=== PATIENT | female | born 1950 | race African-American/Black ===

== ENCOUNTER 2023-03-24 12:39 | Emergency (ER) | payer OTHER ==
--- OUTSIDE RECORDS SUMMARY | 2023-03-24 12:55 | XMS REPORT | Continuity of Care Document ---
:1950 Author Organization [facility] t Address [address] [place] [address] Care Team Providers Name Role Phone Asked, No Pcp Primary Care Physician Unavailable Ángel Campoverde Attending Clinician Unavailable Erasmo Fay Attending Clinician Unavailable RANDALL Attending Clinician Unavailable Fransico Attending Clinician Unavailable Peng Dumont PA-C Attending Clinician [phone] PENG DUMONT Attending Clinician Unavailable Sara Almendarez Attending Clinician Unavailable Elisabet Waldron Attending Clinician Unavailable Dheeraj Loco Attending Clinician Unavailable [email or web address] Attending Clinician Unavailable Daniel Díaz Attending Clinician Unavailable Parish Rudolph Attending Clinician Unavailable Jameel Viera Attending Clinician Unavailable Britney Winchester Attending Clinician Unavailable Erasmo Fay Admitting Clinician Unavailable RANDALL Admitting Clinician Unavailable Fransico Admitting Clinician Unavailable [email or web address] Admitting Clinician Unavailable Parish Rudolph Admitting Clinician Unavailable Britney W[place]ster Admitting Clinician Unavailable Payers Payer Name Policy Type Policy Number Effective Date Expiration Date S josé [facility] [id number] (MEDICARE REPLACEMENT/ADVANTAGE - PPO) [facility] [id number] [facility] (MEDICARE REPLACEMENT/ADVANTAGE - HMO) Problems Condition Condition Condition Status Onset Resolution Last Treating Co mments Source Name Details Category Date Date Treatment Clinician Date No known No known Disease Metho di active active st problems problems Hospit [facility] Allergies, Adverse Reactions, Alerts Allergy Allergy Status Severity Reaction(s) Onset Inactive Treating Comm ents Source Name Type Date Date Clinician lisinopr DA Active [place] RASH-RAISED 2022-05 [facility] [place] 00:00: [facility] 00 are [place] codeine DA Active MO RASH-HIVES 2022-05 [facility] 1-06 [place] 00:00: [facility] 00 are [place] lisinopr DA Active SV ANGIOEDEMA 2021-05 [facility] 0-23 [place] 00:00: [facility] [address] codeine DA Active U DROWSINESS/v 2021-05 [facility] [place] 0[place] [facility] [address] lisinopr DA Active SV ANGIOEDEMA 2021-0 [facility] 4-10 [place] 00:00: [facility] 00 are [place] codeine DA Active U DROWSINESS/v 2021-0 [facility] [place] 4-10 [place] [facility] 00 [place] lisinopr DA Active U 2020-0 [facility] 6[facility]01 [place] 00:00: [facility] 00 are [place] codeine DA Active U 2020-0 [facility] 6-01 [place] 00:00: [facility] 00 are [place] lisinopr DA Active U UNKNOWN 2020-0 [facility] 6-01 [place] 00:00: [facility] 00 are [place] codeine DA Active U UNKNOWN 2020- [facility] 6-01 [place] 00:00: [facility] 00 are [place] lisinopr DA Active MO 2020-0 [facility] 4-12 [place] 00:[facility] 00 are [place] codeine DA Active MO 2020-0 [facility] 4-12 [place] 00:[facility]: [facility] 00 are [place] lisinopr DA Active MO RASH-RAISED 2020-0 [facility] 4-12 [place] 00:[facility]: [facility] [address] codeine DA Active MO RASH-HIVES 2020-0 [facility] 4-12 [place] 00:00: [facility] [address] lisinopr DA Active MO 2018- [facility] il -14 [place] 00:00: [facility] 00 are [place] codeine DA Active MO 2018- [facility] -14 [place] 00:00: [facility] 00 [place] lisinopr DA Active MO RASH-RAISED 2018- [facility] il -14 [place] 00:00: [facility] 00 are [place] codeine DA Active MO RASH-HIVES 2018- [facility] -14 [place] 00:00: [facility] 00 are [place] Codeine Propensi Active Anaphylaxis 2017-0 Me thodi ty to 8-25 [facility] adverse 00:00: Hospita reaction 00 l s to drug Lisinopr Propensi Active Anaphylaxis 2017-0 M ethodi il ty to 8-25 st adverse 00:00: Hospita reaction 00 l s to drug NO KNOWN Allergy Active [facility] Social History Social Habit Start Date Stop Date Quantity Comments Source Gender identity [facility] Sexual [facility] Alcohol intake 2023-03-02 2023-03-02 Ex-drinker [facility] es 00:00:00 00:00:00 (finding) [facility] History of Social 2023-03-02 2023-03-02 [facility] function 00:00:00 00:00:00 [facility] Tobacco use and 2017-12-24 2017-12-24 Smokeless [facility] exposure 00:00:00 00:00:00 tobacco non-user [facility] Sex Assigned At [birth year] [facility] 00:00:00 00:00:00 [facility] Smoking Status Start Date Stop Date Source Never smoked tobacco [facility] Medications Ordered Filled Start Stop Current Ordering Indication Dosage Frequency Signature Comments Components Source Medication Medication Date Date Medication? Clinician (SIG) Name Name isosorbide 2022-05 Yes 10mg QD [facility] (10 [facility] (ISMO,MONOK 00:00: mg total) M edical ET) 10 MG 00 by mouth Center tablet daily. isosorbide 2022-05 Yes 10mg QD Take [facility] mononitrate 0-28 tablet (10 [facility] (ISMO,MONOK 00:00: mg total) M edical ET) 10 MG 00 by mouth Center tablet daily. Lantus 2022-[address] [facility] [facility] Solostar 0-24 [facility] U-100 00:00: usly. Medical Insulin 100 00 Center unit/mL (3 mL) In Admog 2022-[address] [facility] [facility] SoloStar 0-24 subcutaneo L[facility] U-100 00:00: usly. Medical Insulin 100 00 Center unit/mL In Lantus 2022-[address] [facility] Solostar 0-24 subcutaneo Lukes U-100 00:00: usly. Medical Insulin 100 00 Center unit/mL (3 mL) In Admog 2022-[address] [facility] SoloStar 0-24 subcutaneo Lukes U-100 00:00: usly. Medical Insulin 100 00 Center unit/mL In escitalopra 2022-05 Yes 10mg QD Take [address] m oxalate 0-23 tablet (10 [facility] (LEXAPRO) 00:00: mg total) Med ical 10 MG 00 by mouth Center tablet daily. escitalopra 2022-05 Yes 10mg QD Take [address] m oxalate 0-23 tablet (10 [facility] (LEXAPRO) 00:00: mg total) Med ical 10 MG 00 by mouth Center tablet daily. metoprolol 2022-05 Yes 25mg QD Take 1 [facility] succinate 0-22 tablet (25 [facility] (TOPROL-XL) 00:00: mg total) M edical 25 MG 24 hr 00 by mouth Cent er tablet daily. metoprolol 2022-05 Yes 25mg QD Take 1 [facility] succinate 0-22 tablet (25 [facility] (TOPROL-XL) 00:00: mg total) M edical 25 MG 24 hr 00 by mouth Cent er tablet daily. clopidogreL 2022-05 Yes 75mg QD Take [address] (PLAVIX) 75 0-11 tablet (75 [facility] mg tablet 00:00: mg total) Med ical 00 by mouth Center daily. clopidogreL 2022-05 Yes 75mg QD Take [address] (PLAVIX) 75 0-11 tablet (75 [facility] mg tablet 00:00: mg total) Med ical 00 by mouth Center daily. ezetimibe 2022-05 Yes 10mg QD Take [address] (ZETIA) 10 0-06 tablet (10 [facility] mg tablet 00:00: mg total) Med ical 00 by mouth Center daily. ezetimibe 2022-05 Yes 10mg QD Take [address] (ZETIA) 10 0-06 tablet (10 [facility] mg tablet 00:00: mg total) Med ical 00 by mouth Center daily. No known 2018-0 No No known Metho di medications 12-[address] 01:11: s [facility] l No known 2018-0 No No known Metho di medications 12-[address] 01:11: [facility] l No known 2018-0 No No known Metho di medications 12-[address] 01:11: s [facility] l No known 2018-0 No No known Metho di medications 12-[address] 01:11: s [facility] l No known 2018-0 No No known Metho di medications 12-[address] 01:11: s [facility] l No known 2018-0 No No known Metho di medications 12-[address] 01:11: s [facility] l No known 2018-0 No No known Metho di medications 12-[address] 01:11: s [facility] l No known 2018-0 No No known Metho di medications 12-[address] 01:11: s [facility] l No known 2018-0 No No known Metho di medications 12-[address] 01:11: s [facility] l No known 2018-0 No No known Metho di medications 12-[address] 01:11: s [facility] l No known 2018-0 No No known Metho di medications 12-[address] 01:11: s [facility] l No known No Methodi medications [facility]osp[facility] l Vital Signs Vital Name Observation Time Observation Value Comments Source HEIGHT 2023-03-02 15:25:00 165.1 cm WEIGHT 2023-03-02 15:25:00 54.432 kg HEIGHT 2023-03-02 15:25:00 165.1 cm WEIGHT 2023-03-02 15:25:00 54.432 kg Systolic blood 2023-03-02 15:25:00 130 mm[Hg] [facility] Diastolic blood 2023-03-02 15:25:00 70 mm[Hg] [facility] Heart rate 2023-03-02 15:25:00 70 /min [facility] Body temperature 2023-03-02 15:25:00 36.06 Dilia [facility] Body height 2023-03-02 15:25:00 165.1 cm [facility] Body weight 2023-03-02 15:25:00 54.432 kg [facility] BMI 2023-03-02 15:25:00 19.97 kg/m2 [facility] Procedures Procedure Date / Time Performed Performing Clinician [facility] loraine [id number] 2023-03-10 00:00:00 DESNE [facility] [id number] 2023-03-10 00:00:00 DESNE [facility] [id number] 2023-03-10 00:00:00 DESNE [facility] [id number] 2023-03-10 00:00:00 DESNE [facility] [id number] 2023-03-10 00:00:00 DESNE [facility] [id number] 2023-03-10 00:00:00 DESNE [facility] [id number] 2023-03-08 00:00:00 DESNE [facility] [id number] 2023-03-08 00:00:00 DESNE [facility] [id number] 2023-03-08 00:00:00 DESNE [facility] [id number] 2023-03-08 00:00:00 DESNE [facility] [id number] 2023-03-08 00:00:00 DESNE [facility] [id number] 2023-03-08 00:00:00 DESNE [facility] [id number] 2023-03-08 00:00:00 DESNE [facility] XR FOOT 3 VIEWS LEFT 2023-03-02 17:42:00 Peng Dumont C HI [facility] [id number] 2022-03-12 00:00:00 RZAMI [facility] [id number] 2022-03-11 00:00:00 RZAMI [facility] [id number] 2022-01-31 00:00:00 RZAMI [facility] [id number] 2022-01-29 00:00:00 RZAMI [facility] [id number] 2022-01-29 00:00:00 RZAMI [facility] [id number] 2021-11-29 00:00:00 RUSFR [facility] [id number] 2021-04-07 00:00:00 RZAMI [facility] [id number] 2021-04-07 00:00:00 RZAMI [facility] [id number] 2020-09-30 00:00:00 ALAFA [facility] [id number] 2020-09-30 [id number] 2020-09-30 00:00:00 [facility] Plan of Care Planned Activity Planned Date Details Comments Source Future Scheduled 2024-03-[address] [facility] 00:[facility]00 [facility] Screening (12+) [code = Tobacco Cessation Counseling and Screening (12+)] Future Scheduled 2024-03-[address] [facility] 00:00:00 [facility] Cent[facility] r Screening (12+) [code = Tobacco Cessation Counseling and Screening (12+)] Future Scheduled 2023-03-[address] [facility] 00:00:00 measurement (procedure) [facility] [code = [id number]] Future Scheduled 2023-03-[address] [facility] 00:00:00 measurement (procedure) [facility] [code = [id number]] Future Scheduled 2022-12-30 Influenza Vaccine (#1[facility] [code = Influenza Medical Ce nter Vaccine (#1)] Future Scheduled 2022-12-30 Medicare IPPE (WELCOME [facility] 00:00:00 TO MEDICARE) [code = Medical Center Medicare IPPE (WELCOME TO MEDICARE)] Future Scheduled 2022-12-30 Influenza Vaccine (#1[facility] 00:00:00 [code = Influenza Medical Ce nter Vaccine (#1)] Future Scheduled 2022-12-30 Medicare IPPE (WELCOME [facility] 00:00:00 TO MEDICARE) [code = Medical Center Medicare IPPE (WELCOME TO MEDICARE)] Future Scheduled 2022-12-30 Influenza Vaccine (#1[facility] 00:00:00 [code = Influenza Medical Ce nter Vaccine (#1)] Future Scheduled 2022-12-30 Medicare IPPE (WELCOME [facility] 00:00:00 TO MEDICARE) [code = Medical Center Medicare IPPE (WELCOME TO MEDICARE)] Future Scheduled 2022-12-30 Influenza Vaccine (#1[facility] 00:00:00 [code = Influenza Medical Ce nter Vaccine (#1)] Future Scheduled 2022-12-30 Medicare IPPE (WELCOME [facility] 00:00:00 TO MEDICARE) [code = Medical Center Medicare IPPE (WELCOME TO MEDICARE)] Future Scheduled 2022-05-[address] [facility] 00:00:00 (12+) [code = Medical Center DEPRESSION SCREENING (12+)] Future Scheduled 2022-05-01 FALLS RISK SCREENING [facility] 00:00:00 [code = FALLS RISK Medical C enter SCREENING] Future Scheduled 2022-05-[address] [facility] 00:00:00 (12+) [code = Medical Center DEPRESSION SCREENING (12+)] Future Scheduled 2022-05-01 FALLS RISK SCREENING [facility] 00:00:00 [code = FALLS RISK Medical C enter SCREENING] Future Scheduled 2022-05-[address] [facility] 00:00:00 (12+) [code = Medical Center DEPRESSION SCREENING (12+)] Future Scheduled 2022-05-01 FALLS RISK SCREENING [facility] 00:00:00 [code = FALLS RISK Medical C enter SCREENING] Future Scheduled 2022-05-[address] [facility] 00:00:00 (12+) [code = Medical Center DEPRESSION SCREENING (12+)] Future Scheduled 2022-05-01 FALLS RISK SCREENING [facility] 00:00:00 [code = FALLS RISK Medical C enter SCREENING] Future Scheduled 2017 PNEUMOCOCCAL 65+ YRS ([address] [facility] 00:00:00 - PCV) [code = Medical Cente r PNEUMOCOCCAL 65+ YRS (1 - PCV)] Future Scheduled 2017 PNEUMOCOCCAL 65+ YRS ([address] [facility] 00:00:00 - PCV) [code = Medical Cente r PNEUMOCOCCAL 65+ YRS (1 - PCV)] Future Scheduled 2002 SHINGLES VACCINES ([address] [facility] 00:00[facility]00 [facility] Future Scheduled 2002 SHINGLES VACCINES ([address] [facility] 00:00:00 2) [code = SHINGLES [facility] VACCINES (1 of 2)] Future Scheduled 2002 SHINGLES VACCINES ([address] [facility] 00:00:00 2) [code = SHINGLES [facility] VACCINES (1 of 2)] Future Scheduled 2002 SHINGLES VACCINES ([address] [facility] 00:00:00 2) [code = SHINGLES [facility] VACCINES (1 of 2)] Future Scheduled 1971 DTAP/TDAP/TD [facility]ACCINES [facility] 00:00:00 (1 - Tdap) [code = Medical C enter DTAP/TDAP/TD VACCINES (1 - Tdap)] Future Scheduled 1971 DTAP/TDAP/TD VACCINES [facility] 00:00:00 (1 - Tdap) [code = Medical C enter DTAP/TDAP/TD VACCINES (1 - Tdap)] Future Scheduled 1971 DTAP/TDAP/TD VACCINES [facility] 00:00:00 (1 - Tdap) [code = Medical C enter DTAP/TDAP/TD VACCINES (1 - Tdap)] Future Scheduled 1971 DTAP/TDAP/TD VACCINES [facility] 00:00:00 (1 - Tdap) [code = Medical C enter DTAP/TDAP/TD VACCINES (1 - Tdap)] Future Scheduled 1970 HEPATITIS C [facility]CRE[facility]ING [facility]:00:00 [code = HEPATITIS C Medical Center SCREENING] Future Scheduled 1970 HEPATITIS C [facility] 00:00:00 [code = HEPATITIS C Medical Center SCREENING] Future Scheduled 1970 HEPATITIS C [facility] 00:00:00 [code = HEPATITIS C Medical Center SCREENING] Future Scheduled 1970 HEPATITIS C [facility] 00:00:00 [code = HEPATITIS C Medical Center SCREENING] Future Scheduled [address] [facility] 00:00:00 Counseling and Medical Cente r Screening (12+) [code = Tobacco Cessation Counseling and Screening (12+)] Future Scheduled [address] [facility] 00:00:00 Counseling and Medical Cente r Screening (12+) [code = Tobacco Cessation Counseling and Screening (12+)] Future Scheduled 1962 DIABETIC EYE EXAM [code [facility] 00:00:00 = DIABETIC EYE EXAM] Medical Center Future Scheduled [address] [facility] 00:[facility]:00 examination Medical Center (regime/therapy) [code = 917416275] Future Scheduled 1962 Urine screening for [facility] 00:00:00 protein (procedure) Medical Center [code = 995953735] Future Scheduled 1962 DIABETIC EYE EXAM [code [facility] 00:00:00 = DIABETIC EYE EXAM] Medical Center Future Scheduled [address] [facility] 00:00:00 examination Medical Center (regime/therapy) [code = 513108725] Future Scheduled 1962 Urine screening for [facility] 00:00:00 protein (procedure) Medical Center [code = 837405938] Future Scheduled 1958 PNEUMOCOCCAL 65+ YRS ([address] [facility] 00:00:00 - PCV) [code = Medical Cente r PNEUMOCOCCAL 65+ YRS (1 - PCV)] Future Scheduled 1958 PNEUMOCOCCAL 65+ YRS ([address] [facility] 00:00:00 - PCV) [code = Medical Cente r PNEUMOCOCCAL 65+ YRS (1 - PCV)] Future Scheduled 1952 COVID-19 VACCINE (#1) [facility] 00:[facility]:00 [code = COVID-[address] VACCINE (#1)] Future Scheduled 1950 COVID-19 VACCINE (#1) [facility] 00:00:00 [code = COVID-[address] VACCINE (#1)] Future Scheduled 1950 COVID-19 VACCINE (#1) [facility] 00:00:00 [code = COVID-[address] VACCINE (#1)] Future Scheduled 1950 COVID-19 VACCINE (#1[facility] 00:00:00 [code = COVID-[address] VACCINE (#1)] Future Scheduled 1952 Screening for malignant [facility] 00:00:00 neoplasm of breast Medical C enter (procedure) [code = 520378676] Future Scheduled 1952 CT Colonography (combo) [facility] 00:00:00 [code = CT Colonography [facility] (combo)] Future Scheduled 1952 Screening for malignant [facility] 00:00:00 neoplasm of breast Medical C enter (procedure) [code = 873473877] Future Scheduled 1952 CT Colonography (combo) [facility] 00:00:00 [code = CT Colonography [facility] (combo)] Future Scheduled 1952 Screening for malignant [facility] 00:00:00 neoplasm of colon Medical Ce nter (procedure) [code = 462658365] Future Scheduled 1952 Screening for malignant [facility] 00:00:00 neoplasm of colon Medical Ce nter (procedure) [code = 986531173] Future Scheduled 1952 DXA SCAN [code = DXA [facility] 00:00:00 SCAN] [facility] Future Scheduled 1952 Screening for malignant [facility] 00:00:00 neoplasm of colon Medical Ce nter (procedure) [code = 947920652] Future Scheduled 1952 Screening for malignant [facility] 00:00:00 neoplasm of colon Medical Ce nter (procedure) [code = 959214221] Future Scheduled 1950 Sigmoidoscopy [code = [facility]] [facility] Future Scheduled 1952 Screening for malignant [facility] 00:00:00 neoplasm of colon Medical Ce nter (procedure) [code = 234360842] Future Scheduled 1952 Screening for malignant [facility] 00:00:00 neoplasm of colon Medical Ce nter (procedure) [code = 313989568] Future Scheduled 1952 DXA SCAN [code = DXA [facility] 00:00:00 SCAN] [facility] Future Scheduled 1952 Screening for malignant [facility] 00:00:00 neoplasm of breast Medical C enter (procedure) [code = 804802996] Future Scheduled 1952 CT Colonography (combo) [facility] 00:00:00 [code = CT Colonography [facility] (combo)] Future Scheduled 1952 Screening for malignant [facility] 00:00:00 neoplasm of colon Medical Ce nter (procedure) [code = 542270211] Future Scheduled 1952 Screening for malignant [facility] 00:00:00 neoplasm of colon Medical Ce nter (procedure) [code = 274531907] Future Scheduled 1952 DXA SCAN [code = DXA [facility] 00:00:00 SCAN] [facility] Future Scheduled 1952 Screening for malignant [facility] 00:00:00 neoplasm of colon Medical Ce nter (procedure) [code = 854706043] Future Scheduled 1952 Screening for malignant [facility] 00:00:00 neoplasm of colon Medical Ce nter (procedure) [code = 156833783] Future Scheduled 1952 Sigmoidoscopy [code = [facility] S[facility]oscopy] [facility] Future Scheduled 1952 Screening for malignant [facility] 00:00:00 neoplasm of colon Medical Ce nter (procedure) [code = 348635315] Future Scheduled 1952 Screening for malignant [facility] 00:00:00 neoplasm of colon Medical Ce nter (procedure) [code = 332776193] Future Scheduled 1952 Sigmoidoscopy [code = [facility] 00:[facility] Sigmoidoscopy] Medical Cente r Future Scheduled 1952 Screening for malignant [facility] 00:00:00 neoplasm of breast Medical C enter (procedure) [code = 883739360] Future Scheduled 1952 CT Colonography (combo) [facility] 00:00:00 [code = CT Colonography [facility] (combo)] Future Scheduled 1952 Screening for malignant [facility] 00:00:00 neoplasm of colon Medical Ce nter (procedure) [code = 576425151] Future Scheduled 1952 Screening for malignant [facility] 00:00:00 neoplasm of colon Medical Ce nter (procedure) [code = 484590844] Future Scheduled 1952 DXA SCAN [code = DXA [facility] 00:00:00 SCAN] [facility] Future Scheduled 1952 Screening for malignant [facility] 00:00:00 neoplasm of colon Medical Ce nter (procedure) [code = 700251254] Future Scheduled 1952 Screening for malignant [facility] 00:00:00 neoplasm of colon Medical Ce nter (procedure) [code = 875874426] Future Scheduled 1952 Sigmoidoscopy [code = [facility] 00:[facility] Sigmoidoscopy] Medical Cente r Encounters Start End Encounter Admission Attending Care Care Encounter Source Date/Time Date/Time Type Type Clinicians Facility Department ID 2023-03-01 Inpatient Ángel Garcia [facility] INF [id number] [facility] 11:00:00 57 [facility] 2020-08-10 Inpatient [facility] [id number] [facility] 12:44:02 21 [facility] 2019-07-18 Inpatient [facility] JIMENEZ [id number] [facility] 20:50:00 92 [facility] 2023-03-062023-03-11 Inpatient EM Rjocelynnsnicki, BOB TELE [id number] [facility] 21:30:00 10:49:00 Erasmo 24 [facility] are [facility] 2023-03-09 2023-03-09 Outpatient DEBROECK_J_ VFP VFP [id number] [facility] 00:00:00 00:00:00 DANIELA [id number] Family Practic e 2023-03-08 2023-03-08 Outpatient AO_Mills_Br AOSM AOSM [id number] [place] 00:00:00 00:00:00 Ryan [id number] [facility] 2023-03-08 2023-03-08 Outpatient AO_Mills_Br AOSM AOSM [id number] [place] 00:00:00 00:00:00 Ryan [id number] [facility] 2023-03-02 2023-03-02 [id number] [facility] 15:30:00 16:22:[address] [facility] 2023-03-02 2023-03-02 Office [facility] [id number] 15:30:00 16:22:[address] [facility] 2023-03-01 2023-03-01 [facility] [id number] 00:[facility]:00 00:00:00 [facility] 2023-02-28 2023-02-28 Outpatient Ángel Garcia BOB INF [id number] [facility] 09:54:00 00:00:00 22 [facility] 2023-02-10 2023-02-10 Emergency EM Erickson, BOB GAONA [id number] [facility] 20:11:00 23:04:00 Sara 96 [facility] 2022-09-01 2022-09-01 Emergency EM Emetarom, BOB GAONA [id number] [facility] 17:43:00 22:18:00 Elisabet 92 [facility] are [facility] 2022-08-01 2022-08-04 Inpatient EM Rzasnicki, BOB GANNON [id number] [facility] 11:08:00 17:08:00 Erasmo Mock [facility] 2022-07-04 2022-07-04 Emergency EM Dheeraj Loco BOB GAONA [id number] [facility] 02:41:00 08:51:00 43 [facility] 2022-07-03 2022-07-03 Emergency EM Dheeraj Loco BOB GAONA [id number] [facility] 06:37:00 15:29:00 42 [facility] are [facility] 2022-06-09 2022-06-09 Emergency EM Dheeraj Loco BOB GAONA [id number] [facility] 21:37:00 22:55:00 07 [facility] 2022-06-07 2022-06-07 Outpatient [id number] DISP [id number] [id number] Dispatc 00:00:00 00:00:00 [id number] [facility] 2022-05-19 2022-05-21 Inpatient EM Rzasnicki, BOB TELE [id number] [facility] 04:32:00 17:10:00 Erasmo Medrano [facility] 2022-04-18 2022-04-18 Outpatient EricksonPORFIRIONW REF [id number] [facility] 14:46:00 14:46:00 Sara 93 [facility] are [facility] 2022-04-18 2022-04-18 Emergency EM EricksonBOB [id number] [facility] 02:15:00 07:42:00 Sara 64 [facility] 2022-04-08 2022-04-08 Outpatient DEBROECK_J VFP VFP [id number] [facility] 00:00:00 00:00:00 [id number] [facility] 2022-03-18 2022-03-18 Outpatient DEBROECK_J VFP VFP [id number] [facility] 00:00:00 00:00:00 [id number] Family Practic e 2022-03-11 2022-03-14 Inpatient EM Rzasnicki, HCANC TELE [id number] [facility] 13:29:00 14:43:00 Erasmo 52 [facility] 2022-02-20 2022-02-22 Inpatient EM Rzasnicki, HCANC TELE [id number] [facility] 14:30:00 19:11:00 Erasmo 56 [facility] 2022-01-29 2022-02-08 Inpatient EM Rzasnicki, HCANC TELE [id number] [facility] 17:09:00 19:56:00 Erasmo 32 [facility] are [facility] 2022-01-30 2022-01-30 Outpatient Rzasnicki, HCANW REF [id number] [facility] 16:53:00 16:53:00 Erasmo 60 [facility] are [facility] 2021-11-29 2021-11-30 Inpatient EM Rzasnicki, HCANC MAS [id number] [facility] 01:31:00 11:09:00 Erasmo 06 [facility] 2021-11-29 2021-11-30 Inpatient EM Rzasnicki, HCANC MAS [id number] [facility] 01:31:00 11:09:00 Erasmo [id number] [facility] 2021-11-28 2021-11-28 Outpatient Díaz, Daniel HCANW REF [id number] [facility] 16:55:00 16:55:00 31 [facility] are [facility] 2021-11-28 2021-11-28 Emergency EM Díaz, Daniel HCANC [facility] [id number] [facility] 11:40:00 11:40:00 [id number] [facility] 2021-11-06 2021-11-09 Inpatient EM Rzasnicki, HCANC TELE [id number] [facility] 10:39:00 15:43:00 Erasmo 46 [facility] 2021-11-06 2021-11-09 Inpatient EM Rzasnicki, HCANC TELE [id number] [facility] 10:39:00 15:43:00 Erasmo [id number] [facility] 2021-10-01 2021-10-03 Inpatient EM Rzasnicki, [facility] TELE [id number] [facility] 22:02:00 16:45:00 Erasmo 95 [facility] 2021-10-01 2021-10-03 Inpatient EM Rzasnicki, [facility] TELE [id number] [facility] 22:02:00 16:45:00 Erasmo [id number] [facility] 2021-08-07 2021-08-09 Inpatient EM Ronni, Parish [facility] TELE [id number] [facility] 20:33:00 16:30:00 24 [facility] 2021-04-06 2021-04-09 Inpatient EM Rzasnicki, [facility] TELE [id number] [facility] 15:03:00 14:08:00 Erasmo 96 [facility] 2020-12-22 2020-12-22 Emergency EM Aylin, [facility] JIMENEZ [id number] [facility] 11:18:00 15:26:00 Jameel 91 [facility] 2020-09-29 2020-10-02 Inpatient EM Ranulfo, [facility] TELE [id number] [facility] 01:16:00 16:52:00 Rati 78 [facility] Results Test Description Test Time Test Comments Results Result Comments Source COMPREHENSIVE METABOLIC PANEL 2023-03-11 10:17:00 Test Item Value Reference Range Interpretation Comme nts SODIUM (test code = NA) 133 mmol/L 135-145 L POTASSIUM (test code = K) 3.8 mmol/L 3.5-5.1 N CHLORIDE (test code = CL) 101 mmol/L 98-107 N CARBON DIOXIDE (test code = 28 mmol/L 21-32 N CO2) ANION GAP (test code = GAP) 7.8 2.0-16.0 N GLUCOSE (test code = GLU) 164 mg/dL 65-99 H BLOOD UREA NITROGEN (test 19 mg/dL 4-23 N code = BUN) GLOMERULAR FILTRATION RATE 54 ml/min >60 L T he Glomerular Filtration Rate is a (test code = GFR) calculated parameterbased on serum Creatinine, pat ient age and sex. GFR valuesless than 60 mL/min/1.73 square meters a re indicative ofChronic Kidne y Disease. Values less than 15 mL /min/1.73square meters indicate Kidney failure. The calculation for GFR is based on the CKD-EPI (202) calculation. This formulais race indifferent and is the recommended formula for GFRby the National [facility] for Adults.The GFR will not calculate if the sex is u nknown or if thepatient's ag e is <18 years. CREATININE (test code = 1.1 mg/dL 0.6-1.5 N CREAT) BUN/CREATININE RATIO (test 17.3 12.0-20.0 N code = BUN/CREA) TOTAL PROTEIN (test code = 7.9 g/dL 6.4-8.2 N PROT) ALBUMIN (test code = ALB) 2.3 g/dL 3.4-5.0 L CALCIUM (test code = CA) 8.6 mg/dL 8.5-10.1 N BILIRUBIN TOTAL (test code 0.4 mg/dL 0.2-1.2 N U se of this assay is not = BILT) recommended for patients undergoingtreat ment with Eltrombopag due to the potential for falselyelev ated results. SGOT/AST (test code = AST) 14 U/L 15-37 L SGPT/ALT (test code = ALT) 15 U/L 6-50 N ALKALINE PHOSPHATASE (test 89 U/L 45-117 N code = ALKP) VANCOMYCIN [id number] 10:17:00 Test Item Value Reference Range Interpretation Comments VANCOMYCIN TROUGH (test code = 19.4 ug/mL 10.0-20.0 N VANCT) [id number] 09:56:00 Test Item Value Reference Range Interpretation Comments GLUBED (test 158 mg/dL 70-105 H Intravenous adm inistration code = GLUBED) of N-acetylcy steine which resultsin blood concentrations >5 mg/dL will cause overestim ationof blood glucose results . Do not use during intraven ousinfusion of N'acetylcyst eine. CBC W/AUTO [id number] 09:18:00 Test Item Value Reference Range Interpretation Comments WHITE BLOOD CELL (test code = 7.2 10 3/uL 4.5-11.0 N WBC) RED BLOOD CELL (test code = 3.34 10 6/uL 3.50-5.50 L RBC) HEMOGLOBIN (test code = HGB) 10.1 g/dL 12.0-16.0 L HEMATOCRIT (test code = HCT) 30.0 % 37.0-55.0 L MEAN CELL VOLUME (test code = 90 fL 81-102 N MCV) MEAN CELL HGB (test code = 30.2 pg 26.0-34.0 N MCH) MEAN CELL HGB CONCENTRATION 33.7 g/dL 31.0-37.0 N (test code = MCHC) RED CELL DISTRIBUTION WIDTH 14.1 % 11.6-14.4 N (test code = RDW) PLATELET COUNT (test code = 257 10 3/uL 150-400 N PLT) MEAN PLATELET VOLUME (test 11.0 fL 9.0-12.6 N code = MPV) NEUTROPHIL % (test code = NT%) 69.0 % 33.0-76.0 N IMMATURE GRANULOCYTE % (test 0.4 % 0.0-1.0 N code = IG%) LYMPHOCYTE % (test code = LY%) 15.0 % 14.0-56.4 N MONOCYTE % (test code = MO%) 10.5 % 0.0-12.9 N EOSINOPHIL % (test code = EO%) 4.4 % 0.0-7.0 N BASOPHIL % (test code = BA%) 0.7 % 0-2.0 N NUCLEATED RBC % (test code = 0.0 % 0-0.2 N NRBC%) NEUTROPHIL # (test code = NT#) 4.97 10 3/uL 1.5-7.0 N IMMATURE GRANULOCYTE # (test 0.030 x10 3/uL 0.000-0.100 N code = IG#) LYMPHOCYTE # (test code = LY#) 1.08 10 3/uL 1.50-4.00 L MONOCYTE # (test code = MO#) 0.76 10 3/uL 0.20-0.80 N EOSINOPHIL # (test code = EO#) 0.32 10 3/uL 0.0-0.5 N BASOPHIL # (test code = BA#) 0.05 10 3/uL 0.0-0.1 N NUCLEATED RBC # (test code = 0.000 10 3/uL 0.000-0.012 N NRBC#) [id number] 08:06:00 Test Item Value Reference Range Interpretation Comments GLUBED (test 168 mg/dL 70-105 H Intravenous adm inistration code = GLUBED) of N-acetylcy steine which resultsin blood concentrations >5 mg/dL will cause overestim ationof blood glucose results . Do not use during intraven ousinfusion of N'acetylcyst eine. BASIC METABOLIC [id number] 07:20:00 Test Item Value Reference Range Interpretation Comments SODIUM (test code = 133 mmol/L 135-145 L NA) POTASSIUM (test code 3.8 mmol/L 3.5-5.1 N = K) CHLORIDE (test code 101 mmol/L 98-107 N = CL) CARBON DIOXIDE (test 28 mmol/L 21-32 N code = CO2) ANION GAP (test code 7.8 2.0-16.0 N = GAP) GLUCOSE (test code = 175 mg/dL 65-99 H GLU) BLOOD UREA NITROGEN 19 mg/dL 4-23 N (test code = BUN) GLOMERULAR 49 ml/min >60 L The Glomerular FILTRATION RATE Filtration R ate is a (test code = GFR) calculated parameterbased on serum Creatinine, pat ient age and sex. GFR va luesless than 60 mL/min/ 1.73 square meters a re indicative ofCh ronic Kidney Disease. Values less than 15 mL/min/1.73squa re meters indicate Kidney failure. The calculation for GFR is based on the CK D-EPI (2020) calculat ion. This formulais race indifferent and is the recommended for samantha for GFRby the Nat n[facility] on for Adults.The GFR will not calculate if th e sex is unknown or if thepatient's ag e is <18 years. CREATININE (test 1.2 mg/dL 0.6-1.5 N code = CREAT) BUN/CREATININE RATIO 15.8 12.0-20.0 N (test code = BUN/CREA) CALCIUM (test code = 8.8 mg/dL 8.5-10.1 N CA) [id number] 21:04:00 Test Item Value Reference Range Interpretation Comments GLUBED (test 146 mg/dL 70-105 H Intravenous adm inistration code = GLUBED) of N-acetylcy steine which resultsin blood concentrations >5 mg/dL will cause overestim ationof blood glucose results . Do not use during intraven ousinfusion of N'acetylcyst eine. [id number] 12:53:00 Test Item Value Reference Range Interpretation Comments GLUBED (test 147 mg/dL 70-105 H Intravenous adm inistration code = GLUBED) of N-acetylcy steine which resultsin blood concentrations >5 mg/dL will cause overestim ationof blood glucose results . Do not use during intraven ousinfusion of N'acetylcyst eine. [id number] 12:34:00 Test Item Value Reference Range Interpretation Comments GLUBED (test 53 mg/dL 70-105 L Intravenous adm inistration of code = GLUBED) N-acetylcyste ine which resultsin blood concentrations >5 mg/dL will cause overestim ationof blood glucose results . Do not use during intraven ousinfusion of N'acetylcystein e. [id number] 11:16:00 Test Item Value Reference Range Interpretation Comments GLUBED (test 62 mg/dL 70-105 L Intravenous adm inistration of code = GLUBED) N-acetylcyste ine which resultsin blood concentrations >5 mg/dL will cause overestim ationof blood glucose results . Do not use during intraven ousinfusion of N'acetylcystein e. [id number] 07:54:00 Test Item Value Reference Range Interpretation Comments GLUBED (test 151 mg/dL 70-105 H Intravenous adm inistration code = GLUBED) of N-acetylcy steine which resultsin blood concentrations >5 mg/dL will cause overestim ationof blood glucose results . Do not use during intraven ousinfusion of N'acetylcyst eine. BASIC METABOLIC [id number] 06:21:00 Test Item Value Reference Range Interpretation Comments SODIUM (test code = 131 mmol/L 135-145 L NA) POTASSIUM (test code 3.8 mmol/L 3.5-5.1 N = K) CHLORIDE (test code 99 mmol/L 98-107 N = CL) CARBON DIOXIDE (test 26 mmol/L 21-32 N code = CO2) ANION GAP (test code 9.8 2.0-16.0 N = GAP) GLUCOSE (test code = 267 mg/dL 65-99 H GLU) BLOOD UREA NITROGEN 22 mg/dL 4-23 N (test code = BUN) GLOMERULAR 44 ml/min >60 L The Glomerular FILTRATION RATE Filtration R ate is a (test code = GFR) calculated parameterbased on serum Creatinine, pat ient age and sex. GFR va luesless than 60 mL/min/ 1.73 square meters a re indicative ofCh ronic Kidney Disease. Values less than 15 mL/min/1.73squa re meters indicate Kidney failure. The calculation for GFR is based on the CK D-EPI (2020) calculat ion. This formulais race indifferent and is the recommended for samantha for GFRby the Nat[facility] n[facility]ati on for Adults.The GFR will not calculate if th e sex is unknown or if thepatient's ag e is <18 years. CREATININE (test 1.3 mg/dL 0.6-1.5 N code = CREAT) BUN/CREATININE RATIO 16.9 12.0-20.0 N (test code = BUN/CREA) CALCIUM (test code = 8.6 mg/dL 8.5-10.1 N CA) [id number] 06:21:00 Test Item Value Reference Range Interpretation Comments VANCOMYCIN (test code = VANCO) 8.7 ug/mL 5.0-40.0 N [id number] 05:32:00 Test Item Value Reference Range Interpretation Comments GLUBED (test 221 mg/dL 70-105 H Intravenous adm inistration code = GLUBED) of N-acetylcy steine which resultsin blood concentrations >5 mg/dL will cause overestim ationof blood glucose results . Do not use during intraven ousinfusion of N'acetylcyst eine. [id number] 00:22:00 Test Item Value Reference Range Interpretation Comments GLUBED (test 436 mg/dL 70-105 HH CRITICAL RESULT - TESTING code = GLUBED) PERFORMED BY PRIMARY CAREGIVERIntrav enous administration of N-acetylcystein e which resultsin blood concentrations >5 mg/dL will cause overestim ationof blood glucose results . Do not use during intraven ousinfusion of N'acetylcystein e. [id number] 23:55:00 Test Item Value Reference Range Interpretation Comments GLUBED (test 469 mg/dL 70-105 HH CRITICAL RESULT - TESTING code = GLUBED) PERFORMED BY PRIMARY CAREGIVERIntrav enous administration of N-acetylcystein e which resultsin blood concentrations >5 mg/dL will cause overestim ationof blood glucose results . Do not use during intraven ousinfusion of N'acetylcystein e. [id number] 19:50:00 Test Item Value Reference Range Interpretation Comments GLUBED (test 287 mg/dL 70-105 H Intravenous adm inistration code = GLUBED) of N-acetylcy steine which resultsin blood concentrations >5 mg/dL will cause overestim ationof blood glucose results . Do not use during intraven ousinfusion of N'acetylcyst eine. [id number] 16:21:00 Test Item Value Reference Range Interpretation Comments GLUBED (test 321 mg/dL 70-105 H Intravenous adm inistration code = GLUBED) of N-acetylcy steine which resultsin blood concentrations >5 mg/dL will cause overestim ationof blood glucose results . Do not use during intraven ousinfusion of N'acetylcyst eine. VANCOMYCIN [id number] 16:13:00 Test Item Value Reference Range Interpretation Comments VANCOMYCIN TROUGH (test code = 14.8 ug/mL 10.0-20.0 N VANCT) [id number] 12:06:00 Test Item Value Reference Range Interpretation Comments GLUBED (test 217 mg/dL 70-105 H Intravenous adm inistration code = GLUBED) of N-acetylcy steine which resultsin blood concentrations >5 mg/dL will cause overestim ationof blood glucose results . Do not use during intraven ousinfusion of N'acetylcyst eine. [id number] 10:11:00 Test Item Value Reference Range Interpretation Comments GLUBED (test 106 mg/dL 70-105 H Intravenous adm inistration code = GLUBED) of N-acetylcy steine which resultsin blood concentrations >5 mg/dL will cause overestim ationof blood glucose results . Do not use during intraven ousinfusion of N'acetylcyst eine. [id number] 07:45:00 Test Item Value Reference Range Interpretation Comments GLUBED (test 116 mg/dL 70-105 H Intravenous adm inistration code = GLUBED) of N-acetylcy steine which resultsin blood concentrations >5 mg/dL will cause overestim ationof blood glucose results . Do not use during intraven ousinfusion of N'acetylcyst eine. COMPREHENSIVE METABOLIC [id number] 07:29:00 Test Item Value Reference Range Interpretation Comments SODIUM (test code 134 mmol/L 135-145 L = NA) POTASSIUM (test 3.8 mmol/L 3.5-5.1 N code = K) CHLORIDE (test 102 mmol/L 98-107 N code = CL) CARBON DIOXIDE 26 mmol/L 21-32 N (test code = CO2) ANION GAP (test 9.8 2.0-16.0 N code = GAP) GLUCOSE (test 137 mg/dL 65-99 H code = GLU) BLOOD UREA 15 mg/dL 4-23 N NITROGEN (test code = BUN) GLOMERULAR >=60 max >60 The Glomerular FILTRATION RATE estimate Filtration R ate is a (test code = GFR) ml/min calculated parameterbased on serum Creatinine, pat ient age and sex. GFR va luesless than 60 mL/min/ 1.73 square meters a re indicative ofCh ronic Kidney Disease. Values less than 15 mL/min/1.73squa re meters indicate Kidney failure. The calculation forGFR is based on the CKD-EPI (2020) calculat ion. This formulais race indifferent and is the recommended for samantha for GFRby the [facility] on for Adults.The GFR will not calculate if th e sex is unknown or if thepatient's ag e is <18 years. CREATININE (test 1.0 mg/dL 0.6-1.5 N code = CREAT) BUN/CREATININE 15.0 12.0-20.0 N RATIO (test code = BUN/CREA) TOTAL PROTEIN 7.7 g/dL 6.4-8.2 N (test code = PROT) ALBUMIN (test 2.4 g/dL 3.4-5.0 L code = ALB) CALCIUM (test 8.5 mg/dL 8.5-10.1 N code = CA) BILIRUBIN TOTAL 0.9 mg/dL 0.2-1.2 N Use of this assay is not (test code = recommended for patients BILT) undergoingtreat ment with Eltrombopag due to the potential for falselyelevated results. SGOT/AST (test 23 U/L 15-37 N code = AST) SGPT/ALT (test 15 U/L 6-50 N code = ALT) ALKALINE 88 U/L 45-117 N PHOSPHATASE (test code = ALKP) CBC W/AUTO [id number] 07:11:00 Test Item Value Reference Range Interpretation Comments WHITE BLOOD CELL (test code = 8.0 10 3/uL 4.5-11.0 N WBC) RED BLOOD CELL (test code = 3.40 10 6/uL 3.50-5.50 L RBC) HEMOGLOBIN (test code = HGB) 10.2 g/dL 12.0-16.0 L HEMATOCRIT (test code = HCT) 30.7 % 37.0-55.0 L MEAN CELL VOLUME (test code = 90 fL 81-102 N MCV) MEAN CELL HGB (test code = 30.0 pg 26.0-34.0 N MCH) MEAN CELL HGB CONCENTRATION 33.2 g/dL 31.0-37.0 N (test code = MCHC) RED CELL DISTRIBUTION WIDTH 14.3 % 11.6-14.4 N (test code = RDW) PLATELET COUNT (test code = 260 10 3/uL 150-400 N PLT) MEAN PLATELET VOLUME (test 10.6 fL 9.0-12.6 N code = MPV) NEUTROPHIL % (test code = NT%) 72.7 % 33.0-76.0 N IMMATURE GRANULOCYTE % (test 0.5 % 0.0-1.0 N code = IG%) LYMPHOCYTE % (test code = LY%) 14.6 % 14.0-56.4 N MONOCYTE % (test code = MO%) 9.9 % 0.0-12.9 N EOSINOPHIL % (test code = EO%) 1.8 % 0.0-7.0 N BASOPHIL % (test code = BA%) 0.5 % 0-2.0 N NUCLEATED RBC % (test code = 0.0 % 0-0.2 N NRBC%) NEUTROPHIL # (test code = NT#) 5.80 10 3/uL 1.5-7.0 N IMMATURE GRANULOCYTE # (test 0.040 x10 3/uL 0.000-0.100 N code = IG#) LYMPHOCYTE # (test code = LY#) 1.16 10 3/uL 1.50-4.00 L MONOCYTE # (test code = MO#) 0.79 10 3/uL 0.20-0.80 N EOSINOPHIL # (test code = EO#) 0.14 10 3/uL 0.0-0.5 N BASOPHIL # (test code = BA#) 0.04 10 3/uL 0.0-0.1 N NUCLEATED RBC # (test code = 0.000 10 3/uL 0.000-0.012 N NRBC#) [id number] 21:35:00 Test Item Value Reference Range Interpretation Comments GLUBED (test 139 mg/dL 70-105 H Intravenous adm inistration code = GLUBED) of N-acetylcy steine which resultsin blood concentrations >5 mg/dL will cause overestim ationof blood glucose results . Do not use during intraven ousinfusion of N'acetylcyst eine. [id number] 21:02:00 Test Item Value Reference Range Interpretation Comments GLUBED (test 58 mg/dL 70-105 L Intravenous adm inistration of code = GLUBED) N-acetylcyste ine which resultsin blood concentrations >5 mg/dL will cause overestim ationof blood glucose results . Do not use during intraven ousinfusion of N'acetylcystein e. [id number] 16:59:00 Test Item Value Reference Range Interpretation Comments GLUBED (test 120 mg/dL 70-105 H Intravenous adm inistration code = GLUBED) of N-acetylcy steine which resultsin blood concentrations >5 mg/dL will cause overestim ationof blood glucose results . Do not use during intraven ousinfusion of N'acetylcyst eine. [id number] 15:48:00 Test Item Value Reference Range Interpretation Comments GLUBED (test 50 mg/dL 70-105 L CRITICAL RESULT - TESTING code = GLUBED) PERFORMED BY PRIMARY CAREGIVERIntrav enous administration of N-acetylcystein e which resultsin blood concentrations >5 mg/dL will cause overestim ationof blood glucose results . Do not use during intraven ousinfusion of N'acetylcystein e. [id number] 12:14:00 Test Item Value Reference Range Interpretation Comments GLUBED (test 82 mg/dL 70-105 N Intravenous adm inistration of code = GLUBED) N-acetylcyste ine which resultsin blood concentrations >5 mg/dL will cause overestim ationof blood glucose results . Do not use during intraven ousinfusion of N'acetylcystein e. [id number] 07:48:00 Test Item Value Reference Range Interpretation Comments GLUBED (test 159 mg/dL 70-105 H Intravenous adm inistration code = GLUBED) of N-acetylcy steine which resultsin blood concentrations >5 mg/dL will cause overestim ationof blood glucose results . Do not use during intraven ousinfusion of N'acetylcyst eine. COMPREHENSIVE METABOLIC [id number] 07:11:00 Test Item Value Reference Range Interpretation Comments SODIUM (test code 136 mmol/L 135-145 N = NA) POTASSIUM (test 4.0 mmol/L 3.5-5.1 N code = K) CHLORIDE (test 101 mmol/L 98-107 N code = CL) CARBON DIOXIDE 29 mmol/L 21-32 N (test code = CO2) ANION GAP (test 10.0 2.0-16.0 N code = GAP) GLUCOSE (test code 176 mg/dL 65-99 H = GLU) BLOOD UREA 19 mg/dL 4-23 N NITROGEN (test code = BUN) GLOMERULAR 54 ml/min >60 L The Glomerular Filtration FILTRATION RATE Rate is a ca lculated (test code = GFR) parameterb ased on serum Creatinine, pat ient age and sex. GFR va luesless than 60 mL/min/ 1.73 square meters a re indicative ofCh ronic Kidney Disease. Values less than 15 mL/min/1.73squa re meters indicate Kidney failure. The calculation forGFR is based on the CK D-EPI (2020) calculat ion. This formulais race indifferent and is the recommended for samantha for GFRby the [facility] for Adults.The GFR will not ca lculate if the sex is unkn own or if thepatient's ag e is <18 years. CREATININE (test 1.1 mg/dL 0.6-1.5 N code = CREAT) BUN/CREATININE 17.3 12.0-20.0 N RATIO (test code = BUN/CREA) TOTAL PROTEIN 7.8 g/dL 6.4-8.2 N (test code = PROT) ALBUMIN (test code 2.4 g/dL 3.4-5.0 L = ALB) CALCIUM (test code 8.7 mg/dL 8.5-10.1 N = CA) BILIRUBIN TOTAL 0.2 mg/dL 0.2-1.2 N Use of this assay is not (test code = BILT) recommend ed for patients undergoingtreat ment with Eltrombopag due to the potential for falselyelevated results. SGOT/AST (test 15 U/L 15-37 N code = AST) SGPT/ALT (test 15 U/L 6-50 N code = ALT) ALKALINE 93 U/L 45-117 N PHOSPHATASE (test code = ALKP) CBC W/AUTO [id number] 06:46:00 Test Item Value Reference Range Interpretation Comments WHITE BLOOD CELL (test code = 6.1 10 3/uL 4.5-11.0 N WBC) RED BLOOD CELL (test code = 3.43 10 6/uL 3.50-5.50 L RBC) HEMOGLOBIN (test code = HGB) 10.3 g/dL 12.0-16.0 L HEMATOCRIT (test code = HCT) 30.8 % 37.0-55.0 L MEAN CELL VOLUME (test code = 90 fL 81-102 N MCV) MEAN CELL HGB (test code = 30.0 pg 26.0-34.0 N MCH) MEAN CELL HGB CONCENTRATION 33.4 g/dL 31.0-37.0 N (test code = MCHC) RED CELL DISTRIBUTION WIDTH 14.1 % 11.6-14.4 N (test code = RDW) PLATELET COUNT (test code = 264 10 3/uL 150-400 N PLT) MEAN PLATELET VOLUME (test 10.2 fL 9.0-12.6 N code = MPV) NEUTROPHIL % (test code = NT%) 60.7 % 33.0-76.0 N IMMATURE GRANULOCYTE % (test 0.5 % 0.0-1.0 N code = IG%) LYMPHOCYTE % (test code = LY%) 24.0 % 14.0-56.4 N MONOCYTE % (test code = MO%) 11.7 % 0.0-12.9 N EOSINOPHIL % (test code = EO%) 2.6 % 0.0-7.0 N BASOPHIL % (test code = BA%) 0.5 % 0-2.0 N NUCLEATED RBC % (test code = 0.0 % 0-0.2 N NRBC%) NEUTROPHIL # (test code = NT#) 3.72 10 3/uL 1.5-7.0 N IMMATURE GRANULOCYTE # (test 0.030 x10 3/uL 0.000-0.100 N code = IG#) LYMPHOCYTE # (test code = LY#) 1.47 10 3/uL 1.50-4.00 L MONOCYTE # (test code = MO#) 0.72 10 3/uL 0.20-0.80 N EOSINOPHIL # (test code = EO#) 0.16 10 3/uL 0.0-0.5 N BASOPHIL # (test code = BA#) 0.03 10 3/uL 0.0-0.1 N NUCLEATED RBC # (test code = 0.000 10 3/uL 0.000-0.012 N NRBC#) [id number] 04:28:00 Test Item Value Reference Range Interpretation Comments GLUBED (test 187 mg/dL 70-105 H Intravenous adm inistration code = GLUBED) of N-acetylcy steine which resultsin blood concentrations >5 mg/dL will cause overestim ationof blood glucose results . Do not use during intraven ousinfusion of N'acetylcyst eine. [id number] 00:23:00 Test Item Value Reference Range Interpretation Comments GLUBED (test 82 mg/dL 70-105 N Intravenous adm inistration of code = GLUBED) N-acetylcyste ine which resultsin blood concentrations >5 mg/dL will cause overestim ationof blood glucose results . Do not use during intraven ousinfusion of N'acetylcystein e. [id number] 21:31:00 Test Item Value Reference Range Interpretation Comments GLUBED (test 87 mg/dL 70-105 N Intravenous adm inistration of code = GLUBED) N-acetylcyste ine which resultsin blood concentrations >5 mg/dL will cause overestim ationof blood glucose results . Do not use during intraven ousinfusion of N'acetylcystein e. [id number] 17:33:00 Test Item Value Reference Range Interpretation Comments GLUBED (test 106 mg/dL 70-105 H Intravenous adm inistration code = GLUBED) of N-acetylcy steine which resultsin blood concentrations >5 mg/dL will cause overestim ationof blood glucose results . Do not use during intraven ousinfusion of N'acetylcyst eine. [id number] 12:09:00 Test Item Value Reference Range Interpretation Comments GLUBED (test 254 mg/dL 70-105 H Intravenous adm inistration code = GLUBED) of N-acetylcy steine which resultsin blood concentrations >5 mg/dL will cause overestim ationof blood glucose results . Do not use during intraven ousinfusion of N'acetylcyst eine. - DUP LE ART UNI [id number] 06:12:00 [facility]PRESS[facility]: DANIELE HINKLE : 1950 Sex: FPatient Name: DANIELE HINKLE Unit No: [id number] EXAMS: CPT CODE: [id number] [place] [id number] EXAM: - [facility] LOCATION: [facility] HISTORY: 72 years-year old Female with PAD W DM FOOT WOUND TECHNIQUE: Grayscale B-mode, color-flow, and spectral Doppler analysis of the left lower extremity arterial vasculature was performed. COMPARISON: 08/16/18 FINDINGS: Left lower extremity artery velocities (cm/s): Common femoral: 79 Deep femoral: 57 biphasic Proximal SFA: 106 Mid SFA: 83 monophasic Distal SFA: 58 monophasic Popliteal: 64 monophasic Posterior tibial: 31 monophasic Peroneal: 36 monophasic Anterior tibial: 58 monophasic Dorsalis pedis:20 monophasic IMPRESSION: 1. Moderate peripheral vascular disease with calcified plaque throughout the left leg. at 0612 Reported and signed by: Erasmo Shepard MD CC: Self Referred; Garry GRIGSBY Technologist: Gia Fernandes Probe: Trscr Dt/Tm: 03/07/2023 (611) by:[email or web address] Electronic Signature Date/Time: 03/07/2023 (611)Orig Print D/T: S: 03/07/2023 (614) Name: DANIELE HINKLE [facility] [place] Phys: [place] [address] : 1950 Age:72 Sex: [place] [address] Loc: NC.5203 1 Exam Date: 03/06/2023 Status: ADM INPH: FAX: PAGE 1 Signed Report LIPID PROFILE (CORONARY RISK)2023-03-06 22:48:00 Test Item Value Reference Range Interpretation Comments TRIGLYCERIDES (test 82 mg/dL 0-149 N code = TRIG) CHOLESTEROL (test code 170 mg/dL 0-200 N = CHOL) CHOLESTEROL/HDL RATIO 3 1-6 N (test code = CHOLHDL) HDL CHOLESTEROL (test 63 mg/dL 40-60 H Accord ing to the code = HDL) [facility] (NIH) an d theNational Cholesterol Edu cation Program (NCEP), an HDLcholesterol >or= 60mg/dL counts as a "negative" risk factor;its pres ence removes one ris k factor from the total count. LIPOPROTEIN LDL (test 94 mg/dL 0-100 N code = LDLC) [id number] 22:22:00 Test Item Value Reference Range Interpretation Comments GLUBED (test 209 mg/dL 70-105 H Intravenous adm inistration code = GLUBED) of N-acetylcy steine which resultsin blood concentrations >5 mg/dL will cause overestim ationof blood glucose results . Do not use during intraven ousinfusion of N'acetylcyst eine. LACTIC [id number] 20:21:00 Test Item Value Reference Range Interpretation Comments LACTIC ACID (test code = LACT) 1.6 mmol/L 0.4-2.0 N COMPREHENSIVE METABOLIC [id number] 20:21:00 Test Item Value Reference Range Interpretation Comments SODIUM (test code 129 mmol/L 135-145 L = NA) POTASSIUM (test 4.0 mmol/L 3.5-5.1 N code = K) CHLORIDE (test 96 mmol/L 98-107 L code = CL) CARBON DIOXIDE 31 mmol/L 21-32 N (test code = CO2) ANION GAP (test 6.0 2.0-16.0 N code = GAP) GLUCOSE (test code 303 mg/dL 65-99 H = GLU) BLOOD UREA 24 mg/dL 4-23 H NITROGEN (test code = BUN) GLOMERULAR 44 ml/min >60 L The Glomerular Filtration FILTRATION RATE Rate is a ca lculated (test code = GFR) parameterb ased on serum Creatinine, pat ient age and sex. GFR va luesless than 60 mL/min/ 1.73 square meters a re indicative ofCh ronic Kidney Disease. Values less than 15 mL/min/1.73squa re meters indicate Kidney failure. The calculation forGFR is based on the CK D-EPI (2020) calculat ion. This formulais race indifferent and is the recommended for samantha for GFRby the [facility] for Adults.The GFR will not ca lculate if the sex is unkn own or if thepatient's ag e is <18 years. CREATININE (test 1.3 mg/dL 0.6-1.5 N code = CREAT) BUN/CREATININE 18.5 12.0-20.0 N RATIO (test code = BUN/CREA) TOTAL PROTEIN 8.4 g/dL 6.4-8.2 H (test code = PROT) ALBUMIN (test code 2.7 g/dL 3.4-5.0 L = ALB) CALCIUM (test code 8.7 mg/dL 8.5-10.1 N = CA) BILIRUBIN TOTAL 0.2 mg/dL 0.2-1.2 N Use of this assay is not (test code = BILT) recommend ed for patients undergoingtreat ment with Eltrombopag due to the potential for falselyelevated results. SGOT/AST (test 15 U/L 15-37 N code = AST) SGPT/ALT (test 19 U/L 6-50 N code = ALT) ALKALINE 120 U/L 45-117 H PHOSPHATASE (test code = ALKP) TROP-I HIGH [id number] 20:21:00 Test Item Value Reference Range Interpretation Comments TROP-I HIGH SENSITIVITY 8 pg/mL 0-53 N CAUT ION: Units of the (test code = TROPIHS) curren t test methodology (pg /mL) differ from the prior test methodolog y (ng/mL) by a fa ctor of 1000. POSITIV E TROPONIN HS IS IDENTIFIED T HE FOLLOWING MALE > OR = 78 ng/mL FEMALE > OR = 53 ng/mL AL L CRITICAL TROPI HS HAVE BEEN IDENTIFIED MALE OR F EMALE > OR = 120 ng/mL CBC W/AUTO [id number] 19:57:00 Test Item Value Reference Range Interpretation Comments WHITE BLOOD CELL (test code = 7.8 10 3/uL 4.5-11.0 N WBC) RED BLOOD CELL (test code = 3.43 10 6/uL 3.50-5.50 L RBC) HEMOGLOBIN (test code = HGB) 10.4 g/dL 12.0-16.0 L HEMATOCRIT (test code = HCT) 31.2 % 37.0-55.0 L MEAN CELL VOLUME (test code = 91 fL 81-102 N MCV) MEAN CELL HGB (test code = 30.3 pg 26.0-34.0 N MCH) MEAN CELL HGB CONCENTRATION 33.3 g/dL 31.0-37.0 N (test code = MCHC) RED CELL DISTRIBUTION WIDTH 13.9 % 11.6-14.4 N (test code = RDW) PLATELET COUNT (test code = 276 10 3/uL 150-400 N PLT) MEAN PLATELET VOLUME (test 10.2 fL 9.0-12.6 N code = MPV) NEUTROPHIL % (test code = NT%) 67.9 % 33.0-76.0 N IMMATURE GRANULOCYTE % (test 1.0 % 0.0-1.0 N code = IG%) LYMPHOCYTE % (test code = LY%) 17.3 % 14.0-56.4 N MONOCYTE % (test code = MO%) 11.3 % 0.0-12.9 N EOSINOPHIL % (test code = EO%) 1.9 % 0.0-7.0 N BASOPHIL % (test code = BA%) 0.6 % 0-2.0 N NUCLEATED RBC % (test code = 0.0 % 0-0.2 N NRBC%) NEUTROPHIL # (test code = NT#) 5.29 10 3/uL 1.5-7.0 N IMMATURE GRANULOCYTE # (test 0.080 x10 3/uL 0.000-0.100 N code = IG#) LYMPHOCYTE # (test code = LY#) 1.35 10 3/uL 1.50-4.00 L MONOCYTE # (test code = MO#) 0.88 10 3/uL 0.20-0.80 H EOSINOPHIL # (test code = EO#) 0.15 10 3/uL 0.0-0.5 N BASOPHIL # (test code = BA#) 0.05 10 3/uL 0.0-0.1 N NUCLEATED RBC # (test code = 0.000 10 3/uL 0.000-0.012 N NRBC#) - XR FOOT 3 + V [id number] 20:46:00 [facility] DAN[facility]LE [facility]INK[facility] : 1950 Sex: FPatient Name: DANIELE HINKLE Unit No: [id number] EXAMS: CPT CODE: [id number] XR FOOT 3 + [place] [address] EXAM: Left foot 3 views AP, lateral and oblique. LOCATION: H 12 HISTORY: L toe fracture FINDINGS: There is a slightly displaced fracture involving the base of the 1st distal phalanx. No other fracture or dislocation is seen. The remaining bony cortices are intact. The joint spaces well-preserv ed. IMPRESSION: Acute traumatic fracture 1st distal phalanx. at 2046 Reported and signed by: Shankar Germain MD CC: Sara Almendarez MD Technologist: Sun Johnson Fluoro Time: DAP (Gy m2): Air Kerma (mGy): Trscr Dt/Tm: 02/10/2023 (2045) by:Jo Electronic Signature Date/Time: 02/10/2023 (2045)Orig Print D/T: S: 02/10/2023 (2048) Name: DANIELE HINKLE [facility] [place] Phys: [id number] -[place] [address] : 1950 Age: 72 Sex: [place] [address] Loc: [place].ERS Exam Date: 02/10/2023 Status: REG ER PH: FAX: PAGE 1 Signed ReportGLUBED 2022-09-01 19:09:00 Test Item Value Reference Range Interpretation Comments GLUBED (test 236 mg/dL 70-105 H Intravenous adm inistration code = GLUBED) of N-acetylcy steine which resultsin blood concentrations >5 mg/dL will cause overestim ationof blood glucose results . Do not use during intraven ousinfusion of N'acetylcyst eine. BASIC METABOLIC [id number] 19:04:00 Test Item Value Reference Range Interpretation Comments SODIUM (test code = 132 mmol/L 135-145 L NA) POTASSIUM (test code 3.4 mmol/L 3.5-5.1 L = K) CHLORIDE (test code 103 mmol/L 98-107 N = CL) CARBON DIOXIDE (test 24 mmol/L 21-32 N code = CO2) ANION GAP (test code 8.4 2.0-16.0 N = GAP) GLUCOSE (test code = 334 mg/dL 65-99 H GLU) BLOOD UREA NITROGEN 23 mg/dL 4-23 N (test code = BUN) GLOMERULAR 49 ml/min >60 L The Glomerular FILTRATION RATE Filtration R ate is a (test code = GFR) calculated parameterbased on serum Creatinine, pat ient age and sex. GFR va luesless than 60 mL/min/ 1.73 square meters a re indicative ofCh ronic Kidney Disease. Values less than 15 mL/min/1.73squa re meters indicate Kidney failure. The calculation for GFR is based on the CK D-EPI (2020) calculat ion. This formulais race indifferent and is the recommended for samantha for GFRby the [facility] on for Adults.The GFR will not calculate if th e sex is unknown or if thepatient's ag e is <18 years. CREATININE (test 1.2 mg/dL 0.6-1.5 N code = CREAT) BUN/CREATININE RATIO 19.2 12.0-20.0 N (test code = BUN/CREA) CALCIUM (test code = 9.0 mg/dL 8.5-10.1 N CA) TROP-I HIGH [id number] 19:04:00 Test Item Value Reference Range Interpretation Comments TROP-I HIGH SENSITIVITY 12 pg/mL 0-53 N CAUT ION: Units of the (test code = TROPIHS) curren t test methodology (pg /mL) differ from the prior test methodolog y (ng/mL) by a fa ctor of 1000. CBC W/AUTO [id number] 18:32:00 Test Item Value Reference Range Interpretation Comments WHITE BLOOD CELL (test code = 7.0 10 3/uL 4.5-11.0 N WBC) RED BLOOD CELL (test code = 3.46 10 6/uL 3.50-5.50 L RBC) HEMOGLOBIN (test code = HGB) 10.2 g/dL 12.0-16.0 L HEMATOCRIT (test code = HCT) 31.8 % 37.0-55.0 L MEAN CELL VOLUME (test code = 92 fL 81-102 N MCV) MEAN CELL HGB (test code = 29.5 pg 26.0-34.0 N MCH) MEAN CELL HGB CONCENTRATION 32.1 g/dL 31.0-37.0 N (test code = MCHC) RED CELL DISTRIBUTION WIDTH 14.0 % 11.6-14.4 N (test code = RDW) PLATELET COUNT (test code = 231 10 3/uL 150-400 N PLT) MEAN PLATELET VOLUME (test 10.6 fL 9.0-12.6 N code = MPV) NEUTROPHIL % (test code = NT%) 74.5 % 33.0-76.0 N IMMATURE GRANULOCYTE % (test 0.4 % 0.0-1.0 N code = IG%) LYMPHOCYTE % (test code = LY%) 14.8 % 14.0-56.4 N MONOCYTE % (test code = MO%) 8.7 % 0.0-12.9 N EOSINOPHIL % (test code = EO%) 1.0 % 0.0-7.0 N BASOPHIL % (test code = BA%) 0.6 % 0-2.0 N NUCLEATED RBC % (test code = 0.0 % 0-0.2 N NRBC%) NEUTROPHIL # (test code = NT#) 5.23 10 3/uL 1.5-7.0 N IMMATURE GRANULOCYTE # (test 0.030 x10 3/uL 0.000-0.100 N code = IG#) LYMPHOCYTE # (test code = LY#) 1.04 10 3/uL 1.50-4.00 L MONOCYTE # (test code = MO#) 0.61 10 3/uL 0.20-0.80 N EOSINOPHIL # (test code = EO#) 0.07 10 3/uL 0.0-0.5 N BASOPHIL # (test code = BA#) 0.04 10 3/uL 0.0-0.1 N NUCLEATED RBC # (test code = 0.000 10 3/uL 0.000-0.012 N NRBC#) [id number] 11:41:00 Test Item Value Reference Range Interpretation Comments GLUBED (test 406 mg/dL 70-105 HH CRITICAL RESULT - TESTING code = GLUBED) PERFORMED BY PRIMARY CAREGIVERIntrav enous administration of N-acetylcystein e which resultsin blood concentrations >5 mg/dL will cause overestim ationof blood glucose results . Do not use during intraven ousinfusion of N'acetylcystein e. [id number] 07:38:00 Test Item Value Reference Range Interpretation Comments GLUBED (test 337 mg/dL 70-105 H Intravenous adm inistration code = GLUBED) of N-acetylcy steine which resultsin blood concentrations >5 mg/dL will cause overestim ationof blood glucose results . Do not use during intraven ousinfusion of N'acetylcyst eine. [id number] 20:51:00 Test Item Value Reference Range Interpretation Comments GLUBED (test 360 mg/dL 70-105 H Intravenous adm inistration code = GLUBED) of N-acetylcy steine which resultsin blood concentrations >5 mg/dL will cause overestim ationof blood glucose results . Do not use during intraven ousinfusion of N'acetylcyst eine. [id number] 17:29:00 Test Item Value Reference Range Interpretation Comments GLUBED (test 459 mg/dL 70-105 HH CRITICAL RESULT - TESTING code = GLUBED) PERFORMED BY PRIMARY CAREGIVERIntrav enous administration of N-acetylcystein e which resultsin blood concentrations >5 mg/dL will cause overestim ationof blood glucose results . Do not use during intraven ousinfusion of N'acetylcystein e. [id number] 10:58:00 Test Item Value Reference Range Interpretation Comments GLUBED (test 427 mg/dL 70-105 CRITICAL RESULT - TESTING code = GLUBED) PERFORMED BY PRIMARY CAREGIVERIntrav enous administration of N-acetylcystein e which resultsin blood concentrations >5 mg/dL will cause overestim ationof blood glucose results . Do not use during intraven ousinfusion of N'acetylcystein e. [id number] 08:19:00 Test Item Value Reference Range Interpretation Comments GLUBED (test 261 mg/dL 70-105 H Intravenous adm inistration code = GLUBED) of N-acetylcy steine which resultsin blood concentrations >5 mg/dL will cause overestim ationof blood glucose results . Do not use during intraven ousinfusion of N'acetylcyst eine. [id number] 19:23:00 Test Item Value Reference Range Interpretation Comments GLUBED (test 234 mg/dL 70-105 H Intravenous adm inistration code = GLUBED) of N-acetylcy steine which resultsin blood concentrations >5 mg/dL will cause overestim ationof blood glucose results . Do not use during intraven ousinfusion of N'acetylcyst eine. [id number] 14:51:00 Test Item Value Reference Range Interpretation Comments GLUBED (test 351 mg/dL 70-105 H Intravenous adm inistration code = GLUBED) of N-acetylcy steine which resultsin blood concentrations >5 mg/dL will cause overestim ationof blood glucose results . Do not use during intraven ousinfusion of N'acetylcyst eine. [id number] 10:59:00 Test Item Value Reference Range Interpretation Comments GLUBED (test 364 mg/dL 70-105 H Intravenous adm inistration code = GLUBED) of N-acetylcy steine which resultsin blood concentrations >5 mg/dL will cause overestim ationof blood glucose results . Do not use during intraven ousinfusion of N'acetylcyst eine. [id number] 09:09:00 Test Item Value Reference Range Interpretation Comments GLUBED (test 158 mg/dL 70-105 H Intravenous adm inistration code = GLUBED) of N-acetylcy steine which resultsin blood concentrations >5 mg/dL will cause overestim ationof blood glucose results . Do not use during intraven ousinfusion of N'acetylcyst eine. BASIC METABOLIC [id number] 06:43:00 Test Item Value Reference Range Interpretation Comments SODIUM (test code 137 mmol/L 135-145 N = NA) POTASSIUM (test 3.8 mmol/L 3.5-5.1 N code = K) CHLORIDE (test 103 mmol/L 98-107 N code = CL) CARBON DIOXIDE 28 mmol/L 21-32 N (test code = CO2) ANION GAP (test 9.8 2.0-16.0 code = GAP) GLUCOSE (test code 146 mg/dL 65-99 H = GLU) BLOOD UREA 33 mg/dL 4-23 H NITROGEN (test code = BUN) GLOMERULAR >=60 max >60 The Glomerular FILTRATION RATE estimate ml/min Filtratio n Rate is a (test code = GFR) calculated parameterbased on serum Creatinin e, patient age and sex. GFR valuesless than 60 mL/min/1.73 square meters are libra cative ofChronic Kidne y Disease. Values less than 15 mL/min/1.73squa re meters indicate Kidney failure. The calculation for GFR is based on the CK D-EPI (2020) calculat ion. This formulais race indifferent and is the recommended formula for GFR by the National Kidney Foundation for Adults.The GFR will not calculate i f the sex is unknown or if thepatient's ag e is <18 years. CREATININE (test 0.9 mg/dL 0.6-1.5 N code = CREAT) BUN/CREATININE 36.7 12.0-20.0 H RATIO (test code = BUN/CREA) CALCIUM (test code 8.9 mg/dL 8.5-10.1 N = CA) CBC W/AUTO [id number] 06:13:00 Test Item Value Reference Range Interpretation Comments WHITE BLOOD CELL (test code = 4.0 10 3/uL 4.5-11.0 L WBC) RED BLOOD CELL (test code = 3.08 10 6/uL 3.50-5.50 L RBC) HEMOGLOBIN (test code = HGB) 9.1 g/dL 12.0-16.0 L HEMATOCRIT (test code = HCT) 28.3 % 37.0-55.0 L MEAN CELL VOLUME (test code = 92 fL 81-102 N MCV) MEAN CELL HGB (test code = 29.5 pg 26.0-34.0 N MCH) MEAN CELL HGB CONCENTRATION 32.2 g/dL 31.0-37.0 N (test code = MCHC) RED CELL DISTRIBUTION WIDTH 13.6 % 11.6-14.4 N (test code = RDW) PLATELET COUNT (test code = 247 10 3/uL 150-400 N PLT) MEAN PLATELET VOLUME (test 11.2 fL 9.0-12.6 N code = MPV) NEUTROPHIL % (test code = NT%) 46.0 % 33.0-76.0 N IMMATURE GRANULOCYTE % (test 0.5 % 0.0-1.0 N code = IG%) LYMPHOCYTE % (test code = LY%) 36.4 % 14.0-56.4 N MONOCYTE % (test code = MO%) 11.4 % 0.0-12.9 N EOSINOPHIL % (test code = EO%) 4.5 % 0.0-7.0 N BASOPHIL % (test code = BA%) 1.2 % 0-2.0 N NUCLEATED RBC % (test code = 0.0 % 0-0.2 N NRBC%) NEUTROPHIL # (test code = NT#) 1.86 10 3/uL 1.5-7.0 N IMMATURE GRANULOCYTE # (test 0.020 x10 3/uL 0.000-0.100 N code = IG#) LYMPHOCYTE # (test code = LY#) 1.47 10 3/uL 1.50-4.00 L MONOCYTE # (test code = MO#) 0.46 10 3/uL 0.20-0.80 N EOSINOPHIL # (test code = EO#) 0.18 10 3/uL 0.0-0.5 N BASOPHIL # (test code = BA#) 0.05 10 3/uL 0.0-0.1 N NUCLEATED RBC # (test code = 0.000 10 3/uL 0.000-0.012 N NRBC#) [id number] 19:40:00 Test Item Value Reference Range Interpretation Comments GLUBED (test 157 mg/dL 70-105 H Intravenous adm inistration code = GLUBED) of N-acetylcy steine which resultsin blood concentrations >5 mg/dL will cause overestim ationof blood glucose results . Do not use during intraven ousinfusion of N'acetylcyst eine. [id number] 16:10:00 Test Item Value Reference Range Interpretation Comments GLUBED (test 216 mg/dL 70-105 H Intravenous adm inistration code = GLUBED) of N-acetylcy steine which resultsin blood concentrations >5 mg/dL will cause overestim ationof blood glucose results . Do not use during intraven ousinfusion of N'acetylcyst eine. HGBA1C - GLYCOSYLATED [id number] 15:23:00 Test Item Value Reference Range Interpretation Comments GLYCOSYLATED 11.8 % 4.5-5.9 H The [place] [employer] HEMOGLOBIN (HA1C) Associatio n recommends a (test code = GLYHGB) therape uticrange of <7.0% Hemoglobin A1c for patients with diabetesmellitu s (Type 2 diabetes). [id number] 13:41:00 Test Item Value Reference Range Interpretation Comments GLUBED (test 348 mg/dL 70-105 H Intravenous adm inistration code = GLUBED) of N-acetylcy steine which resultsin blood concentrations >5 mg/dL will cause overestim ationof blood glucose results . Do not use during intraven ousinfusion of N'acetylcyst eine. [id number] 13:35:00 Test Item Value Reference Range Interpretation Comments GLUBED (test 440 mg/dL 70-105 HH CRITICAL RESULT - TESTING code = GLUBED) PERFORMED BY PRIMARY CAREGIVERIntrav enous administration of N-acetylcystein e which resultsin blood concentrations >5 mg/dL will cause overestim ationof blood glucose results . Do not use during intraven ousinfusion of N'acetylcystein e. - CT HEAD/BRAIN W/O [id number] 11:56:00 [facility] LIZZIE [facility]INKLE : 1950 Sex: FPatient Name: LIZZIE HINKLE Unit No: [id number] EXAMS: CPT CODE: [id number] CT HEAD/BRAIN W/O CONT 20572 CLINICAL INFORMATION: Altered mental status.. Dictation Location: A 1 COMPARISON: 03/11/2022 CT head reported no acute finding. Technique: CT was done in the usual fashion. Sagittal and coronal reconstructions. Examination was performed according to the departmental dose optimization program which includes automated exposure control, adjustment of the mA and/or kVp according to patient size and/or use of interactive reconstruction technique. DLP 1235 mGy-cm. FINDINGS: No focal scalp swelling. Cranium and skull base appear intact. Middle ear cavities, mastoids, and included paranasal sinuses appear clear. The brain shows mild atrophy and deep white matter microvascular changes. Physiologic basal ganglia calcifications. Calcifications in the carotid and vertebral arteries. Once again identified are ocular changes similar to prior. IMPRESSION: 1. Senescent changes in the brain. 2. No acute finding or intracranial mass. 3. Chronic ocular findings unchanged from prior study. at 1156 Reported and signed by: Daniel Guevara, [facility]: Jameel Viera MD Technologist: Maryana Hale CTDI: 51.54 DLP: 1234.8 Trscr Dt/Tm: 08/01/2022 (1156) by:Margie Electronic Signature Date/Time: 08/01/2022 (0415)Orig Print D/T: S: 08/01/2022 (7388) Name: LIZZIE HINKLE [facility] Phys: [place] [address] [address]: 1950 Age: 72 Sex: [place] [address] Loc: [place].ERMED Exam Date: 08/01/2022 Status: ADM IN PH: FAX: PAGE 1 Signed ReportBASIC METABOLIC [id number] 11:47:00 Test Item Value Reference Range Interpretation Comments SODIUM (test code = 128 mmol/L 135-145 L NA) POTASSIUM (test code 4.6 mmol/L 3.5-5.1 N = K) CHLORIDE (test code 97 mmol/L 98-107 L = CL) CARBON DIOXIDE (test 28 mmol/L 21-32 N code = CO2) ANION GAP (test code 7.6 2.0-16.0 N = GAP) GLUCOSE (test code = 560 mg/dL 65-99 HH Critica l Value reported GLU) toFirst Name:EILEEN MARI Last Name:ESTELA Grey RN RESULTS READ BA CK AND VERIFIEDby [id number], on 08/01/22, @ 114 6. BLOOD UREA NITROGEN 43 mg/dL 4-23 H (test code = BUN) GLOMERULAR 34 ml/min >60 L The Glomerular FILTRATION RATE Filtration R ate is a (test code = GFR) calculated parameterbased on serum Creatinine, pat ient age and sex. GFR va luesless than 60 mL/min/ 1.73 square meters a re indicative ofCh ronic Kidney Disease. Values less than 15 mL/min/1.73squa re meters indicate Kidney failure. The calculation for GFR is based on the CK D-EPI (2020) calculat ion. This formulais race indifferent and is the recommended for samantha for GFRby the [facility] Kidney Found[facility] on for Adults.The GFR will not calculate if th e sex is unknown or if thepatient's ag e is <18 years. CREATININE (test 1.6 mg/dL 0.6-1.5 H code = CREAT) BUN/CREATININE RATIO 26.9 12.0-20.0 H (test code = BUN/CREA) CALCIUM (test code = 9.7 mg/dL 8.5-10.1 N CA) LIVER FUNCTION [id number] 11:47:00 Test Item Value Reference Range Interpretation Comments TOTAL PROTEIN 8.8 g/dL 6.4-8.2 H (test code = PROT) ALBUMIN (test code 3.5 g/dL 3.4-5.0 N = ALB) GLOBULIN (test 5.3 g/dL 2.3-3.5 H code = GLOB) BILIRUBIN TOTAL 0.4 mg/dL 0.2-1.2 N Use of this assay is not (test code = BILT) recommend ed for patients undergoingtreat ment with Eltrombopag due to the potential for falselyelevated results. BILIRUBIN DIRECT 0.1 mg/dL 0.0-0.3 N (test code = BILD) BILIRUBIN INDIRECT 0.3 mg/dL 0.0-0.8 N (test code = BILIND) SGOT/AST (test 14 U/L 15-37 L code = AST) SGPT/ALT (test 15 U/L 6-50 N code = ALT) ALKALINE 164 U/L 45-117 H PHOSPHATASE (test code = ALKP) TROP-I HIGH [id number] 11:47:00 Test Item Value Reference Range Interpretation Comments TROP-I HIGH SENSITIVITY 11 pg/mL 0-53 N CAUT ION: Units of the (test code = TROPIHS) curren t test methodology (pg /mL) differ from the prior test methodolog y (ng/mL) by a fa ctor of 1000. LIPID PROFILE (CORONARY RISK)2022-08-01 11:41:00 Test Item Value Reference Range Interpretation Comments TRIGLYCERIDES (test 187 mg/dL 0-149 H Accordin g to the National code = TRIG) Institutes of H ealth ([facility]) and theNational Cholesterol Edu cation Program (NCEP), serumtriglyceri de levels between 150-199 mg/dL are consideredBorde rline High. CHOLESTEROL (test 305 mg/dL 0-200 H code = CHOL) CHOLESTEROL/HDL 5 1-6 N RATIO (test code = CHOLHDL) HDL CHOLESTEROL 63 mg/dL 40-60 H According to the National (test code = HDL) Institutes of Health (NIH) and theNational Cholesterol Edu cation Program (NCEP), an HDLcholesterol >or= 60mg/dL counts as a "negative" risk factor;its presence remove s one risk factor from the total count. LIPOPROTEIN LDL 201 mg/dL 0-100 H (test code = LDLC) - XR CHEST 1 [id number] 11:28:00 HILL [facility] 1950 Sex: FPatient Name: LIZZIE HINKLE Unit No: [id number] EXAMS: CPT CODE: [id number] XR CHEST 1 V 61181 CHEST 1 VIEW: INDICATION: AMS/Neuro Deficit COMPARISON: Comparison is made with prior study 05/19/2022 Location: W1 A single portable AP view of the chest demonstrates a normal cardiomediastinal silhouette. The lung morocho are clear. No apparent pleural effusion nor pneumothorax. The visualized bony structures are unremarkable. IMPRESSION: 1. No acute cardiopulmonary findings seen. at 1128 Reported and signed by: Donald Jean-Baptiste M.D. CC: Jameel Viera MD Technologist: Rosa Maria Song Fluoro Time: DAP (Gy m2): Air Kerma (mGy): Trscr Dt/Tm: 08/01/2022 (1128) by:[email or web address] Electronic Signature Date/Time: 08/01/2022 (1128)Orig Print D/T: S: 08/01/2022 (1131) Name: LIZZIE HINKLE [facility] Phys: [place] [address] : 1950 Age: 72 Sex: [place] [address] Loc: [place].MILTONED Exam Date: 08/01/2022 Status: ADM IN PH: FAX: PAGE 1 Signed ReportCBC W/AUTO [id number] 11:20:00 Test Item Value Reference Range Interpretation Comments WHITE BLOOD CELL (test code = 5.1 10 3/uL 4.5-11.0 N WBC) RED BLOOD CELL (test code = 3.62 10 6/uL 3.50-5.50 N RBC) HEMOGLOBIN (test code = HGB) 10.7 g/dL 12.0-16.0 L HEMATOCRIT (test code = HCT) 33.6 % 37.0-55.0 L MEAN CELL VOLUME (test code = 93 fL 81-102 N MCV) MEAN CELL HGB (test code = 29.6 pg 26.0-34.0 N MCH) MEAN CELL HGB CONCENTRATION 31.8 g/dL 31.0-37.0 N (test code = MCHC) RED CELL DISTRIBUTION WIDTH 13.3 % 11.6-14.4 N (test code = RDW) PLATELET COUNT (test code = 308 10 3/uL 150-400 N PLT) MEAN PLATELET VOLUME (test 11.2 fL 9.0-12.6 N code = MPV) NEUTROPHIL % (test code = NT%) 61.2 % 33.0-76.0 N IMMATURE GRANULOCYTE % (test 0.6 % 0.0-1.0 N code = IG%) LYMPHOCYTE % (test code = LY%) 26.5 % 14.0-56.4 N MONOCYTE % (test code = MO%) 8.5 % 0.0-12.9 N EOSINOPHIL % (test code = EO%) 2.4 % 0.0-7.0 N BASOPHIL % (test code = BA%) 0.8 % 0-2.0 N NUCLEATED RBC % (test code = 0.0 % 0-0.2 N NRBC%) NEUTROPHIL # (test code = NT#) 3.09 10 3/uL 1.5-7.0 N IMMATURE GRANULOCYTE # (test 0.030 x10 3/uL 0.000-0.100 N code = IG#) LYMPHOCYTE # (test code = LY#) 1.34 10 3/uL 1.50-4.00 L MONOCYTE # (test code = MO#) 0.43 10 3/uL 0.20-0.80 N EOSINOPHIL # (test code = EO#) 0.12 10 3/uL 0.0-0.5 N BASOPHIL # (test code = BA#) 0.04 10 3/uL 0.0-0.1 N NUCLEATED RBC # (test code = 0.000 10 3/uL 0.000-0.012 N NRBC#) [id number] 11:02:00 Test Item Value Reference Range Interpretation Comments GLUBED (test 481 mg/dL 70-105 HH CRITICAL RESULT - TESTING code = GLUBED) PERFORMED BY PRIMARY CAREGIVERIntrav enous administration of N-acetylcystein e which resultsin blood concentrations >5 mg/dL will cause overestim ationof blood glucose results . Do not use during intraven ousinfusion of N'acetylcystein e. [id number] 08:36:00 Test Item Value Reference Range Interpretation Comments GLUBED (test 211 mg/dL 70-105 H Intravenous adm inistration code = GLUBED) of N-acetylcy steine which resultsin blood concentrations >5 mg/dL will cause overestim ationof blood glucose results . Do not use during intraven ousinfusion of N'acetylcyst eine. UA RFLX MICR CULT IF [id number] 05:26:00 Test Item Value Reference Range Interpretation Comments UA COLOR (test code = COLU) YELLOW YELLOW UA APPEARANCE (test code = Slightly-Cloudy CLEAR APPU) UA GLUCOSE DIPSTICK (test 3+ NEGATIVE A code = DGLUU) UA BILIRUBIN DIPSTICK (test NEGATIVE NEGATIVE code = BILU) UA KETONE DIPSTICK (test code NEGATIVE NEGATIVE = KETU) UA SPECIFIC GRAVITY (test 1.022 1.005-1.025 N code = SGU) UA BLOOD DIPSTICK (test code 2+ NEGATIVE A = EVELIN) UA PH DIPSTICK (test code = 5.0 5.0-8.0 KALEY) UA PROTEIN DIPSTICK (test NEGATIVE NEGATIVE code = PROU) UA UROBILINOGEN DIPSTICK NEGATIVE EU/dL 0.1-0.2 (test code = URO) UA NITRITE DIPSTICK (test NEGATIVE NEGATIVE code = EDMUND) UA LEUKOCYTE ESTERASE NEGATIVE NEGATIVE DIPSTICK (test code = LEUU) UA MICROSCOPIC NEEDED? (test YES NO A code = UAMICRO) UA WBC (test code = WBCU) 3-5 /hpf 0-3 A UA RBC (test code = RBCU) 3-5 /hpf 0-3 A UA BACTERIA (test code = RARE /HPF NEGATIVE BACU) UA SQUAMOUS CELLS (test code RARE /HPF FEW = SQU) UA MUCUS (test code = MUCU) OCCASIONAL /lpf Indication for culture: RiskForSepsis-no oth srcSpecimen Description: CLEAN [id number] 05:06:00 Test Item Value Reference Range Interpretation Comments GLUBED (test 449 mg/dL 70-105 HH CRITICAL RESULT - TESTING code = GLUBED) PERFORMED BY PRIMARY CAREGIVERIntrav enous administration of N-acetylcystein e which resultsin blood concentrations >5 mg/dL will cause overestim ationof blood glucose results . Do not use during intraven ousinfusion of N'acetylcystein e. BASIC METABOLIC [id number] 04:49:00 Test Item Value Reference Range Interpretation Comments SODIUM (test code = 132 mmol/L 135-145 L NA) POTASSIUM (test code 3.8 mmol/L 3.5-5.1 N = K) CHLORIDE (test code 101 mmol/L 98-107 N = CL) CARBON DIOXIDE (test 26 mmol/L 21-32 N code = CO2) ANION GAP (test code 8.8 2.0-16.0 N = GAP) GLUCOSE (test code = 608 mg/dL 65-99 HH Critica l Value reported GLU) toFirst Name:[facility] Last Name:DANI KUMAR READ BACK AND VERIFIEDby [id number], on 07/04/22, @ 044 9. BLOOD UREA NITROGEN 36 mg/dL 4-23 H (test code = BUN) GLOMERULAR 44 ml/min >60 L The Glomerular FILTRATION RATE Filtration R ate is a (test code = GFR) calculated parameterbased on serum Creatinine, pat ient age and sex. GFR va luesless than 60 mL/min/ 1.73 square meters a re indicative ofCh ronic Kidney Disease. Values less than 15 mL/min/1.73squa re meters indicate Kidney failure. The calculation for GFR is based on the CK D-EPI (2020) calculat ion. This formulais race indifferent and is the recommended for samantha for GFRby the [facility] on for Adults.The GFR will not calculate if th e sex is unknown or if thepatient's ag e is <18 years. CREATININE (test 1.3 mg/dL 0.6-1.5 N code = CREAT) BUN/CREATININE RATIO 27.7 12.0-20.0 H (test code = BUN/CREA) CALCIUM (test code = 8.8 mg/dL 8.5-10.1 N CA) LIVER FUNCTION [id number] 04:49:00 Test Item Value Reference Range Interpretation Comments TOTAL PROTEIN 8.1 g/dL 6.4-8.2 N (test code = PROT) ALBUMIN (test code 3.1 g/dL 3.4-5.0 L = ALB) GLOBULIN (test 5.0 g/dL 2.3-3.5 H code = GLOB) BILIRUBIN TOTAL 0.4 mg/dL 0.2-1.2 N Use of this assay is not (test code = BILT) recommend ed for patients undergoingtreat ment with Eltrombopag due to the potential for falselyelevated results. BILIRUBIN DIRECT 0.1 mg/dL 0.0-0.3 N (test code = BILD) BILIRUBIN INDIRECT 0.3 mg/dL 0.0-0.8 N (test code = BILIND) SGOT/AST (test 15 U/L 15-37 N code = AST) SGPT/ALT (test 16 U/L 6-50 N code = ALT) ALKALINE 114 U/L 45-117 N PHOSPHATASE (test code = ALKP) TROP-I HIGH [id number] 04:49:00 Test Item Value Reference Range Interpretation Comments TROP-I HIGH SENSITIVITY 13 pg/mL 0-53 N CAUT ION: Units of the (test code = TROPIHS) curren t test methodology (pg /mL) differ from the prior test methodolog y (ng/mL) by a fa ctor of 1000. CBC W/O [id number] 03:35:00 Test Item Value Reference Range Interpretation Comments WHITE BLOOD CELL (test code = 6.2 10 3/uL 4.5-11.0 N WBC) RED BLOOD CELL (test code = RBC) 3.28 10 6/uL 3.50-5.50 L HEMOGLOBIN (test code = HGB) 10.0 g/dL 12.0-16.0 L HEMATOCRIT (test code = HCT) 30.3 % 37.0-55.0 L MEAN CELL VOLUME (test code = 92 fL 81-102 N MCV) MEAN CELL HGB (test code = MCH) 30.5 pg 26.0-34.0 N MEAN CELL HGB CONCENTRATION 33.0 g/dL 31.0-37.0 N (test code = MCHC) RED CELL DISTRIBUTION WIDTH 14.6 % 11.6-14.4 H (test code = RDW) PLATELET COUNT (test code = PLT) 295 10 3/uL 150-400 N [id number] 03:22:00 Test Item Value Reference Range Interpretation Comments GLUBED (test 498 mg/dL 70-105 HH CRITICAL RESULT - TESTING code = GLUBED) PERFORMED BY PRIMARY CAREGIVERIntrav enous administration of N-acetylcystein e which resultsin blood concentrations >5 mg/dL will cause overestim ationof blood glucose results . Do not use during intraven ousinfusion of N'acetylcystein e. [id number] 10:44:00 Test Item Value Reference Range Interpretation Comments GLUBED (test 384 mg/dL 70-105 H Intravenous adm inistration code = GLUBED) of N-acetylcy steine which resultsin blood concentrations >5 mg/dL will cause overestim ationof blood glucose results . Do not use during intraven ousinfusion of N'acetylcyst eine. BASIC METABOLIC [id number] 09:37:00 Test Item Value Reference Range Interpretation Comments SODIUM (test code = 128 mmol/L 135-145 L NA) POTASSIUM (test code 3.8 mmol/L 3.5-5.1 N = K) CHLORIDE (test code 93 mmol/L 98-107 L = CL) CARBON DIOXIDE (test 28 mmol/L 21-32 N code = CO2) ANION GAP (test code 10.8 2.0-16.0 N = GAP) GLUCOSE (test code = 572 mg/dL 65-99 HH Critica l Value reported GLU) toFirst Name:MARLA CALDERON Last Name:ALYCIA BAY READ BACK AND VERIFIEDby [id number], on 07/03/22, @ 093 5. BLOOD UREA NITROGEN 39 mg/dL 4-23 H (test code = BUN) GLOMERULAR 40 ml/min >60 L The Glomerular FILTRATION RATE Filtration R ate is a (test code = GFR) calculated parameterbased on serum Creatinine, pat ient age and sex. GFR va luesless than 60 mL/min/ 1.73 square meters a re indicative ofCh ronic Kidney Disease. Values less than 15 mL/min/1.73squa re meters indicate Kidney failure. The calculation for GFR is based on the CK D-EPI (2020) calculat ion. This formulais race indifferent and is the recommended for samantha for GFRby the [facility] on for Adults.The GFR will not calculate if th e sex is unknown or if thepatient's ag e is <18 years. CREATININE (test 1.4 mg/dL 0.6-1.5 N code = CREAT) BUN/CREATININE RATIO 27.9 12.0-20.0 H (test code = BUN/CREA) CALCIUM (test code = 9.5 mg/dL 8.5-10.1 N CA) ACETONE [id number] 09:37:00 Test Item Value Reference Range Interpretation Comments ACETONE BLOOD (test code = ACETB) NEGATIVE - XR KNEE 3 V [id number] 08:26:00 [facility] : 1950 Sex: FPatient Name: LIZZIE HINKLE Unit No: [id number] EXAMS: CPT CODE: [id number] XR KNEE 3 V LT [address] Location code: H5 Left knee 3 views: Indication: pain after hitting bed Comparison: none. Findings: No evidence of fracture, subluxation, or dislocation. Joint space is preserved. Articular surfaces are smooth. No evidence of joint effusion. Infrapatellar soft tissues appear thickened and swollen, consistent with trauma. Vascular calcification. Impression: 1. Bone is intact. Thickened infrapatellar soft tissues secondary to trauma. at 0826 Reported and signed by: Jordi Soria MD CC: Self Referred; Dheeraj Loco MD Technologist: Maninder Roque; Bal Moura; Dallas Chaudhari Time: DAP (Gy m2): Air Kerma (mGy): Trscr Dt/Tm: 07/03/2022 (825) by:Saul Electronic Signature Date/Time: 07/03/2022 (825)Orig Print D/T: S: 07/03/2022 (829) Name: CATRACHITALIZZIE [facility] [place] Phys: Dheeraj Carmichael MD[address] : 1950 Age: 72 Sex: [place] [address] Loc: [place].ERS Exam Date: 07/03/2022 Status: REG ER PH: FAX: PAGE 1 Signed ReportCBC W/AUTO [id number] 07:50:00 Test Item Value Reference Range Interpretation Comments WHITE BLOOD CELL (test code = 5.9 10 3/uL 4.5-11.0 N WBC) RED BLOOD CELL (test code = 3.38 10 6/uL 3.50-5.50 L RBC) HEMOGLOBIN (test code = HGB) 9.9 g/dL 12.0-16.0 L HEMATOCRIT (test code = HCT) 30.4 % 37.0-55.0 L MEAN CELL VOLUME (test code = 90 fL 81-102 N MCV) MEAN CELL HGB (test code = 29.3 pg 26.0-34.0 N MCH) MEAN CELL HGB CONCENTRATION 32.6 g/dL 31.0-37.0 N (test code = MCHC) RED CELL DISTRIBUTION WIDTH 14.1 % 11.6-14.4 N (test code = RDW) PLATELET COUNT (test code = 332 10 3/uL 150-400 N PLT) MEAN PLATELET VOLUME (test 10.7 fL 9.0-12.6 N code = MPV) NEUTROPHIL % (test code = NT%) 69.7 % 33.0-76.0 N IMMATURE GRANULOCYTE % (test 0.7 % 0.0-1.0 N code = IG%) LYMPHOCYTE % (test code = LY%) 16.5 % 14.0-56.4 N MONOCYTE % (test code = MO%) 9.2 % 0.0-12.9 N EOSINOPHIL % (test code = EO%) 3.1 % 0.0-7.0 N BASOPHIL % (test code = BA%) 0.8 % 0-2.0 N NUCLEATED RBC % (test code = 0.0 % 0-0.2 N NRBC%) NEUTROPHIL # (test code = NT#) 4.11 10 3/uL 1.5-7.0 N IMMATURE GRANULOCYTE # (test 0.040 x10 3/uL 0.000-0.100 N code = IG#) LYMPHOCYTE # (test code = LY#) 0.97 10 3/uL 1.50-4.00 L MONOCYTE # (test code = MO#) 0.54 10 3/uL 0.20-0.80 N EOSINOPHIL # (test code = EO#) 0.18 10 3/uL 0.0-0.5 N BASOPHIL # (test code = BA#) 0.05 10 3/uL 0.0-0.1 N NUCLEATED RBC # (test code = 0.000 10 3/uL 0.000-0.012 N NRBC#) [id number] 07:24:00 Test Item Value Reference Range Interpretation Comments GLUBED (test 499 mg/dL 70-105 HH CRITICAL RESULT - TESTING code = GLUBED) PERFORMED BY PRIMARY CAREGIVERIntrav enous administration of N-acetylcystein e which resultsin blood concentrations >5 mg/dL will cause overestim ationof blood glucose results . Do not use during intraven ousinfusion of N'acetylcystein e. [id number] 11:13:00 Test Item Value Reference Range Interpretation Comments GLUBED (test 185 mg/dL 70-105 H Intravenous adm inistration code = GLUBED) of N-acetylcy steine which resultsin blood concentrations >5 mg/dL will cause overestim ationof blood glucose results . Do not use during intraven ousinfusion of N'acetylcyst eine. [id number] 07:30:00 Test Item Value Reference Range Interpretation Comments GLUBED (test 182 mg/dL 70-105 H Intravenous adm inistration code = GLUBED) of N-acetylcy steine which resultsin blood concentrations >5 mg/dL will cause overestim ationof blood glucose results . Do not use during intraven ousinfusion of N'acetylcyst eine. [id number] 07:02:00 Test Item Value Reference Range Interpretation Comments FERRITIN (test code = JOSE) 40 ng/mL 8-388 N BASIC METABOLIC [id number] 06:58:00 Test Item Value Reference Range Interpretation Comments SODIUM (test code = 136 mmol/L 135-145 N NA) POTASSIUM (test code 3.8 mmol/L 3.5-5.1 N = K) CHLORIDE (test code 107 mmol/L 98-107 N = CL) CARBON DIOXIDE (test 25 mmol/L 21-32 N code = CO2) ANION GAP (test code 7.8 2.0-16.0 N = GAP) GLUCOSE (test code = 216 mg/dL 65-99 H GLU) BLOOD UREA NITROGEN 16 mg/dL 4-23 N (test code = BUN) GLOMERULAR 54 ml/min >60 L The Glomerular FILTRATION RATE Filtration R ate is a (test code = GFR) calculated parameterbased on serum Creatinine, pat ient age and sex. GFR va luesless than 60 mL/min/ 1.73 square meters a re indicative ofCh ronic Kidney Disease. Values less than 15 mL/min/1.73squa re meters indicate Kidney failure. The calculation for GFR is based on the CK D-EPI (2020) calculat ion. This formulais race indifferent and is the recommended for samantha for GFRby the [facility] n[facility]ney [facility] on for Adults.The GFR will not calculate if th e sex is unknown or if thepatient's ag e is <18 years. CREATININE (test 1.1 mg/dL 0.6-1.5 N code = CREAT) BUN/CREATININE RATIO 14.5 12.0-20.0 N (test code = BUN/CREA) CALCIUM (test code = 8.5 mg/dL 8.5-10.1 N CA) [id number] 06:58:00 Test Item Value Reference Range Interpretation Comments PHOSPHOROUS (test code = PHOS) 3.0 mg/dL 2.5-4.9 N FE W/TOTAL IRON BINDING [id number] 06:57:00 Test Item Value Reference Range Interpretation Comments IRON (test code = IRON) 45 ug/dL 50-175 L TOTAL IRON BINDING CAPACITY (test 197 ug/dL 260-445 L code = TIBC) IRON SATURATION (test code = FESAT) 23 % 11-46 N CBC W/AUTO [id number] 06:31:00 Test Item Value Reference Range Interpretation Comments WHITE BLOOD CELL (test code = 4.4 10 3/uL 4.5-11.0 L WBC) RED BLOOD CELL (test code = 3.08 10 6/uL 3.50-5.50 L RBC) HEMOGLOBIN (test code = HGB) 8.9 g/dL 12.0-16.0 L HEMATOCRIT (test code = HCT) 27.4 % 37.0-55.0 L MEAN CELL VOLUME (test code = 89 fL 81-102 N MCV) MEAN CELL HGB (test code = 28.9 pg 26.0-34.0 N MCH) MEAN CELL HGB CONCENTRATION 32.5 g/dL 31.0-37.0 N (test code = MCHC) RED CELL DISTRIBUTION WIDTH 13.1 % 11.6-14.4 N (test code = RDW) PLATELET COUNT (test code = 212 10 3/uL 150-400 N PLT) MEAN PLATELET VOLUME (test 10.8 fL 9.0-12.6 N code = MPV) NEUTROPHIL % (test code = NT%) 53.5 % 33.0-76.0 N IMMATURE GRANULOCYTE % (test 1.4 % 0.0-1.0 H code = IG%) LYMPHOCYTE % (test code = LY%) 35.6 % 14.0-56.4 N MONOCYTE % (test code = MO%) 7.7 % 0.0-12.9 N EOSINOPHIL % (test code = EO%) 1.1 % 0.0-7.0 N BASOPHIL % (test code = BA%) 0.7 % 0-2.0 N NUCLEATED RBC % (test code = 0.0 % 0-0.2 N NRBC%) NEUTROPHIL # (test code = NT#) 2.38 10 3/uL 1.5-7.0 N IMMATURE GRANULOCYTE # (test 0.060 x10 3/uL 0.000-0.100 N code = IG#) LYMPHOCYTE # (test code = LY#) 1.58 10 3/uL 1.50-4.00 N MONOCYTE # (test code = MO#) 0.34 10 3/uL 0.20-0.80 N EOSINOPHIL # (test code = EO#) 0.05 10 3/uL 0.0-0.5 N BASOPHIL # (test code = BA#) 0.03 10 3/uL 0.0-0.1 N NUCLEATED RBC # (test code = 0.000 10 3/uL 0.000-0.012 N NRBC#) [id number] 05:10:00 Test Item Value Reference Range Interpretation Comments PHOSPHOROUS (test code = PHOS) 3.1 mg/dL 2.5-4.9 N [id number] 01:34:00 Test Item Value Reference Range Interpretation Comments PHOSPHOROUS (test code = PHOS) 2.9 mg/dL 2.5-4.9 N [id number] 19:30:00 Test Item Value Reference Range Interpretation Comments GLUBED (test 94 mg/dL 70-105 N Intravenous adm inistration of code = GLUBED) N-acetylcyste ine which resultsin blood concentrations >5 mg/dL will cause overestim ationof blood glucose results . Do not use during intraven ousinfusion of N'acetylcystein e. CBC W/AUTO [id number] 18:50:00 Test Item Value Reference Range Interpretation Comments WHITE BLOOD CELL (test code = 5.2 10 3/uL 4.5-11.0 N WBC) RED BLOOD CELL (test code = 2.90 10 6/uL 3.50-5.50 L RBC) HEMOGLOBIN (test code = HGB) 8.8 g/dL 12.0-16.0 L HEMATOCRIT (test code = HCT) 25.7 % 37.0-55.0 L MEAN CELL VOLUME (test code = 89 fL 81-102 N MCV) MEAN CELL HGB (test code = 30.3 pg 26.0-34.0 N MCH) MEAN CELL HGB CONCENTRATION 34.2 g/dL 31.0-37.0 N (test code = MCHC) RED CELL DISTRIBUTION WIDTH 13.1 % 11.6-14.4 N (test code = RDW) PLATELET COUNT (test code = 159 10 3/uL 150-400 N PLT) MEAN PLATELET VOLUME (test 11.4 fL 9.0-12.6 N code = MPV) NEUTROPHIL % (test code = NT%) 56.7 % 33.0-76.0 N IMMATURE GRANULOCYTE % (test 1.0 % 0.0-1.0 N code = IG%) LYMPHOCYTE % (test code = LY%) 33.8 % 14.0-56.4 N MONOCYTE % (test code = MO%) 7.1 % 0.0-12.9 N EOSINOPHIL % (test code = EO%) 1.0 % 0.0-7.0 N BASOPHIL % (test code = BA%) 0.4 % 0-2.0 N NUCLEATED RBC % (test code = 0.0 % 0-0.2 N NRBC%) NEUTROPHIL # (test code = NT#) 2.98 10 3/uL 1.5-7.0 N IMMATURE GRANULOCYTE # (test 0.050 x10 3/uL 0.000-0.100 N code = IG#) LYMPHOCYTE # (test code = LY#) 1.77 10 3/uL 1.50-4.00 N MONOCYTE # (test code = MO#) 0.37 10 3/uL 0.20-0.80 N EOSINOPHIL # (test code = EO#) 0.05 10 3/uL 0.0-0.5 N BASOPHIL # (test code = BA#) 0.02 10 3/uL 0.0-0.1 N NUCLEATED RBC # (test code = 0.000 10 3/uL 0.000-0.012 N NRBC#) [id number] 16:29:00 Test Item Value Reference Range Interpretation Comments GLUBED (test 148 mg/dL 70-105 H Intravenous adm inistration code = GLUBED) of N-acetylcy steine which resultsin blood concentrations >5 mg/dL will cause overestim ationof blood glucose results . Do not use during intraven ousinfusion of N'acetylcyst eine. - CT ABD PELVIS W/O [id number] 14:56:00 [facility] : 1950 Sex: FPatient Name: LIZZIE HINKLE Unit No: [id number] EXAMS: CPT CODE: [id number] CT ABD PELVIS W/O CONT 14021 EXAM: CT ABDOMEN AND PELVIS WITHOUT CONTRAST INDICATION: blood in stool LOCATION: A1 COMPARISON: CT abdomen pelvis dated 04/18/2022 TECHNIQUE: CT of the abdomen and pelvis was performed without intravenous contrast. All CT scans are performed using radiation dose reduction technique. Technical factors are evaluated and adjusted to insure appropriate moderation of exposure. Automated dose management technology is applied to adjust the radiation dose to minimize exposure while achieving a diagnostic quality image. FINDINGS: Statements: Lack of intravenous contrast compromises evaluationof abdominopelvic organs and vasculature. Thoracic: Included images of the lower chest demonstrate no abnormalities. Hepatobiliary: No focal liver lesion is identified. No intrahepatic or extrahepatic biliary dilatation is seen. Gallbladder: The gallbladder is normal. Pancreas: Unremarkable. Spleen: Un remarkable. Adrenals: Unremarkable. Kidneys: There is no evidence of renal calculus. There is no evidence of hydronephrosis of either kidney. Bladder/Reproductive system: Evaluation of the bladder is limited, but no obvious bladder abnormality is present. Uterus is not clearly seen, possibly surgically absent. Gastrointestinal: No bowel obstruction or perienteric inflammation. The appendix is normal.There is large stool burden throughout the colon, particularly at the rectum. Vascular: Atherosclerotic calcifications are seen within the aorta and branch vessels. Lymphatics: No enlarged lymph nodes by CT size criteria. Bones/Soft Tissues: No acute osseous findings. No ventral hernias. Peritoneum/Other: No extraluminal air. No extraluminal fluid. Name: LIZZIE HINKLE [facility] [place] Phys: - Ranulfo, DO [facility] : 1950 Age: 72 Sex: [place] [address] Loc: NC.5104 1 Exam Date: 05/20/2022 Status: ADM IN PH: FAX: PAGE 1 Signed Report(CONTINUED) Patient Name: LIZZIE HINKLE Unit No: [id number] EXAMS: CPT CODE: [id number] CT ABDPELVIS W/O CONT 69798 (Continued) IMPRESSION: Large stool burden particularly at the rectum, otherwise unremarkable CT abdomen pelvis. Electronically Signed by Gila Valiente M.D. on 05/02 at 1456 Reported and signed by: Gila Valiente M.D. CC: Self Referred; Erasmo Fay MD; Britney Winchester DO Technologist: Eric Irizarry CTDI: 8.24 DLP: 403.4 Trscr Dt/Tm: 05/20/2022 (1456) by:[email or web address] Electronic Signature Date/Time: 05/20/2022 (1456)Orig Print D/T: S: 05/20/2022 (1459) [facility]: [place] [address] [facility] : 1950 Age: 72 Sex: [place] [address] Loc: NC.5104 1 ExamDate: 05/20/2022 Status: ADM IN PH: FAX: PAGE 2 Signed [id number] 12:07:00 Test Item Value Reference Range Interpretation Comments GLUBED (test 164 mg/dL 70-105 H Intravenous adm inistration code = GLUBED) of N-acetylcy steine which resultsin blood concentrations >5 mg/dL will cause overestim ationof blood glucose results . Do not use during intraven ousinfusion of N'acetylcyst eide. [id number] 08:12:00 Test Item Value Reference Range Interpretation Comments GLUBED (test 68 mg/dL 70-105 L Intravenous adm inistration of code = GLUBED) N-acetylcyste ine which resultsin blood concentrations >5 mg/dL will cause overestim ationof blood glucose results . Do not use during intraven ousinfusion of N'acetylcystein e. [id number] 07:25:00 Test Item Value Reference Range Interpretation Comments PHOSPHOROUS (test code = PHOS) 2.4 mg/dL 2.5-4.9 L CBC W/AUTO [id number] 06:57:00 Test Item Value Reference Range Interpretation Comments WHITE BLOOD CELL (test code = 6.8 10 3/uL 4.5-11.0 N WBC) RED BLOOD CELL (test code = 3.28 10 6/uL 3.50-5.50 L RBC) HEMOGLOBIN (test code = HGB) 9.8 g/dL 12.0-16.0 L HEMATOCRIT (test code = HCT) 29.3 % 37.0-55.0 L MEAN CELL VOLUME (test code = 89 fL 81-102 N MCV) MEAN CELL HGB (test code = 29.9 pg 26.0-34.0 N MCH) MEAN CELL HGB CONCENTRATION 33.4 g/dL 31.0-37.0 N (test code = MCHC) RED CELL DISTRIBUTION WIDTH 12.9 % 11.6-14.4 N (test code = RDW) PLATELET COUNT (test code = 235 10 3/uL 150-400 N PLT) MEAN PLATELET VOLUME (test 11.2 fL 9.0-12.6 N code = MPV) NEUTROPHIL % (test code = NT%) 60.0 % 33.0-76.0 N IMMATURE GRANULOCYTE % (test 1.6 % 0.0-1.0 H code = IG%) LYMPHOCYTE % (test code = LY%) 29.4 % 14.0-56.4 N MONOCYTE % (test code = MO%) 7.6 % 0.0-12.9 N EOSINOPHIL % (test code = EO%) 1.0 % 0.0-7.0 N BASOPHIL % (test code = BA%) 0.4 % 0-2.0 N NUCLEATED RBC % (test code = 0.0 % 0-0.2 N NRBC%) NEUTROPHIL # (test code = NT#) 4.08 10 3/uL 1.5-7.0 N IMMATURE GRANULOCYTE # (test 0.110 x10 3/uL 0.000-0.100 H code = IG#) LYMPHOCYTE # (test code = LY#) 2.00 10 3/uL 1.50-4.00 N MONOCYTE # (test code = MO#) 0.52 10 3/uL 0.20-0.80 N EOSINOPHIL # (test code = EO#) 0.07 10 3/uL 0.0-0.5 N BASOPHIL # (test code = BA#) 0.03 10 3/uL 0.0-0.1 N NUCLEATED RBC # (test code = 0.000 10 3/uL 0.000-0.012 N NRBC#) HGB [id number] 20:20:00 Test Item Value Reference Range Interpretation Comments HEMOGLOBIN (test code = HGB) 10.5 g/dL 12.0-16.0 L HEMATOCRIT (test code = HCT) 31.9 % 37.0-55.0 L [id number] 19:44:00 Test Item Value Reference Range Interpretation Comments GLUBED (test 146 mg/dL 70-105 H Intravenous adm inistration code = GLUBED) of N-acetylcy steine which resultsin blood concentrations >5 mg/dL will cause overestim ationof blood glucose results . Do not use during intraven ousinfusion of N'acetylcyst eine. [id number] 18:18:00 Test Item Value Reference Range Interpretation Comments PHOSPHOROUS (test code = PHOS) 3.2 mg/dL 2.5-4.9 N [id number] 18:11:00 Test Item Value Reference Range Interpretation Comments GLUBED (test 85 mg/dL 70-105 N Intravenous adm inistration of code = GLUBED) N-acetylcyste ine which resultsin blood concentrations >5 mg/dL will cause overestim ationof blood glucose results . Do not use during intraven ousinfusion of N'acetylcystein e. CBC W/AUTO [id number] 17:32:00 Test Item Value Reference Range Interpretation Comments WHITE BLOOD CELL (test code = 9.0 10 3/uL 4.5-11.0 N WBC) RED BLOOD CELL (test code = 3.60 10 6/uL 3.50-5.50 N RBC) HEMOGLOBIN (test code = HGB) 10.7 g/dL 12.0-16.0 L HEMATOCRIT (test code = HCT) 32.5 % 37.0-55.0 L MEAN CELL VOLUME (test code = 90 fL 81-102 MCV) MEAN CELL HGB (test code = 29.7 pg 26.0-34.0 N MCH) MEAN CELL HGB CONCENTRATION 32.9 g/dL 31.0-37.0 N (test code = MCHC) RED CELL DISTRIBUTION WIDTH 13.1 % 11.6-14.4 N (test code = RDW) PLATELET COUNT (test code = 227 10 3/uL 150-400 N PLT) MEAN PLATELET VOLUME (test 11.3 fL 9.0-12.6 N code = MPV) NEUTROPHIL % (test code = NT%) 63.2 % 33.0-76.0 N IMMATURE GRANULOCYTE % (test 2.0 % 0.0-1.0 H code = IG%) LYMPHOCYTE % (test code = LY%) 26.4 % 14.0-56.4 N MONOCYTE % (test code = MO%) 7.5 % 0.0-12.9 N EOSINOPHIL % (test code = EO%) 0.3 % 0.0-7.0 N BASOPHIL % (test code = BA%) 0.6 % 0-2.0 N NUCLEATED RBC % (test code = 0.0 % 0-0.2 N NRBC%) NEUTROPHIL # (test code = NT#) 5.71 10 3/uL 1.5-7.0 N IMMATURE GRANULOCYTE # (test 0.180 x10 3/uL 0.000-0.100 H code = IG#) LYMPHOCYTE # (test code = LY#) 2.39 10 3/uL 1.50-4.00 N MONOCYTE # (test code = MO#) 0.68 10 3/uL 0.20-0.80 N EOSINOPHIL # (test code = EO#) 0.03 10 3/uL 0.0-0.5 N BASOPHIL # (test code = BA#) 0.05 10 3/uL 0.0-0.1 N NUCLEATED RBC # (test code = 0.000 10 3/uL 0.000-0.012 N NRBC#) - XR CHEST 1 [id number] 13:26:00 [facility] 1950 Sex: FPatient Name: LIZZIE HINKLE Unit No: [id number] EXAMS: CPT CODE: [id number] XR CHEST 1 V [id number] Location: A 1 EXAM: - XR CHEST 1 V DATE: 05/19/2022 5:00 PM HISTORY: Abnormal xr COMPARISON: Chestx-ray 05/19/2022 FINDINGS: No airspace consolidation or pleural effusions. No pneumothorax. Prominence of the interstitial markings in both upper lung zones. The cardiovascular silhouette is within normal limits. No bony lesions. IMPRESSION: Nonspecific prominence of the interstitial markings in both upper lung zones, potentially scarring. at 1326 Reported and signed by: Karla Lopez CC: Self Referred; Erasmo Fay MD; Britney Chanel Technologist: Annette Barbour Fluoro Time: DAP (Gy m2): Air Kerma (mGy): Trscr Dt/Tm: 05/19/2022(1326) by:Tushar Electronic Signature Date/Time: 05/19/2022 (1326)Orig Print D/T: S: 05/19/2022 (4809) Name: LIZZIE HINKLE [facility] Phys: Britney Gruber [place] [address] [facility] : 1950 Age: 72 Sex: [place] [id number] Loc: [email or web address] Exam Date: 05/19/2022 Status: ADM IN PH: FAX: PAGE 1 Signed ReportLACTIC [id number] 13:07:00 Test Item Value Reference Range Interpretation Comments LACTIC ACID (test code = LACT) 1.4 mmol/L 0.4-2.0 N [id number] 13:07:00 Test Item Value Reference Range Interpretation Comments PHOSPHOROUS (test code = PHOS) 3.3 mg/dL 2.5-4.9 N BASIC METABOLIC [id number] 12:48:00 Test Item Value Reference Range Interpretation Comments SODIUM (test code = 138 mmol/L 135-145 N NA) POTASSIUM (test code 4.0 mmol/L 3.5-5.1 N = K) CHLORIDE (test code 110 mmol/L 98-107 H = CL) CARBON DIOXIDE (test 20 mmol/L 21-32 L code = CO2) ANION GAP (test code 12.0 2.0-16.0 = GAP) GLUCOSE (test code = 217 mg/dL 65-99 H GLU) BLOOD UREA NITROGEN 21 mg/dL 4-23 N (test code = BUN) GLOMERULAR 49 ml/min >60 L The Glomerular FILTRATION RATE Filtration R ate is a (test code = GFR) calculated parameterbased on serum Creatinine, pat ient age and sex. GFR va luesless than 60 mL/min/ 1.73 square meters a re indicative ofCh ronic Kidney Disease. Values less than 15 mL/min/1.73squa re meters indicate Kidney failure. The calculation for GFR is based on the CK D-EPI (2020) calculat ion. This formulais race indifferent and is the recommended for samantha for GFRby the Natio nal Kidney Foundati on for Adults.The GFR will not calculate if th e sex is unknown or if thepatient's ag e is <18 years. CREATININE (test 1.2 mg/dL 0.6-1.5 N code = CREAT) BUN/CREATININE RATIO 17.5 12.0-20.0 N (test code = BUN/CREA) CALCIUM (test code = 8.3 mg/dL 8.5-10.1 L CA) [id number] 12:03:00 Test Item Value Reference Range Interpretation Comments GLUBED (test 210 mg/dL 70-105 H Intravenous adm inistration code = GLUBED) of N-acetylcy steine which resultsin blood concentrations >5 mg/dL will cause overestim ationof blood glucose results . Do not use during intraven ousinfusion of N'acetylcyst eine. [id number] 10:37:00 Test Item Value Reference Range Interpretation Comments GLUBED (test 248 mg/dL 70-105 H Intravenous adm inistration code = GLUBED) of N-acetylcy steine which resultsin blood concentrations >5 mg/dL will cause overestim ationof blood glucose results . Do not use during intraven ousinfusion of N'acetylcyst eine. [id number] 09:03:00 Test Item Value Reference Range Interpretation Comments GLUBED (test 294 mg/dL 70-105 H Intravenous adm inistration code = GLUBED) of N-acetylcy steine which resultsin blood concentrations >5 mg/dL will cause overestim ationof blood glucose results . Do not use during intraven ousinfusion of N'acetylcyst eine. LIPID PROFILE (CORONARY RISK)2022-05-19 08:12:00 Test Item Value Reference Range Interpretation Comments TRIGLYCERIDES (test 178 mg/dL 0-149 H Accordin g to the National code = TRIG) Institutes of [facility] ([facility]) and theNational Cholesterol Edu cation Program (NCEP), serumtriglyceri de levels between 150-199 mg/dL are consideredBorde rline High. CHOLESTEROL (test 287 mg/dL 0-200 H code = CHOL) CHOLESTEROL/HDL 5 1-6 N RATIO (test code = CHOLHDL) HDL CHOLESTEROL 55 mg/dL 40-60 N (test code = HDL) LIPOPROTEIN LDL 206 mg/dL 0-100 H (test code = LDLC) [id number] 08:11:00 Test Item Value Reference Range Interpretation Comments PHOSPHOROUS (test code = PHOS) 4.5 mg/dL 2.5-4.9 N OK TO RECEIVED BY DELORES MILLER [id number] 08:11:00 Test Item Value Reference Range Interpretation Comments LACTIC ACID (test code = LACT) 2.0 mmol/L 0.4-2.0 N [id number] 07:54:00 Test Item Value Reference Range Interpretation Comments GLUBED (test 372 mg/dL 70-105 H Intravenous adm inistration code = GLUBED) of N-acetylcy steine which resultsin blood concentrations >5 mg/dL will cause overestim ationof blood glucose results . Do not use during intraven ousinfusion of N'acetylcyst eine. HGBA1C - GLYCOSYLATED [id number] 07:42:00 Test Item Value Reference Range Interpretation Comments GLYCOSYLATED 12.9 % 4.5-5.9 H The [place] [employer] HEMOGLOBIN (HA1C) Associatio n recommends a (test code = GLYHGB) therape uticrange of <7.0% Hemoglobin A1c for patients with diabetesmellitu s (Type 2 diabetes). [id number] 07:31:00 Test Item Value Reference Range Interpretation Comments CALCIUM (test code = CA) 9.3 mg/dL 8.5-10.1 N [id number] 07:31:00 Test Item Value Reference Range Interpretation Comments PHOSPHOROUS (test code = PHOS) 5.1 mg/dL 2.5-4.9 H CREATINE KINASE (CK)2022-05-19 07:31:00 Test Item Value Reference Range Interpretation Comments CREATINE KINASE (CK) (test code = CK) 88 U/L 26-308 N [id number] 07:31:00 Test Item Value Reference Range Interpretation Comments AMYLASE (test code = MINOO) 26 U/L 25-115 N OSMOLALITY [id number] 07:31:00 Test Item Value Reference Range Interpretation Comments OSMOLALITY SERUM (test code = 336 mOsm/kg 278-305 H OSMO) ACETONE [id number] 07:31:00 Test Item Value Reference Range Interpretation Comments ACETONE QUAL (test code = ACETNQL) SMALL NEGATIVE A COVID 19 INHOUSE [id number] 07:01:00 Test Item Value Reference Range Interpretation Comments COVID 19 INHOUSE NEGATIVE Negative Negative re sults do not AG (test code = preclude 201 9-nCoV infection [id number]) andshould not b e used as the sole basis for treatment or otherpatient ma nagement decisions. Nega tive results must becombined with clinical observ ations, patient history , andepidemiologi abhinav information. [id number] 06:18:00 Test Item Value Reference Range Interpretation Comments GLUBED (test 528 mg/dL 70-105 HH CRITICAL RESULT - TESTING code = GLUBED) PERFORMED BY PRIMARY CAREGIVERIntrav enous administration of N-acetylcystein e which resultsin blood concentrations >5 mg/dL will cause overestim ationof blood glucose results . Do not use during intraven ousinfusion of N'acetylcystein e. PROTHROMBIN [id number] 06:08:00 Test Item Value Reference Range Interpretation Comments PROTHROMBIN TIME 10.3 SECONDS 9.4-12.5 N PATIENT (test code = PTP) INTERNATIONAL 0.9 RATIO 0.8-1.1 N THE INR IS USE FUL ONLY NORMAL RATIO (test FOR MONIT ORING code = INR) ANTICOAGULANT THERAPY.IT MAY BE UNRELIABLE IN T HE INITIAL PHASE O F ANTICOAGULATION AND IN UNSTABLE PATIEN TS. 2.0-3.0 is the recommended INR for the following:Preve ntion of venous thrombol ism in high-risk patients;treatm ent of venous thrombos is and pulmonary embol ism aftera course o f heparin; preven tion of systemic emboli sm in avariety of con dition, including atria l fibrillation andprosthetic t issue heart valves.2. 5-3.5 is the recommended INR for the following:Prost hetic mechanical hear t values and/or recurren t systemicemboliz ation. THROMBOPLASTIN TIME [id number] 06:08:00 Test Item Value Reference Range Interpretation Comments THROMBOPLASTIN TIME PARTIAL 26.7 SECONDS 25.1-36.5 N (test code = PTT) ISTAT BLOOD GAS [id number] 05:40:00 Test Item Value Reference Range Interpretation Comments IONIZED CALCIUM 1.15 mmol/L 1.12-1.32 N (test code = CAIABG) VENOUS BLOOD GAS 7.15 pH 7.32-7.42 LL CRITICAL RE SULT - PH (test code = TESTING PERF ORMED BY PHV) PRIMARY CAREGIV ER VENOUS BLOOD GAS 29 mmHg 41-51 L PCO2 (test code = PCO2V) VENOUS BLOOD GAS 54 mmHg 25-40 H PO2 (test code = PO2V) VBG HCO3 (test 10 mmol/L 24-25 L code = HCO3V) VBG BASE EXCESS -19 mmol/L -5-5 L (test code = GLENN) VENOUS BLOOD GAS 78 % 70-75 H O2 SAT (test code = O2SATV) TOTAL CO2 CONTENT 11.0 mmol/L 22-30 LL (test code = TCO2) HEMOGLOBIN POC 12.6 g/dL 11.6-15.6 N (test code = HBP) HEMATOCRIT POC 37.0 % 33-45 N (test code = HCTP) SODIUM POC (test 132 mmol/L 134-147 L code = NAP) POTASSIUM POC 5.1 mmol/L 3.4-5.0 H (test code = KP) GLUCOSE POC (test > 625 mg/dL 70-110 HH CRITICAL R ESULT - code = GLUP) TESTING PERFORM ED BY PRIMARY CAREGIVERCRITIC AL RESULT - TESTING PERFO RMED BY PRIMARY CAREGIV ER [id number] 05:22:00 Test Item Value Reference Range Interpretation Comments GLUBED (test 571 mg/dL 70-105 HH CRITICAL RESULT - TESTING code = GLUBED) PERFORMED BY PRIMARY CAREGIVERIntrav enous administration of N-acetylcystein e which resultsin blood concentrations >5 mg/dL will cause overestim ationof blood glucose results . Do not use during intraven ousinfusion of N'acetylcystein e. BASIC METABOLIC [id number] 04:19:00 Test Item Value Reference Range Interpretation Comments SODIUM (test code = 133 mmol/L 135-145 L NA) POTASSIUM (test code 4.4 mmol/L 3.5-5.1 N = K) CHLORIDE (test code 100 mmol/L 98-107 N = CL) CARBON DIOXIDE (test 12 mmol/L 21-32 L code = CO2) ANION GAP (test code 25.4 2.0-16.0 H = GAP) GLUCOSE (test code = 666 mg/dL 65-99 HH Critica l Value reported GLU) toFirst Name:JERMAIN MATA Last Name:CAMILLA RNRESULTS READ BACK AND VERIFIEDby [id number], on 05/19/22, @ 0984. BLOOD UREA NITROGEN 24 mg/dL 4-23 H (test code = BUN) GLOMERULAR 44 ml/min >60 L The Glomerular FILTRATION RATE Filtration R ate is a (test code = GFR) calculated parameterbased on serum Creatinine, pat ient age and sex. GFR va luesless than 60 mL/min/ 1.73 square meters a re indicative ofCh ronic Kidney Disease. Values less than 15 mL/min/1.73squa re meters indicate Kidney failure. The calculation for GFR is based on the CK D-EPI (2020) calculat ion. This formulais race indifferent and is the recommended for samantha for GFRby the Natio nal Kidney Foundati on for Adults.The GFR will not calculate if th e sex is unknown or if thepatient's ag e is <18 years. CREATININE (test 1.3 mg/dL 0.6-1.5 N code = CREAT) BUN/CREATININE RATIO 18.5 12.0-20.0 N (test code = BUN/CREA) CALCIUM (test code = 8.4 mg/dL 8.5-10.1 L CA) TROP-I HIGH [id number] 04:19:00 Test Item Value Reference Range Interpretation Comments TROP-I HIGH SENSITIVITY 37 pg/mL 0-53 N CAUT ION: Units of the (test code = TROPIHS) curren t test methodology (pg /mL) differ from the prior test methodolog y (ng/mL) by a fa ctor of 1000. - XR CHEST 1 [id number] 04:17:00 [facility] : 1950 Sex: FPatient Name: LIZZIE HINKLE Unit No: [id number] EXAMS: CPT CODE: [id number] XR CHEST 1 V [id number] - XR CHEST 1 V, 05/19/2022 3:04 AM Reason For Examination: cough Comparison: March 11, 2022 Location:P14 Findings LUNGS: Increased interstitial markings may reflect pneumonitis Question underlyingemphysema. PLEURA: No pleural effusions CARDIOMEDIASTINAL SILHOUETTE Unremarkable IMPRESSION: Question underlying emphysema. Increased interstitial opacities are seen within the bilateral lung apices and right lateral lung zone possibly reflecting infection, recommend follow-up in one month at 0417 Reported and signed by: Lexie Ruiz MD CC: Self Referred; Mateo Hernadez MD; Julio César Perez MD Technologist: Paul Shaw; Ry Graham Fluoro Time: DAP (Gy m2): Air Kerma (mGy): Trscr Dt/Tm: 05/19/2022 (0417) by:[email or web address] Electronic Signature Date/Time: 05/19/2022 (041)Orig Print D/T: S: 05/19/2022 (0420) Name: Parag HINKLEAleksandar CORTEZ [facility] [place] Phys: PATMateo Moore MD R[address] : 1950 Age: 72 Sex: [place] [id number] Loc: [place].ERS Exam Date: 05/19/2022 Status: REG ER PH: FAX: PAGE 1 Signed ReportLIVER FUNCTION [id number] 04:12:00 Test Item Value Reference Range Interpretation Comments TOTAL PROTEIN 7.2 g/dL 6.4-8.2 N (test code = PROT) ALBUMIN (test code 3.2 g/dL 3.4-5.0 L = ALB) GLOBULIN (test 4.0 g/dL 2.3-3.5 H code = GLOB) BILIRUBIN TOTAL 0.7 mg/dL 0.2-1.2 N Use of this assay is not (test code = BILT) recommend ed for patients undergoingtreat ment with Eltrombopag due to the potential for falselyelevated results. BILIRUBIN DIRECT 0.3 mg/dL 0.0-0.3 N (test code = BILD) BILIRUBIN INDIRECT 0.4 mg/dL 0.0-0.8 N (test code = BILIND) SGOT/AST (test 12 U/L 15-37 L code = AST) SGPT/ALT (test 12 U/L 6-50 N code = ALT) ALKALINE 81 U/L 45-117 N PHOSPHATASE (test code = ALKP) [id number] 04:12:00 Test Item Value Reference Range Interpretation Comments LIPASE (test code = LIP) 127 U/L 73-393 N [id number] 04:12:00 Test Item Value Reference Range Interpretation Comments MAGNESIUM (test code = MAG) 1.8 mg/dL 1.8-2.4 N ACETONE [id number] 04:12:00 Test Item Value Reference Range Interpretation Comments ACETONE QUAL (test code = ACETNQL) SMALL NEGATIVE A ISTAT BLOOD GAS [id number] 04:09:00 Test Item Value Reference Range Interpretation Comments IONIZED CALCIUM 1.19 mmol/L 1.12-1.32 N (test code = CAIABG) VENOUS BLOOD GAS 7.21 pH 7.32-7.42 L PH (test code = PHV) VENOUS BLOOD GAS 37 mmHg 41-51 L PCO2 (test code = PCO2V) VENOUS BLOOD GAS 53 mmHg 25-40 H PO2 (test code = PO2V) VBG HCO3 (test 15 mmol/L 24-25 L code = HCO3V) VBG BASE EXCESS -13 mmol/L -5-5 L (test code = GLENN) VENOUS BLOOD GAS 80 % 70-75 H O2 SAT (test code = O2SATV) TOTAL CO2 CONTENT 16.0 mmol/L 22-30 LL (test code = TCO2) HEMOGLOBIN POC 11.9 g/dL 11.6-15.6 N (test code = HBP) HEMATOCRIT POC 35.0 % 33-45 N (test code = HCTP) SODIUM POC (test 132 mmol/L 134-147 L code = NAP) POTASSIUM POC 5.0 mmol/L 3.4-5.0 N (test code = KP) GLUCOSE POC (test > 625 mg/dL 70-110 HH CRITICAL R ESULT - code = GLUP) TESTING PERFORM ED BY PRIMARY CAREGIVERCRITIC AL RESULT - TESTING PERFO RMED BY PRIMARY CAREGIV ER CBC W/AUTO [id number] 03:57:00 Test Item Value Reference Range Interpretation Comments WHITE BLOOD CELL (test code = 6.6 10 3/uL 4.5-11.0 N WBC) RED BLOOD CELL (test code = 3.79 10 6/uL 3.50-5.50 N RBC) HEMOGLOBIN (test code = HGB) 11.1 g/dL 12.0-16.0 L HEMATOCRIT (test code = HCT) 35.1 % 37.0-55.0 L MEAN CELL VOLUME (test code = 93 fL 81-102 N MCV) MEAN CELL HGB (test code = 29.3 pg 26.0-34.0 N MCH) MEAN CELL HGB CONCENTRATION 31.6 g/dL 31.0-37.0 N (test code = MCHC) RED CELL DISTRIBUTION WIDTH 13.0 % 11.6-14.4 N (test code = RDW) PLATELET COUNT (test code = 244 10 3/uL 150-400 N PLT) MEAN PLATELET VOLUME (test 11.3 fL 9.0-12.6 N code = MPV) NEUTROPHIL % (test code = NT%) 66.0 % 33.0-76.0 N IMMATURE GRANULOCYTE % (test 1.4 % 0.0-1.0 H code = IG%) LYMPHOCYTE % (test code = LY%) 25.3 % 14.0-56.4 N MONOCYTE % (test code = MO%) 6.2 % 0.0-12.9 N EOSINOPHIL % (test code = EO%) 0.3 % 0.0-7.0 N BASOPHIL % (test code = BA%) 0.8 % 0-2.0 N NUCLEATED RBC % (test code = 0.0 % 0-0.2 N NRBC%) NEUTROPHIL # (test code = NT#) 4.34 10 3/uL 1.5-7.0 N IMMATURE GRANULOCYTE # (test 0.090 x10 3/uL 0.000-0.100 N code = IG#) LYMPHOCYTE # (test code = LY#) 1.66 10 3/uL 1.50-4.00 N MONOCYTE # (test code = MO#) 0.41 10 3/uL 0.20-0.80 N EOSINOPHIL # (test code = EO#) 0.02 10 3/uL 0.0-0.5 N BASOPHIL # (test code = BA#) 0.05 10 3/uL 0.0-0.1 N NUCLEATED RBC # (test code = 0.000 10 3/uL 0.000-0.012 N NRBC#) [id number] 03:49:00 Test Item Value Reference Range Interpretation Comments GLUBED (test 590 mg/dL 70-105 HH CRITICAL RESULT - TESTING code = GLUBED) PERFORMED BY PRIMARY CAREGIVERIntrav enous administration of N-acetylcystein e which resultsin blood concentrations >5 mg/dL will cause overestim ationof blood glucose results . Do not use during intraven ousinfusion of N'acetylcystein e. UA RFLX MICR CULT IF [id number] 07:27:00 Test Item Value Reference Range Interpretation Comments UA COLOR (test code = COLU) YELLOW YELLOW UA APPEARANCE (test code = CLOUDY CLEAR A APPU) UA GLUCOSE DIPSTICK (test 3+ NEGATIVE A code = DGLUU) UA BILIRUBIN DIPSTICK (test NEGATIVE NEGATIVE code = BILU) UA KETONE DIPSTICK (test code NEGATIVE NEGATIVE = KETU) UA SPECIFIC GRAVITY (test 1.039 1.005-1.025 H code = SGU) UA BLOOD DIPSTICK (test code 1+ NEGATIVE A = EVELIN) UA PH DIPSTICK (test code = 5.0 5.0-8.0 KALEY) UA PROTEIN DIPSTICK (test 1+ NEGATIVE A code = PROU) UA UROBILINOGEN DIPSTICK NEGATIVE EU/dL 0.1-0.2 (test code = URO) UA NITRITE DIPSTICK (test NEGATIVE NEGATIVE code = EDMUND) UA LEUKOCYTE ESTERASE 1+ NEGATIVE A DIPSTICK (test code = LEUU) UA MICROSCOPIC NEEDED? (test YES NO A code = UAMICRO) UA WBC (test code = WBCU) 51-100 /hpf 0-3 A UA RBC (test code = RBCU) 6-10 /hpf 0-3 A UA BACTERIA (test code = RARE /HPF NEGATIVE BACU) UA SQUAMOUS CELLS (test code Many /HPF FEW = SQU) UA HYALINE CAST (test code = 6-10 /lpf NONE SEEN HYALU) UA MUCUS (test code = MUCU) OCCASIONAL /lpf Indication for culture: Suprapubic PainSpecimen Description: CLEAN CATCHBASIC METABOLIC [id number] 03:45:00 Test Item Value Reference Range Interpretation Comments SODIUM (test code = 135 mmol/L 135-145 N NA) POTASSIUM (test code 4.1 mmol/L 3.5-5.1 N = K) CHLORIDE (test code 101 mmol/L 98-107 N = CL) CARBON DIOXIDE (test 26 mmol/L 21-32 N code = CO2) ANION GAP (test code 12.1 2.0-16.0 N = GAP) GLUCOSE (test code = 289 mg/dL 65-99 H GLU) BLOOD UREA NITROGEN 26 mg/dL 4-23 H (test code = BUN) GLOMERULAR 37 ml/min >60 L The Glomerular FILTRATION RATE Filtration R ate is a (test code = GFR) calculated parameterbased on serum Creatinine, pat ient age and sex. GFR va luesless than 60 mL/min/ 1.73 square meters a re indicative ofCh ronic Kidney Disease. Values less than 15 mL/min/1.73squa re meters indicate Kidney failure. The calculation for GFR is based on the CK D-EPI (2020) calculat ion. This formulais race indifferent and is the recommended for samantha for GFRby the Nat nal Kidney Foundati on for Adults.The GFR will not calculate if th e sex is unknown or if thepatient's ag e is <18 years. CREATININE (test 1.5 mg/dL 0.6-1.5 N code = CREAT) BUN/CREATININE RATIO 17.3 12.0-20.0 N (test code = BUN/CREA) CALCIUM (test code = 9.0 mg/dL 8.5-10.1 N CA) LIVER FUNCTION [id number] 03:45:00 Test Item Value Reference Range Interpretation Comments TOTAL PROTEIN 8.4 g/dL 6.4-8.2 H (test code = PROT) ALBUMIN (test code 3.3 g/dL 3.4-5.0 L = ALB) GLOBULIN (test 5.1 g/dL 2.3-3.5 H code = GLOB) BILIRUBIN TOTAL 0.3 mg/dL 0.2-1.2 N Use of this assay is not (test code = BILT) recommend ed for patients undergoingtreat ment with Eltrombopag due to the potential for falselyelevated results. BILIRUBIN DIRECT 0.1 mg/dL 0.0-0.3 N (test code = BILD) BILIRUBIN INDIRECT 0.2 mg/dL 0.0-0.8 N (test code = BILIND) SGOT/AST (test 17 U/L 15-37 N code = AST) SGPT/ALT (test 19 U/L 6-50 N code = ALT) ALKALINE 87 U/L 45-117 N PHOSPHATASE (test code = ALKP) [id number] 03:45:00 Test Item Value Reference Range Interpretation Comments LIPASE (test code = LIP) 230 U/L 73-393 N TROP-I HIGH [id number] 03:45:00 Test Item Value Reference Range Interpretation Comments TROP-I HIGH SENSITIVITY 11 pg/mL 0-53 N CAUT ION: Units of the (test code = TROPIHS) curren t test methodology (pg /mL) differ from the prior test methodolog y (ng/mL) by a fa ctor of 1000. - CT ABD PELVIS [id number] 03:40:00 [facility]: LIZZIE HINKLE : 1950 Sex: FPatient Name: LIZZIE HINKLE Unit No: [id number] EXAMS: CPT CODE: [id number] CT ABD PELVIS W/CONT [id number] EXAM: - CT ABD PELVIS W/CONT LOCATION: H61 CLINICAL HISTORY/INDICATION: diffuse abd pain,constipation x 2 weeks COMPARISON: CT February 20, 2022. TECHNIQUE: Axial CT images of the abdomen and pelvis were obtained from the diaphragm to the lesser trochanter with IV contrast administration. Coronal and sagittal reformations were reconstructed from the axial data set. Postcontrast images were acquired in the portal venous phase This examination was performed according to our departmental dose optimization program, which includes automated exposure control, adjustment of the mA and/or kV according to patient size, and/or use of iterative reconstruction technique. FINDINGS: STATEMENT: Unless otherwise specified, incidental findings do not require dedicated imaging follow-up. LOWER THORAX:Unremarkable. LIVER: Unremarkable. GALLBLADDER/BILIARY SYSTEM: Normal CT appearance of the gallbladde r. No common duct dilatation. PANCREAS: Unremarkable. SPLEEN: No splenomegaly or focal lesions. ADRENALS: No adrenal nodules. KIDNEYS/URETERS: No hydronephrosis, stones, or solid mass lesions. VESSELS:No AAA. Patent portal vein. There is moderate atherosclerotic calcification within the abdominal aorta and its major branches. LYMPH NODES: No lymphadenopathy. PERITONEUM / RETROPERITONEUM: No free air or fluid. GI TRACT: Small bowel and colon are not dilated. No bowel wall thickening. Stomach is unremarkable. There is moderate to large volume stool in the colon and rectum. There is no evidence of colonic obstruction. The appendix is normal. GENITOURINARY ORGANS: Hysterectomy. Name: LIZZIE HINKLE MA ANA [facility] Phys: [id number] [place] [id number] : 1950 Age: 71 Sex: [place] [id number] Loc: [facility] Exam Date: 04/18/2022 Status: REG ER PH: FAX: PAGE 1 Signed Report (CONTINUED) Patient Name: LIZZIE HINKLE Unit No: [id number] EXAMS: CPT CODE: [id number] CT ABD PELVIS W/CONT 55901 (Continued) PELVIC FREE FLUID/FLUID COLLECTION: None. URINARY BLADDER: Unremarkable. EXTERNAL SOFT TISSUE: No abnormalities. BONES: Regional osseous structures are intact. IMPRESSION: 1. No acute findings demonstrated in the abdomen and pelvis. 2. Moderate to large volume stool in the colon and rectum. No evidence of colonic obstruction. at 0340 Reported and signed by: Jennifer Ramirez MD CC: Sara Almendarez MD Technologist: Brad Funez CTDI: DLP: 240.3 Trscr Dt/Tm: 04/18/2022 (0340) by:[email or web address] Electronic Signature Date/Time: 04/18/2022 (0340)Orig Print D/T: S: 04/18/2022 (0343) [facility] [place] [address] : 1950 Age: 71 Sex: [place] [address] Loc: [place] Exam Date: 04/18/2022 Status: REG ER PH: FAX: PAGE 2 Signed ReportCBC W/AUTO [id number] 03:19:00 Test Item Value Reference Range Interpretation Comments WHITE BLOOD CELL (test code = 4.6 10 3/uL 4.5-11.0 N WBC) RED BLOOD CELL (test code = 3.71 10 6/uL 3.50-5.50 N RBC) HEMOGLOBIN (test code = HGB) 11.1 g/dL 12.0-16.0 L HEMATOCRIT (test code = HCT) 33.8 % 37.0-55.0 L MEAN CELL VOLUME (test code = 91 fL 81-102 N MCV) MEAN CELL HGB (test code = 29.9 pg 26.0-34.0 N MCH) MEAN CELL HGB CONCENTRATION 32.8 g/dL 31.0-37.0 N (test code = MCHC) RED CELL DISTRIBUTION WIDTH 13.4 % 11.6-14.4 N (test code = RDW) PLATELET COUNT (test code = 270 10 3/uL 150-400 N PLT) MEAN PLATELET VOLUME (test 10.8 fL 9.0-12.6 N code = MPV) NEUTROPHIL % (test code = NT%) 49.3 % 33.0-76.0 N IMMATURE GRANULOCYTE % (test 0.4 % 0.0-1.0 N code = IG%) LYMPHOCYTE % (test code = LY%) 38.2 % 14.0-56.4 N MONOCYTE % (test code = MO%) 9.9 % 0.0-12.9 N EOSINOPHIL % (test code = EO%) 1.5 % 0.0-7.0 N BASOPHIL % (test code = BA%) 0.7 % 0-2.0 N NUCLEATED RBC % (test code = 0.0 % 0-0.2 N NRBC%) NEUTROPHIL # (test code = NT#) 2.24 10 3/uL 1.5-7.0 N IMMATURE GRANULOCYTE # (test 0.020 x10 3/uL 0.000-0.100 N code = IG#) LYMPHOCYTE # (test code = LY#) 1.74 10 3/uL 1.50-4.00 N MONOCYTE # (test code = MO#) 0.45 10 3/uL 0.20-0.80 N EOSINOPHIL # (test code = EO#) 0.07 10 3/uL 0.0-0.5 N BASOPHIL # (test code = BA#) 0.03 10 3/uL 0.0-0.1 N NUCLEATED RBC # (test code = 0.000 10 3/uL 0.000-0.012 N NRBC#) COMPREHENSIVE METABOLIC [id number] 13:11:00 Test Item Value Reference Range Interpretation Comments SODIUM (test code 126 mmol/L 135-145 L = NA) POTASSIUM (test 5.6 mmol/L 3.5-5.1 H HEMOLYZED-MO DERATE code = K) CHLORIDE (test 94 mmol/L 98-107 L code = CL) CARBON DIOXIDE 18 mmol/L 21-32 L (test code = CO2) ANION GAP (test 19.6 2.0-16.0 H code = GAP) GLUCOSE (test code 479 mg/dL 65-99 HH Critical Value reported = GLU) toFirst Name:SA SOLIS Last Name:MDRES ULTS READ BACK AND VERIFI EDby NCLAB.VINNY, on , @ 1102. BLOOD UREA 26 mg/dL 4-23 H NITROGEN (test code = BUN) GLOMERULAR 41 ml/min >60 L The Glomerular Filtration FILTRATION RATE Rate is a ca lculated (test code = GFR) parameterb ased on serum Creatinine, pat ient age and sex. GFR va luesless than 60 mL/min/ 1.73 square meters a re indicative ofCh ronic Kidney Disease. Values less than 15 mL/min/1.73squa re meters indicate Kidney failure. The calculation forGFR is based on the CK D-EPI (2020) calculat ion. This formulais race indifferent and is the recommended for samantha for GFRby the [facility] for Adults.The GFR will not ca lculate if the sex is unkn own or if thepatient's ag e is <18 years. CREATININE (test 1.4 mg/dL 0.6-1.5 N code = CREAT) BUN/CREATININE 18.6 12.0-20.0 N RATIO (test code = BUN/CREA) TOTAL PROTEIN 7.8 g/dL 6.4-8.2 N (test code = PROT) ALBUMIN (test code 2.9 g/dL 3.4-5.0 L = ALB) CALCIUM (test code 8.7 mg/dL 8.5-10.1 N = CA) BILIRUBIN TOTAL 0.7 mg/dL 0.2-1.2 N Use of this assay is not (test code = BILT) recommend ed for patients undergoingtreat ment with Eltrombopag due to the potential for falselyelevated results. SGOT/AST (test 39 U/L 15-37 H code = AST) SGPT/ALT (test 19 U/L 6-50 N code = ALT) ALKALINE 90 U/L 45-117 N PHOSPHATASE (test code = ALKP) [id number] 13:11:00 Test Item Value Reference Range Interpretation Comments LIPASE (test code = LIP) 171 U/L 73-393 N TROP-I HIGH [id number] 13:11:00 Test Item Value Reference Range Interpretation Comments TROP-I HIGH 696 pg/mL 0-53 HH Critical Value SENSITIVITY (test code repor sarah beth toFirst = TROPIHS) Name:ARLET Lambert ast Name:MDRESULTS READ BACK AND NIELS Curran NCLAB.VINNY, on , @ 7765.CAUTION: Units of the current test methodology (pg /mL) differ from the prior test methodolog y (ng/mL) by a fa ctor of 1000. ACETONE [id number] 13:11:00 Test Item Value Reference Range Interpretation Comments ACETONE QUAL (test code = ACETNQL) MODERATE NEGATIVE A BETA [id number] 13:11:00 Test Item Value Reference Range Interpretation Comments BETA HYDROBUTYRATE (test 45 mg/dL See_Comment A Ref erence Range:All code = BETHYD) Ages (fasting ): 0.2 - 2.8Performed At : [facility] [place] [id number] Barnett MD Ph:[phone] [Automated mess age] The system [email or web address] generated this result transmitted ref erence range: (). The reference range was not used to int erpret this result as normal/abnormal . [id number] 11:59:00 Test Item Value Reference Range Interpretation Comments GLUBED (test 232 mg/dL 70-105 H Intravenous adm inistration code = GLUBED) of N-acetylcy steine which resultsin blood concentrations >5 mg/dL will cause overestim ationof blood glucose results . Do not use during intraven ousinfusion of N'acetylcyst eine. THROMBOPLASTIN TIME [id number] 09:36:00 Test Item Value Reference Range Interpretation Comments THROMBOPLASTIN TIME PARTIAL 48.0 SECONDS 25.1-36.5 H (test code = PTT) [id number] 05:16:00 Test Item Value Reference Range Interpretation Comments GLUBED (test 229 mg/dL 70-105 H Intravenous adm inistration code = GLUBED) of N-acetylcy steine which resultsin blood concentrations >5 mg/dL will cause overestim ationof blood glucose results . Do not use during intraven ousinfusion of N'acetylcyst eine. THROMBOPLASTIN TIME [id number] 04:00:00 Test Item Value Reference Range Interpretation Comments THROMBOPLASTIN TIME PARTIAL 52.5 SECONDS 25.1-36.5 H (test code = PTT) CBC W/AUTO [id number] 03:44:00 Test Item Value Reference Range Interpretation Comments WHITE BLOOD CELL (test code = 3.0 10 3/uL 4.5-11.0 L WBC) RED BLOOD CELL (test code = 2.78 10 6/uL 3.50-5.50 L RBC) HEMOGLOBIN (test code = HGB) 8.4 g/dL 12.0-16.0 L HEMATOCRIT (test code = HCT) 25.4 % 37.0-55.0 L MEAN CELL VOLUME (test code = 91 fL 81-102 N MCV) MEAN CELL HGB (test code = 30.2 pg 26.0-34.0 N MCH) MEAN CELL HGB CONCENTRATION 33.1 g/dL 31.0-37.0 N (test code = MCHC) RED CELL DISTRIBUTION WIDTH 15.0 % 11.6-14.4 H (test code = RDW) PLATELET COUNT (test code = 226 10 3/uL 150-400 N PLT) MEAN PLATELET VOLUME (test 10.8 fL 9.0-12.6 N code = MPV) NEUTROPHIL % (test code = NT%) 38.6 % 33.0-76.0 N IMMATURE GRANULOCYTE % (test 0.3 % 0.0-1.0 N code = IG%) LYMPHOCYTE % (test code = LY%) 45.3 % 14.0-56.4 N MONOCYTE % (test code = MO%) 12.8 % 0.0-12.9 N EOSINOPHIL % (test code = EO%) 2.3 % 0.0-7.0 N BASOPHIL % (test code = BA%) 0.7 % 0-2.0 N NUCLEATED RBC % (test code = 0.0 % 0-0.2 N NRBC%) NEUTROPHIL # (test code = NT#) 1.15 10 3/uL 1.5-7.0 L IMMATURE GRANULOCYTE # (test 0.010 x10 3/uL 0.000-0.100 N code = IG#) LYMPHOCYTE # (test code = LY#) 1.35 10 3/uL 1.50-4.00 L MONOCYTE # (test code = MO#) 0.38 10 3/uL 0.20-0.80 N EOSINOPHIL # (test code = EO#) 0.07 10 3/uL 0.0-0.5 N BASOPHIL # (test code = BA#) 0.02 10 3/uL 0.0-0.1 N NUCLEATED RBC # (test code = 0.000 10 3/uL 0.000-0.012 N NRBC#) BASIC METABOLIC [id number] 03:39:00 Test Item Value Reference Range Interpretation Comments SODIUM (test code = 135 mmol/L 135-145 N NA) POTASSIUM (test code 4.0 mmol/L 3.5-5.1 N = K) CHLORIDE (test code 103 mmol/L 98-107 N = CL) CARBON DIOXIDE (test 27 mmol/L 21-32 N code = CO2) ANION GAP (test code 9.0 2.0-16.0 N = GAP) GLUCOSE (test code = 195 mg/dL 65-99 H GLU) BLOOD UREA NITROGEN 12 mg/dL 4-23 N (test code = BUN) GLOMERULAR 49 ml/min >60 L The Glomerular FILTRATION RATE Filtration R ate is a (test code = GFR) calculated parameterbased on serum Creatinine, pat ient age and sex. GFR va luesless than 60 mL/min/ 1.73 square meters a re indicative ofCh ronic Kidney Disease. Values less than 15 mL/min/1.73squa re meters indicate Kidney failure. The calculation for GFR is based on the CK D-EPI (2020) calculat ion. This formulais race indifferent and is the recommended for samantha for GFRby the [facility] for Adults.The GFR will not calculate if th e sex is unknown or if thepatient's ag e is <18 years. CREATININE (test 1.2 mg/dL 0.6-1.5 N code = CREAT) BUN/CREATININE RATIO 10.0 12.0-20.0 L (test code = BUN/CREA) CALCIUM (test code = 8.5 mg/dL 8.5-10.1 N CA) [id number] 03:39:00 Test Item Value Reference Range Interpretation Comments MAGNESIUM (test code = MAG) 1.7 mg/dL 1.8-2.4 L THROMBOPLASTIN TIME [id number] 21:36:00 Test Item Value Reference Range Interpretation Comments THROMBOPLASTIN TIME PARTIAL 52.3 SECONDS 25.1-36.5 H (test code = PTT) [id number] 19:24:00 Test Item Value Reference Range Interpretation Comments GLUBED (test 161 mg/dL 70-105 H Intravenous adm inistration code = GLUBED) of N-acetylcy steine which resultsin blood concentrations >5 mg/dL will cause overestim ationof blood glucose results . Do not use during intraven ousinfusion of N'acetylcyst eine. [id number] 17:49:00 Test Item Value Reference Range Interpretation Comments GLUBED (test 146 mg/dL 70-105 H Intravenous adm inistration code = GLUBED) of N-acetylcy steine which resultsin blood concentrations >5 mg/dL will cause overestim ationof blood glucose results . Do not use during intraven ousinfusion of N'acetylcyst eine. [id number] 16:28:00 Test Item Value Reference Range Interpretation Comments GLUBED (test 54 mg/dL 70-105 L Intravenous adm inistration of code = GLUBED) N-acetylcyste ine which resultsin blood concentrations >5 mg/dL will cause overestim ationof blood glucose results . Do not use during intraven ousinfusion of N'acetylcystein e. THROMBOPLASTIN TIME [id number] 15:39:00 Test Item Value Reference Range Interpretation Comments THROMBOPLASTIN TIME PARTIAL 50.9 SECONDS 25.1-36.5 H (test code = PTT) [id number] 11:37:00 Test Item Value Reference Range Interpretation Comments GLUBED (test 202 mg/dL 70-105 H Intravenous adm inistration code = GLUBED) of N-acetylcy steine which resultsin blood concentrations >5 mg/dL will cause overestim ationof blood glucose results . Do not use during intraven ousinfusion of N'acetylcyst eine. THROMBOPLASTIN TIME [id number] 09:17:00 Test Item Value Reference Range Interpretation Comments THROMBOPLASTIN TIME 72.4 SECONDS 25.1-36.5 HH Critical Value PARTIAL (test code = reporte d toFirst PTT) Name:LATANYA Last Name:LEANDRA RNRESULTS READ BACK AND VERIFIEDby NCLABSHARI, on 03/13/22, @ 091 7. Spec Comments: PATIENT ON HEPARIN [id number] 08:46:00 Test Item Value Reference Range Interpretation Comments GLUBED (test 106 mg/dL 70-105 H Intravenous adm inistration code = GLUBED) of N-acetylcy steine which resultsin blood concentrations >5 mg/dL will cause overestim ationof blood glucose results . Do not use during intraven ousinfusion of N'acetylcyst eine. [id number] 07:09:00 Test Item Value Reference Range Interpretation Comments GLUBED (test 43 mg/dL 70-105 LL CRITICAL RESULT - TESTING code = GLUBED) PERFORMED BY PRIMARY CAREGIVERIntrav enous administration of N-acetylcystein e which resultsin blood concentrations >5 mg/dL will cause overestim ationof blood glucose results . Do not use during intraven ousinfusion of N'acetylcystein e. BASIC METABOLIC [id number] 06:55:00 Test Item Value Reference Range Interpretation Comments SODIUM (test code = 137 mmol/L 135-145 N NA) POTASSIUM (test code 3.7 mmol/L 3.5-5.1 N = K) CHLORIDE (test code 105 mmol/L 98-107 N = CL) CARBON DIOXIDE (test 28 mmol/L 21-32 N code = CO2) ANION GAP (test code 7.7 2.0-16.0 N = GAP) GLUCOSE (test code = 52 mg/dL 65-99 L GLU) BLOOD UREA NITROGEN 13 mg/dL 4-23 N (test code = BUN) GLOMERULAR 54 ml/min >60 L The Glomerular FILTRATION RATE Filtration R ate is a (test code = GFR) calculated parameterbased on serum Creatinine, pat ient age and sex. GFR va luesless than 60 mL/min/ 1.73 square meters a re indicative ofCh ronic Kidney Disease. Values less than 15 mL/min/1.73squa re meters indicate Kidney failure. The calculation for GFR is based on the CK D-EPI (2020) calculat ion. This formulais race indifferent and is the recommended for samantha for GFRby the [facility] on for Adults.The GFR will not calculate if th e sex is unknown or if thepatient's ag e is <18 years. CREATININE (test 1.1 mg/dL 0.6-1.5 N code = CREAT) BUN/CREATININE RATIO 11.8 12.0-20.0 L (test code = BUN/CREA) CALCIUM (test code = 8.2 mg/dL 8.5-10.1 L CA) [id number] 06:55:00 Test Item Value Reference Range Interpretation Comments MAGNESIUM (test code = MAG) 1.7 mg/dL 1.8-2.4 L CBC W/AUTO [id number] 06:39:00 Test Item Value Reference Range Interpretation Comments WHITE BLOOD CELL (test code = 3.8 10 3/uL 4.5-11.0 L WBC) RED BLOOD CELL (test code = 3.05 10 6/uL 3.50-5.50 L RBC) HEMOGLOBIN (test code = HGB) 8.9 g/dL 12.0-16.0 L HEMATOCRIT (test code = HCT) 27.7 % 37.0-55.0 L MEAN CELL VOLUME (test code = 91 fL 81-102 N MCV) MEAN CELL HGB (test code = 29.2 pg 26.0-34.0 N MCH) MEAN CELL HGB CONCENTRATION 32.1 g/dL 31.0-37.0 N (test code = MCHC) RED CELL DISTRIBUTION WIDTH 15.2 % 11.6-14.4 H (test code = RDW) PLATELET COUNT (test code = 228 10 3/uL 150-400 N PLT) MEAN PLATELET VOLUME (test 10.5 fL 9.0-12.6 N code = MPV) NEUTROPHIL % (test code = NT%) 44.4 % 33.0-76.0 N IMMATURE GRANULOCYTE % (test 0.3 % 0.0-1.0 N code = IG%) LYMPHOCYTE % (test code = LY%) 39.9 % 14.0-56.4 N MONOCYTE % (test code = MO%) 12.2 % 0.0-12.9 N EOSINOPHIL % (test code = EO%) 2.4 % 0.0-7.0 N BASOPHIL % (test code = BA%) 0.8 % 0-2.0 N NUCLEATED RBC % (test code = 0.0 % 0-0.2 N NRBC%) NEUTROPHIL # (test code = NT#) 1.67 10 3/uL 1.5-7.0 N IMMATURE GRANULOCYTE # (test 0.010 x10 3/uL 0.000-0.100 N code = IG#) LYMPHOCYTE # (test code = LY#) 1.50 10 3/uL 1.50-4.00 N MONOCYTE # (test code = MO#) 0.46 10 3/uL 0.20-0.80 N EOSINOPHIL # (test code = EO#) 0.09 10 3/uL 0.0-0.5 N BASOPHIL # (test code = BA#) 0.03 10 3/uL 0.0-0.1 N NUCLEATED RBC # (test code = 0.000 10 3/uL 0.000-0.012 N NRBC#) THROMBOPLASTIN TIME [id number] 22:11:00 Test Item Value Reference Range Interpretation Comments THROMBOPLASTIN TIME PARTIAL 62.2 SECONDS 25.1-36.5 H (test code = PTT) [id number] 20:38:00 Test Item Value Reference Range Interpretation Comments GLUBED (test 152 mg/dL 70-105 H Intravenous adm inistration code = GLUBED) of N-acetylcy steine which resultsin blood concentrations >5 mg/dL will cause overestim ationof blood glucose results . Do not use during intraven ousinfusion of N'acetylcyst eine. [id number] 18:19:00 Test Item Value Reference Range Interpretation Comments GLUBED (test 162 mg/dL 70-105 H Intravenous adm inistration code = GLUBED) of N-acetylcy steine which resultsin blood concentrations >5 mg/dL will cause overestim ationof blood glucose results . Do not use during intraven ousinfusion of N'acetylcyst eine. [id number] 17:14:00 Test Item Value Reference Range Interpretation Comments GLUBED (test 57 mg/dL 70-105 L Intravenous adm inistration of code = GLUBED) N-acetylcyste ine which resultsin blood concentrations >5 mg/dL will cause overestim ationof blood glucose results . Do not use during intraven ousinfusion of N'acetylcystein e. THROMBOPLASTIN TIME [id number] 15:56:00 Test Item Value Reference Range Interpretation Comments THROMBOPLASTIN TIME PARTIAL 63.4 SECONDS 25.1-36.5 H (test code = PTT) [id number] 13:23:00 Test Item Value Reference Range Interpretation Comments GLUBED (test 261 mg/dL 70-105 H Intravenous adm inistration code = GLUBED) of N-acetylcy steine which resultsin blood concentrations >5 mg/dL will cause overestim ationof blood glucose results . Do not use during intraven ousinfusion of N'acetylcyst eine. [id number] 13:13:00 Test Item Value Reference Range Interpretation Comments GLUBED (test 64 mg/dL 70-105 L Intravenous adm inistration of code = GLUBED) N-acetylcyste ine which resultsin blood concentrations >5 mg/dL will cause overestim ationof blood glucose results . Do not use during intraven ousinfusion of N'acetylcystein e. THROMBOPLASTIN TIME [id number] 08:06:00 Test Item Value Reference Range Interpretation Comments THROMBOPLASTIN TIME 100.8 SECONDS 25.1-36.5 HH Critica l Value PARTIAL (test code = reporte d toFirst PTT) Name:NAOMI morales Name:JULIANNE RNDOROTHEAULTS READ BACK AND VERIFIEDby NCLAB.NW, on 03/12/22, @ 080 6. [id number] 07:28:00 Test Item Value Reference Range Interpretation Comments GLUBED (test 110 mg/dL 70-105 H Intravenous adm inistration code = GLUBED) of N-acetylcy steine which resultsin blood concentrations >5 mg/dL will cause overestim ationof blood glucose results . Do not use during intraven ousinfusion of N'acetylcyst eine. BASIC METABOLIC [id number] 04:35:00 Test Item Value Reference Range Interpretation Comments SODIUM (test code 138 mmol/L 135-145 N = NA) POTASSIUM (test 3.7 mmol/L 3.5-5.1 N code = K) CHLORIDE (test 107 mmol/L 98-107 N code = CL) CARBON DIOXIDE 28 mmol/L 21-32 N (test code = CO2) ANION GAP (test 6.7 2.0-16.0 code = GAP) GLUCOSE (test code 148 mg/dL 65-99 H = GLU) BLOOD UREA 17 mg/dL 4-23 N NITROGEN (test code = BUN) GLOMERULAR >=60 max >60 The Glomerular FILTRATION RATE estimate ml/min Filtratio n Rate is a (test code = GFR) calculated parameterbased on serum Creatinin e, patient age and sex. GFR valuesless than 60 mL/min/1.73 square meters are libra cative ofChronic Kidne y Disease. Values less than 15 mL/min/1.73squa re meters indicate Kidney failure. The calculation for GFR is based on the CK D-EPI (2020) calculat ion. This formulais race indifferent and is the recommended formula for GFR by the National Kidney Foundation for Adults.The GFR will not calculate i f the sex is unknown or if thepatient's ag e is <18 years. CREATININE (test 1.0 mg/dL 0.6-1.5 N code = CREAT) BUN/CREATININE 17.0 12.0-20.0 N RATIO (test code = BUN/CREA) CALCIUM (test code 8.2 mg/dL 8.5-10.1 L = CA) [id number] 04:35:00 Test Item Value Reference Range Interpretation Comments PHOSPHOROUS (test code = PHOS) 3.1 mg/dL 2.5-4.9 N [id number] 04:35:00 Test Item Value Reference Range Interpretation Comments MAGNESIUM (test code = MAG) 2.3 mg/dL 1.8-2.4 N CBC W/AUTO [id number] 04:17:00 Test Item Value Reference Range Interpretation Comments WHITE BLOOD CELL (test code = 5.0 10 3/uL 4.5-11.0 N WBC) RED BLOOD CELL (test code = 2.66 10 6/uL 3.50-5.50 L RBC) HEMOGLOBIN (test code = HGB) 8.0 g/dL 12.0-16.0 L HEMATOCRIT (test code = HCT) 24.1 % 37.0-55.0 L MEAN CELL VOLUME (test code = 91 fL 81-102 N MCV) MEAN CELL HGB (test code = 30.1 pg 26.0-34.0 N MCH) MEAN CELL HGB CONCENTRATION 33.2 g/dL 31.0-37.0 N (test code = MCHC) RED CELL DISTRIBUTION WIDTH 14.5 % 11.6-14.4 H (test code = RDW) PLATELET COUNT (test code = 233 10 3/uL 150-400 N PLT) MEAN PLATELET VOLUME (test 10.7 fL 9.0-12.6 N code = MPV) NEUTROPHIL % (test code = NT%) 56.1 % 33.0-76.0 N IMMATURE GRANULOCYTE % (test 0.4 % 0.0-1.0 N code = IG%) LYMPHOCYTE % (test code = LY%) 31.1 % 14.0-56.4 N MONOCYTE % (test code = MO%) 10.4 % 0.0-12.9 N EOSINOPHIL % (test code = EO%) 1.2 % 0.0-7.0 N BASOPHIL % (test code = BA%) 0.8 % 0-2.0 N NUCLEATED RBC % (test code = 0.0 % 0-0.2 N NRBC%) NEUTROPHIL # (test code = NT#) 2.80 10 3/uL 1.5-7.0 N IMMATURE GRANULOCYTE # (test 0.020 x10 3/uL 0.000-0.100 N code = IG#) LYMPHOCYTE # (test code = LY#) 1.55 10 3/uL 1.50-4.00 N MONOCYTE # (test code = MO#) 0.52 10 3/uL 0.20-0.80 N EOSINOPHIL # (test code = EO#) 0.06 10 3/uL 0.0-0.5 N BASOPHIL # (test code = BA#) 0.04 10 3/uL 0.0-0.1 N NUCLEATED RBC # (test code = 0.000 10 3/uL 0.000-0.012 N NRBC#) [id number] 00:35:00 Test Item Value Reference Range Interpretation Comments POTASSIUM (test code = K) 3.9 mmol/L 3.5-5.1 N [id number] 00:35:00 Test Item Value Reference Range Interpretation Comments MAGNESIUM (test code = MAG) 1.7 mg/dL 1.8-2.4 L THROMBOPLASTIN TIME [id number] 00:35:00 Test Item Value Reference Range Interpretation Comments THROMBOPLASTIN TIME PARTIAL 30.3 SECONDS 25.1-36.5 N (test code = PTT) Spec Comments: HE[place] [id number] 23:51:00 Test Item Value Reference Range Interpretation Comments GLUBED (test 119 mg/dL 70-105 H Intravenous adm inistration code = GLUBED) of N-acetylcy steine which resultsin blood concentrations >5 mg/dL will cause overestim ationof blood glucose results . Do not use during intraven ousinfusion of N'acetylcyst eine. [id number] 22:59:00 Test Item Value Reference Range Interpretation Comments GLUBED (test 114 mg/dL 70-105 H Intravenous adm inistration code = GLUBED) of N-acetylcy steine which resultsin blood concentrations >5 mg/dL will cause overestim ationof blood glucose results . Do not use during intraven ousinfusion of N'acetylcyst eine. BASIC METABOLIC [id number] 22:49:00 Test Item Value Reference Range Interpretation Comments SODIUM (test code 138 mmol/L 135-145 N = NA) POTASSIUM (test 3.7 mmol/L 3.5-5.1 N code = K) CHLORIDE (test 105 mmol/L 98-107 N code = CL) CARBON DIOXIDE 26 mmol/L 21-32 N (test code = CO2) ANION GAP (test 10.7 2.0-16.0 N code = GAP) GLUCOSE (test code 34 mg/dL 65-99 LL Critical Value = GLU) reported toFirs t Name:DONYA Lambert ast Name:LORENZO JUSTICE READ BACK AND VERIFIEDby [id number] [id number], on 03/11/22, @ 0339. BLOOD UREA 20 mg/dL 4-23 N NITROGEN (test code = BUN) GLOMERULAR >=60 max >60 The Glomerular FILTRATION RATE estimate ml/min Filtratio n Rate is a (test code = GFR) calculated parameterbased on serum Creatinin e, patient age and sex. GFR valuesless than 60 mL/min/1.73 square meters are libra cative ofChronic Kidne y Disease. Values less than 15 mL/min/1.73squa re meters indicate Kidney failure. The calculation for GFR is based on the CK D-EPI (2020) calculat ion. This formulais race indifferent and is the recommended formula for GFR by the [employer] for Adults.The GFR will not calculate i f the sex is unknown or if thepatient's ag e is <18 years. CREATININE (test 1.0 mg/dL 0.6-1.5 N code = CREAT) BUN/CREATININE 20.0 12.0-20.0 N RATIO (test code = BUN/CREA) CALCIUM (test code 8.7 mg/dL 8.5-10.1 N = CA) [id number] 22:49:00 Test Item Value Reference Range Interpretation Comments PHOSPHOROUS (test code = PHOS) 3.2 mg/dL 2.5-4.9 N [id number] 22:49:00 Test Item Value Reference Range Interpretation Comments MAGNESIUM (test code = MAG) 1.6 mg/dL 1.8-2.4 L TROP-I HIGH [id number] 22:49:00 Test Item Value Reference Range Interpretation Comments TROP-I HIGH 1915 pg/mL 0-53 HH Critical Value SENSITIVITY (test code repor sarah beth toFirst = TROPIHS) Name:DONYA Lambert ast Name:DECLAN KUMAR READ BACK AND VERIFIEDby [id number] [id number], on 03/11/22, @ 8953.CAUTION: U nits of the current test methodology (pg /mL) differ from the prior test methodolog y (ng/mL) by a fa ctor of 1000. CBC W/AUTO [id number] 22:23:00 Test Item Value Reference Range Interpretation Comments WHITE BLOOD CELL (test code = 7.1 10 3/uL 4.5-11.0 N WBC) RED BLOOD CELL (test code = 2.85 10 6/uL 3.50-5.50 L RBC) HEMOGLOBIN (test code = HGB) 8.7 g/dL 12.0-16.0 L HEMATOCRIT (test code = HCT) 26.0 % 37.0-55.0 L MEAN CELL VOLUME (test code = 91 fL 81-102 N MCV) MEAN CELL HGB (test code = 30.5 pg 26.0-34.0 N MCH) MEAN CELL HGB CONCENTRATION 33.5 g/dL 31.0-37.0 N (test code = MCHC) RED CELL DISTRIBUTION WIDTH 14.9 % 11.6-14.4 H (test code = RDW) PLATELET COUNT (test code = 269 10 3/uL 150-400 N PLT) MEAN PLATELET VOLUME (test 10.9 fL 9.0-12.6 N code = MPV) NEUTROPHIL % (test code = NT%) 43.3 % 33.0-76.0 N IMMATURE GRANULOCYTE % (test 0.4 % 0.0-1.0 N code = IG%) LYMPHOCYTE % (test code = LY%) 42.2 % 14.0-56.4 N MONOCYTE % (test code = MO%) 11.8 % 0.0-12.9 N EOSINOPHIL % (test code = EO%) 1.6 % 0.0-7.0 N BASOPHIL % (test code = BA%) 0.7 % 0-2.0 N NUCLEATED RBC % (test code = 0.0 % 0-0.2 N NRBC%) NEUTROPHIL # (test code = NT#) 3.07 10 3/uL 1.5-7.0 N IMMATURE GRANULOCYTE # (test 0.030 x10 3/uL 0.000-0.100 N code = IG#) LYMPHOCYTE # (test code = LY#) 2.99 10 3/uL 1.50-4.00 N MONOCYTE # (test code = MO#) 0.84 10 3/uL 0.20-0.80 H EOSINOPHIL # (test code = EO#) 0.11 10 3/uL 0.0-0.5 N BASOPHIL # (test code = BA#) 0.05 10 3/uL 0.0-0.1 N NUCLEATED RBC # (test code = 0.000 10 3/uL 0.000-0.012 N NRBC#) ARTERIAL BLOOD [id number] 21:48:00 Test Item Value Reference Range Interpretation Comments ARTERIAL BLOOD GAS PH (test code 7.414 7.35-7.45 N = PHA) ARTERIAL BLOOD GAS PCO2 (test 39.2 mmHg 35.0-45.0 N code = PCO2A) ARTERIAL BLOOD GAS PO2 (test 76.2 mmHg 80.0-100.0 L code = PO2A) BICARBONATE TOTAL HCO3 (test 24.5 mmol/L 22.0-26.0 N code = HCO3) BASE EXCESS (test code = ROSEANNE) 0.0 mmol/L 0.0-2.0 N ABG O2 SATURATION (test code = 95.2 % 94.0-98.0 N SATA) ABG TYPE (test code = TYPEA) Arterial ARTERIAL FIO2 (test code = 21.0 % FIO2A) ABG VENT MODE (test code = Room Air MODEA) ABG SITE (test code = SITEA) Right Radial ALLENS TEST (test code = ALLENS) Yes TOTAL HGB (test code = THB) 9.5 g/dL 12.0-16.0 L TCO2 ARTERIAL (test code = 25.7 mL/dL 15-23 H TCO2A) PaO2/[id number] 21:48:00 Test Item Value Reference Range Interpretation Comments PaO2/FiO2 (test code = [id number]) 362.80 >200 ELECTROLYTES [id number] 21:03:00 Test Item Value Reference Range Interpretation Comments SODIUM (test code = NA) 135 mmol/L 135-145 N POTASSIUM (test code = K) 3.2 mmol/L 3.5-5.1 L CHLORIDE (test code = CL) 105 mmol/L 98-107 N CARBON DIOXIDE (test code = CO2) 23 mmol/L 21-32 N ANION GAP (test code = GAP) 10.2 2.0-16.0 N Comments to Phleb: FOR POTASSIUM, MAGNESIUM AND [id number] 20:56:00 Test Item Value Reference Range Interpretation Comments GLUBED (test 63 mg/dL 70-105 L Intravenous adm inistration of code = GLUBED) N-acetylcyste ine which resultsin blood concentrations >5 mg/dL will cause overestim ationof blood glucose results . Do not use during intraven ousinfusion of N'acetylcystein e. [id number] 20:12:00 Test Item Value Reference Range Interpretation Comments GLUBED (test 112 mg/dL 70-105 H Intravenous adm inistration code = GLUBED) of N-acetylcy steine which resultsin blood concentrations >5 mg/dL will cause overestim ationof blood glucose results . Do not use during intraven ousinfusion of N'acetylcyst eine. TROP-I HIGH [id number] 19:17:00 Test Item Value Reference Range Interpretation Comments TROP-I HIGH 2447 pg/mL 0-53 HH Critical Value SENSITIVITY (test code repor sarah beth toFirst = TROPIHS) Name:TOMAS Lan Name:DEYA DUMONT READ BACK AND VERIFIEDby [id number], on 03/11/22, @ 1918.CAUTION: U nits of the current test methodology (pg /mL) differ from the prior test methodolog y (ng/mL) by a fa ctor of 1000. PROTHROMBIN [id number] 19:15:00 Test Item Value Reference Range Interpretation Comments PROTHROMBIN TIME 10.7 SECONDS 9.4-12.5 N PATIENT (test code = PTP) INTERNATIONAL 1.0 RATIO 0.8-1.1 N THE INR IS USE FUL ONLY NORMAL RATIO (test FOR MONIT ORING code = INR) ANTICOAGULANT THERAPY.IT MAY BE UNRELIABLE IN T HE INITIAL PHASE O F ANTICOAGULATION AND IN UNSTABLE PATIEN TS. 2.0-3.0 is the recommended INR for the following:Preve ntion of venous thrombol ism in high-risk patients;treatm ent of venous thrombos is and pulmonary embol ism aftera course o f heparin; preven tion of systemic emboli sm in avariety of con dition, including atria l fibrillation andprosthetic t issue heart valves.2. 5-3.5 is the recommended INR for the following:Prost hetic mechanical hear t values and/or recurren t systemicemboliz ation. LACTIC [id number] 19:08:00 Test Item Value Reference Range Interpretation Comments LACTIC ACID (test code = LACT) 1.0 mmol/L 0.4-2.0 N THROMBOPLASTIN TIME [id number] 19:08:00 Test Item Value Reference Range Interpretation Comments THROMBOPLASTIN TIME PARTIAL 28.5 SECONDS 25.1-36.5 N (test code = PTT) HGBA1C - GLYCOSYLATED [id number] 19:08:00 Test Item Value Reference Range Interpretation Comments GLYCOSYLATED 11.0 % 4.5-5.9 H The [place] D iabetes HEMOGLOBIN (HA1C) Associatio n recommends a (test code = GLYHGB) therape uticrange of <7.0% Hemoglobin A1c for patients with diabetesmellitu s (Type 2 diabetes). BASIC METABOLIC [id number] 19:02:00 Test Item Value Reference Range Interpretation Comments SODIUM (test code = 132 mmol/L 135-145 L NA) POTASSIUM (test code 3.3 mmol/L 3.5-5.1 L = K) CHLORIDE (test code 101 mmol/L 98-107 N = CL) CARBON DIOXIDE (test 24 mmol/L 21-32 N code = CO2) ANION GAP (test code 10.3 2.0-16.0 = GAP) GLUCOSE (test code = 233 mg/dL 65-99 H GLU) BLOOD UREA NITROGEN 22 mg/dL 4-23 N (test code = BUN) GLOMERULAR 54 ml/min >60 L The Glomerular FILTRATION RATE Filtration R ate is a (test code = GFR) calculated parameterbased on serum Creatinine, pat ient age and sex. GFR va luesless than 60 mL/min/ 1.73 square meters a re indicative ofCh ronic Kidney Disease. Values less than 15 mL/min/1.73squa re meters indicate Kidney failure. The calculation for GFR is based on the CK D-EPI (2020) calculat ion. This formulais race indifferent and is the recommended for samantha for GFRby the Natio nal Kidney Foundati on for Adults.The GFR will not calculate if th e sex is unknown or if thepatient's ag e is <18 years. CREATININE (test 1.1 mg/dL 0.6-1.5 N code = CREAT) BUN/CREATININE RATIO 20.0 12.0-20.0 N (test code = BUN/CREA) CALCIUM (test code = 8.0 mg/dL 8.5-10.1 L CA) [id number] 19:02:00 Test Item Value Reference Range Interpretation Comments PHOSPHOROUS (test code = PHOS) 2.9 mg/dL 2.5-4.9 N [id number] 19:02:00 Test Item Value Reference Range Interpretation Comments MAGNESIUM (test code = MAG) 1.5 mg/dL 1.8-2.4 L [id number] 18:28:00 Test Item Value Reference Range Interpretation Comments GLUBED (test 234 mg/dL 70-105 H Intravenous adm inistration code = GLUBED) of N-acetylcy steine which resultsin blood concentrations >5 mg/dL will cause overestim ationof blood glucose results . Do not use during intraven ousinfusion of N'acetylcyst eine. [id number] 17:44:00 Test Item Value Reference Range Interpretation Comments GLUBED (test 262 mg/dL 70-105 H Intravenous adm inistration code = GLUBED) of N-acetylcy steine which resultsin blood concentrations >5 mg/dL will cause overestim ationof blood glucose results . Do not use during intraven ousinfusion of N'acetylcyst eine. [id number] 16:34:00 Test Item Value Reference Range Interpretation Comments GLUBED (test 334 mg/dL 70-105 H Intravenous adm inistration code = GLUBED) of N-acetylcy steine which resultsin blood concentrations >5 mg/dL will cause overestim ationof blood glucose results . Do not use during intraven ousinfusion of N'acetylcyst eine. [id number] 14:58:00 Test Item Value Reference Range Interpretation Comments GLUBED (test 404 mg/dL 70-105 HH CRITICAL RESULT - TESTING code = GLUBED) PERFORMED BY PRIMARY CAREGIVERIntrav enous administration of N-acetylcystein e which resultsin blood concentrations >5 mg/dL will cause overestim ationof blood glucose results . Do not use during intraven ousinfusion of N'acetylcystein e. BASIC METABOLIC [id number] 14:10:00 Test Item Value Reference Range Interpretation Comments SODIUM (test code = 125 mmol/L 135-145 L NA) POTASSIUM (test code 5.3 mmol/L 3.5-5.1 H = K) CHLORIDE (test code 93 mmol/L 98-107 L = CL) CARBON DIOXIDE (test 15 mmol/L 21-32 L code = CO2) ANION GAP (test code 22.3 2.0-16.0 H = GAP) GLUCOSE (test code = 477 mg/dL 65-99 HH Critica l Value reported GLU) toFirst Name:AM REYMUNDO Last Name:ALYCE DUMONT READ BACK AND VERIFI EDby [id number], on , @ 1404. BLOOD UREA NITROGEN 23 mg/dL 4-23 N (test code = BUN) GLOMERULAR 45 ml/min >60 L The Glomerular FILTRATION RATE Filtration R ate is a (test code = GFR) calculated parameterbased on serum Creatinine, pat ient age and sex. GFR va luesless than 60 mL/min/ 1.73 square meters a re indicative ofCh ronic Kidney Disease. Values less than 15 mL/min/1.73squa re meters indicate Kidney failure. The calculation for GFR is based on the CK D-EPI (2020) calculat ion. This formulais race indifferent and is the recommended for samantha for GFRby the Natio nal Kidney Foundati on for Adults.The GFR will not calculate if th e sex is unknown or if thepatient's ag e is <18 years. CREATININE (test 1.3 mg/dL 0.6-1.5 N code = CREAT) BUN/CREATININE RATIO 17.7 12.0-20.0 N (test code = BUN/CREA) CALCIUM (test code = 8.2 mg/dL 8.5-10.1 L CA) LIPID PROFILE (CORONARY RISK)[id number] 14:10:00 Test Item Value Reference Range Interpretation Comments TRIGLYCERIDES (test 174 mg/dL 0-149 H Accordin g to the National code = TRIG) Institutes of H ealth ([facility]) and theNational Cholesterol Edu cation Program (NCEP), serumtriglyceri de levels between 150-199 mg/dL are consideredBorde rline High. CHOLESTEROL (test 292 mg/dL 0-200 H code = CHOL) CHOLESTEROL/HDL 5 1-6 N RATIO (test code = CHOLHDL) HDL CHOLESTEROL 64 mg/dL 40-60 H According to the National (test code = HDL) Institutes of Health (NIH) and theNational Cholesterol Edu cation Program (NCEP), an HDLcholesterol >or= 60mg/dL counts as a "negative" risk factor;its presence remove s one risk factor from the total count. LIPOPROTEIN LDL 182 mg/dL 0-100 H (test code = LDLC) [id number] 14:10:00 Test Item Value Reference Range Interpretation Comments MAGNESIUM (test code = MAG) 1.7 mg/dL 1.8-2.4 L TROP-I HIGH [id number] 14:10:00 Test Item Value Reference Range Interpretation Comments TROP-I HIGH 1804 pg/mL 0-53 HH Critical Value SENSITIVITY (test code repor sarah beth toFirst = TROPIHS) Name:LOULOU Last Name:ALYCE EDWARDSS READ BACK AND VERIFIEDby [id number], on 03/11/22, @ 1404.CAUTION: U nits of the current test methodology (pg /mL) differ from the prior test methodolog y (ng/mL) by a fa ctor of 1000. [id number] 13:02:00 Test Item Value Reference Range Interpretation Comments GLUBED (test 449 mg/dL 70-105 HH CRITICAL RESULT - TESTING code = GLUBED) PERFORMED BY PRIMARY CAREGIVERIntrav enous administration of N-acetylcystein e which resultsin blood concentrations >5 mg/dL will cause overestim ationof blood glucose results . Do not use during intraven ousinfusion of N'acetylcystein e. COVID 19 INHOUSE [id number] 11:51:00 Test Item Value Reference Range Interpretation Comments COVID 19 INHOUSE NEGATIVE Negative Negative re sults do not AG (test code = preclude 201 9-nCoV infection [id number]) andshould not b e used as the sole basis for treatment or otherpatient ma nagement decisions. Nega tive results must becombined with clinical observ ations, patient history , andepidemiologi abhinav information. - CT HEAD/BRAIN W/O [id number] 11:29:00 [facility] : 1950 Sex: FPatient Name: LIZZIE HINKLE Unit No: [id number] EXAMS: CPT CODE: [id number] CT HEAD/BRAIN W/O CONT [id number] Location: A 1 EXAM: CT HEAD WITHOUT CONTRAST DATE:03/11/2022 9:42 AM HISTORY: ALTERED MENTAL STATUS, HIGH BLOOD SUGAR TECHNIQUE: Axial CT images from the skull base to the vertex without intravenous contrast. Coronal and sagittal reformatted images were created from the data set. One or more of the following dose reduction techniques were used: Automated exposure control, adjustment of the mA and/or kV according to patient size, and/or iterative reconstruction. COMPARISON: None FINDINGS: No acute parenchymal abnormality. Volume loss. No acute hemorrhage, hydrocephalus or midline shift.No bony lesions. Paranasal sinuses are clear. Left intraocular silicone oil. Right phthisis bulbi. Calcification of the carotid siphons. IMPRESSION: No acute intracranial abnormality at 1129 Reported and signed by: Karla Lopez CC: Aj Alonso DO Technologist: Anastasia Zuniga CTDI: 51.54 DLP: 1230.2 Trscr Dt/Tm: 03/11/2022 (1129) by:Tushar Electronic Signature Date/Time: 03/11/2022 (112)Orig Print D/T: S: 03/11/2022 (1132) Name: LIZZIE HINKLE [facility] [place] Phys: [place] [address] : 1950 Age: 71 [place]: [place] [id number] Loc: [place].ERS Exam Date: 03/11/2022 Status: REG ER PH: FAX: PAGE 1 Signed ReportUA RFLX MICR CULT IF [id number] 11:12:00 Test Item Value Reference Range Interpretation Comments UA COLOR (test code = COLU) STRAW YELLOW UA APPEARANCE (test code = CLEAR CLEAR APPU) UA GLUCOSE DIPSTICK (test code 3+ NEGATIVE A = DGLUU) UA BILIRUBIN DIPSTICK (test NEGATIVE NEGATIVE code = BILU) UA KETONE DIPSTICK (test code 2+ NEGATIVE A = KETU) UA SPECIFIC GRAVITY (test code 1.020 1.005-1.025 N = SGU) UA BLOOD DIPSTICK (test code = 1+ NEGATIVE A EVELIN) UA PH DIPSTICK (test code = 5.0 5.0-8.0 KALEY) UA PROTEIN DIPSTICK (test code NEGATIVE NEGATIVE = PROU) UA UROBILINOGEN DIPSTICK (test NEGATIVE EU/dL 0.1-0.2 code = URO) UA NITRITE DIPSTICK (test code NEGATIVE NEGATIVE = EDMUND) UA LEUKOCYTE ESTERASE DIPSTICK NEGATIVE NEGATIVE (test code = LEUU) UA MICROSCOPIC NEEDED? (test YES NO A code = UAMICRO) UA WBC (test code = WBCU) 0-2 /hpf 0-3 UA RBC (test code = RBCU) 0-2 /hpf 0-3 UA BACTERIA (test code = BACU) NONE SEEN /HPF NEGATIVE UA SQUAMOUS CELLS (test code = RARE /HPF FEW SQU) Indication for culture: RiskForSepsis-no oth srcSpecimen Description: CLEAN CATCHB-TYPE NATRIURETIC [id number] 11:02:00 Test Item Value Reference Range Interpretation Comments B-TYPE NATRIURETIC PEPTIDE (test 348 pg/mL 0-100 H code = BNP) - XR CHEST 1 [id number] 10:40:00 [facility] : 1950 Sex: FPatient Name: LIZZIE HINKLE Unit No: [id number] EXAMS: CPT CODE: [id number] XR CHEST 1 V [id number] Location: A 1 EXAM: - XR CHEST 1 V DATE: 03/11/2022 9:42 AM HISTORY: ALTERED MENTAL STATUS, HIGH BLOOD SUGAR COMPARISON: Chest x-ray 02/20/2022 FINDINGS: No airspace consolidation or pleural effusions. No pneumothorax. Calcified granulomas in the left lung apex. The cardiovascular silhouette is wi thin normal limits. IMPRESSION: No acute cardiopulmonary abnormality. at 1040 Reported and signed by: Karla Lopez CC: Aj Alonso DO Technologist: Felix Chaudhari Time: DAP (Gy m2): Air Kerma (mGy): Trscr Dt/Tm: 03/11/2022 (1040) by:rosana CHO Electronic Signature Date/Time: 03/11/2022 (1040)Orig Print D/T: S: 03/11/2022 (1043) Name: LIZZIE HINKLE [facility] Phys: [place] [address] : 1950 Age: 71 Sex: [place] [id number] Loc: [place].ERS Exam Date: 03/11/2022 Status: REG ER PH: FAX: PAGE 1 Signed ReportCBC W/AUTO [id number] 10:30:00 Test Item Value Reference Range Interpretation Comments WHITE BLOOD CELL (test code = 5.4 10 3/uL 4.5-11.0 N WBC) RED BLOOD CELL (test code = 3.11 10 6/uL 3.50-5.50 L RBC) HEMOGLOBIN (test code = HGB) 9.5 g/dL 12.0-16.0 L HEMATOCRIT (test code = HCT) 28.9 % 37.0-55.0 L MEAN CELL VOLUME (test code = 93 fL 81-102 N MCV) MEAN CELL HGB (test code = 30.5 pg 26.0-34.0 N MCH) MEAN CELL HGB CONCENTRATION 32.9 g/dL 31.0-37.0 N (test code = MCHC) RED CELL DISTRIBUTION WIDTH 14.5 % 11.6-14.4 H (test code = RDW) PLATELET COUNT (test code = 251 10 3/uL 150-400 N PLT) MEAN PLATELET VOLUME (test 10.7 fL 9.0-12.6 N code = MPV) NEUTROPHIL % (test code = NT%) 72.6 % 33.0-76.0 N IMMATURE GRANULOCYTE % (test 0.6 % 0.0-1.0 N code = IG%) LYMPHOCYTE % (test code = LY%) 17.6 % 14.0-56.4 N MONOCYTE % (test code = MO%) 8.4 % 0.0-12.9 N EOSINOPHIL % (test code = EO%) 0.2 % 0.0-7.0 N BASOPHIL % (test code = BA%) 0.6 % 0-2.0 N NUCLEATED RBC % (test code = 0.0 % 0-0.2 N NRBC%) NEUTROPHIL # (test code = NT#) 3.89 10 3/uL 1.5-7.0 N IMMATURE GRANULOCYTE # (test 0.030 x10 3/uL 0.000-0.100 N code = IG#) LYMPHOCYTE # (test code = LY#) 0.94 10 3/uL 1.50-4.00 L MONOCYTE # (test code = MO#) 0.45 10 3/uL 0.20-0.80 N EOSINOPHIL # (test code = EO#) 0.01 10 3/uL 0.0-0.5 N BASOPHIL # (test code = BA#) 0.03 10 3/uL 0.0-0.1 N NUCLEATED RBC # (test code = 0.000 10 3/uL 0.000-0.012 N NRBC#) [id number] 09:53:00 Test Item Value Reference Range Interpretation Comments GLUBED (test 448 mg/dL 70-105 CRITICAL RESULT - TESTING code = GLUBED) PERFORMED BY PRIMARY CAREGIVERIntrav enous administration of N-acetylcystein e which resultsin blood concentrations >5 mg/dL will cause overestim ationof blood glucose results . Do not use during intraven ousinfusion of N'acetylcystein e. [id number] 18:01:00 Test Item Value Reference Range Interpretation Comments GLUBED (test 474 mg/dL 70-105 CRITICAL RESULT - TESTING code = GLUBED) PERFORMED BY PRIMARY CAREGIVERIntrav enous administration of N-acetylcystein e which resultsin blood concentrations >5 mg/dL will cause overestim ationof blood glucose results . Do not use during intraven ousinfusion of N'acetylcystein e. BASIC METABOLIC [id number] 12:32:00 Test Item Value Reference Range Interpretation Comments SODIUM (test code = 132 mmol/L 135-145 L NA) POTASSIUM (test code 4.0 mmol/L 3.5-5.1 N = K) CHLORIDE (test code = 99 mmol/L 98-107 N CL) CARBON DIOXIDE (test 25 mmol/L 21-32 N code = CO2) ANION GAP (test code 12.0 2.0-16.0 N = GAP) GLUCOSE (test code = 382 mg/dL 65-99 H GLU) BLOOD UREA NITROGEN 15 mg/dL 4-23 N (test code = BUN) GLOMERULAR FILTRATION 57 ml/min >60 L The es timated RATE (test code = glomerular filtration GFR) rate is compute d usingpatient ra ce, age (>18), sex, and serum creatinine. If anyof the needed data elements are mi ssing the Laboratory cannot compute an raysa mation of the glomerul ar filtration rate . CREATININE (test code 1.2 mg/dL 0.6-1.5 N = CREAT) BUN/CREATININE RATIO 12.5 12.0-20.0 N (test code = BUN/CREA) CALCIUM (test code = 8.3 mg/dL 8.5-10.1 L CA) FE W/TOTAL IRON BINDING [id number] 12:32:00 Test Item Value Reference Range Interpretation Comments IRON (test code = IRON) 66 ug/dL 50-175 N TOTAL IRON BINDING CAPACITY (test 214 ug/dL 260-445 L code = TIBC) IRON SATURATION (test code = FESAT) 31 % 11-46 N [id number] 12:22:00 Test Item Value Reference Range Interpretation Comments GLUBED (test 298 mg/dL 70-105 H Intravenous adm inistration code = GLUBED) of N-acetylcy steine which resultsin blood concentrations >5 mg/dL will cause overestim ationof blood glucose results . Do not use during intraven ousinfusion of N'acetylcyst eine. CBC W/AUTO [id number] 12:01:00 Test Item Value Reference Range Interpretation Comments WHITE BLOOD CELL (test code = 4.3 10 3/uL 4.5-11.0 L WBC) RED BLOOD CELL (test code = 2.89 10 6/uL 3.50-5.50 L RBC) HEMOGLOBIN (test code = HGB) 8.4 g/dL 12.0-16.0 L HEMATOCRIT (test code = HCT) 26.4 % 37.0-55.0 L MEAN CELL VOLUME (test code = 91 fL 81-102 N MCV) MEAN CELL HGB (test code = 29.1 pg 26.0-34.0 N MCH) MEAN CELL HGB CONCENTRATION 31.8 g/dL 31.0-37.0 N (test code = MCHC) RED CELL DISTRIBUTION WIDTH 13.6 % 11.6-14.4 N (test code = RDW) PLATELET COUNT (test code = 368 10 3/uL 150-400 N PLT) MEAN PLATELET VOLUME (test 10.7 fL 9.0-12.6 N code = MPV) NEUTROPHIL % (test code = NT%) 62.5 % 33.0-76.0 N IMMATURE GRANULOCYTE % (test 1.6 % 0.0-1.0 H code = IG%) LYMPHOCYTE % (test code = LY%) 24.5 % 14.0-56.4 N MONOCYTE % (test code = MO%) 7.9 % 0.0-12.9 N EOSINOPHIL % (test code = EO%) 2.6 % 0.0-7.0 N BASOPHIL % (test code = BA%) 0.9 % 0-2.0 N NUCLEATED RBC % (test code = 0.0 % 0-0.2 N NRBC%) NEUTROPHIL # (test code = NT#) 2.68 10 3/uL 1.5-7.0 N IMMATURE GRANULOCYTE # (test 0.070 x10 3/uL 0.000-0.100 N code = IG#) LYMPHOCYTE # (test code = LY#) 1.05 10 3/uL 1.50-4.00 L MONOCYTE # (test code = MO#) 0.34 10 3/uL 0.20-0.80 N EOSINOPHIL # (test code = EO#) 0.11 10 3/uL 0.0-0.5 N BASOPHIL # (test code = BA#) 0.04 10 3/uL 0.0-0.1 N NUCLEATED RBC # (test code = 0.000 10 3/uL 0.000-0.012 N NRBC#) [id number] 08:49:00 Test Item Value Reference Range Interpretation Comments GLUBED (test 404 mg/dL 70-105 HH CRITICAL RESULT - TESTING code = GLUBED) PERFORMED BY PRIMARY CAREGIVERIntrav enous administration of N-acetylcystein e which resultsin blood concentrations >5 mg/dL will cause overestim ationof blood glucose results . Do not use during intraven ousinfusion of N'acetylcystein e. [id number] 21:01:00 Test Item Value Reference Range Interpretation Comments GLUBED (test 161 mg/dL 70-105 H Intravenous adm inistration code = GLUBED) of N-acetylcy steine which resultsin blood concentrations >5 mg/dL will cause overestim ationof blood glucose results . Do not use during intraven ousinfusion of N'acetylcyst eine. [id number] 16:22:00 Test Item Value Reference Range Interpretation Comments GLUBED (test 273 mg/dL 70-105 H Intravenous adm inistration code = GLUBED) of N-acetylcy steine which resultsin blood concentrations >5 mg/dL will cause overestim ationof blood glucose results . Do not use during intraven ousinfusion of N'acetylcyst eine. [id number] 11:52:00 Test Item Value Reference Range Interpretation Comments GLUBED (test 116 mg/dL 70-105 H Intravenous adm inistration code = GLUBED) of N-acetylcy steine which resultsin blood concentrations >5 mg/dL will cause overestim ationof blood glucose results . Do not use during intraven ousinfusion of N'acetylcyst eine. BASIC METABOLIC [id number] 08:35:00 Test Item Value Reference Range Interpretation Comments SODIUM (test code 140 mmol/L 135-145 N = NA) POTASSIUM (test 3.3 mmol/L 3.5-5.1 L code = K) CHLORIDE (test 107 mmol/L 98-107 N code = CL) CARBON DIOXIDE 27 mmol/L 21-32 N (test code = CO2) ANION GAP (test 9.3 2.0-16.0 N code = GAP) GLUCOSE (test code 61 mg/dL 65-99 L = GLU) BLOOD UREA 10 mg/dL 4-23 N NITROGEN (test code = BUN) GLOMERULAR >=60 max >60 The estimated FILTRATION RATE estimate ml/min glomerula r (test code = GFR) filtration rate is computed usingpatient ra ce, age (>18), sex, and serum creatinin e. If anyof the neede d data elements a re missing the Laboratory olivier ot compute an estimation of t he glomerular filtration rate . CREATININE (test 0.9 mg/dL 0.6-1.5 N code = CREAT) BUN/CREATININE 11.1 12.0-20.0 L RATIO (test code = BUN/CREA) CALCIUM (test code 8.4 mg/dL 8.5-10.1 L = CA) [id number] 08:18:00 Test Item Value Reference Range Interpretation Comments GLUBED (test 57 mg/dL 70-105 L Intravenous adm inistration of code = GLUBED) N-acetylcyste ine which resultsin blood concentrations >5 mg/dL will cause overestim ationof blood glucose results . Do not use during intraven ousinfusion of N'acetylcystein e. CBC W/AUTO [id number] 08:09:00 Test Item Value Reference Range Interpretation Comments WHITE BLOOD CELL (test code = 4.5 10 3/uL 4.5-11.0 N WBC) RED BLOOD CELL (test code = 2.82 10 6/uL 3.50-5.50 L RBC) HEMOGLOBIN (test code = HGB) 8.3 g/dL 12.0-16.0 L HEMATOCRIT (test code = HCT) 25.6 % 37.0-55.0 L MEAN CELL VOLUME (test code = 91 fL 81-102 N MCV) MEAN CELL HGB (test code = 29.4 pg 26.0-34.0 N MCH) MEAN CELL HGB CONCENTRATION 32.4 g/dL 31.0-37.0 N (test code = MCHC) RED CELL DISTRIBUTION WIDTH 13.7 % 11.6-14.4 N (test code = RDW) PLATELET COUNT (test code = 339 10 3/uL 150-400 N PLT) MEAN PLATELET VOLUME (test 10.2 fL 9.0-12.6 N code = MPV) NEUTROPHIL % (test code = NT%) 42.5 % 33.0-76.0 N IMMATURE GRANULOCYTE % (test 1.8 % 0.0-1.0 H code = IG%) LYMPHOCYTE % (test code = LY%) 38.0 % 14.0-56.4 N MONOCYTE % (test code = MO%) 13.0 % 0.0-12.9 H EOSINOPHIL % (test code = EO%) 3.6 % 0.0-7.0 N BASOPHIL % (test code = BA%) 1.1 % 0-2.0 N NUCLEATED RBC % (test code = 0.0 % 0-0.2 N NRBC%) NEUTROPHIL # (test code = NT#) 1.90 10 3/uL 1.5-7.0 N IMMATURE GRANULOCYTE # (test 0.080 x10 3/uL 0.000-0.100 N code = IG#) LYMPHOCYTE # (test code = LY#) 1.70 10 3/uL 1.50-4.00 N MONOCYTE # (test code = MO#) 0.58 10 3/uL 0.20-0.80 N EOSINOPHIL # (test code = EO#) 0.16 10 3/uL 0.0-0.5 N BASOPHIL # (test code = BA#) 0.05 10 3/uL 0.0-0.1 N NUCLEATED RBC # (test code = 0.000 10 3/uL 0.000-0.012 N NRBC#) [id number] 21:16:00 Test Item Value Reference Range Interpretation Comments GLUBED (test 193 mg/dL 70-105 H Intravenous adm inistration code = GLUBED) of N-acetylcy steine which resultsin blood concentrations >5 mg/dL will cause overestim ationof blood glucose results . Do not use during intraven ousinfusion of N'acetylcyst eine. COVID 19 INHOUSE [id number] 16:03:00 Test Item Value Reference Range Interpretation Comments COVID 19 INHOUSE NEGATIVE Negative Negative re sults do not AG (test code = preclude 201 9-nCoV infection [id number]) andshould not b e used as the sole basis for treatment or otherpatient ma nagement decisions. Nega tive results must becombined with clinical observ ations, patient history , andepidemiologi abhinav information. LIPID PROFILE (CORONARY RISK)2022-02-20 15:26:00 Test Item Value Reference Range Interpretation Comments TRIGLYCERIDES (test 155 mg/dL 0-149 H Accordi ng to the National code = TRIG) Institutes of ealth ([facility]) and theNational Cholesterol Edu cation Program (NCEP), serumtriglyceri de levels between 150-199 mg/dL are consideredBorde rline High. CHOLESTEROL (test 243 mg/dL 0-200 H code = CHOL) CHOLESTEROL/HDL 4 1-6 N RATIO (test code = CHOLHDL) HDL CHOLESTEROL 58 mg/dL 40-60 N (test code = HDL) LIPOPROTEIN LDL 146 mg/dL 0-100 H (test code = LDLC) - CT ABD PELVIS [id number] 13:59:00 [facility] : 1950 Sex: FPatient Name: LIZZIE HINKLE Unit No: [id number] EXAMS: CPT CODE: [id number] CT ABD PELVIS W/CONT 19851 CT ABDOMEN AND PELVIS ( with intravenous contrast ) Location Code: B2 CLINICAL INDICATIONS: Lower abdominal pain. TECHNIQUE: Volumetric acquisition of abdomen from the level of the domes of the diaphragm through the symphysis pubis using 5 mm collimation after the administration of intravenous and oral contrast. Axial and coronal images were interpreted. Unless otherwise specified, incidental findings do not require dedicated imaging follow-up. Dose lowering technique with automatic exposure control utilized. COMPARISON: None. FINDINGS: Visualized lung bases demonstrate no consolidationsor effusions. Liver demonstrates moderate decreased attenuation. The gallbladder has a mildly thickened wall. Spleen, pancreas, adrenals and both kidneys are unremarkable. There is no evidence of intrahepatic biliary duct dilatation. Punctate bilateral renal calculi, without hydronephrosis seen. 9 mmright lower pole renal cyst for which no follow-up needed. Mild distal esophageal and gastric wall thickening. Visualized loops of small bowel are thickened. Normal appendix. Moderate transmural thickening of the colon noted diffusely. Aorta tapers normally without aneurysmal dilatation. Aortoiliac atherosclerosis. CT Pelvis: The urinary bladder has a minimally thickened wall. Surgically absent uterus. Visualized osseous structures demonstrate mild arthritic change IMPRESSION: 1. Transmural thickening of the colon suspicious for colitis. 2. Distal esophageal and gastric wall thickening should be correlated for esophagitis and gastritis. 3. Hepatic steatosis [facility] [id number] - Daniel Díaz [place] [address] : 1950 Age: 71 Sex: F [id number] Loc: [facility] Exam Date: 02/20/2022 Status: REG ER PH: FAX: PAGE 1 Signed Report (CONTINUED) Patient Name: LIZZIE HINKLE Unit No: [id number] EXAMS: CPT CODE: [id number] CT ABD PELVIS W/CONT 07285 (Continued) at 1359 Reported and signed by: Som Villegas MD CC: Daniel Díaz MD Technologist: Anastasia Zuniga CTDI: 2.69 DLP: 132.25 Trscr Dt/Tm: 02/20/2022 (6489) by:[email or web address] Electronic Signature Date/Time: 02/20/2022 (1359)Orig Print D/T: S: 02/20/2022 (9708) Name: LIZZIE HINKLE [facility] [place] Phys: [place] [address] : 1950 Age: 71 [place]: [place] [id number] Loc: [place].ERS Exam Date: 02/20/2022 Status: REG ER PH: FAX: PAGE 2 Signed ReportLACTIC [id number] 13:20:00 Test Item Value Reference Range Interpretation Comments LACTIC ACID (test code = LACT) 1.9 mmol/L 0.4-2.0 N BASIC METABOLIC [id number] 12:12:00 Test Item Value Reference Range Interpretation Comments SODIUM (test code = 135 mmol/L 135-145 N NA) POTASSIUM (test code 3.6 mmol/L 3.5-5.1 N = K) CHLORIDE (test code = 103 mmol/L 98-107 N CL) CARBON DIOXIDE (test 25 mmol/L 21-32 N code = CO2) ANION GAP (test code 10.6 2.0-16.0 N = GAP) GLUCOSE (test code = 206 mg/dL 65-99 H GLU) BLOOD UREA NITROGEN 12 mg/dL 4-23 N (test code = BUN) GLOMERULAR FILTRATION 52 ml/min >60 L The es timated RATE (test code = glomerular filtration GFR) rate is compute d usingpatient ra ce, age (>18), sex, and serum creatinine. If anyof the needed data elements are mi ssing the Laboratory cannot compute an raysa mation of the glomerul ar filtration rate . CREATININE (test code 1.3 mg/dL 0.6-1.5 N = CREAT) BUN/CREATININE RATIO 9.2 12.0-20.0 L (test code = BUN/CREA) CALCIUM (test code = 8.6 mg/dL 8.5-10.1 N CA) LIVER FUNCTION [id number] 12:12:00 Test Item Value Reference Range Interpretation Comments TOTAL PROTEIN 7.7 g/dL 6.4-8.2 N (test code = PROT) ALBUMIN (test code 2.6 g/dL 3.4-5.0 L = ALB) GLOBULIN (test 5.1 g/dL 2.3-3.5 H code = GLOB) BILIRUBIN TOTAL 0.3 mg/dL 0.2-1.2 N Use of this assay is not (test code = BILT) recommend ed for patients undergoingtreat ment with Eltrombopag due to the potential for falselyelevated results. BILIRUBIN DIRECT < 0.1 mg/dL 0.0-0.3 N (test code = BILD) BILIRUBIN INDIRECT 0.2 mg/dL 0.0-0.8 N (test code = BILIND) SGOT/AST (test 21 U/L 15-37 N code = AST) SGPT/ALT (test 18 U/L 6-50 N code = ALT) ALKALINE 98 U/L 45-117 N PHOSPHATASE (test code = ALKP) [id number] 12:12:00 Test Item Value Reference Range Interpretation Comments LIPASE (test code = LIP) 296 U/L 73-393 N TROP-I HIGH [id number] 12:12:00 Test Item Value Reference Range Interpretation Comments TROP-I HIGH SENSITIVITY 13 pg/mL 0-53 N CAUT ION: Units of the (test code = TROPIHS) curren t test methodology (pg /mL) differ from the prior test methodolog y (ng/mL) by a fa ctor of 1000. CBC W/AUTO [id number] 11:56:00 Test Item Value Reference Range Interpretation Comments WHITE BLOOD CELL (test code = 5.1 10 3/uL 4.5-11.0 N WBC) RED BLOOD CELL (test code = 3.09 10 6/uL 3.50-5.50 L RBC) HEMOGLOBIN (test code = HGB) 9.2 g/dL 12.0-16.0 L HEMATOCRIT (test code = HCT) 28.4 % 37.0-55.0 L MEAN CELL VOLUME (test code = 92 fL 81-102 N MCV) MEAN CELL HGB (test code = 29.8 pg 26.0-34.0 N MCH) MEAN CELL HGB CONCENTRATION 32.4 g/dL 31.0-37.0 N (test code = MCHC) RED CELL DISTRIBUTION WIDTH 13.8 % 11.6-14.4 N (test code = RDW) PLATELET COUNT (test code = 376 10 3/uL 150-400 N PLT) MEAN PLATELET VOLUME (test 10.2 fL 9.0-12.6 N code = MPV) NEUTROPHIL % (test code = NT%) 53.2 % 33.0-76.0 N IMMATURE GRANULOCYTE % (test 2.2 % 0.0-1.0 H code = IG%) LYMPHOCYTE % (test code = LY%) 29.7 % 14.0-56.4 N MONOCYTE % (test code = MO%) 11.5 % 0.0-12.9 N EOSINOPHIL % (test code = EO%) 2.2 % 0.0-7.0 N BASOPHIL % (test code = BA%) 1.2 % 0-2.0 N NUCLEATED RBC % (test code = 0.0 % 0-0.2 N NRBC%) NEUTROPHIL # (test code = NT#) 2.69 10 3/uL 1.5-7.0 N IMMATURE GRANULOCYTE # (test 0.110 x10 3/uL 0.000-0.100 H code = IG#) LYMPHOCYTE # (test code = LY#) 1.50 10 3/uL 1.50-4.00 N MONOCYTE # (test code = MO#) 0.58 10 3/uL 0.20-0.80 N EOSINOPHIL # (test code = EO#) 0.11 10 3/uL 0.0-0.5 N BASOPHIL # (test code = BA#) 0.06 10 3/uL 0.0-0.1 N NUCLEATED RBC # (test code = 0.000 10 3/uL 0.000-0.012 N NRBC#) - [facility] 1 [id number] 11:35:00 [facility] HINKLE LIZZIEFRANCES CORTEZ : 1950 Sex: FPatient Name: LIZZIE HINKLE Unit No: [id number] EXAMS: CPT CODE: [id number] XR CHEST 1 V 85661 HISTORY: Chest pain Location code: B2 FINDINGS: Frontal view of the chest demonstrates normal cardiomediastinal silhouette. The trachea is midline. The lungs are clear. There is no effusion or pneumothorax. The bones are intact. IMPRESSION: No acute pulmonary process. at 1135 Reported and signed by: Som Villegas MD CC: Daniel Daíz MD Technologist: Ly Hinton; Bal Morua; [place] Chaudhari Time: DAP (Gy m2): Air Kerma (mGy): Trscr Dt/Tm: 02/20/2022 (1135) by:[email or web address] Electronic Signature Date/Time: 02/20/2022 (113)Orig Print D/T:S: 02/20/2022 (1138) Name: LIZZIE HINKLE [facility] [place] Phys: [id number] - Daniel Díaz [place] [address] : 1950 Age: 71 [place]: [place] [id number] Loc: [place].ERS Exam Date: 02/20/2022 Status: REG ER PH: FAX: PAGE 1 Signed [id number] 19:23:00 Test Item Value Reference Range Interpretation Comments GLUBED (test 95 mg/dL 70-105 N Intravenous adm inistration of code = GLUBED) N-acetylcyste ine which resultsin blood concentrations >5 mg/dL will cause overestim ationof blood glucose results . Do not use during intraven ousinfusion of N'acetylcystein e. [id number] 16:53:00 Test Item Value Reference Range Interpretation Comments GLUBED (test 111 mg/dL 70-105 H Intravenous adm inistration code = GLUBED) of N-acetylcy steine which resultsin blood concentrations >5 mg/dL will cause overestim ationof blood glucose results . Do not use during intraven ousinfusion of N'acetylcyst eine. [id number] 11:51:00 Test Item Value Reference Range Interpretation Comments GLUBED (test 149 mg/dL 70-105 H Intravenous adm inistration code = GLUBED) of N-acetylcy steine which resultsin blood concentrations >5 mg/dL will cause overestim ationof blood glucose results . Do not use during intraven ousinfusion of N'acetylcyst eine. COMPREHENSIVE METABOLIC [id number] 11:24:00 Test Item Value Reference Range Interpretation Comments SODIUM (test code 131 mmol/L 135-145 L = NA) POTASSIUM (test 3.9 mmol/L 3.5-5.1 N code = K) CHLORIDE (test 97 mmol/L 98-107 L code = CL) CARBON DIOXIDE 32 mmol/L 21-32 N (test code = CO2) ANION GAP (test 5.9 2.0-16.0 N code = GAP) GLUCOSE (test code 251 mg/dL 65-99 H = GLU) BLOOD UREA 18 mg/dL 4-23 N NITROGEN (test code = BUN) GLOMERULAR 52 ml/min >60 L The estimated g lomerular FILTRATION RATE filtration r ate is (test code = GFR) computed u singpatient race, age (>18) , sex, and serum creatinin e. If anyof the neede d data elements are mi ssing the Laboratory olivier ot compute an estimation o f the glomerular filt ration rate. CREATININE (test 1.3 mg/dL 0.6-1.5 N code = CREAT) BUN/CREATININE 13.8 12.0-20.0 N RATIO (test code = BUN/CREA) TOTAL PROTEIN 8.0 g/dL 6.4-8.2 N (test code = PROT) ALBUMIN (test code 2.5 g/dL 3.4-5.0 L = ALB) CALCIUM (test code 8.9 mg/dL 8.5-10.1 N = CA) BILIRUBIN TOTAL 0.3 mg/dL 0.2-1.2 N Use of this assay is not (test code = BILT) recommend ed for patients undergoingtreat ment with Eltrombopag due to the potential for falselyelevated results. SGOT/AST (test 59 U/L 15-37 H code = AST) SGPT/ALT (test 44 U/L 6-50 N code = ALT) ALKALINE 129 U/L 45-117 H PHOSPHATASE (test code = ALKP) CBC W/AUTO [id number] 10:15:00 Test Item Value Reference Range Interpretation Comments WHITE BLOOD CELL (test code = 6.4 10 3/uL 4.5-11.0 N WBC) RED BLOOD CELL (test code = 3.19 10 6/uL 3.50-5.50 L RBC) HEMOGLOBIN (test code = HGB) 9.4 g/dL 12.0-16.0 L HEMATOCRIT (test code = HCT) 29.5 % 37.0-55.0 L MEAN CELL VOLUME (test code = 93 fL 81-102 N MCV) MEAN CELL HGB (test code = 29.5 pg 26.0-34.0 N MCH) MEAN CELL HGB CONCENTRATION 31.9 g/dL 31.0-37.0 N (test code = MCHC) RED CELL DISTRIBUTION WIDTH 13.0 % 11.6-14.4 N (test code = RDW) PLATELET COUNT (test code = 410 10 3/uL 150-400 H PLT) MEAN PLATELET VOLUME (test 9.8 fL 9.0-12.6 N code = MPV) NEUTROPHIL % (test code = NT%) 66.7 % 33.0-76.0 N IMMATURE GRANULOCYTE % (test 0.9 % 0.0-1.0 N code = IG%) LYMPHOCYTE % (test code = LY%) 20.7 % 14.0-56.4 N MONOCYTE % (test code = MO%) 9.1 % 0.0-12.9 N EOSINOPHIL % (test code = EO%) 2.0 % 0.0-7.0 N BASOPHIL % (test code = BA%) 0.6 % 0-2.0 N NUCLEATED RBC % (test code = 0.0 % 0-0.2 N NRBC%) NEUTROPHIL # (test code = NT#) 4.25 10 3/uL 1.5-7.0 N IMMATURE GRANULOCYTE # (test 0.060 x10 3/uL 0.000-0.100 N code = IG#) LYMPHOCYTE # (test code = LY#) 1.32 10 3/uL 1.50-4.00 L MONOCYTE # (test code = MO#) 0.58 10 3/uL 0.20-0.80 N EOSINOPHIL # (test code = EO#) 0.13 10 3/uL 0.0-0.5 N BASOPHIL # (test code = BA#) 0.04 10 3/uL 0.0-0.1 N NUCLEATED RBC # (test code = 0.000 10 3/uL 0.000-0.012 N NRBC#) [id number] 07:54:00 Test Item Value Reference Range Interpretation Comments GLUBED (test 297 mg/dL 70-105 H Intravenous adm inistration code = GLUBED) of N-acetylcy steine which resultsin blood concentrations >5 mg/dL will cause overestim ationof blood glucose results . Do not use during intraven ousinfusion of N'acetylcyst eine. [id number] 20:02:00 Test Item Value Reference Range Interpretation Comments GLUBED (test 114 mg/dL 70-105 H Intravenous adm inistration code = GLUBED) of N-acetylcy steine which resultsin blood concentrations >5 mg/dL will cause overestim ationof blood glucose results . Do not use during intraven ousinfusion of N'acetylcyst eine. [id number] 16:24:00 Test Item Value Reference Range Interpretation Comments GLUBED (test 245 mg/dL 70-105 H Intravenous adm inistration code = GLUBED) of N-acetylcy steine which resultsin blood concentrations >5 mg/dL will cause overestim ationof blood glucose results . Do not use during intraven ousinfusion of N'acetylcyst eine. [id number] 11:22:00 Test Item Value Reference Range Interpretation Comments GLUBED (test 228 mg/dL 70-105 H Intravenous adm inistration code = GLUBED) of N-acetylcy steine which resultsin blood concentrations >5 mg/dL will cause overestim ationof blood glucose results . Do not use during intraven ousinfusion of N'acetylcyst eine. [id number] 07:42:00 Test Item Value Reference Range Interpretation Comments GLUBED (test 141 mg/dL 70-105 H Intravenous adm inistration code = GLUBED) of N-acetylcy steine which resultsin blood concentrations >5 mg/dL will cause overestim ationof blood glucose results . Do not use during intraven ousinfusion of N'acetylcyst eine. BASIC METABOLIC [id number] 05:57:00 Test Item Value Reference Range Interpretation Comments SODIUM (test code 133 mmol/L 135-145 L = NA) POTASSIUM (test 4.2 mmol/L 3.5-5.1 N code = K) CHLORIDE (test 100 mmol/L 98-107 N code = CL) CARBON DIOXIDE 31 mmol/L 21-32 N (test code = CO2) ANION GAP (test 6.2 2.0-16.0 code = GAP) GLUCOSE (test code 67 mg/dL 65-99 N = GLU) BLOOD UREA 15 mg/dL 4-23 N NITROGEN (test code = BUN) GLOMERULAR >=60 max >60 The estimated FILTRATION RATE estimate ml/min glomerula r (test code = GFR) filtration rate is computed usingpatient ra ce, age (>18), sex, and serum creatinin e. If anyof the neede d data elements a re missing the Laboratory olivier ot compute an estimation of t he glomerular filtration rate . CREATININE (test 1.1 mg/dL 0.6-1.5 N code = CREAT) BUN/CREATININE 13.6 12.0-20.0 N RATIO (test code = BUN/CREA) CALCIUM (test code 8.6 mg/dL 8.5-10.1 N = CA) CBC W/AUTO [id number] 05:31:00 Test Item Value Reference Range Interpretation Comments WHITE BLOOD CELL (test code = 5.0 10 3/uL 4.5-11.0 N WBC) RED BLOOD CELL (test code = 2.92 10 6/uL 3.50-5.50 L RBC) HEMOGLOBIN (test code = HGB) 8.6 g/dL 12.0-16.0 L HEMATOCRIT (test code = HCT) 27.0 % 37.0-55.0 L MEAN CELL VOLUME (test code = 93 fL 81-102 N MCV) MEAN CELL HGB (test code = 29.5 pg 26.0-34.0 N MCH) MEAN CELL HGB CONCENTRATION 31.9 g/dL 31.0-37.0 N (test code = MCHC) RED CELL DISTRIBUTION WIDTH 13.2 % 11.6-14.4 N (test code = RDW) PLATELET COUNT (test code = 325 10 3/uL 150-400 N PLT) MEAN PLATELET VOLUME (test 9.8 fL 9.0-12.6 N code = MPV) NEUTROPHIL % (test code = NT%) 48.8 % 33.0-76.0 N IMMATURE GRANULOCYTE % (test 1.8 % 0.0-1.0 H code = IG%) LYMPHOCYTE % (test code = LY%) 28.0 % 14.0-56.4 N MONOCYTE % (test code = MO%) 17.6 % 0.0-12.9 H EOSINOPHIL % (test code = EO%) 3.0 % 0.0-7.0 N BASOPHIL % (test code = BA%) 0.8 % 0-2.0 N NUCLEATED RBC % (test code = 0.0 % 0-0.2 N NRBC%) NEUTROPHIL # (test code = NT#) 2.44 10 3/uL 1.5-7.0 N IMMATURE GRANULOCYTE # (test 0.090 x10 3/uL 0.000-0.100 N code = IG#) LYMPHOCYTE # (test code = LY#) 1.40 10 3/uL 1.50-4.00 L MONOCYTE # (test code = MO#) 0.88 10 3/uL 0.20-0.80 H EOSINOPHIL # (test code = EO#) 0.15 10 3/uL 0.0-0.5 N BASOPHIL # (test code = BA#) 0.04 10 3/uL 0.0-0.1 N NUCLEATED RBC # (test code = 0.000 10 3/uL 0.000-0.012 N NRBC#) [id number] 19:40:00 Test Item Value Reference Range Interpretation Comments GLUBED (test 99 mg/dL 70-105 N Intravenous adm inistration of code = GLUBED) N-acetylcyste ine which resultsin blood concentrations >5 mg/dL will cause overestim ationof blood glucose results . Do not use during intraven ousinfusion of N'acetylcystein e. [id number] 16:18:00 Test Item Value Reference Range Interpretation Comments GLUBED (test 294 mg/dL 70-105 H Intravenous adm inistration code = GLUBED) of N-acetylcy steine which resultsin blood concentrations >5 mg/dL will cause overestim ationof blood glucose results . Do not use during intraven ousinfusion of N'acetylcyst eine. [id number] 11:35:00 Test Item Value Reference Range Interpretation Comments GLUBED (test 84 mg/dL 70-105 N Intravenous adm inistration of code = GLUBED) N-acetylcyste ine which resultsin blood concentrations >5 mg/dL will cause overestim ationof blood glucose results . Do not use during intraven ousinfusion of N'acetylcystein e. COMPREHENSIVE METABOLIC [id number] 10:40:00 Test Item Value Reference Range Interpretation Comments SODIUM (test code 136 mmol/L 135-145 N = NA) POTASSIUM (test 3.7 mmol/L 3.5-5.1 N code = K) CHLORIDE (test 102 mmol/L 98-107 N code = CL) CARBON DIOXIDE 28 mmol/L 21-32 N (test code = CO2) ANION GAP (test 9.7 2.0-16.0 code = GAP) GLUCOSE (test 84 mg/dL 65-99 N code = GLU) BLOOD UREA 13 mg/dL 4-23 N NITROGEN (test code = BUN) GLOMERULAR >=60 max >60 The estimated g lomerular FILTRATION RATE estimate filtration r ate is (test code = GFR) ml/min computed u singpatient race, age (>18) , sex, and serum creat inine. If anyof the neede d data elements are mi ssing the Laboratory olivier ot compute an raysa mation of the glomerular filtration rate . CREATININE (test 1.1 mg/dL 0.6-1.5 N code = CREAT) BUN/CREATININE 11.8 12.0-20.0 L RATIO (test code = BUN/CREA) TOTAL PROTEIN 6.9 g/dL 6.4-8.2 N (test code = PROT) ALBUMIN (test 2.2 g/dL 3.4-5.0 L code = ALB) CALCIUM (test 8.7 mg/dL 8.5-10.1 N code = CA) BILIRUBIN TOTAL 0.3 mg/dL 0.2-1.2 N Use of this assay is not (test code = recommended for patients BILT) undergoingtreat ment with Eltrombopag due to the potential for falselyelevated results. SGOT/AST (test 43 U/L 15-37 H code = AST) SGPT/ALT (test 35 U/L 6-50 N code = ALT) ALKALINE 120 U/L 45-117 H PHOSPHATASE (test code = ALKP) RENAL FUNCTION [id number] 10:40:00 Test Item Value Reference Range Interpretation Comments CORRECTED CALCIUM (test code = 10.1 g/dL 8.1-10.2 N CACORR) PHOSPHOROUS (test code = PHOS) 3.3 mg/dL 2.5-4.9 N CALCIUM-PHOSPHORUS PRODUCT (test 28.71 0-55 N code = CAPHOS) CBC W/AUTO [id number] 10:20:00 Test Item Value Reference Range Interpretation Comments WHITE BLOOD CELL (test code = 4.9 10 3/uL 4.5-11.0 N WBC) RED BLOOD CELL (test code = 3.06 10 6/uL 3.50-5.50 L RBC) HEMOGLOBIN (test code = HGB) 8.9 g/dL 12.0-16.0 L HEMATOCRIT (test code = HCT) 27.9 % 37.0-55.0 L MEAN CELL VOLUME (test code = 91 fL 81-102 N MCV) MEAN CELL HGB (test code = 29.1 pg 26.0-34.0 N MCH) MEAN CELL HGB CONCENTRATION 31.9 g/dL 31.0-37.0 N (test code = MCHC) RED CELL DISTRIBUTION WIDTH 13.0 % 11.6-14.4 N (test code = RDW) PLATELET COUNT (test code = 308 10 3/uL 150-400 N PLT) MEAN PLATELET VOLUME (test 9.8 fL 9.0-12.6 N code = MPV) NEUTROPHIL % (test code = NT%) 48.7 % 33.0-76.0 N IMMATURE GRANULOCYTE % (test 1.8 % 0.0-1.0 H code = IG%) LYMPHOCYTE % (test code = LY%) 26.9 % 14.0-56.4 N MONOCYTE % (test code = MO%) 19.1 % 0.0-12.9 H EOSINOPHIL % (test code = EO%) 2.9 % 0.0-7.0 N BASOPHIL % (test code = BA%) 0.6 % 0-2.0 N NUCLEATED RBC % (test code = 0.0 % 0-0.2 N NRBC%) NEUTROPHIL # (test code = NT#) 2.37 10 3/uL 1.5-7.0 N IMMATURE GRANULOCYTE # (test 0.090 x10 3/uL 0.000-0.100 N code = IG#) LYMPHOCYTE # (test code = LY#) 1.31 10 3/uL 1.50-4.00 L MONOCYTE # (test code = MO#) 0.93 10 3/uL 0.20-0.80 H EOSINOPHIL # (test code = EO#) 0.14 10 3/uL 0.0-0.5 N BASOPHIL # (test code = BA#) 0.03 10 3/uL 0.0-0.1 N NUCLEATED RBC # (test code = 0.000 10 3/uL 0.000-0.012 N NRBC#) [id number] 07:28:00 Test Item Value Reference Range Interpretation Comments GLUBED (test 77 mg/dL 70-105 N Intravenous adm inistration of code = GLUBED) N-acetylcyste ine which resultsin blood concentrations >5 mg/dL will cause overestim ationof blood glucose results . Do not use during intraven ousinfusion of N'acetylcystein e. [id number] 20:35:00 Test Item Value Reference Range Interpretation Comments GLUBED (test 230 mg/dL 70-105 H Intravenous adm inistration code = GLUBED) of N-acetylcy steine which resultsin blood concentrations >5 mg/dL will cause overestim ationof blood glucose results . Do not use during intraven ousinfusion of N'acetylcyst eine. [id number] 16:35:00 Test Item Value Reference Range Interpretation Comments GLUBED (test 123 mg/dL 70-105 H Intravenous adm inistration code = GLUBED) of N-acetylcy steine which resultsin blood concentrations >5 mg/dL will cause overestim ationof blood glucose results . Do not use during intraven ousinfusion of N'acetylcyst eine. [id number] 16:01:00 Test Item Value Reference Range Interpretation Comments GLUBED (test 31 mg/dL 70-105 LL CRITICAL RESULT - TESTING code = GLUBED) PERFORMED BY PRIMARY CAREGIVERIntrav enous administration of N-acetylcystein e which resultsin blood concentrations >5 mg/dL will cause overestim ationof blood glucose results . Do not use during intraven ousinfusion of N'acetylcystein e. COMPREHENSIVE METABOLIC [id number] 13:55:00 Test Item Value Reference Range Interpretation Comments SODIUM (test code 135 mmol/L 135-145 N = NA) POTASSIUM (test 3.8 mmol/L 3.5-5.1 N code = K) CHLORIDE (test 100 mmol/L 98-107 N code = CL) CARBON DIOXIDE 32 mmol/L 21-32 N (test code = CO2) ANION GAP (test 6.8 2.0-16.0 N code = GAP) GLUCOSE (test 143 mg/dL 65-99 H code = GLU) BLOOD UREA 12 mg/dL 4-23 N NITROGEN (test code = BUN) GLOMERULAR >=60 max >60 The estimated g lomerular FILTRATION RATE estimate filtration r ate is (test code = GFR) ml/min computed u singpatient race, age (>18) , sex, and serum creat inine. If anyof the neede d data elements are mi ssing the Laboratory olivier ot compute an raysa mation of the glomerular filtration rate . CREATININE (test 1.1 mg/dL 0.6-1.5 N code = CREAT) BUN/CREATININE 10.9 12.0-20.0 L RATIO (test code = BUN/CREA) TOTAL PROTEIN 7.0 g/dL 6.4-8.2 N (test code = PROT) ALBUMIN (test 2.3 g/dL 3.4-5.0 L code = ALB) CALCIUM (test 8.7 mg/dL 8.5-10.1 N code = CA) BILIRUBIN TOTAL 0.2 mg/dL 0.2-1.2 N Use of this assay is not (test code = recommended for patients BILT) undergoingtreat ment with Eltrombopag due to the potential for falselyelevated results. SGOT/AST (test 61 U/L 15-37 H code = AST) SGPT/ALT (test 42 U/L 6-50 N code = ALT) ALKALINE 155 U/L 45-117 H PHOSPHATASE (test code = ALKP) CBC W/AUTO [id number] 13:36:00 Test Item Value Reference Range Interpretation Comments WHITE BLOOD CELL (test code = 5.4 10 3/uL 4.5-11.0 N WBC) RED BLOOD CELL (test code = 3.33 10 6/uL 3.50-5.50 L RBC) HEMOGLOBIN (test code = HGB) 9.7 g/dL 12.0-16.0 L HEMATOCRIT (test code = HCT) 30.7 % 37.0-55.0 L MEAN CELL VOLUME (test code = 92 fL 81-102 N MCV) MEAN CELL HGB (test code = 29.1 pg 26.0-34.0 N MCH) MEAN CELL HGB CONCENTRATION 31.6 g/dL 31.0-37.0 N (test code = MCHC) RED CELL DISTRIBUTION WIDTH 13.2 % 11.6-14.4 N (test code = RDW) PLATELET COUNT (test code = 252 10 3/uL 150-400 N PLT) MEAN PLATELET VOLUME (test 10.2 fL 9.0-12.6 N code = MPV) NEUTROPHIL % (test code = NT%) 56.0 % 33.0-76.0 N IMMATURE GRANULOCYTE % (test 1.3 % 0.0-1.0 H code = IG%) LYMPHOCYTE % (test code = LY%) 23.6 % 14.0-56.4 N MONOCYTE % (test code = MO%) 17.4 % 0.0-12.9 H EOSINOPHIL % (test code = EO%) 1.5 % 0.0-7.0 N BASOPHIL % (test code = BA%) 0.2 % 0-2.0 N NUCLEATED RBC % (test code = 0.0 % 0-0.2 N NRBC%) NEUTROPHIL # (test code = NT#) 3.00 10 3/uL 1.5-7.0 N IMMATURE GRANULOCYTE # (test 0.070 x10 3/uL 0.000-0.100 N code = IG#) LYMPHOCYTE # (test code = LY#) 1.26 10 3/uL 1.50-4.00 L MONOCYTE # (test code = MO#) 0.93 10 3/uL 0.20-0.80 H EOSINOPHIL # (test code = EO#) 0.08 10 3/uL 0.0-0.5 N BASOPHIL # (test code = BA#) 0.01 10 3/uL 0.0-0.1 N NUCLEATED RBC # (test code = 0.000 10 3/uL 0.000-0.012 N NRBC#) [id number] 07:56:00 Test Item Value Reference Range Interpretation Comments GLUBED (test 226 mg/dL 70-105 H Intravenous adm inistration code = GLUBED) of N-acetylcy steine which resultsin blood concentrations >5 mg/dL will cause overestim ationof blood glucose results . Do not use during intraven ousinfusion of N'acetylcyst eine. [id number] 06:02:00 Test Item Value Reference Range Interpretation Comments GLUBED (test 87 mg/dL 70-105 N Intravenous adm inistration of code = GLUBED) N-acetylcyste ine which resultsin blood concentrations >5 mg/dL will cause overestim ationof blood glucose results . Do not use during intraven ousinfusion of N'acetylcystein e. [id number] 05:30:00 Test Item Value Reference Range Interpretation Comments GLUBED (test 30 mg/dL 70-105 LL CRITICAL RESULT - TESTING code = GLUBED) PERFORMED BY PRIMARY CAREGIVERIntrav enous administration of N-acetylcystein e which resultsin blood concentrations >5 mg/dL will cause overestim ationof blood glucose results . Do not use during intraven ousinfusion of N'acetylcystein e. [id number] 20:57:00 Test Item Value Reference Range Interpretation Comments GLUBED (test 122 mg/dL 70-105 H Intravenous adm inistration code = GLUBED) of N-acetylcy steine which resultsin blood concentrations >5 mg/dL will cause overestim ationof blood glucose results . Do not use during intraven ousinfusion of N'acetylcyst eine. [id number] 16:59:00 Test Item Value Reference Range Interpretation Comments GLUBED (test 80 mg/dL 70-105 N Intravenous adm inistration of code = GLUBED) N-acetylcyste ine which resultsin blood concentrations >5 mg/dL will cause overestim ationof blood glucose results . Do not use during intraven ousinfusion of N'acetylcystein e. [id number] 11:51:00 Test Item Value Reference Range Interpretation Comments GLUBED (test 225 mg/dL 70-105 H Intravenous adm inistration code = GLUBED) of N-acetylcy steine which resultsin blood concentrations >5 mg/dL will cause overestim ationof blood glucose results . Do not use during intraven ousinfusion of N'acetylcyst eine. [id number] 08:50:00 Test Item Value Reference Range Interpretation Comments GLUBED (test 54 mg/dL 70-105 L Intravenous adm inistration of code = GLUBED) N-acetylcyste ine which resultsin blood concentrations >5 mg/dL will cause overestim ationof blood glucose results . Do not use during intraven ousinfusion of N'acetylcystein e. [id number] 21:03:00 Test Item Value Reference Range Interpretation Comments GLUBED (test 142 mg/dL 70-105 H Intravenous adm inistration code = GLUBED) of N-acetylcy steine which resultsin blood concentrations >5 mg/dL will cause overestim ationof blood glucose results . Do not use during intraven ousinfusion of N'acetylcyst eine. [id number] 16:13:00 Test Item Value Reference Range Interpretation Comments GLUBED (test 77 mg/dL 70-105 N Intravenous adm inistration of code = GLUBED) N-acetylcyste ine which resultsin blood concentrations >5 mg/dL will cause overestim ationof blood glucose results . Do not use during intraven ousinfusion of N'acetylcystein e. [id number] 11:35:00 Test Item Value Reference Range Interpretation Comments GLUBED (test 197 mg/dL 70-105 H Intravenous adm inistration code = GLUBED) of N-acetylcy steine which resultsin blood concentrations >5 mg/dL will cause overestim ationof blood glucose results . Do not use during intraven ousinfusion of N'acetylcyst eine. [id number] 07:22:00 Test Item Value Reference Range Interpretation Comments GLUBED (test 202 mg/dL 70-105 H Intravenous adm inistration code = GLUBED) of N-acetylcy steine which resultsin blood concentrations >5 mg/dL will cause overestim ationof blood glucose results . Do not use during intraven ousinfusion of N'acetylcyst eine. BASIC METABOLIC [id number] 07:15:00 Test Item Value Reference Range Interpretation Comments SODIUM (test code 136 mmol/L 135-145 N = NA) POTASSIUM (test 3.7 mmol/L 3.5-5.1 N code = K) CHLORIDE (test 101 mmol/L 98-107 N code = CL) CARBON DIOXIDE 30 mmol/L 21-32 N (test code = CO2) ANION GAP (test 8.7 2.0-16.0 N code = GAP) GLUCOSE (test code 211 mg/dL 65-99 H = GLU) BLOOD UREA 13 mg/dL 4-23 N NITROGEN (test code = BUN) GLOMERULAR >=60 max >60 The estimated FILTRATION RATE estimate ml/min glomerula r (test code = GFR) filtration rate is computed usingpatient ra ce, age (>18), sex, and serum creatinin e. If anyof the neede d data elements a re missing the Laboratory olivier ot compute an estimation of t he glomerular filtration rate . CREATININE (test 1.1 mg/dL 0.6-1.5 N code = CREAT) BUN/CREATININE 11.8 12.0-20.0 L RATIO (test code = BUN/CREA) CALCIUM (test code 8.6 mg/dL 8.5-10.1 N = CA) LIVER FUNCTION [id number] 07:15:00 Test Item Value Reference Range Interpretation Comments TOTAL PROTEIN 6.5 g/dL 6.4-8.2 N (test code = PROT) ALBUMIN (test code 2.2 g/dL 3.4-5.0 L = ALB) GLOBULIN (test 4.3 g/dL 2.3-3.5 H code = GLOB) BILIRUBIN TOTAL 0.4 mg/dL 0.2-1.2 N Use of this assay is not (test code = BILT) recommend ed for patients undergoingtreat ment with Eltrombopag due to the potential for falselyelevated results. BILIRUBIN DIRECT 0.1 mg/dL 0.0-0.3 N (test code = BILD) BILIRUBIN INDIRECT 0.3 mg/dL 0.0-0.8 N (test code = BILIND) SGOT/AST (test 61 U/L 15-37 H code = AST) SGPT/ALT (test 40 U/L 6-50 N code = ALT) ALKALINE 202 U/L 45-117 H PHOSPHATASE (test code = ALKP) [id number] 07:15:00 Test Item Value Reference Range Interpretation Comments MAGNESIUM (test code = MAG) 1.9 mg/dL 1.8-2.4 N CBC W/AUTO [id number] 06:39:00 Test Item Value Reference Range Interpretation Comments WHITE BLOOD CELL (test code = 5.8 10 3/uL 4.5-11.0 N WBC) RED BLOOD CELL (test code = 3.18 10 6/uL 3.50-5.50 L RBC) HEMOGLOBIN (test code = HGB) 9.4 g/dL 12.0-16.0 L HEMATOCRIT (test code = HCT) 29.1 % 37.0-55.0 L MEAN CELL VOLUME (test code = 92 fL 81-102 N MCV) MEAN CELL HGB (test code = 29.6 pg 26.0-34.0 N MCH) MEAN CELL HGB CONCENTRATION 32.3 g/dL 31.0-37.0 N (test code = MCHC) RED CELL DISTRIBUTION WIDTH 13.4 % 11.6-14.4 N (test code = RDW) PLATELET COUNT (test code = 189 10 3/uL 150-400 N PLT) MEAN PLATELET VOLUME (test 10.8 fL 9.0-12.6 N code = MPV) NEUTROPHIL % (test code = NT%) 68.6 % 33.0-76.0 N IMMATURE GRANULOCYTE % (test 0.5 % 0.0-1.0 N code = IG%) LYMPHOCYTE % (test code = LY%) 18.2 % 14.0-56.4 N MONOCYTE % (test code = MO%) 10.0 % 0.0-12.9 N EOSINOPHIL % (test code = EO%) 2.2 % 0.0-7.0 N BASOPHIL % (test code = BA%) 0.5 % 0-2.0 N NUCLEATED RBC % (test code = 0.0 % 0-0.2 N NRBC%) NEUTROPHIL # (test code = NT#) 3.98 10 3/uL 1.5-7.0 N IMMATURE GRANULOCYTE # (test 0.030 x10 3/uL 0.000-0.100 N code = IG#) LYMPHOCYTE # (test code = LY#) 1.06 10 3/uL 1.50-4.00 L MONOCYTE # (test code = MO#) 0.58 10 3/uL 0.20-0.80 N EOSINOPHIL # (test code = EO#) 0.13 10 3/uL 0.0-0.5 N BASOPHIL # (test code = BA#) 0.03 10 3/uL 0.0-0.1 N NUCLEATED RBC # (test code = 0.000 10 3/uL 0.000-0.012 N NRBC#) [id number] 21:03:00 Test Item Value Reference Range Interpretation Comments GLUBED (test 190 mg/dL 70-105 H Intravenous adm inistration code = GLUBED) of N-acetylcy steine which resultsin blood concentrations >5 mg/dL will cause overestim ationof blood glucose results . Do not use during intraven ousinfusion of N'acetylcyst eine. BASIC METABOLIC [id number] 19:58:00 Test Item Value Reference Range Interpretation Comments SODIUM (test code = 134 mmol/L 135-145 L NA) POTASSIUM (test code 3.5 mmol/L 3.5-5.1 N = K) CHLORIDE (test code = 102 mmol/L 98-107 N CL) CARBON DIOXIDE (test 27 mmol/L 21-32 N code = CO2) ANION GAP (test code 8.5 2.0-16.0 N = GAP) GLUCOSE (test code = 249 mg/dL 65-99 H GLU) BLOOD UREA NITROGEN 14 mg/dL 4-23 N (test code = BUN) GLOMERULAR FILTRATION 48 ml/min >60 L The es timated RATE (test code = glomerular filtration GFR) rate is compute d usingpatient ra ce, age (>18), sex, and serum creatinine. If anyof the needed data elements are mi ssing the Laboratory cannot compute an raysa mation of the glomerul ar filtration rate . CREATININE (test code 1.4 mg/dL 0.6-1.5 N = CREAT) BUN/CREATININE RATIO 10.0 12.0-20.0 L (test code = BUN/CREA) CALCIUM (test code = 8.4 mg/dL 8.5-10.1 L CA) [id number] 19:58:00 Test Item Value Reference Range Interpretation Comments PHOSPHOROUS (test code = PHOS) 2.1 mg/dL 2.5-4.9 L [id number] 15:51:00 Test Item Value Reference Range Interpretation Comments GLUBED (test 367 mg/dL 70-105 H Intravenous adm inistration code = GLUBED) of N-acetylcy steine which resultsin blood concentrations >5 mg/dL will cause overestim ationof blood glucose results . Do not use during intraven ousinfusion of N'acetylcyst eine. [id number] 08:02:00 Test Item Value Reference Range Interpretation Comments GLUBED (test 132 mg/dL 70-105 H Intravenous adm inistration code = GLUBED) of N-acetylcy steine which resultsin blood concentrations >5 mg/dL will cause overestim ationof blood glucose results . Do not use during intraven ousinfusion of N'acetylcyst eine. [id number] 04:53:00 Test Item Value Reference Range Interpretation Comments GLUBED (test 257 mg/dL 70-105 H Intravenous adm inistration code = GLUBED) of N-acetylcy steine which resultsin blood concentrations >5 mg/dL will cause overestim ationof blood glucose results . Do not use during intraven ousinfusion of N'acetylcyst eine. BASIC METABOLIC [id number] 03:25:00 Test Item Value Reference Range Interpretation Comments SODIUM (test code = 140 mmol/L 135-145 N NA) POTASSIUM (test code 3.3 mmol/L 3.5-5.1 L = K) CHLORIDE (test code = 107 mmol/L 98-107 N CL) CARBON DIOXIDE (test 27 mmol/L 21-32 N code = CO2) ANION GAP (test code 9.3 2.0-16.0 N = GAP) GLUCOSE (test code = 198 mg/dL 65-99 H GLU) BLOOD UREA NITROGEN 13 mg/dL 4-23 N (test code = BUN) GLOMERULAR FILTRATION 57 ml/min >60 L The es timated RATE (test code = glomerular filtration GFR) rate is compute d usingpatient ra ce, age (>18), sex, and serum creatinine. If anyof the needed data elements are mi ssing the Laboratory cannot compute an raysa mation of the glomerul ar filtration rate . CREATININE (test code 1.2 mg/dL 0.6-1.5 N = CREAT) BUN/CREATININE RATIO 10.8 12.0-20.0 L (test code = BUN/CREA) CALCIUM (test code = 8.2 mg/dL 8.5-10.1 L CA) [id number] 03:25:00 Test Item Value Reference Range Interpretation Comments PHOSPHOROUS (test code = PHOS) 2.0 mg/dL 2.5-4.9 L CBC W/AUTO [id number] 03:19:00 Test Item Value Reference Range Interpretation Comments WHITE BLOOD CELL (test code = 9.3 10 3/uL 4.5-11.0 N WBC) RED BLOOD CELL (test code = 3.03 10 6/uL 3.50-5.50 L RBC) HEMOGLOBIN (test code = HGB) 9.0 g/dL 12.0-16.0 L HEMATOCRIT (test code = HCT) 28.0 % 37.0-55.0 L MEAN CELL VOLUME (test code = 92 fL 81-102 N MCV) MEAN CELL HGB (test code = 29.7 pg 26.0-34.0 N MCH) MEAN CELL HGB CONCENTRATION 32.1 g/dL 31.0-37.0 N (test code = MCHC) RED CELL DISTRIBUTION WIDTH 13.7 % 11.6-14.4 N (test code = RDW) PLATELET COUNT (test code = 154 10 3/uL 150-400 N PLT) MEAN PLATELET VOLUME (test 11.0 fL 9.0-12.6 N code = MPV) NEUTROPHIL % (test code = NT%) 84.0 % 33.0-76.0 H IMMATURE GRANULOCYTE % (test 0.4 % 0.0-1.0 N code = IG%) LYMPHOCYTE % (test code = LY%) 9.9 % 14.0-56.4 L MONOCYTE % (test code = MO%) 5.2 % 0.0-12.9 N EOSINOPHIL % (test code = EO%) 0.2 % 0.0-7.0 N BASOPHIL % (test code = BA%) 0.3 % 0-2.0 N NUCLEATED RBC % (test code = 0.0 % 0-0.2 N NRBC%) NEUTROPHIL # (test code = NT#) 7.76 10 3/uL 1.5-7.0 H IMMATURE GRANULOCYTE # (test 0.040 x10 3/uL 0.000-0.100 N code = IG#) LYMPHOCYTE # (test code = LY#) 0.92 10 3/uL 1.50-4.00 L MONOCYTE # (test code = MO#) 0.48 10 3/uL 0.20-0.80 N EOSINOPHIL # (test code = EO#) 0.02 10 3/uL 0.0-0.5 N BASOPHIL # (test code = BA#) 0.03 10 3/uL 0.0-0.1 N NUCLEATED RBC # (test code = 0.000 10 3/uL 0.000-0.012 N NRBC#) DIFFERENTIAL [id number] 03:19:00 Test Item Value Reference Range Interpretation Comments RBC MORPHOLOGY REQUIRED NORMAL (test code = RBCM) PLATELET ESTIMATE (test code ADEQUATE ADEQUATE = PLTEST) PLATELET MORPHOLOGY (test NORMAL PLT MORPH NORMAL code = PLTMORPH) ANISOCYTOSIS (test code = 1+ NONE SEEN A ANISO) [id number] 00:24:00 Test Item Value Reference Range Interpretation Comments GLUBED (test 113 mg/dL 70-105 H Intravenous adm inistration code = GLUBED) of N-acetylcy steine which resultsin blood concentrations >5 mg/dL will cause overestim ationof blood glucose results . Do not use during intraven ousinfusion of N'acetylcyst eine. [id number] 20:07:00 Test Item Value Reference Range Interpretation Comments GLUBED (test 124 mg/dL 70-105 H Intravenous adm inistration code = GLUBED) of N-acetylcy steine which resultsin blood concentrations >5 mg/dL will cause overestim ationof blood glucose results . Do not use during intraven ousinfusion of N'acetylcyst eine. [id number] 16:39:00 Test Item Value Reference Range Interpretation Comments GLUBED (test 206 mg/dL 70-105 H Intravenous adm inistration code = GLUBED) of N-acetylcy steine which resultsin blood concentrations >5 mg/dL will cause overestim ationof blood glucose results . Do not use during intraven ousinfusion of N'acetylcyst eine. [id number] 12:09:00 Test Item Value Reference Range Interpretation Comments GLUBED (test 323 mg/dL 70-105 H Intravenous adm inistration code = GLUBED) of N-acetylcy steine which resultsin blood concentrations >5 mg/dL will cause overestim ationof blood glucose results . Do not use during intraven ousinfusion of N'acetylcyst eine. - XR CHEST 1 [id number] 08:04:00 [facility] CYPRESSName: DANIELE HINKLE : 1950 Sex: FPatient Name: DANIELE HINKLE Unit No: [id number] EXAMS: CPT CODE: [id number] XR CHEST 1 V 68094 CHEST, SINGLE VIEW LOCATION: A1 HISTORY: Intubated patient. A single view of the chest at 4:56 AM was compared to a prior exam from January 31, 2022. FINDINGS: The lungs are clear and heart size remains within normal limits. Lines and tubes are unchanged. No new findings are seen. IMPRESSION: No change from the prior exam. at 0804 Reported and signed by: Darius Mitchell Jr, MD CC: Self Referred; Erasmo Fay MD; [place] Technologist: Ry Montelongo Fluoro Time: DAP (Gy m2): Air Kerma (mGy): Trscr Dt/Tm: 02/01/2022 (803) by:Miracle Electronic Signature Date/Time: 02/01/2022 (803)Orig Print D/T: S: 02/01/2022 (806) Name: DANIELE HINKLE [facility] Phys: MENDOZA.Skip- [place] [address] : 1950 Age: 71 Sex: [place] [id number] Loc: NC.IC09 A Exam Date: 02/01/2022 Status: ADM IN PH: FAX: PAGE 1 Signed ReportGLUBED 2022-02-01 07:51:00 Test Item Value Reference Range Interpretation Comments GLUBED (test 288 mg/dL 70-105 H Intravenous adm inistration code = GLUBED) of N-acetylcy steine which resultsin blood concentrations >5 mg/dL will cause overestim ationof blood glucose results . Do not use during intraven ousinfusion of N'acetylcyst eine. ARTERIAL BLOOD [id number] 04:49:00 Test Item Value Reference Range Interpretation Comments ARTERIAL BLOOD GAS PH (test code 7.435 7.35-7.45 N = PHA) ARTERIAL BLOOD GAS PCO2 (test 32.0 mmHg 35.0-45.0 L code = PCO2A) ARTERIAL BLOOD GAS PO2 (test code 124.7 mmHg 80.0-100.0 H = PO2A) BICARBONATE TOTAL HCO3 (test code 21.0 mmol/L 22.0-26.0 L = HCO3) BASE EXCESS (test code = ROSEANNE) -2.5 mmol/L 0.0-2.0 L ABG O2 SATURATION (test code = 98.8 % 94.0-98.0 H SATA) ABG TYPE (test code = TYPEA) Arterial ARTERIAL FIO2 (test code = FIO2A) 30.0 % ABG VENT MODE (test code = MODEA) PRVC ABG VENT RESP RATE (test code = 14 /MIN RRA) ABG TIDAL VOLUME (test code = 350 cc TIDAL VOLUME) ABG PEEP (test code = PEEP) 5.0 cmH2O ABG SITE (test code = SITEA) Left Radial ALLENS TEST (test code = ALLENS) Yes TOTAL HGB (test code = THB) 11.4 g/dL 12.0-16.0 L TCO2 ARTERIAL (test code = TCO2A) 22.0 mL/dL 15-23 N [id number] 04:49:00 Test Item Value Reference Range Interpretation Comments PaO2/FiO2 (test code = BLS2EPO5) 415.60 >200 [id number] 04:45:00 Test Item Value Reference Range Interpretation Comments GLUBED (test 449 mg/dL 70-105 HH CRITICAL RESULT - TESTING code = GLUBED) PERFORMED BY PRIMARY CAREGIVERIntrav enous administration of N-acetylcystein e which resultsin blood concentrations >5 mg/dL will cause overestim ationof blood glucose results . Do not use during intraven ousinfusion of N'acetylcystein e. [id number] 04:39:00 Test Item Value Reference Range Interpretation Comments GLUBED (test 454 mg/dL 70-105 CRITICAL RESULT - TESTING code = GLUBED) PERFORMED BY PRIMARY CAREGIVERIntrav enous administration of N-acetylcystein e which resultsin blood concentrations >5 mg/dL will cause overestim ationof blood glucose results . Do not use during intraven ousinfusion of N'acetylcystein e. CBC W/AUTO [id number] 03:53:00 Test Item Value Reference Range Interpretation Comments WHITE BLOOD CELL (test code = 13.2 10 3/uL 4.5-11.0 H WBC) RED BLOOD CELL (test code = 3.25 10 6/uL 3.50-5.50 L RBC) HEMOGLOBIN (test code = HGB) 9.7 g/dL 12.0-16.0 L HEMATOCRIT (test code = HCT) 29.2 % 37.0-55.0 L MEAN CELL VOLUME (test code = 90 fL 81-102 MCV) MEAN CELL HGB (test code = 29.8 pg 26.0-34.0 N MCH) MEAN CELL HGB CONCENTRATION 33.2 g/dL 31.0-37.0 N (test code = MCHC) RED CELL DISTRIBUTION WIDTH 13.6 % 11.6-14.4 N (test code = RDW) PLATELET COUNT (test code = 166 10 3/uL 150-400 N PLT) MEAN PLATELET VOLUME (test 11.5 fL 9.0-12.6 N code = MPV) NEUTROPHIL % (test code = NT%) 86.0 % 33.0-76.0 H IMMATURE GRANULOCYTE % (test 1.5 % 0.0-1.0 H code = IG%) LYMPHOCYTE % (test code = LY%) 5.9 % 14.0-56.4 L MONOCYTE % (test code = MO%) 5.5 % 0.0-12.9 N EOSINOPHIL % (test code = EO%) 0.8 % 0.0-7.0 N BASOPHIL % (test code = BA%) 0.3 % 0-2.0 N NUCLEATED RBC % (test code = 0.0 % 0-0.2 N NRBC%) NEUTROPHIL # (test code = NT#) 11.35 10 3/uL 1.5-7.0 H IMMATURE GRANULOCYTE # (test 0.200 x10 3/uL 0.000-0.100 H code = IG#) LYMPHOCYTE # (test code = LY#) 0.78 10 3/uL 1.50-4.00 L MONOCYTE # (test code = MO#) 0.73 10 3/uL 0.20-0.80 N EOSINOPHIL # (test code = EO#) 0.10 10 3/uL 0.0-0.5 N BASOPHIL # (test code = BA#) 0.04 10 3/uL 0.0-0.1 N NUCLEATED RBC # (test code = 0.000 10 3/uL 0.000-0.012 N NRBC#) DIFFERENTIAL [id number] 03:53:00 Test Item Value Reference Range Interpretation Comments RBC MORPHOLOGY REQUIRED NORMAL (test code = RBCM) PLATELET ESTIMATE (test code ADEQUATE ADEQUATE = PLTEST) PLATELET MORPHOLOGY (test NORMAL PLT MORPH NORMAL code = PLTMORPH) COMPREHENSIVE METABOLIC [id number] 03:07:00 Test Item Value Reference Range Interpretation Comments SODIUM (test code 139 mmol/L 135-145 N = NA) POTASSIUM (test 3.6 mmol/L 3.5-5.1 N code = K) CHLORIDE (test 106 mmol/L 98-107 N code = CL) CARBON DIOXIDE 27 mmol/L 21-32 N (test code = CO2) ANION GAP (test 9.6 2.0-16.0 N code = GAP) GLUCOSE (test code 313 mg/dL 65-99 H = GLU) BLOOD UREA 17 mg/dL 4-23 N NITROGEN (test code = BUN) GLOMERULAR 52 ml/min >60 L The estimated g lomerular FILTRATION RATE filtration r ate is (test code = GFR) computed u singpatient race, age (>18) , sex, and serum creatinin e. If anyof the neede d data elements are mi ssing the Laboratory olivier ot compute an estimation o f the glomerular filt ration rate. CREATININE (test 1.3 mg/dL 0.6-1.5 N code = CREAT) BUN/CREATININE 13.1 12.0-20.0 N RATIO (test code = BUN/CREA) TOTAL PROTEIN 6.5 g/dL 6.4-8.2 N (test code = PROT) ALBUMIN (test code 2.3 g/dL 3.4-5.0 L = ALB) CALCIUM (test code 8.0 mg/dL 8.5-10.1 L = CA) BILIRUBIN TOTAL 1.0 mg/dL 0.2-1.2 N Use of this assay is not (test code = BILT) recommend ed for patients undergoingtreat ment with Eltrombopag due to the potential for falselyelevated results. SGOT/AST (test 174 U/L 15-37 H code = AST) SGPT/ALT (test 53 U/L 6-50 H code = ALT) ALKALINE 275 U/L 45-117 H PHOSPHATASE (test code = ALKP) [id number] 20:25:00 Test Item Value Reference Range Interpretation Comments GLUBED (test 159 mg/dL 70-105 H Intravenous adm inistration code = GLUBED) of N-acetylcy steine which resultsin blood concentrations >5 mg/dL will cause overestim ationof blood glucose results . Do not use during intraven ousinfusion of N'acetylcyst eine. [id number] 19:33:00 Test Item Value Reference Range Interpretation Comments GLUBED (test 43 mg/dL 70-105 LL CRITICAL RESULT - TESTING code = GLUBED) PERFORMED BY PRIMARY CAREGIVERIntrav enous administration of N-acetylcystein e which resultsin blood concentrations >5 mg/dL will cause overestim ationof blood glucose results . Do not use during intraven ousinfusion of N'acetylcystein e. [id number] 16:29:00 Test Item Value Reference Range Interpretation Comments GLUBED (test 125 mg/dL 70-105 H Intravenous adm inistration code = GLUBED) of N-acetylcy steine which resultsin blood concentrations >5 mg/dL will cause overestim ationof blood glucose results . Do not use during intraven ousinfusion of N'acetylcyst eine. [id number] 16:07:00 Test Item Value Reference Range Interpretation Comments GLUBED (test 38 mg/dL 70-105 LL CRITICAL RESULT - TESTING code = GLUBED) PERFORMED BY PRIMARY CAREGIVERIntrav enous administration of N-acetylcystein e which resultsin blood concentrations >5 mg/dL will cause overestim ationof blood glucose results . Do not use during intraven ousinfusion of N'acetylcystein e. BASIC METABOLIC [id number] 11:44:00 Test Item Value Reference Range Interpretation Comments SODIUM (test code = 143 mmol/L 135-145 N NA) POTASSIUM (test code 3.9 mmol/L 3.5-5.1 N = K) CHLORIDE (test code = 109 mmol/L 98-107 H CL) CARBON DIOXIDE (test 29 mmol/L 21-32 N code = CO2) ANION GAP (test code 8.9 2.0-16.0 N = GAP) GLUCOSE (test code = 71 mg/dL 65-99 N GLU) BLOOD UREA NITROGEN 17 mg/dL 4-23 N (test code = BUN) GLOMERULAR FILTRATION 41 ml/min >60 L The es timated RATE (test code = glomerular filtration GFR) rate is compute d usingpatient ra ce, age (>18), sex, and serum creatinine. If anyof the needed data elements are mi ssing the Laboratory cannot compute an raysa mation of the glomerul ar filtration rate . CREATININE (test code 1.6 mg/dL 0.6-1.5 H = CREAT) BUN/CREATININE RATIO 10.6 12.0-20.0 L (test code = BUN/CREA) CALCIUM (test code = 8.5 mg/dL 8.5-10.1 N CA) [id number] 11:44:00 Test Item Value Reference Range Interpretation Comments PHOSPHOROUS (test code = PHOS) 2.9 mg/dL 2.5-4.9 N [id number] 11:44:00 Test Item Value Reference Range Interpretation Comments MAGNESIUM (test code = MAG) 2.0 mg/dL 1.8-2.4 N [id number] 11:37:00 Test Item Value Reference Range Interpretation Comments GLUBED (test 156 mg/dL 70-105 H Intravenous adm inistration code = GLUBED) of N-acetylcy steine which resultsin blood concentrations >5 mg/dL will cause overestim ationof blood glucose results . Do not use during intraven ousinfusion of N'acetylcyst eine. [id number] 10:57:00 Test Item Value Reference Range Interpretation Comments GLUBED (test 65 mg/dL 70-105 L Intravenous adm inistration of code = GLUBED) N-acetylcyste ine which resultsin blood concentrations >5 mg/dL will cause overestim ationof blood glucose results . Do not use during intraven ousinfusion of N'acetylcystein e. - XR CHEST 1 [id number] 07:58:00 [facility] : 1950 Sex: FPatient Name: DANIELE HINKLE Unit No: [id number] EXAMS: CPT CODE: [id number] XR CHEST 1 [id number] EXAM: XR Chest 1 View INDICATION: Intubated LOCATION: A1 COMPARISON: Chest radiograph dated 01/29/2022 TECHNIQUE: Frontal view of the chest was obtained. FINDINGS: Endotracheal tube has been advanced with its tip now 2.0 cm from the bryon. Esophagogastric tube is in unchanged position. Interstitial opacities are unchanged from prior. There is no pleural effusion or pneumothorax. The cardiomediastinal silhouette is unchanged. No acute osseous abnormality is identified. IMPRESSION: Advancement of endotracheal tube with tip now 2.0 cm from the bryon. Otherwise unchanged radiograph. at 0758 Reported and signed by: Gila Valiente M.D. CC: Self Referred; Erasmo Fay MD; [place] Technologist:Maninder Roque; Papa Johnson Fluoro Time: DAP (Gy m2): Air Kerma (mGy): Trscr Dt/Tm: 01/31/2022 (0758) by:[email or web address] Electronic Signature Date/Time: 01/31/2022 (075)Orig Print D/T: S: 01/31/2022 (08) Name: DANIELE HINKLE [facility] Phys: [place] [address] : 1950 Age: 71 Sex: [place] [id number] Loc: NC.IC09 A Exam Date: 01/31/2022 Status: ADM IN PH: FAX: PAGE 1 Signed [id number] 07:36:00 Test Item Value Reference Range Interpretation Comments GLUBED (test 168 mg/dL 70-105 H Intravenous adm inistration code = GLUBED) of N-acetylcy steine which resultsin blood concentrations >5 mg/dL will cause overestim ationof blood glucose results . Do not use during intraven ousinfusion of N'acetylcyst eine. CBC W/AUTO [id number] 05:40:00 Test Item Value Reference Range Interpretation Comments WHITE BLOOD CELL (test code = 12.6 10 3/uL 4.5-11.0 H WBC) RED BLOOD CELL (test code = 3.47 10 6/uL 3.50-5.50 L RBC) HEMOGLOBIN (test code = HGB) 10.3 g/dL 12.0-16.0 L HEMATOCRIT (test code = HCT) 30.1 % 37.0-55.0 L MEAN CELL VOLUME (test code = 87 fL 81-102 N MCV) MEAN CELL HGB (test code = 29.7 pg 26.0-34.0 N MCH) MEAN CELL HGB CONCENTRATION 34.2 g/dL 31.0-37.0 N (test code = MCHC) RED CELL DISTRIBUTION WIDTH 13.2 % 11.6-14.4 N (test code = RDW) PLATELET COUNT (test code = 205 10 3/uL 150-400 N PLT) MEAN PLATELET VOLUME (test 10.5 fL 9.0-12.6 N code = MPV) NEUTROPHIL % (test code = NT%) 85.1 % 33.0-76.0 H IMMATURE GRANULOCYTE % (test 0.6 % 0.0-1.0 N code = IG%) LYMPHOCYTE % (test code = LY%) 5.8 % 14.0-56.4 L MONOCYTE % (test code = MO%) 8.1 % 0.0-12.9 N EOSINOPHIL % (test code = EO%) 0.0 % 0.0-7.0 N BASOPHIL % (test code = BA%) 0.4 % 0-2.0 N NUCLEATED RBC % (test code = 0.0 % 0-0.2 N NRBC%) NEUTROPHIL # (test code = NT#) 10.75 10 3/uL 1.5-7.0 H IMMATURE GRANULOCYTE # (test 0.080 x10 3/uL 0.000-0.100 N code = IG#) LYMPHOCYTE # (test code = LY#) 0.73 10 3/uL 1.50-4.00 L MONOCYTE # (test code = MO#) 1.03 10 3/uL 0.20-0.80 H EOSINOPHIL # (test code = EO#) 0.00 10 3/uL 0.0-0.5 N BASOPHIL # (test code = BA#) 0.05 10 3/uL 0.0-0.1 N NUCLEATED RBC # (test code = 0.000 10 3/uL 0.000-0.012 N NRBC#) DIFFERENTIAL [id number] 05:40:00 Test Item Value Reference Range Interpretation Comments RBC MORPHOLOGY REQUIRED NORMAL (test code = RBCM) PLATELET ESTIMATE (test code ADEQUATE ADEQUATE = PLTEST) PLATELET MORPHOLOGY (test NORMAL PLT MORPH NORMAL code = PLTMORPH) COMPREHENSIVE METABOLIC [id number] 05:35:00 Test Item Value Reference Range Interpretation Comments SODIUM (test code 144 mmol/L 135-145 N = NA) POTASSIUM (test 3.3 mmol/L 3.5-5.1 L code = K) CHLORIDE (test 111 mmol/L 98-107 H code = CL) CARBON DIOXIDE 26 mmol/L 21-32 N (test code = CO2) ANION GAP (test 10.3 2.0-16.0 N code = GAP) GLUCOSE (test code 143 mg/dL 65-99 H = GLU) BLOOD UREA 19 mg/dL 4-23 N NITROGEN (test code = BUN) GLOMERULAR 48 ml/min >60 L The estimated g lomerular FILTRATION RATE filtration r ate is (test code = GFR) computed u singpatient race, age (>18) , sex, and serum creatinin e. If anyof the neede d data elements are mi ssing the Laboratory olivier ot compute an estimation o f the glomerular filt ration rate. CREATININE (test 1.4 mg/dL 0.6-1.5 N code = CREAT) BUN/CREATININE 13.6 12.0-20.0 N RATIO (test code = BUN/CREA) TOTAL PROTEIN 6.9 g/dL 6.4-8.2 N (test code = PROT) ALBUMIN (test code 2.5 g/dL 3.4-5.0 L = ALB) CALCIUM (test code 8.1 mg/dL 8.5-10.1 L = CA) BILIRUBIN TOTAL 0.5 mg/dL 0.2-1.2 N Use of this assay is not (test code = BILT) recommend ed for patients undergoingtreat ment with Eltrombopag due to the potential for falselyelevated results. SGOT/AST (test 170 U/L 15-37 H code = AST) SGPT/ALT (test 42 U/L 6-50 code = ALT) ALKALINE 186 U/L 45-117 H PHOSPHATASE (test code = ALKP) [id number] 05:35:00 Test Item Value Reference Range Interpretation Comments PHOSPHOROUS (test code = PHOS) 3.4 mg/dL 2.5-4.9 N [id number] 05:35:00 Test Item Value Reference Range Interpretation Comments MAGNESIUM (test code = MAG) 2.0 mg/dL 1.8-2.4 N [id number] 05:35:00 Test Item Value Reference Range Interpretation Comments VANCOMYCIN (test code = VANCO) 12.8 ug/mL 5.0-40.0 N ARTERIAL BLOOD [id number] 04:22:00 Test Item Value Reference Range Interpretation Comments ARTERIAL BLOOD GAS PH (test code 7.506 7.35-7.45 H = PHA) ARTERIAL BLOOD GAS PCO2 (test 34.1 mmHg 35.0-45.0 L code = PCO2A) ARTERIAL BLOOD GAS PO2 (test code 174.3 mmHg 80.0-100.0 H = PO2A) BICARBONATE TOTAL HCO3 (test code 26.4 mmol/L 22.0-26.0 H = HCO3) BASE EXCESS (test code = ROSEANNE) 3.5 mmol/L 0.0-2.0 H ABG O2 SATURATION (test code = 98.9 % 94.0-98.0 H SATA) ABG TYPE (test code = TYPEA) Arterial ARTERIAL FIO2 (test code = FIO2A) 40.0 % ABG VENT MODE (test code = MODEA) PRVC ABG VENT RESP RATE (test code = 20 /MIN RRA) ABG TIDAL VOLUME (test code = 380 cc TIDAL VOLUME) ABG PEEP (test code = PEEP) 5.0 cmH2O ABG SITE (test code = SITEA) A-Line ALLENS TEST (test code = ALLENS) Yes TOTAL HGB (test code = THB) 11.5 g/dL 12.0-16.0 L TCO2 ARTERIAL (test code = TCO2A) 27.4 mL/dL 15-23 H PaO2/[id number] 04:22:00 Test Item Value Reference Range Interpretation Comments PaO2/FiO2 (test code = [id number]) 435.70 >200 LACTIC [id number] 23:41:00 Test Item Value Reference Range Interpretation Comments LACTIC ACID (test 2.4 mmol/L 0.4-2.0 H Elevated L actate code = LACT) reported to the following Caregiver:Full Name/Title: JONO SRIVASTAVA RNby NCLAB.[id number], on 1 , @ 1726 [id number] 22:16:00 Test Item Value Reference Range Interpretation Comments GLUBED (test 101 mg/dL 70-105 N Intravenous adm inistration code = GLUBED) of N-acetylcy steine which resultsin blood concentrations >5 mg/dL will cause overestim ationof blood glucose results . Do not use during intraven ousinfusion of N'acetylcyst eine. [id number] 21:09:00 Test Item Value Reference Range Interpretation Comments GLUBED (test 67 mg/dL 70-105 L Intravenous adm inistration of code = GLUBED) N-acetylcyste ine which resultsin blood concentrations >5 mg/dL will cause overestim ationof blood glucose results . Do not use during intraven ousinfusion of N'acetylcystein e. [id number] 18:11:00 Test Item Value Reference Range Interpretation Comments GLUBED (test 83 mg/dL 70-105 N Intravenous adm inistration of code = GLUBED) N-acetylcyste ine which resultsin blood concentrations >5 mg/dL will cause overestim ationof blood glucose results . Do not use during intraven ousinfusion of N'acetylcystein e. BASIC METABOLIC [id number] 16:43:00 Test Item Value Reference Range Interpretation Comments SODIUM (test code = 143 mmol/L 135-145 N NA) POTASSIUM (test code 4.5 mmol/L 3.5-5.1 N = K) CHLORIDE (test code = 109 mmol/L 98-107 H CL) CARBON DIOXIDE (test 27 mmol/L 21-32 N code = CO2) ANION GAP (test code 11.5 2.0-16.0 N = GAP) GLUCOSE (test code = 142 mg/dL 65-99 H GLU) BLOOD UREA NITROGEN 25 mg/dL 4-23 H (test code = BUN) GLOMERULAR FILTRATION 38 ml/min >60 L The es timated RATE (test code = glomerular filtration GFR) rate is compute d usingpatient ra ce, age (>18), sex, and serum creatinine. If anyof the needed data elements are mi ssing the Laboratory cannot compute an raysa mation of the glomerul ar filtration rate . CREATININE (test code 1.7 mg/dL 0.6-1.5 H = CREAT) BUN/CREATININE RATIO 14.7 12.0-20.0 N (test code = BUN/CREA) CALCIUM (test code = 8.2 mg/dL 8.5-10.1 L CA) [id number] 16:43:00 Test Item Value Reference Range Interpretation Comments PHOSPHOROUS (test code = PHOS) 3.8 mg/dL 2.5-4.9 N [id number] 16:43:00 Test Item Value Reference Range Interpretation Comments MAGNESIUM (test code = MAG) 2.1 mg/dL 1.8-2.4 N [id number] 16:24:00 Test Item Value Reference Range Interpretation Comments GLUBED (test 118 mg/dL 70-105 H Intravenous adm inistration code = GLUBED) of N-acetylcy steine which resultsin blood concentrations >5 mg/dL will cause overestim ationof blood glucose results . Do not use during intraven ousinfusion of N'acetylcyst eine. [id number] 15:13:00 Test Item Value Reference Range Interpretation Comments GLUBED (test 53 mg/dL 70-105 L Intravenous adm inistration of code = GLUBED) N-acetylcyste ine which resultsin blood concentrations >5 mg/dL will cause overestim ationof blood glucose results . Do not use during intraven ousinfusion of N'acetylcystein e. [id number] 13:59:00 Test Item Value Reference Range Interpretation Comments GLUBED (test 103 mg/dL 70-105 N Intravenous adm inistration code = GLUBED) of N-acetylcy steine which resultsin blood concentrations >5 mg/dL will cause overestim ationof blood glucose results . Do not use during intraven ousinfusion of N'acetylcyst eine. [id number] 13:01:00 Test Item Value Reference Range Interpretation Comments GLUBED (test 107 mg/dL 70-105 H Intravenous adm inistration code = GLUBED) of N-acetylcy steine which resultsin blood concentrations >5 mg/dL will cause overestim ationof blood glucose results . Do not use during intraven ousinfusion of N'acetylcyst eine. [id number] 12:13:00 Test Item Value Reference Range Interpretation Comments GLUBED (test 135 mg/dL 70-105 H Intravenous adm inistration code = GLUBED) of N-acetylcy steine which resultsin blood concentrations >5 mg/dL will cause overestim ationof blood glucose results . Do not use during intraven ousinfusion of N'acetylcyst eine. [id number] 11:19:00 Test Item Value Reference Range Interpretation Comments GLUBED (test 160 mg/dL 70-105 H Intravenous adm inistration code = GLUBED) of N-acetylcy steine which resultsin blood concentrations >5 mg/dL will cause overestim ationof blood glucose results . Do not use during intraven ousinfusion of N'acetylcyst eine. UA RFLX MICR CULT IF [id number] 11:18:00 Test Item Value Reference Range Interpretation Comments UA COLOR (test code = YELLOW YELLOW COLU) UA APPEARANCE (test code CLOUDY CLEAR A = APPU) UA GLUCOSE DIPSTICK (test 1+ NEGATIVE A code = DGLUU) UA BILIRUBIN DIPSTICK 1+ NEGATIVE A (test code = BILU) UA KETONE DIPSTICK (test 2+ NEGATIVE A code = KETU) UA SPECIFIC GRAVITY (test 1.025 1.005-1.025 N code = SGU) UA BLOOD DIPSTICK (test 3+ NEGATIVE A code = EVELIN) UA PH DIPSTICK (test code 6.0 5.0-8.0 = KALEY) UA PROTEIN DIPSTICK (test 1+ NEGATIVE A code = PROU) UA UROBILINOGEN DIPSTICK 0.2 EU/dL 0.1-0.2 (test code = URO) UA NITRITE DIPSTICK (test NEGATIVE NEGATIVE code = EDMUND) UA LEUKOCYTE ESTERASE 2+ NEGATIVE A DIPSTICK (test code = LEUU) UA MICROSCOPIC NEEDED? YES NO A (test code = UAMICRO) UA WBC (test code = WBCU) TOO NUMEROUS TO CNT 0-3 A /hpf UA RBC (test code = RBCU) TOO NUMEROUS TO CNT 0-3 A /hpf UA BACTERIA (test code = FEW /HPF NEGATIVE BACU) UA SQUAMOUS CELLS (test None seen /HPF FEW code = SQU) UA HYALINE CAST (test 0-1 /lpf NONE SEEN code = HYALU) Indication for culture: RiskForSepsis-no oth srcSpecimen Description: CATHETERIZED (STRAIGHT)[id number] 10:18:00 Test Item Value Reference Range Interpretation Comments GLUBED (test 186 mg/dL 70-105 H Intravenous adm inistration code = GLUBED) of N-acetylcy steine which resultsin blood concentrations >5 mg/dL will cause overestim ationof blood glucose results . Do not use during intraven ousinfusion of N'acetylcyst eine. [id number] 09:11:00 Test Item Value Reference Range Interpretation Comments GLUBED (test 209 mg/dL 70-105 H Intravenous adm inistration code = GLUBED) of N-acetylcy steine which resultsin blood concentrations >5 mg/dL will cause overestim ationof blood glucose results . Do not use during intraven ousinfusion of N'acetylcyst eine. BASIC METABOLIC [id number] 08:56:00 Test Item Value Reference Range Interpretation Comments SODIUM (test code = 144 mmol/L 135-145 N NA) POTASSIUM (test code 3.6 mmol/L 3.5-5.1 N = K) CHLORIDE (test code = 110 mmol/L 98-107 H CL) CARBON DIOXIDE (test 24 mmol/L 21-32 N code = CO2) ANION GAP (test code 13.6 2.0-16.0 N = GAP) GLUCOSE (test code = 220 mg/dL 65-99 H GLU) BLOOD UREA NITROGEN 28 mg/dL 4-23 H (test code = BUN) GLOMERULAR FILTRATION 32 ml/min >60 L The es timated RATE (test code = glomerular filtration GFR) rate is compute d usingpatient ra ce, age (>18), sex, and serum creatinine. If anyof the needed data elements are mi ssing the Laboratory cannot compute an raysa mation of the glomerul ar filtration rate . CREATININE (test code 2.0 mg/dL 0.6-1.5 H = CREAT) BUN/CREATININE RATIO 14.0 12.0-20.0 N (test code = BUN/CREA) CALCIUM (test code = 8.1 mg/dL 8.5-10.1 L CA) [id number] 08:56:00 Test Item Value Reference Range Interpretation Comments PHOSPHOROUS (test code = PHOS) 1.0 mg/dL 2.5-4.9 L [id number] 08:56:00 Test Item Value Reference Range Interpretation Comments MAGNESIUM (test code = MAG) 1.6 mg/dL 1.8-2.4 L [id number] 07:47:00 Test Item Value Reference Range Interpretation Comments GLUBED (test 258 mg/dL 70-105 H Intravenous adm inistration code = GLUBED) of N-acetylcy steine which resultsin blood concentrations >5 mg/dL will cause overestim ationof blood glucose results . Do not use during intraven ousinfusion of N'acetylcyst eine. [id number] 06:45:00 Test Item Value Reference Range Interpretation Comments POTASSIUM (test code = K) 3.6 mmol/L 3.5-5.1 N Spec Comments: While on insulin dripComments to Phleb: Increase to Q 1hour if less than [id number] 06:06:00 Test Item Value Reference Range Interpretation Comments GLUBED (test 313 mg/dL 70-105 H Intravenous adm inistration code = GLUBED) of N-acetylcy steine which resultsin blood concentrations >5 mg/dL will cause overestim ationof blood glucose results . Do not use during intraven ousinfusion of N'acetylcyst eine. [id number] 06:00:00 Test Item Value Reference Range Interpretation Comments GLUBED (test 326 mg/dL 70-105 H Intravenous adm inistration code = GLUBED) of N-acetylcy steine which resultsin blood concentrations >5 mg/dL will cause overestim ationof blood glucose results . Do not use during intraven ousinfusion of N'acetylcyst eine. COMPREHENSIVE METABOLIC [id number] 05:17:00 Test Item Value Reference Range Interpretation Comments SODIUM (test code 143 mmol/L 135-145 N = NA) POTASSIUM (test 3.6 mmol/L 3.5-5.1 N code = K) CHLORIDE (test 108 mmol/L 98-107 H code = CL) CARBON DIOXIDE 21 mmol/L 21-32 N (test code = CO2) ANION GAP (test 17.6 2.0-16.0 H code = GAP) GLUCOSE (test code 412 mg/dL 65-99 HH Critical Value reported = GLU) toFirst Name:ME DOLAN Last Name:MARTIN RADER READ BACK AND VERIFI EDby [id number], on 1 , @ 0510. BLOOD UREA 32 mg/dL 4-23 H NITROGEN (test code = BUN) GLOMERULAR 30 ml/min >60 L The estimated g lomerular FILTRATION RATE filtration r ate is (test code = GFR) computed u singpatient race, age (>18) , sex, and serum creatinin e. If anyof the neede d data elements are mi ssing the Laboratory olivier ot compute an estimation o f the glomerular filt ration rate. CREATININE (test 2.1 mg/dL 0.6-1.5 H code = CREAT) BUN/CREATININE 15.2 12.0-20.0 N RATIO (test code = BUN/CREA) TOTAL PROTEIN 6.0 g/dL 6.4-8.2 L (test code = PROT) ALBUMIN (test code 2.6 g/dL 3.4-5.0 L = ALB) CALCIUM (test code 8.1 mg/dL 8.5-10.1 L = CA) BILIRUBIN TOTAL 0.4 mg/dL 0.2-1.2 N Use of this assay is not (test code = BILT) recommend ed for patients undergoingtreat ment with Eltrombopag due to the potential for falselyelevated results. SGOT/AST (test 111 U/L 15-37 H U/L code = AST) SGPT/ALT (test 26 U/L 6-50 N code = ALT) ALKALINE 96 U/L 45-117 N PHOSPHATASE (test code = ALKP) Spec Comments: While on insulin dripComments to Phleb: Increase to Q 1hour if less than [id number] 05:17:00 Test Item Value Reference Range Interpretation Comments PHOSPHOROUS (test code = PHOS) 1.3 mg/dL 2.5-4.9 L Spec Comments: While on insulin dripComments to Phleb: Increase to Q 1hour if less than [id number] 05:17:00 Test Item Value Reference Range Interpretation Comments MAGNESIUM (test code = MAG) 1.8 mg/dL 1.8-2.4 N Spec Comments: While on insulin dripComments to Phleb: Increase to Q 1hour if less than 3.3LACTIC [id number] 05:10:00 Test Item Value Reference Range Interpretation Comments LACTIC ACID (test 3.5 mmol/L 0.4-2.0 H Elevated L actate code = LACT) reported to the following Caregiver:Full Name/Title: GABRIEL Valente [id number], on 01/30/22, @ 051 0 OSMOLALITY [id number] 04:54:00 Test Item Value Reference Range Interpretation Comments OSMOLALITY SERUM (test code = 344 mOsm/kg 278-305 H OSMO) [id number] 04:51:00 Test Item Value Reference Range Interpretation Comments GLUBED (test 375 mg/dL 70-105 H Intravenous adm inistration code = GLUBED) of N-acetylcy steine which resultsin blood concentrations >5 mg/dL will cause overestim ationof blood glucose results . Do not use during intraven ousinfusion of N'acetylcyst eine. CBC W/AUTO [id number] 04:37:00 Test Item Value Reference Range Interpretation Comments WHITE BLOOD CELL (test code = 12.8 10 3/uL 4.5-11.0 H WBC) RED BLOOD CELL (test code = 2.92 10 6/uL 3.50-5.50 L RBC) HEMOGLOBIN (test code = HGB) 8.7 g/dL 12.0-16.0 L HEMATOCRIT (test code = HCT) 26.1 % 37.0-55.0 L MEAN CELL VOLUME (test code = 89 fL 81-102 MCV) MEAN CELL HGB (test code = 29.8 pg 26.0-34.0 N MCH) MEAN CELL HGB CONCENTRATION 33.3 g/dL 31.0-37.0 N (test code = MCHC) RED CELL DISTRIBUTION WIDTH 13.3 % 11.6-14.4 N (test code = RDW) PLATELET COUNT (test code = 237 10 3/uL 150-400 N PLT) MEAN PLATELET VOLUME (test 10.6 fL 9.0-12.6 N code = MPV) NEUTROPHIL % (test code = NT%) 75.0 % 33.0-76.0 N IMMATURE GRANULOCYTE % (test 4.6 % 0.0-1.0 H code = IG%) LYMPHOCYTE % (test code = LY%) 8.2 % 14.0-56.4 L MONOCYTE % (test code = MO%) 11.7 % 0.0-12.9 N EOSINOPHIL % (test code = EO%) 0.0 % 0.0-7.0 N BASOPHIL % (test code = BA%) 0.5 % 0-2.0 N NUCLEATED RBC % (test code = 0.0 % 0-0.2 N NRBC%) NEUTROPHIL # (test code = NT#) 9.61 10 3/uL 1.5-7.0 H IMMATURE GRANULOCYTE # (test 0.590 x10 3/uL 0.000-0.100 H code = IG#) LYMPHOCYTE # (test code = LY#) 1.05 10 3/uL 1.50-4.00 L MONOCYTE # (test code = MO#) 1.50 10 3/uL 0.20-0.80 H EOSINOPHIL # (test code = EO#) 0.00 10 3/uL 0.0-0.5 N BASOPHIL # (test code = BA#) 0.06 10 3/uL 0.0-0.1 N NUCLEATED RBC # (test code = 0.000 10 3/uL 0.000-0.012 N NRBC#) [id number] 03:57:00 Test Item Value Reference Range Interpretation Comments GLUBED (test 412 mg/dL 70-105 HH CRITICAL RESULT - TESTING code = GLUBED) PERFORMED BY PRIMARY CAREGIVERIntrav enous administration of N-acetylcystein e which resultsin blood concentrations >5 mg/dL will cause overestim ationof blood glucose results . Do not use during intraven ousinfusion of N'acetylcystein e. BASIC METABOLIC [id number] 03:20:00 Test Item Value Reference Range Interpretation Comments SODIUM (test code = 143 mmol/L 135-145 N NA) POTASSIUM (test code 3.6 mmol/L 3.5-5.1 N = K) CHLORIDE (test code = 107 mmol/L 98-107 N CL) CARBON DIOXIDE (test 19 mmol/L 21-32 L code = CO2) ANION GAP (test code 20.6 2.0-16.0 H = GAP) GLUCOSE (test code = 529 mg/dL 65-99 HH Critica l Value GLU) reported toFirs t Name:YI Petra ast Name:RESULTS RE AD BACK AND VERIFIEDby [id number], on 01/30/22, @ 031 9. BLOOD UREA NITROGEN 35 mg/dL 4-23 H (test code = BUN) GLOMERULAR FILTRATION 29 ml/min >60 L The es timated RATE (test code = glomerular filtration GFR) rate is compute d usingpatient ra ce, age (>18), sex, and serum creatinine. If anyof the needed data elements are mi ssing the Laboratory cannot compute an rayas mation of the glomerul ar filtration rate . CREATININE (test code 2.2 mg/dL 0.6-1.5 H = CREAT) BUN/CREATININE RATIO 15.9 12.0-20.0 N (test code = BUN/CREA) CALCIUM (test code = 8.2 mg/dL 8.5-10.1 L CA) ARTERIAL BLOOD [id number] 03:18:00 Test Item Value Reference Range Interpretation Comments ARTERIAL BLOOD GAS PH (test code 7.512 7.35-7.45 H = PHA) ARTERIAL BLOOD GAS PCO2 (test 25.7 mmHg 35.0-45.0 L code = PCO2A) ARTERIAL BLOOD GAS PO2 (test 216.6 mmHg 80.0-100.0 H code = PO2A) BICARBONATE TOTAL HCO3 (test 20.1 mmol/L 22.0-26.0 L code = HCO3) BASE EXCESS (test code = ROSEANNE) -1.9 mmol/L 0.0-2.0 L ABG O2 SATURATION (test code = 99.1 % 94.0-98.0 H SATA) ABG TYPE (test code = TYPEA) Arterial ARTERIAL FIO2 (test code = 40.0 % FIO2A) ABG VENT MODE (test code = Ventilator MODEA) ABG VENT RESP RATE (test code = 25 /MIN RRA) ABG TIDAL VOLUME (test code = 380 cc TIDAL VOLUME) ABG PEEP (test code = PEEP) 5.0 cmH2O ABG SITE (test code = SITEA) Right Radial ALLENS TEST (test code = ALLENS) Yes TOTAL HGB (test code = THB) 9.9 g/dL 12.0-16.0 L TCO2 ARTERIAL (test code = 20.9 mL/dL 15-23 N TCO2A) PaO2/[id number] 03:18:00 Test Item Value Reference Range Interpretation Comments PaO2/FiO2 (test code = [id number]) 541.50 >200 [id number] 02:56:00 Test Item Value Reference Range Interpretation Comments GLUBED (test 463 mg/dL 70-105 HH CRITICAL RESULT - TESTING code = GLUBED) PERFORMED BY PRIMARY CAREGIVERIntrav enous administration of N-acetylcystein e which resultsin blood concentrations >5 mg/dL will cause overestim ationof blood glucose results . Do not use during intraven ousinfusion of N'acetylcystein e. BASIC METABOLIC [id number] 02:31:00 Test Item Value Reference Range Interpretation Comments SODIUM (test code = 142 mmol/L 135-145 N NA) POTASSIUM (test code 3.5 mmol/L 3.5-5.1 N = K) CHLORIDE (test code = 106 mmol/L 98-107 N CL) CARBON DIOXIDE (test 17 mmol/L 21-32 L code = CO2) ANION GAP (test code 22.5 2.0-16.0 H = GAP) GLUCOSE (test code = 634 mg/dL 65-99 HH Critica l Value GLU) reported toFirs t Name:SHAWNEE Last Name:RESULTS RE AD BACK AND VERIFIEDby [id number], on 01/30/22, @ 023 0. BLOOD UREA NITROGEN 36 mg/dL 4-23 H (test code = BUN) GLOMERULAR FILTRATION 29 ml/min >60 L The es timated RATE (test code = glomerular filtration GFR) rate is compute d usingpatient ra ce, age (>18), sex, and serum creatinine. If anyof the needed data elements are mi ssing the Laboratory cannot compute an raysa mation of the glomerul ar filtration rate . CREATININE (test code 2.2 mg/dL 0.6-1.5 H = CREAT) BUN/CREATININE RATIO 16.4 12.0-20.0 N (test code = BUN/CREA) CALCIUM (test code = 8.5 mg/dL 8.5-10.1 N CA) Spec Comments: While on insulin dripComments to Phleb: Increase to Q 1hour if less than [id number] 02:31:00 Test Item Value Reference Range Interpretation Comments PHOSPHOROUS (test code = PHOS) 1.6 mg/dL 2.5-4.9 L Spec Comments: While on insulin dripComments to Phleb: Increase to Q 1hour if less than [id number] 02:31:00 Test Item Value Reference Range Interpretation Comments MAGNESIUM (test code = MAG) 2.0 mg/dL 1.8-2.4 N Spec Comments: While on insulin dripComments to Phleb: Increase to Q 1hour if less than [id number] 02:10:00 Test Item Value Reference Range Interpretation Comments GLUBED (test 493 mg/dL 70-105 HH CRITICAL RESULT - TESTING code = GLUBED) PERFORMED BY PRIMARY CAREGIVERIntrav enous administration of N-acetylcystein e which resultsin blood concentrations >5 mg/dL will cause overestim ationof blood glucose results . Do not use during intraven ousinfusion of N'acetylcystein e. [id number] 01:14:00 Test Item Value Reference Range Interpretation Comments GLUBED (test 572 mg/dL 70-105 HH CRITICAL RESULT - TESTING code = GLUBED) PERFORMED BY PRIMARY CAREGIVERIntrav enous administration of N-acetylcystein e which resultsin blood concentrations >5 mg/dL will cause overestim ationof blood glucose results . Do not use during intraven ousinfusion of N'acetylcystein e. - XR CHEST 1 [id number] 00:40:00 [facility] D[facility] : 1950 Sex: FPatient Name: DANIELE HINKLE Unit No: [id number] EXAMS: CPT CODE: [id number] XR CHEST 1 V [id number] LOCATION: 3 EXAM: - XR CHEST 1 V HISTORY: ETT placement TECHNIQUE: Frontal view of the chest.COMPARISON: Chest radiograph 01/29/2022 at 1827 hours FINDINGS: The endotracheal tube tip is 7 cm above the bryon. Nasogastric tube tip is excluded from view but below the left hemidiaphragm. The lungs are adequately inflated and clear. No evidence of pneumothorax or pleural effusion. Normal heart size. Mediastinal contours are within normal limits. IMPRESSION: Endotracheal tube tip is approximately 7 cm above the bryon relatively high in, but adequately positioned. No focal pulmonary findings. at 0040 Reported and signed by: Janie Duron MD CC: Self Referred; Erasmo Fay MD; Can Vinson Technologist: Maninder Roque; Papa Johnson Fluoro Time: DAP (Gy m2): Air Kerma (mGy): Trscr Dt/Tm: 01/30/2022 (39) by:[email or web address] Electronic Signature Date/Time: 01/30/2022 (39)Orig Print D/T: S: 01/30/2022 (42) [facility] [place] [place] [address] : 1950 Age: 71 Sex: [place] [address] Loc: NC.IC09 A Exam Date: 01/29/2022 Status: ADM IN PH: FAX: PAGE 1 Signed Report [id number] 00:30:00 Test Item Value Reference Range Interpretation Comments POTASSIUM (test code = K) 3.6 mmol/L 3.5-5.1 N Spec Comments: While on insulin dripComments to Phleb: Increase to Q 1hour if less than [id number] 00:02:00 Test Item Value Reference Range Interpretation Comments GLUBED (test > 600 mg/dL 70-105 HH CRITICAL RESULT - TESTING code = GLUBED) PERFORMED BY PRIMARY CAREGIVERIntrav enous administration of N-acetylcystein e which resultsin blood concentrations >5 mg/dL will cause overestim ationof blood glucose results . Do not use during intraven ousinfusion of N'acetylcyst eine. BASIC METABOLIC [id number] 23:50:00 Test Item Value Reference Range Interpretation Comments SODIUM (test code = 140 mmol/L 135-145 N NA) POTASSIUM (test code 3.9 mmol/L 3.5-5.1 N = K) CHLORIDE (test code = 103 mmol/L 98-107 N CL) CARBON DIOXIDE (test 13 mmol/L 21-32 L code = CO2) ANION GAP (test code 27.9 2.0-16.0 H = GAP) GLUCOSE (test code = 816 mg/dL 65-99 HH Critica l Value GLU) reported Luisirs andrew Name:YI Lambert ast Name:AVERY BENSONPRASANTH READ BACK AND VERIFIEDby [id number], on 01/29/22, @ 2350. BLOOD UREA NITROGEN 40 mg/dL 4-23 H (test code = BUN) GLOMERULAR FILTRATION 27 ml/min >60 L The es timated RATE (test code = glomerular filtration GFR) rate is compute d usingpatient ra ce, age (>18), sex, and serum creatinine. If anyof the needed data elements are mi ssing the Laboratory cannot compute an raysa mation of the glomerul ar filtration rate . CREATININE (test code 2.3 mg/dL 0.6-1.5 H = CREAT) BUN/CREATININE RATIO 17.4 12.0-20.0 N (test code = BUN/CREA) CALCIUM (test code = 8.5 mg/dL 8.5-10.1 N CA) LACTIC [id number] 23:49:00 Test Item Value Reference Range Interpretation Comments LACTIC ACID (test 5.4 mmol/L 0.4-2.0 H Elevated L actate code = LACT) reported to the following Caregiver:Full Name/Title: CAROL POLANCO by [id number], on , @ 6440 OSMOLALITY [id number] 23:35:00 Test Item Value Reference Range Interpretation Comments OSMOLALITY SERUM (test code = 385 mOsm/kg 278-305 H OSMO) [id number] 23:13:00 Test Item Value Reference Range Interpretation Comments GLUBED (test > 600 mg/dL 70-105 HH CRITICAL RESULT - TESTING code = GLUBED) PERFORMED BY PRIMARY CAREGIVERIntrav enous administration of N-acetylcystein e which resultsin blood concentrations >5 mg/dL will cause overestim ationof blood glucose results . Do not use during intraven ousinfusion of N'acetylcyst eine. BASIC METABOLIC [id number] 22:55:00 Test Item Value Reference Range Interpretation Comments SODIUM (test code = 139 mmol/L 135-145 N NA) POTASSIUM (test code 4.0 mmol/L 3.5-5.1 N = K) CHLORIDE (test code = 101 mmol/L 98-107 N CL) CARBON DIOXIDE (test 11 mmol/L 21-32 L code = CO2) ANION GAP (test code 31.0 2.0-16.0 H = GAP) GLUCOSE (test code = 839 mg/dL 65-99 HH Critica l Value GLU) reported toFirs t Name:YI Lambert ast Name:RESULTS RE AD BACK AND VERIFIEDby [id number], on 01/29/22, @ 225 4. BLOOD UREA NITROGEN 40 mg/dL 4-23 H (test code = BUN) GLOMERULAR FILTRATION 27 ml/min >60 L The es timated RATE (test code = glomerular filtration GFR) rate is compute d usingpatient ra ce, age (>18), sex, and serum creatinine. If anyof the needed data elements are mi ssing the Laboratory cannot compute an raysa mation of the glomerul ar filtration rate . CREATININE (test code 2.3 mg/dL 0.6-1.5 H = CREAT) BUN/CREATININE RATIO 17.4 12.0-20.0 N (test code = BUN/CREA) CALCIUM (test code = 8.6 mg/dL 8.5-10.1 N CA) Spec Comments: While on insulin dripComments to Phleb: Increase to Q 1hour if less than [id number] 22:55:00 Test Item Value Reference Range Interpretation Comments PHOSPHOROUS (test code = PHOS) 5.7 mg/dL 2.5-4.9 H Spec Comments: While on insulin dripComments to Phleb: Increase to Q 1hour if less than [id number] 22:55:00 Test Item Value Reference Range Interpretation Comments MAGNESIUM (test code = MAG) 2.2 mg/dL 1.8-2.4 N Spec Comments: While on insulin dripComments to Phleb: Increase to Q 1hour if less than 3.3BASIC METABOLIC [id number] 22:20:00 Test Item Value Reference Range Interpretation Comments SODIUM (test code = 139 mmol/L 135-145 N NA) POTASSIUM (test code 4.2 mmol/L 3.5-5.1 N = K) CHLORIDE (test code = 102 mmol/L 98-107 N CL) CARBON DIOXIDE (test 8 mmol/L 21-32 L code = CO2) ANION GAP (test code 33.2 2.0-16.0 H = GAP) GLUCOSE (test code = 924 mg/dL 65-99 HH Critica l Value GLU) reported toFirs t Name:YI Lambert ast Name:[id number] ULTS READ BACK AND VERIFIEDby [id number], on 01/29/22, @ 2220. BLOOD UREA NITROGEN 39 mg/dL 4-23 H (test code = BUN) GLOMERULAR FILTRATION 25 ml/min >60 L The es timated RATE (test code = glomerular filtration GFR) rate is compute d usingpatient ra ce, age (>18), sex, and serum creatinine. If anyof the needed data elements are mi ssing the Laboratory cannot compute an raysa mation of the glomerul ar filtration rate . CREATININE (test code 2.5 mg/dL 0.6-1.5 H = CREAT) BUN/CREATININE RATIO 15.6 12.0-20.0 N (test code = BUN/CREA) CALCIUM (test code = 8.7 mg/dL 8.5-10.1 N CA) [id number] 22:20:00 Test Item Value Reference Range Interpretation Comments PHOSPHOROUS (test code = PHOS) 7.1 mg/dL 2.5-4.9 H [id number] 22:04:00 Test Item Value Reference Range Interpretation Comments GLUBED (test > 600 mg/dL 70-105 HH CRITICAL RESULT - TESTING code = GLUBED) PERFORMED BY PRIMARY CAREGIVERIntrav enous administration of N-acetylcystein e which resultsin blood concentrations >5 mg/dL will cause overestim ationof blood glucose results . Do not use during intraven ousinfusion of N'acetylcyst eine. [id number] 21:14:00 Test Item Value Reference Range Interpretation Comments PHOSPHOROUS (test code = PHOS) 7.0 mg/dL 2.5-4.9 H CREATINE KINASE (CK)2022-01-29 21:14:00 Test Item Value Reference Range Interpretation Comments CREATINE KINASE (CK) (test code = CK) 87 U/L 26-308 N OSMOLALITY [id number] 21:14:00 Test Item Value Reference Range Interpretation Comments OSMOLALITY SERUM (test code = 376 mOsm/kg 278-305 H OSMO) HGBA1C - GLYCOSYLATED [id number] 20:58:00 Test Item Value Reference Range Interpretation Comments GLYCOSYLATED > 14.0 % 4.5-5.9 H The [place] [employer] HEMOGLOBIN (HA1C) Associatio n recommends a (test code = GLYHGB) therape uticrange of <7.0% Hemoglobi n A1c for patients with diabetesmellitu s (Type 2 diabetes). [id number] 20:54:00 Test Item Value Reference Range Interpretation Comments GLUBED (test > 600 mg/dL 70-105 HH CRITICAL RESULT - TESTING code = GLUBED) PERFORMED BY PRIMARY CAREGIVERIntrav enous administration of N-acetylcystein e which resultsin blood concentrations >5 mg/dL will cause overestim ationof blood glucose results . Do not use during intraven ousinfusion of N'acetylcyst eine. PROTHROMBIN [id number] 19:45:00 Test Item Value Reference Range Interpretation Comments PROTHROMBIN TIME 30.5 SECONDS 9.4-12.5 H PATIENT (test code = PTP) INTERNATIONAL 2.7 RATIO 0.8-1.1 H THE INR IS USE FUL ONLY NORMAL RATIO (test FOR MONIT ORING code = INR) ANTICOAGULANT THERAPY.IT MAY BE UNRELIABLE IN T HE INITIAL PHASE O F ANTICOAGULATION AND IN UNSTABLE PATIEN TS. 2.0-3.0 is the recommended INR for the following:Preve ntion of venous thrombol ism in high-risk patients;treatm ent of venous thrombos is and pulmonary embol ism aftera course o f heparin; preven tion of systemic emboli sm in avariety of con dition, including atria l fibrillation andprosthetic t issue heart valves.2. 5-3.5 is the recommended INR for the following:Prost hetic mechanical hear t values and/or recurren t systemicemboliz ation. THROMBOPLASTIN TIME [id number] 19:45:00 Test Item Value Reference Range Interpretation Comments THROMBOPLASTIN TIME PARTIAL 30.2 SECONDS 25.1-36.5 N (test code = PTT) ARTERIAL BLOOD [id number] 19:35:00 Test Item Value Reference Range Interpretation Comments ARTERIAL BLOOD GAS PH 6.857 7.35-7.45 LL CRITIC AL RESULT - (test code = PHA) TESTING PE RFORMED BY PRIMARY CAREGIVER ARTERIAL BLOOD GAS 27.0 mmHg 35.0-45.0 L PCO2 (test code = PCO2A) ARTERIAL BLOOD GAS PO2 345.9 mmHg 80.0-100.0 H (test code = PO2A) BICARBONATE TOTAL HCO3 4.7 mmol/L 22.0-26.0 L (test code = HCO3) BASE EXCESS (test code -27.8 mmol/L 0.0-2.0 L = ROSEANNE) ABG O2 SATURATION 99.7 % 94.0-98.0 H (test code = SATA) ABG TYPE (test code = Arterial Notif ied: LOULOU by TYPEA) FALLON on at 19:34:27 ARTERIAL FIO2 (test 50.0 % code = FIO2A) ABG VENT MODE (test PRVC code = MODEA) ABG VENT RESP RATE 25 /MIN (test code = RRA) ABG TIDAL VOLUME (test 380 cc code = TIDAL VOLUME) ABG PEEP (test code = 5.0 cmH2O PEEP) ABG SITE (test code = Right Radial SITEA) ALLENS TEST (test code Yes = ALLENS) TOTAL HGB (test code = 10.9 g/dL 12.0-16.0 L THB) TCO2 ARTERIAL (test 5.5 mL/dL 15-23 L code = TCO2A) CRITICAL VALUE (test N/A Notifi ed: LOULOU by code = CVCBG) FALLON on 01/29 at 19:34:27 PaO2/[id number] 19:35:00 Test Item Value Reference Range Interpretation Comments PaO2/FiO2 (test code = SUL5LGQ3) 691.80 >200 - CT ABD PELVIS W/O [id number] 19:10:00 [facility] : 1950 Sex: FPatient Name: DANIELE HINKLE Unit No: [id number] EXAMS: CPT CODE: [id number] CT ABD PELVIS W/O CONT 13820 LOCATION: H43 EXAM: - CT ABD PELVIS W/O CONT HISTORY: sepsis, lactic acidosis TECHNIQUE: Axial imaging of the abdomen and pelvis from the lung base to the pubic symphysis without administration of intravenous contrast. Sagittal and coronal reconstructions. One or more of the following do se reduction techniques were used: Automated exposure control, adjustment of mA and/or kV according to patient size, or iterative reconstruction. COMPARISON: None. FINDINGS: Lung base:The visualized lung base is clear. The heart size is normal. No pericardial or pleural effusion is present. Assessmentof abdominal viscera limited in the absence of intravenous contrast. Liver/spleen: Unremarkable. Biliary system: The gallbladder is not well visualized and may be contracted or surgically absent. No biliary duct dilatation. Pancreas: Unremarkable. Adrenal glands: Normal. Kidneys: No radiopaque calculi, hydronephrosis, or perinephric fluid. Vascular: Moderate atherosclerosis normal caliber abdominal aorta. Lymph nodes: No abdominal lymphadenopathy. Pelvic structures: The urinary bladder is decompressed by Mckee catheter. No pelvic lymphadenopathy or free fluid. The uterus and adnexa are normal for age. Gastrointestinal tract: Nasogastric tube is present with tip in the gastric fundus. Moderate formed fecal matter is present in the colon. There is fecalization of normal caliber small bowel loops, compatible with constipation. No overt bowel wall thickening, bowel dilatation, or perienteric edema change. Normal caliber appendix is identified. No focal fluid collections, ascites or evidence of pneumoperitoneum. Bones and soft tissues: The osseous structures are intact. Name: ADNIELE HINKLE [facility] Phys: [place] [address] : 1950 Age: 71 [place]: [place] [id number] Loc: TN.IC09 A Exam Date: 01/29/2022 Status: ADM IN PH: FAX: PAGE 1 Signed Report (CONTINUED) Patient Name: DANIELE HINKLE Unit No: [id number] EXAMS: CPT CODE: [id number] CT ABD PELVIS W/O CONT 13323 (Continued) IMPRESSION: No evidence of acute intra-abdominal pathology. Nasogastric tube tip is adequately positioned. Radiographic findings consistent with constipation. at 1910 Reported and signed by: Janie Duron MD CC: Self Referred; Lilli Terrell MD; Erasmo Fay MD Technologist: Brad Funez CTDI: DLP: 486.6 Trscr Dt/Tm: 01/29/2022 (1909) by:[email or web address] Electronic Signature Date/Time: 01/29/2022 (1909)Orig Print D/T: S: 01/30/2022 (2126) Name: DANIELE HINKLE [facility] Phys: [place] [address] : 1950 Age: 71 Sex: [place] [address] Loc: NC.IC09 A Exam Date: 01/29/2022 Status: ADM IN PH: FAX: PAGE 2 Signed Report- XR CHEST 1 [id number] 18:53:00 [facility] 1950 Sex: FPatient Name: DANIELE HINKLE Unit No: [id number] EXAMS: CPT CODE: [id number] XR CHEST 1 V 90961 LOCATION: H43 EXAM: - XR CHEST 1 V HISTORY: POST INTUBATION TECHNIQUE: Frontal view of the chest. COMPARISON: Chest radiograph 01/29/2022 FINDINGS: Endotracheal tube tip is 8 cm above the bryon. Nasogastric tube tip overlies the gastric fundus. External pacing device has been placed. The lungs are adequately inflated and clear. No evidence of pneumothorax or pleural effusion. Normal heart size.Mediastinal contours are within normal limits. Osseous structures are intact. IMPRESSION: An endotracheal tube is in place, tip is 8 cm above the bryon. Consider advancing 2 to 3 cm for optimal placement. Nasogastric tube is adequately positioned. No focal pulmonary findings. Electronically Signedby Janie Duron MD on 01/29/2022 at 1853 Reported and signed by: Janie Duron MD CC: Self Referred; Elisabet Waldron MD; Erasmo Fay MD Technologist: Maninder Roque; Dallas Ramirez Fluoro Time: DAP (Gy m2): Air Kerma (mGy): Trscr Dt/Tm: 01/29/2022 (1852) by:[email or web address] Electronic Signature Date/Time: 01/29/2022 (1852)Orig Print D/T: S: 01/29/2022 (1855) Name: DANIELE HINKLE [facility] [place] Phys: Elisabet Márquez [address] : 1950 Age: 71 Sex: [place] [id number] Loc: NC.ERICU Exam Date: 01/29/2022 Status: ADM IN PH: FAX: PAGE 1 Signed ReportLIPID PROFILE (CORONARY RISK)2022-01-29 18:30:00 Test Item Value Reference Range Interpretation Comments TRIGLYCERIDES (test 166 mg/dL 0-149 H Accordin g to the National code = TRIG) Institutes of [facility] ([facility]) and theNational Cholesterol Edu cation Program (NCEP), serumtriglyceri de levels between 150-199 mg/dL are consideredBorde rline High. CHOLESTEROL (test 345 mg/dL 0-200 H code = CHOL) CHOLESTEROL/HDL 5 1-6 N RATIO (test code = CHOLHDL) HDL CHOLESTEROL 76 mg/dL 40-60 H According to the National (test code = HDL) Institutes of Health ([facility]) and theNational Cholesterol Edu cation Program (NCEP), an HDLcholesterol >or= 60mg/dL counts as a "negative" risk factor;its presence remove s one risk factor from the total count. LIPOPROTEIN LDL 224 mg/dL 0-100 H (test code = LDLC) [id number] 18:30:00 Test Item Value Reference Range Interpretation Comments LIPASE (test code = LIP) 143 U/L 73-393 N LACTIC [id number] 17:51:00 Test Item Value Reference Range Interpretation Comments LACTIC ACID (test 7.6 mmol/L 0.4-2.0 H Elevated L actate code = LACT) reported to the following Caregiver:Full Name/Title: BIENVENIDO PEREZ/RNabbey AMEZQUITA, on 01/29/22, @ 175 0 ISTAT BLOOD GAS [id number] 17:50:00 Test Item Value Reference Range Interpretation Comments IONIZED CALCIUM 1.21 mmol/L 1.12-1.32 N (test code = CAIABG) VENOUS BLOOD GAS 6.96 pH 7.32-7.42 LL CRITICAL RE SULT - PH (test code = TESTING PERF ORMED BY PHV) PRIMARY CAREGIV ER VENOUS BLOOD GAS 27 mmHg 41-51 L PCO2 (test code = PCO2V) VENOUS BLOOD GAS 70 mmHg 25-40 H PO2 (test code = PO2V) VBG HCO3 (test 6 mmol/L 24-25 L code = HCO3V) VBG BASE EXCESS -26 mmol/L -5-5 L (test code = GLENN) VENOUS BLOOD GAS 81 % 70-75 H O2 SAT (test code = O2SATV) TOTAL CO2 CONTENT 7.0 mmol/L 22-30 LL (test code = TCO2) HEMOGLOBIN POC 11.9 g/dL 12-17 L (test code = HBP) HEMATOCRIT POC 35.0 % 38-51 L (test code = HCTP) SODIUM POC (test 134 mmol/L 138-146 L code = NAP) POTASSIUM POC 5.0 mmol/L 3.5-4.9 H (test code = KP) GLUCOSE POC (test > 625 mg/dL 70-105 HH CRITICAL R ESULT - code = GLUP) TESTING PERFORM ED BY PRIMARY CAREGIVERCRITIC AL RESULT - TESTING PERFO RMED BY PRIMARY CAREGIV ER - CT HEAD/BRAIN W/O [id number] 17:23:00 [facility] : 1950 Sex: FPatient Name: DANIELE HINKLE Unit No: [id number] EXAMS: CPT CODE: [id number] CT HEAD/BRAINW/O CONT 23392 LOCATION: H43 EXAM: CT HEAD WO CONTRAST HISTORY: Altered mental status. TECHNIQUE: Axial imaging the brain from skull base to the vertex without the administration of intravenous contrast. Sagittal and Coronal reconstructions. One or more of the following dose reduction techniques were u sed: Automated exposure control, adjustment of mA and/or kV according to patient size, or iterative reconstruction. COMPARISON: CT brain without contrast 04/03/2019 FINDINGS: There is no evidence of an acute intracranial hemorrhage or extra-axial collection. There is no confluent low density to indicate acute territorial infarct. Mild periventricular and deep white matter low density is present, nonspecific but most commonly attributed to chronic microvascular ischemic change in a patient of this age. The ventricles are midline in position and normal in size. The basilar cisterns are patent and symmetric. The density of the major dural sinuses is within normal limits. Atherosclerosis involves the bilateral carotid arterial vasculature. Stable appearance of the orbits. The right globe is atrophic and calcified. High density material is present in the left globe. The calvarium is intact. Paranasalsinuses are clear. IMPRESSION: No evidence of acute intracranial pathology. Mild chronic microvascular ischemic changes. at 1723 Reported andsigned by: Janie Duron MD CC: Self Referred; Elisabet Waldron MD Technologist: Anastasia Franco CTDI: 46.15 DLP: 1012.25Trscr Dt/Tm: 01/29/2022 (1723) by:[email or web address] Electronic Signature Date/Time: 01/29/2022 (1723)Orig Print D/T: S: 01/29/2022 (1726) Name: DANIELE HINKLE [facility] Phys: CLARICE - Elisabet Waldron [address] : 1950 Age: 71 Sex: [place] [id number] Loc: TN.ERS Exam Date: 01/29/2022 Status: REG ER PH: FAX: PAGE 1 Signed ReportCOVID 19 INHOUSE [id number] 17:12:00 Test Item Value Reference Range Interpretation Comments COVID 19 INHOUSE NEGATIVE Negative Negative re sults do not AG (test code = preclude 201 9-nCoV infection [id number]) andshould not b e used as the sole basis for treatment or otherpatient ma nagement decisions. Nega tive results must becombined with clinical observ ations, patient history , andepidemiologi abhinav information. LACTIC [id number] 17:11:00 Test Item Value Reference Range Interpretation Comments LACTIC ACID (test 5.0 mmol/L 0.4-2.0 H Elevated Lactate code = LACT) reported to the following Caregiver:Full Name/Title:JOSE ORANTES/RN by [place] HIMA.VINNY, on 01/29/22, @ 1707 - XR CHEST 1 [id number] 16:46:00 [facility] : 1950 Sex: FPatient Name: DANIELE HINKLE Unit No: [id number] EXAMS: CPT CODE: [id number] XR CHEST 1 V 31226 H 20 TIME OF STUDY: 01/29/2022 3:25 PM REASON FOR EXAM: AMS/Neuro Deficit COMPARISON: November 28, 2021 FINDINGS: AP view of the chest was obtained. Lungs: Normal lung volume. No mass, or consolidation. Normal pulmonary vascularity. Pleura: No pleural effusion or pneumothorax. Heart and Mediastinum: Normal cardiomediastinal silhouette and great vessels. Bones: Normal regional skeletal structures. IMPRESSION: 1. No acute cardiopulmonary process. at 1646 Reported and signed by: Hector Roach MD CC: Self Referred; Elisabet Waldron MD Technologist: Maninder Chaudhari Time: DAP (Gy m2): Air Kerma (mGy): Trscr Dt/Tm: 01/29/2022 (1645) by:[email or web address] Electronic Signature Date/Time: 01/29/2022 (1645)Orig Print D/T: S: 01/29/2022 (1648) [facility]: Elisabet Márquez [address] : 1950 Age: 71 Sex: [place] [address] Loc: NC.ERS Exam Date: 01/29/2022 Status: REG ER PH: FAX: PAGE 1 Signed ReportBASIC METABOLIC [id number] 16:43:00 Test Item Value Reference Range Interpretation Comments SODIUM (test code = 128 mmol/L 135-145 L NA) POTASSIUM (test code 5.1 mmol/L 3.5-5.1 N = K) CHLORIDE (test code = 91 mmol/L 98-107 L CL) CARBON DIOXIDE (test 9 mmol/L 21-32 L code = CO2) ANION GAP (test code 33.1 2.0-16.0 H = GAP) GLUCOSE (test code = 976 mg/dL 65-99 HH Critic al Value GLU) reported toFirs t Name:MISAEL Martell andrew Name:BRI Tuttle READ BACK AND NIELS Curran NCLABJET, on , @ 5536. BLOOD UREA NITROGEN 41 mg/dL 4-23 H (test code = BUN) GLOMERULAR FILTRATION 26 ml/min >60 L The es timated RATE (test code = glomerular filtration GFR) rate is compute d usingpatient ra ce, age (>18), sex, and serum creatinine. If anyof the needed data elements are mi ssing the Laboratory cannot compute an raysa mation of the glomerul ar filtration rate . CREATININE (test code 2.4 mg/dL 0.6-1.5 H = CREAT) BUN/CREATININE RATIO 17.1 12.0-20.0 N (test code = BUN/CREA) CALCIUM (test code = 10.3 mg/dL 8.5-10.1 H CA) LIVER FUNCTION [id number] 16:43:00 Test Item Value Reference Range Interpretation Comments TOTAL PROTEIN 9.2 g/dL 6.4-8.2 H (test code = PROT) ALBUMIN (test code 3.9 g/dL 3.4-5.0 N = ALB) GLOBULIN (test 5.3 g/dL 2.3-3.5 H code = GLOB) BILIRUBIN TOTAL 0.6 mg/dL 0.2-1.2 N Use of this assay is not (test code = BILT) recommend ed for patients undergoingtreat ment with Eltrombopag due to the potential for falselyelevated results. BILIRUBIN DIRECT 0.2 mg/dL 0.0-0.3 N (test code = BILD) BILIRUBIN INDIRECT 0.4 mg/dL 0.0-0.8 N (test code = BILIND) SGOT/AST (test 26 U/L 15-37 N code = AST) SGPT/ALT (test 25 U/L 6-50 N code = ALT) ALKALINE 163 U/L 45-117 H PHOSPHATASE (test code = ALKP) [id number] 16:43:00 Test Item Value Reference Range Interpretation Comments MAGNESIUM (test code = MAG) 2.3 mg/dL 1.8-2.4 N TROP-I HIGH [id number] 16:43:00 Test Item Value Reference Range Interpretation Comments TROP-I HIGH SENSITIVITY 21 pg/mL 0-53 N CAUT ION: Units of the (test code = TROPIHS) curren t test methodology (pg /mL) differ from the prior test methodolog y (ng/mL) by a fa ctor of 1000. [id number] 16:43:00 Test Item Value Reference Range Interpretation Comments ALCOHOL (test code = ALC) < 3 mg/dL 0-3 N ACETONE [id number] 16:43:00 Test Item Value Reference Range Interpretation Comments ACETONE QUAL (test code = ACETNQL) MODERATE NEGATIVE A CBC W/AUTO [id number] 16:18:00 Test Item Value Reference Range Interpretation Comments WHITE BLOOD CELL (test code = 9.1 10 3/uL 4.5-11.0 N WBC) RED BLOOD CELL (test code = 4.23 10 6/uL 3.50-5.50 N RBC) HEMOGLOBIN (test code = HGB) 12.6 g/dL 12.0-16.0 N HEMATOCRIT (test code = HCT) 44.3 % 37.0-55.0 N MEAN CELL VOLUME (test code = 105 fL 81-102 H MCV) MEAN CELL HGB (test code = 29.8 pg 26.0-34.0 N MCH) MEAN CELL HGB CONCENTRATION 28.4 g/dL 31.0-37.0 L (test code = MCHC) RED CELL DISTRIBUTION WIDTH 14.0 % 11.6-14.4 N (test code = RDW) PLATELET COUNT (test code = 308 10 3/uL 150-400 N PLT) MEAN PLATELET VOLUME (test 10.9 fL 9.0-12.6 N code = MPV) NEUTROPHIL % (test code = NT%) 83.1 % 33.0-76.0 H IMMATURE GRANULOCYTE % (test 3.6 % 0.0-1.0 H code = IG%) LYMPHOCYTE % (test code = LY%) 8.7 % 14.0-56.4 L MONOCYTE % (test code = MO%) 3.4 % 0.0-12.9 N EOSINOPHIL % (test code = EO%) 0.1 % 0.0-7.0 N BASOPHIL % (test code = BA%) 1.1 % 0-2.0 N NUCLEATED RBC % (test code = 0.0 % 0-0.2 N NRBC%) NEUTROPHIL # (test code = NT#) 7.53 10 3/uL 1.5-7.0 H IMMATURE GRANULOCYTE # (test 0.330 x10 3/uL 0.000-0.100 H code = IG#) LYMPHOCYTE # (test code = LY#) 0.79 10 3/uL 1.50-4.00 L MONOCYTE # (test code = MO#) 0.31 10 3/uL 0.20-0.80 N EOSINOPHIL # (test code = EO#) 0.01 10 3/uL 0.0-0.5 N BASOPHIL # (test code = BA#) 0.10 10 3/uL 0.0-0.1 N NUCLEATED RBC # (test code = 0.000 10 3/uL 0.000-0.012 N NRBC#) [id number] 15:42:00 Test Item Value Reference Range Interpretation Comments GLUBED (test > 600 mg/dL 70-105 HH CRITICAL RESULT - TESTING code = GLUBED) PERFORMED BY PRIMARY CAREGIVERIntrav enous administration of N-acetylcystein e which resultsin blood concentrations >5 mg/dL will cause overestim ationof blood glucose results . Do not use during intraven ousinfusion of N'acetylcyst eine. [id number] 15:27:00 Test Item Value Reference Range Interpretation Comments GLUBED (test > 600 mg/dL 70-105 HH CRITICAL RESULT - TESTING code = GLUBED) PERFORMED BY PRIMARY CAREGIVERIntrav enous administration of N-acetylcystein e which resultsin blood concentrations >5 mg/dL will cause overestim ationof blood glucose results . Do not use during intraven ousinfusion of N'acetylcyst eine. [id number] 08:34:00 Test Item Value Reference Range Interpretation Comments GLUBED (test 148 mg/dL 70-105 H Intravenous adm inistration code = GLUBED) of N-acetylcy steine which resultsin blood concentrations >5 mg/dL will cause overestim ationof blood glucose results . Do not use during intraven ousinfusion of N'acetylcyst eine. [id number] 21:34:00 Test Item Value Reference Range Interpretation Comments GLUBED (test 96 mg/dL 70-105 N Intravenous adm inistration of code = GLUBED) N-acetylcyste ine which resultsin blood concentrations >5 mg/dL will cause overestim ationof blood glucose results . Do not use during intraven ousinfusion of N'acetylcystein e. [id number] 16:10:00 Test Item Value Reference Range Interpretation Comments GLUBED (test 377 mg/dL 70-105 H Intravenous adm inistration code = GLUBED) of N-acetylcy steine which resultsin blood concentrations >5 mg/dL will cause overestim ationof blood glucose results . Do not use during intraven ousinfusion of N'acetylcyst eine. [id number] 11:18:00 Test Item Value Reference Range Interpretation Comments GLUBED (test 162 mg/dL 70-105 H Intravenous adm inistration code = GLUBED) of N-acetylcy steine which resultsin blood concentrations >5 mg/dL will cause overestim ationof blood glucose results . Do not use during intraven ousinfusion of N'acetylcyst eine. [id number] 08:35:00 Test Item Value Reference Range Interpretation Comments GLUBED (test 36 mg/dL 70-105 LL CRITICAL RESULT - TESTING code = GLUBED) PERFORMED BY PRIMARY CAREGIVERIntrav enous administration of N-acetylcystein e which resultsin blood concentrations >5 mg/dL will cause overestim ationof blood glucose results . Do not use during intraven ousinfusion of N'acetylcystein e. [id number] 05:26:00 Test Item Value Reference Range Interpretation Comments GLUBED (test 70 mg/dL 70-105 N Intravenous adm inistration of code = GLUBED) N-acetylcyste ine which resultsin blood concentrations >5 mg/dL will cause overestim ationof blood glucose results . Do not use during intraven ousinfusion of N'acetylcystein e. LIPID PROFILE (CORONARY RISK)2021-11-29 02:35:00 Test Item Value Reference Range Interpretation Comments TRIGLYCERIDES (test 269 mg/dL 0-149 H code = TRIG) CHOLESTEROL (test code 303 mg/dL 0-200 H = CHOL) CHOLESTEROL/HDL RATIO 5 1-6 N (test code = CHOLHDL) HDL CHOLESTEROL (test 67 mg/dL 40-60 H Accord ing to the code = HDL) [facility] ([facility]) an d theNational Cholesterol Edu cation Program (NCEP), an HDLcholesterol >or= 60mg/dL counts as a "negative" risk factor;its pres ence removes one ris k factor from the total count. LIPOPROTEIN LDL (test 178 mg/dL 0-100 H code = LDLC) [id number] 21:39:00 Test Item Value Reference Range Interpretation Comments GLUBED (test 299 mg/dL 70-105 H Intravenous adm inistration code = GLUBED) of N-acetylcy steine which resultsin blood concentrations >5 mg/dL will cause overestim ationof blood glucose results . Do not use during intraven ousinfusion of N'acetylcyst eine. HGBA1C - GLYCOSYLATED [id number] 19:50:00 Test Item Value Reference Range Interpretation Comments GLYCOSYLATED > 14.0 % 4.5-5.9 H The [place] [employer] HEMOGLOBIN (HA1C) Associatio n recommends a (test code = GLYHGB) therape uticrange of <7.0% Hemoglobi n A1c for patients with diabetesmellitu s (Type 2 diabetes). COVID 19 INHOUSE [id number] 18:12:00 Test Item Value Reference Range Interpretation Comments COVID 19 INHOUSE NEGATIVE Negative Negative re sults do not AG (test code = preclude 201 9-nCoV infection [id number]) andshould not b e used as the sole basis for treatment or otherpatient ma nagement decisions. Nega tive results must becombined with clinical observ ations, patient history , andepidemiologi abhinav information. [id number] 17:37:00 Test Item Value Reference Range Interpretation Comments GLUBED (test 280 mg/dL 70-105 H Intravenous adm inistration code = GLUBED) of N-acetylcy steine which resultsin blood concentrations >5 mg/dL will cause overestim ationof blood glucose results . Do not use during intraven ousinfusion of N'acetylcyst eine. UA RFLX MICR CULT IF [id number] 15:38:00 Test Item Value Reference Range Interpretation Comments UA COLOR (test code = COLU) STRAW YELLOW UA APPEARANCE (test code = Slightly-Cloudy CLEAR APPU) UA GLUCOSE DIPSTICK (test 3+ NEGATIVE A code = DGLUU) UA BILIRUBIN DIPSTICK (test NEGATIVE NEGATIVE code = BILU) UA KETONE DIPSTICK (test code 1+ NEGATIVE A = KETU) UA SPECIFIC GRAVITY (test 1.025 1.005-1.025 N code = SGU) UA BLOOD DIPSTICK (test code TRACE NEGATIVE A = EVELIN) UA PH DIPSTICK (test code = 5.0 5.0-8.0 KALEY) UA PROTEIN DIPSTICK (test NEGATIVE NEGATIVE code = PROU) UA UROBILINOGEN DIPSTICK NEGATIVE EU/dL 0.1-0.2 (test code = URO) UA NITRITE DIPSTICK (test NEGATIVE NEGATIVE code = EDMUND) UA LEUKOCYTE ESTERASE 3+ NEGATIVE A DIPSTICK (test code = LEUU) UA MICROSCOPIC NEEDED? (test YES NO A code = UAMICRO) UA WBC (test code = WBCU) 51-100 /hpf 0-3 A UA RBC (test code = RBCU) 3-5 /hpf 0-3 A UA BACTERIA (test code = RARE /HPF NEGATIVE BACU) UA SQUAMOUS CELLS (test code Few /HPF FEW = SQU) UA MUCUS (test code = MUCU) OCCASIONAL /lpf Indication for culture: RiskForSepsis-no oth srcSpecimen Description: CLEAN [id number] 14:54:00 Test Item Value Reference Range Interpretation Comments GLUBED (test 380 mg/dL 70-105 H Intravenous adm inistration code = GLUBED) of N-acetylcy steine which resultsin blood concentrations >5 mg/dL will cause overestim ationof blood glucose results . Do not use during intraven ousinfusion of N'acetylcyst eine. BASIC METABOLIC [id number] 14:21:00 Test Item Value Reference Range Interpretation Comments SODIUM (test code = 132 mmol/L 135-145 L NA) POTASSIUM (test code 5.2 mmol/L 3.5-5.1 H = K) CHLORIDE (test code = 100 mmol/L 98-107 N CL) CARBON DIOXIDE (test 20 mmol/L 21-32 L code = CO2) ANION GAP (test code 17.2 2.0-16.0 H = GAP) GLUCOSE (test code = 671 mg/dL 65-99 HH Critica l Value GLU) reported toFirs t Name:SARAI Last Name:MAGGIE Tuttle READ BACK AND VERIFI EDby NCLAB.J, on , @ 1324. BLOOD UREA NITROGEN 27 mg/dL 4-23 H (test code = BUN) GLOMERULAR FILTRATION 36 ml/min >60 L The es timated RATE (test code = glomerular filtration GFR) rate is compute d usingpatient ra ce, age (>18), sex, and serum creatinine. If anyof the needed data elements are mi ssing the Laboratory cannot compute an raysa mation of the glomerul ar filtration rate . CREATININE (test code 1.8 mg/dL 0.6-1.5 H = CREAT) BUN/CREATININE RATIO 15.0 12.0-20.0 N (test code = BUN/CREA) CALCIUM (test code = 8.9 mg/dL 8.5-10.1 N CA) LIVER FUNCTION [id number] 14:21:00 Test Item Value Reference Range Interpretation Comments TOTAL PROTEIN 7.8 g/dL 6.4-8.2 N (test code = PROT) ALBUMIN (test code 3.4 g/dL 3.4-5.0 N = ALB) GLOBULIN (test 4.4 g/dL 2.3-3.5 H code = GLOB) BILIRUBIN TOTAL 0.5 mg/dL 0.2-1.2 N Use of this assay is not (test code = BILT) recommend ed for patients undergoingtreat ment with Eltrombopag due to the potential for falselyelevated results. BILIRUBIN DIRECT < 0.1 mg/dL 0.0-0.3 N (test code = BILD) BILIRUBIN INDIRECT 0.4 mg/dL 0.0-0.8 N (test code = BILIND) SGOT/AST (test 35 U/L 15-37 N code = AST) SGPT/ALT (test 34 U/L 6-50 N code = ALT) ALKALINE 109 U/L 45-117 N PHOSPHATASE (test code = ALKP) [id number] 14:21:00 Test Item Value Reference Range Interpretation Comments MAGNESIUM (test code = MAG) 2.1 mg/dL 1.8-2.4 N TROP-I HIGH [id number] 14:21:00 Test Item Value Reference Range Interpretation Comments TROP-I HIGH SENSITIVITY 44 pg/mL 0-53 N CAUT ION: Units of the (test code = TROPIHS) curren t test methodology (pg /mL) differ from the prior test methodolog y (ng/mL) by a fa ctor of 1000. ACETONE [id number] 14:21:00 Test Item Value Reference Range Interpretation Comments ACETONE QUAL (test code = ACETNQL) SMALL NEGATIVE A [id number] 14:01:00 Test Item Value Reference Range Interpretation Comments GLUBED (test 480 mg/dL 70-105 HH CRITICAL RESULT - TESTING code = GLUBED) PERFORMED BY PRIMARY CAREGIVERIntrav enous administration of N-acetylcystein e which resultsin blood concentrations >5 mg/dL will cause overestim ationof blood glucose results . Do not use during intraven ousinfusion of N'acetylcystein e. LACTIC [id number] 13:21:00 Test Item Value Reference Range Interpretation Comments LACTIC ACID (test code = LACT) 1.0 mmol/L 0.4-2.0 N B-TYPE NATRIURETIC [id number] 13:21:00 Test Item Value Reference Range Interpretation Comments B-TYPE NATRIURETIC PEPTIDE (test 197 pg/mL 0-100 H code = BNP) ISTAT BLOOD GAS [id number] 12:33:00 Test Item Value Reference Range Interpretation Comments IONIZED CALCIUM 1.12 mmol/L 1.12-1.32 N (test code = CAIABG) VENOUS BLOOD GAS 7.34 pH 7.32-7.42 N PH (test code = PHV) VENOUS BLOOD GAS 42 mmHg 41-51 N PCO2 (test code = PCO2V) VENOUS BLOOD GAS 64 mmHg 25-40 H PO2 (test code = PO2V) VBG HCO3 (test 22 mmol/L 24-25 L code = HCO3V) VBG BASE EXCESS -3 mmol/L -5-5 N (test code = GLENN) VENOUS BLOOD GAS 91 % 70-75 H O2 SAT (test code = O2SATV) TOTAL CO2 CONTENT 24.0 mmol/L 22-30 N (test code = TCO2) HEMOGLOBIN POC 11.2 g/dL 12-17 L (test code = HBP) HEMATOCRIT POC 33.0 % 38-51 L (test code = HCTP) SODIUM POC (test 134 mmol/L 138-146 L code = NAP) POTASSIUM POC 4.8 mmol/L 3.5-4.9 N (test code = KP) GLUCOSE POC (test > 625 mg/dL 70-105 HH CRITICAL R ESULT - code = GLUP) TESTING PERFORM ED BY PRIMARY CAREGIVERCRITIC AL RESULT - TESTING PERFO RMED BY PRIMARY CAREGIV ER CBC W/AUTO [id number] 12:28:00 Test Item Value Reference Range Interpretation Comments WHITE BLOOD CELL (test code = 3.3 10 3/uL 4.5-11.0 L WBC) RED BLOOD CELL (test code = 3.45 10 6/uL 3.50-5.50 L RBC) HEMOGLOBIN (test code = HGB) 10.7 g/dL 12.0-16.0 L HEMATOCRIT (test code = HCT) 31.6 % 37.0-55.0 L MEAN CELL VOLUME (test code = 92 fL 81-102 N MCV) MEAN CELL HGB (test code = 31.0 pg 26.0-34.0 N MCH) MEAN CELL HGB CONCENTRATION 33.9 g/dL 31.0-37.0 N (test code = MCHC) RED CELL DISTRIBUTION WIDTH 13.7 % 11.6-14.4 N (test code = RDW) PLATELET COUNT (test code = 235 10 3/uL 150-400 N PLT) MEAN PLATELET VOLUME (test 11.6 fL 9.0-12.6 N code = MPV) NEUTROPHIL % (test code = NT%) 53.1 % 33.0-76.0 N IMMATURE GRANULOCYTE % (test 0.3 % 0.0-1.0 N code = IG%) LYMPHOCYTE % (test code = LY%) 33.1 % 14.0-56.4 N MONOCYTE % (test code = MO%) 10.8 % 0.0-12.9 N EOSINOPHIL % (test code = EO%) 1.8 % 0.0-7.0 N BASOPHIL % (test code = BA%) 0.9 % 0-2.0 N NUCLEATED RBC % (test code = 0.0 % 0-0.2 N NRBC%) NEUTROPHIL # (test code = NT#) 1.76 10 3/uL 1.5-7.0 N IMMATURE GRANULOCYTE # (test 0.010 x10 3/uL 0.000-0.100 N code = IG#) LYMPHOCYTE # (test code = LY#) 1.10 10 3/uL 1.50-4.00 L MONOCYTE # (test code = MO#) 0.36 10 3/uL 0.20-0.80 N EOSINOPHIL # (test code = EO#) 0.06 10 3/uL 0.0-0.5 N BASOPHIL # (test code = BA#) 0.03 10 3/uL 0.0-0.1 N NUCLEATED RBC # (test code = 0.000 10 3/uL 0.000-0.012 N NRBC#) - XR CHEST 1 [id number] 12:06:00 [facility] CYPRESSName: DANIELE HINKLE : 1950 Sex: FPatient Name: DANIELE HINKLE Unit No: [id number] EXAMS: CPT CODE: [id number] XR CHEST 1 V 05371 HISTORY: Cough Location code: B2 FINDINGS: Frontal view of the chest demonstrates normal cardiomediastinal silhouette. The trachea is midline. The lungs are clear. There is no effusion or pneumothorax. The bones are intact. IMPRESSION: No acute pulmonary process. at 1206 Reported and signed by: Som Villegas MD CC: Daniel Díaz MD Technologist: Bal Chaudhari Time: DAP (Gy m2): Air Kerma (mGy): Trscr Dt/Tm: 11/28/2021(1206) by:[email or web address] Electronic Signature Date/Time: 11/28/2021 (1206)Orig Print D/T: S: 11/28/2021 (1210) Name: DANIELE HINKLE [facility] Phys: [id number] - Daniel Díaz [place] [address] : 1950 Age: 71 Sex: [place] [id number] Loc: NC.ERS Exam Date: 11/28/2021 Status: PRE ER PH: FAX: PAGE 1 Signed [id number] 11:54:00 Test Item Value Reference Range Interpretation Comments GLUBED (test 531 mg/dL 70-105 HH CRITICAL RESULT - TESTING code = GLUBED) PERFORMED BY PRIMARY CAREGIVERIntrav enous administration of N-acetylcystein e which resultsin blood concentrations >5 mg/dL will cause overestim ationof blood glucose results . Do not use during intraven ousinfusion of N'acetylcystein e. [id number] 11:18:00 Test Item Value Reference Range Interpretation Comments GLUBED (test 345 mg/dL 70-105 H Intravenous adm inistration code = GLUBED) of N-acetylcy steine which resultsin blood concentrations >5 mg/dL will cause overestim ationof blood glucose results . Do not use during intraven ousinfusion of N'acetylcyst eine. BASIC METABOLIC [id number] 07:07:00 Test Item Value Reference Range Interpretation Comments SODIUM (test code 136 mmol/L 135-145 N = NA) POTASSIUM (test 3.9 mmol/L 3.5-5.1 N code = K) CHLORIDE (test 102 mmol/L 98-107 N code = CL) CARBON DIOXIDE 27 mmol/L 21-32 N (test code = CO2) ANION GAP (test 10.9 2.0-16.0 code = GAP) GLUCOSE (test code 177 mg/dL 65-99 H = GLU) BLOOD UREA 19 mg/dL 4-23 N NITROGEN (test code = BUN) GLOMERULAR >=60 max >60 The estimated FILTRATION RATE estimate ml/min glomerula r (test code = GFR) filtration rate is computed usingpatient ra ce, age (>18), sex, and serum creatinin e. If anyof the neede d data elements a re missing the Laboratory olivier ot compute an estimation of t he glomerular filtration rate . CREATININE (test 1.1 mg/dL 0.6-1.5 N code = CREAT) BUN/CREATININE 17.3 12.0-20.0 N RATIO (test code = BUN/CREA) CALCIUM (test code 8.3 mg/dL 8.5-10.1 L = CA) [id number] 07:07:00 Test Item Value Reference Range Interpretation Comments PHOSPHOROUS (test code = PHOS) 3.4 mg/dL 2.5-4.9 N [id number] 07:07:00 Test Item Value Reference Range Interpretation Comments MAGNESIUM (test code = MAG) 1.7 mg/dL 1.8-2.4 L CBC W/AUTO [id number] 06:42:00 Test Item Value Reference Range Interpretation Comments WHITE BLOOD CELL (test code = 3.3 10 3/uL 4.5-11.0 L WBC) RED BLOOD CELL (test code = 3.02 10 6/uL 3.50-5.50 L RBC) HEMOGLOBIN (test code = HGB) 9.2 g/dL 12.0-16.0 L HEMATOCRIT (test code = HCT) 27.1 % 37.0-55.0 L MEAN CELL VOLUME (test code = 90 fL 81-102 N MCV) MEAN CELL HGB (test code = 30.5 pg 26.0-34.0 N MCH) MEAN CELL HGB CONCENTRATION 33.9 g/dL 31.0-37.0 N (test code = MCHC) RED CELL DISTRIBUTION WIDTH 13.5 % 11.6-14.4 N (test code = RDW) PLATELET COUNT (test code = 172 10 3/uL 150-400 N PLT) MEAN PLATELET VOLUME (test 11.1 fL 9.0-12.6 N code = MPV) NEUTROPHIL % (test code = NT%) 48.7 % 33.0-76.0 N IMMATURE GRANULOCYTE % (test 0.6 % 0.0-1.0 N code = IG%) LYMPHOCYTE % (test code = LY%) 31.9 % 14.0-56.4 N MONOCYTE % (test code = MO%) 17.3 % 0.0-12.9 H EOSINOPHIL % (test code = EO%) 0.9 % 0.0-7.0 N BASOPHIL % (test code = BA%) 0.6 % 0-2.0 N NUCLEATED RBC % (test code = 0.0 % 0-0.2 N NRBC%) NEUTROPHIL # (test code = NT#) 1.60 10 3/uL 1.5-7.0 N IMMATURE GRANULOCYTE # (test 0.020 x10 3/uL 0.000-0.100 N code = IG#) LYMPHOCYTE # (test code = LY#) 1.05 10 3/uL 1.50-4.00 L MONOCYTE # (test code = MO#) 0.57 10 3/uL 0.20-0.80 N EOSINOPHIL # (test code = EO#) 0.03 10 3/uL 0.0-0.5 N BASOPHIL # (test code = BA#) 0.02 10 3/uL 0.0-0.1 N NUCLEATED RBC # (test code = 0.000 10 3/uL 0.000-0.012 N NRBC#) [id number] 04:43:00 Test Item Value Reference Range Interpretation Comments GLUBED (test 168 mg/dL 70-105 H Intravenous adm inistration code = GLUBED) of N-acetylcy steine which resultsin blood concentrations >5 mg/dL will cause overestim ationof blood glucose results . Do not use during intraven ousinfusion of N'acetylcyst eine. [id number] 21:24:00 Test Item Value Reference Range Interpretation Comments GLUBED (test 253 mg/dL 70-105 H Intravenous adm inistration code = GLUBED) of N-acetylcy steine which resultsin blood concentrations >5 mg/dL will cause overestim ationof blood glucose results . Do not use during intraven ousinfusion of N'acetylcyst eine. [id number] 15:45:00 Test Item Value Reference Range Interpretation Comments GLUBED (test 162 mg/dL 70-105 H Intravenous adm inistration code = GLUBED) of N-acetylcy steine which resultsin blood concentrations >5 mg/dL will cause overestim ationof blood glucose results . Do not use during intraven ousinfusion of N'acetylcyst eine. [id number] 11:06:00 Test Item Value Reference Range Interpretation Comments GLUBED (test 196 mg/dL 70-105 H Intravenous adm inistration code = GLUBED) of N-acetylcy steine which resultsin blood concentrations >5 mg/dL will cause overestim ationof blood glucose results . Do not use during intraven ousinfusion of N'acetylcyst eine. [id number] 09:31:00 Test Item Value Reference Range Interpretation Comments MAGNESIUM (test code = MAG) 1.8 mg/dL 1.8-2.4 N CBC W/AUTO [id number] 07:14:00 Test Item Value Reference Range Interpretation Comments WHITE BLOOD CELL (test code = 5.2 10 3/uL 4.5-11.0 N WBC) RED BLOOD CELL (test code = 3.05 10 6/uL 3.50-5.50 L RBC) HEMOGLOBIN (test code = HGB) 9.4 g/dL 12.0-16.0 L HEMATOCRIT (test code = HCT) 27.1 % 37.0-55.0 L MEAN CELL VOLUME (test code = 89 fL 81-102 N MCV) MEAN CELL HGB (test code = 30.8 pg 26.0-34.0 N MCH) MEAN CELL HGB CONCENTRATION 34.7 g/dL 31.0-37.0 N (test code = MCHC) RED CELL DISTRIBUTION WIDTH 13.9 % 11.6-14.4 N (test code = RDW) PLATELET COUNT (test code = 191 10 3/uL 150-400 N PLT) MEAN PLATELET VOLUME (test 11.1 fL 9.0-12.6 N code = MPV) NEUTROPHIL % (test code = NT%) 64.1 % 33.0-76.0 N IMMATURE GRANULOCYTE % (test 0.4 % 0.0-1.0 N code = IG%) LYMPHOCYTE % (test code = LY%) 21.1 % 14.0-56.4 N MONOCYTE % (test code = MO%) 12.6 % 0.0-12.9 N EOSINOPHIL % (test code = EO%) 1.2 % 0.0-7.0 N BASOPHIL % (test code = BA%) 0.6 % 0-2.0 N NUCLEATED RBC % (test code = 0.0 % 0-0.2 N NRBC%) NEUTROPHIL # (test code = NT#) 3.32 10 3/uL 1.5-7.0 N IMMATURE GRANULOCYTE # (test 0.020 x10 3/uL 0.000-0.100 N code = IG#) LYMPHOCYTE # (test code = LY#) 1.09 10 3/uL 1.50-4.00 L MONOCYTE # (test code = MO#) 0.65 10 3/uL 0.20-0.80 N EOSINOPHIL # (test code = EO#) 0.06 10 3/uL 0.0-0.5 N BASOPHIL # (test code = BA#) 0.03 10 3/uL 0.0-0.1 N NUCLEATED RBC # (test code = 0.000 10 3/uL 0.000-0.012 N NRBC#) BASIC METABOLIC [id number] 07:11:00 Test Item Value Reference Range Interpretation Comments SODIUM (test code = 137 mmol/L 135-145 N NA) POTASSIUM (test code 3.4 mmol/L 3.5-5.1 L = K) CHLORIDE (test code = 107 mmol/L 98-107 N CL) CARBON DIOXIDE (test 25 mmol/L 21-32 N code = CO2) ANION GAP (test code 8.4 2.0-16.0 N = GAP) GLUCOSE (test code = 96 mg/dL 65-99 N GLU) BLOOD UREA NITROGEN 19 mg/dL 4-23 N (test code = BUN) GLOMERULAR FILTRATION 57 ml/min >60 L The es timated RATE (test code = glomerular filtration GFR) rate is compute d usingpatient ra ce, age (>18), sex, and serum creatinine. If anyof the needed data elements are mi ssing the Laboratory cannot compute an raysa mation of the glomerul ar filtration rate . CREATININE (test code 1.2 mg/dL 0.6-1.5 N = CREAT) BUN/CREATININE RATIO 15.8 12.0-20.0 N (test code = BUN/CREA) CALCIUM (test code = 7.8 mg/dL 8.5-10.1 L CA) LIPID PROFILE (CORONARY RISK)[id number] 07:11:00 Test Item Value Reference Range Interpretation Comments TRIGLYCERIDES (test 143 mg/dL 0-149 N code = TRIG) CHOLESTEROL (test code 179 mg/dL 0-200 N = CHOL) CHOLESTEROL/HDL RATIO 3 1-6 N (test code = CHOLHDL) HDL CHOLESTEROL (test 63 mg/dL 40-60 H Accord ing to the code = HDL) [facility] ([facility]) an d theNational Cholesterol Edu cation Program (NCEP), an HDLcholesterol >or= 60mg/dL counts as a "negative" risk factor;its pres ence removes one ris k factor from the total count. LIPOPROTEIN LDL (test 96 mg/dL 0-100 N code = LDLC) [id number] 07:11:00 Test Item Value Reference Range Interpretation Comments PHOSPHOROUS (test code = PHOS) 2.2 mg/dL 2.5-4.9 L THROMBOPLASTIN TIME [id number] 06:59:00 Test Item Value Reference Range Interpretation Comments THROMBOPLASTIN TIME PARTIAL 65.5 SECONDS 25.1-36.5 H (test code = PTT) BASIC METABOLIC [id number] 23:08:00 Test Item Value Reference Range Interpretation Comments SODIUM (test code = 137 mmol/L 135-145 N NA) POTASSIUM (test code 4.1 mmol/L 3.5-5.1 N = K) CHLORIDE (test code = 108 mmol/L 98-107 H CL) CARBON DIOXIDE (test 22 mmol/L 21-32 N code = CO2) ANION GAP (test code 11.1 2.0-16.0 N = GAP) GLUCOSE (test code = 156 mg/dL 65-99 H GLU) BLOOD UREA NITROGEN 22 mg/dL 4-23 N (test code = BUN) GLOMERULAR FILTRATION 48 ml/min >60 L The es timated RATE (test code = glomerular filtration GFR) rate is compute d usingpatient ra ce, age (>18), sex, and serum creatinine. If anyof the needed data elements are mi ssing the Laboratory cannot compute an raysa mation of the glomerul ar filtration rate . CREATININE (test code 1.4 mg/dL 0.6-1.5 N = CREAT) BUN/CREATININE RATIO 15.7 12.0-20.0 N (test code = BUN/CREA) CALCIUM (test code = 7.9 mg/dL 8.5-10.1 L CA) Spec Comments: While on insulin dripComments to Phleb: Increase to Q 1hour if less than [id number] 23:08:00 Test Item Value Reference Range Interpretation Comments PHOSPHOROUS (test code = PHOS) 1.8 mg/dL 2.5-4.9 L Spec Comments: While on insulin dripComments to Phleb: Increase to Q 1hour if less than [id number] 21:04:00 Test Item Value Reference Range Interpretation Comments GLUBED (test 166 mg/dL 70-105 H Intravenous adm inistration code = GLUBED) of N-acetylcy steine which resultsin blood concentrations >5 mg/dL will cause overestim ationof blood glucose results . Do not use during intraven ousinfusion of N'acetylcyst eide. HGBA1C - GLYCOSYLATED [id number] 19:08:00 Test Item Value Reference Range Interpretation Comments GLYCOSYLATED > 15.5 % 4.8-5.6 H The [place] [employer] HEMOGLOBIN (HA1C) Associatio n recommends a (test code = GLYHGB) therape uticrange of <7.0% Hemoglobi n A1c for patients with diabetesmellitu s (Type 2 diabetes). Pred iabetes: 5.7 - 6.4 Diabe susan: >6.4 Glycemic contro l for adults with tati betes: <7.0Performed A t: HD [facility] [address] [id number] deisi Lambert MD Ph:[phone] THROMBOPLASTIN TIME [id number] 18:35:00 Test Item Value Reference Range Interpretation Comments THROMBOPLASTIN TIME PARTIAL 66.2 SECONDS 25.1-36.5 H (test code = PTT) [id number] 16:48:00 Test Item Value Reference Range Interpretation Comments GLUBED (test 248 mg/dL 70-105 H Intravenous adm inistration code = GLUBED) of N-acetylcy steine which resultsin blood concentrations >5 mg/dL will cause overestim ationof blood glucose results . Do not use during intraven ousinfusion of N'acetylcyst eine. THROMBOPLASTIN TIME [id number] 12:58:00 Test Item Value Reference Range Interpretation Comments THROMBOPLASTIN TIME PARTIAL 67.7 SECONDS 25.1-36.5 H (test code = PTT) [id number] 11:30:00 Test Item Value Reference Range Interpretation Comments GLUBED (test 216 mg/dL 70-105 H Intravenous adm inistration code = GLUBED) of N-acetylcy steine which resultsin blood concentrations >5 mg/dL will cause overestim ationof blood glucose results . Do not use during intraven ousinfusion of N'acetylcyst eine. [id number] 08:05:00 Test Item Value Reference Range Interpretation Comments GLUBED (test 171 mg/dL 70-105 H Intravenous adm inistration code = GLUBED) of N-acetylcy steine which resultsin blood concentrations >5 mg/dL will cause overestim ationof blood glucose results . Do not use during intraven ousinfusion of N'acetylcyst eine. [id number] 07:49:00 Test Item Value Reference Range Interpretation Comments GLUBED (test 25 mg/dL 70-105 LL CRITICAL RESULT - TESTING code = GLUBED) PERFORMED BY PRIMARY CAREGIVERIntrav enous administration of N-acetylcystein e which resultsin blood concentrations >5 mg/dL will cause overestim ationof blood glucose results . Do not use during intraven ousinfusion of N'acetylcystein e. [id number] 07:32:00 Test Item Value Reference Range Interpretation Comments GLUBED (test 27 mg/dL 70-105 LL CRITICAL RESULT - TESTING code = GLUBED) PERFORMED BY PRIMARY CAREGIVERIntrav enous administration of N-acetylcystein e which resultsin blood concentrations >5 mg/dL will cause overestim ationof blood glucose results . Do not use during intraven ousinfusion of N'acetylcystein e. PROTHROMBIN [id number] 05:21:00 Test Item Value Reference Range Interpretation Comments PROTHROMBIN TIME 9.8 SECONDS 9.4-12.5 N PATIENT (test code = PTP) INTERNATIONAL 0.9 RATIO 0.8-1.1 N THE INR IS USE FUL ONLY NORMAL RATIO (test FOR MONIT ORING code = INR) ANTICOAGULANT T HERAPY.IT MAY BE UNRELIAB LE IN THE INITIAL PHASE O F ANTICOAGULATION AND IN UNSTABLE PATIEN TS. 2.0-3.0 is the recommended INR for the following:Preve ntion of venous thrombol ism in high-risk patients;treatm ent of venous thrombos is and pulmonary embol ism aftera course o f heparin; preven tion of systemic emboli sm in avariety of con dition, including atria l fibrillation andprosthetic t issue heart valves.2. 5-3.5 is the recommended INR for the following:P rosthetic mechanical hear t values and/or recurren t systemicemboliz ation. THROMBOPLASTIN TIME [id number] 05:21:00 Test Item Value Reference Range Interpretation Comments THROMBOPLASTIN TIME PARTIAL 25.3 SECONDS 25.1-36.5 N (test code = PTT) BASIC METABOLIC [id number] 04:36:00 Test Item Value Reference Range Interpretation Comments SODIUM (test code = 143 mmol/L 135-145 N NA) POTASSIUM (test code 3.8 mmol/L 3.5-5.1 N = K) CHLORIDE (test code = 112 mmol/L 98-107 H CL) CARBON DIOXIDE (test 25 mmol/L 21-32 N code = CO2) ANION GAP (test code 9.8 2.0-16.0 N = GAP) GLUCOSE (test code = 86 mg/dL 65-99 N GLU) BLOOD UREA NITROGEN 29 mg/dL 4-23 H (test code = BUN) GLOMERULAR FILTRATION 48 ml/min >60 L The es timated RATE (test code = glomerular filtration GFR) rate is compute d usingpatient ra ce, age (>18), sex, and serum creatinine. If anyof the needed data elements are mi ssing the Laboratory cannot compute an raysa mation of the glomerul ar filtration rate . CREATININE (test code 1.4 mg/dL 0.6-1.5 N = CREAT) BUN/CREATININE RATIO 20.7 12.0-20.0 H (test code = BUN/CREA) CALCIUM (test code = 7.7 mg/dL 8.5-10.1 L CA) [id number] 04:36:00 Test Item Value Reference Range Interpretation Comments PHOSPHOROUS (test code = PHOS) 2.2 mg/dL 2.5-4.9 L TROP-I HIGH [id number] 04:36:00 Test Item Value Reference Range Interpretation Comments TROP-I HIGH 4198 pg/mL 0-53 HH Critical Value SENSITIVITY (test code repor sarah beth toFirst = TROPIHS) Name:ISABELLA wilson Name:MARIANO JUSTICE READ BACK AND VERIFIEDby [facility] [id number], on 11/07/21, @ 1443.CAUTION: U nits of the current test methodology (pg /mL) differ from the prior test methodolog y (ng/mL) by a fa ctor of 1000. CBC W/AUTO [id number] 04:23:00 Test Item Value Reference Range Interpretation Comments WHITE BLOOD CELL (test code = 7.6 10 3/uL 4.5-11.0 N WBC) RED BLOOD CELL (test code = 3.30 10 6/uL 3.50-5.50 L RBC) HEMOGLOBIN (test code = HGB) 10.2 g/dL 12.0-16.0 L HEMATOCRIT (test code = HCT) 29.7 % 37.0-55.0 L MEAN CELL VOLUME (test code = 90 fL 81-102 MCV) MEAN CELL HGB (test code = 30.9 pg 26.0-34.0 N MCH) MEAN CELL HGB CONCENTRATION 34.3 g/dL 31.0-37.0 N (test code = MCHC) RED CELL DISTRIBUTION WIDTH 13.3 % 11.6-14.4 N (test code = RDW) PLATELET COUNT (test code = 237 10 3/uL 150-400 N PLT) MEAN PLATELET VOLUME (test 10.8 fL 9.0-12.6 N code = MPV) NEUTROPHIL % (test code = NT%) 70.0 % 33.0-76.0 N IMMATURE GRANULOCYTE % (test 1.2 % 0.0-1.0 H code = IG%) LYMPHOCYTE % (test code = LY%) 15.9 % 14.0-56.4 N MONOCYTE % (test code = MO%) 11.8 % 0.0-12.9 N EOSINOPHIL % (test code = EO%) 0.7 % 0.0-7.0 N BASOPHIL % (test code = BA%) 0.4 % 0-2.0 N NUCLEATED RBC % (test code = 0.0 % 0-0.2 N NRBC%) NEUTROPHIL # (test code = NT#) 5.35 10 3/uL 1.5-7.0 N IMMATURE GRANULOCYTE # (test 0.090 x10 3/uL 0.000-0.100 N code = IG#) LYMPHOCYTE # (test code = LY#) 1.21 10 3/uL 1.50-4.00 L MONOCYTE # (test code = MO#) 0.90 10 3/uL 0.20-0.80 H EOSINOPHIL # (test code = EO#) 0.05 10 3/uL 0.0-0.5 N BASOPHIL # (test code = BA#) 0.03 10 3/uL 0.0-0.1 N NUCLEATED RBC # (test code = 0.000 10 3/uL 0.000-0.012 N NRBC#) [id number] 03:38:00 Test Item Value Reference Range Interpretation Comments GLUBED (test 95 mg/dL 70-105 N Intravenous adm inistration of code = GLUBED) N-acetylcyste ine which resultsin blood concentrations >5 mg/dL will cause overestim ationof blood glucose results . Do not use during intraven ousinfusion of N'acetylcystein e. [id number] 02:06:00 Test Item Value Reference Range Interpretation Comments GLUBED (test 140 mg/dL 70-105 H Intravenous adm inistration code = GLUBED) of N-acetylcy steine which resultsin blood concentrations >5 mg/dL will cause overestim ationof blood glucose results . Do not use during intraven ousinfusion of N'acetylcyst eine. [id number] 01:27:00 Test Item Value Reference Range Interpretation Comments GLUBED (test 154 mg/dL 70-105 H Intravenous adm inistration code = GLUBED) of N-acetylcy steine which resultsin blood concentrations >5 mg/dL will cause overestim ationof blood glucose results . Do not use during intraven ousinfusion of N'acetylcyst eine. [id number] 00:40:00 Test Item Value Reference Range Interpretation Comments GLUBED (test 69 mg/dL 70-105 L Intravenous adm inistration of code = GLUBED) N-acetylcyste ine which resultsin blood concentrations >5 mg/dL will cause overestim ationof blood glucose results . Do not use during intraven ousinfusion of N'acetylcystein e. [id number] 23:29:00 Test Item Value Reference Range Interpretation Comments GLUBED (test 109 mg/dL 70-105 H Intravenous adm inistration code = GLUBED) of N-acetylcy steine which resultsin blood concentrations >5 mg/dL will cause overestim ationof blood glucose results . Do not use during intraven ousinfusion of N'acetylcyst eine. [id number] 22:40:00 Test Item Value Reference Range Interpretation Comments GLUBED (test 132 mg/dL 70-105 H Intravenous adm inistration code = GLUBED) of N-acetylcy steine which resultsin blood concentrations >5 mg/dL will cause overestim ationof blood glucose results . Do not use during intraven ousinfusion of N'acetylcyst eine. BASIC METABOLIC [id number] 22:08:00 Test Item Value Reference Range Interpretation Comments SODIUM (test code = 142 mmol/L 135-145 N NA) POTASSIUM (test code 4.3 mmol/L 3.5-5.1 N = K) CHLORIDE (test code = 111 mmol/L 98-107 H CL) CARBON DIOXIDE (test 25 mmol/L 21-32 N code = CO2) ANION GAP (test code 10.3 2.0-16.0 = GAP) GLUCOSE (test code = 131 mg/dL 65-99 H GLU) BLOOD UREA NITROGEN 32 mg/dL 4-23 H (test code = BUN) GLOMERULAR FILTRATION 38 ml/min >60 L The es timated RATE (test code = glomerular filtration GFR) rate is compute d usingpatient ra ce, age (>18), sex, and serum creatinine. If anyof the needed data elements are mi ssing the Laboratory cannot compute an raysa mation of the glomerul ar filtration rate . CREATININE (test code 1.7 mg/dL 0.6-1.5 H = CREAT) BUN/CREATININE RATIO 18.8 12.0-20.0 N (test code = BUN/CREA) CALCIUM (test code = 7.7 mg/dL 8.5-10.1 L CA) Spec Comments: While on insulin dripComments to Phleb: Increase to Q 1hour if less than [id number] 22:08:00 Test Item Value Reference Range Interpretation Comments PHOSPHOROUS (test code = PHOS) 2.3 mg/dL 2.5-4.9 L Spec Comments: While on insulin dripComments to Phleb: Increase to Q 1hour if less than [id number] 22:08:00 Test Item Value Reference Range Interpretation Comments MAGNESIUM (test code = MAG) 1.8 mg/dL 1.8-2.4 N Spec Comments: While on insulin dripComments to Phleb: Increase to Q 1hour if less than 3.3TROP-I HIGH [id number] 22:08:00 Test Item Value Reference Range Interpretation Comments TROP-I HIGH 4881 pg/mL 0-53 HH Critical Value SENSITIVITY (test code repor sarah beth toFirst = TROPIHS) Name:ISABELLA wilson Name:MARIANO JUSTICE READ BACK AND VERIFIEDby 2IDP [id number], on 11/06/21, @ 8028.CAUTION: U nits of the current test methodology (pg /mL) differ from the prior test methodolog y (ng/mL) by a fa ctor of 1000. Spec Comments: While on insulin dripComments to Phleb: Increase to Q 1hour if less than [id number] 21:24:00 Test Item Value Reference Range Interpretation Comments GLUBED (test 137 mg/dL 70-105 H Intravenous adm inistration code = GLUBED) of N-acetylcy steine which resultsin blood concentrations >5 mg/dL will cause overestim ationof blood glucose results . Do not use during intraven ousinfusion of N'acetylcyst eine. [id number] 20:12:00 Test Item Value Reference Range Interpretation Comments GLUBED (test 152 mg/dL 70-105 H Intravenous adm inistration code = GLUBED) of N-acetylcy steine which resultsin blood concentrations >5 mg/dL will cause overestim ationof blood glucose results . Do not use during intraven ousinfusion of N'acetylcyst eine. [id number] 19:35:00 Test Item Value Reference Range Interpretation Comments GLUBED (test 204 mg/dL 70-105 H Intravenous adm inistration code = GLUBED) of N-acetylcy steine which resultsin blood concentrations >5 mg/dL will cause overestim ationof blood glucose results . Do not use during intraven ousinfusion of N'acetylcyst eine. [id number] 18:40:00 Test Item Value Reference Range Interpretation Comments GLUBED (test 218 mg/dL 70-105 H Intravenous adm inistration code = GLUBED) of N-acetylcy steine which resultsin blood concentrations >5 mg/dL will cause overestim ationof blood glucose results . Do not use during intraven ousinfusion of N'acetylcyst eine. TROP-I HIGH [id number] 18:02:00 Test Item Value Reference Range Interpretation Comments TROP-I HIGH 3743 pg/mL 0-53 HH Critical Value SENSITIVITY (test code repor sarah beth toFirst = TROPIHS) Name: JAY Last Name: CAN JEFFREY READ BACK AND VERIFIEDby NCLAB.CL, on 11/06/21, @ 6092.CAUTION: U nits of the current test methodology (pg /mL) differ from the prior test methodolog y (ng/mL) by a fa ctor of 1000. BASIC METABOLIC [id number] 18:00:00 Test Item Value Reference Range Interpretation Comments SODIUM (test code = 142 mmol/L 135-145 N NA) POTASSIUM (test code 4.3 mmol/L 3.5-5.1 N = K) CHLORIDE (test code = 108 mmol/L 98-107 H CL) CARBON DIOXIDE (test 20 mmol/L 21-32 L code = CO2) ANION GAP (test code 18.3 2.0-16.0 H = GAP) GLUCOSE (test code = 293 mg/dL 65-99 H GLU) BLOOD UREA NITROGEN 36 mg/dL 4-23 H (test code = BUN) GLOMERULAR FILTRATION 38 ml/min >60 L The es timated RATE (test code = glomerular filtration GFR) rate is compute d usingpatient ra ce, age (>18), sex, and serum creatinine. If anyof the needed data elements are mi ssing the Laboratory cannot compute an raysa mation of the glomerul ar filtration rate . CREATININE (test code 1.7 mg/dL 0.6-1.5 H = CREAT) BUN/CREATININE RATIO 21.2 12.0-20.0 H (test code = BUN/CREA) CALCIUM (test code = 7.8 mg/dL 8.5-10.1 L CA) Spec Comments: While on insulin dripComments to Phleb: Increase to Q 1hour if less than [id number] 18:00:00 Test Item Value Reference Range Interpretation Comments PHOSPHOROUS (test code = PHOS) 3.7 mg/dL 2.5-4.9 N Spec Comments: While on insulin dripComments to Phleb: Increase to Q 1hour if less than 3.3COVID 19 INHOUSE [id number] 17:48:00 Test Item Value Reference Range Interpretation Comments COVID 19 INHOUSE NEGATIVE Negative Negative re sults do not AG (test code = preclude 201 9-nCoV infection [id number]) andshould not b e used as the sole basis for treatment or otherpatient ma nagement decisions. Nega tive results must becombined with clinical observ ations, patient history , andepidemiologi abhinav information. VITAMIN [id number] 16:55:00 Test Item Value Reference Range Interpretation Comments VITAMIN B12 (test code = VITB12) 3945 pg/mL 254-1320 H T3 [id number] 16:55:00 Test Item Value Reference Range Interpretation Comments T3 UPTAKE (test code = T3UP) 35.0 % 31.0-39.0 N T4 (THYROXINE)2021-11-06 16:55:00 Test Item Value Reference Range Interpretation Comments T4 (THYROXINE) (test code = T4) 4.6 ug/dL 4.7-11.4 L THYROID STIMULATING [id number] 16:55:00 Test Item Value Reference Range Interpretation Comments THYROID STIMULATING HORMONE (test 0.72 mIU/mL 0.36-3.74 N code = TSH) [id number] 16:36:00 Test Item Value Reference Range Interpretation Comments GLUBED (test 352 mg/dL 70-105 H Intravenous adm inistration code = GLUBED) of N-acetylcy steine which resultsin blood concentrations >5 mg/dL will cause overestim ationof blood glucose results . Do not use during intraven ousinfusion of N'acetylcyst eine. VENOUS BLOOD [id number] 16:28:00 Test Item Value Reference Range Interpretation Comments VENOUS BLOOD GAS PH 7.19 pH 7.32-7.42 L (test code = PHV) VENOUS BLOOD GAS 37 mmHg 41-51 L PCO2 (test code = PCO2V) VENOUS BLOOD GAS PO2 45 mmHg 25-40 H (test code = PO2V) VBG HCO3 (test code 14 mmol/L 24-25 L = HCO3V) VBG BASE EXCESS -14 mmol/L -5-5 L (test code = GLENN) VENOUS BLOOD GAS Venous Notified: MELISA TYPE (test code = SALLY by BARBARA SHARMA) NEAL on 2021 VENOUS BLOOD GAS 28.0 0.0-1000.0 N FIO2 (test code = FIO2V) VBG VENT MODE (test NC code = MODEV) VENOUS BLOOD GAS A-Line SITE (test code = SITEV) VITAMIN D [id number] 15:51:00 Test Item Value Reference Range Interpretation Comments VITAMIN D 25-HYDROXY 18 ng/mL 30-100 L Level n g/mLDeficient (test code = VITD25) <20Insu fficient 20-29Optimal le vels 30-100 [id number] 15:36:00 Test Item Value Reference Range Interpretation Comments GLUBED (test 374 mg/dL 70-105 H Intravenous adm inistration code = GLUBED) of N-acetylcy steine which resultsin blood concentrations >5 mg/dL will cause overestim ationof blood glucose results . Do not use during intraven ousinfusion of N'acetylcyst eine. BASIC METABOLIC [id number] 15:27:00 Test Item Value Reference Range Interpretation Comments SODIUM (test code = 135 mmol/L 135-145 N NA) POTASSIUM (test code 4.3 mmol/L 3.5-5.1 N = K) CHLORIDE (test code = 103 mmol/L 98-107 N CL) CARBON DIOXIDE (test 15 mmol/L 21-32 L code = CO2) ANION GAP (test code 21.3 2.0-16.0 H = GAP) GLUCOSE (test code = 418 mg/dL 65-99 HH Critica l Value GLU) reported toFirs t Name: JAY Song kulwinder: REYES JEFFREY LTS READ BACK AND VERIFIEDby NCLA B.CL, on 11/06/21, @ 8274. BLOOD UREA NITROGEN 40 mg/dL 4-23 H (test code = BUN) GLOMERULAR FILTRATION 34 ml/min >60 L The es timated RATE (test code = glomerular filtration GFR) rate is compute d usingpatient ra ce, age (>18), sex, and serum creatinine. If anyof the needed data elements are mi ssing the Laboratory cannot compute an raysa mation of the glomerul ar filtration rate . CREATININE (test code 1.9 mg/dL 0.6-1.5 H = CREAT) BUN/CREATININE RATIO 21.1 12.0-20.0 H (test code = BUN/CREA) CALCIUM (test code = 7.7 mg/dL 8.5-10.1 L CA) Spec Comments: While on insulin dripComments to Phleb: Increase to Q 1hour if less than [id number] 15:27:00 Test Item Value Reference Range Interpretation Comments PHOSPHOROUS (test code = PHOS) 5.1 mg/dL 2.5-4.9 H Spec Comments: While on insulin dripComments to Phleb: Increase to Q 1hour if less than 3.3LACTIC [id number] 15:20:00 Test Item Value Reference Range Interpretation Comments LACTIC ACID (test code = LACT) 1.8 mmol/L 0.4-2.0 N [id number] 14:29:00 Test Item Value Reference Range Interpretation Comments GLUBED (test 425 mg/dL 70-105 HH CRITICAL RESULT - TESTING code = GLUBED) PERFORMED BY PRIMARY CAREGIVERIntrav enous administration of N-acetylcystein e which resultsin blood concentrations >5 mg/dL will cause overestim ationof blood glucose results . Do not use during intraven ousinfusion of N'acetylcystein e. URINALYSIS [id number] 14:00:00 Test Item Value Reference Range Interpretation Comments UA COLOR (test code = COLU) STRAW YELLOW UA APPEARANCE (test code = CLEAR CLEAR APPU) UA GLUCOSE DIPSTICK (test 3+ NEGATIVE A code = DGLUU) UA BILIRUBIN DIPSTICK (test NEGATIVE NEGATIVE code = BILU) UA KETONE DIPSTICK (test code 2+ NEGATIVE A = KETU) UA SPECIFIC GRAVITY (test 1.017 1.005-1.025 N code = SGU) UA BLOOD DIPSTICK (test code 1+ NEGATIVE A = EVELIN) UA PH DIPSTICK (test code = 5.0 5.0-8.0 KALEY) UA PROTEIN DIPSTICK (test NEGATIVE NEGATIVE code = PROU) UA UROBILINOGEN DIPSTICK NEGATIVE EU/dL 0.1-0.2 (test code = URO) UA NITRITE DIPSTICK (test NEGATIVE NEGATIVE code = EDMUND) UA LEUKOCYTE ESTERASE TRACE NEGATIVE A DIPSTICK (test code = LEUU) UA MICROSCOPIC NEEDED? (test YES NO A code = UAMICRO) UA WBC (test code = WBCU) 51-100 /hpf 0-3 A UA RBC (test code = RBCU) 0-2 /hpf 0-3 UA BACTERIA (test code = NONE SEEN /HPF NEGATIVE BACU) UA SQUAMOUS CELLS (test code RARE /HPF FEW = SQU) UA MUCUS (test code = MUCU) OCCASIONAL /lpf [id number] 12:44:00 Test Item Value Reference Range Interpretation Comments GLUBED (test 483 mg/dL 70-105 HH CRITICAL RESULT - TESTING code = GLUBED) PERFORMED BY PRIMARY CAREGIVERIntrav enous administration of N-acetylcystein e which resultsin blood concentrations >5 mg/dL will cause overestim ationof blood glucose results . Do not use during intraven ousinfusion of N'acetylcystein e. [id number] 12:30:00 Test Item Value Reference Range Interpretation Comments PHOSPHOROUS (test code = PHOS) 7.0 mg/dL 2.5-4.9 H CREATINE KINASE (CK)2021-11-06 12:30:00 Test Item Value Reference Range Interpretation Comments CREATINE KINASE (CK) (test code = CK) 108 U/L 26-308 N [id number] 12:30:00 Test Item Value Reference Range Interpretation Comments AMYLASE (test code = MINOO) 42 U/L 25-115 N OSMOLALITY [id number] 12:30:00 Test Item Value Reference Range Interpretation Comments OSMOLALITY SERUM (test code = 339 mOsm/kg 278-305 H OSMO) - XR CHEST 1 [id number] 11:43:00 [facility]PRESS[facility]: D[facility] : 1950 Sex: FPatient Name: DANIELE HINKLE Unit No: [id number] EXAMS: CPT CODE: [id number] XR CHEST 1 V 01959 Chest one view AP 11/06/2021 11:43 AM CLINICAL HISTORY: Diabetic ketoacidosis COMPARISON: 05/03/2021 LOCATION: W1 FINDINGS: The lungs are clear. Cardiomediastinal contours are within normal limits. The central pulmonary vasculature is not engorged. IMPRESSION: Unremarkable frontal chest radiograph. at 1143 Reported and signed by: Dixon Romero CC: DOES_NOT KNOW; Erasmo Fay MD; Jameel Viera MD Technologist: Stephanie Doll; Dallas Chaudhari Time: DAP (Gy m2): Air Kerma (mGy): Trscr Dt/Tm: 11/06/2021 (1143) by:[email or web address] Electronic Signature Date/Time: 11/06/2021 (1143)Orig Print D/T: S: 11/06/2021 (1147) Name: DANIELE HINKLE [facility] [place]: [place] [address] : 1950 Age:71 Sex: [place] [id number] Loc: NC.IC16 A Exam Date: 11/06/2021 Status: ADM INPH: FAX: PAGE 1 Signed ReportBASIC METABOLIC [id number] 11:38:00 Test Item Value Reference Range Interpretation Comments SODIUM (test code = 127 mmol/L 135-145 L NA) POTASSIUM (test code 5.1 mmol/L 3.5-5.1 N = K) CHLORIDE (test code = 93 mmol/L 98-107 L CL) CARBON DIOXIDE (test 9 mmol/L 21-32 L code = CO2) ANION GAP (test code 30.1 2.0-16.0 H = GAP) GLUCOSE (test code = 680 mg/dL 65-99 HH Critica l Value GLU) reported toFirs t Name: MELISA Gerardo e: LYLA ZAVALA RESULTS READ BACK AND VERIFIEDby NCLA B.CL, on 11/06/21, @ 1128. BLOOD UREA NITROGEN 45 mg/dL 4-23 H (test code = BUN) GLOMERULAR FILTRATION 29 ml/min >60 L The es timated RATE (test code = glomerular filtration GFR) rate is compute d usingpatient ra ce, age (>18), sex, and serum creatinine. If anyof the needed data elements are mi ssing the Laboratory cannot compute an raysa mation of the glomerul ar filtration rate . CREATININE (test code 2.2 mg/dL 0.6-1.5 H = CREAT) BUN/CREATININE RATIO 20.5 12.0-20.0 H (test code = BUN/CREA) CALCIUM (test code = 8.8 mg/dL 8.5-10.1 N CA) LIVER FUNCTION [id number] 11:38:00 Test Item Value Reference Range Interpretation Comments TOTAL PROTEIN 7.3 g/dL 6.4-8.2 N (test code = PROT) ALBUMIN (test code 3.3 g/dL 3.4-5.0 L = ALB) GLOBULIN (test 4.0 g/dL 2.3-3.5 H code = GLOB) BILIRUBIN TOTAL 0.5 mg/dL 0.2-1.2 N Use of this assay is not (test code = BILT) recommend ed for patients undergoingtreat ment with Eltrombopag due to the potential for falselyelevated results. BILIRUBIN DIRECT 0.2 mg/dL 0.0-0.3 N (test code = BILD) BILIRUBIN INDIRECT 0.3 mg/dL 0.0-0.8 N (test code = BILIND) SGOT/AST (test 25 U/L 15-37 N code = AST) SGPT/ALT (test 25 U/L 6-50 N code = ALT) ALKALINE 91 U/L 45-117 N PHOSPHATASE (test code = ALKP) TROP-I HIGH [id number] 11:38:00 Test Item Value Reference Range Interpretation Comments TROP-I HIGH 289 pg/mL 0-53 HH Critical Value SENSITIVITY (test code repor sarah beth Coppola Name: = TROPIHS) MELISA Greardo e: LYLA ZAVALA RESULTS READ BACK AND VERIFIEDby CARRI FARRELL, on 11/06/21, @ 1426.CAUTION: U nits of the current susan t methodology (pg /mL) differ from the prior test methodolog y (ng/mL) by a fa ctor of 1000. ACETONE [id number] 11:38:00 Test Item Value Reference Range Interpretation Comments ACETONE QUAL (test code = ACETNQL) LARGE NEGATIVE A PROTHROMBIN [id number] 11:07:00 Test Item Value Reference Range Interpretation Comments PROTHROMBIN TIME 9.9 SECONDS 9.4-12.5 N PATIENT (test code = PTP) INTERNATIONAL 0.9 RATIO 0.8-1.1 N THE INR IS USE FUL ONLY NORMAL RATIO (test FOR MONIT ORING code = INR) ANTICOAGULANT T HERAPY.IT MAY BE UNRELIAB LE IN THE INITIAL PHASE O F ANTICOAGULATION AND IN UNSTABLE PATIEN TS. 2.0-3.0 is the recommended INR for the following:Preve ntion of venous thrombol ism in high-risk patients;treatm ent of venous thrombos is and pulmonary embol ism aftera course o f heparin; preven tion of systemic emboli sm in avariety of con dition, including atria l fibrillation andprosthetic t issue heart valves.2. 5-3.5 is the recommended INR for the following:P rosthetic mechanical hear t values and/or recurren t systemicemboliz ation. THROMBOPLASTIN TIME [id number] 11:07:00 Test Item Value Reference Range Interpretation Comments THROMBOPLASTIN TIME PARTIAL 30.2 SECONDS 25.1-36.5 N (test code = PTT) [id number] 11:05:00 Test Item Value Reference Range Interpretation Comments GLUBED (test 593 mg/dL 70-105 HH CRITICAL RESULT - TESTING code = GLUBED) PERFORMED BY PRIMARY CAREGIVERIntrav enous administration of N-acetylcystein e which resultsin blood concentrations >5 mg/dL will cause overestim ationof blood glucose results . Do not use during intraven ousinfusion of N'acetylcystein e. CBC W/O [id number] 10:33:00 Test Item Value Reference Range Interpretation Comments WHITE BLOOD CELL (test code = 10.3 10 3/uL 4.5-11.0 N WBC) RED BLOOD CELL (test code = RBC) 3.60 10 6/uL 3.50-5.50 N HEMOGLOBIN (test code = HGB) 11.3 g/dL 12.0-16.0 L HEMATOCRIT (test code = HCT) 34.2 % 37.0-55.0 L MEAN CELL VOLUME (test code = 95 fL 81-102 N MCV) MEAN CELL HGB (test code = MCH) 31.4 pg 26.0-34.0 N MEAN CELL HGB CONCENTRATION 33.0 g/dL 31.0-37.0 N (test code = MCHC) RED CELL DISTRIBUTION WIDTH 13.2 % 11.6-14.4 N (test code = RDW) PLATELET COUNT (test code = PLT) 248 10 3/uL 150-400 N ISTAT BLOOD GAS [id number] 10:24:00 Test Item Value Reference Range Interpretation Comments IONIZED CALCIUM 1.13 mmol/L 1.12-1.32 N (test code = CAIABG) VENOUS BLOOD GAS 7.12 pH 7.32-7.42 LL CRITICAL RE SULT - PH (test code = TESTING PERF ORMED BY PHV) PRIMARY CAREGIV ER VENOUS BLOOD GAS 28 mmHg 41-51 L PCO2 (test code = PCO2V) VENOUS BLOOD GAS 57 mmHg 25-40 H PO2 (test code = PO2V) VBG HCO3 (test 9 mmol/L 24-25 L code = HCO3V) VBG BASE EXCESS -20 mmol/L -5-5 L (test code = GLENN) VENOUS BLOOD GAS 79 % 70-75 H O2 SAT (test code = O2SATV) TOTAL CO2 CONTENT 10.0 mmol/L 22-30 LL (test code = TCO2) HEMOGLOBIN POC 12.2 g/dL 12-17 N (test code = HBP) HEMATOCRIT POC 36.0 % 38-51 L (test code = HCTP) SODIUM POC (test 128 mmol/L 138-146 L code = NAP) POTASSIUM POC 5.3 mmol/L 3.5-4.9 H (test code = KP) GLUCOSE POC (test > 625 mg/dL 70-105 HH CRITICAL R ESULT - code = GLUP) TESTING PERFORM ED BY PRIMARY CAREGIVERCRITIC AL RESULT - TESTING PERFO RMED BY PRIMARY CAREGIV ER [id number] 10:17:00 Test Item Value Reference Range Interpretation Comments GLUBED (test > 600 mg/dL 70-105 HH CRITICAL RESULT - TESTING code = GLUBED) PERFORMED BY PRIMARY CAREGIVERIntrav enous administration of N-acetylcystein e which resultsin blood concentrations >5 mg/dL will cause overestim ationof blood glucose results . Do not use during intraven ousinfusion of N'acetylcyst eine. [id number] 11:48:00 Test Item Value Reference Range Interpretation Comments GLUBED (test 294 mg/dL 70-105 H Intravenous adm inistration code = GLUBED) of N-acetylcy steine which resultsin blood concentrations >5 mg/dL will cause overestim ationof blood glucose results . Do not use during intraven ousinfusion of N'acetylcyst eine. [id number] 07:58:00 Test Item Value Reference Range Interpretation Comments GLUBED (test 231 mg/dL 70-105 H Intravenous adm inistration code = GLUBED) of N-acetylcy steine which resultsin blood concentrations >5 mg/dL will cause overestim ationof blood glucose results . Do not use during intraven ousinfusion of N'acetylcyst eine. BASIC METABOLIC [id number] 03:27:00 Test Item Value Reference Range Interpretation Comments SODIUM (test code = 137 mmol/L 135-145 N NA) POTASSIUM (test code 4.4 mmol/L 3.5-5.1 N = K) CHLORIDE (test code = 104 mmol/L 98-107 N CL) CARBON DIOXIDE (test 26 mmol/L 21-32 N code = CO2) ANION GAP (test code 11.4 2.0-16.0 N = GAP) GLUCOSE (test code = 195 mg/dL 65-99 H GLU) BLOOD UREA NITROGEN 24 mg/dL 4-23 H (test code = BUN) GLOMERULAR FILTRATION 48 ml/min >60 L The es timated RATE (test code = glomerular filtration GFR) rate is compute d usingpatient ra ce, age (>18), sex, and serum creatinine. If anyof the needed data elements are mi ssing the Laboratory cannot compute an raysa mation of the glomerul ar filtration rate . CREATININE (test code 1.4 mg/dL 0.6-1.5 N = CREAT) BUN/CREATININE RATIO 17.1 12.0-20.0 N (test code = BUN/CREA) CALCIUM (test code = 7.9 mg/dL 8.5-10.1 L CA) Spec Comments: While on insulin dripComments to Phleb: Increase to Q 1hour if less than [id number] 03:27:00 Test Item Value Reference Range Interpretation Comments PHOSPHOROUS (test code = PHOS) 2.8 mg/dL 2.5-4.9 N Spec Comments: While on insulin dripComments to Phleb: Increase to Q 1hour if less than 3.3BASIC METABOLIC [id number] 23:19:00 Test Item Value Reference Range Interpretation Comments SODIUM (test code = 137 mmol/L 135-145 N NA) POTASSIUM (test code 4.4 mmol/L 3.5-5.1 N = K) CHLORIDE (test code = 104 mmol/L 98-107 N CL) CARBON DIOXIDE (test 24 mmol/L 21-32 N code = CO2) ANION GAP (test code 13.4 2.0-16.0 N = GAP) GLUCOSE (test code = 183 mg/dL 65-99 H GLU) BLOOD UREA NITROGEN 23 mg/dL 4-23 N (test code = BUN) GLOMERULAR FILTRATION 48 ml/min >60 L The es timated RATE (test code = glomerular filtration GFR) rate is compute d usingpatient ra ce, age (>18), sex, and serum creatinine. If anyof the needed data elements are mi ssing the Laboratory cannot compute an raysa mation of the glomerul ar filtration rate . CREATININE (test code 1.4 mg/dL 0.6-1.5 N = CREAT) BUN/CREATININE RATIO 16.4 12.0-20.0 N (test code = BUN/CREA) CALCIUM (test code = 8.0 mg/dL 8.5-10.1 L CA) Spec Comments: While on insulin dripComments to Phleb: Increase to Q 1hour if less than [id number] 23:19:00 Test Item Value Reference Range Interpretation Comments PHOSPHOROUS (test code = PHOS) 2.7 mg/dL 2.5-4.9 N Spec Comments: While on insulin dripComments to Phleb: Increase to Q 1hour if less than [id number] 19:55:00 Test Item Value Reference Range Interpretation Comments GLUBED (test 213 mg/dL 70-105 H Intravenous adm inistration code = GLUBED) of N-acetylcy steine which resultsin blood concentrations >5 mg/dL will cause overestim ationof blood glucose results . Do not use during intraven ousinfusion of N'acetylcyst eine. LACTIC [id number] 17:57:00 Test Item Value Reference Range Interpretation Comments LACTIC ACID (test code = LACT) 1.2 mmol/L 0.4-2.0 N BASIC METABOLIC [id number] 17:56:00 Test Item Value Reference Range Interpretation Comments SODIUM (test code = 136 mmol/L 135-145 N NA) POTASSIUM (test code 4.2 mmol/L 3.5-5.1 N = K) CHLORIDE (test code = 102 mmol/L 98-107 N CL) CARBON DIOXIDE (test 26 mmol/L 21-32 N code = CO2) ANION GAP (test code 12.2 2.0-16.0 N = GAP) GLUCOSE (test code = 128 mg/dL 65-99 H GLU) BLOOD UREA NITROGEN 20 mg/dL 4-23 N (test code = BUN) GLOMERULAR FILTRATION 52 ml/min >60 L The es timated RATE (test code = glomerular filtration GFR) rate is compute d usingpatient ra ce, age (>18), sex, and serum creatinine. If anyof the needed data elements are mi ssing the Laboratory cannot compute an raysa mation of the glomerul ar filtration rate . CREATININE (test code 1.3 mg/dL 0.6-1.5 N = CREAT) BUN/CREATININE RATIO 15.4 12.0-20.0 N (test code = BUN/CREA) CALCIUM (test code = 8.5 mg/dL 8.5-10.1 N CA) Spec Comments: While on insulin dripComments to Phleb: Increase to Q 1hour if less than 3.3DUPLICATEORDER,TEST DONE, REFER SAMPLE [id number] 17:56:00 Test Item Value Reference Range Interpretation Comments PHOSPHOROUS (test code = PHOS) 2.6 mg/dL 2.5-4.9 N Spec Comments: While on insulin dripComments to Phleb: Increase to Q 1hour if less than 3.3DUPLICATEORDER,TEST DONE, REFER SAMPLE [id number] 17:54:00 Test Item Value Reference Range Interpretation Comments POTASSIUM (test code = K) 4.2 mmol/L 3.5-5.1 N Spec Comments: While on insulin dripComments to Phleb: Increase to Q 1hour if less than [id number] 17:20:00 Test Item Value Reference Range Interpretation Comments GLUBED (test 129 mg/dL 70-105 H Intravenous adm inistration code = GLUBED) of N-acetylcy steine which resultsin blood concentrations >5 mg/dL will cause overestim ationof blood glucose results . Do not use during intraven ousinfusion of N'acetylcyst eine. BASIC METABOLIC [id number] 15:17:00 Test Item Value Reference Range Interpretation Comments SODIUM (test code = 136 mmol/L 135-145 N NA) POTASSIUM (test code 4.8 mmol/L 3.5-5.1 N = K) CHLORIDE (test code = 104 mmol/L 98-107 N CL) CARBON DIOXIDE (test 26 mmol/L 21-32 N code = CO2) ANION GAP (test code 10.8 2.0-16.0 N = GAP) GLUCOSE (test code = 121 mg/dL 65-99 H GLU) BLOOD UREA NITROGEN 22 mg/dL 4-23 N (test code = BUN) GLOMERULAR FILTRATION 52 ml/min >60 L The es timated RATE (test code = glomerular filtration GFR) rate is compute d usingpatient ra ce, age (>18), sex, and serum creatinine. If anyof the needed data elements are mi ssing the Laboratory cannot compute an raysa mation of the glomerul ar filtration rate . CREATININE (test code 1.3 mg/dL 0.6-1.5 N = CREAT) BUN/CREATININE RATIO 16.9 12.0-20.0 N (test code = BUN/CREA) CALCIUM (test code = 7.9 mg/dL 8.5-10.1 L CA) [id number] 15:17:00 Test Item Value Reference Range Interpretation Comments PHOSPHOROUS (test code = PHOS) 2.5 mg/dL 2.5-4.9 N [id number] 15:17:00 Test Item Value Reference Range Interpretation Comments MAGNESIUM (test code = MAG) 1.9 mg/dL 1.8-2.4 N [id number] 11:16:00 Test Item Value Reference Range Interpretation Comments GLUBED (test 114 mg/dL 70-105 H Intravenous adm inistration code = GLUBED) of N-acetylcy steine which resultsin blood concentrations >5 mg/dL will cause overestim ationof blood glucose results . Do not use during intraven ousinfusion of N'acetylcyst eine. [id number] 09:05:00 Test Item Value Reference Range Interpretation Comments GLUBED (test 190 mg/dL 70-105 H Intravenous adm inistration code = GLUBED) of N-acetylcy steine which resultsin blood concentrations >5 mg/dL will cause overestim ationof blood glucose results . Do not use during intraven ousinfusion of N'acetylcyst eine. BASIC METABOLIC [id number] 08:42:00 Test Item Value Reference Range Interpretation Comments SODIUM (test code = 138 mmol/L 135-145 N NA) POTASSIUM (test code 4.0 mmol/L 3.5-5.1 N = K) CHLORIDE (test code = 105 mmol/L 98-107 N CL) CARBON DIOXIDE (test 24 mmol/L 21-32 N code = CO2) ANION GAP (test code 13.0 2.0-16.0 = GAP) GLUCOSE (test code = 232 mg/dL 65-99 H GLU) BLOOD UREA NITROGEN 26 mg/dL 4-23 H (test code = BUN) GLOMERULAR FILTRATION 44 ml/min >60 L The es timated RATE (test code = glomerular filtration GFR) rate is compute d usingpatient ra ce, age (>18), sex, and serum creatinine. If anyof the needed data elements are mi ssing the Laboratory cannot compute an raysa mation of the glomerul ar filtration rate . CREATININE (test code 1.5 mg/dL 0.6-1.5 N = CREAT) BUN/CREATININE RATIO 17.3 12.0-20.0 N (test code = BUN/CREA) CALCIUM (test code = 8.1 mg/dL 8.5-10.1 L CA) [id number] 08:42:00 Test Item Value Reference Range Interpretation Comments PHOSPHOROUS (test code = PHOS) 2.5 mg/dL 2.5-4.9 N [id number] 08:42:00 Test Item Value Reference Range Interpretation Comments MAGNESIUM (test code = MAG) 1.7 mg/dL 1.8-2.4 L [id number] 08:08:00 Test Item Value Reference Range Interpretation Comments GLUBED (test 227 mg/dL 70-105 H Intravenous adm inistration code = GLUBED) of N-acetylcy steine which resultsin blood concentrations >5 mg/dL will cause overestim ationof blood glucose results . Do not use during intraven ousinfusion of N'acetylcyst eine. [id number] 07:19:00 Test Item Value Reference Range Interpretation Comments GLUBED (test 226 mg/dL 70-105 H Intravenous adm inistration code = GLUBED) of N-acetylcy steine which resultsin blood concentrations >5 mg/dL will cause overestim ationof blood glucose results . Do not use during intraven ousinfusion of N'acetylcyst eine. [id number] 06:14:00 Test Item Value Reference Range Interpretation Comments GLUBED (test 188 mg/dL 70-105 H Intravenous adm inistration code = GLUBED) of N-acetylcy steine which resultsin blood concentrations >5 mg/dL will cause overestim ationof blood glucose results . Do not use during intraven ousinfusion of N'acetylcyst eine. [id number] 06:10:00 Test Item Value Reference Range Interpretation Comments GLUBED (test 257 mg/dL 70-105 H Intravenous adm inistration code = GLUBED) of N-acetylcy steine which resultsin blood concentrations >5 mg/dL will cause overestim ationof blood glucose results . Do not use during intraven ousinfusion of N'acetylcyst eine. LACTIC [id number] 05:25:00 Test Item Value Reference Range Interpretation Comments LACTIC ACID (test 2.2 mmol/L 0.4-2.0 H Elevated L actate code = LACT) reported to the following Caregiver:Full Name/Title: MALENA ZACARIAS FARAZ,RNby NCLAB.SS1, on 0 10/02/21, @ 0543 BASIC METABOLIC [id number] 04:55:00 Test Item Value Reference Range Interpretation Comments SODIUM (test code = 138 mmol/L 135-145 N NA) POTASSIUM (test code 3.8 mmol/L 3.5-5.1 N = K) CHLORIDE (test code = 104 mmol/L 98-107 N CL) CARBON DIOXIDE (test 18 mmol/L 21-32 L code = CO2) ANION GAP (test code 19.8 2.0-16.0 H = GAP) GLUCOSE (test code = 309 mg/dL 65-99 H GLU) BLOOD UREA NITROGEN 29 mg/dL 4-23 H (test code = BUN) GLOMERULAR FILTRATION 41 ml/min >60 L The es timated RATE (test code = glomerular filtration GFR) rate is compute d usingpatient ra ce, age (>18), sex, and serum creatinine. If anyof the needed data elements are mi ssing the Laboratory cannot compute an raysa mation of the glomerul ar filtration rate . CREATININE (test code 1.6 mg/dL 0.6-1.5 H = CREAT) BUN/CREATININE RATIO 18.1 12.0-20.0 N (test code = BUN/CREA) CALCIUM (test code = 8.0 mg/dL 8.5-10.1 L CA) Spec Comments: While on insulin dripComments to Phleb: Increase to Q 1hour if less than [id number] 04:55:00 Test Item Value Reference Range Interpretation Comments PHOSPHOROUS (test code = PHOS) 4.1 mg/dL 2.5-4.9 N Spec Comments: While on insulin dripComments to Phleb: Increase to Q 1hour if less than 3.3VENOUS BLOOD [id number] 04:50:00 Test Item Value Reference Range Interpretation Comments VENOUS BLOOD GAS PH 7.25 pH 7.32-7.42 L (test code = PHV) VENOUS BLOOD GAS PCO2 40 mmHg 41-51 L (test code = PCO2V) VENOUS BLOOD GAS PO2 36 mmHg 25-40 N (test code = PO2V) VBG HCO3 (test code = 17 mmol/L 24-25 L HCO3V) VBG BASE EXCESS (test -10 mmol/L -5-5 L code = GLENN) VENOUS BLOOD GAS O2 70 % 70-75 N SAT (test code = O2SATV) VENOUS BLOOD GAS TYPE Venous Notif ied: ROLAND by (test code = TYPEV) EC on 21/10/03 at 04:50:28 VENOUS BLOOD GAS FIO2 21.0 0.0-1000.0 N (test code = FIO2V) VBG VENT MODE (test Room Air code = MODEV) [id number] 04:00:00 Test Item Value Reference Range Interpretation Comments GLUBED (test 286 mg/dL 70-105 H Intravenous adm inistration code = GLUBED) of N-acetylcy steine which resultsin blood concentrations >5 mg/dL will cause overestim ationof blood glucose results . Do not use during intraven ousinfusion of N'acetylcyst eine. [id number] 03:05:00 Test Item Value Reference Range Interpretation Comments GLUBED (test 323 mg/dL 70-105 H Intravenous adm inistration code = GLUBED) of N-acetylcy steine which resultsin blood concentrations >5 mg/dL will cause overestim ationof blood glucose results . Do not use during intraven ousinfusion of N'acetylcyst eine. UA RFLX MICR CULT IF [id number] 02:14:00 Test Item Value Reference Range Interpretation Comments UA COLOR (test code = COLU) YELLOW YELLOW UA APPEARANCE (test code = CLEAR CLEAR APPU) UA GLUCOSE DIPSTICK (test code 3+ NEGATIVE A = DGLUU) UA BILIRUBIN DIPSTICK (test NEGATIVE NEGATIVE code = BILU) UA KETONE DIPSTICK (test code 2+ NEGATIVE A = KETU) UA SPECIFIC GRAVITY (test code 1.016 1.005-1.025 N = SGU) UA BLOOD DIPSTICK (test code = 1+ NEGATIVE A EVELIN) UA PH DIPSTICK (test code = 5.0 5.0-8.0 KALEY) UA PROTEIN DIPSTICK (test code NEGATIVE NEGATIVE = PROU) UA UROBILINOGEN DIPSTICK (test NEGATIVE EU/dL 0.1-0.2 code = URO) UA NITRITE DIPSTICK (test code NEGATIVE NEGATIVE = EDMUND) UA LEUKOCYTE ESTERASE DIPSTICK NEGATIVE NEGATIVE (test code = LEUU) UA MICROSCOPIC NEEDED? (test YES NO A code = UAMICRO) UA WBC (test code = WBCU) 0-2 /hpf 0-3 UA RBC (test code = RBCU) 0-2 /hpf 0-3 UA BACTERIA (test code = BACU) NONE SEEN /HPF NEGATIVE UA SQUAMOUS CELLS (test code = None seen /HPF FEW SQU) Indication for culture: Suprapubic PainSpecimen Description: CLEAN CATCHGLUBED 2021-10-02 02:08:00 Test Item Value Reference Range Interpretation Comments GLUBED (test 351 mg/dL 70-105 H Intravenous adm inistration code = GLUBED) of N-acetylcy steine which resultsin blood concentrations >5 mg/dL will cause overestim ationof blood glucose results . Do not use during intraven ousinfusion of N'acetylcyst eine. [id number] 00:58:00 Test Item Value Reference Range Interpretation Comments GLUBED (test 438 mg/dL 70-105 HH CRITICAL RESULT - TESTING code = GLUBED) PERFORMED BY PRIMARY CAREGIVERIntrav enous administration of N-acetylcystein e which resultsin blood concentrations >5 mg/dL will cause overestim ationof blood glucose results . Do not use during intraven ousinfusion of N'acetylcystein e. B-TYPE NATRIURETIC [id number] 00:26:00 Test Item Value Reference Range Interpretation Comments B-TYPE NATRIURETIC PEPTIDE (test 68 pg/mL 0-100 N code = BNP) [id number] 00:16:00 Test Item Value Reference Range Interpretation Comments GLUBED (test 459 mg/dL 70-105 HH CRITICAL RESULT - TESTING code = GLUBED) PERFORMED BY PRIMARY CAREGIVERIntrav enous administration of N-acetylcystein e which resultsin blood concentrations >5 mg/dL will cause overestim ationof blood glucose results . Do not use during intraven ousinfusion of N'acetylcystein e. [id number] 00:08:00 Test Item Value Reference Range Interpretation Comments GLUBED (test 271 mg/dL 70-105 H Intravenous adm inistration code = GLUBED) of N-acetylcy steine which resultsin blood concentrations >5 mg/dL will cause overestim ationof blood glucose results . Do not use during intraven ousinfusion of N'acetylcyst eine. VENOUS BLOOD [id number] 23:43:00 Test Item Value Reference Range Interpretation Comments VENOUS BLOOD GAS PH 7.02 pH 7.32-7.42 CRITICAL RESULT - (test code = PHV) TESTING PE RFORMED BY PRIMARY CAREGIV ER VENOUS BLOOD GAS 41 mmHg 41-51 N PCO2 (test code = PCO2V) VENOUS BLOOD GAS PO2 44 mmHg 25-40 H (test code = PO2V) VBG HCO3 (test code 10 mmol/L 24-25 L = HCO3V) VBG BASE EXCESS -20 mmol/L -5-5 L (test code = GLENN) VENOUS BLOOD GAS O2 67 % 70-75 L SAT (test code = O2SATV) VENOUS BLOOD GAS Venous Notified: ROLAND by TYPE (test code = EC on 2021 at TYPEV) 23:42:31 VENOUS BLOOD GAS 21.0 0.0-1000.0 N FIO2 (test code = FIO2V) VBG VENT MODE (test Room Air code = MODEV) BASIC METABOLIC [id number] 23:36:00 Test Item Value Reference Range Interpretation Comments SODIUM (test code = 133 mmol/L 135-145 L NA) POTASSIUM (test code 4.3 mmol/L 3.5-5.1 N = K) CHLORIDE (test code = 97 mmol/L 98-107 L CL) CARBON DIOXIDE (test 13 mmol/L 21-32 L code = CO2) ANION GAP (test code 27.3 2.0-16.0 H = GAP) GLUCOSE (test code = 525 mg/dL 65-99 HH Critica l Value GLU) reported toFirs t Name:SHAWNEE AVILEZ Last Name:BENJAMIN JUSTICE READ BACK AND VERIFIEDby CARRI AMEZQUITA, on 10/01/21, @ 5765. BLOOD UREA NITROGEN 33 mg/dL 4-23 H (test code = BUN) GLOMERULAR FILTRATION 38 ml/min >60 L The es timated RATE (test code = glomerular filtration GFR) rate is compute d usingpatient ra ce, age (>18), sex, and serum creatinine. If anyof the needed data elements are mi ssing the Laboratory cannot compute an raysa mation of the glomerul ar filtration rate . CREATININE (test code 1.7 mg/dL 0.6-1.5 H = CREAT) BUN/CREATININE RATIO 19.4 12.0-20.0 N (test code = BUN/CREA) CALCIUM (test code = 8.9 mg/dL 8.5-10.1 N CA) [id number] 23:36:00 Test Item Value Reference Range Interpretation Comments PHOSPHOROUS (test code = PHOS) 5.6 mg/dL 2.5-4.9 H CREATINE KINASE (CK)2021-10-01 23:36:00 Test Item Value Reference Range Interpretation Comments CREATINE KINASE (CK) (test code = CK) 235 U/L 26-308 N [id number] 23:36:00 Test Item Value Reference Range Interpretation Comments AMYLASE (test code = MINOO) 54 U/L 25-115 N OSMOLALITY [id number] 23:36:00 Test Item Value Reference Range Interpretation Comments OSMOLALITY SERUM (test code = 326 mOsm/kg 278-305 H OSMO) ACETONE [id number] 23:36:00 Test Item Value Reference Range Interpretation Comments ACETONE QUAL (test code = ACETNQL) MODERATE NEGATIVE A HGBA1C - GLYCOSYLATED [id number] 23:36:00 Test Item Value Reference Range Interpretation Comments GLYCOSYLATED > 14.0 % 4.5-5.9 H The [place] [employer] HEMOGLOBIN (HA1C) Associatio n recommends a (test code = GLYHGB) therape uticrange of <7.0% Hemoglobi n A1c for patients with diabetesmellitu s (Type 2 diabetes). LACTIC [id number] 23:34:00 Test Item Value Reference Range Interpretation Comments LACTIC ACID (test 3.5 mmol/L 0.4-2.0 H Elevated L actate code = LACT) reported to the following Caregiver:Full Name/Title: MALENA AVILEZ\\[facility] on 10/01/21, @ 5842 PROTHROMBIN [id number] 23:28:00 Test Item Value Reference Range Interpretation Comments PROTHROMBIN TIME 10.6 SECONDS 9.4-12.5 N PATIENT (test code = PTP) INTERNATIONAL 1.0 RATIO 0.8-1.1 N THE INR IS USE FUL ONLY NORMAL RATIO (test FOR MONIT ORING code = INR) ANTICOAGULANT THERAPY.IT MAY BE UNRELIABLE IN T HE INITIAL PHASE O F ANTICOAGULATION AND IN UNSTABLE PATIEN TS. 2.0-3.0 is the recommended INR for the following:Preve ntion of venous thrombol ism in high-risk patients;treatm ent of venous thrombos is and pulmonary embol ism aftera course o f heparin; preven tion of systemic emboli sm in avariety of con dition, including atria l fibrillation andprosthetic t issue heart valves.2. 5-3.5 is the recommended INR for the following:Prost hetic mechanical hear t values and/or recurren t systemicemboliz ation. THROMBOPLASTIN TIME [id number] 23:28:00 Test Item Value Reference Range Interpretation Comments THROMBOPLASTIN TIME PARTIAL 31.3 SECONDS 25.1-36.5 N (test code = PTT) CBC W/AUTO [id number] 23:24:00 Test Item Value Reference Range Interpretation Comments WHITE BLOOD CELL (test code = 7.7 10 3/uL 4.5-11.0 N WBC) RED BLOOD CELL (test code = 3.63 10 6/uL 3.50-5.50 N RBC) HEMOGLOBIN (test code = HGB) 11.1 g/dL 12.0-16.0 L HEMATOCRIT (test code = HCT) 34.7 % 37.0-55.0 L MEAN CELL VOLUME (test code = 96 fL 81-102 N MCV) MEAN CELL HGB (test code = 30.6 pg 26.0-34.0 N MCH) MEAN CELL HGB CONCENTRATION 32.0 g/dL 31.0-37.0 N (test code = MCHC) RED CELL DISTRIBUTION WIDTH 12.7 % 11.6-14.4 N (test code = RDW) PLATELET COUNT (test code = 193 10 3/uL 150-400 N PLT) MEAN PLATELET VOLUME (test 11.5 fL 9.0-12.6 N code = MPV) NEUTROPHIL % (test code = NT%) 84.9 % 33.0-76.0 H IMMATURE GRANULOCYTE % (test 1.2 % 0.0-1.0 H code = IG%) LYMPHOCYTE % (test code = LY%) 9.9 % 14.0-56.4 L MONOCYTE % (test code = MO%) 3.4 % 0.0-12.9 N EOSINOPHIL % (test code = EO%) 0.1 % 0.0-7.0 N BASOPHIL % (test code = BA%) 0.5 % 0-2.0 N NUCLEATED RBC % (test code = 0.0 % 0-0.2 N NRBC%) NEUTROPHIL # (test code = NT#) 6.50 10 3/uL 1.5-7.0 N IMMATURE GRANULOCYTE # (test 0.090 x10 3/uL 0.000-0.100 N code = IG#) LYMPHOCYTE # (test code = LY#) 0.76 10 3/uL 1.50-4.00 L MONOCYTE # (test code = MO#) 0.26 10 3/uL 0.20-0.80 N EOSINOPHIL # (test code = EO#) 0.01 10 3/uL 0.0-0.5 N BASOPHIL # (test code = BA#) 0.04 10 3/uL 0.0-0.1 N NUCLEATED RBC # (test code = 0.000 10 3/uL 0.000-0.012 N NRBC#) LACTIC [id number] 21:47:00 Test Item Value Reference Range Interpretation Comments LACTIC ACID (test 2.3 mmol/L 0.4-2.0 H Elevated L actate code = LACT) reported to the following Caregiver:Full Name/Title: KRYSTIAN MATSON\\Brandie NCLAB. VINNY, on 10/01/21, @ 214 7 BASIC METABOLIC [id number] 21:47:00 Test Item Value Reference Range Interpretation Comments SODIUM (test code = 129 mmol/L 135-145 L NA) POTASSIUM (test code 5.5 mmol/L 3.5-5.1 H HEMOLYZ ED-MODERATE = K) CHLORIDE (test code = 96 mmol/L 98-107 L CL) CARBON DIOXIDE (test 13 mmol/L 21-32 L code = CO2) ANION GAP (test code 25.5 2.0-16.0 H = GAP) GLUCOSE (test code = 510 mg/dL 65-99 HH Critica l Value GLU) reported toFirs t Name:RAJNI MATSON Last Name:RNRESULTS READ BACK AND VERIFI Bina ORTIZAB.VINNY, on , @ 2147. BLOOD UREA NITROGEN 31 mg/dL 4-23 H (test code = BUN) GLOMERULAR FILTRATION 36 ml/min >60 L The es timated RATE (test code = glomerular filtration GFR) rate is compute d usingpatient ra ce, age (>18), sex, and serum creatinine. If anyof the needed data elements are mi ssing the Laboratory cannot compute an raysa mation of the glomerul ar filtration rate . CREATININE (test code 1.8 mg/dL 0.6-1.5 H = CREAT) BUN/CREATININE RATIO 17.2 12.0-20.0 N (test code = BUN/CREA) CALCIUM (test code = 9.1 mg/dL 8.5-10.1 N CA) LIVER FUNCTION [id number] 21:47:00 Test Item Value Reference Range Interpretation Comments TOTAL PROTEIN 8.1 g/dL 6.4-8.2 N (test code = PROT) ALBUMIN (test code 4.2 g/dL 3.4-5.0 N = ALB) GLOBULIN (test 3.9 g/dL 2.3-3.5 H code = GLOB) BILIRUBIN TOTAL 1.1 mg/dL 0.2-1.2 N Use of this assay is not (test code = BILT) recommend ed for patients undergoingtreat ment with Eltrombopag due to the potential for falselyelevated results. BILIRUBIN DIRECT 0.2 mg/dL 0.0-0.3 N (test code = BILD) BILIRUBIN INDIRECT 0.9 mg/dL 0.0-0.8 H (test code = BILIND) SGOT/AST (test 51 U/L 15-37 H code = AST) SGPT/ALT (test 29 U/L 6-50 N code = ALT) ALKALINE 83 U/L 45-117 N PHOSPHATASE (test code = ALKP) [id number] 21:47:00 Test Item Value Reference Range Interpretation Comments LIPASE (test code = LIP) 86 U/L 73-393 N [id number] 21:47:00 Test Item Value Reference Range Interpretation Comments MAGNESIUM (test code = MAG) 1.9 mg/dL 1.8-2.4 N TROP-I HIGH [id number] 21:47:00 Test Item Value Reference Range Interpretation Comments TROP-I HIGH SENSITIVITY 7 pg/mL 0-53 N CAUT ION: Units of the (test code = TROPIHS) curren t test methodology (pg /mL) differ from the prior test methodolog y (ng/mL) by a fa ctor of 1000. COVID 19 INHOUSE [id number] 21:44:00 Test Item Value Reference Range Interpretation Comments COVID 19 INHOUSE NEGATIVE Negative Negative re sults do not AG (test code = preclude 201 9-nCoV infection [id number]) andshould not b e used as the sole basis for treatment or otherpatient ma nagement decisions. Nega tive results must becombined with clinical observ ations, patient history , andepidemiologi abhinav information. - XR CHEST 1 [id number] 21:17:00 [facility]: D[facility]LE [facility]INK[facility] : 1950 Sex: FPatient Name: DANIELE HINKLE Unit No: [id number] EXAMS: CPT CODE: [id number] XR CHEST 1 V 61474 C3 TIME OF STUDY: 10/01/2021 7:46 PM REASON FOR EXAM: Chest Pain COMPARISON: April 06, 2021 FINDINGS: AP view of the chest was obtained. Lungs: Normal lung volume. No mass, or consolidation. Normalpulmonary vascularity. Pleura: No pleural effusion or pneumothorax. Heart and Mediastinum: Normal ca rdiomediastinal silhouette and great vessels. Bones: Normal regional skeletal structures. IMPRESSION: 1. No acute cardiopulmonary process. at 7 Reported and signed by: Hector Roach MD CC: GENERIC FOR [facility] EDDOC; Jameel Viera MD Technologist: Papa Chaudhari Time: DAP (Gy m2): Air Kerma (mGy): Trscr Dt/Tm: 10/01/2021 (2116) by:[email or web address] Electronic Signature Date/Time: 10/01/2021 (2116)Orig Print D/T: S: 10/01/2021 (2119) Name: DANIELE HINKLE [facility] [place] Phys: [place] [address] : 1950 Age: 71 Sex: [place] [id number] Loc: NC.ERS Exam Date: 10/01/2021 Status: REG ER PH: FAX: PAGE 1 Signed [id number] 21:07:00 Test Item Value Reference Range Interpretation Comments GLUBED (test 502 mg/dL 70-105 HH CRITICAL RESULT - TESTING code = GLUBED) PERFORMED BY PRIMARY CAREGIVERIntrav enous administration of N-acetylcystein e which resultsin blood concentrations >5 mg/dL will cause overestim ationof blood glucose results . Do not use during intraven ousinfusion of N'acetylcystein e. CBC W/AUTO [id number] 21:06:00 Test Item Value Reference Range Interpretation Comments WHITE BLOOD CELL (test code = 5.2 10 3/uL 4.5-11.0 N WBC) RED BLOOD CELL (test code = 3.38 10 6/uL 3.50-5.50 L RBC) HEMOGLOBIN (test code = HGB) 10.3 g/dL 12.0-16.0 L HEMATOCRIT (test code = HCT) 31.9 % 37.0-55.0 L MEAN CELL VOLUME (test code = 94 fL 81-102 N MCV) MEAN CELL HGB (test code = 30.5 pg 26.0-34.0 N MCH) MEAN CELL HGB CONCENTRATION 32.3 g/dL 31.0-37.0 N (test code = MCHC) RED CELL DISTRIBUTION WIDTH 12.8 % 11.6-14.4 N (test code = RDW) PLATELET COUNT (test code = 180 10 3/uL 150-400 N PLT) MEAN PLATELET VOLUME (test 12.0 fL 9.0-12.6 N code = MPV) NEUTROPHIL % (test code = NT%) 69.6 % 33.0-76.0 N IMMATURE GRANULOCYTE % (test 1.0 % 0.0-1.0 N code = IG%) LYMPHOCYTE % (test code = LY%) 21.2 % 14.0-56.4 N MONOCYTE % (test code = MO%) 6.6 % 0.0-12.9 N EOSINOPHIL % (test code = EO%) 0.6 % 0.0-7.0 N BASOPHIL % (test code = BA%) 1.0 % 0-2.0 N NUCLEATED RBC % (test code = 0.0 % 0-0.2 N NRBC%) NEUTROPHIL # (test code = NT#) 3.59 10 3/uL 1.5-7.0 N IMMATURE GRANULOCYTE # (test 0.050 x10 3/uL 0.000-0.100 N code = IG#) LYMPHOCYTE # (test code = LY#) 1.09 10 3/uL 1.50-4.00 L MONOCYTE # (test code = MO#) 0.34 10 3/uL 0.20-0.80 N EOSINOPHIL # (test code = EO#) 0.03 10 3/uL 0.0-0.5 N BASOPHIL # (test code = BA#) 0.05 10 3/uL 0.0-0.1 N NUCLEATED RBC # (test code = 0.000 10 3/uL 0.000-0.012 N NRBC#) [id number] 15:16:00 Test Item Value Reference Range Interpretation Comments GLUBED (test 192 mg/dL 70-105 H Intravenous adm inistration code = GLUBED) of N-acetylcy steine which resultsin blood concentrations >5 mg/dL will cause overestim ationof blood glucose results . Do not use during intraven ousinfusion of N'acetylcyst eine. [id number] 11:16:00 Test Item Value Reference Range Interpretation Comments GLUBED (test 168 mg/dL 70-105 H Intravenous adm inistration code = GLUBED) of N-acetylcy steine which resultsin blood concentrations >5 mg/dL will cause overestim ationof blood glucose results . Do not use during intraven ousinfusion of N'acetylcyst eine. [id number] 07:52:00 Test Item Value Reference Range Interpretation Comments GLUBED (test 89 mg/dL 70-105 N Intravenous adm inistration of code = GLUBED) N-acetylcyste ine which resultsin blood concentrations >5 mg/dL will cause overestim ationof blood glucose results . Do not use during intraven ousinfusion of N'acetylcystein e. BASIC METABOLIC [id number] 05:36:00 Test Item Value Reference Range Interpretation Comments SODIUM (test code 136 mmol/L 135-145 N = NA) POTASSIUM (test 3.7 mmol/L 3.5-5.1 N code = K) CHLORIDE (test 105 mmol/L 98-107 N code = CL) CARBON DIOXIDE 24 mmol/L 21-32 N (test code = CO2) ANION GAP (test 10.7 2.0-16.0 N code = GAP) GLUCOSE (test code 135 mg/dL 65-99 H = GLU) BLOOD UREA 18 mg/dL 4-23 N NITROGEN (test code = BUN) GLOMERULAR >=60 max >60 The estimated FILTRATION RATE estimate ml/min glomerula r (test code = GFR) filtration rate is computed usingpatient ra ce, age (>18), sex, and serum creatinin e. If anyof the neede d data elements a re missing the Laboratory olivier ot compute an estimation of t he glomerular filtration rate . CREATININE (test 0.9 mg/dL 0.6-1.5 N code = CREAT) BUN/CREATININE 20.0 12.0-20.0 N RATIO (test code = BUN/CREA) CALCIUM (test code 8.3 mg/dL 8.5-10.1 L = CA) [id number] 05:36:00 Test Item Value Reference Range Interpretation Comments PHOSPHOROUS (test code = PHOS) 2.5 mg/dL 2.5-4.9 N [id number] 05:36:00 Test Item Value Reference Range Interpretation Comments MAGNESIUM (test code = MAG) 1.8 mg/dL 1.8-2.4 N CBC W/AUTO [id number] 05:34:00 Test Item Value Reference Range Interpretation Comments WHITE BLOOD CELL (test code = 3.1 10 3/uL 4.5-11.0 L WBC) RED BLOOD CELL (test code = 3.14 10 6/uL 3.50-5.50 L RBC) HEMOGLOBIN (test code = HGB) 9.6 g/dL 12.0-16.0 L HEMATOCRIT (test code = HCT) 27.9 % 37.0-55.0 L MEAN CELL VOLUME (test code = 89 fL 81-102 N MCV) MEAN CELL HGB (test code = 30.6 pg 26.0-34.0 N MCH) MEAN CELL HGB CONCENTRATION 34.4 g/dL 31.0-37.0 N (test code = MCHC) RED CELL DISTRIBUTION WIDTH 13.7 % 11.6-14.4 N (test code = RDW) PLATELET COUNT (test code = 184 10 3/uL 150-400 N PLT) MEAN PLATELET VOLUME (test 11.3 fL 9.0-12.6 N code = MPV) NEUTROPHIL % (test code = NT%) 50.0 % 33.0-76.0 N IMMATURE GRANULOCYTE % (test 0.3 % 0.0-1.0 N code = IG%) LYMPHOCYTE % (test code = LY%) 36.0 % 14.0-56.4 N MONOCYTE % (test code = MO%) 10.2 % 0.0-12.9 N EOSINOPHIL % (test code = EO%) 2.9 % 0.0-7.0 N BASOPHIL % (test code = BA%) 0.6 % 0-2.0 N NUCLEATED RBC % (test code = 0.0 % 0-0.2 N NRBC%) NEUTROPHIL # (test code = NT#) 1.57 10 3/uL 1.5-7.0 N IMMATURE GRANULOCYTE # (test 0.010 x10 3/uL 0.000-0.100 N code = IG#) LYMPHOCYTE # (test code = LY#) 1.13 10 3/uL 1.50-4.00 L MONOCYTE # (test code = MO#) 0.32 10 3/uL 0.20-0.80 N EOSINOPHIL # (test code = EO#) 0.09 10 3/uL 0.0-0.5 N BASOPHIL # (test code = BA#) 0.02 10 3/uL 0.0-0.1 N NUCLEATED RBC # (test code = 0.000 10 3/uL 0.000-0.012 N NRBC#) THROMBOPLASTIN TIME [id number] 05:28:00 Test Item Value Reference Range Interpretation Comments THROMBOPLASTIN TIME PARTIAL 21.3 SECONDS 25.1-36.5 L (test code = PTT) BASIC METABOLIC [id number] 23:02:00 Test Item Value Reference Range Interpretation Comments SODIUM (test code 134 mmol/L 135-145 L = NA) POTASSIUM (test 3.9 mmol/L 3.5-5.1 N code = K) CHLORIDE (test 104 mmol/L 98-107 N code = CL) CARBON DIOXIDE 24 mmol/L 21-32 N (test code = CO2) ANION GAP (test 9.9 2.0-16.0 N code = GAP) GLUCOSE (test code 211 mg/dL 65-99 H = GLU) BLOOD UREA 20 mg/dL 4-23 N NITROGEN (test code = BUN) GLOMERULAR >=60 max >60 The estimated FILTRATION RATE estimate ml/min glomerula r (test code = GFR) filtration rate is computed usingpatient ra ce, age (>18), sex, and serum creatinin e. If anyof the neede d data elements a re missing the Laboratory olivier ot compute an estimation of t he glomerular filtration rate . CREATININE (test 1.0 mg/dL 0.6-1.5 N code = CREAT) BUN/CREATININE 20.0 12.0-20.0 N RATIO (test code = BUN/CREA) CALCIUM (test code 8.4 mg/dL 8.5-10.1 L = CA) Spec Comments: While on insulin dripComments to Phleb: Increase to Q 1hour if less than [id number] 23:02:00 Test Item Value Reference Range Interpretation Comments PHOSPHOROUS (test code = PHOS) 2.5 mg/dL 2.5-4.9 N Spec Comments: While on insulin dripComments to Phleb: Increase to Q 1hour if less than 3.3THROMBOPLASTIN TIME [id number] 22:39:00 Test Item Value Reference Range Interpretation Comments THROMBOPLASTIN TIME PARTIAL 36.9 SECONDS 25.1-36.5 H (test code = PTT) [id number] 20:27:00 Test Item Value Reference Range Interpretation Comments GLUBED (test 209 mg/dL 70-105 H Intravenous adm inistration code = GLUBED) of N-acetylcy steine which resultsin blood concentrations >5 mg/dL will cause overestim ationof blood glucose results . Do not use during intraven ousinfusion of N'acetylcyst eine. [id number] 20:03:00 Test Item Value Reference Range Interpretation Comments POTASSIUM (test code = K) 3.9 mmol/L 3.5-5.1 N Spec Comments: While on insulin dripComments to Phleb: Increase to Q 1hour if less than [id number] 19:34:00 Test Item Value Reference Range Interpretation Comments GLUBED (test 206 mg/dL 70-105 H Intravenous adm inistration code = GLUBED) of N-acetylcy steine which resultsin blood concentrations >5 mg/dL will cause overestim ationof blood glucose results . Do not use during intraven ousinfusion of N'acetylcyst eine. [id number] 15:52:00 Test Item Value Reference Range Interpretation Comments GLUBED (test 279 mg/dL 70-105 H Intravenous adm inistration code = GLUBED) of N-acetylcy steine which resultsin blood concentrations >5 mg/dL will cause overestim ationof blood glucose results . Do not use during intraven ousinfusion of N'acetylcyst eine. BASIC METABOLIC [id number] 15:50:00 Test Item Value Reference Range Interpretation Comments SODIUM (test code = 134 mmol/L 135-145 L NA) POTASSIUM (test code 4.1 mmol/L 3.5-5.1 N = K) CHLORIDE (test code = 102 mmol/L 98-107 N CL) CARBON DIOXIDE (test 27 mmol/L 21-32 N code = CO2) ANION GAP (test code 9.1 2.0-16.0 N = GAP) GLUCOSE (test code = 289 mg/dL 65-99 H GLU) BLOOD UREA NITROGEN 23 mg/dL 4-23 N (test code = BUN) GLOMERULAR FILTRATION 57 ml/min >60 L The es timated RATE (test code = glomerular filtration GFR) rate is compute d usingpatient ra ce, age (>18), sex, and serum creatinine. If anyof the needed data elements are mi ssing the Laboratory cannot compute an raysa mation of the glomerul ar filtration rate . CREATININE (test code 1.2 mg/dL 0.6-1.5 N = CREAT) BUN/CREATININE RATIO 19.2 12.0-20.0 N (test code = BUN/CREA) CALCIUM (test code = 8.4 mg/dL 8.5-10.1 L CA) [id number] 15:50:00 Test Item Value Reference Range Interpretation Comments PHOSPHOROUS (test code = PHOS) 2.7 mg/dL 2.5-4.9 N TROP-I HIGH [id number] 15:50:00 Test Item Value Reference Range Interpretation Comments TROP-I HIGH 4905 pg/mL 0-53 HH Critical Value SENSITIVITY (test code repor sarah beth toFirst = TROPIHS) Name:AUGIE morales Name:NAI LTS READ BACK AND VERIFIEDby CARRI AMEZQUITA, on 08/08/21, @ 0996.CAUTION: U nits of the current test methodology (pg /mL) differ from the prior test methodolog y (ng/mL) by a fa ctor of 1000. THROMBOPLASTIN TIME [id number] 15:07:00 Test Item Value Reference Range Interpretation Comments THROMBOPLASTIN TIME PARTIAL 49.9 SECONDS 25.1-36.5 H (test code = PTT) TROP-I HIGH [id number] 14:17:00 Test Item Value Reference Range Interpretation Comments TROP-I HIGH 6983 pg/mL 0-53 HH Critical Value SENSITIVITY (test code repor sarah beth Coppola = TROPIHS) Name:ALEX Lan Name:BARONBRIE EDWARDSS READ BACK AND VERIFIEDby CARRI BRO, on 08/08/21, @ 8753.CAUTION: U nits of the current test methodology (pg /mL) differ from the prior test methodolog y (ng/mL) by a fa ctor of 1000. [id number] 13:53:00 Test Item Value Reference Range Interpretation Comments GLUBED (test 258 mg/dL 70-105 H Intravenous adm inistration code = GLUBED) of N-acetylcy steine which resultsin blood concentrations >5 mg/dL will cause overestim ationof blood glucose results . Do not use during intraven ousinfusion of N'acetylcyst eine. BASIC METABOLIC [id number] 13:23:00 Test Item Value Reference Range Interpretation Comments SODIUM (test code = 135 mmol/L 135-145 N NA) POTASSIUM (test code 4.1 mmol/L 3.5-5.1 N = K) CHLORIDE (test code = 104 mmol/L 98-107 N CL) CARBON DIOXIDE (test 25 mmol/L 21-32 N code = CO2) ANION GAP (test code 10.1 2.0-16.0 N = GAP) GLUCOSE (test code = 110 mg/dL 65-99 H GLU) BLOOD UREA NITROGEN 24 mg/dL 4-23 H (test code = BUN) GLOMERULAR FILTRATION 57 ml/min >60 L The es timated RATE (test code = glomerular filtration GFR) rate is compute d usingpatient ra ce, age (>18), sex, and serum creatinine. If anyof the needed data elements are mi ssing the Laboratory cannot compute an raysa mation of the glomerul ar filtration rate . CREATININE (test code 1.2 mg/dL 0.6-1.5 N = CREAT) BUN/CREATININE RATIO 20.0 12.0-20.0 N (test code = BUN/CREA) CALCIUM (test code = 9.2 mg/dL 8.5-10.1 N CA) Spec Comments: While on insulin dripComments to Phleb: Increase to Q 1hour if less than [id number] 13:23:00 Test Item Value Reference Range Interpretation Comments PHOSPHOROUS (test code = PHOS) 2.8 mg/dL 2.5-4.9 N Spec Comments: While on insulin dripComments to Phleb: Increase to Q 1hour if less than 3.3LACTIC [id number] 12:43:00 Test Item Value Reference Range Interpretation Comments LACTIC ACID (test code = LACT) 0.6 mmol/L 0.4-2.0 N [id number] 11:12:00 Test Item Value Reference Range Interpretation Comments GLUBED (test 80 mg/dL 70-105 N Intravenous adm inistration of code = GLUBED) N-acetylcyste ine which resultsin blood concentrations >5 mg/dL will cause overestim ationof blood glucose results . Do not use during intraven ousinfusion of N'acetylcystein e. B-TYPE NATRIURETIC [id number] 07:57:00 Test Item Value Reference Range Interpretation Comments B-TYPE NATRIURETIC PEPTIDE (test 159 pg/mL 0-100 H code = BNP) Spec Comments: lab add [id number] 07:42:00 Test Item Value Reference Range Interpretation Comments GLUBED (test 138 mg/dL 70-105 H Intravenous adm inistration code = GLUBED) of N-acetylcy steine which resultsin blood concentrations >5 mg/dL will cause overestim ationof blood glucose results . Do not use during intraven ousinfusion of N'acetylcyst eine. THROMBOPLASTIN TIME [id number] 07:01:00 Test Item Value Reference Range Interpretation Comments THROMBOPLASTIN TIME PARTIAL 26.4 SECONDS 25.1-36.5 N (test code = PTT) TROP-I HIGH [id number] 06:03:00 Test Item Value Reference Range Interpretation Comments TROP-I HIGH 7687 pg/mL 0-53 HH Critical Value SENSITIVITY (test code repor sarah beth toFirst = TROPIHS) Name: Last Name:TAMIA Tuttle READ BACK AND NIELS Curran [id number], on 08/08/21, @ 0603.CAUTION: U nits of the current test methodology (pg /mL) differ from the prior test methodolog y (ng/mL) by a fa ctor of 1000. [id number] 05:52:00 Test Item Value Reference Range Interpretation Comments POTASSIUM (test code = K) 3.7 mmol/L 3.5-5.1 N Spec Comments: While on insulin dripComments to Phleb: Increase to Q 1hour if less than [id number] 05:02:00 Test Item Value Reference Range Interpretation Comments GLUBED (test 113 mg/dL 70-105 H Intravenous adm inistration code = GLUBED) of N-acetylcy steine which resultsin blood concentrations >5 mg/dL will cause overestim ationof blood glucose results . Do not use during intraven ousinfusion of N'acetylcyst eine. [id number] 04:57:00 Test Item Value Reference Range Interpretation Comments GLUBED (test 192 mg/dL 70-105 H Intravenous adm inistration code = GLUBED) of N-acetylcy steine which resultsin blood concentrations >5 mg/dL will cause overestim ationof blood glucose results . Do not use during intraven ousinfusion of N'acetylcyst eine. BASIC METABOLIC [id number] 03:19:00 Test Item Value Reference Range Interpretation Comments SODIUM (test code = 136 mmol/L 135-145 N NA) POTASSIUM (test code 3.6 mmol/L 3.5-5.1 N = K) CHLORIDE (test code = 103 mmol/L 98-107 N CL) CARBON DIOXIDE (test 25 mmol/L 21-32 N code = CO2) ANION GAP (test code 11.6 2.0-16.0 N = GAP) GLUCOSE (test code = 213 mg/dL 65-99 H GLU) BLOOD UREA NITROGEN 24 mg/dL 4-23 H (test code = BUN) GLOMERULAR FILTRATION 52 ml/min >60 L The es timated RATE (test code = glomerular filtration GFR) rate is compute d usingpatient ra ce, age (>18), sex, and serum creatinine. If anyof the needed data elements are mi ssing the Laboratory cannot compute an raysa mation of the glomerul ar filtration rate . CREATININE (test code 1.3 mg/dL 0.6-1.5 N = CREAT) BUN/CREATININE RATIO 18.5 12.0-20.0 N (test code = BUN/CREA) CALCIUM (test code = 9.0 mg/dL 8.5-10.1 N CA) Spec Comments: While on insulin dripComments to Phleb: Increase to Q 1hour if less than 3.3LIPID PROFILE (CORONARY RISK)2021-08-08 03:19:00 Test Item Value Reference Range Interpretation Comments TRIGLYCERIDES (test 172 mg/dL 0-149 H Accordin g to the National code = TRIG) Institutes of [facility] ([facility]) and theNational Cholesterol Edu cation Program (NCEP), serumtriglyceri de levels between 150-199 mg/dL are consideredBorde rline High. CHOLESTEROL (test 324 mg/dL 0-200 H code = CHOL) CHOLESTEROL/HDL 4 1-6 N RATIO (test code = CHOLHDL) HDL CHOLESTEROL 76 mg/dL 40-60 H According to the National (test code = HDL) Institutes of Health ([facility]) and theNational Cholesterol Edu cation Program (NCEP), an HDLcholesterol >or= 60mg/dL counts as a "negative" risk factor;its presence remove s one risk factor from the total count. LIPOPROTEIN LDL 198 mg/dL 0-100 H (test code = LDLC) Spec Comments: While on insulin dripComments to Phleb: Increase to Q 1hour if less than [id number] 03:19:00 Test Item Value Reference Range Interpretation Comments PHOSPHOROUS (test code = PHOS) 2.9 mg/dL 2.5-4.9 N Spec Comments: While on insulin dripComments to Phleb: Increase to Q 1hour if less than [id number] 03:19:00 Test Item Value Reference Range Interpretation Comments MAGNESIUM (test code = MAG) 2.0 mg/dL 1.8-2.4 N Spec Comments: While on insulin dripComments to Phleb: Increase to Q 1hour if less than 3.3OSMOLALITY [id number] 03:19:00 Test Item Value Reference Range Interpretation Comments OSMOLALITY SERUM (test code = 307 mOsm/kg 278-305 H OSMO) Spec Comments: While on insulin dripComments to Phleb: Increase to Q 1hour if less than 3.3ACETONE [id number] 03:19:00 Test Item Value Reference Range Interpretation Comments ACETONE BLOOD (test code = ACETB) NEGATIVE NEGATIVE Spec Comments: While on insulin dripComments to Phleb: Increase to Q 1hour if less than 3.3CBC W/AUTO [id number] 02:56:00 Test Item Value Reference Range Interpretation Comments WHITE BLOOD CELL (test code = 6.5 10 3/uL 4.5-11.0 N WBC) RED BLOOD CELL (test code = 3.60 10 6/uL 3.50-5.50 N RBC) HEMOGLOBIN (test code = HGB) 11.0 g/dL 12.0-16.0 L HEMATOCRIT (test code = HCT) 32.1 % 37.0-55.0 L MEAN CELL VOLUME (test code = 89 fL 81-102 N MCV) MEAN CELL HGB (test code = 30.6 pg 26.0-34.0 N MCH) MEAN CELL HGB CONCENTRATION 34.3 g/dL 31.0-37.0 N (test code = MCHC) RED CELL DISTRIBUTION WIDTH 13.2 % 11.6-14.4 N (test code = RDW) PLATELET COUNT (test code = 260 10 3/uL 150-400 N PLT) MEAN PLATELET VOLUME (test 11.2 fL 9.0-12.6 N code = MPV) NEUTROPHIL % (test code = NT%) 59.2 % 33.0-76.0 N IMMATURE GRANULOCYTE % (test 0.5 % 0.0-1.0 N code = IG%) LYMPHOCYTE % (test code = LY%) 29.9 % 14.0-56.4 N MONOCYTE % (test code = MO%) 8.4 % 0.0-12.9 N EOSINOPHIL % (test code = EO%) 1.4 % 0.0-7.0 N BASOPHIL % (test code = BA%) 0.6 % 0-2.0 N NUCLEATED RBC % (test code = 0.0 % 0-0.2 N NRBC%) NEUTROPHIL # (test code = NT#) 3.87 10 3/uL 1.5-7.0 N IMMATURE GRANULOCYTE # (test 0.030 x10 3/uL 0.000-0.100 N code = IG#) LYMPHOCYTE # (test code = LY#) 1.95 10 3/uL 1.50-4.00 N MONOCYTE # (test code = MO#) 0.55 10 3/uL 0.20-0.80 N EOSINOPHIL # (test code = EO#) 0.09 10 3/uL 0.0-0.5 N BASOPHIL # (test code = BA#) 0.04 10 3/uL 0.0-0.1 N NUCLEATED RBC # (test code = 0.000 10 3/uL 0.000-0.012 N NRBC#) [id number] 01:24:00 Test Item Value Reference Range Interpretation Comments GLUBED (test 242 mg/dL 70-105 H Intravenous adm inistration code = GLUBED) of N-acetylcy steine which resultsin blood concentrations >5 mg/dL will cause overestim ationof blood glucose results . Do not use during intraven ousinfusion of N'acetylcyst eine. BASIC METABOLIC [id number] 01:09:00 Test Item Value Reference Range Interpretation Comments SODIUM (test code = 135 mmol/L 135-145 N NA) POTASSIUM (test code 4.0 mmol/L 3.5-5.1 N = K) CHLORIDE (test code = 101 mmol/L 98-107 N CL) CARBON DIOXIDE (test 27 mmol/L 21-32 N code = CO2) ANION GAP (test code 11.0 2.0-16.0 = GAP) GLUCOSE (test code = 294 mg/dL 65-99 H GLU) BLOOD UREA NITROGEN 26 mg/dL 4-23 H (test code = BUN) GLOMERULAR FILTRATION 41 ml/min >60 L The es timated RATE (test code = glomerular filtration GFR) rate is compute d usingpatient ra ce, age (>18), sex, and serum creatinine. If anyof the needed data elements are mi ssing the Laboratory cannot compute an raysa mation of the glomerul ar filtration rate . CREATININE (test code 1.6 mg/dL 0.6-1.5 H = CREAT) BUN/CREATININE RATIO 16.3 12.0-20.0 N (test code = BUN/CREA) CALCIUM (test code = 9.1 mg/dL 8.5-10.1 N CA) Spec Comments: While on insulin dripComments to Phleb: Increase to Q 1hour if less than [id number] 01:09:00 Test Item Value Reference Range Interpretation Comments PHOSPHOROUS (test code = PHOS) 3.4 mg/dL 2.5-4.9 N Spec Comments: While on insulin dripComments to Phleb: Increase to Q 1hour if less than [id number] 00:54:00 Test Item Value Reference Range Interpretation Comments PHOSPHOROUS (test code = PHOS) 4.7 mg/dL 2.5-4.9 N CREATINE KINASE (CK)2021-08-08 00:54:00 Test Item Value Reference Range Interpretation Comments CREATINE KINASE (CK) (test code = CK) 197 U/L 26-308 N [id number] 00:54:00 Test Item Value Reference Range Interpretation Comments AMYLASE (test code = MINOO) 39 U/L 25-115 N OSMOLALITY [id number] 00:54:00 Test Item Value Reference Range Interpretation Comments OSMOLALITY SERUM (test code = 319 mOsm/kg 278-305 H OSMO) [id number] 00:18:00 Test Item Value Reference Range Interpretation Comments GLUBED (test 288 mg/dL 70-105 H Intravenous adm inistration code = GLUBED) of N-acetylcy steine which resultsin blood concentrations >5 mg/dL will cause overestim ationof blood glucose results . Do not use during intraven ousinfusion of N'acetylcyst eine. [id number] 23:39:00 Test Item Value Reference Range Interpretation Comments GLUBED (test 298 mg/dL 70-105 H Intravenous adm inistration code = GLUBED) of N-acetylcy steine which resultsin blood concentrations >5 mg/dL will cause overestim ationof blood glucose results . Do not use during intraven ousinfusion of N'acetylcyst eine. HGBA1C - GLYCOSYLATED [id number] 23:03:00 Test Item Value Reference Range Interpretation Comments GLYCOSYLATED > 14.0 % 4.5-5.9 H [facility] [place] HEMOGLOBIN (HA1C) Associatio n recommends a (test code = GLYHGB) therape uticrange of <7.0% Hemoglobi n A1c for patients with diabetesmellitu s (Type 2 diabetes). [id number] 23:02:00 Test Item Value Reference Range Interpretation Comments GLUBED (test 327 mg/dL 70-105 H Intravenous adm inistration code = GLUBED) of N-acetylcy steine which resultsin blood concentrations >5 mg/dL will cause overestim ationof blood glucose results . Do not use during intraven ousinfusion of N'acetylcyst eine. [id number] 22:34:00 Test Item Value Reference Range Interpretation Comments GLUBED (test 360 mg/dL 70-105 H Intravenous adm inistration code = GLUBED) of N-acetylcy steine which resultsin blood concentrations >5 mg/dL will cause overestim ationof blood glucose results . Do not use during intraven ousinfusion of N'acetylcyst eine. [id number] 22:20:00 Test Item Value Reference Range Interpretation Comments GLUBED (test 392 mg/dL 70-105 H Intravenous adm inistration code = GLUBED) of N-acetylcy steine which resultsin blood concentrations >5 mg/dL will cause overestim ationof blood glucose results . Do not use during intraven ousinfusion of N'acetylcyst eine. OSMOLALITY [id number] 22:20:00 Test Item Value Reference Range Interpretation Comments OSMOLALITY SERUM (test code = 322 mOsm/kg 278-305 H OSMO) ARTERIAL BLOOD [id number] 21:39:00 Test Item Value Reference Range Interpretation Comments ARTERIAL BLOOD GAS PH (test code 7.292 7.35-7.45 L = PHA) ARTERIAL BLOOD GAS PCO2 (test 38.7 mmHg 35.0-45.0 N code = PCO2A) ARTERIAL BLOOD GAS PO2 (test code 95.4 mmHg 80.0-100.0 N = PO2A) BICARBONATE TOTAL HCO3 (test code 18.3 mmol/L 22.0-26.0 L = HCO3) BASE EXCESS (test code = ROSEANNE) -7.7 mmol/L 0.0-2.0 L ABG O2 SATURATION (test code = 97.2 % 94.0-98.0 N SATA) ABG TYPE (test code = TYPEA) Arterial ARTERIAL FIO2 (test code = FIO2A) 21.0 % ABG VENT MODE (test code = MODEA) Room Air ALLENS TEST (test code = ALLENS) Yes TOTAL HGB (test code = THB) 11.2 g/dL 12.0-16.0 L TCO2 ARTERIAL (test code = TCO2A) 19.5 mL/dL 15-23 N PaO2/[id number] 21:39:00 Test Item Value Reference Range Interpretation Comments PaO2/FiO2 (test code = [id number]) 454.20 >200 PROTHROMBIN [id number] 21:12:00 Test Item Value Reference Range Interpretation Comments PROTHROMBIN TIME 10.0 SECONDS 9.4-12.5 N PATIENT (test code = PTP) INTERNATIONAL 0.9 RATIO 0.8-1.1 N THE INR IS USE FUL ONLY NORMAL RATIO (test FOR MONIT ORING code = INR) ANTICOAGULANT THERAPY.IT MAY BE UNRELIABLE IN T HE INITIAL PHASE O F ANTICOAGULATION AND IN UNSTABLE PATIEN TS. 2.0-3.0 is the recommended INR for the following:Preve ntion of venous thrombol ism in high-risk patients;treatm ent of venous thrombos is and pulmonary embol ism aftera course o f heparin; preven tion of systemic emboli sm in avariety of con dition, including atria l fibrillation andprosthetic t issue heart valves.2. 5-3.5 is the recommended INR for the following:Prost hetic mechanical hear t values and/or recurren t systemicemboliz ation. THROMBOPLASTIN TIME [id number] 21:12:00 Test Item Value Reference Range Interpretation Comments THROMBOPLASTIN TIME PARTIAL 34.0 SECONDS 25.1-36.5 N (test code = PTT) COVID 19 INHOUSE [id number] 20:40:00 Test Item Value Reference Range Interpretation Comments COVID 19 INHOUSE NEGATIVE Negative Negative re sults do not AG (test code = preclude 201 9-nCoV infection [id number]) andshould not b e used as the sole basis for treatment or otherpatient ma nagement decisions. Nega tive results must becombined with clinical observ ations, patient history , andepidemiologi abhinav information. UA RFLX MICR CULT IF [id number] 20:31:00 Test Item Value Reference Range Interpretation Comments UA COLOR (test code = COLU) STRAW YELLOW UA APPEARANCE (test code = CLEAR CLEAR APPU) UA GLUCOSE DIPSTICK (test 3+ NEGATIVE A code = DGLUU) UA BILIRUBIN DIPSTICK (test NEGATIVE NEGATIVE code = BILU) UA KETONE DIPSTICK (test code 2+ NEGATIVE A = KETU) UA SPECIFIC GRAVITY (test 1.022 1.005-1.025 N code = SGU) UA BLOOD DIPSTICK (test code NEGATIVE NEGATIVE = EVELIN) UA PH DIPSTICK (test code = 5.0 5.0-8.0 KALEY) UA PROTEIN DIPSTICK (test NEGATIVE NEGATIVE code = PROU) UA UROBILINOGEN DIPSTICK NEGATIVE EU/dL 0.1-0.2 (test code = URO) UA NITRITE DIPSTICK (test NEGATIVE NEGATIVE code = EDMUND) UA LEUKOCYTE ESTERASE NEGATIVE NEGATIVE DIPSTICK (test code = LEUU) UA MICROSCOPIC NEEDED? (test NO NO code = UAMICRO) UA WBC (test code = WBCU) NONE SEEN /hpf 0-3 UA RBC (test code = RBCU) 0-2 /hpf 0-3 UA BACTERIA (test code = NONE SEEN /HPF NEGATIVE BACU) UA SQUAMOUS CELLS (test code RARE /HPF FEW = SQU) UA MUCUS (test code = MUCU) OCCASIONAL /lpf Indication for culture: RiskForSepsis-no oth srcSpecimen Description: CLEAN CATCHBASIC METABOLIC [id number] 19:56:00 Test Item Value Reference Range Interpretation Comments SODIUM (test code = 129 mmol/L 135-145 L NA) POTASSIUM (test code 4.8 mmol/L 3.5-5.1 = K) CHLORIDE (test code = 93 mmol/L 98-107 L CL) CARBON DIOXIDE (test 19 mmol/L 21-32 L code = CO2) ANION GAP (test code 21.8 2.0-16.0 H = GAP) GLUCOSE (test code = 617 mg/dL 65-99 HH Critica l Value GLU) reported toFirs t Name:NICK Last Name:BARI ARITA RES ULPRASANTH READ BACK AND VERIFIEDby CARRI SANDHU, on 08/07/21, @ 1953. BLOOD UREA NITROGEN 27 mg/dL 4-23 H (test code = BUN) GLOMERULAR FILTRATION 44 ml/min >60 L The es timated RATE (test code = glomerular filtration GFR) rate is compute d usingpatient ra ce, age (>18), sex, and serum creatinine. If anyof the needed data elements are mi ssing the Laboratory cannot compute an raysa mation of the glomerul ar filtration rate . CREATININE (test code 1.5 mg/dL 0.6-1.5 N = CREAT) BUN/CREATININE RATIO 18.0 12.0-20.0 N (test code = BUN/CREA) CALCIUM (test code = 9.8 mg/dL 8.5-10.1 N CA) LIVER FUNCTION [id number] 19:56:00 Test Item Value Reference Range Interpretation Comments TOTAL PROTEIN 8.1 g/dL 6.4-8.2 N (test code = PROT) ALBUMIN (test code 4.0 g/dL 3.4-5.0 N = ALB) GLOBULIN (test 4.1 g/dL 2.3-3.5 H code = GLOB) BILIRUBIN TOTAL 0.6 mg/dL 0.2-1.2 N Use of this assay is not (test code = BILT) recommend ed for patients undergoingtreat ment with Eltrombopag due to the potential for falselyelevated results. BILIRUBIN DIRECT 0.2 mg/dL 0.0-0.3 N (test code = BILD) BILIRUBIN INDIRECT 0.4 mg/dL 0.0-0.8 N (test code = BILIND) SGOT/AST (test 29 U/L 15-37 N code = AST) SGPT/ALT (test 25 U/L 6-50 N code = ALT) ALKALINE 114 U/L 45-117 N PHOSPHATASE (test code = ALKP) TROP-I HIGH [id number] 19:56:00 Test Item Value Reference Range Interpretation Comments TROP-I HIGH 2095 pg/mL 0-53 HH Critical Value SENSITIVITY (test code repor sarah beth toFirst = TROPIHS) Name:NICK Last Name:BARI ARITA RES ULTS READ BACK AND VERIFIEDby CARRI SANDHU, on 08/07/21, @ 1953.CAUTION: U nits of the current test methodology (pg /mL) differ from the prior test methodolog y (ng/mL) by a fa ctor of 1000. ACETONE [id number] 19:56:00 Test Item Value Reference Range Interpretation Comments ACETONE QUAL (test code = ACETNQL) LARGE NEGATIVE A [id number] 19:35:00 Test Item Value Reference Range Interpretation Comments GLUBED (test 551 mg/dL 70-105 HH CRITICAL RESULT - TESTING code = GLUBED) PERFORMED BY PRIMARY CAREGIVERIntrav enous administration of N-acetylcystein e which resultsin blood concentrations >5 mg/dL will cause overestim ationof blood glucose results . Do not use during intraven ousinfusion of N'acetylcystein e. CBC W/O [id number] 19:33:00 Test Item Value Reference Range Interpretation Comments WHITE BLOOD CELL (test code = 5.6 10 3/uL 4.5-11.0 N WBC) RED BLOOD CELL (test code = RBC) 3.98 10 6/uL 3.50-5.50 N HEMOGLOBIN (test code = HGB) 12.3 g/dL 12.0-16.0 N HEMATOCRIT (test code = HCT) 36.2 % 37.0-55.0 L MEAN CELL VOLUME (test code = 91 fL 81-102 N MCV) MEAN CELL HGB (test code = MCH) 30.9 pg 26.0-34.0 N MEAN CELL HGB CONCENTRATION 34.0 g/dL 31.0-37.0 N (test code = MCHC) RED CELL DISTRIBUTION WIDTH 13.2 % 11.6-14.4 N (test code = RDW) PLATELET COUNT (test code = PLT) 262 10 3/uL 150-400 N [id number] 11:39:00 Test Item Value Reference Range Interpretation Comments GLUBED (test 324 mg/dL 65-99 H Intravenous adm inistration code = GLUBED) of N-acetylcy steine which resultsin blood concentrations >5 mg/dL will cause overestim ationof blood glucose results . Do not use during intraven ousinfusion of N'acetylcyst eine. [id number] 09:12:00 Test Item Value Reference Range Interpretation Comments GLUBED (test 62 mg/dL 65-99 L Intravenous adm inistration of code = GLUBED) N-acetylcyste ine which resultsin blood concentrations >5 mg/dL will cause overestim ationof blood glucose results . Do not use during intraven ousinfusion of N'acetylcystein e. [id number] 08:36:00 Test Item Value Reference Range Interpretation Comments GLUBED (test 36 mg/dL 65-99 LL CRITICAL RESULT - TESTING code = GLUBED) PERFORMED BY PRIMARY CAREGIVERIntrav enous administration of N-acetylcystein e which resultsin blood concentrations >5 mg/dL will cause overestim ationof blood glucose results . Do not use during intraven ousinfusion of N'acetylcystein e. [id number] 07:58:00 Test Item Value Reference Range Interpretation Comments PHOSPHOROUS (test code = PHOS) 3.3 mg/dL 2.5-4.9 N BASIC METABOLIC [id number] 06:21:00 Test Item Value Reference Range Interpretation Comments SODIUM (test code 140 mmol/L 135-145 N = NA) POTASSIUM (test 3.3 mmol/L 3.5-5.1 L code = K) CHLORIDE (test 105 mmol/L 98-107 N code = CL) CARBON DIOXIDE 27 mmol/L 21-32 N (test code = CO2) ANION GAP (test 11.3 2.0-16.0 N code = GAP) GLUCOSE (test code 68 mg/dL 65-99 N = GLU) BLOOD UREA 22 mg/dL 4-23 N NITROGEN (test code = BUN) GLOMERULAR >=60 max >60 The estimated FILTRATION RATE estimate ml/min glomerula r (test code = GFR) filtration rate is computed usingpatient ra ce, age (>18), sex, and serum creatinin e. If anyof the neede d data elements a re missing the Laboratory olivier ot compute an estimation of t he glomerular filtration rate . CREATININE (test 0.9 mg/dL 0.6-1.5 N code = CREAT) BUN/CREATININE 24.4 12.0-20.0 H RATIO (test code = BUN/CREA) CALCIUM (test code 8.0 mg/dL 8.5-10.1 L = CA) [id number] 06:21:00 Test Item Value Reference Range Interpretation Comments MAGNESIUM (test code = MAG) 1.8 mg/dL 1.8-2.4 N TROP-I HIGH [id number] 06:21:00 Test Item Value Reference Range Interpretation Comments TROP-I HIGH 3936 pg/mL 0-53 HH Critical Value SENSITIVITY (test code repor sarah beth toFirst = TROPIHS) Name:kassie morales Name:mumtaz RESULTS READ BA CK AND VERIFIEDby [id number], on 04/09/21, @ 4525.CAUTION: U nits of the current test methodology (pg /mL) differ from th e prior test methodology (ng /mL) by a factor of 1000. CBC W/AUTO [id number] 06:05:00 Test Item Value Reference Range Interpretation Comments WHITE BLOOD CELL (test code = 3.2 10 3/uL 4.5-11.0 L WBC) RED BLOOD CELL (test code = 3.20 10 6/uL 3.50-5.50 L RBC) HEMOGLOBIN (test code = HGB) 9.2 g/dL 12.0-16.0 L HEMATOCRIT (test code = HCT) 27.6 % 37.0-55.0 L MEAN CELL VOLUME (test code = 86 fL 81-102 N MCV) MEAN CELL HGB (test code = 28.8 pg 26.0-34.0 N MCH) MEAN CELL HGB CONCENTRATION 33.3 g/dL 31.0-37.0 N (test code = MCHC) RED CELL DISTRIBUTION WIDTH 15.2 % 11.6-14.4 H (test code = RDW) PLATELET COUNT (test code = 165 10 3/uL 150-400 N PLT) MEAN PLATELET VOLUME (test 10.8 fL 9.0-12.6 N code = MPV) NEUTROPHIL % (test code = NT%) 39.3 % 33.0-76.0 N IMMATURE GRANULOCYTE % (test 0.3 % 0.0-1.0 N code = IG%) LYMPHOCYTE % (test code = LY%) 44.1 % 14.0-56.4 N MONOCYTE % (test code = MO%) 13.8 % 0.0-12.9 H EOSINOPHIL % (test code = EO%) 1.9 % 0.0-7.0 N BASOPHIL % (test code = BA%) 0.6 % 0-2.0 N NUCLEATED RBC % (test code = 0.0 % 0-0.2 N NRBC%) NEUTROPHIL # (test code = NT#) 1.26 10 3/uL 1.5-7.0 L IMMATURE GRANULOCYTE # (test 0.010 x10 3/uL 0.000-0.100 N code = IG#) LYMPHOCYTE # (test code = LY#) 1.41 10 3/uL 1.50-4.00 L MONOCYTE # (test code = MO#) 0.44 10 3/uL 0.20-0.80 N EOSINOPHIL # (test code = EO#) 0.06 10 3/uL 0.0-0.5 N BASOPHIL # (test code = BA#) 0.02 10 3/uL 0.0-0.1 N TROP-I HIGH [id number] 21:55:00 Test Item Value Reference Range Interpretation Comments TROP-I HIGH 3841 pg/mL 0-53 HH Critical Value SENSITIVITY (test code repor sarah beth Coppola = TROPIHS) Name:Kassie morales Name:mumtaz arita RESULTS READ BA CK AND VERIFIEDby 2FUG [id number], on 04/08/21, @ 0376.CAUTION: U nits of the current test methodology (pg /mL) differ from the prior test methodolog y (ng/mL) by a fa ctor of 1000. [id number] 21:18:00 Test Item Value Reference Range Interpretation Comments GLUBED (test 158 mg/dL 65-99 H Intravenous adm inistration code = GLUBED) of N-acetylcy steine which resultsin blood concentrations >5 mg/dL will cause overestim ationof blood glucose results . Do not use during intraven ousinfusion of N'acetylcyst eine. TROP-I HIGH [id number] 17:00:00 Test Item Value Reference Range Interpretation Comments TROP-I HIGH 4987 pg/mL 0-53 HH Critical Value SENSITIVITY (test code repor sarah beth Coppola = TROPIHS) Name:BOB Mc Name:KRISTIN RADER READ BACK AND VERIFIEDby CARRI AMEZQUITA, on 04/08/21, @ 1700.CAUTION: U nits of the current test methodology (pg /mL) differ from the prior test methodolog y (ng/mL) by a fa ctor of 1000. OSMOLALITY [id number] 15:45:00 Test Item Value Reference Range Interpretation Comments OSMOLALITY SERUM (test code = 322 mOsm/kg 278-305 H OSMO) Spec Comments: While on insulin dripComments to Phleb: Increase to Q 1hour if less than [id number] 15:29:00 Test Item Value Reference Range Interpretation Comments GLUBED (test 115 mg/dL 65-99 H Intravenous adm inistration code = GLUBED) of N-acetylcy steine which resultsin blood concentrations >5 mg/dL will cause overestim ationof blood glucose results . Do not use during intraven ousinfusion of N'acetylcyst eine. - US RETRO [id number] 15:18:00 [facility] : 1950 Sex: FPatient Name: DANIELE HINKLE Unit No: [id number] EXAMS: CPT CODE: [id number] US RETRO LTD [id number] EXAM: - US RETRO LTD LOCATION: 5 HISTORY: Abnormal renal function TECHNIQUE: Grayscale B-modeand color Doppler sonographic images of the kidneys were performed. Dedicated grayscale B-mode and color Doppler pelvic imaging of the urinary bladder was also performed. COMPARISON: None available FINDINGS: The right kidney measures 9.5 x 3.5 x 5.0 cm. Normal echogenicity and contour. No hydronephrosis or perinephric fluid collections. The left kidney measures 9.8 x 5.5 x 4.5 cm. Normal echogenicity and contour. No hydronephrosis or perinephric fluid collections. The urinary bladder volume is 154mL. No intraluminal echogenic debris or space-occupying mass noted. IMPRESSION: Unremarkable sonographic appearance of the kidneys bilaterally without hydronephrosis. at 1518 Reported and signed by: Hero Palmer MD CC: Self Referred; Kevin Mueller MD; Erasmo Fay MD Technologist: Sowmya Manning Probe: Trsgildardo Dt/Tm: 04/08/2021 (1518) by:[email or web address] Electronic Signature Date/Time: 04/08/2021 (1517)Orig Print D/T: S: 04/08/2021 (152) [facility] [id number] - [place] [address] : 1950 Age: 70 Sex: [place] [id number] Loc: NC.3101 1 Exam Date: 04/08/2021 Status: ADM IN PH: FAX: PAGE 1 Signed ReportGLUBED 2021-04-08 12:17:00 Test Item Value Reference Range Interpretation Comments GLUBED (test 196 mg/dL 65-99 H Intravenous adm inistration code = GLUBED) of N-acetylcy steine which resultsin blood concentrations >5 mg/dL will cause overestim ationof blood glucose results . Do not use during intraven ousinfusion of N'acetylcyst eine. BASIC METABOLIC [id number] 10:55:00 Test Item Value Reference Range Interpretation Comments SODIUM (test code = 138 mmol/L 135-145 N NA) POTASSIUM (test code 4.1 mmol/L 3.5-5.1 N = K) CHLORIDE (test code = 105 mmol/L 98-107 N CL) CARBON DIOXIDE (test 26 mmol/L 21-32 N code = CO2) ANION GAP (test code 11.1 2.0-16.0 N = GAP) GLUCOSE (test code = 90 mg/dL 65-99 N GLU) BLOOD UREA NITROGEN 21 mg/dL 4-23 N (test code = BUN) GLOMERULAR FILTRATION 58 ml/min >60 L The es timated RATE (test code = glomerular filtration GFR) rate is compute d usingpatient ra ce, age (>18), sex, and serum creatinine. If anyof the needed data elements are mi ssing the Laboratory cannot compute an raysa mation of the glomerul ar filtration rate . CREATININE (test code 1.2 mg/dL 0.6-1.5 N = CREAT) BUN/CREATININE RATIO 17.5 12.0-20.0 N (test code = BUN/CREA) CALCIUM (test code = 8.4 mg/dL 8.5-10.1 L CA) Spec Comments: While on insulin dripComments to Phleb: Increase to Q 1hour if less than [id number] 10:55:00 Test Item Value Reference Range Interpretation Comments PHOSPHOROUS (test code = PHOS) 2.9 mg/dL 2.5-4.9 N Spec Comments: While on insulin dripComments to Phleb: Increase to Q 1hour if less than [id number] 10:55:00 Test Item Value Reference Range Interpretation Comments MAGNESIUM (test code = MAG) 1.9 mg/dL 1.8-2.4 N Spec Comments: While on insulin dripComments to Phleb: Increase to Q 1hour if less than 3.3T3 (TOTAL)2021-04-08 10:55:00 Test Item Value Reference Range Interpretation Comments T3 (TOTAL) (test code = T3T) 0.75 ng/mL 0.6-1.81 N Spec Comments: While on insulin dripComments to Phleb: Increase to Q 1hour if less than 3.3VITAMIN D [id number] 10:55:00 Test Item Value Reference Range Interpretation Comments VITAMIN D 25-HYDROXY 29 ng/mL 30-100 L Level n g/mLDeficient (test code = VITD25) <20Insu fficient 20-29Optimal le vels 30-100 Spec Comments: While on insulin dripComments to Phleb: Increase to Q 1hour if less than 3.3CBC W/AUTO [id number] 09:57:00 Test Item Value Reference Range Interpretation Comments WHITE BLOOD CELL (test code = 6.5 10 3/uL 4.5-11.0 N WBC) RED BLOOD CELL (test code = 3.69 10 6/uL 3.50-5.50 N RBC) HEMOGLOBIN (test code = HGB) 10.7 g/dL 12.0-16.0 L HEMATOCRIT (test code = HCT) 32.0 % 37.0-55.0 L MEAN CELL VOLUME (test code = 87 fL 81-102 N MCV) MEAN CELL HGB (test code = 29.0 pg 26.0-34.0 N MCH) MEAN CELL HGB CONCENTRATION 33.4 g/dL 31.0-37.0 N (test code = MCHC) RED CELL DISTRIBUTION WIDTH 15.5 % 11.6-14.4 H (test code = RDW) PLATELET COUNT (test code = 215 10 3/uL 150-400 N PLT) MEAN PLATELET VOLUME (test 11.1 fL 9.0-12.6 N code = MPV) NEUTROPHIL % (test code = NT%) 61.5 % 33.0-76.0 N IMMATURE GRANULOCYTE % (test 0.5 % 0.0-1.0 N code = IG%) LYMPHOCYTE % (test code = LY%) 28.4 % 14.0-56.4 N MONOCYTE % (test code = MO%) 7.6 % 0.0-12.9 N EOSINOPHIL % (test code = EO%) 1.4 % 0.0-7.0 N BASOPHIL % (test code = BA%) 0.6 % 0-2.0 N NUCLEATED RBC % (test code = 0.0 % 0-0.2 N NRBC%) NEUTROPHIL # (test code = NT#) 3.98 10 3/uL 1.5-7.0 N IMMATURE GRANULOCYTE # (test 0.030 x10 3/uL 0.000-0.100 N code = IG#) LYMPHOCYTE # (test code = LY#) 1.84 10 3/uL 1.50-4.00 N MONOCYTE # (test code = MO#) 0.49 10 3/uL 0.20-0.80 N EOSINOPHIL # (test code = EO#) 0.09 10 3/uL 0.0-0.5 N BASOPHIL # (test code = BA#) 0.04 10 3/uL 0.0-0.1 N [id number] 09:47:00 Test Item Value Reference Range Interpretation Comments GLUBED (test 162 mg/dL 65-99 H Intravenous adm inistration code = GLUBED) of N-acetylcy steine which resultsin blood concentrations >5 mg/dL will cause overestim ationof blood glucose results . Do not use during intraven ousinfusion of N'acetylcyst eine. [id number] 02:11:00 Test Item Value Reference Range Interpretation Comments POTASSIUM (test code = K) 3.6 mmol/L 3.5-5.1 N Spec Comments: While on insulin dripComments to Phleb: Increase to Q 1hour if less than 3.3TROP-I HIGH [id number] 01:47:00 Test Item Value Reference Range Interpretation Comments TROP-I HIGH 8569 pg/mL 0-53 HH Critical Value SENSITIVITY (test code repor sarah beth Ramírezt = TROPIHS) Name:KASSIE morales Name:DANIEL MULLIGAN READ BACK AND VERIFIEDby [id number], on 04/08/21, @ 3371.CAUTION: U nits of the current test methodology (pg /mL) differ from the prior test methodolog y (ng/mL) by a fa ctor of 1000. [id number] 20:34:00 Test Item Value Reference Range Interpretation Comments GLUBED (test 225 mg/dL 65-99 H Intravenous adm inistration code = GLUBED) of N-acetylcy steine which resultsin blood concentrations >5 mg/dL will cause overestim ationof blood glucose results . Do not use during intraven ousinfusion of N'acetylcyst eine. VITAMIN [id number] 17:00:00 Test Item Value Reference Range Interpretation Comments VITAMIN B12 (test code = VITB12) 1997 pg/mL 254-1320 H T3 [id number] 17:00:00 Test Item Value Reference Range Interpretation Comments T3 UPTAKE (test code = T3UP) 38.0 % 31.0-39.0 N T4 (THYROXINE)2021-04-07 17:00:00 Test Item Value Reference Range Interpretation Comments T4 (THYROXINE) (test code = T4) 6.3 ug/dL 4.7-11.4 N THYROID STIMULATING [id number] 17:00:00 Test Item Value Reference Range Interpretation Comments THYROID STIMULATING HORMONE (test 0.83 mIU/mL 0.36-3.74 N code = TSH) [id number] 16:50:00 Test Item Value Reference Range Interpretation Comments GLUBED (test 327 mg/dL 65-99 H Intravenous adm inistration code = GLUBED) of N-acetylcy steine which resultsin blood concentrations >5 mg/dL will cause overestim ationof blood glucose results . Do not use during intraven ousinfusion of N'acetylcyst eine. [id number] 11:47:00 Test Item Value Reference Range Interpretation Comments GLUBED (test 238 mg/dL 65-99 H Intravenous adm inistration code = GLUBED) of N-acetylcy steine which resultsin blood concentrations >5 mg/dL will cause overestim ationof blood glucose results . Do not use during intraven ousinfusion of N'acetylcyst eine. [id number] 11:26:00 Test Item Value Reference Range Interpretation Comments GLUBED (test 143 mg/dL 65-99 H Intravenous adm inistration code = GLUBED) of N-acetylcy steine which resultsin blood concentrations >5 mg/dL will cause overestim ationof blood glucose results . Do not use during intraven ousinfusion of N'acetylcyst eine. [id number] 09:56:00 Test Item Value Reference Range Interpretation Comments GLUBED (test 143 mg/dL 65-99 H Intravenous adm inistration code = GLUBED) of N-acetylcy steine which resultsin blood concentrations >5 mg/dL will cause overestim ationof blood glucose results . Do not use during intraven ousinfusion of N'acetylcyst eine. [id number] 08:32:00 Test Item Value Reference Range Interpretation Comments GLUBED (test 135 mg/dL 65-99 H Intravenous adm inistration code = GLUBED) of N-acetylcy steine which resultsin blood concentrations >5 mg/dL will cause overestim ationof blood glucose results . Do not use during intraven ousinfusion of N'acetylcyst eine. [id number] 05:58:00 Test Item Value Reference Range Interpretation Comments GLUBED (test 158 mg/dL 65-99 H Intravenous adm inistration code = GLUBED) of N-acetylcy steine which resultsin blood concentrations >5 mg/dL will cause overestim ationof blood glucose results . Do not use during intraven ousinfusion of N'acetylcyst eine. [id number] 05:55:00 Test Item Value Reference Range Interpretation Comments GLUBED (test 209 mg/dL 65-99 H Intravenous adm inistration code = GLUBED) of N-acetylcy steine which resultsin blood concentrations >5 mg/dL will cause overestim ationof blood glucose results . Do not use during intraven ousinfusion of N'acetylcyst eine. BASIC METABOLIC [id number] 04:41:00 Test Item Value Reference Range Interpretation Comments SODIUM (test code = 142 mmol/L 135-145 N NA) POTASSIUM (test code 3.5 mmol/L 3.5-5.1 = K) CHLORIDE (test code = 110 mmol/L 98-107 H CL) CARBON DIOXIDE (test 21 mmol/L 21-32 N code = CO2) ANION GAP (test code 14.5 2.0-16.0 N = GAP) GLUCOSE (test code = 302 mg/dL 65-99 H GLU) BLOOD UREA NITROGEN 37 mg/dL 4-23 H (test code = BUN) GLOMERULAR FILTRATION 41 ml/min >60 L The es timated RATE (test code = glomerular filtration GFR) rate is compute d usingpatient ra ce, age (>18), sex, and serum creatinine. If anyof the needed data elements are mi ssing the Laboratory cannot compute an raysa mation of the glomerul ar filtration rate . CREATININE (test code 1.6 mg/dL 0.6-1.5 H = CREAT) BUN/CREATININE RATIO 23.1 12.0-20.0 H (test code = BUN/CREA) CALCIUM (test code = 8.2 mg/dL 8.5-10.1 L CA) Spec Comments: While on insulin dripComments to Phleb: Increase to Q 1hour if less than [id number] 04:41:00 Test Item Value Reference Range Interpretation Comments PHOSPHOROUS (test code = PHOS) 3.1 mg/dL 2.5-4.9 N Spec Comments: While on insulin dripComments to Phleb: Increase to Q 1hour if less than [id number] 04:41:00 Test Item Value Reference Range Interpretation Comments MAGNESIUM (test code = MAG) 1.8 mg/dL 1.8-2.4 N Spec Comments: While on insulin dripComments to Phleb: Increase to Q 1hour if less than 3.3VENOUS BLOOD [id number] 04:31:00 Test Item Value Reference Range Interpretation Comments VENOUS BLOOD GAS PH 7.32 pH 7.32-7.42 N (test code = PHV) VENOUS BLOOD GAS PCO2 40 mmHg 41-51 L (test code = PCO2V) VENOUS BLOOD GAS PO2 31 mmHg 25-40 N (test code = PO2V) VBG HCO3 (test code = 20 mmol/L 24-25 L HCO3V) VBG BASE EXCESS (test -6 mmol/L -5-5 L code = GLENN) VENOUS BLOOD GAS O2 61 % 70-75 L SAT (test code = O2SATV) VENOUS BLOOD GAS TYPE Venous Notif ied: NAHOMI (test code = TYPEV) COMISKEY by MICHAEL COSTELLO on 05/12/07 a VENOUS BLOOD GAS FIO2 21.0 0.0-1000.0 N (test code = FIO2V) VBG VENT MODE (test NC code = MODEV) VENOUS BLOOD [id number] 04:30:00 Test Item Value Reference Range Interpretation Comments VENOUS BLOOD GAS PH 7.23 pH 7.32-7.42 L (test code = PHV) VENOUS BLOOD GAS PCO2 31 mmHg 41-51 L (test code = PCO2V) VENOUS BLOOD GAS PO2 47 mmHg 25-40 H (test code = PO2V) VBG HCO3 (test code = 12 mmol/L 24-25 L HCO3V) VBG BASE EXCESS (test -14 mmol/L -5-5 L code = GLENN) VENOUS BLOOD GAS O2 79 % 70-75 H SAT (test code = O2SATV) VENOUS BLOOD GAS TYPE Venous Notif ied: NAHOMI (test code = TYPEV) COMISKEY by MICHAEL COSTELLO on 05/12/07 a VENOUS BLOOD GAS FIO2 32.0 0.0-1000.0 N (test code = FIO2V) VENOUS BLOOD GAS 3.00 L/min L/MIN (test code = L/MV) VBG VENT MODE (test NC code = MODEV) CBC W/AUTO [id number] 04:23:00 Test Item Value Reference Range Interpretation Comments WHITE BLOOD CELL (test code = 14.2 10 3/uL 4.5-11.0 H WBC) RED BLOOD CELL (test code = 3.19 10 6/uL 3.50-5.50 L RBC) HEMOGLOBIN (test code = HGB) 9.4 g/dL 12.0-16.0 L HEMATOCRIT (test code = HCT) 27.8 % 37.0-55.0 L MEAN CELL VOLUME (test code = 87 fL 81-102 N MCV) MEAN CELL HGB (test code = 29.5 pg 26.0-34.0 N MCH) MEAN CELL HGB CONCENTRATION 33.8 g/dL 31.0-37.0 N (test code = MCHC) RED CELL DISTRIBUTION WIDTH 14.8 % 11.6-14.4 H (test code = RDW) PLATELET COUNT (test code = 214 10 3/uL 150-400 N PLT) MEAN PLATELET VOLUME (test 11.0 fL 9.0-12.6 N code = MPV) NEUTROPHIL % (test code = NT%) 79.2 % 33.0-76.0 H IMMATURE GRANULOCYTE % (test 1.2 % 0.0-1.0 H code = IG%) LYMPHOCYTE % (test code = LY%) 11.4 % 14.0-56.4 L MONOCYTE % (test code = MO%) 7.7 % 0.0-12.9 N EOSINOPHIL % (test code = EO%) 0.1 % 0.0-7.0 N BASOPHIL % (test code = BA%) 0.4 % 0-2.0 N NUCLEATED RBC % (test code = 0.0 % 0-0.2 N NRBC%) NEUTROPHIL # (test code = NT#) 11.29 10 3/uL 1.5-7.0 H IMMATURE GRANULOCYTE # (test 0.170 x10 3/uL 0.000-0.100 H code = IG#) LYMPHOCYTE # (test code = LY#) 1.62 10 3/uL 1.50-4.00 N MONOCYTE # (test code = MO#) 1.10 10 3/uL 0.20-0.80 H EOSINOPHIL # (test code = EO#) 0.01 10 3/uL 0.0-0.5 N BASOPHIL # (test code = BA#) 0.05 10 3/uL 0.0-0.1 N [id number] 03:49:00 Test Item Value Reference Range Interpretation Comments GLUBED (test 271 mg/dL 65-99 H Intravenous adm inistration code = GLUBED) of N-acetylcy steine which resultsin blood concentrations >5 mg/dL will cause overestim ationof blood glucose results . Do not use during intraven ousinfusion of N'acetylcyst eine. [id number] 01:59:00 Test Item Value Reference Range Interpretation Comments GLUBED (test 338 mg/dL 65-99 H Intravenous adm inistration code = GLUBED) of N-acetylcy steine which resultsin blood concentrations >5 mg/dL will cause overestim ationof blood glucose results . Do not use during intraven ousinfusion of N'acetylcyst eine. [id number] 00:59:00 Test Item Value Reference Range Interpretation Comments GLUBED (test 368 mg/dL 65-99 H Intravenous adm inistration code = GLUBED) of N-acetylcy steine which resultsin blood concentrations >5 mg/dL will cause overestim ationof blood glucose results . Do not use during intraven ousinfusion of N'acetylcyst eine. BASIC METABOLIC [id number] 00:38:00 Test Item Value Reference Range Interpretation Comments SODIUM (test code = 141 mmol/L 135-145 N NA) POTASSIUM (test code 4.9 mmol/L 3.5-5.1 N SLIGHTL Y HEMOLYZED = K) CHLORIDE (test code = 110 mmol/L 98-107 H CL) CARBON DIOXIDE (test 18 mmol/L 21-32 L code = CO2) ANION GAP (test code 17.9 2.0-16.0 H = GAP) GLUCOSE (test code = 381 mg/dL 65-99 H GLU) BLOOD UREA NITROGEN 38 mg/dL 4-23 H (test code = BUN) GLOMERULAR FILTRATION 44 ml/min >60 L The es timated RATE (test code = glomerular filtration GFR) rate is compute d usingpatient ra ce, age (>18), sex, and serum creatinine. If anyof the needed data elements are mi ssing the Laboratory cannot compute an raysa mation of the glomerul ar filtration rate . CREATININE (test code 1.5 mg/dL 0.6-1.5 N = CREAT) BUN/CREATININE RATIO 25.3 12.0-20.0 H (test code = BUN/CREA) CALCIUM (test code = 8.1 mg/dL 8.5-10.1 L CA) [id number] 00:38:00 Test Item Value Reference Range Interpretation Comments PHOSPHOROUS (test code = PHOS) 4.0 mg/dL 2.5-4.9 N [id number] 00:38:00 Test Item Value Reference Range Interpretation Comments AMYLASE (test code = MINOO) 36 U/L 25-115 N [id number] 00:38:00 Test Item Value Reference Range Interpretation Comments MAGNESIUM (test code = MAG) 1.7 mg/dL 1.8-2.4 L OSMOLALITY [id number] 00:38:00 Test Item Value Reference Range Interpretation Comments OSMOLALITY SERUM (test code = OSMO) mOsm/kg 278-305 ACETONE [id number] 00:38:00 Test Item Value Reference Range Interpretation Comments ACETONE QUAL (test code = ACETNQL) SMALL NEGATIVE A UA RFLX MICR CULT IF [id number] 00:37:00 Test Item Value Reference Range Interpretation Comments UA COLOR (test code = COLU) LOULOU YELLOW A UA APPEARANCE (test code = CLOUDY CLEAR A APPU) UA GLUCOSE DIPSTICK (test code 3+ NEGATIVE A = DGLUU) UA BILIRUBIN DIPSTICK (test NEGATIVE NEGATIVE code = BILU) UA KETONE DIPSTICK (test code = 1+ NEGATIVE A KETU) UA SPECIFIC GRAVITY (test code 1.018 1.005-1.025 N = SGU) UA BLOOD DIPSTICK (test code = 1+ NEGATIVE A EVELIN) UA PH DIPSTICK (test code = 7.0 5.0-8.0 KALEY) UA PROTEIN DIPSTICK (test code 1+ NEGATIVE A = PROU) UA UROBILINOGEN DIPSTICK (test 2.0 EU/dL 0.1-0.2 A code = URO) UA NITRITE DIPSTICK (test code NEGATIVE NEGATIVE = EDMUND) UA LEUKOCYTE ESTERASE DIPSTICK 1+ NEGATIVE A (test code = LEUU) UA MICROSCOPIC NEEDED? (test YES NO A code = UAMICRO) UA WBC (test code = WBCU) 31-50 /hpf 0-3 A UA RBC (test code = RBCU) 21-30 /hpf 0-3 A UA BACTERIA (test code = BACU) MODERATE /HPF NEGATIVE UA SQUAMOUS CELLS (test code = Moderate /HPF FEW SQU) UA MUCUS (test code = MUCU) MODERATE /lpf Indication for culture: Dysuria/FrequencySpecimen Description: CLEAN CATCHGLUBED 2021-04-06 23:43:00 Test Item Value Reference Range Interpretation Comments GLUBED (test 388 mg/dL 65-99 H Intravenous adm inistration code = GLUBED) of N-acetylcy steine which resultsin blood concentrations >5 mg/dL will cause overestim ationof blood glucose results . Do not use during intraven ousinfusion of N'acetylcyst eine. CBC W/AUTO [id number] 22:46:00 Test Item Value Reference Range Interpretation Comments WHITE BLOOD CELL (test code = 14.5 10 3/uL 4.5-11.0 H WBC) RED BLOOD CELL (test code = 3.33 10 6/uL 3.50-5.50 L RBC) HEMOGLOBIN (test code = HGB) 9.8 g/dL 12.0-16.0 L HEMATOCRIT (test code = HCT) 29.6 % 37.0-55.0 L MEAN CELL VOLUME (test code = 89 fL 81-102 N MCV) MEAN CELL HGB (test code = 29.4 pg 26.0-34.0 N MCH) MEAN CELL HGB CONCENTRATION 33.1 g/dL 31.0-37.0 N (test code = MCHC) RED CELL DISTRIBUTION WIDTH 15.5 % 11.6-14.4 H (test code = RDW) PLATELET COUNT (test code = 177 10 3/uL 150-400 N PLT) MEAN PLATELET VOLUME (test 11.9 fL 9.0-12.6 N code = MPV) NEUTROPHIL % (test code = NT%) 76.4 % 33.0-76.0 H IMMATURE GRANULOCYTE % (test 1.8 % 0.0-1.0 H code = IG%) LYMPHOCYTE % (test code = LY%) 13.0 % 14.0-56.4 L MONOCYTE % (test code = MO%) 8.4 % 0.0-12.9 N EOSINOPHIL % (test code = EO%) 0.1 % 0.0-7.0 N BASOPHIL % (test code = BA%) 0.3 % 0-2.0 N NUCLEATED RBC % (test code = 0.0 % 0-0.2 N NRBC%) NEUTROPHIL # (test code = NT#) 11.08 10 3/uL 1.5-7.0 H IMMATURE GRANULOCYTE # (test 0.260 x10 3/uL 0.000-0.100 H code = IG#) LYMPHOCYTE # (test code = LY#) 1.88 10 3/uL 1.50-4.00 N MONOCYTE # (test code = MO#) 1.21 10 3/uL 0.20-0.80 H EOSINOPHIL # (test code = EO#) 0.01 10 3/uL 0.0-0.5 N BASOPHIL # (test code = BA#) 0.04 10 3/uL 0.0-0.1 N [id number] 22:41:00 Test Item Value Reference Range Interpretation Comments GLUBED (test 346 mg/dL 65-99 H Intravenous adm inistration code = GLUBED) of N-acetylcy steine which resultsin blood concentrations >5 mg/dL will cause overestim ationof blood glucose results . Do not use during intraven ousinfusion of N'acetylcyst eine. HGBA1C - GLYCOSYLATED [id number] 22:20:00 Test Item Value Reference Range Interpretation Comments GLYCOSYLATED 13.7 4.5-5.9 H The [place] [employer] HEMOGLOBIN (HA1C) Associatio n recommends a (test code = GLYHGB) therape uticrange of <7.0% Hemoglobin A1c for patients with diabetesmellitu s (Type 2 diabetes). LACTIC [id number] 22:09:00 Test Item Value Reference Range Interpretation Comments LACTIC ACID (test code = LACT) 1.2 mmol/L 0.4-2.0 N [id number] 19:50:00 Test Item Value Reference Range Interpretation Comments GLUBED (test 432 mg/dL 65-99 CRITICAL RESULT - TESTING code = GLUBED) PERFORMED BY PRIMARY CAREGIVERIntrav enous administration of N-acetylcystein e which resultsin blood concentrations >5 mg/dL will cause overestim ationof blood glucose results . Do not use during intraven ousinfusion of N'acetylcystein e. [id number] 18:31:00 Test Item Value Reference Range Interpretation Comments GLUBED (test 440 mg/dL 65-99 CRITICAL RESULT - TESTING code = GLUBED) PERFORMED BY PRIMARY CAREGIVERIntrav enous administration of N-acetylcystein e which resultsin blood concentrations >5 mg/dL will cause overestim ationof blood glucose results . Do not use during intraven ousinfusion of N'acetylcystein e. LACTIC [id number] 18:17:00 Test Item Value Reference Range Interpretation Comments LACTIC ACID (test 3.1 mmol/L 0.4-2.0 H Elevated L actate code = LACT) reported to the following Caregiver:Full Name/Title: SHANTELL SANTACRUZ/RNby NCL AB.VINNY, on 04/06/21, @ 1811 LIPID PROFILE (CORONARY RISK)2021-04-06 17:14:00 Test Item Value Reference Range Interpretation Comments TRIGLYCERIDES (test 124 mg/dL 0-149 N code = TRIG) CHOLESTEROL (test code 273 mg/dL 0-200 H = CHOL) CHOLESTEROL/HDL RATIO 3 1-6 N (test code = CHOLHDL) HDL CHOLESTEROL (test 88 mg/dL 40-60 H Accord ing to the code = HDL) [facility] ([facility]) an d theNational Cholesterol Edu cation Program (NCEP), an HDLcholesterol >or= 60mg/dL counts as a "negative" risk factor;its pres ence removes one ris k factor from the total count. LIPOPROTEIN LDL (test 141 mg/dL 0-100 H code = LDLC) [id number] 17:14:00 Test Item Value Reference Range Interpretation Comments AMYLASE (test code = MINOO) 46 U/L 25-115 N [id number] 17:14:00 Test Item Value Reference Range Interpretation Comments LIPASE (test code = LIP) 84 U/L 73-393 N LACTIC [id number] 16:35:00 Test Item Value Reference Range Interpretation Comments LACTIC ACID (test 3.8 mmol/L 0.4-2.0 H Elevated L actate code = LACT) reported to the following Caregiver:Full Name/Title: SHANTELL SANTACRUZ\\RN by [place] IHMA.VINNY, on 04/06/21, @ 9385 CREATINE KINASE (CK)2021-04-06 16:35:00 Test Item Value Reference Range Interpretation Comments CREATINE KINASE (CK) (test code = CK) 311 U/L 26-308 H [id number] 16:35:00 Test Item Value Reference Range Interpretation Comments CKMB (test code = CKMBT) 6.9 ng/mL 0.5-3.6 H TROP-I HIGH [id number] 16:35:00 Test Item Value Reference Range Interpretation Comments TROP-I HIGH 563 pg/mL 0-53 HH Critical Value SENSITIVITY (test code repor sarah beth toFirst = TROPIHS) Name:COLEMAN CA Last Name:RNRESULTS READ BACK AND VERIFI EDby NCLAB., on , @ 5414.CAUTION: Units of the current test methodology (pg /mL) differ from the prior test methodolog y (ng/mL) by a fa ctor of 1000. COVID 19 INHOUSE [id number] 16:23:00 Test Item Value Reference Range Interpretation Comments COVID 19 INHOUSE NEGATIVE Negative Negative re sults do not AG (test code = preclude 201 9-nCoV infection [id number]) andshould not b e used as the sole basis for treatment or otherpatient ma nagement decisions. Nega tive results must becombined with clinical observ ations, patient history , andepidemiologi abhinav information. OSMOLALITY [id number] 16:02:00 Test Item Value Reference Range Interpretation Comments OSMOLALITY SERUM (test code = 342 mOsm/kg 278-305 H OSMO) [id number] 15:53:00 Test Item Value Reference Range Interpretation Comments GLUBED (test 564 mg/dL 65-99 HH CRITICAL RESULT - TESTING code = GLUBED) PERFORMED BY PRIMARY CAREGIVERIntrav enous administration of N-acetylcystein e which resultsin blood concentrations >5 mg/dL will cause overestim ationof blood glucose results . Do not use during intraven ousinfusion of N'acetylcystein e. B-TYPE NATRIURETIC [id number] 13:53:00 Test Item Value Reference Range Interpretation Comments B-TYPE NATRIURETIC PEPTIDE (test 337 pg/mL 0-100 H code = BNP) BASIC METABOLIC [id number] 13:47:00 Test Item Value Reference Range Interpretation Comments SODIUM (test code = 133 mmol/L 135-145 L NA) POTASSIUM (test code 4.6 mmol/L 3.5-5.1 N = K) CHLORIDE (test code = 97 mmol/L 98-107 L CL) CARBON DIOXIDE (test 12 mmol/L 21-32 L code = CO2) ANION GAP (test code 28.6 2.0-16.0 H = GAP) GLUCOSE (test code = 647 mg/dL 65-99 HH Critica l Value GLU) reported toFirs t Name:DARRIAN Lambert ast Name:ZO ULPRASANTH READ BACK AND VERIFIEDby 2HXU 7144, on 04/06/21, @ 1345. BLOOD UREA NITROGEN 40 mg/dL 4-23 H (test code = BUN) GLOMERULAR FILTRATION 36 ml/min >60 L The es timated RATE (test code = glomerular filtration GFR) rate is compute d usingpatient ra ce, age (>18), sex, and serum creatinine. If anyof the needed data elements are mi ssing the Laboratory cannot compute an raysa mation of the glomerul ar filtration rate . CREATININE (test code 1.8 mg/dL 0.6-1.5 H = CREAT) BUN/CREATININE RATIO 22.2 12.0-20.0 H (test code = BUN/CREA) CALCIUM (test code = 9.0 mg/dL 8.5-10.1 N CA) LIVER FUNCTION [id number] 13:47:00 Test Item Value Reference Range Interpretation Comments TOTAL PROTEIN 7.8 g/dL 6.4-8.2 N (test code = PROT) ALBUMIN (test code 3.7 g/dL 3.4-5.0 N = ALB) GLOBULIN (test 4.1 g/dL 2.3-3.5 H code = GLOB) BILIRUBIN TOTAL 0.5 mg/dL 0.2-1.2 N Use of this assay is not (test code = BILT) recommend ed for patients undergoingtreat ment with Eltrombopag due to the potential for falselyelevated results. BILIRUBIN DIRECT 0.2 mg/dL 0.0-0.3 N (test code = BILD) BILIRUBIN INDIRECT 0.3 mg/dL 0.0-0.8 N (test code = BILIND) SGOT/AST (test 31 U/L 15-37 N code = AST) SGPT/ALT (test 33 U/L 6-50 N code = ALT) ALKALINE 112 U/L 45-117 N PHOSPHATASE (test code = ALKP) TROP-I HIGH [id number] 13:47:00 Test Item Value Reference Range Interpretation Comments TROP-I HIGH 133 pg/mL 0-53 HH Critical Value SENSITIVITY (test code repor sarah beth toFirst = TROPIHS) Name:DARRIAN Lambert ast Name:ZO JUSTICE READ BACK AND VERIFIEDby 2HXU 7144, on 04/06/21, @ 1345.CAUTION: U nits of the current susan t methodology (pg /mL) differ from the prior test methodolog y (ng/mL) by a fa ctor of 1000. CBC W/AUTO [id number] 13:05:00 Test Item Value Reference Range Interpretation Comments WHITE BLOOD CELL (test code = 10.9 10 3/uL 4.5-11.0 N WBC) RED BLOOD CELL (test code = 3.89 10 6/uL 3.50-5.50 N RBC) HEMOGLOBIN (test code = HGB) 11.5 g/dL 12.0-16.0 L HEMATOCRIT (test code = HCT) 35.0 % 37.0-55.0 L MEAN CELL VOLUME (test code = 90 fL 81-102 N MCV) MEAN CELL HGB (test code = 29.6 pg 26.0-34.0 N MCH) MEAN CELL HGB CONCENTRATION 32.9 g/dL 31.0-37.0 N (test code = MCHC) RED CELL DISTRIBUTION WIDTH 14.8 % 11.6-14.4 H (test code = RDW) PLATELET COUNT (test code = 235 10 3/uL 150-400 N PLT) MEAN PLATELET VOLUME (test 11.5 fL 9.0-12.6 N code = MPV) NEUTROPHIL % (test code = NT%) 82.6 % 33.0-76.0 H IMMATURE GRANULOCYTE % (test 1.4 % 0.0-1.0 H code = IG%) LYMPHOCYTE % (test code = LY%) 10.2 % 14.0-56.4 L MONOCYTE % (test code = MO%) 5.3 % 0.0-12.9 N EOSINOPHIL % (test code = EO%) 0.0 % 0.0-7.0 N BASOPHIL % (test code = BA%) 0.5 % 0-2.0 N NUCLEATED RBC % (test code = 0.0 % 0-0.2 N NRBC%) NEUTROPHIL # (test code = NT#) 9.01 10 3/uL 1.5-7.0 H IMMATURE GRANULOCYTE # (test 0.150 x10 3/uL 0.000-0.100 H code = IG#) LYMPHOCYTE # (test code = LY#) 1.11 10 3/uL 1.50-4.00 L MONOCYTE # (test code = MO#) 0.58 10 3/uL 0.20-0.80 N EOSINOPHIL # (test code = EO#) 0.00 10 3/uL 0.0-0.5 N BASOPHIL # (test code = BA#) 0.05 10 3/uL 0.0-0.1 N - XR CHEST 1 [id number] 12:58:00 [facility] : 1950 Sex: FPatient Name: DANIELE HINKLE Unit No: [id number] EXAMS: CPT CODE: [id number] XR CHEST 1 V 31956 CLINICAL HISTORY: CODE SEPSIS. LOCATION: A1 FINDINGS: Comparison is made with a previous study dated August 10, 2020. A portable AP view of the chest is dated 04/06/2021 at 1234 hours. The cardiomediastinal silhouette is within normal limits. There is mild diffuse interstitial prominence within the lungs. Small calcified granulomas are noted within the left upper lobe. No pleural effusions. No acute skeletal or soft tissue abnormalities. IMPRESSION: 1. There is mild diffuse interstitial prominence. This could be related to edema or infection. Please correlate clinically. at 1258 Reported and signed by: Randal Irizarry MD CC: Gray Marvin MD Technologist: Justino Chaudhari Time: DAP (Gy m2): Air Kerma (mGy): Trscr Dt/Tm: 04/06/2021(1258) by:[email or web address] Electronic Signature Date/Time: 04/06/2021 (5427)Orig Print D/T: S: 04/06/2021 (4871) Name: DANIELE HINKLE [facility] Phys: [place] [address] : 1950 Age: 70 Sex: [place] [address] [id number] Loc: [place].ERS Exam Date: 04/06/2021 Status: REG ER PH: FAX: PAGE 1 Signed ReportGLUBED 2021-04-06 12:44:00 Test Item Value Reference Range Interpretation Comments GLUBED (test > 600 mg/dL 65-99 CRITICAL RESULT - TESTING code = GLUBED) PERFORMED BY PRIMARY CAREGIVERIntrav enous administration of N-acetylcystein e which resultsin blood concentrations >5 mg/dL will cause overestim ationof blood glucose results . Do not use during intraven ousinfusion of N'acetylcyst eine. - XR WRIST 3 + V [id number] 15:05:00 [facility] : 1950 Sex: FPatient Name: LIZZIE HINKLE Unit No: [id number] EXAMS: CPT CODE: [id number] XR WRIST 3 + [place] [address] C3 TIME OF STUDY: 12/22/2020 1:47 PM REASON FOR EXAM: POST REDUCTION COMPARISON: December 22, 2020 FINDINGS: 3 views of the left wrist demonstrate interval reduction of left distal radial and ulnar fractures with the superimposed splint. The soft tissues and osseous structures are suboptimally evaluated secondary to superimposed splint. IMPRESSION: 1. Interval splint placement for the left distal radius and ulna fracture. at 1505 Reported and signed by: Hector Roach MD CC: Self Referred; Jameel Viera MD Technologist: Frances Chung Fluoro Time: DAP (Gy m2): Air Kerma (mGy): Trscr Dt/Tm: 12/22/2020 (1505) by:[email or web address] Electronic Signature Date/Time: 12/22/2020 (1505)Orig Print D/T: S: 12/22/2020 (4299) [facility]: [place] [address] : 1950 Age: 70 Sex: [place] [id number] Loc: [place].[facility] Exam Date: 12/22/2020 Status: REG ER PH: FAX: PAGE 1 Signed Report- XR FOREARM 2 VIEWS [id number] 13:01:00 [facility] : 1950 Sex: FPatient Name: LIZZIE HINKLE Unit No: [id number] EXAMS: CPT CODE: [id number] XR [place] [address] [place] [address] LEFT FOREARM, 2 VIEWS DICTATION LOCATION A1 HISTORY: Deformity after trauma. 2 views of the left forearm were obtained at 12:23 PM. No prior exams are available for comparison. FINDINGS: There is a transverse fractures of the distal metaphysis of the radius as well as the ulna styloid. There is mild dorsal angulation of the radius fracture and mild displacement of the ulna styloid. Soft tissue swelling is present about the wrist. The remainder of the radius and ulna are unremarkable. TheNo other acute findings are seen. IMPRESSION: Distal radius and ulnar fractures as described. at 1301 Reported and signed by: Darius Mitchell Jr, MD CC: Self Referred; Jameel Viera MD Technologist: Felix Chaudhari Time: DAP (Gy m2): Air Kerma (mGy): Trscr Dt/Tm: 12/22/2020 (1301) by:Miracle Electronic Signature Date/Time:12/22/2020 (1301)Orig Print D/T: S: 12/22/2020 (1304) Name: LIZZIE HINKLE [facility] Phys: [place] [address] : 1950 Age: 70 Sex: [place] [address] No: [id number] Loc: [place].ERS Exam Date: 12/22/2020 Status: REG ER PH: FAX: PAGE 1 Signed Report- XR ELBOW 2 VIEWS LT 2020-12-22 13:00:00 [facility] : 1950 Sex: FPatient Name: LIZZIE HINKLE Unit No: [id number] EXAMS: CPT CODE: [id number] XR [place] [address] [place] [address] LEFT ELBOW, 3 VIEWS DICTATION LOCATION A1 HISTORY: Wrist deformity after trauma. IMPRESSION: 3 views of the left elbow at 12:23 PM show no acute bone, joint or soft tissue abnormality. at 1300 Reported and signed by: Fr leydi Mitchell Jr, MD CC: Self Referred; Jameel Viera MD Technologist: Felix Chaudhari Time: DAP(Gy m2): Air Kerma (mGy): Trscr Dt/Tm: 12/22/2020 (1300) by:Miracle Electronic Signature Date/Time: 12/22/2020 (1300)Orig Print D/T: S: 12/22/2020 (1303) Name: LIZZIE HINKLE [facility] Phys: [place] [address] : 1950 Age: 70 Sex: [place] [address] No: [id number] Loc: [place].ERS Exam Date: 12/22/2020 Status: REG ER PH: FAX: PAGE 1 Signed Report- XR WRIST 3 + V [id number] 12:59:00 [facility]ZZ[facility] : 1950 Sex: FPatient Name: LIZZIE HINKLE Unit No: [id number] EXAMS: CPT CODE: [id number] XR WRIST 3 + [place] [address] LEFT WRIST, 3 VIEWS DICTATION LOCATION A1 HISTORY: Deformity after trauma. 3 views of the left wrist were obtained at 12:23 PM. No prior exams are available for comparison. FINDINGS: There is a transverse fractures of the distal metaphysis of the radius as well as the ulna styloid. There is mild dorsal angulation of the radius fracture and mild displacement of the ulna styloid. Soft tissue swelling is present about the wrist. No other acute findings are seen. IMPRESSION: Distal radius and ulnar fractures as described. [id number] Reported and signed by: Darius Mitchell Jr, MD CC: Self Referred; Jameel Viera MD Technologist: Felix Chaudhari Time: DAP (Gy m2): Air Kerma (mGy): Trscr Dt/Tm: 12/22/2020 (6621) by:Miracle Electronic Signature Date/Time: 12/22/2020 (5216)Orig Print D/T: S: 12/22/2020 (6985) Name: HINKLELIZZIEFRANCES CORTEZ [facility] [place] Phys: [place] [address] : 1950 Age: 70 Sex: [place] [address] Loc: [email or web address] Exam Date: 12/22/2020 Status:REG ER PH: FAX: PAGE 1 Signed ReportGLUBED 2020-10-02 12:02:00 Test Item Value Reference Range Interpretation Comments GLUBED (test 283 mg/dL 65-99 H Intravenous adm inistration code = GLUBED) of N-acetylcy steine which resultsin blood concentrations >5 mg/dL will cause overestim ationof blood glucose results . Do not use during intraven ousinfusion of N'acetylcyst eine. CBC W/AUTO [id number] 07:05:00 Test Item Value Reference Range Interpretation Comments WHITE BLOOD CELL (test code = 3.7 10 3/uL 4.5-11.0 L WBC) RED BLOOD CELL (test code = 3.60 10 6/uL 3.50-5.50 N RBC) HEMOGLOBIN (test code = HGB) 10.4 g/dL 12.0-16.0 L HEMATOCRIT (test code = HCT) 32.8 % 37.0-55.0 L MEAN CELL VOLUME (test code = 91 fL 81-102 N MCV) MEAN CELL HGB (test code = 28.9 pg 26.0-34.0 N MCH) MEAN CELL HGB CONCENTRATION 31.7 g/dL 31.0-37.0 N (test code = MCHC) RED CELL DISTRIBUTION WIDTH 13.5 % 11.6-14.4 N (test code = RDW) PLATELET COUNT (test code = 154 10 3/uL 150-400 N PLT) MEAN PLATELET VOLUME (test 10.8 fL 9.0-12.6 N code = MPV) NEUTROPHIL % (test code = NT%) 37.1 % 33.0-76.0 N IMMATURE GRANULOCYTE % (test 0.3 % 0.0-1.0 N code = IG%) LYMPHOCYTE % (test code = LY%) 46.2 % 14.0-56.4 N MONOCYTE % (test code = MO%) 11.2 % 0.0-12.9 N EOSINOPHIL % (test code = EO%) 4.1 % 0.0-7.0 N BASOPHIL % (test code = BA%) 1.1 % 0-2.0 N NUCLEATED RBC % (test code = 0.0 % 0-0.2 N NRBC%) NEUTROPHIL # (test code = NT#) 1.36 10 3/uL 1.5-7.0 L IMMATURE GRANULOCYTE # (test 0.010 x10 3/uL 0.000-0.100 N code = IG#) LYMPHOCYTE # (test code = LY#) 1.69 10 3/uL 1.50-4.00 N MONOCYTE # (test code = MO#) 0.41 10 3/uL 0.20-0.80 N EOSINOPHIL # (test code = EO#) 0.15 10 3/uL 0.0-0.5 N BASOPHIL # (test code = BA#) 0.04 10 3/uL 0.0-0.1 N BASIC METABOLIC [id number] 06:58:00 Test Item Value Reference Range Interpretation Comments SODIUM (test code 141 mmol/L 135-145 N = NA) POTASSIUM (test 3.8 mmol/L 3.5-5.1 N code = K) CHLORIDE (test 108 mmol/L 98-107 H code = CL) CARBON DIOXIDE 29 mmol/L 21-32 N (test code = CO2) ANION GAP (test 7.8 2.0-16.0 N code = GAP) GLUCOSE (test code 120 mg/dL 65-99 H = GLU) BLOOD UREA 13 mg/dL 4-23 N NITROGEN (test code = BUN) GLOMERULAR >=60 max >60 The estimated FILTRATION RATE estimate ml/min glomerula r (test code = GFR) filtration rate is computed usingpatient ra ce, age (>18), sex, and serum creatinin e. If anyof the neede d data elements a re missing the Laboratory olivier ot compute an estimation of t he glomerular filtration rate . CREATININE (test 1.0 mg/dL 0.6-1.5 N code = CREAT) BUN/CREATININE 13.0 12.0-20.0 N RATIO (test code = BUN/CREA) CALCIUM (test code 8.1 mg/dL 8.5-10.1 L = CA) [id number] 06:58:00 Test Item Value Reference Range Interpretation Comments PHOSPHOROUS (test code = PHOS) 3.3 mg/dL 2.5-4.9 N [id number] 06:58:00 Test Item Value Reference Range Interpretation Comments MAGNESIUM (test code = MAG) 2.0 mg/dL 1.8-2.4 N [id number] 05:48:00 Test Item Value Reference Range Interpretation Comments GLUBED (test 134 mg/dL 65-99 H Intravenous adm inistration code = GLUBED) of N-acetylcy steine which resultsin blood concentrations >5 mg/dL will cause overestim ationof blood glucose results . Do not use during intraven ousinfusion of N'acetylcyst eine. [id number] 01:17:00 Test Item Value Reference Range Interpretation Comments POTASSIUM (test code = K) 3.8 mmol/L 3.5-5.1 N Spec Comments: While on insulin dripComments to Phleb: Increase to Q 1hour if less than [id number] 20:27:00 Test Item Value Reference Range Interpretation Comments GLUBED (test 143 mg/dL 65-99 H Intravenous adm inistration code = GLUBED) of N-acetylcy steine which resultsin blood concentrations >5 mg/dL will cause overestim ationof blood glucose results . Do not use during intraven ousinfusion of N'acetylcyst eine. BASIC METABOLIC [id number] 18:29:00 Test Item Value Reference Range Interpretation Comments SODIUM (test code 140 mmol/L 135-145 N = NA) POTASSIUM (test 3.7 mmol/L 3.5-5.1 N code = K) CHLORIDE (test 109 mmol/L 98-107 H code = CL) CARBON DIOXIDE 28 mmol/L 21-32 N (test code = CO2) ANION GAP (test 6.7 2.0-16.0 N code = GAP) GLUCOSE (test code 93 mg/dL 65-99 N = GLU) BLOOD UREA 14 mg/dL 4-23 N NITROGEN (test code = BUN) GLOMERULAR >=60 max >60 The estimated FILTRATION RATE estimate ml/min glomerula r (test code = GFR) filtration rate is computed usingpatient ra ce, age (>18), sex, and serum creatinin e. If anyof the neede d data elements a re missing the Laboratory olivier ot compute an estimation of t he glomerular filtration rate . CREATININE (test 1.0 mg/dL 0.6-1.5 N code = CREAT) BUN/CREATININE 14.0 12.0-20.0 N RATIO (test code = BUN/CREA) CALCIUM (test code 7.2 mg/dL 8.5-10.1 L = CA) [id number] 18:29:00 Test Item Value Reference Range Interpretation Comments PHOSPHOROUS (test code = PHOS) 2.7 mg/dL 2.5-4.9 N [id number] 18:29:00 Test Item Value Reference Range Interpretation Comments MAGNESIUM (test code = MAG) 1.8 mg/dL 1.8-2.4 N [id number] 17:49:00 Test Item Value Reference Range Interpretation Comments GLUBED (test 94 mg/dL 65-99 N Intravenous adm inistration of code = GLUBED) N-acetylcyste ine which resultsin blood concentrations >5 mg/dL will cause overestim ationof blood glucose results . Do not use during intraven ousinfusion of N'acetylcystein e. - DUP LE ART [id number] 14:46:00 [facility] LIZZIE HINKLE : 1950 Sex: FPatient Name: LIZZIE HINKLE Unit No: [id number] EXAMS: CPT CODE: [id number] [facility] [address] Exam: Lower extremity arterial Doppler ultrasound, bilateral Location: A1 HISTORY: Peripheral artery disease, , COMPARISON: None available TECHNIQUE: Static, grayscale, color Doppler and spectralimages of the bilateral lower extremities were obtained. FINDINGS: No significant stenosis or plaque is identified on bates scale imaging. Peak systolic velocities in cm/s and waveforms are as follows:Right: Common femoral: 85 , Triphasic Superficial femoral: 65-83, triphasic changing to monophasic Deep femoral: 69, triphasic Popliteal: 75, Monophasic Posterior tibial: 77, Monophasic Anterior tibial: 25, Monophasic Peroneal: 85, Monophasic Dorsalis pedis: 18, Monophasic Ankle brachial index: 1.1 Left: Common femoral: 86 , Triphasic Superficial femoral: 81-1 30, Triphasic Deep femoral: 71, triphasic Popliteal: 77, Triphasic Posterior tibial: 68, Monophasic Anterior tibial: 36, Monophasic Peroneal: 52, Monophasic Dorsalis pedis: 29, Monophasic Ankle brachial index: 1.0 IMPRESSION: 1.Change from tr iphasic to monophasic waveforms in the right femoral artery and at the left lower leg below the popliteal artery suggesting stenosis. 2. Ankle brachial indices are still within normal limits. at 1446 Reported and signed by: Juan Jose Jacinto MD Name: LIZZIE HINKLE [facility] Phys: [place] [address] :1950 Age: 70 [place]: [place] [id number] Loc: NC.5104 1 Exam Date: 10/01/2020 Status: ADM IN PH: FAX: PAGE 1 Signed Report (CONTINUED) Patient Name: LIZZIE HINKLE Unit No:[id number] EXAMS: CPT CODE: [id number] DUP LE ART DELMY [address] <Continued> CC: Self Referred; Kenneth Gonzalez MD; Britney Winchester DO Technologist: Sailaja Emery Probe: Trscr Dt/Tm: 10/01/2020(1446) by:[email or web address] Electronic Signature Date/Time: 10/01/2020 (1446)Orig Print D/T: S: 10/01/2020 (4418) Name: LIZZIE HINKLE [facility] [place] Phys: Kenneth Fel[place] [id number] : 1950 Age: 70 Sex: [place] [id number] Loc: NC.5104 1 Exam Date: 10/01/2020 Status: ADM IN PH: FAX: PAGE 2 Signed [id number] 11:50:00 Test Item Value Reference Range Interpretation Comments GLUBED (test 127 mg/dL 65-99 H Intravenous adm inistration code = GLUBED) of N-acetylcy steine which resultsin blood concentrations >5 mg/dL will cause overestim ationof blood glucose results . Do not use during intraven ousinfusion of N'acetylcyst eine. BASIC METABOLIC [id number] 08:05:00 Test Item Value Reference Range Interpretation Comments SODIUM (test code 139 mmol/L 135-145 N = NA) POTASSIUM (test 3.5 mmol/L 3.5-5.1 N code = K) CHLORIDE (test 109 mmol/L 98-107 H code = CL) CARBON DIOXIDE 25 mmol/L 21-32 N (test code = CO2) ANION GAP (test 8.5 2.0-16.0 N code = GAP) GLUCOSE (test code 115 mg/dL 65-99 H = GLU) BLOOD UREA 13 mg/dL 4-23 N NITROGEN (test code = BUN) GLOMERULAR >=60 max >60 The estimated FILTRATION RATE estimate ml/min glomerula r (test code = GFR) filtration rate is computed usingpatient ra ce, age (>18), sex, and serum creatinin e. If anyof the neede d data elements a re missing the Laboratory olivier ot compute an estimation of t he glomerular filtration rate . CREATININE (test 0.9 mg/dL 0.6-1.5 N code = CREAT) BUN/CREATININE 14.4 12.0-20.0 N RATIO (test code = BUN/CREA) CALCIUM (test code 8.4 mg/dL 8.5-10.1 L = CA) [id number] 08:05:00 Test Item Value Reference Range Interpretation Comments PHOSPHOROUS (test code = PHOS) 2.8 mg/dL 2.5-4.9 N [id number] 08:05:00 Test Item Value Reference Range Interpretation Comments MAGNESIUM (test code = MAG) 2.0 mg/dL 1.8-2.4 N [id number] 06:00:00 Test Item Value Reference Range Interpretation Comments GLUBED (test 130 mg/dL 65-99 H Intravenous adm inistration code = GLUBED) of N-acetylcy steine which resultsin blood concentrations >5 mg/dL will cause overestim ationof blood glucose results . Do not use during intraven ousinfusion of N'acetylcyst eine. [id number] 04:22:00 Test Item Value Reference Range Interpretation Comments GLUBED (test 184 mg/dL 65-99 H Intravenous adm inistration code = GLUBED) of N-acetylcy steine which resultsin blood concentrations >5 mg/dL will cause overestim ationof blood glucose results . Do not use during intraven ousinfusion of N'acetylcyst eine. [id number] 04:00:00 Test Item Value Reference Range Interpretation Comments GLUBED (test 31 mg/dL 65-99 LL CRITICAL RESULT - TESTING code = GLUBED) PERFORMED BY PRIMARY CAREGIVERIntrav enous administration of N-acetylcystein e which resultsin blood concentrations >5 mg/dL will cause overestim ationof blood glucose results . Do not use during intraven ousinfusion of N'acetylcystein e. [id number] 04:00:00 Test Item Value Reference Range Interpretation Comments GLUBED (test 27 mg/dL 65-99 LL CRITICAL RESULT - TESTING code = GLUBED) PERFORMED BY PRIMARY CAREGIVERIntrav enous administration of N-acetylcystein e which resultsin blood concentrations >5 mg/dL will cause overestim ationof blood glucose results . Do not use during intraven ousinfusion of N'acetylcystein e. BASIC METABOLIC [id number] 03:53:00 Test Item Value Reference Range Interpretation Comments SODIUM (test code 142 mmol/L 135-145 N = NA) POTASSIUM (test 3.3 mmol/L 3.5-5.1 L code = K) CHLORIDE (test 110 mmol/L 98-107 H code = CL) CARBON DIOXIDE 28 mmol/L 21-32 N (test code = CO2) ANION GAP (test 7.3 2.0-16.0 code = GAP) GLUCOSE (test code 36 mg/dL 65-99 LL Critical Value = GLU) reported toFirs t Name:GUILLERMINA morales Name:KWESI DUMONT READ BACK AND VERIFIEDby 2CCO [id number], on 10/01/20, @ 2017. BLOOD UREA 16 mg/dL 4-23 N NITROGEN (test code = BUN) GLOMERULAR >=60 max >60 The estimated FILTRATION RATE estimate ml/min glomerula r (test code = GFR) filtration rate is computed usingpatient ra ce, age (>18), sex, and serum creatinin e. If anyof the neede d data elements a re missing the Laboratory olivier ot compute an estimation of t he glomerular filtration rate . CREATININE (test 0.9 mg/dL 0.6-1.5 N code = CREAT) BUN/CREATININE 17.8 12.0-20.0 N RATIO (test code = BUN/CREA) CALCIUM (test code 7.6 mg/dL 8.5-10.1 L = CA) Spec Comments: While on insulin dripComments to Phleb: Increase to Q 1hour if less than [id number] 03:53:00 Test Item Value Reference Range Interpretation Comments PHOSPHOROUS (test code = PHOS) 3.4 mg/dL 2.5-4.9 N Spec Comments: While on insulin dripComments to Phleb: Increase to Q 1hour if less than [id number] 03:53:00 Test Item Value Reference Range Interpretation Comments MAGNESIUM (test code = MAG) 1.9 mg/dL 1.8-2.4 N Spec Comments: While on insulin dripComments to Phleb: Increase to Q 1hour if less than 3.3CBC W/AUTO [id number] 03:40:00 Test Item Value Reference Range Interpretation Comments WHITE BLOOD CELL (test code = 5.1 10 3/uL 4.5-11.0 N WBC) RED BLOOD CELL (test code = 3.22 10 6/uL 3.50-5.50 L RBC) HEMOGLOBIN (test code = HGB) 9.5 g/dL 12.0-16.0 L HEMATOCRIT (test code = HCT) 28.8 % 37.0-55.0 L MEAN CELL VOLUME (test code = 89 fL 81-102 N MCV) MEAN CELL HGB (test code = 29.5 pg 26.0-34.0 N MCH) MEAN CELL HGB CONCENTRATION 33.0 g/dL 31.0-37.0 N (test code = MCHC) RED CELL DISTRIBUTION WIDTH 13.8 % 11.6-14.4 N (test code = RDW) PLATELET COUNT (test code = 169 10 3/uL 150-400 N PLT) MEAN PLATELET VOLUME (test 11.7 fL 9.0-12.6 N code = MPV) NEUTROPHIL % (test code = NT%) 61.6 % 33.0-76.0 N IMMATURE GRANULOCYTE % (test 0.4 % 0.0-1.0 N code = IG%) LYMPHOCYTE % (test code = LY%) 25.9 % 14.0-56.4 N MONOCYTE % (test code = MO%) 10.3 % 0.0-12.9 N EOSINOPHIL % (test code = EO%) 1.4 % 0.0-7.0 N BASOPHIL % (test code = BA%) 0.4 % 0-2.0 N NUCLEATED RBC % (test code = 0.0 % 0-0.2 N NRBC%) NEUTROPHIL # (test code = NT#) 3.16 10 3/uL 1.5-7.0 N IMMATURE GRANULOCYTE # (test 0.020 x10 3/uL 0.000-0.100 N code = IG#) LYMPHOCYTE # (test code = LY#) 1.33 10 3/uL 1.50-4.00 L MONOCYTE # (test code = MO#) 0.53 10 3/uL 0.20-0.80 N EOSINOPHIL # (test code = EO#) 0.07 10 3/uL 0.0-0.5 N BASOPHIL # (test code = BA#) 0.02 10 3/uL 0.0-0.1 N THROMBOPLASTIN TIME [id number] 22:03:00 Test Item Value Reference Range Interpretation Comments THROMBOPLASTIN TIME PARTIAL 23.1 SECONDS 25.1-36.5 L (test code = PTT) BASIC METABOLIC [id number] 21:42:00 Test Item Value Reference Range Interpretation Comments SODIUM (test code 141 mmol/L 135-145 N = NA) POTASSIUM (test 3.3 mmol/L 3.5-5.1 L code = K) CHLORIDE (test 108 mmol/L 98-107 H code = CL) CARBON DIOXIDE 25 mmol/L 21-32 N (test code = CO2) ANION GAP (test 11.3 2.0-16.0 code = GAP) GLUCOSE (test code 171 mg/dL 65-99 H = GLU) BLOOD UREA 20 mg/dL 4-23 N NITROGEN (test code = BUN) GLOMERULAR >=60 max >60 The estimated FILTRATION RATE estimate ml/min glomerula r (test code = GFR) filtration rate is computed usingpatient ra ce, age (>18), sex, and serum creatinin e. If anyof the neede d data elements a re missing the Laboratory olivier ot compute an estimation of t he glomerular filtration rate . CREATININE (test 1.1 mg/dL 0.6-1.5 N code = CREAT) BUN/CREATININE 18.2 12.0-20.0 N RATIO (test code = BUN/CREA) CALCIUM (test code 6.9 mg/dL 8.5-10.1 LL Critical Value = CA) reported toFirs t Name:ISIDRO Last Name:CA RNRESULTS READ BACK AND VERIFIEDby NCLAB.[facility], on 09/30/20, @ 214 2. Spec Comments: While on insulin dripComments to Phleb: Increase to Q 1hour if less than [id number] 21:42:00 Test Item Value Reference Range Interpretation Comments PHOSPHOROUS (test code = PHOS) 4.0 mg/dL 2.5-4.9 N Spec Comments: While on insulin dripComments to Phleb: Increase to Q 1hour if less than [id number] 21:42:00 Test Item Value Reference Range Interpretation Comments MAGNESIUM (test code = MAG) 1.6 mg/dL 1.8-2.4 L Spec Comments: While on insulin dripComments to Phleb: Increase to Q 1hour if less than 3.3CBC W/AUTO [id number] 21:25:00 Test Item Value Reference Range Interpretation Comments WHITE BLOOD CELL (test code = 5.7 10 3/uL 4.5-11.0 N WBC) RED BLOOD CELL (test code = 3.09 10 6/uL 3.50-5.50 L RBC) HEMOGLOBIN (test code = HGB) 9.2 g/dL 12.0-16.0 L HEMATOCRIT (test code = HCT) 27.7 % 37.0-55.0 L MEAN CELL VOLUME (test code = 90 fL 81-102 N MCV) MEAN CELL HGB (test code = 29.8 pg 26.0-34.0 N MCH) MEAN CELL HGB CONCENTRATION 33.2 g/dL 31.0-37.0 N (test code = MCHC) RED CELL DISTRIBUTION WIDTH 13.9 % 11.6-14.4 N (test code = RDW) PLATELET COUNT (test code = 163 10 3/uL 150-400 N PLT) MEAN PLATELET VOLUME (test 10.8 fL 9.0-12.6 N code = MPV) NEUTROPHIL % (test code = NT%) 66.7 % 33.0-76.0 N IMMATURE GRANULOCYTE % (test 0.4 % 0.0-1.0 N code = IG%) LYMPHOCYTE % (test code = LY%) 22.2 % 14.0-56.4 N MONOCYTE % (test code = MO%) 9.3 % 0.0-12.9 N EOSINOPHIL % (test code = EO%) 0.9 % 0.0-7.0 N BASOPHIL % (test code = BA%) 0.5 % 0-2.0 N NUCLEATED RBC % (test code = 0.0 % 0-0.2 N NRBC%) NEUTROPHIL # (test code = NT#) 3.79 10 3/uL 1.5-7.0 N IMMATURE GRANULOCYTE # (test 0.020 x10 3/uL 0.000-0.100 N code = IG#) LYMPHOCYTE # (test code = LY#) 1.26 10 3/uL 1.50-4.00 L MONOCYTE # (test code = MO#) 0.53 10 3/uL 0.20-0.80 N EOSINOPHIL # (test code = EO#) 0.05 10 3/uL 0.0-0.5 N BASOPHIL # (test code = BA#) 0.03 10 3/uL 0.0-0.1 N [id number] 21:06:00 Test Item Value Reference Range Interpretation Comments GLUBED (test 163 mg/dL 65-99 H Intravenous adm inistration code = GLUBED) of N-acetylcy steine which resultsin blood concentrations >5 mg/dL will cause overestim ationof blood glucose results . Do not use during intraven ousinfusion of N'acetylcyst eine. [id number] 20:38:00 Test Item Value Reference Range Interpretation Comments GLUBED (test 37 mg/dL 65-99 LL CRITICAL RESULT - TESTING code = GLUBED) PERFORMED BY PRIMARY CAREGIVERIntrav enous administration of N-acetylcystein e which resultsin blood concentrations >5 mg/dL will cause overestim ationof blood glucose results . Do not use during intraven ousinfusion of N'acetylcystein e. [id number] 16:59:00 Test Item Value Reference Range Interpretation Comments GLUBED (test 75 mg/dL 65-99 N Intravenous adm inistration of code = GLUBED) N-acetylcyste ine which resultsin blood concentrations >5 mg/dL will cause overestim ationof blood glucose results . Do not use during intraven ousinfusion of N'acetylcystein e. - DUP EXTRACRANIAL [id number] 13:36:00 [facility] LIZZIE [facility]INK[facility] : 1950 Sex: FPatient Name: LIZZIE HINKLE Unit No: [id number] EXAMS: CPT CODE: [id number] DUP EXTRACRANIAL DELMY [address]7521 BILATERAL CAROTID ARTERY ULTRASOUND DICTATION LOCATION: A1 History: Carotid disease. Technique: Transcutaneous sonography of bilateral carotid systems was performed with bates scale, spectral, color-flow and Doppler analysis. No prior exams are available for comparison. Findings: Calcified at herosclerotic plaque is present on both sides. On the right, there is 36% focal narrowing of the distal common carotid artery and 26% narrowing of the carotid bulb. On the left, 26% narrowing is seen in the distal common carotid artery and 70% narrowing is noted in the bulb. No other significant atherosclerosis or vascular narrowing is present in either carotid system or either vertebral artery. Bothvertebral arteries have normal antegrade blood flow. ICA flow velocity: Right 113 cm/sec, Left 70 cm/sec. CCA flow velocity: Right 77 cm/sec, Left 98 cm/sec ICA/CCA Ratio: Right 1.5, Left 0.7 These findings indicate no hemodynamically significant abnormality on either side. IMPRESSION: 1. Mild calcified atherosclerotic plaque in both common carotid arteries and carotid bulbs causing less than 50% narrowing on each side. 2. No evidence of hemodynamically significant stenosis on either side. at 1336 Reported and signed by: Darius Mitchell Jr, MD CC: Self Referred; Kenneth Gonzalez MD; Britney Winchester DO Technologist: Sowmya Manning Probe: Trscr Dt/Tm: 09/30/2020 (1336) by:Miracle Electronic Signature Date/Time: 09/30/2020 (1336)Orig Print D/T: S: 09/30/2020 (2078) [facility] [place] [address] : 1950 Age: 70 Sex: [place] [id number] Loc: NC.IC02 A Exam Date: 09/30/2020 Status: ADM IN PH: FAX: PAGE 1 Signed [id number] 12:46:00 Test Item Value Reference Range Interpretation Comments GLUBED (test 124 mg/dL 65-99 H Intravenous adm inistration code = GLUBED) of N-acetylcy steine which resultsin blood concentrations >5 mg/dL will cause overestim ationof blood glucose results . Do not use during intraven ousinfusion of N'acetylcyst eine. [id number] 12:00:00 Test Item Value Reference Range Interpretation Comments GLUBED (test 29 mg/dL 65-99 LL CRITICAL RESULT - TESTING code = GLUBED) PERFORMED BY PRIMARY CAREGIVERIntrav enous administration of N-acetylcystein e which resultsin blood concentrations >5 mg/dL will cause overestim ationof blood glucose results . Do not use during intraven ousinfusion of N'acetylcystein e. THROMBOPLASTIN TIME [id number] 10:58:00 Test Item Value Reference Range Interpretation Comments THROMBOPLASTIN TIME PARTIAL 45.4 SECONDS 25.1-36.5 H (test code = PTT) COAGULATION TIME [id number] 10:54:00 Test Item Value Reference Range Interpretation Comments COAGULATION TIME ACTIVATED (test code = 109 74-137 N ACT) BASIC METABOLIC [id number] 09:34:00 Test Item Value Reference Range Interpretation Comments SODIUM (test code = 142 mmol/L 135-145 N NA) POTASSIUM (test code 3.8 mmol/L 3.5-5.1 N = K) CHLORIDE (test code = 110 mmol/L 98-107 H CL) CARBON DIOXIDE (test 31 mmol/L 21-32 N code = CO2) ANION GAP (test code 4.8 2.0-16.0 = GAP) GLUCOSE (test code = 67 mg/dL 65-99 N GLU) BLOOD UREA NITROGEN 35 mg/dL 4-23 H (test code = BUN) GLOMERULAR FILTRATION 44 ml/min >60 L The es timated RATE (test code = glomerular filtration GFR) rate is compute d usingpatient ra ce, age (>18), sex, and serum creatinine. If anyof the needed data elements are mi ssing the Laboratory cannot compute an raysa mation of the glomerul ar filtration rate . CREATININE (test code 1.5 mg/dL 0.6-1.5 N = CREAT) BUN/CREATININE RATIO 23.3 12.0-20.0 H (test code = BUN/CREA) CALCIUM (test code = 8.3 mg/dL 8.5-10.1 L CA) Spec Comments: While on insulin dripComments to Phleb: Increase to Q 1hour if less than [id number] 09:34:00 Test Item Value Reference Range Interpretation Comments PHOSPHOROUS (test code = PHOS) 2.1 mg/dL 2.5-4.9 L Spec Comments: While on insulin dripComments to Phleb: Increase to Q 1hour if less than [id number] 09:34:00 Test Item Value Reference Range Interpretation Comments MAGNESIUM (test code = MAG) 2.2 mg/dL 1.8-2.4 N Spec Comments: While on insulin dripComments to Phleb: Increase to Q 1hour if less than 3.3- XR CHEST 1 [id number] 08:51:00 [facility] LIZZIE [facility] : 1950 Sex: FPatient Name: LIZZIE HINKLE Unit No: [id number] EXAMS: CPT CODE: [id number] XR CHEST 1 V 41440 CHEST, SINGLE VIEW DICTATION LOCATION A1 HISTORY: Shortness of breath. A single view of the chestwas obtained at 8:22 AM. No prior exams are available for comparison. FINDINGS: Mild emphysema is present. The lungs are clear of acute infiltrate or mass. The heart and pulmonary vasculature are within normal limits. No pleural effusion is present. No free air is identified under the diaphragm. No acute skeletal abnormality is seen. IMPRESSION: Mild emphysema. No acute thoracic abnormality. at 0851 Reported and signed by: Darius Mitchell Jr, MD CC: Self Referred; Darrius Bauman MD; Britney Winchester DO Technologist: Frances Chung Fluoro Time: DAP (Gy m2): Air Kerma (mGy): Trscr Dt/Tm: 09/30/2020 (0851) by:Miracle Electronic Signature Date/Time: 09/30/2020 (08)Orig Print D/T: S: 09/30/2020 (0854) Name: HINKLELIZZIE [facility] [place] Phys: [place] [address] : 1950 Age: 70 Sex: [place] [address] Loc: NC.IC02 A Exam Date: 09/30/2020 Status: ADM IN PH: FAX: PAGE 1 Signed [id number] 07:12:00 Test Item Value Reference Range Interpretation Comments GLUBED (test 99 mg/dL 65-99 N Intravenous adm inistration of code = GLUBED) N-acetylcyste ine which resultsin blood concentrations >5 mg/dL will cause overestim ationof blood glucose results . Do not use during intraven ousinfusion of N'acetylcystein e. THROMBOPLASTIN TIME [id number] 06:39:00 Test Item Value Reference Range Interpretation Comments THROMBOPLASTIN TIME 74.8 SECONDS 25.1-36.5 HH Critical Value PARTIAL (test code = reporte d toFirst PTT) Name:BRENNON Last Name:TAB PEDERSEN Parag READ BACK AND VERIFIEDby [id number], on 09/30/20, @ 063 9. BASIC METABOLIC [id number] 05:51:00 Test Item Value Reference Range Interpretation Comments SODIUM (test code = 140 mmol/L 135-145 N NA) POTASSIUM (test code 3.7 mmol/L 3.5-5.1 N = K) CHLORIDE (test code = 108 mmol/L 98-107 H CL) CARBON DIOXIDE (test 29 mmol/L 21-32 N code = CO2) ANION GAP (test code 6.7 2.0-16.0 N = GAP) GLUCOSE (test code = 174 mg/dL 65-99 H GLU) BLOOD UREA NITROGEN 40 mg/dL 4-23 H (test code = BUN) GLOMERULAR FILTRATION 36 ml/min >60 L The es timated RATE (test code = glomerular filtration GFR) rate is compute d usingpatient ra ce, age (>18), sex, and serum creatinine. If anyof the needed data elements are mi ssing the Laboratory cannot compute an raysa mation of the glomerul ar filtration rate . CREATININE (test code 1.8 mg/dL 0.6-1.5 H = CREAT) BUN/CREATININE RATIO 22.2 12.0-20.0 H (test code = BUN/CREA) CALCIUM (test code = 7.9 mg/dL 8.5-10.1 L CA) Spec Comments: While on insulin dripComments to Phleb: Increase to Q 1hour if less than [id number] 05:51:00 Test Item Value Reference Range Interpretation Comments PHOSPHOROUS (test code = PHOS) 2.0 mg/dL 2.5-4.9 L Spec Comments: While on insulin dripComments to Phleb: Increase to Q 1hour if less than [id number] 05:51:00 Test Item Value Reference Range Interpretation Comments MAGNESIUM (test code = MAG) 2.1 mg/dL 1.8-2.4 N Spec Comments: While on insulin dripComments to Phleb: Increase to Q 1hour if less than [id number] 05:51:00 Test Item Value Reference Range Interpretation Comments TROPONIN-I (test 5.89 ng/mL 0.00-0.07 Critical Va lue reported code = TROPI) toFirst Name:Jennifer NAVARRO RN RESULTS READ CHAPARRITA GIRARD AND VERIFIEDby CARRI WOODARD, on 09/30/20, @ 055 1. Spec Comments: While on insulin dripComments to Phleb: Increase to Q 1hour if less than 3.3CBC W/AUTO [id number] 05:28:00 Test Item Value Reference Range Interpretation Comments WHITE BLOOD CELL (test code = 9.0 10 3/uL 4.5-11.0 N WBC) RED BLOOD CELL (test code = 3.10 10 6/uL 3.50-5.50 L RBC) HEMOGLOBIN (test code = HGB) 9.1 g/dL 12.0-16.0 L HEMATOCRIT (test code = HCT) 27.4 % 37.0-55.0 L MEAN CELL VOLUME (test code = 88 fL 81-102 MCV) MEAN CELL HGB (test code = 29.4 pg 26.0-34.0 N MCH) MEAN CELL HGB CONCENTRATION 33.2 g/dL 31.0-37.0 N (test code = MCHC) RED CELL DISTRIBUTION WIDTH 13.4 % 11.6-14.4 N (test code = RDW) PLATELET COUNT (test code = 173 10 3/uL 150-400 N PLT) MEAN PLATELET VOLUME (test 11.4 fL 9.0-12.6 N code = MPV) NEUTROPHIL % (test code = NT%) 75.0 % 33.0-76.0 N IMMATURE GRANULOCYTE % (test 0.6 % 0.0-1.0 N code = IG%) LYMPHOCYTE % (test code = LY%) 13.3 % 14.0-56.4 L MONOCYTE % (test code = MO%) 10.4 % 0.0-12.9 N EOSINOPHIL % (test code = EO%) 0.4 % 0.0-7.0 N BASOPHIL % (test code = BA%) 0.3 % 0-2.0 N NUCLEATED RBC % (test code = 0.0 % 0-0.2 N NRBC%) NEUTROPHIL # (test code = NT#) 6.75 10 3/uL 1.5-7.0 N IMMATURE GRANULOCYTE # (test 0.050 x10 3/uL 0.000-0.100 N code = IG#) LYMPHOCYTE # (test code = LY#) 1.20 10 3/uL 1.50-4.00 L MONOCYTE # (test code = MO#) 0.94 10 3/uL 0.20-0.80 H EOSINOPHIL # (test code = EO#) 0.04 10 3/uL 0.0-0.5 N BASOPHIL # (test code = BA#) 0.03 10 3/uL 0.0-0.1 N [id number] 02:59:00 Test Item Value Reference Range Interpretation Comments GLUBED (test 224 mg/dL 65-99 H Intravenous adm inistration code = GLUBED) of N-acetylcy steine which resultsin blood concentrations >5 mg/dL will cause overestim ationof blood glucose results . Do not use during intraven ousinfusion of N'acetylcyst eine. BASIC METABOLIC [id number] 02:28:00 Test Item Value Reference Range Interpretation Comments SODIUM (test code = 142 mmol/L 135-145 N NA) POTASSIUM (test code 3.8 mmol/L 3.5-5.1 N = K) CHLORIDE (test code = 110 mmol/L 98-107 H CL) CARBON DIOXIDE (test 29 mmol/L 21-32 N code = CO2) ANION GAP (test code 6.8 2.0-16.0 N = GAP) GLUCOSE (test code = 58 mg/dL 65-99 L GLU) BLOOD UREA NITROGEN 42 mg/dL 4-23 H (test code = BUN) GLOMERULAR FILTRATION 39 ml/min >60 L The es timated RATE (test code = glomerular filtration GFR) rate is compute d usingpatient ra ce, age (>18), sex, and serum creatinine. If anyof the needed data elements are mi ssing the Laboratory cannot compute an raysa mation of the glomerul ar filtration rate . CREATININE (test code 1.7 mg/dL 0.6-1.5 H = CREAT) BUN/CREATININE RATIO 24.7 12.0-20.0 H (test code = BUN/CREA) CALCIUM (test code = 8.2 mg/dL 8.5-10.1 L CA) Spec Comments: While on insulin dripComments to Phleb: Increase to Q 1hour if less than [id number] 02:28:00 Test Item Value Reference Range Interpretation Comments PHOSPHOROUS (test code = PHOS) 2.1 mg/dL 2.5-4.9 L Spec Comments: While on insulin dripComments to Phleb: Increase to Q 1hour if less than [id number] 02:28:00 Test Item Value Reference Range Interpretation Comments MAGNESIUM (test code = MAG) 2.2 mg/dL 1.8-2.4 N Spec Comments: While on insulin dripComments to Phleb: Increase to Q 1hour if less than [id number] - GLYCOSYLATED [id number] 02:07:00 Test Item Value Reference Range Interpretation Comments GLYCOSYLATED 15.5 % 4.8-5.6 H The [place] HEMOGLOBIN (HA1C) Associatio n recommends a (test code = GLYHGB) therape uticrange of <7.0% Hemoglobin A1c for patients with diabetesmellitu s (Type 2 diabetes). Pre diabetes: 5.7 - 6.4 Diabe susan: >6.4 Glycemic contro l for adults with tati betes: <7.0Performed A t: HD [facility] [address] [id number] Donta Lambert MD Ph:[phone] RESULT VERY HIGH TO BE SENT OUT - NEEDS TO BE RECOLECTEDBASI METABOLIC PANEL 2020-09-29 22:36:00 Test Item Value Reference Range Interpretation Comments SODIUM (test code = 140 mmol/L 135-145 N NA) POTASSIUM (test code 4.1 mmol/L 3.5-5.1 N = K) CHLORIDE (test code = 109 mmol/L 98-107 H CL) CARBON DIOXIDE (test 29 mmol/L 21-32 N code = CO2) ANION GAP (test code 6.1 2.0-16.0 N = GAP) GLUCOSE (test code = 124 mg/dL 65-99 H GLU) BLOOD UREA NITROGEN 44 mg/dL 4-23 H (test code = BUN) GLOMERULAR FILTRATION 36 ml/min >60 L The es timated RATE (test code = glomerular filtration GFR) rate is compute d usingpatient ra ce, age (>18), sex, and serum creatinine. If anyof the needed data elements are mi ssing the Laboratory cannot compute an raysa mation of the glomerul ar filtration rate . CREATININE (test code 1.8 mg/dL 0.6-1.5 H = CREAT) BUN/CREATININE RATIO 24.4 12.0-20.0 H (test code = BUN/CREA) CALCIUM (test code = 8.2 mg/dL 8.5-10.1 L CA) Spec Comments: While on insulin dripComments to Phleb: Increase to Q 1hour if less than [id number] 22:36:00 Test Item Value Reference Range Interpretation Comments PHOSPHOROUS (test code = PHOS) 2.2 mg/dL 2.5-4.9 L Spec Comments: While on insulin dripComments to Phleb: Increase to Q 1hour if less than [id number] 22:36:00 Test Item Value Reference Range Interpretation Comments MAGNESIUM (test code = MAG) 2.2 mg/dL 1.8-2.4 N Spec Comments: While on insulin dripComments to Phleb: Increase to Q 1hour if less than 3.3THROMBOPLASTIN TIME [id number] 22:32:00 Test Item Value Reference Range Interpretation Comments THROMBOPLASTIN TIME 93.1 SECONDS 25.1-36.5 HH Critical Value PARTIAL (test code = reporte d toFirst PTT) Name:LUZ MARINA morales Name:Melissa DAVIS READ BACK AND VERIFIEDby NCLAB.RS, on 09/29/20, @ 223 2. [id number] 21:33:00 Test Item Value Reference Range Interpretation Comments GLUBED (test 139 mg/dL 65-99 H Intravenous adm inistration code = GLUBED) of N-acetylcy steine which resultsin blood concentrations >5 mg/dL will cause overestim ationof blood glucose results . Do not use during intraven ousinfusion of N'acetylcyst eine. [id number] 20:14:00 Test Item Value Reference Range Interpretation Comments GLUBED (test 157 mg/dL 65-99 H Intravenous adm inistration code = GLUBED) of N-acetylcy steine which resultsin blood concentrations >5 mg/dL will cause overestim ationof blood glucose results . Do not use during intraven ousinfusion of N'acetylcyst eine. [id number] 19:42:00 Test Item Value Reference Range Interpretation Comments POTASSIUM (test code = K) 4.2 mmol/L 3.5-5.1 N Spec Comments: While on insulin dripComments to Phleb: Increase to Q 1hour if less than [id number] 19:21:00 Test Item Value Reference Range Interpretation Comments GLUBED (test 149 mg/dL 65-99 H Intravenous adm inistration code = GLUBED) of N-acetylcy steine which resultsin blood concentrations >5 mg/dL will cause overestim ationof blood glucose results . Do not use during intraven ousinfusion of N'acetylcyst eine. [id number] 18:41:00 Test Item Value Reference Range Interpretation Comments GLUBED (test 190 mg/dL 65-99 H Intravenous adm inistration code = GLUBED) of N-acetylcy steine which resultsin blood concentrations >5 mg/dL will cause overestim ationof blood glucose results . Do not use during intraven ousinfusion of N'acetylcyst eine. BASIC METABOLIC [id number] 17:47:00 Test Item Value Reference Range Interpretation Comments SODIUM (test code = 139 mmol/L 135-145 N NA) POTASSIUM (test code 4.2 mmol/L 3.5-5.1 N = K) CHLORIDE (test code = 108 mmol/L 98-107 H CL) CARBON DIOXIDE (test 28 mmol/L 21-32 N code = CO2) ANION GAP (test code 7.2 2.0-16.0 N = GAP) GLUCOSE (test code = 172 mg/dL 65-99 H GLU) BLOOD UREA NITROGEN 48 mg/dL 4-23 H (test code = BUN) GLOMERULAR FILTRATION 32 ml/min >60 L The es timated RATE (test code = glomerular filtration GFR) rate is compute d usingpatient ra ce, age (>18), sex, and serum creatinine. If anyof the needed data elements are mi ssing the Laboratory cannot compute an raysa mation of the glomerul ar filtration rate . CREATININE (test code 2.0 mg/dL 0.6-1.5 H = CREAT) BUN/CREATININE RATIO 24.0 12.0-20.0 H (test code = BUN/CREA) CALCIUM (test code = 8.0 mg/dL 8.5-10.1 L CA) Spec Comments: While on insulin dripComments to Phleb: Increase to Q 1hour if less than [id number] 17:47:00 Test Item Value Reference Range Interpretation Comments PHOSPHOROUS (test code = PHOS) 2.8 mg/dL 2.5-4.9 N Spec Comments: While on insulin dripComments to Phleb: Increase to Q 1hour if less than [id number] 17:47:00 Test Item Value Reference Range Interpretation Comments MAGNESIUM (test code = MAG) 2.1 mg/dL 1.8-2.4 N Spec Comments: While on insulin dripComments to Phleb: Increase to Q 1hour if less than [id number] 17:06:00 Test Item Value Reference Range Interpretation Comments GLUBED (test 170 mg/dL 65-99 H Intravenous adm inistration code = GLUBED) of N-acetylcy steine which resultsin blood concentrations >5 mg/dL will cause overestim ationof blood glucose results . Do not use during intraven ousinfusion of N'acetylcyst eine. THROMBOPLASTIN TIME [id number] 16:35:00 Test Item Value Reference Range Interpretation Comments THROMBOPLASTIN TIME PARTIAL 59.3 SECONDS 25.1-36.5 H (test code = PTT) [id number] 16:17:00 Test Item Value Reference Range Interpretation Comments TROPONIN-I (test 9.64 ng/mL 0.00-0.07 HH Critical Va lue reported code = TROPI) toFirst Name:Jennifer ALAN Last Name:NOEL ARITA RESULTS READ BACK AND V ERIFIEDby NCLAB.JQ, on , @ 3484. BASIC METABOLIC [id number] 16:09:00 Test Item Value Reference Range Interpretation Comments SODIUM (test code = 143 mmol/L 135-145 N NA) POTASSIUM (test code 3.9 mmol/L 3.5-5.1 N = K) CHLORIDE (test code = 111 mmol/L 98-107 H CL) CARBON DIOXIDE (test 27 mmol/L 21-32 N code = CO2) ANION GAP (test code 8.9 2.0-16.0 = GAP) GLUCOSE (test code = 74 mg/dL 65-99 GLU) BLOOD UREA NITROGEN 48 mg/dL 4-23 H (test code = BUN) GLOMERULAR FILTRATION 32 ml/min >60 L The es timated RATE (test code = glomerular filtration GFR) rate is compute d usingpatient ra ce, age (>18), sex, and serum creatinine. If anyof the needed data elements are mi ssing the Laboratory cannot compute an raysa mation of the glomerul ar filtration rate . CREATININE (test code 2.0 mg/dL 0.6-1.5 H = CREAT) BUN/CREATININE RATIO 24.0 12.0-20.0 H (test code = BUN/CREA) CALCIUM (test code = 8.1 mg/dL 8.5-10.1 L CA) Spec Comments: While on insulin dripComments to Phleb: Increase to Q 1hour if less than [id number] 16:09:00 Test Item Value Reference Range Interpretation Comments PHOSPHOROUS (test code = PHOS) 2.2 mg/dL 2.5-4.9 L Spec Comments: While on insulin dripComments to Phleb: Increase to Q 1hour if less than [id number] 16:09:00 Test Item Value Reference Range Interpretation Comments MAGNESIUM (test code = MAG) 2.2 mg/dL 1.8-2.4 N Spec Comments: While on insulin dripComments to Phleb: Increase to Q 1hour if less than [id number] 16:08:00 Test Item Value Reference Range Interpretation Comments GLUBED (test 103 mg/dL 65-99 H Intravenous adm inistration code = GLUBED) of N-acetylcy steine which resultsin blood concentrations >5 mg/dL will cause overestim ationof blood glucose results . Do not use during intraven ousinfusion of N'acetylcyst eine. LACTIC [id number] 16:01:00 Test Item Value Reference Range Interpretation Comments LACTIC ACID (test code = LACT) 2.0 mmol/L 0.4-2.0 N [id number] 15:32:00 Test Item Value Reference Range Interpretation Comments GLUBED (test 78 mg/dL 65-99 N Intravenous adm inistration of code = GLUBED) N-acetylcyste ine which resultsin blood concentrations >5 mg/dL will cause overestim ationof blood glucose results . Do not use during intraven ousinfusion of N'acetylcystein e. [id number] 14:53:00 Test Item Value Reference Range Interpretation Comments GLUBED (test 83 mg/dL 65-99 N Intravenous adm inistration of code = GLUBED) N-acetylcyste ine which resultsin blood concentrations >5 mg/dL will cause overestim ationof blood glucose results . Do not use during intraven ousinfusion of N'acetylcystein e. [id number] 13:57:00 Test Item Value Reference Range Interpretation Comments GLUBED (test 115 mg/dL 65-99 H Intravenous adm inistration code = GLUBED) of N-acetylcy steine which resultsin blood concentrations >5 mg/dL will cause overestim ationof blood glucose results . Do not use during intraven ousinfusion of N'acetylcyst eine. UR PROTEIN [id number] 13:15:00 Test Item Value Reference Range Interpretation Comments UR PROTEIN RANDOM 65 mg/dL NO REFEREN CE RANGE (test code = PROTU) ESTABLIS HED FOR RANDOM URINE PROTEIN UR CREATININE [id number] 13:15:00 Test Item Value Reference Range Interpretation Comments UR CREATININE RANDOM 70 mg/dL 20-370 N NO REFE RENCE RANGE (test code = CREATU) AVAILAB LE FOR RANDOM CREATININE UA RFLX MICR CULT IF [id number] 12:56:00 Test Item Value Reference Range Interpretation Comments UA COLOR (test code = COLU) YELLOW YELLOW UA APPEARANCE (test code = Slightly-Cloudy CLEAR APPU) UA GLUCOSE DIPSTICK (test 3+ NEGATIVE A code = DGLUU) UA BILIRUBIN DIPSTICK (test NEGATIVE NEGATIVE code = BILU) UA KETONE DIPSTICK (test code 1+ NEGATIVE A = KETU) UA SPECIFIC GRAVITY (test 1.017 1.005-1.025 N code = SGU) UA BLOOD DIPSTICK (test code 2+ NEGATIVE A = EVELIN) UA PH DIPSTICK (test code = 5.0 5.0-8.0 KALEY) UA PROTEIN DIPSTICK (test 1+ NEGATIVE A code = PROU) UA UROBILINOGEN DIPSTICK NEGATIVE EU/dL 0.1-0.2 (test code = URO) UA NITRITE DIPSTICK (test NEGATIVE NEGATIVE code = EDMUND) UA LEUKOCYTE ESTERASE TRACE NEGATIVE A DIPSTICK (test code = LEUU) UA MICROSCOPIC NEEDED? (test YES NO A code = UAMICRO) UA WBC (test code = WBCU) 31-50 /hpf 0-3 A UA RBC (test code = RBCU) 0-2 /hpf 0-3 UA BACTERIA (test code = RARE /HPF NEGATIVE BACU) UA SQUAMOUS CELLS (test code RARE /HPF FEW = SQU) UA HYALINE CAST (test code = 2-5 /lpf NONE SEEN HYALU) UA MUCUS (test code = MUCU) OCCASIONAL /lpf Indication for culture: RiskForSepsis-no oth srcSpecimen Description: Clean [id number] 12:24:00 Test Item Value Reference Range Interpretation Comments GLUBED (test 150 mg/dL 65-99 H Intravenous adm inistration code = GLUBED) of N-acetylcy steine which resultsin blood concentrations >5 mg/dL will cause overestim ationof blood glucose results . Do not use during intraven ousinfusion of N'acetylcyst eine. BASIC METABOLIC [id number] 11:41:00 Test Item Value Reference Range Interpretation Comments SODIUM (test code = 139 mmol/L 135-145 N NA) POTASSIUM (test code 3.9 mmol/L 3.5-5.1 N = K) CHLORIDE (test code = 105 mmol/L 98-107 N CL) CARBON DIOXIDE (test 21 mmol/L 21-32 N code = CO2) ANION GAP (test code 16.9 2.0-16.0 H = GAP) GLUCOSE (test code = 319 mg/dL 65-99 H GLU) BLOOD UREA NITROGEN 56 mg/dL 4-23 H (test code = BUN) GLOMERULAR FILTRATION 26 ml/min >60 L The es timated RATE (test code = glomerular filtration GFR) rate is compute d usingpatient ra ce, age (>18), sex, and serum creatinine. If anyof the needed data elements are mi ssing the Laboratory cannot compute an raysa mation of the glomerul ar filtration rate . CREATININE (test code 2.4 mg/dL 0.6-1.5 H = CREAT) BUN/CREATININE RATIO 23.3 12.0-20.0 H (test code = BUN/CREA) CALCIUM (test code = 8.2 mg/dL 8.5-10.1 L CA) Spec Comments: While on insulin dripComments to Phleb: Increase to Q 1hour if less than 3.3LIPID PROFILE (CORONARY RISK)2020-09-29 11:41:00 Test Item Value Reference Range Interpretation Comments TRIGLYCERIDES (test 209 mg/dL 0-149 H code = TRIG) CHOLESTEROL (test code 296 mg/dL 0-200 H = CHOL) CHOLESTEROL/HDL RATIO 5 1-6 N (test code = CHOLHDL) HDL CHOLESTEROL (test 64 mg/dL 40-60 H Accord ing to the code = HDL) [facility] ([facility]) an d theNational Cholesterol Edu cation Program (NCEP), an HDLcholesterol >or= 60mg/dL counts as a "negative" risk factor;its pres ence removes one ris k factor from the total count. LIPOPROTEIN LDL (test 170 mg/dL 0-100 H code = LDLC) Spec Comments: While on insulin dripComments to Phleb: Increase to Q 1hour if less than [id number] 11:41:00 Test Item Value Reference Range Interpretation Comments PHOSPHOROUS (test code = PHOS) 3.1 mg/dL 2.5-4.9 N Spec Comments: While on insulin dripComments to Phleb: Increase to Q 1hour if less than [id number] 11:41:00 Test Item Value Reference Range Interpretation Comments AMYLASE (test code = MINOO) 51 U/L 25-115 N Spec Comments: While on insulin dripComments to Phleb: Increase to Q 1hour if less than [id number] 11:41:00 Test Item Value Reference Range Interpretation Comments LIPASE (test code = LIP) 211 U/L 73-393 N Spec Comments: While on insulin dripComments to Phleb: Increase to Q 1hour if less than [id number] 11:41:00 Test Item Value Reference Range Interpretation Comments MAGNESIUM (test code = MAG) 2.3 mg/dL 1.8-2.4 N Spec Comments: While on insulin dripComments to Phleb: Increase to Q 1hour if less than 3.3T3 [id number] 11:41:00 Test Item Value Reference Range Interpretation Comments T3 UPTAKE (test code = T3UP) 37.0 % 31.0-39.0 N Spec Comments: While on insulin dripComments to Phleb: Increase to Q 1hour if less than 3.3T4 (THYROXINE)2020-09-29 11:41:00 Test Item Value Reference Range Interpretation Comments T4 (THYROXINE) (test code = T4) 5.7 ug/dL 4.7-11.4 N Spec Comments: While on insulin dripComments to Phleb: Increase to Q 1hour if less than 3.3THYROID STIMULATING [id number] 11:41:00 Test Item Value Reference Range Interpretation Comments THYROID STIMULATING HORMONE (test 0.41 mIU/mL 0.36-3.74 N code = TSH) Spec Comments: While on insulin dripComments to Phleb: Increase to Q 1hour if less than [id number] 11:41:00 Test Item Value Reference Range Interpretation Comments TROPONIN-I (test 6.07 ng/mL 0.00-0.07 HH Critical Va lue reported code = TROPI) toFirst Name:Jennifer PEREZ Last Name:ZAIN PHU READ BACK AND Mat Fajardo [id number], on , @ 1138. Spec Comments: While on insulin dripComments to Phleb: Increase to Q 1hour if less than 3.3LACTIC [id number] 11:38:00 Test Item Value Reference Range Interpretation Comments LACTIC ACID (test 2.1 mmol/L 0.4-2.0 H Elevated L actate code = LACT) reported to the following Caregiver:Full Name/Title: ALEXA VASQUEZ ELIGIOabbey [id number], on 09/29/20, @ 113 8 [id number] 11:36:00 Test Item Value Reference Range Interpretation Comments GLUBED (test 196 mg/dL 65-99 H Intravenous adm inistration code = GLUBED) of N-acetylcy steine which resultsin blood concentrations >5 mg/dL will cause overestim ationof blood glucose results . Do not use during intraven ousinfusion of N'acetylcyst eine. - RETRO [id number] 10:31:00 [facility] CYPRESSName: LIZZIE HINKLE : 1950 Sex: FPatient Name: LIZZIE HINKLE Unit No: [id number] EXAMS: CPT CODE: [id number] [facility] [id number] EXAM: Ultrasound renal LOCATION: A1 HISTORY: Acute kidney injury TECHNIQUE: Grayscale B-mode and color Doppler sonographic images of the kidneys were performed. Dedicated grayscale B-mode and color Doppler pelvic imaging of the urinary bladder was also performed. COMPARISON: None available FINDINGS: The right kidney measures 10.1 x 3.1 x 5.9 cm. No hydronephrosis. Simple cyst is identified at the inferior pole the right kidney measuring 0.7 x 0.6 x 0.8 cm The left kidney measures 10.0 x 3.8 x 5.0 cm. No hydronephrosis. No focal lesions. The urinary bladder volume is 445 mL. No focal wall thickening is seen. IMPRESSION: 1. Small right simple cyst. No hydronephrosis is seen. 2. Distended urinarybladder. Recommend correlation for clinical symptoms of urinary retention. at 1031 Reported and signed by: Gila Valiente M.D. CC: Self Referred; Chad Paulson MD; Britney Winchester DO Technologist: [employer] Probe: Trscr Dt/Tm: 09/29/2020 (1031) by:[email or web address] Electronic Signature Date/Time: 09/29/2020 (1031)OrigPrint D/T: S: 09/29/2020 (1034) Name: LIZZIE HINKLE [facility] [place] Phys: [place] [address] : 1950 Age: 70 Sex: [place] [id number] Loc: NC.IC02 A Exam Date: 09/29/2020 Status: ADM IN PH: FAX: PAGE 1 Signed [id number] 10:26:00 Test Item Value Reference Range Interpretation Comments GLUBED (test 237 mg/dL 65-99 H Intravenous adm inistration code = GLUBED) of N-acetylcy steine which resultsin blood concentrations >5 mg/dL will cause overestim ationof blood glucose results . Do not use during intraven ousinfusion of N'acetylcyst eine. PROTHROMBIN [id number] 10:20:00 Test Item Value Reference Range Interpretation Comments PROTHROMBIN TIME 9.5 SECONDS 9.4-12.5 N PATIENT (test code = PTP) INTERNATIONAL 0.8 RATIO 0.8-1.1 N THE INR IS USE FUL ONLY NORMAL RATIO (test FOR MONIT ORING code = INR) ANTICOAGULANT T HERAPY.IT MAY BE UNRELIAB LE IN THE INITIAL PHASE O F ANTICOAGULATION AND IN UNSTABLE PATIEN TS. 2.0-3.0 is the recommended INR for the following:Preve ntion of venous thrombol ism in high-risk patients;treatm ent of venous thrombos is and pulmonary embol ism aftera course o f heparin; preven tion of systemic emboli sm in avariety of con dition, including atria l fibrillation andprosthetic t issue heart valves.2. 5-3.5 is the recommended INR for the following:P rosthetic mechanical hear t values and/or recurren t systemicemboliz ation. THROMBOPLASTIN TIME [id number] 10:20:00 Test Item Value Reference Range Interpretation Comments THROMBOPLASTIN TIME PARTIAL 26.1 SECONDS 25.1-36.5 N (test code = PTT) [id number] 09:03:00 Test Item Value Reference Range Interpretation Comments GLUBED (test 311 mg/dL 65-99 H Intravenous adm inistration code = GLUBED) of N-acetylcy steine which resultsin blood concentrations >5 mg/dL will cause overestim ationof blood glucose results . Do not use during intraven ousinfusion of N'acetylcyst eine. [id number] 08:06:00 Test Item Value Reference Range Interpretation Comments GLUBED (test 376 mg/dL 65-99 H Intravenous adm inistration code = GLUBED) of N-acetylcy steine which resultsin blood concentrations >5 mg/dL will cause overestim ationof blood glucose results . Do not use during intraven ousinfusion of N'acetylcyst eine. [id number] 06:17:00 Test Item Value Reference Range Interpretation Comments GLUBED (test 484 mg/dL 65-99 HH CRITICAL RESULT - TESTING code = GLUBED) PERFORMED BY PRIMARY CAREGIVERIntrav enous administration of N-acetylcystein e which resultsin blood concentrations >5 mg/dL will cause overestim ationof blood glucose results . Do not use during intraven ousinfusion of N'acetylcystein e. [id number] 05:16:00 Test Item Value Reference Range Interpretation Comments GLUBED (test 538 mg/dL 65-99 HH CRITICAL RESULT - TESTING code = GLUBED) PERFORMED BY PRIMARY CAREGIVERIntrav enous administration of N-acetylcystein e which resultsin blood concentrations >5 mg/dL will cause overestim ationof blood glucose results . Do not use during intraven ousinfusion of N'acetylcystein e. [id number] 05:13:00 Test Item Value Reference Range Interpretation Comments GLUBED (test > 600 mg/dL 65-99 HH CRITICAL RESULT - TESTING code = GLUBED) PERFORMED BY PRIMARY CAREGIVERIntrav enous administration of N-acetylcystein e which resultsin blood concentrations >5 mg/dL will cause overestim ationof blood glucose results . Do not use during intraven ousinfusion of N'acetylcyst eine. BASIC METABOLIC [id number] 05:11:00 Test Item Value Reference Range Interpretation Comments SODIUM (test code = 132 mmol/L 135-145 L NA) POTASSIUM (test code 4.6 mmol/L 3.5-5.1 N = K) CHLORIDE (test code = 96 mmol/L 98-107 L CL) CARBON DIOXIDE (test 11 mmol/L 21-32 L code = CO2) ANION GAP (test code 29.6 2.0-16.0 H = GAP) GLUCOSE (test code = 648 mg/dL 65-99 HH Critica l Value GLU) reported toFirs t Name:ISIDRO DUMONT READ BACK AND VERIFIEDby CARRI WOODARD, on 09/29/20, @ 1858. BLOOD UREA NITROGEN 58 mg/dL 4-23 H (test code = BUN) GLOMERULAR FILTRATION 23 ml/min >60 L The es timated RATE (test code = glomerular filtration GFR) rate is compute d usingpatient ra ce, age (>18), sex, and serum creatinine. If anyof the needed data elements are mi ssing the Laboratory cannot compute an raysa mation of the glomerul ar filtration rate . CREATININE (test code 2.7 mg/dL 0.6-1.5 H = CREAT) BUN/CREATININE RATIO 21.5 12.0-20.0 H (test code = BUN/CREA) CALCIUM (test code = 9.1 mg/dL 8.5-10.1 N CA) [id number] 05:11:00 Test Item Value Reference Range Interpretation Comments PHOSPHOROUS (test code = PHOS) 8.3 mg/dL 2.5-4.9 H CREATINE KINASE (CK)2020-09-29 05:11:00 Test Item Value Reference Range Interpretation Comments CREATINE KINASE (CK) (test code = CK) 189 U/L 26-308 N [id number] 05:11:00 Test Item Value Reference Range Interpretation Comments AMYLASE (test code = MINOO) 48 U/L 25-115 N [id number] 05:11:00 Test Item Value Reference Range Interpretation Comments MAGNESIUM (test code = MAG) 2.6 mg/dL 1.8-2.4 H OSMOLALITY [id number] 05:11:00 Test Item Value Reference Range Interpretation Comments OSMOLALITY SERUM (test code = OSMO) mOsm/kg 278-305 [id number] 05:11:00 Test Item Value Reference Range Interpretation Comments TROPONIN-I (test 0.91 ng/mL 0.00-0.07 HH Critical Va lue reported code = TROPI) toFirst Name:Louann HART RNRESULTS READ BACK AND VERIFIEDby CARRI WOODARD, on 09/29/20, @ 051 1. ACETONE [id number] 05:11:00 Test Item Value Reference Range Interpretation Comments ACETONE QUAL (test code = ACETNQL) LARGE NEGATIVE A BASIC METABOLIC [id number] 05:11:00 Test Item Value Reference Range Interpretation Comments SODIUM (test code = 132 mmol/L 135-145 L NA) POTASSIUM (test code 4.6 mmol/L 3.5-5.1 N = K) CHLORIDE (test code = 96 mmol/L 98-107 L CL) CARBON DIOXIDE (test 11 mmol/L 21-32 L code = CO2) ANION GAP (test code 29.6 2.0-16.0 H = GAP) GLUCOSE (test code = 648 mg/dL 65-99 HH Critica l Value GLU) reported toFirs t Name:ISIDRO BENJAMINU LTS READ BACK AND VERIFIEDby CARRI WOODARD, on 09/29/20, @ 0510. BLOOD UREA NITROGEN 58 mg/dL 4-23 H (test code = BUN) GLOMERULAR FILTRATION 23 ml/min >60 L The es timated RATE (test code = glomerular filtration GFR) rate is compute d usingpatient ra ce, age (>18), sex, and serum creatinine. If anyof the needed data elements are mi ssing the Laboratory cannot compute an raysa mation of the glomerul ar filtration rate . CREATININE (test code 2.7 mg/dL 0.6-1.5 H = CREAT) BUN/CREATININE RATIO 21.5 12.0-20.0 H (test code = BUN/CREA) CALCIUM (test code = 9.1 mg/dL 8.5-10.1 N CA) [id number] 05:11:00 Test Item Value Reference Range Interpretation Comments PHOSPHOROUS (test code = PHOS) 8.3 mg/dL 2.5-4.9 H CREATINE KINASE (CK)2020-09-29 05:11:00 Test Item Value Reference Range Interpretation Comments CREATINE KINASE (CK) (test code = CK) 189 U/L 26-308 N [id number] 05:11:00 Test Item Value Reference Range Interpretation Comments AMYLASE (test code = MINOO) 48 U/L 25-115 N [id number] 05:11:00 Test Item Value Reference Range Interpretation Comments MAGNESIUM (test code = MAG) 2.6 mg/dL 1.8-2.4 H OSMOLALITY [id number] 05:11:00 Test Item Value Reference Range Interpretation Comments OSMOLALITY SERUM (test code = 351 mOsm/kg 278-305 H OSMO) [id number] 05:11:00 Test Item Value Reference Range Interpretation Comments TROPONIN-I (test 0.91 ng/mL 0.00-0.07 HH Critical Va lue reported code = TROPI) toFirst Name:Louann HART RNRESULTS READ BACK AND VERIFIEDby CARRI WOODARD, on 09/29/20, @ 051 1. ACETONE [id number] 05:11:00 Test Item Value Reference Range Interpretation Comments ACETONE QUAL (test code = ACETNQL) LARGE NEGATIVE A PROTHROMBIN [id number] 04:54:00 Test Item Value Reference Range Interpretation Comments PROTHROMBIN TIME 9.5 SECONDS 9.4-12.5 N PATIENT (test code = PTP) INTERNATIONAL 0.8 RATIO 0.8-1.1 N THE INR IS USE FUL ONLY NORMAL RATIO (test FOR MONIT ORING code = INR) ANTICOAGULANT T HERAPY.IT MAY BE UNRELIAB LE IN THE INITIAL PHASE O F ANTICOAGULATION AND IN UNSTABLE PATIEN TS. 2.0-3.0 is the recommended INR for the following:Preve ntion of venous thrombol ism in high-risk patients;treatm ent of venous thrombos is and pulmonary embol ism aftera course o f heparin; preven tion of systemic emboli sm in avariety of con dition, including atria l fibrillation andprosthetic t issue heart valves.2. 5-3.5 is the recommended INR for the following:P rosthetic mechanical hear t values and/or recurren t systemicemboliz ation. THROMBOPLASTIN TIME [id number] 04:54:00 Test Item Value Reference Range Interpretation Comments THROMBOPLASTIN TIME PARTIAL 31.2 SECONDS 25.1-36.5 N (test code = PTT) BASIC METABOLIC [id number] 04:52:00 Test Item Value Reference Range Interpretation Comments SODIUM (test code = NA) mmol/L 135-145 POTASSIUM (test code = K) mmol/L 3.5-5.1 CHLORIDE (test code = CL) mmol/L 98-107 CARBON DIOXIDE (test code = CO2) mmol/L 21-32 ANION GAP (test code = GAP) 2.0-16.0 GLUCOSE (test code = GLU) mg/dL 65-99 BLOOD UREA NITROGEN (test code = BUN) mg/dL 4-23 GLOMERULAR FILTRATION RATE (test code ml/min >60 = GFR) CREATININE (test code = CREAT) mg/dL 0.6-1.5 BUN/CREATININE RATIO (test code = 12.0-20.0 BUN/CREA) CALCIUM (test code = CA) mg/dL 8.5-10.1 [id number] 04:52:00 Test Item Value Reference Range Interpretation Comments PHOSPHOROUS (test code = PHOS) mg/dL 2.5-4.9 CREATINE KINASE (CK)2020-09-29 04:52:00 Test Item Value Reference Range Interpretation Comments CREATINE KINASE (CK) (test code = CK) U/L 26-308 [id number] 04:52:00 Test Item Value Reference Range Interpretation Comments AMYLASE (test code = MINOO) U/L 25-115 [id number] 04:52:00 Test Item Value Reference Range Interpretation Comments MAGNESIUM (test code = MAG) mg/dL 1.8-2.4 OSMOLALITY [id number] 04:52:00 Test Item Value Reference Range Interpretation Comments OSMOLALITY SERUM (test code = OSMO) mOsm/kg 278-305 [id number] 04:52:00 Test Item Value Reference Range Interpretation Comments TROPONIN-I (test code = TROPI) ng/mL 0.00-0.07 ACETONE [id number] 04:52:00 Test Item Value Reference Range Interpretation Comments ACETONE QUAL (test code = ACETNQL) LARGE NEGATIVE A CBC W/AUTO [id number] 04:44:00 Test Item Value Reference Range Interpretation Comments WHITE BLOOD CELL (test code = 14.1 10 3/uL 4.5-11.0 H WBC) RED BLOOD CELL (test code = 3.79 10 6/uL 3.50-5.50 N RBC) HEMOGLOBIN (test code = HGB) 11.1 g/dL 12.0-16.0 L HEMATOCRIT (test code = HCT) 36.1 % 37.0-55.0 L MEAN CELL VOLUME (test code = 95 fL 81-102 N MCV) MEAN CELL HGB (test code = 29.3 pg 26.0-34.0 N MCH) MEAN CELL HGB CONCENTRATION 30.7 g/dL 31.0-37.0 L (test code = MCHC) RED CELL DISTRIBUTION WIDTH 13.0 % 11.6-14.4 N (test code = RDW) PLATELET COUNT (test code = 252 10 3/uL 150-400 N PLT) MEAN PLATELET VOLUME (test 11.8 fL 9.0-12.6 N code = MPV) NEUTROPHIL % (test code = NT%) 81.5 % 33.0-76.0 H IMMATURE GRANULOCYTE % (test 1.6 % 0.0-1.0 H code = IG%) LYMPHOCYTE % (test code = LY%) 10.5 % 14.0-56.4 L MONOCYTE % (test code = MO%) 6.0 % 0.0-12.9 N EOSINOPHIL % (test code = EO%) 0.0 % 0.0-7.0 N BASOPHIL % (test code = BA%) 0.4 % 0-2.0 N NUCLEATED RBC % (test code = 0.0 % 0-0.2 N NRBC%) NEUTROPHIL # (test code = NT#) 11.52 10 3/uL 1.5-7.0 H IMMATURE GRANULOCYTE # (test 0.230 x10 3/uL 0.000-0.100 H code = IG#) LYMPHOCYTE # (test code = LY#) 1.49 10 3/uL 1.50-4.00 L MONOCYTE # (test code = MO#) 0.85 10 3/uL 0.20-0.80 H EOSINOPHIL # (test code = EO#) 0.00 10 3/uL 0.0-0.5 N BASOPHIL # (test code = BA#) 0.05 10 3/uL 0.0-0.1 N [id number] 01:59:00 Test Item Value Reference Range Interpretation Comments GLUBED (test > 600 mg/dL 65-99 CRITICAL RESULT - TESTING code = GLUBED) PERFORMED BY PRIMARY CAREGIVERIntrav enous administration of N-acetylcystein e which resultsin blood concentrations >5 mg/dL will cause overestim ationof blood glucose results . Do not use during intraven ousinfusion of N'acetylcyst eine. COVID 19 INHOUSE [id number] 01:58:00 Test Item Value Reference Range Interpretation Comments COVID 19 INHOUSE NEGATIVE Negative Negative re sults do not AG (test code = preclude 201 9-nCoV infection [id number]) andshould not b e used as the sole basis for treatment or otherpatient ma nagement decisions. Nega tive results must becombined with clinical observ ations, patient history , andepidemiologi abhinav information. BASIC METABOLIC [id number] 23:46:00 Test Item Value Reference Range Interpretation Comments SODIUM (test code = 130 mmol/L 135-145 L NA) POTASSIUM (test code 5.4 mmol/L 3.5-5.1 H = K) CHLORIDE (test code = 94 mmol/L 98-107 L CL) CARBON DIOXIDE (test 12 mmol/L 21-32 L code = CO2) ANION GAP (test code 29.4 2.0-16.0 H = GAP) GLUCOSE (test code = 639 mg/dL 65-99 HH Critica l Value GLU) reported toFirs t Name:RAJNI Last Name:GABRIELA READ BACK AND NIELS Curran NCLAB.MJ, on 09/28/20, @ 234 0. BLOOD UREA NITROGEN 55 mg/dL 4-23 H (test code = BUN) GLOMERULAR FILTRATION 26 ml/min >60 L The es timated RATE (test code = glomerular filtration GFR) rate is compute d usingpatient ra ce, age (>18), sex, and serum creatinine. If anyof the needed data elements are mi ssing the Laboratory cannot compute an raysa mation of the glomerul ar filtration rate . CREATININE (test code 2.4 mg/dL 0.6-1.5 H = CREAT) BUN/CREATININE RATIO 22.9 12.0-20.0 H (test code = BUN/CREA) CALCIUM (test code = 8.6 mg/dL 8.5-10.1 N CA) LIVER FUNCTION [id number] 23:46:00 Test Item Value Reference Range Interpretation Comments TOTAL PROTEIN 8.0 g/dL 6.4-8.2 N (test code = PROT) ALBUMIN (test code 3.8 g/dL 3.4-5.0 N = ALB) GLOBULIN (test 4.2 g/dL 2.3-3.5 H code = GLOB) BILIRUBIN TOTAL 0.5 mg/dL 0.2-1.2 N Use of this assay is not (test code = BILT) recommend ed for patients undergoingtreat ment with Eltrombopag due to the potential for falselyelevated results. BILIRUBIN DIRECT 0.1 mg/dL 0.0-0.3 N (test code = BILD) BILIRUBIN INDIRECT 0.4 mg/dL 0.0-0.8 N (test code = BILIND) SGOT/AST (test 28 U/L 15-37 N code = AST) SGPT/ALT (test 29 U/L 6-50 N code = ALT) ALKALINE 124 U/L 45-117 H PHOSPHATASE (test code = ALKP) [id number] 23:46:00 Test Item Value Reference Range Interpretation Comments MAGNESIUM (test code = MAG) 2.4 mg/dL 1.8-2.4 N [id number] 23:46:00 Test Item Value Reference Range Interpretation Comments TROPONIN-I (test 0.09 ng/mL 0.00-0.07 HH Critical Va lue reported code = TROPI) toFirst Name:Larry LARSON Last Name:KRISTOFERVITALY READ BACK AND D[employer]IFI EDby NCLAB.[facility], on 0 09/28/20, @ 2340. ACETONE [id number] 23:46:00 Test Item Value Reference Range Interpretation Comments ACETONE QUAL (test code = ACETNQL) LARGE NEGATIVE A BASIC METABOLIC [id number] 23:40:00 Test Item Value Reference Range Interpretation Comments SODIUM (test code = 130 mmol/L 135-145 L NA) POTASSIUM (test code 5.4 mmol/L 3.5-5.1 H = K) CHLORIDE (test code = 94 mmol/L 98-107 L CL) CARBON DIOXIDE (test 12 mmol/L 21-32 L code = CO2) ANION GAP (test code 29.4 2.0-16.0 H = GAP) GLUCOSE (test code = 639 mg/dL 65-99 HH Critica l Value GLU) reported toFirs t Name:RAJNI Last Name:KRISTOFERVITALY READ BACK AND build[employer]by NCLAB.[facility], on 09/28/20, @ 234 0. BLOOD UREA NITROGEN 55 mg/dL 4-23 H (test code = BUN) GLOMERULAR FILTRATION 26 ml/min >60 L The es timated RATE (test code = glomerular filtration GFR) rate is compute d usingpatient ra ce, age (>18), sex, and serum creatinine. If anyof the needed data elements are mi ssing the Laboratory cannot compute an raysa mation of the glomerul ar filtration rate . CREATININE (test code 2.4 mg/dL 0.6-1.5 H = CREAT) BUN/CREATININE RATIO 22.9 12.0-20.0 H (test code = BUN/CREA) CALCIUM (test code = 8.6 mg/dL 8.5-10.1 N CA) LIVER FUNCTION [id number] 23:40:00 Test Item Value Reference Range Interpretation Comments TOTAL PROTEIN 8.0 g/dL 6.4-8.2 N (test code = PROT) ALBUMIN (test code 3.8 g/dL 3.4-5.0 N = ALB) GLOBULIN (test 4.2 g/dL 2.3-3.5 H code = GLOB) BILIRUBIN TOTAL 0.5 mg/dL 0.2-1.2 N Use of this assay is not (test code = BILT) recommend ed for patients undergoingtreat ment with Eltrombopag due to the potential for falselyelevated results. BILIRUBIN DIRECT 0.1 mg/dL 0.0-0.3 N (test code = BILD) BILIRUBIN INDIRECT 0.4 mg/dL 0.0-0.8 N (test code = BILIND) SGOT/AST (test 28 U/L 15-37 N code = AST) SGPT/ALT (test 29 U/L 6-50 N code = ALT) ALKALINE 124 U/L 45-117 H PHOSPHATASE (test code = ALKP) [id number] 23:40:00 Test Item Value Reference Range Interpretation Comments MAGNESIUM (test code = MAG) 2.4 mg/dL 1.8-2.4 N [id number] 23:40:00 Test Item Value Reference Range Interpretation Comments TROPONIN-I (test 0.09 ng/mL 0.00-0.07 HH Critical Va lue reported code = TROPI) Luisirst Name:Larry LARSON Last Name:GABRIELA READ BACK AND NIELS Curran NCLAB.[facility], on 0 09/28/20, @ 4260. ACETONE [id number] 23:40:00 Test Item Value Reference Range Interpretation Comments ACETONE QUAL (test code = ACETNQL) NEGATIVE CBC W/O [id number] 23:22:00 Test Item Value Reference Range Interpretation Comments WHITE BLOOD CELL (test code = 11.2 10 3/uL 4.5-11.0 H WBC) RED BLOOD CELL (test code = RBC) 3.83 10 6/uL 3.50-5.50 N HEMOGLOBIN (test code = HGB) 11.3 g/dL 12.0-16.0 L HEMATOCRIT (test code = HCT) 36.3 % 37.0-55.0 L MEAN CELL VOLUME (test code = 95 fL 81-102 N MCV) MEAN CELL HGB (test code = MCH) 29.5 pg 26.0-34.0 N MEAN CELL HGB CONCENTRATION 31.1 g/dL 31.0-37.0 N (test code = MCHC) RED CELL DISTRIBUTION WIDTH 13.1 % 11.6-14.4 N (test code = RDW) PLATELET COUNT (test code = PLT) 239 10 3/uL 150-400 N [id number] 12:13:00 Test Item Value Reference Range Interpretation Comments GLUBED (test 233 mg/dL 65-99 H Intravenous adm inistration code = GLUBED) of N-acetylcy steine which resultsin blood concentrations >5 mg/dL will cause overestim ationof blood glucose results . Do not use during intraven ousinfusion of N'acetylcyst eine. BASIC METABOLIC [id number] 07:58:00 Test Item Value Reference Range Interpretation Comments SODIUM (test code = 136 mmol/L 135-145 N NA) POTASSIUM (test code 4.2 mmol/L 3.5-5.1 N = K) CHLORIDE (test code = 103 mmol/L 98-107 N CL) CARBON DIOXIDE (test 27 mmol/L 21-32 N code = CO2) ANION GAP (test code 10.2 2.0-16.0 N = GAP) GLUCOSE (test code = 179 mg/dL 65-99 H GLU) BLOOD UREA NITROGEN 27 mg/dL 4-23 H (test code = BUN) GLOMERULAR FILTRATION 52 ml/min >60 L The es timated RATE (test code = glomerular filtration GFR) rate is compute d usingpatient ra ce, age (>18), sex, and serum creatinine. If anyof the needed data elements are mi ssing the Laboratory cannot compute an raysa mation of the glomerul ar filtration rate . CREATININE (test code 1.3 mg/dL 0.6-1.5 N = CREAT) BUN/CREATININE RATIO 20.8 12.0-20.0 H (test code = BUN/CREA) CALCIUM (test code = 8.7 mg/dL 8.5-10.1 N CA) CBC W/AUTO [id number] 07:36:00 Test Item Value Reference Range Interpretation Comments WHITE BLOOD CELL (test code = 3.2 10 3/uL 4.5-11.0 L WBC) RED BLOOD CELL (test code = 3.86 10 6/uL 3.50-5.50 N RBC) HEMOGLOBIN (test code = HGB) 11.1 g/dL 12.0-16.0 L HEMATOCRIT (test code = HCT) 34.1 % 37.0-55.0 L MEAN CELL VOLUME (test code = 88 fL 81-102 N MCV) MEAN CELL HGB (test code = 28.8 pg 26.0-34.0 N MCH) MEAN CELL HGB CONCENTRATION 32.6 g/dL 31.0-37.0 N (test code = MCHC) RED CELL DISTRIBUTION WIDTH 12.8 % 11.6-14.4 N (test code = RDW) PLATELET COUNT (test code = 228 10 3/uL 150-400 N PLT) MEAN PLATELET VOLUME (test 11.2 fL 9.0-12.6 N code = MPV) NEUTROPHIL % (test code = NT%) 50.5 % 33.0-76.0 N IMMATURE GRANULOCYTE % (test 0.3 % 0.0-1.0 N code = IG%) LYMPHOCYTE % (test code = LY%) 34.8 % 14.0-56.4 N MONOCYTE % (test code = MO%) 9.1 % 0.0-12.9 N EOSINOPHIL % (test code = EO%) 4.4 % 0.0-7.0 N BASOPHIL % (test code = BA%) 0.9 % 0-2.0 N NUCLEATED RBC % (test code = 0.0 % 0-0.2 N NRBC%) NEUTROPHIL # (test code = NT#) 1.61 10 3/uL 1.5-7.0 N IMMATURE GRANULOCYTE # (test 0.010 x10 3/uL 0.000-0.100 N code = IG#) LYMPHOCYTE # (test code = LY#) 1.11 10 3/uL 1.50-4.00 L MONOCYTE # (test code = MO#) 0.29 10 3/uL 0.20-0.80 N EOSINOPHIL # (test code = EO#) 0.14 10 3/uL 0.0-0.5 N BASOPHIL # (test code = BA#) 0.03 10 3/uL 0.0-0.1 N [id number] 05:54:00 Test Item Value Reference Range Interpretation Comments GLUBED (test 214 mg/dL 65-99 H Intravenous adm inistration code = GLUBED) of N-acetylcy steine which resultsin blood concentrations >5 mg/dL will cause overestim ationof blood glucose results . Do not use during intraven ousinfusion of N'acetylcyst eine. [id number] 20:36:00 Test Item Value Reference Range Interpretation Comments GLUBED (test 116 mg/dL 65-99 H Intravenous adm inistration code = GLUBED) of N-acetylcy steine which resultsin blood concentrations >5 mg/dL will cause overestim ationof blood glucose results . Do not use during intraven ousinfusion of N'acetylcyst eine. [id number] 17:19:00 Test Item Value Reference Range Interpretation Comments GLUBED (test 350 mg/dL 65-99 H Intravenous adm inistration code = GLUBED) of N-acetylcy steine which resultsin blood concentrations >5 mg/dL will cause overestim ationof blood glucose results . Do not use during intraven ousinfusion of N'acetylcyst eine. [id number] 10:25:00 Test Item Value Reference Range Interpretation Comments GLUBED (test 301 mg/dL 65-99 H Intravenous adm inistration code = GLUBED) of N-acetylcy steine which resultsin blood concentrations >5 mg/dL will cause overestim ationof blood glucose results . Do not use during intraven ousinfusion of N'acetylcyst eine. [id number] 06:35:00 Test Item Value Reference Range Interpretation Comments GLUBED (test 229 mg/dL 65-99 H Intravenous adm inistration code = GLUBED) of N-acetylcy steine which resultsin blood concentrations >5 mg/dL will cause overestim ationof blood glucose results . Do not use during intraven ousinfusion of N'acetylcyst eine. [id number] 06:29:00 Test Item Value Reference Range Interpretation Comments TROPONIN-I (test code = TROPI) < 0.02 ng/mL 0.00-0.07 N [id number] 01:56:00 Test Item Value Reference Range Interpretation Comments TROPONIN-I (test code = TROPI) < 0.02 ng/mL 0.00-0.07 N [id number] 20:40:00 Test Item Value Reference Range Interpretation Comments GLUBED (test 165 mg/dL 65-99 H Intravenous adm inistration code = GLUBED) of N-acetylcy steine which resultsin blood concentrations >5 mg/dL will cause overestim ationof blood glucose results . Do not use during intraven ousinfusion of N'acetylcyst eine. [id number] 20:23:00 Test Item Value Reference Range Interpretation Comments TROPONIN-I (test code = TROPI) < 0.02 ng/mL 0.00-0.07 N [id number] 19:44:00 Test Item Value Reference Range Interpretation Comments CORTISOL (test code = CORTR) 11.8 ug/dL 3.0-25.0 N THYROID STIMULATING [id number] 19:24:00 Test Item Value Reference Range Interpretation Comments THYROID STIMULATING HORMONE (test 1.91 mIU/mL 0.36-3.74 N code = TSH) HGBA1C - GLYCOSYLATED [id number] 19:22:00 Test Item Value Reference Range Interpretation Comments GLYCOSYLATED 13.5 4.5-5.9 H The [place] [employer] HEMOGLOBIN (HA1C) Associatio n recommends a (test code = GLYHGB) therape uticrange of <7.0% Hemoglobin A1c for patients with diabetesmellitu s (Type 2 diabetes). T4 (THYROXINE)2020-08-10 19:14:00 Test Item Value Reference Range Interpretation Comments T4 (THYROXINE) (test code = T4) 7.9 ug/dL 4.7-11.4 N [id number] 18:17:00 Test Item Value Reference Range Interpretation Comments GLUBED (test 70 mg/dL 65-99 N Intravenous adm inistration of code = GLUBED) N-acetylcyste ine which resultsin blood concentrations >5 mg/dL will cause overestim ationof blood glucose results . Do not use during intraven ousinfusion of N'acetylcystein e. [id number] 17:33:00 Test Item Value Reference Range Interpretation Comments GLUBED (test 48 mg/dL 65-99 LL CRITICAL RESULT - TESTING code = GLUBED) PERFORMED BY PRIMARY CAREGIVERIntrav enous administration of N-acetylcystein e which resultsin blood concentrations >5 mg/dL will cause overestim ationof blood glucose results . Do not use during intraven ousinfusion of N'acetylcystein e. LIPID PROFILE (CORONARY RISK)2020-08-10 15:09:00 Test Item Value Reference Range Interpretation Comments TRIGLYCERIDES (test 81 mg/dL 0-149 N code = TRIG) CHOLESTEROL (test code 209 mg/dL 0-200 H = CHOL) CHOLESTEROL/HDL RATIO 3 1-6 N (test code = CHOLHDL) HDL CHOLESTEROL (test 80 mg/dL 40-60 H Accord ing to the code = HDL) [facility] ([facility]) an d theNational Cholesterol Edu cation Program (NCEP), an HDLcholesterol >or= 60mg/dL counts as a "negative" risk factor;its pres ence removes one ris k factor from the total count. LIPOPROTEIN LDL (test 120 mg/dL 0-100 H code = LDLC) [id number] 15:09:00 Test Item Value Reference Range Interpretation Comments MAGNESIUM (test code = MAG) 1.9 mg/dL 1.8-2.4 N COVID 19 Asymptomatic IH [id number] 14:46:00 Test Item Value Reference Range Interpretation Comments COVID 19 Negative Negative Negative result s do not Asymptomatic IH AG preclude 2019-nCoV (test code = infection andsh ould not COVNONPUIAG) be used as the sole basis for treatment o r otherpatient ma nagement decisions. Nega tive results must be combined with clinical observations, p atient history, andepidemiologi abhinav information. BASIC METABOLIC [id number] 13:01:00 Test Item Value Reference Range Interpretation Comments SODIUM (test code 138 mmol/L 135-145 N = NA) POTASSIUM (test 3.5 mmol/L 3.5-5.1 N code = K) CHLORIDE (test 106 mmol/L 98-107 N code = CL) CARBON DIOXIDE 28 mmol/L 21-32 N (test code = CO2) ANION GAP (test 7.5 2.0-16.0 N code = GAP) GLUCOSE (test code 131 mg/dL 65-99 H = GLU) BLOOD UREA 23 mg/dL 4-23 N NITROGEN (test code = BUN) GLOMERULAR >=60 max >60 The estimated FILTRATION RATE estimate ml/min glomerula r (test code = GFR) filtration rate is computed usingpatient ra ce, age (>18), sex, and serum creatinin e. If anyof the neede d data elements a re missing the Laboratory olivier ot compute an estimation of t he glomerular filtration rate . CREATININE (test 1.1 mg/dL 0.6-1.5 N code = CREAT) BUN/CREATININE 20.9 12.0-20.0 H RATIO (test code = BUN/CREA) CALCIUM (test code 8.6 mg/dL 8.5-10.1 N = CA) [id number] 13:01:00 Test Item Value Reference Range Interpretation Comments TROPONIN-I (test code = TROPI) < 0.02 ng/mL 0.00-0.07 N - XR CHEST 1 [id number] 12:43:00 [facility] CYPRESSName: DANIELE HINKLE : 1950 Sex: FPatient Name: DANIELE HINKLE Unit No: [id number] EXAMS: CPT CODE: [id number] XR CHEST 1 V 23651 Single View Chest. Location: Clinical Indication: 70-year-old with chest pain Comparison: April 02, 2019 Findings: An AP view of the chest was obtained heart size is normal. The lungs are grossly clear. There is a small calcified granuloma of the left upper lobe. No acute osseous abnormality. Impression: No acute pulmonary infiltrate. at 1243 Reported and signed by: Mark Vazquez MD CC: Holden Quesada MD Technologist: Scott Chaudhari Time: DAP (Gy m2): Air Kerma (mGy): Trscr Dt/Tm: 08/10/2020 (1243) by:[email or web address] Electronic Signature Date/Time: 08/10/2020 (1243)Orig Print D/T: S: 08/10/2020 (1246) Name: DANIELE HINKLE [facility] [place] Phys: [place] [address] : 1950 Age: 70 Sex: [place] [id number] Loc: [place].ERS Exam Date: 08/10/2020 Status: REG ER PH: FAX: PAGE 1 Signed ReportCBC W/AUTO [id number] 12:42:00 Test Item Value Reference Range Interpretation Comments WHITE BLOOD CELL (test code = 3.5 10 3/uL 4.5-11.0 L WBC) RED BLOOD CELL (test code = 3.31 10 6/uL 3.50-5.50 L RBC) HEMOGLOBIN (test code = HGB) 9.8 g/dL 12.0-16.0 L HEMATOCRIT (test code = HCT) 29.7 % 37.0-55.0 L MEAN CELL VOLUME (test code = 90 fL 81-102 N MCV) MEAN CELL HGB (test code = 29.6 pg 26.0-34.0 N MCH) MEAN CELL HGB CONCENTRATION 33.0 g/dL 31.0-37.0 N (test code = MCHC) RED CELL DISTRIBUTION WIDTH 12.9 % 11.6-14.4 N (test code = RDW) PLATELET COUNT (test code = 203 10 3/uL 150-400 N PLT) MEAN PLATELET VOLUME (test 11.2 fL 9.0-12.6 N code = MPV) NEUTROPHIL % (test code = NT%) 42.7 % 33.0-76.0 N IMMATURE GRANULOCYTE % (test 0.3 % 0.0-1.0 N code = IG%) LYMPHOCYTE % (test code = LY%) 38.2 % 14.0-56.4 N MONOCYTE % (test code = MO%) 12.4 % 0.0-12.9 N EOSINOPHIL % (test code = EO%) 5.5 % 0.0-7.0 N BASOPHIL % (test code = BA%) 0.9 % 0-2.0 N NUCLEATED RBC % (test code = 0.0 % 0-0.2 N NRBC%) NEUTROPHIL # (test code = NT#) 1.49 10 3/uL 1.5-7.0 L IMMATURE GRANULOCYTE # (test 0.010 x10 3/uL 0.000-0.100 N code = IG#) LYMPHOCYTE # (test code = LY#) 1.33 10 3/uL 1.50-4.00 L MONOCYTE # (test code = MO#) 0.43 10 3/uL 0.20-0.80 N EOSINOPHIL # (test code = EO#) 0.19 10 3/uL 0.0-0.5 N BASOPHIL # (test code = BA#) 0.03 10 3/uL 0.0-0.1 N [id number] 01:41:00 Test Item Value Reference Range Interpretation Comments GLUBED (test code = GLUBED) 176 mg/dL 65-99 H [id number] 00:48:00 Test Item Value Reference Range Interpretation Comments GLUBED (test code = GLUBED) 109 mg/dL 65-99 H [id number] 23:33:00 Test Item Value Reference Range Interpretation Comments GLUBED (test code = GLUBED) 133 mg/dL 65-99 H [id number] 23:02:00 Test Item Value Reference Range Interpretation Comments GLUBED (test code = GLUBED) 150 mg/dL 65-99 H [id number] 22:24:00 Test Item Value Reference Range Interpretation Comments GLUBED (test code = GLUBED) 237 mg/dL 65-99 H COMPREHENSIVE METABOLIC [id number] 22:07:00 Test Item Value Reference Range Interpretation Comments SODIUM (test code 137 mmol/L 135-145 N = NA) POTASSIUM (test 3.5 mmol/L 3.5-5.1 N code = K) CHLORIDE (test 106 mmol/L 98-107 N code = CL) CARBON DIOXIDE 23 mmol/L 21-32 N (test code = CO2) ANION GAP (test 11.5 2.0-16.0 N code = GAP) GLUCOSE (test code 304 mg/dL 65-99 H = GLU) BLOOD UREA 28 mg/dL 4-23 H NITROGEN (test code = BUN) GLOMERULAR 41 ml/min >60 L The estimated g lomerular FILTRATION RATE filtration r ate is (test code = GFR) computed u singpatient race, age (>18) , sex, and serum creatinin e. If anyof the neede d data elements are mi ssing the Laboratory olivier ot compute an estimation o f the glomerular filt ration rate. CREATININE (test 1.6 mg/dL 0.6-1.5 H code = CREAT) BUN/CREATININE 17.5 12.0-20.0 N RATIO (test code = BUN/CREA) TOTAL PROTEIN 7.9 g/dL 6.4-8.2 N (test code = PROT) ALBUMIN (test code 3.7 g/dL 3.4-5.0 N = ALB) CALCIUM (test code 8.9 mg/dL 8.5-10.1 N = CA) BILIRUBIN TOTAL 0.3 mg/dL 0.2-1.2 N Use of this assay is not (test code = BILT) recommend ed for patients undergoingtreat ment with Eltrombopag due to the potential for falselyelevated results. SGOT/AST (test 24 U/L 15-37 N code = AST) SGPT/ALT (test 25 U/L 6-50 N code = ALT) ALKALINE 118 U/L 45-117 H PHOSPHATASE (test code = ALKP) CBC W/AUTO [id number] 22:02:00 Test Item Value Reference Range Interpretation Comments WHITE BLOOD CELL (test code = 4.2 10 3/uL 4.5-11.0 L WBC) RED BLOOD CELL (test code = 3.71 10 6/uL 3.50-5.50 N RBC) HEMOGLOBIN (test code = HGB) 11.1 g/dL 12.0-16.0 L HEMATOCRIT (test code = HCT) 31.8 % 37.0-55.0 L MEAN CELL VOLUME (test code = 86 fL 81-102 N MCV) MEAN CELL HGB (test code = 29.9 pg 26.0-34.0 N MCH) MEAN CELL HGB CONCENTRATION 34.9 % 31.0-37.0 N (test code = MCHC) RED CELL DISTRIBUTION WIDTH 12.5 % 11.5-14.5 N (test code = RDW) PLATELET COUNT (test code = 197 10 3/uL 150-400 N PLT) MEAN PLATELET VOLUME (test 10.6 fl 9.0-12.6 N code = MPV) NEUTROPHIL % (test code = NT%) 54.7 % 33.0-76.0 N IMMATURE GRANULOCYTE % (test 0.5 % 0.0-1.0 N code = IG%) LYMPHOCYTE % (test code = LY%) 30.2 % 14.0-56.4 N MONOCYTE % (test code = MO%) 7.1 % 0.0-12.9 N EOSINOPHIL % (test code = EO%) 6.8 % 0.0-7.0 N BASOPHIL % (test code = BA%) 0.7 % 0-2.0 N NUCLEATED RBC % (test code = 0.0 % 0-0.2 N NRBC%) NEUTROPHIL # (test code = NT#) 2.32 10 3/uL 1.5-7.0 N IMMATURE GRANULOCYTE # (test 0.020 x10 3/uL 0.000-0.100 N code = IG#) LYMPHOCYTE # (test code = LY#) 1.28 10 3/uL 1.50-4.00 L MONOCYTE # (test code = MO#) 0.30 10 3/uL 0.20-0.80 N EOSINOPHIL # (test code = EO#) 0.29 10 3/uL 0.0-0.5 N BASOPHIL # (test code = BA#) 0.03 10 3/uL 0.0-0.1 N [id number] 21:43:00 Test Item Value Reference Range Interpretation Comments GLUBED (test code = GLUBED) 309 mg/dL 65-99 H BASIC METABOLIC [id number] 11:31:00 Test Item Value Reference Range Interpretation Comments SODIUM (test code = 139 mmol/L 135-145 N NA) POTASSIUM (test code 4.1 mmol/L 3.5-5.1 N = K) CHLORIDE (test code = 109 mmol/L 98-107 H CL) CARBON DIOXIDE (test 23 mmol/L 21-32 N code = CO2) ANION GAP (test code 11.1 2.0-16.0 = GAP) GLUCOSE (test code = 243 mg/dL 65-99 H GLU) BLOOD UREA NITROGEN 15 mg/dL 4-23 N (test code = BUN) GLOMERULAR FILTRATION 48 ml/min 60-115 L The es timated RATE (test code = glomerular filtration GFR) rate is compute d usingpatient ra ce, age (>18), sex, and serum creatinine. If anyof the needed data elements are mi ssing the Laboratory cannot compute an raysa mation of the glomerul ar filtration rate . CREATININE (test code 1.4 mg/dL 0.6-1.5 N = CREAT) BUN/CREATININE RATIO 10.7 12.0-20.0 L (test code = BUN/CREA) CALCIUM (test code = 8.2 mg/dL 8.5-10.1 L CA) Spec Comments: While on insulin dripComments to Phleb: Increase to Q 1hour if less than [id number] 11:31:00 Test Item Value Reference Range Interpretation Comments PHOSPHOROUS (test code = PHOS) 3.0 mg/dL 2.5-4.9 N Spec Comments: While on insulin dripComments to Phleb: Increase to Q 1hour if less than [id number] 11:31:00 Test Item Value Reference Range Interpretation Comments MAGNESIUM (test code = MAG) 1.7 mg/dL 1.8-2.4 L Spec Comments: While on insulin dripComments to Phleb: Increase to Q 1hour if less than [id number] 11:30:00 Test Item Value Reference Range Interpretation Comments GLUBED (test code = GLUBED) 250 mg/dL 65-99 H [id number] 06:56:00 Test Item Value Reference Range Interpretation Comments GLUBED (test code = GLUBED) 134 mg/dL 65-99 H COMPREHENSIVE METABOLIC [id number] 06:33:00 Test Item Value Reference Range Interpretation Comments SODIUM (test code = 139 mmol/L 135-145 N NA) POTASSIUM (test code 3.7 mmol/L 3.5-5.1 N = K) CHLORIDE (test code = 109 mmol/L 98-107 H CL) CARBON DIOXIDE (test 24 mmol/L 21-32 N code = CO2) GLUCOSE (test code = 142 mg/dL 65-99 H GLU) BLOOD UREA NITROGEN 18 mg/dL 4-23 N (test code = BUN) GLOMERULAR FILTRATION 48 ml/min 60-115 L The es timated RATE (test code = glomerular filtration GFR) rate is compute d usingpatient ra ce, age (>18), sex, and serum creatinine. If anyof the needed data elements are mi ssing the Laboratory cannot compute an raysa mation of the glomerul ar filtration rate . CREATININE (test code 1.4 mg/dL 0.6-1.5 N = CREAT) BUN/CREATININE RATIO 12.9 12.0-20.0 N (test code = BUN/CREA) TOTAL PROTEIN (test 5.8 g/dL 6.4-8.2 L code = PROT) ALBUMIN (test code = 2.7 g/dL 3.4-5.0 L ALB) CALCIUM (test code = 8.1 mg/dL 8.5-10.1 L CA) BILIRUBIN TOTAL (test 0.3 mg/dL 0.2-1.2 N code = BILT) SGOT/AST (test code = 40 U/L 15-37 H AST) SGPT/ALT (test code = 22 U/L 6-50 N ALT) ALKALINE PHOSPHATASE 70 U/L 45-117 N (test code = ALKP) Spec Comments: While on insulin dripComments to Phleb: Increase to Q 1hour if less than [id number] 06:33:00 Test Item Value Reference Range Interpretation Comments PHOSPHOROUS (test code = PHOS) 3.1 mg/dL 2.5-4.9 N Spec Comments: While on insulin dripComments to Phleb: Increase to Q 1hour if less than [id number] 06:33:00 Test Item Value Reference Range Interpretation Comments MAGNESIUM (test code = MAG) 1.7 mg/dL 1.8-2.4 L Spec Comments: While on insulin dripComments to Phleb: Increase to Q 1hour if less than 3.3BASIC METABOLIC [id number] 02:16:00 Test Item Value Reference Range Interpretation Comments SODIUM (test code = 141 mmol/L 135-145 N NA) POTASSIUM (test code 3.9 mmol/L 3.5-5.1 N = K) CHLORIDE (test code = 111 mmol/L 98-107 H CL) CARBON DIOXIDE (test 25 mmol/L 21-32 N code = CO2) ANION GAP (test code 8.9 2.0-16.0 = GAP) GLUCOSE (test code = 78 mg/dL 65-99 N GLU) BLOOD UREA NITROGEN 18 mg/dL 4-23 N (test code = BUN) GLOMERULAR FILTRATION 45 ml/min 60-115 L The es timated RATE (test code = glomerular filtration GFR) rate is compute d usingpatient ra ce, age (>18), sex, and serum creatinine. If anyof the needed data elements are mi ssing the Laboratory cannot compute an raysa mation of the glomerul ar filtration rate . CREATININE (test code 1.5 mg/dL 0.6-1.5 N = CREAT) BUN/CREATININE RATIO 12.0 12.0-20.0 N (test code = BUN/CREA) CALCIUM (test code = 8.3 mg/dL 8.5-10.1 L CA) Spec Comments: While on insulin dripComments to Phleb: Increase to Q 1hour if less than [id number] 02:16:00 Test Item Value Reference Range Interpretation Comments PHOSPHOROUS (test code = PHOS) 3.0 mg/dL 2.5-4.9 N Spec Comments: While on insulin dripComments to Phleb: Increase to Q 1hour if less than [id number] 02:16:00 Test Item Value Reference Range Interpretation Comments MAGNESIUM (test code = MAG) 1.6 mg/dL 1.8-2.4 L Spec Comments: While on insulin dripComments to Phleb: Increase to Q 1hour if less than 3.3CBC W/AUTO [id number] 02:13:00 Test Item Value Reference Range Interpretation Comments WHITE BLOOD CELL (test code = 3.9 10 3/uL 4.5-11.0 L WBC) RED BLOOD CELL (test code = 3.36 10 6/uL 3.50-5.50 L RBC) HEMOGLOBIN (test code = HGB) 9.6 g/dL 12.0-16.0 L HEMATOCRIT (test code = HCT) 28.9 % 37.0-55.0 L MEAN CELL VOLUME (test code = 86 fL 81-102 N MCV) MEAN CELL HGB (test code = 28.6 pg 26.0-34.0 N MCH) MEAN CELL HGB CONCENTRATION 33.2 % 31.0-37.0 N (test code = MCHC) RED CELL DISTRIBUTION WIDTH 14.0 % 11.5-14.5 N (test code = RDW) RED CELL DISTRIBUTION WIDTH SD 43.4 fL 36.4-46.3 N (test code = RDW-SD) PLATELET COUNT (test code = 182 10 3/uL 150-400 N PLT) MEAN PLATELET VOLUME (test 11.5 fl 9.0-12.6 N code = MPV) NEUTROPHIL % (test code = NT%) 43.4 % 33.0-76.0 N IMMATURE GRANULOCYTE % (test 0.3 % 0.0-1.0 N code = IG%) LYMPHOCYTE % (test code = LY%) 40.7 % 14.0-56.4 N MONOCYTE % (test code = MO%) 11.2 % 0.0-12.9 N EOSINOPHIL % (test code = EO%) 3.6 % 0.0-7.0 N BASOPHIL % (test code = BA%) 0.8 % 0-2.0 N NUCLEATED RBC % (test code = 0.0 % 0-0.2 N NRBC%) NEUTROPHIL # (test code = NT#) 1.71 10 3/uL 1.5-7.0 N IMMATURE GRANULOCYTE # (test 0.010 x10 3/uL 0.000-0.100 N code = IG#) LYMPHOCYTE # (test code = LY#) 1.60 10 3/uL 1.50-4.00 N MONOCYTE # (test code = MO#) 0.44 10 3/uL 0.20-0.80 N EOSINOPHIL # (test code = EO#) 0.14 10 3/uL 0.0-0.5 N BASOPHIL # (test code = BA#) 0.03 10 3/uL 0.0-0.1 N [id number] 20:35:00 Test Item Value Reference Range Interpretation Comments GLUBED (test code = GLUBED) 188 mg/dL 65-99 H [id number] 16:19:00 Test Item Value Reference Range Interpretation Comments GLUBED (test code = GLUBED) 230 mg/dL 65-99 H BASIC METABOLIC [id number] 12:54:00 Test Item Value Reference Range Interpretation Comments SODIUM (test code = 140 mmol/L 135-145 N NA) POTASSIUM (test code 4.2 mmol/L 3.5-5.1 N = K) CHLORIDE (test code = 109 mmol/L 98-107 H CL) CARBON DIOXIDE (test 25 mmol/L 21-32 N code = CO2) ANION GAP (test code 10.2 2.0-16.0 = GAP) GLUCOSE (test code = 153 mg/dL 65-99 H GLU) BLOOD UREA NITROGEN 26 mg/dL 4-23 H (test code = BUN) GLOMERULAR FILTRATION 45 ml/min 60-115 L The es timated RATE (test code = glomerular filtration GFR) rate is compute d usingpatient ra ce, age (>18), sex, and serum creatinine. If anyof the needed data elements are mi ssing the Laboratory cannot compute an raysa mation of the glomerul ar filtration rate . CREATININE (test code 1.5 mg/dL 0.6-1.5 N = CREAT) BUN/CREATININE RATIO 17.3 12.0-20.0 N (test code = BUN/CREA) CALCIUM (test code = 8.7 mg/dL 8.5-10.1 N CA) Spec Comments: While on insulin dripComments to Phleb: Increase to Q 1hour if less than [id number] 12:54:00 Test Item Value Reference Range Interpretation Comments PHOSPHOROUS (test code = PHOS) 2.9 mg/dL 2.5-4.9 N Spec Comments: While on insulin dripComments to Phleb: Increase to Q 1hour if less than [id number] 12:54:00 Test Item Value Reference Range Interpretation Comments MAGNESIUM (test code = MAG) 2.2 mg/dL 1.8-2.4 N Spec Comments: While on insulin dripComments to Phleb: Increase to Q 1hour if less than [id number] 12:10:00 Test Item Value Reference Range Interpretation Comments GLUBED (test code = GLUBED) 153 mg/dL 65-99 H [id number] 07:17:00 Test Item Value Reference Range Interpretation Comments GLUBED (test code = GLUBED) 117 mg/dL 65-99 H BASIC METABOLIC [id number] 06:42:00 Test Item Value Reference Range Interpretation Comments SODIUM (test code = 141 mmol/L 135-145 N NA) POTASSIUM (test code 3.7 mmol/L 3.5-5.1 N = K) CHLORIDE (test code = 112 mmol/L 98-107 H CL) CARBON DIOXIDE (test 24 mmol/L 21-32 N code = CO2) ANION GAP (test code 8.7 2.0-16.0 = GAP) GLUCOSE (test code = 147 mg/dL 65-99 H GLU) BLOOD UREA NITROGEN 29 mg/dL 4-23 H (test code = BUN) GLOMERULAR FILTRATION 42 ml/min 60-115 L The es timated RATE (test code = glomerular filtration GFR) rate is compute d usingpatient ra ce, age (>18), sex, and serum creatinine. If anyof the needed data elements are mi ssing the Laboratory cannot compute an raysa mation of the glomerul ar filtration rate . CREATININE (test code 1.6 mg/dL 0.6-1.5 H = CREAT) BUN/CREATININE RATIO 18.1 12.0-20.0 N (test code = BUN/CREA) CALCIUM (test code = 8.5 mg/dL 8.5-10.1 N CA) Spec Comments: While on insulin dripComments to Phleb: Increase to Q 1hour if less than [id number] 06:42:00 Test Item Value Reference Range Interpretation Comments PHOSPHOROUS (test code = PHOS) 2.0 mg/dL 2.5-4.9 L Spec Comments: While on insulin dripComments to Phleb: Increase to Q 1hour if less than [id number] 06:42:00 Test Item Value Reference Range Interpretation Comments MAGNESIUM (test code = MAG) 2.7 mg/dL 1.8-2.4 H Spec Comments: While on insulin dripComments to Phleb: Increase to Q 1hour if less than 3.3CBC W/AUTO [id number] 06:23:00 Test Item Value Reference Range Interpretation Comments WHITE BLOOD CELL (test code = 7.8 10 3/uL 4.5-11.0 N WBC) RED BLOOD CELL (test code = 3.33 10 6/uL 3.50-5.50 L RBC) HEMOGLOBIN (test code = HGB) 9.5 g/dL 12.0-16.0 L HEMATOCRIT (test code = HCT) 28.8 % 37.0-55.0 L MEAN CELL VOLUME (test code = 87 fL 81-102 N MCV) MEAN CELL HGB (test code = 28.5 pg 26.0-34.0 N MCH) MEAN CELL HGB CONCENTRATION 33.0 % 31.0-37.0 N (test code = MCHC) RED CELL DISTRIBUTION WIDTH 13.7 % 11.5-14.5 N (test code = RDW) RED CELL DISTRIBUTION WIDTH SD 42.6 fL 36.4-46.3 N (test code = RDW-SD) PLATELET COUNT (test code = 196 10 3/uL 150-400 N PLT) MEAN PLATELET VOLUME (test 11.1 fl 9.0-12.6 N code = MPV) NEUTROPHIL % (test code = NT%) 70.1 % 33.0-76.0 N IMMATURE GRANULOCYTE % (test 0.5 % 0.0-1.0 N code = IG%) LYMPHOCYTE % (test code = LY%) 16.9 % 14.0-56.4 N MONOCYTE % (test code = MO%) 11.7 % 0.0-12.9 N EOSINOPHIL % (test code = EO%) 0.5 % 0.0-7.0 N BASOPHIL % (test code = BA%) 0.3 % 0-2.0 N NUCLEATED RBC % (test code = 0.0 % 0-0.2 N NRBC%) NEUTROPHIL # (test code = NT#) 5.47 10 3/uL 1.5-7.0 N IMMATURE GRANULOCYTE # (test 0.040 x10 3/uL 0.000-0.100 N code = IG#) LYMPHOCYTE # (test code = LY#) 1.32 10 3/uL 1.50-4.00 L MONOCYTE # (test code = MO#) 0.91 10 3/uL 0.20-0.80 H EOSINOPHIL # (test code = EO#) 0.04 10 3/uL 0.0-0.5 N BASOPHIL # (test code = BA#) 0.02 10 3/uL 0.0-0.1 N [id number] 06:10:00 Test Item Value Reference Range Interpretation Comments GLUBED (test code = GLUBED) 156 mg/dL 65-99 H [id number] 05:22:00 Test Item Value Reference Range Interpretation Comments GLUBED (test code = GLUBED) 170 mg/dL 65-99 H [id number] 04:01:00 Test Item Value Reference Range Interpretation Comments GLUBED (test code = GLUBED) 206 mg/dL 65-99 H [id number] 03:13:00 Test Item Value Reference Range Interpretation Comments GLUBED (test code = GLUBED) 195 mg/dL 65-99 H [id number] 02:05:00 Test Item Value Reference Range Interpretation Comments GLUBED (test code = GLUBED) 244 mg/dL 65-99 H [id number] 00:45:00 Test Item Value Reference Range Interpretation Comments GLUBED (test code = GLUBED) 237 mg/dL 65-99 H BASIC METABOLIC [id number] 00:41:00 Test Item Value Reference Range Interpretation Comments SODIUM (test code = 141 mmol/L 135-145 N NA) POTASSIUM (test code 3.9 mmol/L 3.5-5.1 N = K) CHLORIDE (test code = 113 mmol/L 98-107 H CL) CARBON DIOXIDE (test 20 mmol/L 21-32 L code = CO2) ANION GAP (test code 11.9 2.0-16.0 = GAP) GLUCOSE (test code = 233 mg/dL 65-99 H GLU) BLOOD UREA NITROGEN 31 mg/dL 4-23 H (test code = BUN) GLOMERULAR FILTRATION 42 ml/min 60-115 L The es timated RATE (test code = glomerular filtration GFR) rate is compute d usingpatient ra ce, age (>18), sex, and serum creatinine. If anyof the needed data elements are mi ssing the Laboratory cannot compute an raysa mation of the glomerul ar filtration rate . CREATININE (test code 1.6 mg/dL 0.6-1.5 H = CREAT) BUN/CREATININE RATIO 19.4 12.0-20.0 N (test code = BUN/CREA) CALCIUM (test code = 8.4 mg/dL 8.5-10.1 L CA) Spec Comments: While on insulin dripComments to Phleb: Increase to Q 1hour if less than [id number] 00:41:00 Test Item Value Reference Range Interpretation Comments PHOSPHOROUS (test code = PHOS) 2.4 mg/dL 2.5-4.9 L Spec Comments: While on insulin dripComments to Phleb: Increase to Q 1hour if less than [id number] 00:41:00 Test Item Value Reference Range Interpretation Comments MAGNESIUM (test code = MAG) 1.7 mg/dL 1.8-2.4 L Spec Comments: While on insulin dripComments to Phleb: Increase to Q 1hour if less than [id number] 00:03:00 Test Item Value Reference Range Interpretation Comments GLUBED (test code = GLUBED) 258 mg/dL 65-99 H [id number] 22:37:00 Test Item Value Reference Range Interpretation Comments GLUBED (test code = GLUBED) 231 mg/dL 65-99 H [id number] 21:38:00 Test Item Value Reference Range Interpretation Comments GLUBED (test code = GLUBED) 207 mg/dL 65-99 H BASIC METABOLIC [id number] 21:37:00 Test Item Value Reference Range Interpretation Comments SODIUM (test code = 142 mmol/L 135-145 N NA) POTASSIUM (test code 4.4 mmol/L 3.5-5.1 N = K) CHLORIDE (test code = 113 mmol/L 98-107 H CL) CARBON DIOXIDE (test 16 mmol/L 21-32 L code = CO2) ANION GAP (test code 17.4 2.0-16.0 H = GAP) GLUCOSE (test code = 203 mg/dL 65-99 H GLU) BLOOD UREA NITROGEN 34 mg/dL 4-23 H (test code = BUN) GLOMERULAR FILTRATION 39 ml/min 60-115 L The es timated RATE (test code = glomerular filtration GFR) rate is compute d usingpatient ra ce, age (>18), sex, and serum creatinine. If anyof the needed data elements are mi ssing the Laboratory cannot compute an raysa mation of the glomerul ar filtration rate . CREATININE (test code 1.7 mg/dL 0.6-1.5 H = CREAT) BUN/CREATININE RATIO 20.0 12.0-20.0 N (test code = BUN/CREA) CALCIUM (test code = 8.9 mg/dL 8.5-10.1 N CA) Spec Comments: While on insulin dripComments to Phleb: Increase to Q 1hour if less than [id number] 21:37:00 Test Item Value Reference Range Interpretation Comments PHOSPHOROUS (test code = PHOS) 3.2 mg/dL 2.5-4.9 N Spec Comments: While on insulin dripComments to Phleb: Increase to Q 1hour if less than [id number] 21:37:00 Test Item Value Reference Range Interpretation Comments MAGNESIUM (test code = MAG) 1.8 mg/dL 1.8-2.4 N Spec Comments: While on insulin dripComments to Phleb: Increase to Q 1hour if less than [id number] 20:50:00 Test Item Value Reference Range Interpretation Comments GLUBED (test code = GLUBED) 189 mg/dL 65-99 H [id number] 20:36:00 Test Item Value Reference Range Interpretation Comments POTASSIUM (test code = K) 4.4 mmol/L 3.5-5.1 N Spec Comments: While on insulin dripComments to Phleb: Increase to Q 1hour if less than [id number] 19:39:00 Test Item Value Reference Range Interpretation Comments GLUBED (test code = GLUBED) 207 mg/dL 65-99 H [id number] 18:24:00 Test Item Value Reference Range Interpretation Comments GLUBED (test code = GLUBED) 246 mg/dL 65-99 H [id number] 17:49:00 Test Item Value Reference Range Interpretation Comments GLUBED (test code = GLUBED) 255 mg/dL 65-99 H [id number] 16:34:00 Test Item Value Reference Range Interpretation Comments GLUBED (test code = GLUBED) 337 mg/dL 65-99 H LACTIC [id number] 15:33:00 Test Item Value Reference Range Interpretation Comments LACTIC ACID (test code = LACT) 1.6 mmol/L 0.4-2.0 N [id number] 15:27:00 Test Item Value Reference Range Interpretation Comments GLUBED (test code = GLUBED) 371 mg/dL 65-99 H [id number] 15:25:00 Test Item Value Reference Range Interpretation Comments AMYLASE (test code = MINOO) 36 U/L 25-115 N [id number] 15:25:00 Test Item Value Reference Range Interpretation Comments LIPASE (test code = LIP) 64 U/L 73-393 L CBC W/AUTO [id number] 15:12:00 Test Item Value Reference Range Interpretation Comments WHITE BLOOD CELL (test code = 7.5 10 3/uL 4.5-11.0 N WBC) RED BLOOD CELL (test code = 3.73 10 6/uL 3.50-5.50 N RBC) HEMOGLOBIN (test code = HGB) 10.7 g/dL 12.0-16.0 L HEMATOCRIT (test code = HCT) 32.9 % 37.0-55.0 L MEAN CELL VOLUME (test code = 88 fL 81-102 N MCV) MEAN CELL HGB (test code = 28.7 pg 26.0-34.0 N MCH) MEAN CELL HGB CONCENTRATION 32.5 % 31.0-37.0 N (test code = MCHC) RED CELL DISTRIBUTION WIDTH 13.6 % 11.5-14.5 N (test code = RDW) RED CELL DISTRIBUTION WIDTH SD 44.0 fL 36.4-46.3 N (test code = RDW-SD) PLATELET COUNT (test code = 213 10 3/uL 150-400 N PLT) MEAN PLATELET VOLUME (test 11.7 fl 9.0-12.6 N code = MPV) NEUTROPHIL % (test code = NT%) 86.6 % 33.0-76.0 H IMMATURE GRANULOCYTE % (test 0.8 % 0.0-1.0 N code = IG%) LYMPHOCYTE % (test code = LY%) 8.3 % 14.0-56.4 L MONOCYTE % (test code = MO%) 3.9 % 0.0-12.9 N EOSINOPHIL % (test code = EO%) 0.1 % 0.0-7.0 N BASOPHIL % (test code = BA%) 0.3 % 0-2.0 N NUCLEATED RBC % (test code = 0.0 % 0-0.2 N NRBC%) NEUTROPHIL # (test code = NT#) 6.48 10 3/uL 1.5-7.0 N IMMATURE GRANULOCYTE # (test 0.060 x10 3/uL 0.000-0.100 N code = IG#) LYMPHOCYTE # (test code = LY#) 0.62 10 3/uL 1.50-4.00 L MONOCYTE # (test code = MO#) 0.29 10 3/uL 0.20-0.80 N EOSINOPHIL # (test code = EO#) 0.01 10 3/uL 0.0-0.5 N BASOPHIL # (test code = BA#) 0.02 10 3/uL 0.0-0.1 N [id number] 14:08:00 Test Item Value Reference Range Interpretation Comments GLUBED (test code = 411 mg/dL 65-99 HH CRITICAL RESULT - GLUBED) TESTING PERFORM ED BY PRIMARY CAREGIV ER PROTHROMBIN [id number] 13:45:00 Test Item Value Reference Range Interpretation Comments PROTHROMBIN TIME 10.9 SECONDS 9.4-12.5 N PATIENT (test code = PTP) INTERNATIONAL 0.9 RATIO 0.8-1.1 N THE INR IS USE FUL ONLY NORMAL RATIO (test FOR MONIT ORING code = INR) ANTICOAGULANT THERAPY.IT MAY BE UNRELIABLE IN T HE INITIAL PHASE O F ANTICOAGULATION AND IN UNSTABLE PATIEN TS. 2.0-3.0 is the recommended INR for the following:Preve ntion of venous thrombol ism in high-risk patients;treatm ent of venous thrombos is and pulmonary embol ism aftera course o f heparin; preven tion of systemic emboli sm in avariety of con dition, including atria l fibrillation andprosthetic t issue heart valves.2. 5-3.5 is the recommended INR for the following:Prost hetic mechanical hear t values and/or recurren t systemicemboliz ation. THROMBOPLASTIN TIME [id number] 13:45:00 Test Item Value Reference Range Interpretation Comments THROMBOPLASTIN TIME PARTIAL 30.8 SECONDS 25.1-36.5 N (test code = PTT) [id number] 13:41:00 Test Item Value Reference Range Interpretation Comments GLUBED (test code = 449 mg/dL 65-99 HH CRITICAL RESULT - GLUBED) TESTING PERFORM ED BY PRIMARY CAREGIV ER URINALYSIS [id number] 13:33:00 Test Item Value Reference Range Interpretation Comments UA COLOR (test code = COLU) YELLOW YELLOW UA APPEARANCE (test code = CLEAR CLEAR APPU) UA GLUCOSE DIPSTICK (test 3+ NEGATIVE A code = DGLUU) UA BILIRUBIN DIPSTICK (test NEGATIVE NEGATIVE code = BILU) UA KETONE DIPSTICK (test code 2+ NEGATIVE A = KETU) UA SPECIFIC GRAVITY (test 1.017 1.005-1.025 N code = SGU) UA BLOOD DIPSTICK (test code NEGATIVE NEGATIVE = EVELIN) UA PH DIPSTICK (test code = 5 5.0-8.0 KALEY) UA PROTEIN DIPSTICK (test NEGATIVE NEGATIVE code = PROU) UA UROBILINOGEN DIPSTICK Negative EU/dL 0.1-0.2 (test code = URO) UA NITRITE DIPSTICK (test NEGATIVE NEGATIVE code = EDMUND) UA LEUKOCYTE ESTERASE NEGATIVE NEGATIVE DIPSTICK (test code = LEUU) UA WBC (test code = WBCU) 0-2 /hpf 0-3 UA RBC (test code = RBCU) 0-2 /hpf 0-3 UA EPITHELIAL CELLS (test RARE /lpf code = EPIU) UA BACTERIA (test code = NONE SEEN /HPF NEGATIVE BACU) UA HYALINE CAST (test code = 0-1 /lpf NONE SEEN HYALU) UA MUCUS (test code = MUCU) OCCASIONAL /lpf HGBA1C - GLYCOSYLATED [id number] 13:30:00 Test Item Value Reference Range Interpretation Comments GLYCOSYLATED 13.3 4.5-5.9 H The [place] HEMOGLOBIN (HA1C) Associatio n recommends a (test code = GLYHGB) therape uticrange of <7.0% Hemoglobin A1c for patients with diabetesmellitu s (Type 2 diabetes). COMPREHENSIVE METABOLIC [id number] 12:47:00 Test Item Value Reference Range Interpretation Comments SODIUM (test code = 137 mmol/L 135-145 N NA) POTASSIUM (test code 4.8 mmol/L 3.5-5.1 N = K) CHLORIDE (test code = 102 mmol/L 98-107 N CL) CARBON DIOXIDE (test 15 mmol/L 21-32 L code = CO2) GLUCOSE (test code = 496 mg/dL 65-99 HH Critic al Value GLU) reported toFirs t Name:JORGE L morales Name:BENJA Tuttle READ BACK AND VERIFIEDby CARRI REINOSO, on 04/05/19, @ 2110. BLOOD UREA NITROGEN 35 mg/dL 4-23 H (test code = BUN) GLOMERULAR FILTRATION 36 ml/min 60-115 L The es timated RATE (test code = glomerular filtration GFR) rate is compute d usingpatient ra ce, age (>18), sex, and serum creatinine. If anyof the needed data elements are mi ssing the Laboratory cannot compute an raysa mation of the glomerul ar filtration rate . CREATININE (test code 1.8 mg/dL 0.6-1.5 H = CREAT) BUN/CREATININE RATIO 19.4 12.0-20.0 N (test code = BUN/CREA) TOTAL PROTEIN (test 7.9 g/dL 6.4-8.2 N code = PROT) ALBUMIN (test code = 4.0 g/dL 3.4-5.0 N ALB) CALCIUM (test code = 9.4 mg/dL 8.5-10.1 N CA) BILIRUBIN TOTAL (test 0.6 mg/dL 0.2-1.2 N code = BILT) SGOT/AST (test code = 20 U/L 15-37 N AST) SGPT/ALT (test code = 24 U/L 6-50 N ALT) ALKALINE PHOSPHATASE 103 U/L 45-117 N (test code = ALKP) [id number] 12:47:00 Test Item Value Reference Range Interpretation Comments LIPASE (test code = LIP) 86 U/L 73-393 N CARDIAC ENZYMES [id number] 12:47:00 Test Item Value Reference Range Interpretation Comments CREATINE KINASE (CK) (test code = 155 U/L 26-308 N CK) TROPONIN-I (test code = TROPI) 0.05 ng/mL 0.00-0.07 N ACETONE [id number] 12:47:00 Test Item Value Reference Range Interpretation Comments ACETONE QUAL (test code = ACETNQL) SMALL NEGATIVE A LACTIC ACID [id number] 12:36:00 Test Item Value Reference Range Interpretation Comments LACTIC ACID POC (test code = 1.99 mmol/L 0.36-1.70 H LACTP) CBC W/AUTO [id number] 12:35:00 Test Item Value Reference Range Interpretation Comments WHITE BLOOD CELL (test code = 6.3 10 3/uL 4.5-11.0 WBC) RED BLOOD CELL (test code = 3.87 10 6/uL 3.50-5.50 N RBC) HEMOGLOBIN (test code = HGB) 11.2 g/dL 12.0-16.0 L HEMATOCRIT (test code = HCT) 33.9 % 37.0-55.0 L MEAN CELL VOLUME (test code = 88 fL 81-102 MCV) MEAN CELL HGB (test code = 28.9 pg 26.0-34.0 N MCH) MEAN CELL HGB CONCENTRATION 33.0 % 31.0-37.0 N (test code = MCHC) RED CELL DISTRIBUTION WIDTH 13.4 % 11.5-14.5 N (test code = RDW) RED CELL DISTRIBUTION WIDTH SD 43.0 fL 36.4-46.3 N (test code = RDW-SD) PLATELET COUNT (test code = 205 10 3/uL 150-400 N PLT) MEAN PLATELET VOLUME (test 12.1 fl 9.0-12.6 N code = MPV) NEUTROPHIL % (test code = NT%) 85.1 % 33.0-76.0 H IMMATURE GRANULOCYTE % (test 0.6 % 0.0-1.0 N code = IG%) LYMPHOCYTE % (test code = LY%) 10.6 % 14.0-56.4 L MONOCYTE % (test code = MO%) 3.0 % 0.0-12.9 N EOSINOPHIL % (test code = EO%) 0.2 % 0.0-7.0 N BASOPHIL % (test code = BA%) 0.5 % 0-2.0 N NUCLEATED RBC % (test code = 0.0 % 0-0.2 N NRBC%) NEUTROPHIL # (test code = NT#) 5.32 10 3/uL 1.5-7.0 N IMMATURE GRANULOCYTE # (test 0.040 x10 3/uL 0.000-0.100 N code = IG#) LYMPHOCYTE # (test code = LY#) 0.66 10 3/uL 1.50-4.00 L MONOCYTE # (test code = MO#) 0.19 10 3/uL 0.20-0.80 L EOSINOPHIL # (test code = EO#) 0.01 10 3/uL 0.0-0.5 N BASOPHIL # (test code = BA#) 0.03 10 3/uL 0.0-0.1 N COMPREHENSIVE METABOLIC [id number] 12:31:00 Test Item Value Reference Range Interpretation Comments SODIUM (test code = NA) mmol/L 135-145 POTASSIUM (test code = K) mmol/L 3.5-5.1 CHLORIDE (test code = CL) mmol/L 98-107 CARBON DIOXIDE (test code = CO2) mmol/L 21-32 GLUCOSE (test code = GLU) mg/dL 65-99 BLOOD UREA NITROGEN (test code = BUN) mg/dL 4-23 GLOMERULAR FILTRATION RATE (test code ml/min 60-115 = GFR) CREATININE (test code = CREAT) mg/dL 0.6-1.5 BUN/CREATININE RATIO (test code = 12.0-20.0 BUN/CREA) TOTAL PROTEIN (test code = PROT) g/dL 6.4-8.2 ALBUMIN (test code = ALB) g/dL 3.4-5.0 CALCIUM (test code = CA) mg/dL 8.5-10.1 BILIRUBIN TOTAL (test code = BILT) mg/dL 0.2-1.2 SGOT/AST (test code = AST) U/L 15-37 SGPT/ALT (test code = ALT) U/L 6-50 ALKALINE PHOSPHATASE (test code = U/L 45-117 ALKP) [id number] 12:31:00 Test Item Value Reference Range Interpretation Comments LIPASE (test code = LIP) U/L 73-393 CARDIAC ENZYMES [id number] 12:31:00 Test Item Value Reference Range Interpretation Comments CREATINE KINASE (CK) (test code = CK) U/L 26-308 TROPONIN-I (test code = TROPI) ng/mL 0.00-0.07 ACETONE [id number] 12:31:00 Test Item Value Reference Range Interpretation Comments ACETONE QUAL (test code = ACETNQL) SMALL NEGATIVE A VENOUS BLOOD [id number] 11:47:00 Test Item Value Reference Range Interpretation Comments VENOUS BLOOD GAS PH 7.16 pH 7.32-7.42 LL Critical Value reported (test code = PHV) toFirst Na me:JORGE L Last Name:VIMAL Avelar,RNRESU LTS READ BACK A ND VERIFIEDby [facility].ALLAN[facility], on 04/05/19, @ 1140. VENOUS BLOOD GAS 31 mmHg 41-51 L PCO2 (test code = PCO2V) VENOUS BLOOD GAS PO2 42 mmHg 25-40 H (test code = PO2V) VBG HCO3 (test code 11 mmol/L 24-25 L = HCO3V) VBG BASE EXCESS -16 mmol/L -5-5 L (test code = GLENN) VENOUS BLOOD GAS O2 79 % 70-75 H SAT (test code = O2SATV) IS ABG TO BE DRAWN ON ROOM AIR? yIS THE PATIENT ON OXYGEN? [id number] 10:55:00 Test Item Value Reference Range Interpretation Comments GLUBED (test code = 477 mg/dL 65-99 HH CRITICAL RESULT - GLUBED) TESTING PERFORM ED BY PRIMARY CAREGIV ER [id number] 04:05:00 Test Item Value Reference Range Interpretation Comments GLUBED (test code = GLUBED) 188 mg/dL 65-99 H B-TYPE NATRIURETIC [id number] 02:52:00 Test Item Value Reference Range Interpretation Comments B-TYPE NATRIURETIC PEPTIDE (test 66 pg/mL 0-100 N code = BNP) - CT HEAD/BRAIN W/O [id number] 02:18:00Patient Name: DANIELE HINKLE Unit No: [id number] EXAMS: CPT CODE: [id number] CT HEAD/BRAIN W/O CONT 44500 EXAM: - CT HEAD/BRAIN W/O CONT Location code:C3 HISTORY: 68 years -old Female with REEVES, NUMBNESS TECHNIQUE: Axial CT images from the skull base to the vertex without intravenous contrast. Coronal and sagittal reformatted images were created from the data set. One or more of the following dosereduction techniques were used: Automated exposure control, adjustment of the mA and/or kV according to patient size, and/or utilization of iterative reconstruction technique. COMPARISON: 03/14/2019 FINDINGS: Intracranial: No abnormal brain parenchymal density. No evidence of acute infarction, intracranial hemorrhage, mass or mass effect, or abnormal extra-axial fluid collection. The ventricular system and sulci are age appropriate. There is mild diminished attenuation involving the periventricularand subcortical white matter compatible with mild microvascular chronic ischemic changes. The density in the larger dural sinuses is grossly normal. Bones: There is no evidence of acute displaced calvarial fracture. Sinuses: Mild ethmoid mucosal thickening is present.The mastoid air cells are clear. Orbits/Soft Tissues: High-density material surrounding the left globe. The right globe is calcified and atrophic. The appearance is similar to prior study. The visualized soft tissues are unremarkable. IMPRESSION: 1. Stable CT brain. No intracranial hemorrhage or other acute intracranial abnormality. at 0218 Reported and signed by: Mark Menendez MD Name: DANIELE HINKLE [facility] [place] Phys: [place] [address] [address] [facility] : 1950 Age: 68 Sex: [place] [phone] Loc: [place].ERS Exam Date: 04/03/2019 Status: REG ER PH: FAX: PAGE 1 Signed Report (CONTINUED) Patient Name: DANIELE HINKLE Unit No: [id number] EXAMS: CPT CODE: [id number] CT HEAD/BRAIN W/O CONT 56981 (Continued) CC: Self Referred; Solomon Hammond MD Technologist: Brad Funez CTDI: 51.58 DLP: 830.4 Trscr Dt/Tm: 04/03/2019 (217) by:[email or web address] Electronic Signature Date/Time: 04/03/2019 (217)Orig Print D/T: S: 04/03/2019 (022) Name: DANIELE HINKLE [facility] [place] Phys: [place] [address] [facility] : 1950ge: 68 Sex: [place] [phone] Loc: [place].ERS Exam Date: 04/03/2019 Status: REGER PH: FAX: PAGE 2 Signed ReportURINALYSIS [id number] 02:00:00 Test Item Value Reference Range Interpretation Comments UA COLOR (test code = COLU) Straw YELLOW UA APPEARANCE (test code = CLEAR CLEAR APPU) UA GLUCOSE DIPSTICK (test 3+ NEGATIVE A code = DGLUU) UA BILIRUBIN DIPSTICK (test NEGATIVE NEGATIVE code = BILU) UA KETONE DIPSTICK (test code NEGATIVE NEGATIVE = KETU) UA SPECIFIC GRAVITY (test 1.018 1.005-1.025 N code = SGU) UA BLOOD DIPSTICK (test code 1+ NEGATIVE A = EVELIN) UA PH DIPSTICK (test code = 7 5.0-8.0 KALEY) UA PROTEIN DIPSTICK (test NEGATIVE NEGATIVE code = PROU) UA UROBILINOGEN DIPSTICK Negative EU/dL 0.1-0.2 (test code = URO) UA NITRITE DIPSTICK (test NEGATIVE NEGATIVE code = EDMUND) UA LEUKOCYTE ESTERASE TRACE NEGATIVE A DIPSTICK (test code = LEUU) UA WBC (test code = WBCU) 3-5 /hpf 0-3 A UA RBC (test code = RBCU) 0-2 /hpf 0-3 UA EPITHELIAL CELLS (test FEW /lpf code = EPIU) UA BACTERIA (test code = NONE SEEN /HPF NEGATIVE BACU) UA MUCUS (test code = MUCU) OCCASIONAL /lpf BASIC METABOLIC [id number] 01:22:00 Test Item Value Reference Range Interpretation Comments SODIUM (test code = 135 mmol/L 135-145 N NA) POTASSIUM (test code 4.1 mmol/L 3.5-5.1 N = K) CHLORIDE (test code = 103 mmol/L 98-107 N CL) CARBON DIOXIDE (test 26 mmol/L 21-32 N code = CO2) ANION GAP (test code 10.1 2.0-16.0 N = GAP) GLUCOSE (test code = 459 mg/dL 65-99 HH Critic al Value GLU) reported toFbryce t Name:NEAL morales Name:ANNY CASTORENA ESULTS READ BACK AND VERIFIEDby CARRI DUGAN, on 04/03/19, @ 0100. BLOOD UREA NITROGEN 25 mg/dL 4-23 H (test code = BUN) GLOMERULAR FILTRATION 53 ml/min 60-115 L The es timated RATE (test code = glomerular filtration GFR) rate is compute d usingpatient ra ce, age (>18), sex, and serum creatinine. If anyof the needed data elements are mi ssing the Laboratory cannot compute an raysa mation of the glomerul ar filtration rate . CREATININE (test code 1.3 mg/dL 0.6-1.5 N = CREAT) BUN/CREATININE RATIO 19.2 12.0-20.0 N (test code = BUN/CREA) CALCIUM (test code = 8.4 mg/dL 8.5-10.1 L CA) [id number] 01:22:00 Test Item Value Reference Range Interpretation Comments TROPONIN-I (test code = TROPI) < 0.02 ng/mL 0.00-0.07 N ACETONE [id number] 01:22:00 Test Item Value Reference Range Interpretation Comments ACETONE QUAL (test code = ACETNQL) NEGATIVE NEGATIVE BASIC METABOLIC [id number] 01:01:00 Test Item Value Reference Range Interpretation Comments SODIUM (test code = 135 mmol/L 135-145 N NA) POTASSIUM (test code 4.1 mmol/L 3.5-5.1 N = K) CHLORIDE (test code = 103 mmol/L 98-107 N CL) CARBON DIOXIDE (test 26 mmol/L 21-32 N code = CO2) ANION GAP (test code 10.1 2.0-16.0 N = GAP) GLUCOSE (test code = 459 mg/dL 65-99 HH Critic al Value GLU) reported Darrell morales Name:NEAL morales Name:ANNY CASTORENA ESULTS READ BACK AND VERIFIEDby CARRI DUGAN, on 04/03/19, @ 0100. BLOOD UREA NITROGEN 25 mg/dL 4-23 H (test code = BUN) GLOMERULAR FILTRATION 53 ml/min 60-115 L The es timated RATE (test code = glomerular filtration GFR) rate is compute d usingpatient ra ce, age (>18), sex, and serum creatinine. If anyof the needed data elements are mi ssing the Laboratory cannot compute an raysa mation of the glomerul ar filtration rate . CREATININE (test code 1.3 mg/dL 0.6-1.5 N = CREAT) BUN/CREATININE RATIO 19.2 12.0-20.0 N (test code = BUN/CREA) CALCIUM (test code = 8.4 mg/dL 8.5-10.1 L CA) [id number] 01:01:00 Test Item Value Reference Range Interpretation Comments TROPONIN-I (test code = TROPI) < 0.02 ng/mL 0.00-0.07 N ACETONE [id number] 01:01:00 Test Item Value Reference Range Interpretation Comments ACETONE QUAL (test code = ACETNQL) NEGATIVE CBC W/AUTO [id number] 00:54:00 Test Item Value Reference Range Interpretation Comments WHITE BLOOD CELL (test code = 2.6 10 3/uL 4.5-11.0 L WBC) RED BLOOD CELL (test code = 3.96 10 6/uL 3.50-5.50 N RBC) HEMOGLOBIN (test code = HGB) 11.4 g/dL 12.0-16.0 L HEMATOCRIT (test code = HCT) 33.4 % 37.0-55.0 L MEAN CELL VOLUME (test code = 84 fL 81-102 N MCV) MEAN CELL HGB (test code = 28.8 pg 26.0-34.0 N MCH) MEAN CELL HGB CONCENTRATION 34.1 % 31.0-37.0 N (test code = MCHC) RED CELL DISTRIBUTION WIDTH 13.2 % 11.5-14.5 N (test code = RDW) RED CELL DISTRIBUTION WIDTH SD 40.8 fL 36.4-46.3 N (test code = RDW-SD) PLATELET COUNT (test code = 193 10 3/uL 150-400 N PLT) MEAN PLATELET VOLUME (test 11.5 fl 9.0-12.6 N code = MPV) NEUTROPHIL % (test code = NT%) 48.8 % 33.0-76.0 N IMMATURE GRANULOCYTE % (test 0.4 % 0.0-1.0 N code = IG%) LYMPHOCYTE % (test code = LY%) 32.0 % 14.0-56.4 N MONOCYTE % (test code = MO%) 11.3 % 0.0-12.9 N EOSINOPHIL % (test code = EO%) 6.3 % 0.0-7.0 N BASOPHIL % (test code = BA%) 1.2 % 0-2.0 N NUCLEATED RBC % (test code = 0.0 % 0-0.2 N NRBC%) NEUTROPHIL # (test code = NT#) 1.25 10 3/uL 1.5-7.0 L IMMATURE GRANULOCYTE # (test 0.010 x10 3/uL 0.000-0.100 N code = IG#) LYMPHOCYTE # (test code = LY#) 0.82 10 3/uL 1.50-4.00 L MONOCYTE # (test code = MO#) 0.29 10 3/uL 0.20-0.80 N EOSINOPHIL # (test code = EO#) 0.16 10 3/uL 0.0-0.5 N BASOPHIL # (test code = BA#) 0.03 10 3/uL 0.0-0.1 N - XR CHEST 1 [id number] 23:56:00Patient Name: DANIELE HINKLE Unit No: [id number] EXAMS: CPT CODE: [id number] XR CHEST 1 V 41860 Location of dictation: B2 Portable chest one view. HISTORY: Chest Pain COMMENT: Compared to 019. Heart and mediastinum are normal and stable. No new consolidation, pneumothorax or effusion is seen. Visualized soft tissues and skeletal structures are unremarkable. There has been no significantchanges. IMPRESSION: No active disease in the chest. Electronically Signed by Christal Brooks MD on 06/2018 at 0733 Reported and signed by: Christal Brooks MD CC: Solomon Hammond MD Technologist: Diana Romero; Daron Garnica [facility] Time: DAP (Gy m2): Air Kerma (mGy): Trscr Dt/Tm: 04/02/2019 (9987) by:DaveLOURDES COUNSELING CENTER Electronic Signature Date/Time: 04/02/2019 (2378)Orig Print D/T: S: 04/02/2019 (9884) [facility] [place] [place] [address] : 1950 Age: 68 Sex: [place] [phone] Loc: [place].ERS Exam Date: 04/02/2019 Status: REG ER PH: FAX: PAGE 1 Signed Report [id number] 16:05:00 Test Item Value Reference Range Interpretation Comments GLUBED (test code = GLUBED) 276 mg/dL 65-99 H HGBA1C - GLYCOSYLATED [id number] 13:48:00 Test Item Value Reference Range Interpretation Comments GLYCOSYLATED 12.3 4.5-5.9 H The [place] [employer] HEMOGLOBIN (HA1C) Associatio n recommends a (test code = GLYHGB) therape uticrange of <7.0% Hemoglobin A1c for patients with diabetesmellitu s (Type 2 diabetes). [id number] 11:55:00 Test Item Value Reference Range Interpretation Comments GLUBED (test code = GLUBED) 114 mg/dL 65-99 H [id number] 07:37:00 Test Item Value Reference Range Interpretation Comments MAGNESIUM (test code = MAG) 1.5 mg/dL 1.8-2.4 L [id number] 06:35:00 Test Item Value Reference Range Interpretation Comments GLUBED (test code = GLUBED) 152 mg/dL 65-99 H BASIC METABOLIC [id number] 05:34:00 Test Item Value Reference Range Interpretation Comments SODIUM (test code = 139 mmol/L 135-145 N NA) POTASSIUM (test code 3.7 mmol/L 3.5-5.1 N = K) CHLORIDE (test code = 106 mmol/L 98-107 N CL) CARBON DIOXIDE (test 28 mmol/L 21-32 N code = CO2) ANION GAP (test code 8.7 2.0-16.0 = GAP) GLUCOSE (test code = 214 mg/dL 65-99 H GLU) BLOOD UREA NITROGEN 24 mg/dL 4-23 H (test code = BUN) GLOMERULAR FILTRATION 53 ml/min 60-115 L The es timated RATE (test code = glomerular filtration GFR) rate is compute d usingpatient ra ce, age (>18), sex, and serum creatinine. If anyof the needed data elements are mi ssing the Laboratory cannot compute an raysa mation of the glomerul ar filtration rate . CREATININE (test code 1.3 mg/dL 0.6-1.5 N = CREAT) BUN/CREATININE RATIO 18.5 12.0-20.0 N (test code = BUN/CREA) CALCIUM (test code = 8.7 mg/dL 8.5-10.1 N CA) [id number] 05:34:00 Test Item Value Reference Range Interpretation Comments TROPONIN-I (test code = TROPI) < 0.02 ng/mL 0.00-0.07 N CBC W/AUTO [id number] 05:30:00 Test Item Value Reference Range Interpretation Comments WHITE BLOOD CELL (test code = 3.3 10 3/uL 4.5-11.0 L WBC) RED BLOOD CELL (test code = 3.84 10 6/uL 3.50-5.50 N RBC) HEMOGLOBIN (test code = HGB) 10.9 g/dL 12.0-16.0 L HEMATOCRIT (test code = HCT) 32.4 % 37.0-55.0 L MEAN CELL VOLUME (test code = 84 fL 81-102 N MCV) MEAN CELL HGB (test code = 28.4 pg 26.0-34.0 N MCH) MEAN CELL HGB CONCENTRATION 33.6 % 31.0-37.0 N (test code = MCHC) RED CELL DISTRIBUTION WIDTH 13.1 % 11.5-14.5 N (test code = RDW) PLATELET COUNT (test code = 179 10 3/uL 150-400 N PLT) MEAN PLATELET VOLUME (test 11.5 fl 9.0-12.6 N code = MPV) NEUTROPHIL % (test code = NT%) 39.7 % 33.0-76.0 N IMMATURE GRANULOCYTE % (test 0.3 % 0.0-1.0 N code = IG%) LYMPHOCYTE % (test code = LY%) 40.3 % 14.0-56.4 N MONOCYTE % (test code = MO%) 11.2 % 0.0-12.9 N EOSINOPHIL % (test code = EO%) 7.3 % 0.0-7.0 H BASOPHIL % (test code = BA%) 1.2 % 0-2.0 N NEUTROPHIL # (test code = NT#) 1.31 10 3/uL 1.5-7.0 L IMMATURE GRANULOCYTE # (test 0.010 x10 3/uL 0.000-0.100 N code = IG#) LYMPHOCYTE # (test code = LY#) 1.33 10 3/uL 1.50-4.00 L MONOCYTE # (test code = MO#) 0.37 10 3/uL 0.20-0.80 N EOSINOPHIL # (test code = EO#) 0.24 10 3/uL 0.0-0.5 N BASOPHIL # (test code = BA#) 0.04 10 3/uL 0.0-0.1 N [id number] 01:25:00 Test Item Value Reference Range Interpretation Comments TROPONIN-I (test code = TROPI) < 0.02 ng/mL 0.00-0.07 N [id number] 22:14:00 Test Item Value Reference Range Interpretation Comments GLUBED (test code = GLUBED) 299 mg/dL 65-99 H [id number] 20:45:00 Test Item Value Reference Range Interpretation Comments GLUBED (test code = GLUBED) 202 mg/dL 65-99 H LIPID PROFILE (CORONARY RISK)2019-03-14 18:54:00 Test Item Value Reference Range Interpretation Comments TRIGLYCERIDES (test 89 mg/dL 0-149 N code = TRIG) CHOLESTEROL (test code 186 mg/dL 0-200 N = CHOL) CHOLESTEROL/HDL RATIO 3 1-6 N (test code = CHOLHDL) HDL CHOLESTEROL (test 67 mg/dL 40-60 H Accord ing to the code = HDL) [facility] ([facility]) an d theNational Cholesterol Edu cation Program (NCEP), an HDLcholesterol >or= 60mg/dL counts as a "negative" risk factor;its pres ence removes one ris k factor from the total count. LIPOPROTEIN LDL (test 99 mg/dL 0-100 N code = LDLC) NOT DRAWN IN ER AND ROLLED TO [id number] 18:54:00 Test Item Value Reference Range Interpretation Comments MAGNESIUM (test code = MAG) 1.6 mg/dL 1.8-2.4 L NOT DRAWN IN ER AND ROLLED TO [id number] 18:54:00 Test Item Value Reference Range Interpretation Comments TROPONIN-I (test code = TROPI) < 0.02 ng/mL 0.00-0.07 N NOT DRAWN IN ER AND ROLLED TO [id number] 17:32:00 Test Item Value Reference Range Interpretation Comments GLUBED (test code = GLUBED) 189 mg/dL 65-99 H - CT HEAD/BRAIN W/O [id number] 15:29:00Patient Name: DANIELE HINKLE Unit No: [id number] EXAMS: CPT CODE: [id number] CT HEAD/BRAIN W/OCONT 55106 EXAM: CT Head without contrast Location: A1 HISTORY: Generalized weakness COMPARISON: None available. TECHNIQUE: Multiple transaxial images of the brain were obtained without intravenous contrast using 5mm slices. One or more of the following dose reduction techniques were used: Automated exposure control, adjustment of the mA and/or kV according to patient size, and/or utilization of iterative reconstruction technique. DLP: 830 mGy-cm. FINDINGS: There is no acute intracranial hemorrhage. There is no mass, mass effect, midline shift or extra- axial fluid collection. Brain parenchymal volume and ventricular caliber are within normal limits. Bates-white differentiation is maintained. There is no evidence for acute major vessel infarct. Silicone oil is identified within the left globe. 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 Intraoral contents are otherwise within normal limits. There is mucosal thickening of bilateral maxillary sinuses and ethmoid air cells. Remaining paranasal sinuses are clear. Mastoid air cells are clear. Bones of the calvaria and skull base are intact. IMPRESSION: 1. No acute intracranial abnormality. No acute hemorrhage, mass lesion or infarct. 2. Right-sided phthisis bulbi. 3. Inflammatory disease of bilateral maxillary sinuses and ethmoid air cells. at 1524 Reported and signed by: Juan Jose Jacinto MD me: [facility] Natalia Desouza [address] : 1950 Age: 68 Sex: [place] [phone] Loc: [place] Exam Date: 03/14/2019 Status: REG ER PH: FAX: PAGE 1 Signed Report (CONTINUED) Patient Name: DANIELE HINKLE Unit No: [id number] EXAMS: CPT CODE: [id number] CT HEAD/BRAIN W/O CONT 66760 (Continued) CC: Natalia Cary MD Technologist: Maryana Hale CTDI: 49.6 DLP: 830.4 Trscr Dt/Tm: 03/14/2019 (1529) by:[email or web address] Electronic Signature Date/Time: 03/14/2019 (1529)Orig Print D/T: S: 03/14/2019 (3682) Name: LILIANAElena HALLDANIELE Morales [facility] [place] Phys: Natalia Desouza [address] : 1950 Age: 68 Sex: [place] [phone] Loc: [place].ERS Exam Date: 03/14/2019 Status: REG ER PH: FAX: PAGE 2 Signed ReportURINALYSIS [id number] 14:20:00 Test Item Value Reference Range Interpretation Comments UA COLOR (test code = COLU) Straw YELLOW UA APPEARANCE (test code = CLEAR CLEAR APPU) UA GLUCOSE DIPSTICK (test 3+ NEGATIVE A code = DGLUU) UA BILIRUBIN DIPSTICK (test NEGATIVE NEGATIVE code = BILU) UA KETONE DIPSTICK (test code NEGATIVE NEGATIVE = KETU) UA SPECIFIC GRAVITY (test 1.017 1.005-1.025 N code = SGU) UA BLOOD DIPSTICK (test code NEGATIVE NEGATIVE = EVELIN) UA PH DIPSTICK (test code = 6 5.0-8.0 KALEY) UA PROTEIN DIPSTICK (test NEGATIVE NEGATIVE code = PROU) UA UROBILINOGEN DIPSTICK Negative EU/dL 0.1-0.2 (test code = URO) UA NITRITE DIPSTICK (test NEGATIVE NEGATIVE code = EDMUND) UA LEUKOCYTE ESTERASE TRACE NEGATIVE A DIPSTICK (test code = LEUU) UA WBC (test code = WBCU) 3-5 /hpf 0-3 A UA RBC (test code = RBCU) 0-2 /hpf 0-3 UA EPITHELIAL CELLS (test RARE /lpf code = EPIU) UA BACTERIA (test code = RARE /HPF NEGATIVE BACU) UA MUCUS (test code = MUCU) OCCASIONAL /lpf BASIC METABOLIC [id number] 14:12:00 Test Item Value Reference Range Interpretation Comments SODIUM (test code = 133 mmol/L 135-145 L NA) POTASSIUM (test code 4.1 mmol/L 3.5-5.1 N = K) CHLORIDE (test code = 98 mmol/L 98-107 N CL) CARBON DIOXIDE (test 27 mmol/L 21-32 N code = CO2) ANION GAP (test code 12.1 2.0-16.0 N = GAP) GLUCOSE (test code = 415 mg/dL 65-99 HH Critica l Value GLU) reported toFirs t Name:JOSE Last Name:DEVANG JUSTICE READ BACK AND VERIFIEDby NCLA BDuncanCF, on 03/14/19, @ 2364. BLOOD UREA NITROGEN 37 mg/dL 4-23 H (test code = BUN) GLOMERULAR FILTRATION 39 ml/min 60-115 L The es timated RATE (test code = glomerular filtration GFR) rate is compute d usingpatient ra ce, age (>18), sex, and serum creatinine. If anyof the needed data elements are mi ssing the Laboratory cannot compute an raysa mation of the glomerul ar filtration rate . CREATININE (test code 1.7 mg/dL 0.6-1.5 H = CREAT) BUN/CREATININE RATIO 21.8 12.0-20.0 H (test code = BUN/CREA) CALCIUM (test code = 9.2 mg/dL 8.5-10.1 N CA) LIVER FUNCTION [id number] 14:12:00 Test Item Value Reference Range Interpretation Comments TOTAL PROTEIN (test code = PROT) 8.6 g/dL 6.4-8.2 H ALBUMIN (test code = ALB) 4.2 g/dL 3.4-5.0 N GLOBULIN (test code = GLOB) 4.4 g/dL 2.3-3.5 H BILIRUBIN TOTAL (test code = BILT) 0.7 mg/dL 0.2-1.2 N BILIRUBIN DIRECT (test code = BILD) 0.2 mg/dL 0.0-0.3 N BILIRUBIN INDIRECT (test code = 0.5 mg/dL 0.0-0.8 N BILIND) SGOT/AST (test code = AST) 21 U/L 15-37 N SGPT/ALT (test code = ALT) 31 U/L 6-50 N ALKALINE PHOSPHATASE (test code = 140 U/L 45-117 H ALKP) [id number] 14:12:00 Test Item Value Reference Range Interpretation Comments LIPASE (test code = LIP) 216 U/L 73-393 N OSMOLALITY [id number] 14:12:00 Test Item Value Reference Range Interpretation Comments OSMOLALITY SERUM (test code = 313 mOsm/kg 278-305 H OSMO) THYROID STIMULATING [id number] 14:12:00 Test Item Value Reference Range Interpretation Comments THYROID STIMULATING HORMONE (test 2.11 mIU/mL 0.36-3.74 N code = TSH) [id number] 14:12:00 Test Item Value Reference Range Interpretation Comments TROPONIN-I (test code = TROPI) < 0.02 ng/mL 0.00-0.07 N ACETONE [id number] 14:12:00 Test Item Value Reference Range Interpretation Comments ACETONE QUAL (test code = ACETNQL) NEGATIVE NEGATIVE B-TYPE NATRIURETIC [id number] 14:08:00 Test Item Value Reference Range Interpretation Comments B-TYPE NATRIURETIC PEPTIDE (test 43 pg/mL 0-100 N code = BNP) BASIC METABOLIC [id number] 13:38:00 Test Item Value Reference Range Interpretation Comments SODIUM (test code = 133 mmol/L 135-145 L NA) POTASSIUM (test code 4.1 mmol/L 3.5-5.1 N = K) CHLORIDE (test code = 98 mmol/L 98-107 N CL) CARBON DIOXIDE (test 27 mmol/L 21-32 N code = CO2) ANION GAP (test code 12.1 2.0-16.0 N = GAP) GLUCOSE (test code = 415 mg/dL 65-99 HH Critica l Value GLU) reported toFirs t Name:JOSE Last Name:DEVANG JUSTICE READ BACK AND VERIFIEDby NCLA B.CF, on 03/14/19, @ 1338. BLOOD UREA NITROGEN 37 mg/dL 4-23 H (test code = BUN) GLOMERULAR FILTRATION 39 ml/min 60-115 L The es timated RATE (test code = glomerular filtration GFR) rate is compute d usingpatient ra ce, age (>18), sex, and serum creatinine. If anyof the needed data elements are mi ssing the Laboratory cannot compute an raysa mation of the glomerul ar filtration rate . CREATININE (test code 1.7 mg/dL 0.6-1.5 H = CREAT) BUN/CREATININE RATIO 21.8 12.0-20.0 H (test code = BUN/CREA) CALCIUM (test code = 9.2 mg/dL 8.5-10.1 N CA) LIVER FUNCTION [id number] 13:38:00 Test Item Value Reference Range Interpretation Comments TOTAL PROTEIN (test code = PROT) 8.6 g/dL 6.4-8.2 H ALBUMIN (test code = ALB) 4.2 g/dL 3.4-5.0 N GLOBULIN (test code = GLOB) 4.4 g/dL 2.3-3.5 H BILIRUBIN TOTAL (test code = BILT) 0.7 mg/dL 0.2-1.2 N BILIRUBIN DIRECT (test code = BILD) 0.2 mg/dL 0.0-0.3 N BILIRUBIN INDIRECT (test code = 0.5 mg/dL 0.0-0.8 N BILIND) SGOT/AST (test code = AST) 21 U/L 15-37 N SGPT/ALT (test code = ALT) 31 U/L 6-50 N ALKALINE PHOSPHATASE (test code = 140 U/L 45-117 H ALKP) [id number] 13:38:00 Test Item Value Reference Range Interpretation Comments LIPASE (test code = LIP) 216 U/L 73-393 N OSMOLALITY [id number] 13:38:00 Test Item Value Reference Range Interpretation Comments OSMOLALITY SERUM (test code = OSMO) mOsm/kg 278-305 THYROID STIMULATING [id number] 13:38:00 Test Item Value Reference Range Interpretation Comments THYROID STIMULATING HORMONE (test 2.11 mIU/mL 0.36-3.74 N code = TSH) [id number] 13:38:00 Test Item Value Reference Range Interpretation Comments TROPONIN-I (test code = TROPI) < 0.02 ng/mL 0.00-0.07 N ACETONE [id number] 13:38:00 Test Item Value Reference Range Interpretation Comments ACETONE QUAL (test code = ACETNQL) NEGATIVE NEGATIVE BASIC METABOLIC [id number] 13:23:00 Test Item Value Reference Range Interpretation Comments SODIUM (test code = NA) mmol/L 135-145 POTASSIUM (test code = K) mmol/L 3.5-5.1 CHLORIDE (test code = CL) mmol/L 98-107 CARBON DIOXIDE (test code = CO2) mmol/L 21-32 ANION GAP (test code = GAP) 2.0-16.0 GLUCOSE (test code = GLU) mg/dL 65-99 BLOOD UREA NITROGEN (test code = BUN) mg/dL 4-23 GLOMERULAR FILTRATION RATE (test code ml/min 60-115 = GFR) CREATININE (test code = CREAT) mg/dL 0.6-1.5 BUN/CREATININE RATIO (test code = 12.0-20.0 BUN/CREA) CALCIUM (test code = CA) mg/dL 8.5-10.1 LIVER FUNCTION [id number] 13:23:00 Test Item Value Reference Range Interpretation Comments TOTAL PROTEIN (test code = PROT) g/dL 6.4-8.2 ALBUMIN (test code = ALB) g/dL 3.4-5.0 GLOBULIN (test code = GLOB) g/dL 2.3-3.5 BILIRUBIN TOTAL (test code = BILT) mg/dL 0.2-1.2 BILIRUBIN DIRECT (test code = BILD) mg/dL 0.0-0.3 BILIRUBIN INDIRECT (test code = mg/dL 0.0-0.8 BILIND) SGOT/AST (test code = AST) U/L 15-37 SGPT/ALT (test code = ALT) U/L 6-50 ALKALINE PHOSPHATASE (test code = U/L 45-117 ALKP) [id number] 13:23:00 Test Item Value Reference Range Interpretation Comments LIPASE (test code = LIP) U/L 73-393 OSMOLALITY [id number] 13:23:00 Test Item Value Reference Range Interpretation Comments OSMOLALITY SERUM (test code = OSMO) mOsm/kg 278-305 THYROID STIMULATING [id number] 13:23:00 Test Item Value Reference Range Interpretation Comments THYROID STIMULATING HORMONE (test mIU/mL 0.36-3.74 code = TSH) [id number] 13:23:00 Test Item Value Reference Range Interpretation Comments TROPONIN-I (test code = TROPI) ng/mL 0.00-0.07 ACETONE [id number] 13:23:00 Test Item Value Reference Range Interpretation Comments ACETONE QUAL (test code = ACETNQL) NEGATIVE NEGATIVE - XR CHEST 1 [id number] 13:20:00Patient Name: DANIELE HINKLE Unit No: [id number] EXAMS: CPT CODE: [id number] XR CHEST 1 V [id number] Dictation location B2 Portable chest one view. HISTORY:Weakness COMMENT: No comparison. The lungs are clear and normally expanded. The heart and pulmonary vasculature is normal. Visualized soft tissues and skeletal structures are unremarkable. IMPRESSION: No active disease in the chest. at 1320 Reported and signed by: Christal Brooks MD CC: Natalia Cary MD Technologist: Josie Chaudhari Time: DAP (Gy m2): Air Kerma (mGy): TrscrDt/Tm: 03/14/2019 (1320) by:[facility] Electronic Signature Date/Time: 03/14/2019 (1320)Orig Print D/T: S: 03/14/2019 (1324) Name: HINKLEGALENJAKOB CORTEZ [facility] [place] Phys: Natalia Desouza [address] : 1950 Age: 68 Sex: [place] [address] Loc: [facility] Exam Date: 03/14/2019 Status: REG ER PH: FAX: PAGE 1 Signed ReportCBC W/AUTO [id number] 13:13:00 Test Item Value Reference Range Interpretation Comments WHITE BLOOD CELL (test code = 3.3 10 3/uL 4.5-11.0 L WBC) RED BLOOD CELL (test code = 4.17 10 6/uL 3.50-5.50 N RBC) HEMOGLOBIN (test code = HGB) 11.7 g/dL 12.0-16.0 L HEMATOCRIT (test code = HCT) 35.2 % 37.0-55.0 L MEAN CELL VOLUME (test code = 84 fL 81-102 N MCV) MEAN CELL HGB (test code = 28.1 pg 26.0-34.0 N MCH) MEAN CELL HGB CONCENTRATION 33.2 % 31.0-37.0 N (test code = MCHC) RED CELL DISTRIBUTION WIDTH 13.2 % 11.5-14.5 N (test code = RDW) PLATELET COUNT (test code = 186 10 3/uL 150-400 N PLT) MEAN PLATELET VOLUME (test 10.8 fl 9.0-12.6 N code = MPV) NEUTROPHIL % (test code = NT%) 57.5 % 33.0-76.0 N IMMATURE GRANULOCYTE % (test 0.6 % 0.0-1.0 N code = IG%) LYMPHOCYTE % (test code = LY%) 25.5 % 14.0-56.4 N MONOCYTE % (test code = MO%) 9.4 % 0.0-12.9 N EOSINOPHIL % (test code = EO%) 5.8 % 0.0-7.0 N BASOPHIL % (test code = BA%) 1.2 % 0-2.0 N NEUTROPHIL # (test code = NT#) 1.90 10 3/uL 1.5-7.0 N IMMATURE GRANULOCYTE # (test 0.020 x10 3/uL 0.000-0.100 N code = IG#) LYMPHOCYTE # (test code = LY#) 0.84 10 3/uL 1.50-4.00 L MONOCYTE # (test code = MO#) 0.31 10 3/uL 0.20-0.80 N EOSINOPHIL # (test code = EO#) 0.19 10 3/uL 0.0-0.5 N BASOPHIL # (test code = BA#) 0.04 10 3/uL 0.0-0.1 N COMPREHENSIVE METABOLIC [id number] 17:26:00 Test Item Value Reference Range Interpretation Comments SODIUM (test code = 137 mmol/L 135-145 N NA) POTASSIUM (test code 4.7 mmol/L 3.5-5.1 N = K) CHLORIDE (test code = 101 mmol/L 98-107 N CL) CARBON DIOXIDE (test 29 mmol/L 21-32 N code = CO2) GLUCOSE (test code = 320 mg/dL 65-99 H GLU) BLOOD UREA NITROGEN 22 mg/dL 4-23 N (test code = BUN) GLOMERULAR FILTRATION 48 ml/min 60-115 L The es timated RATE (test code = glomerular filtration GFR) rate is compute d usingpatient ra ce, age (>18), sex, and serum creatinine. If anyof the needed data elements are mi ssing the Laboratory cannot compute an raysa mation of the glomerul ar filtration rate . CREATININE (test code 1.4 mg/dL 0.6-1.5 N = CREAT) BUN/CREATININE RATIO 15.7 12.0-20.0 N (test code = BUN/CREA) TOTAL PROTEIN (test 8.4 g/dL 6.4-8.2 H code = PROT) ALBUMIN (test code = 4.3 g/dL 3.4-5.0 N ALB) CALCIUM (test code = 9.5 mg/dL 8.5-10.1 N CA) BILIRUBIN TOTAL (test 0.4 mg/dL 0.2-1.2 N code = BILT) SGOT/AST (test code = 24 U/L 15-37 N AST) SGPT/ALT (test code = 29 U/L 6-50 N ALT) ALKALINE PHOSPHATASE 158 U/L 45-117 H (test code = ALKP) LIPID PROFILE (CORONARY RISK)2019-03-07 17:26:00 Test Item Value Reference Range Interpretation Comments TRIGLYCERIDES (test 86 mg/dL 0-149 N code = TRIG) CHOLESTEROL (test code 221 mg/dL 0-200 H = CHOL) CHOLESTEROL/HDL RATIO 3 1-6 N (test code = CHOLHDL) HDL CHOLESTEROL (test 76 mg/dL 40-60 H Accord ing to the code = HDL) [facility] ([facility]) an d theNational Cholesterol Edu cation Program (NCEP), an HDLcholesterol >or= 60mg/dL counts as a "negative" risk factor;its pres ence removes one ris k factor from the total count. LIPOPROTEIN LDL (test 114 mg/dL 0-100 H code = LDLC) [id number] 17:26:00 Test Item Value Reference Range Interpretation Comments MAGNESIUM (test code = MAG) 1.8 mg/dL 1.8-2.4 N THYROID STIMULATING [id number] 17:26:00 Test Item Value Reference Range Interpretation Comments THYROID STIMULATING HORMONE (test 1.87 mIU/mL 0.36-3.74 N code = TSH) CBC W/O [id number] 17:02:00 Test Item Value Reference Range Interpretation Comments WHITE BLOOD CELL (test code = 3.6 10 3/uL 4.5-11.0 L WBC) RED BLOOD CELL (test code = RBC) 4.22 10 6/uL 3.50-5.50 N HEMOGLOBIN (test code = HGB) 11.9 g/dL 12.0-16.0 L HEMATOCRIT (test code = HCT) 36.5 % 37.0-55.0 L MEAN CELL VOLUME (test code = 87 fL 81-102 N MCV) MEAN CELL HGB (test code = MCH) 28.2 pg 26.0-34.0 N MEAN CELL HGB CONCENTRATION 32.6 % 31.0-37.0 N (test code = MCHC) RED CELL DISTRIBUTION WIDTH 13.7 % 11.5-14.5 N (test code = RDW) PLATELET COUNT (test code = PLT) 210 10 3/uL 150-400 N Notes Date/Time Note Provider Source 2023-03-23 [id number] [facility] 07:38:00 [facility] [place] [address] [facility] [address] PATIENT NAME: DANIELE HINKLE ADMIT D ATE: 03/06/23ACCOUNT NO: [id number] ROOM NO: NC.320 6 AGE: 72 REPORT TYPE: 360 - QUERY RESPONSE DOCUMENT SEX: F ADMITTING PHYSICIAN:Erasmo Fay MD ATTENDING PHYSICIAN:Erasmo Fay MD Provider Query QUERY TEXT: Clarification Diagnostic Test 360MD Query relate d questions should be directed to: [phone] Please esperanza fy the condition or diagnosis for the clinical / diagno stic findings noted within the clinical indicators. ( ie; hyponatremia, electrolyte disorder, or other mor e appropriate diagnosis) The patient's Clinical In dicators include:11-6 LAB SODIUM 129, 11-9 SODIUM 134, 11 -10 SODIUM 131, 11-11 SODIUM 133. 11-6 MAR SODIUM CHLORIDE 250 ML IV Options provided:-- Respond - Create new note no w-- Dismiss - Not applicable / Not valid-- Dismiss - Clinica lly unable to determine / Unknown-- Assign to another provi abraham QUERY RESPONSE: hyponatremia Query created by: Sony Anguiano on 03/23/2023 7:26 AM at 0738 PATIENT NAME: KHADIJAH HINKLE noteNC.[id number] for patient [id number]:39:13 2023-03-21 [id number] PORF[facility] peterson [facility] 06:21:[address] [address] PATIENT NAME: DANIELE HINKLE ADMIT D ATE: 03/06/23ACCOUNT NO: [id number] ROOM NO: TN.320 6 AGE: 72 REPORT TYPE: 360 - QUERY RESPONSE DOCUMENT SEX: F ADMITTING PHYSICIAN:Erasmo Fay MD ATTENDING PHYSICIAN:Erasmo Fay MD Provider Query QUERY TEXT: Stage CKD 360MD Query related questions should b e directed to: [facility] Coding Query Helpline [phone] Based on your clinical judgment, can you further specify the stage of the chronic kidney disease located in [CKD, H TN, HLD, -PT: IP Initial Assessment 03/10/2023 (1) Pertin ent lab findings are as follows:[GLOMERULAR FILTRATION R ATE (ml/min) 49L - LAB Stages of Kidney Damage accor ding to the National Kidney Foundation are defined as follow s:-- Stage 1 Kidney damage with normal kidney function (GFR > 90)-- Stage 2 Kidney damage with mildly decreased kidn ey function (GFR 60-89)-- Stage 3a Kidney damage with mildly to moderately decreased kidney function (GFR 45-59) -- Stage 3b Kidney damage with moderately to severely decrea sed kidney function (GFR 30-44)-- Stage 4 Kidney damage wit h severely decreased kidney function (GFR 15-29)-- Stage 5 Kidney failure (GFR <15 or on dialysis)-- End Stage Salvador al Disease (GFR <15 or on dialysis or transplant) The patie nt's Clinical Indicators include:Type 1 diabetes yuliet itus with diabetic chronic kidney disease -Family Med. His tory and Physical 03/07/2023 (1) ,Vascular Surg. Progress Note 03/11/2023reatinine (0.6 - 1.5 mg/dL) 1.3 - ED PHYSICIAN RECORD 03/06/2023 (2)GLOMERULAR FILTRATION RATE (ml/min) 49L - LABDM, PAD, angioplasty 03/08/23, CKD, HTN, HLD, -PT: IP Initial Assessment 03/10/2023 (1)Options prov ided:-- Stage 1-- Stage 2-- Stage 3a-- Stage 3b-- Stage 3-- Stage 4-- Stage 5-- End Stage-- Other - I will add my own diagnosis-- Dismiss - Not applicable / Not valid -- Dismiss - Clinically unable to determine / Unknown-- Ass ign to another provider QUERY RESPONSE: The patient has stage 3b chronic kidney disease. Query created by: Bentley Lozano on 03/13/2023 11:13 PM at 0621 PATIENT NAME: DANIELE HINKLE inical noteNC.[id number] for patient [id number]:21:46 2023-03-21 [id number] [facility] 06:21:00 [place] [address] PATIENT NAME: DANIELE HINKLE ADMIT D ATE: 03/06/23ACCOUNT NO: [id number] ROOM NO: [place] [address] AGE: 72 REPORT TYPE: 360 - QUERY RESPONSE DOCUMENT SEX: F ADMITTING PHYSICIAN:Erasmo Fay MD ATTENDING PHYSICIAN:Erasmo Fay MD Provider Query QUERY TEXT: Condition General 360MD Query related questions should be directed to: [facility] Coding Query Helpline [Based on the below mentioned clinical indicator s kindly clarify the condition being treated and evaluate d (Cellulitis of left toe due to diabetes mellitus , Cellulitis of left toe not due to diabetes melli tus, unspecified or other more appropriate diagnosis) ? The patient's Clinical Indicators include:D A CAUSE AND RELATIONSHIP QUERY : Type 1 diabetes mellitus wi th diabetic chronic kidney disease -Vascular Surg. 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 History and Physical 03/07/2023 (1),Family Medicine Progress Note 03/10/2023 (2) Options provided:-- Respond - Cre ate new note now-- Dismiss - Not applicable / Not valid- - Dismiss - Clinically unable to determine / Unknown-- Assig n to another provider QUERY RESPONSE: cellulitis of t oe due to dm Query created by: Bentley Lozano on 03/13/2023 11:19 PM at 0621 PATIENT NAME: DANIELE HINKLE noteNC.[id number] Available for patient [id number]:21:4 6 2023-03-21 [id number] [facility] 06:21:[address] [address] PATIENT NAME: DANIELE HINKLE ADMIT D ATE: 03/06/23ACCOUNT NO: [id number] ROOM NO: NC.32 06 AGE: 72 REPORT TYPE: 360 - QUERY RESPONSE DOCUMENT SEX: F ADMITTING PHYSICIAN:Erasmo Fay MD ATTENDING PHYSICIAN:Erasmo Fay MD Provider Query QUERY TEXT: Condition General 360MD Query related questions should be directed to: [facility] Coding Query Helpline [phone] Based on your medical judgement and clinical ind icators listed below kindly specify Acute blood loss,ane harmeet,Chronic anemia,Unspecified or Other more appropriate tati gnosis)? The patient's Clinical Indicators include:HEMATO CRIT (%) 30.0LHEMOGLOBIN (g/dL) 10.1L - LABRED BLOOD CELL (10 6/uL) 3.34L - LABFERROUS SULFATE 325 MG - MAR Options provided:-- Respond - Create new note now-- Dismiss - Not ap plicable / Not valid-- Dismiss - Clinically unable to deter mine / Unknown-- Assign to another provider QUERY RESPO NSE: chronic Query created by: Bentley Lozano on 2022 11:26 PM Electronically Signed by Britney Winchester DO o n 03/21/23 at 0621 PATIENT NAME: DANIELE HINKLE ACCMODESTA NT #: [id number] noteNC.[id number] Available for patient [id number]:21:4 6 2023-03-11 [id number]:00 [facility] 09:45:00 [facility] ([facility])Med Order Sheet REPORT #: [id number] REPORT STATUS: Signed DATE: 03/11/23 TIME: 0945 PATIENT : DANIELE HINKLE UNIT #: [id number] #: [id number] ROOM #: NC.3206 BED: 1 : 3 AGE: 72 SEX: F ATTEND: Erasmo Fay MD ADM DT: AUTHOR: Britney Winchester DO ATTENTION EDITS and/or ADDENDA must be made i n Patient Keeper for this note. Edits and ammendments created in [facility] are not visible in Patient Keeper or the legal medical record ([facility]). Discharge Medication Reconciliatio n DISCHARGE MEDICATION LISTAcetaminophen Tab (Tylenol Tab) D ose: 500 MG PO Q6H PRN pain - FOR PAINADMELOG SOLOSTAR Dose: SUBQAspirin Chewable Tab (Aspirin Chewable Tab) Dose: 81 MG PO BEDTIMEClopidogrel Tab (Plavix Tab) Dose: 75 MG PO DAILYEzetimibe Tab (Zetia Tab) Dose: 10 MG PO DA ILYFerrous Sulfate Tab (Feosol Tab) Dose: 325 MG PO BIDInsu janki (Glargine) Inj (Lantus Inj) Dose: 30 UNITS SUBQ Z02SMAozvrwh Lispro InJ (HumaLOG Inj) Dose: 0 UN ITS SUBQ AC HSIsosorbide Dinitrate Tab (Isordil Tab) Dose: 5 MG PO BID 9A 5P - Hold if SBP<110Lexapro tab (escitalopram oxalate) Dose: 10 MG PO DAILYMetoprolol Tartrate Tab (Lop ressor Tab) Dose: 12.5 MG PO Q12HR - Hold if SBP<110, HR<60M ultivitamin Tab (Theragran Tab) Dose: 1 TAB PO DAILYSenokot tab (sennosides) Dose: 8.6 MG PO BIDVitamin D3 Tab (Cholecalciferol Tab) Dose: 8000 UNIT PO QPMNew: Cefdinir Cap (Omnicef Cap) Dose: 300 MG PO Q12H, Disp: 14 capsule, Refills: 0 STOPPED HOME MEDICATIONSDc'd: Metopro lol Succinate XL Tab (Toprol XL Tab) 25 MG PO DAILY STOPPED HOSPITAL MEDICATIONS Dc'd: Dextrose Chewable Tab (Glucose Chewable Tab) 16GM PO ASDIR PRNhypoglycemia prot ocolDc'd: Glucagon Inj (Glucagon Inj) 1MG IV ASDIR PRNhypoglycemiaDc'd: Ondansetron Inj (Zofran Inj ) 4MG IV Q4H PRN nausea andvomitingDc'd: Vancomycin Inj ( Vancomycin Inj) 500MG IV Q12Hin Sodium Chloride0.9% (NS) 10 0ML (Total 100 ML)Dc'd: Vancomycin Rx To Dose (Vancomycin R x To Dose) 1EACH IVASDIR :45 Electronically Sig rudi by Britney Winchester DO on 03/11/23 at 0945ATTENTION EDITS and/or ADDENDA must be ma de in Patient Keeper for this note. Edits and ammen dments created in [facility] are not visible in Patien t Keeper or the legal medical record ([facility]). RPT #: [id number] OF REPORT CLClinical [id number]:45:[id number] Available for patient [id number]:46:1 1 2023-03-11 [id number]:49:00 [facility] D[facility] 08:49:00 [facility] ([facility])Vascular Surg. Progress Note REPOR T #: [id number] REPORT STATUS: Signed DATE: 03/11/23 T EDUARDO: 0849 PATIENT: DANIELE HINKLE UNIT #: [id number] ROOM #: NC.3206 BED: 1 : 3 AGE: 72 SEX: F ATTEND: Erasmo Fay MD ADM DT: AUTHOR: Jose Daniel Wall DO ATTENTION EDITS and/or ADDENDA must be made i n Patient Keeper for this note. Edits and ammendments c reated in [facility] are not visible in Patient Keeper or the legal medical record ([facility]). -- ASSESSMENT AND PLAN -- PROBLEMS : 1: Displaced fracture of distal phalanx of left gre at toe, initial encounterfor closed fractureA/P: ortho c onsulted Recommend outpt eval. No significant cellulitis is appreciated. d/w Dr. Chairez. 2: Type 1 diabetes alex litus with diabetic chronic kidney diseaseA/P: Tight glycem ic control discussedBlood sugar is still elevated. d/w fami ly at length 3: Peripheral arterial diseaseA/P: Arteri al duplex reviewed.s/p LLE angiogram, TP trunk, peroneal, PT atherectomy, angioplasty 03/08/2023s/p LLE angiog anthony, SFA/.popliteal ahterectomy DCB 03/10/2023 Excell ent outcome with good flow to the foot. Optimized from vascu lar standpoint. ok for dc from my standpoint. f/u in office. -- SUBJECTIVE -- CHIEF COMPLAINT:denies HPI:no acut e events, plan dc today, foot feeling better -REVIEW OF SY STEMS- COMMENT: 12 pt ROS conducted, pertinent positive s as noted above -- OBJECTIVE -- -EXAM- GENERAL: Well deve loped, well nourished, in no apparent distress, thin frail f emale. appears older than stated ageHEAD: Normocephalic , atraumatic.EYES: r eye with chronic changes, landin nken; L eye with chronic changesNECK: No masses, no thyromeg kimberly, no abnormal cervical nodes, trachea midline.CHEST: Grossly normal appearance.LUNGS: Clear bilaterally with normal respiratory effort.HEART: Regular rate and rhyth m, normal S1, S2, no murmurs, no rubs, no gallops, no clic ks.ABDOMEN: Soft, non-tender, no organomegaly, no masses noted.MUSCULOSKELETAL: L foot with scabbed wound to dorsum of foot approx 3.5 x 1 cm. dark, necrotic change s over 2nd and 3rd toe.EXTREMITIES: No clubbing, no cyanosi s, no edema.NEUROLOGICAL: No focal deficits, cranial n erves II-XII grossly intact, normal sensation, normal reflexes, normal coordination, normal muscle strength, nor mal tone.PULSES: L PT pulse faintly palpable.PSYCHIA TRIC: Alert and oriented to time, person, place. Normal mood and affect, intact judgment and insight. -- DATA -- LABS GLU BED (03/11/23 09:56)GLUBED 158 H VANCO TR (03/11 09:36)VANCOMYCIN TROUGH 19.4 COMPREHENSIVE METAB OLIC PANEL (03/11/23 09:36)SODIUM 133L LPOTASSIUM 3.8CHLOR LAN 101CARBON DIOXIDE 28ANION GAP 7.8GLUCOSE 164H HB LOOD UREA NITROGEN 19GLOMERULAR FILTRATION RATE 54 LCREATI NINE 1.1BUN/CREATININE RATIO 17.3TOTAL PROTEIN 7.9ALB UMIN 2.3 LCALCIUM 8.6BILIRUBIN TOTAL 0.4SGOT/AST 14 LSGP T/ALT 15 ALKALINE PHOSPHATASE 89 Signed in PatientKeeper by Jose Daniel Wall DO on 03/12/23 at 08:50 Electronically Si gned by Jose Daniel Wall DO on 03/12/23 at 0850ATTENTION EDITS and/or ADDENDA must be ma de in Patient Keeper for this note. Edits and ammen dments created in [facility] are not visible in Patien t Keeper or the legal medical record (HPF). RPT #: [id number] OF REPORT PRProgress [id number]:49:[id number] Available for patient [id number]:51:3 0 2023-03-10 [id number] [place] [place] [facility] 18:57:00 [facility] ([facility])Vascular Surg. Progress Note REPOR T #: [id number] REPORT STATUS: Signed DATE: 03/10/23 T EDUARDO: [id number] PATIENT: DANIELE HINKLE UNIT #: [id number] ROOM #: [facility]3206 BED: 1 : 3 AGE: 72 SEX: F ATTEND: Erasmo Fay MD ADM DT: AUTHOR: Jose Daniel Wall DO ATTENTION EDITS and/or ADDENDA must be made i n Patient Keeper for this note. Edits and ammendments c reated in [facility] are not visible in Patient Keeper or the legal medical record ([facility]). -- ASSESSMENT AND PLAN -- PROBLEMS : 1: Displaced fracture of distal phalanx of left gre at toe, initial encounterfor closed fractureA/P: ortho c onsulted Recommend outpt eval.No significant cellulitis i s appreciated. d/w Dr. Chairez. 2: Type 1 diabetes alex litus with diabetic chronic kidney diseaseA/P: Tight glycem ic control discussedBlood sugar is still elevated. d/w fami ly at length 3: Peripheral arterial diseaseA/P: Arteri al duplex reviewed.s/p LLE angiogram, TP trunk, peroneal, PT atherectomy, angioplasty 03/08/2023s/p LLE angiog anthony, SFA/.popliteal ahterectomy DCB 03/10/2023 Excell ent outcome with good flow to the foot. Optimized from vascu lar standpoint. -- SUBJECTIVE -- CHIEF COMPLAINT:den ies HPI:no acute events, angiogram today -REVIEW OF SYSTEMS - COMMENT: 12 pt ROS conducted, pertinent positives as not ed above -- OBJECTIVE -- VITALS (03/09 18:57 - 03/10 18:57): Temperature C: 36.8 (36.8 - 37.7)Temperature source: OralPul se Rate 74 (69 - 85)Respiratory rate: 15 (14 - 18)Blood pre ssure: 182/111 (119/67 - 186/111) I/Os (03/09 07:00 - 05/10 07:00):Net 200Intake 200 -EXAM- GENERAL: Well de veloped, well nourished, in no apparent distress, thin fr ail female. appears older than stated ageHEAD: Normocephalic , atraumatic.EYES: r eye with chronic changes, sun regan; L eye with chronic changesNECK: No masses, no thyromeg kimberly, no abnormal cervical nodes, trachea midline.CHEST: Grossly normal appearance.LUNGS: Clear bilaterally with normal respiratory effort.HEART: Regular rate and rhyth m, normal S1, S2, no murmurs, no rubs, no gallops, no clic ks.ABDOMEN: Soft, non-tender, no organomegaly, no masses noted.MUSCULOSKELETAL: L foot with scabbed wound to dorsum of foot approx 3.5 x 1 cm. dark, necrotic rowland es over 2nd and 3rd toe.EXTREMITIES: No clubbing, no cyanosi s, no edema.NEUROLOGICAL: No focal deficits, cranial n erves II-XII grossly intact, normal sensation, normal reflexes, normal coordination, normal muscle strength, nor mal tone.PULSES: L PT pulse faintly palpable.PSYCHIA TRIC: Alert and oriented to time, person, place. Normal mood and affect, intact judgment and insight. -- DATA -- MEDICATIONS MULTIVITAMIN WITH FOLIC ACID 1 TAB PO DAILYDEXTR OSE 16 GM PO ASDIR (PRN)VANCOMYCIN HCL with/in SODIUM CHLO RIDE 100 mL BAG 500 MG IV [id number] 10 MG PO DAILYGLUCAG ON 1 MG IV ASDIR (PRN)INSULIN LISPRO UNITS SUBQ AC HSINSULI N GLARGINE 30 UNITS SUBQ [id number] 20 MG PO DAILYMETO PROLOL TARTRATE 12.5 MG PO [id number] HCL/PF 4 MG IV Q4H PRNPIPERAC/TAZOBACTAM with/in SODIUM CHLORIDE 10 0 mL BAG 3.375 GM IV [id number] 1 TAB PO BID PRNACETA MINOPHEN 500 MG PO Q6H PRNISOSORBIDE DINITRATE 5 MG PO BI D 9A 5PFERROUS SULFATE 325 MG PO BIDASPIRIN 81 MG PO BEDTIMEVANCOMYCIN PHARMACY TO DOSE 1 EACH IV ASDIRclopidogreL 75 MG PO DAILY LABS GLU BED ( 12:52)GLUBED 147 H GLU BED (03/10/23 12:20)GLUBE D 53 L GLU BED (03/10/23 11:15)GLUBED 62 L GLU BED ( 3 07:54)GLUBED 151 H GLU BED (03/10/23 05:32)GLUBE D 221 H BASIC METABOLIC PANEL (03/10/23 05:09)SODIUM 13 1L LPOTASSIUM 3.8CHLORIDE 99CARBON DIOXIDE 26ANION GAP 9.8GLUCOSE 267D H D HBLOOD UREA NITROGEN 22GLOME RULAR FILTRATION RATE 44 LCREATININE 1.3BUN/CREATININE RATIO 16.9CALCIUM 8.6 VANCOMYCIN (03/10/23 05:09)VANCO MYCIN 8.7 GLU BED (03/09/23 23:56)GLUBED 436 *H GLU BED (05/09/22 23:54)GLUBED 469 *H GLU BED (03/09/23 19:49)GLUB ED 287 H Signed in PatientKeeper by Jose Daniel Wall DO on 05/10/22 at 18:59 at 1859ATTENTION EDITS and/or ADDENDA must be ma de in Patient Keeper for this note. Edits and ammen dments created in [facility] are not visible in Patien t Keeper or the legal medical record (HPF). [facility] #: [id number] OF REPORT PRProgress [id number]:[id number] Available for patient [id number]:00:1 0 2023-03-10 [id number]:33:00 [facility] 18:33:00 [place] [facility])Family Medicine Progress Note REPO RT #: [id number] REPORT STATUS: Signed DATE: 03/10/23 T EDUARDO: 1833 PATIENT: DANIELE HINKLE UNIT #: [id number] ROOM #: NC.3206 BED: 1 : 3 AGE: 72 SEX: F ATTEND: Erasmo Fay MD ADM DT: AUTHOR: Britney Winchester DO ATTENTION EDITS and/or ADDENDA must be made i n Patient Keeper for this note. Edits and ammendments c reated in [facility] are not visible in Patient Keeper or the legal medical record (HPF). -- ASSESSMENT AND PLAN -- PROBLEMS : 1: Displaced fracture of distal phalanx of left gre at toe, initial encounterfor closed fractureA/P: admit t o med/surgortho consulted - appreciate recs - plan for no surgical intervention at thistimeout pt f/u 2: C ellulitis of left toeA/P: does not appear to have cellulit iswound care orderedcont vanc and zosyn - likely d/c at discharge with plan for continued wound careconsult wound care physician 3: Type 1 diabetes mellitus with diabe tic polyneuropathyA/P: cont home medssliding scale 4 : Type 1 diabetes mellitus with diabetic chronic kidney d isease 5: CAD (coronary artery disease)A/P: cont home meds 6: Peripheral arterial diseaseA/P: consult dr. boone is/p angioplasty of LLE - angiogram shows good flow t o footcont home meds consider home with HH if cleared by co nsultants tomorrow -- SUBJECTIVE -- PATIENT NARRATIVE:feel ing well. struggling with sugars d/t npo status and poor i ntake yesterday.feels leg is doing better -REVIEW OF S YSTEMS- GENERAL: Negative for fever, malaise, fatigue.EY ES: Legally blind. Negative for blurry vision. No diplopia.EARS/NOSE/THROAT: Negative for sore thr oat. No otalgia. No rhinorrhea.RESPIRATORY: Negative for dyspnea or wheeze. No cough.CARDIOVASCULAR: Negative for ch est pain or palpitations. No extremity swelling.GASTROINTES TINAL: Negative for abdominal pain or nausea. No emesis . No diarrhea.GENITOURINARY: Negative for dysuria, fr equency, or urgency. No gross hematuria.MUSCULOSKELETAL: L foot woundSKIN: L foot woundNEUROLOGICAL: Negative fo r headache. No vertigo. Denies paresthesias.PSYCHIATRIC: Ne gative for specific complaints.ENDOCRINE: Negative for cold intolerance, heat intolerance, polyphagia, polyd ipsia, polyuria, weight change, fatigue. -- OBJECTIVE - - VITALS (03/10 08:15 - 03/11 08:15):Temperature C: 36.9 (36.4 - 37.4)Pulse Rate 73 (69 - 93)Respiratory rate: 14 (14 - 15)Blood pressure: 132/72 (125/72 - 188/111) -EX AM- GENERAL: Well developed, well nourished, in no a pparent distress, thin frail female. appears older than stated ageHEAD: Normocephalic, atraumatic.EYES: r eye w ith chronic changes, sunken; L eye with chronic changesNECK: No masses, no thyromegaly, no abnormal cervical nodes, tra courtney midline.CHEST: Grossly normal appearance.LUNGS: Clear bilaterally with normal respiratory effort.HEART : Regular rate and rhythm, normal S1, S2, no murmurs, no r ubs, no gallops, no clicks.ABDOMEN: Soft, non-tender, no organomegaly, no masses noted.MUSCULOSKELETAL: L foot with scabbed wound to dorsum of foot approx 3.5 x 1 c m. dark, necrotic changes over 2nd and 3rd toe. TTP over toes. Foot warm with improved pulses.EXTREMITIES: No clubbi ng, no cyanosis, no edema.NEUROLOGICAL: No focal defici ts, cranial nerves II-XII grossly intact, normal sensation, normal reflexes, normal coordination, normal muscle st rength, normal tone.PULSES: Pulses normal in all extremities.PSYCHIATRIC: Alert and oriented to t eduardo, person, place. Normal mood and affect, intact j udgment and insight. -- DATA -- MEDICATIONS MULTIVITAMIN WIT H FOLIC ACID 1 TAB PO DAILYDEXTROSE 16 GM PO ASDIR (PRN) VANCOMYCIN HCL with/in SODIUM CHLORIDE 100 mL BAG 500 MG IV [id number] 10 MG PO DAILY GLUCAGON 1 MG IV DIR (PRN)INSULIN LISPRO UNITS SUBQ AC HSINSULIN GLAR GINE 30 UNITS SUBQ [id number] 20 MG PO DAILYMETOPRO LOL TARTRATE 12.5 MG PO [id number] HCL/PF 4 MG IV Q4H PRNPIPERAC/TAZOBACTAM with/in SODIUM CHLORIDE 10 0 mL BAG 3.375 GM IV [id number] 1 TAB PO BID PRNACETA MINOPHEN 500 MG PO Q6H PRNISOSORBIDE DINITRATE 5 MG PO BI D 9A 5PFERROUS SULFATE 325 MG PO BIDASPIRIN 81 MG PO BEDTIMEVANCOMYCIN PHARMACY TO DOSE 1 EACH IV ASDIRclopidogreL 75 MG PO DAILY LABS GLU BED ( 08:04)GLUBED 168 H BASIC METABOLIC PANEL (11/11/ 23 06:37)SODIUM 133L LPOTASSIUM 3.8CHLORIDE 101CARB ON DIOXIDE 28ANION GAP 7.8GLUCOSE 175H HBLOOD UREA NITROGE N 19GLOMERULAR FILTRATION RATE 49 LCREATININE 1.2BUN/CREATININE RATIO 15.8CALCIUM 8.8 GLU BED (03/10/23 21:04)GLUBED 146 H GLU BED (03/10/23 12:52)GLUBE D 147 H GLU BED (03/10/23 12:20)GLUBED 53 L GLU BED ( 11:15)GLUBED 62 L Signed in PatientKeeper by BRITNEY SOLIS DO on 03/11/23 at 08:17 Electronically Sign ed by Britney Winchester DO on 03/11/23 at 0817ATTENTION EDITS and/or ADDENDA must be ma de in Patient Keeper for this note. Edits and ammen dments created in [employer] are not visible in Patien t Keeper or the legal medical record (HPF). [facility] #: [id number] OF REPORT PRProgress [id number]:33:[id number] Available for patient [id number]:17:5 8 2023-03-10 [id number] [facility] 17:34:[address] [address] PATIENT NAME: DANIELE HINKLE ADMIT D ATE: 03/06/23ACCOUNT NO: [id number] ROOM NO: TN.320 6 AGE: 72 REPORT TYPE: OPERA TIVE REPORT SEX: F ADMITTING PHYSICIAN:Erasmo Fay ATTENDING PHYSICIAN:Erasmo Fay MD OPERATION DATE: 03/10/2023 PREOPERATIVE DIAGNOSIS: Critical limb ischemia, left lower extremity withulceration. POSTOPERATIVE DIAGNOSI S: Critical limb ischemia, left lower extremity withulcerati on. PROCEDURE PERFORMED:1. Ultrasound-guided cannula tion of the right common femoral artery.2. Left lower extrem ity angiogram.3. Right lower extremity angiogram.4. Catheter placement, left popliteal artery.5. Intravascula r ultrasound of left popliteal artery, superficial femoralartery.6. Laser atherectomy of left super ficial femoral artery and popliteal arteryusing a 2.0 l aser followed by 5 x 300 mm drug-coated balloon angio plasty.7. Moderate sedation, total time 30 minutes. SURGEO N: Jose Daniel Wall DO. ANTI TANK MISSILEMAN: Edil Hernadez, PGY2, surgic al resident. HEPARIN: 3000 units of intravenous hep mellisa. PROTAMINE: None. ANESTHESIA: Moderate sedation a nd local anesthetic. Please note, I personallysupervised nurse in administration of moderate sedation, 1 mg of Carol sed and 50mcg of fentanyl was administered. INDICATIONS FOR PROCEDURE: The patient is a pleasant female with significantperipheral vascular disease. Risks, b enefits were discussed. She wishes for usto proceed with angiogram and intervention. FINDINGS: The patient had danielle re multifocal stenosis measuring up to 80% in thesu perficial femoral artery as well as the popliteal artery. We performed laseratherectomy with angioplasty. The re appears to be revascularized tibioperonealtrunk and prev iously reconstructed posterior tibial artery is widely patent.The patient had a left posterior tibial pulse on venkatesh e completion. PROCEDURE IN DETAIL: The patient was brought to the laborer brush clearing and laid in PATIENT NAME: DANNY HINKLE supine position. The regulo ins were prepped and draped in standard surgicalfashion. A timeout was performed. The ultrasound was used to gain a ccess inthe right common femoral artery in a retrograde fash ion using microneedle.Image was stored. Vessel was patent. Micro needle was used. Microwire wasadvanced. Micropun cture sheath was placed. A 6-[place] sheath was placed. Advantage guidewire was advanced. RBI catheter was used to cross the aorticbifurcation. Catheter was placed in the le ft groin. We performed a left lowerextremity angiogram, wh ich was necessary to determine the patency of ourpreviou s revascularization. The superficial femoral and p opliteal artery werepatent, but there was diffuse stenosi s, which was quite significant, it wasdifficult to ascert ain on angiogram alone the morphology of plaque as well asdegree of stenosis and the size of the vessel. A crosso carol sheath was placed.I then performed intravascular ultras ound of the left superficial femoral arteryand the popliteal artery. There was 80-90% stenosis which was multifocal.T here was severe soft plaque. I then placed a 0.014 wire i nto the posteriortibial artery. The intravascular ultras ound demonstrated a 5 mm vessel withdiffuse stenosis, we were intraluminal along its course. This was the case insuperficial femoral artery. The popliteal chace ry intravascular ultrasounddemonstrated a 5 mm vess el as well as up to 80% stenosis. There was softplaque. The IVUS was necessary as angiogram demonstrated necessary findingsalone. Individual ultrasound was done of each vessel, distinct from standard pullback. Based o n this, we brought a 2.0 laser to the field and performed l aser atherectomy. A 5 x 300 mm drug- coated balloon w as then used to perform balloon angioplasty. It was main tained for 5 minutes. There was significant improvement in flow. We then performed right lower extremity angiogram, which demonstrated a patent right common femoral arter y, superficial femoral, and profunda femoral artery . Popliteal artery was patent. There was diffuse tibial dise ase though there was diffuse popliteal artery and superfici al femoral artery disease as well. The primary outflow was via the posterior tibial artery. Peroneal artery was pat ent. Anterior tibial artery had occlusion. Mynx closu re device was used to close the groin cannulation site and this was successful. The patient tolerated the procedure well and was taken to recovery in stable condition. I was present and scrubbed for duration of the procedure. Spon ge and needle counts were correct. Dictated By: Jose Daniel Wall DO Date Dictated: 03/10/2023 17:34:01Date Transcrib ed: 03/10/2023 20:48:23NRD/SANDavid #: [id number] t ID: [id number] and Edited by Jose Daniel Wall DO On 03/12/23 8:54:59 AM at 0856 PATIENT NAME: KHADIJAH HINKLE [id number]:48:[id number] ailable for patient [id number]:58:30 2023-03-10 [id number]:15:00 [facility]15[facility]00 [facility]-VancomycinREPORT#:[id number] REPORT STA TUS: SignedREPORT INITIALIZATION DATE:03/10/23 TIME: 1015 PATIENT: DANIELE HINKLE UNIT #: [id number] [facility]: 1DOB: [birth year] AG E: 72 SEX: F ATTEND: Erasmo Fay [facility] AUTHOR: Darryl Dickens [facility] SERVICE DT/TIME: 03/10/23 1015* ALL edits or amendments must be made on the electron ic/computer document * Vancomycin Vancomycin Medication Ther apyCurrent therapy:ZOSYN, IV VANCOMYCINTreatment plan: cont current regimen/doseRegimen:03/10/2023 @0509 RANDOM VANC LEVEL = 8.7 ; 03/09/2023 PREVIOUS 1800 VANC DOSE MISSEDC ONTINUED WITH VANC 500 MG Q 12 HRS ([id number]) Follow up: Lab:03/11/2023 @1000 NEXT VANC LEVEL SCHEDULED Electronically Signed by Darryl Dickens [facility] on at 1019 [facility] #:[id number] OF REPORTPRProgres s [id number]:15:[id number] ilable for patient [id number]:19:39 2023-03-09 [id number]:23:00 [facility] 21:23:00 [facility]Vascular Surg. Progress Note REPOR T #: [id number] REPORT STATUS: Signed DATE: 03/09/23 T EDUARDO: 2123 PATIENT: DANIELE HINKLE UNIT #: [id number] ROOM #: TN.3206 BED: 1 : 3 AGE: 72 SEX: F ATTEND: Erasmo Fay MD ADM DT: AUTHOR: Jose Daniel Wall DO ATTENTION EDITS and/or ADDENDA must be made i n Patient Keeper for this note. Edits and ammendments c reated in [facility] are not visible in Patient Keeper or the legal medical record (HPF). -- ASSESSMENT AND PLAN -- PROBLEMS : 1: Displaced fracture of distal phalanx of left gre at toe, initial encounterfor closed fractureA/P: ortho c onsulted Recommend outpt eval. 2: Type 1 diabetes mellitu s with diabetic chronic kidney diseaseA/P: Tight glycem ic control discussed 3: Peripheral arterial diseaseA/P: Art erial duplex reviewed.s/p LLE angiogram, TP trunk, per martel, PT atherectomy, angioplasty 03/08/2023 Plan angiogra m tmrw -- SUBJECTIVE -- CHIEF COMPLAINT:denies HPI:no acut e events -REVIEW OF SYSTEMS- COMMENT: 12 pt ROS conducted , pertinent positives as noted above -- OBJECTIVE -- VITALS (03/08 21:23 - 03/09 21:23):Temperature C: 37.7 (36.5 - 37.8)Temperature source: OralPulse Rate 79 (75 - 93)Respiratory rate: 18 (16 - 20)Blood pressure: 119/67 (119/66 - 148/82) -EXAM- GENERAL: Well developed , well nourished, in no apparent distress, thin frail f emale. appears older than stated ageHEAD: Normocephalic , atraumatic.EYES: r eye with chronic changes, sun regan; L eye with chronic changesNECK: No masses, no thyromeg kimberly, no abnormal cervical nodes, trachea midline.CHEST: Grossly normal appearance.LUNGS: Clear bilaterally with normal respiratory effort.HEART: Regular rate and rhyth m, normal S1, S2, no murmurs, no rubs, no gallops, no clicks.ABDOMEN: Soft, non-tender, no organomegal y, no masses noted.MUSCULOSKELETAL: L foot with scabbe d wound to dorsum of foot approx 3.5 x 1 cm. dark, necrotic changes over 2nd and 3rd toe.EXTREMITIES: No clubbing, n o cyanosis, no edema.NEUROLOGICAL: No focal deficits, crania l nerves II-XII grossly intact, normal sensation, normal reflexes, normal coordination, normal muscle strength, nor mal tone.PULSES: L PT pulse faintly palpablte.PSYCHI ATRIC: Alert and oriented to time, person, place. Shannan l mood and affect, intact judgment and insight. -- DATA -- MEDICATIONS MULTIVITAMIN WITH FOLIC ACID 1 TAB PO DAILYINSUL IN LISPRO UNITS SUBQ AC HSINSULIN GLARGINE 30 UNITS SUBQ [id number] 16 GM PO ASDIR (PRN)VANCOMYCIN HCL with/in SODIUM CHLORIDE 100 mL BAG 500 MG IV Q12HR@0600,1800CITALOPRAM 20 MG PO DAILYMETOPROL OL TARTRATE 12.5 MG PO [id number] HCL/PF 4 MG IV Q4H PRNPIPERAC/TAZOBACTAM with/in SODIUM CHLORIDE 10 0 mL BAG 3.375 GM IV Q3PZNHAVTPBPED 1 TAB PO BID PRNACETA MINOPHEN 500 MG PO Q6H PRNISOSORBIDE DINITRATE 5 MG PO BI D 9A 5PFERROUS SULFATE 325 MG PO BIDASPIRIN 81 MG PO BEDTIMEVANCOMYCIN PHARMACY TO DOSE 1 EACH IV ASD IREZETIMIBE 10 MG PO DAILYclopidogreL 75 MG PO DAILYGLUCAGON 1 MG IV ASDIR (PRN) LABS GLU BED (03/09/23 19:49)GLUBED 287 H GLU BED (03/09/23 16:19)GLUBED 321 H VANCO TR (03/09 14:39)VANCOMYCIN TROUGH 14.8 GLU BED (03/09/23 1 2:05)GLUBED 217 H GLU BED (03/09/23 10:10)GLUBED 106 H GLU B ED (03/09/23 07:44)GLUBED 116 H CBC W/AUTO DIFF (1 05/09/22 06:46)WHITE BLOOD CELL 8.0RED BLOOD CELL 3.40 LH EMOGLOBIN 10.2L LHEMATOCRIT 30.7L LMEAN CELL VOLUME 90MEAN CELL HGB 30.0MEAN CELL HGB CONCENTRATION 33.2RED CELL DIS TRIBUTION WIDTH 14.3PLATELET COUNT 260MEAN PLATELET VOLUME 10.6NEUTROPHIL % 72.7IMMATURE GRANULOCYTE % 0.5L YMPHOCYTE % 14.6MONOCYTE % 9.9EOSINOPHIL % 1.8BASOPHIL % 0.5 NUCLEATED RBC % 0.0NEUTROPHIL # 5.80IMMATURE GRANULOCYTE # 0.040LYMPHOCYTE # 1.16 LMONOCYTE # 0.79EOSINOPH IL # 0.14BASOPHIL # 0.04NUCLEATED RBC # 0.000 COMPREH ENSIVE METABOLIC PANEL (03/09/23 06:46)SODIUM 134L LPOT ASSIUM 3.8CHLORIDE 102CARBON DIOXIDE 26ANION GAP 9.8GLU COSE 137H HBLOOD UREA NITROGEN 15GLOMERULAR FILTRATION RA TE >=60 max estimateCREATININE 1.0BUN/CREATININE RATIO 15.0T OTAL PROTEIN 7.7ALBUMIN 2.4 LCALCIUM 8.5BILIRUBIN TO TERRA 0.9SGOT/AST 23SGPT/ALT 15ALKALINE PHOSPHATASE 88 GLU BED (03/08/23 21:34)GLUBED 139 H Signed in PatientKe eper by Jose Daniel Wall DO on 03/09/23 at 21:29 Electronic ally Signed by Jose Daniel Wall DO on 03/09/23 at 2129ATTENTION EDITS and/or ADDENDA must be ma de in Patient Keeper for this note. Edits and ammen dments created in [employer] are not visible in Patien t Keeper or the legal medical record (HPF). RPT #: [id number] OF REPORT PRProgress [id number]:23:[id number] Available for patient [id number]:30:0 0 2023-03-09 [id number]:38:00 [facility] 19:38:00 [place] ([facility])Family Medicine Progress Note REPO RT #: [id number] REPORT STATUS: Signed DATE: 03/09/23 T EDUARDO: 1938 PATIENT: DANIELE HINKLE UNIT #: [id number] ROOM #: NC.3206 BED: 1 : 3 AGE: 72 SEX: F ATTEND: Erasmo Fay MD ADM DT: AUTHOR: Britney Winchester DO ATTENTION EDITS and/or ADDENDA must be made i n Patient Keeper for this note. Edits and ammendments created in [employer] are not visible in Patient Keeper or the legal medical record (HPF). -- ASSESSMENT AND PLAN -- PROBLEMS : 1: Displaced fracture of distal phalanx of left gre at toe, initial encounterfor closed fractureA/P: admit t o med/surgortho consulted - appreciate recs - plan for no surgical intervention at thistimeout pt f/u 2: C ellulitis of left toeA/P: wound care orderedcont vanc and zosynconsult wound care physician 3: Type 1 diab etes mellitus with diabetic polyneuropathyA/P: cont h ome medssliding scale 4: Type 1 diabetes mellitus wi th diabetic chronic kidney disease 5: CAD (coronary artery d isease)A/P: cont home meds 6: Peripheral arterial diseaseA/P : consult dr. vickers/p angioplasty of LLE - plan for angio gram tomorrowcont home meds consider home with HH if cleared by consultants in 1-2d and continuing toimprove -- SUBJECTIVE -- PATIENT NARRATIVE:reports doing well after pr ocedure yest. had some low sugars but eating wellnow. no susan some pain in foot -REVIEW OF SYSTEMS- GENERAL: Negati ve for fever, malaise, fatigue.EYES: Legally blind. Neg ative for blurry vision. No diplopia.EARS/NOSE/THROAT: Neg ative for sore throat. No otalgia. No rhinorrhea.RESPIRATO RY: Negative for dyspnea or wheeze. No cough.CARDIOV ASCULAR: Negative for chest pain or palpitations. No extr emity swelling.GASTROINTESTINAL: Negative for abdomina l pain or nausea. No emesis. No diarrhea.GENITOURINARY: Ne gative for dysuria, frequency, or urgency. No gross hematuria.MUSCULOSKELETAL: L foot woundSKIN: L f oot woundNEUROLOGICAL: Negative for headache. No carol tigo. Denies paresthesias.PSYCHIATRIC: Negative for sp ecific complaints.ENDOCRINE: Negative for cold intoler ance, heat intolerance, polyphagia, polydipsia, polyuria, w eight change, fatigue. -- OBJECTIVE -- VITALS (03/09 0 6:03 - 03/10 06:03):Temperature C: 37.0 (36.9 - 37.8)Te mperature source: OralPulse Rate 74 (74 - 85)Respiratory r ate: 18 (16 - 18)Blood pressure: 146/77 (119/66 - 148/77) -E XAM- GENERAL: Well developed, well nourished, in no apparent distress, thin frail female. appears older than stated ageHEAD: Normocephalic, atraumatic.EYES: r eye w ith chronic changes, sunken; L eye with chronic changesNECK: No masses, no thyromegaly, no abnormal cervical nodes, trac hea midline.CHEST: Grossly normal appearance.LUNGS: Clear bilaterally with normal respiratory effort.HEART : Regular rate and rhythm, normal S1, S2, no murmurs, no r ubs, no gallops, no clicks.ABDOMEN: Soft, non-tender, no organomegaly, no masses noted.MUSCULOSKELETAL: L foot with scabbed wound to dorsum of foot approx 3.5 x 1 c m. dark, necrotic changes over 2nd and 3rd toe. TTP over toes. Foot warm with improved pulses.EXTREMITIES: No clubbi ng, no cyanosis, no edema.NEUROLOGICAL: No focal defici ts, cranial nerves II-XII grossly intact, normal sensation, normal reflexes, normal coordination, normal muscle str ength, normal tone.PULSES: Pulses normal in all extremities.PSYCHIATRIC: Alert and oriented to t eduardo, person, place. Normal mood and affect, intact ju dgment and insight. -- DATA -- MEDICATIONS MULTIVITAMIN WIT H FOLIC ACID 1 TAB PO DAILYINSULIN LISPRO UNITS SUBQ AC HSINSULIN GLARGINE 30 UNITS SUBQ Q12HR DEXTROSE 16 GM PO A SDIR (PRN)VANCOMYCIN HCL with/in SODIUM CHLORIDE 100 mL BAG 500 MG IV Q12HR@0600,1800CITALOPRAM 20 MG PO DAILYME TOPROLOL TARTRATE 12.5 MG PO [id number] HCL/PF 4 MG IV Q4H PRNPIPERAC/TAZOBACTAM with/in SODIUM CHLORIDE 10 0 mL BAG 3.375 GM IV [id number] 1 TAB PO BID PRNACETA MINOPHEN 500 MG PO Q6H PRNISOSORBIDE DINITRATE 5 MG PO BI D 9A 5PFERROUS SULFATE 325 MG PO BIDASPIRIN 81 MG PO BEDTIMEVANCOMYCIN PHARMACY TO DOSE 1 EACH IV ASD IREZETIMIBE 10 MG PO DAILYclopidogreL 75 MG PO DAILYGLUCAGON 1 MG IV ASDIR (PRN) LABS GLU BED (03/10/23 05:32)GLUBED 221 H GLU BED (03/09/23 23:56)GLUBED 436 *H GLU BED (03/09 23:54)GLUBED 469 *H GLU BED (03/09/23 19:49)GLUB ED 287 H GLU BED (03/09/23 16:19)GLUBED 321 H VANCO TR (1 05/09/22 14:39)VANCOMYCIN TROUGH 14.8 GLU BED (03/09/23 1 2:05)GLUBED 217 H GLU BED (03/09/23 10:10)GLUBED 106 H GLU B ED (03/09/23 07:44)GLUBED 116 H CBC W/AUTO DIFF ( 06:46)WHITE BLOOD CELL 8.0RED BLOOD CELL 3.40 L HEMOGLOBIN 10.2L LHEMATOCRIT 30.7L LMEAN CELL VOLUME 90MEAN CELL HGB 30.0MEAN CELL HGB CONCENTRATION 33.2RED CELL DIS TRIBUTION WIDTH 14.3PLATELET COUNT 260MEAN PLATELET VOLUME 10.6NEUTROPHIL % 72.7IMMATURE GRANULOCYTE % 0.5L YMPHOCYTE % 14.6MONOCYTE % 9.9 EOSINOPHIL % 1.8BASOPHIL % 0 .5NUCLEATED RBC % 0.0NEUTROPHIL # 5.80IMMATURE GRANULOCYTE # 0.040LYMPHOCYTE # 1.16 LMONOCYTE # 0.79EOSINOPHI L # 0.14BASOPHIL # 0.04NUCLEATED RBC # 0.000 COMPRE HENSIVE METABOLIC PANEL (03/09/23 06:46)SODIUM 134L LPOT ASSIUM 3.8CHLORIDE 102CARBON DIOXIDE 26ANION GAP 9.8GLU COSE 137H HBLOOD UREA NITROGEN 15GLOMERULAR FILTRATION RAT E >=60 max estimateCREATININE 1.0BUN/CREATININE RATIO 15.0T OTAL PROTEIN 7.7ALBUMIN 2.4 LCALCIUM 8.5BILIRUBIN TOT AL 0.9SGOT/AST 23SGPT/ALT 15ALKALINE PHOSPHATASE 8 8 Signed in PatientKeeper by BRITNEY WINCHESTER DO on 03/10/23 at 06:05 at 0605ATTENTION EDITS and/or ADDENDA must be ma de in Patient Keeper for this note. Edits and ammen dments created in Uniplaces are not visible in Patien t Keeper or the legal medical record (HPF). [facility] #: [id number] OF REPORT PRProgress [id number]:38:[id number] Available for patient [id number]:06:2 7 2023-03-09 [id number]:55:00 [facility] 17:55:00 [facility] ([facility])Pharmacy Prog.Note-VancomycinREPORT#:[id number] REPORT STA TUS: SignedREPORT INITIALIZATION DATE:03/09/23 TIME: 2085 PATIENT: DANIELE HINKLE UNIT #: [id number] [address]DOB: [birth year] AG E: 72 SEX: F ATTEND: Erasmo Fay [facility] AUTHOR: Herman Guillory [facility]PT SERVICE DT/TIME: 03/09/23 17 55* ALL edits or amendments must be made on the electron ic/computer document * Vancomycin Vancomycin Medication Ther apyGoal: trough 10-15 mcg/mLIndication for treatment:SSTI X 7 DAYSCurrent therapy:ZOSYN, IV VANCOMYCINDay of t herapy:DAY # 2Actual weight (kg):54.545 VS and I/O:Vital Si gns Date Temp Pulse Resp B/P B/P Mean Pulse Ox FiO2 03/08 -03/09 36.5-37.8 75-93 16-20 122-163/66-93 0.0-115.5 94 -98 Labs:Laboratory Tests: 03/09 143 Toxicology Van comycin Trough (10.0 - 20.0 ug/mL) 14.8 Laboratory Test : 03/06 0617 0646 Chemistry BUN (4 - 2 3 mg/dL) 24 H 19 15 Creatinine (0.6 - 1.5 mg/dL) 1.3 1.1 1.0 Hematology WBC (4.5 - 11.0 10 3/uL) 7.8 6.1 8.0 Microbiolo gy:03/07 0514 NASAL: MRSA Screen - COMP03/06 1945 BLOOD: Blood Culture - RES03/06 1945 BLOOD: Blood Culture - R ES03/06 1940 BLOOD: Blood Culture - RES03/06 1940 BLOOD: Blood Culture - RES Treatment plan: consult, cont curr ent regimen/doseRegimen:CONTINUE CURRENT REGIMEN OF VANCOMYCIN 500 MG IV Q12H @ 6422-3956.Follow up: Lab:OBTAIN VANC TROUGH ON 03/11/23 @ 0500. at 1758 RPT #:[id number] OF REPORTPRProgress [id number]:55:[id number] ilable for patient [id number]:58:23 2023-03-08 [id number]:00:00 [facility] 21:[facility]:00 [facility] ([facility])Vascular Surg. Progress Note REPOR T #: [id number] REPORT STATUS: Signed DATE: 03/08/23 T EDUARDO: 2100 PATIENT: DANIELE HINKLE UNIT #: [id number] ROOM #: NC.3206 BED: 1 : AGE: 72 SEX: F ATTEND: Erasmo Fay MD ADM DT: AUTHOR: Jose Daniel Wall DO ATTENTION EDITS and/or ADDENDA must be made i n Patient Keeper for this note. Edits and ammendments c reated in Uniplaces are not visible in Patient Keeper or the legal medical record (HPF). -- ASSESSMENT AND PLAN -- PROBLEMS : 1: Displaced fracture of distal phalanx of left gre at toe, initial encounterfor closed fractureA/P: ortho c onsulted Recommend outpt eval. d/w Dr. Chairez. 2: Type 1 tati betes mellitus with diabetic chronic kidney diseaseA/P : Tight glycemic control discussed d/w family at length 3: Peripheral arterial diseaseA/P: Arterial duplex reviewed.s/p LLE angiogram, TP trunk, peroneal, PT atherectomy, angioplasty 03/08/2023 Plan staged a ngiogram Monday. -- SUBJECTIVE -- CHIEF COMPLAINT:denies HPI:angiogram today -REVIEW OF SYSTEMS- COMMENT: 12 pt ROS conducted, pertinent positives as noted above -- OBJECTIVE -- VITALS (03/08 21:30 - 03/09 21:30):Temperatur e C: 37.7 (36.5 - 37.8)Temperature source: Oral Pulse Rate 79 (75 - 93)Respiratory rate: 18 (16 - 20)Blood pressure: 119/67 (119/66 - 148/82) -EXAM- GENERAL: Well developed , well nourished, in no apparent distress, thin frail female. appears older than stated ageHEAD: Normocephalic , atraumatic.EYES: r eye with chronic changes, sun regan; L eye with chronic changesNECK: No masses, no thyromeg kimberly, no abnormal cervical nodes, trachea midline.CHEST: Grossly normal appearance.LUNGS: Clear bilaterally with normal respiratory effort.HEART: Regular rate and rhyth m, normal S1, S2, no murmurs, no rubs, no gallops, no clic ks.ABDOMEN: Soft, non-tender, no organomegaly, no masses noted.MUSCULOSKELETAL: L foot with scabbed wound to dorsum of foot approx 3.5 x 1 cm. dark, necrotic change s over 2nd and 3rd toe.EXTREMITIES: No clubbing, no cyanosi s, no edema.NEUROLOGICAL: No focal deficits, cranial n erves II-XII grossly intact, normal sensation, normal reflexes, normal coordination, normal muscle strength, nor mal tone.PULSES: L PT pulse faintly palpable.PSYCHIA TRIC: Alert and oriented to time, person, place. Normal mood and affect, intact judgment and insight. -- DATA -- MEDICATIONS MULTIVITAMIN WITH FOLIC ACID 1 TAB PO DAILYINSUL IN LISPRO UNITS SUBQ AC HSINSULIN GLARGINE 30 UNITS SUBQ [id number] 16 GM PO ASDIR (PRN)VANCOMYCIN HCL with/in SODIUM CHLORIDE 100 mL BAG 500 MG IV Q12HR@0600,1800CITALOPRAM 20 MG PO DAILYMETOPROL OL TARTRATE 12.5 MG PO [id number] HCL/PF 4 MG IV Q4H PRNPIPERAC/TAZOBACTAM with/in SODIUM CHLORIDE 10 0 mL BAG 3.375 GM IV [id number] 1 TAB PO BID PRNACETA MINOPHEN 500 MG PO Q6H PRNISOSORBIDE DINITRATE 5 MG PO BI D 9A 5PFERROUS SULFATE 325 MG PO BIDASPIRIN 81 MG PO BEDTIMEVANCOMYCIN PHARMACY TO DOSE 1 EACH IV ASD IREZETIMIBE 10 MG PO DAILYclopidogreL 75 MG PO DAILYGLUCAGON 1 MG IV ASDIR (PRN) LABS GLU BED (03/09/23 19:49)GLUBED 287 H GLU BED (03/09/23 16:19)GLUBED 321 H VANCO TR (03/09 14:39)VANCOMYCIN TROUGH 14.8 GLU BED (03/09/23 1 2:05)GLUBED 217 H GLU BED (03/09/23 10:10)GLUBED 106 H GLU BED (03/09/23 07:44)GLUBED 116 H CBC W/AUTO DIFF ( 06:46)WHITE BLOOD CELL 8.0RED BLOOD CELL 3.40 LH EMOGLOBIN 10.2L LHEMATOCRIT 30.7L LMEAN CELL VOLUME 90MEAN CELL HGB 30.0MEAN CELL HGB CONCENTRATION 33.2RED CELL DIS TRIBUTION WIDTH 14.3PLATELET COUNT 260MEAN PLATELET VOLUME 10.6NEUTROPHIL % 72.7IMMATURE GRANULOCYTE % 0.5L YMPHOCYTE % 14.6MONOCYTE % 9.9EOSINOPHIL % 1.8BASOPHIL % 0.5 NUCLEATED RBC % 0.0NEUTROPHIL # 5.80IMMATURE GRANULOCYTE # 0.040LYMPHOCYTE # 1.16 LMONOCYTE # 0.79EOSINOPHI L # 0.14BASOPHIL # 0.04NUCLEATED RBC # 0.000 COMPRE HENSIVE METABOLIC PANEL (03/09/23 06:46)SODIUM 134L LPOT ASSIUM 3.8CHLORIDE 102CARBON DIOXIDE 26ANION GAP 9.8GL UCOSE 137H HBLOOD UREA NITROGEN 15GLOMERULAR FILTRATION RAT E >=60 max estimateCREATININE 1.0BUN/CREATININE RATIO 15.0T OTAL PROTEIN 7.7ALBUMIN 2.4 LCALCIUM 8.5BILIRUBIN TOT AL 0.9SGOT/AST 23SGPT/ALT 15ALKALINE PHOSPHATASE 88 GLU BED (03/08/23 21:34)GLUBED 139 H Signed in PatientKe eper by Jose Daniel Wall DO on 03/09/23 at 21:34 Electronic ally Signed by Jose Daniel Wall DO on 03/09/23 at 2134ATTENTION EDITS and/or ADDENDA must be ma de in Patient Keeper for this note. Edits and ammen dments created in Un[employer] are not visible in Patien t Keeper or the legal medical record (HPF). RPT #: [id number] OF REPORT PRProgress [id number]:00:[id number] Available for patient [id number]:35:0 1 2023-03-08 [id number]:35:00 [facility] 19:35:00 [place] ([facility])Family Medicine Progress Note REPO RT #: [id number] REPORT STATUS: Signed DATE: 03/08/23 T EDUARDO: 1935 PATIENT: DANIELE HINKLE UNIT #: [id number] ROOM #: NC.3206 BED: 1 : AGE: 72 SEX: F ATTEND: Erasmo Fay MD ADM DT: AUTHOR: Britney Winchester DO ATTENTION EDITS and/or ADDENDA must be made i n Patient Keeper for this note. Edits and ammendments c reated in Unipl[employer] are not visible in Patient Keeper or the legal medical record (HPF). -- ASSESSMENT AND PLAN -- PROBLEMS : 1: Displaced fracture of distal phalanx of left gre at toe, initial encounterfor closed fractureA/P: admit t o med/surgortho consulted - appreciate recs - plan for no surgical intervention at thistime 2: Cellulitis of left toeA/P: wound care orderedcont jennifer and bob moeller wound care physician 3: Type 1 diabetes mellitus with diabetic polyneuropathyA/P: cont home medssliding scale 4 : Type 1 diabetes mellitus with diabetic chronic kidney d isease 5: CAD (coronary artery disease)A/P: cont home meds 6: Peripheral arterial diseaseA/P: consult dr. paolo Joseph for cath today with angiogram - f/u resultscont home meds -- SUBJECTIVE -- PATIENT NARRATIVE:feeling ok, note s some pain in foot. reports nervous for cath. family at bed side -REVIEW OF SYSTEMS- GENERAL: Negative for fever , malaise, fatigue.EYES: Legally blind. Negative for blurry vision. No diplopia.EARS/NOSE/THROAT: Negative for sore thr oat. No otalgia. No rhinorrhea.RESPIRATORY: Negative for dyspnea or wheeze. No cough.CARDIOVASCULAR: Negative for ch est pain or palpitations. No extremity swelling. GASTROINTES TINAL: Negative for abdominal pain or nausea. No emesis . No diarrhea.GENITOURINARY: Negative for dysuria, fr equency, or urgency. No gross hematuria.MUSCULOSKELETAL: L f oot woundSKIN: L foot woundNEUROLOGICAL: Negative fo r headache. No vertigo. Denies paresthesias.PSYCHIATRIC: Neg ative for specific complaints.ENDOCRINE: Negative for cold intolerance, heat intolerance, polyphagia, polyd ipsia, polyuria, weight change, fatigue. -- OBJECTIVE - - VITALS (03/08 06:03 - 03/09 06:03):Temperature C: 36.8 (36.5 - 37.6)Temperature source: OralPulse Rate 77 (71 - 93)Respiratory rate: 20 (15 - 20)Blood pressure: 138/82 (113/66 - 163/93) I/Os (03/07 07:00 - 03/08 07:0 0):Net 200Intake 200 -EXAM- GENERAL: Well developed, we ll nourished, in no apparent distress, thin frail f emale. appears older than stated ageHEAD: Normocephalic , atraumatic.EYES: r eye with chronic changes, sun regan; L eye with chronic changesNECK: No masses, no thyrome ciara, no abnormal cervical nodes, trachea midline.CHEST: Grossly normal appearance.LUNGS: Clear bilaterally with normal respiratory effort.HEART: Regular rate and rhyth m, normal S1, S2, no murmurs, no rubs, no gallops, no clic ks.ABDOMEN: Soft, non-tender, no organomegaly, no masses noted.MUSCULOSKELETAL: L foot with scabbed wound to dorsum of foot approx 3.5 x 1 cm. dark, necrotic change s over 2nd and 3rd toe. TTP over toes. Foot warm with dimin ished pulses.EXTREMITIES: No clubbing, no cyanosis, no edema.NEUROLOGICAL: No focal deficits, cranial n erves II-XII grossly intact, normal sensation, normal reflexes, normal coordination, normal muscle strength, nor mal tone.PULSES: Pulses normal in all extremities.PS YCHIATRIC: Alert and oriented to time, person, place. Shannan l mood and affect, intact judgment and insight. -- DATA -- MEDICATIONS MULTIVITAMIN WITH FOLIC ACID 1 TAB PO DAILYINSUL IN LISPRO UNITS SUBQ AC HSINSULIN GLARGINE 30 UNITS SUBQ [id number] 16 GM PO ASDIR (PRN) VANCOMYCIN HC L with/in SODIUM CHLORIDE 100 mL BAG 500 MG IV Q12HR@0600,1800CITALOPRAM 20 MG PO DAILYMETOPROL OL TARTRATE 12.5 MG PO [id number]/TAZOBACTAM with/in SODIU M CHLORIDE 100 mL BAG 3.375 GM IV [id number] 1 TAB PO B ID PRNACETAMINOPHEN 500 MG PO Q6H PRNISOSORBIDE DIN ITRATE 5 MG PO BID 9A 5PFERROUS SULFATE 325 MG PO BIDASPIRIN 81 MG PO BEDTIMEVANCOMYCIN PHARMACY TO DOSE 1 EACH IV ASD IREZETIMIBE 10 MG PO DAILYclopidogreL 75 MG PO DAILYGLUCAGON 1 MG IV ASDIR (PRN) LABS GLU BED (03/08/23 21:34)GLUBED 139 H GLU BED (03/08/23 21:01)GLUBED 58 L GLU BED ( 3 16:58)GLUBED 120 H GLU BED (03/08/23 15:47)GLUBE D 50 L GLU BED (03/08/23 12:13)GLUBED 82 GLU BED (03/08/23 07:47)GLUBED 159 H CBC W/AUTO DIFF (03/08/23 06: 17)WHITE BLOOD CELL 6.1RED BLOOD CELL 3.43 LHEMOGLOBIN 10 .3L LHEMATOCRIT 30.8L LMEAN CELL VOLUME 90MEAN CELL HGB 30.0MEAN CELL HGB CONCENTRATION 33.4RED CELL DIS TRIBUTION WIDTH 14.1PLATELET COUNT 264MEAN PLATELET VOLUME 10.2NEUTROPHIL % 60.7IMMATURE GRANULOCYTE % 0.5 LYMPHOCYTE % 24.0MONOCYTE % 11.7EOSINOPHIL % 2.6BASOPHIL % 0.5NUCLEATED RBC % 0.0NEUTROPHIL # 3.72IMMATURE GRANULOCYTE # 0.030LYMPHOCYTE # 1.47 LMONOCYTE # 0.72EOSINOP HIL # 0.16BASOPHIL # 0.03NUCLEATED RBC # 0.000 COMPREH ENSIVE METABOLIC PANEL (03/08/23 06:17)SODIUM 136POTASS IUM 4.0CHLORIDE 101CARBON DIOXIDE 29ANION GAP 10.0GL UCOSE 176H HBLOOD UREA NITROGEN 19GLOMERULAR FILTRATION RAT E 54 LCREATININE 1.1BUN/CREATININE RATIO 17.3TOTAL IA OTEIN 7.8ALBUMIN 2.4 LCALCIUM 8.7BILIRUBIN TOTAL 0.2SG OT/AST 15SGPT/ALT 15ALKALINE PHOSPHATASE 93 Signed in PatientKeeper by BRITNEY WINCHESTER DO on 03/09/23 at 06:05 at 0605ATTENTION EDITS and/or ADDENDA must be ma de in Patient Keeper for this note. Edits and ammen dments created in [facility] are not visible in Patien t Keeper or the legal medical record (HPF). RPT #: [id number] OF REPORT PRProgress [id number]:35:[id number] Available for patient [id number]:06:0 7 2023-03-08 [id number]:[id number] [facility] 19:29:00 [place] [id number] PATIENT NAME: DANIELE HINKLE ADMIT D ATE: 03/06/23ACCOUNT NO: [id number] ROOM NO: TN.32 AGE: 72 REPORT TYPE: OPERA TIVE REPORT SEX: F ADMITTING PHYSICIAN:Erasmo Fay ATTENDING PHYSICIAN:Erasmo Fay MD OPERATION DATE: 03/08/2023 PREOPERATIVE DIAGNOSIS: Critical limb ischemia, left lower extremity. POSTOPERATIVE DIAGNOSIS: Critical bhardwaj b ischemia, left lower extremity. PROCEDURE PERFORMED:1. Ultrasound-guided cannulation, right common femo ral artery.2. Aortogram with pelvic angiogram.3. Lef t lower extremity angiogram.4. Third order catheter plac ement, left peroneal artery.5. Laser atherectomy of left tib ioperoneal trunk and posterior tibial arteryusing 0.9 laser followed by 2.5 mm balloon angioplasty of the posterior t ibialartery and a 3.5 mm balloon angioplasty of the tibioper martel trunk.6. Balloon angioplasty of the left peronea l artery using a 2.5 mm balloon.7. Intravascular ultrasou nd of left tibioperoneal trunk, peroneal artery,posterior t ibial artery.8. Sedation, total time 30 minutes. SURGE ON: Jose Daniel Wall DO. ANTI TANK MISSILEMAN: None. ESTIMATED BLOOD LOSS : 10 mL. HEPARIN: 3000 units of intravenous heparin. PROT AMINE: None. ANESTHESIA: Moderate sedation and local an esthetic. Please note, I personallysupervised nurse in adm inistration of moderate sedation, 1 mg of Versed and 50mcg o f fentanyl was administered. INDICATIONS FOR PROCEDURE: The patient is a pleasant female with critical limbischemia wit h ulceration of the left foot. Risks, benefits wer e discussed. Shewishes for us to proceed with tatum ogram and intervention. FINDINGS: The patient had occluded tibioperoneal trunk. There was diffusesuperficia l femoral artery and popliteal artery disease. I recanaliz ed theoccluded tibioperoneal trunk and performed a laser atherectomy with angioplasty. We performed angio plasty of the tibioperoneal artery, posterior tibial arter y and peroneal artery. The patient has runoff via the posterior tibial artery PATIENT NAME: DANIELE HINKLE and uponcompletion there was also reconstitution of the anterior tibial artery. Th iswas at the level of the ankle. DESCRIPTION OF PROCEDURE : The patient was brought to the laborer brush clearing and laid ins upine position. The groins were prepped and draped in standard surgicalfashion. A timeout was performed. Ultras ound guidance was used to gain accessinto the right c ommon femoral artery in retrograde fashion using microneedle.Image was stored. Vessel was patent. Microwire was advanced. Micropuncturesheath was placed. 6- [place] sheath was placed. Advantage guidewire wasadvan ed. RBI catheter was advanced. Aortogram with pelvic ang iogram wasobtained. Superior mesenteric artery was wide ly patent. The renal arterieswere patent. The aortoiliac se gment had diffuse calcific disease, but it waspatent. The common and external iliac arteries were also patent. Leather Toggler al iliac arteries were patent. Catheter was then directed from the right to the left common femoral artery. Left lo wer extremity angiogram demonstrated diffuse superfi cial femoral artery disease. Common femoral artery wa s patent as was the profunda femoral artery. The popliteal a rtery also had diffuse disease. The catheter was then direc sarah beth to the distal popliteal artery. Angiogram was obtained. There was occlusion of the anterior tibial artery, which w as long segment. It was opened proximally, but also appe ared atretic proximally. The tibioperoneal trunk was occluded. There was reconstitution via collaterals of the posterior tibial artery as well as the peroneal artery. I then placed a crossover sheath. An 0.014 wire was then used to gain access through the occlusion. The wire was advan sosa into the posterior tibial artery. Catheter was advanc ed through the posterior tibial artery and further angiogra m demonstrated predominanty posterior tibial arter y flow to the foot. I then performed intravascular ultraso und. This was necessary to determine sizing of the vessel as well as morphology of plaque and exact location of wire. This was performed as the angiogram did not adequately de monstrate these findings. We performed IVUS distinct from standard pullback and in each individual vessel was perfo rmed. Intravascular ultrasound of the peroneal artery demonstrated a 2 to 2.5 mm vessel. There was an ostial occlusion, which was 100%. The tibioperoneal courtney nk had a mid segment stenosis measuring 70% and there was 100% occlusion of the tibioperoneal trunk as was the posterior tibial artery at the very proximal aspect. The tibioperoneal trunk was occluded. There was a so ft plaque. It measured 3.5 mm. I then brought a 0.9 laser t o the field and performed laser atherectomy of the tibiopero selina trunk as well as the peroneal artery. We used 2.5 mm b alloon to perform balloon angioplasty of the peroneal chace ry and it was maintained for 5 minutes. A 3.5 mm balloon w as used to perform balloon angioplasty of the tibioperoneal trunk. I then performed 2.5 mm balloon angioplasty of the peroneal artery. There was significant improvement in karla w thereafter. A Mynx closure device was used to cl ose the groin cannulation site and this was successful. The patient tolerated the procedure well and was taken to re covery in stable condition. I was present and scrubbed for duration of the procedure. Sponge and needle counts were correct. Dictated By: Jose Daniel Wall DO Date Dictated: 11/2022 19:29:08Date Transcribed: 03/08/2023 23:11:47NRD /SANCeeb #: [id number] PATIENT NAME: DANIELE HINKLE ACC OUNT #: [id number] Receipt ID: [id number] Edited by Jose Daniel Wall DO On 03/12/23 9:06:53 AM Electron ically Signed by Jose Daniel Wall DO on 03/12/23 at 0907 PATIENT NAME: DANIELE HINKLE [id number]:11:00TN.[id number] ailable for patient [id number]:10:30 2023-03-07 [id number]:00:00 [facility] 21:00:00 [place] ([facility])Vascular Surg. Consultation REPORT #: [id number] REPORT STATUS: Signed DATE: 03/07/23 T EDUARDO: 2100 PATIENT: DANIELE HINKLE UNIT #: [id number] ROOM #: NC.3206 BED: 1 : 3 AGE: 72 SEX: F ATTEND: Erasmo Fay MD ADM DT: AUTHOR: Jose Daniel Wall DO ATTENTION EDITS and/or ADDENDA must be made i n Patient Keeper for this note. Edits and ammendments c reated in [employer] are not visible in Patient Keeper or the legal medical record (HPF). -- ASSESSMENT AND PLAN -- PROBLEMS : 1: Displaced fracture of distal phalanx of left gre at toe, initial encounterfor closed fractureA/P: ortho c onsulted Recommend outpt eval. 2: Type 1 diabetes mellitu s with diabetic chronic kidney diseaseA/P: Tight glycem ic control discussed 3: Peripheral arterial diseaseA/P: Art erial duplex reviewed.Plan LE angiogram tmrw. -- HISTO RY -- CONSULT REQUESTED BY:Erasmo Fay MD JACQUE SON FOR CONSULT:PAD CHIEF COMPLAINT:PAD HPI:72 yo BF wit h hx of poorly controlled DMI presented from facility wi th poorlyhealing L foot wound. Reports stubbing toe s on L foot about 2 weeks ago withscrape along top of foot w hich has not been healing. Pt reports continued pain,impa ired mobility with transfers. Normally uses a wheelch air to move about.Family is at bedside. PAST MEDICAL HISTORY :DM type 1, HTN, CAD, myocardial infarction , neuropathy, retinopathy,hyperlipidemia PAST SURGICAL HISTORY:hysterectomy, retinal surgery bilaterall y FAMILY HISTORY:no vte -SOCIAL HISTORY- -TOBACCO USE- DETAILS/COMMENTS:denies -- ALLERGIES/HOME MEDS - - ALLERGIES:codeine (Intermediate - Allergy)lisino pril (Intermediate - Allergy) HOME MEDICATIONS:Acetam inophen Tab (Tylenol Tab) 500 MG PO P6SIztgelc Chewable Tab (Aspirin Chewable Tab) 81 MG PO BEDTIMEClopidogrel Tab (P lavix Tab) 75 MG PO DAILYEzetimibe Tab (Zetia Tab) 10 MG PO DAILYFerrous Sulfate Tab (Feosol Tab) 325 MG PO BIDInsulin (Glargine) Inj (Lantus Inj) 30 UNITS SUBQ Q12HRI sosorbide Dinitrate Tab (Isordil Tab) 5 MG PO BID 9A 5PLex apro tab (escitalopram oxalate) 10 MG PO DAILYMed Rec Ord er DefMetoprolol Succinate XL Tab (Toprol XL Tab) 2 5 MG PO DAILYMetoprolol Tartrate Tab (Lopressor Tab) 12. 5 MG PO [id number] Tab (Theragran Tab) 1 TAB PO D AILYSenokot tab (sennosides) 8.6 MG PO BID -- SUBJECTIVE -- -REVIEW OF SYSTEMS- COMMENT: 12 pt ROS conducted, pertinent positives as noted above -- OBJECTIVE -- VITALS (03/08 21: 17 - 03/09 21:17):Temperature C: 37.7 (36.5 - 37.8)Temperat ure source: OralPulse Rate 79 (75 - 93)Respiratory rate: 18 (16 - 20)Blood pressure: 119/67 (119/66 - 150/89) -EXA M- GENERAL: Well developed, well nourished, in no apparent distress, thin frail female. appears older than stated age HEAD: Normocephalic, atraumatic.EYES: r eye with geochemist neeta changes, sunken; L eye with chronic changesNECK: No masses, no thyromegaly, no abnormal cervical nodes, trac hea midline.CHEST: Grossly normal appearance.LUNGS: Clear bilaterally with normal respiratory effort. HEAR T: Regular rate and rhythm, normal S1, S2, no murmurs, no r ubs, no gallops, no clicks.ABDOMEN: Soft, non-tender, no organomegaly, no masses noted.MUSCULOSKELETAL: L foot with scabbed wound to dorsum of foot approx 3.5 x 1 c m. dark, necrotic changes over 2nd and 3rd toe.EXTREMITIE S: No clubbing, no cyanosis, no edema.NEUROLOGICAL: No focal deficits, cranial nerves II-XII grossly intact, normal sensation, normal reflexes, normal coordination, normal muscle strength, normal tone.PULSES: Unable to p alpate pedal pulses.PSYCHIATRIC: Alert and oriented to time, person, place. Normal mood and affect, intact ju dgment and insight. -- DATA -- MEDICATIONS MULTIVITAMIN WIT H FOLIC ACID 1 TAB PO DAILYINSULIN LISPRO UNITS SUBQ AC HSINSULIN GLARGINE 30 UNITS SUBQ [id number] 16 GM PO DIR (PRN)VANCOMYCIN HCL with/in SODIUM CHLORIDE 100 mL BAG 500 MG IV Q12HR@0600,1800CITALOPRAM 20 MG PO DAILYME TOPROLOL TARTRATE 12.5 MG PO [id number] HCL/PF 4 MG IV Q4H PRNPIPERAC/TAZOBACTAM with/in SODIUM CHLORIDE 10 0 mL BAG 3.375 GM IV [id number] 1 TAB PO BID PRNACETA MINOPHEN 500 MG PO Q6H PRNISOSORBIDE DINITRATE 5 MG PO BI D 9A 5PFERROUS SULFATE 325 MG PO BIDASPIRIN 81 MG PO BEDTIMEVANCOMYCIN PHARMACY TO DOSE 1 EACH IV ASD IREZETIMIBE 10 MG PO DAILYclopidogreL 75 MG PO DAILYGLUCAGON 1 MG IV ASDIR (PRN) LABS GLU BED (03/09/23 19:49)GLUBED 287 H GLU BED (03/09/23 16:19)GLUBED 321 H VANCO TR (03/09 14:39)VANCOMYCIN TROUGH 14.8 GLU BED (03/09/23 1 2:05)GLUBED 217 H GLU BED (03/09/23 10:10)GLUBED 106 H GLU B ED (03/09/23 07:44)GLUBED 116 H CBC W/AUTO DIFF ( 06:46)WHITE BLOOD CELL 8.0RED BLOOD CELL 3.40 L HEMOGLOBIN 10.2L LHEMATOCRIT 30.7L LMEAN CELL VOLUME 90MEAN CELL HGB 30.0MEAN CELL HGB CONCENTRATION 33.2RED CELL DIS TRIBUTION WIDTH 14.3PLATELET COUNT 260MEAN PLATELET VOLUM E 10.6NEUTROPHIL % 72.7IMMATURE GRANULOCYTE % 0.5L YMPHOCYTE % 14.6MONOCYTE % 9.9EOSINOPHIL % 1.8BASOPHIL % 0. 5NUCLEATED RBC % 0.0NEUTROPHIL # 5.80IMMATURE GRANULOCYTE # 0.040LYMPHOCYTE # 1.16 LMONOCYTE # 0.79EOSINOPHI L # 0.14BASOPHIL # 0.04NUCLEATED RBC # 0.000 COMPREH ENSIVE METABOLIC PANEL (03/09/23 06:46)SODIUM 134L LPOT ASSIUM 3.8CHLORIDE 102CARBON DIOXIDE 26ANION GAP 9.8GLU COSE 137H HBLOOD UREA NITROGEN 15GLOMERULAR FILTRATION RAT E >=60 max estimateCREATININE 1.0BUN/CREATININE RATIO 15.0T OTAL PROTEIN 7.7ALBUMIN 2.4 LCALCIUM 8.5BILIRUBIN TOT AL 0.9SGOT/AST 23SGPT/ALT 15ALKALINE PHOSPHATASE 8 8 GLU BED (03/08/23 21:34)GLUBED 139 H Signed in PatientKe eper by Jose Daniel Wall DO on 03/09/23 at 21:23 Electronic ally Signed by Jose Daniel Wall DO on 03/09/23 at 2123ATTENTION EDITS and/or ADDENDA must be ma de in Patient Keeper for this note. Edits and ammen dments created in [employer] are not visible in Patien t Keeper or the legal medical record (HPF). [facility] #: [id number] OF [id number]:00:00TN.PK- [id number] for patient [id number]:24:10 2023-03-07 [id number]:32:00 [facility] 12:32:00 [facility])Family Med. History PhysicalREPORT #: [id number] REPORT STATUS: Signed DATE: 03/07/23 T EDUARDO: 1232 PATIENT: DANIELE HINKLE UNIT #: [id number] ROOM #: NC.3206 BED: 1 : 3 AGE: 72 SEX: F ATTEND: Erasmo Fay MD ADM DT: AUTHOR: Britney Winchester DO ATTENTION EDITS and/or ADDENDA must be made i n Patient Keeper for this note. Edits and ammendments c reated in [employer] are not visible in Patient Keeper or the legal medical record (HPF). -- HISTORY -- ADMISSION DATE:03-06 PRIMARY CARE PROVIDER:Erasmo Fay MD IEF COMPLAINT:L foot wound HPI:72 yo BF with hx of p oorly controlled DMI presented from facility with poor lyhealing L foot wound. Reports stubbing toes on L foot abou t 2 weeks ago withscrape along top of foot which has not b een healing adequately. Pt reportscontinued pain, impaired m obility with transfers. Normally uses a wheelchair tomov e about. Denies any foul smelling discharge, fever/chills , excessivebleeding or cold feet. PAST MEDICAL HIS TORY:DM type 1, HTN, CAD, myocardial infarction , neurop athy, retinopathy,hyperlipidemia PAST SURGICAL HISTORY : hysterectomy, retinal surgery bilaterally -- ALL ERGIES/HOME MEDS -- ALLERGIES:codeine (Intermediate - Allergy)lisinopril (Intermediate - Allergy) HOME MEDICATIONS:Acetaminophen Tab (Tylenol Tab) 500 MG PO C8TRiopcfk Chewable Tab (Aspirin Chewable Tab) 8 1 MG PO BEDTIMEClopidogrel Tab (Plavix Tab) 75 MG PO TATIANA LYEzetimibe Tab (Zetia Tab) 10 MG PO DAILYFerrous Sulfate Ta b (Feosol Tab) 325 MG PO BIDInsulin (Glargine) Inj (Lantus Inj) 30 UNITS SUBQ I16XSBycwozytre Dinitrate Tab (Isordi l Tab) 5 MG PO BID 9A 5PLexapro tab (escitalopram oxalate) 1 0 MG PO DAILYMed Rec Order Def Metoprolol Succinate XL T ab (Toprol XL Tab) 25 MG PO DAILYMetoprolol Tartrate Tab (L opressor Tab) 12.5 MG PO [id number] Tab (Theragran Tab) 1 TAB PO DAILYSenokot tab (sennosides) 8.6 MG PO BID - - SUBJECTIVE -- -REVIEW OF SYSTEMS- GENERAL: Negat mirtha for fever, malaise, fatigue.EYES: Legally blind. Neg ative for blurry vision. No diplopia.EARS/NOSE/THROAT: Neg ative for sore throat. No otalgia. No rhinorrhea.RESPIRATO RY: Negative for dyspnea or wheeze. No cough.CARDIOV ASCULAR: Negative for chest pain or palpitations. No extr emity swelling.GASTROINTESTINAL: Negative for abdomina l pain or nausea. No emesis. No diarrhea.GENITOURINARY: Ne gative for dysuria, frequency, or urgency. No gross hematuria.MUSCULOSKELETAL: L foot woundSKIN: L f oot woundNEUROLOGICAL: Negative for headache. No carol tigo. Denies paresthesias.PSYCHIATRIC: Negative for sp ecific complaints.ENDOCRINE: Negative for cold intolera nce, heat intolerance, polyphagia, polydipsia, polyuria, w eight change, fatigue. -- OBJECTIVE -- VITALS (03/07 0 5:50 - 03/08 05:50):Temperature C: 36.4 (36.4 - 37.8)Te mperature source: OralPulse Rate 73 (69 - 81)Respiratory r ate: 16 (16 - 18)Blood pressure: 134/84 (101/56 - 134/84) -E XAM- GENERAL: Well developed, well nourished, in no a pparent distress, thin frail female. appears older than stated ageHEAD: Normocephalic, atraumatic.EYES: PERRL, EOM intact, conjunctiva and sclera clear, without nystagmus, lids normal.NECK: No masses, no thyromegaly, no abnor mal cervical nodes, trachea midline.CHEST: Grossly normal appearance.LUNGS: Clear bilaterally with normal respiratory effort.HEART: Regular rate and rhythm, normal S1 , S2, no murmurs, no rubs, no gallops, no clicks.ABDOMEN: Soft, non-tender, no organomegaly, no masses noted.MUSCULOSKELETAL: L foot with scabbed wound to dorsum of foot approx 3.5 x 1 cm. dark, necrotic change s over 2nd and 3rd toe. TTP over toes. Foot warm with dimin ished pulses.EXTREMITIES: No clubbing, no cyanosis, no edema.NEUROLOGICAL: No focal deficits, cranial n erves II-XII grossly intact, normal sensation, normal reflexes, normal coordination, normal muscle strength, nor mal tone. PULSES: Pulses normal in all extremities.PSYCHIA TRIC: Alert and oriented to time, person, place. Normal mood and affect, intact judgment and insight. -- DATA -- LABS GLU BED (03/08/23 04:27)GLUBED 187 H GLU BED ( 00:22)GLUBED 82 GLU BED (03/07/23 21:30)GLUBED 87 GLU BED (03/07/23 17:32)GLUBED 106 H GLU BED (03/07/23 1 2:08)GLUBED 254 H -- ASSESSMENT AND PLAN -- PROBLEMS: 1: Dis placed fracture of distal phalanx of left great toe, in itial encounterfor closed fractureA/P: admit to med/landin rgortho consulted - appreciate recs - plan for no surgic al intervention at thistime 2: Cellulitis of left t oeA/P: wound care orderedcont vanc and zosynconsult wou nd care physician 3: Type 1 diabetes mellitus with diabe tic polyneuropathyA/P: cont home medssliding scale 4 : Type 1 diabetes mellitus with diabetic chronic kidney d isease 5: CAD (coronary artery disease)A/P: cont home meds 6: Peripheral arterial diseaseA/P: consult dr. paolo huynh need further eval of vesselscont home meds Signed in PatientKeeper by BRITNEY WINCHESTER DO on 03/08/23 at 05:59 at 0559ATTENTION EDITS and/or ADDENDA must be ma de in Patient Keeper for this note. Edits and ammen dments created in [facility] are not visible in Patien t Keeper or the legal medical record (HPF). [facility] #: [id number] OF REPORT HPHistory and physical [id number]:32:00NC.[id number] lable for patient [id number] 5:59:45 2023-03-07 [id number]:09:00 [facility] 11:09:00 [place] ([facility])Orthopedic Consultation REPORT #: [id number] REPORT STATUS: Signed DATE: 03/07/23 TIME: 1109 PATIENT: DANIELE HINKLE UNIT #: [id number] # : [id number] ROOM #: NC.5203 BED: 1 : 3 AGE: 72 SEX: F ATTEND: Erasmo Fay MD ADM DT: AUTHOR: Tarun Higgins ATTENTION EDITS and/or ADDENDA must be made i n Patient Keeper for this note. Edits and ammendments c reated in [employer] are not visible in Patient Keeper or the legal medical record (HPF). -- CO-SIGNATURE -- COMMENTS:review ed case with KNIF[facility]AN. agree w nonop mgmt from ortho standpoin t at this timeeschars to be eval'd by wound care; tee rodriguez their assistance in managingrec vascular consult given PVD noted on XR and US Signed in PatientKeeper by MEREDITH CHAIREZ MD on 03/07/23 at 14:41 -- ASSESSMENT AND PLAN -- PROB LEMS: 1: Displaced fracture of distal phalanx of left gre at toe, initial encounterfor closed fractureA/P: no acut e intervention per orthorec post-op shoe 21/11ok to d/c and f/up op with Dr. Chairez in 2 wks, please call [facility] appointment. thank you. 2: Cellulitis of left toeA/P: no acute intervention per orthorec local wound care and f/up op with Dr. Chairez in 2 wks -- HISTORY -- HPI:72 y/o F w/ PMH of legally blind, HTN, type II DM, diab etic peripheralneuropathy and PAD without prior vascu lar procedures admitted for further evalof L foot wo und onset 2-3 wks ago after she stubbed her L foot sustain ing alaceration over the dorsum of her L foot. Patie nt uses a wheelchair formobility. [facility]. Denies any fever, chills, sweats, chestpain or shortnes s of breath. L foot x-rays shows hallux distal phalan xfracture, orthopedics consulted for further eval. -- SUBJE CTIVE -- -REVIEW OF SYSTEMS- GENERAL: Negative for fever, malaise, fatigue.EYES: Legally blind. Negative for blurry vision. No diplopia.EARS/NOSE/THROAT: Negative for sore thr oat. No otalgia. No rhinorrhea.RESPIRATORY: Negative for dyspnea or wheeze. No cough.CARDIOVASCULAR: Negative for ch est pain or palpitations. No extremity swelling.GASTROINTEST INAL: Negative for abdominal pain or nausea. No emesis . No diarrhea.GENITOURINARY: Negative for dysuria, fr equency, or urgency. No gross hematuria.MUSCULOSKELETAL: L f oot woundSKIN: L foot woundNEUROLOGICAL: Negative f or headache. No vertigo. Denies paresthesias.PSYCHI ATRIC: Negative for specific complaints.ENDOCRINE: Nega tive for cold intolerance, heat intolerance, polyphagia, polydipsia, polyuria, weight change, fatigue. -- OBJECTIVE - - -EXAM- GENERAL: Well developed, well nourished, in no a pparent distress.HEAD: Normocephalic, atraumatic.EYES: P ERRL, EOM intact, conjunctiva and sclera clear, without ny stagmus, lids normal.NECK: No masses, no thyromegaly, no abnormal cervical nodes, trachea midline.CHEST: Grossly n ormal appearance.LUNGS: normal respiratory effortHEART : RRRABDOMEN: Soft, non-tender, no organomegaly, n o masses noted.MUSCULOSKELETAL: L FOOT: no erythema, swel ling or rash noted. PVD, scabbed laceration over dorsum foot. duskiness over dorsum of 3rd and 4th toes. ttp o carol hallux. distal pulses diminished. dusky nails.EXTREMITIE S: No clubbing, no cyanosis, no edema.NEUROLOGICAL: No focal deficits, cranial nerves II-XII grossly intact, normal sensation, normal reflexes, normal coordination, normal muscle strength, normal tone.PULSES: Pulses norm al in all extremities.PSYCHIATRIC: Alert and oriented to t eduardo, person, place. Normal mood and affect, intact j udgment and insight. Signed in PatientKeeper by Alonso Higgins on 03/07/23 at 11:18 Cosigned by ALEXANDRA CHAIREZ MD on 03/07/23 at 14:41 at 1441 at 1441ATTENTION EDITS and/or ADDENDA must be ma de in Patient Keeper for this note. Edits and ammen dments created in [facility] are not visible in Patien t Keeper or the legal medical record (HPF). RPT #: [id number] OF [id number]:09:00TN.PK- [id number] for patient [id number]:42:22 2023-03-07 [id number]:58:00 [facility] 07:58:00 [place] ([facility])Med Order Sheet REPORT #: [id number] REPORT STATUS: Signed DATE: 03/07/23 TIME: 0758 PATIENT : DANIELE HINKLE UNIT #: [id number] # : [id number] ROOM #: NC.5203 BED: 1 : AGE: 72 SEX: F ATTEND: Erasmo Fay MD ADM DT: AUTHOR: Erasmo Fay MD ATTENTION EDITS and/or ADDENDA must be made i n Patient Keeper for this note. Edits and ammendments c reated in [facility] are not visible in Patient Keeper o r the legal medical record (HPF). Admission Medication Reconciliatio n -- CONTINUED / CHANGED HOME MEDICATIONS -- Home: Ac etaminophen Tab (Tylenol Tab) 500 MG PO Q6H PRN pain (FOR PA IN)Hosp: Acetaminophen Tab (Tylenol Tab) 500 MG PO Q6H IA N pain - FOR PAIN Home: ADMELOG SOLOSTARHosp: Insulin Lis pro InJ (HumaLOG Inj) UNITS SUBQ AC HS - LOW DOSE SLI DING SCALE AC HSORAL NUTRITION LOW DOSE S/SORAL NUTRITIO N LOW DOSE S/S Home: Aspirin Chewable Tab (Aspirin Chewable Tab) 81 MG PO BEDTIMEHosp: Aspirin Chewable Tab (Aspirin Ch ewable Tab) 81 MG PO BEDTIME Home: Clopidogrel Tab (Plavix T ab) 75 MG PO DAILYHosp: Clopidogrel Tab (Plavix Tab) 75 MG PO DAILY Home: Ezetimibe Tab (Zetia Tab) 10 MG PO DAILYHo sp: Ezetimibe Tab (Zetia Tab) 10 MG PO DAILY Home: F errous Sulfate Tab (Feosol Tab) 325 MG PO BIDHosp: Ferr ous Sulfate Tab (Feosol Tab) 325 MG PO BID Home: Insulin (Gl argine) Inj (Lantus Inj) 30 UNITS SUBQ [id number]: Insulin (G largine) Inj (Lantus Inj) 30 UNITS SUBQ Q12HR Home: Isoso rbide Dinitrate Tab (Isordil Tab) 5 MG PO BID 9A 5P (H old ifSBP<110)Hosp: Isosorbide Dinitrate Tab (Isordi l Tab) 5 MG PO BID 9A 5P - Hold if SBP<110 Home: Lexapro tab (escitalopram oxalate) 10 MG PO DAILYHosp: Escit alopram Tab (NF) (Lexapro Tab (NF)) 10 MG PO DAILY Home: Met oprolol Tartrate Tab (Lopressor Tab) 12.5 MG PO Q12HR (H old ifSBP<110, HR<60)Hosp: Metoprolol Tartrate Tab ( Lopressor Tab) 12.5 MG PO Q12HR - Hold if SBP<110, HR<60 H ome: Multivitamin Tab (Theragran Tab) 1 TAB PO DAILYH osp: Multivitamin Tab (Theragran Tab) 1 TAB PO DAILY Home: Senokot tab (sennosides) 8.6 MG PO BIDHosp: Seno nick tab (sennosides) 8.6 MG PO BID PRN constipation (use 1st) -- STOPPED HOME MEDICATIONS -- Home: Metoprolol Suc cinate XL Tab (Toprol XL Tab) 25 MG PO DAILY Electronicall y Signed in PatientKeeper by Erasmo Fay on 03/077:58 at 0758ATTENTION EDITS and/or ADDENDA must be ma de in Patient Keeper for this note. Edits and ammen dments created in [facility] are not visible in Patien t Keeper or the legal medical record (HPF). [facility] #: [id number] OF REPORT CLClinical [id number]:58:[id number] Available for patient [id number]:58:2 6 2023-03-06 [id number]:22:00 [facility] 21[facility]22:00 [facility] REPORTREPORT#:[id number] REPORT STATUS: SignedDAT E:03/06/23 TIME: 2121 PATIENT: DANIELE HINKLE UNIT #: [id number]#: [id number] ROOM: BED:AGE: 72 SEX: F PCP PHYS: Erasmo Fay MDSERVICE DT: 10/21 AUTHOR: Jameel Viera MD * ALL edits or amendme nts must be made on the electronic/computer document * HPI-E xtremity Prob Lower Free Text HPI NotesFree Text HPI Nlmuw82-noqq-wlr female with hypertension, diabe susan, PAD without prior vascular procedures [facility] department with worsening redness and pain to he r left foot. Has had nonhealing ulcer ongoing reportedl y for 6 months. Patient denies any acute change but nurs ing home referred to the emergency department presumably due to worsening appearance of the foot. HPI limited by patient mental status Patient reports no additional medi abhinav, surgical, family, or social history relevant to the chief complaint other than as described above or in [facility] HPI. ROS includes areas listed below and is negative exce pt as stated in the HPI: - CONSTITUTIONAL: fever or ch ills. - HEENT: changes in vision or hearing. - RESPIRATO RY: SOB or cough. - CV: CP. - GI: abdominal pain, nausea, v omiting or diarrhea. - : dysuria. - SKIN: Denies rash. - NEUROLOGICAL: numbness tingling or weakness. - P SYCHIATRIC: hallucinations or suicidal thoughts. GeneralInit ia Gre Date/Time 03/06/231937 PresentationChief Compla int Foot problem L Past Medical History - AdultStated Com plaint LEFT FOOT WOUNDAllergiesCoded Allergies:codeine (Inte rmediate, RASH-HIVES 08/10/20)lisinopril (Intermediate, RA SH-RAISED 08/10/20) Home MedicationsActive ScriptsCephalex in (Keflex) 500 MG PO Q8HR 7 Days #21 CAPS Prov: 02/10/23Oxy butynin (Ditropan) 5 MG PO TID Oxybutynin (Ditropan) 5 M G PO TID #90 TAB Ref 2 Prov: 11/30/21Donepezil (Aricept) 5 MG PO BEDTIME Donepezil (Aricept) 5 MG PO BEDTIME #30 TAB Prov: 02/08/22Fluconazole (Diflucan) 100 MG PO DAILY F luconazole (Diflucan) 100 MG PO DAILY #5 TAB Prov: 02/08/22 Reported MedicationsMetoprolol Succ Xl (Toprol Xl) 25 MG PO DAILY Aspirin 81 MG PO BEDTIME Clopidogrel Bisulfate ( Plavix) 75 MG PO DAILY Metoprolol Tartrate (Lopressor) 12.5 MG PO Q12HR Ezetimibe (Zetia) 10 MG PO DAILY Isosorbid e Dinitrate (Isordil) 5 MG PO BID 9A 5P Midodrine (Proamatin e) 5 MG PO TID PRN sbp<100 Cholecalciferol (Vitamin D3) (Vi tamin D3) 8,000 UNIT PO QPM Donepezil (Aricept) 5 MG PO BE DTIME Insulin Lispro (Humalog) 0 UNITS SUBQ AC HS Rano lazine Er (Ranexa) 1,000 MG PO Q12HR Aspirin Ec 81 MG PO D AILY Insulin Lispro (Humalog) 0 UNITS SUBQ AC HS Insu janki Glargine (Lantus) 18 UNITS SUBQ QAM Past Medical History:Reports: Coronary artery disease, Diabet es mellitus, Hypertension. Additional Medical Histo ryDiabetes DKA OR Neuropathy Visual ImpairmentAdditional Landin rgical HistoryNoneAdditional Family HistoryNoncontribut oryAlcohol Use Alcohol use (former)Drug Use Denies recreati onal drugsSmoking status for patients 13 years old or older: Unknown,if ever smoked Physical Exam Vital Signs Vital SignsFirst Documented: Result Date Time Pulse Ox 100 03/06 1920 B/P 146/76 03/06 1920 B/P Mean 99 03/06 192 0 Temp 36.8 03/06 1920 Pulse 78 03/06 1920 Resp 20 110 1919 Last Documented: Result Date Time Pulse Ox 100 03/06 1920 B/P 146/76 03/06 1920 B/P Mean 99 03/06 1920 Temp 3 6.8 03/06 1920 Pulse 78 03/06 1920 Resp 20 03/06 1920 PHYS ICAL EXAM: - GENERAL: Alert, conversant. No acute distress. 1+ DP pulse on the left with mild erythema and warmth surrounding what appeared to be gangrenous second thirdand f ourth phalanges, no purulence in the area - HENT: Mois t mucous membranes. - LUNGS: Nonlabored breathing. No acc essory muscle use. - CARDIOVASCULAR: Regular rate and r hythm. Warm, well-perfused. - ABDOMEN: Soft, non-tender and non-distended. - NEUROLOGIC: Moving extremities spontaneously. - PSYCHIATRIC: Cooperative. Appro priate mood and affect. Review of Vital Signs Reviewed Inter pretation Diagnostics Lab Results InterpretationResultsLab oratory Tests 03/06/231939:[Embedded Image Not Available]Laboratory Tests: 03/06 19 40 Chemistry Sodium (135 - 145 mmol/L) 129 L Potass ium (3.5 - 5.1 mmol/L) 4.0 Chloride (98 - 107 mmol/L) 96 L Carbon Dioxide (21 - 32 mmol/L) 31 Anion Gap (2.0 - 16. 0) 6.0 BUN (4 - 23 mg/dL) 24 H Creatinine (0.6 - 1.5 mg/dL) 1.3 Glomerular Filtr Rate (>60 ml/min) 44 L BUN/Crea tinine Ratio (12.0 - 20.0) 18.5 Glucose (65 - 99 mg/dL) 303 H Lactic Acid (0.4 - 2.0 mmol/L) 1.6 Calcium (8.5 - 10.1 mg/dL) 8.7 Total Bilirubin (0.2 - 1.2 mg/dL) 0.2 AST (15 - 37 U/L) 15 ALT (6 - 50 U/L) 19 Total Alk Phospha tase (45 - 117 U/L) 120 H Troponin I High Sens (0 - 53 pg/m L) 8 Total Protein (6.4 - 8.2 g/dL) 8.4 H Albumin (3.4 - 5. 0 g/dL) 2.7 L Hematology WBC (4.5 - 11.0 10 3/uL) 7.8 RBC ( 3.50 - 5.50 10 6/uL) 3.43 L Hgb (12.0 - 16.0 g/dL) 10.4 L Hc t (37.0 - 55.0 %) 31.2 L MCV (81 - 102 fL) 91 MCH (26.0 - 34.0 pg) 30.3 MCHC (31.0 - 37.0 g/dL) 33.3 RDW (11.6 - 1 4.4 %) 13.9 Plt Count (150 - 400 10 3/uL) 276 MPV (9.0 - 12. 6 fL) 10.2 Neut % (Auto) (33.0 - 76.0 %) 67.9 Lymph % (Auto ) (14.0 - 56.4 %) 17.3 Lanier % (Auto) (0.0 - 12.9 %) 11.3 E os % (Auto) (0.0 - 7.0 %) 1.9 Baso % (Auto) (0 - 2.0 %) 0.6 Neut # (Auto) (1.5 - 7.0 10 3/uL) 5.29 Lymph # (Auto) ( 1.50 - 4.00 10 3/uL) 1.35 L Lanier # (Auto) (0.20 - 0.80 10 3/ uL) 0.88 H Eos # (Auto) (0.0 - 0.5 10 3/uL) 0.15 Baso # (Au to) (0.0 - 0.1 10 3/uL) 0.05 Abs Immat Gran (auto) (0.000 - 0.100 x10 3/uL) 0.080 Immature Gran % (0.0 - 1.0 %) 1.0 Nu cleated RBC % (0 - 0.2 %) 0.0 Nucleated RBCs # (0.000 - 0.01 2 10 3/uL) 0.000 Microbiology: Date/Time Procedure - Status Source Growth 03/06 1945 Blood Culture - RECD BLOOD 1944 Blood Culture - RECD BLOOD 03/06 1940 Blood Cult ure - RECD BLOOD 03/06 1940 Blood Culture - RECD BLOOD Re-E valuation MDM Free Text MDM NotesFree Text MDM Jerjs7-yae r-old female with nonhealing ulcer and mild local woun d infection in background of poorly vascularized foot and li julieta progression to gangrene. We will start antibioti cs and consult vascular surgery and podiatry, admit med icinebed The medical decision making includes independent review of any ordered imaging and EKGs and are in agreemen t with radiology interpretation unless documented other recinos. Individual labs and/or microbiologic data along with urine studies ordered and resulted at time of dictatio n have been interpreted by me and do notappear to contribute to an emergency diagnosis unless as mentioned above. O utside records including the most recent discharge summ amador, if available, have been reviewed. Consultants lee ann magdaleno hospitalists involved in the case as ordered/doc umented in the EMR agree with ED plan unless as documented above. ED CourseMedication(s) OrderedMedication(s) Ordered:Anti-Infective Agents Sig/Chris Start mary jo e Last Medication Dose Route Stop Time Status Admin Van comycin HCl 1,000 MG X1ED@03/06 AC Sodium Chloride 250 ML IV 03/07 130 Piperacillin Sod/ 3.375 GM X1ED STA 1 05/06 1952 DC 03/06 Tazobactam Sod IV 03/06 Sodi um Chloride 100 ML Vancomycin HCl 1,090.9 MG X1ED STA 03/06 1953 CAN Sodium Chloride 250 ML IV 03/06 1954 Patient Dis charge Departure Vital Signs/ConditionVital SignsFirst Documented: Result Date Time Pulse Ox 100 03/06 1920 B/P 14 6/76 03/06 1920 B/P Mean 99 03/06 1920 Temp 36.8 03/06 1920 Pulse 78 03/06 1920 Resp 20 03/06 1920 Last Documented: Result Date Time Pulse Ox 100 03/06 1920 B/P 146/76 03/06 19 20 B/P Mean 99 03/06 192 Temp 36.8 03/06 1920 Pulse 78 11/0 1919 Resp 20 03/06 1920 All vital signs available at the time of this entry have been reviewed. Clinical Impressi onClinical ImpressionPrimary Impression: Diabetic foot infe ction Disposition DecisionHospitalize Hosp Physician Erasmo Pickard ame, MD Hosp Physician Hospitalis t Request Time 2128 Request Date 03/06/23 )( Accepts Hospi talization Yes )( Accepted Time 2128 )( Accepted Date 03/06 Call Information will see patient Electronically Sign ed by Jameel Viera MD on 03/06/23 at 2130RPT #:[id number] OF REPORTEDEmergency department [id number]:22:00NC.[id number] vailable for patient [id number]:30:1 2 2023-02-10 [id number]:27:00 [facility] 20:27:00 [facility] ([facility])EMERGENCY PROVIDER REPORTREPORT#:[id number] REPORT STATUS: SignedDAT E:02/10/23 TIME: 2026 PATIENT: DANIELE HINKLE UNIT #: [id number]#: [id number] ROOM: BED:AGE: 72 SEX: F PCP PHYS: Erasmo Fay DT: 01/29 07/21 AUTHOR: Sara Almendarez MD * ALL edits or amend ments must be made on the electronic/computer document * HP I-Foot Prob/Inj Free Text HPI NotesFree Text HPI Notes7 2-year-old female with history of type 1 diabetes, blindnes s, hyperlipidemia, hypertension presents as transfe r from [facility] and rehab for evaluation of left foot injury. Patient is unclear why she was sent here. Her states they called him today and told hi m that the patient injured her foot but unclear how. Batool morales does not recall any injury or fall. She did states she fe lt like an itch on her foot had been scratching it recently . An x-ray from the facility from this afternoon shows an a cute great toe distal phalangeal base fracture. Patient den ies pain or fever. She has small superficial abrasion over d orsal aspect of foot and is unclear how long its beent here or how sustained, possibly from her scratching with not able long nails. GeneralInitial Greet Date/Time 02/10/23 2 013 PresentationChief Complaint Foot pain L, Toe tonia n LHx Obtained From Patient, Spouse, EMS, senior living Onset Occurred UnknownProgression since Onset Constant Caused by No trauma by historyLocation: Left Foot Dorsal surfaceQuality Aching Review of Systems ROS Stat ementsAll systems rev neg except as marked. Focused Review of SystemsMusculoskeletalReports: Extremity pain. S kinReports: Abrasion. Past Medical History - AdultStated Com plaint LEFT GREAT TOE FX, SENT FOR EVALAllergiesCoded Allerg ies:codeine (Intermediate, RASH-HIVES 08/10/20)lisinopril (Intermediate, RASH-RAISED 08/10/20) Home Medica tionsActive ScriptsOxybutynin (Ditropan) 5 MG PO TID Oxybuty cherri (Ditropan) 5 MG PO TID #90 TAB Ref 2 Prov: 11/30/21Donepezil (Aricept) 5 MG PO BEDTIME Done pezil (Aricept) 5 MG PO BEDTIME #30 TAB Prov: 02/08/22 Fluconazole (Diflucan) 100 MG PO DAILY Fluconazole (Diflucan ) 100 MG PO DAILY #5 TAB Prov: 02/08/22 Reported Medication sMetoprolol Succ Xl (Toprol Xl) 25 MG PO DAILY Aspirin 81 MG PO BEDTIME Clopidogrel Bisulfate (Plavix) 75 MG PO DAILY Me toprolol Tartrate (Lopressor) 12.5 MG PO Q12HR Ezetimibe (Zetia) 10 MG PO DAILY Isosorbide Dinitrate (Isordil) 5 MG PO BID 9A 5P Midodrine (Proamatine) 5 MG PO TID PRN sbp<10 0 Cholecalciferol (Vitamin D3) (Vitamin D3) 8,000 UNIT PO QPM Donepezil (Aricept) 5 MG PO BEDTIME Insulin Lisp ro (Humalog) 0 UNITS SUBQ AC HS Ranolazine Er (Lisbeth xa) 1,000 MG PO Q12HR Aspirin Ec 81 MG PO DAILY Insulin Li spro (Humalog) 0 UNITS SUBQ AC HS Insulin Glargine (L antus) 18 UNITS SUBQ QAM Past Medical History:Reports: Cor onary artery disease, Diabetes mellitus, Hypertension. Additional Medical HistoryDiabetes DKA OR Neuropathy Visual ImpairmentAdditional Surgical HistoryNoneAdditio nal Family HistoryNoncontributoryAlcohol Use Alcohol use (f ormer)Drug Use Denies recreational drugs Physical Exam Jen l SignsVital SignsFirst Documented: Result Date Ti me Pulse Ox 100 02/11 2012 B/P 118/79 02/11 2012 B/P Mean 92 02/11 2012 O2 Delivery Room air 02/11 2012 Temp 37.2 02/11 2012 Pulse 92 02/11 2012 Resp 16 02/11 2012 Last Documented : Result Date Time Pulse Ox 95 02/10 2030 B/P 125/76 01/29 B/P Mean 96 02/10 2030 Pulse 87 02/10 2030 O2 Deliv taras Room air 02/11 2012 Temp 37.2 02/11 2012 Resp 16 01/29 Review of Vital Signs Reviewed Focused PEGeneral /Const General/Const Awake, Alert, No acute distressMS Ankle/Foot Text/Dict NoteSuperficial abrasions over dors al left foot as well as distal third and fourth toe. The re is mild faint erythema and warmth. No noted swelling, ec chymosis, deformity to great toe.Skin Color/Condition Eryt daniel localized. Neurologic Neurologic Oriented X3, Sp eech NL Interpretation Diagnostics Lab Results InterpretationConsiderations Independ review imagingResultsRecent Impressions:RADIOLOGY - XR FOOT 3 + V LT 02/11 2016 Report Impression - Status: SIG RUDI Entered: 02/10/20232048 IMPRESSION:Acute trauma tic fracture 1st distal phalanx.Impression By: Carlos .DANIS - Shankar Germain MD Point of Care TestingPulse Oximetry Pulse Ox % 100 On: Room air Interpretation Inte rpreted by me, Pulse oximetry normal Time 2014 Re-Evaluatio n MDM Free Text MDM NotesFree Text MDM NotesX-ray with nond isplaced distal phalanx fracture of the left great toe. P atient does have some mild abrasions to the dorsal foot slig ht erythema perhaps some mild cellulitis. She is orthopedic follow-up next week for the toe fracture that was already diagnosed at the nursing facility. Will start Keflex for m ild cellulitis and discussed outpatient follow-up wi th return precautions given ED CourseMedication(s) OrderedMedication(s) Ordered:Anti-Infective Agen ts Sig/Chris Start time Last Medication Dose Route Stop Time Status Admin Cephalexin 500 MG X1ED STA 02/10 2102 DC 02/10 PO 02/10 Patient Discharge Departure Jen l Signs/ConditionVital SignsFirst Documented: Res ult Date Time Pulse Ox 100 02/11 2012 B/P 118/79 02/10 B/P Mean 92 02/11 2012 O2 Delivery Room air 02/11 2012 T emp 37.2 02/11 2012 Pulse 92 02/11 2012 Resp 16 02/10 20 12 Last Documented: Result Date Time Pulse Ox 95 02/10 2 030 B/P 125/76 02/10 2030 B/P Mean 96 02/10 2030 Pulse 8 7 02/10 2030 O2 Delivery Room air 02/11 2012 Temp 37.2 1 2011 Resp 16 02/11 2012 All vital signs available at the time of this entry have been reviewed. Condition Stable Clinical ImpressionClinical ImpressionPrimary Impression: Fracture of distal phalanx of left great toeSecondary Imp ressions: Cellulitis of left foot Disposition DecisionDisc harge )( Discharged to Home Yes )( Time 2111 )( Date 01/29 07/21 Discharge/Care PlanCounseled Regarding Diagnosis , Imaging studies, Prescriptions, Need for follow-up, When to return to ED(Auto) PrescriptionsCurrent Visit ScriptsCe phalexin (Keflex) 500 MG PO Q8HR 7 Days #21 CAPS Patient Instructions ED Cellulitis, ED Fracture, Toe, ClosedAdditional InstructionsFollow-up with orth opedics as scheduled next weekComplete antibiotics for susp ected mild cellulitisrETurn to ER for new or worsening symp toms at 1937RPT #:[id number] OF REPORTEDEmergenc y department [id number]:27:00NC.[id number] vailable for patient [id number]:37:5 6 2022-09-01 [id number]:26:00 [facility] 20:26:00 [facility] ([facility])EMERGENCY PROVIDER REPORTREPORT#:[id number] REPORT STATUS: SignedDAT E:09/01/22 TIME: 2025 PATIENT: LIZZIE HINKLE UNIT #: [id number]#: [id number] ROOM: BED:AGE: 72 SEX: F PCP PHYS: Erasmo Fay DT: 08/21 AUTHOR: Elisabet Waldron MD * ALL edits or am endments must be made on the electronic/computer document * HPI-General Illness Free Text HPI NotesFree Text HPI Wtikl41-akqj-yrk female with a past medical hist ory of dementia and diabetes who presents from nursing facility status post hypoglycemia. Report obtained from E MS states that patient blood sugar was elevated in the 200 s, facility gave her insulin. He noted the patient was subse quently slightly more altered than normal so they called EMS. On EMS arrival, blood sugar was 36, to give her D50 with improvement in patient mental status. At the mary jo e of arrival to the emergency room, patient blood sug ar was in the 220s and patient was at her baseline. She reeves s no other complaints at this time. GeneralInitial Greet Da te/Time 09/01/221742 PresentationChief Complaint Hypogl ycemia, Altered mental status Review of Systems ROS Stat ementsAll systems rev neg except as marked. Past Medical H istory - AdultStated Complaint LOW Bs 36 2 DOSES GLUCAGON AND R80NllndaxgkWwzhk Allergies:lisinopril (Severe, ANGIOEDEMA 02/20/22)codeine (DROWSINESS/very sleepy 2) Home MedicationsReported MedicationsAspirin 81 MG PO DAILY Clopidogrel Bisulfate (Plavix) 75 MG PO DAILY Me toprolol Succ Xl (Toprol Xl) 25 MG PO DAILY Ezetimibe (Ze tia) 10 MG PO DAILY Isosorbide Mononitrate (Monoket) 10 MG PO DAILY Cyanocobalamin (Vitamin B-12) 1,000 MCG PO DAILY [Dextrose 50% Syringe] 50 ML IV ASDIR PRN hypoglycemia pro tocol Folic Acid 3 MG PO DAILY Glucagon 1 MG IM ASDIR PRN hy poglycemia protocol Insulin Glargine (Lantus) 24 UNITS SUBQ QAM@0800 Insulin Lispro (Humalog) Pyridoxine (Vitamin B-6 ) 50 MG PO DAILY Additional Medical HistoryInsulin-dependen t diabetes mellitus CAD hypertension Hyperlipidemia Visual impairment Diabetic retinopathyAdditional Surgical HistoryN oneAlcohol Use Denies EtOH useDrug Use Denies recreational drugsSmoking status for patients 13 years old or older: Never SmokerAdditional Social HistoryLives with spouse Physical Exam Vital SignsVital SignsFirst Docume nted: Result Date Time Pulse Ox 100 09/01 1742 B/P 166 /92 09/01 1743 B/P Mean 116 09/01 174 O2 Delivery Room ai r 09/01 1742 Temp 36.6 09/01 174 Pulse 84 09/01 174 R elisha 15 09/01 1742 Last Documented: Result Date Time Pul se Ox 100 09/01 174 B/P 166/92 09/01 174 B/P Mean 116 0 09/01 1742 O2 Delivery Room air 09/01 1742 Temp 36.6 09/01 1742 Pulse 84 09/01 174 Resp 15 09/01 1742 Review of Vital Signs Reviewed, Vital signs normal Free Text PE NotesF ree Text PE NotesConstitutional: Comfortable, no acute distr essHead: Normocephalic, atraumaticEyes: PERRLA, EOMI, no dischargeENT: Moist mucous membranesRespiratory: Clear to auscultation bilaterally, no wheezing rhonchi or ralesCardiac: Regular rate and rhythm, no murmur sGI: Abdomen soft, nontender, nondistendedGU: Deferre dSkin: No erythema, no rashMSK: No tenderness to palpation Neuro: ANO x4, no motor or sensory deficits, 2Psych: No ashu tation Interpretation Diagnostics Lab Results InterpretationConsiderations Reviewed prior recordsResultsLaboratory Tests 09/01/22 180:[Em bedded Image Not Available]Laboratory Tests: 09/01 4 1802 190 Chemistry Sodium (135 - 145 mmol/L) 132 L Potass ium (3.5 - 5.1 mmol/L) 3.4 L Chloride (98 - 107 mmol/L) 103 Carbon Dioxide (21 - 32 mmol/L) 24 Anion Gap (2.0 - 16. 0) 8.4 BUN (4 - 23 mg/dL) 23 Creatinine (0.6 - 1.5 mg/dL) 1.2 Glomerular Filtr Rate (>60 ml/min) 49 L BUN/Crea tinine Ratio (12.0 - 20.0) 19.2 Glucose (65 - 99 mg/dL ) 334 H POC Glucose (70 - 105 mg/dL) 236 H Calcium (8.5 - 10 .1 mg/dL) 9.0 Troponin I High Sens (0 - 53 pg/mL) 12 Daniel tology WBC (4.5 - 11.0 10 3/uL) 7.0 RBC (3.50 - 5.50 10 6/u L) 3.46 L Hgb (12.0 - 16.0 g/dL) 10.2 L Hct (37.0 - 55.0 % ) 31.8 L MCV (81 - 102 fL) 92 MCH (26.0 - 34.0 pg) 29.5 MCHC (31.0 - 37.0 g/dL) 32.1 RDW (11.6 - 14.4 %) 14.0 Plt C ount (150 - 400 10 3/uL) 231 MPV (9.0 - 12.6 fL) 10.6 Neut % (Auto) (33.0 - 76.0 %) 74.5 Lymph % (Auto) (14.0 - 56. 4 %) 14.8 Lanier % (Auto) (0.0 - 12.9 %) 8.7 Eos % (Auto) (0 .0 - 7.0 %) 1.0 Baso % (Auto) (0 - 2.0 %) 0.6 Neut # (Auto) (1.5 - 7.0 10 3/uL) 5.23 Lymph # (Auto) (1.50 - 4.00 10 3/u L) 1.04 L Lanier # (Auto) (0.20 - 0.80 10 3/uL) 0.61 Eos # ( Auto) (0.0 - 0.5 10 3/uL) 0.07 Baso # (Auto) (0.0 - 0.1 10 3/uL) 0.04 Abs Immat Gran (auto) (0.000 - 0.100 x10 3/uL) 0 .030 Immature Gran % (0.0 - 1.0 %) 0.4 Nucleated RBC % (0 - 0.2 %) 0.0 Nucleated RBCs # (0.000 - 0.012 10 3/uL) 0.000 Lab StatementLaboratory studies reviewed and conside red in the medical decision-making. Point of Care TestingBl ood Glucose Field fingerstick blood sugar value: Low Re-Eval uation MDM Free Text MDM NotesAdditional Wrwh43-iotn-hfh fe male with a past medical history of dementia, diabetes, pres entingwith transient altered mental status presenting with hypoglycemia. Differentials considered include i ntracranial bleed although less likely as patient's symptoms started after she received insulin. Suspicion low for in fection such as pneumonia or UTI as patient has had no f ever and her ultimate disturbance was sudden and now reso lved. Differential diagnoses include includeelectrolyt e abnormality including hypoglycemia which appeare d to be the case as patient's blood sugar was found to be 36 by EMS and resolving with D50. Patienthas no complaint at t his time. Recheck of patient's labs including CBC, CMP cady ws no leukocytosis, hemoglobin is 10, electrolytes cady w sodium of 132 and potassium of 3.4. Blood glucose of 225. Patient was monitored on continuous telemetry monitoring wit hout any abnormalities. Given return to baseline and reas suring work-up, will discharge patient home back to [facility]. Independant interpretation of studies were performed by me including imaging, EKG and their findings. An external chart review was completed consistin g of prior discharges, clinic notes etc. Other diagnostic t esting and social determinants of health that affect the pa lauren's care were also part of the patient's care plan. Decision regarding hospitalization was discussed along wi th the risks, benefits, and alternative options. Patien t Discharge Departure Vital Signs/ConditionVital SignsFirst Documented: Result Date Time Pulse Ox 100 05/04 1743 B/P 166 /92 05/04 1743 B/P Mean 116 05/04 1743 O2 Delivery Room a ir 05/ 1743 Temp 36.6 05/04 1743 Pulse 84 05/04 1743 R elisha 15 05/ 1743 Last Documented: Result Date Time Pul se Ox 100 05/04 1743 B/P 166/92 05/04 1743 B/P Mean 116 05 /04 1743 O2 Delivery Room air 05/04 1743 Temp 36.6 05/04 174 3 Pulse 84 05/04 1743 Resp 15 05/04 1743 All vital signs av ailable at the time of this entry have been reviewed. Condi tion Improved Clinical ImpressionClinical ImpressionP rimary Impression: HypoglycemiaSecondary Impressions: A ltered mental status Disposition DecisionDischarge )( D ischarged to Home Yes )( Time 2032 )( Date 09/01/22 Discha rge/Care PlanPatient Instructions ED HYPOGLYCEMIA Insulin Rxn at 2229RPT #:[id number] OF REPORTEDEmerg ency department [id number]:26:[id number] vailable for patient [id number]:30:0 9 2022-09-01 [id number]:05:[id number] [facility] Claudio peterson [facility] 18:05:00 [place] [address] PATIENT NAME: LIZZIE HINKLE ADMIT DA TE: 09/01/22ACCOUNT NO: [id number] ROOM NO: MEDIC AL RECORD NO: [id number] AGE: 72 REPORT TYPE: eELECTROCARD IOGRAM SEX: F ADMITTING PHYSICIAN: ATTENDING PHYSICIAN: Order:[id number] Reason : Test Date/Time Stamp:MonSep 01 2022 18:05:34Blood Pressure : / mmH GVent. Rate : 079 BPM Atrial Rate : 079 BPM P-R Int : 094 ms QRS Dur : 088 ms QT Int : 418 ms P-R-T Axes : 069 054 081 degrees QTc Int : 480 ms Sinus rhythmShort IA interval Confi rmed by MD Celestino, [facility] ([id number]) on 09/02/2022 5:36:20 PM Referred By: Self Referred Confirmed by:Jason Tirado MD Electronically Signed by Jason Tirado MD on 0 09/02/22 at [address] [place] [address] PATIENT NAME: GALEN HINKLE .[id number] 56AVAvailab le for patient [id number]:3 6:42 2022-08-12 [id number] [facility] Claudio peterson HCANC 12:02:00 [place] [address] [facility] [address] [place] [address] PATIENT NAME: LIZZIE HINKLE ADMIT DA TE: 08/01/22ACCOUNT NO: [id number] ROOM NO: NC.230 3 AGE: 72 REPORT TYPE: 360 - QUERY RESPONSE DOCUMENT SEX: F ADMITTING PHYSICIAN:Erasmo Fay MD ATTENDING PHYSICIAN:Erasmo Fay MD Provider Query QUERY TEXT: Condition General 360MD Query related questions should be directed to: [facility] Coding Query Helpline [Based on your medical judgement and the clinica l indicators provided please clarify the significa nce of Low Sodium levels -Hyponatremia-Low Sodium levels ar e insignificant-Any other specified diagnosis-Clin ically unable to determine.] The patient's Clinical Ind icators include:LAB RESULTSSODIUM (mmol/L) 128LSODIUM (m mol/L) 137 MAR REPORTNS 1,000 mL Options provided:-- Respon d - Create new note now-- Dismiss - Not applicable / Not va lid-- Dismiss - Clinically unable to determine / Unkno wn-- Assign to another provider QUERY RESPONSE: hyponatremia Query created by: Jenny Cadet on 08/09/2022 3:09 A M QUERY TEXT: Condition Nutritional Status 360MD Query r elated questions should be directed to: [facility] Codin g Query Helpline Based on your clinical j udgment, can you provide the known or suspected condition (s) that represent(s) the clinical indicators listed belo w? The patient's Clinical Indicators include:Nutrition problem 1: DECREASED CARBOHYDRATE NEEDSNutrition etiology 1 : I7HNCpnrqupkd signs and symptoms 1: NEED FOR CHO RESTRICTED DIET. Nutrition Assessment 08/03 Vitals:Nutritio n height ft: 5Nutrition height in: 5Nutrition weight k.813Nutrition BMI calculated: 16.8BMI evaluati on: Underweight Labs:Total Protein (6.4 - 8.2 g/dL) 8.8 HAlbumin (3.4 - 5.0 g/dL) 3.5 Nutrition goal 2: Increase calorie intakeIncrease protein intakeNutrition prescription: CONTINUE ADA DIET, 3-4 CHO PER CHRISTIAN L. GLUCERNA TID. EATING WELL. Nutrition Assessment 08/03Opti ons provided:-- Mild protein-calorie/protein-energy malnutrition, Please specify supporting clinical documentation for severity (e.g. BMI, serum albu min, total lymphocyte count, CD4+, etc.) as well as support ing conditions such as disorders that affect GI func tion, wasting disorders, or metabolic conditions.-- Mo derate protein, Please specify supporting clinical docu mentation for severity (e.g. BMI, serum albumin, total lym phocyte count, CD4+, etc.) as well as supporting conditi ons such as disorders that affect GI function, wasting disor ders, or metabolic conditions.-- Severe, Please specify s upporting clinical documentation for severity (e.g. BMI, s collin albumin, total lymphocyte count, CD4+, etc.) as well as supporting conditions such as disorders that aff ect GI function, wasting disorders, or metabolic condit ions.-- Unspecified-- Marasmus-- Failure to thrive-- Russel ght Loss-- Underweight-- Other - I will add my own diagnosi s-- Dismiss - Not applicable / Not valid-- Dismiss - Clinica lly unable to determine / Unknown-- Assign to another provi abraham QUERY RESPONSE: The patient has mild protein-calorie/protein-energy malnutrition. BMI 16.8 Query created by: Jenny Cadet on 08/09/2022 3:13 A M QUERY TEXT: Clarification Conflicting Diagnosis Proced ure 360MD Query related questions should be directed to: Andrew skinner [facility] Coding Query Helpline Based on yo moise clinical judgement, please clarify the following conflict ing documentation: Type 1 diabetes mellitus with ket oacidosis without coma (H and P p. 4 08/01/22, FM PNs 08/02/22 -08/04/22, and DS p. 1) and Severe hyperglycemia without DK A (DS p. 1) [Type 1 diabetes mellitus with ketoacidosis with out coma (H and P p. 4 08/01/22, FM PNs 08/02/22-08/04/22, and DS p. 1)Severe hyperglycemia without DKA (DS p. 1)Treated with basal bolus insulin (DS p. 1)Based on conflicting documentat ion provided, please clarify if patient had Ketoacid osis (e.g. Type 1 diabetes mellitus with ketoacidosis witho ut coma, Severe hyperglycemia without DKA, Unable to dete rmine, or Other more appropriate diagnosis.)] The patient' s Clinical Indicators include:Type 1 diabetes mellitus with ketoacidosis without coma (H and P p. 4 08/01/22, FM PNs 08/02/22-08/04/22, and DS p. 1)Severe hyperglycemia without DKA (DS p. 1)Treated with basal bolus insulin (DS p. 1) Options provided:-- Respond - Create new note now-- Dism iss - Not applicable / Not valid-- Dismiss - Clinically un able to determine / Unknown-- Assign to another provider QUERY RESPONSE: severe hyperglycemia without DKA Query created by: Cyndy Vergara on 08/11/2022 5:16 AM Placido ldebetter Signed by Erasmo Fay MD on 08/12/22 at 1202 PATIENT NAME: LIZZIE HINKLE [id number] Available for patient [id number]:02:3 6 2022-08-04 [id number]:20:00 [facility] 11:20:00 [place] ([facility])Endocrinology Progress Note REPORT #: [id number] REPORT STATUS: Signed DATE: 08/04/22 T EDUARDO: 1120 PATIENT: LIZZIE HINKLE UNIT #: [id number] CCOUNT #: [id number] ROOM #: NC.2303 BED: 1 : 3 AGE: 72 SEX: F ATTEND: Erasmo Fay MD ADM DT: AUTHOR: Nini Doan MD ATTENTION EDITS and/or ADDENDA must be made i n Patient Keeper for this note. Edits and ammendments c reated in [employer] are not visible in Patient Keeper or the legal medical record (HPF). -- ASSESSMENT AND PLAN -- PROBLEMS : 1: Type 1 diabetes mellitus with hyperglycemiaA/P: UNCONTR OLLED (SRBG2C=06.8%,HYPERGLYCEMIA) TYPE I DM OVERALL IMPROVEDGLYCEMIC CONTROL (HTV=504 HS CZBXOEE=879 ). OBSERVE ON REVISED,INCREASED SQBASAL/BOLUS INSULIN. MUST HAVE A BEDTIME SNACK. SUSPECT EATING MUCH BETTER INHOSP ITAL TO ACCOUNT FOR HYPERGLYCEMIA. -- SUBJECTIVE -- FABIENNE F COMPLAINT:HYPERGLYCEMIA HPI: EVENTS NOTED: LUIS ATING DIET. ATE BEDTIME SNACK. HAVINGSUPPLEMENTS. -REVIEW OF SYSTEMS- GENERAL: Negative for feverRESPIRATORY: Negative for dyspneaCARDIOVASCULAR: Negative for palpitations.GASTROINTESTINAL: Negative for abdo gabby pain or nausea. No emesis. No diarrhea.ENDOCRINE: Neg ative for polydipsia, polyuria -- OBJECTIVE -- VITALS ( 11:20 - 08/04 11:20):Temperature C: 36.8 (36.6 - 36.9)Te mperature source: OralPulse Rate 84 (82 - 89)Respiratory r ate: 19 (17 - 19)BP: 138/87 (120/75 - 158/99) I/Os (08/03 0 7:00 - 08/04 07:00):Net 80Intake 480Output 400 -EXAM- G ENERAL: Well developed, well nourished, in no apparent d istress, THIN HEAD: Normocephalic, atraumatic.EYES: LEGAL LY BLINDNECK: trachea midline.CHEST: Grossly normal appearance.LUNGS: NORMAL CHEST WALL MOVEMENTHEAR T: NO TACHYCARDIAABDOMEN: NON-DISTENDEDNEUROLOGICAL: N ORMAL SPEECHPSYCHIATRIC: Alert and oriented to time, p erson, place. -- DATA -- MEDICATIONS PYRIDOXINE HCL 50 MG PO DAILYINSULIN GLARGINE 24 UNITS SUBQ QAM@0800ASPI RIN 81 MG PO DAILYGLUCAGON 1 MG IM ASDIR (PRN)EZETIMIBE 10 MG PO DAILYINSULIN LISPRO UNITS SUBQ AC HSCYANOCOBALAM IN 1000 MCG PO DAILYMETOPROLOL SUCCINATE 25 MG PO DAILYclopi dogreL 75 MG PO DAILYFOLIC ACID 3 MG PO DAILYISOSORBIDE MO NONITRATE 10 MG PO DAILYDEXTROSE 50%-WATER 50 ML IV ASDIR (PRN) LABS GLU BED (08/04/22 07:36)GLUBED 337 H GLU BED ( 20:49)GLUBED 360 H GLU BED (08/03/22 17:27)GLUBE D 459 *H -- ATTESTATION -- TIME SPENT ON PATIENT CARE: - Direct 30 minutes CARE ACTIVITIES / CARE COORDINATION: - I have reviewed the history and repeated the ingram elemen ts - I have seen and examined this patient - I have reviewed the progress in the clinical course since the lastex amination - I have discussed the patient's condition with ot her members of the care team ADDITIONAL DETAIL:I HAVE SPENT >30 MINUTES IN THE EVALUATION AND TREATMENT OF THIS PATIENT. Signed in PatientKeeper by Nini Doan MD on 10/21 at 11:22 at 1122ATTENTION EDITS and/or ADDENDA must be ma de in Patient Keeper for this note. Edits and amme ndments created in [facility] are not visible in Patien t Keeper or the legal medical record (HPF). [facility] #: [id number] OF REPORT PRProgress [id number]:20:[id number] Available for patient [id number]:23:1 1 2022-08-04 [id number]:31:00 [facility] 10:31:00 [facility] ([facility] Med. Discharge Summary REPO RT #: [id number] REPORT STATUS: Signed DATE: 08/04/22 TIME: 1031 PATIENT: LIZZIE HINKLE UNIT #: [id number] CCOUNT #: [id number] ROOM #: [facility]2303 BED: 1 : 3 AGE: 72 SEX: F ATTEND: Erasmo Fay MD ADM DT: AUTHOR: Erasmo Fay MD ATTENTION EDITS and/or ADDENDA must be made i n Patient Keeper for this note. Edits and ammendments c reated in [facility] are not visible in Patient Keeper or the legal medical record (HPF). -- PROBLEMS/PROCEDURES -- ADMISSIO N DATE:08/01/22 ADMITTING DIAGNOSES: - CAD (schmid ry artery disease) - Dementia - Hypertension - Peripheral arterial disease - Type 1 diabetes mellitus with hypergly cemia - Type 1 diabetes mellitus with ketoacidosis witho ut coma - Visual impairment DISCHARGE DATE:08/04/22 DISCHA RGE DIAGNOSES: - CAD (coronary artery disease) - Dem entia - Hypertension - Peripheral arterial disease - Typ e 1 diabetes mellitus with hyperglycemia - Type 1 di abetes mellitus with ketoacidosis without coma - Visual impairment -- HOSPITAL COURSE -- HOSPITAL COURSE:Patient wi th a hx of dementia and poorly controlled DM has become increasinglydifficult to care for at home. SHe w as brought to the the ED and found to havesevere hyperglyce harmeet without DKA. Endocrine was consulted and she was treated with basal bolus insulin , case management was consulted an d arrangements weremade to transfer her to SNF wit h ultimate plan of moving her to memory care. -- DISCHARGE MEDICATIONS -- ALLERGIES:codeine (Unknown - Allergy)lisinopr il (Severe - Allergy) DISCHARGE MEDICATIONS:Please refer to Discharge Medication list for a complete list of discharge medicationsAspirin Chewable Tab (Aspirin Chewabl e Tab) 81 MG PO DAILYClopidogrel Tab (Plavix Tab) 75 MG P O DAILYCyanocobalamin Tab (Vitamin B-12 Tab) 1000 MCG PO DAILYDextrose 50% Syringe 50 ML IV ASDIR PRN hyp oglycemia protocol (Dextrose 50% Syringe (D50W Syringe))Ez etimibe Tab (Zetia Tab) 10 MG PO DAILYFolic Acid Tab (Folvit e Tab) 3 MG PO DAILYGlucagon Inj (Glucagon Inj) 1 MG IM ASDI R PRN hypoglycemia protocol Insulin (Glargine) Inj (La ntus Inj) 24 UNITS SUBQ QAM@0800Insulin Lispro InJ (HumaLO G Inj) SUBQ AC HS (UNITS)isosorbide mononitrate tablet 10 MG PO DAILYMetoprolol Succinate XL Tab (Toprol XL Tab) 25 MG PO DAILYpyridoxine (vitamin B6) tablet 50 MG PO TATIANA LY -- DISCHARGE INSTRUCTIONS -- PK DISCHARGE ORDERS:DC Order - No eCQM 2019. Details: Details:Order number: [id number]: PKDC - PK Discharge OrdersOrd er status: Transmitted Details:Discharge Parameters: SNF be d readyDischarge order with parameter: YesDischarg e to: Senior Living FacilityDiet: DiabeticActivity: As ToleratedPCP follow up timeframe: In 3-4 weeksAd ditional Discharge Routines: PCP Follow-Up Ordered by: Erasmo Fay MD Aug 04, 2022 10:24amEntere d by: Erasmo Fay MD Service date: Aug 04, 2022 10:23am Discharge Dany w/Instruction:PKD - PK Discharg e Orders In 3-4 weeks; Yes;PCP Follow-Up ADDTIONAL DISCHARGE INSTRUCTIONS:Emergency Instructions: The patient was instructed to present to the [facility] part[facility] or call 911 should their symptoms return or worsen. ; -- OBJECTIVE -- VITALS (08/03 10:31 - 08/04 10:31): Temperature C: 36.8 (36.6 - 36.9)Temperature source: OralPul se Rate 84 (82 - 89)Respiratory rate: 19 (17 - 19)BP: 138/8 7 (120/75 - 158/99) I/Os (08/03 07:00 - 08/04 07:00):Net 80I ntake 480Output 400 -- DATA -- LABS GLU BED (08/04/22 07:36)GLUBED 337 H GLU BED (08/03/22 20:49)GLUBE D 360 H GLU BED (08/03/22 17:27)GLUBED 459 *H GLU BED (08/03 10:54)GLUBED 427 *H Signed in PatientKeeper by Erasmo Gonzalez MD on 08/08/22 at 10:57 at 1057ATTENTION EDITS and/or ADDENDA must be ma de in Patient Keeper for this note. Edits and amme ndments created in [facility] are not visible in [facility] t [facility] or the legal medical record (HPF). [facility] #: [id number] OF REPORT DSDischarge [id number]:31:[id number] e for patient [id number]:58 :30 2022-08-04 [id number]:23:00 [facility] 10:23:00 [place] ([facility])Med Order Sheet REPORT #: [id number] REPORT STATUS: Signed DATE: 08/04/22 TIME: 1023 PATIENT : LIZZIE HINKLE UNIT #: [id number] #: [id number] ROOM #: [place] [address] BED: 1 : 3 AGE: 72 SEX: F ATTEND: Erasmo Fay MD ADM DT: AUTHOR: Erasmo Fay MD ATTENTION EDITS and/or ADDENDA must be made i n Patient Keeper for this note. Edits and ammendments c reated in [facility] are not visible in Patient Keeper or the legal medical record (HPF). Discharge Medication Reconciliatio n DISCHARGE MEDICATION LISTAspirin Chewable Tab (Aspirin Ashley wable Tab) Dose: 81 MG PO DAILYClopidogrel Tab (Plavix Tab) Dose: 75 MG PO DAILYCyanocobalamin Tab (Vitamin B-12 Tab) Dose: 1000MCG PO DAILYNew: Dextrose 50% Syringe (D50W Syringe) Dose: 50ML IV ASDIR PRN hypoglycemia protocolEze timibe Tab (Zetia Tab) Dose: 10 MG PO DAILYFolic Acid Tab ( Folvite Tab) Dose: 3MG PO DAILYGlucagon Inj (Glucagon In j) Dose: 1MG IM ASDIR PRN hypoglycemia protocolInsulin (G largine) Inj (Lantus Inj) Dose: 24UNITS SUBQ QAM@0800Insu janki Lispro InJ (HumaLOG Inj) Dose: UNITS SUBQ AC HSisosorbi de mononitrate tablet Dose: 10 MG PO DAILYMetoprolo l Succinate XL Tab (Toprol XL Tab) Dose: 25 MG PO DAILYpyrid oxine (vitamin B6) tablet Dose: 50MG PO DAILY STOPPED HOME MEDICATIONSDc'd: Folbee 2.5 mg-25 mg-1 mg tablet (folic acid-vit B6-vit B12) 1 TAB PODAILYElectronically Signed in PatientKeeper by Erasmo Fay on 10:23 at 1023ATTENTION EDITS and/or ADDENDA must be ma de in Patient Keeper for this note. Edits and ammen dments created in [facility] are not visible in Patien t Keeper or the legal medical record (HPF). [facility] #: [id number] OF REPORT CLClinical [id number]:23:[id number] Available for patient [id number]:24:0 5 2022-08-04 [id number]:21:00 [facility] 10:21:00 [place] ([facility])Family Medicine Progress Note REPO RT #: [id number] REPORT STATUS: Signed DATE: 08/04/22 T EDUARDO: 1021 PATIENT: LIZZIE HINKLE UNIT #: [id number] CCOUNT #: [id number] ROOM #: [facility] BED: 1 : 3 AGE: 72 SEX: F ATTEND: Erasmo Fay MD ADM DT: 0 08/01/22 AUTHOR: Erasmo Fay MD ATTENTION EDITS and/or ADDENDA must be made i n Patient Keeper for this note. Edits and ammendments c reated in [facility] are not visible in Patient Keeper or the legal medical record (HPF). -- ASSESSMENT AND PLAN -- PROBLEMS : 1: Type 1 diabetes mellitus with ketoacidosis without coma A/P: insulin sliding scale,consult endocrinelikely du e to missing insulin dosesimproved but still hypergly cemic stable for DC when SNF arranged 2: Hypertension 3: CAD (coronary artery disease) 4: Visual impairment 5 : Peripheral arterial disease 6: DementiaA/P: case man consultmemory care placementSNF short term -- LANDIN BJECTIVE -- HPI:feeling OK, want s to go home , no new issue s, awaiting placement at SNF , -REVIEW OF SYSTEMS- GENERAL: Negative for fever, chills, unexplained weight loss, and fatigueRESPIRATORY: Negative for shortness of br eath, cough, chest congestion, wheezing, hemoptysis, and pleuritic painCARDIOVASCULAR: Negative for chest pain, palpitations, dyspnea on exertion, orthopnea, ed venancio and dizzinessGASTROINTESTINAL: Negative for abdomina l pain, vomiting, diarrhea, constipation, and anorexiaGENITOURINARY: Negative for dysuria, mulugeta quency, or urgency. No gross hematuria. -- OBJECTIVE -- CHRISTIANO ARBOLEDA (08/03 10:21 - 08/04 10:21):Temperature C: 36.8 (36.6 - 36.9)Temperature source: OralPulse Rate 84 (82 - 89)Respiratory rate: 19 (17 - 19)BP: 138/87 (120 /75 - 158/99) I/Os (08/03 07:00 - 08/04 07:00):Net 80I ntake 480Output 400 -EXAM- GENERAL: Well developed, we ll nourished, in no apparent distress.NECK: No mass es, no thyromegaly, no abnormal cervical nodes, trachea midline.LUNGS: Respirations unlabored, clear to auscultation bilaterally, no wheezing, no ronchi , no ralesHEART: Regular rate and rhythm, normal S1, S2, no murmurs, no rubs, no gallops, no clicks.ABDOMEN : + BS soft, flat, nontender, the liver and spleen are not palpable, no palpable masses,EXTREMITIES: No clu bbing, cyanosis or edemaSKIN: No pallor, no jaundice, n o rash, normal turgorLYMPH NODES: None palpable cervical , axillary, supraclavicular or inguinal locationsPSYCHIATRIC : Mood euthymic. Affect congruent, normal speech. -- DA TA -- MEDICATIONS PYRIDOXINE HCL 50 MG PO DAILYINSULIN GLARGINE 24 UNITS SUBQ QAM@0800ASPIRIN 81 MG PO DAILYGLUC AGON 1 MG IM ASDIR (PRN)EZETIMIBE 10 MG PO DAILYINSULIN LI SPRO UNITS SUBQ AC HSCYANOCOBALAMIN 1000 MCG PO DAILYMETOPR OLOL SUCCINATE 25 MG PO DAILYclopidogreL 75 MG PO TATIANA LYFOLIC ACID 3 MG PO DAILYISOSORBIDE MONONITRATE 10 MG P O DAILYDEXTROSE 50%-WATER 50 ML IV ASDIR (PRN) LAB S GLU BED (08/04/22 07:36)GLUBED 337 H GLU BED (08/03/22 2 0:49)GLUBED 360 H GLU BED (08/03/22 17:27)GLUBED 459 *H GLU BED (08/03/22 10:54)GLUBED 427 *H Signed in PatientK [facility] by Erasmo Fay MD on 08/04/22 at 10:22 Joselyn ctronically Signed by Erasmo Fay MD on 08/04/22 at 1022ATTENTION EDITS and/or ADDENDA must be ma de in Patient Keeper for this note. Edits and ammen dments created in [facility] are not visible in Patien t Keeper or the legal medical record (HPF). RPT #: [id number] OF REPORT PRProgress [id number]:21:[id number] Available for patient [id number]:22:4 5 2022-08-03 [id number]:27:00 [facility] 13:27:00 [place] ([facility])Family Medicine Progress Note REPO RT #: [id number] REPORT STATUS: Signed DATE: 08/03/22 T EDUARDO: 1327 PATIENT: LIZZIE HINKLE UNIT #: [id number] CCOUNT #: [id number] ROOM #: [place].2303 BED: 1 : AGE: 72 SEX: F ATTEND: Erasmo Fay MD ADM DT: AUTHOR: Erasmo Fay MD ATTENTION EDITS and/or ADDENDA must be made i n Patient Keeper for this note. Edits and ammendments c reated in [facility] are not visible in Patient Keeper o r the legal medical record (HPF). -- ASSESSMENT AND PLAN -- PROBLEMS : 1: Type 1 diabetes mellitus with ketoacidosis without coma A/P: insulin sliding scale,consult endocrinelikely du e to missing insulin dosesimproved 2: Hypertension 3: CAD (coronary artery disease) 4: Visual impairment 5 : Peripheral arterial disease 6: DementiaA/P: case man consultmemory care placementSNF short term -- LANDIN BJECTIVE -- HPI:feeling better, daughter at [facility], wants to go home, -REVIEW OF SYSTEMS- GENERAL: Negative for fever, chills, unexplained weight loss, and fatigueRESPIRATORY: Negative for shortness of breath, cough, chest congestion , wheezing, hemoptysis, and pleuritic painCARDIOVASCULAR: Ne gative for chest pain, palpitations, dyspnea on exertion, o rthopnea, edema and dizzinessGASTROINTESTINAL: Negative fo r abdominal pain, vomiting, diarrhea, constipation, and anorexiaGENITOURINARY: Negative for dysuria, mulugeta quency, or urgency. No gross hematuria. -- OBJECTIVE -- VIT ALS (08/02 13:27 - 08/03 13:27):Temperature C: 36.9 (36.6 - 37.3)Temperature source: OralPulse Rate 85 (78 - 88)Respiratory rate: 18 (16 - 18)BP: 153/91 (92/ 44 - 153/91) I/Os (08/02 07:00 - 08/03 07:00):Net 960 Intake 960 -EXAM- GENERAL: Well developed, well nourished, in no apparent distress.NECK: No masses, no thyromegal y, no abnormal cervical nodes, trachea midline.LUNGS: Respirations unlabored, clear to auscultation bi laterally, no wheezing, no ronchi, no ralesHEART: Regular r ate and rhythm, normal S1, S2, no murmurs, no rubs, no gallops, no clicks.ABDOMEN: + BS soft, flat, nontender, the liver and spleen are not palpable, no palpable masses,EXTR EMITIES: No clubbing, cyanosis or edemaSKIN: No pallor, no j aundice, no rash, normal turgorLYMPH NODES: None palpable ce rvical, axillary, supraclavicular or inguinal locationsP SYCHIATRIC: Mood euthymic. Affect congruent, normal speech. -- DATA -- MEDICATIONS PYRIDOXINE HCL 50 MG PO DAILYASPIRIN 81 MG PO DAILYGLUCAGON 1 MG IM ASDIR (PRN)EZETIMIBE 10 MG PO DAILYINSULIN LISPRO UNITS SUBQ AC HSCYANOCOBALAM IN 1000 MCG PO DAILYINSULIN GLARGINE 20 UNITS SUBQ QAM@0800M ETOPROLOL SUCCINATE 25 MG PO DAILYclopidogreL 75 MG PO TATIANA LYFOLIC ACID 3 MG PO DAILYISOSORBIDE MONONITRATE 10 MG P O DAILYDEXTROSE 50%-WATER 50 ML IV ASDIR (PRN) LAB S GLU BED (08/03/22 10:54)GLUBED 427 *H GLU BED (08/03/22 08:18)GLUBED 261 H GLU BED (08/02/22 19:21)GLUB ED 234 H GLU BED (08/02/22 14:32)GLUBED 351 H Signed in PatientKeeper by Erasmo Fay MD on 09/20 at 13:28 at 1328ATTENTION EDITS and/or ADDENDA must be ma rox in Patient Keeper for this note. Edits and ammen dments created in [facility] are not visible in Patien t Keeper or the legal medical record ([facility]). RPT #: [id number] OF REPORT PRProgress [id number]:27:[id number] Available for patient [id number]:29:0 8 2022-08-03 [id number]:47:00 [facility] 10:47:00 [place] ([facility])Endocrinology Progress Note REPORT #: [id number] REPORT STATUS: Signed DATE: 08/03/22 T EDUARDO: 1047 PATIENT: LIZZIE HINKLE UNIT #: [id number] CCOUNT #: [id number] ROOM #: [place].2303 BED: 1 : 3 AGE: 72 SEX: F ATTEND: Erasmo Fay MD ADM DT: AUTHOR: Nini Doan MD ATTENTION EDITS and/or ADDENDA must be made i n Patient Keeper for this note. Edits and ammendments c reated in [facility] are not visible in Patient Keeper o r the legal medical record ([facility]). -- ASSESSMENT AND PLAN -- PROBLEMS : 1: Type 1 diabetes mellitus with hyperglycemiaA/P: UNCONTR OLLED (SBHR7S=25.8%,HYPERGLYCEMIA) TYPE I DM OVERALL IMPROVINGGLYCEMIC CONTROL (VTV=237 HS GLUCOSE=23 4). OBSERVE ON REVISED,INCREASED SQBASAL/BOLUS INSULIN. MUST HAVE A BEDTIME SNACK. -- SUBJECTIVE -- CHIEF COMPLAINT:HYPERGLYCEMIA HPI: EVENTS NOTED: LUIS ATING DIET. ATE BEDTIME SNACK. -REVIEW OF SYSTEMS- GENERAL: Negative for feverRESPIRATORY: Negative for dyspneaCARDIO VASCULAR: Negative for palpitations.GASTROINTESTINAL: Nega tive for abdominal pain or nausea. No emesis. No diarrhea .ENDOCRINE: Negative for polydipsia, polyuria -- OBJECTIVE - - VITALS (08/02 10:47 - 08/03 10:47):Temperature C: 36.6 (36.6 - 37.3)Temperature source: OralPulse Rate 81 (75 - 88)Respiratory rate: 17 (16 - 18)BP: 121/83 (92/ 44 - 124/83) I/Os (08/02 07:00 - 08/03 07:00):Net 960 Intake 960 -EXAM- GENERAL: Well developed, well nourished, in no apparent distress, THINHEAD: Normocephalic, atraumatic.EYES: LEGALLY BLINDNECK: trachea midl ine. CHEST: Grossly normal appearance.LUNGS: NORMAL CHEST WA LL MOVEMENTHEART: NO TACHYCARDIAABDOMEN: NON-DISTENDEDNEUROLOGICAL: NORMAL SPEECHPSYCHIAT ALPESH: Alert and oriented to time, person, place. -- DATA -- MEDICATIONS PYRIDOXINE HCL 50 MG PO DAILYASPIRIN 81 MG PO DA ILYGLUCAGON 1 MG IM ASDIR (PRN)EZETIMIBE 10 MG PO DAILYINSUL IN LISPRO UNITS SUBQ AC HSCYANOCOBALAMIN 1000 MCG PO DAILY INSULIN GLARGINE 20 UNITS SUBQ QAM@0800METOPROLOL SUCCIN ATE 25 MG PO DAILYclopidogreL 75 MG PO DAILYFOLIC ACID 3 M G PO DAILYISOSORBIDE MONONITRATE 10 MG PO DAILYDEXTRO SE 50%-WATER 50 ML IV ASDIR (PRN) LABS GLU BED (09/20 08:18)GLUBED 261 H GLU BED (08/02/22 19:21)GLUBE D 234 H GLU BED (08/02/22 14:32)GLUBED 351 H GLU BED ( 10:55)GLUBED 364 H -- ATTESTATION -- TIME SPENT ON PATIENT CARE: - Direct 30 minutes CARE ACTIVITIES / CARE COORDINATION: - I have reviewed the history and repeated the ingram elements - I have seen and examined this patient - I have reviewed the progress in the clinical cou rse since the lastexamination - I have discussed the blayne faria's condition with other members of the care team AD DITIONAL DETAIL:I HAVE SPENT >30 MINUTES IN THE EVALUATIO N AND TREATMENT OF THIS PATIENT. Signed in PatientKeep er by Nini Doan MD on 08/03/22 at 10:50 at 1050ATTENTION EDITS and/or ADDENDA must be ma de in Patient Keeper for this note. Edits and ammen dments created in [facility] are not visible in Patien t Keeper or the legal medical record (HPF). [facility] #: [id number] OF REPORT PRProgress [id number]:47:[id number] Available for patient [id number]:50:5 8 2022-08-02 [id number]:00:00 [facility] 13:00:00 [place] ([facility])Family Medicine Progress Note REPO RT #: [id number] REPORT STATUS: Signed DATE: 08/02/22 T EDUARDO: 1300 PATIENT: LIZZIE HINKLE UNIT #: [id number] CCOUNT #: [id number] ROOM #: [place] [address] BED: 1 : 3 AGE: 72 SEX: F ATTEND: Erasmo Fay MD ADM DT: AUTHOR: Erasmo Fay MD ATTENTION EDITS and/or ADDENDA must be made i n Patient Keeper for this note. Edits and ammendments c reated in [facility] are not visible in Patient Keeper or the legal medical record (HPF). -- ASSESSMENT AND PLAN -- PROBLEMS : 1: Type 1 diabetes mellitus with ketoacidosis without coma A/P: insulin sliding scale,consult endocrinelikely du e to missing insulin dosesimproved 2: Hypertension 3: CAD (coronary artery disease) 4: Visual impairment 5 : Peripheral arterial disease 6: DementiaA/P: case man consultmemory care placementSNF short term -- LANDIN BJECTIVE -- HPI:feeling better, no new complaintes,, oliver morales bedside -REVIEW OF SYSTEMS- GENERAL: Negative fo r fever, chills, unexplained weight loss, and fatigueRESP IRATORY: Negative for shortness of breath, cough, chest c ongestion, wheezing, hemoptysis, and pleuritic painCARDIOVA SCULAR: Negative for chest pain, palpitations, dyspnea o n exertion, orthopnea, edema and dizzinessGASTROINTESTINAL: Negative for abdominal pain, vomiting, diarrhea, constipa tion, and anorexiaGENITOURINARY: Negative for dysuria, mulugeta quency, or urgency. No gross hematuria. -- OBJECTIVE -- VIT ALS (08/01 22:25 - 08/02 22:25):Temperature C: 37.3 (36.5 - 37.3)Temperature source: OralPulse Rate 80 (73 - 88)Respiratory rate: 18 (16 - 18)BP: 111/71 (92/ 44 - 163/101) -EXAM- GENERAL: Well developed, well no urished, in no apparent distress.NECK: No masses, no thyrome ciara, no abnormal cervical nodes, trachea midline.LUNGS: Respirations unlabored, clear to auscultation bi laterally, no wheezing, no ronchi, no ralesHEART: Regular r ate and rhythm, normal S1, S2, no murmurs, no rubs, no g allops, no clicks.ABDOMEN: + BS soft, flat, nontender, the liver and spleen are not palpable, no palpable masses,EXTR EMITIES: No clubbing, cyanosis or edemaSKIN: No pallor, no j aundice, no rash, normal turgorLYMPH NODES: None palpable ce rvical, axillary, supraclavicular or inguinal locationsP SYCHIATRIC: Mood euthymic. Affect congruent, normal speech. -- DATA -- MEDICATIONS METOPROLOL SUCCINATE 25 MG PO DAILYP YRIDOXINE HCL 50 MG PO DAILYclopidogreL 75 MG PO DAILYFOLI C ACID 3 MG PO DAILYISOSORBIDE MONONITRATE 10 MG PO DAILYASP IRIN 81 MG PO DAILYGLUCAGON 1 MG IM ASDIR (PRN)EZETIMIBE 10 MG PO DAILYCYANOCOBALAMIN 1000 MCG PO DAILYDEXTROSE 50 %-WATER 50 ML IV ASDIR (PRN)INSULIN LISPRO UNITS SUBQ AC HS INSULIN GLARGINE 20 UNITS SUBQ QAM@0800 LABS GLU BED ( 19:21)GLUBED 234 H GLU BED (08/02/22 14:32)GLUBE D 351 H GLU BED (08/02/22 10:55)GLUBED 364 H GLU BED ( 09:08)GLUBED 158 H BASIC METABOLIC PANEL ( 05:24) SODIUM 137POTASSIUM 3.8CHLORIDE 103CARBON DIOXID E 28ANION GAP 9.8 DGLUCOSE 146H HBLOOD UREA NITROGEN 33H HGLOMERULAR FILTRATION RATE >=60 max estimateCREATININE 0.9BUN/CREATININE RATIO 36.7 HCALCIUM 8.9 CBC W/ AUTO DIFF (08/02/22 05:24)WHITE BLOOD CELL 4.0L LRED BLOOD CELL 3.08 LHEMOGLOBIN 9.1L LHEMATOCRIT 28.3L LMEAN CELL VO LUME 92MEAN CELL HGB 29.5MEAN CELL HGB CONCENTRATION 32.2RED CELL DISTRIBUTION WIDTH 13.6PLATELET COUNT 247MEAN PL ATELET VOLUME 11.2NEUTROPHIL % 46.0IMMATURE GRANULOCYT E % 0.5LYMPHOCYTE % 36.4MONOCYTE % 11.4EOSINOPHIL % 4.5BASOPHIL % 1.2NUCLEATED RBC % 0.0NEUTROPHIL # 1.86IMMATUR E GRANULOCYTE # 0.020LYMPHOCYTE # 1.47 LMONOCYTE # 0.46EOSINOPHIL # 0.18BASOPHIL # 0.05NUCLEATED RB C # 0.000 Signed in PatientKeeper by Erasmo Fay MD on 08/02/22 at 22:26 at 2226ATTENTION EDITS and/or ADDENDA must be ma de in Patient Keeper for this note. Edits and ammen dments created in [employer] are not visible in Patien t Keeper or the legal medical record (HPF). RPT #: [id number] OF REPORT PRProgress [id number]:00:[id number] Available for patient [id number]:27:1 9 2022-08-02 [id number]:24:00 [facility] 10:24:00 [facility] ([facility])Endocrinology Progress Note REPORT #: [id number] REPORT STATUS: Signed DATE: 08/02/22 T EDUARDO: 1024 PATIENT: LIZZIE HINKLE UNIT #: [id number] CCOUNT #: [id number] ROOM #: [place].2303 BED: 1 : 3 AGE: 72 SEX: F ATTEND: Erasmo Fay MD ADM DT: AUTHOR: Nini Doan MD ATTENTION EDITS and/or ADDENDA must be made i n Patient Keeper for this note. Edits and ammendments c re[facility] in [facility] are not visible in Patient Keeper or the legal medical record (HPF). -- ASSESSMENT AND PLAN -- PROBLEMS : 1: Type 1 diabetes mellitus with hyperglycemiaA/P: UNCONTR OLLED (WLZP2D=54.8%,HYPERGLYCEMIA) TYPE I DM IMPROVED GLYCEMICCONTROL (LIG=278 HS RMMQVFF=318). OBSERV E ON SQ BASAL/BOLUS INSULIN. MUST HAVEA BEDTIME SNACK. - - SUBJECTIVE -- CHIEF COMPLAINT:HYPERGLYCEMIA HPI: EVENTS NOTED: TOLERATING DIET. -REVIEW OF SYSTEMS- GENE RAL: Negative for feverRESPIRATORY: Negative for dyspneaCARDIOVASCULAR: Negative for palpitations.GASTROINTESTINAL: Negative for abdo gabby pain or nausea. No emesis. No diarrhea.ENDOCRINE: Neg ative for polyphagia, polydipsia, polyuria -- OBJECTIVE -- VITALS (08/01 10:24 - 08/02 10:24):Temperature F: 97.9T emperature C: 36.5 (36.5 - 37.0)Temperature source: OralPul se Rate 73 (73 - 99)Respiratory rate: 17 (16 - 20)BP: 163/1 01 (128/77 - 166/101) -EXAM- GENERAL: Well developed, well nourished, in no apparent distress, THINHEAD: Normocephalic , atraumatic.EYES: LEGALLY BLINDNECK: trachea midl ine.CHEST: Grossly normal appearance.LUNGS: NORMAL CHEST WA LL MOVEMENTHEART: NO TACHYCARDIA ABDOMEN: NON-DISTENDEDNEUROLOGICAL: NORMAL SPEECHPSYCHIAT ALPESH: Alert and oriented to time, person, place. -- DATA -- MEDICATIONS PYRIDOXINE HCL 50 MG PO DAILYASPIRIN 81 MG PO DA ILYGLUCAGON 1 MG IM ASDIR (PRN)EZETIMIBE 10 MG PO DAILYCYANO COBALAMIN 1000 MCG PO DAILYINSULIN GLARGINE 20 UNITS SUBQ QAM@0800METOPROLOL SUCCINATE 25 MG PO DAILYclopi dogreL 75 MG PO DAILYFOLIC ACID 3 MG PO DAILYISOSORBIDE MO NONITRATE 10 MG PO DAILYDEXTROSE 50%-WATER 50 ML IV ASDIR (PRN)INSULIN LISPRO UNITS SUBQ AC HS LABS GLU BE D (08/02/22 09:08)GLUBED 158 H BASIC METABOLIC PANEL ( 05:24)SODIUM 137POTASSIUM 3.8CHLORIDE 103CARBON DIOXIDE 28ANION GAP 9.8 DGLUCOSE 146H HBLOOD UREA NITRO GEN 33H HGLOMERULAR FILTRATION RATE >=60 max estimateCRE ATININE 0.9BUN/CREATININE RATIO 36.7 HCALCIUM 8.9 CBC W /AUTO DIFF (08/02/22 05:24)WHITE BLOOD CELL 4.0L LRED BLOOD CELL 3.08 LHEMOGLOBIN 9.1L LHEMATOCRIT 28.3L LMEAN CELL V OLUME 92MEAN CELL HGB 29.5MEAN CELL HGB CONCENTRATION 32.2RED CELL DISTRIBUTION WIDTH 13.6PLATELET COUNT 247ME AN PLATELET VOLUME 11.2NEUTROPHIL % 46.0IMMATURE GRANULOCYTE % 0.5LYMPHOCYTE % 36.4MONOCYTE % 11.4EOSINOPHIL % 4.5BASOPHIL % 1.2NUCLEATED RBC % 0.0NEUTROPHIL # 1.86IMMATURE GRANULOCYTE # 0.020LYMPHOCYTE # 1.4 7 L MONOCYTE # 0.46EOSINOPHIL # 0.18BASOPHIL # 0.05 NUCLEATED RBC # 0.000 GLU BED (08/01/22 19:38)GLUBED 157 H GLU BED (08/01/22 16:10)GLUBED 216 H GLU BED (08/01/22 1 3:40)GLUBED 348 H GLU BED (08/01/22 12:50)GLUBED 440 *H BASI C METABOLIC PANEL (08/01/22 11:05)SODIUM 128L LPOTASSIUM 4.6 CHLORIDE 97L LCARBON DIOXIDE 28ANION GAP 7.6GLUCOSE 560* H *HBLOOD UREA NITROGEN 43H HGLOMERULAR FILTRATION RATE 34 LCREATININE 1.6H HBUN/CREATININE RATIO 26.9 HCAL CIUM 9.7 LIVER FUNCTION PANEL (08/01/22 11:05)TOTAL PROTE IN 8.8 HALBUMIN 3.5GLOBULIN 5.3 HBILIRUBIN TOTAL 0.4BI LIRUBIN DIRECT 0.1BILIRUBIN INDIRECT 0.3SGOT/AST 14 LSGP T/ALT 15ALKALINE PHOSPHATASE 164 H CBC W/AUTO DIFF ( 11:05)WHITE BLOOD CELL 5.1RED BLOOD CELL 3.62HEM OGLOBIN 10.7L LHEMATOCRIT 33.6L LMEAN CELL VOLUME 93MEA N CELL HGB 29.6MEAN CELL HGB CONCENTRATION 31.8RED CELL DIS TRIBUTION WIDTH 13.3PLATELET COUNT 308MEAN PLATELET VOLUME 11.2NEUTROPHIL % 61.2IMMATURE GRANULOCYTE % 0.6L YMPHOCYTE % 26.5MONOCYTE % 8.5EOSINOPHIL % 2.4BASOPHIL % 0. 8NUCLEATED RBC % 0.0NEUTROPHIL # 3.09 IMMATURE GRANULOCYTE # 0.030LYMPHOCYTE # 1.34 LMONOCYTE # 0.43EOSINOPHI L # 0.12BASOPHIL # 0.04NUCLEATED RBC # 0.000 HGBA1C - GLYCOSYLATED HGB (08/01/22 11:05)GLYCOSYLATED HE MOGLOBIN (HA1C) 11.8 H TROP-I HIGH SEN (08/01/22 11:05)TR OP-I HIGH SENSITIVITY 11 LIPID PROFILE (CORONARY RISK) ( 11:05)TRIGLYCERIDES 187 HCHOLESTEROL 305 HCHOLES TEROL/HDL RATIO 5HDL CHOLESTEROL 63 HLIPOPROTEIN LDL 201 H GLU BED (08/01/22 11:01)GLUBED 481 *H -- ATTESTATION -- TIME SPENT ON PATIENT CARE: - Direct 30 minutes CARE ACTIVI TIES / CARE COORDINATION: - I have reviewed the history and repeated the ingram elements - I have seen and examined this patient - I have reviewed the progress in the clinical cou rse since the lastexamination - I have discussed the blayne faria's condition with other members of the care team AD DITIONAL DETAIL:I HAVE SPENT >30 MINUTES IN THE EVALUA TION AND TREATMENT OF THIS PATIENT. Signed in [facility] er by Nini Doan MD on 08/02/22 at 10:26 at 1026ATTENTION EDITS and/or ADDENDA must be ma de in Patient Keeper for this note. Edits and ammen dments created in [facility] are not visible in [facility] t Keeper or the legal medical record (HPF). [facility] #: [id number] OF REPORT PRProgress [id number] Available for patient [id number] 3 2022-08-01 [id number] [facility] 17:37:00 [place] [facility]Med Order Sheet REPORT #: [id number] REPORT STATUS: Signed DATE: 08/01/22 TIME: 173 PATIENT : LIZZIE HINKLE UNIT #: [id number] # : [id number] ROOM #: [place] [address] BED: 1 : 3 AGE: 72 SEX: F ATTEND: Erasmo Fay MD ADM DT: AUTHOR: Erasmo Fay MD ATTENTION EDITS and/or ADDENDA must be made i n Patient Keeper for this note. Edits and ammendments c reated in [facility] are not visible in Patient Keeper or the legal medical record (HPF). Admission Medication Reconciliatio n -- CONTINUED / CHANGED HOME MEDICATIONS -- Home: As pirin Chewable Tab (Aspirin Chewable Tab) 81 MG PO [place] LYHosp: Aspirin Chewable Tab (Aspirin Chewable Tab) 81 M G PO DAILY Home: Clopidogrel Tab (Plavix Tab) 75 MG PO [place] YHosp: Clopidogrel Tab (Plavix Tab) 75 MG PO DAILY Home : Ezetimibe Tab (Zetia Tab) 10 MG PO DAILYHosp: Ezetimibe Ta b (Zetia Tab) 10 MG PO DAILY Home: Folbee 2.5 mg-25 mg-1 mg tablet (folic acid-vit B6-vit B12) 1 TAB PODAILYHosp: F olbee 2.5 mg-25 mg-1 mg tablet (folic acid-vit B6-vit B12) 1 TAB PODAILY Home: Insulin (Glargine) Inj (Lantus Inj ) 18 UNITS SUBQ QAMHosp: Existing: Insulin (Glargine) Inj ( Lantus Inj) 12UNITS SUBQ ONCE@1445Hosp: Existing: Insulin (G largine) Inj (Lantus Inj) 20UNITS SUBQ QAM@0800 Home: Ins ulin Lispro InJ (HumaLOG Inj) 0 UNITS SUBQ AC HSHosp: Existi ng: Insulin Lispro InJ (HumaLOG Inj) UNITS SUBQ AC HS Home: isosorbide mononitrate tablet 10 MG PO DAILYHosp: Isosorbid e Mononitrate Tab (Ismo Tab) 10 MG PO DAILY Home: Metoprolol Succinate XL Tab (Toprol XL Tab) 25 MG PO DAILYH osp: Metoprolol Succinate XL Tab (Toprol XL Tab) 25 M G PO DAILY :36ATTENTI ON EDITS and/or ADDENDA m ust be made in Patient Keeper for this note. Edits and am mendments created in [facility] are not visible in Patien t Keeper or the legal medical record (HPF). [facility] #: [id number] OF REPORT CLClinical [id number]:[id number] Available for patient [id number]:37:1 5 2022-08-01 [id number]:32:00 [facility] DICSUKHJINDER [facility] 14:32:00 [facility])Endocrinology Consultation REPORT #: [id number] REPORT STATUS: Signed DATE: 08/01/22 T EDUARDO: 1432 PATIENT: LIZZIE HINKLE UNIT #: [id number] CCOUNT #: [id number] ROOM #: [facility]2303 BED: 1 : 3 AGE: 72 SEX: F ATTEND: Erasmo Fay MD ADM DT: AUTHOR: Nini Doan MD ATTENTION EDITS and/or ADDENDA must be made i n Patient Keeper for this note. Edits and ammendments c reated in [facility] are not visible in Patient Keeper or the legal medical record (HPF). -- ASSESSMENT AND PLAN -- PROBLEMS : 1: Type 1 diabetes mellitus with hyperglycemiaA/P: UNCONTR OLLED (BRFU8D=81.8%,HYPERGLYCEMIA) TYPE I DM. OBSERVE ON SQBASAL/BOLUS INSULIN. BEDTIME SNACK. THANK YOU. WILL FOLLOW WITH YOU. -- HISTORY -- CONSULT REQUESTED BY:ERASMO FAY REASON FOR CONSULT:HYPERGLY CEMIA CHIEF COMPLAINT:HYPERGLYCEMIA HPI:PATIENT ADMITTED WIT H HYPERGLYCEMIA. SHE SAYS SHE HAD A GLUCERNA FOR B REAKFASTBUT DID NOT TAKE ANY INSULIN. PAST MEDICAL HISTORY:D M, HTN, CAD, diabetic retinopathy,, blind in R eye, diab etic nephropathy,hyperlipidemia, CKD hospitalized for DKA in mar 2019 PAST SURGICAL HISTORY:multiple retinal surg eries, hysterectomy -SOCIAL HISTORY- -TOBACCO USE- DETAILS/COMMENTS:former -VAPING/INHALED SOLVENTS - DETAILS/COMMENTS:none -ALCOHOL USE- DETAILS/COMM ENTS:none -DRUG USE- DETAILS/COMMENTS:none MARITAL STATUS: -- ALLERGIES/HOME MEDS -- ALLERGIES:codeine (Unknow n - Allergy)lisinopril (Severe - Allergy) HOME MEDICATIONS:Aspirin Chewable Tab (Aspirin Chewab le Tab) 81 MG PO DAILYClopidogrel Tab (Plavix Tab) 75 MG PO DAILYEzetimibe Tab (Zetia Tab) 10 MG PO DAILYFol bee 2.5 mg-25 mg-1 mg tablet (folic acid-vit B6-vit B12) 1 TAB PO DAILYInsulin (Glargine) Inj (Lantus Inj) 18 UNIT S SUBQ QAMInsulin Lispro InJ (HumaLOG Inj) 0 UNITS SUBQ AC HSisosorbide mononitrate tablet 10 MG PO DAILYMe toprolol Succinate XL Tab (Toprol XL Tab) 25 MG PO DAILY -- SUBJECTIVE -- -REVIEW OF SYSTEMS- GENERAL: Negat mirtha for feverRESPIRATORY: Negative for dyspneaCARDIOVASC ULAR: Negative for palpitations.GASTROINTESTINAL: Nega tive for abdominal pain or nausea. No emesis. No diarrhea .ENDOCRINE: Negative for polyphagia, polydipsia, polyuria -- OBJECTIVE -- VITALS (07/31 14:32 - 08/01 14:32):Temperatur e F: 97.9Temperature source: OralPulse Rate 87 (87 - 99)Respiratory rate: 19 (16 - 19)BP: 130/86 (130 /83 - 166/92) -EXAM- GENERAL: Well developed, well nou rished, in no apparent distress, THINHEAD: Normocephalic, atraumatic.EYES: LEGALLY BLINDNECK: trachea midl ine.CHEST: Grossly normal appearance.LUNGS: NORMAL CHEST WA LL MOVEMENTHEART: NO TACHYCARDIAABDOMEN: NON-DISTENDEDNEUROLOGICAL: NORMAL SPEECH PSYCHIA TRIC: Alert and oriented to time, person, place. -- DATA -- MEDICATIONS INSULIN LISPRO UNITS= SUBQ AC HSINSULIN GLARGINE 12 UNITS SUBQ ONCEGLUCAGON 1 MG IM ASDIR (PRN)DEXTROSE 50 %-WATER 50 ML IV ASDIR (PRN)INSULIN GLARGINE 20 UNITS SUBQ QAM LABS GLU BED (08/01/22 13:40)GLUBED 348 H GLU BED ( 12:50)GLUBED 440 *H CBC W/AUTO DIFF (08/01/22 11 :05)WHITE BLOOD CELL 5.1RED BLOOD CELL 3.62HEMOGLOBIN 10.7 L LHEMATOCRIT 33.6L LMEAN CELL VOLUME 93MEAN CELL HGB 29.6MEAN CELL HGB CONCENTRATION 31.8RED CELL DIS TRIBUTION WIDTH 13.3PLATELET COUNT 308MEAN PLATELET VOLUME 11.2NEUTROPHIL % 61.2IMMATURE GRANULOCYTE % 0.6L YMPHOCYTE % 26.5MONOCYTE % 8.5EOSINOPHIL % 2.4BASOPHIL % 0. 8NUCLEATED RBC % 0.0NEUTROPHIL # 3.09IMMATURE GRANULOCYTE # 0.030LYMPHOCYTE # 1.34 LMONOCYTE # 0.43EOSINOPHI L # 0.12BASOPHIL # 0.04NUCLEATED RBC # 0.000 BASIC M ETABOLIC PANEL (08/01/22 11:05)SODIUM 128L LPOTASSIUM 4. 6CHLORIDE 97L LCARBON DIOXIDE 28ANION GAP 7.6GLUCOSE 560*H *HBLOOD UREA NITROGEN 43H HGLOMERULAR FILTRATION RATE 34 LCREATININE 1.6H HBUN/CREATININE RATIO 26.9 HCAL CIUM 9.7 TROP-I HIGH SEN (08/01/22 11:05) TROP-I HIGH SEN SITIVITY 11 LIVER FUNCTION PANEL (08/01/22 11:05)TOTAL PROTE IN 8.8 HALBUMIN 3.5GLOBULIN 5.3 HBILIRUBIN TOTAL 0.4BIL IRUBIN DIRECT 0.1BILIRUBIN INDIRECT 0.3SGOT/AST 14 LSGP T/ALT 15ALKALINE PHOSPHATASE 164 H LIPID PROFILE (KATINA NARY RISK) (08/01/22 11:05)TRIGLYCERIDES 187 HCHOLESTEROL 3 05 HCHOLESTEROL/HDL RATIO 5HDL CHOLESTEROL 63 HLIPO PROTEIN LDL 201 H GLU BED (08/01/22 11:01)GLUBED 481 *H -- A TTESTATION -- TIME SPENT ON PATIENT CARE: - Direct 45 minut es CARE ACTIVITIES / CARE COORDINATION: - I have reviewe d the history and repeated the ingram elements - I have s een and examined this patient - I have discussed the pat ient's condition with other members of the care team AD DITIONAL DETAIL:I HAVE SPENT >45 MINUTES IN THE EVALUATIO N AND TREATMENT OF THIS PATIENT. Signed in PatientKeep er by Nini Doan MD on 08/01/22 at 17:42 at 1742ATTENTION EDITS and/or ADDENDA must be ma de in Patient Keeper for this note. Edits and ammen dments created in [facility] are not visible in Patien t Keeper or the legal medical record (HPF). RPT #: [id number] OF [id number]:32:[id number] for patient [id number]:43:05 2022-08-01 [id number]:30:00 [facility] D[facility] 13:30:00 [facility] ([facility])Family Med. History PhysicalREPORT #: [id number] REPORT STATUS: Signed DATE: 04/03/23 T EDUARDO: 4861 PATIENT: LIZZIE HINKLE UNIT #: [id number] CCOUNT #: [id number] ROOM #: [place] [address] BED: 1 : 3 AGE: 72 SEX: F ATTEND: Erasmo Fay MD ADM DT: AUTHOR: Erasmo Fay MD ATTENTION EDITS and/or ADDENDA must be made i n Patient Keeper for this note. Edits and ammendments c reated in [facility] are not visible in Patient Keeper or the legal medical record (HPF). -- HISTORY -- ADMISSION DATE:08-01 PRIMARY CARE PROVIDER:Erasmo Fay MD IEF COMPLAINT:weak HPI:hx of DM and dementia, sandra su having increasing difficulty caring for her,SHe has bec ome increasingly difficult, refusing meds,last coule days increased weakness, glucose elevated today PAST MEDICAL HISTORY:DM, HTN, CAD, diabetic retinopathy,, bli nd in R eye, diabetic nephropathy,hyperlipidemia, CKD ho spitalized for DKA in mar 2019 PAST SURGICAL HISTORY:multip le retinal surgeries, hysterectomy -SOCIAL HISTORY- -TOBACC O USE- DETAILS/COMMENTS:former -VAPING/INHALED SOLVENTS - DETAILS/COMMENTS:none -ALCOHOL USE- DETAILS/COMM ENTS:none -DRUG USE- DETAILS/COMMENTS:none MARITAL STATUS: -- ALLERGIES/HOME MEDS -- ALLERGIES:codeine (Unknow n - Allergy)lisinopril (Severe - Allergy) HOME MEDICATIONS:Aspirin Chewable Tab (Aspirin Chewab le Tab) 81 MG PO DAILYClopidogrel Tab (Plavix Tab) 75 MG PO DAILYEzetimibe Tab (Zetia Tab) 10 MG PO DAILYFol bee 2.5 mg-25 mg-1 mg tablet (folic acid-vit B6-vit B12) 1 TAB PO DAILYInsulin (Glargine) Inj (Lantus Inj) 18 UNIT S SUBQ QAMInsulin Lispro InJ (HumaLOG Inj) 0 UNITS SUBQ AC HSisosorbide mononitrate tablet 10 MG PO DAILYMe toprolol Succinate XL Tab (Toprol XL Tab) 25 MG PO DAILY -- SUBJECTIVE -- -REVIEW OF SYSTEMS- GENERAL: Negat mirtha for fever, chills,EYES: Negative for blurry vision. No diplopia.EARS/NOSE/THROAT: Negative for sore thr oat. No otalgia. No rhinorrhea.RESPIRATORY: Negative for shortness of breath, cough, chest congestion, wheezing, he moptysis, and pleuritic painCARDIOVASCULAR: Negative for c hest pain, palpitations, dyspnea on exertion, orthopnea, ed venancio and dizzinessGASTROINTESTINAL: Negative for abdomina l pain, nausea, vomiting, diarrhea, constipation, and anorexiaGENITOURINARY: Negative for dysuria, mulugeta quency, or urgency. No gross hematuria.MUSCULOSKELETAL: Neg ative for Back pain, joint pains and myalgiasSKIN: Negativ e for rashes. No pruritus.NEUROLOGICAL: Negative for h eadache, numbness, tingling, and weaknessPSYCHIATRIC: Den ies depression, anxiety, and suicidal thoughts -- OB JECTIVE -- VITALS (08/01 22:19 - 08/02 22:19):Temperature C : 37.3 (36.5 - 37.3)Temperature source: OralPulse Rate 80 (73 - 88)Respiratory rate: 18 (16 - 18)BP: 111/71 (92 /44 - 163/101) -EXAM- GENERAL: Well developed, well no urished, in no apparent distress.HEAD: Normocephalic, atraum atic.NOSE: No deformity, no discharge, no inflammation, no lesions.MOUTH: oropharynx moist and pink. no ton sillar hypertrophy, no exudate, no mucosal lesionsNECK: No masses, no thyromegaly, no abnormal cervical nodes, trac hea midline.CHEST: Grossly normal appearance.LUNGS: Respirations unlabored, clear to auscultation bi laterally, no wheezing, no ronchi, no ralesHEART: Regular r ate and rhythm, normal S1, S2, no murmurs, no rubs, no g allops, no clicks.ABDOMEN: + BS soft, flat, nontender, the liver and spleen are not palpable, no palpable masses, no herniasMUSCULOSKELETAL: No obvious deformitiesEX TREMITIES: No clubbing, cyanosis or edemaNEUROLOGICAL: Aler t and oriented to person, place, and time. PERRL, EOMI , no facial asymmetry, tongue and uvula are midline, normal speech. Moves all extremities symmetrically, normal tone , sensation intact all extremitiesPULSES: Normal carotid pul ses without bruits. Normal pulses bilaterally at radial, chris salis pedis and posterior tibial locations.SKIN: No pallor, no jaundice, no rash, normal turgorLYMPH NODES: Non e palpable cervical, axillary, supraclavicular or inguinal locationsPSYCHIATRIC: Mood euthymic. Affect jonathan ruent, Normal eye contact, normal speech. thought proc ess and thought content intact. -- DATA -- LABS TROP-I H IGH SEN (08/01/22 11:05)TROP-I HIGH SENSITIVITY 11 BASIC METABOLIC PANEL (08/01/22 11:05)SODIUM 128L LPOTASSIUM 4. 6CHLORIDE 97L LCARBON DIOXIDE 28ANION GAP 7.6GLUCOSE 560*H *HBLOOD UREA NITROGEN 43H HGLOMERULAR FILTRATION RATE 34 LCREATININE 1.6H HBUN/CREATININE RATIO 26.9 HCAL CIUM 9.7 HGBA1C - GLYCOSYLATED HGB (08/01/22 11:05)GLYCOS YLATED HEMOGLOBIN (HA1C) 11.8 H CBC W/AUTO DIFF ( 11:05)WHITE BLOOD CELL 5.1RED BLOOD CELL 3.62HEM OGLOBIN 10.7L LHEMATOCRIT 33.6L LMEAN CELL VOLUME 93MEAN CELL HGB 29.6MEAN CELL HGB CONCENTRATION 31.8RED CELL DIS TRIBUTION WIDTH 13.3PLATELET COUNT 308MEAN PLATELET VOLUME 11.2NEUTROPHIL % 61.2 IMMATURE GRANULOCYTE % 0.6 LYMPHOCYTE % 26.5MONOCYTE % 8.5EOSINOPHIL % 2.4BASOPHIL % 0.8NUCLEATED RBC % 0.0NEUTROPHIL # 3.09IMMATURE GRANULOCYTE # 0.030LYMPHOCYTE # 1.34 LMONOCYTE # 0.43EOSINOP HIL # 0.12BASOPHIL # 0.04NUCLEATED RBC # 0.000 GLU BED (08/01/22 11:01)GLUBED 481 *H LIVER FUNCTION PANEL ( 11:05)TOTAL PROTEIN 8.8 HALBUMIN 3.5GLOBULIN 5.3 HBILIRUBIN TOTAL 0.4BILIRUBIN DIRECT 0.1BILIRUBIN INDIRECT 0.3SGOT/AST 14 LSGPT/ALT 15ALKALINE PHOSPHATASE 164 H LIPID PROFILE (CORONARY RISK) (08/01/22 11:05)TRIGLYCERIDES 18 7 HCHOLESTEROL 305 HCHOLESTEROL/HDL RATIO 5HDL CHO LESTEROL 63 HLIPOPROTEIN LDL 201 H -- ASSESSMENT AND PLAN -- PROBLEMS: 1: Type 1 diabetes mellitus with [facility] comaA/P: insulin sliding scale, consult endocrin [facility] due to missing insulin doses 2: Hypertension 3: CAD (coronary artery disease) 4: Visual impairment 5: Peripher al arterial disease 6: DementiaA/P: case man consultmemory c are placement Signed in PatientKeeper by Erasmo Fay MD on 08/02/22 at 22:25 at 2225ATTENTION EDITS and/or ADDENDA must be ma de in Patient Keeper for this note. Edits and ammen dments created in [facility] are not visible in Patien t Keeper or the legal medical record (HPF). RPT #: [id number] OF REPORT HPHistory and physical [id number]:30:[id number] lable for patient [id number] 2:25:49 2022-08-01 [id number] [facility] Claudio peterson HCANC 11:07:00 [place] [address] PATIENT NAME: LIZZIE HINKLE ADMIT DA TE: 08/01/22ACCOUNT NO: [id number] ROOM NO: NC.230 3 AGE: 72 REPORT TYPE: eELECTROCARDIOGRAM SEX: F ADMITTING PHYSICIAN:Fadumo Fay MD ATTENDING PHYSICIAN:Erasmo spann MD Order:[id number] Reason : Test Date/Time Stamp:MonAug 01 2022 11:07:46Blood Pressure : / mmH GVent. Rate : 091 BPM Atrial Rate : 091 BPM P-R Int : 100 ms QRS Dur : 074 ms QT Int : 349 ms P-R-T Axes : 075 046 045 degrees QTc Int : 430 ms Sinus rhythmShort IA interval Confi rmed by MD Rosemary, Priyanka ([id number]) on 2022 2:50:25 PM Referred By: Self Referred Confirmed by:Fransisca Riley, Electronically Keila d by Miguel Riley MD on 08/03/22 at 14 [address] [place] [id number] PATIENT NAME: LIZZIE HINKLE .[id number] le for patient [id number]:5 0:57 2022-08-01 [id number]:06:00 [facility] 11:06:00 [facility] ([facility])EMERGENCY PROVIDER REPORTREPORT#:[id number] REPORT STATUS: SignedDAT E:08/01/22 TIME: 1106 PATIENT: LIZZIE HINKLE UNIT #: [id number]#: [id number] ROOM: [address] D: 1AGE: 72 SEX: F PCP PHYS: Erasmo Fay D AUTHOR: Jameel Viera MD * ALL edits or amendme nts must be made on the electronic/computer document * HPI-G eneral Illness Free Text HPI NotesFree Text HPI Notes72 -year-old female past medical history of dementia, diabete s, presents accompanied by daughter due to generalized funct ional decline over the last couple of weeks. Patient h as stopped eating or caring for herself. This is in the manjinder kground of several months of worsening dementia. No acute a cceleration of her symptoms, has not been complaining of uri nary symptoms abdominal pain nausea vomiting cough sh ortness of breath fevers or displaying any outward evidence of illness other than listed as above. Patient noncontribut ory towardsHPI. GeneralInitial Greet Date/Time 08/01 1054 PresentationChief Complaint Altered mental statu s Review of Systems ROS StatementsUnable to Obtain ROS Demen tia Past Medical History - AdultStated Complaint SENT BY ,NOT EATING,WEAKNESSAllergiesCoded Allergies:lisinopr il (Severe, ANGIOEDEMA 02/20/22)codeine (DROWSINESS/very sle epy 02/20/22) Home MedicationsDiscontinued Scriptspo lyethylene glycoL 3350 (Miralax) 17 GM PO ASDIR polyethylen e glycoL 3350 (Miralax) 17 GM PO ASDIR #30 PACKET Prov: 1 06/19/21 DC: 08/01/22 1335 Patient stopped takingCefdinir (Om nicef) 300 MG PO Q12H 7 Days #14 CAPS Prov: 04/18/22 DC: 1335 Therapy completedInsulin Glargine (Lantus Solost ar) 18 UNITS SUBQ QAM Insulin Glargine (Lantus Solostar ) 18 UNITS SUBQ QAM #5 SYR Ref 2 Prov: 03/14/22 DC: 3 1335 Duplicate therapyHydrocortisone (Anusol-Hc) 1 LANDIN PP RECTAL BID Hydrocortisone (Anusol-Hc) 1 SUPP RECTAL BID #1 SUPPOSITORY, RECTAL BOX Prov: 05/21/22 DC: 08/01 1335 Changed since prior admitpolyethylene glycoL 335 0 (Miralax) 1 PKT PO BID PRN Constipation (Use 1st) polyethy gloria glycoL 3350 (Miralax) 1 PKT PO BID PRN Constipation (Us e 1st) #1 PACK Prov: 05/21/22 DC: 08/01/22 1335 Patient s topped taking Reported MedicationsEzetimibe (Zetia) 10 MG PO DAILY Insulin Glargine (Lantus) 18 UNITS SUBQ QAM Aspi rin 81 MG PO DAILY Clopidogrel Bisulfate (Plavix) 75 MG PO DAILY Cyanocobalamin/Fa/Pyridoxine (Folbee) 1 TAB PO D AILY Insulin Lispro (Humalog) 0 UNITS SUBQ AC HS Meto prolol Succ Xl (Toprol Xl) 25 MG PO DAILY Isosorbide Mononit rate (Monoket) 10 MG PO DAILY Discontinued Reported MedicationsRanolazine Er (Ranexa) 1,000 MG PO BI D Isosorbide Mononitrate Sr (Imdur) 30 MG PO DAILY [DME - INSULIN PEN NE] 1 EACH MISC ASDIR [DME - GLUCOSE STRIPS] 1 EACH MISC QID [DME - GLUCOSE LANCET] 1 EACH MISC QID Dicyclomine (Bentyl) 10 MG PO TID PRN ABDOMINAL CRAMPS/PAIN Metronidazole (Flagyl) 500 MG PO Q8HR Insulin Li spro (Humalog) Famotidine (Pepcid) 20 MG PO Q12HR Ins ulin Glargine (Lantus) 18 UNITS SUBQ QAM Unobtainable due to: DementiaAdditional Medical HistoryInsulin-depend ent diabetes mellitus CAD hypertension Hyperlipidemi a Visual impairment Diabetic retinopathyAdditional Surgic al HistoryNoneAlcohol Use Denies EtOH useDrug Use D enies recreational drugsAdditional Social HistoryLives with spouse Physical Exam Vital SignsVital SignsFirst Documented: Result Date Time O2 Delivery Room melissa 08/01 1046 Temp 36.6 08/01 1046 Resp 19 08/01 1046 Pu lse Ox 97 / 1056 B/P 166/92 / 1056 B/P Mean 122 / 1056 Pulse 99 / 1056 Last Documented: Result Date Time Pulse Ox 97 04/ 1056 B/P 166/92 / 1056 B/P Mean 122 04/ 1056 Pulse 99 / 1056 O2 Delivery Room air 1046 Temp 36.6 08/01 1046 Resp 19 08/01 1046 Review o f Vital Signs Reviewed Free Text PE NotesFree Text PE No tesPHYSICAL EXAM: - GENERAL: Alert, conversant. Not cooperat mirtha with interview questions and states she does not want to be here and that nothing is wrong with her - HENT: Moist mucous membranes. - LUNGS: Nonlabored breathing. No acc essory muscle use. - CARDIOVASCULAR: Regular rate and r hythm. Warm, well-perfused. - ABDOMEN: Soft, non-tender and non-distended. - NEUROLOGIC: Moving extremities spontaneously. - PSYCHIATRIC: Cooperative. Appro priate mood and affect. Interpretation Diagnostics Lab Resul ts InterpretationResultsLaboratory Tests 08/01/22 1105:[Embedded Image Not Available]Laboratory Te sts: 08/01 08/01 08/01 08/01 1101 1105 1105 1105Chemistry Sodium (135 - 145 mmol/L) 128 L Potassium (3.5 - 5.1 mmol/L) 4.6 Chloride (98 - 107 mmol/L) 97 L Carbon Dioxide ( 21 - 32 mmol/L) 28 Anion Gap (2.0 - 16.0) 7.6 BUN (4 - 23 mg/dL) 43 H Creatinine (0.6 - 1.5 mg/dL) 1.6 H Glomerul ar Filtr Rate (>60 ml/min) 34 L BUN/Creatinine Ratio (12. 0 - 20.0) 26.9 H Glucose (65 - 99 mg/dL) 560 *H POC Glucos e (70 - 105 mg/dL) 481 *H Hemoglobin A1c (4.5 - 5.9 %) 11.8 H Calcium (8.5 - 10.1 mg/dL) 9.7 Total Bilirubin (0.2 - 1. 2 mg/dL) 0.4 Direct Bilirubin (0.0 - 0.3 mg/dL) 0.1 Indir ect Bilirubin (0.0 - 0.8 mg/dL) 0.3 AST (15 - 37 U/L ) 14 L ALT (6 - 50 U/L) 15 Total Alk Phosphatase (45 - 117 U/L) 164 H Troponin I High Sens (0 - 53 pg/mL) 11 Total Pro tein (6.4 - 8.2 g/dL) 8.8 H Albumin (3.4 - 5.0 g/dL) 3.5 Tanya bulin (2.3 - 3.5 g/dL) 5.3 H Triglycerides (0 - 149 mg/dL) 187 H Cholesterol (0 - 200 mg/dL) 305 H LDL Cholestero l Measurd (0 - 100 mg/dL) 201 H HDL Cholesterol (40 - 60 m g/dL) 63 H Cholesterol/HDL Ratio (1 - 6) 5Hematology WBC (4 .5 - 11.0 10 3/uL) 5.1 RBC (3.50 - 5.50 10 6/uL) 3.62 Hgb (12.0 - 16.0 g/dL) 10.7 L Hct (37.0 - 55.0 %) 33.6 L MCV (81 - 102 fL) 93 MCH (26.0 - 34.0 pg) 29.6 MCHC (31.0 - 37 .0 g/dL) 31.8 RDW (11.6 - 14.4 %) 13.3 Plt Count (150 - 4 00 10 3/uL) 308 MPV (9.0 - 12.6 fL) 11.2 Neut % (Auto) (33.0 - 76.0 %) 61.2 Lymph % (Auto) (14.0 - 56.4 %) 26.5 Lanier % (Auto) (0.0 - 12.9 %) 8.5 Eos % (Auto) (0.0 - 7.0 %) 2.4 Bas o % (Auto) (0 - 2.0 %) 0.8 Neut # (Auto) (1.5 - 7.0 10 3/uL ) 3.09 Lymph # (Auto) (1.50 - 4.00 10 3/uL) 1.34 L Lanier # (Auto) (0.20 - 0.80 10 3/uL) 0.43 Eos # (Auto) (0.0 - 0 .5 10 3/uL) 0.12 Baso # (Auto) (0.0 - 0.1 10 3/uL) 0.04 Abs Immat Gran (auto) (0.000 - 0.100 0.030x10 3/uL) Immature Gr an % (0.0 - 1.0 %) 0.6 Nucleated RBC % (0 - 0.2 %) 0.0 Nucl eated RBCs # (0.000 - 0.012 10 3/uL) 0.000 Recent Impressions:RADIOLOGY - XR CHEST 1 V 08/01 1101* Report Impression - Status: SIGNED Entered: 08/01/2022 113 IMPRESSION:1. No acute cardiopulmonary findings seen.Impression By: [email or web address] - Donald Jean-Baptiste M.D. Re-Evaluation MDM Free Text MDM NotesFree Text M DM [id number] female with progressive functio nal decline in setting of advancing dementia, no evidence of delirium, no evidence of reversible causes on ED evaluatio n, she has moderate hyperglycemia but no other evidence of toxic/metabolic encephalopathy, structural lesio ns on CT or infectious etiology. Willadmit to coordinate SNF placement as family states they are no longer able to care for at home The medical decision making includes indepe ndent review of any ordered imaging and EKGs and are i n agreement with radiology interpretation unless documented otherwise. Individual labs and/or microbiologic data along with urine studies ordered and resulted at time of dictatio n have been interpreted by me and do notappear to contribute to an emergency diagnosis unless as mentioned above. O [facility]side records including the most recent discharge summ amador, if available, have been reviewed. Consultants inclu rasta hospitalists involved in the case as ordered/doc umented in the EMR agree with ED plan unless as documented above. Patient Discharge Departure Vital Signs/Conditio nVital SignsFirst Documented: Result Date Time O2 Deliv taras Room air 08/01 1046 Temp 36.6 / 1046 Resp 19 04/0 3 1046 Pulse Ox 97 / 1056 B/P 166/92 04/ 1056 B/ P Mean 122 / 1056 Pulse 99 1056 Last Documented: Result Date Time Pulse Ox 97 08/01 1056 B/P 166/92 04/0 3 1056 B/P Mean 122 08/01 1056 Pulse 99 08/01 1056 O2 Deliv taras Room air 08/01 1046 Temp 36.6 08/01 1046 Resp 19 1046 All vital signs available at the time of this entry have been reviewed. Clinical ImpressionClinical Impression Primary Impression: Declining functional status Disposit ion DecisionAdmit Admit Physician Name DerrickparagucheelenaAdis MD Admit Physician Primary Care Physician Request T eduardo 110 Request Date 08/01/22 )( Admission Accepts Yes ) ( Accepted Time 1107 )( Accepted Date 08/01/22 Call Informa [place]ion [place] at 0646RPT #:[id number] OF REPORTEDEmernorthwest medical center department [id number]:06:[id number] vailable for patient [id number]:47:0 3 2022-07-04 [id number] [facility] 03:14:[address] [address] PATIENT NAME: LIZZIE HINKLE ADMIT DA TE: 07/04/22ACCOUNT NO: [id number] ROOM NO: [facility] RECORD NO: [id number] AGE: 72 REPORT TYPE: Nik DIOGRAM SEX: F ADMITTING PHYSICIAN: ATTENDING PHYSICIAN: Order:[id number] Reason : Test Date/Time Stamp:MonJul 04 2022 03:14:41Blood Pressure : / mmH GVent. Rate : 092 BPM Atrial Rate : 092 BPM P-R Int : 110 ms QRS Dur : 076 ms QT Int : 380 ms P-R-T Axes : 067 016 048 degrees QTc Int : 471 ms Normal sinus rhythmwith short PRAbn ormal R-wave progression, early transitionLVH with sec ondary repolarization abnormality Confirmed by MD Kasie, Bal ([id number]) on 07/06/2022 7:50:44 AM Referred By: Self Referred Confirmed by:Bal Ferro MD Electronically Sign ed by Bal Ferro MD on 07/06/22 at 0750 [facility] [address] [facility] [address] PATIENT NAME: LIZZIE HINKLE .[id number] 64AVAvailab le for patient [id number]:5 1:02 2022-07-04 [id number]:56:00 [facility] 02:56:00 [facility] ([facility]EMERGENCY PROVIDER REPORTREPORT#:[id number] REPORT STATUS: SignedDAT E:07/04/22 TIME: 255 PATIENT: LIZZIE HINKLE UNIT #: [id number]#: [id number] ROOM: BED:AGE: 72 SEX: F PCP PHYS: Erasmo Fay MDSERVICE DT: 10/21 AUTHOR: Sara Almendarez MD * ALL edits or amend ments must be made on the electronic/computer document * Sara Almendarez 07/04/22 0256:HPI-General Illne ss Free Text HPI NotesFree Text HPI NotesPatient with angel luis farley medical history of hypertension, diabetes, CKD, CAD pres ented to ER by ambulance for evaluation of hyperglycemia. Angel Luis aguilar was just seen in the ED approximately 24 hours ago f or a minor knee injury and found to be hyperglycemic which improved at time of discharge. Per EMS the patient's daharpere r who is her nursing service administrator was away from the house hannah su did not administer her evening insulin. Patient has karina ntia and apparently got into a verbal argument with her h usband. EMS was called and her glucose was noted to be h igh. She denies any complaints but was transported for fu rther evaluation. She missed her evening insulin dose but is unsure what type or amount was due tonight. [facility] Greet Date/Time 07/04/22 0250 PresentationChief Complaint __ (hyperglycemia)Hx Obtained From Patient, MACIEJ ndependent Hx Due to DementiaSudden in Onset? NoOnset Occur red YesterdaySymptom Duration Since onsetProgression since Onset UnchangedContext of Onset medication non-complianceAssociated Other Pt denies other s ymptoms Review of Systems ROS StatementsAll systems rev neg except as marked. Past Medical History - AdultStated Co mplaint HIGH BSAllergiesCoded Allergies:lisinopril (Danielle re, ANGIOEDEMA 02/20/22)codeine (DROWSINESS/very sle epy 02/20/22) Home MedicationsActive Scriptspolyethy gloria glycoL 3350 (Miralax) 17 GM PO ASDIR polyethylene glyco L 3350 (Miralax) 17 GM PO ASDIR #30 PACKET Prov: Cefdinir (Omnicef) 300 MG PO Q12H 7 Days #14 CAPS Prov: 04/18/22Insulin Glargine (Lantus Solostar) 18 UN ITS SUBQ QAM Insulin Glargine (Lantus Solostar) 18 UNITS SUBQ QAM #5 SYR Ref 2 Prov: 03/14/22Hydrocortisone (Anusol- Hc) 1 SUPP RECTAL BID Hydrocortisone (Anusol-Hc) 1 SUPP REC TERRA BID #1 SUPPOSITORY, RECTAL BOX Prov: 05/21/22polyethyle ne glycoL 3350 (Miralax) 1 PKT PO BID PRN Constipation (Us e 1st) polyethylene glycoL 3350 (Miralax) 1 PKT PO BID PRN Constipation (Use 1st) #1 PACK Prov: 05/21/22 Re ported MedicationsMetoprolol Succ Xl (Toprol Xl) 25 MG PO DAILY Ezetimibe (Zetia) 10 MG PO DAILY Ranolazine Er ( Ranexa) 1,000 MG PO BID Isosorbide Mononitrate Sr (Imdur ) 30 MG PO DAILY [DME - INSULIN PEN NE] 1 EACH MISC ASDIR [ DME - GLUCOSE STRIPS] 1 EACH MISC QID [DME - GLUCOSE L ANCET] 1 EACH MISC QID Dicyclomine (Bentyl) 10 MG PO TID PRN ABDOMINAL CRAMPS/PAIN Metronidazole (Flagyl) 500 MG PO Q8HR Insulin Glargine (Lantus) 18 UNITS SUBQ QAM Aspi rin 81 MG PO DAILY Clopidogrel Bisulfate (Plavix) 75 MG PO DAILY Cyanocobalamin/Fa/Pyridoxine (Folbee) 1 TAB PO D AILY Insulin Lispro (Humalog) Famotidine (Pepcid) 20 MG PO Q12HR Insulin Glargine (Lantus) 18 UNITS SUBQ QAM Insu janki Lispro (Humalog) 0 UNITS SUBQ AC HS Additional Medical HistoryInsulin-dependent diabetes mellitus CAD h ypertension Hyperlipidemia Visual impairment Diabetic retinopathyAdditional Surgical HistoryNoneAlcoho l Use Denies EtOH useDrug Use Denies recreational drug sAdditional Social HistoryLives with spouse Physical Exam Vi terra SignsReview of Vital Signs Reviewed Free Text PE NotesFree Text PE NotesGENERAL APPEARANCE: Alert, generall y well-appearing, no acute distress. HEENT: Normoc ephalic, atraumatic. Moist mucous membranes. EOMI, clear conjunctiva, oropharynx clear. NECK: Supple with out lymphadenopathy. No stiffness or restricted ROM. Trachea midline. HEART: Normal rate and regular rhythm, normal S1/S1, no murmur. LUNGS: CTAB, moving air well. No crackles or wheezes are heard. ABDOMEN: Soft, nontender, nondistended. Normal bowel sounds. No masses. BA CK: No CVA tenderness, no obvious deformity. No signs of tr auma. EXTREMITIES: No swelling, deformity. Normal ROM, no focal tenderness. NEUROLOGICAL: Grossly non-focal. Connor rt and oriented, moving all [address] oop. SKIN: Warm and dry without any rash. No pallor or cyan osis PSYCH: Normal mood and affect. Normal judgement. Interp retation Diagnostics Lab Results Interpretation Lab StatementLaboratory studies reviewed and conside red in the medical decision-making. Point of Care TestingPu lse Oximetry Pulse Ox % 100 On: Room air Interpretat ion Interpreted by me, Pulse oximetry normal Time 10 07 ECG #1 InterpretationDate 07/04/22Time 0314Interpreted by and reviewed by me, Independently interpretedNL ECG Interpretation No acute ischemic changes, No MAYO OR, Normal ST waves, Normal T waves, Normal axisRate 92ECG Q-T-ST - OR LVHRhythm Atrial fibrillation Re-Evaluation MDM Free Text MDM NotesFree Text MDM [id number] female w ith dementia presenting via EMS for evaluation of as ymptomatic hypoglycemia in the context of missing her eveni ng dose of insulin. Patient is alert and oriented, calm, de nies any complaints. CBC, CMP, urinalysis ordered, review ed, interpreted. CBC noted for stable mild anemia. C MP noted with significant hyperglycemia but not consisten t with DKA.BUN slightly elevated. Patient received IV f luids, insulin dosage with improvement in her hyperglyc emia. She has no complaints and vitals are stable. Stable for discharge at this time with close follow-up Kayla ent Discharge Departure Vital Signs/ConditionConditi on Stable Clinical ImpressionClinical ImpressionPrimary Im pression: Acute hyperglycemiaTime of Impression 0513 Disch arge/Care PlanCounseled Regarding Diagnosis, Lab results, Need for follow-up, When to return to EDPatient Instructi ons ED Diabetes with High Blood SugarAdditional InstructionsContinue home medications as prescri bed, follow-up with primary care physician regarding uncontrolled glucose levels. Return to ER for ne w or worsening symptoms Dheeraj Loco 07/04/22 0838:Physic al Exam Vital SignsVital SignsFirst Documented: Result Date Time Pulse Ox 100 07/04 0241 B/P 153/81 / 0241 B/ P Mean 105 / 0241 O2 Delivery Room air / 0241 Temp 36.7 03/ 0241 Pulse 87 03/06 0241 Resp 16 03/ 0241 Las t Documented: Result Date Time Pulse Ox 100 / 1018 B/P 164/96 / 1018 B/P Mean 118 /06 1018 O2 Del christina Room air / 1018 Pulse 82 03/06 1018 Resp 12 03/0 6 1018 Temp 36.7 07/04 0241 Interpretation Diagnostics Lab R esults InterpretationResultsLaboratory Tests 07/04/22 0320:[Embedded Image Not Available]Laboratory Te sts: 07/04 07/04 07/04 07/04 0320 0321 0419 0505Chemistry Sodium (135 - 145 mmol/L) 132 L Potassium (3.5 - 5.1 mmol/L) 3.8 Chloride (98 - 107 mmol/L) 101 Carbon Dioxide (2 1 - 32 mmol/L) 26 Anion Gap (2.0 - 16.0) 8.8 BUN (4 - 2 3 mg/dL) 36 H Creatinine (0.6 - 1.5 mg/dL) 1.3 Glomerular Fi ltr Rate (>60 ml/min) 44 L BUN/Creatinine Ratio (12.0 - 20.0) 27.7 H Glucose (65 - 99 mg/dL) 608 *H POC Glucos e (70 - 105 mg/dL) 498 *H 449 *H Calcium (8.5 - 10.1 mg/dL) 8.8 Total Bilirubin (0.2 - 1.2 mg/dL) 0.4 Direct Bilirubin (0.0 - 0.3 mg/dL) 0.1 Indirect Bilirubin (0.0 - 0.8 mg/dL) 0.3 AST (15 - 37 U/L) 15 ALT (6 - 50 U/L) 16 Total Alk Phosp hatase (45 - 117 U/L) 114 Troponin I High Sens (0 - 53 pg/m L) 13 Total Protein (6.4 - 8.2 g/dL) 8.1 Albumin (3.4 - 5.0 g/dL) 3.1 L Globulin (2.3 - 3.5 g/dL) 5.0 HHematology WBC (4 .5 - 11.0 10 3/uL) 6.2 RBC (3.50 - 5.50 10 6/uL) 3.28 L Hg b (12.0 - 16.0 g/dL) 10.0 L Hct (37.0 - 55.0 %) 30.3 L MCV (81 - 102 fL) 92 MCH (26.0 - 34.0 pg) 30.5 MCHC (31.0 - 3 7.0 g/dL) 33.0 RDW (11.6 - 14.4 %) 14.6 H Plt Count (150 - 400 10 3/uL) 295Urines Urine Color (YELLOW) YELLOW Uri ne Appearance (CLEAR) Slightly-Cloudy Urine pH (5.0 - 8.0) 5.0 Ur Specific [place] (1.005 - 1.025) 1.022 Urine Protein (NEGATIVE) NEGATIVE Urine Glucose (UA) (NEGATIVE ) 3+ H Urine Ketones (NEGATIVE) NEGATIVE Urine Blood (N EGATIVE) 2+ H Urine Nitrite (NEGATIVE) NEGATIVE Urine Biliru bin (NEGATIVE) NEGATIVE Urine Urobilinogen (0.1 - 0. 2 EU/dL) NEGATIVE Ur Leukocyte Esterase (NEGATIVE) NEGATI VE Urine RBC (0 - 3 /hpf) 3-5 H Urine WBC (0 - 3 /hpf) 3- 5 H Ur Squamous Epith Cells (FEW /HPF) RARE Urine Bacte yamile (NEGATIVE /HPF) RARE Urine Mucus (/lpf) OCCASION AL 07/04 0835 Chemistry POC Glucose (70 - 105 mg/dL) 211 H Re-Evaluation MDM Re-Evaluation/Progress #1Text/ Dict [id number]: Patient signed out to me from Dr. Akhtar os, dispo pending BGL improvementn to < 400. 0838: BGL imp roved 211Time of Re-Eval 0838Re-Eval Status Improved E D CourseMedication(s) OrderedMedication(s) Ordered :Central Nervous System Agents Sig/Chris Start time Last Me dication Dose Route Stop Time Status Admin Morphine Sulfa te 2 MG X1ED STA 07/04 0607 CAN IV 07/04 0608 Electrolyt ic, Caloric, And Pablo Sig/Chris Start time Last Medicat ion Dose Route Stop Time Status Admin Sodium Chloride 1,0 00 ML X1ED STA 07/04 0510 DC 03/06 IV 03/ 0609 0520 Sodi um Chloride 1,000 ML X1ED STA 07/04 0255 DC 03/06 IV 03/06 0 354 0300 Hormones And Synthetic Substit Sig/Chris Start mary jo e Last Medication Dose Route Stop Time Status Admin Ins ulin Human Regular 5 UNIT X1ED STA 07/04 0510 DC /06 IV 0 06 0511 0520 Insulin Human Regular 10 UNIT X1ED STA 03/0 6 0405 DC 03 SUBQ 03/ 0406 0414 Patient Discharge De parture Vital Signs/ConditionVital SignsFirst Documented : Result Date Time Pulse Ox 100 / 0241 B/P 153/81 03/ 06 0241 B/P Mean 105 03/06 0241 O2 Delivery Room air 03/06 0 241 Temp 36.7 03/06 0241 Pulse 87 03/06 0241 Resp 16 03/0 6 0241 Last Documented: Result Date Time Pulse Ox 100 03/ 1018 B/P 164/96 03/ 1018 B/P Mean 118 /06 1018 O2 De livery Room air 07/04 1018 Pulse 82 03/06 1018 Resp 12 03/0 6 1018 Temp 36.7 07/04 0241 All vital signs available at the time of this entry have been reviewed. Disposition DecisionDischarge )( Discharged to Home Yes )( T eduardo 0838 )( Date 07/04/22 Discharge/Care Plan Discharge Note I have spoken with the patient and/or caregivers. I hav e explained the patient'scondition, diagnoses and treatment plan based on the information available to meat this time. I have answered the patient's and/or caregiver's questi ons and addressed any concerns. The patient and/or careg kiana have as good an understanding of the patient's diagno sis, condition and treatment plan as can beexpected a t this point. The vital signs have been stable. The pat ient's condition is stable and appropriate for discharg e from the emergency department. The patient will pursue fu rther outpatient evaluation with the primary care phys ician or other designated or consulting physician as outl ined in the discharge instructions. The patient and/or careg kiana are agreeable to this planof care and follow-up inst ructions have been explained in detail. The patient and/o r caregivers have received these instructions in w ritten format and have expressed an understanding of e discharge instructions. The patient and/or caregivers are aware that any significant change in condition or worsening of symptoms should prompt an immediate return to hospital for special surgery or the closest emergency department or a call to 911. at 1742 at 2102RPT #:[id number] OF REPORTEDEmergency department [id number]:56:00NC.[id number] vailable for patient [id number]:43:0 7 2022-07-03 [id number]:00 [facility] 06:56:00 [facility] ([facility])EMERGENCY PROVIDER REPORTREPORT#:[id number] REPORT STATUS: SignedDAT E:07/03/22 TIME: 0656 PATIENT: LIZZIE HINKLE UNIT #: [id number]#: [id number] ROOM: BED:AGE: 72 SEX: F PCP PHYS: Erasmo Fay DT: 09/20 AUTHOR: Dheeraj Loco MD * ALL edits or amendments mu st be made on the electronic/computer document * HPI-Knee P paco/Inj Free Text HPI NotesFree Text HPI NotesPatient wi th past medical history of hypertension, diabetes, CKD, CAD presented to ER by ambulance due to left knee pa in after she hit her knee on the bed this morning. Otherw ise, patient denies any fall or head injury, chest pa in, neck pain, shortness of breath, nausea, vomiting, abd ominal pain, other extremity pain. Patient received fen tanyl by EMS. GeneralInitial Greet Date/Time 07/03/22 064 2 PresentationChief Complaint Knee pain LHx Obtain ed From Patient, Family, EMS Review of Systems ROS State mentsAll systems rev neg except as marked. Past Medical H istory - AdultStated Complaint LEFT LEG PAIN, HYPERGLYCEMIAAllergiesCoded Allergies:lisinopril (Severe, ANGIOEDEMA 02/20/22)codeine (DROWSINESS/very sle epy 02/20/22) Home MedicationsActive Scriptspolyethy gloria glycoL 3350 (Miralax) 17 GM PO ASDIR polyethylene glyco L 3350 (Miralax) 17 GM PO ASDIR #30 PACKET Prov: Cefdinir (Omnicef) 300 MG PO Q12H 7 Days #14 CAPS Prov: 04/18/22Insulin Glargine (Lantus Solostar) 18 UN ITS SUBQ QAM Insulin Glargine (Lantus Solostar) 18 UNITS SUBQ QAM #5 SYR Ref 2 Prov: 03/14/22Hydrocortisone (Anusol- Hc) 1 SUPP RECTAL BID Hydrocortisone (Anusol-Hc) 1 SUPP REC TERRA BID #1 SUPPOSITORY, RECTAL BOX Prov: 05/21/22polyethyle ne glycoL 3350 (Miralax) 1 PKT PO BID PRN Constipation (Us e 1st) polyethylene glycoL 3350 (Miralax) 1 PKT PO BID PRN Constipation (Use 1st) #1 PACK Prov: 05/21/22 Re ported MedicationsMetoprolol Succ Xl (Toprol Xl) 25 MG PO DAILY Ezetimibe (Zetia) 10 MG PO DAILY Ranolazine Er ( Ranexa) 1,000 MG PO BID Isosorbide Mononitrate Sr (Imdur ) 30 MG PO DAILY [DME - INSULIN PEN NE] 1 EACH MISC ASDIR [ DME - GLUCOSE STRIPS] 1 EACH MISC QID [DME - GLUCOSE L ANCET] 1 EACH MISC QID Dicyclomine (Bentyl) 10 MG PO TID PRN ABDOMINAL CRAMPS/PAIN Metronidazole (Flagyl) 500 MG PO Q8HR Insulin Glargine (Lantus) 18 UNITS SUBQ QAM Aspi rin 81 MG PO DAILY Clopidogrel Bisulfate (Plavix) 75 MG PO DAILY Cyanocobalamin/Fa/Pyridoxine (Folbee) 1 TAB PO D AILY Insulin Lispro (Humalog) Famotidine (Pepcid) 20 MG PO Q12HR Insulin Glargine (Lantus) 18 UNITS SUBQ QAM Insu janki Lispro (Humalog) 0 UNITS SUBQ AC HS Additional Medical HistoryInsulin-dependent diabetes mellitus CAD h ypertension Hyperlipidemia Visual impairment Diabetic retinopathyAdditional Surgical HistoryNoneAlcoho l Use Denies EtOH useDrug Use Denies recreational drug sAdditional Social HistoryLives with spouse Physical Exam Vi terra SignsVital SignsFirst Documented: Result Date Ti me Pulse Ox 99 03/05 0642 B/P 135/70 03/ 0642 B/P Mean 91 03/05 0642 O2 Delivery Room air 03/ 0642 Temp 98.0 03/05 0642 Pulse 90 03/05 0642 Resp 18 03/05 0642 Last Documented : Result Date Time Pulse Ox 96 03/05 1030 B/P 132/81 03/ 05 1030 B/P Mean 102 03/05 1030 Pulse 81 03/05 1030 Resp 22 03/05 1030 O2 Delivery Room air 03/05 0642 Temp 98.0 03/05 0642 Review of Vital Signs Reviewed Free Text PE NotesFree T ext PE NotesGen: awake, alert, oriented, well appearing , not in acute distressEyes: PERRL, conjunctiva normal, EOMIHead/Neck: atraumatic, normocephalic, no C-s pine tendernessENT: Airway patent, mucous membranes m oist, uvula midline, normal oropharynxCardio: normal rate, r hythm, S1/S2. No murmurs/gallops/rubsPulm: breath sound s symmetric bilat, no crackles/wheezingGI: Soft, non-tender, non-distended, no peritoneal signsBack: No midli ne tendernessMSK Upper extrm: inspection nl, no swe lling, no deformity. Radial pulses symmetric.MSK Lower ext rm: inspection nl, no swelling/edema, no deformity. DP/PT pulses symmetric. left Knee pain elicited with k nee flexion. Pelvis stable.Skin: warm, dry, no cyano sis, no diaphoresisNeuro: A O x 3, moves all extremities Psych: normal mood, affect, thought content Interpretat ion Diagnostics Lab Results InterpretationResultsLab oratory Tests 07/03/22 0723:[Embedded Image Not Available]Laboratory Tests: 07/03 07/03 07/03 07 22 0723 1043 Chemistry Sodium (135 - 145 mmol/L) 128 L P otassium (3.5 - 5.1 mmol/L) 3.8 Chloride (98 - 107 mmol/L ) 93 L Carbon Dioxide (21 - 32 mmol/L) 28 Anion Gap (2. 0 - 16.0) 10.8 BUN (4 - 23 mg/dL) 39 H Creatinine (0.6 - 1.5 mg/dL) 1.4 Glomerular Filtr Rate (>60 ml/min) 40 L BUN/ Creatinine Ratio (12.0 - 20.0) 27.9 H Glucose (65 - 99 mg/ dL) 572 *H POC Glucose (70 - 105 mg/dL) 499 *H 384 H Calciu m (8.5 - 10.1 mg/dL) 9.5 Hematology WBC (4.5 - 11.0 10 3 /uL) 5.9 RBC (3.50 - 5.50 10 6/uL) 3.38 L Hgb (12.0 - 16. 0 g/dL) 9.9 L Hct (37.0 - 55.0 %) 30.4 L MCV (81 - 102 fL) 9 0 MCH (26.0 - 34.0 pg) 29.3 MCHC (31.0 - 37.0 g/dL) 32.6 RDW (11.6 - 14.4 %) 14.1 Plt Count (150 - 400 10 3/uL) 332 M PV (9.0 - 12.6 fL) 10.7 Neut % (Auto) (33.0 - 76.0 %) 69.7 Lymph % (Auto) (14.0 - 56.4 %) 16.5 Lanier % (Auto) (0.0 - 12.9 %) 9.2 Eos % (Auto) (0.0 - 7.0 %) 3.1 Baso % (Auto ) (0 - 2.0 %) 0.8 Neut # (Auto) (1.5 - 7.0 10 3/uL) 4.11 Ly mph # (Auto) (1.50 - 4.00 10 3/uL) 0.97 L [place]ier # (Aut o) (0.20 - 0.80 10 3/uL) 0.54 Eos # (Auto) (0.0 - 0.5 10 3/ uL) 0.18 Baso # (Auto) (0.0 - 0.1 10 3/uL) 0.05 Abs Fatemeh t Gran (auto) (0.000 - 0.100 x10 3/uL) 0.040 Immature G ran % (0.0 - 1.0 %) 0.7 Nucleated RBC % (0 - 0.2 %) 0.0 Nu cleated RBCs # (0.000 - 0.012 10 3/uL) 0.000 Recent Impressions:RADIOLOGY - XR KNEE 3 V LT 07/03 065 0 Report Impression - Status: SIGNED Entered: 07/03/2022 0830 Impression: 1. Bone is intact. Thickened infrapa tellar soft tissues secondary totrauma. Impression By: Carlos SAHU - Jordi Soria MD Lab Imaging StatementLabora tory radiographic studies reviewed and considered in the medical decision-making. Point of Care TestingPulse Oxim etry Pulse Ox % 98 On: Room air Interpretation Interpreted by ks Time 0658 Re-Evaluation MDM Free Text MDM NotesFree T ext MDM NotesPatient evaluated for left knee pain acutel y after hitting the bed this morning. Patient is alert o riented, not in acute distress, vital signs stable. Her p hysical exam is notable for above findings; otherwise, unremarkable. My differential diagnosis after in itial evaluation includes left knee contusion versus l eft knee fracture. Mechanism and exam is less consistent with meniscus injury, ligament injury, knee dislocati on.To further evaluate this differential, I will order labs, [id number] glucose,left knee x-rayThe ED jose tment/plan of care will include IV fluid, 7 units subcutane ous insulin. Final Impression and Plan:My interpreta tion of the test results are left knee x-ray shows no acute fracture or dislocation. Infra patellar soft tissue thickeni ng, suggestive of contusion. Labs shows hyperglycemi a but otherwise no electrolyte abnormalities,corrected sodium normal, no leukocytosis or renal dysfunction. An emia noted.These results were reviewed with the patie nt and family. The most likely diagnosis is left knee c ontusion, hyperglycemia. Ruled out DKA.The disposition shravan n of care will include discharge with OTC analgesia for th e contusion and follow-up with PCP for repeat evaluation of hyperglycemia.I discussed the plan for follow-up as well as the criteria to return to the ED. Re-Evaluation/ProgressRe-Evaluation/Progress Sesar t/Dict NoteBlood sugar improved after IV fluids and sub cutaneous insulin Time of Re-Eval 1111 Re-Eval Status Impr erika Compartment SyndromeThere are no signs or sympto ms of compartment syndrome in the injured extremity at the time of this examination. Any pain the patient has is in proportion to the injury, the peripheral circula tion is intact, capillary refill is not delayed, and the re is no numbness, tingling or paresthesia. ED CourseMedi cation(s) OrderedMedication(s) Ordered:Central Nervous Sys tem Agents Sig/Chris Start time Last Medication Dose Route St op Time Status Admin Ketorolac 15 MG X1ED STA 07/03 1045 DC 07/03 Tromethamine IV 07/03 1046 0945 Ketorolac 30 MG X1ED STA 07/03 0908 CAN Tromethamine IM 07/03 0909 Electr olytic, Caloric, And Pablo Sig/Chris Start time Last Medicat ion Dose Route Stop Time Status Admin Sodium Chloride 1,0 00 ML X1ED STA 07/03 0933 DC 07/03 IV 07/03 0934 0940 Hormo polo And Synthetic Substit Sig/Chris Start time Last Medic ation Dose Route Stop Time Status Admin Insulin Human Regul ar 7 UNIT X1ED STA 07/03 0933 DC 07/03 SUBQ 07/03 0934 094 0 Patient Discharge Departure Vital Signs/ConditionVital S ignsFirst Documented: Result Date Time Pulse Ox 99 07/03 0642 B/P 135/70 07/03 0642 B/P Mean 91 07/03 0642 O2 Deli very Room air 07/03 641 Temp 98.0 07/03 0642 Pulse 90 0642 Resp 18 07/03 0542 Last Documented: Result Date Time Pulse Ox 96 07/03 1030 B/P 132/81 / 1030 B/P Mean 102 07/03 1030 Pulse 81 07/03 1030 Resp 22 07/03 1030 O2 D elivery Room air 07/03 641 Temp 98.0 07/03 0542 All vi terra signs available at the time of this entry have been re viewed. Condition Stable, Improved Clinical ImpressionCl inical ImpressionPrimary Impression: Left knee painSeco ndary Impressions: Anemia, Hyperglycemia Disposition DecisionDischarge )( Discharged to Home Yes )( T eduardo 1113 )( Date 07/03/22 Discharge/Care PlanCounseled Maria G magdaleno Diagnosis, Lab results, Imaging studies, Need fo r follow-up,When to return to EDPatient Instructio ns ED Anemia No Type Adult, ED Diabetes with High Bloo d Sugar,ED Soft Tissue ContusionAdditional InstructionsPlea se follow-up with your primary care doctor for repe at evaluation of your high blood sugar in the next few days. You may take ahcq-pii-ifneqma pain medication landin ch as ibuprofen every 6 hours or Tylenol every 6 hours as needed for your knee pain. Please return to the ER if y ou are experiencing worsening symptoms or any further concern.Departure FormsNORTH [place] PCP LISTWOR K/SCHOOL EXCUSE VARIABLE Discharge NoteI have spoken with the patient and/or caregivers. I have explained the patient'scondition, diagnoses and treatment plan based on the information available to meat this time. I h ave answered the patient's and/or caregiver's questi ons and addressed any concerns. The patient and/or careg kiana have as good an understanding of the patient's diagno sis, condition and treatment plan as can beexpected a t this point. The vital signs have been stable. The pat alix's condition is stable and appropriate for discharg e from the emergency department. The patient will pursue fu rther outpatient evaluation with the primary care phys ician or other designated or consulting physician as outl ined in the discharge instructions. The patient and/or careg kiana are agreeable to this planof care and follow-up inst ructions have been explained in detail. The patient and/o r caregivers have received these instructions in w ritten format and have expressed an understanding of th e discharge instructions. The patient and/or caregivers are aware that any significant change in condition or worsening of symptoms should prompt an immediate return to hospital for special surgery or the closest emergency department or a call to 911. at 1437RPT #:[id number] OF REPORTEDEmergency depart [facility] [id number]:56:[id number] vailable for patient [id number]:38:1 2 2022-06-23 [id number] [facility] 13:05:00 [place] ([facility]. Discharge Summary REPO RT #: [id number] REPORT STATUS: Signed DATE: 06/23/22 T EDUARDO: 1305 PATIENT: LIZZIE HINKLE UNIT #: [id number] ROOM #: NC.5104 BED: 1 : 3 AGE: 72 SEX: F ATTEND: Erasmo Fay MD ADM DT: AUTHOR: Erasmo Fay MD ATTENTION EDITS and/or ADDENDA must be made i n Patient Keeper for this note. Edits and ammendments created in [employer] are not visible in Patient Keeper or the legal medical record (HPF). -- PROBLEMS/PROCEDURES -- ADMISSIO N DATE:05/19/22 ADMITTING DIAGNOSES: - Blood in st ool - CAD (coronary artery disease) - Hypertension - Perip heral arterial disease - Type 1 diabetes mellitus with ketoacidosis without coma - Visual impairment FRIDA PALMERCHRISTIANO DATE:05/21/22 DISCHARGE DIAGNOSES: - Blood in st ool - CAD (coronary artery disease) - Hypertension - Perip heral arterial disease - Type 1 diabetes mellitus with ketoacidosis without coma - Visual impairment -- HOSPITAL COURSE -- HOSPITAL COURSE: 72yo with hx of uncon trolled DM presented to ED with lethargy, confusion andelev ated sugars. Was found to be in DKA and admitted for further treatment.This morning, she states she is feelin g better with sugars approaching morenormal ranges and an ion gap closing. Noted nausea with abd pain in the lastd ays but denies any fever/chills. Nursing noted bleeding, maroon/dark red incolor when cleaning patient up from rectal region with possible note ofhemorrhoidshe was treated with DKA protocol and impoved. She had o ccult blood in thestool GI consulted CT scan revealed large stool burden , bleedingthought to be due to hemorroids , bowel regimen started, will needcolonoscopy as an outp atient -- DISCHARGE MEDICATIONS -- ALLERGIES: codeine (Unk nown - Allergy)lisinopril (Severe - Allergy) DISCHARGE MEDICATIONS:Please refer to Discharge Medication list for a complete list of dischargemedicationsAnusol-HC r ectal suppository (hydrocortisone acetate) 1SUPP RECTA L BID, Disp:1 x 12 suppository, rectal box, Refills: 0A spirin Chewable Tab (Aspirin Chewable Tab) 81 MG PO TATIANA LYCefdinir Cap (Omnicef Cap) 300 MG PO Q12H X 7 days, Disp: 14 CAPSULES,Refills: 0Clopidogrel Tab (Plavix Tab) 75 MG PO DAILYDicyclomine Cap (Bentyl Cap) 10 MG PO TID P RN abdominal cramps/pain DME - GLUCOSE LANCET 1 EAC H MISC QID (Glucose Lancets of Choice DME - GLUCOSE LANCETS )DME - GLUCOSE STRIPS 1 EACH MISC QID (Glucose Strips o f Choice)DME - INSULIN PEN NE 1 EACH MISC ASDIR (I nsulin Pen [place] of choice. DME - INSULIN PEN NEEDLES)Tanya timibe Tab (Zetia Tab) 10 MG PO DAILYFamotidine Tab (Pepcid Tab) 20 MG PO L66HEOokamc 2.5 mg-25 mg-1 mg tablet (folic a malinda-vit B6-vit B12) 1 TAB PO DAILYInsulin (Glargine) Inj (Lantus Inj) 18 UNITS SUBQ QAMInsulin (Glargine) Inj (La ntus Inj) 18 UNITS SUBQ QAMInsulin Lispro InJ (HumaLOG Inj ) 0 UNITS SUBQ AC HSInsulin Lispro InJ (HumaLOG Inj) SUBQ AC HS (UNITSUNITS)Isosorbide Mononitrate ER Tab (Imdur Tab) 30 MG PO DAILYLantus Solostar 100 unit/mL (3 mL) subcu taneous insulin pen (insulin glargine)18 UNITS SUBQ QAM (Inject 18 units every morning.), Disp: 5 MILLILITERS,Refil ls: 2Metoprolol Succinate XL Tab (Toprol XL Tab) 25 MG PO DAILYmetroNIDAZOLE Tab (Flagyl Tab) 500 MG PO F7QLVkicwpfindgj Glycol Powder (Miralax Powder) 17 GM PO ASDIR (Take as per labelinstructions.), Disp: 30 PACKET, Refills: 0Polyethylene Glycol Powder (Miralax Po wder) 1PKT PO BID PRN constipation (use1st), Disp: 1 x 10 p acket, Refills: 0Ranexa tablet,extended release (ranola zine) 1000 MG PO BID -- DISCHARGE INSTRUCTIONS -- PK DISCHA RGE ORDERS:DC Order - No eCQM 2019.2 Details: Detail s:Order number: [id number]: PKDC - PK Discharge O rdersOrder status: Transmitted Details:Discharge order: Yes Discharge to: Home/Self CareDiet: Resume Home Diet/FeedsAc tivity: Resume Normal ActivityPCP: ALEXUS:Jens Fay MDPCP follow up timeframe: In 1-2 weeks Additional Dis charge Routines: PCP Follow-Up Ordered by: Fadumo Fay MD May 21, 2022 2:20pmEntered by: Erasmo Fay MD Service date: May 21, 2022 2:19pm Discharge w/Instructions:[facility] - PK Discharge Orders ERASMO COOK MD;In 1-2 weeks; ALEXUS:Jens Fay MD; PCP Follow-Up ADDTIONAL DISCHARGE INSTRUCTIONS:E mergency Instructions: The patient [facility] or call 911 should t heir symptoms return or worsen.; Signed in PatientKee per by Erasmo Fay MD on 06/23/22 at 13:07 Joselyn ctronically Signed by Erasmo Fay MD on 06/23/22 at 1307ATTENTION EDITS and/or ADDENDA must be ma de in Patient Keeper for this note. Edits and ammen dments created in [facility] are not visible in Patie nt Keeper or the legal medical record ([facility]). [facility] #: [id number] OF REPORT DSDischarge [id number]:05:[id number] 1AVAvailamelodie e for patient [id number]:08 :23 2022-06-09 [id number]:29:00 [facility] 22:29:00 [facility] ([facility])EMERGENCY PROVIDER REPORTREPORT#:[id number] REPORT STATUS: SignedDAT E:06/09/22 TIME: 2228 PATIENT: LIZZIE HINKLE UNIT #: [id number]#: [id number] ROOM: BED:AGE: 72 SEX: F PCP PHYS: Erasmo Fay MDSERVICE DT: 01/21 AUTHOR: Dheeraj Loco MD * ALL edits or amendments mu st be made on the electronic/computer document * HPI-Genera l Illness Free Text HPI NotesFree Text HPI NotesPatient Wi th history of hemorrhoids, diabetes brought in by EMS from home with no specific complaints. Patient report her husba nd called 911 because she was not having bowel movement, b ut she says she had a bowel movement today. Patientdenies an y complaints and would like to go home. Denies any chest pain, shortness of breath, nausea, vomiting, abd ominal pain, lightheadedness. GeneralInitial Greet Date /Time 06/09/220 PresentationChief Complaint rectal painHx Obtained From Patient, Family Review of Systems ROS StatementsAll systems rev neg except as marked. Past Medical History - AdultStated Complaint RECTAL P AIN SINCE 05/19AllergiesCoded Allergies:lisinopril (Severe, ANGIOEDEMA 02/20/22)codeine (DROWSINESS/very sleepy 2) Home MedicationsActive Scriptspolyethylene glycoL 335 0 (Miralax) 17 GM PO ASDIR polyethylene glycoL 3350 (Miralax ) 17 GM PO ASDIR #30 PACKET Prov: 04/18/22Cefdinir (Omnicef ) 300 MG PO Q12H 7 Days #14 CAPS Prov: 04/18/22Insulin Glarg ine (Lantus Solostar) 18 UNITS SUBQ QAM Insulin Glargine (La ntus Solostar) 18 UNITS SUBQ QAM #5 SYR Ref 2 Prov: 03/14/22Hydrocortisone (Anusol-Hc) 1 SUPP RECTAL BID Hydrocortisone (Anusol-Hc) 1 SUPP RECTAL BID #1 SUPPOSITORY, RECTAL BOX Prov: 05/21/22polyethyle ne glycoL 3350 (Miralax) 1 PKT PO BID PRN Constipation (Us e ) polyethylene glycoL 3350 (Miralax) 1 PKT PO BID PRN Constipation (Use 1st) #1 PACK Prov: 05/21/22 Re ported MedicationsMetoprolol Succ Xl (Toprol Xl) 25 MG PO DAILY Ezetimibe (Zetia) 10 MG PO DAILY Ranolazine Er ( Ranexa) 1,000 MG PO BID Isosorbide Mononitrate Sr (Imdur ) 30 MG PO DAILY [DME - INSULIN PEN NE] 1 EACH MISC ASDIR [ DME - GLUCOSE STRIPS] 1 EACH MISC QID [DME - GLUCOSE L ANCET] 1 EACH MISC QID Dicyclomine (Bentyl) 10 MG PO TID PRN ABDOMINAL CRAMPS/PAIN Metronidazole (Flagyl) 500 MG PO Q8HR Insulin Glargine (Lantus) 18 UNITS SUBQ QAM Aspi rin 81 MG PO DAILY Clopidogrel Bisulfate (Plavix) 75 MG PO DAILY Cyanocobalamin/Fa/Pyridoxine (Folbee) 1 TAB PO D AILY Insulin Lispro (Humalog) Famotidine (Pepcid) 20 MG PO Q12HR Insulin Glargine (Lantus) 18 UNITS SUBQ QAM Insu janki Lispro (Humalog) 0 UNITS SUBQ AC HS Additional Medical HistoryInsulin-dependent diabetes mellitus CAD h ypertension Hyperlipidemia Visual impairment Diabetic retinopathyAdditional Surgical HistoryNoneAlcoho l Use Denies EtOH useDrug Use Denies recreational drug sAdditional Social HistoryLives with spouse Physical Exam Vi terra SignsVital SignsFirst Documented: Result Date T eduardo Pulse Ox 95 06/09 2136 B/P 135/76 06/09 2136 B/P Mean 95 06/09 2136 O2 Delivery Room air 06/09 2136 Temp 98.5 0 06/09 2136 Pulse 86 06/09 2136 Resp 16 06/09 2136 Last Doc umented: Result Date Time Pulse Ox 99 06/09 2250 B/P 163 /93 06/09 2250 B/P Mean 116 06/09 2250 O2 Delivery Room ai r 06/09 2250 Temp 98.4 02/09 2251 Pulse 68 06/09 2250 Re sp 15 06/09 2250 Review of Vital Signs Reviewed Free Text PE NotesFree Text PE NotesGen: awake, alert, oriented, well a ppearing, not in acute distressEyes: PERRL, conjunctiva no rmal, EOMIHead/Neck: atraumatic, normocephalicENT: Air way patent, mucous membranes moist, uvula midline, normal oropharynxCardio: normal rate, rhythm, S1/S2. No murmurs/gallops/rubsPulm: breath sounds symmetri c bilat, no crackles/wheezingGI: Soft, non-tender, non-diste nded, no peritoneal signsMSK Upper extrm: inspection nl, no swelling, no deformity. Radial pulses symmetricM SK Lower extrm: inspection nl, no swelling/edema, no defo rmitySkin: warm, dry, no cyanosis, no diaphoresis,Neuro: A O x 3, moves all extremitiesPsych: normal mood, affect, thought content Interpretation Diagnostics Lab Results InterpretationConsiderations Reviewed prior rosana rds (prior admission records) Point of Care TestingPulse Ox imetry Pulse Ox % 99 On: Room air Interpretation Interp reted by me Time 2250 Re-Evaluation MDM Free Text MDM NotesF ree Text MDM NotesPatient has no specific complaints brou ght into ER by EMS because her called 911 stating sh e has not gone to have bowel movement. However, patient reeves d bowel movement today. She has history of constipation. Patient is alert oriented, not in acute distress, vital sig ns stable. Her physical exam is notable for above findings; otherwise, unremarkable. Abdomen is soft and nontender.My d ifferential diagnosis after initial evaluation includes anem ia, constipation, hemorrhoids. Low suspicion for SBO , fecal impaction.No specific work-up or treatment neede d at this time Final Impression and Plan: The disposition plan of care will include discharge with supportive care and follow-up with PCP for repeat evaluation. I disc ussed the plan for follow-up as well as the criteria to re turn to the ED. Patient Discharge Departure Vital Signs/Cond itionVital SignsFirst Documented: Result Date Time Pulse Ox 95 06/09 2136 B/P 135/76 06/09 2136 B/P Mean 95 06/09 7 O2 Delivery Room air 06/09 2136 Temp 98.5 06/09 21 37 Pulse 86 06/09 2136 Resp 16 06/09 2136 Last Documented: Result Date Time Pulse Ox 99 06/09 2250 B/P 163/93 06/09 1 B/P Mean 116 06/09 2250 O2 Delivery Room air 06/09 2250 Temp 98.4 06/09 2250 Pulse 68 06/09 2250 Resp 15 06/09 22 51 All vital signs available at the time of this entry have been reviewed. Condition Stable Clinical ImpressionCl inical ImpressionPrimary Impression: Wellness examinati on Disposition DecisionDischarge )( Discharged to H ome Yes )( Time 2232 )( Date 06/09/22 Discharge/Care PlanCo unseled Regarding Diagnosis, Need for follow-up, When to return to EDPatient Instructions ED Constipation (Adult)Ad ditional InstructionsPlease follow-up with your primary c are doctor in the next 2 days for repeat evaluation. Please return to the ER if you are experiencing any worsening sym ptoms or any further concern. Discharge NoteI have spoken with the patient and/or caregivers. I have explained the patient'scondition, diagnoses and treatment plan based on the information available to meat this time. I h ave answered the patient's and/or caregiver's questi ons and addressed any concerns. The patient and/or careg kiana have as good an understanding of the patient's diagno sis, condition and treatment plan as can beexpected a t this point. The vital signs have been stable. The pat ient's condition is stable and appropriate for discharg e from the emergency department. The patient will pursue fu rther outpatient evaluation with the primary care phys melva or other designated or consulting physician as outl ined in the discharge instructions. The patient and/or careg kiana are agreeable to this planof care and follow-up inst ructions have been explained in detail. The patient and/o r caregivers have received these instructions in w ritten format and have expressed an understanding of th e discharge instructions. The patient and/or caregivers are aware that any significant change in condition or worsening of symptoms should prompt an immediate return to hospital for special surgery or the closest emergency department or a call to 911. at 0818RPT #:[id number] OF REPORTEDEmergency depart ment [id number]:29:[id number] jeane for patient [id number]:27:3 7 2022-05-21 [id number]:14:00 [facility] 15:14:00 [place] [facility])Gastroenterology Prog. Note REPORT #: [id number] REPORT STATUS: Signed DATE: 05/21/22 T EDUARDO: 1514 PATIENT: LIZZIE HINKLE UNIT #: [id number] CCOUNT #: [id number] ROOM #: NC.5104 BED: 1 : 3 AGE: 72 SEX: F ATTEND: Erasmo Fay MD ADM DT: AUTHOR: Xuan Banuelos APRN ATTENTION EDITS and/or ADDENDA must be made i n Patient Keeper for this note. Edits and ammendments c reated in [facility] are not visible in Patient Keeper or the legal medical record (HPF). -- CO-SIGNATURE -- COMMENTS:The ca se was discussed on rounds with Xuan Banuelos NP. I rev iewed the ROS, PEand medications. I repeated pertinent por tions of the examination and reviewedthe relevant imaging and laboratory data. I agree with the findings, asse ssmentand plan as documented. Signed in PatientKeeper by PEGGY MOYA MD on 06/24/22 at 08:34 -- ASSESSMEN T AND PLAN -- PROBLEMS: 1: Rectal bleedingA/P: Likely 2/2 hemorrhoidsCT abd/pel w/ lg stool burden. +ve FO BTBowel regimen, Anucort HC w/lidocaineMonitor bowel hab its 2: AnemiaA/P: of chronic diseaseTrend H/H and trans fuse PRN, hgb stable 3: T1DM (type 1 diabetes mellitus)A/P : Carb controlPer primary -- SUBJECTIVE -- PATIENT NARR ATIVE:BM yesterday. none today. c/o rectal pain and decli polo suppositories -REVIEW OF SYSTEMS- GENERAL: Negat mirtha for fever, chills, unexplained weight loss, and fati gueEYES: BlindRESPIRATORY: Negative for shortness of rojas ath, cough, chest congestion, wheezing, hemoptysis, and pleu ritic painCARDIOVASCULAR: Negative for chest pain, pal pitations, dyspnea on exertion, orthopnea, edema and dizzinessGASTROINTESTINAL: -ve for abdominal tonia n, nausea, no vomiting, diarrhea, reports constipation and rectal painGENITOURINARY: Negative for dysuria, frequen cy, or urgency. No gross hematuria.NEUROLOGICAL: Negati ve for headache. No vertigo. Denies paresthesias.PSYCHI ATRIC: Negative for specific complaints. -- OBJECTIVE - - VITALS (05/20 15:14 - 05/21 15:14):Temperature C: 36.7 (36.4 - 36.8)Temperature source: OralPulse Rate 99 (79 - 99)Respiratory rate: 20 (17 - 20)BP: 121/69 (118 /68 - 142/80) I/Os (05/20 07:00 - 05/21 07:00):Net 250 Intake 250 -EXAM- GENERAL: Well developed, well nourished, in no apparent distress.NECK: No masses, no thyromegal y, no abnormal cervical nodes, trachea midline.LUNGS: Respirations unlabored, clear to auscultation bi laterally, no wheezing, no ronchi, no ralesHEART: Regular r ate and rhythm, normal S1, S2, no murmurs, no rubs, no gallops, no clicks.ABDOMEN: + BS soft, flat, nontender, the liver and spleen are not palpable, no palpable masses,EXTR EMITIES: No clubbing, cyanosis or edemaSKIN: No pallor, no j aundice, no rash, normal turgorLYMPH NODES: None palpable ce rvical, axillary, supraclavicular or inguinal locationsP SYCHIATRIC: Mood euthymic. Affect congruent, normal speech. -- DATA -- MEDICATIONS PANTOPRAZOLE with/in SODIUM CHLORIDE 0.9% 40 MG IV [id number] 5%-0.45% SALINE 1000 ML IV ASDI RPOTASSIUM BICARBONATE/CIT AC 20 MEQ PO ASDIRONDANSETRON HC L/PF 4 MG IV Q4H PRNINSULIN REGULAR, HUMAN with/in SODIUM CHLORIDE 100 mL BAG 100 UNIT IV ASDIRPOTASSIUM CHLORIDE 2 0 MEQ IV ASDIRINSULIN LISPRO 0 UNITS SUBQ AC HSSODIUM CHL ORIDE 0.9% 1000 ML IV ASDIRGLUCAGON 1 MG IM ASDIRDEXTROSE 5 0%-WATER 50 ML IV ASDIRMUPIROCIN 1 APPLIC NASAL BIDIPRATROPIUM/ALBUTEROL SULFATE 3 ML NEB RTQ6H PRNENOXAPARIN SODIUM 40 MG SUBQ [id number] GLAR GINE 18 UNITS SUBQ QAMpolyethylene glycoL 3350 1 PKT PO BIDHYDROCORTISONE ACETATE 1 SUPP RECTAL BIDhydrA LAZINE HCL 10 MG IV Q6H PRN SODIUM CHLORIDE 0.45% 1000 ML I V ASDIRACETAMINOPHEN 650 MG PO Q6H PRNLIDOCAINE HC L 2% 1 APPLIC TOPICAL BID LABS GLU BED (05/21/22 11:12) GLUBED 185 H GLU BED (05/21/22 07:28)GLUBED 182 H BASIC MET ABOLIC PANEL (05/21/22 06:00)SODIUM 136POTASSIUM 3.8CHL ORIDE 107CARBON DIOXIDE 25ANION GAP 7.8GLUCOSE 216H HB LOOD UREA NITROGEN 16GLOMERULAR FILTRATION RATE 54 LCREATI NINE 1.1BUN/CREATININE RATIO 14.5CALCIUM 8.5 FE W/TOT AL IRON BINDING CAP (05/21/22 06:00)IRON 45 LTOTAL IRON BINDING CAPACITY 197 ERIN SATURATION 23 CBC W/AUTO DIFF (05/21/22 06:00)WHITE BLOOD CELL 4.4L LRED BLOOD CELL 3.08 LHEMOGLOBIN 8.9L LHEMATOCRIT 27.4L LMEAN CELL V OLUME 89MEAN CELL HGB 28.9MEAN CELL HGB CONCENTRATION 32.5RED CELL DISTRIBUTION WIDTH 13.1PLATELET COUNT 212ME AN PLATELET VOLUME 10.8NEUTROPHIL % 53.5IMMATURE GRANULOCYTE % 1.4 HLYMPHOCYTE % 35.6MONOCYTE % 7.7EOSINOPHIL % 1. 1BASOPHIL % 0.7NUCLEATED RBC % 0.0NEUTROPHIL # 2.38IMMATURE GRANULOCYTE # 0.060LYMPHOCYTE # 1.58MONOCYTE # 0.34EOSINOPHI L # 0.05BASOPHIL # 0.03NUCLEATED RBC # 0.000 PHOS (0 05/21/22 06:00)PHOSPHOROUS 3.0 FERRITIN (05/21/22 06:00) FERRITIN 40 PHOS (05/21/22 04:00)PHOSPHOROUS 3.1 PHOS (05/21 00:37)PHOSPHOROUS 2.9 GLU BED (05/20/22 19:29)GL UBED 94 CBC W/AUTO DIFF (05/20/22 18:12)WHITE BLOOD CELL 5.2 RED BLOOD CELL 2.90 LHEMOGLOBIN 8.8L LHEMATOCRIT 25.7L LM KAMI CELL VOLUME 89MEAN CELL HGB 30.3MEAN CELL HGB CONCENT RATION 34.2RED CELL DISTRIBUTION WIDTH 13.1PLATELET COU NT 159MEAN PLATELET VOLUME 11.4NEUTROPHIL % 56.7IMMATURE GR ANULOCYTE % 1.0LYMPHOCYTE % 33.8MONOCYTE % 7.1EOSINOPHIL % 1.0BASOPHIL % 0.4NUCLEATED RBC % 0.0NEUTROPHIL # 2.98IMMATUR E GRANULOCYTE # 0.050LYMPHOCYTE # 1.77MONOCYTE # 0.37EOSINOPHIL # 0.05BASOPHIL # 0.02NUCLEATED RB C # 0.000 GLU BED (05/20/22 16:28)GLUBED 148 H Signed in PatientKeeper by Xuan Banuelos APRN on 3 at 16:01 Cosigned by PEGGY PEREZ MD on 06/24/22 at 08:34 at 0834 at 0834ATTENTION EDITS and/or ADDENDA must be ma de in Patient Keeper for this note. Edits and ammen dments created in [facility] are not visible in Patien t Keeper or the legal medical record (HPF). RPT #: [id number] OF REPORT PRProgress [id number]:14:[id number] Available for patient [id number]:35:3 8 2022-05-21 [id number]:20:00 [facility] 14:20:00 [place] [facility])Med Order Sheet REPORT #: [id number] REPORT STATUS: Signed DATE: 05/21/22 TIME: 1420 PATIENT : LIZZIE HINKLE UNIT #: [id number] #: [id number] ROOM #: NC.5104 BED: 1 : 3 AGE: 72 SEX: F ATTEND: Erasmo Fay MD ADM DT: AUTHOR: Erasmo Fay MD ATTENTION EDITS and/or ADDENDA must be made i n Patient Keeper for this note. Edits and ammendments c reated in [facility] are not visible in Patient Keeper or the legal medical record (HPF). Discharge Medication Reconciliatio n DISCHARGE MEDICATION LISTAnusol-HC rectal suppository (hyd rocortisone acetate) Dose: 1SUPP RECTAL BID, Disp: 1 x 12 landin ppository, rectal box, Refills: 0Insulin (Glargine) Inj (La ntus Inj) Dose: 18UNITS SUBQ QAMInsulin Lispro InJ (HumaLO G Inj) Dose: 0 UNITS SUBQ AC HSPolyethylene Glycol Powd er (Miralax Powder) Dose: 1PKT PO BID PRN constipation (use 1st), Disp: 1 x 10 packet,Refills: 0 STOPPED HOSPITAL MEDICA TIONSDc'd: 1/2NS (1/2NS) 1000ML 200 MLS/HR IV ASDIRDc'd: Ac etaminophen Tab(Tylenol Tab) 650MG PO Q6H PRN pain score 1-3 or temp>38.5cDc'd:Albuterol/Ipratrop Neb Soln (Duon eb Neb Soln) 3ML NEB RTQ6H PRNwheezing/shortness of rojas athDc'd: D5W-1/2NS (D5W-1/2NS) 1000ML 150 MLS/HR IVASDIRD c'd: Dextrose 50% Syringe (D50W Syringe) 50ML IV ASDI RDc'd: Yljmcrzfub44kw/0.4mL Inj (Lovenox 40mg/0.4mL Inj ) 40MG SUBQ Q24HDc'd: Glucagon Inj(Glucagon Inj) 1MG IM ASDI RDc'd: hydrALAZINE Inj (Apresoline Inj) 10MG IV Q6HPRN sbp greater than 170Dc'd: Insulin Regular Inj (HumuLIN R Inj ) 100UNITTITRATE IV ASDIRin Sodium Chloride 0.9% ( NS) 99MLDc'd: Lidocaine Jelly 2% 30mL (Xylocaine Jel ly 2% 30mL) 1 APPLIC TOPICALBIDDc'd: Mupirocin Ointment 2% ( Bactroban Ointment 2%) 1APPLIC NASAL BID X 10dosesDc'd: On dansetron Inj (Zofran Inj) 4MG IV Q4H PRN nausea andvomiti ngDc'd: Pantoprazole Inj (Protonix Inj) 40MG IV R30IQul Sodium Chloride0.9% (Nacl 0.9%) 10MLDc'd: Potassium Chl oride 20mEq IVPB (KCL 20mEq IVPB) 20MEQ 100 MLS/HR IVASDIRDc 'd: Potassium Effervescent Tab (Effer-K Tab Efferves cent) 20MEQ POASDIRDc'd: Sodium Chloride 0.9% (NS) 1000ML 20 0 MLS/HR IV ASDIRElectronicallySigned in PatientKeeper by Fadumo Fay on 05/21/22 14:19 Electronically Keila d by Erasmo Fay MD on 05/21/22 at 1420ATTENTION EDITS and/or ADDENDA must be ma de in Patient Keeper for this note. Edits and ammen dments created in [facility] are not visible in Patien t Keeper or the legal medical record (HPF). [facility] #: [id number] OF REPORT CLClinical [id number]:20:[id number] Available for patient [id number]:20:2 9 2022-05-21 [id number]:52:00 [facility] Camilla [facility] 13:52:00 [place] ([facility])Family Medicine Progress Note REPO RT #: [id number] REPORT STATUS: Signed DATE: 05/21/22 T EDUARDO: 1352 PATIENT: LIZZIE HINKLE UNIT #: [id number] CCOUNT #: [id number] ROOM #: [facility]5104 BED: 1 : 3 AGE: 72 SEX: F ATTEND: Erasmo Fay MD ADM DT: AUTHOR: Erasmo Fay MD ATTENTION EDITS and/or ADDENDA must be made i n Patient Keeper for this note. Edits and ammendments c reated in [facility] are not visible in Patient Keeper or the legal medical record (HPF). -- ASSESSMENT AND PLAN -- PROBLEMS : 1: Type 1 diabetes mellitus with ketoacidosis without coma A/P: admit to ICU - now on floorcont DKA protocolcrit care and endo followingtransition to basal/bolus insulin as ab le - tolerated welltolerating dietencourage no missed meds/reg sugar checks at home anion gap closed, toleratin g food and insulin DC home 2: Blood in stoolA/P: consult GI as FOB positivemonitor h/hf/u imaging - ct with large s tool burden at rectum - hemorrhoids, soft on examstart bowel regimen and f/u as outptlikely needs outpt cscope 3: Hyp ertension 4: CAD (coronary artery disease) 5: Visual impai rment 6: Peripheral arterial disease -- SUBJECTIVE -- HPI :no acute events no visible bleeding, no BM this morning, feeling OK; has a little nauseadiscussed with endocrine -REV IEW OF SYSTEMS- GENERAL: Negative for fever, chills, un explained weight loss, and fatigueRESPIRATORY: Negative fo r shortness of breath, cough, chest congestion, wheezing, he moptysis, and pleuritic painCARDIOVASCULAR: Negative for c hest pain, palpitations, dyspnea on exertion, orthopnea, ed venancio and dizzinessGASTROINTESTINAL: Negative for abdomina l pain, vomiting, diarrhea, constipation, and anorexiaGENITOURINARY: Negative for dysuria, mulugeta quency, or urgency. No gross hematuria. -- OBJECTIVE -- TALS (05/20 13:52 - 05/21 13:52):Temperature C: 36.7 (36.4 - 36.8)Temperature source: OralPulse Rate 99 (79 - 99)Respiratory rate: 20 (17 - 20)BP: 121/69 (11 8/68 - 142/80) I/Os (05/20 07:00 - 05/21 07:00):Net 250 Intake 250 -EXAM- GENERAL: Well developed, well nourished, in no apparent distress.NECK: No masses, no thyromegal y, no abnormal cervical nodes, trachea midline.LUNGS: Respirations unlabored, clear to auscultation bi laterally, no wheezing, no ronchi, no ralesHEART: Regular r ate and rhythm, normal S1, S2, no murmurs, no rubs, no g allops, no clicks.ABDOMEN: + BS soft, flat, nontender, the liver and spleen are not palpable, no palpable masses,EXTR EMITIES: No clubbing, cyanosis or edemaSKIN: No pallor, no j aundice, no rash, normal turgorLYMPH NODES: None palpable ce rvical, axillary, supraclavicular or inguinal locationsP SYCHIATRIC: Mood euthymic. Affect congruent, normal speech. -- DATA -- MEDICATIONS PANTOPRAZOLE with/in SODIUM CHLORIDE 0.9% 40 MG IV [id number] 5%-0.45% SALINE 1000 ML IV ASDI RPOTASSIUM BICARBONATE/CIT AC 20 MEQ PO ASDIRONDANSETRON HC L/PF 4 MG IV Q4H PRNINSULIN REGULAR, HUMAN with/in SODIUM CHLORIDE 100 mL BAG 100 UNIT IV ASDIRPOTASSIUM CHLORIDE 2 0 MEQ IV ASDIRINSULIN LISPRO 0 UNITS SUBQ AC HSSODIUM CHL ORIDE 0.9% 1000 ML IV ASDIRGLUCAGON 1 MG IM ASDIRDEXTROSE 5 0%-WATER 50 ML IV ASDIRMUPIROCIN 1 APPLIC NASAL BIDIPRATROPIUM/ALBUTEROL SULFATE 3 ML NEB RTQ6H PRNENOXAPARIN SODIUM 40 MG SUBQ [id number] GLAR GINE 18 UNITS SUBQ QAM polyethylene glycoL 3350 1 PKT PO BIDHYDROCORTISONE ACETATE 1 SUPP RECTAL BIDhydrA LAZINE HCL 10 MG IV Q6H PRNSODIUM CHLORIDE 0.45% 1000 ML IV ASDIRACETAMINOPHEN 650 MG PO Q6H PRNLIDOCAINE HC L 2% 1 APPLIC TOPICAL BID LABS GLU BED (05/21/22 11:12) GLUBED 185 H GLU BED (05/21/22 07:28)GLUBED 182 H BASIC ME TABOLIC PANEL (05/21/22 06:00)SODIUM 136POTASSIUM 3.8CHL ORIDE 107CARBON DIOXIDE 25ANION GAP 7.8GLUCOSE 216H H BLOOD UREA NITROGEN 16GLOMERULAR FILTRATION RATE 54 LCREATI NINE 1.1BUN/CREATININE RATIO 14.5CALCIUM 8.5 FE W/TOT AL IRON BINDING CAP (05/21/22 06:00)IRON 45 LTOTAL IRON BINDING CAPACITY 197 ERIN SATURATION 23 CBC W/AUTO DIF F (05/21/22 06:00)WHITE BLOOD CELL 4.4L LRED BLOOD CELL 3.08 LHEMOGLOBIN 8.9L LHEMATOCRIT 27.4L LMEAN CELL VO LUME 89MEAN CELL HGB 28.9MEAN CELL HGB CONCENTRATION 32.5RED CELL DISTRIBUTION WIDTH 13.1PLATELET COUNT 212MEAN PL ATELET VOLUME 10.8NEUTROPHIL % 53.5IMMATURE GRANULOCYT E % 1.4 HLYMPHOCYTE % 35.6MONOCYTE % 7.7EOSINOPHIL % 1.1 BASOPHIL % 0.7NUCLEATED RBC % 0.0NEUTROPHIL # 2.38IMMATURE GRANULOCYTE # 0.060LYMPHOCYTE # 1.58MONOCYTE # 0.34EOSINOPH IL # 0.05BASOPHIL # 0.03NUCLEATED RBC # 0.000 PHOS (0 05/21/22 06:00) PHOSPHOROUS 3.0 FERRITIN (05/21/22 06:00) FERRITIN 40 PHOS (05/21/22 04:00)PHOSPHOROUS 3.1 PHOS (05/21 00:37)PHOSPHOROUS 2.9 GLU BED (05/20/22 19:29)GL UBED 94 CBC W/AUTO DIFF (05/20/22 18:12)WHITE BLOOD CELL 5.2RED BLOOD CELL 2.90 LHEMOGLOBIN 8.8L LHEMATOCRIT 25. 7L LMEAN CELL VOLUME 89MEAN CELL HGB 30.3MEAN CELL HGB CO NCENTRATION 34.2RED CELL DISTRIBUTION WIDTH 13.1PLATELET COU NT 159MEAN PLATELET VOLUME 11.4NEUTROPHIL % 56.7IMMATURE G RANULOCYTE % 1.0LYMPHOCYTE % 33.8MONOCYTE % 7.1EOSINOPHIL % 1.0BASOPHIL % 0.4NUCLEATED RBC % 0.0NEUTROPHIL # 2.98IMMATURE GRANULOCYTE # 0.050LYMPHOCYTE # 1.7 7MONOCYTE # 0.37EOSINOPHIL # 0.05BASOPHIL # 0.02NUCLEATED R BC # 0.000 GLU BED (05/20/22 16:28)GLUBED 148 H Signed in PatientKeeper by Erasmo Fay MD on 05/02 05/23 at 14:16 at 1416ATTENTION EDITS and/or ADDENDA must be ma de in Patient Keeper for this note. Edits and ammen dments created in [facility] are not visible in Patien t Keeper or the legal medical record ([facility]). RPT #: [id number] OF REPORT PRProgress [id number] Available for patient [id number]:17:1 9 2022-05-21 [id number]:41:00 [facility] 13:[facility])Endocrinology Progress Note REPORT #: [id number] REPORT STATUS: Signed DATE: 05/21/22 T EDUARDO: 1341 PATIENT: LIZZIE HINKLE UNIT #: [id number] CCOUNT #: [id number] ROOM #: NC.5104 BED: 1 : 3 AGE: 72 SEX: F ATTEND: Erasmo Fay MD ADM DT: AUTHOR: Nini Doan MD ATTENTION EDITS and/or ADDENDA must be made i n Patient Keeper for this note. Edits and ammendments c reated in [facility] are not visible in Patient Keeper or the legal medical record ([facility]). -- ASSESSMENT AND PLAN -- PROBLEMS : 1: Type 1 diabetes mellitus with ketoacidosis without coma A/P: UNCONTROLLED (QCQH4J=28.9%,HYPERGLYCEMIA) TYPE I DM IN DKA. DKA RESOLVED:QJV=061 HS GLUCOSE=94 AG=7.8. OBSER VE ON PRESENT SQ BASAL/BOLUS INSULIN. MUSTHAVE A BEDTI ME SNACK. -- SUBJECTIVE -- CHIEF COMPLAINT:HYPERGLYCEMIA, DKA HPI: EVENTS NOTED. OUT OF ICU. EATING WELL. ATE BEDTI MESNACK. -REVIEW OF SYSTEMS- GENERAL: Negative for feverRESPIRATORY: Negative for dyspneaCARDIOVASC ULAR: Negative for palpitations.GASTROINTESTINAL: No diarrhea.ENDOCRINE: Negative for polyphagia, peter ydipsia, polyuria -- OBJECTIVE -- VITALS (05/20 13:41 - 0 05/21 13:41):Temperature C: 36.7 (36.4 - 36.8)Temperat ure source: OralPulse Rate 99 (79 - 99)Respiratory rate: 20 (17 - 20)BP: 121/69 (118/68 - 142/80) I/Os (05/20 07:0 0 - 05/21 07:00):Net 250Intake 250 -EXAM- GENERAL: Well de veloped, well nourished, in no apparent distress, THINHEA D: Normocephalic, atraumatic.EYES: LEGALLY BLINDNEC K: trachea midline. CHEST: Grossly normal appearance.LUNGS: NORMAL CHEST WALL MOVEMENTHEART: NO TACHYCARDIAABDOMEN: NON-DISTENDEDNEUROLOGICAL: NORMAL SPEECHPSYCHIAT ALPESH: Alert and oriented to time, person, place. -- DATA -- MEDICATIONS PANTOPRAZOLE with/in SODIUM CHLORIDE 0.9% 40 MG IV [id number] 5%-0.45% SALINE 1000 ML IV ASDIRPO TASSIUM BICARBONATE/CIT AC 20 MEQ PO ASDIRONDANSETRON HC L/PF 4 MG IV Q4H PRNINSULIN REGULAR, HUMAN with/in SODIUM CHLORIDE 100 mL BAG 100 UNIT IV ASDIRPOTASSIUM CHLORIDE 2 0 MEQ IV ASDIRINSULIN LISPRO 0 UNITS SUBQ AC HSSODIUM CHL ORIDE 0.9% 1000 ML IV ASDIRGLUCAGON 1 MG IM ASDIRDEXTROSE 5 0%-WATER 50 ML IV ASDIRMUPIROCIN 1 APPLIC NASAL BIDIPRATROPIUM/ALBUTEROL SULFATE 3 ML NEB RTQ6H PRNENOXAPARIN SODIUM 40 MG SUBQ [id number] GLAR GINE 18 UNITS SUBQ QAMpolyethylene glycoL 3350 1 PKT PO BIDHYDROCORTISONE ACETATE 1 SUPP RECTAL BIDhydrA LAZINE HCL 10 MG IV Q6H PRNSODIUM CHLORIDE 0.45% 1000 ML IV ASDIRACETAMINOPHEN 650 MG PO Q6H PRNLIDOCAINE HC L 2% 1 APPLIC TOPICAL BID LABS GLU BED (05/21/22 11:12) GLUBED 185 H GLU BED (05/21/22 07:28)GLUBED 182 H BASIC MET ABOLIC PANEL (05/21/22 06:00)SODIUM 136POTASSIUM 3.8CHL ORIDE 107CARBON DIOXIDE 25ANION GAP 7.8GLUCOSE 216H H BLOOD UREA NITROGEN 16GLOMERULAR FILTRATION RATE 54 LCREATI NINE 1.1BUN/CREATININE RATIO 14.5CALCIUM 8.5 FE W/TO TERRA IRON BINDING CAP (05/21/22 06:00)IRON 45 LTOTAL IRON BINDING CAPACITY 197 ERIN SATURATION 23 CBC W/AUTO DIFF (05/21/22 06:00)WHITE BLOOD CELL 4.4L L RED BLOOD CELL 3.0 8 LHEMOGLOBIN 8.9L LHEMATOCRIT 27.4L LMEAN CELL VO LUME 89MEAN CELL HGB 28.9MEAN CELL HGB CONCENTRATION 32.5RED CELL DISTRIBUTION WIDTH 13.1PLATELET COUNT 212MEAN PL ATELET VOLUME 10.8NEUTROPHIL % 53.5IMMATURE GRANULOCYT E % 1.4 HLYMPHOCYTE % 35.6MONOCYTE % 7.7EOSINOPHIL % 1.1 BASOPHIL % 0.7NUCLEATED RBC % 0.0NEUTROPHIL # 2.38IMMATURE GRANULOCYTE # 0.060LYMPHOCYTE # 1.58MONOCYTE # 0.34EOSINOPHI L # 0.05BASOPHIL # 0.03NUCLEATED RBC # 0.000 PHOS (0 05/21/22 06:00)PHOSPHOROUS 3.0 FERRITIN (05/21/22 06:00)F ERRITIN 40 PHOS (05/21/22 04:00)PHOSPHOROUS 3.1 PHOS (05/21 00:37)PHOSPHOROUS 2.9 GLU BED (05/20/22 19:29)GL UBED 94 CBC W/AUTO DIFF (05/20/22 18:12)WHITE BLOOD CELL 5.2 RED BLOOD CELL 2.90 LHEMOGLOBIN 8.8L LHEMATOCRIT 25.7L LME AN CELL VOLUME 89MEAN CELL HGB 30.3MEAN CELL HGB CONCENT RATION 34.2RED CELL DISTRIBUTION WIDTH 13.1PLATELET COU NT 159MEAN PLATELET VOLUME 11.4NEUTROPHIL % 56.7IMMATURE G RANULOCYTE % 1.0LYMPHOCYTE % 33.8MONOCYTE % 7.1EOSINOPHIL % 1.0BASOPHIL % 0.4NUCLEATED RBC % 0.0NEUTROPHIL # 2.98IMMATURE GRANULOCYTE # 0.050LYMPHOCYTE # 1.7 7 MONOCYTE # 0.37EOSINOPHIL # 0.05BASOPHIL # 0.02NUCLEATED RBC # 0.000 GLU BED (05/20/22 16:28)GLUBED 148 H -- AT TESTATION -- TIME SPENT ON PATIENT CARE: - Direct 30 minut es CARE ACTIVITIES / CARE COORDINATION: - I have reviewe d the history and repeated the ingram elements - I have s een and examined this patient - I have reviewed the prog ress in the clinical course since the lastexamination - I reeves ve discussed the patient's condition with other mem bers of the care team ADDITIONAL DETAIL:I HAVE SPENT 30 DELIA SUSAN IN THE EVALUATION AND TREATMENT OF THIS PATIENT. Signed in PatientKeeper by Nini Doan MD on at 13:43 at 1343ATTENTION EDITS and/or ADDENDA must be ma de in Patient Keeper for this note. Edits and ammen dments created in [facility] are not visible in Patien t Keeper or the legal medical record ([facility]). RPT #: [id number] OF REPORT PRProgress [id number]:41:[id number] Available for patient [id number]:44:3 7 2022-05-20 [id number]:34:00 [facility] 23:34:00 [place] ([facility])Family Medicine Progress Note REPO RT #: [id number] REPORT STATUS: Signed DATE: 05/20/22 T EDUARDO: 2334 PATIENT: LIZZIE HINKLE UNIT #: [id number] CCOUNT #: [id number] ROOM #: NC.5104 BED: 1 : 3 AGE: 72 SEX: F ATTEND: Erasmo Fay MD ADM DT: AUTHOR: Britney Winchester DO ATTENTION EDITS and/or ADDENDA must be made i n Patient Keeper for this note. Edits and ammendments c reated in [facility] are not visible in Patient Keeper or the legal medical record ([facility]). -- ASSESSMENT AND PLAN -- PROBLEMS : 1: Type 1 diabetes mellitus with ketoacidosis without coma A/P: admit to ICU - now on floorcont DKA protocolcrit care and endo followingtransition to basal/bolus insulin as ab le - tolerated welltolerating dietencourage no missed meds/reg sugar checks at home anion gap closed, toleratin g food and insulin 2: Blood in stoolA/P: consult GI as FOB positivemonitor h/hf/u imaging - ct with large s tool burden at rectum - hemorrhoids, soft on examstart bowel regimen and f/u as outptlikely needs outpt cscope plan o n d/c tomorrow if h/h stable 3: Hypertension 4: CAD (c oronary artery disease) 5: Visual impairment 6: Peripher al arterial disease -- SUBJECTIVE -- PATIENT NARRATIVE:feeli ng better, eating well. sugars improved. passed a lot of da rk red clotslast night, daughter states difficulty with getting pt to doctor. pt reportssome mild abd pain -REVIEW OF SYSTEMS- GENERAL: Negative for fever, chills, unexplained weight loss, and fatigueRESPIRATORY: Negative for short ness of breath, cough, chest congestion, wheezing, hemop tysis, and pleuritic painCARDIOVASCULAR: Negative for chest pain, palpitations, dyspnea on exertion, orthopnea, ed venancio and dizzinessGASTROINTESTINAL: Pos for abdominal tonia n, nausea, no vomiting, diarrhea, constipation, and anorexiaGENITOURINARY: Negative for dysuria, mulugeta quency, or urgency. No gross hematuria. -- OBJECTIVE -- VIT ALS (05/20 07:25 - 05/21 07:25):Temperature C: 36.7 (36.4 - 36.7)Temperature source: OralPulse Rate 79 (79 - 96)Respiratory rate: 17 (17 - 20)BP: 127/75 (118 /68 - 142/84) I/Os (05/20 07:00 - 05/21 07:00):Net 250 Intake 250 -EXAM- GENERAL: Well developed, well nourished, in no apparent distress.EYES: chronic changes to R ey e, EOM intact.NECK: No masses, no thyromegaly, no abnor mal cervical nodes, trachea midline.LUNGS: Respirati ons unlabored, clear to auscultation bilaterally, no wheezing, no ronchi, no ralesHEART: Regular rate and rhyth m, normal S1, S2, no murmurs, no rubs, no gallops, no clic ks.ABDOMEN: + BS soft, flat, nontender, the liver and spleen are not palpable, no palpable masses, no herniasEXTREMIT IES: No clubbing, cyanosis or edemaRECTAL: soft, hemorrh oids present with red/mucousy stool presentSKIN: No p allor, no jaundice, no rash, normal turgorLYMPH NODES: Non e palpable cervical, axillary, supraclavicular or inguinal locationsPSYCHIATRIC: Mood euthymic. Affect jonathan ruent, normal speech. -- DATA -- MEDICATIONS PANTOPRAZO LE with/in SODIUM CHLORIDE 0.9% 40 MG IV [id number] 5%-0 .45% SALINE 1000 ML IV ASDIRPOTASSIUM BICARBONATE/CIT AC 20 MEQ PO ASDIRONDANSETRON HCL/PF 4 MG IV Q4H PRNINSULIN R EGULAR, HUMAN with/in SODIUM CHLORIDE 100 mL BAG 100 UNI T IV ASDIRPOTASSIUM CHLORIDE 20 MEQ IV ASDIRINSULIN L ISPRO 0 UNITS SUBQ AC HSSODIUM CHLORIDE 0.9% 1000 ML IV ASDIRGLUCAGON 1 MG IM ASDIRDEXTROSE 50%-WATER 50 ML IV ASDIRMUPIROCIN 1 APPLIC NASAL BIDIPRATROPIUM/ALB UTEROL SULFATE 3 ML NEB RTQ6H PRNENOXAPARIN SODIUM 40 M G SUBQ Q24H polyethylene glycoL 3350 1 PKT PO BIDHYDROCORTIS ONE ACETATE 1 SUPP RECTAL BIDhydrALAZINE HCL 10 MG IV Q6H IA NSODIUM CHLORIDE 0.45% 1000 ML IV ASDIRINSULIN GLARGINE 18 UNITS SUBQ QAMACETAMINOPHEN 650 MG PO Q6H PRN LABS BAS IC METABOLIC PANEL (05/21/22 06:00)SODIUM 136POTASS IUM 3.8CHLORIDE 107CARBON DIOXIDE 25ANION GAP 7.8GLU COSE 216H HBLOOD UREA NITROGEN 16GLOMERULAR FILTRATION RAT E 54 LCREATININE 1.1BUN/CREATININE RATIO 14.5CALCIUM 8.5 FE W/TOTAL IRON BINDING CAP (05/21/22 06:00)IRON 45 LTOTAL IRON BINDING CAPACITY 197 ERIN SATURATION 23 CB C W/AUTO DIFF (05/21/22 06:00)WHITE BLOOD CELL 4.4L LRED BLOOD CELL 3.08 LHEMOGLOBIN 8.9L LHEMATOCRIT 27.4L LMEAN CE LL VOLUME 89MEAN CELL HGB 28.9MEAN CELL HGB CONCENTRATION 32.5RED CELL DISTRIBUTION WIDTH 13.1PLATELET COUNT 212ME AN PLATELET VOLUME 10.8NEUTROPHIL % 53.5IMMATURE GRANULOCYTE % 1.4 HLYMPHOCYTE % 35.6MONOCYTE % 7.7EOSINOPHIL % 1.1 BASOPHIL % 0.7NUCLEATED RBC % 0.0NEUTROPHIL # 2.38IMMATURE GRANULOCYTE # 0.060LYMPHOCYTE # 1.58MONOCYTE # 0.34EOSINOPHI L # 0.05BASOPHIL # 0.03NUCLEATED RBC # 0.000 PHOS ( 05/21/22 06:00)PHOSPHOROUS 3.0 FERRITIN (05/21/22 06:00)F ERRITIN 40 PHOS (05/21/22 04:00) PHOSPHOROUS 3.1 PHOS (05/02 05/23 00:37)PHOSPHOROUS 2.9 GLU BED (05/20/22 19:29)GL UBED 94 CBC W/AUTO DIFF (05/20/22 18:12)WHITE BLOOD CELL 5. 2RED BLOOD CELL 2.90 LHEMOGLOBIN 8.8L LHEMATOCRIT 25.7L LME AN CELL VOLUME 89MEAN CELL HGB 30.3MEAN CELL HGB CONCENT RATION 34.2RED CELL DISTRIBUTION WIDTH 13.1PLATELET COU NT 159MEAN PLATELET VOLUME 11.4NEUTROPHIL % 56.7IMMATURE GR ANULOCYTE % 1.0LYMPHOCYTE % 33.8MONOCYTE % 7.1EOSINOPHIL % 1 .0BASOPHIL % 0.4NUCLEATED RBC % 0.0NEUTROPHIL # 2.98IMMATUR E GRANULOCYTE # 0.050LYMPHOCYTE # 1.77MONOCYTE # 0.37EOSINOPHIL # 0.05BASOPHIL # 0.02NUCLEATED R BC # 0.000 GLU BED (05/20/22 16:28)GLUBED 148 H GLU BED ( 12:06)GLUBED 164 H GLU BED (05/20/22 08:11)GLUBE D 68 L Signed in PatientKeeper by BRITNEY WINCHESTER DO on 05/21/22 at 07:29 at 0729ATTENTION EDITS and/or ADDENDA must be ma de in Patient Keeper for this note. Edits and ammen dments created in [facility] are not visible in Patie nt Keeper or the legal medical record ([facility]). RPT #: [id number] OF REPORT PRProgress [id number]:[id number] Available for patient [id number]:30:1 8 2022-05-20 [id number]:05:00 [facility] 15:05:00 [facility] ([facility])Pulmonology Progress Note REPORT # : [id number] REPORT STATUS: Signed DATE: 05/20/22 TIME: 1505 PATIENT: LIZZIE HINKLE UNIT #: [id number] # : [id number] ROOM #: NC.5104 BED: 1 : 3 AGE: 72 SEX: F ATTEND: Erasmo Fay MD ADM DT: AUTHOR: Landry Marques MD ATTENTION EDITS and/or ADDENDA must be made i n Patient Keeper for this note. Edits and ammendments created in [facility] are not visible in Patient Keeper or the legal medical record ([facility]). -- ASSESSMENT AND PLAN -- GENERAL ASSESSMENT: [facility] BztptowczlCBWPhlhivusewzxK6UFkmfcjma PADChronic CADCKD stage IIIb 2/2 diabetic nephropathyelectrolyte abnormalitydiabetic retinopathyhypovolemia 2/2 dehydrationCOPD Plan: Pulm-Monitor pulse oximetr yGoal SPO2 greater than 90%, on room aircxr showed emphysem a, mild interstitial prominenceLung windows of CT abdome n clearCOVID negativeduoneb prn Follow H HReplate lytes as neededOn Lantus/SSI, Endocrine following DVT ppx : SCDs, lovenox Discussed all the above with Jaylon boland Pulmonary interventions, please call with questi ons Subjective: Noted e vents, on RAResting comfortablyNo new complaintsNoted low BS this am HPI:Lizzie Hinkle is a 72-year-old female with a past medical history of type 1diabetes, CKD, hyperten jamila, hyperlipidemia coronary artery disease, peripher alartery disease who is presenting to the emergency depar tment due tohyperglycemia. Patient had a fingerstick blood glucose of 587 at home andhusband called EMS. Patient was r ecently hospitalized here in March 2022 forDKA as wel l. Patient states that she takes 30 units of long-acting an d 20 unitsat mealtime but no recent changes to her re gimen. Patient states that herhusband gives her insulin however he gets busy with house chores and is unableto get it. He also has several other medical problems takes himself andoccasionally forgets to give her insulin. Sarai thomson states that for the last 3days she has not been getting her insulin injections. Patient has a daughterwho tr ies to help her symptoms but she is also busy and cannot com elbert longertime. In ER labs are significant for hyper glycemia, acidosis with VBG showing 7.15,and anion gap of 21. Patient was started on insulin drip DKA protocol. Past m edical history: CAD PAD CKD diabetic retinopathy diabet ic nephropathyPSurgHx: retinal surgeries, hysterect omyFamHx: HTNSocHx: former smoker. no alcohol or drugs Rev iew of systems: 14 point review system negative unless listed above Physical ExamGeneral: NAD, awake and alert . Chronically ill appearingEyes: Anicteric sclerae . bilateral blindnessMouth: dry mucous membranesNeck: Supple .CV: RRR. Normal S1 and S2.Pulm: Good effort, no wheezing or Rales appreciated.Abdomen: Soft, nontender.BS+Extremit ies: No lower extremity edema.Skin: Warm, dry.Neuro: Camilla ke and alert, no focal neurological deficitPsych: shannan l mood -- OBJECTIVE -- VITALS (05/19 15:05 - 05/20 15:05): Temperature C: 36.5 (36.5 - 36.7)Temperature source: OralPul se Rate 95 (82 - 95)Respiratory rate: 20 (17 - 20)BP: 122/8 4 (103/62 - 142/84) -- DATA -- MEDICATIONS PANTOPRAZOLE with /in SODIUM CHLORIDE 0.9% 40 MG IV [id number] 5%-0.45% SA LINE 1000 ML IV ASDIRPOTASSIUM BICARBONATE/CIT AC 20 MEQ P O ASDIRONDANSETRON HCL/PF 4 MG IV Q4H PRN INSULIN REGULAR, HUMAN with/in SODIUM CHLORIDE 100 mL BAG 100 UNI T IV ASDIRPOTASSIUM CHLORIDE 20 MEQ IV ASDIRINSULIN L ISPRO 0 UNITS SUBQ AC HSSODIUM CHLORIDE 0.9% 1000 ML IV ASDIRGLUCAGON 1 MG IM ASDIRDEXTROSE 50%-WATER 50 ML IV ASDIRMUPIROCIN 1 APPLIC NASAL BIDIPRATROPIUM/ALB UTEROL SULFATE 3 ML NEB RTQ6H PRNENOXAPARIN SODIUM 40 M G SUBQ [id number] ACETATE 1 SUPP RECTAL BIDhydr ALAZINE HCL 10 MG IV Q6H PRNSODIUM CHLORIDE 0.45% 1000 ML IV ASDIRINSULIN GLARGINE 18 UNITS SUBQ QAMACETAMINO PHEN 650 MG PO Q6H PRN LABS GLU BED (05/20/22 12:06)GLUBED 1 64 H GLU BED (05/20/22 08:11)GLUBED 68 L CBC W/AUTO DIFF (05/20/22 05:19)WHITE BLOOD CELL 6.8RED BLOOD CELL 3.28 LH EMOGLOBIN 9.8L LHEMATOCRIT 29.3L LMEAN CELL VOLUME 89MEAN CELL HGB 29.9MEAN CELL HGB CONCENTRATION 33.4RED CELL DIS TRIBUTION WIDTH 12.9PLATELET COUNT 235MEAN PLATELET VOLUME 11.2NEUTROPHIL % 60.0IMMATURE GRANULOCYTE % 1.6 HLYMPHOCYTE % 29.4MONOCYTE % 7.6EOSINOPHIL % 1.0 BASOPHIL % 0.4NUCLEATED RBC % 0.0NEUTROPHIL # 4.08IMMATURE GRANULOCYTE # 0.110 HLYMPHOCYTE # 2.00MONOCYTE # 0.52EOSINOP HIL # 0.07BASOPHIL # 0.03NUCLEATED RBC # 0.000 PHOS (0 05/20/22 05:19)PHOSPHOROUS 2.4 L GLU BED (05/19/22 19:43) GLUBED 146 H HGB amp; HCT (05/19/22 19:32)HEMOGLOBIN 10.5 L HEMATOCRIT 31.9 L GLU BED (05/19/22 18:10) GLUBED 85 PHOS ( 05/19/22 16:45)PHOSPHOROUS 3.2 CBC W/AUTO DIFF (05/19/22 16:45)WHITE BLOOD CELL 9.0RED BLOOD CELL 3.60HEMOGLOBIN 10.7 L LHEMATOCRIT 32.5L LMEAN CELL VOLUME 90 DMEAN CE LL HGB 29.7MEAN CELL HGB CONCENTRATION 32.9RED CELL DIS TRIBUTION WIDTH 13.1PLATELET COUNT 227MEAN PLATELET VOLUME 11.3NEUTROPHIL % 63.2IMMATURE GRANULOCYTE % 2.0 HLYMPHOCYTE % 26.4MONOCYTE % 7.5EOSINOPHIL % 0.3BASOPHIL % 0.6NUCLEATED RBC % 0.0NEUTROPHIL # 5.71IMMATURE GRANULOCYTE # 0.180 HLYMPHOCYTE # 2.39MONOCYTE # 0.68EOSINOP HIL # 0.03BASOPHIL # 0.05NUCLEATED RBC # 0.000 Signed in PatientKeeper by Landry Marques MD on 05/20/22 at 15:09 at 1509ATTENTION EDITS and/or ADDENDA must be ma de in Patient Keeper for this note. Edits and ammen dments created in [facility] are not visible in Patien t Keeper or the legal medical record ([facility]). RPT #: [id number] OF REPORT PRProgress [id number]:05:[id number] Available for patient [id number]:13:3 6 2022-05-20 [id number]:01:00 [facility] 15:01:00 [facility] ([facility])Gastroenterology Consult REPORT # : [id number] REPORT STATUS: Signed DATE: 05/20/22 TIME: 1501 PATIENT: LIZZIE HINKLE UNIT #: [id number] #: [id number] ROOM #: TN.5104 BED: 1 : 3 AGE: 72 SEX: F ATTEND: Erasmo Fay MD ADM DT: AUTHOR: Darlene Hansen NP ATTENTION EDITS and/or ADDENDA must be made i n Patient Keeper for this note. Edits and ammendments c reated in [facility] are not visible in Patient Keeper or the legal medical record ([facility]). -- CO-SIGNATURE -- COMMENTS:The ca se was discussed on rounds with Darlene Hansen NP. I reviewed the HPI,FH, SH, ROS, PE and medications. I repea sarah beth pertinent portions of theexamination and reviewe d the relevant imaging and laboratory data. I agree wi ththe findings, assessment and plan as documented. Sig rudi in PatientKeeper by PEGGY PEREZ MD on 06/02 07/21 at 10:52 -- ASSESSMENT AND PLAN -- PROBLEMS: 1: Rec terra bleedingA/P: Likely 2/2 hemorrhoidsCT abd/pel w/ lg stool burden. +ve FOBTBowel regimen, start Anucort HCM onitor bowel habits 2: AnemiaA/P: Trend H/H and transfu se PRNFollow iron panel 3: T1DM (type 1 diabetes me llitus)A/P: Carb controlPer primary ADDITIONAL COMMENTS:Than k you for this consultation. Will continue to follow. -- H ISTORY -- CONSULT REQUESTED BY:Britney Winchester DO DATE/MARY JO Choudhary AT BEDSIDE:2022-05-20 15:01 REASON FOR CONSULT:GI b erma CHIEF COMPLAINT: ams, hyperglycemia HPI:72yo with h/o uncontrolled DM presented with lethargy, confusi on and elevatedsugars. Was found to be in DKA and admit sarah beth for further treatment. Nursingnoted bleeding, maroon /dark red in color when cleaning patient up from rectalreg ion with possible note of hemorrhoid. GI consulted for fu rther evaluationand managment. Reports having rectal p ain due to constipation. Having bowelmovements. Last colono scopy 3 months ago, per pt report. Denies nausea,vomitin g, and abdominal pain. PAST MEDICAL HISTORY:DM, HTN, CA D, diabetic retinopathy,, blind in R eye, diabetic nephropathy,hyperlipidemia, CKD hospitalized for DKA mult times PAST SURGICAL HISTORY:multiple retinal jimenez geries, hysterectomy -- ALLERGIES/HOME MEDS -- ALLERGIES :codeine (Unknown - Allergy)lisinopril (Severe - Allergy) HOME MEDICATIONS:Aspirin Chewable Tab (Aspirin Chewab le Tab) 81 MG PO DAILYClopidogrel Tab (Plavix Tab) 75 MG PO DAILYDicyclomine Cap (Bentyl Cap) 10 MG PO TIDEz etimibe Tab (Zetia Tab) 10 MG PO DAILYFamotidine Tab (Pepcid Tab) 20 MG PO [id number] 2.5 mg-25 mg-1 mg tablet (folic a malinda-vit B6-vit B12) 1 TAB PO DAILYInsulin (Glargine) Inj (Lantus Inj) 18 UNITS SUBQ QAMInsulin Lispro InJ (HumaLO G Inj) SUBQ AC HSIsosorbide Mononitrate ER Tab (Imdur Tab) 3 0 MG PO DAILYLantus Solostar 100 unit/mL (3 mL) subcutan eous insulin pen (insulin glargine)18 UNITS SUBQ QAMM ed Rec Order Def 1 EACH MISC ASDIRMed Rec Order Def 1 E [facility] QIDMed Rec Order Def 1 EACH [facility] QIDMetoprolol S uccinate XL Tab (Toprol XL Tab) 25 MG PO DAILYmetroNIDAZOLE Tab (Flagyl Tab) 500 MG PO [id number] tablet,extended releas e (ranolazine) 1000 MG PO BID -- SUBJECTIVE -- -RE VIEW OF SYSTEMS- GENERAL: Negative for fever, chills, un explained weight loss, and fatigueEYES: BlindRESPIRATORY: Negative for shortness of breath, cough, chest congestion , wheezing, hemoptysis, and pleuritic painCARDIOVASCULAR: Ne gative for chest pain, palpitations, dyspnea on exertion, o rthopnea, edema and dizzinessGASTROINTESTINAL: Pos for abd ominal pain, nausea, no vomiting, diarrhea, constipatio n, and anorexiaGENITOURINARY: Negative for dysuria, mulugeta quency, or urgency. No gross hematuria.NEUROLOGICAL: Negat mirtha for headache. No vertigo. Denies paresthesias. PSYCH IATRIC: Negative for specific complaints. -- OBJECTIVE - - VITALS (05/19 11:00 - 05/20 11:00):Temperature C: 36.6 (36.5 - 36.7)Temperature source: OralPulse Rate 85 (82 - 90)Respiratory rate: 20 (17 - 20)BP: 142/84 (103 /62 - 142/84) -EXAM- GENERAL: Well developed, well nou rished, in no apparent distress.HEAD: Normocephalic, atraum atic.EYES: chronic changes to R eye, EOM intact.NECK: Suppl e, trachea midline.CHEST: Grossly normal appearance.LUNGS: Respirations unlabored, clear to auscultation bi laterally, no wheezingHEART: Regular rate and rhythm, shannan l S1, S9IPPAUMT: + BS soft, flat, nontender, the liver and spleen are not palpable, no palpable masses, no herniasEXTREMITIES: No clubbing, cyanosis or edemaNEUROLOGICAL: No focal deficitsSKIN: No pal johann, no jaundice, no rash, normal turgorPSYCHIATRIC: Moo d euthymic. Affect congruent, normal speech. -- DATA -- MEDI CATIONS DEXTROSE 5%-0.45% SALINE 1000 ML IV ASDIRPOTASSI UM BICARBONATE/CIT AC 20 MEQ PO ASDIRONDANSETRON HC L/PF 4 MG IV Q4H PRNINSULIN REGULAR, HUMAN with/in SODIUM CHLORIDE 100 mL BAG 100 UNIT IV ASDIRPOTASSIUM CHLORIDE 2 0 MEQ IV ASDIRINSULIN LISPRO 0 UNITS SUBQ AC HSSODIUM CHL ORIDE 0.9% 1000 ML IV ASDIRGLUCAGON 1 MG IM ASDIRDEXTROSE 5 0%-WATER 50 ML IV ASDIRMUPIROCIN 1 APPLIC NASAL BIDIPRATROPIUM/ALBUTEROL SULFATE 3 ML NEB RTQ6H PRNENOXAPARIN SODIUM 40 MG SUBQ [id number] HCL 10 MG IV Q6H PRNSODIUM CHLORIDE 0.45% 1000 ML IV ASDIR INSULIN GLARGINE 18 UNITS SUBQ QAMACETAMINOPHEN 650 MG P O Q6H PRN LABS GLU BED (05/20/22 08:11)GLUBED 68 L CBC W/A UTO DIFF (05/20/22 05:19)WHITE BLOOD CELL 6.8RED BLOOD CE LL 3.28 LHEMOGLOBIN 9.8L L HEMATOCRIT 29.3L LMEAN CELL V OLUME 89MEAN CELL HGB 29.9MEAN CELL HGB CONCENTRATION 33.4RED CELL DISTRIBUTION WIDTH 12.9PLATELET COUNT 235ME AN PLATELET VOLUME 11.2NEUTROPHIL % 60.0IMMATURE GRANULOCYTE % 1.6 HLYMPHOCYTE % 29.4MONOCYTE % 7.6EOSINOPHIL % 1.0 BASOPHIL % 0.4NUCLEATED RBC % 0.0NEUTROPHIL # 4.08IMMATURE GRANULOCYTE # 0.110 HLYMPHOCYTE # 2.00MONOCYTE # 0.52EOSINOP HIL # 0.07BASOPHIL # 0.03NUCLEATED RBC # 0.000 PHOS (0 05/20/22 05:19)PHOSPHOROUS 2.4 L GLU BED (05/19/22 19:43) GLUBED 146 H HGB amp; HCT (05/19/22 19:32)HEMOGLOBIN 10.5 L HEMATOCRIT 31.9 L GLU BED (05/19/22 18:10)GLUBED 85 PHOS (0 05/19/22 16:45)PHOSPHOROUS 3.2 CBC W/AUTO DIFF (05/19/22 16:45)WHITE BLOOD CELL 9.0RED BLOOD CELL 3.60HEMOGLOBIN 10.7 L LHEMATOCRIT 32.5L LMEAN CELL VOLUME 90 DMEAN DILIA L HGB 29.7MEAN CELL HGB CONCENTRATION 32.9RED CELL DIS TRIBUTION WIDTH 13.1PLATELET COUNT 227MEAN PLATELET VOLUM E 11.3NEUTROPHIL % 63.2IMMATURE GRANULOCYTE % 2.0 HLYMPHOCYTE % 26.4MONOCYTE % 7.5EOSINOPHIL % 0.3BASOPHIL % 0 .6NUCLEATED RBC % 0.0NEUTROPHIL # 5.71IMMATURE GRANULOCYTE # 0.180 HLYMPHOCYTE # 2.39MONOCYTE # 0.68 EOSINOPHIL # 0.03BASOPHIL # 0.05NUCLEATED RBC # 0.000 BASIC M ETABOLIC PANEL (05/19/22 12:15)SODIUM 138POTASSIUM 4.0CHL ORIDE 110H HCARBON DIOXIDE 20L LANION GAP 12.0 DGLUCOSE 21 7H HBLOOD UREA NITROGEN 21GLOMERULAR FILTRATION RATE 49 LC REATININE 1.2BUN/CREATININE RATIO 17.5CALCIUM 8.3 L LACTIC ACID (05/19/22 12:15)LACTIC ACID 1.4 PHOS (05/19/22 12:15)PHOSPHOROUS 3.3 GLU BED (05/19/22 12:02)GL UBED [address] ABD amp;PELVIS W/O CONT ( 3 14:17)IMPRESSION: Large stool burden particularl y at the rectum, otherwise unremarkableCT abdomen pelvis. Signed in PatientKeeper by Darlene Hansen NP on 05/21 at 05:34 Cosigned by PEGGY PEREZ MD on at 10:52 at 1052 at 1052ATTENTION EDITS and/or ADDENDA must be ma de in Patient Keeper for this note. Edits and ammen dments created in [facility] are not visible in Patien t Keeper or the legal medical record ([facility]). RPT #: [id number] OF [id number]:01:[id number].PK- [id number] for patient [id number]:52:39 2022-05-20 [id number]:43:00 [facility] 13:43:00 [facility] ([facility])Endocrinology Progress Note REPORT #: [id number] REPORT STATUS: Signed DATE: 05/20/22 T EDUARDO: 1343 PATIENT: LIZZIE HINKLE UNIT #: [id number] CCOUNT #: [id number] ROOM #: NC.5104 BED: 1 : 3 AGE: 72 SEX: F ATTEND: Erasmo Fay MD ADM DT: AUTHOR: Nini Doan MD ATTENTION EDITS and/or ADDENDA must be made i n Patient Keeper for this note. Edits and ammendments c reated in [facility] are not visible in Patient Keeper or the legal medical record ([facility]). -- ASSESSMENT AND PLAN -- PROBLEMS : 1: Type 1 diabetes mellitus with ketoacidosis without coma A/P: UNCONTROLLED (MNJQ9T=03.9%,HYPERGLYCEMIA) TYPE I DM IN DKA. DKA RESOLVED:FBS=68 HS GKWUYIT=698. OBSERVE ON REVISED,DECREASED SQ BASAL/BOLUS INSULIN.MUST REEVES VE A BEDTIME SNACK. -- SUBJECTIVE -- CHIEF COMPLAINT:HYPERGLYCEMIA, DKA HPI: EVENTS NOTED. OUT OF ICU. EATING WELL. DID NOT HAVEBEDTIME SNACK ORDERE D. -REVIEW OF SYSTEMS- GENERAL: Negative for feverRESPIRATO RY: Negative for dyspneaCARDIOVASCULAR: Negative for palpitations.GASTROINTESTINAL: No diarrhea.ENDOC RINE: Negative for polyphagia, polydipsia, polyuria -- OBJECTIVE -- VITALS (05/19 13:43 - 05/20 13:43):Temperatur e C: 36.5 (36.5 - 36.7)Temperature source: OralPulse Rate 95 (82 - 95)Respiratory rate: 20 (17 - 20)BP: 122/84 (103 /62 - 142/84) -EXAM- GENERAL: Well developed, well nou rished, in no apparent distress, THINHEAD: Normocephalic, atraumatic.EYES: LEGALLY BLINDNECK: trachea midl ine.CHEST: Grossly normal appearance.LUNGS: NORMAL CHEST WA LL MOVEMENTHEART: TACHYCARDIAABDOMEN: NON-DISTENDED NEUROLOGICAL: NORMAL SPEECHPSYCHIATRIC: Alert an d oriented to time, person, place. -- DATA -- MEDICATIONS P ANTOPRAZOLE with/in SODIUM CHLORIDE 0.9% 40 MG IV [id number] OSE 5%-0.45% SALINE 1000 ML IV ASDIRPOTASSIUM BICARB ANGELA/CIT AC 20 MEQ PO ASDIRONDANSETRON HCL/PF 4 MG IV Q4H PRNINSULIN REGULAR, HUMAN with/in SODIUM CHLORIDE 100 mL BA G 100 UNIT IV ASDIRPOTASSIUM CHLORIDE 20 MEQ IV ASDIRINSULI N LISPRO 0 UNITS SUBQ AC HSSODIUM CHLORIDE 0.9% 1000 ML IV ASDIRGLUCAGON 1 MG IM ASDIRDEXTROSE 50%-WATER 50 ML IV ASDIRMUPIROCIN 1 APPLIC NASAL BIDIPRATROPIUM/ALB UTEROL SULFATE 3 ML NEB RTQ6H PRNENOXAPARIN SODIUM 40 M G SUBQ [id number] HCL 10 MG IV Q6H PRNSODIUM CHLOR LAN 0.45% 1000 ML IV ASDIRINSULIN GLARGINE 18 UNITS SUBQ QAMACETAMINOPHEN 650 MG PO Q6H PRN LABS GLU BED (05/20/22 12:06)GLUBED 164 H GLU BED (05/20/22 08:11)GLUBE D 68 L CBC W/AUTO DIFF (05/20/22 05:19)WHITE BLOOD CELL 6.8 RED BLOOD CELL 3.28 LHEMOGLOBIN 9.8L LHEMATOCRIT 29.3L LM KAMI CELL VOLUME 89MEAN CELL HGB 29.9MEAN CELL HGB CONCENT RATION 33.4RED CELL DISTRIBUTION WIDTH 12.9PLATELET COU NT 235MEAN PLATELET VOLUME 11.2NEUTROPHIL % 60.0IMMATURE GR ANULOCYTE % 1.6 HLYMPHOCYTE % 29.4MONOCYTE % 7.6EOSINOPHIL % 1.0BASOPHIL % 0.4NUCLEATED RBC % 0.0NEUTROPHIL # 4.08IMMATURE GRANULOCYTE # 0.110 HLYMPHOCYTE # 2 .00MONOCYTE # 0.52EOSINOPHIL # 0.07BASOPHIL # 0.03NUCLEATED RBC # 0.000 PHOS (05/20/22 05:19) PHOSPHOROUS 2.4 L GL U BED (05/19/22 19:43)GLUBED 146 H HGB amp; HCT (05/19 19:32)HEMOGLOBIN 10.5 LHEMATOCRIT 31.9 L GLU BE D (05/19/22 18:10)GLUBED 85 PHOS (05/19/22 16:45)PHOSPHOROUS 3.2 CBC W/AUTO DIFF (05/19/22 16:45)WHITE BLOOD CELL 9.0 RED BLOOD CELL 3.60HEMOGLOBIN 10.7L LHEMATOCRIT 32.5L LMEA N CELL VOLUME 90 DMEAN CELL HGB 29.7MEAN CELL HGB FRANCK NTRATION 32.9RED CELL DISTRIBUTION WIDTH 13.1PLATELET COU NT 227MEAN PLATELET VOLUME 11.3NEUTROPHIL % 63.2IMMATURE GR ANULOCYTE % 2.0 HLYMPHOCYTE % 26.4MONOCYTE % 7.5EOSINOPHIL % 0.3BASOPHIL % 0.6NUCLEATED RBC % 0.0NEUTROPHIL # 5.71IMMATURE GRANULOCYTE # 0.180 HLYMPHOCYTE # 2 .39MONOCYTE # 0.68EOSINOPHIL # 0.03BASOPHIL # 0.05NUCLEATED RBC # 0.000 -- ATTESTATION -- TIME SPENT ON PATIENT CARE: - Direct 30 minutes CARE ACTIVITIES / CARE COORDINATION: - I have reviewed the history and repeated the ingram elemen ts - I have seen and examined this patient - I have reviewed the progress in the clinical course since the lastex amination - I have discussed the patient's condition with ot her members of the care team ADDITIONAL DETAIL:I HAVE SPENT 30 MINUTES IN THE EVALUATION AND TREATMENT OF THIS PATIENT. Signed in PatientKeeper by Nini Doan MD on at 13:47 at 1347ATTENTION EDITS and/or ADDENDA must be ma de in Patient Keeper for this note. Edits and ammen dments created in [facility] are not visible in Patien t Keeper or the legal medical record (HPF). [facility] #: [id number] OF REPORT PRProgress [id number]:43:[id number] Available for patient [id number]:47:5 7 2022-05-19 [id number]:29:00 [facility] 22:29:00 [place] ([facility])Family Med. History PhysicalREPORT #: [id number] REPORT STATUS: Signed DATE: 05/19/22 T EDUARDO: 2229 PATIENT: LIZZIE HINKLE UNIT #: [id number] CCOUNT #: [id number] ROOM #: NC.5104 BED: 1 : 3 AGE: 72 SEX: F ATTEND: Erasmo Fay MD ADM DT: AUTHOR: Britney Winchester DO ATTENTION EDITS and/or ADDENDA must be made i n Patient Keeper for this note. Edits and ammendments c reated in [facility] are not visible in Patient Keeper o r the legal medical record (HPF). -- HISTORY -- ADMISSION DATE:05-19 PRIMARY CARE PROVIDER:Erasmo Fay MD IEF COMPLAINT:ams, hyperglycemia HPI:72yo with hx of uncontrolled DM presented to ED with lethargy, c onfusion andelevated sugars. Was found to be in DKA and a dmitted for further treatment.This morning, she states she i s feeling better with sugars approaching morenormal ranges and anion gap closing. Noted nausea with abd pain in the l ast but denies any fever/chills. Nursing noted bleeding, maroon/dark red incolor when cleaning patient up from rectal region with possible note ofhemorrhoid. D aughter and pt voice no recent URI symptoms, urinary tractsy mptoms. Pt states she has been taking all meds as directed. PAST MEDICAL HISTORY: DM, HTN, CAD, diabetic retinopa thy,, blind in R eye, diabetic nephropathy,hyperlipidemia, C KD hospitalized for DKA mult times PAST SURGICAL HI STORY: multiple retinal surgeries, hysterectomy -- [place]AN[place] RGIES/HOME MEDS -- ALLERGIES:codeine (Unknown - Allergy)lis inopril (Severe - Allergy) HOME MEDICATIONS:Aspirin Chew able Tab (Aspirin Chewable Tab) 81 MG PO DAILYClopidogrel Tab (Plavix Tab) 75 MG PO DAILYDicyclomine Cap (Bent yl Cap) 10 MG PO TIDEzetimibe Tab (Zetia Tab) 10 MG PO WILMAN YFamotidine Tab (Pepcid Tab) 20 MG PO [id number] 2.5 mg-25 mg-1 mg tablet (folic acid-vit B6-vit B12) 1 TAB PO WILMAN Y Insulin (Glargine) Inj (Lantus Inj) 18 UNITS SUBQ QAMIns ulin Lispro InJ (HumaLOG Inj) SUBQ AC HSIsosorbide Mononitra te ER Tab (Imdur Tab) 30 MG PO DAILYLantus Solostar 100 un it/mL (3 mL) subcutaneous insulin pen (insulin glargine)1 8 UNITS SUBQ QAMMed Rec Order Def 1 EACH [facility] ASDIRMed R ec Order Def [facility] Def [facility]ACH [facility] QIDMetoprolol Succinate XL Tab (Toprol XL Tab) 2 5 MG PO DAILYmetroNIDAZOLE Tab (Flagyl Tab) 500 MG PO Q8 HRRanexa tablet,extended release (ranolazine) 1000 MG PO BID -- SUBJECTIVE -- -REVIEW OF SYSTEMS- GENERAL: Negat mirtha for fever, chills, unexplained weight loss, and fatigueRESPIRATORY: Negative for shortness of br eath, cough, chest congestion, wheezing, hemoptysis, a nd pleuritic painCARDIOVASCULAR: Negative for chest pain, palpitations, dyspnea on exertion, orthopnea, ed venancio and dizzinessGASTROINTESTINAL: Pos for abdominal tonia n, nausea, no vomiting, diarrhea, constipation, and anorexiaGENITOURINARY: Negative for dysuria, mulugeta quency, or urgency. No gross hematuria. -- OBJECTIVE -- VIT ALS (05/19 06:05 - 05/20 06:05):Temperature C: 36.6 (36.5 - 36.7)Temperature source: OralPulse Rate 82 (82 - 90)Respiratory rate: 17BP: 118/62 (103/62 - 127/ 77) -EXAM- GENERAL: Well developed, well nourished, in no a pparent distress.EYES: chronic changes to R eye, EOM int act.NECK: No masses, no thyromegaly, no abnormal cervical nodes, trachea midline.LUNGS: Respirations unlabored, c lear to auscultation bilaterally, no wheezing, no ronchi , no ralesHEART: Regular rate and rhythm, normal S1, S2, no murmurs, no rubs, no gallops, no clicks.ABDOMEN: + BS soft, flat, nontender, the liver and spleen are not pa lpable, no palpable masses, no herniasEXTREMITIES: No clubb ing, cyanosis or edemaSKIN: No pallor, no jaundice, n o rash, normal turgorLYMPH NODES: None palpable cervical , axillary, supraclavicular or inguinal locationsPSYCHIATRIC : Mood euthymic. Affect congruent, normal speech. -- DA TA -- LABS GLU BED (05/19/22 19:43)GLUBED 146 H HGB amp; H CT (05/19/22 19:32)HEMOGLOBIN 10.5 LHEMATOCRIT 31.9 L GLU BED (05/19/22 18:10)GLUBED 85 PHOS (05/19/22 16:45)P HOSPHOROUS 3.2 CBC W/AUTO DIFF (05/19/22 16:45)WHITE BLOOD CELL 9.0RED BLOOD CELL 3.60HEMOGLOBIN 10.7L LHEMATOCRIT 32. 5L LMEAN CELL VOLUME 90 DMEAN CELL HGB 29.7MEAN CELL HGB CONCENTRATION 32.9RED CELL DISTRIBUTION WIDTH 13 .1PLATELET COUNT 227MEAN PLATELET VOLUME 11.3NEUTROPHIL % 63.2IMMATURE GRANULOCYTE % 2.0 HLYMPHOCYTE % 26. 4MONOCYTE % 7.5EOSINOPHIL % 0.3BASOPHIL % 0.6NUCLEATED RBC % 0.0NEUTROPHIL # 5.71IMMATURE GRANULOCYTE # 0.180 HLYMPHOCYTE # 2.39MONOCYTE # 0.68EOSINOPHIL # 0. 03BASOPHIL # 0.05NUCLEATED RBC # 0.000 [address] METABOLIC PANE L (05/19/22 12:15)SODIUM 138POTASSIUM 4.0CHLORIDE 110H HCAR BON DIOXIDE 20L LANION GAP 12.0 DGLUCOSE 217H HBLOOD UREA N ITROGEN 21GLOMERULAR FILTRATION RATE 49 LCREATININE 1.2BUN/CREATININE RATIO 17.5CALCIUM 8.3 L LACTIC ACID (05/19/22 12:15)LACTIC ACID 1.4 PHOS (05/19/22 12:15)PHOSPHOROUS 3.3 GLU BED (05/19/22 12:02)GL UBED 210 H GLU BED (05/19/22 10:36)GLUBED 248 H GLU BED ( 09:03)GLUBED 294 H GLU BED (05/19/22 07:49)GLUBE D 372 H LACTIC ACID (05/19/22 07:12)LACTIC ACID 2.0 PHOS (05/19/22 07:12)PHOSPHOROUS 4.5 COVID 19 INH AG (05/19/22 06:28)COVID 19 INHOUSE AG NEGATIVE GLU BED (05/19/22 06:17)G LUBED 528 *H -- ASSESSMENT AND PLAN -- PROBLEMS: 1: Type 1 diabetes mellitus with ketoacidosis without comaA/P: admi t to ICUcont DKA protocolcrit care and endo following transition to basal/bolus insulin as ablestart diet as able encourage no missed meds/reg sugar checks at home 2: Blood in stoolA/P: consult GI in AM as FOB positivemonito r h/hf/u imaging 3: Hypertension 4: CAD (coronary artery disease) 5: Visual impairment 6: Peripheral arterial disease Signed in PatientKeeper by BRITNEY WINCHESTER DO on 05/20/22 at 06:12 Electronically Signed by Britney Winchester DO on 0 05/20/22 at 0612ATTENTION EDITS and/or ADDENDA must be ma de in Patient Keeper for this note. Edits and ammen dments created in [employer] are not visible in Patien t Keeper or the legal medical record ([facility]). [facility] #: [id number] OF REPORT HPHistory and physical [id number]:29:[id number] lable for patient [id number] 6:13:32 2022-05-19 [id number]:53:00 [facility] 12:53:00 [facility])Endocrinology Consultation REPORT #: [id number] REPORT STATUS: Signed DATE: 05/19/22 T EDUARDO: 1253 PATIENT: LIZZIE HINKLE UNIT #: [id number] CCOUNT #: [id number] ROOM #: NC.ERICUBED: 2 : 3 AGE: 72 SEX: F ATTEND: Erasmo Fay MD ADM DT: AUTHOR: Nini Doan MD ATTENTION EDITS and/or ADDENDA must be made i n Patient Keeper for this note. Edits and ammendments c reated in [facility] are not visible in Patient Keeper or the legal medical record ([facility]). -- ASSESSMENT AND PLAN -- PROBLEMS : 1: Type 1 diabetes mellitus with ketoacidosis without coma A/P: UNCONTROLLED (OAYE1O=37.9%,HYPERGLYCEMIA) TYPE I DM IN DKA. OBSERVE ON [place]UD[place], INSULIN DRIP PROTOCOL (PRESEN TLY AT 3.4 UNITS/HR). WHEN ANION GAP CLOSESTHEN TRANSITION TO SQ BASAL/BOLUS INSULIN. DISCUSSED WITH ADMITTING Lorne SINGH. WILL FOLLOW WITH YOU. -- HISTORY -- CO NSULT REQUESTED BY:ERASMO FAY REASON FOR CONSUL T:DKA CHIEF COMPLAINT:HYPERGLYCEMIA HPI:PATIENT ADMITTED TO ICU IN DKA. ICU DKA, INSULIN DRIP PROTOCOL INITIATED. -- ALL ERGIES/HOME MEDS -- ALLERGIES:codeine (Unknown - Allergy)lis inopril (Severe - Allergy) HOME MEDICATIONS:Aspirin Chew able Tab (Aspirin Chewable Tab) 81 MG PO DAILYClopidogrel Tab (Plavix Tab) 75 MG PO DAILYDicyclomine Cap (Bent yl Cap) 10 MG PO TIDEzetimibe Tab (Zetia Tab) 10 MG PO WILMAN YFamotidine Tab (Pepcid Tab) 20 MG PO Q11BUNihzxi 2.5 mg-25 mg-1 mg tablet (folic acid-vit B6-vit B12) 1 TAB PO WILMAN YInsulin (Glargine) Inj (Lantus Inj) 18 UNITS SUBQ QAMIns ulin Lispro InJ (HumaLOG Inj) SUBQ AC HSIsosorbide Mononitra te ER Tab (Imdur Tab) 30 MG PO DAILYLantus Solostar 100 un it/mL (3 mL) subcutaneous insulin pen (insulin glargine)1 8 UNITS SUBQ QAMMed Rec Order Def 1 EACH [facility] ASDIR Med Rec Order Def 1 EACH [facility] QIDMed Rec Order Def 1 EACH [facility] QIDMetoprolol Succinate XL Tab (Toprol XL Tab) 2 5 MG PO DAILYmetroNIDAZOLE Tab (Flagyl Tab) 500 MG PO Q8 HRRanexa tablet,extended release (ranolazine) 1000 MG PO BID -- SUBJECTIVE -- -REVIEW OF SYSTEMS- GENERAL: Negat mirtha for feverRESPIRATORY: Negative for dyspneaCARDIOVASC ULAR: Negative for palpitations.GASTROINTESTINAL: No diarrhea.ENDOCRINE: Negative for polyphagia, peter ydipsia, polyuria -- OBJECTIVE -- VITALS (05/18 12:54 - 0 05/19 12:54):Temperature F: 98.0Temperature source: Or alPulse Rate 109 (109 - 117)Respiratory rate: 18BP: 119/ 58 (119/58 - 140/72)Blood pressure source: Non-invasive mon itor -EXAM- GENERAL: Well developed, well nourished, in no a pparent distress, THINHEAD: Normocephalic, atraumatic.EY ES: LEGALLY BLINDNECK: trachea midline.CHEST: Grossly normal appearance.LUNGS: NORMAL CHEST WALL MOVEMENTHEAR T: TACHYCARDIAABDOMEN: NON-DISTENDEDNEUROLOGICAL: N ORMAL SPEECHPSYCHIATRIC: Alert and oriented to time, p erson, place. -- DATA -- MEDICATIONS DEXTROSE 5%-0.45% SALINE 1000 ML IV ASDIRPOTASSIUM BICARBONATE/CIT AC 20 MEQ P O ASDIRONDANSETRON HCL/PF 4 MG IV Q4H PRNSODIUM CH LORIDE 0.9% 1000 ML IV ASDIRMUPIROCIN 1 APPLIC NASAL BIDIPRATROPIUM/ALBUTEROL SULFATE 3 ML NEB RTQ6H PRNENOXAPARIN SODIUM 40 MG SUBQ U32AqzyrIWOVKPQ HCL 10 MG IV Q6H PRNSODIUM CHLORIDE 0.45% 1000 ML IV ASDIRACETAMINOPHEN 650 MG PO Q6H PRNGLUCAGON 1 M G IM ASDIR (PRN)INSULIN REGULAR, HUMAN with/in SODIUM CHLOR LNA 100 mL BAG 100 UNIT IV ASDIRPOTASSIUM CHLORIDE 20 MEQ I V ASDIRDEXTROSE 50%-WATER 50 ML IV ASDIR LABS BASI C METABOLIC PANEL (05/19/22 12:15)SODIUM 138POTASSIUM 4.0CHL ORIDE 110H HCARBON DIOXIDE 20L LANION GAP 12.0 DGLUCOSE 217 H HBLOOD UREA NITROGEN 21GLOMERULAR FILTRATION RATE 49 LC REATININE 1.2BUN/CREATININE RATIO 17.5CALCIUM 8.3 L GLU BE D (05/19/22 12:02)GLUBED 210 H GLU BED (05/19/22 10:36)GLUBE D 248 H GLU BED (05/19/22 09:03)GLUBED 294 H GLU BED ( 07:49)GLUBED 372 H LACTIC ACID (05/19/22 07:12)L ACTIC ACID 2.0 PHOS (05/19/22 07:12)PHOSPHOROUS 4.5 COVID 1 9 INH AG (05/19/22 06:28)COVID 19 INHOUSE AG NEGATIVE GLU BED (05/19/22 06:17)GLUBED 528 *H ISTAT BLOOD GAS VE NOUS (05/19/22 05:38)IONIZED CALCIUM 1.15VENOUS BLOOD GAS PH 7.15 *LVENOUS BLOOD GAS PCO2 29 LVENOUS BLOOD GA S PO2 54 HVBG HCO3 10 LVBG BASE EXCESS -19 LVENOUS BLOOD GAS O2 SAT 78 HTOTAL CO2 CONTENT 11.0 *LHEMOGLOBIN POC 12.6 HEMATOCRIT POC 37.0SODIUM POC 132 LPOTASSIUM POC 5.1 HGLUC OSE POC > 625 *H PROTHROMBIN TIME (05/19/22 05:27)PROTHROM BIN TIME PATIENT 10.3INTERNATIONAL NORMAL RATIO 0.9 ACETN QL (05/19/22 05:27)ACETONE QUAL SMALL H OSMO (05/19 05:27)OSMOLALITY SERUM 336 H PTT (05/19/22 05:27)THROMBOPLASTIN TIME PARTIAL 26.7 MINOO (05/01 01/21 05:27)AMYLASE 26 LIPID PROFILE (CORONARY RISK) ( 05/19/22 05:27)TRIGLYCERIDES 178 HCHOLESTEROL 287 HCHOLES TEROL/HDL RATIO 5HDL CHOLESTEROL 55LIPOPROTEIN LDL 206 H C K (05/19/22 05:27)CREATINE KINASE (CK) 88 PHOS (05/19/22 05:27)PHOSPHOROUS 5.1 H CA (05/19/22 05:27)CALCI UM 9.3 GLU BED (05/19/22 05:21)GLUBED 571 *H GLU BED (05/19 03:48)GLUBED 590 *H ISTAT BLOOD GAS VENOUS ( 03:15)IONIZED CALCIUM 1.19VENOUS BLOOD GAS PH 7. 21 LVENOUS BLOOD GAS PCO2 37 LVENOUS BLOOD GAS PO2 53 HVBG HCO3 15 LVBG BASE EXCESS -13 LVENOUS BLOOD GAS O2 SAT 80 HTOTAL CO2 CONTENT 16.0 *LHEMOGLOBIN POC 11.9HEMATOCRIT POC 35.0SODIUM POC 132 LPOTASSIUM POC 5.0GLUCOSE POC > 625 *H M AG (05/19/22 03:01)MAGNESIUM 1.8 LIVER FUNCTION CAMACHO EL (05/19/22 03:01)TOTAL PROTEIN 7.2ALBUMIN 3.2 LGL OBULIN 4.0 HBILIRUBIN TOTAL 0.7BILIRUBIN DIRECT 0.3BILIRUB IN INDIRECT 0.4SGOT/AST 12 LSGPT/ALT 12ALKALINE PHOSPHATASE 81 ACETNQL (05/19/22 03:01)ACETONE QUAL SMALL H LIP (05/19 03:01)LIPASE 127 TROP-I HIGH SEN (05/19/22 03:01 )TROP-I HIGH SENSITIVITY 37 BASIC METABOLIC PANEL (05/19 03:01)SODIUM 133L LPOTASSIUM 4.4CHLORIDE 100CAR BON DIOXIDE 12L LANION GAP 25.4 HGLUCOSE 666*H *HBLOOD UREA NITROGEN 24H HGLOMERULAR FILTRATION RATE 44 LCREATININE 1.3BUN/CREATININE RATIO 18.5CALCIUM 8.4 L CBC W/ AUTO DIFF (05/19/22 03:01)WHITE BLOOD CELL 6.6RED BLOOD CE LL 3.79HEMOGLOBIN 11.1L LHEMATOCRIT 35.1L LMEAN DILIA L VOLUME 93MEAN CELL HGB 29.3MEAN CELL HGB CONCENTRATION 31.6RED CELL DISTRIBUTION WIDTH 13.0PLATELET COUNT 244ME AN PLATELET VOLUME 11.3NEUTROPHIL % 66.0IMMATURE GRANULOCYTE % 1.4 HLYMPHOCYTE % 25.3MONOCYTE % 6.2EOSINOPHIL % 0.3 BASOPHIL % 0.8NUCLEATED RBC % 0.0NEUTROPHIL # 4.34IMMATURE GRANULOCYTE # 0.090LYMPHOCYTE # 1.66MONOCYTE # 0.41EOSINOPHI L # 0.02BASOPHIL # 0.05NUCLEATED RBC # 0.000 HGBA1C - GLYCOSYLATED HGB (05/19/22 03:01)GLYCOSYLATED HE MOGLOBIN (HA1C) 12.9 H -- ATTESTATION -- TIME SPENT ON PA TIENT CARE: - Direct 45 minutes - > 50% of time spent on Counseling/Care Coordination CARE ACTIVITIES / C ARE COORDINATION: - I have reviewed the history and repeated the ingram elements - I have seen and examined this patient - I have discussed the patient's condition with ot her members of the care team ADDITIONAL DETAIL:I HAVE SPENT >45 MINUTES IN THE EVALUATION AND TREATMENT OF THIS PATIENT. Signed in PatientKeeper by Nini Doan MD on at 12:58 at 1258ATTENTION EDITS and/or ADDENDA must be ma de in Patient Keeper for this note. Edits and ammen dments created in [employer] are not visible in Patie nt Keeper or the legal medical record (HPF). [facility] #: [id number] OF [id number]:53:[id number].PK- [id number] for patient [id number]:59:52 2022-05-19 [id number] [facility] 03:14:[address] [address] PATIENT NAME: LIZZIE HINKLE ADMIT DA TE: 05/19/22ACCOUNT NO: [id number] ROOM NO: NC.MAMADOU CU AGE: 72 REPORT TYPE: eELECTROCARDIOGRAM SEX: F ADMITTING PHYSICIAN:Fadumo Fay MD ATTENDING PHYSICIAN:Erasmo spann MD Order:[id number] Reason : Test Date/Time Stamp:MonMay 19 2022 03:14:08Blood Pressure : / mmH GVent. Rate : 119 BPM Atrial Rate : 119 BPM P-R Int : 111 ms QRS Dur : 087 ms QT Int : 324 ms P-R-T Axes : 062 063 060 degrees QTc Int : [address] depress ion, anterolateral leads Confirmed by GENET KEENAN MD ([id number]) on 05/19/2022 12:51:16 PM Referred By: Self Refer red Confirmed by:LISY KEENAN MD Electronically Sign ed by Lisy Keenan MD on 05/19/22 at [address] [address] PATIENT NAME: LIZZIE HINKLE .[id number] le for patient [id number] 1:50 2022-05-19 [id number]:04:00 [facility] 03:04:00 [facility]EMERGENCY PROVIDER REPORTREPORT#:[id number] REPORT STATUS: SignedDAT E:05/19/22 TIME: 0304 PATIENT: LIZZIE HINKLE UNIT #: [id number]#: [id number] ROOM: [address] D: 1AGE: 72 SEX: F PCP PHYS: Erasmo Fay MDSERVMAXIMINO D AUTHOR: Mateo Hernadez MD R3 * ALL edits or amen dments must be made on the electronic/computer document * Angel Luis telMateo 05/19/22 0304:HPI-General Illness Free Text HP I NotesFree Text HPI NotesPatient is a 72-year-old female wi th past medical history of CAD, type 1 diabetes, periphe ral vascular disease, hypertension, hyperlipidemia, visual impairment secondary to diabetic retinopathy pre sented to the ER with complaint of home fingerstick blood glucose of 587. Patient denies nausea, vomiting, diarrhea, increased urinary frequency, chest pain, shortness of robert th, headache, dizziness, fever, chills. Per EMS repo rt patient's gives her insulin and monitors fingerstick glucose at home. Patient's c alled EMS when went to fingerstick blood glucose was 587. During encounter patient denies any ongoing active comp laints. GeneralInitial Greet Date/Time 05/19/22251 PresentationChief Complaint HIGH BLOOD GLUCOSEHx Obtained From Patient, EMSSudden in Onset? YesOnset Occur red Today Review of Systems ROS StatementsAll systems rev neg except as marked. Review of SystemsConstitutionalDenies : Chills, Fatigue, Fever, Lethargy, Malaise, Recent wt los s, Weakness - generalized. EyesReports: Visual loss bilat. RespiratoryDenies: Cough, non-productive, Dyspne a on exertion, Hemoptysis, Shortness of breath, Wheez ing. CardiovascularDenies: Chest pain, Edema, Orthopn ea, Palpitations, Syncope. GIDenies: Abdominal pain, Constipation, Diarrhea, Dysphagia, Nausea, Vomit ing. FemaleDenies: Dysuria, Flank pain, Urinary urgen cy. MusculoskeletalDenies: Back pain. EndocrineRepor ts: Polyuria. Denies: Cold intolerance, Heat intoler ance, Polydipsia, Polyphagia. NeurologicDenies: Abnorm al movement, Bladder dysfunction, Bowel dysfunction , Change LOC, Confusion, Dizziness, Focal weakness, Gener alized weakness, Headache, Lightheaded. PsychiatricDeni es: Agitation, Anxiety. Past Medical History - Adult Stated Complaint HIGH BSAllergiesCoded Allergies:lisino pril (Severe, ANGIOEDEMA 02/20/22)codeine (DROWSINESS /very sleepy 02/20/22) Additional Medical HistoryInsulin-dependent diabetes mellitusCAD hypertensionHyperlipidemiaVisual impairmentDiabe tic retinopathy Additional Surgical HistoryNoneAlcoh ol Use Denies EtOH useDrug Use Denies recreational drug sSmoking status for patients 13 years old or older: Never SmokerAdditional Social HistoryLives with spouse Physical Exam Vital SignsVital SignsFirst Documented: Res ult Date Time Pulse Ox 98 05/19 254 B/P 140/72 05/19 02 55 B/P Mean 94 05/19 254 O2 Delivery Room air 05/19 254 Te mp 36.7 05/19 254 Pulse 112 05/19 254 Resp 05/19 02 55 Last Documented: Result Date Time Pulse Ox 100 05/19 429 B/P 127/68 05/19 429 B/P Mean 90 05/19 429 Pulse 1 09 05/19 429 O2 Delivery Room air 05/19 254 Temp 36.7 0 05/19 254 Resp 05/19 Review of Vital Signs Reviewe d Physical ExamGeneral/Const General/Const Awake, Alert, No acute distress Appearance/Presentation Frail. Eyes Eye s AtraumaticMS Neck Neck Atraumatic, SuppleResp/Ch est Respiratory/Chest Breath sounds = bilatCardiovas cular Cardiovascular Heart sounds NL, TAHCYCARDICAbdom en/GI Abdomen/GI Soft, Non-tenderMS Back Back Inspecti on NLMS Lower Extrem Lower Ext/Pelvis/MS Atraumatic, No swelling, Non-tenderSkin Skin Dry, IntactNeurologic Neurol ogic Oriented X3, Speech NLPsychiatric Psychiatric Mo od NL Interpretation Diagnostics Lab Results InterpretationResultsLaboratory Tests 05/19/22 0301:[Embedded Image Not Available] 05/19/22 030 1:[Embedded Image Not Available]Laboratory Tests: 05/19 05/01 9 05/19 030 0301 0301 Chemistry Sodium (135 - 145 mmol /L) 133 L Potassium (3.5 - 5.1 mmol/L) 4.4 Chloride (98 - 107 mmol/L) 100 Carbon Dioxide (21 - 32 mmol/L) 12 L Anion Gap (2.0 - 16.0) 25.4 H BUN (4 - 23 mg/dL) 24 H Creatinine (0.6 - 1.5 mg/dL) 1.3 Glomerular Filtr Rate (>60 ml/min) 44 L BUN/Creatinine Ratio (12.0 - 20.0) 18.5 Glucose (65 - 99 mg/dL) 666 *H Hemoglobin A1c (4.5 - 5.9 %) 12.9 H Calcium (8.5 - 10.1 mg/dL) 8.4 L Magnesium (1.8 - 2.4 mg /dL) 1.8 Total Bilirubin (0.2 - 1.2 mg/dL) 0.7 Direct Delmy irubin (0.0 - 0.3 mg/dL) 0.3 Indirect Bilirubin (0.0 - 0.8 m g/dL) 0.4 AST (15 - 37 U/L) 12 L ALT (6 - 50 U/L) 12 Tota l Alk Phosphatase (45 - 117 U/L) 81 Troponin I High Se ns (0 - 53 pg/mL) 37 Total Protein (6.4 - 8.2 g/dL) 7.2 Alb umin (3.4 - 5.0 g/dL) 3.2 L Globulin (2.3 - 3.5 g/dL) 4.0 H Lipase (73 - 393 U/L) 127 Hematology WBC (4.5 - 11.0 10 3/ uL) 6.6 RBC (3.50 - 5.50 10 6/uL) 3.79 Hgb (12.0 - 16.0 g/dL ) 11.1 L Hct (37.0 - 55.0 %) 35.1 L MCV (81 - 102 fL) 93 MCH (26.0 - 34.0 pg) 29.3 MCHC (31.0 - 37.0 g/dL) 31.6 RDW ( 11.6 - 14.4 %) 13.0 Plt Count (150 - 400 10 3/uL) 244 MPV (9 .0 - 12.6 fL) 11.3 Neut % (Auto) (33.0 - 76.0 %) 66.0 Lym ph % (Auto) (14.0 - 56.4 %) 25.3 Lanier % (Auto) (0.0 - 12.9 % ) 6.2 Eos % (Auto) (0.0 - 7.0 %) 0.3 Baso % (Auto) (0 - 2. 0 %) 0.8 Neut # (Auto) (1.5 - 7.0 10 3/uL) 4.34 Lymph # ( Auto) (1.50 - 4.00 10 3/uL) 1.66 Lanier # (Auto) (0.20 - 0.80 10 3/uL) 0.41 Eos # (Auto) (0.0 - 0.5 10 3/uL) 0.02 Baso # (Auto) (0.0 - 0.1 10 3/uL) 0.05 Abs Immat Gran (auto) ( 0.000 - 0.100 x10 3/uL) 0.090 Immature Gran % (0.0 - 1.0 %) 1.4 H Nucleated RBC % (0 - 0.2 %) 0.0 Nucleated RBCs # (0.000 - 0.012 10 3/uL) 0.000 Toxicology Acetone, Qual (N EGATIVE) SMALL H 05/19 05/19 0315 0348 Blood Gas Total C O2 (22 - 30 mmol/L) 16.0 *L VBG pH (7.32 - 7.42 pH) 7.21 L V BG pCO2 (41 - 51 mmHg) 37 L VBG pO2 (25 - 40 mmHg) 53 H VBG HCO3 (24 - 25 mmol/L) 15 L VBG O2 Sat (Calc) (70 - 75 %) 80 H VBG Base Excess (-5 - 5 mmol/L) -13 L Ionized Calcium (1. 12 - 1.32 mmol/L) 1.19 Chemistry POC Sodium (134 - 147 mmo l/L) 132 L POC Potassium (3.4 - 5.0 mmol/L) 5.0 POC Glucose (70 - 110 mg/dL) > 625 *H 590 *H Hematology POC Hgb (1 1.6 - 15.6 g/dL) 11.9 POC Hct (33 - 45 %) 35.0 Recent Impressions:RADIOLOGY - XR CHEST 1 V 05/19 0345* Report Impression - Status: SIGNED Entered: 05/19/2022 0420 IMPRESSION:Question underlying emphysema. Increa sed interstitial opacities areseen within the bilate ral lung apices and right lateral lung zonepossibly refle cting infection, recommend follow-up in one month Impr ession By: [email or web address] - Lexie Ruiz MD Lab Imaging StatementLaboratory radiographic studies reviewe d and considered in the medical decision-making. Re-Ev aluation MDM Free Text MDM NotesFree Text MDM NotesPatien andrew is a 72-year-old female with past medical history of type I diabetes mellitus presented to the ER with compl aint of home fingerstick blood glucose over 500. ED work -up significant for sugar more than 625, anion gap o f 25.4, ketones in urine, pH 7.21, bicarb 15 consistent with DKA. Will admit to ICU and start DKA protocol. 05:23- Critical care consult placed and informed Admitting physi janet informed agrees with ER course, evaluation, and admission Re-Evaluation/Progress #1Time of Re-Eval 0405Re- Eval Status ImprovedEval Following Treatment Condition uncha ngedPain Re-Evaluation Denies painPlan Post Re-Eval Plan admit Tissue Perfusion ReassessmentPatient tissue perf usion reassessment completed. Patient Discharge Depart ure Vital Signs/ConditionVital SignsFirst Documented: Res ult Date Time Pulse Ox 98 05/19 0255 B/P 140/72 05/19 025 5 B/P Mean 94 05/19 0255 O2 Delivery Room air 05/19 025 T emp 36.7 05/19 025 Pulse 112 05/19 0255 Resp 18 05/19 0 255 Last Documented: Result Date Time Pulse Ox 100 05/19 0430 B/P 127/68 05/19 0430 B/P Mean 90 05/19 0430 Pulse 109 05/19 0430 O2 Delivery Room air 05/19 254 Temp 36.7 05/19 0255 Resp 18 05/19 0255 All vital signs available at the time of this entry have been reviewed. Condition Stable Clinical ImpressionClinical ImpressionPrimary Impression: DKA, type 1Time of Impression 0429 Disposition DecisionAdm it Admit Physician Name Erasmo Fay MD Admit [facility] Hospitalist Request Time 0429 Request Date 05/19 )( Admission Accepts Yes )( Accepted Time 0430 )( A ccepted Date 05/19/22 Call Information will see patient, agrees with eval, agrees with plan Julio César Perez 0336:Past Medical History - AdultHome Medication sActive Scriptspolyethylene glycoL 3350 (Miralax) 17 GM PO ASDIR polyethylene glycoL 3350 (Miralax) 17 GM PO ASDI R #30 PACKET Prov: 04/18/22Cefdinir (Omnicef) 300 MG P O Q12H 7 Days #14 CAPS Prov: 04/18/22Insulin Glargine (La ntus Solostar) 18 UNITS SUBQ QAM Insulin Glargine (La ntus Solostar) 18 UNITS SUBQ QAM #5 SYR Ref 2 Prov: 1 05/14/21 Reported MedicationsMetoprolol Succ Xl (Toprol X l) 25 MG PO DAILY Ezetimibe (Zetia) 10 MG PO DAILY Ranolazin e Er (Ranexa) 1,000 MG PO BID Isosorbide Mononitrate Sr (Imdur) 30 MG PO DAILY [DME - INSULIN PEN NE] 1 EACH MIS C ASDIR [DME - GLUCOSE STRIPS] 1 EACH MISC QID [DME - GL UCOSE LANCET] 1 EACH MISC QID Dicyclomine (Bentyl) 10 MG PO TID PRN ABDOMINAL CRAMPS/PAIN Metronidazole (Flagyl) 500 MG PO Q8HR Insulin Glargine (Lantus) 18 UNITS SUBQ QAM Aspirin 81 MG PO DAILY Clopidogrel Bisulfate (Plavix) 75 MG PO DAILY Cyanocobalamin/Fa/Pyridoxine (Folbee) 1 TAB PO D AILY Insulin Lispro (Humalog) Famotidine (Pepcid) 20 MG PO Q12HR Insulin Glargine (Lantus) 18 UNITS SUBQ QAM Insu janki Lispro (Humalog) 0 UNITS SUBQ AC HS Interpretation Diag nostics ECG #1 InterpretationText/Dict Phir521 Sinus Tachcar tati, Narrow QRS, QT less than 500, No TWIs present, No ST el evations or depressions Impression: Normal EKG other than ra teDate 05/19/22Time 0314 Re-Evaluation MDM ED CourseMed ication(s) OrderedMedication(s) Ordered:Electrolytic, Calor ic, And Pablo Sig/Chris Start time Last Medication Dose Route S top Time Status Admin Sodium Chloride 1,000 ML X1ED STA 0 05/19 0301 DC 05/19 IV 05/19 [address] salcedo Sig/Chris Start time Last Medication Dose Route Stop Time Status Admin Docusate Sodium 100 MG X1ED STA 05/19 0320 DC PO 05/19 0321 Hormones And Synthetic Substit Sig/S ch Start time Last Medication Dose Route Stop Time Status Admin Insulin Human Regular 10 UNIT X1ED STA 05/19 042 6 DC IV 05/19 0427 Skin And Mucous Membrane Agent Sig/Sc h Start time Last Medication Dose Route Stop Time Status Admin Mupirocin 1 APPLIC BID 05/19 0900 AC NASAL 05/23 2101 Patient Discharge Departure Discharge/Care Plan( Auto) PrescriptionsCurrent Visit ScriptsHydrocortisone (Anusol-Hc) 1 SUPP RECTAL BID Hydrocortisone (An usol-Hc) 1 SUPP RECTAL BID #1 SUPPOSITORY, RECTAL BOX polye thylene glycoL 3350 (Miralax) 1 PKT PO BID PRN Constipat ion (Use 1st) polyethylene glycoL 3350 (Miralax) 1 PKT PO BID PRN Constipation (Use 1st) #1 PACK Supervising Physi janet Note Resident Saw PtThis patient was seen by a reside nt. I have personally seen the patient, performed the criti abhinav or ingram portions of the service, and participated in the management of the patient. I have reviewed and agree with t good resident's note, and I have reviewed all labs, E CGs, and imaging studies or reports. I agree withthis dorothea ident's findings, exam and plan. at 0527Electroni khloe Signed by Julio César Perez MD on 05/31/22 at 0237RP T #:[id number] OF REPORTEDEmergency depart ment [id number]:04:[id number] [facility] [id number]:27:3 3 2022-05-04 [id number]:07:00 [facility] 12:07:00 [place] [facility]. Discharge Summary REPO RT #: [id number] REPORT STATUS: Signed DATE: 05/04/22 T EDUARDO: 1207 PATIENT: LIZZIE HINKLE UNIT #: [id number] CCOUNT #: [id number] ROOM #: NC.2201 BED: 1 : AGE: 71 SEX: F ATTEND: Erasmo Fay MD ADM DT: AUTHOR: Erasmo Fay MD ATTENTION EDITS and/or ADDENDA must be made i n Patient Keeper for this note. Edits and ammendments c reated in Uniplaces are not visible in Patient Keeper or the legal medical record (HPF). -- PROBLEMS/PROCEDURES -- ADMISSIO N DATE:03/11/22 ADMITTING DIAGNOSES: - Atheroscler otic peripheral vascular disease of extremity - CAD ( coronary artery disease) - Diabetic retinopathy - DKA (di abetic ketoacidoses) - Elevated troponin - Hyperkalemia - Hyperlipidemia - Hypertension - Hyponatremia - Noncompliance - NSTEMI (non-ST elevated myocardi al infarction) - Peripheral arterial disease - Stat in intolerance - Type 1 diabetes mellitus with keto acidosis without coma - Type 1 diabetes mellitus with ket oacidosis, uncontrolled - Visual impairment DISCHARGE DATE: 03/14/22 DISCHARGE DIAGNOSES: - Atherosclerotic periphera l vascular disease of extremity - CAD (coronary artery dise ase) - Diabetic retinopathy - DKA (diabetic ketoacidose s) - Elevated troponin - Hyperkalemia - Hyperlipidemi a - Hypertension - Hyponatremia - Noncompliance - NS RITA (non-ST elevated myocardial infarction) - Periph eral arterial disease - Statin intolerance - Type 1 d iabetes mellitus with ketoacidosis without coma - Type 1 diabetes mellitus with ketoacidosis, uncontrolled - Visua l impairment -- HOSPITAL COURSE -- HOSPITAL COURSE : Patient with hx DM with DKA developed chest pain this mo rning she also feltvery weak, she presented to the ER and was found to have DKA, also elevatted troponin, shehas kno wn severe CAD ,ECHO showed preserved EF. Endocrine was con sulted and insulin administerred.Acidosis was reversed. Car diology consulted OR treated with IV heparin.possible in terventions were discussed including PCI and CABG, but givee n highrisk of complications, medical management was decided upon. She was DCd home -- DISCHARGE MEDICATIONS -- ALLERGI ES:codeine (Unknown - Allergy)lisinopril (Severe - Allergy) DISCHARGE MEDICATIONS:Please refer to Discharge Medication list for a complete list of dischargemedicationsAspirin Ashley wable Tab (Aspirin Chewable Tab) 81 MG PO DAILYClopidogrel Tab (Plavix Tab) 75 MG PO DAILYDicyclomine Cap (Bent yl Cap) 10 MG PO TID PRN abdominal cramps/pain DME - GLUCOS E LANCET 1 EACH MISC QID (Glucose Lancets of Choice DME - G LUCOSE LANCETS)DME - GLUCOSE STRIPS 1 EACH MISC QID (Gl ucose Strips of Choice)DME - INSULIN PEN NE 1 EACH OR SC ASDIR (Insulin Pen [place] of choice. DME - INSULIN PE N NEEDLES)Ezetimibe Tab (Zetia Tab) 10 MG PO DAILY Famotidine Tab (Pepcid Tab) 20 MG PO [id number] 2.5 mg-25 mg-1 mg tablet (folic acid-vit B6-vit B12) 1 TAB PO WILMAN YInsulin (Glargine) Inj (Lantus Inj) 18 UNITS SUBQ QAMIns ulin Lispro InJ (HumaLOG Inj) SUBQ AC HS (UNITSUNITS)Isosorb lan Mononitrate ER Tab (Imdur Tab) 30 MG PO DAILYLan tus Solostar 100 unit/mL (3 mL) subcutaneous insulin pen (insulin glargine)18 UNITS SUBQ QAM (Inject 18 u nits every morning.), Disp: 5 x 3 mL syringe,Refills: 2Meto prolol Succinate XL Tab (Toprol XL Tab) 25 MG PO DAILYmetroNIDAZOLE Tab (Flagyl Tab) 500 MG PO Q8 HRRanexa tablet,extended release (ranolazine) 1000 MG PO BID -- DISCHARGE INSTRUCTIONS -- ADDTIONAL DISCHARGE INSTRUCTIONS:Emergency Instructions: The patient was [facility] or call 911 should their symptoms return or worsen. ; Signed in PatientKeeper by Erasmo Fay MD on 08/21 at 12:09 at 1209ATTENTION EDITS and/or ADDENDA must be ma de in Patient Keeper for this note. Edits and ammen dments created in Uniplaces are not visible in Patien t Keeper or the legal medical record ([facility]). RPT #: [id number] OF REPORT DSDischarge [id number]:07:[id number] e for patient [id number]:10 :30 2022-04-18 [id number]:22:00 [facility] 03:22:00 [facility] ([facility])EMERGENCY PROVIDER REPORTREPORT#:[id number] REPORT STATUS: SignedDAT E:04/18/22 TIME: 0322 PATIENT: LIZZIE HINKLE UNIT #: [id number]#: [id number] ROOM: BED:AGE: 71 SEX: F PCP PHYS: Erasmo Fay MDSERVICE DT: 03/31 01/20 AUTHOR: Sara Almendarez MD * ALL edits or amend ments must be made on the electronic/computer document * HP I-Abd Pain F 40 and Over GeneralInitial Greet Date/Time 0220 PresentationChief Complaint Abdominal painHx Obt ained From Patient, Spouse, EMSSudden in Onset? NoOnset Occ urred One week agoSymptom Duration Since onsetProgression since Onset Intermittent, Waxes and wanesCaused by No trauma by historyLocation DiffuseQuality CrampingRadiation No: Does not radiate. Migration/Movement NoneSeverity: On set MildSeverity: Current ModerateAssociated withRep orts: Constipation, Urinary frequency. Denies: Diarrhe a, Dysuria, Nausea. Associated Other Pt denies other symptomsExacerbated by NothingRelieved by Nasrin isaac Free Text HPI NotesFree Text HPI [id number] old F with DM, blindness presents for evaluation of diffuse abd cramping. Pt reports 1-2 weeks constipation, has not passed a bowl mo vement in at least a week. No n/v. C/o rectal pain. Has no t tried any laxatives. No fever. No prior abd surgeries. Tonia n is cramping, moderate, non-radiating. She also repo rts urinary frequency without dysuria or flank pain Risk-Abd Pain F 40 and Over)( Abdominal Aortic Aneurysm No risk fac tors Review of Systems ROS StatementsAll systems rev neg exc ept as marked. Focused Review of SystemsGIReports: Abdo gabby pain, Constipation. Denies: Diarrhea. FemaleReports : Urinary frequency. Denies: Dysuria, Flank pain. Past Med ical History - AdultStated Complaint CONSTIPATIONAlle rgiesCoded Allergies:lisinopril (Severe, ANGIOEDEMA 2)codeine (DROWSINESS/very sleepy 02/20/22) Home Medicatio nsActive ScriptsInsulin Glargine (Lantus Solostar) 18 UNI TS SUBQ QAM Insulin Glargine (Lantus Solostar) 18 UNITS SUBQ QAM #5 SYR Ref 2 Prov: 03/14/22 Reported MedicationsMetopro lol Succ Xl (Toprol Xl) 25 MG PO DAILY Ezetimibe (Zetia) 10 MG PO DAILY Ranolazine Er (Ranexa) 1,000 MG PO BID Isosorbid e Mononitrate Sr (Imdur) 30 MG PO DAILY [DME - INS ULIN PEN NE] 1 EACH MISC ASDIR [DME - GLUCOSE STRIPS] 1 E ACH MISC QID [DME - GLUCOSE LANCET] 1 EACH MISC QID Dicyc lomine (Bentyl) 10 MG PO TID PRN ABDOMINAL CRAMPS/PAIN Metronidazole (Flagyl) 500 MG PO Q8HR Aspirin 8 1 MG PO DAILY Clopidogrel Bisulfate (Plavix) 75 MG PO DA JEROME Cyanocobalamin/Fa/Pyridoxine (Folbee) 1 TAB PO D AILY Insulin Lispro (Humalog) Famotidine (Pepcid) 20 MG PO Q12HR Insulin Glargine (Lantus) 18 UNITS SUBQ QAM Damian tional Medical HistoryHistory of diabetes on insulinAdd itional Surgical HistoryNonePt reports no Fam Hx pert to chief complaint.Smoking status for patients 13 years o ld or older: Unknown,if ever smokedAdditional Social H istoryLives with spouse Physical Exam Vital SignsVital Signs First Documented: Result Date Time Pulse Ox 100 04/18 226 B/P 143/87 04/18 226 B/P Mean 105 04/18 226 O2 [place] Room air 04/18 226 Temp 36.7 04/18 226 Pulse 89 225 Resp 20 04/18 226 Last Documented: Result Date Time Pulse Ox 100 04/18 0730 B/P 131/77 04/18 0730 B/P Mean 98 04/18 07 Pulse 77 04/18 07 O2 Delivery Room air 225 Temp 36.7 04/18 226 Resp 20 04/18 226 Review o f Vital Signs Reviewed Focused PEGeneral/Const Genera l/Const Awake, Alert, No acute distressMS Head Head Atra umatic, NormocephalicEyes Eyes Atraumatic, PERRL, EOMIEars/Nose/Throat Ears/Nose/Throat Atraumatic , Airway patent, Mucous membranes moistResp/Chest Respiratory/Chest Atraumatic, Breath sounds NL, No respiratory distressCardiovascular Cardiovasc ular Heart rate NL, Regular rhythm, Heart sounds NLAbdomen/ GI Abdomen/GI Soft, Non-tender, No guarding, No patito oundMS Back Back Atraumatic, Inspection NL, Non-tenderSki n Skin Atraumatic, Color NL, No rashNeurologic Neurolog ic Oriented X3, Speech NL, No motor deficits Interpretation Diagnostics Lab Results InterpretationResultsLaboratory Test s 04/18/22299:[Embedded Image Not Available]Laboratory Te sts: 04/18 042 Chemistry Sodium (135 - 145 mmol /L) 135 Potassium (3.5 - 5.1 mmol/L) 4.1 Chloride (98 - 107 mmol/L) 101 Carbon Dioxide (21 - 32 mmol/L) 26 Anion Gap (2.0 - 16.0) 12.1 BUN (4 - 23 mg/dL) 26 H Creatinine (0 .6 - 1.5 mg/dL) 1.5 Glomerular Filtr Rate (>60 ml/min) 37 L BUN/Creatinine Ratio (12.0 - 20.0) 17.3 Glucose (65 - 99 mg/dL) 289 H Calcium (8.5 - 10.1 mg/dL) 9.0 Tot al Bilirubin (0.2 - 1.2 mg/dL) 0.3 Direct Bilirubin (0.0 - 0.3 mg/dL) 0.1 Indirect Bilirubin (0.0 - 0.8 mg/dL) 0.2 AST (15 - 37 U/L) 17 ALT (6 - 50 U/L) 19 Total Alk P hosphatase (45 - 117 U/L) 87 Troponin I High Sens (0 - 53 p g/mL) 11 Total Protein (6.4 - 8.2 g/dL) 8.4 H Albumin (3. 4 - 5.0 g/dL) 3.3 L Globulin (2.3 - 3.5 g/dL) 5.1 H Lipa se (73 - 393 U/L) 230 Hematology WBC (4.5 - 11.0 10 3/uL) 4.6 RBC (3.50 - 5.50 10 6/uL) 3.71 Hgb (12.0 - 16.0 g/dL ) 11.1 L Hct (37.0 - 55.0 %) 33.8 L MCV (81 - 102 fL) 91 MCH (26.0 - 34.0 pg) 29.9 MCHC (31.0 - 37.0 g/dL) 32.8 RDW ( 11.6 - 14.4 %) 13.4 Plt Count (150 - 400 10 3/uL) 270 MPV ( 9.0 - 12.6 fL) 10.8 Neut % (Auto) (33.0 - 76.0 %) 49.3 Lym ph % (Auto) (14.0 - 56.4 %) 38.2 Lanier % (Auto) (0.0 - 12.9 % ) 9.9 Eos % (Auto) (0.0 - 7.0 %) 1.5 Baso % (Auto) (0 - 2.0 %) 0.7 Neut # (Auto) (1.5 - 7.0 10 3/uL) 2.24 Lymph # ( Auto) (1.50 - 4.00 10 3/uL) 1.74 Lanier # (Auto) (0.20 - 0.80 10 3/uL) 0.45 Eos # (Auto) (0.0 - 0.5 10 3/uL) 0.07 Baso # (Auto) (0.0 - 0.1 10 3/uL) 0.03 Abs Immat Gran (auto) ( 0.000 - 0.100 x10 3/uL) 0.020 Immature Gran % (0.0 - 1.0 %) 0.4 Nucleated RBC % (0 - 0.2 %) 0.0 Nucleated RBCs # (0.000 - 0.012 10 3/uL) 0.000 Urines Urine Color (YELLOW) YELLOW Urine Appearance (CLEAR) CLOUDY H Urine pH (5.0 - 8.0) 5.0 Ur Specific [place] (1.005 - 1.025) 1.039 H Urin e Protein (NEGATIVE) 1+ H Urine Glucose (UA) (NEGATIVE) 3 + H Urine Ketones (NEGATIVE) NEGATIVE Urine Blood (NEGATIV E) 1+ H Urine Nitrite (NEGATIVE) NEGATIVE Urine Bilirubi n (NEGATIVE) NEGATIVE Urine Urobilinogen (0.1 - 0 .2 EU/dL) NEGATIVE Ur Leukocyte Esterase (NEGATIVE) 1+ H U rine RBC (0 - 3 /hpf) 6-10 H Urine WBC (0 - 3 /hpf) 51-100 H Ur Squamous Epith Cells (FEW /HPF) Many Urine Bacte yamile (NEGATIVE /HPF) RARE Hyaline Casts (NONE SEEN / lpf) 6-10 Urine Mucus (/lpf) OCCASIONAL Microbiology: Landen e/Time Procedure - Status Source Growth 04/18 7757 Urin e Culture - RES URINE ENTEROCOCCUS SPECIES Recent Impression s:CAT SCAN - CT ABD PELVIS W/CONT 04/18 0330 Report Impr ession - Status: SIGNED Entered: 04/18/2022 0343 IMPRESSI ON: 1. No acute findings demonstrated in the abdomen and p shyam. 2. Moderate to large volume stool in the colon and rectum. Noevidence of colonic obstruction. Impression By : [email or web address] - Jennifer Ramirez MD Lab Imaging StatementLaboratory radiographic studies review ed and considered in the medical decision-making. ECG # 1 InterpretationInterpreted by and reviewed by Tootie Lambert ECG Interpretation Normal rate, Normal sinus rhythm, No acute ischemic changes, No STEMIRate 82 Re-Evaluation MDM Free Text MDM NotesFree Text MDM [id number] old F with generalized abd cramping and constipation. CT re veals large amount of stool in colon, no impaction or SBO. A bd is soft and non-tender. Labs wnl. UA +. Will cover with abx. Discussed recommended laxtives, pt will try enem a at home. Return precautions given. )( Re-Evaluation/Progr ess #1)( Re-Eval Status Improved ED CourseMedication(s) OrderedMedication(s) Ordered:Gastrointestinal ugs Sig/Chris Start time Last Medication Dose Route Stop Time Status Admin Polyethylene Glycol 1 PKT ONCE ONE 04/18 0 400 DC 04/18 PO 04/18 0401 0406 Sodium Biphosphate/ 133 ML X1ED STA 04/18 0348 CAN Sodium Phosphate RECTAL 04/18 0349 Docusate Sodium 100 MG X1ED STA 04/18 0347 DC 1 06/19 PO 04/18 0348 0406 Patient Discharge Departure Jen l Signs/ConditionVital SignsFirst Documented: Res ult Date Time Pulse Ox 100 04/18 0226 B/P 143/87 04/18 B/P Mean 105 04/18 0226 O2 Delivery Room air 04/18 226 T emp 36.7 04/18 226 Pulse 89 04/18 022 Resp 20 04/18 02 26 Last Documented: Result Date Time Pulse Ox 100 04/18 0730 B/P 131/77 04/18 0730 B/P Mean 98 04/18 0730 Pulse 7 7 04/18 0730 O2 Delivery Room air 04/18 226 Temp 36.7 04/18 022 Resp 20 04/18 022 All vital signs available at the time of this entry have been reviewed. Condition Stable Clinical ImpressionClinical ImpressionPrimary Impression: ConstipationSecondary Impressions: Acute urinary tract infectionTime of Impression 07 Disposition DecisionDischarge )( Discharged to Home Yes )( T eduardo 7695 )( Date 04/18/22 Discharge/Care PlanCounseled Maria G magdaleno Diagnosis, Lab results, Imaging studies, Prescri ptions, Needfor follow-up(Auto) PrescriptionsCurrent Vis it Scriptspolyethylene glycoL 3350 (Miralax) 17 GM PO ASDIR polyethylene glycoL 3350 (Miralax) 17 GM PO ASDI R #30 PACKET Take as per label instructions. Cefdinir (Omnicef) 300 MG PO Q12H 7 Days #14 CAPS Patient Instruct ions ED Constipation (Adult), Urinary Tract Infections i n WomenAdditional InstructionsMiraLAX once daily a nd Colace twice daily as needed until having regular soft bowel movements. Use a fleets enema as needed for ongo ing constipation. Follow-up closely with primary car e doctor and return to ER for new or worsening symptomsReferralsProvider Referral: Andrey Grady MD Address: [address] [facility], [address] [place] [address] Joselyn ctronically Signed by Sara Almendarez MD on 04/19/22 at 102 6RPT #:[id number] OF REPORTEDEmergency depart ment [id number]:22:[id number] vailable for patient [id number]:27:1 7 2022-03-30 [id number]:57:00 [facility] 13:57:00 [place] ([facility] Med. Discharge Summary REPO RT #: [id number] REPORT STATUS: Signed DATE: 03/30/22 T EDUARDO: 1357 PATIENT: DANIELE HINKLE UNIT #: [id number] ROOM #: NC.2103 BED: 1 : 3 AGE: 71 SEX: F ATTEND: Erasmo Fay MD ADM DT: AUTHOR: Britney Winchester DO ATTENTION EDITS and/or ADDENDA must be made i n Patient Keeper for this note. Edits and ammendments c reated in Uniplaces are not visible in Patient Keeper or the legal medical record (HPF). -- PROBLEMS/PROCEDURES -- ADMISSIO N DATE:01/29/22 ADMITTING DIAGNOSES: - Acute metab olic encephalopathy - CAD (coronary artery disease) - Chronic kidney disease, stage 3a - Cognitive impairment - Constipation - Diabetic visual loss: better eye: profound vision impairment; lesser eye:near-total vision impairment, with macular edema, with retinopathy, associated with type 1 diabetes mellitus - Elevated liver function test s - Hypertension - Hypokalemia - Mixed hyperlipidemi a - Overactive bladder - Peripheral arterial disease - Rectal pain - Respiratory failure with hypoxia - Type 1 diabetes mellitus with diabetic chronic kidney disease - Type 1 diabetes mellitus with diabetic polyneuropathy - Type 1 diabetes mellitus with ketoacidosis without coma - Type 1 diabetes mellitus with ketoacidosis, uncontrolle d - UTI (urinary tract infection) DISCHARGE DATE: 2 DISCHARGE DIAGNOSES: - Acute metabolic encephalopathy - CA D (coronary artery disease) - Chronic kidney disease, stage 3a - Cognitive impairment - Constipation - Diabetic v isual loss: better eye: profound vision impairment; lesser eye:near-total vision impairment, with macular e zaki, with retinopathy, associatedwith type 1 diabetes yuliet itus - Elevated liver function tests - Hypertension - H ypokalemia - Mixed hyperlipidemia - Overactive bladder - Pe ripheral arterial disease - Rectal pain - Respiratory noelle lure with hypoxia - Type 1 diabetes mellitus with diabetic chronic kidney disease - Type 1 diabetes mellitus with d iabetic polyneuropathy - Type 1 diabetes mellitus with k etoacidosis without coma - Type 1 diabetes mellitus with ket oacidosis, uncontrolled - UTI (urinary tract infection) -- HOSPITAL COURSE -- HOSPITAL COURSE: patient with hx of DM , and poor complaince due to various social issues,blindnes s, and some cognitive decline, presents again with high gluc osereadings in DKA. She requiried intubation on presentation . Pt was admitted toICU and monitored closely by critical care and endo teams. She was able to beextubated on 02/02 . Her anion gap was closed with insulin drip and pt had slow but steady improvement of her symptoms. Her urine culture s howed yeast and pthad diflucan added on to her empiric abx. Pt continued to improve and wasdischarged to SNF on 02/08 -- DISCHARGE MEDICATIONS -- ALLERGIES:codeine (Inte rmediate - Allergy)lisinopril (Intermediate - Allergy) -- D ISCHARGE INSTRUCTIONS -- ADDTIONAL DISCHARGE INSTRUCTIONS :Emergency Instructions: The patient [facility] or call 911 should t heir symptoms return or worsen.; Signed in PatientKee per by BRITNEY WINCHESTER DO on 03/30/22 at 13:57 Electron ically Signed by Britney Winchester DO on 03/30/22 at 1357ATTENTION EDITS and/or ADDENDA must be ma de in Patient Keeper for this note. Edits and ammen dments created in [employer] are not visible in Patien t Keeper or the legal medical record (HPF). [facility] #: [id number] OF REPORT DSDischarge [id number]:57:[id number] 3AVAvagood e for patient [id number]:02 :43 2022-03-14 [id number]:25:00 [facility] 12:25:00 [place] [facility]Med Order Sheet REPORT #: [id number] REPORT STATUS: Signed DATE: 03/14/22 TIME: 1225 PATIENT : LIZZIE HINKLE UNIT #: [id number] #: [id number] ROOM #: NC.2201 BED: 1 : 3 AGE: 71 SEX: F ATTEND: Erasmo Fay MD ADM DT: 1 05/11/21 AUTHOR: Erasmo Fay MD ATTENTION EDITS and/or ADDENDA must be made i n Patient Keeper for this note. Edits and ammendments c reated in [facility] are not visible in Patient Keeper or the legal medical record (HPF). Discharge Medication Reconciliatio n DISCHARGE MEDICATION LISTAspirin Chewable Tab (Aspirin Ashley wable Tab) Dose: 81 MG PO DAILYClopidogrel Tab (Plavix Tab) Dose: 75 MG PO DAILYDicyclomine Cap (Bentyl Cap) Dose: 10 MG PO TID PRN abdominal cramps/painDME - GLUCOSE LANCETS D ose: 1 EACH MISC QID - Glucose Lancets of ChoiceDME - GLUCOS E STRIPS Dose: 1 EACH MISC QID - Glucose Strips of Choice DME - INSULIN PEN NEEDLES Dose: 1 EACH MISC ASDIR - In sulin Pen [place] of choice.Ezetimibe Tab (Zetia Tab) Dose : 10 MG PO DAILYFamotidine Tab (Pepcid Tab) Dose: 20 MG PO G24DAOpviuo 2.5 mg-25 mg-1 mg tablet (folic acid-vit B6-vit B12) Dose: 1 TAB PO DAILYInsulin (Glargine) Inj (Lantus Inj ) Dose: 18 UNITS SUBQ QAMInsulin Lispro InJ (HumaLOG Inj) D ose: UNITS SUBQ AC HS - UNITSIsosorbide Mononitrate ER Tab (Imdur Tab) Dose: 30 MG PO DAILYLantus Solostar 100 unit/mL (3 mL) subcutaneous insulin pen (insulin glargine) Dose : 18 UNITS SUBQ QAM, Disp: 5 x 3 mL syringe, Refills: 2 - I nject 18 units every morning.Metoprolol Succinate XL Tab (Toprol XL Tab) Dose: 25 MG PO DAILYmetroNIDAZOLE Tab (Flag yl Tab) Dose: 500 MG PO B4HYVtfuru tablet,extended relea se (ranolazine) Dose: 1000 MG PO BID STOPPED HOSPIT AL MEDICATIONSDc'd: 1/2NS (1/2NS) 1000ML 200 MLS/HR IV ASDIRDc'd: D5W-1/2NS (D5W-1/2NS)1000ML 150 MLS/H R IV ASDIRDc'd: Dextrose Chewable Tab (Glucose Chewab le Tab)16GM PO ASDIR PRN hypoglycemia protocolDc'd: Folic Ac id Tab (Folvite Tab)3MG PO DAILYDc'd: Pyridoxine Tab (V itamin B-6 Tab) 50MG PO DAILYDc'd:Cyanocobalamin Tab (Vitam in B-12 Tab) 1000MCG PO DAILYDc'd: Glucagon Inj(Glucagon Inj) 1MG IV ASDIRDc'd: Magnesium Sulfate 1Gm IVPB (Magnes ium Zijhiub4Cs IVPB) 1GM 100 MLS/HR IV ASDIR PRN mg level 1.8-2Dc'd: Magnesium Bebtpjx9Lu IVPB (Magnesium Sulfate 1Gm IVPB) 1GM 25 MLS/HR IV Q1H X 4 doses PRN magleve l less than 1.5Dc'd: Magnesium Sulfate 1Gm IVPB (Magnesium S ulfate 1GmIVPB) 1GM 50 MLS/HR IV Q1H X 2 doses PRN mag level 1.5-1.7Dc'd: MupirocinOintment 2% (Bactroban Oin tment 2%) 1APPLIC NASAL BID X 10 dosesDc'd:Potassium Chlor lan 20mEq IVPB (KCL 20mEq IVPB) 20MEQ 100 MLS/HR IV ASDIRDc'd:Potassium Effervescent Tab (Effer-K Ta b Effervescent) 20MEQ PO ASDIRDc'd: SodBiphos/Pota s Phos Packet (Neutra-Phos Packet) 1PKT PO ASDIR PRN phosphorussliding scaleDc'd: Sodium Chloride 0.9 % (NS) 1000ML 200 MLS/HR IV ASDIRDc'd:Sodium Chloride 0 .9% (NS) 1000ML KVO IV Dc'd: Sodium Phosphate Inj (Sodium Phosphate Inj) 15MM IV ASDIR PRN phosphorus sliding scalei n Sodium Chloride0.9% (NS) 250MLDc'd: Sodium Phosphate In j (Sodium Phosphate Inj) 20MM IV ASDIR PRNphosphorus slidi ng scalein Sodium Chloride 0.9% (NS) 250MLDc'd: Sodium Phos phate Inj (Sodium Phosphate Inj) 30MM IV ASDIR PRNphosphor us sliding scalein Sodium Chloride 0.9% (NS) 500MLElectroni khloe Signed in PatientKeeper by ERASMO CRAIN I on 03/14/2212:25 at 1225ATTENTION EDITS and/or ADDENDA must be ma de in Patient Keeper for this note. Edits and ammen dments created in [facility] are not visible in Patien t Keeper or the legal medical record (HPF). RPT #: [id number] OF REPORT CLClinical [id number]:25:[id number] Available for patient [id number]:26:1 3 2022-03-14 [id number]:00:00 [facility] DICSUKHJINDER HCANC 09:00:00 [facility] ([facility])Cardiology Progress Notes REPORT # : [id number] REPORT STATUS: Signed DATE: 03/14/22 TIME: 09 PATIENT: LIZZIE HINKLE UNIT #: [id number] #: [id number] ROOM #: NC.2201 BED: 1 : 3 AGE: 71 SEX: F ATTEND: Erasmo Fay MD ADM DT: AUTHOR: Andreina Oliva MD ATTENTION EDITS and/or ADDENDA must be made i n Patient Keeper for this note. Edits and ammendments c reated in [employer] are not visible in Patient Keeper or the legal medical record (HPF). -- ASSESSMENT AND PLAN -- PROBLEMS : 1: NSTEMI (non-ST elevated myocardial infarction)A/P: - EC G - SR, rate 97- Tn peaked at 2447 03/11/22 then trendin g down- she has uncontrolled DM thus can be asymptomatic for that reason- TTE 08/20 - EF 55-60%, G1DD, m MR, mM AV scl, no PC eff- TTE 03/11/22 - EF 60-65%- driven by seconda ry phenomenon (DKA/ADOLFO); denies any CP or SOB- c/w ASA 81 mg QD, plavix 75 mg QD, toprol 25 mg QD, imdur 30, ranexa 1000 BID- d/c heparin gtt 03/14/22- not on statin due to severe myalgias, on zetia- Given her NSTEMI, I discusse d the options of CABG vs. PCI vs. medical therapywith the patient. I explained to her that she is high ris k for procedure andsurgery related complications given her inconsistent medication intake anduncontrolled D M. I advised her that risks of CABG can include a serioussternotomy wound infection and poor wound healing in the setting of DM. She isalso not an ideal dyan date for PCI given she cannot reliably take dualantiplate let therapy and has uncontrolled DM which would put her at h igh riskfor in-stent restenosis/thrombosis which would be fa terra. Given that she isasymptomatic, stable, would treat wit h medical therapy for NSTEMI with DAPT,therapeutic AC- hx of noncompliance with medications 2: CAD (coronary artery disease)A/P: - LHC 10/19: RCA mid 100% with lt-to -rt collater ,CX mid 60-70%, MOM prox8-0%, LAD prox and mid two consecutive 60-70% stenoses with near-significan tFFR of 0.81, D2 ostial 70% then prox 80% sten, edp 3 -- > eval for 4v acb tolad, d2, mom, and distal RCA --> Dr Christopher diaz need for ACB yet he wishes towait and do it on O P basis once a1c is lower and once compliance is documen sarah beth- DKA/NSTEMI adm 04/20 + 08/20 + 03/22; family opte d for medical management- admitted for DKA 03/22- asp, plavix, lipitor, toprol, imdur, ranexa- TTE 08/20 - EF 55 -60%, G1DD, m MR, mM AV scl, no PC eff- TTE 03/11/22 - EF 60 -65% 3: DKA (diabetic ketoacidoses)A/P: - A1C >14.0% 08/20; A 1C 11.0% 03/22- strict glycemic control- mxm per endo/pernell tyra- compliance encouraged - transferred out of ICU 4 : acute renal failureA/P: ac d/t dehydration/DKAmonitor BMPavoid nephrotoxinsbaseline Cr 0.9 --> 1.4 03/11/22 --> 1.2 03/14improving 5: PADA/P: -80% sten ostial rt SF A on lted groin angio with lhc 10/19-laus 10/19: Change from triphasic to monophasic waveforms in the right femoralarte ry and at the left lower leg below the popliteal artery landin ggesting stenosis.-rec RO and poss well logging captain mud analysis in the future once compliance confirmed and improvement yiI9B-lrs, plav, kali r BS ctrl-avoid low BP 6: Statin intoleranceA/P: - se maya myalgias on lipitor- on zetia 7: NoncomplianceA/ P: - encouraged compliance with meds -- SUBJECTIVE -- PATIENT NARRATIVE:No acute events. -- OBJECTIVE -- VITAL S (03/13 09:00 - 03/14 09:00):Temperature C: 36.8 (36.7 - 37.1)Temperature source: OralPulse Rate 90 (86 - 92)Respiratory rate: 16 (14 - 20)BP: 160/79 (126 /67 - 160/83) -EXAM- OTHER: General: Well developed, well nourished, in no apparent distress. Head: Norm ocephalic, atraumatic. Eyes: PERRL, EOM intact, conjuncti va and sclera clear Chest: Grossly normal appearance . Lungs: Clear bilaterally with normal respiratory effort . Heart: Regular rate and rhythm, normal S1, S2, no murmu rs, no rubs, no gallops Abdomen: Soft, non-tender, n o organomegaly, no masses noted Extremities: No clubbing, no cyanosis, no edema. Neurological: No focal deficits, normal muscle strength, normal tone. Pulses: P ulses normal in all extremities. Skin: Intact witho ut significant lesions, or rashes -- DATA -- MEDIC ATIONS MAGNESIUM 1 GM IV Q1H (PRN)CYANOCOBALAMIN 1000 M CG PO DAILYMAGNESIUM 1 GM IV Q1H (PRN)SODIUM PHOSPHATE with/in SODIUM CHLORIDE 0.9% 15 MM IV ASDIR (PRN)RANOLAZ INE 1000 MG PO [id number] 75 MG PO DAILYFAMOTIDINE 20 MG PO DAILY@2100SODIUM PHOSPHATE with/in SODIUM CHLORI DE 0.9% 30 MM IV ASDIR (PRN)PYRIDOXINE HCL 50 MG PO DAILYPO TASSIUM CHLORIDE 20 MEQ IV ASDIRDICYCLOMINE HCL 10 MG PO TID PRNISOSORBIDE MONONITRATE 30 MG PO DAILY ASPIRIN 81 MG PO DAILYMETOPROLOL SUCCINATE 25 MG PO DAILYGLUCAGON 1 MG IV ASDIRDEXTROSE 16 GM PO ASDIR (PRN)SODIUM CHLORID E 0.9% 1000 ML IV .[id number] 1 APPLIC NASAL BIDHEPARIN SODIUM,PORCINE 4500 UNIT IV ASDIR (PRN)HEPARIN SODIUM,PORCINE 2000 UNIT IV ASDIR (PRN)SODIUM PH OSPHATE with/in SODIUM CHLORIDE 0.9% 20 MM IV ASDIR (PRN )EZETIMIBE 10 MG PO DAILYINSULIN LISPRO 0 UNITS SUBQ AC HSM AGNESIUM 1 GM IV ASDIR (PRN)SOD BIPHOS/POT PHOSPHATE 1 PKT PO ASDIR (PRN)FOLIC ACID 3 MG PO DAILYHEPARIN SODIUM,PORC INE/D5W 81256 UNIT IV TITRATESODIUM CHLORIDE 0.45% 1000 ML IV ASDIRINSULIN GLARGINE 18 UNITS SUBQ QAMSODIUM CH LORIDE 0.9% 1000 ML IV ASDIRDEXTROSE 5%-0.45% SALINE 1000 ML IV ASDIRPOTASSIUM BICARBONATE/CIT AC 20 MEQ PO ASDI R LABS GLU BED (03/14/22 05:15)GLUBED 229 H PTT (03/14/22 02:36)THROMBOPLASTIN TIME PARTIAL 52.5 H CBC W/A UTO DIFF (03/14/22 02:36)WHITE BLOOD CELL 3.0L LRED BLOOD CELL 2.78 LHEMOGLOBIN 8.4L LHEMATOCRIT 25.4L LMEAN CELL VO LUME 91MEAN CELL HGB 30.2MEAN CELL HGB CONCENTRATION 33.1RED CELL DISTRIBUTION WIDTH 15.0 HPLATELET COUNT 226MEAN PLATELET VOLUME 10.8NEUTROPHIL % 38.6IMMATURE GRANULOCYTE % 0.3LYMPHOCYTE % 45.3MONOCYTE % 12.8EOSINOPHIL % 2.3BASOPHIL % 0.7NUCLEATED RBC % 0.0NEUTROPHIL # 1.15 LIMMAT URE GRANULOCYTE # 0.010LYMPHOCYTE # 1.35 LMONOCYTE # 0.38EOSINOPHIL # 0.07BASOPHIL # 0.02NUCLEATED RB C # 0.000 MAG (03/14/22 02:36)MAGNESIUM 1.7 L BASIC METABO LIC PANEL (03/14/22 02:36)SODIUM 135 POTASSIUM 4.0CHLORIDE 103CARBON DIOXIDE 27ANION GAP 9.0GLUCOSE 195D H D HBLOOD U JACQUE NITROGEN 12GLOMERULAR FILTRATION RATE 49 LCREATI NINE 1.2BUN/CREATININE RATIO 10.0 LCALCIUM 8.5 PTT (1 05/13/21 21:10)THROMBOPLASTIN TIME PARTIAL 52.3 H GLU BED (03/13/22 19:19)GLUBED 161 H GLU BED (03/13/22 17:49)GLUB ED 146 H GLU BED (03/13/22 16:25)GLUBED 54 L PTT ( 2 15:12)THROMBOPLASTIN TIME PARTIAL 50.9 H GLU BED (03/13/22 11:37)GLUBED 202 H Signed in PatientKeeper by Andreina Grier MD on 03/14/22 at 09:44 at 0944ATTENTION EDITS and/or ADDENDA must be ma de in Patient Keeper for this note. Edits and ammen dments created in [facility] are not visible in Patien t Keeper or the legal medical record (HPF). [facility] #: [id number] OF REPORT PRProgress [id number]:00:[id number] Available for patient [id number]:44:4 2 2022-03-14 [id number]:16:00 [facility] 08:16:00 [facility] ([facility])Endocrinology Progress Note REPORT #: [id number] REPORT STATUS: Signed DATE: 03/14/22 T EDUARDO: 0816 PATIENT: LIZZIE HINKLE UNIT #: [id number] CCOUNT #: [id number] ROOM #: NC.2201 BED: 1 : 3 AGE: 71 SEX: F ATTEND: Erasmo Fay MD ADM DT: AUTHOR: Nini Doan MD ATTENTION EDITS and/or ADDENDA must be made i n Patient Keeper for this note. Edits and ammendments c reated in [facility] are not visible in Patient Keeper or the legal medical record (HPF). -- ASSESSMENT AND PLAN -- PROBLEMS : 1: Type 1 diabetes mellitus with ketoacidosis without coma A/P: UNCONTROLLED (EUGA7A=17.0%,HYPERGLYCEMIA) TYPE I DM IN DKA. DKA RESOLVED:EKM=175 HS SVIXMQK=115 AG=9.0). OBS ERVE ON PRESENT SQ BASAL/BOLUS INSULIN. MUSTHAVE A BEDTI ME SNACK. -- SUBJECTIVE -- CHIEF COMPLAINT:HYPERGLYCEMIA H PI: EVENTS NOTED: OUT OF ICU. TOLERATING DIET. HAD BEDTIMES NACK. GOING HOME TODAY. -REVIEW OF SYSTEMS- GENERAL: Negativ e for feverRESPIRATORY: Negative for dyspneaCARDIOVASC ULAR: Negative for palpitations.GASTROINTESTINAL: Nega tive for abdominal pain or nauseaENDOCRINE: Negative for polyphagia, polydipsia, polyuria -- OBJECTIVE -- VITALS ( 08:16 - 03/14 08:16):Temperature C: 36.8 (36.7 - 37.1)Te mperature source: OralPulse Rate 90 (86 - 92)Respiratory r ate: 16 (14 - 20)BP: 160/79 (126/67 - 160/83) -EXAM- GENERAL : Well developed, well nourished, in no apparent distre ss, THINHEAD: Normocephalic, atraumatic.EYES: LEGALL Y BLINDNECK: trachea midline.CHEST: Grossly shannan l appearance.LUNGS: NORMAL CHEST WALL MOVEMENTHEAR T: NO TACHYCARDIAABDOMEN: NON-DISTENDED NEUROLOGICAL: NORMAL SPEECHPSYCHIATRIC: Alert and oriented to time, p erson, place. -- DATA -- MEDICATIONS MAGNESIUM 1 GM IV Q1H (PRN)CYANOCOBALAMIN 1000 MCG PO DAILYMAGNESIUM 1 GM IV Q1H (PRN)DEXTROSE 50%-WATER 50 ML IV ASDIRSODIUM JUMANA SPHATE with/in SODIUM CHLORIDE 0.9% 15 MM IV ASDIR (PRN )RANOLAZINE 1000 MG PO [id number] 75 MG PO DAILYFAMOTI DINE 20 MG PO DAILY@2100SODIUM PHOSPHATE with/in SODIUM CHL ORIDE 0.9% 30 MM IV ASDIR (PRN)PYRIDOXINE HCL 50 MG PO WILMAN YPOTASSIUM CHLORIDE 20 MEQ IV ASDIRDICYCLOMINE HCL 10 MG PO TID PRNISOSORBIDE MONONITRATE 30 MG PO DAILYASPIRIN 81 MG PO DAILYMETOPROLOL SUCCINATE 25 MG PO DAILYGLUCAGON 1 MG IV ASDIRSODIUM CHLORIDE 0.9% 1000 ML IV .D91TFPQEPA KENNY 1 APPLIC NASAL BIDHEPARIN SODIUM,PORCINE 4500 UNIT IV ASDIR (PRN)HEPARIN SODIUM,PORCINE 2000 UNIT IV ASDIR ( PRN)SODIUM PHOSPHATE with/in SODIUM CHLORIDE 0.9% 20 MM IV ASDIR (PRN)EZETIMIBE 10 MG PO DAILYINSULIN LISPRO 0 UN ITS SUBQ AC HSMAGNESIUM 1 GM IV ASDIR (PRN)SOD BIPHOS/POT PH OSPHATE 1 PKT PO ASDIR (PRN)FOLIC ACID 3 MG PO DAILYHEPARI N SODIUM,PORCINE/D5W 88700 UNIT IV TITRATESODIUM C HLORIDE 0.45% 1000 ML IV ASDIRINSULIN GLARGINE 18 UNITS SUBQ QAMSODIUM CHLORIDE 0.9% 1000 ML IV ASDIRDEXTROSE 5%-0.45% SALINE 1000 ML IV ASDIRPOTASSIUM BICARBONATE/CIT AC 20 MEQ PO ASDIR LABS GLU BED (03/14/22 05:15)GLUBED 229 H PTT (03/14/22 02:36)THROMBOPLASTIN TIME PARTIAL 52.5 H CBC W/AUTO DIFF (03/14/22 02:36)WHITE BLOOD CELL 3.0 L LRED BLOOD CELL 2.78 LHEMOGLOBIN 8.4L LHEMATOCRIT 25. 4L LMEAN CELL VOLUME 91MEAN CELL HGB 30.2MEAN CELL HGB CO NCENTRATION 33.1RED CELL DISTRIBUTION WIDTH 15.0 HPLATELET C OUNT 226MEAN PLATELET VOLUME 10.8NEUTROPHIL % 38.6 IM MATURE GRANULOCYTE % 0.3LYMPHOCYTE % 45.3MONOCYTE % 12. 8EOSINOPHIL % 2.3BASOPHIL % 0.7NUCLEATED RBC % 0.0NEUTROPHIL # 1.15 LIMMATURE GRANULOCYTE # 0.010LYMPHOCYTE # 1.35 LMONOCYTE # 0.38EOSINOPHIL # 0.07BASOPHIL # 0.02NUCLEATED RB C # 0.000 MAG (03/14/22 02:36)MAGNESIUM 1.7 L BASIC METAB OLIC PANEL (03/14/22 02:36)SODIUM 135POTASSIUM 4.0CHLORIDE 103CARBON DIOXIDE 27ANION GAP 9.0GLUCOSE 195D H D HBLOOD U JACQUE NITROGEN 12GLOMERULAR FILTRATION RATE 49 LCREATI NINE 1.2BUN/CREATININE RATIO 10.0 LCALCIUM 8.5 PTT ( 03/13/22 21:10)THROMBOPLASTIN TIME PARTIAL 52.3 H GLU BED (03/13/22 19:19)GLUBED 161 H GLU BED (03/13/22 17:49)GLUBE D 146 H GLU BED (03/13/22 16:25)GLUBED 54 L PTT (03/13/22 15:12)THROMBOPLASTIN TIME PARTIAL 50.9 H GLU BED (03/13/22 11:37)GLUBED 202 H GLU BED (03/13/22 08:45)GLUB ED 106 H -- ATTESTATION -- TIME SPENT ON PATIENT CARE: - Dir ect 30 minutes CARE ACTIVITIES / CARE COORDINATION: - I have reviewed the history and repeated the ingram elemen ts - I have seen and examined this patient - I have reviewed the progress in the clinical course since the last e xamination - I have discussed the patient's condition with other members of the care team ADDITIONAL DETAIL:I HAV E SPENT 30 MINUTES IN THE EVALUATION AND TREATMENT OF THIS PATIENT. Signed in PatientKeeper by Nini Doan MD on 03/14/22 at 08:18 at 0818ATTENTION EDITS and/or ADDENDA must be ma de in Patient Keeper for this note. Edits and ammen dments created in [facility] are not visible in Patien t Keeper or the legal medical record (HPF). [facility] #: [id number] OF REPORT PRProgress [id number] Available for patient [id number]:19:5 6 2022-03-14 [id number]:45:00 [facility] 07:45:00 [place] ([facility])Family Medicine Progress Note REPO RT #: [id number] REPORT STATUS: Signed DATE: 03/14/22 T EDUARDO: 0745 PATIENT: LIZZIE HINKLE UNIT #: [id number] CCOUNT #: [id number] ROOM #: [place] [address] BED: 1 : AGE: 71 SEX: F ATTEND: Erasmo Fay MD ADM DT: AUTHOR: Erasmo Fay MD ATTENTION EDITS and/or ADDENDA must be made i n Patient Keeper for this note. Edits and ammendments c reated in [facility] are not visible in Patient Keeper or the legal medical record (HPF). -- ASSESSMENT AND PLAN -- PROBLEMS : 1: Type 1 diabetes mellitus with ketoacidosis, uncontrolledA/P:endocrine consultedacidosis reso lvedwill need refill insulin on discharge DC home today i f OK with consultants 2: CAD (coronary artery disease)A/P: with chest pain and elevated troponin, heparin , cardiology consulted, ECHOheparin through this evening, medical therap y, high risk for revaasc 3: Hypertension 4: Hyperlipidem ia 5: Visual impairment 6: Diabetic retinopathy 7: Per ipheral arterial disease 8: HyponatremiaA/P: likely pseudohyponatremia 9: HyperkalemiaA/P: monitor 1 0: Elevated troponinA/P: cardiology consulted, -- SUBJECTIVE -- HPI:feelign better want to go home, no chest tonia n no SOB , no abd opain no other sx -REVIEW OF SYSTEMS- GEN ERAL: Negative for fever, chills, unexplained weight l oss, and fatigueRESPIRATORY: Negative for shortness of br eath, cough, chest congestion, wheezing, hemoptysis, a nd pleuritic painCARDIOVASCULAR: Negative for chest pain, palpitations, dyspnea on exertion, orthopnea, ed venancio and dizzinessGASTROINTESTINAL: Negative for abdomina l pain, nausea, vomiting, diarrhea, constipation, and anorexiaGENITOURINARY: Negative for dysuria, mulugeta quency, or urgency. No gross hematuria. -- OBJECTIVE -- VIT ALS (03/13 09:47 - 03/14 09:47):Temperature C: 36.8 (36.7 - 37.1)Temperature source: OralPulse Rate 90 (86 - 92)Respiratory rate: 16 (14 - 20)BP: 160/79 (126 /67 - 160/83) -EXAM- GENERAL: Well developed, well nou rished, in no apparent distress.NECK: No masses, no thyrome ciara, no abnormal cervical nodes, trachea midline.LUNGS: Respirations unlabored, clear to auscultation bi laterally, no wheezing, no ronchi, no ralesHEART: Regular r ate and rhythm, normal S1, S2, no murmurs, no rubs, no g allops, no clicks.ABDOMEN: + BS soft, flat, nontender, the liver and spleen are not palpable, no palpable masses, no herniasEXTREMITIES: No clubbing, cyanosis or toni maSKIN: No pallor, no jaundice, no rash, normal turgorLYMPH NODES: None palpable cervical, axillary, supraclavicula r or inguinal locationsPSYCHIATRIC: Mood euthymic. Af fect congruent, normal speech. -- DATA -- MEDICATIONS MAGNESIUM 1 GM IV Q1H (PRN)CYANOCOBALAMIN 1000 MCG PO WILMAN YMAGNESIUM 1 GM IV Q1H (PRN)SODIUM PHOSPHATE with/in SODIUM CHLORIDE 0.9% 15 MM IV ASDIR (PRN)RANOLAZINE 1000 MG PO [id number] 75 MG PO DAILYFAMOTIDINE 20 MG PO DAILY@2100SODIUM PHOSPHATE with/in SODIUM CHLORI DE 0.9% 30 MM IV ASDIR (PRN)PYRIDOXINE HCL 50 MG PO DAILYPO TASSIUM CHLORIDE 20 MEQ IV ASDIRDICYCLOMINE HCL 10 MG PO TID PRNISOSORBIDE MONONITRATE 30 MG PO DAILYASPIRIN 81 MG PO DAILY METOPROLOL SUCCINATE 25 MG PO DAILYGLUCAGO N 1 MG IV ASDIRDEXTROSE 16 GM PO ASDIR (PRN)SODIUM CHLORID E 0.9% 1000 ML IV .[id number] 1 APPLIC NASAL BIDSODIUM PH OSPHATE with/in SODIUM CHLORIDE 0.9% 20 MM IV ASDIR (PRN )EZETIMIBE 10 MG PO DAILYINSULIN LISPRO 0 UNITS SUBQ AC HSM AGNESIUM 1 GM IV ASDIR (PRN)SOD BIPHOS/POT PHOSPHATE 1 PKT PO ASDIR (PRN)FOLIC ACID 3 MG PO DAILYSODIUM CHLORIDE 0.4 5% 1000 ML IV ASDIRINSULIN GLARGINE 18 UNITS SUBQ QAMSODIUM CHLORIDE 0.9% 1000 ML IV ASDIRDEXTROSE 5%-0.45% SALINE 10 00 ML IV ASDIRPOTASSIUM BICARBONATE/CIT AC 20 MEQ PO ASDI R LABS PTT (03/14/22 09:10)THROMBOPLASTIN TIME PARTIAL 48.0 H GLU BED (03/14/22 05:15)GLUBED 229 H PTT (03/14/22 02:36)THROMBOPLASTIN TIME PARTIAL 52.5 H CBC W/A UTO DIFF (03/14/22 02:36)WHITE BLOOD CELL 3.0L LRED BLOOD CELL 2.78 LHEMOGLOBIN 8.4L LHEMATOCRIT 25.4L LMEAN CELL VO LUME 91MEAN CELL HGB 30.2MEAN CELL HGB CONCENTRATION 33.1RED CELL DISTRIBUTION WIDTH 15.0 HPLATELET COUNT 226MEAN PLATELET VOLUME 10.8NEUTROPHIL % 38.6IMMATURE GRANULOCYTE % 0.3LYMPHOCYTE % 45.3MONOCYTE % 12.8EOSINOPHIL % 2.3BASOPHIL % 0.7NUCLEATED RBC % 0.0NEUTROPHIL # 1.15 LIMMAT URE GRANULOCYTE # 0.010LYMPHOCYTE # 1.35 LMONOCYTE # 0.38EOSINOPHIL # 0.07BASOPHIL # 0.02NUCLEATED RB C # 0.000 MAG (03/14/22 02:36)MAGNESIUM 1.7 L BASIC METABO LIC PANEL (03/14/22 02:36)SODIUM 135POTASSIUM 4.0 CHLORIDE 103CARBON DIOXIDE 27ANION GAP 9.0GLUCOSE 195D H D HBLOOD UREA NITROGEN 12GLOMERULAR FILTRATION RATE 49 LCREATI NINE 1.2BUN/CREATININE RATIO 10.0 LCALCIUM 8.5 PTT ( 03/13/22 21:10)THROMBOPLASTIN TIME PARTIAL 52.3 H GLU BED (03/13/22 19:19)GLUBED 161 H GLU BED (03/13/22 17:49)GLUBE D 146 H GLU BED (03/13/22 16:25)GLUBED 54 L PTT ( 2 15:12)THROMBOPLASTIN TIME PARTIAL 50.9 H GLU BED (03/13/22 11:37)GLUBED 202 H Signed in PatientKeeper by ERASMO COBOS MD on 03/14/22 at 09:56 at 0956ATTENTION EDITS and/or ADDENDA must be ma de in Patient Keeper for this note. Edits and ammen dments created in [facility] are not visible in Patien t Keeper or the legal medical record (HPF). [facility] #: [id number] OF REPORT PRProgress [id number] Available for patient [id number] 3 2022-03-13 [id number] [facility] 14:29:00 [place] [facility]Family Medicine Progress Note REPO RT #: [id number] REPORT STATUS: Signed DATE: 03/13/22 T EDUARDO: [id number] PATIENT: LIZZIE HINKLE UNIT #: [id number] CCOUNT #: [id number] ROOM #: [place] [address] BED: 1 : 3 AGE: 71 SEX: F ATTEND: Erasmo Fay MD ADM DT: AUTHOR: Erasmo Fay MD ATTENTION EDITS and/or ADDENDA must be made i n Patient Keeper for this note. Edits and ammendments c reated in [employer] are not visible in Patient Keeper or the legal medical record (HPF). -- ASSESSMENT AND PLAN -- PROBLEMS : 1: Type 1 diabetes mellitus with ketoacidosis, uncontrolledA/P:endocrine consultedacidosis reso lved 2: CAD (coronary artery disease)A/P: with chest pain an d elevated troponin, heparin , cardiology consulted, ECHOhe yecenia through this evening, medical therapy, high risk for revaasc 3: Hypertension 4: Hyperlipidemia 5: Vis ual impairment 6: Diabetic retinopathy 7: Peripheral arterial disease 8: HyponatremiaA/P: likely pseudohyponat remia 9: HyperkalemiaA/P: monitor 10: Elevated troponinA/ P: cardiology consulted, -- SUBJECTIVE -- HPI:feeli ng better, calm relaxed, resting easily arousable no chest pain -REVIEW OF SYSTEMS- GENERAL: Negative for fever, chills, unexplained weight loss, and fatigueRESPIRATORY : Negative for shortness of breath, cough, chest congestion , wheezing, hemoptysis, and pleuritic painCARDIOVASCULAR: Ne gative for chest pain, palpitations, dyspnea on exertion, o rthopnea, edema and dizzinessGASTROINTESTINAL: Negative fo r abdominal pain, nausea, vomiting, diarrhea, constipation, and anorexiaGENITOURINARY: Negative for dysuria, mulugeta quency, or urgency. No gross hematuria. -- OBJECTIVE -- VIT ALS (03/12 14:30 - 03/13 14:30):Temperature C: 36.8 (36.3 - 36.8)Temperature source: OralPulse Rate 87 (77 - 90)Respiratory rate: 18 (15 - 19)BP: 129/73 (101 /62 - 151/82) I/Os (03/12 07:00 - 03/13 07:00):Net -8 .80Intake 141.20Output 150 -EXAM- GENERAL: Well developed, well nourished, in no apparent distress.NECK: No mas ses, no thyromegaly, no abnormal cervical nodes, trachea midline.LUNGS: Respirations unlabored, clear to auscultation bilaterally, no wheezing, no ronchi , no ralesHEART: Regular rate and rhythm, normal S1, S2, no murmurs, no rubs, no gallops, no clicks.ABDOMEN: + BS soft, flat, nontender, the liver and spleen are not pa lpable, no palpable masses, no herniasEXTREMITIES: No clubb ing, cyanosis or edemaSKIN: No pallor, no jaundice, n o rash, normal turgorLYMPH NODES: None palpable cervical , axillary, supraclavicular or inguinal locationsPSYCHIATRIC : Mood euthymic. Affect congruent, normal speech. -- D CARRIE -- MEDICATIONS MAGNESIUM 1 GM IV Q1H (PRN)CYANOCOBA BRICE 1000 MCG PO DAILYMAGNESIUM 1 GM IV Q1H (PRN)DEXTROSE 50%-WATER 50 ML IV ASDIRSODIUM PHOSPHATE with/in SODIUM CH LORIDE 0.9% 15 MM IV ASDIR (PRN)RANOLAZINE 1000 MG PO Q12HRc lopidogreL 75 MG PO DAILYFAMOTIDINE 20 MG PO DAILY@2100SODI UM PHOSPHATE with/in SODIUM CHLORIDE 0.9% 30 MM IV ASDIR (PRN)PYRIDOXINE HCL 50 MG PO DAILY POTASSIUM CHL ORIDE 20 MEQ IV ASDIRDICYCLOMINE HCL 10 MG PO TID PRNISOS ORBIDE MONONITRATE 30 MG PO DAILYASPIRIN 81 MG PO DAILY METOPROLOL SUCCINATE 25 MG PO DAILYGLUCAGON 1 MG IV ASDIRSO DIUM CHLORIDE 0.9% 1000 ML IV .[id number] 1 APPLIC NASAL BIDHEPARIN SODIUM,PORCINE 4500 UNIT IV ASDIR (IA N)INSULIN LISPRO 0 UNITS SUBQ AC HSHEPARIN SODIUM,PORCINE 2000 UNIT IV ASDIR (PRN)SODIUM PHOSPHATE with/in SODIUM CH LORIDE 0.9% 20 MM IV ASDIR (PRN)EZETIMIBE 10 MG PO DAILYMAGN ESIUM 1 GM IV ASDIR (PRN)SOD BIPHOS/POT PHOSPHATE 1 PKT PO ASDIR (PRN)FOLIC ACID 3 MG PO DAILYHEPARIN SODIUM,PORC INE/D5W 86593 UNIT IV TITRATESODIUM CHLORIDE 0.45% 1000 ML IV ASDIRINSULIN GLARGINE 18 UNITS SUBQ QAMSODIUM CH LORIDE 0.9% 1000 ML IV ASDIRDEXTROSE 5%-0.45% SALINE 1000 ML IV ASDIRPOTASSIUM BICARBONATE/CIT AC 20 MEQ PO ASDI R LABS GLU BED (03/13/22 11:37)GLUBED 202 H GLU BED ( 08:45)GLUBED 106 H GLU BED (03/13/22 07:07)GLUBE D 43 *L BASIC METABOLIC PANEL (03/13/22 06:07)SODIUM 137 POTASSIUM 3.7CHLORIDE 105CARBON DIOXIDE 28ANION GAP 7.7GLU COSE 52L LBLOOD UREA NITROGEN 13GLOMERULAR FILTRATION RAT E 54 LCREATININE 1.1BUN/CREATININE RATIO 11.8 LCALCIU M 8.2 L MAG (03/13/22 06:07)MAGNESIUM 1.7 L PTT (03/13/22 06:07)THROMBOPLASTIN TIME PARTIAL 72.4 *H CBC W/ AUTO DIFF (03/13/22 06:07)WHITE BLOOD CELL 3.8L LRED BLOOD CELL 3.05 LHEMOGLOBIN 8.9L LHEMATOCRIT 27.7L LMEAN CELL VO LUME 91MEAN CELL HGB 29.2 MEAN CELL HGB CONCENTRATION 32.1RED CELL DISTRIBUTION WIDTH 15.2 HPLATELET COUNT 228 MEAN PLATELET VOLUME 10.5NEUTROPHIL % 44.4IMMATURE GR ANULOCYTE % 0.3LYMPHOCYTE % 39.9MONOCYTE % 12.2EOSINOPHIL % 2.4BASOPHIL % 0.8NUCLEATED RBC % 0.0NEUTROPHIL # 1.67IMMATU RE GRANULOCYTE # 0.010LYMPHOCYTE # 1.50MONOCYTE # 0.46EOSINOPHIL # 0.09BASOPHIL # 0.03NUCLEATED RB C # 0.000 PTT (03/12/22 21:41)THROMBOPLASTIN TIME PARTIAL 62.2 H GLU BED (03/12/22 20:35)GLUBED 152 H GLU BED (03/12 18:18)GLUBED 162 H GLU BED (03/12/22 17:14)GLUBE D 57 L PTT (03/12/22 15:25)THROMBOPLASTIN TIME PARTIAL 63.4 H Signed in PatientKeeper by ERASMO FAY MD on 05/13/21 at 14:32 at 1432ATTENTION EDITS and/or ADDENDA must be ma de in Patient Keeper for this note. Edits and ammen dments created in [facility] are not visible in Patien t Keeper or the legal medical record (HPF). RPT #: [id number] OF REPORT PRProgress [id number] Available for patient [id number]:0 9 2022-03-13 [id number]:31:00 [facility] 11:31:00 [facility]Endocrinology Progress Note REPORT #: [id number] REPORT STATUS: Signed DATE: 03/13/22 T EDUARDO: 1131 PATIENT: LIZZIE HINKLE UNIT #: [id number] CCOUNT #: [id number] ROOM #: [place].2201 BED: 1 : 3 AGE: 71 SEX: F ATTEND: Erasmo Fay MD ADM DT: AUTHOR: Nini Doan MD ATTENTION EDITS and/or ADDENDA must be made i n Patient Keeper for this note. Edits and ammendments c reated in [facility] are not visible in Patient Keeper or the legal medical record (HPF). -- ASSESSMENT AND PLAN -- PROBLEMS : 1: Type 1 diabetes mellitus with ketoacidosis without coma A/P: UNCONTROLLED (NVXA1P=76.0%,HYPERGLYCEMIA) TYPE I DM IN DKA. DKA RESOLVED:OHE=5212,43,52 HS JRNDLNB=414 AG=7. 7). OBSERVE ON REVISED/DECREASED SQBASAL/BOLUS INSULIN. MUST HAVE A BEDTIME SNACK. -- SUBJECTIVE -- CHIEF COMPLAINT:HYPERGLYCEMIA HPI: EVENTS NOTED: OUT O F ICU. TOLERATING DIET. DOES NOT REMEMBERIF SHE HAD A B EDTIME SNACK. AM HYPOGLYCEMIA NOTED. -REVIEW OF SYSTEMS - GENERAL: Negative for feverRESPIRATORY: Negative for dyspneaCARDIOVASCULAR: Negative for palpitations.GASTROINTESTINAL: Negative for abdo gabby pain or nauseaENDOCRINE: Negative for polyphagia, peter ydipsia, polyuria -- OBJECTIVE -- VITALS (03/12 11:31 - 05/13 11:31):Temperature C: 36.8 (36.3 - 36.8)Temperat ure source: OralPulse Rate 87 (73 - 90)Respiratory rate: 18 (15 - 19)BP: 129/73 (95/61 - 151/82) I/Os (03/12 07:00 - 03/13 07:00):Net -8.80Intake 141.20Output 150 -EXAM- G ENERAL: Well developed, well nourished, in no apparent d istress, THINHEAD: Normocephalic, atraumatic.EYES: LEGALL Y BLIND NECK: trachea midline.CHEST: Grossly normal appearance.LUNGS: NORMAL CHEST WALL MOVEMENTHEAR T: NO TACHYCARDIAABDOMEN: NON-DISTENDEDNEUROLOGICAL: N ORMAL SPEECHPSYCHIATRIC: Alert and oriented to time, p erson, place. -- DATA -- MEDICATIONS INSULIN REGULAR, H UMAN with/in SODIUM CHLORIDE 100 mL BAG 100 UNIT IV ASDIRMAGNESIUM 1 GM IV Q1H (PRN)CYANOCOBALAMIN 1 000 MCG PO DAILYMAGNESIUM 1 GM IV Q1H (PRN)DEXTROSE 50%-PABLO ER 50 ML IV ASDIRSODIUM PHOSPHATE with/in SODIUM CHLORIDE 0. 9% 15 MM IV ASDIR (PRN)RANOLAZINE 1000 MG PO [id number] L 75 MG PO DAILYFAMOTIDINE 20 MG PO DAILY@2100SODIUM PHOSPH ATE with/in SODIUM CHLORIDE 0.9% 30 MM IV ASDIR (PRN)PYRIDOX INE HCL 50 MG PO DAILYPOTASSIUM CHLORIDE 20 MEQ IV ASDIRDIC YCLOMINE HCL 10 MG PO TID PRNISOSORBIDE MONONITRATE 30 MG PO DAILYASPIRIN 81 MG PO DAILYMETOPROLOL SUCCINATE 25 MG PO DAILYGLUCAGON 1 MG IV ASDIRSODIUM CHLORIDE 0.9% 1000 ML IV .[id number] 1 APPLIC NASAL BIDHEPARIN SODIUM, PORCINE 4500 UNIT IV ASDIR (PRN)INSULIN LISPRO 0 UNITS S UBQ AC HSHEPARIN SODIUM,PORCINE 2000 UNIT IV ASDIR (PRN )SODIUM PHOSPHATE with/in SODIUM CHLORIDE 0.9% 20 MM IV ASDIR (PRN)EZETIMIBE 10 MG PO DAILYMAGNESIUM 1 GM IV A SDIR (PRN)SOD BIPHOS/POT PHOSPHATE 1 PKT PO ASDIR (IA N)FOLIC ACID 3 MG PO DAILYHEPARIN SODIUM,PORCINE/D5W 250 00 UNIT IV TITRATESODIUM CHLORIDE 0.45% 1000 ML IV ASDIRINS ULIN GLARGINE 18 UNITS SUBQ QAMSODIUM CHLORIDE 0.9% 1 000 ML IV ASDIRDEXTROSE 5%-0.45% SALINE 1000 ML IV ASDIRPO TASSIUM BICARBONATE/CIT AC 20 MEQ PO ASDIR LABS GLU BED (03/13/22 08:45)GLUBED 106 H GLU BED (03/13/22 07:07)GLUBE D 43 *L BASIC METABOLIC PANEL (03/13/22 06:07)SODIUM 137 POTASSIUM 3.7CHLORIDE 105CARBON DIOXIDE 28ANION GAP 7.7 G LUCOSE 52L LBLOOD UREA NITROGEN 13GLOMERULAR FILTRATION RAT E 54 LCREATININE 1.1BUN/CREATININE RATIO 11.8 LCALCIU M 8.2 L MAG (03/13/22 06:07)MAGNESIUM 1.7 L PTT (03/13/22 06:07)THROMBOPLASTIN TIME PARTIAL 72.4 *H CBC W/ AUTO DIFF (03/13/22 06:07)WHITE BLOOD CELL 3.8L LRED BLOOD CELL 3.05 LHEMOGLOBIN 8.9L LHEMATOCRIT 27.7L LMEAN CELL VO LUME 91MEAN CELL HGB 29.2MEAN CELL HGB CONCENTRATION 32.1RED CELL DISTRIBUTION WIDTH 15.2 HPLATELET COUNT 228 MEAN PLATELET VOLUME 10.5NEUTROPHIL % 44.4IMMATURE GR ANULOCYTE % 0.3LYMPHOCYTE % 39.9MONOCYTE % 12.2EOSINOPHIL % 2.4BASOPHIL % 0.8NUCLEATED RBC % 0.0NEUTROPHIL # 1.67IMMATU RE GRANULOCYTE # 0.010LYMPHOCYTE # 1.50MONOCYTE # 0.46EOSINOPHIL # 0.09BASOPHIL # 0.03NUCLEATED R BC # 0.000 PTT (03/12/22 21:41)THROMBOPLASTIN TIME PARTIAL 62.2 H GLU BED (03/12/22 20:35)GLUBED 152 H GLU BED (03/12 18:18)GLUBED 162 H GLU BED (03/12/22 17:14)GLUBE D 57 L PTT (03/12/22 15:25)THROMBOPLASTIN TIME PARTIAL 63.4 H GLU BED (03/12/22 13:23)GLUBED 261 H GLU BED (03/12/22 1 3:12)GLUBED 64 L -- ATTESTATION -- TIME SPENT ON PATIENT CAR E: - Direct 30 minutes CARE ACTIVITIES / CARE COORDINATION: - I have reviewed the history and repeated the ingram elemen ts - I have seen and examined this patient - I have reviewed the progress in the clinical course since the lastex amination - I have discussed the patient's condition with ot her members of the care team ADDITIONAL DETAIL:I HAVE SPENT 30 MINUTES IN THE EVALUATION AND TREATMENT OF THIS PATIENT. Signed in PatientKeeper by Nini Doan MD on at 11:34 at 1134ATTENTION EDITS and/or ADDENDA must be ma de in Patient Keeper for this note. Edits and ammen dments created in [facility] are not visible in Patien t Keeper or the legal medical record (HPF). [facility] #: [id number] OF REPORT PRProgress [id number] Available for patient [id number]:0 0 2022-03-13 [id number]:00 [facility] 11:05:00 [facility]Pulmonology Progress Note REPORT # : [id number] REPORT STATUS: Signed DATE: 03/13/22 TIME: 1105 PATIENT: LIZZIE HINKLE UNIT #: [id number] #: [id number] ROOM #: [place].2201 BED: 1 : 3 AGE: 71 SEX: F ATTEND: Erasmo Fay MD ADM DT: AUTHOR: Roland Reinoso APRN ATTENTION EDITS and/or ADDENDA must be made i n Patient Keeper for this note. Edits and ammendments c reated in [facility] are not visible in Patient Keeper or the legal medical record (HPF). -- CO-SIGNATURE -- COMMENTS: I saw and evaluated on the patient with the nurse practiti susan. I personallyreviewed the HPI, PH, FH, SH, ROS and medications. I repeated pertinentportions of the examination and reviewed the relevant imaging an d laboratorydata. Signed in PatientKeeper by DHEERAJ NEGRON MD on 03/29/22 at 23:54 -- ASSESSMENT AND PLAN - - GENERAL ASSESSMENT:[facility] Care Note ASSESSMENTDKAAnion ga p metabolic acidosis AG 21HyperkalemiaNSTEMIHTNHLDmultivesse l CAD PLAN Neuro- neuro checks per unit protocol- fall prec autions Pulm- Chest x-ray showed no acute pulmonary proc ess- keep SpO2 > 92% CV- known CAD, but pt opted for medic al mgmt a year ago- monitor on telemetry -NSTEMI, continue heparin- isosorbide,- DAPT (ASA/Plavix)- Echo reviewed, E F 60-65%- cards following Renal- Monitor kidney function/U OP- monitor/correct lytes-Hyperkalemia likely second amador to insulin deficiency. Continue to monitor whileon insulin drip- Avoid nephrotoxins GI- no acute GI issues- bowel regimen Heme- Monitor H/H, PLT- Transfuse to dean p Hgb > 7 Endo- UA w/ , +ketones;- no longer in DKA, trans tion to subq insulin-endocrine following- diabetic educa tion ID- normal WBC, afebrile- no indication for ABX- mon itor WBC/fever curve ICU checklistLines: PIVDVT/GI pp x: heparin, SCDs / no indication for GI ppxCode status: full Dispo: ICU SubjectiveOvernight events notedTolerating RAInsulin gtt stopped yesterday and transferred out of ICUNo complaintsPulm will fol low peripherally please call for assistance/concerns . HPI:Lizzie Hinkle is a 71 y/o legally blind fema le with history as listed below.Patient stated she start ed to have chest pain and lethargy [facility]. Of note she states that she has been out of her insulin for thelast 2 days. In the ER patient was noted to b e in DKA. She was also noted tohave elevated troponin whic h is known to be chronic. Cardiology was consultedand she w as started on insulin drip and transferred to ICU for marialuisa nued caremanagement. Review of systems: negative exce pt for stated Medical Hx: DMT1, HTN, HLD, CKD, multives ricco CAD, PAD, legally blindSurgical Hx:Social Hx:Family H x: Physical ExamGeneral: NAD, awake and alertEyes: Anicteric sclerae.Mouth: MMMNeck: Supple.CV: RRR. peripher al pulses difficult to appreciatePulm: bilateral chest ris e. unlabored respirations, room airAbdomen: Soft, nondistended. nontenderExtremities: No lower ext remity edema.Skin: Warm, dry. Cap refill < 3 secsNeuro: Awake, alert, no FNDsPsych: normal mood -- OBJECTIVE -- VITALS (03/12 12:22 - 03/13 12:22):Temperature C: 36.8 (36.3 - 36.8)Temperature source: OralPulse Rate 87 (73 - 90)Respiratory rate: 18 (15 - 19)BP: 129/73 (95/ 61 - 151/82) I/Os (03/12 07:00 - 03/13 07:00):Net -8. 80Intake 141.20Output 150 -- DATA -- MEDICATIONS MAGNESI UM 1 GM IV Q1H (PRN)CYANOCOBALAMIN 1000 MCG PO DAILYMAGNESI UM 1 GM IV Q1H (PRN)DEXTROSE 50%-WATER 50 ML IV ASDIRSODIUM PHOSPHATE with/in SODIUM CHLORIDE 0.9% 15 MM IV ASDIR (PRN )RANOLAZINE 1000 MG PO [id number] 75 MG PO DAILYFAMOTI DINE 20 MG PO DAILY@2100SODIUM PHOSPHATE with/in SODIUM CHL ORIDE 0.9% 30 MM IV ASDIR (PRN)PYRIDOXINE HCL 50 MG PO WILMAN YPOTASSIUM CHLORIDE 20 MEQ IV ASDIRDICYCLOMINE HCL 10 MG PO TID PRNISOSORBIDE MONONITRATE 30 MG PO DAILYASPIRIN 81 MG PO DAILYMETOPROLOL SUCCINATE 25 MG PO DAILYGLUCAGON 1 MG IV ASDIRSODIUM CHLORIDE 0.9% 1000 ML IV .[id number] KENNY 1 APPLIC NASAL BIDHEPARIN SODIUM,PORCINE 4500 UNIT IV ASDIR (PRN)INSULIN LISPRO 0 UNITS SUBQ AC HSHEPARIN SODIUM,PORCINE 2000 UNIT IV ASDIR (PRN)SODIUM PH OSPHATE with/in SODIUM CHLORIDE 0.9% 20 MM IV ASDIR (PRN ) EZETIMIBE 10 MG PO DAILYMAGNESIUM 1 GM IV ASDIR (PRN)SOD B IPHOS/POT PHOSPHATE 1 PKT PO ASDIR (PRN)FOLIC ACID 3 MG PO DAILYHEPARIN SODIUM,PORCINE/D5W 51066 UNIT IV TI TRATESODIUM CHLORIDE 0.45% 1000 ML IV ASDIRINSULIN GLARGINE 18 UNITS SUBQ QAMSODIUM CHLORIDE 0.9% 1000 ML IV ASDIRDEX TROSE 5%-0.45% SALINE 1000 ML IV ASDIRPOTASSIUM BICARB ANGELA/CIT AC 20 MEQ PO ASDIR LABS GLU BED (03/13/22 11:37) GLUBED 202 H GLU BED (03/13/22 08:45)GLUBED 106 H GLU BED ( 03/13/22 07:07)GLUBED 43 *L BASIC METABOLIC PANEL ( 06:07)SODIUM 137POTASSIUM 3.7CHLORIDE 105CARBON DIOXIDE 28ANION GAP 7.7GLUCOSE 52L LBLOOD UREA NITROGEN 13GLOMERULAR FILTRATION RATE 54 LCREATININE 1.1BUN/CREATININE RATIO 11.8 LCALCIUM 8.2 L MAG (03/13/22 06:07)MAGNESIUM 1.7 L PTT (03/13/22 06:07)THROMB OPLASTIN TIME PARTIAL 72.4 *H CBC W/AUTO DIFF (03/13/22 0 6:07)WHITE BLOOD CELL 3.8L LRED BLOOD CELL 3.05 LHEMOGLOBIN 8.9L LHEMATOCRIT 27.7L LMEAN CELL VOLUME 91MEAN CELL HGB 29.2MEAN CELL HGB CONCENTRATION 32.1RED CELL DIS TRIBUTION WIDTH 15.2 HPLATELET COUNT 228MEAN PLATELET VOLU ME 10.5NEUTROPHIL % 44.4IMMATURE GRANULOCYTE % 0.3L YMPHOCYTE % 39.9MONOCYTE % 12.2EOSINOPHIL % 2.4BASOPHIL % 0 .8NUCLEATED RBC % 0.0NEUTROPHIL # 1.67 IMMATURE GRANULOCYTE # 0.010LYMPHOCYTE # 1.50MONOCYTE # 0.46EOSINOPHIL # 0.09BASOPHIL # 0.03NUCLEATED RBC # 0.000 PTT ( 21:41)THROMBOPLASTIN TIME PARTIAL 62.2 H GLU BED (03/12/22 20:35)GLUBED 152 H GLU BED (03/12/22 18:18)GLUB ED 162 H GLU BED (03/12/22 17:14)GLUBED 57 L PTT ( 15:25)THROMBOPLASTIN TIME PARTIAL 63.4 H GLU BED (03/12/22 13:23)GLUBED 261 H GLU BED (03/12/22 13:12)GLUBE D 64 L Signed in PatientKeeper by Roland Reinoso APRN on 03/13/22 at 12:25 Cosigned by DHEERAJ SANDERS MD on 03/02 01/20 at 23:54 at 2354 at 2354ATTENTION EDITS and/or ADDENDA must be ma de in Patient Keeper for this note. Edits and ammen dments created in [facility] are not visible in Patien t Keeper or the legal medical record (HPF). RPT #: [id number] OF REPORT PRProgress [id number] Available for patient [id number]:3 2 2022-03-13 [id number]:05:00 [facility] 09:05:00 [facility]Cardiology Progress Notes REPORT # : [id number] REPORT STATUS: Signed DATE: 03/13/22 TIME: 904 PATIENT: LIZZIE HINKLE UNIT #: [id number] #: [id number] ROOM #: NC.2201 BED: 1 : 3 AGE: 71 SEX: F ATTEND: Erasmo Fay MD ADM DT: AUTHOR: Bal Ferro MD ATTENTION EDITS and/or ADDENDA must be made i n Patient Keeper for this note. Edits and ammendments c reated in [facility] are not visible in Patient Keeper or the legal medical record (HPF). -- ASSESSMENT AND PLAN -- PROBLEMS : 1: NSTEMI (non-ST elevated myocardial infarction)A/P: - EC G - SR, rate 97- Tn 696 --> 1804- she has uncontrolle d DM thus can be asymptomatic for that reason- rec empiric treatment for NSTEMI with heparin gtt for 48 hours until 224:00 pm- TTE 08/20 - EF 55-60%, G1DD, m MR, mM AV scl, no PC eff- driven by secondary phenomenon (DKA/ADOLFO); denies any CP or SOB- c/w ASA 81 mg QD, plavix 75 mg QD, toprol 2 5 mg QD, imdur 30, ranexa 1000 BID- not on statin due to severe myalgias, on zetia- Given her NSTEMI, I discusse d the options of CABG vs. PCI vs. medical therapywith the patient. I explained to her that she is high ris k for procedure andsurgery related complications given her inconsistent medication intake anduncontrolled D M. I advised her that risks of CABG can include a serioussternotomy wound infection and poor wound healing in the setting of DM. She isalso not an ideal dyan date for PCI given she cannot reliably take dualantiplate let therapy and has uncontrolled DM which would put her at h igh riskfor in-stent restenosis/thrombosis which would be fa terra. Given that she isasymptomatic, stable, would treat wit h medical therapy for NSTEMI with DAPT,therapeutic AC- hx of noncompliance with medications 2: CAD (coronary artery disease)A/P: - [facility] 10/19: RCA mid 100% with lt-to -rt collater ,CX mid 60-70%, MOM prox8-0%, LAD prox and mid two consecutive 60-70% stenoses with near-significan tFFR of 0.81, D2 ostial 70% then prox 80% sten, edp 3 -- > eval for 4v acb tolad, d2, mom, and distal RCA --> Dr Christopher diaz need for ACB yet he wishes towait and do it on O P basis once a1c is lower and once compliance is documen sarah beth- DKA/NSTEMI adm 04/20 + 08/20 + 03/22; family opte d for medical management- admitted for DKA 03/22- asp, plavix, lipitor, toprol, imdur, ranexa 3: DKA (diabetic ketoacidoses)A/P: - mxm per endo/primary 4: acut e renal failureA/P: ac d/t dehydration/DKAmonitor BMPavo id nephrotoxins baseline Cr 0.9 --> 1.4 03/11/22 5: PADA/P: -80% sten ostial rt SFA on lted groin angio with [facility] 10/19-laus 10/19: Change from triphasic to monopha sic waveforms in the right femoralartery and at the left lower leg below the popliteal artery suggesting stenos is.-rec RO and poss well logging captain mud analysis in the future once compliance confi rmed and improvement frH9N-tcb, plav, better BS ctrl-avoi d low BP 6: Statin intoleranceA/P: - severe myalgias on lipi tor- on zetia 7: NoncomplianceA/P: - encouraged complian ce with meds -- SUBJECTIVE -- PATIENT NARRATIVE:No event s overnight. -REVIEW OF SYSTEMS- GENERAL: Negative for fever, chills, unexplained weight loss,EARS/NOSE/THROAT : Negative for sore throat. No otalgia. No rhinorrhea.RESPI RATORY: Negative for cough, chest congestion, wheezing,CARDIOVASCULAR: Negative for, palpitati ons, n, orthopnea, edema and dizzinessGASTROINTESTINAL: Negative for abdominal pain, nausea, vomiting, diarrhea,GENITOURINARY: Negative for dysuria, fr equency, or urgency. No gross hematuria.SKIN: Negative for rashes. No pruritus.NEUROLOGICAL: Negative for headache, nu mbness, tingling, and weakness -- OBJECTIVE -- VITALS (05/12 09:05 - 03/13 09:05):Temperature C: 36.6 (36.3 - 36.6) Temperature source: OralPulse Rate 82 (73 - 90)Respiratory r ate: 18 (15 - 19)BP: 151/82 (95/61 - 151/82) I/Os (03/12 07: 00 - 03/13 07:00):Net -8.80Intake 141.20Output 150 -EXAM- G ENERAL: Well developed, well nourished, in no apparent distress.NECK: No masses, no thyromegaly, no abn ormal cervical nodes, trachea midline.LUNGS: Respirati ons unlabored, clear to auscultation bilaterally, n o wheezing, no ronchi, no ralesHEART: Regular rate and rhyth m, normal S1, S2, no murmurs, no rubs, no gallops, no clic ks.ABDOMEN: + BS SOft non tender no HSM no massEXTREMITIES: No clubbing, cyanosis or edemaNEUROLOGICAL: Alert a nd oriented to person, place, no facial asymmetry, normal sp eech. Moves all extremities symmetrically, normal tone,PULSE S: Normal carotid pulses without bruits. Normal pulses delmy aterally at radial, dorsalis pedis and posterior tibial loca tions.SKIN: No pallor, no jaundice, no rash, normal turgorLY MPH NODES: None palpable cervical, axillary, supraclavicula r or inguinal locationsPSYCHIATRIC: Mood euthymic. Af fect congruent, Normal eye contact, normal speech. th ought process and thought content intact. -- DATA -- M EDICATIONS INSULIN REGULAR, HUMAN with/in SODIUM CHLORIDE 1 00 mL BAG 100 UNIT IV ASDIRMAGNESIUM 1 GM IV Q1H (PRN)CYAN OCOBALAMIN 1000 MCG PO DAILYMAGNESIUM 1 GM IV Q1H (PRN)DEXT KIM 50%-WATER 50 ML IV ASDIRSODIUM PHOSPHATE with/in SODIUM CHLORIDE 0.9% 15 MM IV ASDIR (PRN)RANOLAZINE 100 0 MG PO [id number] GLARGINE 20 UNITS SUBQ QAMclopidogr eL 75 MG PO DAILYFAMOTIDINE 20 MG PO DAILY@2100SODIUM PHOSPH ATE with/in SODIUM CHLORIDE 0.9% 30 MM IV ASDIR (PRN)PYRIDOX INE HCL 50 MG PO DAILYPOTASSIUM CHLORIDE 20 MEQ IV ASDIRDIC YCLOMINE HCL 10 MG PO TID PRNISOSORBIDE MONONITRATE 30 MG PO DAILYASPIRIN 81 MG PO DAILYMETOPROLOL SUCCINATE 25 MG PO DAILYGLUCAGON 1 MG IV ASDIRSODIUM CHLORIDE 0.9% 1000 ML IV .[id number] 1 APPLIC NASAL BIDHEPARIN SODIUM, PORCINE 4500 UNIT IV ASDIR (PRN)INSULIN LISPRO 0 UNITS S UBQ AC HSHEPARIN SODIUM,PORCINE 2000 UNIT IV ASDIR (PRN )SODIUM PHOSPHATE with/in SODIUM CHLORIDE 0.9% 20 MM IV ASDIR (PRN)EZETIMIBE 10 MG PO DAILYMAGNESIUM 1 GM IV A SDIR (PRN)SOD BIPHOS/POT PHOSPHATE 1 PKT PO ASDIR (IA N)FOLIC ACID 3 MG PO DAILYHEPARIN SODIUM,PORCINE/D5W 250 00 UNIT IV TITRATESODIUM CHLORIDE 0.45% 1000 ML IV ASDIRSOD IUM CHLORIDE 0.9% 1000 ML IV ASDIRDEXTROSE 5%-0.45% SALINE 1000 ML IV ASDIRPOTASSIUM BICARBONATE/CIT AC 20 MEQ P O ASDIR LABS GLU BED (03/13/22 08:45)GLUBED 106 H GLU BE D (03/13/22 07:07)GLUBED 43 *L BASIC METABOLIC PANEL ( 06:07)SODIUM 137POTASSIUM 3.7CHLORIDE 105CARBON DIOXIDE 28ANION GAP 7.7GLUCOSE 52L LBLOOD UREA NITROGEN 13GLOMERULAR FILTRATION RATE 54 LCREATININE 1.1BUN/CREATININE RATIO 11.8 LCALCIUM 8.2 L MAG (03/13/22 06:07)MAGNESIUM 1.7 L CBC W/AUTO DIFF (03/13/22 06:07)WHITE BLOOD CELL 3.8L LRED BLOOD CELL 3.05 LHEMOGLOBIN 8.9L LHEMATOCRIT 27.7L LMEAN CELL VOLUME 91MEAN CELL HGB 29.2MEAN CELL HGB CONCENTRATION 32.1RED CELL DIS TRIBUTION WIDTH 15.2 HPLATELET COUNT 228MEAN PLATELET VOLU ME 10.5NEUTROPHIL % 44.4IMMATURE GRANULOCYTE % 0.3 LYMPHOCYTE % 39.9MONOCYTE % 12.2EOSINOPHIL % 2.4BASOPHIL % 0.8NUCLEATED RBC % 0.0NEUTROPHIL # 1.67IMMATURE GRANULOCYTE # 0.010LYMPHOCYTE # 1.50MONOCYTE # 0.46EOSINOPHIL # 0.09BASOPHIL # 0.03NUCLEATED RB C # 0.000 PTT (03/12/22 21:41)THROMBOPLASTIN TIME PARTIAL 62.2 H GLU BED (03/12/22 20:35)GLUBED 152 H GLU BED ( 18:18)GLUBED 162 H GLU BED (03/12/22 17:14)GLUB ED 57 L PTT (03/12/22 15:25)THROMBOPLASTIN TIME PARTIAL 63.4 H GLU BED (03/12/22 13:23)GLUBED 261 H GLU BED (03/12/22 13:12)GLUBED 64 L Signed in PatientKeeper by Bal Ortega MD on 03/13/22 at 09:09 at 0909ATTENTION EDITS and/or ADDENDA must be ma de in Patient Keeper for this note. Edits and ammen dments created in [facility] are not visible in Patien t Keeper or the legal medical record (HPF). RPT #: [id number] OF REPORT PRProgress [id number] Available for patient [id number] 5 2022-03-12 [id number]:00:00 [facility] 16:[facility]00 [facility] Progress Note REPO RT #: [id number] REPORT STATUS: Signed DATE: 03/12/22 T EDUARDO: 1600 PATIENT: LIZZIE HINKLE UNIT #: [id number] CCOUNT #: [id number] ROOM #: NC.2201 BED: 1 : 3 AGE: 71 SEX: F ATTEND: Erasmo Fay MD ADM DT: AUTHOR: Eramso Fay MD ATTENTION EDITS and/or ADDENDA must be made i n Patient Keeper for this note. Edits and ammendments c reated in [facility] are not visible in Patient Keeper or the legal medical record (HPF). -- ASSESSMENT AND PLAN -- PROBLEMS : 1: Type 1 diabetes mellitus with ketoacidosis, uncontrolledA/P:endocrine consulted acidosis res olved 2: CAD (coronary artery disease)A/P: with chest tonia n and elevated troponin, heparin , cardiology consulte d, ECHOheparin through tomorrow 3: Hypertension 4: Hyperlipidemia 5: Visual impairment 6: Diabetic retinopathy 7: Peripheral arterial disease 8: HyponatremiaA/ P: likely pseudohyponatremia 9: HyperkalemiaA/P: monitor 1 0: Elevated troponinA/P: cardiology consulted, -- SUBJECTIVE -- HPI:was quite agitated and aggressive earlier,given hald ol, sleeping now, hsband at bedside, she occasionall y exhibuts similar behavior at home, also sometimes refsesm eds, has some paranoia, also occasionally voices wishes t hat she could be with god -REVIEW OF SYSTEMS- GENERAL: evelia kenney to obtain -- OBJECTIVE -- VITALS (03/12 14:26 - 14:26):Temperature C: 36.8 (36.3 - 36.8)Temperat ure source: OralPulse Rate 87 (77 - 90)Respiratory rate: 18 (15 - 19)BP: 129/73 (101/62 - 151/82) I/Os (03/12 07:0 0 - 03/13 07:00):Net -8.80Intake 141.20Output 150 -EXAM- G ENERAL: sleeping comfortablyLUNGS: cta no dstressHEART: RRR, no murmurABDOMEN: Soft non tenderEXTREMITIES: no ed venancio -- DATA -- MEDICATIONS MAGNESIUM 1 GM IV Q1H (PRN)CYANOC OBALAMIN 1000 MCG PO DAILYMAGNESIUM 1 GM IV Q1H (PRN)DEXT KIM 50%-WATER 50 ML IV ASDIRSODIUM PHOSPHATE with/in SODIUM CHLORIDE 0.9% 15 MM IV ASDIR (PRN)RANOLAZINE 100 0 MG PO [id number] 75 MG PO DAILYFAMOTIDINE 20 MG PO DAILY@2100SODIUM PHOSPHATE with/in SODIUM CHLORI DE 0.9% 30 MM IV ASDIR (PRN)PYRIDOXINE HCL 50 MG PO DAILYPO TASSIUM CHLORIDE 20 MEQ IV ASDIRDICYCLOMINE HCL 10 MG PO TID PRNISOSORBIDE MONONITRATE 30 MG PO DAILYASPIRIN 81 MG PO DAILYMETOPROLOL SUCCINATE 25 MG PO DAILYGLUCAGON 1 MG IV ASDIRSODIUM CHLORIDE 0.9% 1000 ML IV .[id number] KENNY 1 APPLIC NASAL BIDHEPARIN SODIUM,PORCINE 4500 UNIT IV ASDIR (PRN)INSULIN LISPRO 0 UNITS SUBQ AC HSHEPARIN SODIUM,PORCINE 2000 UNIT IV ASDIR (PRN)SODIUM PH OSPHATE with/in SODIUM CHLORIDE 0.9% 20 MM IV ASDIR (PRN )EZETIMIBE 10 MG PO DAILYMAGNESIUM 1 GM IV ASDIR (PRN)SOD B IPHOS/POT PHOSPHATE 1 PKT PO ASDIR (PRN)FOLIC ACID 3 MG PO DAILY HEPARIN SODIUM,PORCINE/D5W 61438 UNIT IV TITRATE SODIUM CHLORIDE 0.45% 1000 ML IV ASDIRINSULIN GLARGINE 18 UNITS SUBQ QAMSODIUM CHLORIDE 0.9% 1000 ML IV ASDIRDEX TROSE 5%-0.45% SALINE 1000 ML IV ASDIRPOTASSIUM BICARB ANGELA/CIT AC 20 MEQ PO ASDIR LABS GLU BED (03/13/22 11:37) GLUBED 202 H GLU BED (03/13/22 08:45)GLUBED 106 H GLU BED ( 03/13/22 07:07)GLUBED 43 *L BASIC METABOLIC PANEL ( 06:07)SODIUM 137POTASSIUM 3.7CHLORIDE 105CARBON DIOXIDE 28ANION GAP 7.7GLUCOSE 52L LBLOOD UREA NITROGEN 13GLOMERULAR FILTRATION RATE 54 LCREATININE 1.1BUN/CREATININE RATIO 11.8 LCALCIUM 8.2 L MAG (03/13/22 06:07)MAGNESIUM 1.7 L PTT (03/13/22 06:07)THROM BOPLASTIN TIME PARTIAL 72.4 *H CBC W/AUTO DIFF (03/13/22 0 6:07)WHITE BLOOD CELL 3.8L LRED BLOOD CELL 3.05 LHEMOGLOBIN 8.9L LHEMATOCRIT 27.7L LMEAN CELL VOLUME 91MEAN CELL HGB 29.2MEAN CELL HGB CONCENTRATION 32.1RED CELL DIS TRIBUTION WIDTH 15.2 HPLATELET COUNT 228MEAN PLATELET VOLU ME 10.5NEUTROPHIL % 44.4IMMATURE GRANULOCYTE % 0.3L YMPHOCYTE % 39.9MONOCYTE % 12.2EOSINOPHIL % 2.4BASOPHIL % 0. 8NUCLEATED RBC % 0.0NEUTROPHIL # 1.67IMMATURE GRANULOCYTE # 0.010LYMPHOCYTE # 1.50MONOCYTE # 0.46EOSINOPHIL # 0.09 BASOPHIL # 0.03NUCLEATED RBC # 0.000 PTT ( 21:41)THROMBOPLASTIN TIME PARTIAL 62.2 H GLU BED (03/12/22 20:35)GLUBED 152 H GLU BED (03/12/22 18:18)GLUBE D 162 H GLU BED (03/12/22 17:14)GLUBED 57 L PTT (03/12/22 15:25)THROMBOPLASTIN TIME PARTIAL 63.4 H Signed in PatientKeeper by ERASMO FAY MD on 03/01 07/20 at 14:29 at 1429ATTENTION EDITS and/or ADDENDA must be ma de in Patient Keeper for this note. Edits and ammen dments created in [facility] are not visible in Patien t Keeper or the legal medical record (HPF). RPT #: [id number] OF REPORT PRProgress [id number] Available for patient [id number]:3 9 2022-03-12 [id number]:00:00 [facility] 10:00:00 [facility])Endocrinology Progress Note REPORT #: [id number] REPORT STATUS: Signed DATE: 03/12/22 T EDUARDO: 1000 PATIENT: LIZZIE HINKLE UNIT #: [id number] CCOUNT #: [id number] ROOM #: [place].[facility] BED: A : 3 AGE: 71 SEX: F ATTEND: Erasmo Fay MD ADM DT: AUTHOR: Nini oDan MD ATTENTION EDITS and/or ADDENDA must be made i n Patient Keeper for this note. Edits and ammendments c reated in [facility] are not visible in Patient Keeper or the legal medical record (HPF). -- ASSESSMENT AND PLAN -- PROBLEMS : 1: Type 1 diabetes mellitus with ketoacidosis without coma A/P: UNCONTROLLED (DXTK4F=70.0%,HYPERGLYCEMIA) TYPE I DM IN DKA. DKA RESOLVED:VWG=491 AG=6.7. OBSERVE ON SQ BASAL /BOLUS INSULIN. DISCUSSED WITH ICU NURSE. -- SUBJECTIVE -- CHIEF COMPLAINT:HYPERGLYCEMIA HPI: EVENTS NOTED: IN IC U. OFF INSULIN DRIP. DENIES NAUSEA,VOMITING OR ABDOMINA L PAIN. WANTS TO EAT. -REVIEW OF SYSTEMS- GENERAL: Negat mirtha for feverRESPIRATORY: Negative for dyspneaCARDIOVASC ULAR: Negative for palpitations.GASTROINTESTINAL: Nega tive for abdominal pain or nauseaENDOCRINE: Negative for polyphagia, polydipsia, polyuria -- OBJECTIVE -- VITALS ( 10:00 - 03/12 10:00):Temperature F: 98.5 (97.0 - 98.9)Te mperature source: Oral I/Os (03/11 07:00 - 03/12 07:00):Ne t -350Output 350 -EXAM- GENERAL: Well developed, w ell nourished, in no apparent distress, THINHEAD: Normocephalic, atraumatic.EYES: LEGALLY BLINDNEC K: trachea midline.CHEST: Grossly normal appearance.LUNGS: NORMAL CHEST WALL MOVEMENTHEART: NO TACHYCARDIAABDOMEN: NON-DISTENDED NEUROLOGICAL: NORMAL SPEECHPSYCHIA TRIC: Alert and oriented to time, person, place. -- DATA -- MEDICATIONS MAGNESIUM 1 GM IV Q1H (PRN)MAGNESIUM 1 GM IV Q1H (PRN)SODIUM PHOSPHATE with/in SODIUM CHLORIDE 0. 9% 15 MM IV ASDIR (PRN)RANOLAZINE 1000 MG PO [id number] L 75 MG PO DAILYSODIUM CHLORIDE 0.9% 1000 ML IV [id number] LISPRO 0 UNITS SUBQ AC HSFAMOTIDINE 20 MG PO DAILY@2100DI CYCLOMINE HCL 10 MG PO TID PRNISOSORBIDE MONONITRATE 30 MG PO DAILYASPIRIN 81 MG PO DAILYMETOPROLOL SUCCINATE 25 MG PO DAILYSODIUM CHLORIDE 0.9% 1000 ML IV .[id number] SE 5%-NS 1000 ML IV [id number] SODIUM,PORCINE 4500 UNIT IV ASDIR (PRN)HEPARIN SODIUM,PORCINE 2000 UNIT IV ASDIR (PRN)MAGNESIUM 1 GM IV ASDIR (PRN)SOD BIPHOS/POT PHOSPHATE 1 PKT PO ASDIR (PRN)FOLIC ACID 3 MG PO DAILYHEPA RIN SODIUM,PORCINE/D5W 75342 UNIT IV TITRATEINSULIN REGULAR, HUMAN with/in SODIUM CHLORIDE 100 mL BAG 100 UNI T IV ASDIRCYANOCOBALAMIN 1000 MCG PO DAILYDEXTROSE 50 %-WATER 50 ML IV ASDIRINSULIN GLARGINE 20 UNITS SUBQ QAMSOD IUM PHOSPHATE with/in SODIUM CHLORIDE 0.9% 30 MM IV ASDIR (PRN)PYRIDOXINE HCL 50 MG PO DAILYPOTASSIUM CHLO RIDE 20 MEQ IV ASDIRGLUCAGON 1 MG IV ASDIRMUPIROCIN 1 APPLIC NASAL BIDSODIUM PHOSPHATE with/in SODIUM CHLORIDE 0.9% 20 MM IV ASDIR (PRN)EZETIMIBE 10 MG PO DAILYSODIUM CHLORI DE 0.45% 1000 ML IV ASDIRSODIUM CHLORIDE 0.9% 1000 ML IV ASDIRDEXTROSE 5%-0.45% SALINE 1000 ML IV ASDIRPO TASSIUM BICARBONATE/CIT AC 20 MEQ PO ASDIR LABS GLU BED (03/12/22 07:27)GLUBED 110 H PTT (03/12/22 06:00)THROMBOPL ASTIN TIME PARTIAL 100.8 D*H CBC W/AUTO DIFF (03/12/22 03:0 0)WHITE BLOOD CELL 5.0RED BLOOD CELL 2.66 LHEMOGLOBIN 8. 0L LHEMATOCRIT 24.1L LMEAN CELL VOLUME 91MEAN CELL HGB 30.1MEAN CELL HGB CONCENTRATION 33.2RED CELL DIS TRIBUTION WIDTH 14.5 H PLATELET COUNT 233MEAN PLATELET VOL UME 10.7NEUTROPHIL % 56.1IMMATURE GRANULOCYTE % 0.4L YMPHOCYTE % 31.1MONOCYTE % 10.4EOSINOPHIL % 1.2BASOPHIL % 0 .8NUCLEATED RBC % 0.0NEUTROPHIL # 2.80IMMATURE GRANULOCYTE # 0.020LYMPHOCYTE # 1.55MONOCYTE # 0.52EOSINOPHIL # 0.06BASOPHIL # 0.04NUCLEATED RBC # 0.000 MAG ( 03:00)MAGNESIUM 2.3 BASIC METABOLIC PANEL (03/12 03:00)SODIUM 138POTASSIUM 3.7CHLORIDE 107CARBON DIOXIDE 28ANION GAP 6.7 DGLUCOSE 148D H D HBLOOD UREA N ITROGEN 17GLOMERULAR FILTRATION RATE >=60 max estimateCR EATININE 1.0BUN/CREATININE RATIO 17.0CALCIUM 8.2 L PHOS (03/12/22 03:00)PHOSPHOROUS 3.1 K (03/12/22 00:00)POTASSIU M 3.9 PTT (03/12/22 00:00)THROMBOPLASTIN TIME PARTIAL 30.3 MAG (03/12/22 00:00)MAGNESIUM 1.7 L GLU BED ( 2 23:51)GLUBED 119 H GLU BED (03/11/22 22:58)GLUBE D 114 H TROP-I HIGH SEN (03/11/22 22:00)TROP-I HIGH SENS ITIVITY 1915 *H PHOS (03/11/22 22:00)PHOSPHOROUS 3.2 CBC W/AUTO DIFF (03/11/22 22:00)WHITE BLOOD CELL 7.1RED BLO OD CELL 2.85 L HEMOGLOBIN 8.7L LHEMATOCRIT 26.0L LMEAN C ELL VOLUME 91MEAN CELL HGB 30.5MEAN CELL HGB CONCENTRATION 33.5RED CELL DISTRIBUTION WIDTH 14.9 HPLATELET COUNT 269 MEAN PLATELET VOLUME 10.9NEUTROPHIL % 43.3IMMATURE GR ANULOCYTE % 0.4LYMPHOCYTE % 42.2MONOCYTE % 11.8EOSINOPHIL % 1.6BASOPHIL % 0.7NUCLEATED RBC % 0.0NEUTROPHIL # 3.07IMMATURE GRANULOCYTE # 0.030LYMPHOCYTE # 2.9 9MONOCYTE # 0.84 HEOSINOPHIL # 0.11BASOPHIL # 0.05NUCLEATED RBC # 0.000 BASIC METABOLIC PANEL (03/11/22 22:00)SODI UM 138POTASSIUM 3.7CHLORIDE 105CARBON DIOXIDE 26ANI ON GAP 10.7GLUCOSE 34D*L D*LBLOOD UREA NITROGEN 20GLOME RULAR FILTRATION RATE >=60 max estimateCREATININE 1.0BUN/CREATININE RATIO 20.0CALCIUM 8.7 MAG (03/22 22:00)MAGNESIUM 1.6 L ARTERIAL BLOOD GAS ( 21:44)ARTERIAL BLOOD GAS PH 7.414ARTERIAL BLOOD GAS PCO2 39.2ARTERIAL BLOOD GAS PO2 76.2 LBICARBONATE TOT AL HCO3 24.5BASE EXCESS 0.0ABG O2 SATURATION 95.2ABG TYP E ArterialARTERIAL FIO2 21.0PaO2/FiO2 362.80ABG VE NT MODE Room AirABG SITE Right RadialALLENS TEST YesTOT AL HGB 9.5 LTCO2 ARTERIAL 25.7 H GLU BED (03/11/22 20:55)GL UBED 63 L ELECTROLYTES PROFILE (03/11/22 20:30)SODIUM 135 POTASSIUM 3.2 LCHLORIDE 105CARBON DIOXIDE 23ANION GAP 10.2 GLU BED (03/11/22 20:11)GLUBED 112 H GLU BED (03/11/22 18:27)GLUBED 234 H LACTIC ACID (03/11/22 18:20)L ACTIC ACID 1.0 TROP-I HIGH SEN (03/11/22 18:00)TROP-I HIGH SENSITIVITY 2447 *H PROTHROMBIN TIME (03/11/22 18:00)PROTHRO MBIN TIME PATIENT 10.7INTERNATIONAL NORMAL RATIO 1.0 PHOS (03/11/22 18:00)PHOSPHOROUS 2.9 BASIC METABOLIC PANEL (03/22 18:00)SODIUM 132L LPOTASSIUM 3.3D L D LCHLORIDE 101CARBON DIOXIDE 24ANION GAP 10.3 DGLUCOSE 233H HBLOOD U JACQUE NITROGEN 22GLOMERULAR FILTRATION RATE 54 LCREATI NINE 1.1BUN/CREATININE RATIO 20.0CALCIUM 8.0 L MAG ( 03/11/22 18:00)MAGNESIUM 1.5 L PTT (03/11/22 18:00)THROMB OPLASTIN TIME PARTIAL 28.5 HGBA1C - GLYCOSYLATED HGB (03/22 18:00)GLYCOSYLATED HEMOGLOBIN (HA1C) 11.0 H GLU BED (03/11/22 17:44)GLUBED 262 H GLU BED (03/11/22 1 6:34)GLUBED 334 H GLU BED (03/11/22 14:57)GLUBED 404 *H GLU BED (03/11/22 13:01)GLUBED 449 *H MAG (03/11/22 12:5 9)MAGNESIUM 1.7 L TROP-I HIGH SEN (03/11/22 12:59)TROP-I HIG H SENSITIVITY 1804 *H LIPID PROFILE (CORONARY RISK ) (03/11/22 12:59)TRIGLYCERIDES 174 HCHOLESTEROL 292 HCHOLES TEROL/HDL RATIO 5HDL CHOLESTEROL 64 HLIPOPROTEIN LDL 182 H BASIC METABOLIC PANEL (03/11/22 12:59)SODIUM 125L LPOT ASSIUM 5.3H HCHLORIDE 93L LCARBON DIOXIDE 15L LANION GAP 22 .3 HGLUCOSE 477*H *HBLOOD UREA NITROGEN 23GLOMERULAR FILTRAT ION RATE 45 LCREATININE 1.3BUN/CREATININE RATIO 17.7CALCI UM 8.2 L UA RFLX MICR amp;CULT IF INDICATED (03/11/22 10:45) UA COLOR STRAWUA APPEARANCE CLEARUA GLUCOSE DIPSTICK 3+ H UA BILIRUBIN DIPSTICK NEGATIVEUA KETONE DIPSTICK 2+ NATHALIE SPECIFIC GRAVITY 1.020UA BLOOD DIPSTICK 1+ NATHALIE P H DIPSTICK 5.0UA PROTEIN DIPSTICK NEGATIVEUA UROBILINOGEN D IPSTICK NEGATIVEUA NITRITE DIPSTICK NEGATIVEUA LEUKOCYTE ESTERASE DIPSTICK NEGATIVEUA MICROSCOPIC NEEDED? YES NATHALIE WBC 0-2UA RBC 0-2UA BACTERIA NONE SEENUA SQUAMOUS CELLS R ARE COVID 19 INH AG (03/11/22 10:23)COVID 19 INHOUSE AG NE GATIVE BNP (03/11/22 10:19)B-TYPE NATRIURETIC PEPTIDE 348 H CBC W/AUTO DIFF (03/11/22 10:19)WHITE BLOOD CELL 5.4RED BL OOD CELL 3.11 LHEMOGLOBIN 9.5L LHEMATOCRIT 28.9L LMEAN CE LL VOLUME 93MEAN CELL HGB 30.5MEAN CELL HGB CONCENTRATION 32.9RED CELL DISTRIBUTION WIDTH 14.5 HPLATELET COUNT 251 MEAN PLATELET VOLUME 10.7 NEUTROPHIL % 72.6IMMATURE G RANULOCYTE % 0.6LYMPHOCYTE % 17.6MONOCYTE % 8.4EOSINOPHIL % 0.2BASOPHIL % 0.6NUCLEATED RBC % 0.0NEUTROPHIL # 3.89IMMATURE GRANULOCYTE # 0.030LYMPHOCYTE # 0.9 4 LMONOCYTE # 0.45EOSINOPHIL # 0.01BASOPHIL # 0.03NUCLEATED RBC # 0.000 -- ATTESTATION -- TIME SPENT ON PATIENT CA RE: - Direct 35 minutes - > 50% of time spent on Couns eling/Care Coordination CARE ACTIVITIES / CARE COORDINATION : - I have reviewed the history and repeated the ingram elemen ts - I have seen and examined this patient - I have reviewed the progress in the clinical course since the lastex amination - I have discussed the patient's condition with ot her members of the care team ADDITIONAL DETAIL:I HAVE SPENT >35 MINUTES IN THE EVALUATION AND TREATMENT OF THIS PATIENT. Signed in PatientKeeper by Nini Doan MD on 04/21 at 10:03 at 1003ATTENTION EDITS and/or ADDENDA must be ma de in Patient Keeper for this note. Edits and ammen dments created in [employer] are not visible in Patien t Keeper or the legal medical record (HPF). RPT #: [id number] OF REPORT PRProgress [id number] Available for patient [id number]:04:0 8 2022-03-12 [id number]:00 [facility] 08:28:00 [place] [facility]Cardiology Progress Notes REPORT # : [id number] REPORT STATUS: Signed DATE: 03/12/22 TIME: 827 PATIENT: LIZZIE HINKLE UNIT #: [id number] #: [id number] ROOM #: NC.IC07 BED: A : 3 AGE: 71 SEX: F ATTEND: Erasmo Fay MD ADM DT: AUTHOR: Bal Ferro MD ATTENTION EDITS and/or ADDENDA must be made i n Patient Keeper for this note. Edits and ammendments c reated in [employer] are not visible in Patient Keeper or the legal medical record (HPF). -- ASSESSMENT AND PLAN -- PROBLEMS : 1: NSTEMI (non-ST elevated myocardial infarction)A/P: - EC G - SR, rate 97- Tn 696 --> 1804- she has uncontrolled D M thus can be asymptomatic for that reason- rec empiric jose alejandro atment for NSTEMI with heparin gtt for 48 hours until 03/13 /224:00 pm- TTE 08/20 - EF 55-60%, G1DD, m MR, mM AV scl, no PC eff- driven by secondary phenomenon (DKA/ADOLFO); denies any CP or SOB- c/w ASA 81 mg QD, plavix 75 mg QD, toprol 2 5 mg QD, imdur 30, ranexa 1000 BID- not on statin due to severe myalgias, on zetia- Given her NSTEMI, I discusse d the options of CABG vs. PCI vs. medical therapywith the patient. I explained to her that she is high ris k for procedure andsurgery related complications given her inconsistent medication intake anduncontrolled D M. I advised her that risks of CABG can include a serioussternotomy wound infection and poor wound healing in the setting of DM. She isalso not an ideal dyan date for PCI given she cannot reliably take dualantiplate let therapy and has uncontrolled DM which would put her at h igh riskfor in-stent restenosis/thrombosis which would be fa terra. Given that she isasymptomatic, stable, would treat wit h medical therapy for NSTEMI with DAPT,therapeutic AC- hx of noncompliance with medications Check echo - pend ing 2: CAD (coronary artery disease)A/P: - [facility] 10/19: RCA mi d 100% with lt-to-rt collater ,CX mid 60-70%, MOM prox8-0%, LAD prox and mid two consecutive 60-70% stenoses with near-significantFFR of 0.81, D2 ostial 70% then prox 80% sten, edp 3 --> eval for 4v acb tolad, d2, mom, and distal RCA --> Dr Mueller need for ACB yet he wishe s towait and do it on OP basis once a1c is lower and once compliance is documented- DKA/NSTEMI adm 04/20 + 08/20 + ; family opted for medical management- admitted for DKA 1 05/22- asp, plavix, lipitor, toprol, imdur, ranexa- TTE 08/20 - EF 55-60%, G1DD, m MR, mM AV scl, no PC eff- rechec k echo to r/o acute change given recurrent NSTEMI 3: DKA ( diabetic ketoacidoses)A/P: - mxm per endo/primary 4: acut e renal failureA/P: ac d/t dehydration/DKAmonitor BMPavo id nephrotoxinsbaseline Cr 0.9 --> 1.4 03/11/22 5: PADA/P: -80% sten ostial rt SFA on lted groin angio with [facility] 10/19-laus 10/19: Change from triphasic to monopha sic waveforms in the right femoralartery and at the left lower leg below the popliteal artery suggesting stenos is.-rec RO and poss well logging captain mud analysis in the future once compliance confi rmed and improvement [id number], plav, better BS ctrl-avoi d low BP 6: Statin intoleranceA/P: - severe myalgias on lipi tor- on zetia 7: NoncomplianceA/P: - encouraged complian ce with meds -- SUBJECTIVE -- PATIENT NARRATIVE:No event s overnight. -REVIEW OF SYSTEMS- GENERAL: Negative for fever, chills, unexplained weight loss,EARS/NOSE/THROA T: Negative for sore throat. No otalgia. No rhinorrhea.RESPI RATORY: Negative for cough, chest congestion, wheezing,CARDIOVASCULAR: Negative for, palpitati ons, n, orthopnea, edema and dizzinessGASTROINTESTINAL: Negative for abdominal pain, nausea, vomiting, diarrhea,GENITOURINARY: Negative for dysuria, fr equency, or urgency. No gross hematuria.SKIN: Negative for r ashes. No pruritus.NEUROLOGICAL: Negative for headache, nu mbness, tingling, and weakness -- OBJECTIVE -- VITALS (05/11 08:28 - 03/12 08:28):Temperature F: 98.5 (97.0 - 98.9) Temperature source: Oral I/Os (03/11 07:00 - 03/12 07:00):Ne t -350Output 350 -EXAM- GENERAL: Well developed, well nourished, in no apparent distress.NECK: No mass es, no thyromegaly, no abnormal cervical nodes, trachea midline.LUNGS: Respirations unlabored, clear to auscultation bilaterally, no wheezing, no ronchi , no ralesHEART: Regular rate and rhythm, normal S1, S2, no murmurs, no rubs, no gallops, no clicks.ABDOMEN: + BS SOft non tender no HSM no massEXTREMITIES: No clubbin g, cyanosis or edemaNEUROLOGICAL: Alert and oriented to pers on, place, no facial asymmetry, normal speech. Moves all ex tremities symmetrically, normal tone,PULSES: Normal caroti d pulses without bruits. Normal pulses bilaterally at rad ial, dorsalis pedis and posterior tibial locations.SK IN: No pallor, no jaundice, no rash, normal turgorLYMPH NODES: None palpable cervical, axillary, supraclavicula r or inguinal locationsPSYCHIATRIC: Mood euthymic. Af fect congruent, Normal eye contact, normal speech. th ought process and thought content intact. -- DATA -- M EDICATIONS MAGNESIUM 1 GM IV Q1H (PRN)MAGNESIUM 1 GM IV Q1H (PRN)SODIUM PHOSPHATE with/in SODIUM CHLORIDE 0. 9% 15 MM IV ASDIR (PRN)(DC'd) PK CONTINUE FROM HOME 1 TAB PO DAILYRANOLAZINE 1000 MG PO [id number] 75 M G PO DAILYSODIUM CHLORIDE 0.9% 1000 ML IV [id number] LISPRO 0 UNITS SUBQ AC HSFAMOTIDINE 20 MG PO DAILY@2100DI CYCLOMINE HCL 10 MG PO TID PRNISOSORBIDE MONONITRATE 30 MG PO DAILYASPIRIN 81 MG PO DAILYMETOPROLOL SUCCINATE 25 MG PO DAILYSODIUM CHLORIDE 0.9% 1000 ML IV .[id number] SE 5%-NS 1000 ML IV [id number] SODIUM,PORCINE 4500 UNIT IV ASDIR (PRN)HEPARIN SODIUM,PORCINE 2000 UNIT IV ASDIR (PRN)MAGNESIUM 1 GM IV ASDIR (PRN)SOD BIPHOS/POT PHOSPHATE 1 PKT PO ASDIR (PRN)FOLIC ACID 3 MG PO DAILYHEPA RIN SODIUM,PORCINE/D5W 98937 UNIT IV TITRATEINSULIN REGULAR, HUMAN with/in SODIUM CHLORIDE 100 mL BAG 100 UNI T IV ASDIRCYANOCOBALAMIN 1000 MCG PO DAILYDEXTROSE 50 %-WATER 50 ML IV ASDIRINSULIN GLARGINE 20 UNITS SUBQ QAMSOD IUM PHOSPHATE with/in SODIUM CHLORIDE 0.9% 30 MM IV ASDIR (PRN)PYRIDOXINE HCL 50 MG PO DAILYPOTASSIUM CHLO RIDE 20 MEQ IV ASDIRGLUCAGON 1 MG IV ASDIRMUPIROCIN 1 APPLIC NASAL BIDSODIUM PHOSPHATE with/in SODIUM CHLORIDE 0.9% 20 MM IV ASDIR (PRN)EZETIMIBE 10 MG PO DAILYSODIUM CHLORI DE 0.45% 1000 ML IV ASDIRSODIUM CHLORIDE 0.9% 1000 ML IV ASDIRDEXTROSE 5%-0.45% SALINE 1000 ML IV ASDIRPO TASSIUM BICARBONATE/CIT AC 20 MEQ PO ASDIR LABS GLU BED (03/12/22 07:27)GLUBED 110 H PTT (03/12/22 06:00)THROMBOP LASTIN TIME PARTIAL 100.8 D*H CBC W/AUTO DIFF (03/12/22 03:0 0)WHITE BLOOD CELL 5.0RED BLOOD CELL 2.66 LHEMOGLOBIN 8 .0L LHEMATOCRIT 24.1L LMEAN CELL VOLUME 91MEAN CELL HGB 30.1MEAN CELL HGB CONCENTRATION 33.2RED CELL DIS TRIBUTION WIDTH 14.5 HPLATELET COUNT 233MEAN PLATELET VOL UME 10.7NEUTROPHIL % 56.1IMMATURE GRANULOCYTE % 0.4L YMPHOCYTE % 31.1MONOCYTE % 10.4EOSINOPHIL % 1.2BASOPHIL % 0 .8NUCLEATED RBC % 0.0NEUTROPHIL # 2.80IMMATURE GRANULOCYTE # 0.020LYMPHOCYTE # 1.55MONOCYTE # 0.52EOSINOPHIL # 0.06BASOPHIL # 0.04NUCLEATED RBC # 0.000 MAG ( 03:00)MAGNESIUM 2.3 BASIC METABOLIC PANEL (03/12 03:00)SODIUM 138POTASSIUM 3.7CHLORIDE 107CARBON DIOXIDE 28ANION GAP 6.7 DGLUCOSE 148D H D HBLOOD UREA NI TROGEN 17GLOMERULAR FILTRATION RATE >=60 max estimateCR EATININE 1.0BUN/CREATININE RATIO 17.0CALCIUM 8.2 L PHOS ( 03/12/22 03:00)PHOSPHOROUS 3.1 K (03/12/22 00:00)POTASSIU M 3.9 PTT (03/12/22 00:00)THROMBOPLASTIN TIME PARTIAL 30.3 MAG (03/12/22 00:00)MAGNESIUM 1.7 L GLU BED ( 2 23:51)GLUBED 119 H GLU BED (03/11/22 22:58)GLUBE D 114 H TROP-I HIGH SEN (03/11/22 22:00)TROP-I HIGH SENS ITIVITY 1915 *H PHOS (03/11/22 22:00)PHOSPHOROUS 3.2 CBC W/AUTO DIFF (03/11/22 22:00)WHITE BLOOD CELL 7.1RED BLO OD CELL 2.85 LHEMOGLOBIN 8.7L LHEMATOCRIT 26.0L LMEAN CE LL VOLUME 91MEAN CELL HGB 30.5MEAN CELL HGB CONCENTRATION 33.5RED CELL DISTRIBUTION WIDTH 14.9 HPLATELET COUNT 269 MEAN PLATELET VOLUME 10.9NEUTROPHIL % 43.3IMMATURE GR ANULOCYTE % 0.4LYMPHOCYTE % 42.2MONOCYTE % 11.8EOSINOPHIL % 1.6BASOPHIL % 0.7NUCLEATED RBC % 0.0NEUTROPHIL # 3.07IMMATUR E GRANULOCYTE # 0.030LYMPHOCYTE # 2.99MONOCYTE # 0 .84 HEOSINOPHIL # 0.11BASOPHIL # 0.05NUCLEATED RBC # 0.000 BASIC METABOLIC PANEL (03/11/22 22:00)SODIUM 138 POTASSIUM 3.7CHLORIDE 105CARBON DIOXIDE 26ANION GAP 10.7GL UCOSE 34D*L D*LBLOOD UREA NITROGEN 20GLOMERULAR FILTRATION R ATE >=60 max estimateCREATININE 1.0BUN/CREATININE RATIO 2 0.0CALCIUM 8.7 MAG (03/11/22 22:00)MAGNESIUM 1.6 L ARTERIAL BLOOD GAS (03/11/22 21:44)ARTERIAL BLOOD GAS PH 7.414ARTER IAL BLOOD GAS PCO2 39.2ARTERIAL BLOOD GAS PO2 76.2 LBICARB ANGELA TOTAL HCO3 24.5 BASE EXCESS 0.0ABG O2 SATURATION 95.2A BG TYPE ArterialARTERIAL FIO2 21.0PaO2/FiO2 362.80ABG VE NT MODE Room AirABG SITE Right RadialALLENS TEST YesTOTA L HGB 9.5 LTCO2 ARTERIAL 25.7 H GLU BED (03/11/22 20:55)GL UBED 63 L ELECTROLYTES PROFILE (03/11/22 20:30)SODIUM 135P OTASSIUM 3.2 LCHLORIDE 105CARBON DIOXIDE 23ANION GAP 10. 2 GLU BED (03/11/22 20:11)GLUBED 112 H GLU BED (03/11/22 1 8:27)GLUBED 234 H LACTIC ACID (03/11/22 18:20)LACTIC ACID 1. 0 TROP-I HIGH SEN (03/11/22 18:00)TROP-I HIGH SENSITIVITY 2447 *H PROTHROMBIN TIME (03/11/22 18:00)PROTHROMBIN MARY JO E PATIENT 10.7INTERNATIONAL NORMAL RATIO 1.0 PHOS ( 2 18:00)PHOSPHOROUS 2.9 BASIC METABOLIC PANEL (03/22 18:00)SODIUM 132L LPOTASSIUM 3.3D L D LCHLORIDE 101CARBON DIOXIDE 24ANION GAP 10.3 DGLUCOSE 233H HBLOOD UR EA NITROGEN 22GLOMERULAR FILTRATION RATE 54 LCREATININE 1.1BUN/CREATININE RATIO 20.0CALCIUM 8.0 L MAG (1 05/11/21 18:00)MAGNESIUM 1.5 L PTT (03/11/22 18:00)THROMB OPLASTIN TIME PARTIAL 28.5 HGBA1C - GLYCOSYLATED HGB (03/22 18:00) GLYCOSYLATED HEMOGLOBIN (HA1C) 11.0 H GLU BED (03/11/22 17:44)GLUBED 262 H GLU BED (03/11/22 1 6:34)GLUBED 334 H GLU BED (03/11/22 14:57)GLUBED 404 *H GLU BED (03/11/22 13:01)GLUBED 449 *H MAG (03/11/22 12:5 9)MAGNESIUM 1.7 L TROP-I HIGH SEN (03/11/22 12:59)TROP-I HIG H SENSITIVITY 1804 *H LIPID PROFILE (CORONARY RISK ) (03/11/22 12:59)TRIGLYCERIDES 174 HCHOLESTEROL 292 HCHOLE STEROL/HDL RATIO 5HDL CHOLESTEROL 64 HLIPOPROTEIN LDL 182 H BASIC METABOLIC PANEL (03/11/22 12:59)SODIUM 125L LPO TASSIUM 5.3H HCHLORIDE 93L LCARBON DIOXIDE 15L LANION GA P 22.3 HGLUCOSE 477*H *HBLOOD UREA NITROGEN 23GLOMERUL AR FILTRATION RATE 45 LCREATININE 1.3BUN/CREATININE RATIO 17.7CALCIUM 8.2 L UA RFLX MICR amp;CULT IF INDIC ATED (03/11/22 10:45)UA COLOR STRAWUA APPEARANCE LALA ROQUE GLUCOSE DIPSTICK 3+ NATHALEI BILIRUBIN DIPSTICK NEGATIVEUA KE TONE DIPSTICK 2+ NATHALIE SPECIFIC GRAVITY 1.020UA BLOOD D IPSTICK 1+ NATHALIE PH DIPSTICK 5.0UA PROTEIN DIPSTICK NEGATIVEU A UROBILINOGEN DIPSTICK NEGATIVEUA NITRITE DIPSTIC K NEGATIVEUA LEUKOCYTE ESTERASE DIPSTICK NEGATIVEU A MICROSCOPIC NEEDED? YES NATHALIE WBC 0-2UA RBC 0-2UA BACTERIA NONE SEENUA SQUAMOUS CELLS RARE COVID 19 INH AG (03/11/22 10:23) COVID 19 INHOUSE AG NEGATIVE BNP ( 2 10:19)B-TYPE NATRIURETIC PEPTIDE 348 H CBC W/AUT O DIFF (03/11/22 10:19)WHITE BLOOD CELL 5.4RED BLOOD CE LL 3.11 LHEMOGLOBIN 9.5L LHEMATOCRIT 28.9L LMEAN CELL V OLUME 93MEAN CELL HGB 30.5MEAN CELL HGB CONCENTRATION 32.9RED CELL DISTRIBUTION WIDTH 14.5 HPLATELET COUNT 251 MEAN PLATELET VOLUME 10.7NEUTROPHIL % 72.6IMMATURE GR ANULOCYTE % 0.6LYMPHOCYTE % 17.6MONOCYTE % 8.4EOSINOPHIL % 0 .2BASOPHIL % 0.6NUCLEATED RBC % 0.0NEUTROPHIL # 3.89IMMATUR E GRANULOCYTE # 0.030LYMPHOCYTE # 0.94 LMONOCYTE # 0.45EOSINOPHIL # 0.01BASOPHIL # 0.03NUCLEATED RB C # 0.000 GLU BED (03/11/22 09:52)GLUBED 448 *H Signed in PatientKeeper by Bal Ferro MD on 03/12/22 a t 08:29 Electronically Signed by Bal Ferro MD on at 0829ATTENTION EDITS and/or ADDENDA must be ma de in Patient Keeper for this note. Edits and ammen dments created in Uniplaces are not visible in Patien t Keeper or the legal medical record (HPF). RPT #: [id number] OF REPORT PRProgress [id number] Available for patient [id number] 7 2022-03-12 [id number] [facility] 07:19:00 [facility] ([facility])Intensive Care Progress Note REPOR T #: [id number] REPORT STATUS: Signed DATE: 03/12/22 T EDUARDO: 0719 PATIENT: LIZZIE HINKLE UNIT #: [id number] CCOUNT #: [id number] ROOM #: [facility]2201 BED: 1 : 3 AGE: 71 SEX: F ATTEND: Erasmo Fay MD ADM DT: AUTHOR: Dheeraj Sanders MD ATTENTION EDITS and/or ADDENDA must be made i n Patient Keeper for this note. Edits and ammendments c reated in Uniplaces are not visible in Patient Keeper or the legal medical record (HPF). -- ASSESSMENT AND PLAN -- GENERAL ASSESSMENT:[facility] Care Note ASSESSMENTDKAAnion ga p metabolic acidosis AG 21HyperkalemiaNSTEMIHTNHLDmultivesse l CAD PLAN Neuro- neuro checks per unit protocol- fall prec autions Pulm- Chest x-ray showed no acute pulmonary proc ess- keep SpO2 > 92% CV- known CAD, but pt opted for medic al mgmt a year ago- monitor on telemetry-NSTEMI, continue heparin- isosorbide,- DAPT (ASA/Plavix)- Echo pending- ca rds following Renal- Monitor kidney function/UOP- monitor/correct lytes-Hyperkalemia likely second amador to insulin deficiency. Continue to monitor whileon insulin drip - Avoid nephrotoxins GI- no acute GI issues - bowel regimen Heme- Monitor H/H, PLT- Transfuse to dean p Hgb > 7 Endo- UA w/ , +ketones;- no longer in DKA, trans tion to subq insulin-endocrine following- diabetic educa tion ID- normal WBC, afebrile- no indication for ABX- mon itor WBC/fever curve ICU checklistLines: PIVDVT/GI pp x: heparin, SCDs / no indication for GI ppxCode status: full Dispo: ICU Subjectivewean off insulin drip this Analisa room airno chest pain HPI:Lizzie Hinkle is a 71 y/o legally blind female with history as list ed below.Patient stated she started to have chest p ain and lethargy so presented to theemergency room. Of n ote she states that she has been out of her insulin for thelast 2 days. In the ER patient was noted to be in DKA. She was also noted tohave elevated troponin which is kno wn to be chronic. Cardiology was consultedand she was sta rted on insulin drip and transferred to ICU for continue d caremanagement. Review of systems: negative exce pt for stated Medical Hx: DMT1, HTN, HLD, CKD, multives ricco CAD, PAD, legally blindSurgical Hx:Social Hx:Family H x: Physical ExamGeneral: NAD, awake and alertEyes: Anicteric sclerae.Mouth: MMMNeck: Supple.CV: RRR. peripher al pulses difficult to appreciate Pulm: bilateral chest ri se. unlabored respirations, room airAbdomen: Soft, nondistended. nontenderExtremities: No lower ext remity edema.Skin: Warm, dry. Cap refill < 3 secsNeuro: Awake, alert, no FNDsPsych: normal mood -- OBJECTIVE -- VITALS (03/11 07:19 - 03/12 07:19):Temperature F: 98.2 (97.0 - 98.9)Temperature source: Axillary I/Os (03/11 07 :00 - 03/12 07:00):Net -350Output 350 -- DATA -- MEDICATIONS MAGNESIUM 1 GM IV Q1H (PRN)MAGNESIUM 1 GM IV Q1H (PRN)SODI UM PHOSPHATE with/in SODIUM CHLORIDE 0.9% 15 MM IV ASDIR (PRN)(DC'd) PK CONTINUE FROM HOME 1 TAB PO DAILY RANOLAZINE 1000 MG PO [id number] 75 MG PO DAILYSODIUM CHLORIDE 0.9% 1000 ML IV [id number] LISPRO 0 UNITS SUBQ AC HSFAMOTIDINE 20 MG PO DAILY@2100DICYCLOMINE HCL 10 MG PO TID PRNISOSORBIDE MONONITRATE 30 MG PO DAILYASPI RIN 81 MG PO DAILYMETOPROLOL SUCCINATE 25 MG PO DAILYSODIU M CHLORIDE 0.9% 1000 ML IV .[id number] 5%-NS 1000 ML IV X 1EDHEPARIN SODIUM,PORCINE 4500 UNIT IV ASDIR (PRN)HEPARIN SODIUM,PORCINE 2000 UNIT IV ASDIR (PRN)MAGNESIUM 1 GM IV ASDIR (PRN)SOD BIPHOS/POT PHOSPHATE 1 PKT PO ASD IR (PRN)FOLIC ACID 3 MG PO DAILYHEPARIN SODIUM,PORC INE/D5W 89820 UNIT IV TITRATEINSULIN REGULAR, HUMAN with /in SODIUM CHLORIDE 100 mL BAG 100 UNIT IV ASDIRCYANOCOBALA MIN 1000 MCG PO DAILYDEXTROSE 50%-WATER 50 ML IV ASDIRINS ULIN GLARGINE 20 UNITS SUBQ QAMSODIUM PHOSPHATE with/ in SODIUM CHLORIDE 0.9% 30 MM IV ASDIR (PRN)PYRIDOXINE HCL 50 MG PO DAILYPOTASSIUM CHLORIDE 20 MEQ IV ASDIRGLUCAGON 1 MG IV ASDIRMUPIROCIN 1 APPLIC NASAL BIDSODIUM PHOSPHAT E with/in SODIUM CHLORIDE 0.9% 20 MM IV ASDIR (PRN)EZETIMI BE 10 MG PO DAILYSODIUM CHLORIDE 0.45% 1000 ML IV ASDIRSODIU M CHLORIDE 0.9% 1000 ML IV ASDIRDEXTROSE 5%-0.45% SALINE 10 00 ML IV ASDIRPOTASSIUM BICARBONATE/CIT AC 20 MEQ PO ASDI R LABS CBC W/AUTO DIFF (03/12/22 03:00)WHITE BLOOD CELL 5.0 RED BLOOD CELL 2.66 LHEMOGLOBIN 8.0L LHEMATOCRIT 24.1L LME AN CELL VOLUME 91MEAN CELL HGB 30.1MEAN CELL HGB CONCEN TRATION 33.2RED CELL DISTRIBUTION WIDTH 14.5 HPLATELET C OUNT 233MEAN PLATELET VOLUME 10.7NEUTROPHIL % 56.1IMM ATURE GRANULOCYTE % 0.4LYMPHOCYTE % 31.1MONOCYTE % 10. 4EOSINOPHIL % 1.2BASOPHIL % 0.8NUCLEATED RBC % 0.0NEUTROPHI L # 2.80IMMATURE GRANULOCYTE # 0.020LYMPHOCYTE # 1.5 5MONOCYTE # 0.52EOSINOPHIL # 0.06BASOPHIL # 0.04NUCLEATED RB C # 0.000 MAG (03/12/22 03:00)MAGNESIUM 2.3 BASIC METABOLI C PANEL (03/12/22 03:00)SODIUM 138POTASSIUM 3.7CHLORIDE 107CARBON DIOXIDE 28ANION GAP 6.7 DGLUCOSE 148D H D HBLOO D UREA NITROGEN 17GLOMERULAR FILTRATION RATE >=60 max estimateCREATININE 1.0BUN/CREATININE RATIO 17.0C ALCIUM 8.2 L PHOS (03/12/22 03:00)PHOSPHOROUS 3.1 K ( 00:00)POTASSIUM 3.9 PTT (03/12/22 00:00)THROMBOP LASTIN TIME PARTIAL 30.3 MAG (03/12/22 00:00)MAGNESIUM 1.7 L GLU BED (03/11/22 23:51)GLUBED 119 H GLU BED (03/11/22 2 2:58)GLUBED 114 H TROP-I HIGH SEN (03/11/22 22:00)TROP-I HIG H SENSITIVITY 1915 *H PHOS (03/11/22 22:00)PHOSPHO JODIE 3.2 CBC W/AUTO DIFF (03/11/22 22:00)WHITE BLOOD CELL 7.1RED BLOOD CELL 2.85 LHEMOGLOBIN 8.7L LHEMATOCRIT 26 .0L LMEAN CELL VOLUME 91MEAN CELL HGB 30.5MEAN CELL HGB CO NCENTRATION 33.5RED CELL DISTRIBUTION WIDTH 14.9 HPLATELET C OUNT 269MEAN PLATELET VOLUME 10.9NEUTROPHIL % 43.3IMM ATURE GRANULOCYTE % 0.4LYMPHOCYTE % 42.2MONOCYTE % 11.8EOSINOPHIL % 1.6BASOPHIL % 0.7NUCLEATED RBC % 0.0NEUTROPHIL # 3.07IMMATURE GRANULOCYTE # 0.030 LYMPHOCYTE # 2.99MONOCYTE # 0.84 HEOSINOPHIL # 0.11BASOPHIL # 0.05NUCLEATED RBC # 0.000 BASIC METABOLIC PANEL (03/11/22 22:00)SODIUM 138POTASSIUM 3.7CHLORIDE 105CARBON DIOXIDE 26ANION GAP 10.7GLUCOSE 34D*L D*LBLOOD UREA NITR OGEN 20GLOMERULAR FILTRATION RATE >=60 max estimateCR EATININE 1.0BUN/CREATININE RATIO 20.0CALCIUM 8.7 MAG (03/22 22:00)MAGNESIUM 1.6 L ARTERIAL BLOOD GAS ( 21:44)ARTERIAL BLOOD GAS PH 7.414ARTERIAL BLOOD GAS PCO2 39.2ARTERIAL BLOOD GAS PO2 76.2 LBICARBONATE TOT AL HCO3 24.5BASE EXCESS 0.0ABG O2 SATURATION 95.2ABG TYP E ArterialARTERIAL FIO2 21.0PaO2/FiO2 362.80ABG VE NT MODE Room AirABG SITE Right Radial ALLENS TEST YesTO TERRA HGB 9.5 LTCO2 ARTERIAL 25.7 H GLU BED (03/11/22 20:55)GL UBED 63 L ELECTROLYTES PROFILE (03/11/22 20:30)SODIUM 135 POTASSIUM 3.2 LCHLORIDE 105CARBON DIOXIDE 23ANION GAP 10.2 GLU BED (03/11/22 20:11)GLUBED 112 H GLU BED (03/11/22 1 8:27)GLUBED 234 H LACTIC ACID (03/11/22 18:20)LACTIC ACID 1. 0 TROP-I HIGH SEN (03/11/22 18:00)TROP-I HIGH SENSITIVITY 2447 *H PROTHROMBIN TIME (03/11/22 18:00)PROTHROMBIN MARY JO E PATIENT 10.7INTERNATIONAL NORMAL RATIO 1.0 PHOS ( 2 18:00)PHOSPHOROUS 2.9 BASIC METABOLIC PANEL (03/22 18:00)SODIUM 132L LPOTASSIUM 3.3D L D LCHLORIDE 101CARBON DIOXIDE 24ANION GAP 10.3 DGLUCOSE 233H HBLOOD UR EA NITROGEN 22GLOMERULAR FILTRATION RATE 54 LCREATININE 1.1BUN/CREATININE RATIO 20.0CALCIUM 8.0 L MAG ( 03/11/22 18:00)MAGNESIUM 1.5 L PTT (03/11/22 18:00)THROMB OPLASTIN TIME PARTIAL 28.5 HGBA1C - GLYCOSYLATED HGB (03/22 18:00)GLYCOSYLATED HEMOGLOBIN (HA1C) 11.0 H GLU BED (03/11/22 17:44)GLUBED 262 H GLU BED (03/11/22 1 6:34)GLUBED 334 H GLU BED (03/11/22 14:57)GLUBED 404 *H GLU BED (03/11/22 13:01)GLUBED 449 *H MAG (03/11/22 12:5 9)MAGNESIUM 1.7 L TROP-I HIGH SEN (03/11/22 12:59)TROP-I HIG H SENSITIVITY 1804 *H LIPID PROFILE (CORONARY RISK ) (03/11/22 12:59)TRIGLYCERIDES 174 HCHOLESTEROL 292 HCHOLES TEROL/HDL RATIO 5HDL CHOLESTEROL 64 HLIPOPROTEIN LDL 182 H BASIC METABOLIC PANEL (03/11/22 12:59)SODIUM 125L LPOT ASSIUM 5.3H HCHLORIDE 93L LCARBON DIOXIDE 15L LANION GAP 22 .3 HGLUCOSE 477*H *HBLOOD UREA NITROGEN 23GLOMERULAR FILTRAT ION RATE 45 LCREATININE 1.3BUN/CREATININE RATIO 17.7CALCI UM 8.2 L UA RFLX MICR amp;CULT IF INDICATED (03/11/22 10:45) UA COLOR STRAWUA APPEARANCE CLEARUA GLUCOSE DIPSTICK 3+ H UA BILIRUBIN DIPSTICK NEGATIVEUA KETONE DIPSTICK 2+ NATHALIE SPECIFIC GRAVITY 1.020UA BLOOD DIPSTICK 1+ NATHALIE P H DIPSTICK 5.0UA PROTEIN DIPSTICK NEGATIVEUA UROBILINOGEN D IPSTICK NEGATIVEUA NITRITE DIPSTICK NEGATIVEUA LEUKOCYTE ESTERASE DIPSTICK NEGATIVEUA MICROSCOPIC NEEDED? YES NATHALIE WBC 0-2UA RBC 0-2UA BACTERIA NONE SEENUA SQUAMOUS CELLS R ARE COVID 19 INH AG (03/11/22 10:23)COVID 19 INHOUSE AG NE GATIVE BNP (03/11/22 10:19)B-TYPE NATRIURETIC PEPTIDE 348 H CBC W/AUTO DIFF (03/11/22 10:19)WHITE BLOOD CELL 5.4 RED B LOOD CELL 3.11 LHEMOGLOBIN 9.5L LHEMATOCRIT 28.9L LMEAN CE LL VOLUME 93MEAN CELL HGB 30.5MEAN CELL HGB CONCENTRATION 32.9RED CELL DISTRIBUTION WIDTH 14.5 HPLATELET COUNT 251 MEAN PLATELET VOLUME 10.7NEUTROPHIL % 72.6IMMATURE GR ANULOCYTE % 0.6LYMPHOCYTE % 17.6MONOCYTE % 8.4EOSINOPHIL % 0 .2BASOPHIL % 0.6NUCLEATED RBC % 0.0NEUTROPHIL # 3.89IMMATUR E GRANULOCYTE # 0.030LYMPHOCYTE # 0.94 LMONOCYTE # 0.45EOSINOPHIL # 0.01BASOPHIL # 0.03NUCLEATED R BC # 0.000 GLU BED (03/11/22 09:52)GLUBED 448 *H Signed in PatientKeeper by Dheeraj Sanders MD on 03/12/22 at 22:56 at 2256ATTENTION EDITS and/or ADDENDA must be ma de in Patient Keeper for this note. Edits and ammen dments created in Unipl[employer] are not visible in Patien t Keeper or the legal medical record (HPF). RPT #: [id number] OF REPORT PRProgress [id number] Available for patient [id number] 2 2022-03-11 [id number] [facility] 20:07:00 [facility] ([facility])Intensive Care Consultation REPORT #: [id number] REPORT STATUS: Signed DATE: 03/11/22 T EDUARDO: 2006 PATIENT: LIZZIE HINKLE UNIT #: [id number] CCOUNT #: [id number] ROOM #: NC.IC07 BED: A : 3 AGE: 71 SEX: F ATTEND: Erasmo Fay MD ADM DT: AUTHOR: Dheeraj Sanders MD ATTENTION EDITS and/or ADDENDA must be made i n Patient Keeper for this note. Edits and ammendments c reated in Uniplaces are not visible in Patient Keeper or the legal medical record (HPF). -- ASSESSMENT AND PLAN -- GENERAL ASSESSMENT:[facility] Care Note ASSESSMENTDKAAnion ga p metabolic acidosis AG 21HyperkalemiaNSTEMIHTNHLDmultivesse l CAD PLAN Neuro- neuro checks per unit protocol- fall prec autions Pulm- Chest x-ray showed no acute pulmonary proc ess- keep SpO2 > 92% CV- known CAD, but pt opted for medic al mgmt a year ago- monitor on telemetry-NSTEMI, continue heparin- isosorbide,- DAPT (ASA/Plavix)- Echo pending- ca rds following Renal- Monitor kidney function/UOP- monitor/correct lytes-Hyperkalemia likely second amador to insulin deficiency. Continue to monitor whileon insulin drip - Avoid nephrotoxins GI- no acute GI issues - bowel regimen Heme- Monitor H/H, PLT- Transfuse to dean p Hgb > 7 Endo- UA w/ , +ketones;- Insulin gtt per DKA pro tocol. riate- diabetic education endocrine consult when downgraded ID- normal WBC, afebrile- no indication for ABX- monitor WBC/fever curve ICU checklistLines: PIVDVT/GI pp x: heparin, SCDs / no indication for GI ppxCode status: full Dispo: ICU HPI:Lizzie Hinkle is a 71 y/o legally blind female with history as listed belo w.Patient stated she started to have chest pain and lethar gy so presented to theemergency room. Of note she stat es that she has been out of her insulin for thelast 2 days. In the ER patient was noted to be in DKA. She was also not ed tohave elevated troponin which is known to be chronic. Cardiology was consultedand she was started on insulin drip and transferred to ICU for continued caremanagement. Review of systems: negative except for stated Medical Hx: DMT1, HTN, HLD, CKD, multivessel CAD, PAD, legally blindSur gical Hx:Social Hx:Family Hx: Physical ExamGeneral: NA D, awake and alertEyes: Anicteric sclerae.Mouth: MMMNeck: Supple.CV: RRR. peripheral pulses difficult to appreciatePu lm: bilateral chest rise. unlabored respirations, ro om airAbdomen: Soft, nondistended. nontenderExtremi ties: No lower extremity edema.Skin: Warm, dry. Cap refil l < 3 secsNeuro: Awake, alert, no FNDsPsych: normal mo od -- OBJECTIVE -- VITALS (03/10 20:09 - 03/11 20:09): Temperature F: 98.9Temperature source: Oral -- DATA -- MEDIC ATIONS INSULIN REGULAR, HUMAN with/in SODIUM CHLORIDE 1 00 mL BAG 100 UNIT IV ASDIRCYANOCOBALAMIN 1000 MCG PO WILMAN YDEXTROSE 50%-WATER 50 ML IV ASDIR(DC'd) PK CONTINUE FROM HOME 1 TAB PO DAILYRANOLAZINE 1000 MG PO [id number] GLARG INE 20 UNITS SUBQ QAMclopidogreL 75 MG PO DAILYSODIUM C HLORIDE 0.9% 1000 ML IV [id number] LISPRO 0 UNITS SUBQ AC HSFAMOTIDINE 20 MG PO DAILY@2100PYRIDOXINE HCL 5 0 MG PO DAILYDICYCLOMINE HCL 10 MG PO TID PRNISOSORBIDE MONONITRATE 30 MG PO DAILYASPIRIN 81 MG PO DAILYMETOPROLOL S UCCINATE 25 MG PO DAILYGLUCAGON 1 MG IV ASDIRSODIUM CHLORIDE 0.9% 1000 ML IV .[id number] 1 APPLIC NASAL BIDDEXTROSE 5%-NS 1000 ML IV [id number] SODIUM,PORCINE 4500 UNIT IV DIR (PRN)HEPARIN SODIUM,PORCINE 2000 UNIT IV ASDIR (PRN)EZETIMIBE 10 MG PO DAILYFOLIC ACID 3 MG PO DAILYHEPARIN SODIUM,PORCINE/D5W 28583 UNIT IV TI TRATE LABS GLU BED (03/11/22 18:27)GLUBED 234 H LACTIC ACID (03/11/22 18:20)LACTIC ACID 1.0 TROP-I HIGH SEN (03/11/22 18:00)TROP-I HIGH SENSITIVITY 2447 *H BASIC META BOLIC PANEL (03/11/22 18:00)SODIUM 132L LPOTASSIUM 3.3D L D LCHLORIDE 101CARBON DIOXIDE 24ANION GAP 10.3 DGLUCOSE 233 H HBLOOD UREA NITROGEN 22GLOMERULAR FILTRATION RATE 54 LC REATININE 1.1BUN/CREATININE RATIO 20.0CALCIUM 8.0 L PROTHR OMBIN TIME (03/11/22 18:00) PROTHROMBIN TIME PATIENT 10.7IN TERNATIONAL NORMAL RATIO 1.0 MAG (03/11/22 18:00)MAGNESIUM 1 .5 L PTT (03/11/22 18:00)THROMBOPLASTIN TIME PARTIAL 28.5 PHOS (03/11/22 18:00)PHOSPHOROUS 2.9 HGBA1C - GLYCOSY LATED HGB (03/11/22 18:00)GLYCOSYLATED HEMOGLOBIN (HA1C) 1 1.0 H GLU BED (03/11/22 17:44)GLUBED 262 H GLU BED ( 16:34)GLUBED 334 H GLU BED (03/11/22 14:57)GLUBE D 404 *H GLU BED (03/11/22 13:01)GLUBED 449 *H BASIC META BOLIC PANEL (03/11/22 12:59)SODIUM 125L LPOTASSIUM 5.3H HCH LORIDE 93L LCARBON DIOXIDE 15L LANION GAP 22.3 HGLUCOSE 477 *H *HBLOOD UREA NITROGEN 23GLOMERULAR FILTRATION RATE 45 LC REATININE 1.3BUN/CREATININE RATIO 17.7CALCIUM 8.2 L MAG (1 05/11/21 12:59)MAGNESIUM 1.7 L TROP-I HIGH SEN (03/11/22 12:59)TROP-I HIGH SENSITIVITY 1804 *H LIPID PROF ILE (CORONARY RISK) (03/11/22 12:59)TRIGLYCERIDES 17 4 HCHOLESTEROL 292 HCHOLESTEROL/HDL RATIO 5HDL CHO LESTEROL 64 HLIPOPROTEIN LDL 182 H UA RFLX MICR amp;CULT IF INDICATED (03/11/22 10:45)UA COLOR STRAWUA APPEARANCE LALA ROQUE GLUCOSE DIPSTICK 3+ NATHALIE BILIRUBIN DIPSTICK NEGATIVEUA KE TONE DIPSTICK 2+ NATHALIE SPECIFIC GRAVITY 1.020 UA BLOOD DIPSTICK 1+ NATHALIE PH DIPSTICK 5.0UA PROTEIN DIPSTICK NEGATI VEUA UROBILINOGEN DIPSTICK NEGATIVEUA NITRITE DIPSTIC K NEGATIVEUA LEUKOCYTE ESTERASE DIPSTICK NEGATIVEU A MICROSCOPIC NEEDED? YES NATHALIE WBC 0-2UA RBC 0-2UA BACTERIA NONE SEENUA SQUAMOUS CELLS RARE COVID 19 INH AG (03/11/22 10:23)COVID 19 INHOUSE AG NEGATIVE BNP (03/11/22 10:19)B-TYPE NATRIURETIC PEPTIDE 348 H CBC W/AUT O DIFF (03/11/22 10:19)WHITE BLOOD CELL 5.4RED BLOOD CE LL 3.11 LHEMOGLOBIN 9.5L LHEMATOCRIT 28.9L LMEAN CELL VO LUME 93MEAN CELL HGB 30.5MEAN CELL HGB CONCENTRATION 32.9RED CELL DISTRIBUTION WIDTH 14.5 HPLATELET COUNT 251MEAN PLATELET VOLUME 10.7NEUTROPHIL % 72.6IMMATURE GRANULOCYTE % 0.6LYMPHOCYTE % 17.6MONOCYTE % 8.4EOSINOPHIL % 0 .2BASOPHIL % 0.6NUCLEATED RBC % 0.0NEUTROPHIL # 3.89IMMATU RE GRANULOCYTE # 0.030LYMPHOCYTE # 0.94 LMONOCYTE # 0.45EOSINOPHIL # 0.01BASOPHIL # 0.03NUCLEATED RB C # 0.000 GLU BED (03/11/22 09:52)GLUBED 448 *H -- ATTESTA TION -- TIME SPENT ON PATIENT CARE: - Critical care: mary jo e spent apart from any procedure 32 minutes CARE ACTIVIT IES / CARE COORDINATION: - I have reviewed the history and repeated the ingram elements - I have seen and examined this patient - I have reviewed the progress in the clinical cou rse since the lastexamination - I have discussed the kaylae nt's condition with other members of the care team Si gned in PatientKeeper by Dheeraj Sanders MD on 03/11/22 at 20:13 at 2013ATTENTION EDITS and/or ADDENDA must be ma de in Patient Keeper for this note. Edits and ammen dments created in [facility] are not visible in Patien t Keeper or the legal medical record ([facility]). RPT #: [id number] OF [id number] for patient [id number]:57 2022-03-11 [id number] [facility] 17:22:00 [place] [facility]Med Order Sheet REPORT #: [id number] REPORT STATUS: Signed DATE: 03/11/22 TIME: 172 PATIENT : LIZZIE HINKLE UNIT #: [id number] #: [id number] ROOM #: NC.IC07 BED: A : 3 AGE: 71 SEX: F ATTEND: Erasmo Fay MD ADM DT: AUTHOR: Erasmo Fay MD ATTENTION EDITS and/or ADDENDA must be made i n Patient Keeper for this note. Edits and ammendments c reated in [facility] are not visible in Patient Keeper or the legal medical record ([facility]). Admission Medication Reconciliatio n -- CONTINUED / CHANGED HOME MEDICATIONS -- Home: As pirin Chewable Tab (Aspirin Chewable Tab) 81 MG PO TATIANA LYHosp: Existing: Aspirin Chewable Tab (Aspirin Chewable Tab) 81MG PO DAILY Home: Clopidogrel Tab (Plavix Tab) 75 M G PO DAILYHosp: Existing: Clopidogrel Tab (Plavix Tab ) 75MG PO DAILY Home: Dicyclomine Cap (Bentyl Cap) 10 MG P O TID PRN abdominal cramps/pain Hosp: Dicyclomine Cap (Dae tyl Cap) 10 MG PO TID PRN abdominal cramps/pain Home: Ezetim dave Tab (Zetia Tab) 10 MG PO DAILYHosp: Existing: Ezetim dave Tab (Zetia Tab) 10MG PO DAILY Home: Famotidine Tab ( Pepcid Tab) 20 MG PO [id number]: Famotidine Tab (Pepcid Tab) 20 MG PO Q12HR Home: Folbee 2.5 mg-25 mg-1 mg tablet (fol ic acid-vit B6-vit B12) 1 TAB PODAILYHosp: Folbee 2.5 mg-25 mg-1 mg tablet (folic acid-vit B6-vit B12) 1 TAB PODAILY Home: Insulin Lispro InJ (HumaLOG Inj) SUBQ AC HS (UNI TS)Hosp: Existing: Insulin Lispro InJ (HumaLOG Inj) 0 UNI TS SUBQ AC HS Home: Isosorbide Mononitrate ER Tab (Imdur Ta b) 30 MG PO DAILYHosp: Existing: Isosorbide Mononitrate ER T ab (Imdur Tab) 30MG PO DAILY Home: Lantus Solostar 100 uni t/mL (3 mL) subcutaneous insulin pen (insulinglargine) 18 UN ITS SUBQ QAM (Inject 18 units every morning.)Hosp: Existi ng: Insulin (Glargine) Inj (Lantus Inj) 20UNITS SUBQ QAM Jane e: Metoprolol Succinate XL Tab (Toprol XL Tab) 25 M G PO DAILYHosp: Existing: Metoprolol Succinate XL Tab (Toprol XL Tab) 25MG PO DAILY Home: Ranexa tablet,extended release (ranolazine) 1000 MG PO BIDHosp: Existing: Ranol azine ER Tab (Ranexa Tab) 1000MG PO Q12HR -- STOPPED HOME MEDICATIONS -- Home: metroNIDAZOLE Tab (Flagyl T ab) 500 MG PO Q8HR The following home medications have not yet been reconciled: DME - GLUCOSE LANCETS 1 EACH MISC QI D (Glucose Lancets of Choice)DME - GLUCOSE STRIPS 1 EACH OR SC QID (Glucose Strips of Choice)DME - INSULIN PEN NEED LES 1 EACH MISC ASDIR (Insulin Pen [place] of choice.)Insul in (Glargine) Inj (Lantus Inj) 18 UNITS SUBQ QAM :22 at 1722ATTENTION EDITS and/or ADDENDA must be ma de in Patient Keeper for this note. Edits and ammen dments created in [employer] are not visible in Patien t Keeper or the legal medical record (HPF). [facility] #: [id number] OF REPORT CLClinical [id number] Available for patient [id number] 2022-03-11 [id number] [facility] 17:18:[address] [address] PATIENT NAME: LIZZIE HINKLE ADMIT D ATE: 03/11/22ACCOUNT NO: [id number] ROOM NO: TN.IC0 7 AGE: 71 REPORT TYPE: eECHO CARDIOGRAM REPORT SEX: F ADMITTING PHYSICIAN:Erasmo spann MD ATTENDING PHYSICIAN:Erasmo Fay MD [id number] ECHO2 DDOP ECHO 2D COMPLETE W/CF DOP [facility] [address] [place] [address] Report o f EchocardiogramName: LIZZIE HINKLE Study D ate: 03/11/2022 05:18 PMMRN: [id number] Patient Location: [place].ICU [facility]07 AAccount Number: [id number]: 1950 Gender: FemaleAge: 71 yrs Left Ventricle: The le ventricle is normal in size. There is normal leftventricular wall thickness. Left ventricular systolic function is normal.Ejection Fraction = 60-65%. T he transmitral spectral Doppler flow pattern isnorm al for age. The left ventricular wall motion is normal. Righ t Ventricle: The right ventricle is normal size. T he right ventricularsystolic function is normal. Atria: T he left atrium is mildly dilated. Right atrial size is n ormal. Mitral Valve: The mitral valve leaflets appear t hickened, but open well. Thereis trace mitral regurgitatio n. Tricuspid Valve: The tricuspid valve is normal. RVSP23.5 mmHg. Rightventricular systolic pressure is norm al. There is trace tricuspidregurgitation. Aortic Valve: T he aortic valve is trileaflet. The aortic valve opens well . Nohemodynamically significant valvular aortic st enosis. No aortic regurgitationis present. Pulmonic Valve: The pulmonic valve is not well visualized. Trace pulmonicvalvular regurgitation. Great Vessels: T he aortic root is normal size. [facility] [id number] PATIENT NAME: LIZZIE HINKLE Pericardium/Pleural: There is no pericardial eff usion. MMode/2D Measurements CalculationsIVSd: 0.83 cm LVIDd: 4.2 cm LVIDs: 3.3 cm LVPWd: 0.78 cm FS: 21.9 % Ao root diam: 2.9 cmEDV(Teich): 77.5 ml Ao root area: 6.6 cm2ESV(T jessica): 42.8 mlEF(Teich): 44.7 % LVOT diam: 1.9 cm EDV(MOD-sp4 ): 76.1 mlLVOT area: 2.8 cm2 ESV(MOD-sp4): 56.1 ml EF(M OD-sp4): 26.3 % SV(MOD-sp4): 20.0 ml Doppler Measurements CalculationsMV V2 max: 81.1 cm/sec Ao V2 max: 120.4 cm/secMV max P.6 mmHg Ao max P.8 m mHgMV V2 mean: 48.3 cm/sec Ao V2 mean: 81.8 cm/secMV mean P.3 mmHg Ao mean P.0 mmHgMV V2 VTI: 16.3 cm Ao V 2 VTI: 21.2 cmMVA(VTI): 3.9 cm2 BRITTANIE(I,D): 3.0 cm2 BRITTANIE(V,D): 2.4 cm2 LV V1 max P.6 mmHg MR max joana: 444.5 cm/secLV V1 mean P.0 mmHg MR max P.0 mm HgLV V1 max: 106.9 cm/secLV V1 mean: 63.7 cm/secLV V1 VT I: 23.3 cm SV(LVOT): 64.1 ml PA V2 max: 108.3 cm/sec PA max P.7 mmHg PA V2 mean: 74.9 cm/s ec PA mean P.5 mmHg TR max joana: 154.5 cm/sec RAP systole: 10.0 mmHgTR max P.5 mmHgRVSP(TR): 23.5 mmHg Interpretation Summary1. Normal LV systolic func tion with estimated LVEF 60-65%. [facility] [place] [address] [facility] [place] [address] PATIENT NAME: LIZZIE HINKLE 2. N o significant valvular dysfunction.3. No pericardi al effusion.4. Normal PASP. Electronically read by:Bal urbina MD 03/12/2022 09:31 AMOrdering Physician: Bebo Oliva Physician: Winter Holguin By: Ayesha Maldonado at 0932 [facility] [address] [facility] [address] PATIENT NAME: LIZZIE HINKLE :32: [id number] for patient [id number]:32:48 2022-03-11 [id number]:52:00 [facility] 15:52:00 [facility]Family Med. History PhysicalREPORT #: [id number] REPORT STATUS: Signed DATE: 03/11/22 T EDUARDO: 1552 PATIENT: LIZZIE HINKLE UNIT #: [id number] CCOUNT #: [id number] ROOM #: NC.IC07 BED: A : 3 AGE: 71 SEX: F ATTEND: Erasmo Fay MD ADM DT: AUTHOR: Erasmo Fay MD ATTENTION EDITS and/or ADDENDA must be made i Patient Keeper for this note. Edits and ammendments c reated in [facility] are not visible in Patient Keeper or the legal medical record (HPF). -- HISTORY -- ADMISSION DATE:03-11 PRIMARY CARE PROVIDER:ERASMO FAY MD IEF COMPLAINT:chest pain HPI:Patient with hx DM with DKA developed chest pain this morning she alsofelt v taras weak, some SOB , nofever, she presented to the ER and was found to have DKA, also elevatted troponin, she has kn own severe CAD ,she is feeling somewhat better now, still w eak, getting an ECHO at thistime PAST MEDICAL HISTORY :DM, HTN, CAD, diabetic retinopathy,, blind in R eye, diab etic nephropathy,hyperlipidemia, CKD hospitalized for DKA in mar 2019 PAST SURGICAL HISTORY:multiple retinal surg eries, hysterectomy -SOCIAL HISTORY- -TOBACCO USE- DETAILS/COMMENTS:former -VAPING/INHALED SOLVENTS - DETAILS/COMMENTS:none -ALCOHOL USE- DETAILS/COMM ENTS:none -DRUG USE- DETAILS/COMMENTS:none MARITAL STATUS: -- ALLERGIES/HOME MEDS -- ALLERGIES:codeine (Unknow n - Allergy)lisinopril (Severe - Allergy) HOME MEDICATIONS:Aspirin Chewable Tab (Aspirin Chewab le Tab) 81 MG PO DAILYClopidogrel Tab (Plavix Tab) 75 MG P O DAILYDicyclomine Cap (Bentyl Cap) 10 MG PO TIDDM E - GLUCOSE LANCETS 1 EACH MISC QIDDME - GLUCOSE STRIPS 1 EA MIS QIDDME - INSULIN PEN NEEDLES 1 EACH MISC ASDIREz etimibe Tab (Zetia Tab) 10 MG PO DAILYFamotidine Tab (Pepcid Tab) 20 MG PO [id number] 2.5 mg-25 mg-1 mg tablet (folic a malinda-vit B6-vit B12) 1 TAB PO DAILYInsulin (Glargine) Inj (Lantus Inj) 18 UNITS SUBQ QAMInsulin Lispro InJ (HumaLO G Inj) SUBQ AC HSIsosorbide Mononitrate ER Tab (Imdur Tab) 3 0 MG PO DAILYLantus Solostar 100 unit/mL (3 mL) subcutan eous insulin pen (insulin glargine)18 UNITS SUBQ QAMM etoprolol Succinate XL Tab (Toprol XL Tab) 25 MG PO DAILYmetroNIDAZOLE Tab (Flagyl Tab) 500 MG PO Q8 HRRanexa tablet,extended release (ranolazine) 1000 MG PO BID -- SUBJECTIVE -- -REVIEW OF SYSTEMS- GENERAL: Negat mirtha for fever, chills, unexplained weight loss,EARS/NOSE /THROAT: Negative for sore throat. No otalgia. No rhinorrhea.RESPIRATORY: Negative for cough, ches t congestion, wheezing,CARDIOVASCULAR: Negative fo r, palpitations, n, orthopnea, edema and dizzinessGASTROINTESTINAL: Negative for abdomina l pain, nausea, vomiting, diarrhea,GENITOURINARY: Negati ve for dysuria, frequency, or urgency. No gross hematur ia.SKIN: Negative for rashes. No pruritus.NEUROLOGICAL: N egative for headache, numbness, tingling, and weakness -- OB JECTIVE -- -EXAM- GENERAL: Well developed, well nourished, in no apparent distress.NECK: No masses, no thyromegal y, no abnormal cervical nodes, trachea midline. LUNGS: Respirations unlabored, clear to auscultation bi laterally, no wheezing, no ronchi, no ralesHEART: Regular r ate and rhythm, normal S1, S2, no murmurs, no rubs, no g allops, no clicks.ABDOMEN: + BS SOft non tender no HSM no massEXTREMITIES: No clubbing, cyanosis or edemaNEUROLOGICAL: Alert and oriented to person, place, no facial asymmetry, normal speech. Moves all extre mities symmetrically, normal tone,PULSES: Normal caroti d pulses without bruits. Normal pulses bilaterally at rad ial, dorsalis pedis and posterior tibial locations.SK IN: No pallor, no jaundice, no rash, normal turgorLYMPH NODES: None palpable cervical, axillary, supraclavicula r or inguinal locationsPSYCHIATRIC: Mood euthymic. Af fect congruent, Normal eye contact, normal speech. th ought process and thought content intact. -- DATA -- L ABS GLU BED (03/11/22 14:57)GLUBED 404 *H GLU BED (03/11/22 13:01)GLUBED 449 *H MAG (03/11/22 12:59)MAGNESIU M 1.7 L TROP-I HIGH SEN (03/11/22 12:59)TROP-I HIGH SENS ITIVITY 1804 *H LIPID PROFILE (CORONARY RISK) (03/11/22 12:59)TRIGLYCERIDES 174 HCHOLESTEROL 292 HCHOLE STEROL/HDL RATIO 5HDL CHOLESTEROL 64 HLIPOPROTEIN LDL 182 H BASIC METABOLIC PANEL (03/11/22 12:59)SODIUM 125L LPOT ASSIUM 5.3H HCHLORIDE 93L LCARBON DIOXIDE 15L LANION GAP 22. 3 HGLUCOSE 477*H *HBLOOD UREA NITROGEN 23GLOMERULAR FILTRAT ION RATE 45 LCREATININE 1.3BUN/CREATININE RATIO 17.7CALCIUM 8.2 L UA RFLX MICR amp;CULT IF INDICATED (03/11/22 10:45) UA COLOR STRAWUA APPEARANCE CLEARUA GLUCOSE DIPSTICK 3+ H UA BILIRUBIN DIPSTICK NEGATIVE UA KETONE DIPSTICK 2+ NATHALIE SPECIFIC GRAVITY 1.020UA BLOOD DIPSTICK 1+ NATHALIE P H DIPSTICK 5.0UA PROTEIN DIPSTICK NEGATIVEUA UROBILINOGEN D IPSTICK NEGATIVEUA NITRITE DIPSTICK NEGATIVEUA LEUKOCYTE ESTERASE DIPSTICK NEGATIVEUA MICROSCOPIC NEEDED? YES NATHALIE WBC 0-2UA RBC 0-2UA BACTERIA NONE SEENUA SQUAMOUS CELLS R ARE COVID 19 INH AG (03/11/22 10:23)COVID 19 INHOUSE AG NE GATIVE BNP (03/11/22 10:19)B-TYPE NATRIURETIC PEPTIDE 348 H CBC W/AUTO DIFF (03/11/22 10:19)WHITE BLOOD CELL 5.4RED BLO OD CELL 3.11 LHEMOGLOBIN 9.5L LHEMATOCRIT 28.9L LMEAN C ELL VOLUME 93MEAN CELL HGB 30.5MEAN CELL HGB CONCENTRATION 32.9RED CELL DISTRIBUTION WIDTH 14.5 HPLATELET COUNT 251 MEAN PLATELET VOLUME 10.7NEUTROPHIL % 72.6IMMATURE GR ANULOCYTE % 0.6LYMPHOCYTE % 17.6MONOCYTE % 8.4EOSINOPHIL % 0.2BASOPHIL % 0.6NUCLEATED RBC % 0.0NEUTROPHIL # 3.89IMMATUR E GRANULOCYTE # 0.030LYMPHOCYTE # 0.94 LMONOCYTE # 0.45EOSINOPHIL # 0.01BASOPHIL # 0.03NUCLEATED RB C # 0.000 GLU BED (03/11/22 09:52)GLUBED 448 *H -- ASSESSM ENT AND PLAN -- PROBLEMS: 1: Type 1 diabetes mellitus wi th ketoacidosis, uncontrolledA/P:endocrine consulte d improving already with insulin 2: CAD (coronary artery dis ease) A/P: with chest pain and elevated troponin, heparin , cardiology consulted, ECHO 3: Hypertension 4: Hyperlipidemi a 5: Visual impairment 6: Diabetic retinopathy 7: Peripheral arterial disease 8: HyponatremiaA/P: likely pseudohyponat remia 9: HyperkalemiaA/P: monitor 10: Elevated troponinA/ P: cardiology consulted, Signed in PatientKeeper by ERASMO FAY MD on 03/11/22 at 18:10 at 1810ATTENTION EDITS and/or ADDENDA must be ma de in Patient Keeper for this note. Edits and ammen dments created in [facility] are not visible in Patien t Keeper or the legal medical record (HPF). [facility] #: [id number] OF REPORT HPHistory and physical essimxitafy0530-15-98W80:52:[id number] lable for patient [id number] 8:11:16 2022-03-11 [id number]:35:00 [facility] 15:35:00 [facility] ([facility])Cardiology Consultation REPORT #: [id number] REPORT STATUS: Signed DATE: 03/11/22 TIME: 1535 PATIENT: LIZZIE HINKLE UNIT #: [id number] #: [id number] ROOM #: [place] [address] BED: A : 3 AGE: 71 SEX: F ATTEND: Erasmo Fay MD ADM DT: AUTHOR: Andreina Oliva MD ATTENTION EDITS and/or ADDENDA must be made i n Patient Keeper for this note. Edits and ammendments c reated in [facility] are not visible in Patient Keeper or the legal medical record (HPF). -- ASSESSMENT AND PLAN -- PROBLEMS : 1: NSTEMI (non-ST elevated myocardial infarction)A/P: - EC G - SR, rate 97- Tn 696 --> 1804- she has uncontrolle d DM thus can be asymptomatic for that reason- rec empiric treatment for NSTEMI with heparin gtt for 48 hours until 1 05/13/224:00 pm- TTE 08/20 - EF 55-60%, G1DD, m MR, mM AV scl, no PC eff- recheck echo to r/o acute change given recurrent NSTEMI- driven by secondary phenomenon (DKA/ADOLFO); denies any CP or SOB- c/w ASA 81 mg QD, plavix 75 mg QD, toprol 2 5 mg QD, imdur 30, ranexa 1000 BID- not on statin due to severe myalgias, on zetia- Given her NSTEMI, I discusse d the options of CABG vs. PCI vs. medical therapywith the patient. I explained to her that she is high ris k for procedure andsurgery related complications given her inconsistent medication intake anduncontrolled D M. I advised her that risks of CABG can include a serioussternotomy wound infection and poor wound healing in the setting of DM. She isalso not an ideal dyan date for PCI given she cannot reliably take dualantiplate let therapy and has uncontrolled DM which would put her at h igh riskfor in-stent restenosis/thrombosis which would be fa terra. Given that she isasymptomatic, stable, would treat wit h medical therapy for NSTEMI with DAPT,therapeutic AC- hx of noncompliance with medications 2: CAD (coronary artery disease)A/P: - LHC 10/19: RCA mid 100% with lt-to -rt collater ,CX mid 60-70%, MOM prox8-0%, LAD prox and mid two consecutive 60-70% stenoses with near-significan tFFR of 0.81, D2 ostial 70% then prox 80% sten, edp 3 -- > eval for 4v acb tolad, d2, mom, and distal RCA --> Dr Christopher diaz need for ACB yet he wishes towait and do it on O P basis once a1c is lower and once compliance is documen sarah beth- DKA/NSTEMI adm 04/20 + 08/20 + 03/22; family opte d for medical management- admitted for DKA 03/22- asp, plavix, lipitor, toprol, imdur, ranexa- TTE 08/20 - EF 55 -60%, G1DD, m MR, mM AV scl, no PC eff- recheck echo to r/o acute change given recurrent NSTEMI 3: DKA (diabetic ketoacidoses)A/P: - A1C >14.0% 08/20; check A1C- strict glycemic control- mxm per endo/primary - complia nce encouraged- monitor in ICU 4: acute renal failur eA/P: ac d/t dehydration/DKAmonitor BMPavoid nephrotoxins baseline Cr 0.9 --> 1.4 03/11/22 5: PADA/P: -80% sten ost ial rt SFA on lted groin angio with c 10/19-laus 10/19: Kelsey nge from triphasic to monophasic waveforms in the right femoralartery and at the left lower leg below th e popliteal artery suggesting stenosis.-rec RO and poss well logging captain mud analysis in the future once compliance confirmed and improvement [id number], plav, better BS ctrl-avoid low BP 6: Statin into leranceA/P: - severe myalgias on lipitor- on zetia 7: Noncom plianceA/P: - encouraged compliance with meds -- HISTORY -- HPI:71-year-old female here with EMS from home f or altered mental status, highblood sugar reading at home a nd episode of chest pain. Currently, patientdenies any ches t pain. Patient just feels unwell, states current sympto ms feelsimilar to DKA in the past. Patient states t hat she is diabetic and reportscompliance with her insulin. Per EMS, patient states checked her bloodsugar at home was greater than 500 and gave 9 units of ins ulin. Howeverdid not recheck the blood sugar. Per EMS, their blood sugar check read "high".Patient received I V fluids by EMS as well. No other pretreatment prior toarriv al. She reports her medications are given to her by her and he hadmisplaced them for 3 days. Denies any CP c urrently. PAST MEDICAL HISTORY:CAD/OR, blindness, HLD, DMI c/b multiple DKA admissions, statin intolerance, PAD -- ALLERGIES/HOME MEDS -- ALLERGIES:codeine (Unknow n - Allergy)lisinopril (Severe - Allergy) HOME MEDICATIONS:Aspirin Chewable Tab (Aspirin Chewab le Tab) 81 MG PO DAILYClopidogrel Tab (Plavix Tab) 75 MG PO DAILYDicyclomine Cap (Bentyl Cap) 10 MG PO TIDDM E - GLUCOSE LANCETS 1 EACH MISC QIDDME - GLUCOSE STRIPS 1 EA MIS QIDDME - INSULIN PEN NEEDLES 1 EACH MISC ASDIREz etimibe Tab (Zetia Tab) 10 MG PO DAILYFamotidine Tab (Pepcid Tab) 20 MG PO [id number] 2.5 mg-25 mg-1 mg tablet (folic a malinda-vit B6-vit B12) 1 TAB PO DAILYInsulin (Glargine) Inj (Lantus Inj) 18 UNITS SUBQ QAMInsulin Lispro InJ (HumaLO G Inj) SUBQ AC HS Isosorbide Mononitrate ER Tab (Imdur Tab) 30 MG PO DAILYLantus Solostar 100 unit/mL (3 mL) subcutan eous insulin pen (insulin glargine)18 UNITS SUBQ QAMM etoprolol Succinate XL Tab (Toprol XL Tab) 25 MG PO DAILYmetroNIDAZOLE Tab (Flagyl Tab) 500 MG PO Q8 HRRanexa tablet,extended release (ranolazine) 1000 MG PO BID -- SUBJECTIVE -- -REVIEW OF SYSTEMS- GENERAL: Negat mirtha for fever, malaise, fatigue.EYES: Negative for blurr y vision. No diplopia.EARS/NOSE/THROAT: Negative for sore throat. No otalgia. No rhinorrhea.BREAST: Negative for aaron ge in shape, swelling, masses, nipple discharge, pain, skin changes.RESPIRATORY: Negative for dyspnea or whe tanya. No cough.CARDIOVASCULAR: Negative for chest pain or palpitations. No extremity swelling.GASTROINTEST INAL: Negative for abdominal pain or nausea. No emesis . No diarrhea.GENITOURINARY: Negative for dysuria, fr equency, or urgency. No gross hematuria.MUSCULOSKELETAL: Neg ative for joint stiffness, pain, or arthralgias.SKIN: Nega tive for rashes. No pruritus.NEUROLOGICAL: Negative for h eadache. No vertigo. Denies paresthesias.PSYCHIATRIC: Negati ve for specific complaints.ENDOCRINE: Negative for cold intolerance, heat intolerance, polyphagia, polyd ipsia, polyuria, weight change, fatigue.HEMATALOGIC / LYMPHORETICULAR: Negative for excessive bleeding , unusual masses.ALLERGIC / IMMUNOLOGIC: Negative for heat /cold intolerance, polydipsia, or polyuria. -- OBJECTI VE -- -EXAM- OTHER: General: Well developed, well nou rished, in no apparent distress. Head: Normocephalic, atr aumatic. Eyes: PERRL, EOM intact, conjunctiva and sclera clear Chest: Grossly normal appearance. Lungs: Bimal ar bilaterally with normal respiratory effort. Hea rt: Regular rate and rhythm, normal S1, S2, no murmu rs, no rubs, no gallops Abdomen: Soft, non-tender, no organomegaly, no masses noted Extremities: No clubbing, no cyanosis, no edema. Neurological: No focal deficits, normal muscle strength, normal tone. Pulses: Pulses normal in all extremities. Skin: Intact withou t significant lesions, or rashes -- DATA -- MEDIC ATIONS GLUCAGON 1 MG IV ASDIRMUPIROCIN 1 APPLIC NASAL B IDDEXTROSE 5%-NS 1000 ML IV [id number] REGULAR, HUMAN with /in SODIUM CHLORIDE 100 mL BAG 100 UNIT IV [id number] 50% -WATER 50 ML IV ASDIRINSULIN GLARGINE 20 UNITS SUBQ QAMSOD IUM CHLORIDE 0.9% 1000 ML IV [id number] LISPRO 0 UN ITS SUBQ AC HS LABS GLU BED (03/11/22 14:57)GLUBED 404 *H GL U BED (03/11/22 13:01)GLUBED 449 *H MAG (03/11/22 12:5 9)MAGNESIUM 1.7 L TROP-I HIGH SEN (03/11/22 12:59)TROP-I HI GH SENSITIVITY 1804 *H LIPID PROFILE (CORONARY RISK ) (03/11/22 12:59)TRIGLYCERIDES 174 HCHOLESTEROL 292 HCHOLE STEROL/HDL RATIO 5HDL CHOLESTEROL 64 HLIPOPROTEIN LDL 182 H BASIC METABOLIC PANEL (03/11/22 12:59)SODIUM 125L LPO TASSIUM 5.3H HCHLORIDE 93L LCARBON DIOXIDE 15L LANION GA P 22.3 HGLUCOSE 477*H *HBLOOD UREA NITROGEN 23GLOMERULA R FILTRATION RATE 45 LCREATININE 1.3BUN/CREATININE RATIO 17.7CALCIUM 8.2 L UA RFLX MICR amp;CULT IF INDIC ATED (03/11/22 10:45)UA COLOR STRAWUA APPEARANCE LALA ROQUE GLUCOSE DIPSTICK 3+ NATHALIE BILIRUBIN DIPSTICK NEGATIVEUA KE TONE DIPSTICK 2+ NATHALIE SPECIFIC GRAVITY 1.020UA BLOOD DIPSTICK 1+ NATHALIE PH DIPSTICK 5.0UA PROTEIN DIPSTICK NEGATIVEU A UROBILINOGEN DIPSTICK NEGATIVEUA NITRITE DIPSTIC K NEGATIVEUA LEUKOCYTE ESTERASE DIPSTICK NEGATIVEU A MICROSCOPIC NEEDED? YES NATHALIE WBC 0-2UA RBC 0-2UA BACTERIA NONE SEENUA SQUAMOUS CELLS RARE COVID 19 INH AG (03/11/22 10:23)COVID 19 INHOUSE AG NEGATIVE BNP (03/11/22 10:19)B-TYPE NATRIURETIC PEPTIDE 348 H CBC W/AUT O DIFF (03/11/22 10:19)WHITE BLOOD CELL 5.4RED BLOOD CE LL 3.11 LHEMOGLOBIN 9.5L LHEMATOCRIT 28.9L LMEAN CELL VO LUME 93 MEAN CELL HGB 30.5MEAN CELL HGB CONCENTRATION 32 .9RED CELL DISTRIBUTION WIDTH 14.5 HPLATELET COUNT 251MEAN PLATELET VOLUME 10.7NEUTROPHIL % 72.6IMMATURE GRANULOCYTE % 0.6LYMPHOCYTE % 17.6MONOCYTE % 8.4EOSINOPHIL % 0 .2BASOPHIL % 0.6NUCLEATED RBC % 0.0NEUTROPHIL # 3.89IMMATU RE GRANULOCYTE # 0.030LYMPHOCYTE # 0.94 LMONOCYTE # 0.45EOSINOPHIL # 0.01BASOPHIL # 0.03NUCLEATED RB C # 0.000 GLU BED (03/11/22 09:52)GLUBED 448 *H Signed in PatientKeeper by Andreina Oliva MD on 03/11/22 at 16:37 at 1637ATTENTION EDITS and/or ADDENDA must be ma de in Patient Keeper for this note. Edits and ammen dments created in [facility] are not visible in Patien t Keeper or the legal medical record (HPF). [facility] #: [id number] OF [id number]:35:00NC.PK- [id number] for patient [id number]:38:42 2022-03-11 [id number]:11:00 [facility] 14:11:00 [facility])Endocrinology Consultation REPORT #: [id number] REPORT STATUS: Signed DATE: 03/11/22 T EDUARDO: 1411 PATIENT: LIZZIE HINKLE UNIT #: [id number] CCOUNT #: [id number] ROOM #: NC.IC07 BED: A : AGE: 71 SEX: F ATTEND: Erasmo Fay MD ADM DT: AUTHOR: Nini Doan MD ATTENTION EDITS and/or ADDENDA must be made i n Patient Keeper for this note. Edits and ammendments c reated in [facility] are not visible in Patient Keeper o r the legal medical record (HPF). -- ASSESSMENT AND PLAN -- PROBLEMS : 1: Type 1 diabetes mellitus with ketoacidosis without coma A/P: UNCONTROLLED (HYPERGLYCEMIA) TYPE I DM IN DKA. O BSERVE ON ICU DKA, INSULINDRIP PROTOCOL THEN TRANSITION TO SQ BASAL/BOLUS INSULIN. DISCUSSED WITH ICUNURSE. MIRTA GARCIA YOU. WILL FOLLOW WITH YOU. -- HISTORY -- CONSULT REQU JOANN BY:ERASMO FAY MD REASON FOR CONSULT:DK A CHIEF COMPLAINT:CHEST PAIN HPI:PATIENT ADMITTED TO ICU WITH DKA AND CHEST PAIN (ACUTE OR). ICU DKA, INSULINDRIP PROTOCOL INITIATED. PAST MEDICAL HISTORY:DM, HTN, CAD, di abetic retinopathy,, blind in R eye, diabetic nephropathy,hyperlipidemia, CKD hospitalized for DKA in mar 2019 PAST SURGICAL HISTORY:multiple retinal surg eries, hysterectomy -SOCIAL HISTORY- -TOBACCO USE- DETAILS/COMMENTS:former -VAPING/INHALED SOLVENTS - DETAILS/COMMENTS:none -ALCOHOL USE- DETAILS/COMM ENTS:none -DRUG USE- DETAILS/COMMENTS:none MARITAL STATUS: -- ALLERGIES/HOME MEDS -- ALLERGIES:codeine (Unknow n - Allergy)lisinopril (Severe - Allergy) HOME MEDICATIONS:Aspirin Chewable Tab (Aspirin Chewab le Tab) 81 MG PO DAILYClopidogrel Tab (Plavix Tab) 75 MG PO DAILYDicyclomine Cap (Bentyl Cap) 10 MG PO TIDDM E - GLUCOSE LANCETS 1 EACH MISC QIDDME - GLUCOSE STRIPS 1 EA CH MISC QIDDME - INSULIN PEN NEEDLES 1 EACH MISC ASDIREz etimibe Tab (Zetia Tab) 10 MG PO DAILYFamotidine Tab (Pepcid Tab) 20 MG PO [id number] 2.5 mg-25 mg-1 mg tablet (folic a malinda-vit B6-vit B12) 1 TAB PO DAILYInsulin (Glargine) Inj (Lantus Inj) 18 UNITS SUBQ QAMInsulin Lispro InJ (HumaLO G Inj) SUBQ AC HSIsosorbide Mononitrate ER Tab (Imdur Tab) 3 0 MG PO DAILYLantus Solostar 100 unit/mL (3 mL) subcutan eous insulin pen (insulin glargine)18 UNITS SUBQ QAMM etoprolol Succinate XL Tab (Toprol XL Tab) 25 MG PO DAILYmetroNIDAZOLE Tab (Flagyl Tab) 500 MG PO Q8 HRRanexa tablet,extended release (ranolazine) 1000 MG PO BID -- SUBJECTIVE -- -REVIEW OF SYSTEMS- GENERAL: Negat mirtha for feverRESPIRATORY: Negative for dyspneaCARDIOVAS CULAR: Negative for palpitations.GASTROINTESTINAL: Nega tive for abdominal pain or nauseaENDOCRINE: Negative for polyphagia, polydipsia, polyuria -- OBJECTIVE -- -EXAM- GENE RAL: Well developed, well nourished, in no apparent distre ss, THINHEAD: Normocephalic, atraumatic.EYES: LEGALL Y BLINDNECK: trachea midline.CHEST: Grossly normal appearance.LUNGS: NORMAL CHEST WALL MOVEMENTHEAR T: NO TACHYCARDIA ABDOMEN: NON-DISTENDEDNEUROLOGICAL: NORMAL SPEECHPSYCHIATRIC: Alert and oriented to time, p erson, place. -- DATA -- MEDICATIONS INSULIN GLARGINE 2 0 UNITS SUBQ QAMSODIUM CHLORIDE 0.9% 1000 ML IV [id number] ROCIN 1 APPLIC NASAL BIDDEXTROSE 5%-NS 1000 ML IV X1EDIN SULIN REGULAR, HUMAN with/in SODIUM CHLORIDE 100 mL BA G 100 UNIT IV [id number] 50%-WATER IV ASDIR (PRN)INSULIN GLARGINE 24 UNITS SUBQ ONCE LABS GLU BED (03/11/22 13:01)GLU BED 449 *H UA RFLX MICR amp;CULT IF INDICATED (03/11/22 10: 45)UA COLOR STRAWUA APPEARANCE CLEARUA GLUCOSE DIPSTICK 3+ NATHALIE BILIRUBIN DIPSTICK NEGATIVEUA KETONE DIPSTICK 2+ NATHALIE SPECIFIC GRAVITY 1.020UA BLOOD DIPSTICK 1+ NATHALIE P H DIPSTICK 5.0UA PROTEIN DIPSTICK NEGATIVEUA UROBILINOGEN D IPSTICK NEGATIVEUA NITRITE DIPSTICK NEGATIVEUA LEUKOCYTE ESTERASE DIPSTICK NEGATIVEUA MICROSCOPIC NEEDED? YES NATHALIE WBC 0-2UA RBC 0-2UA BACTERIA NONE SEENUA SQUAMOUS CELLS RA RE COVID 19 INH AG (03/11/22 10:23)COVID 19 INHOUSE AG NEGAT MIRTHA BNP (03/11/22 10:19)B-TYPE NATRIURETIC PEPTIDE 348 H CBC W/AUTO DIFF (03/11/22 10:19)WHITE BLOOD CELL 5.4RED BLO OD CELL 3.11 LHEMOGLOBIN 9.5L LHEMATOCRIT 28.9L LMEAN CE LL VOLUME 93MEAN CELL HGB 30.5MEAN CELL HGB CONCENTRATION 32.9RED CELL DISTRIBUTION WIDTH 14.5 HPLATELET COUNT 251 MEAN PLATELET VOLUME 10.7NEUTROPHIL % 72.6IMMATURE GR ANULOCYTE % 0.6LYMPHOCYTE % 17.6 MONOCYTE % 8.4EOSINOPHIL % 0.2BASOPHIL % 0.6NUCLEATED RBC % 0.0NEUTROPHIL # 3.89IMMATURE GRANULOCYTE # 0.030LYMPHOCYTE # 0.9 4 LMONOCYTE # 0.45EOSINOPHIL # 0.01BASOPHIL # 0.03NUCLEATED RBC # 0.000 GLU BED (03/11/22 09:52)GLUBED 448 *H -- A TTESTATION -- TIME SPENT ON PATIENT CARE: - Direct 50 minut es - > 50% of time spent on Counseling/Care Coordination CA RE ACTIVITIES / CARE COORDINATION: - I have reviewe d the history and repeated the ingram elements - I have s een and examined this patient - I have discussed the pat ient's condition with other members of the care team AD DITIONAL DETAIL:I HAVE SPENT >50 MINUTES IN THE EVALATION AND TREATMENT OF THIS PATIENT. Signed in [facility] er by Nini Doan MD on 03/12/22 at 09:58 at 0958ATTENTION EDITS and/or ADDENDA must be ma de in Patient Keeper for this note. Edits and ammen dments created in [facility] are not visible [facility] or the legal medical record (HPF). [facility] #: [id number] OF [id number]:11:00NC.PK- [id number] for patient [id number]:58:49 2022-03-11 [id number] [facility] 10:34:00 [place] [address] PATIENT NAME: LIZZIE HINKLE ADMIT DA TE: 03/11/22ACCOUNT NO: [id number] ROOM NO: [facility]22 05 AGE: 71 REPORT TYPE: eELECTROCARDIOGRAM SEX: F ADMITTING PHYSICIAN:Fadumo Fay MD ATTENDING PHYSICIAN:Erasmo spann MD Order:[id number] Reason : Test Date/Time Stamp:MonMar 11 2022 10:34:27Blood Pressure : / mmH GVent. Rate : 097 BPM Atrial Rate : 097 BPM P-R Int : 120 ms QRS Dur : 080 ms QT Int : 379 ms P-R-T Axes : 051 049 049 degrees QTc Int : 482 ms Sinus rhythm Confirmed by ALEJA GRIGSBY, ROBERT Owens ([id number]) on 03/13/2022 1:13:15 PM Referred By: lf Referred Confirmed by:ROBERT BERNAL MD Electronically Sig rudi by Robert Bernal MD on 03/13/22 at [address] [address] PATIENT NAME: LIZZIE HINKLE .[id number] 16AVAvailab for patient [id number]:2 3:21 2022-03-11 [id number]:32:00 [facility] 10:32:00 [facility]EMERGENCY PROVIDER REPORTREPORT#:[id number] REPORT STATUS: SignedDAT E:03/11/22 TIME: 1032 PATIENT: LIZZIE HINKLE UNIT #: [id number]#: [id number] [facility]AGE: 71 SEX: F PCP PHYS: Erasmo Fay MDSERVICE AUTHOR: Aj Alonso DO * ALL edits or amendments must be made on the electronic/comput er document * HPI-General Illness GeneralInitial Greet Date/ Time 03/11/22 0939 PresentationChief Complaint ALTERE D MENTAL STATUS, EPISODE OF CHEST PAIN, HIGH BLOOD SUGAR READING Free Text HPI NotesFree Text HPI [id number] d female here with EMS from home for altered mental statu s, high bloodsugar reading at home and episode of chest pain. Currently, patient denies any chest pain. Patien t just feels unwell, states current symptoms feel simil ar to DKA in the past. Patient states that she is diabetic and reports compliance with her insulin. Per EMS, angel luis aguilar states checked her blood sugar at home w as greater than 500 and gave 9 units of insulin. Dieter fitzgerald did not recheck the blood sugar. Per EMS, their bloo d sugar check read "high". Patientreceived IV fluids by EMS as well. No other pretreatment prior to arrival. Angel Luis aguilar has no other complaints at this time however, she is a very poor historian. History is limited. Review of Sy stems ROS StatementsAll systems rev neg except as marked.C omplete sys rev neg except as marked. Past Medical History - AdultStated Complaint HYPERGLYCEMICAllergiesCode d Allergies:lisinopril (Severe, ANGIOEDEMA 2)codeine (DROWSINESS/very sleepy 02/20/22) Home MedicationsDiscontinued ScriptsInsulin Glargine (Lantus Solostar) 18 UNITS SUBQ QAM Insulin Glargine (La ntus Solostar) 18 UNITS SUBQ QAM #2 SYR Prov: 2 DC: 03/14/22 1227 Reported MedicationsMetoprolol Suc c Xl (Toprol Xl) 25 MG PO DAILY Ezetimibe (Zetia) 10 MG PO DAILY Ranolazine Er (Ranexa) 1,000 MG PO BID Isosorbid e Mononitrate Sr (Imdur) 30 MG PO DAILY [DME - INS ULIN PEN NE] 1 EACH MISC ASDIR [DME - GLUCOSE STRIPS] 1 E ACH MISC QID [DME - GLUCOSE LANCET] 1 EACH MISC QID Dicyc lomine (Bentyl) 10 MG PO TID PRN ABDOMINAL CRAMPS/PAIN Metronidazole (Flagyl) 500 MG PO Q8HR Aspirin 81 MG PO DAILY Clopidogrel Bisulfate (Plavix) 75 MG PO DA JEROME Cyanocobalamin/Fa/Pyridoxine (Folbee) 1 TAB PO D AILY Insulin Lispro (Humalog) Famotidine (Pepcid) 20 MG PO Q12HR Insulin Glargine (Lantus) 18 UNITS SUBQ QAM Damian tional Medical HistoryHistory of diabetes on insulinAdd itional Social HistoryLives with spouse Physical Exam Vi terra SignsReview of Vital Signs Reviewed Physical ExamGeneral/Const General/Const Awake, Alert, No acute distress, Not toxic appearingMS Head Head Atraum atic, NormocephalicEyes Eyes CHRONICALLY BLIND, PUPILS NOT REACTIVE TO LIGHTEars/Nose/Throat Ears/Nose/Thro at Airway patent, Pharynx NLMS Neck Neck Supple, Full rang e of motionResp/Chest Respiratory/Chest Breath sounds NL, Breath sounds = bilatCardiovascular Cardiovascular Hear t rate NL, Regular rhythmAbdomen/GI Abdomen/GI Soft, Non-te nder, No distentionMS Upper Extrem Upper Extremity/MS Ins pection NLMS Lower Extrem Lower Ext/Pelvis/MS Inspection NL, No swelling, Non-tenderSkin Skin Warm, DryNeurologi c Neurologic gcs 15, AWAKE, ALERT, ANSWERS QUESTIO NS APPROPRIATELY Interpretation Diagnostics Lab Res ults InterpretationResultsLaboratory Tests 03/11/22 1019:[Embedded Image Not Available] 03/11/22 125 9:[Embedded Image Not Available]Laboratory Tests: 03/11 03/01 1 03/11 0952 1019 1019 Chemistry Sodium (135 - 145 mmol/ L) 126 L Potassium (3.5 - 5.1 mmol/L) 5.6 H Chloride (98 - 107 mmol/L) 94 L Carbon Dioxide (21 - 32 mmol/L) 18 L Anion Gap (2.0 - 16.0) 19.6 H BUN (4 - 23 mg/dL) 26 H Cre atinine (0.6 - 1.5 mg/dL) 1.4 Glomerular Filtr Rate (>60 ml/min) 41 L BUN/Creatinine Ratio (12.0 - 20.0) 18.6 Gluco se (65 - 99 mg/dL) 479 *H POC Glucose (70 - 105 mg/dL) 448 * H Calcium (8.5 - 10.1 mg/dL) 8.7 Total Bilirubin (0.2 - 1 .2 mg/dL) 0.7 AST (15 - 37 U/L) 39 H ALT (6 - 50 U/L) 19 Total Alk Phosphatase (45 - 117 U/L) 90 Troponin I High Se ns (0 - 53 pg/mL) 696 *H B-Natriuretic Peptide (0 - 100 pg/ mL) 348 H Total Protein (6.4 - 8.2 g/dL) 7.8 Albumin (3.4 - 5.0 g/dL) 2.9 L Lipase (73 - 393 U/L) 171 Hematology WBC ( 4.5 - 11.0 10 3/uL) 5.4 RBC (3.50 - 5.50 10 6/uL) 3.11 L H gb (12.0 - 16.0 g/dL) 9.5 L Hct (37.0 - 55.0 %) 28.9 L MCV (81 - 102 fL) 93 MCH (26.0 - 34.0 pg) 30.5 MCHC (31.0 - 3 7.0 g/dL) 32.9 RDW (11.6 - 14.4 %) 14.5 H Plt Count (150 - 400 10 3/uL) 251 MPV (9.0 - 12.6 fL) 10.7 Neut % (Auto ) (33.0 - 76.0 %) 72.6 Lymph % (Auto) (14.0 - 56.4 %) 17.6 Lanier % (Auto) (0.0 - 12.9 %) 8.4 Eos % (Auto) (0.0 - 7 .0 %) 0.2 Baso % (Auto) (0 - 2.0 %) 0.6 Neut # (Auto) (1.5 - 7.0 10 3/uL) 3.89 Lymph # (Auto) (1.50 - 4.00 10 3/uL) 0.94 L Lanier # (Auto) (0.20 - 0.80 10 3/uL) 0.45 Eos # ( Auto) (0.0 - 0.5 10 3/uL) 0.01 Baso # (Auto) (0.0 - 0.1 10 3/uL) 0.03 Abs Immat Gran (auto) (0.000 - 0.100 x10 3/uL) 0 .030 Immature Gran % (0.0 - 1.0 %) 0.6 Nucleated RBC % (0 - 0.2 %) 0.0 Nucleated RBCs # (0.000 - 0.012 10 3/uL) 0.000 Toxicology Acetone, Qual (NEGATIVE) MODERATE H 1 05/11 03/11 03/11 03/11 1023 1045 1259 1301Chemistry Sodium (135 - 145 mmol/L) 125 L Potassium (3.5 - 5.1 mmol/L) 5.3 H Chloride (98 - 107 mmol/L) 93 L Carbon Dioxide (21 - 32 m mol/L) 15 L Anion Gap (2.0 - 16.0) 22.3 H BUN (4 - 23 mg/dL) 23 Creatinine (0.6 - 1.5 mg/dL) 1.3 Glomerular Filt r Rate (>60 ml/min) 45 L BUN/Creatinine Ratio (12.0 - 20.0) 17.7 Glucose (65 - 99 mg/dL) 477 *H POC Glucose (70 - 105 mg/dL) 449 *H Calcium (8.5 - 10.1 mg/dL) 8.2 L Magnesiu m (1.8 - 2.4 mg/dL) 1.7 L Troponin I High Sens (0 - 53 pg /mL) 1804 *H Triglycerides (0 - 149 mg/dL) 174 H Cholester ol (0 - 200 mg/dL) 292 H LDL Cholesterol Measurd (0 - 100 m g/dL) 182 H HDL Cholesterol (40 - 60 mg/dL) 64 H Cholesterol /HDL Ratio (1 - 6) 5Serology SARS-CoV-2 Ag (Rapid) (Negati ve) NEGATIVEUrines Urine Color (YELLOW) STRAW Urine Appearance (CLEAR) CLEAR Urine pH (5.0 - 8.0) 5.0 Ur Speci fic [place] (1.005 - 1.025) 1.020 Urine Protein (NEGATIVE) N EGATIVE Urine Glucose (UA) (NEGATIVE) 3+ H Urine Ketones (NEGATIVE) 2+ H Urine Blood (NEGATIVE) 1+ H Urine Nitrite ( NEGATIVE) NEGATIVE Urine Bilirubin (NEGATIVE) NEGATIVE Uri ne Urobilinogen (0.1 - 0.2 EU/dL) NEGATIVE Ur Leuko cyte Esterase (NEGATIVE) NEGATIVE Urine RBC (0 - 3 /h pf) 0-2 Urine WBC (0 - 3 /hpf) 0-2 Ur Squamous Epith Dilia ls (FEW /HPF) RARE Urine Bacteria (NEGATIVE /HPF) NONE S EEN Microbiology: Date/Time Procedure - Status Sourc e Growth 03/11 1329 MRSA Screen - CAN NASAL Cancelled: Auto-cancelled after 1 day. Recent Impressions:R ADIOLOGY - XR CHEST 1 V 03/11 1003 Report Impression - S tatus: SIGNED Entered: 03/11/2022 1043 IMPRESSION:No ac [place] cardiopulmonary abnormality.Impression By: Marshal Kern SCAN - CT HEAD/BRAIN W/O CONT 1 05/11 1058 Report Impression - Status: SIGNED Enter ed: 03/11/2022 1132 IMPRESSION: No acute intracrania l abnormality Impression By: Camilla Liu ECG #1 InterpretationText/Dict NoteEKG done 1034 demons trates sinus rhythm, rate 97 bpm, no evidence of ST joselyn vation OR. QTC is 482 ms.Date 03/11/22 Re-Evaluation MDM Fr ee Text MDM NotesFree Text MDM Notes71 y/o female with exten sive past medical history here via EMS for transient chest pain and high blood sugar. here patient is awake and aler t, chronic blindness noted, GCS 15. no focal deficits noted .EKG here reveals no STEMI. Troponin is elevated, aspirin given here, discussed with Dr. gonzalez who will see patiloraine nt and recommends trend troponin at this time, patient has known extensive cardiac disease. Patient will be admit sarah beth for DKA, NSTEMI and further work up. Cardiology and ICUteam will follow. patient admitted in stable conditio n. ED CourseMedication(s) OrderedMedication(s) Ordered:Anti-Infective Agents Sig/Chris Start mary jo e Last Medication Dose Route Stop Time Status Admin Cef triaxone Sodium 1,000 MG X1ED STA 03/11 1108 DC 03/11 Sod ium Chloride 10 ML IV 03/11 1110 1140 Central Nervou s System Agents Sig/Chris Start time Last Medication Dose R oute Stop Time Status Admin Aspirin 324 MG X1ED STA 03/11 1107 DC 03/11 PO 03/11 1108 1139 Electrolytic, Caloric, And Pablo Sig/Chris Start time Last Medication Dose Route St op Time Status Admin Dextrose/Sodium 1,000 ML X1ED STA 1 05/11 1109 AC Chloride IV 04/22 0308 Sodium Chloride 1,000 ML X1ED STA 03/11 1109 AC 03/11 IV 04/22 0308 1140 Sodi um Chloride 1,000 ML X1ED STA 03/11 0942 DC 03/11 IV 03/11 1 041 1046 Hormones And Synthetic Substit Sig/Chris Start ti me Last Medication Dose Route Stop Time Status Admin Ins ulin Human Regular 100 UNIT X1ED STA 03/11 1109 CKD 03/11 Sodium Chloride 99 ML IV 03/15 1508 1150 ConsultationCo nsultation Referral/Consult Name Kenneth Gonzalez MD Consu ltant Called Cardiology Requested Call Time 1305 Reque sted Call Date 03/11/22 Call Returned Call returned Call R eturned Time 1305 Call Returned Date 03/11/22 Silhouette Artist Will see patient, Agrees with eval, Agrees with plan, AGR EES WITH TREND TROPONIN AND ASPIRIN, WILL SEE PATIENT FOR NSTEMI, HOLD OFF ON HEPARIN GTTAT THIS TIME. Patient Dis charge Departure Vital Signs/ConditionVital SignsAll vi terra signs available at the time of this entry have been re viewed. Condition Stable Clinical ImpressionClinical ImpressionPrimary Impression: DKA (diabetic ketoacidosis)Secondary Impressions: Hyperkalemia , NSTEMI (non-ST elevated myocardial infarction) Disposit ion DecisionAdmit Admit Physician Name Adis Fay MD Admit Physician Primary Care Physician Request T eduardo 1318 Request Date 03/11/22 )( Admission Accepts Yes ) ( Accepted Time 1318 )( Accepted Date 03/11/22 Call Informa tion will see patient, agrees with eval, agrees with plan Discharge/Care PlanCounseled Regarding Diagnosis , Need for admission(Auto) PrescriptionsCurrent Visit Scrip tsInsulin Glargine (Lantus Solostar) 18 UNITS SUBQ QAM Ins ulin Glargine (Lantus Solostar) 18 UNITS SUBQ QAM #5 SYR Ref 2 Inject 18 units every morning. Critical CareTime Spent (minutes): 35Services Performed Patient manageme nt by me, Time spent at bedside, Reviewing test results, R eviewing imaging, Discussing patient care, Documentation in recordPatient was critically ill due to:NSTEMI a nd DKAMy treatment and management were:IV fluids resuscit ation, Insulin gtt, aspirin for NSTEMI, consultation [facility] Cardiology and ICU. CC Note 1Total critical care time 35 minutes. Total critical care time documented couch s not include time spent on separately billed procedur es or the services of residents, students, nurses or physi janet assistants. I personally saw and examined the angel luis aguilar. I have reviewed all diagnostic interpretations and treatment plans as written. I was present for the ingram port ions of any proceduresperformed and the inclusive time noted in any critical care statement. Critical care time incl udes patient management by me, time spent at the kayla ents bedside,time to review lab and imaging results, discussing patient care, documentation in the medical recor d, and time spent with the family or caregiver. CC Note 2The high probability of sudden, clinically significant de terioration in the patient's condition required the highest level of my preparedness to intervene urgently. The services I provided to this patient were to treat and/or prevent cli nically significant deterioration that could result in s evere disability or . Services included the follo wing: chart data review, reviewing nursing notes and/or old charts, documentation time, technical assistance consultant collaboration reg arding findings and treatment options, medication order s and management, direct patient care, re-evaluations, vital sign assessments and ordering, interpreting and revie wing diagnostic studies/lab tests. Aggregate critical care time was 35 minutes, which includes only time during which I was engaged in work directly related to the patient' s care, as describedabove, whether at the bedside or elsewh ere in the Emergency Department. It did not include time sp ent performing other reported procedures or the serv ices of residents, students, nurses or physician assista nts. Quality Ovgwljvd56-Yqni ECG for CP Performed doc umented at 1942RPT #:[id number] OF REPORTEDEmergenc y department [id number]:32:[id number] vailable for patient [id number]:43:1 3 2022-02-22 [id number]:36:00 [facility] 15:36:00 [facility] ([facility])Gastroenterology Prog. Note REPORT #: [id number] REPORT STATUS: Signed DATE: 02/22/22 T EDUARDO: 1536 PATIENT: LIZZIE HINKLE UNIT #: [id number] CCOUNT #: [id number] [facility]OM [facility]: [facility]5201 BED: 1 : 3 AGE: 71 SEX: F ATTEND: Erasmo Fay MD ADM DT: AUTHOR: Xuan Banuelos APRN ATTENTION EDITS and/or ADDENDA must be made i n Patient Keeper for this note. Edits and ammendments created in [employer] are not visible in Patient Keeper or the legal medical record (HPF). -- CO-SIGNATURE -- COMMENTS:The ca se was discussed on rounds with Xuan Banuelos NP. I rev iewed the ROS, PEand medications. I repeated pertinent por tions of the examination and reviewedthe relevant imaging and laboratory data. I agree with the findings, asse ssmentand plan as documented. Signed in PatientKeeper by PEGGY MOYA MD on 03/10/22 at 21:59 -- ASSESSMEN T AND PLAN -- PROBLEMS: 1: ColitisA/P: per CT abd/pelstool studies deferred d/t no bowel movementsantibioticspain c ontrol and antiemetics PRNdiet as toleratedSerial abd exams and monitor bowel habits 2: GastritisA/P: Pepcid and Carafate 3: AnemiaA/P: trend H/H and transfuse PRN 4: CAD (coronary artery disease)A/P: on DAPTmedical management pe r Primary -- SUBJECTIVE -- PATIENT NARRATIVE:no diarrhea. tolerating diet without abdominal pain -REVIEW OF SYSTEMS- GENERAL: Negative for fever, malaise. Positive fatigue.EARS/NOSE/THROAT: Negative for sore thro at. No otalgia. No rhinorrhea.RESPIRATORY: Negative for dyspnea or wheeze. No cough.CARDIOVASCULAR: Negative for ch est pain or palpitations. No extremity swelling.GASTROINTEST INAL: + for abdominal pain + nausea. No emesis. +diarrhea.GENITOURINARY: Negative for dysuria, f requency, or urgency. No gross hematuria.MUSCULOSKELETAL: Negative for joint stiffness, pain, or arthralgias. Chron ic generalized weaknessSKIN: Negative for rashes. N o pruritus.NEUROLOGICAL: Negative for headache. No vertigo. Denies paresthesias. Chronic generalized weaknessPSYCHIATRIC: Negative for specific complaints.ALLERGIC / IMMUNOLOGIC: Negative for heat/cold intolerance, polydipsia, or polyuria. -- OBJECTI VE -- VITALS (02/21 15:36 - 02/22 15:36):Temperature C : 37.1 (36.6 - 37.2)Temperature source: OralPulse Rate 92 (80 - 93)Respiratory rate: 18 (16 - 20)BP: 113/59 (111 /59 - 146/81) -EXAM- OTHER: General: Chronically ill-a ppearing, thin, and elderly female in NAD. Head: Normocep halic, atraumatic. Eyes: Legally blind. Ears: grossly n ormal hearing. Nose: No deformity, no discharge, no inflammation, no lesions. Mouth: Oropharynx with out deformities or lesions, normal mucosa.. Neck: S upple. Chest: Grossly normal appearance. Lungs: Clear b ilaterally with normal respiratory effort. Heart: Regular rate and rhythm. Abdomen: Soft, mild generalized ttp Musculoskeletal: No deformity, joint ROM grossly normal. Extremities: No clubbing, no cyanosis, no edema. Neurological: No focal deficits. Skin: Warm, dry . Psychiatric: Alert and oriented to time, person, place. Normal mood and affect, intact judgment and ins ight. -- DATA -- MEDICATIONS INSULIN GLARGINE 18 UNITS LANDIN BQ QAMmorphine SULFATE 2 MG IV Q3HR (PRN)GLUCAGON 1 MG IV ASDIR (PRN)INSULIN LISPRO UNITS SUBQ AC HSONDANS ETRON HCL/PF 4 MG IV Q4H PRNDICYCLOMINE HCL 10 MG PO T IDDEXTROSE 16 GM PO ASDIR (PRN)ACETAMINOPHEN 650 MG PO Q4H PRNmetroNIDAZOLE 500 MG PO [id number] 1 GM P O TID@0700,1100,1700FAMOTIDINE 20 MG PO Q12HR LABS GLU BED (02/22/22 12:20)GLUBED 298 H FE W/TOTAL IRON BIN DING CAP (02/22/22 10:56)IRON 66TOTAL IRON BINDING CAPACI TY 214 ERIN SATURATION 31 BASIC METABOLIC PANEL (01/30 09/19 10:56)SODIUM 132L LPOTASSIUM 4.0CHLORIDE 99CARBO N DIOXIDE 25ANION GAP 12.0GLUCOSE 382D H D HBLOOD UREA NIT ROGEN 15GLOMERULAR FILTRATION RATE 57 LCREATININE 1.2BUN/CREATININE RATIO 12.5CALCIUM 8.3 L CBC W/ AUTO DIFF (02/22/22 10:56)WHITE BLOOD CELL 4.3L LRED BLOOD CELL 2.89 LHEMOGLOBIN 8.4L LHEMATOCRIT 26.4L LMEAN CELL VO LUME 91MEAN CELL HGB 29.1MEAN CELL HGB CONCENTRATION 31.8RED CELL DISTRIBUTION WIDTH 13.6PLATELET COUNT 368MEAN PL ATELET VOLUME 10.7NEUTROPHIL % 62.5IMMATURE GRANULOCYTE % 1.6 HLYMPHOCYTE % 24.5MONOCYTE % 7.9EOSINOPHIL % 2.6 BASOPHIL % 0.9NUCLEATED RBC % 0.0NEUTROPHIL # 2.68IMMATURE GRANULOCYTE # 0.070LYMPHOCYTE # 1.05 LMONOCYTE # 0.34EOSINO AYLA # 0.11BASOPHIL # 0.04NUCLEATED RBC # 0.000 GLU BED (02/22/22 08:48)GLUBED 404 *H GLU BED (02/21/22 21:01)GLU BED 161 H GLU BED (02/21/22 16:21)GLUBED 273 H Signed in PatientKeeper by Xuan Banuelos APRN on 2 at 15:37 Cosigned by PEGGY PEREZ MD on 03/10/22 at 21:59 at 2159 at 2159ATTENTION EDITS and/or ADDENDA must be ma de in Patient Keeper for this note. Edits and ammen dments created in [facility] are not visible in Patien t Keeper or the legal medical record (HPF). RPT #: [id number] OF REPORT PRProgress [id number]:36:[id number] Available for patient [id number]:2 9 2022-02-22 [id number]:12:00 [facility] 15:12:00 [place] ([facility])Med Order Sheet REPORT #: [id number] REPORT STATUS: Signed DATE: 02/22/22 TIME: 1511 PATIENT : LIZZIE HINKLE UNIT #: [id number] #: [id number] ROOM #: NC.5201 BED: 1 : 3 AGE: 71 SEX: F ATTEND: Erasmo Fay MD ADM DT: AUTHOR: Erasmo Fay MD ATTENTION EDITS and/or ADDENDA must be made i n Patient Keeper for this note. Edits and ammendments c reated in [facility] are not visible in Patient Keeper or the legal medical record (HPF). Discharge Medication Reconciliatio n DISCHARGE MEDICATION LISTDicyclomine Cap (Bentyl Cap) Dose : 10MG PO TID PRN abdominal cramps/pain, Disp: 60 capsule, Refills: 0Famotidine Tab (Pepcid Tab) Dose: 20MG PO Q12HR , Disp: 60 tablet, Refills: 0Insulin (Glargine) Inj (Lantus Inj) Dose: 18UNITS SUBQ QAMInsulin Lispro InJ (HumaLOG Inj) Dose: UNITS SUBQ AC HSmetroNIDAZOLE Tab (Flagyl Tab) D ose: 500MG PO Q8HR, Disp: 30 tablet, Refills: 0 STOPPED HOS PITAL MEDICATIONSDc'd: Acetaminophen Tab (Tylenol Tab) 650MG PO Q4H PRN pain scale 1-3 (use1st)Dc'd: Dextrose Ch ewable Tab (Glucose Chewable Tab) 16GM PO ASDIR PRNhypoglyc emia protocolDc'd: Glucagon Inj (Glucagon Inj) 1MG IV ASDIR PRNhypoglycemiaDc'd: morphine Inj (morphine Inj) 2MG IV Q3HR PRN abdominalcramps/painDc'd: Ondansetron I nj (Zofran Inj) 4MG IV Q4H PRN nausea andvomitingDc'd: Sucr alfate Tab (Carafate Tab) 1GM POTID@0700,1100,1700Electroni khloe Signed in PatientKeeper by ERASMO LA on 02/22/22 15:11 at 1512ATTENTION EDITS and/or ADDENDA must be ma de in Patient Keeper for this note. Edits and ammen dments created in [employer] are not visible in Patie nt Keeper or the legal medical record (HPF). RPT #: [id number] OF REPORT CLClinical [id number]:12:[id number] Available for patient [id number]:0 5 2022-02-22 [id number]:29:00 [facility] 14:29:00 [place] ([facility] Med. Discharge Summary REPO RT #: [id number] REPORT STATUS: Signed DATE: 02/22/22 T EDUARDO: 1429 PATIENT: LIZZIE HINKLE UNIT #: [id number] ROOM #: NC.5201 BED: 1 : 3 AGE: 71 SEX: F ATTEND: Erasmo Fay MD ADM DT: AUTHOR: Erasmo Fay MD ATTENTION EDITS and/or ADDENDA must be made i n Patient Keeper for this note. Edits and ammendments created in [employer] are not visible in Patient Keeper or the legal medical record (HPF). -- PROBLEMS/PROCEDURES -- ADMISSIO N DATE:02/20/22 ADMITTING DIAGNOSES: - Anemia - CA D (coronary artery disease) - Colitis - Diabetic retinopathy - Gastritis - Hyperlipidemia - Hypertension - Hailey pheral arterial disease - Type 1 diabetes mellitus with hyperglycemia - Visual impairment DISCHARGE DATE :02/22/22 DISCHARGE DIAGNOSES: - Anemia - CAD (coronary ar charlie disease) - Colitis - Diabetic retinopathy - Nina ritis - Hyperlipidemia - Hypertension - Peripheral arter ial disease - Type 1 diabetes mellitus with hyperglycemia - Visual impairment -- HOSPITAL COURSE -- HOSPITAL COURSE :Khari with poorly controled DM, and CAD presented with abd pain and diarrhea,She was found to have inflammatory changes of the descending colon consistentwith colitis. She was started on empiric abx. GI consulted,stool studi es were ordered but no suitable specimen was collected. SHe improvedclinically. Pain resolved, appetite retu rned to baseline,. -- DISCHARGE MEDICATIONS -- ALLERGIES :codeine (Unknown - Allergy)lisinopril (Severe - Allergy) -- DISCHARGE INSTRUCTIONS -- ADDTIONAL DISCHARGE INSTRUCTIONS:Emergency Instructions: The patient was instructed to present to the [facility] or call 911 should their symptoms return or worsen. ; -- OBJECTIVE -- VITALS (02/21 14:29 - 02/22 14:29): Temperature C: 37.1 (36.6 - 37.2)Temperature source: OralPul se Rate 92 (80 - 93)Respiratory rate: 18 (16 - 20)BP: 113/5 9 (111/59 - 146/81) -- DATA -- LABS GLU BED (02/22/22 12:20) GLUBED 298 H FE W/TOTAL IRON BINDING CAP (02/22/22 10:56)IR ON 66TOTAL IRON BINDING CAPACITY 214 ERIN SATURATION 31 BA SIC METABOLIC PANEL (02/22/22 10:56)SODIUM 132L LPOT ASSIUM 4.0CHLORIDE 99CARBON DIOXIDE 25ANION GAP 12.0GLU COSE 382D H D HBLOOD UREA NITROGEN 15GLOMERULAR FILTRATION R ATE 57 LCREATININE 1.2BUN/CREATININE RATIO 12.5CALCIUM 8.3 L CBC W/AUTO DIFF (02/22/22 10:56)WHITE BLOOD CELL 4.3 L LRED BLOOD CELL 2.89 LHEMOGLOBIN 8.4L LHEMATOCRIT 26 .4L LMEAN CELL VOLUME 91MEAN CELL HGB 29.1MEAN CELL HGB CO NCENTRATION 31.8RED CELL DISTRIBUTION WIDTH 13.6PLATELET COU NT 368MEAN PLATELET VOLUME 10.7NEUTROPHIL % 62.5IMMATURE GR ANULOCYTE % 1.6 HLYMPHOCYTE % 24.5MONOCYTE % 7.9EOSINOPHIL % 2.6 BASOPHIL % 0.9NUCLEATED RBC % 0.0NEUTROPHIL # 2. 68IMMATURE GRANULOCYTE # 0.070LYMPHOCYTE # 1.05 LMONOCYTE # 0.34EOSINOPHIL # 0.11BASOPHIL # 0.04NUCLEATED RB C # 0.000 GLU BED (02/22/22 08:48)GLUBED 404 *H GLU BED (1 21:01)GLUBED 161 H GLU BED (02/21/22 16:21)GLUBE D 273 H Signed in PatientKeeper by ERASMO FAY MD on 02/23/22 at 11:57 at 1157ATTENTION EDITS and/or ADDENDA must be ma de in Patient Keeper for this note. Edits and ammen dments created in [facility] are not visible in Patien t Keeper or the legal medical record ([facility]). RPT #: [id number] OF REPORT DSDischarge [id number]:29:[id number] 0AVAvailabl e for patient [id number]:58 :32 2022-02-22 [id number]:47:00 [facility] 13:47:00 [place] ([facility])Family Medicine Progress Note REPO RT #: [id number] REPORT STATUS: Signed DATE: 02/22/22 T EDUARDO: 1347 PATIENT: LIZZIE HINKLE UNIT #: [id number] CCOUNT #: [id number] ROOM #: NC.5201 BED: 1 : 3 AGE: 71 SEX: F ATTEND: Erasmo Fay MD ADM DT: AUTHOR: Erasmo Fay MD ATTENTION EDITS and/or ADDENDA must be made i n Patient Keeper for this note. Edits and ammendments c reated in [facility] are not visible in Patient Keeper or the legal medical record ([facility]). -- ASSESSMENT AND PLAN -- PROBLEMS : 1: ColitisA/P: clinically improved,stool studies no t sent - no satisfactory specimencontinue abx,DC home today if OK with GI 2: CAD (coronary artery disease) 3: Hypertens ion 4: Hyperlipidemia 5: Visual impairment 6: Diabetic retinopathy 7: Peripheral arterial disease 8: Type 1 diabete s mellitus with hyperglycemiaA/P: continue basal bolus insu janki -- SUBJECTIVE -- HPI:feeling better, abd pain resol simi, no nausea, appetite improved,had small mushy BM, bu t it was mixed with urine and unable to be sent forstool studies -REVIEW OF SYSTEMS- GENERAL: Negative for fever, chills, unexplained weight loss, and fatigueRESPIRATORY: Negative for shortness of breath, cough, chest congestion , wheezing, hemoptysis, and pleuritic painCARDIOVASCULAR: Ne gative for chest pain, palpitations, dyspnea on exertion, o rthopnea, edema and dizzinessGENITOURINARY: Negative for d ysuria, frequency, or urgency. No gross hematuria.SKIN: Negative for rashes. No pruritus. NEUROLOGICAL: Negative for headache, numbness, tingling, and weaknessPSYCHI ATRIC: Denies depression, anxiety, and suicidal thought s -- OBJECTIVE -- VITALS (02/21 13:47 - 02/22 13:47): Temperature C: 37.1 (36.6 - 37.2)Temperature source: OralPul se Rate 92 (80 - 93)Respiratory rate: 18 (16 - 20)BP: 113/5 9 (111/59 - 146/81) -EXAM- GENERAL: Well developed, well nou rished, in no apparent distress.NECK: No masses, no thyrom egaly, no abnormal cervical nodes, trachea midline.LUNGS: Respirations unlabored, clear to auscultation bi laterally, no wheezing, no ronchi, no ralesHEART: Regular r ate and rhythm, normal S1, S2, no murmurs, no rubs, no g allops, no clicks.ABDOMEN: + BS SOft non tender no HSM no massEXTREMITIES: No clubbing, cyanosis or edemaNEUROLOGICAL: Alert and oriented to person, place, no facial asymmetry, normal speech. Moves all extre mities symmetrically, normal tone,PULSES: Normal caroti d pulses without bruits. Normal pulses bilaterally at rad ial, dorsalis pedis and posterior tibial locations.SK IN: No pallor, no jaundice, no rash, normal turgorLYMPH NODES: None palpable cervical, axillary, supraclavicula r or inguinal locationsPSYCHIATRIC: Mood euthymic. Af fect congruent, Normal eye contact, normal speech. th ought process and thought content intact. -- DATA -- M EDICATIONS INSULIN GLARGINE 18 UNITS SUBQ QAMmorphine SULFA TE 2 MG IV Q3HR (PRN)GLUCAGON 1 MG IV ASDIR (PRN)INSULIN LI SPRO UNITS SUBQ AC HSONDANSETRON HCL/PF 4 MG IV Q4H PRNDICY CLOMINE HCL 10 MG PO TIDDEXTROSE 16 GM PO ASDIR (PRN)ACETAMI NOPHEN 650 MG PO Q4H PRNmetroNIDAZOLE 500 MG PO [id number] ATE 1 GM PO TID@0700,1100,1700FAMOTIDINE 20 MG PO Q12HR LABS GLU BED (02/22/22 12:20)GLUBED 298 H FE W/TOTAL IRON BIN DING CAP (02/22/22 10:56) IRON 66TOTAL IRON BINDING CAPAC ITY 214 ERIN SATURATION 31 BASIC METABOLIC PANEL (02/22 10:56)SODIUM 132L LPOTASSIUM 4.0CHLORIDE 99CARBO N DIOXIDE 25ANION GAP 12.0GLUCOSE 382D H D HBLOOD UREA NI TROGEN 15GLOMERULAR FILTRATION RATE 57 LCREATININE 1.2BUN/CREATININE RATIO 12.5CALCIUM 8.3 L CBC W/ AUTO DIFF (02/22/22 10:56)WHITE BLOOD CELL 4.3L LRED BLOOD CELL 2.89 LHEMOGLOBIN 8.4L LHEMATOCRIT 26.4L LMEAN CELL V OLUME 91MEAN CELL HGB 29.1MEAN CELL HGB CONCENTRATION 31.8RED CELL DISTRIBUTION WIDTH 13.6PLATELET COUNT 368ME AN PLATELET VOLUME 10.7NEUTROPHIL % 62.5IMMATURE GRANULOCYTE % 1.6 HLYMPHOCYTE % 24.5MONOCYTE % 7.9EOSINOPHIL % 2. 6BASOPHIL % 0.9NUCLEATED RBC % 0.0NEUTROPHIL # 2.68IMMATURE GRANULOCYTE # 0.070LYMPHOCYTE # 1.05 LMONOCYTE # 0.34EOSINOP HIL # 0.11BASOPHIL # 0.04NUCLEATED RBC # 0.000 GLU BED (02/22/22 08:48)GLUBED 404 *H GLU BED (02/21/22 21:01)GLUB ED 161 H GLU BED (02/21/22 16:21)GLUBED 273 H Signed in PatientKeeper by ERASMO FAY MD on 01/30 09/19 at 13:50 at 1350ATTENTION EDITS and/or ADDENDA must be ma de in Patient Keeper for this note. Edits and ammen dments created in [employer] are not visible in Patien t Keeper or the legal medical record (HPF). RPT #: [id number] OF REPORT PRProgress [id number]:[id number] Available for patient [id number]:51:0 8 2022-02-21 [id number]:47:00 [facility] 15:47:00 [place] [facility])Gastroenterology Consult REPORT #: [id number] REPORT STATUS: Signed DATE: 02/21/22 TIME: 2887 PATIENT: LIZZIE HINKLE UNIT #: [id number] #: [id number] ROOM #: NC.5201 BED: 1 : 3 AGE: 71 SEX: F ATTEND: Erasmo Fay MD ADM DT: AUTHOR: Xuan Banuelos APRN ATTENTION EDITS and/or ADDENDA must be made i n Patient Keeper for this note. Edits and ammendments c reated in [facility] are not visible in Patient Keeper or the legal medical record (HPF). -- CO-SIGNATURE -- COMMENTS:The ca se was discussed on rounds with Xuan Banuelos NP. I rev iewed the HPI, FH,SH, ROS, PE and medications. I repeated pertinent portions of the examinationand reviewed the rele vant imaging and laboratory data. I agree with thefin dings, assessment and plan as documented. Signed in Pat ientKeeper by PEGGY PEREZ MD on 03/10/22 at 21:55 -- ASSESSMENT AND PLAN -- PROBLEMS: 1: ColitisA/P: per CT abd/pelf/u stool studiesantibioticspain control and antiemetics PRNdiet as toleratedSerial abd exams and monitor bowel habits 2: GastritisA/P: Pepcid and Carafate 3: AnemiaA/P: f/u iron paneltrend H/H and transf use PRN 4: CAD (coronary artery disease)A/P: on DAPTmedical management per Primary -- HISTORY -- REASON FOR CONSULT:col itis CHIEF COMPLAINT:abdominal pain, diarrhea HPI:71 year o ld female with PMH DM, NSTEMI, HTN, HLD, CAD presented to ER with two days of abdominal pain, bowel urgency and diarrh ea. Poor engagement withprovider but describes a general ill feeling with some nausea, no vomiting andgeneralized ach e. Denies attributing factor. Last colonoscopy unknown. CT abd/pel suspicious for colitis with esophagitis and nina ritis. PAST MEDICAL HISTORY: blindness, DM, NSTEMI, HTN, HLD , CAD PAST SURGICAL HISTORY:Right eye retinal detachment landin rgery, hysterectomy, FAMILY HISTORY:Noncontributory -SO CIAL HISTORY- -TOBACCO USE- DETAILS/COMMENTS:Denied -VAPING/INHALED SOLVENTS- DETAILS/COMMENTS:Bert d -ALCOHOL USE- DETAILS/COMMENTS:Denied -DRUG USE- DETAILS/COMMENTS:Denied MARITAL STATUS: L IVING SITUATION:Lives with family -- ALLERGIES/HOME ME DS -- ALLERGIES:codeine (Unknown - Allergy)lisinopril (Severe - Allergy) HOME MEDICATIONS:Aspirin Chewable Tab ( Aspirin Chewable Tab) 81 MG PO DAILYClopidogrel Tab (Shravan vix Tab) 75 MG PO DAILYEzetimibe Tab (Zetia Tab) 10 MG PO DA ILYFolbee 2.5 mg-25 mg-1 mg tablet (folic acid-vit B6-vit B12) 1 TAB PO DAILYIsosorbide Mononitrate ER Tab (Imdur Tab ) 30 MG PO DAILYMetoprolol Succinate XL Tab (Toprol XL Tab) 25 MG PO DAILYRanexa tablet,extended release (ranolazine) 1000 MG PO BID -- SUBJECTIVE -- -REVIEW OF SYSTEMS- GENERAL : Negative for fever, malaise. Positive fatigue.EARS/NOSE/T HROAT: Negative for sore throat. No otalgia. No rhinorrhea.RESPIRATORY: Negative for dyspnea or wheeze. No cough.CARDIOVASCULAR: Negative for chest pain or palpitations. No extremity swelling.GASTROINTEST INAL: + for abdominal pain + nausea. No emesis. +diarrhea.GENITOURINARY: Negative for dysuria, f requency, or urgency. No gross hematuria.MUSCULOSKELETAL: Negative for joint stiffness, pain, or arthralgias. Chron ic generalized weaknessSKIN: Negative for rashes. N o pruritus.NEUROLOGICAL: Negative for headache. No vertigo. Denies paresthesias. Chronic generalized weaknessPSYCHIATRIC: Negative for specific complaints.ALLERGIC / IMMUNOLOGIC: Negative for heat/cold intolerance, polydipsia, or polyuria. -- OBJECTI VE -- VITALS (02/20 15:47 - 02/21 15:47):Temperature C : 36.7 (36.7 - 37.5)Temperature source: OralPulse Rate 84 (77 - 87)Respiratory rate: 16 (16 - 20)BP: 108/62 (108 /62 - 155/85) I/Os (02/20 07:00 - 02/21 07:00):Net 200 Intake 200 -EXAM- OTHER: General: Chronically ill-appearing , thin, and elderly female in NAD. Head: Normocephalic, atr aumatic. Eyes: Legally blind. Ears: grossly normal hearin g. Nose: No deformity, no discharge, no inflammation, no le sions. Mouth: Oropharynx without deformities or lesions , normal mucosa.. Neck: Supple. Chest: Grossly normal cheli earance. Lungs: Clear bilaterally with normal respiratory effort. Heart: Regular rate and rhythm. Abdomen: Soft, mild generalized ttp Musculoskeletal: No deformity, j oint ROM grossly normal. Extremities: No clubbing, no cy anosis, no edema. Neurological: No focal deficits. Skin: Wa rm, dry. Psychiatric: Alert and oriented to time, person, place. Normal mood and affect, intact judgment and insi ght. -- DATA -- MEDICATIONS INSULIN GLARGINE 18 UNITS LANDIN BQ QAMmorphine SULFATE 2 MG IV Q3HR (PRN)GLUCAGON 1 MG IV ASDIR (PRN)INSULIN LISPRO UNITS SUBQ AC HSmetroN IDAZOLE/NS 500 MG IV [id number] HCL/PF 4 MG IV Q4H PRN DICYCLOMINE HCL 10 MG PO TIDDEXTROSE 16 GM PO ASDIR (PRN)WALDEMAR TAMINOPHEN 650 MG PO Q4H PRNFAMOTIDINE 20 MG IV [id number] FATE 1 GM PO TID@0700,1100,1700 LABS GLU BED (02/21/22 11: 51)GLUBED 116 H GLU BED (02/21/22 08:17)GLUBED 57 L BASIC METABOLIC PANEL (02/21/22 07:40)SODIUM 140POTASSIUM 3.3L L CHLORIDE 107CARBON DIOXIDE 27ANION GAP 9.3GLUCOSE 61L LBL OOD UREA NITROGEN 10GLOMERULAR FILTRATION RATE >=60 max estimateCREATININE 0.9BUN/CREATININE RATIO 11.1 LCALCIUM 8.4 L CBC W/AUTO DIFF (02/21/22 07:40)WHITE BLOO D CELL 4.5RED BLOOD CELL 2.82 LHEMOGLOBIN 8.3L LHEMATOC RIT 25.6L LMEAN CELL VOLUME 91MEAN CELL HGB 29.4MEAN CELL HGB CONCENTRATION 32.4RED CELL DISTRIBUTION WIDTH 13 .7PLATELET COUNT 339MEAN PLATELET VOLUME 10.2NEUTROPHIL % 4 2.5IMMATURE GRANULOCYTE % 1.8 HLYMPHOCYTE % 38.0MONOCYTE % 1 3.0 HEOSINOPHIL % 3.6BASOPHIL % 1.1NUCLEATED RBC % 0 .0 NEUTROPHIL # 1.90IMMATURE GRANULOCYTE # 0.080LY MPHOCYTE # 1.70MONOCYTE # 0.58EOSINOPHIL # 0.16BASOPHIL # 0.05NUCLEATED RBC # 0.000 GLU BED (02/20/22 21:1 5)GLUBED 193 H Signed in PatientKeeper by Xuan Banuelos APRN on 02/21/22 at 16:48 Cosigned by PEGGY PEREZ MD on 03/10/22 at 21:55 at 2155 at 2155ATTENTION EDITS and/or ADDENDA must be ma de in Patient Keeper for this note. Edits and ammen dments created in [facility] are not visible in Patien t Keeper or the legal medical record (HPF). [facility] #: [id number] OF [id number]:47:[id number] for patient [id number]:56:19 2022-02-21 [id number]:00:00 [facility] 08:00:00 [facility] ([facility])Family Med. History PhysicalREPORT #: [id number] REPORT STATUS: Signed DATE: 02/21/22 T EDUARDO: 0800 PATIENT: LIZZIE HINKLE UNIT #: [id number] ROOM #: NC.5207 BED: 1 : 3 AGE: 71 SEX: F ATTEND: Erasmo Fay MD ADM DT: AUTHOR: Erasmo Fay MD ATTENTION EDITS and/or ADDENDA must be made i n Patient Keeper for this note. Edits and ammendments c reated in [facility] are not visible in Patient Keeper or the legal medical record (HPF). -- HISTORY -- ADMISSION DATE:02-20 PRIMARY CARE PROVIDER:Primary or Family Physicia n, No CHIEF COMPLAINT:abd pain HPI:Patient with hx DM, devel oped abd pain and diarreha, getting worse not better, adrian sea, no vomiting , no fever, PAST MEDICAL HISTORY:DM, HT N, CAD, diabetic retinopathy,, blind in R eye, diabetic nephropathy,hyperlipidemia, CKD hospitalized for DKA in mar 2019 PAST SURGICAL HISTORY:multiple retinal surg eries, hysterectomy -SOCIAL HISTORY- -TOBACCO USE- DETAILS/COMMENTS:former -VAPING/INHALED SOLVENTS - DETAILS/COMMENTS:none -ALCOHOL USE- DETAILS/COMM ENTS:none -DRUG USE- DETAILS/COMMENTS: none MARITAL STATUS : -- ALLERGIES/HOME MEDS -- ALLERGIES:codeine (Unknow n - Allergy)lisinopril (Severe - Allergy) HOME MEDICATIONS:Aspirin Chewable Tab (Aspirin Chewab le Tab) 81 MG PO DAILYClopidogrel Tab (Plavix Tab) 75 MG PO DAILYEzetimibe Tab (Zetia Tab) 10 MG PO DAILYFol bee 2.5 mg-25 mg-1 mg tablet (folic acid-vit B6-vit B12) 1 TAB PO DAILYIsosorbide Mononitrate ER Tab (Imdur Tab) 3 0 MG PO DAILYMetoprolol Succinate XL Tab (Toprol XL Tab) 25 MG PO DAILYRanexa tablet,extended release (ranolazine) 1000 MG PO BID -- SUBJECTIVE -- -REVIEW OF SYSTEMS- GENERAL : Negative for fever, chills, unexplained weight loss, and fatigueEARS/NOSE/THROAT: Negative for sore throa t. No otalgia. No rhinorrhea.RESPIRATORY: Negative for shortness of breath, cough, chest congestion, wheezing, he moptysis, and pleuritic painCARDIOVASCULAR: Negative for c hest pain, palpitations, dyspnea on exertion, orthopnea, ed venancio and dizzinessGENITOURINARY: Negative for dysuria, fr equency, or urgency. No gross hematuria.MUSCULOSKELETAL: Ne gative for Back pain, joint pains and myalgiasSKIN: Negativ e for rashes. No pruritus.NEUROLOGICAL: Negative for h eadache, numbness, tingling, and weaknessPSYCHIATRIC: Den ies depression, anxiety, and suicidal thoughts -- OB JECTIVE -- VITALS (02/20 19:12 - 02/21 19:12):Temperature C : 36.7 (36.7 - 37.5)Pulse Rate 80 (77 - 87)Respiratory rate: 20 (16 - 20)BP: 141/74 (108/62 - 155/85) I/Os (01/30 3 07:00 - 02/21 07:00):Net 200Intake 200 -EXAM- GENERAL: Well developed, well nourished, in no apparent distre ss.HEAD: Normocephalic, atraumatic.EYES: corneas scarred bilaterlaEARS: External ears without deformity, erythema or edemaNOSE: No deformity, no discharge, no inflam mation, no lesions.MOUTH: oropharynx moist and pink. no ton sillar hypertrophy, no exudate, no mucosal lesionsNECK: No masses, no thyromegaly, no abnormal cervical nodes, trac hea midline.CHEST: Grossly normal appearance.LUNGS: Respirations unlabored, clear to auscultation bi laterally, no wheezing, no ronchi, no ralesHEART: Regular r ate and rhythm, normal S1, S2, no murmurs, no rubs, no g allops, no clicks.ABDOMEN: + BS SOft mild - moderate diffus e tenderness, no rebound no guardingMUSCULOSKELETA L: No obvious deformitiesEXTREMITIES: No clubbing, cya nosis or edemaNEUROLOGICAL: Alert and oriented to person, place, and time. PERRL, EOMI, no facial asymmetry, tongue a nd uvula are midline, normal speech. Moves all extremitie s symmetrically, normal tone, sensation intact al l extremitiesPULSES: Normal carotid pulses without bruits. Normal pulses bilaterally at radial, dorsalis pe dis and posterior tibial locations.SKIN: No pallor, no jaundice, no rash, normal turgorLYMPH NODES: None palpable cervical, axillary, supraclavicular or inguinal locationsP SYCHIATRIC: Mood euthymic. Affect congruent, Normal eye cont act, normal speech. thought process and thought content inta ct. -- DATA -- LABS GLU BED (02/21/22 16:21)GLUBED 273 H GLU BED (02/21/22 11:51)GLUBED 116 H GLU BED (02/21/22 0 8:17)GLUBED 57 L BASIC METABOLIC PANEL (02/21/22 07:40)SODIU M 140POTASSIUM 3.3L LCHLORIDE 107CARBON DIOXIDE 27 ANION GAP 9.3GLUCOSE 61L LBLOOD UREA NITROGEN 10GLOMERULA R FILTRATION RATE >=60 max estimateCREATININE 0.9BUN/CREATININE RATIO 11.1 LCALCIUM 8.4 L CBC W/AUTO DIFF (02/21/22 07:40)WHITE BLOOD CELL 4.5RED BLO OD CELL 2.82 LHEMOGLOBIN 8.3L LHEMATOCRIT 25.6L LMEAN CE LL VOLUME 91MEAN CELL HGB 29.4 MEAN CELL HGB CONCENTRATION 32.4RED CELL DISTRIBUTION WIDTH 13.7PLATELET COUNT 339ME AN PLATELET VOLUME 10.2NEUTROPHIL % 42.5IMMATURE GRANULOCYTE % 1.8 HLYMPHOCYTE % 38.0MONOCYTE % 13.0 HEOSINOPHIL % 3.6BASOPHIL % 1.1NUCLEATED RBC % 0.0NEUTROPHIL # 1.90IMMATUR E GRANULOCYTE # 0.080LYMPHOCYTE # 1.70MONOCYTE # 0.58EOSINOPHIL # 0.16BASOPHIL # 0.05NUCLEATED RB C # 0.000 GLU BED (02/20/22 21:15)GLUBED 193 H -- ASSESSME NT AND PLAN -- PROBLEMS: 1: ColitisA/P: GI conuslted,stool s tudies, abxmonitor response to trreatment 2: CAD (schmid ry artery disease) 3: Hypertension 4: Hyperlipidemia 5: Vi sual impairment 6: Diabetic retinopathy 7: Peripheral arterial disease 8: Type 1 diabetes mellitus with hypergl ycemiaA/P: continue basal bolus insulin Signed in PatientKe eper by ERASMO FAY MD on 02/21/22 at 19:29ATTENTION EDITS and/or ADDENDA must be m alexandra in Patient Keeper for this note. Edits and ammen dments created in [facility] are not visible in Patien t Keeper or the legal medical record (HPF). [facility] #: [id number] OF REPORT HPHistory and physical [id number]:00:[id number] lable for patient [id number] 9:30:11 2022-02-20 [id number] [facility] 14:29:00 [place] [id number] PATIENT NAME: LIZZIE HINKLE ADMIT DA TE: 02/20/22ACCOUNT NO: [id number] ROOM NO: TN.520 7 AGE: 71 REPORT TYPE: eELECTROCARDIOGRAM SEX: F ADMITTING PHYSICIAN:Fadumo Fay MD ATTENDING PHYSICIAN:Erasmo spann MD Order:[id number] Reason : Test Date/Time Stamp:Mellen Feb 20 2022 14:29:54Blood Pressure : / mmH GVent. Rate : 077 BPM Atrial Rate : 079 BPM P-R Int : 107 ms QRS Dur : 076 ms QT Int : 383 ms P-R-T Axes : 068 059 -01 degrees QTc Int : 434 ms Sinus rhythmShort IA intervalBorder line T abnormalities, inferior leads Confirmed by ALEJA GRIGSBY, ROBERT Owens ([id number]) on 02/21/2022 9:30:52 AM Ref erred By: DOES_NOT KNOW Confirmed by:ROBERT BERNAL MD Elec tronically Signed by Robert Bernal MD on 02/21/22 at 093 0 [place] [id number] PATIENT NAME: LIZZIE HINKLE .[id number] le for patient [id number]:3 1:31 2022-02-20 [id number]:13:00 [facility] 14:13:00 [facility] ([facility])EMERGENCY PROVIDER REPORTREPORT#:[id number] REPORT STATUS: SignedDAT E:02/20/22 TIME: 1413 PATIENT: LIZZIE HINKLE UNIT #: [id number]#: [id number] [address]AGE: 71 SEX: F PCP PHYS: No Primary or Family PhysicianS ERVICE AUTHOR: Daniel Díaz MD * ALL edits or amendments must be made on the electronic/computer document * HPI-Abd Pain F 40 and Over Free Text HPI NotesFree Text HPI Wyohi18-tbud-tvt female history hypertension, di abetes, hyperlipidemia, TIA, multipleDKA episodes, CAD p resented for evaluation of constant abdominal pain for th e past few days. Stated that she tried to have bowel moveme nts but could not ableto, and there was tenesmus associa sarah beth with abdominal pain. Denies any associated fever, chi lls, chest pain or short of breath. Past medical history of pretension, diabetes, hyperlipidemia Surgical hi story none REVIEW OF SYSTEMS Constitutional: no fever, no c hillsEyes: no visual changes, no abnormal eye dischargeENT: no sore throat, no change in voicesCV: no chest pain or palpitationResp: no cough, no SOBGI: +abd painGU : no dysuria, no abnormal genital dischargeMSK: no ex tremity painSkin: no rash, no lacerationHeme: no brusing , no recent weight lossNeuro: no weakness, no change in ment ation PHYSICAL EXAM Constitutional: Awake, alert, orie nted, NADPsych: nl judgement, linear thoughtsSkin: nl color, W/D/IEyes: EOMI, conjunctiva intact without eryt hemaResp: no wheezing or stridor, no ralesCV: nl rate, reg ular rhythm, no murmursAbd: Tenderness palpation note d at the suprapubic area, without any rebound, guarding o r sign of general peritonitisMSK Upper Ext: FROMMSK Lower Ext: FROMNeurologic: intact motor and sensory, 5/5 st rength UEs and LEs GeneralInitial Greet Date/Time 02/20/22 1101 PresentationChief Complaint Abdominal painSudden in Onset? YesOnset Occurred Days agoSymptom Duration Since onsetProgression since Onset Unchanged Risk-Abd Pain F 40 and Over)( Abdominal Aortic Aneurysm Risk factor s reviewed Review of Systems ROS StatementsComplete sys rev neg except as marked. Past Medical History - AdultStated Co mplaint CONSTIPATION/DIARHEA/LOW ABD PAINAllergiesCoded Allergies:lisinopril (Severe, ANGIOEDEMA 2)codeine (DROWSINESS/very sleepy 02/20/22) Home Medicatio nsActive ScriptsInsulin Glargine (Lantus Solostar) 18 UNI TS SUBQ QAM Insulin Glargine (Lantus Solostar) 18 UNITS SUBQ QAM #2 SYR Prov: 08/09/21DME - INSULIN PEN NEEDLES (INSULIN PEN NEEDLES) 1 EACH [facility] DME - INSULIN PEN NEE DLES (INSULIN PEN NEEDLES) 1 EACH [facility] #120 - P rov: 08/09/21Insulin Lispro (Humalog Kwikpen) SUBQ AC HS Insulin Lispro (Humalog Kwikpen) SUBQ AC HS #1 SYR Prov: 08/09/21DME - GLUCOSE STRIPS ([facility] (GL[facility]CO[facility] STRIPS) [facility] - Prov: 08/09/21DME - GLUCOSE LANCETS (GLUC OSE LANCETS) 1 EACH M[facility] QID DME - GLUCOSE LANCETS ( GLUCOSE LANCETS) [facility] - Prov: 08/09/21 R eported MedicationsAspirin 81 MG PO DAILY Clopidogrel Bi sulfate (Plavix) 75 MG PO DAILY Metoprolol Succ Xl (Topr ol Xl) 25 MG PO DAILY Ezetimibe (Zetia) 10 MG PO DAILY Ran olazine Er (Ranexa) 1,000 MG PO BID Cyanocobalamin/Fa/Pyrid oxine (Folbee) 1 TAB PO DAILY Isosorbide Mononitrate S r (Imdur) 30 MG PO DAILY Calculated Suicide Risk (nurs) No riskReview of Nursing Notes Triage notes reviewedAdditional Medical HistoryDiabetes, hypertension, high cholesterol, neuropathy, CAD, legally blindAdditional Surgica l HistoryNoneSmoking status for patients 13 years old or older: Never Smoker Physical Exam Vital SignsVit al SignsFirst Documented: Result Date Time Pulse Ox 100 02/20 1055 B/P 132/79 02/20 1055 B/P Mean 96 02/20 10 55 O2 Delivery Room air 02/20 1055 Temp 36.8 02/20 105 5 Pulse 93 02/20 1055 Resp 18 02/20 1055 Last Documented: R esult Date Time Pulse Ox 100 02/20 1400 B/P 129/72 02/20 14 00 B/P Mean 91 02/20 1400 O2 Delivery Room air 02/20 1400 P ulse 94 02/20 1400 Resp 18 02/20 1400 Temp 36.8 02/20 10 55 Review of Vital Signs Reviewed Interpretation Diagnosti cs Lab Results InterpretationResultsLaboratory Tests 1130:[Embedded Image Not Available]Laboratory Te sts: 02/20 02/20 02/20 1130 1130 1224 Chemistry Sodium (135 - 145 mmol/L) 135 Potassium (3.5 - 5.1 mmol/L) 3.6 Chl oride (98 - 107 mmol/L) 103 Carbon Dioxide (21 - 32 mmol/L) 25 Anion Gap (2.0 - 16.0) 10.6 BUN (4 - 23 mg/dL) 12 Cre atinine (0.6 - 1.5 mg/dL) 1.3 Glomerular Filtr Rate (>60 ml/min) 52 L BUN/Creatinine Ratio (12.0 - 20.0) 9.2 L Gl ucose (65 - 99 mg/dL) 206 H Lactic Acid (0.4 - 2.0 mmol/L) 1.9 Calcium (8.5 - 10.1 mg/dL) 8.6 Total Bilirubin (0.2 - 1. 2 mg/dL) 0.3 Direct Bilirubin (0.0 - 0.3 mg/dL) < 0.1 Ind irect Bilirubin (0.0 - 0.8 mg/dL) 0.2 AST (15 - 37 U/L ) 21 ALT (6 - 50 U/L) 18 Total Alk Phosphatase (45 - 117 U/L ) 98 Troponin I High Sens (0 - 53 pg/mL) 13 Total Pro tein (6.4 - 8.2 g/dL) 7.7 Albumin (3.4 - 5.0 g/dL) 2.6 L Tanya bulin (2.3 - 3.5 g/dL) 5.1 H Triglycerides (0 - 149 mg/dL) 155 H Cholesterol (0 - 200 mg/dL) 243 H LDL Cholester ol Measurd (0 - 100 mg/dL) 146 H HDL Cholesterol (40 - 60 m g/dL) 58 Cholesterol/HDL Ratio (1 - 6) 4 Lipase (73 - 393 U/L) 296 Hematology WBC (4.5 - 11.0 10 3/uL) 5.1 RBC (3.5 0 - 5.50 10 6/uL) 3.09 L Hgb (12.0 - 16.0 g/dL) 9.2 L Hct (3 7.0 - 55.0 %) 28.4 L MCV (81 - 102 fL) 92 MCH (26.0 - 34.0 pg) 29.8 MCHC (31.0 - 37.0 g/dL) 32.4 RDW (11.6 - 14.4 %) 13.8 Plt Count (150 - 400 10 3/uL) 376 MPV (9.0 - 12.6 fL ) 10.2 Neut % (Auto) (33.0 - 76.0 %) 53.2 Lymph % (Auto) (14 .0 - 56.4 %) 29.7 Lanier % (Auto) (0.0 - 12.9 %) 11.5 Eos % (Auto) (0.0 - 7.0 %) 2.2 Baso % (Auto) (0 - 2.0 %) 1.2 Neut # (Auto) (1.5 - 7.0 10 3/uL) 2.69 Lymph # (Auto) (1.50 - 4.00 10 3/uL) 1.50 Lanier # (Auto) (0.20 - 0.80 10 3/uL) 0 .58 Eos # (Auto) (0.0 - 0.5 10 3/uL) 0.11 Baso # (Auto) (0 .0 - 0.1 10 3/uL) 0.06 Abs Immat Gran (auto) (0.000 - 0.100 x10 3/uL) 0.110 H Immature Gran % (0.0 - 1.0 %) 2.2 H Nucl eated RBC % (0 - 0.2 %) 0.0 Nucleated RBCs # (0.000 - 0.012 10 3/uL) 0.000 Microbiology: Date/Time Procedure - Status Source Growth 02/20 1240 Blood Culture - RECD BLOOD 1240 Blood Culture - RECD BLOOD 02/20 1225 Blood Cult ure - RECD BLOOD 02/20 1225 Blood Culture - RECD BLOOD Rec ent Impressions:RADIOLOGY - XR CHEST 1 V 02/20 1052* Report Impression - Status: SIGNED Entered: 02/20/2022 1138 IMPRESSION: No acute pulmonary process.Impressio n By: PAM AdamsAT SCAN - CT ABD PELVI S W/CONT 02/20 1320 Report Impression - Status: SIGNED Entered: 02/20/2022 1402 IMPRESSION: 1. Transmural thicke jyoti of the colon suspicious for colitis.2. Distal esophagea l and gastric wall thickening should be correlatedfor esophagitis and gastritis.3. Hepatic steatosisImpression By: Florencio Villegas MD Lab Imaging StatementLaboratory radiographic studies reviewed and considered in the medical decision-making. ECG #1 InterpretationText/Dict NoteRate 77, normal axis, normal rhythm. QS 20. No ST joselyn vation Procedures Peripheral/EJ IV Start #1Procedure Pe rformed by ED physicianType of Catheter Single lumenSize of Catheter #18Number of Attempts 1Skin Preparation Agent Shur-clensSecured with Tape, 2x2 tape Re-Evaluat ion MDM Free Text MDM NotesFree Text MDM [id number] d female multiple medical history, [facility], presented for evaluation of persistent abdominal pain in the past few days associated with tenesmus. Afeb rile, VSS on arrival. Abdominal tenderness notedon exam, w ithout evidence of generalized peritonitis. Evidence of colitis noted. Evidence of dehydration noted on clinical exam. Patient reported persistent pain even after jose tment. Patient was a very difficult IV access, requirin g multiple IV attempts by multiple nursing staff and myself . will admit for further evaluation of colitis. )( Re-Evaluation/Progress #1)( Re-Eval Status Impro simi ED CourseMedication(s) OrderedMedication(s) Ordered :Central Nervous System Agents Sig/Chris Start time Last Me dication Dose Route Stop Time Status Admin Acetaminophen 650 MG X1ED STA 02/20 1413 DC PO 02/20 1414 Diagnostic Agents Sig/Chris Start time Last Medication Dose Route S top Time Status Admin Iopamidol 0 .STK-MED ONE 02/20 1259 DC .ROUTE Electrolytic, Caloric, And Pablo Sig/Chris Start ti me Last Medication Dose Route Stop Time Status Admin Sod ium Chloride 1,000 ML X1ED STA 02/20 1110 DC 02/20 I V 02/20 1209 1345 Patient Discharge Departure Vital Signs/ConditionVital SignsFirst Documented: Res ult Date Time Pulse Ox 100 02/20 1055 B/P 132/79 02/20 10 55 B/P Mean 96 02/20 1055 O2 Delivery Room air 02/20 1055 Te mp 36.8 02/20 1055 Pulse 93 02/20 1055 Resp 18 02/20 105 5 Last Documented: Result Date Time Pulse Ox 100 02/20 1400 B/P 129/72 02/20 1400 B/P Mean 91 02/20 1400 O2 Deli very Room air 02/20 1400 Pulse 94 02/20 1400 Resp 18 10 3 1400 Temp 36.8 02/20 1055 All vital signs available at the time of this entry have been reviewed. Clinical Impressi onClinical ImpressionPrimary Impression: ColitisSecondary I mpressions: Anemia, Dehydration, Diabetes, Difficult intrave nous access, Hypertension Disposition DecisionAdmit A dmit Physician Name Erasmo Fay MD Admit [facility] Hospitalist Request Time 142 Request Date 02/20 )( Admission Accepts Yes )( Accepted Time 1425 )( A ccepted Date 02/20/22 Critical CareTime Spent (minutes): 35Services Performed Patient management by me, Time spent a t bedside, Reviewing test results, Reviewing imaging, Discu ssing patient care, Documentation in record, Time with fam/surrogateSeparately billable procedures excl uded from time.Patient was critically ill due to:Severe de hydration, colitis, elderly patient with extremely difficul t IV accessMy treatment and management were:Multiple IV access attempt, ultrasound IV, labs, imaging, admission CC Note 1Total critical care time 35 minutes. Total crit ical care time documented does not include time spent on s eparately billed procedures or the services of residents, students, nurses or physician assistants. I personally saw and examined the patient. I have reviewed all diagno stic interpretations and treatment plans as written. I was present for the ingram portions of any procedurespe rformed and the inclusive time noted in any critical care st atement. Critical care time includes patient management b y me, time spent at the patients bedside,time to review lab and imaging results, discussing patient care, docume ntation in the medical record, and time spent with the fami ly or caregiver. at 1635RPT #:[id number] OF REPORTEDEmernorthwest medical center department [id number]:13:[id number] vailable for patient [id number]:35:3 3 2022-02-11 [id number] [facility] HCANC 16:59:00 [place] [id number] [facility] [id number] PATIENT NAME: DANIELE HINKLE ADMIT Sharlene ATE: 01[birth year]ACCOUNT NO: [id number] ROOM NO: NC.210 3 AGE: 71 REPORT TYPE: 360 - QUERY RESPONSE DOCUMENT SEX: F ADMITTING PHYSICIAN:Erasmo Fay MD ATTENDING PHYSICIAN:Erasmo Fay MD Provider Query QUERY TEXT: Relationship Diagnoses General 360MD Query relat ed questions should be directed to:[facility] Coding Query Helpline Please clarify the relat ionship, if any, between [ISepsis] and [Respiratory failure] . The patient's Clinical Indicators include:Acute resp iratory failure with hypoxia-Pulmonology Progress Note 1 (2)Sepsis-Pulmonology Progress Note 02/08/2022 ( 1)Heart rate: Yes-Severe Sepsis + 2Respirations : Yes-Severe Sepsis + 2Ceftriaxone-MAROpt ions provided:-- Yes-- No-- Other - I will add my own diagnosis-- Dismiss - Not applicable / Not valid -- Dismiss - Clinically unable to determine / Unknown-- Ass ign to another provider QUERY RESPONSE: acute respirato ry failure due to DKA with coma Query created by: Tomas Christianson on 02/11/2022 5:17 AM Electronicall y Signed by Erasmo Fay MD on 02/11/22 at 1659 [facility] NAME: DANIELE HINKLE inical [id number] for patient [id number]:00:52 2022-02-08 [id number]:36:00 [facility]Med Order Sheet REPORT #: [id number] REPORT STATUS: Signed DATE: 02/08/22 TIME: 1536 PATIENT : DANIELE HINKLE UNIT #: [id number] # : [id number] ROOM #: NC.2103 BED: 1 : 3 AGE: 71 SEX: F ATTEND: Erasmo Fay MD ADM DT: AUTHOR: Britney Winchester DO ATTENTION EDITS and/or ADDENDA must be made i n Patient Keeper for this note. Edits and ammendments c reated in [facility] are not visible in Patient Keeper or the legal medical record (HPF). Discharge Medication Reconciliatio n DISCHARGE MEDICATION LISTDonepezil Tab (Aricept Tab) Dose: 5MG PO BEDTIME, Disp: 30 tablet, Refills: 0Fluconazole Tab (Diflucan Tab) Dose: 100MG PO DAILY, Disp: 5 tab let, Refills: 0Insulin (Glargine) Inj (Lantus Inj) Do se: 18UNITS SUBQ QAMInsulin Lispro InJ (HumaLOG Inj) Dose: 0 UNITS SUBQ AC HS STOPPED HOSPITAL MEDICATIONSDc'd: Acetamin ophen Oral Liquid (Tylenol Oral Liquid) 650MG FEED-TUBE Q6H PRNheadache/temp>101Dc'd: Albuterol/Ipratrop Neb Soln (Duoneb Neb Soln) 3ML CQFUTT6R PRN wheezing / sh ortness of breathDc'd: Cefdinir Cap (Omnicef Cap)300MG PO B IDDc'd: Dextrose Chewable Tab (Glucose Chewable Tab) 16G M PO ASDIRPRN hypoglycemia protocolDc'd: Docusate Sod ium Cap (Colace Cap) 100MG POBID PRN constipationDc'd: G lucagon Inj (Glucagon Inj) 1MG IM ASDIRDc'd:Heparin Inj 5000 UNIT SUBQ Q14YNKu'd: hydrALAZINE Inj (Apresoline Inj) 10MG IVQ4HR PRN sbp > 160Dc'd: HYDROcodone/APAP 10/325 Tab (Norc o 10/325 Tab) 1TABPO Q6H PRN pain scale 7-10Dc'd: Hydroco rtisone Acetate Supp (Anusol HC Supp)1SUPP RECTAL BIDDc' d: Labetalol Inj (Trandate Inj) 10MG IV Q2H PRN sbp > 160 hr > 70Dc'd: Lactulose Oral Liquid (Enulose Oral Liqu id) 30ML PO BID PRNconstipationDc'd: Magnesium Sulfate 1Gm I VPB (Magnesium Sulfate 1Gm IVPB) [id number] MLS/HR IV DIR PRN mag 2.2-2.9Dc'd: Magnesium Sulfate 1Gm IVPB(Magnesiu m Sulfate 1Gm IVPB) 3GM 300 MLS/HR IV ASDIR X 3 doses PRN mag2-2.1Dc'd: Magnesium Sulfate 1Gm IVPB (Magnes ium Sulfate 1Gm IVPB) 4GM 400MLS/HR IV ASDIR PRN mag 1.6-1.9 Dc'd: Magnesium Sulfate 1Gm IVPB (MagnesiumSulfate 1Gm IVPB) 5GM 500 MLS/HR IV ASDIR X 5 doses PRN mg less than1. 6Dc'd: Metoprolol Tartrate Tab (Lopressor Tab) 12.5MG P O E12UWEs'd:Polyethylene Glycol Powder (Miralax Po wder) 1PKT PO DAILYDc'd: PolyethyleneGlycol Powder (Miralax Powder) 1PKT PO DAILY PRN constipationDc'd: PotassiumChl oride 20mEq IVPB (KCL 20mEq IVPB) 20MEQ 100 MLS/HR IV ASDIRD c'd: PotassiumEffervescent Tab (Effer-K Tab Effervesc ent) 20MEQ PO ASDIRDc'd: SodBiphos/Potas Phos Packet (Neutr a-Phos Packet) 1PKT PO ASDIR PRN phosphorussliding scal eDc'd: Sodium Phosphate Inj (Sodium Phosphate Inj) 15MM IV ASDIRPRN phosphorus sliding scalein Sodium Chlor lan 0.9% (NS) 250MLDc'd: Sodium Phosphate Inj (Sodium Jumana sphate Inj) 20MM IV ASDIR PRNphosphorus sliding scalein Sodi um Chloride 0.9% (NS) 250MLDc'd: Sodium Phosphate Inj (Sodiu m Phosphate Inj) 30MM IV ASDIR PRN phosphorus sliding scalei n Sodium Chloride 0.9% (NS) 500MLDc'd: Zinc Oxide Ointmen t (Zinc Oxide Ointment) 1APPLIC TOPICALBID :35 Electronically Signed by Briteny Winchester DO on at 1536ATTENTION EDITS and/or ADDENDA must be ma de in Patient Keeper for this note. Edits and ammen dments created in [facility] are not visible in Patien t Keeper or the legal medical record ([facility]). RPT #: [id number] OF REPORT CLClinical [id number]:36:[id number] Available for patient [id number]:37:0 5 2022-02-08 [id number]:11:00 [facility] EDICAL HCANC 11:11:00 [place] ([facility])Pulmonology Progress Note REPORT # : [id number] REPORT STATUS: Signed DATE: 02/08/22 TIME: 1111 PATIENT: DANIELE HINKLE UNIT #: [id number] # : [id number] ROOM #: NC.2103 BED: 1 : 3 AGE: 71 SEX: F ATTEND: Erasmo Fay MD ADM DT: AUTHOR: Dheeraj Sanders MD ATTENTION EDITS and/or ADDENDA must be made i n Patient Keeper for this note. Edits and ammendments c reated in [facility] are not visible in Patient Keeper or the legal medical record ([facility]). -- ASSESSMENT AND PLAN -- GENERAL ASSESSMENT: [facility] AssessmentAcute respirat ory failure with hypoxiaDKA, with comaAcute metabolic encephalopathyAnion-gap metabolic acidosisAcute renal failureSepsisPseudohyponatremiaconstipationDMHTN Dyslipidemi a Plan:Pulmonary: desaturated to 40s w/ bradycar tati worsening mentation in ER, emergentlyintubated i n ED, extubated 01/31 AMChest x-ray 02/01 with clear ludwin gsOn room air, use O2 as needed to keep sats more than 92% Has as needed bronchodilatorsRocephin discontinued now on cefdinirCultures reviewed, Urine culture positiv e for yeastMental status improved; does have baseline dementiaRenal function/electrolytes improvedUnco ntrolled DM, endocrine following . Currently patient is o n room air. No pulmonary symptoms. Chest x-ray showedclear l ade morocho. She is cleared for discharge from pulmonary [facility]. D/wCM about home PT VTE ppx: Heparin SubjectiveNoted billie nts, on room airFeels better HPI: Ms. Hinkle is a 71-yea r-old woman with a history of diabetes who presentswith acut e encephalopathy. Patient's blood sugar was report edly reading as"high" when her checked it tod ay. He called EMS, and the patient wasinitially refusin g transport to the ED but then acutely became altered. She w asbrought into the emergency department for evaluation --f ound to be in DKA withanion gap of 33, glucose of 976, and pH of 6.96. Her eyes are open, sheresponds and appropriately . Cannot hold a conversation. PMedHx: HTN, DM, CAD, retin opathy, diabetic neuropathy, dyslipidemiaPSurgHx: Retina l surgery, hysterectomyFamily history: NoncontributorySocHx : Former smoker Review of systems: 14 point review of sys tems negative except for HPI Physical ExamGeneral: El mathew female, NADEyes: Anicteric scle марина.Mouth: MMMNeck: Supple.CV: RRR. Normal S1 and S2.Pulm: no wheezing or Rales appreciated. room airAbdomen: Soft, no evidence of tenderness.Extremities: No lower extremity edema .Skin: Warm, dry.Neuro: oriented x 2, underlying yael ia, moves all extremitiesPsych: normal mood. impulsive -- OBJECTIVE -- VITALS (02/07 11:11 - 02/08 11:11):Temperatur e C: 37.1 (36.8 - 37.2)Temperature source: OralPulse Rate 78 (69 - 86)Respiratory rate: 15 (15 - 18)BP: 122/64 (100 /52 - 124/71) I/Os (02/07 07:00 - 02/08 07:00):Net 600 Intake 600 -- DATA -- MEDICATIONS SODIUM PHOSPHATE with/in SODIUM CHLORIDE 0.9% 15 MM IV ASDIR (PRN)MAGNESIUM 5 GM IV ASDIR (PRN)ZINC OXIDE 1 APPLIC TOPICAL BIDHEPARIN SODI UM,PORCINE 5000 UNIT SUBQ [id number] 650 MG FEED-TU BE Q6H PRNFLUCONAZOLE 100 MG PO DAILY DONEPEZIL HCL 5 M G PO BEDTIMESOD BIPHOS/POT PHOSPHATE 1 PKT PO ASDIR (PRN)polyethylene glycoL 3350 1 PKT PO DAILY PRN DEXTROSE 16 GM PO ASDIR (PRN)MAGNESIUM 3 GM IV ASDIR (PRN)MA GNESIUM 2 GM IV ASDIR (PRN)INSULIN LISPRO 0 UNITS SUBQ AC HSMETOPROLOL TARTRATE 12.5 MG PO [id number] E HCL 10 MG IV Q4HR PRNMAGNESIUM 4 GM IV ASDIR (PRN)LABETALO L HCL 10 MG IV Q2H PRNSODIUM PHOSPHATE with/in SODIUM CHLORI DE 0.9% 20 MM IV ASDIR (PRN)LACTULOSE 30 ML PO BID PRNIPRATROPIUM/ALBUTEROL SULFATE 3 ML NEB RTQ4H PRNDOCUSATE SODIUM 100 MG PO BID PRNHYDROCORTISONE ACETATE 1 SUPP RECTAL BIDPOTASSIUM BICARBONATE/CIT AC 20 MEQ PO ASDIRpolyethylene glycoL 3350 1 PKT PO DAILYSODI UM PHOSPHATE with/in SODIUM CHLORIDE 0.9% 30 MM IV ASDIR (PRN)GLUCAGON 1 MG IM ASDIRPOTASSIUM CHLORIDE 20 MEQ IV ASDIRHYDROcodone BITARTRATE/APAP 1 TAB PO Q6H IA NCEFDINIR 300 MG PO BIDINSULIN GLARGINE 18 UNITS SUBQ QAM LABS CBC W/AUTO DIFF (02/08/22 09:49)WHITE BLOOD CELL 6.4 RED BLOOD CELL 3.19 LHEMOGLOBIN 9.4L LHEMATOCRIT 29.5L LME AN CELL VOLUME 93MEAN CELL HGB 29.5MEAN CELL HGB CONCENT RATION 31.9RED CELL DISTRIBUTION WIDTH 13.0PLATELET COU NT 410H HMEAN PLATELET VOLUME 9.8NEUTROPHIL % 66.7IMMAT URE GRANULOCYTE % 0.9LYMPHOCYTE % 20.7MONOCYTE % 9.1 EOSINOPHIL % 2.0BASOPHIL % 0.6NUCLEATED RBC % 0.0NEUTROPHIL # 4.25IMMATURE GRANULOCYTE # 0.060LYMPHOCYTE # 1.3 2 LMONOCYTE # 0.58EOSINOPHIL # 0.13BASOPHIL # 0.04NUCLEATED RBC # 0.000 GLU BED (02/08/22 07:53)GLUBED 297 H GLU B ED (02/07/22 20:01)GLUBED 114 H GLU BED (02/07/22 1 6:24) GLUBED 245 H GLU BED (02/07/22 11:18)GLUBED 228 H Signed in PatientKeeper by DHEERAJ SANDERS MD on 02/08/22 at 11:13 at 1113ATTENTION EDITS and/or ADDENDA must be ma de in Patient Keeper for this note. Edits and ammen dments created in [facility] are not visible in Patien t Keeper or the legal medical record ([facility]). RPT #: [id number] OF REPORT PRProgress [id number]:11:[id number] Available for patient [id number]:14:1 4 2022-02-08 [id number]:16:00 [facility] 10:16:00 [place] ([facility])Endocrinology Progress Note REPORT #: [id number] REPORT STATUS: Signed DATE: 02/08/22 T EDUARDO: 1016 PATIENT: DANIELE HINKLE UNIT #: [id number] ROOM #: NC.2103 BED: 1 : AGE: 71 SEX: F ATTEND: Erasmo Fay MD ADM DT: AUTHOR: Nini Doan MD ATTENTION EDITS and/or ADDENDA must be made i n Patient Keeper for this note. Edits and ammendments c reated in [facility] are not visible in Patient Keeper or the legal medical record ([facility]). -- ASSESSMENT AND PLAN -- PROBLEMS : 1: Type 1 diabetes mellitus with ketoacidosis without coma A/P: UNCONTROLLED (HGBA1C=>14%,HYPERGLYCEMIA) TYPE I DM IN DKA. DKA RESOLVED:RHV=579 HS GBOMUYX=655) . OBSERVE REVISED/INCREASED SQ BASAL/BOLUS INSULIN.MUST REEVES VE A BEDTIME SNACK. NEED TO CONFIRM BEDSIDE GLUCOSE H YPOGLYCEMIA WITHLAB GLUCOSE. -- SUBJECTIVE -- CHIEF COMPLAINT:HYPERGLYCEMIA,DKA HPI: OUT OF ICU. JAMEL ERATING DIET. SHE DID HAVE A BEDTIMESNACK. -REVIEW OF SY STEMS- GENERAL: Negative for feverRESPIRATORY: Negative for dyspneaCARDIOVASCULAR: Negative for chest painGASTROINTESTINAL: Negative for abdominal tonia n or nausea.ENDOCRINE: Negative for polydipsia, polyu yamile -- OBJECTIVE -- VITALS (02/07 10:16 - 02/08 10:16): Temperature C: 37.1 (36.8 - 37.2)Temperature source: OralPul se Rate 78 (69 - 86)Respiratory rate: 15 (15 - 18)BP: 122/6 4 (100/52 - 124/71) I/Os (02/07 07:00 - 02/08 07:00):Net 600 Intake 600 -EXAM- GENERAL: Well developed, well nourished, in no apparent distress. THINHEAD: Normocephalic, atraumatic.NECK: trachea midline. CHEST: Grossly normal appearance.LUNGS: NORMAL CHEST WALL MOVEMENTHEAR T: NO TACHYCARDIAABDOMEN: NON-DISTENDEDNEUROLOGICAL: N ORMAL SPEECHPSYCHIATRIC: Alert and oriented to time, p erson, place. -- DATA -- MEDICATIONS SODIUM PHOSPHATE w ith/in SODIUM CHLORIDE 0.9% 15 MM IV ASDIR (PRN)MAGNESI UM 5 GM IV ASDIR (PRN)ZINC OXIDE 1 APPLIC TOPICAL BIDHEPARI N SODIUM,PORCINE 5000 UNIT SUBQ [id number] 650 MG FEED-TUBE Q6H PRNFLUCONAZOLE 100 MG PO DAILYDONE PEZIL HCL 5 MG PO BEDTIMESOD BIPHOS/POT PHOSPHATE 1 PKT PO A SDIR (PRN)polyethylene glycoL 3350 1 PKT PO DAILY PRN DEXTROSE 16 GM PO ASDIR (PRN)MAGNESIUM 3 GM IV ASDIR (PRN)MA GNESIUM 2 GM IV ASDIR (PRN)INSULIN LISPRO 0 UNITS SUBQ AC HSMETOPROLOL TARTRATE 12.5 MG PO [id number] E HCL 10 MG IV Q4HR PRNMAGNESIUM 4 GM IV ASDIR (PRN)LABETALO L HCL 10 MG IV Q2H PRNSODIUM PHOSPHATE with/in SODIUM CHLORI DE 0.9% 20 MM IV ASDIR (PRN)LACTULOSE 30 ML PO BID PRNIPRATROPIUM/ALBUTEROL SULFATE 3 ML NEB RTQ4H PRNDOCUSATE SODIUM 100 MG PO BID PRNHYDROCORTISONE ACETATE 1 SUPP RECTAL BIDPOTASSIUM BICARBONATE/CIT AC 20 MEQ PO ASDIRpolyethylene glycoL 3350 1 PKT PO DAILYSODI UM PHOSPHATE with/in SODIUM CHLORIDE 0.9% 30 MM IV ASDIR (PRN)GLUCAGON 1 MG IM ASDIRPOTASSIUM CHLORIDE 20 MEQ IV ASDIRHYDROcodone BITARTRATE/APAP 1 TAB PO Q6H IA NCEFDINIR 300 MG PO BIDINSULIN GLARGINE 18 UNITS SUBQ QAM LABS CBC W/AUTO DIFF (02/08/22 09:49)WHITE BLOOD CELL 6.4 RED BLOOD CELL 3.19 LHEMOGLOBIN 9.4L LHEMATOCRIT 29.5L LME AN CELL VOLUME 93MEAN CELL HGB 29.5MEAN CELL HGB CONCENT RATION 31.9RED CELL DISTRIBUTION WIDTH 13.0PLATELET COU NT 410H HMEAN PLATELET VOLUME 9.8NEUTROPHIL % 66.7IMMATU RE GRANULOCYTE % 0.9LYMPHOCYTE % 20.7MONOCYTE % 9.1 EOSINOPHIL % 2.0 BASOPHIL % 0.6NUCLEATED RBC % 0.0NEUTROPHI L # 4.25IMMATURE GRANULOCYTE # 0.060LYMPHOCYTE # 1. 32 LMONOCYTE # 0.58EOSINOPHIL # 0.13BASOPHIL # 0.04 NUCLEATED RBC # 0.000 GLU BED (02/08/22 07:53)GLUBED 297 H GLU BED (02/07/22 20:01)GLUBED 114 H GLU BED (02/07/22 1 6:24)GLUBED 245 H GLU BED (02/07/22 11:18)GLUBED 228 H -- A TTESTATION -- TIME SPENT ON PATIENT CARE: - Direct 30 minut es CARE ACTIVITIES / CARE COORDINATION: - I have reviewe d the history and repeated the ingram elements - I have s een and examined this patient - I have reviewed the prog ress in the clinical course since the lastexamination - I reeves ve discussed the patient's condition with other mem bers of the care team ADDITIONAL DETAIL:I HAVE SPENT 30 DELIA SUSAN IN THE EVALUATION AND TREATMENT OF THIS PATIENT. Signed in PatientKeeper by Nini Doan MD on 03/22 at 10:18 at 1018ATTENTION EDITS and/or ADDENDA must be ma de in Patient Keeper for this note. Edits and ammen dments created in [facility] are not visible in Patien t Keeper or the legal medical record ([facility]PF). [facility] #: [id number] OF REPORT PRProgress [id number]:16:[id number] Available for patient [id number]:19:1 8 2022-02-07 [id number]:35:00 [facility] DICAL HCANC 21:35:00 [place] ([facility])Family Medicine Progress Note REPO RT #: [id number] REPORT STATUS: Signed DATE: 02/07/22 T EDUARDO: 2135 PATIENT: DANIELE HINKLE UNIT #: [id number] ROOM #: NC.2103 BED: 1 : 3 AGE: 71 SEX: F ATTEND: Erasmo Fay MD ADM DT: AUTHOR: Britney Winchester DO ATTENTION EDITS and/or ADDENDA must be made i n Patient Keeper for this note. Edits and ammendments c reated in [facility] are not visible in Patient Keeper or the legal medical record ([facility]). -- ASSESSMENT AND PLAN -- PROBLEMS : 1: Respiratory failure with hypoxiaA/P: was intubat ed and off of sedation prior to being extubatednow breathin g well 2: Type 1 diabetes mellitus with ketoacidosis, uncontrolledA/P: likely due to missing medicatio ns endocrine consulted glucose levels have been cor rected, anion gap resolved, insulin drip stoppedneeds to eat all meals and night time snack doing well. DC planni ng, home with home health vs SNF - will plan on SNF. 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 5: Diabetic visual loss: better eye: profound visio n impairment; lesser eye:near-total vision impairm ent, with macular edema, with retinopathy, associatedwith type 1 diabetes mellitus 6: Mixed hyperlipidemia 7: Hyp ertension 8: CAD (coronary artery disease) 9: Peripheral a rterial disease 10: Chronic kidney disease, stage 3aA/P: due to DM 11: UTI (urinary tract infection)A/P: abxculture growing yeast - add diflucanchange from cefipime to ceft riaxone 12: Overactive bladderA/P: 13: Acute metabolic encephalopathyA/P: due to DKA,possible anoxic in jury 14: Elevated liver function testsA/P: trend levels m uch improved 15: HypokalemiaA/P: resolved 16: Consti pationA/P: miralax/colace 17: Rectal painA/P: start anusol 18: Cognitive impairmentA/P: eval for dementia as ou tpatient when acute metabolic issues havestabilized dispo : pending snf approval -- SUBJECTIVE -- PATIENT NARRATIVE: awaiting placement. no hypoglycemic episodes. rectal pain better -REVIEW OF SYSTEMS- GENERAL: Negative for fever, chills,RESPIRATORY: Negative for shortness of br eath, cough, chest congestion, wheezing, hemoptysis, a nd pleuritic painCARDIOVASCULAR: Negative for chest pain, palpitations, dyspnea on exertion, orthopnea, e zaki and dizzinessGASTROINTESTINAL: Negative for abdomina l pain, nausea, vomiting, diarrhea, , and anorexia; + co nstipation -- OBJECTIVE -- VITALS (02/06 21:35 - 02/07 21:35):Temperature C: 37.1 (36.5 - 37.1)Temperat ure source: OralPulse Rate 77 (69 - 82)Respiratory rate: 18 (14 - 18)BP: 118/56 (99/52 - 155/79) -EXAM- GENERAL: W ell developed, well nourished, in no apparent distre ss.NECK: No masses, no thyromegaly, no abnormal cervical nod es, trachea midline.LUNGS: Respirations unlabored, c lear to auscultation bilaterally, no wheezing, no ronchi , no ralesHEART: Regular rate and rhythm, normal S1, S2, no murmurs, no rubs, no gallops, no clicks.ABDOMEN: + BS soft, flat, nontender, the liver and spleen are not pa lpable, no palpable masses, no herniasMUSCULOSKELETAL: No o bvious deformitiesEXTREMITIES: No clubbing, cyanosis or edemaNEUROLOGICAL: alert and oriented to person and place, answers questions appropriately , moves all ext symetricallt, normal speechSKIN: No pallor, no j aundice, no rash, normal turgorLYMPH NODES: None palpable ce rvical, axillary, supraclavicular or inguinal locations -- DATA -- MEDICATIONS SODIUM PHOSPHATE with/in SODIUM CHLO RIDE 0.9% 15 MM IV ASDIR (PRN)MAGNESIUM 5 GM IV ASDIR (PRN )ZINC OXIDE 1 APPLIC TOPICAL BIDHEPARIN SODIUM,PORCINE 5000 UNIT SUBQ [id number] 650 MG FEED-TUBE Q6H PRNFLUCO NAZOLE 100 MG PO DAILYDONEPEZIL HCL 5 MG PO BEDTIMESOD BIPH OS/POT PHOSPHATE 1 PKT PO ASDIR (PRN)polyethylene glyco L 3350 1 PKT PO DAILY PRNDEXTROSE 16 GM PO ASDIR (PRN)MAG NESIUM 3 GM IV ASDIR (PRN)MAGNESIUM 2 GM IV ASDIR (PRN)INSUL IN LISPRO 0 UNITS SUBQ AC HSMETOPROLOL TARTRATE 12.5 MG PO [id number] HCL 10 MG IV Q4HR PRNMAGNESIUM 4 GM IV ASDIR (PRN)LABETALOL HCL 10 MG IV Q2H PRNSODIUM PHOSPHATE with/in SODIUM CHLORIDE 0.9% 20 MM IV ASDIR (PRN )LACTULOSE 30 ML PO BID PRNINSULIN GLARGINE 16 UNITS SUBQ QAMIPRATROPIUM/ALBUTEROL SULFATE 3 ML NEB RTQ4H PRNDOCUSATE SODIUM 100 MG PO BID PRNHYDROCORTISONE ACETATE 1 SUPP RECTAL BIDPOTASSIUM BICARBONATE/CIT AC 20 MEQ PO ASDIRpolyethylene glycoL 3350 1 PKT PO DAILYSODI UM PHOSPHATE with/in SODIUM CHLORIDE 0.9% 30 MM IV ASDIR (PRN)GLUCAGON 1 MG IM ASDIRPOTASSIUM CHLORIDE 20 MEQ IV ASDIRHYDROcodone BITARTRATE/APAP 1 TAB PO Q6H IA NCEFDINIR 300 MG PO BID LABS GLU BED (02/07/22 20:01)GLUBE D 114 H GLU BED (02/07/22 16:24)GLUBED 245 H GLU BED ( 11:18)GLUBED 228 H GLU BED (02/07/22 07:42)GLUBE D 141 H CBC W/AUTO DIFF (02/07/22 04:35)WHITE BLOOD CELL 5.0 RED BLOOD CELL 2.92 LHEMOGLOBIN 8.6L LHEMATOCRIT 27.0L LME AN CELL VOLUME 93MEAN CELL HGB 29.5MEAN CELL HGB CONCENT RATION 31.9RED CELL DISTRIBUTION WIDTH 13.2PLATELET COU NT 325MEAN PLATELET VOLUME 9.8NEUTROPHIL % 48.8IMMATURE GRA NULOCYTE % 1.8 HLYMPHOCYTE % 28.0MONOCYTE % 17.6 HEOSINOPHI L % 3.0BASOPHIL % 0.8NUCLEATED RBC % 0.0NEUTROPHIL # 2.44IMMATURE GRANULOCYTE # 0.090LYMPHOCYTE # 1.4 0 LMONOCYTE # 0.88 HEOSINOPHIL # 0.15BASOPHIL # 0.04NUCLEATE D RBC # 0.000 BASIC METABOLIC PANEL (02/07/22 04:35)SODI UM 133L LPOTASSIUM 4.2CHLORIDE 100CARBON DIOXIDE 31ANIO N GAP 6.2 DGLUCOSE 67BLOOD UREA NITROGEN 15GLOMERULAR FILT RATION RATE >=60 max estimateCREATININE 1.1BUN/CREATININE R ATIO 13.6CALCIUM 8.6 Signed in PatientKeeper by BRITNEY AUSTIN DO on 02/08/22 at 05:50 at 0550ATTENTION EDITS and/or ADDENDA must be ma de in Patient Keeper for this note. Edits and ammen dments created in [facility] are not visible in Patigia t Keeper or the legal medical record (HPF). [facility] #: [id number] OF REPORT PRProgress [id number] Available for patient [id number] 5 2022-02-07 [id number]:40:00 [facility] 10:40:00 [facility] ([facility])Pulmonology Progress Note REPORT # : [id number] REPORT STATUS: Signed DATE: 02/07/22 TIME: 1040 PATIENT: DANIELE HINKLE UNIT #: [id number] # : [id number] ROOM #: NC.2103 BED: 1 : 3 AGE: 71 SEX: F ATTEND: Erasmo Fay MD ADM DT: AUTHOR: Dheeraj Sanders MD ATTENTION EDITS and/or ADDENDA must be made i n Patient Keeper for this note. Edits and ammendments c reated in [facility] are not visible in Patient Keeper or the legal medical record (HPF). -- ASSESSMENT AND PLAN -- GENERAL ASSESSMENT: [facility] AssessmentAcute respirat ory failure with hypoxiaDKA, with comaAcute metabolic encephalopathyAnion-gap metabolic acidosisAcute renal failureSepsisPseudohyponatremiaconstipationDMHTN Dyslipidemi a Plan:Pulmonary: desaturated to 40s w/ bradycar tati worsening mentation in ER, emergentlyintubated i n ED, extubated 01/31 AMChest x-ray 02/01 with clear ludwin gsOn room air, use O2 as needed to keep sats more than 92% Has as needed bronchodilatorsRocephin discontinued now on cefdinirCultures reviewed, Urine culture positiv e for yeastMental status improved; does have baseline dementiaRenal function/electrolytes improvedUnco ntrolled DM, endocrine following Discussed with family at bedside. Currently patient is on room air. Nopulmonary sy mptoms. Chest x-ray showed clear lung morocho. She is bimal ared fordischarge from pulmonary standpoint. D/w CM a bout home PT VTE ppx: Heparin SubjectiveNoted billie nts, on room airFeels better, able to ambulateWants to g o home HPI: Ms. Hinkle is a 71-year-old woman with a history of diabetes who presentswith acute encephalopathy. Patient's blood sugar was reportedly reading as"high" when her checked it today. He called EMS, and the patient wasinitially refusing transport to the ED but th en acutely became altered. She wasbrought into the emergenc y department for evaluation --found to be in DKA w ithanion gap of 33, glucose of 976, and pH of 6.96. Her e yes are open, sheresponds and appropriately. Cannot hold a conversation. PMedHx: HTN, DM, CAD, retinopathy, diabetic neuropathy, dyslipidemiaPSurgHx: Retinal surgery , hysterectomyFamily history: NoncontributorySocHx : Former smoker Review of systems: 14 point review of sys tems negative except for HPI Physical ExamGeneral: El mathew female, NADEyes: Anicteric scle марина.Mouth: MMMNeck: Supple.CV: RRR. Normal S1 and S2.Pulm: no wheezing or Rales appreciated. room airAbdomen: Soft, no evidence of tenderness.Extremities: No lower extremity edema .Skin: Warm, dry.Neuro: oriented x 2, underlying yael ia, moves all extremitiesPsych: normal mood. impulsive -- OBJECTIVE -- VITALS (02/06 10:43 - 02/07 10:43):Temperatur e C: 37.0 (36.5 - 37.1)Temperature source: OralPulse Rate 79 (74 - 96)Respiratory rate: 15 (14 - 16)BP: 155/79 (99/ 58 - 155/79) -- DATA -- MEDICATIONS SODIUM PHOSPHATE with/in SODIUM CHLORIDE 0.9% 15 MM IV ASDIR (PRN)MAGNESI UM 5 GM IV ASDIR (PRN)ZINC OXIDE 1 APPLIC TOPICAL BIDHEPARI N SODIUM,PORCINE 5000 UNIT SUBQ [id number] 650 MG FEED-TUBE Q6H PRNFLUCONAZOLE 100 MG PO DAILYDONE PEZIL HCL 5 MG PO BEDTIMESOD BIPHOS/POT PHOSPHATE 1 PKT PO A SDIR (PRN) polyethylene glycoL 3350 1 PKT PO DAILY PRNDEXTR OSE 16 GM PO ASDIR (PRN)MAGNESIUM 3 GM IV ASDIR (PRN)MAGNE SIUM 2 GM IV ASDIR (PRN)INSULIN LISPRO 0 UNITS SUBQ AC HSM ETOPROLOL TARTRATE 12.5 MG PO [id number] HCL 10 MG I V Q4HR PRNMAGNESIUM 4 GM IV ASDIR (PRN)LABETALOL HCL 10 MG IV Q2H PRNSODIUM PHOSPHATE with/in SODIUM CHLORIDE 0.9% 20 MM IV ASDIR (PRN)LACTULOSE 30 ML PO BID PRNINSULIN GLA RGINE 16 UNITS SUBQ QAMIPRATROPIUM/ALBUTEROL SULFATE 3 ML NEB RTQ4H PRNDOCUSATE SODIUM 100 MG PO BID PRNHYDROCORTISO NE ACETATE 1 SUPP RECTAL BIDPOTASSIUM BICARBONATE/CIT AC 20 MEQ PO ASDIRpolyethylene glycoL 3350 1 PKT PO DAILYSODI UM PHOSPHATE with/in SODIUM CHLORIDE 0.9% 30 MM IV ASDIR (PRN)GLUCAGON 1 MG IM ASDIRPOTASSIUM CHLORIDE 20 MEQ IV ASDIRHYDROcodone BITARTRATE/APAP 1 TAB PO Q6H IA NCEFDINIR 300 MG PO BID LABS GLU BED (02/07/22 07:42)GLUBE D 141 H CBC W/AUTO DIFF (02/07/22 04:35)WHITE BLOOD CELL 5. 0RED BLOOD CELL 2.92 LHEMOGLOBIN 8.6L LHEMATOCRIT 27.0L LME AN CELL VOLUME 93MEAN CELL HGB 29.5MEAN CELL HGB CONCENT RATION 31.9RED CELL DISTRIBUTION WIDTH 13.2PLATELET COU NT 325MEAN PLATELET VOLUME 9.8NEUTROPHIL % 48.8IMMATURE GRA NULOCYTE % 1.8 HLYMPHOCYTE % 28.0MONOCYTE % 17.6 HEOSINOPHI L % 3.0BASOPHIL % 0.8NUCLEATED RBC % 0.0NEUTROPHIL # 2.44IMMATURE GRANULOCYTE # 0.090LYMPHOCYTE # 1.4 0 LMONOCYTE # 0.88 HEOSINOPHIL # 0.15BASOPHIL # 0.04NUCLEAT ED RBC # 0.000 BASIC METABOLIC PANEL (02/07/22 04:35)SODI UM 133L LPOTASSIUM 4.2CHLORIDE 100CARBON DIOXIDE 31ANION GAP 6.2 D GLUCOSE 67BLOOD UREA NITROGEN 15GLOMERULAR FILTR ATION RATE >=60 max estimateCREATININE 1.1BUN/CREATININE RA MARCELA 13.6CALCIUM 8.6 GLU BED (02/06/22 19:39)GLUBED 9 9 GLU BED (02/06/22 16:17)GLUBED 294 H GLU BED (02/06/22 11:35)GLUBED 84 Signed in PatientKeeper by DHEERAJ NEGRON MD on 02/07/22 at 10:56 at 1056ATTENTION EDITS and/or ADDENDA must be ma de in Patient Keeper for this note. Edits and ammen dments created in [facility] are not visible in Patien t Keeper or the legal medical record ([facility]). RPT #: [id number] OF REPORT PRProgress [id number]:[id number] Available for patient [id number]:4 2 2022-02-07 [id number]:00 [facility] 08:46:00 [facility] ([facility])Endocrinology Progress Note REPORT #: [id number] REPORT STATUS: Signed DATE: 02/07/22 T EDUARDO: 0846 PATIENT: DANIELE HINKLE UNIT #: [id number] ROOM #: NC.2103 BED: 1 : 3 AGE: 71 SEX: F ATTEND: Erasmo Fay MD ADM DT: AUTHOR: Nini Doan MD ATTENTION EDITS and/or ADDENDA must be made i n Patient Keeper for this note. Edits and ammendments c reated in [facility] are not visible in Patient Keeper or the legal medical record ([facility]). -- ASSESSMENT AND PLAN -- PROBLEMS : 1: Type 1 diabetes mellitus with ketoacidosis without coma A/P: UNCONTROLLED (HGBA1C=>14%,HYPERGLYCEMIA) TYPE I DM IN DKA. DKA RESOLVED:FBS=67,141 HS GLUCOSE=99) . OBSERVE REVISED/DECREASED SQ BASAL/BOLUS INSULIN.MUST REEVES VE A BEDTIME SNACK. NEED TO CONFIRM BEDSIDE GLUCOSE H YPOGLYCEMIA WITHLAB GLUCOSE. DISCUSSED WITH NURSE. -- SUBJEC TIVE -- CHIEF COMPLAINT:HYPERGLYCEMIA,DKA HPI: OUT OF IC U. TOLERATING DIET. SHE DID HAVE A BEDTIMESNACK. -R PRABHAIEW OF SYSTEMS- GENERAL: Negative for feverRESPIRATORY: Negative for dyspneaCARDIOVASCULAR: Negative for chest painGASTROINTESTINAL: Negative for abdominal tonia n or nausea.ENDOCRINE: Negative for polydipsia, polyu yamile -- OBJECTIVE -- VITALS (02/06 08:46 - 02/07 08:46): Temperature C: 37.0 (36.5 - 37.1)Temperature source: OralPul se Rate 79 (74 - 96)Respiratory rate: 15 (14 - 16)BP: 155/7 9 (99/58 - 155/79) -EXAM- GENERAL: Well developed, well nou rished, in no apparent distress. THINHEAD: Normocephalic, atraumatic.NECK: trachea midline.CHEST: Grossly normal appearance.LUNGS: NORMAL CHEST WALL MOVEMENTHEAR T: NO TACHYCARDIAABDOMEN: NON-DISTENDED NEUROLOGICAL: NORMAL SPEECHPSYCHIATRIC: Alert and oriented to time, p erson, place. -- DATA -- MEDICATIONS SODIUM PHOSPHATE w ith/in SODIUM CHLORIDE 0.9% 15 MM IV ASDIR (PRN)MAGNESI UM 5 GM IV ASDIR (PRN)ZINC OXIDE 1 APPLIC TOPICAL BIDHEPARI N SODIUM,PORCINE 5000 UNIT SUBQ [id number] 650 MG FEED-TUBE Q6H PRNFLUCONAZOLE 100 MG PO DAILYDONE PEZIL HCL 5 MG PO BEDTIMESOD BIPHOS/POT PHOSPHATE 1 PKT PO A SDIR (PRN)polyethylene glycoL 3350 1 PKT PO DAILY PRN DEXTROSE 16 GM PO ASDIR (PRN)MAGNESIUM 3 GM IV ASDIR (PRN)MA GNESIUM 2 GM IV ASDIR (PRN)INSULIN LISPRO 0 UNITS SUBQ AC HSMETOPROLOL TARTRATE 12.5 MG PO [id number] E HCL 10 MG IV Q4HR PRNMAGNESIUM 4 GM IV ASDIR (PRN)LABETALO L HCL 10 MG IV Q2H PRNSODIUM PHOSPHATE with/in SODIUM CHLORI DE 0.9% 20 MM IV ASDIR (PRN)LACTULOSE 30 ML PO BID PRNIPRATROPIUM/ALBUTEROL SULFATE 3 ML NEB RTQ4H PRNDOCUSATE SODIUM 100 MG PO BID PRNHYDROCORTISONE ACETATE 1 SUPP RECTAL BIDPOTASSIUM BICARBONATE/CIT AC 20 MEQ PO ASDIRpolyethylene glycoL 3350 1 PKT PO DAILYSODI UM PHOSPHATE with/in SODIUM CHLORIDE 0.9% 30 MM IV ASDIR (PRN)GLUCAGON 1 MG IM ASDIRPOTASSIUM CHLORIDE 20 MEQ IV ASDIRHYDROcodone BITARTRATE/APAP 1 TAB PO Q6H IA NCEFDINIR 300 MG PO BIDINSULIN GLARGINE 16 UNITS SUBQ QAM LABS GLU BED (02/07/22 07:42)GLUBED 141 H CBC W/AUTO DIFF (02/07/22 04:35)WHITE BLOOD CELL 5.0RED BLOOD CELL 2.92 LH EMOGLOBIN 8.6L LHEMATOCRIT 27.0L LMEAN CELL VOLUME 93MEAN CELL HGB 29.5MEAN CELL HGB CONCENTRATION 31.9RED CELL DIS TRIBUTION WIDTH 13.2PLATELET COUNT 325MEAN PLATELET VOLUME 9.8NEUTROPHIL % 48.8IMMATURE GRANULOCYTE % 1.8 H LYMPHOCYTE % 28.0MONOCYTE % 17.6 HEOSINOPHIL % 3.0BASOPHIL % 0.8 NUCLEATED RBC % 0.0NEUTROPHIL # 2.44IMMATURE GR ANULOCYTE # 0.090LYMPHOCYTE # 1.40 LMONOCYTE # 0.88 HEOSINOP HIL # 0.15BASOPHIL # 0.04NUCLEATED RBC # 0.000 BASIC M ETABOLIC PANEL (02/07/22 04:35)SODIUM 133L LPOTASSIUM 4.2 CHLORIDE 100CARBON DIOXIDE 31ANION GAP 6.2 DGLUCOSE 67BLO OD UREA NITROGEN 15GLOMERULAR FILTRATION RATE >=60 max estimateCREATININE 1.1BUN/CREATININE RATIO 13.6C ALCIUM 8.6 GLU BED (02/06/22 19:39)GLUBED 99 GLU BED (02/06 16:17)GLUBED 294 H GLU BED (02/06/22 11:35)GLUBE D 84 CBC W/AUTO DIFF (02/06/22 09:17)WHITE BLOOD CELL 4.9 RED BLOOD CELL 3.06 LHEMOGLOBIN 8.9L LHEMATOCRIT 27.9L LM KAMI CELL VOLUME 91MEAN CELL HGB 29.1MEAN CELL HGB CONCENT RATION 31.9RED CELL DISTRIBUTION WIDTH 13.0PLATELET COU NT 308MEAN PLATELET VOLUME 9.8NEUTROPHIL % 48.7IMMATURE GRA NULOCYTE % 1.8 HLYMPHOCYTE % 26.9MONOCYTE % 19.1 HEOSINOPH IL % 2.9BASOPHIL % 0.6NUCLEATED RBC % 0.0NEUTROPHIL # 2.37IMMATURE GRANULOCYTE # 0.090LYMPHOCYTE # 1.3 1 LMONOCYTE # 0.93 HEOSINOPHIL # 0.14BASOPHIL # 0.03NUCLEATE D RBC # 0.000 RENAL FUNCTION PANEL (02/06/22 09:17)SODIU M 136POTASSIUM 3.7 CHLORIDE 102CARBON DIOXIDE 28AN ION GAP 9.7 DGLUCOSE 84BLOOD UREA NITROGEN 13GLOMERULAR FILT RATION RATE >=60 max estimateCREATININE 1.1BUN/CREATININE RA MARCELA 11.8 LALBUMIN 2.2 LCALCIUM 8.7CORRECTED CALCIUM 10.1P HOSPHOROUS 3.3CALCIUM-PHOSPHORUS PRODUCT 28.71 COMPREHENSIV E METABOLIC PANEL (02/06/22 09:17)SODIUM 136POTASSIUM 3.7CHL ORIDE 102CARBON DIOXIDE 28ANION GAP 9.7 DGLUCOSE 84BL OOD UREA NITROGEN 13GLOMERULAR FILTRATION RATE >=60 max estimateCREATININE 1.1BUN/CREATININE RATIO 11.8 LTOTAL PROTEIN 6.9ALBUMIN 2.2 LCALCIUM 8.7CORRECTED ABHINAV CIUM 10.1BILIRUBIN TOTAL 0.3SGOT/AST 43 HSGPT/ALT 35A LKALINE PHOSPHATASE 120 H -- ATTESTATION -- TIME SPENT O N PATIENT CARE: - Direct 30 minutes CARE ACTIVITIES / CARE COORDINATION: - I have reviewed the history and repeated the ingram elements - I have seen and examined this patient - I have reviewed the progress in the clinical cou rse since the lastexamination - I have discussed the blayne faria's condition with other members of the care team AD DITIONAL DETAIL:I HAVE SPENT 30 MINUTES IN THE EVALUATION AND TREATMENT OF THIS PATIENT. Signed in [facility] er by Nini Doan MD on 02/07/22 at 08:48 at 0848ATTENTION EDITS and/or ADDENDA must be ma de in Patient Keeper for this note. Edits and ammen dments created in [employer] are not visible in [facility] t Keeper or the legal medical record (HPF). [facility] #: [id number] OF REPORT PRProgress [id number] Available for patient [id number]:0 0 2022-02-06 [id number]:00 [facility] 22:46:00 [place] ([facility])Family Medicine Progress Note REPO RT #: [id number] REPORT STATUS: Signed DATE: 02/06/22 T EDUARDO: 2246 PATIENT: DANIELE HINKLE UNIT #: [id number] ROOM #: NC.2103 BED: 1 : 3 AGE: 71 SEX: F ATTEND: Erasmo Fay MD ADM DT: AUTHOR: Britney Winchester DO ATTENTION EDITS and/or ADDENDA must be made i n Patient Keeper for this note. Edits and ammendments c reated in [facility] are not visible in Patient Keeper or the legal medical record (HPF). -- ASSESSMENT AND PLAN -- PROBLEMS : 1: Respiratory failure with hypoxiaA/P: was intubat ed and off of sedation prior to being extubatednow breathin g well 2: Type 1 diabetes mellitus with ketoacidosis, uncontrolledA/P: likely due to missing medicatio ns endocrine consulted glucose levels have been cor rected, anion gap resolved, insulin drip stoppedneeds to eat all meals and night time snack doing well. ROB dominique , home with home health vs SNF - will plan on SNF. sitt er d/c'ed 3: Type 1 diabetes mellitus with diabetic chroni c kidney disease 4: Type 1 diabetes mellitus with diabeti c polyneuropathy 5: Diabetic visual loss: better e ye: profound vision impairment; lesser eye:near-tota l vision impairment, with macular edema, with retinopathy , associatedwith type 1 diabetes mellitus 6: Mixed hyperlipidemia 7: Hypertension 8: CAD (coronary artery disease) 9: Peripheral arterial disease 10: Loom Tuner neeta kidney disease, stage 3aA/P: due to DM 11: UTI (urinary tract infection)A/P: abxculture growing yeast - add di flucan change from cefipime to ceftriaxone 12: Overacti ve bladderA/P: 13: Acute metabolic encephalopathyA/ P: due to DKA,possible anoxic injury 14: Elevated liver fu nction testsA/P: trend levels much improved 15: Hypokal emiaA/P: resolved 16: ConstipationA/P: miralax/colace 17: Rectal painA/P: start anusol 18: Cognitive impairmentA/ P: eval for dementia as outpatient when acute metabolic issues havestabilized dispo: pending snf approval; cont adj of insulin per endo. encourage good pointake. -- LANDIN BJECTIVE -- PATIENT NARRATIVE:c/o rectal pain. had small BM earlier. no hypoglycemic episodes since yest -REVIEW OF [facility]- GENERAL: Negative for fever, chills,RESPIRATORY: Negative for shortness of breath, cough, chest congestion , wheezing, hemoptysis, and pleuritic painCARDIOVASCULAR: Ne gative for chest pain, palpitations, dyspnea on exertion, o rthopnea, edema and dizzinessGASTROINTESTINAL: Negative fo r abdominal pain, nausea, vomiting, diarrhea, , and anorexia ; + constipation -- OBJECTIVE -- VITALS (02/06 05:56 - 02/07 05:56):Temperature C: 36.8 (36.5 - 37.1)Temperat ure source: OralPulse Rate 80 (74 - 96)Respiratory rate: 14 (14 - 16)BP: 130/69 (99/58 - 143/81) -EXAM- GENERAL: W ell developed, well nourished, in no apparent distre ss.NECK: No masses, no thyromegaly, no abnormal cervical nod es, trachea midline.LUNGS: Respirations unlabored, clear to auscultation bilaterally, no wheezing, no ronchi , no ralesHEART: Regular rate and rhythm, normal S1, S2, no murmurs, no rubs, no gallops, no clicks.ABDOMEN: + BS soft, flat, nontender, the liver and spleen are not pa lpable, no palpable masses, no herniasMUSCULOSKELETAL: No o bvious deformitiesEXTREMITIES: No clubbing, cyanosis or edemaNEUROLOGICAL: alert and oriented to person and place, answers questions appropriately , moves all ext symetricallt, normal speechRECTAL: Normal rectal tone, +external hemorrhoids but soft and not erythematousGENITOURINARY: Normal external genit valentina.SKIN: No pallor, no jaundice, no rash, normal turgorLY MPH NODES: None palpable cervical, axillary, supraclavicula r or inguinal locations -- DATA -- MEDICATIONS SODIUM PHOSPHATE with/in SODIUM CHLORIDE 0.9% 15 MM IV ASDIR (PRN )MAGNESIUM 5 GM IV ASDIR (PRN)ZINC OXIDE 1 APPLIC TOPICAL B IDHEPARIN SODIUM,PORCINE 5000 UNIT SUBQ [id number] 650 MG FEED-TUBE Q6H PRNFLUCONAZOLE 100 MG PO DAILYINSU JANKI GLARGINE 18 UNITS SUBQ QAMDONEPEZIL HCL 5 MG PO BEDTIMESOD BIPHOS/POT PHOSPHATE 1 PKT PO ASDIR (PRN)polyeth ylene glycoL 3350 1 PKT PO DAILY PRNDEXTROSE 16 GM PO ASDIR (PRN)MAGNESIUM 3 GM IV ASDIR (PRN)MAGNESIUM 2 GM IV ASDIR (PRN)INSULIN LISPRO 0 UNITS SUBQ AC HSMETOPROLOL TARTRATE 12.5 MG PO [id number] HCL 10 MG IV Q4HR IA NMAGNESIUM 4 GM IV ASDIR (PRN)LABETALOL HCL 10 MG IV Q2H IA NSODIUM PHOSPHATE with/in SODIUM CHLORIDE 0.9% 20 MM IV ASDIR (PRN)LACTULOSE 30 ML PO BID PRNIPRATROPIUM/ALBUT SHELBY SULFATE 3 ML NEB RTQ4H PRNDOCUSATE SODIUM 100 MG PO BID PRNHYDROCORTISONE ACETATE 1 SUPP RECTAL BIDPOTAS SIUM BICARBONATE/CIT AC 20 MEQ PO ASDIRpolyethylene g lycoL 3350 1 PKT PO DAILYSODIUM PHOSPHATE with/in SODIUM CH LORIDE 0.9% 30 MM IV ASDIR (PRN)GLUCAGON 1 MG IM ASDIRPOTASS IUM CHLORIDE 20 MEQ IV ASDIRHYDROcodone BITARTRATE/A PAP 1 TAB PO Q6H PRNCEFDINIR 300 MG PO BID LABS CBC W/AUTO DIFF (02/07/22 04:35)WHITE BLOOD CELL 5.0RED BLOOD CE LL 2.92 LHEMOGLOBIN 8.6L L HEMATOCRIT 27.0L LMEAN CELL V OLUME 93MEAN CELL HGB 29.5MEAN CELL HGB CONCENTRATION 31.9RED CELL DISTRIBUTION WIDTH 13.2PLATELET COUNT 325ME AN PLATELET VOLUME 9.8NEUTROPHIL % 48.8IMMATURE GRANULOCYTE % 1.8 HLYMPHOCYTE % 28.0MONOCYTE % 17.6 HEOSINOPHIL % 3.0BASOPHIL % 0.8NUCLEATED RBC % 0.0NEUTROPHIL # 2.44IMMATU RE GRANULOCYTE # 0.090LYMPHOCYTE # 1.40 LMONOCYTE # 0.88 HEOSINOPHIL # 0.15BASOPHIL # 0.04NUCLEATED RBC # 0.000 GLU BED (02/06/22 19:39)GLUBED 99 GLU BED (02/06/22 16:17)GLUBED 294 H GLU BED (02/06/22 11:35)GLUBE D 84 CBC W/AUTO DIFF (02/06/22 09:17)WHITE BLOOD CELL 4.9 RED BLOOD CELL 3.06 LHEMOGLOBIN 8.9L LHEMATOCRIT 27.9L LME AN CELL VOLUME 91MEAN CELL HGB 29.1MEAN CELL HGB CONCENT RATION 31.9RED CELL DISTRIBUTION WIDTH 13.0PLATELET COU NT 308MEAN PLATELET VOLUME 9.8NEUTROPHIL % 48.7IMMATURE GRA NULOCYTE % 1.8 HLYMPHOCYTE % 26.9MONOCYTE % 19.1 HEOSINOPHI L % 2.9BASOPHIL % 0.6NUCLEATED RBC % 0.0NEUTROPHIL # 2.37IMMATURE GRANULOCYTE # 0.090LYMPHOCYTE # 1.3 1 LMONOCYTE # 0.93 HEOSINOPHIL # 0.14BASOPHIL # 0.03NUCLEATE D RBC # 0.000 RENAL FUNCTION PANEL (02/06/22 09:17)SODIU M 136POTASSIUM 3.7 CHLORIDE 102CARBON DIOXIDE 28AN ION GAP 9.7 DGLUCOSE 84BLOOD UREA NITROGEN 13GLOMERULAR FILTRATION RATE >=60 max estimateCREATININE 1.1BUN/CREATINI NE RATIO 11.8 LALBUMIN 2.2 LCALCIUM 8.7CORRECTED CALCIUM 10.1PHOSPHOROUS 3.3CALCIUM-PHOSPHORUS PRODUCT 28 .71 COMPREHENSIVE METABOLIC PANEL (02/06/22 09:17)SO DIUM 136POTASSIUM 3.7CHLORIDE 102CARBON DIOXIDE 28ANI ON GAP 9.7 DGLUCOSE 84BLOOD UREA NITROGEN 13GLOMERULAR FILT RATION RATE >=60 max estimateCREATININE 1.1BUN/CREATININE RA MARCELA 11.8 LTOTAL PROTEIN 6.9ALBUMIN 2.2 LCALCIUM 8.7CORREC SARAH BETH CALCIUM 10.1BILIRUBIN TOTAL 0.3SGOT/AST 43 HSGPT/ALT 35 ALKALINE PHOSPHATASE 120 H GLU BED (02/06/22 07:27)GLUBED 77 Signed in PatientKeeper by Britney Winchester DO on 02/07 at 05:58 at 0558ATTENTION EDITS and/or ADDENDA must be ma de in Patient Keeper for this note. Edits and ammen dments created in [employer] are not visible in Patien t Keeper or the legal medical record (HPF). RPT #: [id number] OF REPORT PRProgress [id number] Available for patient [id number] 5 2022-02-06 [id number] [facility])Endocrinology Progress Note REPORT #: [id number] REPORT STATUS: Signed DATE: 02/06/22 T EDUARDO: 1009 PATIENT: DANIELE HINKLE UNIT #: [id number] ROOM #: NC.2103 BED: 1 : 3 AGE: 71 SEX: F ATTEND: Erasmo Fay MD ADM DT: AUTHOR: Nini Doan MD ATTENTION EDITS and/or ADDENDA must be made i n Patient Keeper for this note. Edits and ammendments c reated in [facility] are not visible in Patient Keeper or the legal medical record (HPF). -- ASSESSMENT AND PLAN -- PROBLEMS : 1: Type 1 diabetes mellitus with ketoacidosis without coma A/P: UNCONTROLLED (HGBA1C=>14%,HYPERGLYCEMIA) TYPE I DM IN DKA. DKA RESOLVED:FBS=77 HS OAHSHOB=802 . OBSERVE SQ BASAL/BOLUS INSULIN. MUST HAVE A BEDTIMESNACK. NEED TO CONFI RM BEDSIDE GLUCOSE HYPOGLYCEMIA WITH LAB GLUCOSE. -- SUBJEC TIVE -- CHIEF COMPLAINT:HYPERGLYCEMIA,DKA HPI: OUT OF IC U. TOLERATING DIET. SHE DID HAVE A BEDTIMESNACK. -R EVIEW OF SYSTEMS- GENERAL: Negative for feverRESPIRATORY: Negative for dyspneaCARDIOVASCULAR: Negative for chest painGASTROINTESTINAL: Negative for abdominal tonia n or nausea.ENDOCRINE: Negative for polydipsia, poly uria -- OBJECTIVE -- VITALS (02/05 10:09 - 02/06 10:09): Temperature C: 36.8 (36.4 - 37.4)Temperature source: OralPul se Rate 74 (74 - 83)Respiratory rate: 16 (13 - 19)BP: 143/8 1 (122/54 - 143/81) -EXAM- GENERAL: Well developed, well nou rished, in no apparent distress. THINHEAD: Normocephalic, atraumatic.NECK: trachea midline.CHEST: Grossly normal appearance.LUNGS: NORMAL CHEST WALL MOVEMENTHEAR T: NO TACHYCARDIAABDOMEN: NON-DISTENDEDNEUROLOGICAL: N ORMAL SPEECH PSYCHIATRIC: Alert and oriented to time, person, place. -- DATA -- MEDICATIONS SODIUM PHOSPHATE w ith/in SODIUM CHLORIDE 0.9% 15 MM IV ASDIR (PRN)MAGNESI UM 5 GM IV ASDIR (PRN)ZINC OXIDE 1 APPLIC TOPICAL BIDHEPARI N SODIUM,PORCINE 5000 UNIT SUBQ [id number] 650 MG FEED-TUBE Q6H PRNFLUCONAZOLE 100 MG PO DAILYINSU JANKI GLARGINE 18 UNITS SUBQ QAMDONEPEZIL HCL 5 MG PO BEDTIMESOD BIPHOS/POT PHOSPHATE 1 PKT PO ASDIR (PRN)polyeth ylene glycoL 3350 1 PKT PO DAILY PRNDEXTROSE 16 GM PO ASDIR (PRN)MAGNESIUM 3 GM IV ASDIR (PRN)MAGNESIUM 2 GM IV ASDIR (PRN)INSULIN LISPRO 0 UNITS SUBQ AC HSMETOPROLOL TARTRATE 12.5 MG PO [id number] HCL 10 MG IV Q4HR IA NMAGNESIUM 4 GM IV ASDIR (PRN)LABETALOL HCL 10 MG IV Q2H IA NSODIUM PHOSPHATE with/in SODIUM CHLORIDE 0.9% 20 MM IV ASDIR (PRN)LACTULOSE 30 ML PO BID PRNIPRATROPIUM/ALBUT SHELBY SULFATE 3 ML NEB RTQ4H PRNDOCUSATE SODIUM 100 MG PO BID PRNPOTASSIUM BICARBONATE/CIT AC 20 MEQ PO ASDIRp olyethylene glycoL 3350 1 PKT PO DAILYSODIUM PHOSPHATE with/ in SODIUM CHLORIDE 0.9% 30 MM IV ASDIR (PRN)GLUCAGON 1 MG IM ASDIRPOTASSIUM CHLORIDE 20 MEQ IV ASDIRCEFDINIR 300 MG PO BID LABS GLU BED (02/06/22 07:27)GLUBED 77 GLU B ED (02/05/22 20:35)GLUBED 230 H GLU BED (02/05/22 1 6:34)GLUBED 123 H GLU BED (02/05/22 15:53)GLUBED 31 *L COMP REHENSIVE METABOLIC PANEL (02/05/22 12:48)SODIUM 135POTASS IUM 3.8CHLORIDE 100CARBON DIOXIDE 32ANION GAP 6.8GLU COSE 143H HBLOOD UREA NITROGEN 12GLOMERULAR FILTRATION RAT E >=60 max estimateCREATININE 1.1BUN/CREATININE RATIO 10.9 L TOTAL PROTEIN 7.0ALBUMIN 2.3 LCALCIUM 8.7BILIRUBIN TO TERRA 0.2SGOT/AST 61 HSGPT/ALT 42ALKALINE PHOSPHATASE 155 H CBC W/AUTO DIFF (02/05/22 12:48)WHITE BLOOD CELL 5.4 RED BLOOD CELL 3.33 LHEMOGLOBIN 9.7L LHEMATOCRIT 30.7L LME AN CELL VOLUME 92MEAN CELL HGB 29.1MEAN CELL HGB CONCEN TRATION 31.6RED CELL DISTRIBUTION WIDTH 13.2PLATELET COU NT 252MEAN PLATELET VOLUME 10.2NEUTROPHIL % 56.0IMMATURE GR ANULOCYTE % 1.3 HLYMPHOCYTE % 23.6MONOCYTE % 17.4 HEOSINOPHI L % 1.5BASOPHIL % 0.2NUCLEATED RBC % 0.0NEUTROPHIL # 3.00IMMATURE GRANULOCYTE # 0.070LYMPHOCYTE # 1.2 6 LMONOCYTE # 0.93 HEOSINOPHIL # 0.08BASOPHIL # 0.01NUCLEATE D RBC # 0.000 -- ATTESTATION -- TIME SPENT ON PATIENT CA RE: - Direct 30 minutes CARE ACTIVITIES / CARE COORDIN ATION: - I have reviewed the history and repeated the ingram e lements - I have seen and examined this patient - I have rev iewed the progress in the clinical course since the lastex amination - I have discussed the patient's condition with ot her members of the care team ADDITIONAL DETAIL:I HAVE SPENT 30 MINUTES IN THE EVALUATION AND TREATMENT OF THIS PATIENT. Signed in PatientKeeper by Nini Doan MD on 01/20 at 10:11 at 1011ATTENTION EDITS and/or ADDENDA must be ma de in Patient Keeper for this note. Edits and ammen dments created in [facility] are not visible in Patien t Keeper or the legal medical record ([facility]). [facility] #: [id number] OF REPORT PRProgress [id number] Available for patient [id number]:4 8 2022-02-05 [id number] [facility] DICAL FORMERLY [facility] 23:10:00 [place] ([facility])Family Medicine Progress Note REPO RT #: [id number] REPORT STATUS: Signed DATE: 02/05/22 T EDUARDO: 2310 PATIENT: DANIELE HINKLE UNIT #: [id number] ROOM #: NC.2103 BED: 1 : 3 AGE: 71 SEX: F ATTEND: Erasmo Fay MD ADM DT: AUTHOR: Britney Winchester DO ATTENTION EDITS and/or ADDENDA must be made i n Patient Keeper for this note. Edits and ammendments c reated in [facility] are not visible in Patient Keeper o r the legal medical record ([facility]). -- ASSESSMENT AND PLAN -- PROBLEMS : 1: Respiratory failure with hypoxiaA/P: was intubat ed and off of sedation prior to being extubatednow breathin g well 2: Type 1 diabetes mellitus with ketoacidosis, uncontrolledA/P: likely due to missing medicatio ns endocrine consulted glucose levels have been cor rected, anion gap resolved, insulin drip stoppedneeds to eat all meals and night time snack doing well. ROB ibarra, home with home health vs SNF - will plan on SNF. sitt er d/c'ed 3: Type 1 diabetes mellitus with diabetic chroni c kidney disease 4: Type 1 diabetes mellitus with diabeti c polyneuropathy 5: Diabetic visual loss: better e ye: profound vision impairment; lesser eye:near-tota l vision impairment, with macular edema, with retinopathy , associatedwith type 1 diabetes mellitus 6: Mixed hyperlipidemia 7: Hypertension 8: CAD (coronary artery disease) 9: Peripheral arterial disease 10: Loom Tuner neeta kidney disease, stage 3aA/P: due to DM 11: UTI (urinary tract infection)A/P: abxculture growing yeast - add di flucan change from cefipime to ceftriaxone 12: Overacti ve bladderA/P: 13: Acute metabolic encephalopathyA/ P: due to DKA,possible anoxic injury 14: Elevated liver fu nction testsA/P: trend levels much improved 15: Hypokal emiaA/P: resolved 16: Cognitive impairmentA/P: eval for d augusto as outpatient when acute metabolic issues havestabi lized dispo: pending snf approval; cont adj of insulin per endo. encourage good pointake. add colace/miralax -- S UBJECTIVE -- PATIENT NARRATIVE:hypoglycemic this morning. pt states she can not recall. not eating well. no bmin a f ew days -REVIEW OF SYSTEMS- GENERAL: Negative for fever, chills,RESPIRATORY: Negative for shortness of br eath, cough, chest congestion, wheezing, hemoptysis, a nd pleuritic painCARDIOVASCULAR: Negative for chest pain, palpitations, dyspnea on exertion, orthopnea, ed venancio and dizzinessGASTROINTESTINAL: Negative for abdomina l pain, nausea, vomiting, diarrhea, , and anorexia; + co nstipation -- OBJECTIVE -- VITALS (02/04 23:10 - 02/05 23:10):Temperature C: 37.4 (36.4 - 37.4)Temperat ure source: OralPulse Rate 83 (72 - 83)Respiratory rate: 13 (13 - 20)BP: 136/73 (123/61 - 154/88) -EXAM- GENERAL: Well developed, well nourished, in no apparent distr ess.NECK: No masses, no thyromegaly, no abnormal cervical nodes, trachea midline.LUNGS: Respirations unlabored, c lear to auscultation bilaterally, no wheezing, no ronchi , no ralesHEART: Regular rate and rhythm, normal S1, S2, no murmurs, no rubs, no gallops, no clicks. ABDOMEN : + BS soft, flat, nontender, the liver and spleen are not palpable, no palpable masses, no herniasMUSCULOS KELETAL: No obvious deformitiesEXTREMITIES: No clubbing, cya nosis or edemaNEUROLOGICAL: alert and oriented to person and place, answers questions appropriately , moves all ext symetricallt, normal speechSKIN: No pallor, no j aundice, no rash, normal turgorLYMPH NODES: None palpable ce rvical, axillary, supraclavicular or inguinal locations -- DATA -- MEDICATIONS SODIUM PHOSPHATE with/in SODIUM CHLO RIDE 0.9% 15 MM IV ASDIR (PRN)MAGNESIUM 5 GM IV ASDIR (PRN )INSULIN GLARGINE 20 UNITS SUBQ QAMZINC OXIDE 1 APPLIC TO PICAL BIDHEPARIN SODIUM,PORCINE 5000 UNIT SUBQ A73FSSS ETAMINOPHEN 650 MG FEED-TUBE Q6H PRNFLUCONAZOLE 100 MG PO DAILYDONEPEZIL HCL 5 MG PO BEDTIMESOD BIPHOS/POT PHOSPHATE 1 PKT PO ASDIR (PRN)polyethylene glycoL 3350 1 P KT PO DAILY PRNDEXTROSE 16 GM PO ASDIR (PRN)MAGNESIUM 3 GM I V ASDIR (PRN)MAGNESIUM 2 GM IV ASDIR (PRN)INSULIN LISPRO 0 UNITS SUBQ AC HSMETOPROLOL TARTRATE 12.5 MG PO X11FNde drALAZINE HCL 10 MG IV Q4HR PRNMAGNESIUM 4 GM IV ASDIR (IA N)LABETALOL HCL 10 MG IV Q2H PRNSODIUM PHOSPHATE with/in SOD IUM CHLORIDE 0.9% 20 MM IV ASDIR (PRN)LACTULOSE 30 M L PO BID PRNIPRATROPIUM/ALBUTEROL SULFATE 3 ML NEB RTQ4H PRNPOTASSIUM BICARBONATE/CIT AC 20 MEQ PO ASDIRS ODIUM PHOSPHATE with/in SODIUM CHLORIDE 0.9% 30 MM IV ASDIR (PRN)GLUCAGON 1 MG IM ASDIRPOTASSIUM CHLORIDE 20 MEQ IV ASDIRCEFDINIR 300 MG PO BID LABS GLU BED ( 20:35)GLUBED 230 H GLU BED (02/05/22 16:34)GLUBE D 123 H GLU BED (02/05/22 15:53)GLUBED 31 *L COMPREHENSIVE M ETABOLIC PANEL (02/05/22 12:48)SODIUM 135POTASSIUM 3.8CHL ORIDE 100CARBON DIOXIDE 32ANION GAP 6.8GLUCOSE 143H H BLOOD UREA NITROGEN 12GLOMERULAR FILTRATION RATE >=60 max estimateCREATININE 1.1BUN/CREATININE RATIO 10.9 LTOTAL PROTEIN 7.0ALBUMIN 2.3 LCALCIUM 8.7BILIRUBIN TOT AL 0.2SGOT/AST 61 HSGPT/ALT 42ALKALINE PHOSPHATASE 155 H CBC W/AUTO DIFF (02/05/22 12:48)WHITE BLOOD CELL 5.4 RED BLOOD CELL 3.33 LHEMOGLOBIN 9.7L LHEMATOCRIT 30.7L LM KAMI CELL VOLUME 92MEAN CELL HGB 29.1MEAN CELL HGB CONCENT RATION 31.6RED CELL DISTRIBUTION WIDTH 13.2PLATELET COU NT 252MEAN PLATELET VOLUME 10.2NEUTROPHIL % 56.0IMMATURE GR ANULOCYTE % 1.3 HLYMPHOCYTE % 23.6MONOCYTE % 17.4 HEOSINOPH IL % 1.5BASOPHIL % 0.2NUCLEATED RBC % 0.0NEUTROPHIL # 3.00IMMATURE GRANULOCYTE # 0.070LYMPHOCYTE # 1.2 6 LMONOCYTE # 0.93 HEOSINOPHIL # 0.08BASOPHIL # 0.01NUCLEATE D RBC # 0.000 GLU BED (02/05/22 07:55)GLUBED 226 H GLU B ED (02/05/22 06:00)GLUBED 87 GLU BED (02/05/22 05:2 9)GLUBED 30 *L Signed in PatientKeeper by Britney Winchester DO on 02/05/22 at 23:13 at 2313ATTENTION EDITS and/or ADDENDA must be ma de in Patient Keeper for this note. Edits and ammen dments created in [facility] are not visible in Patien t Keeper or the legal medical record ([facility]). RPT #: [id number] OF REPORT PRProgress [id number] Available for patient [id number]:1 0 2022-02-05 [id number]:00 [facility] 10:42:00 [place] ([facility])Endocrinology Progress Note REPORT #: [id number] REPORT STATUS: Signed DATE: 02/05/22 T EDUARDO: 1042 PATIENT: DANIELE HINKLE UNIT #: [id number] ROOM #: NC.2103 BED: 1 : AGE: 71 SEX: F ATTEND: Erasmo Fay MD ADM DT: AUTHOR: Nini Doan MD ATTENTION EDITS and/or ADDENDA must be made i n Patient Keeper for this note. Edits and ammendments c reated in [employer] are not visible in Patient Keeper o r the legal medical record ([facility]). -- ASSESSMENT AND PLAN -- PROBLEMS : 1: Type 1 diabetes mellitus with ketoacidosis without coma A/P: UNCONTROLLED (HGBA1C=>14%,HYPERGLYCEMIA) TYPE I DM IN DKA. DKA RESOLVED:WJD=354,87,30 HS TDOBZTP=479 . OBSE RVE SQ BASAL/BOLUS INSULIN. MUST HAVE ABEDTIME SNACK. N EED TO CONFIRM BEDSIDE GLUCOSE HYPOGLYCEMIA WITH LAB GL UCOSE. -- SUBJECTIVE -- CHIEF COMPLAINT:HYPERGLYCEMIA,DKA HPI: OUT OF ICU. TOLERATING DIET. AM HYPOGLYCEMIA NOTED (NOC LINICAL SYMPTOMS). SHE SAYS SHE DID HAVE A BEDTIME SNACK . -REVIEW OF SYSTEMS- GENERAL: Negative for feverRESPIRATO RY: Negative for dyspneaCARDIOVASCULAR: Negative for chest painGASTROINTESTINAL: Negative for abdominal tonia n or nausea.ENDOCRINE: Negative for polydipsia, polyu yamile -- OBJECTIVE -- VITALS (02/04 10:42 - 02/05 10:42): Temperature C: 36.4 (36.4 - 37.2)Temperature source: OralPul se Rate 81 (72 - 94)Respiratory rate: 17 (17 - 20)BP: 154/8 8 (104/61 - 154/88) -EXAM- GENERAL: Well developed, well nou rished, in no apparent distress. THINHEAD: Normocephalic, atraumatic.NECK: trachea midline.CHEST: Grossly normal appearance.LUNGS: NORMAL CHEST WALL MOVEMENTHEAR T: NO TACHYCARDIAABDOMEN: NON-DISTENDEDNEUROLOGICAL: N ORMAL SPEECH PSYCHIATRIC: Alert and oriented to time, person, place. -- DATA -- MEDICATIONS SODIUM PHOSPHATE w ith/in SODIUM CHLORIDE 0.9% 15 MM IV ASDIR (PRN)MAGNESI UM 5 GM IV ASDIR (PRN)INSULIN GLARGINE 20 UNITS SUBQ QAMZIN C OXIDE 1 APPLIC TOPICAL BIDHEPARIN SODIUM,PORCINE 5000 UN IT SUBQ G15ONCKUDZYHLKUPHX 650 MG FEED-TUBE Q6H PRNFLUCO NAZOLE 100 MG PO DAILYDONEPEZIL HCL 5 MG PO BEDTIMESOD BIPH OS/POT PHOSPHATE 1 PKT PO ASDIR (PRN)polyethylene glyco L 3350 1 PKT PO DAILY PRNDEXTROSE 16 GM PO ASDIR (PRN)MAG NESIUM 3 GM IV ASDIR (PRN)MAGNESIUM 2 GM IV ASDIR (PRN)METOP ROLOL TARTRATE 12.5 MG PO G96SAplfvIYXSQEV HCL 10 MG I V Q4HR PRNMAGNESIUM 4 GM IV ASDIR (PRN)LABETALOL HCL 10 MG IV Q2H PRNINSULIN LISPRO 0 UNITS SUBQ AC HSSODIUM PHOSP HATE with/in SODIUM CHLORIDE 0.9% 20 MM IV ASDIR (PRN )LACTULOSE 30 ML PO BID PRNIPRATROPIUM/ALBUTEROL SULFATE 3 ML NEB RTQ4H PRNPOTASSIUM BICARBONATE/CIT AC 20 MEQ PO ASDIRSODIUM PHOSPHATE with/in SODIUM CHLORIDE 0.9% 30 MM IV ASDIR (PRN)GLUCAGON 1 MG IM ASDIRPOTASSIUM CHLORIDE 20 MEQ IV ASDIRCEFDINIR 300 MG PO BID LABS GLU BED ( 07:55)GLUBED 226 H GLU BED (02/05/22 06:00)GLUBE D 87 GLU BED (02/05/22 05:29)GLUBED 30 *L GLU BED ( 20:56)GLUBED 122 H GLU BED (02/04/22 16:54)GLUBE D 80 GLU BED (02/04/22 11:50)GLUBED 225 H -- ATTESTATION -- TIME SPENT ON PATIENT CARE: - Direct 30 minutes CARE ACTIVITIES / CARE COORDINATION: - I have reviewed the histo ry and repeated the ingram elements - I have seen and exam ined this patient - I have reviewed the progress in the cl inical course since the lastexamination - I have discus sed the patient's condition with other members of the ca re team ADDITIONAL DETAIL:I HAVE SPENT 30 MINUTES IN THE EVALUATION AND TREATMENT OF THIS PATIENT. Signed in Patient Keeper by Nini Doan MD on 02/05/22 at 10:45 at 1045ATTENTION EDITS and/or ADDENDA must be ma de in Patient Keeper for this note. Edits and ammen dments created in [employer] are not visible in Patien t Keeper or the legal medical record ([facility]). RPT #: [id number] OF REPORT PRProgress [id number] Available for patient [id number]:3 3 2022-02-04 [id number]:33:00 [facility] 23:33:00 [place] ([facility])Family Medicine Progress Note REPO RT #: [id number] REPORT STATUS: Signed DATE: 02/04/22 T EDUARDO: 2333 PATIENT: DANIELE HINKLE UNIT #: [id number] ROOM #: NC.2103 BED: 1 : 3 AGE: 71 SEX: F ATTEND: Erasmo Fay MD ADM DT: AUTHOR: Britney Winchester DO ATTENTION EDITS and/or ADDENDA must be made i n Patient Keeper for this note. Edits and ammendments c reated in [facility] are not visible in Patient Keeper or the legal medical record ([facility]). -- ASSESSMENT AND PLAN -- PROBLEMS : 1: Respiratory failure with hypoxiaA/P: was intubat ed and off of sedation prior to being extubatednow breathin g well 2: Type 1 diabetes mellitus with ketoacidosis, uncontrolledA/P: likely due to missing medicatio ns endocrine consulted glucose levels have been cor rected, anion gap resolved, insulin drip stopped doing w ell. DC planning, home with home health vs SNF - will pl an on SNF. sitter d/c'ed 3: Type 1 diabetes mellitus with d iabetic chronic kidney disease 4: Type 1 diabetes mellit us with diabetic polyneuropathy 5: Diabetic visual loss: better eye: profound vision impairment; lesser eye:near -total vision impairment, with macular edema, with reti nopathy, associatedwith type 1 diabetes mellitus 6: Mixed hyperlipidemia 7: Hypertension 8: CAD (coronary artery disease) 9: Peripheral arterial disease 10: Loom Tuner neeta kidney disease, stage 3aA/P: due to DM 11: UTI (urinary tract infection)A/P: abxculture growing yeast - add di flucan change from cefipime to ceftriaxone 12: Overacti ve bladderA/P: 13: Acute metabolic encephalopathyA/ P: due to DKA,possible anoxic injury 14: Elevated liver fu nction testsA/P: trend levels much improved 15: Hypokal emiaA/P: resolved 16: Cognitive impairmentA/P: eval for d ementia as outpatient when acute metabolic issues havestabi lized dispo: pending snf approval -- SUBJECTIVE -- PAT IEAYAN NARRATIVE:sitting up in chair w family at bedsid e. discussed seriousness of herpresenting illness a nd need for more support for recovery. voiced understanding -REVIEW OF SYSTEMS- GENERAL: Negative for fever, chills,RES PIRATORY: Negative for shortness of breath, cough, chest c ongestion, wheezing, hemoptysis, and pleuritic painCARDIOVA SCULAR: Negative for chest pain, palpitations, dyspnea o n exertion, orthopnea, edema and dizzinessGASTROINTESTINAL: Negative for abdominal pain, nausea, vomiting, diarrhea, , and anorexia; + constipation -- OBJECTIVE -- VITALS (02/04 05:51 - 02/05 05:51):Temperature C: 37.2 (36.6 - 37.2)Temperature source: OralPulse Rate 72 (72 - 94)Respiratory rate: 20 (18 - 20)BP: 125/61 (104 /61 - 131/75) I/Os (02/03 07:00 - 02/04 07:00):Net 400 Intake 400 -EXAM- GENERAL: Well developed, well nourished, in no apparent distress.NECK: No masses, no thyromegal y, no abnormal cervical nodes, trachea midline.LUNGS: Respirations unlabored, clear to auscultation bi laterally, no wheezing, no ronchi, no ralesHEART: Regular r ate and rhythm, normal S1, S2, no murmurs, no rubs, no g allops, no clicks.ABDOMEN: + BS soft, flat, nontender, the liver and spleen are not palpable, no palpable masses, no herniasMUSCULOSKELETAL: No obvious deformitiesEX TREMITIES: No clubbing, cyanosis or edemaNEUROLOGICAL: aler t and oriented to person and place, answers questions appropriately , moves all ext symetricallt, norm al speechSKIN: No pallor, no jaundice, no rash, no rmal turgorLYMPH NODES: None palpable cervical, axill amador, supraclavicular or inguinal locations -- DATA -- MEDICATIONS SODIUM PHOSPHATE with/in SODIUM CHLO RIDE 0.9% 15 MM IV ASDIR (PRN)MAGNESIUM 5 GM IV ASDIR (PRN )INSULIN GLARGINE 20 UNITS SUBQ QAMZINC OXIDE 1 APPLIC TO PICAL BIDHEPARIN SODIUM,PORCINE 5000 UNIT SUBQ I86AJQB ETAMINOPHEN 650 MG FEED-TUBE Q6H PRNFLUCONAZOLE 100 MG PO DAILYDONEPEZIL HCL 5 MG PO BEDTIMESOD BIPHOS/POT PHOSPHATE 1 PKT PO ASDIR (PRN)polyethylene glycoL 3350 1 P KT PO DAILY PRNDEXTROSE 16 GM PO ASDIR (PRN)MAGNESIUM 3 GM I V ASDIR (PRN)MAGNESIUM 2 GM IV ASDIR (PRN)METOPROLOL TAR TRATE 12.5 MG PO C51MTxyeeBYTLENY HCL 10 MG IV Q4HR PRNMAGN ESIUM 4 GM IV ASDIR (PRN)LABETALOL HCL 10 MG IV Q2H PRNINSU JANKI LISPRO 0 UNITS SUBQ AC HSSODIUM PHOSPHATE with/in SODIU M CHLORIDE 0.9% 20 MM IV ASDIR (PRN)LACTULOSE 30 ML PO BID PRNIPRATROPIUM/ALBUTEROL SULFATE 3 ML NEB RTQ4H PRNPOTASSIUM BICARBONATE/CIT AC 20 MEQ PO ASDIRS ODIUM PHOSPHATE with/in SODIUM CHLORIDE 0.9% 30 MM IV ASDIR (PRN)GLUCAGON 1 MG IM ASDIRPOTASSIUM CHLORIDE 20 MEQ IV ASDIRCEFDINIR 300 MG PO BID LABS GLU BED ( 05:29)GLUBED 30 *L GLU BED (02/04/22 20:56)GLUBE D 122 H GLU BED (02/04/22 16:54)GLUBED 80 GLU BED (02/04/22 11:50)GLUBED 225 H GLU BED (02/04/22 08:49) GLUB ED 54 L Signed in PatientKeeper by Britney Winchester DO on 02/05/22 at 05:53 at 0553ATTENTION EDITS and/or ADDENDA must be ma de in Patient Keeper for this note. Edits and ammen dments created in [employer] are not visible in Patien t Keeper or the legal medical record ([facility]). [facility] #: [id number] OF REPORT PRProgress [id number] Available for patient [id number]:2 [id number] 2022-02-04 [id number]:24:00 [facility] 13:24:00 [facility] ([facility])Pulmonology Progress Note REPORT # : [id number] REPORT STATUS: Signed DATE: 02/04/22 TIME: 1324 PATIENT: DANIELE HINKLE UNIT #: [id number] # : [id number] ROOM #: NC.2103 BED: 1 : 3 AGE: 71 SEX: F ATTEND: Eramso Fay MD ADM DT: 1 AUTHOR: Dheeraj Sanders MD ATTENTION EDITS and/or ADDENDA must be made i n Patient Keeper for this note. Edits and ammendments c reated in [employer] are not visible in Patient Keeper or the legal medical record ([facility]). -- ASSESSMENT AND PLAN -- GENERAL ASSESSMENT: [facility] AssessmentAcute respirat ory failure with hypoxiaDKA, with comaAcute metabolic encephalopathyAnion-gap metabolic acidosisAcute renal failureSepsisPseudohyponatremiaconstipationDMHTN Dyslipidemi a Plan:Pulmonary: desaturated to 40s w/ bradycar tati worsening mentation in ER.emergently intubated i n ED, extubated 01/31 AMChest x-ray 02/01 with clear ludwin gsOn room air, use O2 as needed to keep sats more than 92% Has as needed bronchodilatorsRocephin discontinued now on cefdinirCultures reviewed, Urine culture positiv e for yeastMental status improved; does have baseline dementiaRenal function/electrolytes improvedUnco ntrolled DM, endocrine following Discussed with family at bedside. Currently patient is on room air. Nopulmonary sy mptoms. Chest x-ray showed clear lung morocho. She is bimal bibianad fordischaradriana from pulmonary standpoint. VTE ppx: Heparin SubjectiveNoted billie nts, on room airFeels better, able to ambulateWants to g o homeDaughter at bedside HPI: Ms. Hinkle is a 71- year-old woman with a history of diabetes who presentswit h acute encephalopathy. Patient's blood sugar was report edly reading as"high" when her checked it tosharlene rodrigez. He called EMS, and the patient wasinitially refusin g transport to the ED but then acutely became altered. She w asbrought into the emergency department for evaluation --f ound to be in DKA withanion gap of 33, glucose of 976, and pH of 6.96. Her eyes are open, sheresponds and appropriately . Cannot hold a conversation. PMedHx: HTN, DM, CAD, retin opathy, diabetic neuropathy, dyslipidemiaPSurgHx: Retina l surgery, hysterectomyFamily history: NoncontributorySocHx : Former smoker Review of systems: 14 point review of sys tems negative except for HPI Physical ExamGeneral: El mathew female, NADEyes: Anicteric scle марина.Mouth: MMMNeck: Supple.CV: RRR. Normal S1 and S2.Pulm: no wheezing or Rales appreciated. room airAbdomen: Soft, no evidence of tenderness.Extremities: No lower extremity edema .Skin: Warm, dry.Neuro: oriented x 2, underlying yael ia, moves all extremitiesPsych: normal mood. impulsive -- OBJECTIVE -- VITALS (02/03 13:24 - 02/04 13:24):Temperatur e C: 36.7 (36.6 - 37.3)Temperature source: OralPulse Rate 94 (75 - 100)Respiratory rate: 20 (18 - 20)BP: 104/68 (10 4/65 - 135/75) I/Os (02/03 07:00 - 02/04 07:00):Net 400 Intake 400 -- DATA -- MEDICATIONS SODIUM PHOSPHATE with/in SODIUM CHLORIDE 0.9% 15 MM IV ASDIR (PRN)MAGNESIUM 5 GM IV ASDIR (PRN)INSULIN GLARGINE 20 UNITS SUBQ QAM ZINC OXI DE 1 APPLIC TOPICAL BIDHEPARIN SODIUM,PORCINE 5000 UNIT SUBQ [id number] 650 MG FEED-TUBE Q6H PRNFLUCO NAZOLE 100 MG PO DAILYDONEPEZIL HCL 5 MG PO BEDTIMESOD BIPH OS/POT PHOSPHATE 1 PKT PO ASDIR (PRN)polyethylene glyco L 3350 1 PKT PO DAILY PRNDEXTROSE 16 GM PO ASDIR (PRN)MAG NESIUM 3 GM IV ASDIR (PRN)MAGNESIUM 2 GM IV ASDIR (PRN)METOP ROLOL TARTRATE 12.5 MG PO Z25HUzybaNDSPWZE HCL 10 MG I V Q4HR PRNMAGNESIUM 4 GM IV ASDIR (PRN)LABETALOL HCL 10 MG IV Q2H PRNINSULIN LISPRO 0 UNITS SUBQ AC HSSODIUM PHOSP HATE with/in SODIUM CHLORIDE 0.9% 20 MM IV ASDIR (PRN )LACTULOSE 30 ML PO BID PRNIPRATROPIUM/ALBUTEROL SULFATE 3 ML NEB RTQ4H PRNPOTASSIUM BICARBONATE/CIT AC 20 MEQ PO ASDIRSODIUM PHOSPHATE with/in SODIUM CHLORIDE 0.9% 30 MM IV ASDIR (PRN)GLUCAGON 1 MG IM ASDIRPOTASSIUM CHLORIDE 20 MEQ IV ASDIRCEFDINIR 300 MG PO BID LABS GLU BED ( 11:50)GLUBED 225 H GLU BED (02/04/22 08:49)GLUBE D 54 L GLU BED (02/03/22 21:02)GLUBED 142 H GLU BED (02/03 16:09)GLUBED 77 Signed in PatientKeeper by DHEERAJ NEGRON MD on 02/04/22 at 13:46 at 1346ATTENTION EDITS and/or ADDENDA must be ma de in Patient Keeper for this note. Edits and ammen dments created in [facility] are not visible in Patien t Keeper or the legal medical record ([facility]). [facility] #: [id number] OF REPORT PRProgress [id number]:[id number] Available for patient [id number]:0 8 2022-02-04 [id number] [facility] 10:18:00 [facility] ([facility])Endocrinology Progress Note REPORT #: [id number] REPORT STATUS: Signed DATE: 02/04/22 T EDUARDO: 1018 PATIENT: DANIELE HINKLE UNIT #: [id number] ROOM #: [facility]2103 BED: 1 : 3 AGE: 71 SEX: F ATTEND: Erasmo Fay MD ADM DT: AUTHOR: Nini Doan MD ATTENTION EDITS and/or ADDENDA must be made i n Patient Keeper for this note. Edits and ammendments c reated in [employer] are not visible in Patient Keeper or the legal medical record ([facility]). -- ASSESSMENT AND PLAN -- PROBLEMS : 1: Type 1 diabetes mellitus with ketoacidosis without coma A/P: UNCONTROLLED (HGBA1C=>14%,HYPERGLYCEMIA) TYPE I DM IN DKA. DKA RESOLVED:FBS=54 HS OVUXNPT=915 . OBSERVE ON REVISED,DECREASED SQ BASAL/BOLUS INSULIN.MUST REEVES VE A BEDTIME SNACK. -- SUBJECTIVE -- CHIEF COMPLAINT:HYPERGLYCEMIA,DKA HPI: OUT OF ICU. JAMEL ERATING DIET. AM HYPOGLYCEMIA NOTED.SHE DID HAVE A BEDTI ME SNACK. -REVIEW OF SYSTEMS- GENERAL: Negative for feverR ESPIRATORY: Negative for dyspneaCARDIOVASCULAR: Negative for chest painGASTROINTESTINAL: Negative for abdominal tonia n or nausea.ENDOCRINE: Negative for polydipsia, polyu yamile -- OBJECTIVE -- VITALS (02/03 10:18 - 02/04 10:18): Temperature C: 36.6 (36.6 - 37.3)Temperature source: OralPul se Rate 89 (75 - 100)Respiratory rate: 20 (16 - 20)BP: 131/ 75 (100/65 - 135/75) I/Os (02/03 07:00 - 02/04 07:00):Net 4 00Intake 400 -EXAM- GENERAL: Well developed, well nourish ed, in no apparent distress. THINHEAD: Normocephalic, atraumatic.NECK: trachea midline.CHEST: Grossly normal appearance. LUNGS: NORMAL CHEST WALL MOVEMENTHEA RT: NO TACHYCARDIAABDOMEN: NON-DISTENDEDNEUROLOGICAL: N ORMAL SPEECHPSYCHIATRIC: Alert and oriented to time, p erson, place. -- DATA -- MEDICATIONS SODIUM PHOSPHATE w ith/in SODIUM CHLORIDE 0.9% 15 MM IV ASDIR (PRN)DEXTROS E 50%-WATER 50 ML IV ASDIRMAGNESIUM 5 GM IV ASDIR (PRN)INSUL IN GLARGINE 24 UNITS SUBQ QAMZINC OXIDE 1 APPLIC TOPICAL BID HEPARIN SODIUM,PORCINE 5000 UNIT SUBQ [id number] 650 MG FEED-TUBE Q6H PRNDONEPEZIL HCL 5 MG PO BEDTIMESO D BIPHOS/POT PHOSPHATE 1 PKT PO ASDIR (PRN)polyeth ylene glycoL 3350 1 PKT PO DAILY PRNMAGNESIUM 3 GM IV ASDIR (PRN)MAGNESIUM 2 GM IV ASDIR (PRN)METOPROLOL TAR TRATE 12.5 MG PO P12ONbgtdEYOPHZI HCL 10 MG IV Q4HR PRNMAGN ESIUM 4 GM IV ASDIR (PRN)LABETALOL HCL 10 MG IV Q2H PRNINSU JANKI LISPRO 0 UNITS SUBQ AC HSSODIUM PHOSPHATE with/in SODIU M CHLORIDE 0.9% 20 MM IV ASDIR (PRN)LACTULOSE 30 ML PO BID PRNIPRATROPIUM/ALBUTEROL SULFATE 3 ML NEB RTQ4H PRNPOTASSIUM BICARBONATE/CIT AC 20 MEQ PO ASDIRS ODIUM PHOSPHATE with/in SODIUM CHLORIDE 0.9% 30 MM IV ASDIR (PRN)GLUCAGON 1 MG IM ASDIRPOTASSIUM CHLORIDE 20 MEQ IV ASDIRCEFDINIR 300 MG PO BID LABS GLU BED ( 08:49)GLUBED 54 L GLU BED (02/03/22 21:02)GLUBE D 142 H GLU BED (02/03/22 16:09)GLUBED 77 GLU BED (02/03/22 11:33)GLUBED 197 H -- ATTESTATION -- TIME SPENT ON PATIENT CARE: - Direct 30 minutes CARE ACTIVITIES / CARE COORDINATION: - I have reviewed the history and repeated the ingram elements - I have seen and examined this patient - I have reviewed the progress in the clinical cou rse since the lastexamination - I have discussed the blayne faria's condition with other members of the care team AD DITIONAL DETAIL:I HAVE SPENT 30 MINUTES IN THE EVALUATION AND TREATMENT OF THIS PATIENT. Signed in PatientKeep er by Nini Doan MD on 02/04/22 at 10:20 at 1020ATTENTION EDITS and/or ADDENDA must be ma de in Patient Keeper for this note. Edits and ammen dments created in [facility] are not visible in Batool t Keeper or the legal medical record (HPF). [facility] #: [id number] OF REPORT PRProgress [id number] Available for patient [id number] 0 2022-02-03 [id number] [facility] 13:00:00 [facility])Family Medicine Progress Note REPO RT #: [id number] REPORT STATUS: Signed DATE: 02/03/22 T EDUARDO: 1300 PATIENT: DANIELE HINKLE UNIT #: [id number] ROOM #: [id number] BED: 1 : 3 AGE: 71 SEX: F ATTEND: Erasmo Fay MD ADM DT: AUTHOR: Erasmo Fay MD ATTENTION EDITS and/or ADDENDA must be made i n Patient Keeper for this note. Edits and ammendments c reated in [facility] are not visible in Patient Keeper or the legal medical record (HPF). -- ASSESSMENT AND PLAN -- PROBLEMS : 1: Respiratory failure with hypoxiaA/P: [facility] sed[facility] has been stopped, stil unre sponsive extubated and breathing well 2: Type 1 diabetes mellitus with ketoacidosis, uncontrolledA/P: likely due t o missing medications endocrine consulted glucose levels h ave been corrected, anion gap resolved, insulin drip stop epd doing well. 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 5: Diabetic visual loss: better eye: profound visio n impairment; lesser eye:near-total vision impairm ent, with macular edema, with retinopathy, associatedwith type 1 diabetes mellitus 6: Mixed hyperlipidemia 7: Hyp ertension 8: CAD (coronary artery disease) 9: Peripheral a rterial disease 10: Chronic kidney disease, stage 3aA/P: due to DM 11: UTI (urinary tract infection)A/P: abx cultur e growing yeast - add diflucanchange from cefipime to ceft riaxone 12: Overactive bladderA/P: 13: Acute metabolic encephalopathyA/P: due to DKA,possible anoxic in jury 14: Elevated liver function testsA/P: trend levels m uch improved 15: HypokalemiaA/P: resolved 16: Cognit mirtha impairmentA/P: eval for dementia as outpatient w hen acute metabolic issues havestabilized -- SUBJECTIVE -- HPI:feelgin better,wants to go home at b [facility], discussed with alayna nursing staff and [facility] , patient has some cognitive impairmen t sometimes refuses meds also eating off diet plan , willing to care for her but when she refuses , he is unable toconvince her -REVIEW OF SYSTEMS- GENERAL: Negative for fe carol, chills,RESPIRATORY: Negative for shortness of br eath, cough, chest congestion, wheezing, hemoptysis, a nd pleuritic painCARDIOVASCULAR: Negative for chest pain, palpitations, dyspnea on exertion, orthopnea, ed venancio and dizzinessGASTROINTESTINAL: Negative for abdomina l pain, nausea, vomiting, diarrhea, , and anorexia; + co nstipation -- OBJECTIVE -- VITALS (02/02 13:00 - 02/03 13:00):Temperature C: 37.0 (36.6 - 38.5)Temperat ure source: OralPulse Rate 97 (82 - 109)Respiratory rate: 16 (16 - 20)BP: 100/67 (100/67 - 148/78) -EXAM- GENERAL: Well developed, well nourished, in no apparent distr ess. NECK: No masses, no thyromegaly, no abnormal cervical nodes, trachea midline.LUNGS: Respirations unlabored, c lear to auscultation bilaterally, no wheezing, no ronchi , no ralesHEART: Regular rate and rhythm, normal S1, S2, no murmurs, no rubs, no gallops, no clicks.ABDOMEN: + BS soft, flat, nontender, the liver and spleen are not pa lpable, no palpable masses, no herniasMUSCULOSKELETAL: No o bvious deformitiesEXTREMITIES: No clubbing, cyanosis or edemaNEUROLOGICAL: alert and oriented to person and place, answers questions appropriately , moves all ext symetricallt, normal speechSKIN: No pallor, no j aundice, no rash, normal turgorLYMPH NODES: None palpable ce rvical, axillary, supraclavicular or inguinal locations -- DATA -- MEDICATIONS SODIUM PHOSPHATE with/in SODIUM CHLO RIDE 0.9% 15 MM IV ASDIR (PRN)DEXTROSE 50%-WATER 50 ML IV ASDIRMAGNESIUM 5 GM IV ASDIR (PRN)INSULIN GLARGI NE 24 UNITS SUBQ QAMZINC OXIDE 1 APPLIC TOPICAL BIDHEPARIN SODIUM,PORCINE 5000 UNIT SUBQ [id number] 650 MG FEED-TUBE Q6H PRNDONEPEZIL HCL 5 MG PO BEDTIMESO D BIPHOS/POT PHOSPHATE 1 PKT PO ASDIR (PRN)polyeth ylene glycoL 3350 1 PKT PO DAILY PRNMAGNESIUM 3 GM IV ASDIR (PRN)MAGNESIUM 2 GM IV ASDIR (PRN)METOPROLOL TAR TRATE 12.5 MG PO [id number] HCL 10 MG IV Q4HR PRNMAGN ESIUM 4 GM IV ASDIR (PRN)LABETALOL HCL 10 MG IV Q2H PRNINSU JANKI LISPRO 0 UNITS SUBQ AC HSSODIUM PHOSPHATE with/in SODIU M CHLORIDE 0.9% 20 MM IV ASDIR (PRN)LACTULOSE 30 ML PO BID PRNIPRATROPIUM/ALBUTEROL SULFATE 3 ML NEB RTQ4H PRNPOTASSIUM BICARBONATE/CIT AC 20 MEQ PO ASDIRS ODIUM PHOSPHATE with/in SODIUM CHLORIDE 0.9% 30 MM IV ASDIR (PRN)GLUCAGON 1 MG IM ASDIRcefTRIAXone with/in S ODIUM CHLORIDE 0.9% 1000 MG IV DAILY@1700POTASSIUM CHL ORIDE 20 MEQ IV ASDIR LABS GLU BED (02/03/22 11:33)GLUBED 197 H GLU BED (02/03/22 07:18)GLUBED 202 H BASIC METABOLIC PANEL (02/03/22 04:47)SODIUM 136POTASSIUM 3.7CHLORIDE 101CARBON DIOXIDE 30 ANION GAP 8.7GLUCOSE 211H HBLOOD URE A NITROGEN 13GLOMERULAR FILTRATION RATE >=60 max estimateCR EATININE 1.1BUN/CREATININE RATIO 11.8 LCALCIUM 8.6 MAG (1 04:47)MAGNESIUM 1.9 LIVER FUNCTION PANEL ( 04:47)TOTAL PROTEIN 6.5ALBUMIN 2.2 LGLOBULIN 4. 3 HBILIRUBIN TOTAL 0.4BILIRUBIN DIRECT 0.1BILIRUBI N INDIRECT 0.3SGOT/AST 61 HSGPT/ALT 40ALKALINE PHOSPHATASE 202 H CBC W/AUTO DIFF (02/03/22 04:47)WHITE BLOOD CELL 5.8 RED BLOOD CELL 3.18 LHEMOGLOBIN 9.4L LHEMATOCRIT 29.1L LME AN CELL VOLUME 92MEAN CELL HGB 29.6MEAN CELL HGB CONCENT RATION 32.3RED CELL DISTRIBUTION WIDTH 13.4PLATELET COU NT 189MEAN PLATELET VOLUME 10.8NEUTROPHIL % 68.6IMMATURE GR ANULOCYTE % 0.5LYMPHOCYTE % 18.2MONOCYTE % 10.0EOSINOPHIL % 2.2BASOPHIL % 0.5NUCLEATED RBC % 0.0NEUTROPHIL # 3.98IMMATUR E GRANULOCYTE # 0.030LYMPHOCYTE # 1.06 LMONOCYTE # 0.58EOSINOPHIL # 0.13BASOPHIL # 0.03NUCLEATED RB C # 0.000 GLU BED (02/02/22 21:02)GLUBED 190 H BASIC METAB OLIC PANEL (02/02/22 19:14)SODIUM 134L LPOTASSIUM 3.5CHLORI DE 102CARBON DIOXIDE 27ANION GAP 8.5GLUCOSE 249H H BLOOD UREA NITROGEN 14GLOMERULAR FILTRATION RATE 48 L CREAT ININE 1.4BUN/CREATININE RATIO 10.0 LCALCIUM 8.4 L JUMANA S (02/02/22 19:14)PHOSPHOROUS 2.1 L GLU BED (02/02/22 14:57) GLUBED 367 H Signed in PatientKeeper by ERASMO FAY MD on 02/03/22 at 13:03 at 1303ATTENTION EDITS and/or ADDENDA must be ma de in Patient Keeper for this note. Edits and ammen dments created in [facility] are not visible in Patien t Keeper or the legal medical record ([facility]). RPT #: [id number] OF REPORT PRProgress [id number] Available for patient [id number] 3 2022-02-03 [id number]:05:00 [facility] 10:05:00 [facility] ([facility])Endocrinology Progress Note REPORT #: [id number] REPORT STATUS: Signed DATE: 02/03/22 T EDUARDO: 1005 PATIENT: DANIELE HINKLE UNIT #: [id number] ROOM #: NC.4102 BED: 1 : 3 AGE: 71 SEX: F ATTEND: Erasmo Fay MD ADM DT: AUTHOR: Nini Doan MD ATTENTION EDITS and/or ADDENDA must be made i n Patient Keeper for this note. Edits and ammendments c reated in [facility] are not visible in Patient Keeper o r the legal medical record (HPF). -- ASSESSMENT AND PLAN -- PROBLEMS : 1: Type 1 diabetes mellitus with ketoacidosis without coma A/P: UNCONTROLLED (HGBA1C=>14%,HYPERGLYCEMIA) TYPE I DM IN DKA. DKA RESOLVED:JHY=500 HS SFFVUJV=783 AG=8.7 . OBS ERVE ON CURRENT SQ BASAL/BOLUS INSULIN. MUSTHAVE A BEDTI ME SNACK. -- SUBJECTIVE -- CHIEF COMPLAINT:HYPERGLYCEMIA,D KA HPI: OUT OF ICU. TOLERATING DIET. -REVIEW OF SYSTEMS- GEN ERAL: Negative for feverRESPIRATORY: Negative for dyspneaCARDIOVASCULAR: Negative for chest painGASTROINTESTINAL: Negative for abdominal tonia n or nausea.ENDOCRINE: Negative for polydipsia, polyu yamile -- OBJECTIVE -- VITALS (02/02 10:05 - 02/03 10:05): Temperature C: 36.7 (36.6 - 38.5)Temperature source: OralPul se Rate 92 (82 - 109)Respiratory rate: 16 (16 - 20)BP: 131/ 78 (109/68 - 148/80)Blood pressure source: Monitor -EXAM- G ENERAL: Well developed, well nourished, in no apparent d istress. THINHEAD: Normocephalic, atraumatic.NECK: trache a midline.CHEST: Grossly normal appearance.LUNGS: NORMAL CHEST WALL MOVEMENTHEART: NO TACHYCARDIAABDOMEN: NON-DISTENDEDNEUROLOGICAL: NORMAL SPEECH PSYCHIA TRIC: Alert and oriented to time, person, place. -- DATA -- MEDICATIONS SODIUM PHOSPHATE with/in SODIUM CHLORIDE 0.9% 15 MM IV ASDIR (PRN)DEXTROSE 50%-WATER 50 ML IV ASDIRMAGN ESIUM 5 GM IV ASDIR (PRN)INSULIN GLARGINE 24 UNITS SUBQ QAM ZINC OXIDE 1 APPLIC TOPICAL BIDHEPARIN SODIUM,PORCINE 5000 UNIT SUBQ [id number] 650 MG FEED-TUBE Q6H PRNDONEP EZIL HCL 5 MG PO BEDTIMESOD BIPHOS/POT PHOSPHATE 1 PKT PO A SDIR (PRN)polyethylene glycoL 3350 1 PKT PO DAILY PRN MAGNESIUM 3 GM IV ASDIR (PRN)MAGNESIUM 2 GM IV ASDIR (PRN)ME TOPROLOL TARTRATE 12.5 MG PO [id number] HCL 10 MG I V Q4HR PRNMAGNESIUM 4 GM IV ASDIR (PRN)LABETALOL HCL 10 MG IV Q2H PRNINSULIN LISPRO 0 UNITS SUBQ AC HSSODIUM PHOSP HATE with/in SODIUM CHLORIDE 0.9% 20 MM IV ASDIR (PRN )LACTULOSE 30 ML PO BID PRNIPRATROPIUM/ALBUTEROL SULFATE 3 ML NEB RTQ4H PRNPOTASSIUM BICARBONATE/CIT AC 20 MEQ PO ASDIRSODIUM PHOSPHATE with/in SODIUM CHLORIDE 0.9% 30 MM IV ASDIR (PRN)GLUCAGON 1 MG IM ASDIRcefTRIAXone with/in S ODIUM CHLORIDE 0.9% 1000 MG IV DAILY@1700POTASSIUM CHL ORIDE 20 MEQ IV ASDIR LABS GLU BED (02/03/22 07:18)GLUBED 202 H BASIC METABOLIC PANEL (02/03/22 04:47)SODIUM 136 POTASSIUM 3.7CHLORIDE 101CARBON DIOXIDE 30ANION GAP 8.7GLU COSE 211H HBLOOD UREA NITROGEN 13GLOMERULAR FILTRATION RAT E >=60 max estimateCREATININE 1.1BUN/CREATININE RATIO 11.8 LCALCIUM 8.6 MAG (02/03/22 04:47)MAGNESIUM 1.9 LIVER FUNC TION PANEL (02/03/22 04:47)TOTAL PROTEIN 6.5ALBUMIN 2.2 LG LOBULIN 4.3 HBILIRUBIN TOTAL 0.4BILIRUBIN DIRECT 0.1BILIRUBI N INDIRECT 0.3 SGOT/AST 61 HSGPT/ALT 40ALKALINE PHOSPHATAS E 202 H CBC W/AUTO DIFF (02/03/22 04:47)WHITE BLOOD CELL 5.8 RED BLOOD CELL 3.18 LHEMOGLOBIN 9.4L LHEMATOCRIT 29.1L LM KAMI CELL VOLUME 92MEAN CELL HGB 29.6MEAN CELL HGB CONCENT RATION 32.3RED CELL DISTRIBUTION WIDTH 13.4PLATELET CO UNT 189MEAN PLATELET VOLUME 10.8NEUTROPHIL % 68.6IMMATURE GR ANULOCYTE % 0.5LYMPHOCYTE % 18.2MONOCYTE % 10.0EOSINOPHIL % 2.2BASOPHIL % 0.5NUCLEATED RBC % 0.0NEUTROPHIL # 3.98IMMATURE GRANULOCYTE # 0.030LYMPHOCYTE # 1.0 6 LMONOCYTE # 0.58EOSINOPHIL # 0.13BASOPHIL # 0.03NUCLEATED RBC # 0.000 GLU BED (02/02/22 21:02)GLUBED 190 H BASIC METAB OLIC PANEL (02/02/22 19:14)SODIUM 134L LPOTASSIUM 3.5CHLORI DE 102CARBON DIOXIDE 27ANION GAP 8.5GLUCOSE 249H HB LOOD UREA NITROGEN 14GLOMERULAR FILTRATION RATE 48 LCREATI NINE 1.4BUN/CREATININE RATIO 10.0 LCALCIUM 8.4 L PHOS (02/02/22 19:14)PHOSPHOROUS 2.1 L GLU BED (02/02/22 14:57) GLUBED 367 H -- ATTESTATION -- TIME SPENT ON PATIENT CARE: - Direct 30 minutes CARE ACTIVITIES / CARE COORDINATION: - I have reviewed the history and repeated the ingram elemen ts - I have seen and examined this patient - I have reviewed the progress in the clinical course since the lastex amination - I have discussed the patient's condition with ot her members of the care team ADDITIONAL DETAIL:I HAVE SPENT 30 MINUTES IN THE EVALUATION AND TREATMENT OF THIS PATIENT. Signed in PatientKeeper by Nini Doan MD on 10/20 at 10:07 at 1007ATTENTION EDITS and/or ADDENDA must be ma de in Patient Keeper for this note. Edits and ammen dments created in [facility] are not visible in Patien t Keeper or the legal medical record (HPF). RPT #: [id number] OF REPORT PRProgress [id number]:[id number] Available for patient [id number]:2 5 2022-02-03 [id number]:58:00 [facility] 09:58:00 [place] ([facility])Pulmonology Progress Note REPORT # : [id number] REPORT STATUS: Signed DATE: 02/03/22 TIME: 09 PATIENT: DANIELE HINKLE UNIT #: [id number] # : [id number] ROOM #: [facility] BED: 1 : 3 AGE: 71 SEX: F ATTEND: Erasmo Fay MD ADM DT: AUTHOR: Landry Marques MD ATTENTION EDITS and/or ADDENDA must be made i n Patient Keeper for this note. Edits and ammendments c reated in [facility] are not visible in Patient Keeper or the legal medical record (HPF). -- ASSESSMENT AND PLAN -- GENERAL ASSESSMENT: [facility] AssessmentAcute respirat ory failure with hypoxiaDKA, with comaAcute metabolic encephalopathyAnion-gap metabolic acidosisAcute renal failureSepsisPseudohyponatremiaconstipationDMHTN Dyslipidemi a Plan:Pulmonary: emergently intubated in ED, as she desaturated to 40s w/ bradycardia worsening mentation.extubated 01/31 AMChest x-ray 02/01 with clear lungsOn room air, use O2 as needed to keep sats more than 92%Has as needed bronchodilatorscontinue empiric ceftriaxone, previously received cefepime/Difluc anCultures reviewedMental status improved; does have baseli ne dementiaRenal function/electrolytes improvedUnco ntrolled DM, endocrine following VTE ppx: Heparin Discuss ed with bedside patient and sitter at bedside. Discharge planningNo additional intervention from pulmonary standpoin t, please call us if any questions SubjectiveNoted billie omi, on room airFeels better, able to ambulateSitter at bedside HPI: Ms. Hinkle is a 71-year-old woman with a hi story of diabetes who presentswith acute encephalopathy. Patient's blood sugar was reportedly reading as"high" when her checked it today. He called EMS, and the patient wasinitially refusing transport to the ED but th en acutely became altered. She wasbrought into the emergenc y department for evaluation --found to be in DKA w ithanion gap of 33, glucose of 976, and pH of 6.96. Her e yes are open, sheresponds and appropriately. Cannot hold a conversation. PMedHx: HTN, DM, CAD, retinopathy, diabetic neuropathy, dyslipidemiaPSurgHx: Retinal surgery , hysterectomyFamily history: NoncontributorySocHx : Former smoker Review of systems: 14 point review of sys tems negative except for HPI Physical ExamGeneral: El mathew female, NADEyes: Anicteric scle марина.Mouth: MMMNeck: Supple.CV: RRR. Normal S1 and S2.Pulm: no wheezing or Rales appreciated. room airAbdomen: Soft, no evidence of tenderness.Extremities: No lower extremity edema .Skin: Warm, dry.Neuro: oriented x 2, underlying yael ia, moves all extremitiesPsych: normal mood. impulsive -- OBJECTIVE -- VITALS (02/02 09:58 - 02/03 09:58):Temperatur e C: 36.7 (36.6 - 38.5)Temperature source: OralPulse Rate 92 (82 - 109)Respiratory rate: 16 (16 - 20)BP: 131/78 (1 07/63 - 148/80)Blood pressure source: Monitor -- DATA -- MEDICATIONS SODIUM PHOSPHATE with/in SODIUM CHLO RIDE 0.9% 15 MM IV ASDIR (PRN)DEXTROSE 50%-WATER 50 ML IV ASDIRMAGNESIUM 5 GM IV ASDIR (PRN)INSULIN GLARGI NE 24 UNITS SUBQ QAMZINC OXIDE 1 APPLIC TOPICAL BIDHEPARIN SODIUM,PORCINE 5000 UNIT SUBQ [id number] 650 MG FEED-TUBE Q6H PRNDONEPEZIL HCL 5 MG PO BEDTIME S OD BIPHOS/POT PHOSPHATE 1 PKT PO ASDIR (PRN)polyeth ylene glycoL 3350 1 PKT PO DAILY PRNMAGNESIUM 3 GM IV ASDIR (PRN)MAGNESIUM 2 GM IV ASDIR (PRN)METOPROLOL TAR TRATE 12.5 MG PO [id number] HCL 10 MG IV Q4HR PRNMAGN ESIUM 4 GM IV ASDIR (PRN)LABETALOL HCL 10 MG IV Q2H PRNINSU JANKI LISPRO 0 UNITS SUBQ AC HSSODIUM PHOSPHATE with/in SODIU M CHLORIDE 0.9% 20 MM IV ASDIR (PRN)LACTULOSE 30 ML PO BID PRNIPRATROPIUM/ALBUTEROL SULFATE 3 ML NEB RTQ4H PRNPOTASSIUM BICARBONATE/CIT AC 20 MEQ PO ASDIRS ODIUM PHOSPHATE with/in SODIUM CHLORIDE 0.9% 30 MM IV ASDIR (PRN)GLUCAGON 1 MG IM ASDIRcefTRIAXone with/in S ODIUM CHLORIDE 0.9% 1000 MG IV DAILY@1700POTASSIUM CHL ORIDE 20 MEQ IV ASDIR LABS GLU BED (02/03/22 07:18)GLUBED 202 H BASIC METABOLIC PANEL (02/03/22 04:47)SODIUM 136 POTASSIUM 3.7CHLORIDE 101CARBON DIOXIDE 30ANION GAP 8.7GL UCOSE 211H HBLOOD UREA NITROGEN 13GLOMERULAR FILTRATION RAT E >=60 max estimateCREATININE 1.1BUN/CREATININE RATIO 11.8 LCALCIUM 8.6 MAG (02/03/22 04:47)MAGNESIUM 1.9 LIVER FUNC TION PANEL (02/03/22 04:47)TOTAL PROTEIN 6.5ALBUMIN 2.2 LG LOBULIN 4.3 HBILIRUBIN TOTAL 0.4BILIRUBIN DIRECT 0.1BILIRUBI N INDIRECT 0.3SGOT/AST 61 HSGPT/ALT 40ALKALINE PHOSPHATASE 202 H CBC W/AUTO DIFF (02/03/22 04:47)WHITE BLOOD CELL 5.8 RED BLOOD CELL 3.18 LHEMOGLOBIN 9.4L LHEMATOCRIT 29.1L LME AN CELL VOLUME 92MEAN CELL HGB 29.6MEAN CELL HGB CONCENT RATION 32.3RED CELL DISTRIBUTION WIDTH 13.4PLATELET COU NT 189 MEAN PLATELET VOLUME 10.8NEUTROPHIL % 68.6IMMATURE GR ANULOCYTE % 0.5LYMPHOCYTE % 18.2MONOCYTE % 10.0EOSINOPHIL % 2.2BASOPHIL % 0.5NUCLEATED RBC % 0.0NEUTROPHIL # 3.98IMMATUR E GRANULOCYTE # 0.030LYMPHOCYTE # 1.06 LMONOCYTE # 0.58EOSINOPHIL # 0.13BASOPHIL # 0.03NUCLEATED RB C # 0.000 GLU BED (02/02/22 21:02)GLUBED 190 H BASIC META BOLIC PANEL (02/02/22 19:14)SODIUM 134L LPOTASSIUM 3.5CHLORI DE 102CARBON DIOXIDE 27ANION GAP 8.5GLUCOSE 249H H BLOOD UREA NITROGEN 14GLOMERULAR FILTRATION RATE 48 LCREATI NINE 1.4BUN/CREATININE RATIO 10.0 LCALCIUM 8.4 L PHOS (02/02/22 19:14)PHOSPHOROUS 2.1 L GLU BED (02/02/22 14:57) GLUBED 367 H Signed in PatientKeeper by Landry Marques MD on 02/03/22 at 10:04 at 1004ATTENTION EDITS and/or ADDENDA must be ma de in Patient Keeper for this note. Edits and ammen dments created in [facility] are not visible in Patien t Keeper or the legal medical record (HPF). RPT #: [id number] OF REPORT PRProgress [id number]:[id number] Available for patient [id number]:04:5 5 2022-02-02 [id number]:00 [facility] 13:28:00 [place] ([facility])Family Medicine Progress Note REPO RT #: [id number] REPORT STATUS: Signed DATE: 02/02/22 T EDUARDO: 1328 PATIENT: DANIELE HINKLE UNIT #: [id number] ROOM #: NC.4102 BED: 1 : 3 AGE: 71 SEX: F ATTEND: Erasmo Fay MD ADM DT: AUTHOR: Rzasnicki,Erasmo C MD ATTENTION EDITS and/or ADDENDA must be made i n Patient Keeper for this note. Edits and ammendments c reated in [facility] are not visible in Patient Keeper or the legal medical record (HPF). -- ASSESSMENT AND PLAN -- PROBLEMS : 1: Respiratory failure with hypoxiaA/P: [facility] 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 5: Diabetic visual loss: better eye: profound visio n impairment; lesser eye:near-total vision impairm ent, with macular edema, with retinopathy, associatedwith type 1 diabetes mellitus 6: Mixed hyperlipidemia 7: Hyp ertension 8: CAD (coronary artery disease) 9: Peripheral a rterial disease 10: Chronic kidney disease, stage 3aA/P: due to DM 11: UTI (urinary tract infection)A/P: abxculture growing yeast - add diflucanchange from cefipime to ceft riaxone 12: Overactive bladderA/P: 13: Acute metabolic encephalopathyA/P: due to DKA,possible anoxic in jury 14: Elevated liver function testsA/P: trend levels 1 5: HypokalemiaA/P: replace -- SUBJECTIVE -- HPI:ext ubated and transferred out of ICU.feeling OK, has perianal pain, disccussed insulin compliance at home, patient d enies missing insulin dosesbut admits to eating some t hings she shouldnt -REVIEW OF SYSTEMS- GENERAL: Negative f or fever, chills,RESPIRATORY: Negative for shortness of br eath, cough, chest congestion, wheezing, hemoptysis, a nd pleuritic painCARDIOVASCULAR: Negative for chest pain, palpitations, dyspnea on exertion, orthopnea, ed venancio and dizzinessGASTROINTESTINAL: Negative for abdomina l pain, nausea, vomiting, diarrhea, , and anorexia; + co nstipation -- OBJECTIVE -- VITALS (02/01 13:28 - 02/02 13:28):Temperature F: 98.4 (98.3 - 99.9)Temperat ure C: 36.9 (36.9 - 37.8)Temperature source: OralPulse Rate 88 (79 - 131)Respiratory rate: 16 (9 - 38)BP: 142/80 (107 /56 - 157/85)Blood pressure source: Monitor I/Os ( 07:00 - 02/02 07:00):Net -700Output 700 -EXAM- GENERAL: Well developed, well nourished, in no apparent distre ss.NECK: No masses, no thyromegaly, no abnormal cervical nod es, trachea midline.LUNGS: Respirations unlabored, clear to auscultation bilaterally, no wheezing, no ronchi , no ralesHEART: Regular rate and rhythm, normal S1, S2, no murmurs, no rubs, no gallops, no clicks.ABDOMEN: + BS soft, flat, nontender, the liver and spleen are not pa lpable, no palpable masses, no herniasMUSCULOSKELETAL: No o bvious deformitiesEXTREMITIES: No clubbing, cyanosis or edema NEUROLOGICAL: alert and oriented to person and p lace, answers questions appropriately , moves all ext symetricallt, normal speechSKIN: No pallor, no j aundice, no rash, normal turgorLYMPH NODES: None palpable ce rvical, axillary, supraclavicular or inguinal locations -- DATA -- MEDICATIONS SODIUM PHOSPHATE with/in SODIUM CHLO RIDE 0.9% 15 MM IV ASDIR (PRN)DEXTROSE 50%-WATER 50 ML IV ASDIRINSULIN LISPRO 0 UNITS SUBQ [id number] 5 GM IV ASDIR (PRN)INSULIN GLARGINE 24 UNITS SUBQ QAMMUPIROCIN 1 APPLIC NASAL BIDGLUCAGON 1 MG IM ASDIRHEPARIN SODIUM,PO RCINE 5000 UNIT SUBQ [id number] OXIDE 1 APPLIC TOPICAL BIDAC ETAMINOPHEN 650 MG FEED-TUBE Q6H PRNDONEPEZIL HCL 5 MG PO BE DTIMESOD BIPHOS/POT PHOSPHATE 1 PKT PO ASDIR (PRN)polyeth ylene glycoL 3350 1 PKT PO DAILY PRNMAGNESIUM 3 GM IV ASDIR (PRN)MAGNESIUM 2 GM IV ASDIR (PRN)METOPROLOL TAR TRATE 12.5 MG PO [id number] HCL 10 MG IV Q4HR PRNMAGN ESIUM 4 GM IV ASDIR (PRN)LABETALOL HCL 10 MG IV Q2H PRNSODI UM PHOSPHATE with/in SODIUM CHLORIDE 0.9% 20 MM IV ASDIR (PRN)LACTULOSE 30 ML PO BID PRNIPRATROPIUM/ALBUT SHELBY SULFATE 3 ML NEB RTQ4H PRNPOTASSIUM BICARBONATE/ CIT AC 20 MEQ PO ASDIRSODIUM PHOSPHATE with/in SODIUM CHLO RIDE 0.9% 30 MM IV ASDIR (PRN)cefTRIAXone with/in SODIUM C HLORIDE 0.9% 1000 MG IV DAILY@1700(DC'd) FLUCONAZOLE 200 MG PO DAILY@2100POTASSIUM CHLORIDE 20 MEQ IV ASDIR LAB S GLU BED (02/02/22 08:01)GLUBED 132 H GLU BED (02/02/22 0 4:52)GLUBED 257 H CBC W/AUTO DIFF (02/02/22 02:00)WHITE BLOO D CELL 9.3RED BLOOD CELL 3.03 LHEMOGLOBIN 9.0L LHEMATOC RIT 28.0L LMEAN CELL VOLUME 92MEAN CELL HGB 29.7MEAN CELL HGB CONCENTRATION 32.1RED CELL DISTRIBUTION WIDTH 13 .7PLATELET COUNT 154MEAN PLATELET VOLUME 11.0NEUTROPHIL % 8 4.0 HIMMATURE GRANULOCYTE % 0.4 LYMPHOCYTE % 9.9 LMO NOCYTE % 5.2EOSINOPHIL % 0.2BASOPHIL % 0.3NUCLEATED RBC % 0.0NEUTROPHIL # 7.76 HIMMATURE GRANULOCYTE # 0.040LYMPHOCYTE # 0.92 LMONOCYTE # 0.48EOSINOPHI L # 0.02BASOPHIL # 0.03NUCLEATED RBC # 0.000ANISOCYT OSIS 1+ HPLATELET ESTIMATE ADEQUATEPLATELET MORPHOLOGY N ORMAL PLT MORPH PHOS (02/02/22 02:00)PHOSPHOROUS 2.0 L DIF FERENTIAL SCAN (02/02/22 02:00)RBC MORPHOLOGY REQUIRED NOR MALPLATELET ESTIMATE ADEQUATEPLATELET MORPHOLOGY NORMAL PLT MORPH BASIC METABOLIC PANEL (02/02/22 02:00)SODIUM 140POTASS IUM 3.3L LCHLORIDE 107CARBON DIOXIDE 27ANION GAP 9.3GLUCO SE 198H HBLOOD UREA NITROGEN 13GLOMERULAR FILTRATION RAT E 57 LCREATININE 1.2BUN/CREATININE RATIO 10.8 LCALCI UM 8.2 L GLU BED (02/02/22 00:24)GLUBED 113 H GLU BED ( 20:06)GLUBED 124 H GLU BED (02/01/22 16:39)GLUBE D 206 H Signed in PatientKeeper by ERASMO FAY MD on 02/02/22 at 13:33 at 1333ATTENTION EDITS and/or ADDENDA must be ma de in Patient Keeper for this note. Edits and ammen dments created [facility] are not visible in Patien t Keeper or the legal medical record (HPF). RPT #: [id number] OF REPORT PRProgress [id number] Available for patient [id number] 7 2022-02-02 [id number] [facility] 09:25:00 [place] [facility]Endocrinology Progress Note REPORT #: [id number] REPORT STATUS: Signed DATE: 02/02/22 T EDUARDO: 0925 PATIENT: DANIELE HINKLE UNIT #: [id number] ROOM #: [place] [id number] BED: A : 3 AGE: 71 SEX: F ATTEND: Erasmo Fay MD ADM DT: AUTHOR: Nini Doan MD ATTENTION EDITS and/or ADDENDA must be made i n Patient Keeper for this note. Edits and ammendments c reated in [employer] are not visible in Patient Keeper or the legal medical record (HPF). -- ASSESSMENT AND PLAN -- PROBLEMS : 1: Type 1 diabetes mellitus with ketoacidosis without coma A/P: UNCONTROLLED (HGBA1C=>14%,HYPERGLYCEMIA) TYPE I DM IN DKA. DKA RESOLVED:EFR=479 AG=9.3 . OBSERVE ON PRESENT SQ BASAL/BOLUS INSULIN. -- SUBJECTIVE -- CHIEF COMPLAINT:HYPERGLYCEMIA,DKA HPI: IN ICU. ON NC. TOLERATING LIQUIDS. -REVIEW OF SYSTEMS- GENERAL: Negative f or feverRESPIRATORY: Negative for dyspneaCARDIOVASC ULAR: Negative for chest painGASTROINTESTINAL: Negativ e for abdominal pain or nausea.ENDOCRINE: Negative for polydipsia, polyuria -- OBJECTIVE -- VITALS ( 09:26 - 02/02 09:26):Temperature F: 98.3 (98.3 - 99.9)Te mperature C: 37.8 (37.6 - 37.8)Temperature source: OralPul se Rate 81 (79 - 131)Respiratory rate: 20 (9 - 38)BP: 127/7 1 (108/56 - 159/99)Blood pressure source: Monitor I/Os ( 07:00 - 02/02 07:00):Net -700Output 700 -EXAM- GENERAL: Well developed, well nourished, in no apparent distre ss. THINHEAD: Normocephalic, atraumatic.NECK: trach ea midline.CHEST: Grossly normal appearance. LUNGS: NORMAL CHEST WALL MOVEMENTHEART: NO TACHYCARDIAABDOMEN: NON-DISTENDEDNEUROLOGICAL: NORMAL SPEECHPSYCHIAT ALPESH: Alert and oriented to time, person, place. -- DATA -- MEDICATIONS SODIUM PHOSPHATE with/in SODIUM CHLORIDE 0.9% 15 MM IV ASDIR (PRN)DEXTROSE 50%-WATER 50 ML IV ASDIRMAGN ESIUM 5 GM IV ASDIR (PRN)INSULIN GLARGINE 24 UNITS SUBQ QAM MUPIROCIN 1 APPLIC NASAL BIDGLUCAGON 1 MG IM ASDIRHEPARIN SODIUM,PORCINE 5000 UNIT SUBQ [id number] 650 MG FEED-TUBE Q6H PRNDONEPEZIL HCL 5 MG PO BEDTIMESO D BIPHOS/POT PHOSPHATE 1 PKT PO ASDIR (PRN)polyeth ylene glycoL 3350 1 PKT PO DAILY PRNINSULIN LISPRO 0 U NITS SUBQ [id number] 3 GM IV ASDIR (PRN)MAGNESIUM 2 GM I V ASDIR (PRN)METOPROLOL TARTRATE 12.5 MG PO K43BGxchnHBN ZINE HCL 10 MG IV Q4HR PRNMAGNESIUM 4 GM IV ASDIR (PRN)LABET ALOL HCL 10 MG IV Q2H PRNSODIUM PHOSPHATE with/in SODIUM CHL ORIDE 0.9% 20 MM IV ASDIR (PRN)LACTULOSE 30 ML PO BID PRNIPRATROPIUM/ALBUTEROL SULFATE 3 ML NEB RTQ4H PRNPOTASSIUM BICARBONATE/CIT AC 20 MEQ PO ASDIRS ODIUM PHOSPHATE with/in SODIUM CHLORIDE 0.9% 30 MM IV ASDIR (PRN)cefTRIAXone with/in SODIUM CHLORIDE 0.9% 10 00 MG IV DAILY@1700(DC'd) FLUCONAZOLE 200 MG PO DAILY@210 0POTASSIUM CHLORIDE 20 MEQ IV ASDIR LABS GLU BED (02/02/22 08:01)GLUBED 132 H GLU BED (02/02/22 04:52)GLUBE D 257 H CBC W/AUTO DIFF (02/02/22 02:00)WHITE BLOOD CELL 9.3 RED BLOOD CELL 3.03 LHEMOGLOBIN 9.0L LHEMATOCRIT 28.0L LME AN CELL VOLUME 92MEAN CELL HGB 29.7MEAN CELL HGB CONCENT RATION 32.1RED CELL DISTRIBUTION WIDTH 13.7PLATELET COU NT 154MEAN PLATELET VOLUME 11.0NEUTROPHIL % 84.0 HIMMATURE GRANULOCYTE % 0.4LYMPHOCYTE % 9.9 LMONOCYTE % 5.2 EOSINOPHIL % 0.2BASOPHIL % 0.3NUCLEATED RBC % 0.0NEUTROPHIL # 7.76 HIMMATURE GRANULOCYTE # 0.040LYMPHOCYTE # 0.92 L MONOCYTE # 0.48EOSINOPHIL # 0.02BASOPHIL # 0.03NUCLEATED RB C # 0.000ANISOCYTOSIS 1+ HPLATELET ESTIMATE ADEQUATE PLATELET MORPHOLOGY NORMAL PLT MORPH PHOS (02/02/22 02:00)PHOSPHOROUS 2.0 L DIFFERENTIAL SCAN (02/02 02:00)RBC MORPHOLOGY REQUIRED NORMALPLATELET EST IMATE ADEQUATEPLATELET MORPHOLOGY NORMAL PLT MORPH BAS IC METABOLIC PANEL (02/02/22 02:00)SODIUM 140POTAS SIUM 3.3L LCHLORIDE 107CARBON DIOXIDE 27ANION GAP 9.3GLUCO SE 198H HBLOOD UREA NITROGEN 13GLOMERULAR FILTRATION RAT E 57 LCREATININE 1.2BUN/CREATININE RATIO 10.8 LCALCIU M 8.2 L GLU BED (02/02/22 00:24)GLUBED 113 H GLU BED ( 20:06)GLUBED 124 H GLU BED (02/01/22 16:39)GLUBE D 206 H GLU BED (02/01/22 12:08)GLUBED 323 H -- ATTESTATION -- TIME SPENT ON PATIENT CARE: - Direct 35 minutes CARE ACTIVITIES / CARE COORDINATION: - I have reviewed the histo ry and repeated the ingram elements - I have seen and exam ined this patient - I have reviewed the progress in the cl inical course since the lastexamination - I have discus sed the patient's condition with other members of the ca re team ADDITIONAL DETAIL: I HAVE SPENT >35 MINUTES IN T HE EVALUATION AND TREATMENT OF THIS PATIENT. Signed in PatientKeeper by Nini Doan MD on 09/19 at 09:28 at 0928ATTENTION EDITS and/or ADDENDA must be ma de in Patient Keeper for this note. Edits and ammen dments created in [employer] are not visible in [facility] t [facility]eeper or the legal medical record (HPF). RPT #: [id number] OF REPORT PRProgress [id number] Available for patient [id number]:0 1 2022-02-02 [id number]:20:00 [facility] 06:20:00 [facility] ([facility])Intensive Care Progress Note REPOR T #: [id number] REPORT STATUS: Signed DATE: 02/02/22 T EDUARDO: 0620 PATIENT: DANIELE HINKLE UNIT #: [id number] ROOM #: NC.4102 BED: 1 : 3 AGE: 71 SEX: F ATTEND: Erasmo Fay MD ADM DT: AUTHOR: Can Vinson APRN ATTENTION EDITS and/or ADDENDA must be made i n Patient Keeper for this note. Edits and ammendments c reated in [employer] are not visible in Patient Keeper or the legal medical record (HPF). -- CO-SIGNATURE -- COMMENTS:Author ized and Performed by: Rocky Miller MD I saw and evalu ated on the patient with the nurse practitioner. I personall yreviewed the HPI, PH, FH, SH, ROS and medications. I repe ated pertinentportions of the examination and reviewe d the relevant imaging and laboratorydata. Total criti abhinav care time (excluding KNIFEMAN time spent): 35 minutes Kelia d in PatientKeeper by ROCKY MILLER MD on 02/02/22 at 19:03 -- ASSESSMENT AND PLAN -- GENERAL ASSESSMENT:[facility] AssessmentAcute respirat ory failure with hypoxiaDKA, with comaAcute metabolic encephalopathyAnion-gap metabolic acidosisAcute renal failureSepsisPseudohyponatremiaconstipationDMHTN Dyslipidemi a Plan:Neurologic: Likely acute metabolic enceph alopathy 2/[address] head negative.Mental status improved ; does have baseline dementia Pulmonary: emergently intubate d in ED, as she desatted to 40s w/ bradycardia worseningmentation.extubated 10/3 AM Cardiovascu lar: Monitor HR, BP.Resume home antihypertensives, et c when med rec updated Hematologic: Monitor H/H, platelets. Transfuse to keep Hgb > 7.Heparin for DVT prophylaxis Suyapa l: ADOLFO improved with volume resuscitationMonitor UOP, B UN, Cr, avoid nephrotoxinsReplace electrolytes as needed . Gastrointestinal: CT A/P with large stool burden continue bowel regimentolerating soft diet -- ADAT Infect ious disease: Lactic acid improved. continue to trend WBC/fever curv; UA grew yeastcontinue cefepime Diflucan En docrine: off insulin gtt, transitioned to Lantus/SSI on 1 0/3 AMpt with tendency to get hypoglycemic if she does no t eat -- monitor closelyEndocrinology following Code Stat us: FullVTE ppx: Heparin Discussed with bedside RN, patient Subjectiveextubate d yesterday morning. sats mid 90s on room air.glucose accept ableok to downgrade to tele with sitter as pt impulsive HP I: Ms. Hinkle is a 71-year-old woman with a history of diabetes who presentswith acute encephalopathy. Patient's blood sugar was reportedly reading as"high" when her h usband checked it today. He called EMS, and the patient wasinitially refusing transport to the ED but th en acutely became altered. She wasbrought into the emergenc y department for evaluation --found to be in DKA w ithanion gap of 33, glucose of 976, and pH of 6.96. Her e yes are open, sheresponds and appropriately. Cannot hold a conversation. PMedHx: HTN, DM, CAD, retinopathy, diabetic neuropathy, dyslipidemiaPSurgHx: Retinal surgery , hysterectomyFamily history: NoncontributorySocHx : Former smoker Review of systems: Unable to assess due t o encephalopathy Physical ExamGeneral: Elderly Afr ican [place]an female. oriented to self/placeEyes: Ani cteric sclerae.Mouth: MMMNeck: Supple.CV: RRR. Normal S 1 and S2.Pulm: no wheezing or Rales appreciated. room airAbdomen: Soft, no evidence of tenderness.Extremities: No lower extremity edema.Skin: Warm, dry.Neuro: oriented x 2, underlying dementia, moves all extremitiesPsych: normal mood. impulsive -- OBJECTIVE -- VITALS (02/01 00 :30 - 02/02 00:30):Temperature F: 99.2 (99.2 - 99.9)Temperat ure C: 37.8 (37.4 - 38.5)Temperature source: OralPulse Rate 86 (86 - 131)Respiratory rate: 16 (7 - 32)BP: 125/80 (106 /56 - 159/99)Blood pressure source: Monitor I/Os ( 07:00 - 02/01 07:00):Net -1,525.00Intake 350.00Output 1, 875 -- DATA -- MEDICATIONS SODIUM PHOSPHATE with/in SODIUM C HLORIDE 0.9% 15 MM IV ASDIR (PRN)DEXTROSE 50%-WATER 50 M L IV ASDIRMAGNESIUM 5 GM IV ASDIR (PRN)INSULIN GLARGI NE 24 UNITS SUBQ QAMMUPIROCIN 1 APPLIC NASAL BIDGLUCAGON 1 M G IM ASDIR HEPARIN SODIUM,PORCINE 5000 UNIT SUBQ [id number] MINOPHEN 650 MG FEED-TUBE Q6H PRNSOD BIPHOS/POT PHOSPHATE 1 PKT PO ASDIR (PRN)polyethylene glycoL 3350 1 PKT PO TATIANA LY PRNINSULIN LISPRO 0 UNITS SUBQ [id number] 3 GM IV ASDIR (PRN)MAGNESIUM 2 GM IV ASDIR (PRN)METOPROLOL TAR TRATE 12.5 MG PO [id number] HCL 10 MG IV Q4HR PRNMAGN ESIUM 4 GM IV ASDIR (PRN)LABETALOL HCL 10 MG IV Q2H PRNSODI UM PHOSPHATE with/in SODIUM CHLORIDE 0.9% 20 MM IV ASDIR (PRN)LACTULOSE 30 ML PO BID PRNIPRATROPIUM/ALBUT SHELBY SULFATE 3 ML NEB RTQ4H PRNPOTASSIUM BICARBONATE/ CIT AC 20 MEQ PO ASDIRSODIUM PHOSPHATE with/in SODIUM CHLO RIDE 0.9% 30 MM IV ASDIR (PRN)CEFEPIME HCL with/in SODIUM CHLORIDE 0.9% 1 GM IV [id number] 200 MG PO DAILY@210 0POTASSIUM CHLORIDE 20 MEQ IV ASDIRFAMOTIDINE 20 MG PO WILMAN Y LABS GLU BED (02/02/22 00:24)GLUBED 113 H GLU BED ( 20:06)GLUBED 124 H GLU BED (02/01/22 16:39)GLUB ED 206 H GLU BED (02/01/22 12:08)GLUBED 323 H GLU BED ( 07:51)GLUBED 288 H ARTERIAL BLOOD GAS (02/01/22 04:47)ARTERIAL BLOOD GAS PH 7.435ARTERIAL BLOOD GAS PCO2 32.0 LARTERIAL BLOOD GAS PO2 124.7 HBICARBONATE TOTAL HCO3 21.0 LBASE EXCESS -2.5 LABG O2 SATURATION 98.8 H ABG TYPE ArterialARTERIAL FIO2 30.0PaO2/FiO2 415.60ABG VE NT MODE PRVCABG VENT RESP RATE 14ABG TIDAL VOLUME 350ABG PEEP 5.0ABG SITE Left RadialALLENS TEST YesTOTAL HGB 11.4 LTCO2 ARTERIAL 22.0 GLU BED (02/01/22 04:44)GLUBED 449 *H GLU BED (02/01/22 04:39)GLUBED 454 *H DIFFERENTIAL SCAN (02/01/22 01:30)RBC MORPHOLOGY REQUIRED NORMALPLATELET EST IMATE ADEQUATEPLATELET MORPHOLOGY NORMAL PLT MORPH CBC W/AUTO DIFF (02/01/22 01:30)WHITE BLOOD CELL 13.2H HRED BLOOD CELL 3.25 LHEMOGLOBIN 9.7L LHEMATOCRIT 29.2L LMEAN CE LL VOLUME 90 DMEAN CELL HGB 29.8MEAN CELL HGB CONCENTRATIO N 33.2RED CELL DISTRIBUTION WIDTH 13.6PLATELET COUNT 166ME AN PLATELET VOLUME 11.5NEUTROPHIL % 86.0 HIMMATURE GRANULOC YTE % 1.5 HLYMPHOCYTE % 5.9 LMONOCYTE % 5.5EOSINOPHIL % 0. 8BASOPHIL % 0.3NUCLEATED RBC % 0.0NEUTROPHIL # 11.35 HIMMATU RE GRANULOCYTE # 0.200 HLYMPHOCYTE # 0.78 LMONOCYTE # 0.73EOSINOPHIL # 0.10BASOPHIL # 0.04NUCLEATED R BC # 0.000PLATELET ESTIMATE ADEQUATEPLATELET MORPHOLO GY NORMAL PLT MORPH COMPREHENSIVE METABOLIC PANEL ( 2 01:30)SODIUM 139POTASSIUM 3.6CHLORIDE 106CARBON DIOXIDE 27ANION GAP 9.6GLUCOSE 313D H D HBLOOD UREA NIT ROGEN 17GLOMERULAR FILTRATION RATE 52 LCREATININE 1.3BUN/CREATININE RATIO 13.1TOTAL PROTEIN 6.5ALB UMIN 2.3 LCALCIUM 8.0 LBILIRUBIN TOTAL 1.0SGOT/AST 174 HS GPT/ALT 53 HALKALINE PHOSPHATASE 275 H Signed in PatientKee per by Can Vinson APRN on 02/02/22 at 06:26 Cosig rudi by ROCKY MILLER MD on 02/02/22 at 19:03 Electron ically Signed by Can Vinson on 02/02/22 at 1903 at 1903ATTENTION EDITS and/or ADDENDA must be ma de in Patient Keeper for this note. Edits and ammen dments created in [facility] are not visible in [facility] t Keeper or the legal medical record (HPF). RPT #: [id number] OF REPORT PRProgress [id number]:[id number] Available for patient [id number]:4 7 2022-02-01 [id number]:26:00 [facility] 10:26:00 [facility] ([facility])Endocrinology Progress Note REPORT #: [id number] REPORT STATUS: Signed DATE: 02/01/22 T EDUARDO: 1026 PATIENT: DANIELE HINKLE UNIT #: [id number] ROOM #: NC.IC09 BED: A : AGE: 71 SEX: F ATTEND: Erasmo Fay MD ADM DT: AUTHOR: Nini Doan MD ATTENTION EDITS and/or ADDENDA must be made i n Patient Keeper for this note. Edits and ammendments c reated in [employer] are not visible in Patient Keeper o r the legal medical record (HPF). -- ASSESSMENT AND PLAN -- PROBLEMS : 1: Type 1 diabetes mellitus with ketoacidosis without coma A/P: UNCONTROLLED (HGBA1C=>14%,HYPERGLYCEMIA) TYPE I DM IN DKA. DKA RESOLVED:IRVXODF=014 AG=9.6. OBSERVE ON REVI SED SQ BASAL/BOLUS INSULIN. -- SUBJECTIVE -- CHIEF COMPLAINT:HYPERGLYCEMIA,DKA HPI: IN ICU. ON NC. NPO. -REVIEW OF SYSTEMS- GENERAL: UNABLE TO OBTAIN: L ETHARGIC -- OBJECTIVE -- VITALS (01/31 10:26 - 02/01 10:26): Temperature C: 37.6 (37.1 - 38.5)Temperature source: COREPul se Rate 106 (93 - 126)Respiratory rate: 11 (3 - 29)BP: 151/7 4 (98/58 - 188/92)Blood pressure source: Monitor I/Os ( 3 07:00 - 02/01 07:00):Net -1,525.00Intake 350.00Output 1, 875 -EXAM- GENERAL: Well developed, well nourished, in no a pparent distress. THINHEAD: Normocephalic, atraumatic.NE CK: trachea midline.CHEST: Grossly normal appearance.LUNGS: NORMAL CHEST WALL MOVEMENTHEART: TACHYCARDIAABDOMEN: NON-DISTENDEDNEUROLOGICAL: DROWSY BUT AROUSABLE -- DATA -- MEDICATIONS SODIUM PHOSPHATE with/in SODIUM CHLO RIDE 0.9% 15 MM IV ASDIR (PRN)DEXTROSE 50%-WATER 50 ML IV ASDIRMAGNESIUM 5 GM IV ASDIR (PRN)INSULIN GLARGI NE 24 UNITS SUBQ QAMMUPIROCIN 1 APPLIC NASAL BIDGLUCAGON 1 M G IM ASDIRHEPARIN SODIUM,PORCINE 5000 UNIT SUBQ [id number] 650 MG FEED-TUBE Q6H PRNSODIU M CHLORIDE 0.9% 1000 ML IV ASDIRSOD BIPHOS/POT PHOSPHATE 1 PKT PO ASDIR (PRN)polyethylene glycoL 3350 1 PKT PO TATIANA LY PRNINSULIN LISPRO 0 UNITS SUBQ [id number] 3 GM IV ASDIR (PRN)MAGNESIUM 2 GM IV ASDIR (PRN)METOPROLOL TAR TRATE 12.5 MG PO E73VBzvlnCKTAEOH HCL 10 MG IV Q4HR PRNMAGN ESIUM 4 GM IV ASDIR (PRN)LABETALOL HCL 10 MG IV Q2H PRNSODI UM PHOSPHATE with/in SODIUM CHLORIDE 0.9% 20 MM IV ASDIR (PRN)LACTULOSE 30 ML PO BID PRNIPRATROPIUM/ALBUT SHELBY SULFATE 3 ML NEB RTQ4H PRNPOTASSIUM BICARBONATE/ CIT AC 20 MEQ PO ASDIRSODIUM PHOSPHATE with/in SODIUM CHLO RIDE 0.9% 30 MM IV ASDIR (PRN)CEFEPIME HCL with/in SODIUM CHLORIDE 0.9% 1 GM IV [id number] CHLORIDE 20 MEQ IV ASDIRFAMOTIDINE 20 MG PO DAILY LABS GLU BED (08/20 07:51)GLUBED 288 H ARTERIAL BLOOD GAS (02/01/22 04:47)ARTERIAL BLOOD GAS PH 7.435ARTERIAL BLOOD GAS PCO2 32.0 LARTERIAL BLOOD GAS PO2 124.7 HBICARBONATE TOTAL HCO3 21.0 LBASE EXCESS -2.5 LABG O2 SATURATION 98.8 H ABG TYPE ArterialARTERIAL FIO2 30.0PaO2/FiO2 415.60ABG V ENT MODE PRVCABG VENT RESP RATE 14ABG TIDAL VOLUME 350ABG PEEP 5.0ABG SITE Left RadialALLENS TEST YesTOTAL HGB 11.4 LTCO2 ARTERIAL 22.0 GLU BED (02/01/22 04:44)GLUBED 449 *H GLU BED (02/01/22 04:39) GLUBED 454 *H DIFFERENTIAL SCAN (02/01/22 01:30)RBC MORPHOLOGY REQUIRED NORMALPLATELET EST IMATE ADEQUATEPLATELET MORPHOLOGY NORMAL PLT MORPH CBC W/AUTO DIFF (02/01/22 01:30)WHITE BLOOD CELL 13.2H HRED BLOOD CELL 3.25 LHEMOGLOBIN 9.7L LHEMATOCRIT 29.2L LMEAN C ELL VOLUME 90 DMEAN CELL HGB 29.8MEAN CELL HGB CONCENTRATIO N 33.2RED CELL DISTRIBUTION WIDTH 13.6PLATELET COUNT 166ME AN PLATELET VOLUME 11.5NEUTROPHIL % 86.0 HIMMATURE GRANULOCY TE % 1.5 HLYMPHOCYTE % 5.9 LMONOCYTE % 5.5EOSINOPHIL % 0 .8BASOPHIL % 0.3NUCLEATED RBC % 0.0NEUTROPHIL # 11.35 HIMMA TURE GRANULOCYTE # 0.200 HLYMPHOCYTE # 0.78 LMONOCYTE # 0.73EOSINOPHIL # 0.10BASOPHIL # 0.04NUCLEATED RB C # 0.000PLATELET ESTIMATE ADEQUATEPLATELET MORPHOLO GY NORMAL PLT MORPH COMPREHENSIVE METABOLIC PANEL ( 2 01:30)SODIUM 139POTASSIUM 3.6CHLORIDE 106CARBON DIOXIDE 27ANION GAP 9.6GLUCOSE 313D H D HBLOOD UREA NITR OGEN 17GLOMERULAR FILTRATION RATE 52 LCREATININE 1.3BUN/CREATININE RATIO 13.1TOTAL PROTEIN 6.5ALB UMIN 2.3 LCALCIUM 8.0 LBILIRUBIN TOTAL 1.0SGOT/AST 174 H SGPT/ALT 53 HALKALINE PHOSPHATASE 275 H GLU BED (01/31/22 20 :24)GLUBED 159 H GLU BED (01/31/22 19:32)GLUBED 43 *L GLU BED (01/31/22 16:29)GLUBED 125 H GLU BED (01/31/22 1 6:06)GLUBED 38 *L GLU BED (01/31/22 11:36)GLUBED 156 H GLU BED (01/31/22 10:56)GLUBED 65 L BASIC METABOLIC PANE L (01/31/22 10:40)SODIUM 143POTASSIUM 3.9CHLORIDE 109H HCARB ON DIOXIDE 29ANION GAP 8.9GLUCOSE 71BLOOD UREA NITROGEN 17G LOMERULAR FILTRATION RATE 41 LCREATININE 1.6H HBUN/CREATIN INE RATIO 10.6 LCALCIUM 8.5 PHOS (01/31/22 10:40)PHOSPHORO US 2.9 MAG (01/31/22 10:40)MAGNESIUM 2.0 -- ATTESTATION -- TIME SPENT ON PATIENT CARE: - Direct 35 minutes CARE ACTIVI TIES / CARE COORDINATION: - I have reviewed the history and repeated the ingram elements - I have seen and examined this patient - I have reviewed the progress in the clinical cou rse since the lastexamination - I have discussed the blayne nt's condition with other members of the care team AD DITIONAL DETAIL:I HAVE SPENT >35 MINUTES IN THE EVALUATIO N AND TREATMENT OF THIS PATIENT. Signed in [facility] er by Nini Doan MD on 02/01/22 at 10:33 at 1033ATTENTION EDITS and/or ADDENDA must be ma de in Patient Keeper for this note. Edits and amme ndments created in [facility] are not visible in [facility] t Keeper or the legal medical record (HPF). [facility] #: [id number] OF REPORT PRProgress [id number]:[id number] Available for patient [id number]:3 6 2022-02-01 [id number]:02:00 [facility] HCANC 09:02:00 [facility] ([facility])Pharmacy Prog.Note-VancomycinREPORT#:[id number] REPORT STA TUS: SignedDATE:02/01/22 TIME: 09 PATIENT: Parag HINKLE UNIT #: [id number]#: [id number] R OOM: NC.FC22POY: ADOB: [birth year] AGE: 71 SEX: F ATTEND : Erasmo Fay [facility] AUTHOR: Catarino Galaviz [facility]ly [facility] * ALL edits or amendments must be made on the electronic/computer document * Vancomycin Vancom ycin Medication TherapyTreatment plan: change regimenRegimen:Vancomycin discontinued per Physi janet. Thank you for the consult. at 0903 RPT #:[id number] OF REPORTPRProgress [id number]:[id number] ilable for patient [id number]:03:29 2022-02-01 [id number]:22:00 [facility] 08:22:00 [place] ([facility])Intensive Care Progress Note REPOR T #: [id number] REPORT STATUS: Signed DATE: 02/01/22 T EDUARDO: 821 PATIENT: DANIELE HINKLE UNIT #: [id number] ROOM #: NC.IC09 BED: A : 3 AGE: 71 SEX: F ATTEND: Erasmo Fay MD ADM DT: AUTHOR: Rocky Miller MD ATTENTION EDITS and/or ADDENDA must be made i n Patient Keeper for this note. Edits and ammendments c reated in [employer] are not visible in Patient Keeper or the legal medical record (HPF). -- ASSESSMENT AND PLAN -- GENERAL ASSESSMENT:[facility] AssessmentAcute respirat ory failure with hypoxiaDKA, with comaAcute metabolic encephalopathyAnion-gap metabolic acidosisAcute renal failureSepsisPseudohyponatremiaconstipationDMHTN Dyslipidemi a Plan:Neurologic: patient emergently intubated in ED, as she desatted to 40s w/ bradycardia worsening men tation.pt intubated/sedated. Likely w/ acute metabolic enc ephalopathy 2/[address] headnegative.More awake overnight in to this morning. Tolerating spontaneous awakening trial Pulmonary: COVID negativemental status precludes vent weani ng currently -- wean as tolerated.ABG acceptable. P /F ratio 541CXR reviewed, No acute processWorking towards extubation today. Cardiovascular: Monitor HR, BP.Resume jane e antihypertensives, ASA, Plavix when her mentatio n improves. Hematologic: Monitor H/H, platelets. Transfuse t o keep Hgb > 7.Heparin for DVT prophylaxis Renal: Monitor U OP, BUN, Cr, avoid nephrotoxinsReplace electrolytes as ne eded.In the past, ADOLFO has improved with volume resuscitation . Continue IV fluids asper DKA protocol.(01/29) 2 amps HCO3 for pH 6.9/bicarb 6. 2 more amps HCO3 given for repeat pH6.86/bicarb 4Elevated potassium improving. Gastrointestinal: CT A/P with large stool burden -- f/u official readstart suppository PO bowel regimen -- will likely require enemaInitiate tube feedings Infec tious disease: Trend WBC, fever curve, Follow-up cultu res.Lactic acid elevated. No evidence of pneumonia. UA is p ending. CT A/P pending-- trend lactic acidempiric Vanco and cefepime. Endocrine: pt given an additional 10 units IV in sulin 1L IVF as glucose essentiallyunchanged (900+ on arr ival from ED)insulin drip and aggressive IV fluid hydration.Endocrinology consulted. Dispo: ICUCod e Status: FullVTE ppx: Heparin Discussed with bedside RN, patient SubjectiveEvents no sarah beth Patient seen and examinedMore awake this morningExtubate d HPI: Ms. Hinkle is a 71-year-old woman with a history of diabetes who presentswith acute encephalopathy. Patient's blood sugar was reportedly reading as"high" when her h usband checked it today. He called EMS, and the patient wasinitially refusing transport to the ED but th en acutely became altered. She wasbrought into the emergenc y department for evaluation --found to be in DKA w ithanion gap of 33, glucose of 976, and pH of 6.96. Her e yes are open, sheresponds and appropriately. Cannot hold a conversation. Past medical history: HTN, DM, CAD , retinopathy, diabetic neuropathy,dyslipidemiaPSu rgHx: Retinal surgery, hysterectomyFamily history: NoncontributorySocHx: Former smoker Review of sy stems: Unable to assess due to encephalopathy Physical ExamGeneral: Elderly female.Eye s: Anicteric sclerae.Mouth: MMMNeck: Supple.CV: tac hycardic. Normal S1 and S2.Pulm: mechanically ventilated b reaths. no wheezing or Rales appreciated.Abdomen: Soft, no evidence of tender.Extremities: No lower extremity edema.Ski n: Warm, dry.Neuro: limited exam d/t sedationPsych: defer d/t sedation -- OBJECTIVE -- VITALS (01/31 08:22 - 1 08:22):Temperature C: 37.9 (37.1 - 38.5)Temperat ure source: COREPulse Rate 100 (96 - 126)Respiratory rate: 15 (3 - 29)BP: 126/68 (98/58 - 188/92)Blood pressure cleve rce: Monitor I/Os (01/31 07:00 - 02/01 07:00):Net -1,525.00Intake 350.00Output 1,875 -- DATA -- M EDICATIONS SODIUM PHOSPHATE with/in SODIUM CHLORIDE 0.9% 15 MM IV ASDIR (PRN)DEXTROSE 50%-WATER 50 ML IV ASDIRMAGN ESIUM 5 GM IV ASDIR (PRN)INSULIN GLARGINE 24 UNITS SUBQ QAM MUPIROCIN 1 APPLIC NASAL BIDVANCOMYCIN PHARMACY TO DOSE 1 EA CH IV ASDIRGLUCAGON 1 MG IM ASDIR HEPARIN SODIUM,PORCI NE 5000 UNIT SUBQ [id number] 650 MG FEED-TUBE Q6 H PRNSODIUM CHLORIDE 0.9% 1000 ML IV ASDIRSOD BIPHOS/POT JUMANA SPHATE 1 PKT PO ASDIR (PRN)polyethylene glycoL 3350 1 PKT PO DAILY PRNMAGNESIUM 3 GM IV ASDIR (PRN)MAGNESIUM 2 GM I V ASDIR (PRN)METOPROLOL TARTRATE 12.5 MG PO [id number] ZINE HCL 10 MG IV Q4HR PRNMAGNESIUM 4 GM IV ASDIR (PRN)LABET ALOL HCL 10 MG IV Q2H PRNSODIUM PHOSPHATE with/in SODIUM CHL ORIDE 0.9% 20 MM IV ASDIR (PRN)LACTULOSE 30 ML PO BID PRNIPRATROPIUM/ALBUTEROL SULFATE 3 ML NEB RTQ4H PRNVANCOMYCIN HCL with/in SODIUM CHLORIDE 0.9% 7 50 MG IV BID@1100,2300POTASSIUM BICARBONATE/CIT AC 20 MEQ PO ASDIRSODIUM PHOSPHATE with/in SODIUM CHLORIDE 0. 9% 30 MM IV ASDIR (PRN)CEFEPIME HCL with/in SODIUM CHLORIDE 0.9% 1 GM IV [id number] CHLORIDE 20 MEQ IV ASDIRFAMOTID INE 20 MG PO DAILYINSULIN LISPRO 0 UNITS SUBQ Q4H LABS GLU BED (02/01/22 07:51)GLUBED 288 H ARTERIAL BLOOD GAS (02/01/22 04:47)ARTERIAL BLOOD GAS PH 7.435ARTERIAL BLOOD GAS PCO2 32.0 LARTERIAL BLOOD GAS PO2 124.7 HBICARBONATE TOTAL HCO3 21.0 LBASE EXCESS -2.5 LABG O2 SATURATION 98.8 H ABG TYPE ArterialARTERIAL FIO2 30.0PaO2/FiO2 415.60ABG VE NT MODE PRVCABG VENT RESP RATE 14ABG TIDAL VOLUME 350ABG PEEP 5.0ABG SITE Left RadialALLENS TEST YesTOTAL HGB 11.4 LTCO2 ARTERIAL 22.0 GLU BED (02/01/22 04:44)GLUBED 449 *H GLU BED (02/01/22 04:39)GLUBED 454 *H DIFFERENTIAL SCAN (02/01/22 01:30)RBC MORPHOLOGY REQUIRED NORMALPLATELET EST IMATE ADEQUATEPLATELET MORPHOLOGY NORMAL PLT MORPH CB C W/AUTO DIFF (02/01/22 01:30)WHITE BLOOD CELL 13.2H HRED BLOOD CELL 3.25 L HEMOGLOBIN 9.7L LHEMATOCRIT 29.2L LMEAN CELL VOLUME 90 DMEAN CELL HGB 29.8MEAN CELL HGB CONCENTRATIO N 33.2RED CELL DISTRIBUTION WIDTH 13.6PLATELET COUNT 166ME AN PLATELET VOLUME 11.5NEUTROPHIL % 86.0 HIMMATURE GRANULOCY TE % 1.5 HLYMPHOCYTE % 5.9 LMONOCYTE % 5.5EOSINOPHIL % 0 .8BASOPHIL % 0.3NUCLEATED RBC % 0.0NEUTROPHIL # 11.35 HIMMA TURE GRANULOCYTE # 0.200 HLYMPHOCYTE # 0.78 LMONOCYTE # 0.73EOSINOPHIL # 0.10BASOPHIL # 0.04NUCLEATED RB C # 0.000PLATELET ESTIMATE ADEQUATEPLATELET MORPHOLO GY NORMAL PLT MORPH COMPREHENSIVE METABOLIC PANEL ( 2 01:30)SODIUM 139POTASSIUM 3.6CHLORIDE 106CARBON DIOXIDE 27ANION GAP 9.6GLUCOSE 313D H D HBLOOD UREA NITR OGEN 17GLOMERULAR FILTRATION RATE 52 LCREATININE 1.3BUN/CREATININE RATIO 13.1TOTAL PROTEIN 6.5ALB UMIN 2.3 LCALCIUM 8.0 LBILIRUBIN TOTAL 1.0SGOT/AST 174 H SGPT/ALT 53 HALKALINE PHOSPHATASE 275 H GLU BED (01/31/22 20 :24)GLUBED 159 H GLU BED (01/31/22 19:32)GLUBED 43 *L GLU BED (01/31/22 16:29)GLUBED 125 H GLU BED (01/31/22 1 6:06)GLUBED 38 *L GLU BED (01/31/22 11:36)GLUBED 156 H GLU B ED (01/31/22 10:56) GLUBED 65 L BASIC METABOLIC CAMACHO EL (01/31/22 10:40)SODIUM 143POTASSIUM 3.9CHLORIDE 109H HCARBON DIOXIDE 29ANION GAP 8.9GLUCOSE 71BLOOD U JACQUE NITROGEN 17GLOMERULAR FILTRATION RATE 41 LCREATI NINE 1.6H HBUN/CREATININE RATIO 10.6 LCALCIUM 8.5 PHOS ( 10:40)PHOSPHOROUS 2.9 MAG (01/31/22 10:40)MAGNES IUM 2.0 Signed in PatientKeeper by Rocky Miller MD on 02/01/22 at 10:46 at 1046ATTENTION EDITS and/or ADDENDA must be ma de in Patient Keeper for this note. Edits and ammen dments created in [facility] are not visible in Patien t Keeper or the legal medical record ([facility]). RPT #: [id number] OF REPORT PRProgress [id number] Available for patient [id number]:2 8 2022-02-01 [id number]:45:00 [facility] 07:45:00 [place] ([facility])Family Medicine Progress Note REPO RT #: [id number] REPORT STATUS: Signed DATE: 02/01/22 T EDUARDO: 0745 PATIENT: DANIELE HINKLE UNIT #: [id number] ROOM #: NC.IC09 BED: A : 3 AGE: 71 SEX: F ATTEND: Erasmo Fay MD ADM DT: AUTHOR: Erasmo Fay MD ATTENTION EDITS and/or ADDENDA must be made i n Patient Keeper for this note. Edits and ammendments c reated in [facility] are not visible in Patient Keeper or the legal medical record ([facility]). -- ASSESSMENT AND PLAN -- PROBLEMS : 1: Respiratory failure with hypoxiaA/P: intubated a nd mech ventilated. 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 5: Diabetic visual loss: better eye: profound visio n impairment; lesser eye:near-total vision impairm ent, with macular edema, with retinopathy, associatedwith type 1 diabetes mellitus 6: Mixed hyperlipidemia 7: Hyp ertension 8: CAD (coronary artery disease) 9: Peripheral a rterial disease 10: Chronic kidney disease, stage 3aA/P: due to DM 11: UTI (urinary tract infection)A/P: abx 12: Ov eractive bladderA/P: 13: Acute metabolic encephalopathyA/ P: due to DKA,possible anoxic injury 14: Elevated liver fu nction testsA/P: trend levels -- SUBJECTIVE -- HPI:radha ins unresponsive, requiring mech ventilation , no ac [place] events overnight -REVIEW OF SYSTEMS- GENERAL: unable to obtain -- OBJECTIVE -- VITALS (01/31 11:33 - 02/01 11:33): Temperature C: 37.6 (37.1 - 38.5)Temperature source: COREPul se Rate 106 (93 - 122)Respiratory rate: 11 (3 - 27)BP: 1 51/74 (98/58 - 188/92)Blood pressure source: Monitor I /Os (01/31 07:00 - 02/01 07:00):Net -1,525.00Intake 350.00O utput 1,875 -EXAM- GENERAL: unresponsive and intubateedNECK: No masses, no thyromegaly, no abnormal cervical nodes, tra courtney midline.LUNGS: Respirations unlabored, clear to auscultation bilaterally, no wheezing, no ronchi , no ralesHEART: Regular rate and rhythm, normal S1, S2, no murmurs, no rubs, no gallops, no clicks.ABDOMEN: + BS soft, flat, nontender, the liver and spleen are not pa lpable, no palpable masses, no herniasMUSCULOSKELETAL: No o bvious deformitiesEXTREMITIES: No clubbing, cyanosis or edemaNEUROLOGICAL: unresponsive with some non pu rposeful movements of all extremeties withdraws to noxiou s stimSKIN: No pallor, no jaundice, no rash, normal turgorLY MPH NODES: None palpable cervical, axillary, supraclavicula r or inguinal locations -- DATA -- MEDICATIONS SODIUM PHOSPHATE with/in SODIUM CHLORIDE 0.9% 15 MM IV ASDIR (PRN )DEXTROSE 50%-WATER 50 ML IV ASDIRMAGNESIUM 5 GM IV ASDIR (PRN) INSULIN GLARGINE 24 UNITS SUBQ QAMMUPIROCIN 1 AP PLIC NASAL BIDGLUCAGON 1 MG IM ASDIRHEPARIN SODIUM,PORCINE 5000 UNIT SUBQ [id number] 650 MG FEED-TUBE Q6H PRN SODIUM CHLORIDE 0.9% 1000 ML IV ASDIRSOD BIPHOS/POT JUMANA SPHATE 1 PKT PO ASDIR (PRN)polyethylene glycoL 3350 1 PKT PO DAILY PRNINSULIN LISPRO 0 UNITS SUBQ [id number] 3 GM IV ASDIR (PRN)MAGNESIUM 2 GM IV ASDIR (PRN)METOPROLOL TAR TRATE 12.5 MG PO [id number] HCL 10 MG IV Q4HR PRNMAGN ESIUM 4 GM IV ASDIR (PRN)LABETALOL HCL 10 MG IV Q2H PRNSODI UM PHOSPHATE with/in SODIUM CHLORIDE 0.9% 20 MM IV ASDIR (PRN)LACTULOSE 30 ML PO BID PRNIPRATROPIUM/ALBUT SHELBY SULFATE 3 ML NEB RTQ4H PRNPOTASSIUM BICARBONATE/ CIT AC 20 MEQ PO ASDIRSODIUM PHOSPHATE with/in SODIUM CHLO RIDE 0.9% 30 MM IV ASDIR (PRN)CEFEPIME HCL with/in SODIUM CHLORIDE 0.9% 1 GM IV [id number] CHLORIDE 20 MEQ IV ASDIRFAMOTIDINE 20 MG PO DAILY LABS GLU BED (08/20 07:51)GLUBED 288 H ARTERIAL BLOOD GAS (02/01/22 04:47)ARTERIAL BLOOD GAS PH 7.435ARTERIAL BLOOD GAS PCO2 32.0 LARTERIAL BLOOD GAS PO2 124.7 HBICARBONATE TOTAL HCO3 21.0 LBASE EXCESS -2.5 LABG O2 SATURATION 98.8 H ABG TYPE ArterialARTERIAL FIO2 30.0PaO2/FiO2 415.60ABG VE NT MODE PRVCABG VENT RESP RATE 14ABG TIDAL VOLUME 350ABG PEEP 5.0ABG SITE Left RadialALLENS TEST YesTOTAL HGB 11.4 LTCO2 ARTERIAL 22.0 GLU BED (02/01/22 04:44)GLUBED 449 *H GLU BED (02/01/22 04:39)GLUBED 454 *H DIFFERENTIAL SCAN (02/01/22 01:30)RBC MORPHOLOGY REQUIRED NORMALPLATELET EST IMATE ADEQUATEPLATELET MORPHOLOGY NORMAL PLT MORPH CBC W/AUTO DIFF (02/01/22 01:30) WHITE BLOOD CELL 13.2H HRE D BLOOD CELL 3.25 LHEMOGLOBIN 9.7L LHEMATOCRIT 29.2L LME AN CELL VOLUME 90 DMEAN CELL HGB 29.8MEAN CELL HGB FRANCK NTRATION 33.2RED CELL DISTRIBUTION WIDTH 13.6PLATELET COU NT 166MEAN PLATELET VOLUME 11.5NEUTROPHIL % 86.0 HIMMATURE GRANULOCYTE % 1.5 HLYMPHOCYTE % 5.9 LMONOCYTE % 5.5EOSINOPHIL % 0.8BASOPHIL % 0.3NUCLEATED RBC % 0.0NEUTROPHIL # 11.35 HIMMATURE GRANULOCYTE # 0. 200 HLYMPHOCYTE # 0.78 LMONOCYTE # 0.73EOSINOPHIL # 0.10BASOPHIL # 0.04NUCLEATED RBC # 0.000PLATELET ESTIMATE ADEQUATEPLATELET MORPHOLOGY NORMAL PLT MORPH COM PREHENSIVE METABOLIC PANEL (02/01/22 01:30)SODIUM 139POTASS IUM 3.6CHLORIDE 106CARBON DIOXIDE 27ANION GAP 9.6GLU COSE 313D H D HBLOOD UREA NITROGEN 17GLOMERULAR FILTRATION R ATE 52 LCREATININE 1.3BUN/CREATININE RATIO 13.1TOTAL IA OTEIN 6.5ALBUMIN 2.3 LCALCIUM 8.0 LBILIRUBIN TOTAL 1.0 SGOT/AST 174 HSGPT/ALT 53 HALKALINE PHOSPHATASE 275 H GLU BED (01/31/22 20:24)GLUBED 159 H GLU BED (01/31/22 1 9:32)GLUBED 43 *L GLU BED (01/31/22 16:29)GLUBED 125 H GLU BED (01/31/22 16:06)GLUBED 38 *L GLU BED (01/31/22 1 1:36)GLUBED 156 H Signed in PatientKeeper by ROSS FAY MD on 02/01/22 at 11:42ATTENTION EDITS and/or ADDENDA must be m alexandra in Patient Keeper for this note. Edits and ammen dments created in [employer] are not visible in Patien t Keeper or the legal medical record ([facility]). RPT #: [id number] OF REPORT PRProgress [id number]:[id number] Available for patient [id number]:0 2 2022-01-31 [id number]:31:00 [facility] 18:31:00 [place] ([facility])Family Medicine Progress Note REPO RT #: [id number] REPORT STATUS: Signed DATE: 01/31/22 T EDUARDO: 1831 PATIENT: DANIELE HINKLE UNIT #: [id number] ROOM #: NC.IC09 BED: A : 3 AGE: 71 SEX: F ATTEND: Erasmo Fay MD ADM DT: AUTHOR: Britney Winchester DO ATTENTION EDITS and/or ADDENDA must be made i n Patient Keeper for this note. Edits and ammendments c reated in [facility] are not visible in Patient Keeper or the legal medical record ([facility]). -- ASSESSMENT AND PLAN -- PROBLEMS : 1: Respiratory failure with hypoxiaA/P: intubated a nd mech ventilated.off of sedationnow on cpapnot followi ng commands well to extubate at this time 2: Type 1 diabetes mellitus with ketoacidosis, uncontrolledA/P: likely due t o missing medications - [facility] have [facility].will consult CM for likely need for placement endocri ne consulted glucose levels have been corrected, an ion gap resolved, insulin drip stopped follow icu dka pr otocols 3: Type 1 diabetes mellitus with diabetic chronic k idney disease 4: Type 1 diabetes mellitus with diabeti c polyneuropathy 5: Diabetic visual loss: better e ye: profound vision impairment; lesser eye:near-tota l vision impairment, with macular edema, with retinopathy , associatedwith type 1 diabetes mellitus 6: Mixed hyperlipidemia 7: Hypertension 8: CAD (coronary artery disease) 9: Peripheral arterial disease 10: Loom Tuner neeta kidney disease, stage 3aA/P: due to DM 11: UTI (urinary tract infection)A/P: abxf/u cx narrow with sensitiviti es 12: Overactive bladderA/P: -- SUBJECTIVE -- PATIENT NARRATIVE:on cpap since this morning, not respon ding well to commands. followsoccasionally -REVIEW OF [facility]- COMMENT: unable to obtain -- OBJECTIVE -- VITALS (01/30 18:31 - 01/31 18:31):Temperature C: 37.2 (36.8 - 38.6)Temperature source: COREPulse Rate 114 (96 - 135)Respiratory rate: 19 (6 - 29)BP: 147/83 (100 /59 - 179/115)Blood pressure source: Monitor I/Os ( 07:00 - 01/31 07:00):Net -750Output 750 -EXAM- GENERAL: intubated and mechanically ventilated, laying restlesslyH EAD: Normocephalic, atraumatic.EARS: External ears wi thout deformity, erythema or edemaNOSE: No deformity, no discharge, no inflammation, no lesions.MOUTH: or opharynx moist and pink.NECK: No masses, no thyromegaly, no abnormal cervical nodes, trachea midline.CHEST: Grossly normal appearance.LUNGS: Respirations unlabored, clear to auscultation bilaterally, no wheezing, no ronchi , no rales, mechanical ventilationHEART: Regular rate and rh ythm, normal S1, S2, no murmurs, no rubs, no gallops, no clicks.ABDOMEN: + BS soft, flat, nontender, the liver and spleen are not palpable, no palpable masses, no herniasMUSCULOSKELETAL: No obvious deformitiesEX TREMITIES: No clubbing, cyanosis or edemaNEUROLOGICAL: unre sponsive with some non purposeful movements of all extremetiesPULSES: Normal carotid pulses without bruits. Normal pulses bilaterally at radial, dorsalis pe dis and posterior tibial locations.SKIN: No pallor, no j aundice, no rash, normal turgorLYMPH NODES: None palpable ce rvical, axillary, supraclavicular or inguinal locations -- DATA -- MEDICATIONS SODIUM PHOSPHATE with/in SODIUM CHLO RIDE 0.9% 15 MM IV ASDIR (PRN)DEXTROSE 50%-WATER 50 ML IV ASDIRMAGNESIUM 5 GM IV ASDIR (PRN)INSULIN GLARGI NE 24 UNITS SUBQ QAMACETAMINOPHEN 650 MG PO Q6H PRNMUPIROCIN 1 APPLIC NASAL BIDVANCOMYCIN PHARMACY TO DOSE 1 EACH IV ASDIRGLUCAGON 1 MG IM ASDIRHEPARIN SODIUM,PORCIN E 5000 UNIT SUBQ [id number] CHLORIDE 0.9% 1000 ML IV ASDIRI NSULIN REGULAR, HUMAN with/in SODIUM CHLORIDE 100 mL BA G 100 UNIT IV ASDIRSOD BIPHOS/POT PHOSPHATE 1 PKT PO ASDIR (PRN)polyethylene glycoL 3350 1 PKT PO DAILY PRN INSULIN LISPRO 0 UNITS SUBQ AC HSDEXTROSE 5%-0.45% SALIN E 1000 ML IV ASDIRMAGNESIUM 3 GM IV ASDIR (PRN)MAGNESIUM 2 GM IV ASDIR (PRN)METOPROLOL TARTRATE 12.5 MG PO Q12HRh ydrALAZINE HCL 10 MG IV Q4HR PRNMAGNESIUM 4 GM IV ASDIR (IA N)LABETALOL HCL 10 MG IV Q2H PRNSODIUM PHOSPHATE with/in SOD IUM CHLORIDE 0.9% 20 MM IV ASDIR (PRN)LACTULOSE 30 M L PO BID PRNIPRATROPIUM/ALBUTEROL SULFATE 3 ML NEB RTQ4H PRNVANCOMYCIN HCL with/in SODIUM CHLORIDE 0.9% 7 50 MG IV BID@1100,2300POTASSIUM BICARBONATE/CIT AC 20 MEQ PO ASDIRSODIUM PHOSPHATE with/in SODIUM CHLORIDE 0. 9% 30 MM IV ASDIR (PRN)CEFEPIME HCL with/in SODIUM CHLORIDE 0.9% 1 GM IV [id number] CHLORIDE 20 MEQ IV ASDIRFAMOTID INE 20 MG PO DAILYDEXTROSE 5%-LR 1000 ML IV .[id number] CHLORIDE 0.45% 1000 ML IV ASDIR LABS GLU BED (01/31/22 16 :29)GLUBED 125 H GLU BED (01/31/22 16:06)GLUBED 38 *L GLU B ED (01/31/22 11:36)GLUBED 156 H GLU BED (01/31/22 10:56)GLUBED 65 L BASIC METABOLIC PANEL ( 2 10:40)SODIUM 143POTASSIUM 3.9CHLORIDE 109H HCAR BON DIOXIDE 29ANION GAP 8.9GLUCOSE 71BLOOD UREA NITROGEN 17G LOMERULAR FILTRATION RATE 41 L CREATININE 1.6H HBUN/CREATI NINE RATIO 10.6 LCALCIUM 8.5 PHOS (01/31/22 10:40)PHOSPHORO US 2.9 MAG (01/31/22 10:40)MAGNESIUM 2.0 GLU BED (01/31/22 07:36)GLUBED 168 H ARTERIAL BLOOD GAS (01/31/22 03:21)ARTERIAL BLOOD GAS PH 7.506 HARTERIAL BLOO D GAS PCO2 34.1 LARTERIAL BLOOD GAS PO2 174.3 HBICARBONATE TOTAL HCO3 26.4 HBASE EXCESS 3.5 HABG O2 SATURATION 98.9 REEVES BG TYPE ArterialARTERIAL FIO2 40.0PaO2/FiO2 435.70ABG VE NT MODE PRVCABG VENT RESP RATE 20ABG TIDAL VOLUME 380ABG PEEP 5.0ABG SITE A-LineALLENS TEST YesTOTAL HGB 11.5 LTCO2 ARTERIAL 27.4 H PHOS (01/31/22 03:00)PHOSPHOROUS 3.4 CBC W/AUTO DIFF (01/31/22 03:00)WHITE BLOOD CELL 12. 6H HRED BLOOD CELL 3.47 LHEMOGLOBIN 10.3L LHEMATOCRIT 30 .1L LMEAN CELL VOLUME 87MEAN CELL HGB 29.7MEAN CELL HGB CO NCENTRATION 34.2RED CELL DISTRIBUTION WIDTH 13.2PLATELET COU NT 205MEAN PLATELET VOLUME 10.5NEUTROPHIL % 85.1 HIMMATURE GRANULOCYTE % 0.6LYMPHOCYTE % 5.8 LMONOCYTE % 8.1EOSINOPHIL % 0.0BASOPHIL % 0.4NUCLEATED RBC % 0.0NEUTROPHIL # 10.75 HIMMATURE GRANULOCYTE # 0.080LYMPHOCYTE # 0.73 L MONOCYTE # 1.03 HEOSINOPHIL # 0.00BASOPHIL # 0.05NUCLEATED RBC # 0.000 PLATELET ESTIMATE ADEQUATEPLATELET MORPHOLOGY N ORMAL PLT MORPH VANCOMYCIN (01/31/22 03:00)VANCOMYCIN 12.8 COMPREHENSIVE METABOLIC PANEL (01/31/22 03:00)SO DIUM 144POTASSIUM 3.3D L D LCHLORIDE 111H HCARBON NOLVIA XIDE 26ANION GAP 10.3GLUCOSE 143H HBLOOD UREA NITROGE N 19GLOMERULAR FILTRATION RATE 48 LCREATININE 1.4BUN/CREATININE RATIO 13.6TOTAL PROTEIN 6.9ALB UMIN 2.5 LCALCIUM 8.1 LBILIRUBIN TOTAL 0.5SGOT/AST 170 D HSGPT/ALT 42 DALKALINE PHOSPHATASE 186 D H DIFFERENTIAL SC AN (01/31/22 03:00)RBC MORPHOLOGY REQUIRED NORMALPL ATELET ESTIMATE ADEQUATEPLATELET MORPHOLOGY NORMAL PLT MORPH MAG (01/31/22 03:00)MAGNESIUM 2.0 LACTIC ACID (01/30 22:30)LACTIC ACID 2.4 H GLU BED (01/30/22 22:15) GLUBED 101 GLU BED (01/30/22 21:09)GLUBED 67 L Signed in [facility]uilarKed[facility] by Britney Winchester DO on 02/01/22 at 08:01 Elect ronically Signed by Britney Winchester, DO on 02/01/22 at 0801ATTENTION EDITS and/or ADDENDA must be ma de in Patient Keeper for this note. Edits and ammen dments created in [facility] are not visible in Patien t Keeper or the legal medical record ([facility]). RPT #: [id number] OF REPORT PRProgress [id number]:[id number] Available for patient [id number]:5 4 2022-01-31 [id number]:00 [facility] 10:35:00 [facility] ([facility])Pharmacy Prog.Note-VancomycinREPORT#:[id number] REPORT STA TUS: SignedDATE:01/31/22 TIME: 1035 PATIENT: Parag HINKLE UNIT #: [id number]#: [id number] R OOM: NC.IT50BDH: ADOB: [birth year] AGE: 71 SEX: F ATTEND : Erasmo Fay [facility] AUTHOR: John Ruiz [facility] * ALL edits or amendments must be made on th e electronic/computer document * Vancomycin Vancom ycin Medication TherapyGoal: trough 15-20 mcg/mLIndic ation for treatment:SEPSISVS and I/O:Vital Signs Date Temp Pulse Resp B/P B/P Mean Pulse Ox FiO2 01/29-01/31 34.8-38. 7 88-139 2-32 92-184/57-115 70-133 61-100 40-50 72 hours ending at 0700 01/280 01/29Intake 3185.50TotalOutput 1450 750TotalBalance 1735.50 -750 Intake, IV 3185.50N umber 1 4BowelMovementsOutput, 1450 750UrinePatient 54. 545 kgWeightWeight EstimatedMeasurementMethod 72 Claudio r I O Total 01/29 Intake Total 3 185.50 Output Total 1450 750 Balance 1735.50 -750 Labs: Laboratory Tests: 01/31 030 Toxicology Random Vancomycin ( 5.0 - 40.0 ug/mL) 12.8 Laboratory Test : 01/29 01/29 01/29 01/29 01/30 1549 2050 2200 2305 0110 Chemistry BUN (4 - 23 m g/dL) 41 H 39 H 40 H 40 H 36 H Creatinine (0.6 - 1.5 mg/dL) 2.4 H 2.5 H 2.3 H 2.3 H 2.2 H Hematology WBC (4.5 - 11.0 1 0 3/uL) 9.1 01/30 01/30 01/30 01/30 01/31 0215 0400 0818 155 5 0300 Chemistry BUN (4 - 23 mg/dL) 35 H 32 H 28 H 25 H 19 Creatinine (0.6 - 1.5 mg/dL) 2.2 H 2.1 H 2.0 H 1 .7 H 1.4 Hematology WBC (4.5 - 11.0 10 3/uL) 12.8 H 12.6 H Microbiology:01/31 820 URINE: Urine Culture - R ES YEAST01/31 820 NASAL: MRSA Screen - RECD1 1 549 BLOOD: Blood Culture - RES01/29 1549 BLOOD: Blood Cult ure - RES01/29 1535 BLOOD: Blood Culture - RES01/29 15 35 BLOOD: Blood Culture - RES Treatment plan: change regimenAdditional Comments:LAST DOSE VANC 1 GM @ 1800 ON 01/30RANDOM VANC ON 01/01@0300 = 12.8 REDOSE 750 Q12H@11,23 NEXT VANC TROUGH 02/01@1000 Electronically Keila d by John Díaz [facility] on 01/31/22 at [facility] RPT #:[id number] OF REPORTPRProgress [id number]:35:[id number] ilable for patient [id number]:37:42 2022-01-31 [id number]:22:00 [facility]00 [facility] ([facility])Intensive Care Progress Note REPOR T #: [id number] REPORT STATUS: Signed DATE: 01/31/22 T EDUARDO: 1022 PATIENT: DANIELE HINKLE UNIT #: [id number] ROOM #: NC.IC09 BED: A : 3 AGE: 71 SEX: F ATTEND: Erasmo Fay MD ADM DT: AUTHOR: Rocky Miller MD ATTENTION EDITS and/or ADDENDA must be made i n Patient Keeper for this note. Edits and ammendments c reated in [facility] are not visible in Patient Keeper or the legal medical record ([facility]). -- ASSESSMENT AND PLAN -- GENERAL ASSESSMENT:[facility] AssessmentAcute respirat ory failure with hypoxiaDKA, with comaAcute metabolic encephalopathyAnion-gap metabolic acidosisAcute renal failureSepsisPseudohyponatremiaconstipationDMHTN Dyslipidemi a Plan:Neurologic: patient emergently intubated in ED, as she desatted to 40s w/ bradycardia worsening men tation.pt intubated/sedated. Likely w/ acute metabolic enc ephalopathy 2/[address] headnegative. Pulmonary: COVID negat ivemental status precludes vent weaning currently -- wean as tolerated.ABG acceptable. P/F ratio 541CXR revie wed, No acute process Cardiovascular: Monitor HR, BP. Re sume home antihypertensives, ASA, Plavix when her mentatio n improves. Hematologic: Monitor H/H, platelets. Transfuse t o keep Hgb > 7.Heparin for DVT prophylaxis Renal: Monitor U OP, BUN, Cr, avoid nephrotoxinsReplace electrolytes as ne eded.In the past, ADOLFO has improved with volume resuscitation . Continue IV fluids asper DKA protocol.(01/29) 2 amps HCO3 for pH 6.9/bicarb 6. 2 more amps HCO3 given for repeat pH6.86/bicarb 4Elevated potassium improving. Gastrointestinal: CT A/P with large stool burden -- f/u official readstart suppository PO bowel regimen -- will likely require enemaInitiate tube feedings Infec tious disease: Trend WBC, fever curve, Follow-up cultu res.Lactic acid elevated. No evidence of pneumonia. UA is p ending. CT A/P pending-- trend lactic acidempiric Vanco and cefepime. Endocrine: pt given an additional 10 units IV in sulin 1L IVF as glucose essentiallyunchanged (900+ on arr ival from ED)insulin drip and aggressive IV fluid hydration.Endocrinology consulted. Dispo: ICUCod e Status: FullVTE ppx: Heparin D/w pt.Discussed with gracia gramajo RN, patient SubjectiveEvents no tedPatient seen and examined Remains intubated, DKA resolvedHypoglycemic, adding D5 LR HPI: Ms. Simone sánchez is a 71-year-old woman with a history of diabetes who presentswith acute encephalopathy. Patient's blo od sugar was reportedly reading as"high" when her checked it today. He called EMS, and the patient wasinitial ly refusing transport to the ED but then acutely became alte red. She wasbrought into the emergency department for jose luation --found to be in DKA withanion gap of 33, glucos e of 976, and pH of 6.96. Her eyes are open, sheresponds a nd appropriately. Cannot hold a conversation. Past medical history: HTN, DM, CAD, retinopathy, diabetic neuropathy,dyslipidemiaPSurgHx: Retinal surgery, hysterectomyFamily history: NoncontributorySocHx : Former smoker Review of systems: Unable to assess due t o encephalopathy Physical ExamGeneral: Elderly Afr ican [place]an female.Eyes: Anicteric sclerae.Mouth: M MMNeck: Supple.CV: tachycardic. Normal S1 and S2.Pulm: m echanically ventilated breaths. no wheezing or Rales appreciated.Abdomen: Soft, no evidence of tender.Extremities: No lower extremity edema.Ski n: Warm, dry.Neuro: limited exam d/t sedationPsych: defer d/t sedation -- OBJECTIVE -- VITALS (01/30 10:22 - 1 10:22):Temperature F: 99.1Temperature C: 37.9 (3 6.8 - 38.7)Temperature source: COREPulse Rate 120 (96 - 135)Respiratory rate: 7 (2 - 23)BP: 110/64 (105/ 57 - 184/115)Blood pressure source: Monitor I/Os ( 07:00 - 01/31 07:00):Net -750Output 750 -- DATA -- MEDIC ATIONS SODIUM PHOSPHATE with/in SODIUM CHLORIDE 0.9% 15 MM IV ASDIR (PRN)DEXTROSE 50%-WATER 50 ML IV ASDIRMAGN ESIUM 5 GM IV ASDIR (PRN)INSULIN GLARGINE 24 UNITS SUBQ QAMACETAMINOPHEN 650 MG PO Q6H PRNMUPIROCIN 1 AP PLIC NASAL BIDVANCOMYCIN PHARMACY TO DOSE 1 EACH IV ASDIRGL UCAGON 1 MG IM ASDIR HEPARIN SODIUM,PORCINE 5000 UNIT SUBQ Q 12HRSODIUM CHLORIDE 0.9% 1000 ML IV ASDIRINSULIN REGULAR, H UMAN with/in SODIUM CHLORIDE 100 mL BAG 100 UNIT IV A SDIRSOD BIPHOS/POT PHOSPHATE 1 PKT PO ASDIR (PRN)polyeth ylene glycoL 3350 1 PKT PO DAILY PRNINSULIN LISPRO 0 U NITS SUBQ AC HSDEXTROSE 5%-0.45% SALINE 1000 ML IV ASDIRMA GNESIUM 3 GM IV ASDIR (PRN)MAGNESIUM 2 GM IV ASDIR (PRN)ME TOPROLOL TARTRATE 12.5 MG PO [id number] HCL 10 MG I V Q4HR PRNMAGNESIUM 4 GM IV ASDIR (PRN)LABETALOL HCL 10 MG IV Q2H PRNSODIUM PHOSPHATE with/in SODIUM CHLORIDE 0.9% 20 MM IV ASDIR (PRN)LACTULOSE 30 ML PO BID PRNIPRATROPIUM /ALBUTEROL SULFATE 3 ML NEB RTQ4H PRNPOTASSIUM BICARBONATE/ CIT AC 20 MEQ PO ASDIRSODIUM PHOSPHATE with/in SODIUM CHLO RIDE 0.9% 30 MM IV ASDIR (PRN)CEFEPIME HCL with/in SODIUM CHLORIDE 0.9% 1 GM IV [id number] CHLORIDE 20 MEQ IV ASDIRFAMOTIDINE 20 MG PO DAILYSODIUM CHLORIDE 0. 45% 1000 ML IV ASDIR LABS GLU BED (01/31/22 07:36)GLUBED 168 H ARTERIAL BLOOD GAS (01/31/22 03:21)ARTERIAL BLOOD GAS PH 7.506 HARTERIAL BLOOD GAS PCO2 34.1 LARTERIAL BLOOD GA S PO2 174.3 HBICARBONATE TOTAL HCO3 26.4 HBASE EXCESS 3.5 REEVES BG O2 SATURATION 98.9 HABG TYPE ArterialARTERIAL FIO2 40.0PaO2/FiO2 435.70ABG VENT MODE PRVCABG VENT RESP RATE 20ABG TIDAL VOLUME 380ABG PEEP 5.0ABG SITE A-Janki eALLENS TEST YesTOTAL HGB 11.5 LTCO2 ARTERIAL 27.4 H JUMANA S (01/31/22 03:00)PHOSPHOROUS 3.4 CBC W/AUTO DIFF (01/31/22 03:00)WHITE BLOOD CELL 12.6H HRED BLOOD CELL 3.47 LHEMOGLOBI N 10.3L LHEMATOCRIT 30.1L LMEAN CELL VOLUME 87MEAN CELL HGB 29.7MEAN CELL HGB CONCENTRATION 34.2RED CELL DIS TRIBUTION WIDTH 13.2PLATELET COUNT 205 MEAN PLATELET VOLUM E 10.5NEUTROPHIL % 85.1 HIMMATURE GRANULOCYTE % 0.6LYMPHOCYTE % 5.8 LMONOCYTE % 8.1EOSINOPHIL % 0.0BASOPHIL % 0.4NUCLEATED RBC % 0.0NEUTROPHIL # 10.75 HIMM ATURE GRANULOCYTE # 0.080LYMPHOCYTE # 0.73 LMONOCYTE # 1.03 HEOSINOPHIL # 0.00BASOPHIL # 0.05NUCLEATED RBC # 0.000PLATELET ESTIMATE ADEQUATEPLATELET MORPHOLO GY NORMAL PLT MORPH VANCOMYCIN (01/31/22 03:00)VANCOMYCIN 12.8 COMPREHENSIVE METABOLIC PANEL (01/31/22 03:00)SO DIUM 144POTASSIUM 3.3D L D LCHLORIDE 111H HCARBON NOLVIA XIDE 26ANION GAP 10.3GLUCOSE 143H HBLOOD UREA NITROGE N 19GLOMERULAR FILTRATION RATE 48 LCREATININE 1.4BUN/CREATININE RATIO 13.6TOTAL PROTEIN 6.9AL BUMIN 2.5 LCALCIUM 8.1 LBILIRUBIN TOTAL 0.5SGOT/AST 170 D HSGPT/ALT 42 DALKALINE PHOSPHATASE 186 D H DIFFERENTIAL SC AN (01/31/22 03:00)RBC MORPHOLOGY REQUIRED NORMALPL ATELET ESTIMATE ADEQUATEPLATELET MORPHOLOGY NORMAL PLT MORPH MAG (01/31/22 03:00)MAGNESIUM 2.0 LACTIC ACID (01/30 22:30)LACTIC ACID 2.4 H GLU BED (01/30/22 22:15) GLUBED 101 GLU BED (01/30/22 21:09)GLUBED 67 L GLU BED (06/22 18:10)GLUBED 83 GLU BED (01/30/22 16:22)GLUBED 118 H MAG (01/30/22 15:55)MAGNESIUM 2.1 BASIC METABOLIC PA NASIMA (01/30/22 15:55)SODIUM 143POTASSIUM 4.5CHLORIDE 109H HCARBON DIOXIDE 27ANION GAP 11.5GLUCOSE 142H HBL OOD UREA NITROGEN 25H HGLOMERULAR FILTRATION RATE 38 LCRE ATININE 1.7H HBUN/CREATININE RATIO 14.7CALCIUM 8.2 L JUMANA S (01/30/22 15:55)PHOSPHOROUS 3.8 GLU BED (01/30/22 15:12)GL UBED 53 L GLU BED (01/30/22 13:58)GLUBED 103 GLU BED ( 06/22 13:00)GLUBED 107 H GLU BED (01/30/22 12:12)GLUBE D 135 H GLU BED (01/30/22 11:18)GLUBED 160 H Signed in PatientKeeper by Rocky Miller MD on 01/31/22 at 16:13 Electronically Signed by Rocky Miller MD on at 1613ATTENTION EDITS and/or ADDENDA must be ma de in Patient Keeper for this note. Edits and ammen dments created in [facility] are not visible in Patien t Keeper or the legal medical record (HPF). [facility] #: [id number] OF REPORT PRProgress [id number] Available for patient [id number] 8 2022-01-31 [id number]:00 [facility] 07:02[facility]00 [facility] ([facility])Endocrinology Progress Note REPORT #: [id number] REPORT STATUS: Signed DATE: 01/31/22 T EDUARDO: 0702 PATIENT: DANIELE HINKLE UNIT #: [id number] ROOM #: TN.IC09 BED: A : 3 AGE: 71 SEX: F ATTEND: Erasmo Fay MD ADM DT: AUTHOR: Nini Doan MD ATTENTION EDITS and/or ADDENDA must be made i n Patient Keeper for this note. Edits and ammendments c reated in [facility] are not visible in Patient Keeper or the legal medical record (HPF). -- ASSESSMENT AND PLAN -- PROBLEMS : 1: Type 1 diabetes mellitus with ketoacidosis without coma A/P: UNCONTROLLED (HGBA1C=>14%,HYPERGLYCEMIA) TYPE I DM IN DKA. DKA RESOLVED:FISZMVO=750 AG=10.3. OBSERVE ON SQ BASAL/BOLUS INSULIN. -- SUBJECTIVE -- CHIEF COMPLAINT:HYPERG LYCEMIA HPI: IN ICU. ON MECH VENT. OFF INSULIN DRIP. -RE VIEW OF SYSTEMS- GENERAL: UNABLE TO OBTAIN: SEDATED: INT UBATED ON A MECH VENT -- OBJECTIVE -- VITALS (01/30 07:02 - 01/31 07:02):Temperature F: 99.1 (98.9 - 99.1)Tempera ture C: 37.7 (36.8 - 38.7)Temperature source: COREPulse Rate 118 (96 - 135)Respiratory rate: 12 (2 - 23)BP: 119/7 6 (111/57 - 184/115)Blood pressure source: Monitor I/Os ( 07:00 - 01/31 07:00):Net -750Output 750 -EXAM- GENERAL: Well developed, well nourished, THIN, ON [facility] AD: Normocephalic, atraumatic.NECK: trachea midline. CHEST: Grossly normal appearance.LUNGS: NORMAL CHEST WA LL MOVEMENTHEART: TACHYCARDIAABDOMEN: NON-DISTENDED NEUROLOGICAL: SEDATED, INTUBATEDPSYCHIATRIC: SED ATED, INTUBATED -- DATA -- MEDICATIONS SODIUM PHOSPHAT E with/in SODIUM CHLORIDE 0.9% 15 MM IV ASDIR (PRN)DEXTROS E 50%-WATER 50 ML IV ASDIRMAGNESIUM 5 GM IV ASDIR (PRN)INSUL IN GLARGINE 24 UNITS SUBQ QAMACETAMINOPHEN 650 MG PO Q6H PRN MUPIROCIN 1 APPLIC NASAL BIDVANCOMYCIN PHARMACY TO DOSE 1 EA CH IV ASDIRGLUCAGON 1 MG IM ASDIRHEPARIN SODIUM,PORCIN E 5000 UNIT SUBQ [id number] CHLORIDE 0.9% 1000 ML IV ASDIRI NSULIN REGULAR, HUMAN with/in SODIUM CHLORIDE 100 mL BA G 100 UNIT IV ASDIRSOD BIPHOS/POT PHOSPHATE 1 PKT PO ASDIR (PRN)polyethylene glycoL 3350 1 PKT PO DAILY PRN INSULIN LISPRO 0 UNITS SUBQ AC HSDEXTROSE 5%-0.45% SALIN E 1000 ML IV ASDIRMAGNESIUM 3 GM IV ASDIR (PRN)MAGNESIUM 2 GM IV ASDIR (PRN)METOPROLOL TARTRATE 12.5 MG PO Q12HRh ydrALAZINE HCL 10 MG IV Q4HR PRNMAGNESIUM 4 GM IV ASDIR (IA N)LABETALOL HCL 10 MG IV Q2H PRNSODIUM PHOSPHATE with/in SOD IUM CHLORIDE 0.9% 20 MM IV ASDIR (PRN)LACTULOSE 30 M L PO BID PRNIPRATROPIUM/ALBUTEROL SULFATE 3 ML NEB RTQ4H PRNPOTASSIUM BICARBONATE/CIT AC 20 MEQ PO ASDIRS ODIUM PHOSPHATE with/in SODIUM CHLORIDE 0.9% 30 MM IV ASDIR (PRN)CEFEPIME HCL with/in SODIUM CHLORIDE 0.9% 1 GM IV [id number] CHLORIDE 20 MEQ IV ASDIRSODIUM CHL ORIDE 0.45% 1000 ML IV ASDIR LABS ARTERIAL BLOOD GAS ( 03:21)ARTERIAL BLOOD GAS PH 7.506 HARTERIAL BLOO D GAS PCO2 34.1 LARTERIAL BLOOD GAS PO2 174.3 HBICARBONATE TOTAL HCO3 26.4 HBASE EXCESS 3.5 HABG O2 SATURATION 98.9 REEVES BG TYPE ArterialARTERIAL FIO2 40.0PaO2/FiO2 435.70ABG VE NT MODE PRVCABG VENT RESP RATE 20ABG TIDAL VOLUME 380ABG PEEP 5.0ABG SITE A-LineALLENS TEST YesTOTAL HGB 11.5 LTCO2 ARTERIAL 27.4 H DIFFERENTIAL SCAN (01/31/22 03:0 0)RBC MORPHOLOGY REQUIRED NORMAL PLATELET ESTIMATE ADEQUATEPLATELET MORPHOLOGY NORMAL PLT MORPH JUMANA S (01/31/22 03:00)PHOSPHOROUS 3.4 CBC W/AUTO DIFF (01/31/22 03:00)WHITE BLOOD CELL 12.6H HRED BLOOD CELL 3.47 LHEMOGLOBI N 10.3L LHEMATOCRIT 30.1L LMEAN CELL VOLUME 87MEAN CELL HGB 29.7MEAN CELL HGB CONCENTRATION 34.2RED CELL DIS TRIBUTION WIDTH 13.2PLATELET COUNT 205MEAN PLATELET VOLUME 10.5NEUTROPHIL % 85.1 HIMMATURE GRANULOCYTE % 0. 6LYMPHOCYTE % 5.8 LMONOCYTE % 8.1EOSINOPHIL % 0.0BASOPHIL % 0.4NUCLEATED RBC % 0.0NEUTROPHIL # 10.75 HIMMATU RE GRANULOCYTE # 0.080LYMPHOCYTE # 0.73 LMONOCYTE # 1.03 HEOSINOPHIL # 0.00BASOPHIL # 0.05NUCLEATED RBC # 0.000PLATELET ESTIMATE ADEQUATEPLATELET MORPHOLO GY NORMAL PLT MORPH VANCOMYCIN (01/31/22 03:00)VANCOMYCIN 12.8 COMPREHENSIVE METABOLIC PANEL (01/31/22 03:00)SO DIUM 144POTASSIUM 3.3D L D LCHLORIDE 111H HCARBON NOLVIA XIDE 26ANION GAP 10.3GLUCOSE 143H HBLOOD UREA NITROG EN 19GLOMERULAR FILTRATION RATE 48 LCREATININE 1.4BUN/CREATININE RATIO 13.6TOTAL PROTEIN 6.9ALB UMIN 2.5 LCALCIUM 8.1 LBILIRUBIN TOTAL 0.5SGOT/AST 170 D HSGPT/ALT 42 DALKALINE PHOSPHATASE 186 D H MAG (01/31/22 03:00)MAGNESIUM 2.0 LACTIC ACID (01/30/22 22:30) LACTIC ACID 2.4 H GLU BED (01/30/22 22:15)GLUBED 101 GL U BED (01/30/22 21:09)GLUBED 67 L GLU BED (01/30/22 18 :10)GLUBED 83 GLU BED (01/30/22 16:22)GLUBED 118 H MAG (06/22 15:55)MAGNESIUM 2.1 BASIC METABOLIC PANEL (01/30 15:55)SODIUM 143POTASSIUM 4.5CHLORIDE 109H HCARB ON DIOXIDE 27ANION GAP 11.5GLUCOSE 142H HBLOOD UREA NITROGE N 25H HGLOMERULAR FILTRATION RATE 38 LCREATININE 1.7H HBUN/CREATININE RATIO 14.7CALCIUM 8.2 L PHOS ( 15:55)PHOSPHOROUS 3.8 GLU BED (01/30/22 15:12)GL UBED 53 L GLU BED (01/30/22 13:58)GLUBED 103 GLU BED ( 06/22 13:00)GLUBED 107 H GLU BED (01/30/22 12:12)GLUBE D 135 H GLU BED (01/30/22 11:18)GLUBED 160 H GLU BED ( 10:17)GLUBED 186 H GLU BED (01/30/22 09:09)GLUBE D 209 H UA RFLX MICR amp;CULT IF INDICATED (01/30/22 08:20) UA COLOR YELLOWUA APPEARANCE CLOUDY NATHALIE GLUCOSE DIPSTICK 1+ NATHALIE BILIRUBIN DIPSTICK 1+ NATHALIE KETONE DIPSTICK 2+ H U A SPECIFIC GRAVITY 1.025UA BLOOD DIPSTICK 3+ NATHALIE PH DIPSTIC K 6.0UA PROTEIN DIPSTICK 1+ NATHALIE UROBILINOGEN DIPSTICK 0. 2UA NITRITE DIPSTICK NEGATIVEUA LEUKOCYTE ESTERASE DIPSTICK 2+ NATHALIE MICROSCOPIC NEEDED? YES NATHALIE WBC TOO NUMEROUS TO CNT NATHALIE RBC TOO NUMEROUS TO CNT NATHALIE BACTERIA FEWUA SQUAMOUS CELLS None seenUA HYALINE CAST 0-1 BASIC METABOLIC PANEL (1 08:18)SODIUM 144POTASSIUM 3.6CHLORIDE 110H HCAR BON DIOXIDE 24ANION GAP 13.6GLUCOSE 220H HBLOOD UREA NITROGE N 28H HGLOMERULAR FILTRATION RATE 32 LCREATININE 2.0H HBUN/CREATININE RATIO 14.0CALCIUM 8.1 L MAG (06/22 08:18)MAGNESIUM 1.6 L PHOS (01/30/22 08:18)PHOSP HOROUS 1.0 L GLU BED (01/30/22 07:45)GLUBED 258 H -- ATTEST ATION -- TIME SPENT ON PATIENT CARE: - Direct 35 minutes CARE ACTIVITIES / CARE COORDINATION: - I have reviewe d the history and repeated the ingram elements - I have s een and examined this patient - I have reviewed the prog ress in the clinical course since the lastexamination - I reeves ve discussed the patient's condition with other mem bers of the care team ADDITIONAL DETAIL:I HAVE SPENT >35 MIN UTES IN THE EVALUATION AND TREATMENT OF THIS PATIENT. Signed in PatientKeeper by Nini Doan MD on 07/20 at 07:06 at 0706ATTENTION EDITS and/or ADDENDA must be ma de in Patient Keeper for this note. Edits and ammen dments created in [facility] are not visible in Patien t Keeper or the legal medical record (HPF). [facility] #: [id number] OF REPORT PRProgress [id number] Available for patient [id number]:07:5 0 2022-01-30 [id number]:00 [facility] 15:00:00 [place] ([facility])Family Med. History PhysicalREPORT #: [id number] REPORT STATUS: Signed DATE: 01/30/22 T EDUARDO: 1500 PATIENT: DANIELE HINKLE UNIT #: [id number] ROOM #: NC.IC09 BED: A : 3 AGE: 71 SEX: F ATTEND: Erasmo Fay MD [facility] DT: AUTHOR: Erasmo Fay MD ATTENTION EDITS and/or ADDENDA must be made i n Patient Keeper for this note. Edits and ammendments c reated in [facility] are not visible in Patient Keeper or the legal medical record (HPF). -- HISTORY -- ADMISSION DATE:01-29 PRIMARY CARE PROVIDER:ERASMO FAY MD IEF COMPLAINT:DKA HPI:patient with hx of DM, and poo r complaince due to various social issues,blindnes s, and some cognitive decline, presents again with high gluc osereadings in DKArequired intubation last nightsedation has been stopped but she remains unresponsive PAST MEDICA L HISTORY:DM type 1, HTN, CAD, myocardial infarcti on , neuropathy, retinopathy,hyperlipidemia, PAST JIMENEZ GICAL HISTORY:hysterectomy, retinal surgery bilaterall y, -SOCIAL HISTORY- -TOBACCO USE- DETAILS/COMMENTS:former -VAPING/INHALED SOLVENTS- DETAILS/COMMENTS:none -ALCOHOL USE- DETAILS/COMMENTS:none -DRUG USE- DETAILS/CO MMENTS:none -- ALLERGIES/HOME MEDS -- ALLERGIES:codeine (Int ermediate - Allergy)lisinopril (Intermediate - Allergy) HOME MEDICATIONS:Aspirin Chewable Tab (Aspirin Chewab le Tab) 81 MG PO BEDTIMEAspirin EC Tab (Ecotrin Tab) 81 MG PO DAILYClopidogrel Tab (Plavix Tab) 75 MG PO DAILY Donepezil Tab (Aricept Tab) 5 MG PO BEDTIMEEzetimibe Tab ( Zetia Tab) 10 MG PO DAILYInsulin Lispro InJ (HumaLOG Inj) 0 UNITS SUBQ AC HSIsosorbide Dinitrate Tab (Isordil Tab) 5 MG PO BID 9A 5PMetoprolol Succinate XL Tab (Toprol XL Tab) 25 MG PO DAILYMetoprolol Tartrate Tab (Lopressor Tab) 12. 5 MG PO [id number] Tab 5 mg(ProAmatine Tab 5mg) 5 MG PO TIDRanolazine ER Tab (Ranexa Tab) 1000 MG PO Q12 HRVitamin D3 Tab (Cholecalciferol Tab) 8000 UNIT PO QPM -- SUBJECTIVE -- -REVIEW OF SYSTEMS- GENERAL: unable to obtain -- OBJECTIVE -- VITALS (01/29 23:10 - 01/30 23:10): Temperature F: 99.1 (94.7 - 99.1)Temperature C: 38.1 (37.1 - 38.7)Temperature source: COREPulse Rate 111 (96 - 126)Respiratory rate: 20 (2 - 23)BP: 122/71 (116 /57 - 184/105)Blood pressure source: Monitor I/Os ( 07:00 - 01/30 07:00):Net 1,735.50Intake 3,185.50Output 1,450 -EXAM- GENERAL: unresponsive and intubateedHEAD: Normocephalic, atraumatic.EARS: External ears w ithout deformity, erythema or edemaNOSE: No deformity, no discharge, no inflammation, no lesions.MOUTH: or opharynx moist and pink.NECK: No masses, no thyromegaly, no abnormal cervical nodes, trachea midline.CHEST: Grossly n ormal appearance.LUNGS: Respirations unlabored, clear to auscultation bilaterally, no wheezing, no ronchi , no rales HEART: Regular rate and rhythm, normal S1, S2, n o murmurs, no rubs, no gallops, no clicks.ABDOMEN: + BS so ft, flat, nontender, the liver and spleen are not palpable , no palpable masses, no herniasMUSCULOSKELETAL: No o bvious deformitiesEXTREMITIES: No clubbing, cyanosis or edemaNEUROLOGICAL: unresponsive with some non pu rposeful movements of all extremetiesPULSES: Normal ruth tid pulses without bruits. Normal pulses bilaterally at rad ial, dorsalis pedis and posterior tibial locations.SK IN: No pallor, no jaundice, no rash, normal turgorLYMPH NODES: None palpable cervical, axillary, supraclavicula r or inguinal locations -- DATA -- LABS GLU BED ( 06/22 22:15)GLUBED 101 GLU BED (01/30/22 21:09)GLUBED 67 L GLU BED (01/30/22 18:10)GLUBED 83 GLU BED (01/30/22 16:22)GLUBED 118 H MAG (01/30/22 15:55)MAGNESIU M 2.1 BASIC METABOLIC PANEL (01/30/22 15:55)SODIUM 143POTASS IUM 4.5CHLORIDE 109H HCARBON DIOXIDE 27ANION GAP 11 .5GLUCOSE 142H HBLOOD UREA NITROGEN 25H HGLOMERULAR FILTRA TION RATE 38 LCREATININE 1.7H HBUN/CREATININE RATIO 14.7CA LCIUM 8.2 L PHOS (01/30/22 15:55)PHOSPHOROUS 3.8 GLU BED ( 15:12)GLUBED 53 L GLU BED (01/30/22 13:58)GLUBED 103 GLU BED (01/30/22 13:00)GLUBED 107 H GLU BED ( 12:12) GLUBED 135 H GLU BED (01/30/22 11:18)GLUBED 160 H GLU BED (01/30/22 10:17)GLUBED 186 H GLU BED (01/30/22 0 9:09)GLUBED 209 H UA RFLX MICR amp;CULT IF INDICATED (01/30 08:20)UA COLOR YELLOWUA APPEARANCE CLOUDY NATHALIE GL UCOSE DIPSTICK 1+ NATHALIE BILIRUBIN DIPSTICK 1+ NATHALIE KETONE DIPSTICK 2+ NATHALIE SPECIFIC GRAVITY 1.025UA BLOOD DIPSTICK 3 + NATHALIE PH DIPSTICK 6.0UA PROTEIN DIPSTICK 1+ NATHALIE UROBILIN OGEN DIPSTICK 0.2UA NITRITE DIPSTICK NEGATIVEUA LEUKO CYTE ESTERASE DIPSTICK 2+ NATHALIE MICROSCOPIC NEEDED? YES NATHALIE WBC TOO NUMEROUS TO CNT NATHALIE RBC TOO NUMEROUS TO CNT NATHALIE BACTERIA FEWUA SQUAMOUS CELLS None seenUA HYALIN E CAST 0-1 BASIC METABOLIC PANEL (01/30/22 08:18)SODIUM 144 POTASSIUM 3.6CHLORIDE 110H HCARBON DIOXIDE 24ANION GAP 13. 6GLUCOSE 220H HBLOOD UREA NITROGEN 28H HGLOMERULAR FILTRA TION RATE 32 LCREATININE 2.0H HBUN/CREATININE RATIO 14.0CA LCIUM 8.1 L MAG (01/30/22 08:18)MAGNESIUM 1.6 L PHOS ( 06/22 08:18)PHOSPHOROUS 1.0 L GLU BED (01/30/22 07:45) GLUBED 258 H GLU BED (01/30/22 06:05)GLUBED 313 H K ( 06:00)POTASSIUM 3.6 GLU BED (01/30/22 05:59) GLU BED 326 H GLU BED (01/30/22 04:50)GLUBED 375 H COMPREHENSI VE METABOLIC PANEL (01/30/22 04:00)SODIUM 143POTASS IUM 3.6CHLORIDE 108H HCARBON DIOXIDE 21ANION GAP 17. 6 HGLUCOSE 412*H *HBLOOD UREA NITROGEN 32H HGLOMERULAR FILT RATION RATE 30 LCREATININE 2.1H HBUN/CREATININE RATIO 15.2T OTAL PROTEIN 6.0 LALBUMIN 2.6 LCALCIUM 8.1 LBILIRUBIN TOTAL 0.4SGOT/AST 111 D HSGPT/ALT 26ALKALINE PHOSPHATA SE 96 PHOS (01/30/22 04:00)PHOSPHOROUS 1.3 L MAG (01/30/22 04:00)MAGNESIUM 1.8 OSMO (01/30/22 04:00)OSMOLAL ITY SERUM 344 H LACTIC ACID (01/30/22 04:00)LACTIC ACID 3. 5 H CBC W/AUTO DIFF (01/30/22 04:00)WHITE BLOOD CELL 12. 8H HRED BLOOD CELL 2.92 LHEMOGLOBIN 8.7D L D LHEMATOCRIT 26.1L LMEAN CELL VOLUME 89 DMEAN CELL HGB 29.8MEAN DILIA L HGB CONCENTRATION 33.3RED CELL DISTRIBUTION WIDTH 13 .3PLATELET COUNT 237MEAN PLATELET VOLUME 10.6NEUTROPHIL % 75.0IMMATURE GRANULOCYTE % 4.6 HLYMPHOCYTE % 8.2 LMONOCYTE % 11.7EOSINOPHIL % 0.0BASOPHIL % 0.5NUCLEATED RB C % 0.0NEUTROPHIL # 9.61 HIMMATURE GRANULOCYTE # 0.5 90 HLYMPHOCYTE # 1.05 LMONOCYTE # 1.50 HEOSINOPHIL # 0.00BASOPHIL # 0.06 NUCLEATED RBC # 0.000 GLU BE D (01/30/22 03:56)GLUBED 412 *H ARTERIAL BLOOD GAS (01/30/22 03:15)ARTERIAL BLOOD GAS PH 7.512 HARTERIAL BLOO D GAS PCO2 25.7 LARTERIAL BLOOD GAS PO2 216.6 HBICARBONATE TOTAL HCO3 20.1 LBASE EXCESS -1.9 LABG O2 SATURATION 99.1 HABG TYPE ArterialARTERIAL FIO2 40.0PaO2/FiO2 541.50ABG VE NT MODE VentilatorABG VENT RESP RATE 25ABG TIDAL VOLUME 380ABG PEEP 5.0ABG SITE Right RadialALLENS TEST YesTOTA L HGB 9.9 LTCO2 ARTERIAL 20.9 GLU BED (01/30/22 02:55)GLUB ED 463 *H BASIC METABOLIC PANEL (01/30/22 02:15)SODIUM 143 POTASSIUM 3.6CHLORIDE 107CARBON DIOXIDE 19L LANION GAP 20. 6 HGLUCOSE 529*H *HBLOOD UREA NITROGEN 35H HGLOMERULAR FILT RATION RATE 29 LCREATININE 2.2H HBUN/CREATININE RATIO 15.9CA LCIUM 8.2 L GLU BED (01/30/22 02:09)GLUBED 493 *H GLU BED (1 01:13)GLUBED 572 *H PHOS (01/30/22 01:10)PHOSPHO JODIE 1.6 L BASIC METABOLIC PANEL (01/30/22 01:10)SODIUM 14 2POTASSIUM 3.5CHLORIDE 106CARBON DIOXIDE 17L LANION GAP 22. 5 HGLUCOSE 634*H *HBLOOD UREA NITROGEN 36H HGLOMERULAR FILT RATION RATE 29 LCREATININE 2.2H HBUN/CREATININE RATIO 16.4 C ALCIUM 8.5 MAG (01/30/22 01:10)MAGNESIUM 2.0 GLU BED (01/30 00:01)GLUBED > 600 *H K (01/30/22 00:00)POTASSIU M 3.6 GLU BED (01/29/22 23:13)GLUBED > 600 *H -- ASSESSME NT AND PLAN -- PROBLEMS: 1: Respiratory failure with hypoxia A/P: intubated and mech ventilated. sedation has been stopped, stilunresponsive 2: Type 1 diabetes mellitus wit h ketoacidosis, uncontrolledA/P: likely due to mis sing medications endocrine consulted glucose levels h ave been corrected, anion gap resolved, insulin drip stop epd 3: Type 1 diabetes mellitus with diabetic chronic k idney disease 4: Type 1 diabetes mellitus with diabeti c polyneuropathy 5: Diabetic visual loss: better e ye: profound vision impairment; lesser eye:near-tota l vision impairment, with macular edema, with retinopathy , associatedwith type 1 diabetes mellitus 6: Mixed hyperlipidemia 7: Hypertension 8: CAD (coronary artery disease) 9: Peripheral arterial disease 10: Loom Tuner neeta kidney disease, stage 3aA/P: due to DM 11: UTI (urinary tract infection)A/P: abx 12: Overactive bladderA/P: Si gned in PatientKeeper by ERASMO FAY MD on 06/22 at 23:20 at 2320ATTENTION EDITS and/or ADDENDA must be ma de in Patient Keeper for this note. Edits and ammen dments created in [facility] are not visible in Patien t Keeper or the legal medical record (HPF). RPT #: [id number] OF REPORT HPHistory and physical [id number]:00:[id number] lable for patient [id number] 3:21:43 2022-01-30 [id number]:00 [facility] 09:43:00 [place] [facility]Endocrinology Consultation REPORT #: [id number] REPORT STATUS: Signed DATE: 01/30/22 T EDUARDO: 0943 PATIENT: DANIELE HINKLE UNIT #: [id number] ROOM #: NC.IC09 BED: A : 3 AGE: 71 SEX: F ATTEND: Erasmo Fay MD ADM DT: AUTHOR: Nini Doan MD ATTENTION EDITS and/or ADDENDA must be made i n Patient Keeper for this note. Edits and ammendments c reated in [employer] are not visible in Patient Keeper or the legal medical record (HPF). -- ASSESSMENT AND PLAN -- PROBLEMS : 1: Type 1 diabetes mellitus with ketoacidosis without coma A/P: UNCONTROLLED (HYPERGLYCEMIA) TYPE I DM IN DKA. O BSERVE ON ICU DKA, INSULINDRIP PROTOCOL THEN WHEN AG CLOSE S TRANSITION TO SQ BASAL/BOLUS INSULIN.DISCUSSED W ITH ICU NURSE. -- HISTORY -- CONSULT REQUESTED BY:JUAN MIR, ERASMO Rodriguez MD REASON FOR CONSULT:DKA,HYPERGLYCEMI A CHIEF COMPLAINT:HYPERGLYCEMIA HPI:PATIENT ADMITTED TO ICU IN DKA. SHE IS ON A [facility] VENTILATOR. ICU DKA, INSULINDRI P PROTOCOL INITIATED. DISCUSSED WITH ICU NURSE AND FAMILY A T BEDSIDE. PAST MEDICAL HISTORY:DM type 1, HTN, CAD, myocar dial infarction , neuropathy, retinopathy,hyperlipide harmeet, PAST SURGICAL HISTORY:hysterectomy, retinal surgery b ilaterally, -SOCIAL HISTORY- -TOBACCO USE- DETAILS/COMMENTS: former -VAPING/INHALED SOLVENTS- DETAILS/COMMENTS:none -ALCOHOL USE- DETAILS/COMMENTS:none -DRUG USE- DETAILS/CO MMENTS:none -- ALLERGIES/HOME MEDS -- ALLERGIES:codeine (Int ermediate - Allergy)lisinopril (Intermediate - Allergy) HOME MEDICATIONS:Aspirin Chewable Tab (Aspirin Chewab le Tab) 81 MG PO BEDTIMEAspirin EC Tab (Ecotrin Tab) 81 MG PO DAILYClopidogrel Tab (Plavix Tab) 75 MG PO DAILY Donepezil Tab (Aricept Tab) 5 MG PO BEDTIMEEzetimibe Tab ( Zetia Tab) 10 MG PO DAILYInsulin Lispro InJ (HumaLOG Inj) 0 UNITS SUBQ AC HSIsosorbide Dinitrate Tab (Isordil Tab) 5 MG PO BID 9A 5PMetoprolol Succinate XL Tab (Toprol XL Tab) 25 MG PO DAILYMetoprolol Tartrate Tab (Lopressor Tab) 12. 5 MG PO Q13VQOvcuzqdwy Tab 5 mg(ProAmatine Tab 5mg) 5 MG PO TIDRanolazine ER Tab (Ranexa Tab) 1000 MG PO Q12 HRVitamin D3 Tab (Cholecalciferol Tab) 8000 UNIT PO QPM -- SUBJECTIVE -- UNABLE TO OBTAIN REVIEW OF SYSTEMS SEDATED, I NTUBATED ON A [facility] VENT. -- OBJECTIVE -- VITALS (01/29 09:44 - 01/30 09:44):Temperature F: 99.0 (94.7 - 99.0)Temperat ure C: 37.3 (37.1 - 37.3)Temperature source: COREPulse Rate 101 (88 - 139)Respiratory rate: 13 (10 - 32)BP: 168/80 (92 /58 - 173/97)Blood pressure source: Monitor I/Os ( 07:00 - 01/30 07:00):Net 1,735.50Intake 3,185.50Output 1,450 -EXAM- GENERAL: Well developed, well nourished, THIN, ON [facility] VENTHEAD: Normocephalic, atraumatic.NECK: t rachea midline.CHEST: Grossly normal appearance.LUNGS: NORMAL CHEST WALL MOVEMENTHEART: TACHYCARDIA ABDOMEN: NON-DISTENDEDNEUROLOGICAL: SEDATED, INTUBATEDPSY CHIATRIC: SEDATED, INTUBATED -- DATA -- MEDICATIONS SODIUM PHOSPHATE with/in SODIUM CHLORIDE 0.9% 15 MM IV ASDIR (PRN )MAGNESIUM 5 GM IV ASDIR (PRN)VANCOMYCIN PHARMACY TO DOSE 1 EACH IV ASDIRGLUCAGON 1 MG IM ASDIRHEPARIN SODIUM,PORCIN E 5000 UNIT SUBQ [id number] CHLORIDE 0.9% 1000 ML IV ASDIRL ACTULOSE 30 ML PO BIDpolyethylene glycoL 3350 1 PKT PO DAILY PRNDEXTROSE 5%-0.45% SALINE 1000 ML IV ASDIRMAGN ESIUM 3 GM IV ASDIR (PRN)MAGNESIUM 2 GM IV ASDIR (PRN)MAGNE SIUM 4 GM IV ASDIR (PRN)IPRATROPIUM/ALBUTEROL SULFATE 3 ML NEB RTQ4H PRNPOTASSIUM CHLORIDE 20 MEQ IV ASDIRSODIUM CHLO RIDE 0.45% 1000 ML IV ASDIRDEXTROSE 50%-WATER 50 ML IV ASDI RINSULIN GLARGINE 24 UNITS SUBQ QAMMUPIROCIN 1 APPLIC RACHEL AL BIDFENTANYL CITRATE-0.9 % NACL/PF 2500 MCG IV DIRINSULIN REGULAR, HUMAN with/in SODIUM CHLORIDE 100 mL BA G 100 UNIT IV ASDIRSOD BIPHOS/POT PHOSPHATE 1 PKT PO ASDIR (PRN)INSULIN LISPRO 0 UNITS SUBQ AC HSSODIUM JUMANA SPHATE with/in SODIUM CHLORIDE 0.9% 20 MM IV ASDIR (PRN )POTASSIUM BICARBONATE/CIT AC 20 MEQ PO ASDIRSODIUM PHOSPHA TE with/in SODIUM CHLORIDE 0.9% 30 MM IV ASDIR (PRN)CEFEPIM E HCL with/in SODIUM CHLORIDE 0.9% 1 GM IV Q12H LABS G WILMAN BED (01/30/22 09:09)GLUBED 209 H BASIC METABOLIC CAMACHO EL (01/30/22 08:18)SODIUM 144POTASSIUM 3.6CHLORIDE 110H HCARBON DIOXIDE 24ANION GAP 13.6GLUCOSE 220H HBL OOD UREA NITROGEN 28H HGLOMERULAR FILTRATION RATE 32 LCRE ATININE 2.0H HBUN/CREATININE RATIO 14.0CALCIUM 8.1 L MAG (01/30/22 08:18)MAGNESIUM 1.6 L PHOS (01/30/22 08:18)PHOSP HOROUS 1.0 L GLU BED (01/30/22 07:45) GLUBED 258 H GLU BED (01/30/22 06:05)GLUBED 313 H K (01/30/22 06:00)POTASSIUM 3 .6 GLU BED (01/30/22 05:59)GLUBED 326 H GLU BED (01/30/22 0 4:50)GLUBED 375 H COMPREHENSIVE METABOLIC PANEL (01/30/22 04 :00)SODIUM 143POTASSIUM 3.6CHLORIDE 108H HCARBON DIOXIDE 21 ANION GAP 17.6 HGLUCOSE 412*H *HBLOOD UREA NITROGEN 32H HG LOMERULAR FILTRATION RATE 30 LCREATININE 2.1H HBUN/CREATIN INE RATIO 15.2TOTAL PROTEIN 6.0 LALBUMIN 2.6 LCALCIUM 8.1 LBILIRUBIN TOTAL 0.4SGOT/AST 111 D HSGPT/ALT 26ALKALINE JUMANA SPHATASE 96 PHOS (01/30/22 04:00)PHOSPHOROUS 1.3 L MAG ( 06/22 04:00)MAGNESIUM 1.8 OSMO (01/30/22 04:00)OSMOLAL ITY SERUM 344 H LACTIC ACID (01/30/22 04:00)LACTIC ACID 3. 5 H CBC W/AUTO DIFF (01/30/22 04:00)WHITE BLOOD CELL 12. 8H HRED BLOOD CELL 2.92 LHEMOGLOBIN 8.7D L D LHEMATOCRIT 26.1L LMEAN CELL VOLUME 89 DMEAN CELL HGB 29.8MEAN DILIA L HGB CONCENTRATION 33.3RED CELL DISTRIBUTION WIDTH 13 .3PLATELET COUNT 237MEAN PLATELET VOLUME 10.6NEUTROPHIL % 75.0IMMATURE GRANULOCYTE % 4.6 HLYMPHOCYTE % 8.2 LMONOCYTE % 11.7 EOSINOPHIL % 0.0BASOPHIL % 0.5NUCLEATED R BC % 0.0NEUTROPHIL # 9.61 HIMMATURE GRANULOCYTE # 0.5 90 HLYMPHOCYTE # 1.05 LMONOCYTE # 1.50 HEOSINOPHIL # 0.00BASOPHIL # 0.06NUCLEATED RBC # 0.000 GLU BED (01/30/22 03:56)GLUBED 412 *H ARTERIAL BLOOD GAS (01/30/22 03:15)ARTERIAL BLOOD GAS PH 7.512 HARTERIAL BLOO D GAS PCO2 25.7 LARTERIAL BLOOD GAS PO2 216.6 HBICARBONATE TOTAL HCO3 20.1 LBASE EXCESS -1.9 LABG O2 SATURATION 99.1 H ABG TYPE ArterialARTERIAL FIO2 40.0PaO2/FiO2 541.50ABG V ENT MODE VentilatorABG VENT RESP RATE 25ABG TIDAL VOLUME 380ABG PEEP 5.0ABG SITE Right RadialALLENS TEST YesTOTAL HGB 9.9 LTCO2 ARTERIAL 20.9 GLU BED (01/30/22 02:55)GLUBED 463 *H BASIC METABOLIC PANEL (01/30/22 02:15)SODIUM 143POTASS IUM 3.6CHLORIDE 107CARBON DIOXIDE 19L LANION GAP 20. 6 HGLUCOSE 529*H *HBLOOD UREA NITROGEN 35H HGLOMERULAR FILT RATION RATE 29 LCREATININE 2.2H HBUN/CREATININE RATIO 15.9CA LCIUM 8.2 L GLU BED (01/30/22 02:09)GLUBED 493 *H GLU BED (01/30/22 01:13)GLUBED 572 *H PHOS (01/30/22 01:10)PHOSPHO JODIE 1.6 L BASIC METABOLIC PANEL (01/30/22 01:10)SODIUM 142 POTASSIUM 3.5CHLORIDE 106CARBON DIOXIDE 17L LANION GAP 22. 5 HGLUCOSE 634*H *HBLOOD UREA NITROGEN 36H HGLOMERULAR FILT RATION RATE 29 LCREATININE 2.2H HBUN/CREATININE RATIO 16.4CA LCIUM 8.5 MAG (01/30/22 01:10)MAGNESIUM 2.0 GLU BED (01/30 00:01)GLUBED > 600 *H K (01/30/22 00:00)POTASSIU M 3.6 GLU BED (01/29/22 23:13)GLUBED > 600 *H OSMO ( 23:05)OSMOLALITY SERUM 385 H BASIC METABOLIC CAMACHO EL (01/29/22 23:05)SODIUM 140POTASSIUM 3.9CHLORIDE 103CARBON DIOXIDE 13L LANION GAP 27.9 HGLUCOSE 816*H *HBLO OD UREA NITROGEN 40H HGLOMERULAR FILTRATION RATE 27 LCRE ATININE 2.3H HBUN/CREATININE RATIO 17.4CALCIUM 8.5 LACT IC ACID (01/29/22 23:05)LACTIC ACID 5.4 H GLU BED (01/29 22:03)GLUBED > 600 *H MAG (01/29/22 22:00)MAGNES IUM 2.2 PHOS (01/29/22 22:00)PHOSPHOROUS 5.7 H BASIC MET ABOLIC PANEL (01/29/22 22:00)SODIUM 139POTASSIUM 4.0CHL ORIDE 101CARBON DIOXIDE 11L LANION GAP 31.0 HGLUCOSE 8 39*H *HBLOOD UREA NITROGEN 40H HGLOMERULAR FILTRATION RATE 27 L CREATININE 2.3H HBUN/CREATININE RATIO 17.4CALCIU M 8.6 GLU BED (01/29/22 20:53)GLUBED > 600 *H BASIC METABO LIC PANEL (01/29/22 20:50)SODIUM 139POTASSIUM 4.2CHLORIDE 102CARBON DIOXIDE 8L LANION GAP 33.2 HGLUCOSE 924*H *HBLO OD UREA NITROGEN 39H HGLOMERULAR FILTRATION RATE 25 LCRE ATININE 2.5H HBUN/CREATININE RATIO 15.6CALCIUM 8.7 PHOS (01/29/22 20:50)PHOSPHOROUS 7.1 H ARTERIAL BLOOD GAS ( 05/22 19:30)ARTERIAL BLOOD GAS PH 6.857 *LARTERIAL BLO OD GAS PCO2 27.0 LARTERIAL BLOOD GAS PO2 345.9 HBICARBONATE TOTAL HCO3 4.7 LBASE EXCESS -27.8 LABG O2 SATURATION 99.7 H ABG TYPE ArterialARTERIAL FIO2 50.0PaO2/FiO2 691.80ABG VE NT MODE PRVCABG VENT RESP RATE 25ABG TIDAL VOLUME 380ABG PEEP 5.0ABG SITE Right RadialALLENS TEST YesTOTAL HGB 10.9 LTCO2 ARTERIAL 5.5 LCRITICAL VALUE N/A ISTAT BLOOD GAS VENOUS (01/29/22 17:33)IONIZED CALCIUM 1.21VENOUS BLOOD GAS PH 6.96 *LVENOUS BLOOD GAS PCO2 27 LVENOUS BLOOD GA S PO2 70 HVBG HCO3 6 LVBG BASE EXCESS -26 LVENOUS BLOOD G O2 SAT 81 HTOTAL CO2 CONTENT 7.0 *LHEMOGLOBIN POC 11.9 LHEMATOCRIT POC 35.0 LSODIUM POC 134 LPOTASSIUM POC 5.0 HGL UCOSE POC > 625 *H LACTIC ACID (01/29/22 17:24)LACTIC ACID 7 .6 H ACETNQL (01/29/22 15:49)ACETONE QUAL MODERATE H LIP (01/29/22 15:49)LIPASE 143 HGBA1C - GLYCOSYLATED HGB (01/29/22 15:49)GLYCOSYLATED HEMOGLOBIN (HA1C) > 14.0 H PTT (01/29/22 15:49)THROMBOPLASTIN TIME PARTIAL 30.2 MAG (01/29/22 15:49)MAGNESIUM 2.3 LIVER FUNCTION CAMACHO EL (01/29/22 15:49)TOTAL PROTEIN 9.2 HALBUMIN 3.9G LOBULIN 5.3 HBILIRUBIN TOTAL 0.6BILIRUBIN DIRECT 0.2BILIRUBI N INDIRECT 0.4SGOT/AST 26SGPT/ALT 25ALKALINE PHOSPHATASE 1 63 H CBC W/AUTO DIFF (01/29/22 15:49)WHITE BLOOD CELL 9.1 RED BLOOD CELL 4.23HEMOGLOBIN 12.6HEMATOCRIT 44.3MEAN CELL VOLUME 105 HMEAN CELL HGB 29.8MEAN CELL HGB CONCENTRATION 2 8.4 LRED CELL DISTRIBUTION WIDTH 14.0PLATELET COUNT 308ME AN PLATELET VOLUME 10.9NEUTROPHIL % 83.1 HIMMATURE GRANULOCY TE % 3.6 HLYMPHOCYTE % 8.7 LMONOCYTE % 3.4EOSINOPHIL % 0. 1BASOPHIL % 1.1NUCLEATED RBC % 0.0NEUTROPHIL # 7.53 HIMMATUR E GRANULOCYTE # 0.330 HLYMPHOCYTE # 0.79 LMONOCYTE # 0.31EOSINOPHIL # 0.01BASOPHIL # 0.10NUCLEATED RB C # 0.000 BASIC METABOLIC PANEL (01/29/22 15:49)SODIUM 128 L LPOTASSIUM 5.1CHLORIDE 91L LCARBON DIOXIDE 9L LA NION GAP 33.1 HGLUCOSE 976*H *H BLOOD UREA NITROGEN 41H H GLOMERULAR FILTRATION RATE 26 LCREATININE 2.4D H D HBUN/CRE ATININE RATIO 17.1CALCIUM 10.3 H TROP-I HIGH SEN ( 15:49)TROP-I HIGH SENSITIVITY 21 PROTHROMBIN MARY JO E (01/29/22 15:49)PROTHROMBIN TIME PATIENT 30.5 HINTERNATION AL NORMAL RATIO 2.7 H ALCOHOL (01/29/22 15:49)ALCOHOL < 3 LIPID PROFILE (CORONARY RISK) (01/29/22 15:49)TRIGLYCE RIDES 166 HCHOLESTEROL 345 HCHOLESTEROL/HDL RATIO 5HDL CH OLESTEROL 76 HLIPOPROTEIN LDL 224 H OSMO (01/29/22 15:49)O SMOLALITY SERUM 376 H PHOS (01/29/22 15:49)PHOSPHOROUS 7.0 H CK (01/29/22 15:49)CREATINE KINASE (CK) 87 COVID 19 INH AG (01/29/22 15:49)COVID 19 INHOUSE AG NEGATIVE LAC TIC ACID (01/29/22 15:49)LACTIC ACID 5.0 H GLU BED (01/29 15:41)GLUBED > 600 *H GLU BED (01/29/22 15:26)GL UBED > 600 *H -- ATTESTATION -- TIME SPENT ON PATIENT CARE: - Direct 50 minutes CARE ACTIVITIES / CARE COORDINATION: - I have reviewed the history and repeated the ingram elemen ts - I have seen and examined this patient - I have discusse d the patient's condition with other members of the ca re team ADDITIONAL DETAIL:I HAVE SPENT >50 MINUTES IN E EVALUATION AND TREATMENT OF THIS PATIENT. Signed in PatientKeeper by Nini Daon MD on 06/22 at 09:50 at 0950ATTENTION EDITS and/or ADDENDA must be ma de in Patient Keeper for this note. Edits and ammen dments created in [employer] are not visible in Patien t Keeper or the legal medical record (HPF). RPT #: [id number] OF [id number]:43:00NC.[id number] for patient [id number]:52:16 2022-01-30 [id number]:08:00 [facility] 06:08:00 [facility] ([facility])Intensive Care Progress Note REPOR T #: [id number] REPORT STATUS: Signed DATE: 01/30/22 T EDUARDO: [id number] PATIENT: DANIELE HINKLE UNIT #: [id number] ROOM #: NC.IC09 BED: A : 3 AGE: 71 SEX: F ATTEND: Erasmo Fay MD ADM DT: AUTHOR: KarelBeckykimberlylandy HERB ATTENTION EDITS and/or ADDENDA must be made i n Patient Keeper for this note. Edits and ammendments c reated in [employer] are not visible in Patient Keeper or the legal medical record (HPF). -- CO-SIGNATURE -- COMMENTS:I eval uated and discussed the patient with the mid-level provide r. I personallyreviewed the HPI, PH, FH, SH, ROS and medications, and reviewed the relevantimaging an d laboratory data. I agree with the findings, asse ssment and plan asdocumented. Glucose, metabolic derangemen ts, and renal function are improving.Will try sedation h oliday and then CPAP trial if tolerated --plan forextubatio n when able.Continue insulin drip.UA consistent with UT I. Follow-up cultures. Continue empiric Vanco and c efepime.ABG was reviewed, and vent settings were adjusted accordingly.Start Pepcid for GI prophylaxis. Dis cussed with the patient's daughter at bedside. All questions were answered.Discussed on multidisciplinary rounds. Critical care time: 32 minutes. Signed in PatientKeeper LILLI Lambert MD on 01/30/22 at 14:08 -- ASSESSMENT AND PLAN -- GENERAL ASSESSMENT:[facility] AssessmentAcute respirat ory failure with hypoxiaDKA, with comaAcute metabolic encephalopathyAnion-gap metabolic acidosisAcute renal failureSepsisPseudohyponatremiaconstipationDMHTN Dyslipidemi a Plan:Neurologic: patient emergently intubated in ED, as she desatted to 40s w/ bradycardia worsening men tation.pt intubated/sedated. Likely w/ acute metabolic enc ephalopathy 2/[address] headnegative. Pulmonary: COVID negat ivemental status precludes vent weaning currently -- wean as tolerated.ABG acceptable. P/F ratio 541CXR revie wed, No acute process Cardiovascular: Monitor HR, BP.Res ume home antihypertensives, ASA, Plavix when her mentatio n improves. Hematologic: Monitor H/H, platelets. Transfuse t o keep Hgb > 7.Heparin for DVT prophylaxis Renal: Monitor U OP, BUN, Cr, avoid nephrotoxinsReplace electrolytes as ne eded.In the past, ADOLFO has improved with volume resuscitation . Continue IV fluids asper DKA protocol.(01/29) 2 amps HCO3 for pH 6.9/bicarb 6. 2 more amps HCO3 given for repeat pH6.86/bicarb 4Elevated potassium improving. Gastrointestinal: CT A/P with large stool burden -- f/u official readstart suppository PO bowel regimen -- will likely require enemaN.p.o. for now Infectious di sease: Trend WBC, fever curve, Follow-up cultures.Lacti c acid elevated. No evidence of pneumonia. UA is pendin g. CT A/P pending-- trend lactic acidempiric Vanco and cef epime. Endocrine: pt given an additional 10 units IV in sulin 1L IVF as glucose essentiallyunchanged (900+ on arr ival from ED)insulin drip and aggressive IV fluid hydration.Endocrinology consulted. Dispo: ICUCod e Status: FullVTE ppx: Heparin D/w pt.Discussed with gracia gramajo RN, patient Subjectiveremains i ntubated. AG still elevated tho improvingblood glucose lac tic acid bettermaking urine. Cr slightly better.daughter updated early in evening RE: intubation.CT A/P not yet r ead, but appears to have large stool burden HPI: Ms. Simone sánchez is a 71-year-old woman with a history of diabetes who presentswith acute encephalopathy. Patient's blo od sugar was reportedly reading as"high" when her checked it today. He called EMS, and the patient wasinitial ly refusing transport to the ED but then acutely became alte red. She wasbrought into the emergency department for jose luation --found to be in DKA withanion gap of 33, glucos e of 976, and pH of 6.96. Her eyes are open, sheresponds a nd appropriately. Cannot hold a conversation. Past medical history: HTN, DM, CAD, retinopathy, diabetic neuropathy,dyslipidemiaPSurgHx: Retinal surgery, hysterectomyFamily history: NoncontributorySocHx : Former smoker Review of systems: Unable to assess due t o encephalopathy Physical ExamGeneral: Elderly Afr ican [place]an female.Eyes: Anicteric sclerae.Mouth: M MMNeck: Supple.CV: tachycardic. Normal S1 and S2.Pulm: m echanically ventilated breaths. no wheezing or Rales appreciated.Abdomen: Soft, no evidence of tender.Extremities: No lower extremity edema.Ski n: Warm, dry.Neuro: limited exam d/t sedationPsych: defer d/t sedation -- OBJECTIVE -- VITALS (01/29 02:13 - 1 02:13): Pulse Rate 109 (88 - 139)Respiratory rat e: 32 (19 - 32)BP: 92/58 (92/58 - 141/97) -- DATA -- MEDICAT IONS SODIUM PHOSPHATE with/in SODIUM CHLORIDE 0.9% 15 MM IV ASDIR (PRN)MAGNESIUM 5 GM IV ASDIR (PRN)DEXTROSE 50%-W ATER 50 ML IV ASDIRVANCOMYCIN PHARMACY TO DOSE 1 EACH IV DIRHEPARIN SODIUM,PORCINE 5000 UNIT SUBQ [id number] 1 MG IM ASDIR PRNSODIUM CHLORIDE 0.9% 1000 ML IV ASDIRLACTULOS E 30 ML PO BIDpolyethylene glycoL 3350 1 PKT PO DAILY PRNDE XTROSE 5%-0.45% SALINE 1000 ML IV ASDIRMAGNESIUM 3 GM I V ASDIR (PRN)MAGNESIUM 2 GM IV ASDIR (PRN)MAGNESIUM 4 GM IV ASDIR (PRN)POTASSIUM CHLORIDE 20 MEQ IV ASDIRSODIUM CH LORIDE 0.45% 1000 ML IV ASDIRMUPIROCIN 1 APPLIC NASAL B IDFENTANYL CITRATE-0.9 % NACL/PF 2500 MCG IV ASDIRINSULIN R EGULAR, HUMAN with/in SODIUM CHLORIDE 100 mL BAG 100 UNI T IV ASDIRSOD BIPHOS/POT PHOSPHATE 1 PKT PO ASDIR (IA N)SODIUM PHOSPHATE with/in SODIUM CHLORIDE 0.9% 20 MM IV ASDIR (PRN)POTASSIUM BICARBONATE/CIT AC 20 MEQ PO ASDI RSODIUM PHOSPHATE with/in SODIUM CHLORIDE 0.9% 30 MM IV ASDIR (PRN)CEFEPIME HCL with/in SODIUM CHLORIDE 0.9% 1 GM IV Q12H LABS GLU BED (01/30/22 02:09)GLUBED 493 *H GLU B ED (01/30/22 01:13)GLUBED 572 *H GLU BED (01/30/22 00:01)GLUBED > 600 *H K (01/30/22 00:00)POTASSIU M 3.6 GLU BED (01/29/22 23:13)GLUBED > 600 *H OSMO ( 23:05)OSMOLALITY SERUM 385 H BASIC METABOLIC CAMACHO EL (01/29/22 23:05)SODIUM 140POTASSIUM 3.9CHLORIDE 103CARBON DIOXIDE 13L LANION GAP 27.9 HGLUCOSE 816*H *HBL OOD UREA NITROGEN 40H H GLOMERULAR FILTRATION RATE 27 LCR EATININE 2.3H HBUN/CREATININE RATIO 17.4CALCIUM 8.5 LACTI C ACID (01/29/22 23:05)LACTIC ACID 5.4 H GLU BED (01/29 22:03)GLUBED > 600 *H MAG (01/29/22 22:00)MAGNES IUM 2.2 PHOS (01/29/22 22:00)PHOSPHOROUS 5.7 H BASIC MET ABOLIC PANEL (01/29/22 22:00)SODIUM 139POTASSIUM 4.0CHL ORIDE 101CARBON DIOXIDE 11L LANION GAP 31.0 HGLUCOSE 8 39*H *HBLOOD UREA NITROGEN 40H HGLOMERULAR FILTRATION RATE 27 LCREATININE 2.3H HBUN/CREATININE RATIO 17.4CALCI UM 8.6 GLU BED (01/29/22 20:53)GLUBED > 600 *H BASIC METABO LIC PANEL (01/29/22 20:50)SODIUM 139POTASSIUM 4.2CHLORIDE 102CARBON DIOXIDE 8L LANION GAP 33.2 HGLUCOSE 924*H *HBLOO D UREA NITROGEN 39H HGLOMERULAR FILTRATION RATE 25 LCRE ATININE 2.5H HBUN/CREATININE RATIO 15.6CALCIUM 8.7 PHOS (01/29/22 20:50)PHOSPHOROUS 7.1 H ARTERIAL BLOOD GAS ( 05/22 19:30)ARTERIAL BLOOD GAS PH 6.857 *LARTERIAL BLO OD GAS PCO2 27.0 LARTERIAL BLOOD GAS PO2 345.9 HBICARBONATE TOTAL HCO3 4.7 LBASE EXCESS -27.8 LABG O2 SATURATION 99.7 HABG TYPE ArterialARTERIAL FIO2 50.0PaO2/FiO2 691.80ABG VE NT MODE PRVC ABG VENT RESP RATE 25ABG TIDAL VOLUME 380AB G PEEP 5.0ABG SITE Right RadialALLENS TEST YesTOTAL HGB 10.9 LTCO2 ARTERIAL 5.5 LCRITICAL VALUE N/A ISTAT BLOOD GA S VENOUS (01/29/22 17:33)IONIZED CALCIUM 1.21VENOUS BLOOD GAS PH 6.96 *LVENOUS BLOOD GAS PCO2 27 LVENOUS BLOOD G PO2 70 HVBG HCO3 6 LVBG BASE EXCESS -26 LVENOUS BLOOD G O2 SAT 81 HTOTAL CO2 CONTENT 7.0 *LHEMOGLOBIN POC 11.9 LHEMATOCRIT POC 35.0 LSODIUM POC 134 LPOTASSIUM POC 5.0 HGLU COSE POC > 625 *H LACTIC ACID (01/29/22 17:24)LACTIC ACID 7 .6 H ACETNQL (01/29/22 15:49)ACETONE QUAL MODERATE H LIP (01/29/22 15:49)LIPASE 143 LIPID PROFILE (SCHMID RY RISK) (01/29/22 15:49)TRIGLYCERIDES 166 HCHOLESTEROL 3 45 HCHOLESTEROL/HDL RATIO 5HDL CHOLESTEROL 76 HLIPO PROTEIN LDL 224 H HGBA1C - GLYCOSYLATED HGB (01/29/22 15:49)GLYCOSYLATED HEMOGLOBIN (HA1C) > 14.0 H OS MO (01/29/22 15:49)OSMOLALITY SERUM 376 H PHOS (05/22 15:49)PHOSPHOROUS 7.0 H CK (01/29/22 15:49)CREA MELE KINASE (CK) 87 PTT (01/29/22 15:49)THROMBOPLASTIN TIME PARTIAL 30.2 MAG (01/29/22 15:49)MAGNESIUM 2.3 LIVER FUN CTION PANEL (01/29/22 15:49)TOTAL PROTEIN 9.2 H ALBUMIN 3.9G LOBULIN 5.3 HBILIRUBIN TOTAL 0.6BILIRUBIN DIRECT 0.2BILIRUB IN INDIRECT 0.4SGOT/AST 26SGPT/ALT 25ALKALINE PHOSPHATASE 16 3 H CBC W/AUTO DIFF (01/29/22 15:49)WHITE BLOOD CELL 9.1 RED BLOOD CELL 4.23HEMOGLOBIN 12.6HEMATOCRIT 44.3MEAN CELL VOLUME 105 HMEAN CELL HGB 29.8MEAN CELL HGB CONCENTRATION 2 8.4 LRED CELL DISTRIBUTION WIDTH 14.0PLATELET COUNT 308ME AN PLATELET VOLUME 10.9NEUTROPHIL % 83.1 HIMMATURE GRANULOCY TE % 3.6 HLYMPHOCYTE % 8.7 LMONOCYTE % 3.4EOSINOPHIL % 0. 1BASOPHIL % 1.1NUCLEATED RBC % 0.0NEUTROPHIL # 7.53 HIMMATUR E GRANULOCYTE # 0.330 HLYMPHOCYTE # 0.79 LMONOCYTE # 0.31EOSINOPHIL # 0.01BASOPHIL # 0.10NUCLEATED R BC # 0.000 COVID 19 INH AG (01/29/22 15:49)COVID 19 INHOUSE AG NEGATIVE LACTIC ACID (01/29/22 15:49)LACTIC ACID 5.0 H BASIC METABOLIC PANEL (01/29/22 15:49)SODIUM 128 L LPOTASSIUM 5.1CHLORIDE 91L LCARBON DIOXIDE 9L LA NION GAP 33.1 HGLUCOSE 976*H *HBLOOD UREA NITROGEN 41H HG LOMERULAR FILTRATION RATE 26 LCREATININE 2.4D H D HBUN/CRE ATININE RATIO 17.1CALCIUM 10.3 H TROP-I HIGH SEN ( 15:49)TROP-I HIGH SENSITIVITY 21 PROTHROMBIN MARY JO E (01/29/22 15:49)PROTHROMBIN TIME PATIENT 30.5 HINTERNATION AL NORMAL RATIO 2.7 H ALCOHOL (01/29/22 15:49)ALCOHOL < 3 GLU BED (01/29/22 15:41)GLUBED > 600 *H GLU BED ( 2 15:26)GLUBED > 600 *H Signed in PatientKeeper by Can Vinson APRN on 01/30/22 at 06:08 Cosigned by LILLI HSU MD on 01/30/22 at 14:08 at 1408Electronically Si gned by Lilli Terrell MD on 01/30/22 at 1408ATTENTION EDITS and/or ADDENDA must be ma de in Patient Keeper for this note. Edits and ammen dments created in [facility] are not visible in Patien t Keeper or the legal medical record (HPF). [facility] #: [id number] OF REPORT PRProgress [id number]:[id number] Available for patient [id number]:3 9 2022-01-29 [id number]:00 [facility]00 [facility])Pharmacy Prog.Note-VancomycinREPORT#:[id number] REPORT STA TUS: SignedDATE:01/29/22 TIME: 1820 PATIENT: Parag HINKLE UNIT #: [id number]#: [id number] R OOM: LUDY.ERICBED: 1DOB: [birth year] AGE: 71 SEX: F ATTEND : Erasmo Fay MDADM AUTHOR: Carol Ruiz [facility] * ALL edits or amendments must be made on th e electronic/computer document * Vancomycin Vancom ycin Medication TherapyGoal: trough 15-20 mcg/mLIndic ation for treatment:SEPSISCurrent therapy:DOSE 1 GM ONCE, DOSE BY LEVELDay of therapy:DAY 1 OF 7 DAYSTreatment shravan n: consultFollow up: Lab:[facility] AT 1999 ON 01-30 Joselyn ctronically Signed by Carol Díaz [facility] on 01/29/22 at 1822 RP T #:[id number] OF REPORTPRProgress [id number]:21:[id number] ilable for patient [id number]:23:02 2022-01-29 [id number]:01:00 THIS REPORT HAS BEEN FORMERLY [facility] 18:01:00 APPENDED [facility] ([facility])Int ensive Care Consultation REPORT #: [id number] REPORT STATUS: Signed DATE: 01/29/22 TIME: 1800 PATIENT: ROHIT HINKLE UNIT #: [id number] #: [id number] ROOM # : NC.ERICUBED: 1 : 52 AGE: 71 SEX: F ATTE ND: Erasmo Fay MD ADM AUTHOR: Lilli Terrell MD ATTENTION EDITS and/or ADDENDA must be made i n Patient Keeper for this note. Edits and ammendments c reated in [employer] are not visible in Patient Keeper or the legal medical record (HPF). -- ASSESSMENT AND PLAN -- GENERAL ASSESSMENT:[facility] AssessmentDKA, with coma Acute metabolic encephalopathyAnion-gap metabolic acid osisAcute renal failureSepsisPseudohyponatremiaDMHTNDyslip idemia Plan:Neurologic: Awake but confused. Likely has acute metabolic encephalopathy secondary to DKA.CT hea d was negative. Pulmonary: Tolerating RA; supplemental O2 if needed to keep SpO2 > 92%CXR reviewed, No acute process Cardiovascular: Monitor HR, BP.Resume home antihypertensives, ASA, Plavix when her mentatio n improves. Hematologic: Monitor H/H, platelets. Transfuse t o keep Hgb > 7.Heparin for DVT prophylaxis Renal: Monitor U OP, BUN, Cr.Replace electrolytes as needed.Avoid nephroto xins.In the past, ADOLFO has improved with volume resuscitation . Continue IV fluids asper DKA protocol.Severe metabolic ac idosis noted, as pH 6.96. We will give 2 amps of bicarb .Elevated potassium should improve with insulin administra tion and IV fluidhydration. Gastrointestinal: N.p.o. for now Infectious disease: Trend WBC, fever curveFollow-up culture s.Lactic acid was elevated. No evidence of pneumonia. UA is pending. Get CTabdomen and pelvis and trend lactic acid.S tart empiric Vanco and cefepime. Endocrine: Start ins ulin drip and aggressive IV fluid hydration.Endocrinology consulted. Dispo: ICUCode Status: FullVTE ppx: Heparin D/w pt.Discussed with ED RN and ED MD. HPI: Ms. Hinkle is a 71-year-old woman with a history of diabetes who presentswith acute encephalopathy. Patient's blo od sugar was reportedly reading as"high" when her checked it today. He called EMS, and the patient wasinitial ly refusing transport to the ED but then acutely became alte red. She wasbrought into the emergency department for jose luation --found to be in DKA withanion gap of 33, glucos e of 976, and pH of 6.96. Her eyes are open, sheresponds a nd appropriately. Cannot hold a conversation. Past medical history: HTN, DM, CAD, retinopathy, diabetic neuropathy,dyslipidemiaPSurgHx: Retinal surgery, hysterectomyFamily history: NoncontributorySocHx : Former smoker Review of systems: Unable to assess due t o encephalopathy Physical ExamGeneral: NAD, awake but confusedEyes: Anicteric sclerae.Mouth: MMMNeck: Supple.CV: Regular rate and rhythm. Normal S1 and S2.Pulm: Good effort, no wheezing or Rales appreciated.Abdomen : Soft, nontender.Extremities: No lower extremity edema. Skin: Warm, dry.Neuro: ConfusedPsych: Calm -- OBJECTIVE -- V ITALS (01/28 18:01 - 01/29 18:01):Pulse Rate 113 (105 - 117)Respiratory rate: 22 (19 - 26)BP: 141/72 (97 /60 - 141/72) -- DATA -- MEDICATIONS MUPIROCIN 1 APPLI C NASAL BIDINSULIN REGULAR, HUMAN with/in SODIUM CHLORID E 100 mL BAG 100 UNIT IV ASDIRNA CHLOR 0.9%/POT CHLORIDE 20 MEQ IV .Q6H40M LABS ISTAT BLOOD GAS VENOUS (01/29/22 17 :33)IONIZED CALCIUM 1.21VENOUS BLOOD GAS PH 6.96 *LVENOUS BL OOD GAS PCO2 27 LVENOUS BLOOD GAS PO2 70 HVBG HCO3 6 LVB G BASE EXCESS -26 LVENOUS BLOOD GAS O2 SAT 81 HTOTAL C O2 CONTENT 7.0 *LHEMOGLOBIN POC 11.9 LHEMATOCRIT POC 35.0 L SODIUM POC 134 LPOTASSIUM POC 5.0 HGLUCOSE POC > 625 *H LACTIC ACID (01/29/22 17:24)LACTIC ACID 7.6 H MAG (01/29/22 15:49)MAGNESIUM 2.3 ACETNQL (01/29/22 15:49)WALDEMAR TONE QUAL MODERATE H LIVER FUNCTION PANEL (01/29/22 15:49) TOTAL PROTEIN 9.2 HALBUMIN 3.9GLOBULIN 5.3 HBILIRUBIN TOTAL 0.6BILIRUBIN DIRECT 0.2BILIRUBIN INDIRECT 0.4SGO T/AST 26SGPT/ALT 25ALKALINE PHOSPHATASE 163 H LIPID P ROFILE (CORONARY RISK) (01/29/22 15:49)TRIGLYCERIDES 16 6 HCHOLESTEROL 345 HCHOLESTEROL/HDL RATIO 5HDL CHO LESTEROL 76 HLIPOPROTEIN LDL 224 H CBC W/AUTO DIFF (01/29/22 15:49)WHITE BLOOD CELL 9.1RED BLOOD CELL 4.23HEM OGLOBIN 12.6HEMATOCRIT 44.3MEAN CELL VOLUME 105 HMEAN CE LL HGB 29.8MEAN CELL HGB CONCENTRATION 28.4 LRED CELL D ISTRIBUTION WIDTH 14.0PLATELET COUNT 308MEAN PLATELET VOLUME 10.9NEUTROPHIL % 83.1 HIMMATURE GRANULOCYTE % 3. 6 HLYMPHOCYTE % 8.7 LMONOCYTE % 3.4EOSINOPHIL % 0 .1BASOPHIL % 1.1NUCLEATED RBC % 0.0NEUTROPHIL # 7.53 HIMMAT URE GRANULOCYTE # 0.330 HLYMPHOCYTE # 0.79 LMONOCYTE # 0.31EOSINOPHIL # 0.01BASOPHIL # 0.10NUCLEATED RB C # 0.000 COVID 19 INH AG (01/29/22 15:49)COVID 19 INHOUSE AG NEGATIVE LACTIC ACID (01/29/22 15:49)LACTIC ACID 5.0 H BASIC METABOLIC PANEL (01/29/22 15:49)SODIUM 128 L LPOTASSIUM 5.1CHLORIDE 91L LCARBON DIOXIDE 9L LA NION GAP 33.1 H GLUCOSE 976*H *HBLOOD UREA NITROGEN 41H H GLOMERULAR FILTRATION RATE 26 LCREATININE 2.4D H D HBUN/CRE ATININE RATIO 17.1CALCIUM 10.3 H TROP-I HIGH SEN ( 15:49)TROP-I HIGH SENSITIVITY 21 ALCOHOL ( 15:49)ALCOHOL < 3 GLU BED (01/29/22 15:41)GLUBED > 600 *H GLU BED (01/29/22 15:26)GLUBED > 600 *H -- ATTES TATION -- TIME SPENT ON PATIENT CARE: - Direct - Counselin g - Coordination of care - Critical care: time spent apart from any procedure 32 minutes - > 50% of time spent o n Counseling/Care Coordination CARE ACTIVITIES / C ARE COORDINATION: - I have reviewed the history and repeated the ingram elements - I have seen and examined this patient - I have reviewed the progress in the clinical cou rse since the lastexamination - I have discussed the patie nt's condition with other members of the care team Si gned in PatientKeeper by Lilli Terrell MD on 01/29/22 at 18:12 Electronically Signed by Lilli Terrell MD on 05/22 at 1812 SECTION 2 ADDENDUM 1: 01/29/22 1845 PTKEEPE RCalled by ED physician; patient was emergently intubated, as she desatted to40s, went bradycardic, and had worsen ing mentation.ABG and CXR are pending.Attempted to c all patient's dtr Kenrick to update her regarding the patient'schange in status and to confirm pt's co de status, but there was no answer andvoice mailbox was full. at [phone] ATTENTION EDITS and/or ADDENDA must be made i n Patient Keeper for this note. Edits and ammendments c [facility] are not visible in Patient Keeper or the legal medical record (HPF). RPT #: [id number] OF [id number].PK- [id number] for patient [id number]:13:02 2022-01-29 [id number]:45:00 [facility] 16:45:00 [facility] ([facility])EMERGENCY PROVIDER REPORTREPORT#:[id number] REPORT STATUS: SignedDAT E:01/29/22 TIME: 1645 PATIENT: DANIELE HINKLE UNIT #: [id number]#: [id number] ROOM: [address] D: 1AGE: 71 SEX: F PCP PHYS: Erasmo Fay D AUTHOR: Elisabet Waldron MD * ALL edits or am endments must be made on the electronic/computer document * See AddendumHPI-Altered Mental Status Free Text HP I NotesFree Text HPI [age]eyd43-izan-yvi female with a history of diabetes, CAD, blindness, neuropathy who present s with altered mental status. EMS was initially called to patient's homeby her who states that he checked her blood sugar and it read high. On EMS arrival, angel luis aguilar was initially refusing transport but then subsequent ly became altered. Per EMS, blood sugar also reading high, slightly tachycardic but normal vital signs. On arrival, no further history obtainable from the patient due to alter ed mental status. GeneralInitial Greet Date/Time 01/29/22 1523 PresentationChief Complaint Confused, Hyperglyce harmeet Risk-Altered Mental StatusNIH Stroke Scale NIH S troke Scale Response Value NIHSS Applicable? No 0 Total 0 R eview of Systems ROS StatementsUnable to Obtain ROS Alter ed mental status Past Medical History - AdultStated Compla int ams, bs (high)AllergiesCoded Allergies:codeine (Intermed iate, RASH-HIVES 08/10/20)lisinopril (Intermediate, RA SH-RAISED 08/10/20) Home MedicationsActive ScriptsCefdinir (Omnicef) 300 MG PO Q12H Cefdinir (Omnicef) 300 MG PO Q12H #10 CAP Prov: 11/30/21Oxybutynin (Ditropan) 5 MG PO TID Oxybutynin (Ditropan) 5 MG PO TID #90 TAB Ref 2 Prov: 11/30 Reported MedicationsMetoprolol Succ Xl (Toprol X l) 25 MG PO DAILY Aspirin 81 MG PO BEDTIME Clopidogrel Bisul fate (Plavix) 75 MG PO DAILY Metoprolol Tartrate (Lop ressor) 12.5 MG PO Q12HR Ezetimibe (Zetia) 10 MG PO WILMAN Y Isosorbide Dinitrate (Isordil) 5 MG PO BID 9A 5P Midodrine (Proamatine) 5 MG PO TID PRN sbp<100 Cholecalcif shelby (Vitamin D3) (Vitamin D3) 8,000 UNIT PO QPM Done pezil (Aricept) 5 MG PO BEDTIME Insulin Lispro (Humalo g) 0 UNITS SUBQ AC HS Insulin Glargine (Lantus) 24 UNITS LANDIN BQ QAM Ranolazine Er (Ranexa) 1,000 MG PO Q12HR Aspirin Ec 81 MG PO DAILY Calculated Suicide Risk (nurs) No riskP ast Medical History:Reports: Coronary artery disease, Diabet es mellitus, Hypertension. Additional Medical HistoryDiabetesDKAMINeuropathyVisual ImpairmentA dditional Surgical HistoryNoneAdditional Family HistoryNoncontributoryAlcohol Use Alcohol use (f ormer)Drug Use Denies recreational drugsSmoking status for patients 13 years old or older: Unknown,if ever smoked Physi abhianv Exam Vital SignsVital SignsFirst Documented: Result D ate Time O2 Delivery Room air 01/29 1520 Pulse Ox 99 01/29 1529 B/P 124/68 01/29 1529 Pulse 117 01/29 1529 Resp 22 1 1601 Last Documented: Result Date Time Pulse Ox 100 1 1721 Pulse 107 01/29 1721 Resp 21 01/29 1721 B/P 102 /64 01/29 1714 O2 Delivery Room air 01/29 1520 Review of V ital Signs Reviewed, Vital signs abnormal Free Text PE Note sFree Text PE NotesConstitutional: Altered, no acute distre ssHead: Normocephalic, atraumaticEyes: Left eye irregula r pupil, right eye irregular globeENT: Trachea midlineLym ph: No palpable lymphadenopathyRespiratory: Clear to au scultation bilaterally, no wheezing rhonchi or ralesCardiac : Tachycardic, no murmursGI: Abdomen soft, nontend er, nondistendedGU: DeferredSkin: No erythema, no ra shMSK: No pedal edema, pulses intact, no tenderness to palpationNeuro: Altered, incoherentPsych: Agitat ed and confused Interpretation Diagnostics Lab Results InterpretationResultsLaboratory Tests 01/29/22 1549:[Embedded Image Not Available]Laboratory Te sts: 01/29 01/29 1526 1541 Chemistry POC Glucose (70 - 105 mg/dL) > 600 *H > 600 *H 01/29 01/29 01/29 1549 1549 1549 Chemistry Sodium (135 - 145 mmol/L) 128 L Potassium (3.5 - 5.1 mmol/L) 5.1 Chloride (98 - 107 mmol/L) 91 L Car bon Dioxide (21 - 32 mmol/L) 9 L Anion Gap (2.0 - 16.0) 33. 1 H BUN (4 - 23 mg/dL) 41 H Creatinine (0.6 - 1.5 mg/dL) 2. 4 H Glomerular Filtr Rate (>60 ml/min) 26 L BUN/Cre atinine Ratio (12.0 - 20.0) 17.1 Glucose (65 - 99 mg/dL) 976 *H Hemoglobin A1c (4.5 - 5.9 %) > 14.0 H Calcium (8 .5 - 10.1 mg/dL) 10.3 H Magnesium (1.8 - 2.4 mg/dL) 2.3 To terra Bilirubin (0.2 - 1.2 mg/dL) 0.6 Direct Bilirubin (0.0 - 0.3 mg/dL) 0.2 Indirect Bilirubin (0.0 - 0.8 mg/dL) 0.4 AST (15 - 37 U/L) 26 ALT (6 - 50 U/L) 25 Total Alk Phosp hatase (45 - 117 U/L) 163 H Troponin I High Sens (0 - 53 pg /mL) 21 Total Protein (6.4 - 8.2 g/dL) 9.2 H Albumin (3. 4 - 5.0 g/dL) 3.9 Globulin (2.3 - 3.5 g/dL) 5.3 H Trigly cerides (0 - 149 mg/dL) 166 H Cholesterol (0 - 200 mg/dL) 345 H LDL Cholesterol Measurd (0 - 100 mg/dL) 224 H HDL Ch olesterol (40 - 60 mg/dL) 76 H Cholesterol/HDL Ratio (1 - 6) 5 Lipase (73 - 393 U/L) 143Coagulation INR (0.8 - 1.1 RATIO) 2.7 H APTT (25.1 - 36.5 SECONDS) 30.2 PT Patient /Control Mix (9.4 - 12.5 SECONDS) 30.5 HHematology WBC (4 .5 - 11.0 10 3/uL) 9.1 RBC (3.50 - 5.50 10 6/uL) 4.23 Hgb (12.0 - 16.0 g/dL) 12.6 Hct (37.0 - 55.0 %) 44.3 MCV (8 1 - 102 fL) 105 H MCH (26.0 - 34.0 pg) 29.8 MCHC (31.0 - 37. 0 g/dL) 28.4 L RDW (11.6 - 14.4 %) 14.0 Plt Count (150 - 400 10 3/uL) 308 MPV (9.0 - 12.6 fL) 10.9 Neut % (Auto) (33.0 - 76.0 %) 83.1 H Lymph % (Auto) (14.0 - 56.4 %) 8. 7 L Lanier % (Auto) (0.0 - 12.9 %) 3.4 Eos % (Auto) (0.0 - 7. 0 %) 0.1 Baso % (Auto) (0 - 2.0 %) 1.1 Neut # (Auto) (1.5 - 7.0 10 3/uL) 7.53 H Lymph # (Auto) (1.50 - 4.00 10 3/uL ) 0.79 L Lanier # (Auto) (0.20 - 0.80 10 3/uL) 0.31 Eos # ( Auto) (0.0 - 0.5 10 3/uL) 0.01 Baso # (Auto) (0.0 - 0.1 10 3/uL) 0.10 Abs Immat Gran (auto) (0.000 - 0.100 x10 3/uL) 0 .330 H Immature Gran % (0.0 - 1.0 %) 3.6 H Nucleated RB C % (0 - 0.2 %) 0.0 Nucleated RBCs # (0.000 - 0.012 10 3 /uL) 0.000Serology SARS-CoV-2 Ag (Rapid) (Negative) NEGATIVEToxicology Ethyl Alcohol (0 - 3 mg/dL) < 3 Acetone, Qual (NEGATIVE) MODERATE H 01/29 01/29 01/29 1549 1549 1724 Chemistry Serum Osmolality (278 - 305 mOsm/kg) 376 H Lactic Acid (0.4 - 2.0 mmol/L) 5.0 H 7.6 H Phosphorus (2.5 - 4.9 mg/dL) 7.0 H Total Creatine Kinase (2 6 - 308 U/L) 87 Microbiology: Date/Time Procedure - Stat us Source Growth 01/29 170 MRSA Screen - COLB NASAL 01/29 1549 Blood Culture - RECD BLOOD 01/29 1549 Blood Culture - RECD BLOOD 01/29 1535 Blood Culture - RECD BLOOD 01/29 1535 Blood Culture - RECD BLOOD Recent Impressions:RADIOLOG Y - XR CHEST 1 V 01/29 1606 Report Impression - Stat us: SIGNED Entered: 01/29/2022 1649 IMPRESSION: 1. No acute cardiopulmonary process.Impression By: Zohreh - Hector Roach MDCAT SCAN - CT HEAD/BRAIN W/O CONT 01/29 1710 Report Impression - Status: SIGNED Entered: 05/2021 1726 IMPRESSION:No evidence of acute intracranial pat hology. Mild chronic microvascular ischemic changes.Impr ession By: [email or web address] - Janie Duron MD Lab Imaging [facility] tLaboratory radiographic studies reviewed and considered in the medical decision-making. Point of Care TestingPulse Oxim etry Pulse Ox % 99 On: Room air Interpretation Interpreted by me, Pulse oximetry normalRhythm Strip Interpretation Time 0115 Rhythm Strip Interpretation Interpreted by me, S inus tachycardiaBlood Glucose Field fingerstick blood sugar value: High Re-Evaluation MDM Free Text MDM Note sAdditional [id number] female with a history of diabete s, DKA, CAD, blindness, neuropathy who presents with alt ered mental status and elevated blood sugar. Patient altered on arrival, not following commands, incoherent, dif ferentials consideredinclude DKA, HHS, intracranial patholo gy such as intracranial hemorrhage, intracranial mass, pneu monia, UA in the setting of patient being tachycardic andt achypneic, sepsis. Patient immediately started on 30 cc/kg IV fluid for sepsisas well as hydration for hyperglycemia . Patient also given a dose of ceftriaxone given that she meets sepsis criteria. Fingerstick obtained over 600. Patient's labs show blood glucose of over 900, anion gap o f 33. VBG ordered. Patient without leukocytosis, potassium of 5.1. Patient also hyponatremic at 128 which is likely pseudohyponatremia in the setting of elevated bl ood glucose. She also has a new ADOLFO of 2.4 creatinin e. Patient has been given normal saline with repletion of p otassium. pH of 6.95, bicarb of 7 and a PCO2 of 27. Patien t has been started on insulin drip. We will also obtain a C T head as well as a chest x-ray and EKG and troponin. Spok e to ICU Dr. Eng who agrees with admission to the ICU. I also spoke to patient's PCP Dr. Westfall who agrees with adm ission. He recommends consulting patient's medical laboratory technologist Dr. Doan. Consult placed. Patient will be admitt ed to the ICU in critical condition. During patient's [facility] department stay, patient was observed to become acutely altered, obtunded, patient also had a bradycardi c episode from the 115 to 55 and became hypoxic to 45 with sonorous respirations and not maintaining her airway. Sarai ient was given 10 mg of IV insulin at this time given teresa t insulin drip has not been started patient emergently int ubated for airway protection using etomidate and succinylch oline. Patient placed on a ventilator,given concern for DKA, respiratory rate set to 25. Repeat VBG obtained showed worsening pH of 6.85 and a bicarb of 5.5. Batool morales was given a bolus of bicarb. Post intubation x-ray shows t ube in place. Patient subsequently was observed to have a 2-minute seizure that was generalized tonic-clonic after intubation. She was given 2 x 2 mg of Ativan with resolution of the seizure. She was placed on midazolam and fentany l for post sedation. Patient subsequently admitted to the [facility] for further management. )( Re-Evaluation/Progress #1 )( Re-Eval Status Worsened ED CourseMedication(s) OrderedMe dication(s) Ordered:Anti-Infective Agents Sig/Chris Start time Last Medication Dose Route Stop Time Status Admin Cef triaxone Sodium 1,000 MG X1ED STA 01/29 1621 DC 01/29 Sod ium Chloride 10 ML IV 01/29 1623 1654 Electrolytic, Caloric, And Pablo Sig/Chris Start time Last Medication Dose Route Stop Time Status Admin Sodium Chloride 1,000 ML X1ED STA 01/29 1524 DC 01/29 IV 01/29 1623 1556 Hormones And Sy nthetic Substit Sig/Chris Start time Last Medication Dose Route Stop Time Status Admin Insulin Human Regular 100 UNIT ASDIR 01/29 1645 DC Sodium Chloride 100 ML IV 02/28 16 46 Skin And Mucous Membrane Agent Sig/Chris Start time Last Me dication Dose Route Stop Time Status Admin Mupirocin 1 A PPLIC BID 01/29 2100 AC 01/29 NASAL 02/03 0901 2128 Batool morales Discharge Departure Vital Signs/ConditionVital SignsFirst Documented: Result Date Time O2 Delivery Room air 01/29 1520 Pulse Ox 99 01/29 1529 B/P 124/68 01/29 1529 Pulse 117 1529 Resp 22 01/29 1601 Last Documented: Result Date Time Pulse Ox 100 01/29 1721 Pulse 107 01/29 1721 Resp 21 01/29 1721 B/P 102/64 01/29 1714 O2 Delivery Room air 01/29 1520 All vital signs available at the time of this entry have been reviewed. Condition Critical Clinical Impression Clinical ImpressionPrimary Impression: DKA (diabetic ketoacidosis)Secondary Impressions: Acute respir atory failure, ADOLFO (acute kidney injury), Altered ment al status, Pseudohyponatremia, Seizure, Sepsis Disposition DecisionAdmit )( Admission Accepts Yes )( Accept ed Time 1653 )( Accepted Date 01/29/22 Call Information will see patient, agrees with eval, agrees with plan Crit ical CareTime Spent (minutes): 80Services Performed P atient management by me, Time spent at bedside, Reviewi ng test results, Reviewing imaging, Discussing patient c are, Documentation in recordSeparately billable proce dures excluded from time.Patient was critically ill du e to:DKA, sepsisMy treatment and management were:IV fluid resuscitation, insulin drip, antibiotics, airway management, IV Ativan CC Note 1Total critical ca re time 80 minutes. Total critical care time documented couch s not include time spent on separately billed procedur es or the services of residents, students, nurses or physi janet assistants. I personally saw and examined the angel luis aguilar. I have reviewed all diagnostic interpretations and treatment plans as written. I was present for the ingram port ions of any proceduresperformed and the inclusive time noted in any critical care statement. Critical care time incl udes patient management by me, time spent at the [facility] ents bedside,time to review lab and imaging results, discussing patient care, documentation in the medical recor d, and time spent with the family or caregiver. Electronical ly Signed by Elisabet Waldron MD on 01/29/22 at 2218 Ad dendum 1: 01/29/22 2240 by Elisabet Waldron MD Patient RaryxlzjUbqkqrzp17/1/2022Intubation procedure note:Indication: Airway protection.Procedure per formed by me Procedure note: Timeout was completed verifyi ng correct patient, procedure, positioning and equipment av ailable with medications. Patient was preoxygenatedwith 100% oxygen through nonrebreather. The patient was placed in a flat position, sedation was obtained with 20 mg of et omidate and paralysis was obtained with 80 mg of succinylcho line. The glide scope technology Mac 3 blade was used and inserted into the oropharynx at which time there was a gr alexandra 1 viewof the vocal cords. A 7.0 [place] endotrachea l tube was inserted and visualized going through the vocal cords. The rigid stylette was removed. Colorimetric change was visualized on the CO2 meter. Breath sounds were heard in both lung morocho equally. The endotracheal tube was placed at 20 cm at the lips. Chest x-ray was ordered an d tube placement was verified. SignedElisabet Waldron MD, MPH at 2240 Addendum 2: 02/12/22 0811 by Kehinde Waldron MD Patient AddendumAddendum1 L of IV fluid given, f luid restriction due to acute hypoxia requiring intub ation. at 0811RPT #:[id number] OF REPORTEDEmerg ency department [id number]:45:[id number] vailable for patient [id number]:18:5 8 2022-01-29 [id number]:32:[id number] [facility] 15:32:00 [place] [id number] PATIENT NAME: DANIELE HINKLE ADMIT D ATE: 01/29/22ACCOUNT NO: [id number] ROOM NO: NC.IC 09 AGE: 71 REPORT TYPE: eELECTROCARDIOGRAM SEX: F ADMITTING PHYSICIAN:Fadumo Fay MD ATTENDING PHYSICIAN:Erasmo spann MD Order:[id number] Reason : DKA Test Date/T eduardo Stamp:Sat Jan 29 2022 15:32:29Blood Pressure : * / mmHGVent. Rate : 110 BPM Atrial Rate : 110 BPM P -R Int : 127 ms QRS Dur : 084 ms QT Int : 310 ms P-R-T Ax es : 083 073 265 degrees QTc Int : 420 ms Sinus tachycard iaBiatrial enlargementRepol abnrm, severe global ischemia ( LM/MVD) Confirmed by CECY HENDRICKS MD ([id number]) on 01/30/2022 7:31:25 AM Referred By: Erasmo Fay [facility] med by:CECY HENDRICKS MD at 0731 [facility] [address] [facility] [address] PATIENT NAME: DANIELE HINKLE .[id number] 25AVAvailab for patient [id number]:3 1:47 2021-12-22 [id number]:56:00 [facility] 12:56:00 [facility]. discharge summary repo rt #: [id number] report status: signed date: 12/22/21 t eduardo: 1256 patient: daniele hinkle unit #: [id number] room #: [id number] bed: 1 : 3 age: 71 sex: f attend: erasmo fay md adm dt: author: erasmo fay md attention edits and/or addenda must be made i n patient keeper for this note. edits and ammendments c reated in [facility] are not visible in patient keeper or the legal medical record (hpf). 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 - type 1 diabetes m ellitus with hyperglycemia - type 1 diabetes mellitus wi th ketoacidosis, uncontrolled - uti (urinary tract infection) discharge date:11/30/21 discharge diagnoses: - c ad (coronary artery disease) - chronic kidney disea se, stage 3a - diabetic visual loss: better eye: profound vision impairment; lesser eye:near-total vision impairm ent, with macular edema, with retinopathy, associatedwith type 1 diabetes mellitus - hypertension - mixed hyperli pidemia - overactive bladder - peripheral arterial disease - type 1 diabetes mellitus with diabetic chronic kidney d isease - type 1 diabetes mellitus with diabetic polyneuro chucho - type 1 diabetes mellitus with hyperglycemia - ty pe 1 diabetes mellitus with ketoacidosis, uncontrolle d - uti (urinary tract infection) -- hospital course -- hospital course: patietn with dm and freq episode of dka presented with weakness, urinaryfrequency and incontinence . she was again found to have dka. it resolvedquickly with insulin treatment. her urinalysis was not done. she wast reated empirically with abx for a suspected uti. she fe lt better and wasdcd home -- discharge medications -- allergies:codeine (intermediate - allergy)lisino pril (intermediate - allergy) discharge medications:p jairon refer to discharge medication list for a complete list of dischargemedicationsaspirin chewable tab (aspiri n chewable tab) 81 mg po bedtimeaspirin ec tab (ecotrin tab ) 81 mg po dailycefdinir cap (omnicef cap) 300 mg po q12h, disp: 10 capsule, refills: 0clopidogrel tab (plavix tab) 75 mg po dailydonepezil tab (aricept tab) 5 mg po bedtime ezetimibe tab (zetia tab) 10 mg po dailyinsulin (glargine) inj (lantus inj) 24 units subq qaminsulin lispro inj (humalog inj) 0 units subq ac hsisosorbide dinitrate tab (isordil tab) 5 mg po bid 9a 5p (hold if sbp<110)metoprol ol succinate xl tab (toprol xl tab) 25 mg po dailym etoprolol tartrate tab (lopressor tab) 12.5 mg po q12hr (h old if sbp<110,hr<60)midodrine tab 5 mg(proamatine tab 5mg) 5 mg po tid prn sbp<100 (take only if sbp<100)oxybuty cherri tab (ditropan tab) 5mg po tid, disp: 90 tablet, refi lls: 2ranolazine er tab (ranexa tab) 1000 mg po q12hr vitamin d3 tab (cholecalciferol tab) 8000 unit po qpm -- di akshat instructions -- pk discharge orders:dc order - n o ecqm 2019. details: details:order number: [id number] ategory: [facility] - pk discharge ordersorder status: transmit sarah beth details:discharge order: yesdischarge to: home/s elf carediet: diabeticactivity: resume normal activi typcp: alexus:erasmo fay mdpcp follow up timefr kulwinder: 1 weekadditional discharge routines: pcp follow-up ordered by: erasmo fay md nov 30, 2021 8:16ament ered by: erasmo fay md service date: nov 30, 2021 8:10am discharge w/instructions:[facility] - pk discharge ord ers erasmo fay md;alexus:erasmo fay md; pcp follow-up addtional discharge instructions:emerg ency instructions: the patient was instructed to pres ent to the [facility] or call 911 should t heir symptoms return or worsen.; signed in patientkee per by erasmo fay md on 12/22/21 at 12:58 joselyn ctronically signed by erasmo fay md on 12/22/21 at 1258attention edits and/or addenda must be ma de in patient keeper for this note. edits and ammen dments created in [employer] are not visible in patien t keeper or the legal medical record (hpf). rpt #: [id number] of report DSDischarge [id number]:56:[id number] 6AVAvailabl e for patient [id number]:59 :33 2021-12-22 [id number]:33:00 [facility]AT[facility] 12:33:00 [facility] ([facility]. discharge summary repo rt #: [id number] report status: signed date: 12/22/21 t eduardo: 1233 patient: daniele hinkle unit #: [id number] room #: nc.[id number] bed: 1 : 3 age: 71 sex: f attend: erasmo fay md adm dt: author: erasmo fay md attention edits and/or addenda must be made i n patient keeper for this note. edits and ammendments c reated in [employer] are not visible in patient keeper or the legal medical record (hpf). -- problems/procedures -- admissio n date:11/06/21 admitting diagnoses: - chf (conges tive heart failure) - diabetic keto-acidosis - hyperlipidem ia - hypomagnesemia - hypotension - non compliance w medication regimen - nstemi (non-st elevated myocardial inf arction) - severe protein-calorie malnutrition - type 1 tati betes mellitus with ketoacidosis without coma - vitami n d deficiency discharge date:11/09/21 discharge tati gnoses: - chf (congestive heart failure) - diabetic keto-a cidosis - hyperlipidemia - hypomagnesemia - hypotension - non compliance w medication regimen - nstemi (non-st elevated myocardial infarction) - severe protein-calorie malnutrition - type 1 diabetes mellitus with ket oacidosis without coma - vitamin d deficiency -- hospital course -- hospital course:patient with hx of dm and freq e pisodes of dka began feeling weak and nauseousyesterday, sh e had some nausea and vomiting,. she is dependent on her hu sbandto administer her medication and did not rememeber if she had been taking herinsulin as directed. she was foun d to have elevated troponin levels too,although she did no t have any chest pain . endocrine and cardiology was consul sarah beth she was started on insulin andheparin drips. tehe dka wa s corrected. her troponin trended down, she isknow n to have cad that is not ammenable to revascularization. she was then dcd home -- discharge medications -- allerg ies:codeine (intermediate - allergy)lisinopril (intermediate - allergy) discharge medications:please refer to discharge medication list for a complete list of dischargemedications aspirin chewable tab (aspirin chewable tab) 81 mg po bed timeaspirin ec tab (ecotrin tab) 81mg po daily, disp: 30 tab let, refills: 3clopidogrel tab (plavix tab) 75 mg po daily, disp: 30 tablets, refills: 3clopidogrel tab (shravan vix tab) 75mg po daily, disp: 30 tablet, refills: 3donepe zil tab (aricept tab) 5mg po bedtime, disp: 90 tablet, r efills: 0ezetimibe tab (zetia tab) 10mg po daily, disp: 30 tablet, refills: 3insulin (glargine) inj (lantus inj) 20 units subq qaminsulin lispro inj (humalog inj) 0 units subq ac hsinsulin lispro inj (humalog inj) subq ac hs (units)isosorbide dinitrate tab (isordil tab) 5m g po bid 9a 5p (hold if sbp<110),disp: 60 tablet, refills: 3 metoprolol succinate xl tab (toprol xl tab) 25 mg po dailym etoprolol tartrate tab (lopressor tab) 12.5mg po q12hr (ho ld if sbp<110,hr<60), disp: 60 tablet, refills: 3midod rine tab 5 mg(proamatine tab 5mg) 5mg po tid prn sbp<100 (t cici only ifsbp<100), disp: 90 tablet, refills: 3ranolazin e er tab (ranexa tab) 1000 mg po q12hr, disp: 180 tablets , refills:0ranolazine er tab (ranexa tab) 1000mg p o q12hr, disp: 120 tablet, refills: 3vitamin d3 tab (chol ecalciferol tab) 8000unit po qpm, disp: 90 tablet,refills: 0 -- discharge instructions -- admission orders:disch arge follow up:adt - admission orders nini doan md;kenneth gonzalez md; rusfr:petty doan; alafa:kenneth gonzalez md details:order number: [id number]: adt - admission ordersorder s tatus: transmitted details:consulting provider 1: rusfr:nini doan mdconsulting provider 1: .consulting provider 2: roya:kenneth gonzalez md ordered by: erasmo fay md nov 09, 2021 1:25pmen tered by: erasmo fay md service date: nov 09 1:24pm pk discharge orders:dc - ami 2021. no, myalgia; ej fraction >40%; yes; yes; ami details:statin at discharge: no, myalgiaej fraction - waldemar/arb/arni at dc: ej frac tion gt;40% if ejf lt;40%, aldosterone antagonist at dc:: no , not applicableaspirin at discharge: yesbeta-pilar at discharge: yes details:order number: [id number] tegory: pkdc - pk discharge ordersorder status: transmit sarah beth details:discharge order: yesdis[facility] carediet: diabeticactivity: as toleratedpcp: ranil:erasmo fay mdpcp follow up timefr kulwinder: in 1-2 weeksadditional discharge routines: pcp follow-u p ordered by: erasmo fay md nov 09, 2021 1:25pmen tered by: erasmo fay md service date: nov 09 1:24pm discharge w/instructions:[facility] - pk discharge ord ers erasmo fay md;in 1-2 weeks; rjocelynnmi:erasmo fay md; pcp follow-up addt ional discharge instructions:emergency instructions: t he patient was instructed to present to the [facility] y department or call 911 should their symptoms ret urn or worsen.; signed in patientkeeper by camilla fay md on 12/22/21 at 12:35 electronically signed by fadumo fay md on 12/22/21 at 1235attention edits and/or addenda must be ma de in patient keeper for this note. edits and ammen dments created in [facility] are not visible in patien t keeper or the legal medical record (hpf). rpt #: [id number] of report DSDischarge [id number]:33:[id number] 3AVAvailabl e for patient [id number]:36 :40 2021-12-07 [id number] [facility] 21:30:00 [facility] [place] [address] [facility] [address] [address] PATIENT NAME: DANIELE HINKLE ADMIT Sharlene ATE: 11/29/21ACCOUNT NO: [id number] ROOM NO: NC.610 3 AGE: 71 REPORT TYPE: 360 - QUERY RESPONSE DOCUMENT SEX: F ADMITTING PHYSICIAN:Erasmo Fay MD ATTENDING PHYSICIAN:Erasmo Fay MD Provider Query QUERY TEXT: Clarification Infectious Status 360MD Query rela sarah beth questions should be directed to: [facility] [employer] [facility] Query Helpline Based on your clinical j udgment, can you provide the known or suspected condition (s) that represent(s) the clinical indicators listed belo w? The following definitions are provided based on sumit stry literature and in collaboration with [facility] l [facility] for your reference only:--Localized Infect ion - An infection that affects only one organ or body pa rt (e.g., UTI, Pneumonia)--Bacteremia - Nonspecific labora tory finding of bacteria in the blood--Sepsis - A pre sumed or confirmed systemic response to infectious proces s with >2 clinical indicators such as: Temperature >38.3C or <36.0C, tachycardia, > 20 respiratory rate, WBC >12,000 or < 4,000 or > 10% bands--Severe Sepsis - Sepsis with damian tional clinical indicators such as Organ failure with a ny of the following: systolic BP < 90 or MAP < 65 or SBP d ecrease more 40 mm Hg from last recorded SBP considered normal for patient, Creatinine > 2.0, urine output < 0.5 ml /kg/hour for 2 hours, Bilirubin > 2 mg/dL, platelet count < 100,000, INR > 1.5, PTT > 60 sec, lactate > 2 mmol/L-- Septic Shock - Severe Sepsis with Lactic acid > 4 mmol/ L or persistent hypotension The patient's Clinical In dicators include:Patient became weak , family brought her to ER - H and P, 11/30WBC (4.5 - 11.0 10 3/uL) 3.3 L - ED PHYSICIAN RECORD 2Respiratory rate: 22 (17 - 22) - Endocrinology Progress Note 2Respirator y rate: 12 - RAPID INITIAL ASSESSMENT 2Creatinine (0.6 - 1.5 mg/dL) 1.8 H - ED PHYSICIAN RECORD 11/28/2021[facility] - Family Medicine Progress Note 2CefTRIAXone 1,0 00 mg Inj 08:25 1 MLS Intravenous HANDLTOptions provided:- - Sepsis, Please identify the causative organism if known. -- Severe Sepsis, Please identify the causative organism i f known.-- Severe Sepsis with septic shock, Please identify the causative organism if known.-- Localized infecti on, Please specify the infection and causative organism if known.-- Other - I will add my own diagnosis-- Dismiss - Not applicable / Not valid-- Dismiss - Clinically un able to determine / Unknown-- Assign to another provider QUERY RESPONSE: The patient has sepsis. unknown Query created by: Cindy Infante on 12/04/2021 1:46 AM at 2130 PATIENT NAME: DANIELE HINKLE MA noteNC.[id number] for patient [id number]:31:09 2021-11-30 [id number]:58:00 [facility], [place] 08:58:00 [facility] ([facility])Endocrinology Progress Note REPORT #: [id number] REPORT STATUS: Signed DATE: 11/30/21 TIME: 08 PATIENT: DANIELE HINKLE UNIT #: [id number] ROOM #: NC.6103 BED: 1 : 3 AGE: 71 SEX: F ATTEND: Erasmo Fay MD ADM DT: AUTHOR: Nini Doan MD ATTENTION EDITS and/or ADDENDA must be made i n Patient Keeper for this note. Edits and ammendments c reated in [facility] are not visible in Patient Keeper or the legal medical record (HPF). -- ASSESSMENT AND PLAN -- PROBLEMS : 1: Type 1 diabetes mellitus with hyperglycemiaA/P: UNCONTR OLLED (HGBA1C>14.0%,HYPERGLYCEMIA) TYPE I DM EXACERBAT ED BYUTI,NON-COMPLIANCE WITH INSULIN IMPROVED GLYCE ADIS CONTROL(CBJ=856 HSGLUCOSE=96). OBSERVE ON PRESEN T SQ BASAL/BOLUS INSULIN. MUST HAVE BEDTIMESNACK. -- SUBJECTIVE -- CHIEF COMPLAINT:HYPERGLYCEMIA HPI: EVENTS NOT ED: TOLERATING DIET. HAD A BEDTIME SNACK. WANTS TOGO HOME. -REVIEW OF SYSTEMS- GENERAL: Negative for feverR ESPIRATORY: Negative for dyspneaCARDIOVASCULAR: Negative for chest painGASTROINTESTINAL: Negative for abdominal tonia n or nausea. No emesis.ENDOCRINE: Negative for polydi psia, polyuria -- OBJECTIVE -- VITALS (11/29 08:58 - 0 11/30 08:58):Temperature C: 36.7 (36.3 - 37.0)Temperat ure source: OralPulse Rate 111 (81 - 111)Respiratory rate: 2 2 (17 - 22)BP: 164/91 (103/58 - 164/91) -EXAM- GENERAL: Well developed, THIN , in no apparent distress.HEAD: Normocephalic, atraumatic.NECK: trachea midline. CHEST: Grossly normal appearance.LUNGS: NORMAL CHEST WA LL MOVEMENTHEART: TACHYCARDIAABDOMEN: NON-DISTENDEDNEUROLOGICAL: NORMAL SPEECH PSYCHIA TRIC: Alert and oriented to time, person, place -- DATA -- M EDICATIONS DEXTROSE 16 GM PO ASDIR (PRN)INSULIN LISPRO 0 UN ITS SUBQ AC HSGLUCAGON 1 MG IM ASDIRINSULIN GLARGINE 24 UNIT S SUBQ QAMcefTRIAXone with/in SODIUM CHLORIDE 0.9% 1000 MG IV DAILYOXYBUTYNIN CHLORIDE 5 MG PO TID LABS GLU BE D (11/30/21 08:33)GLUBED 148 H GLU BED (11/29/21 21:33)GLUBE D 96 GLU BED (11/29/21 16:09)GLUBED 377 H GLU BED ( 11:17)GLUBED 162 H -- ATTESTATION -- TIME SPENT ON PATIENT CARE: - Direct 30 minutes CARE ACTIVITIES / CARE COORDINATION: - I have reviewed the history and repeated the ingram elements - I have seen and examined this patient - I have reviewed the progress in the clinical cou rse since the lastexamination - I have discussed the patie nt's condition with other members of the care team AD DITIONAL DETAIL:I HAVE SPENT 30 MINUTES IN THE EVALUATION AND TREATMENT OF THIS PATIENT. Signed in [facility] by Nini Doan MD on 11/30/21 at 09:06ATTENTION EDITS and/or ADDENDA must be m alexandra in Patient Keeper for this note. Edits and ammen dments created in [facility] are not visible in Patien t Keeper or the legal medical record ([facility]). RPT #: [id number] OF REPORT PRProgress [id number]:58:[id number] Available for patient [id number]:06:5 2 2021-11-30 [id number]:16:00 [facility] [place] 08:16:00 [place] ([facility])Med Order Sheet REPORT #: [id number] REPORT STATUS: Signed DATE: 11/30/21 TIME: 08 PATIENT : DANIELE HINKLE UNIT #: [id number] # : [id number] ROOM #: NC.6103 BED: 1 : 3 AGE: 71 SEX: F ATTEND: Erasmo Fay MD ADM DT: AUTHOR: Erasmo Fay MD ATTENTION EDITS and/or ADDENDA must be made i n Patient Keeper for this note. Edits and ammendments c reated in [facility] are not visible in Patient Keeper or the legal medical record ([facility]). Discharge Medication Reconciliatio n DISCHARGE MEDICATION LISTAspirin Chewable Tab (Aspirin Ashley wable Tab) Dose: 81 MG PO BEDTIMEAspirin EC Tab (Ecotrin Ta b) Dose: 81 MG PO DAILYClopidogrel Tab (Plavix Tab) Dose: 7 5 MG PO DAILYDonepezil Tab (Aricept Tab) Dose: 5 MG PO BEDTIMEEzetimibe Tab (Zetia Tab) Dose: 10 MG PO DAILYInsulin (Glargine) Inj (Lantus Inj) Dose: 2 4UNITS SUBQ QAMInsulin Lispro InJ (HumaLOG Inj) Dose: 0 UNIT S SUBQ AC HSIsosorbide Dinitrate Tab (Isordil Tab) Dose: 5 MG PO BID 9A 5P - Hold if SBP<110Metoprolol Succinate XL T ab (Toprol XL Tab) Dose: 25 MG PO DAILYMetoprolol Tartrate Tab (Lopressor Tab) Dose: 12.5 MG PO Q12HR - Hold if SBP<110, HR<60Midodrine Tab 5 mg(ProAmatine Tab 5mg) Dose : 5 MG PO TID PRN sbp<100 - Take only if SBP<100Ranolazine ER Tab (Ranexa Tab) Dose: 1000 MG PO [id number] D3 Ta b (Cholecalciferol Tab) Dose: 8000 UNIT PO QPMOxyb utynin Tab (Ditropan Tab) Dose: 5MG PO TID, Disp: 90 tablet , Refills: 2Hosp: Cefdinir Cap (Omnicef Cap) Dose: 300 MG P O Q12H, Disp: 10 capsule, Refills: 0 STOPPED HOSPITAL MEDICATIONSDc'd: cefTRIAXone Inj (Rocephin Inj) 1000MG IV DAILY X 7 dosesin SodiumChloride 0.9% (Nacl 0.9% ) 10ML Dc'd: Dextrose Chewable Tab (Glucose Chewable Ta b) 16GM PO ASDIR PRNhypoglycemia protocolDc'd: Glucagon Inj (Glucagon Inj) 1MG IM ASDIRDELETED HOME MEDICATIONSClopido grel Tab (Plavix Tab) 75 MG PO DAILYInsulin Lispro InJ (H umaLOG Inj)SUBQ AC HS (UNITS)Ranolazine ER Tab (Ranexa Tab) 1000 MG [id number] Signed in PatientKeeper by Erasmo Fay on11/30/21 08:10 Electronically S igned by Erasmo Fay MD on 11/30/21 at 0816ATTENTION EDITS and/or ADDENDA must be ma de in Patient Keeper for this note. Edits and ammen dments created in [employer] are not visible in Patien t Keeper or the legal medical record (HPF). RPT #: [id number] OF REPORT CLClinical [id number]:16:[id number] Available for patient [id number]:16:3 9 2021-11-30 [id number]:06:00 [facility] [place] 08:06:00 [place] ([facility])Family Medicine Progress Note REPO RT #: [id number] REPORT STATUS: Signed DATE: 11/30/21 T EDUARDO: 805 PATIENT: DANIELE HINKLE UNIT #: [id number] ROOM #: NC.6103 BED: 1 : 3 AGE: 71 SEX: F ATTEND: Erasmo Fay MD ADM DT: AUTHOR: Erasmo Fay MD ATTENTION EDITS and/or ADDENDA must be made i n Patient Keeper for this note. Edits and ammendments c reated in [facility] are not visible in Patient Keeper or the legal medical record (HPF). -- ASSESSMENT AND PLAN -- PROBLEMS : 1: Type 1 diabetes mellitus with ketoacidosis, uncontrolle dA/P: likely due to missing medications endocrine cons ultaotn DC home today 2: Type 1 diabetes mellitus with diab etic chronic kidney disease 3: Type 1 diabetes mellit us with diabetic polyneuropathy 4: Diabetic visual loss: better eye: profound vision impairment; lesser eye:near -total vision impairment, with macular edema, with reti nopathy, associatedwith type 1 diabetes mellitus 5: Mixed hyperlipidemia 6: Hypertension 7: CAD (coronary artery disease) 8: Peripheral arterial disease 9: Chron ic kidney disease, stage 3aA/P: due to DM 10: UTI (urinary tract infection)A/P: cultures < [id number] home on cady rt course oral cefdnir 11: Overactive bladderA/P: continue oxybutinin at DC -- SUBJECTIVE -- HPI:feeling better waqnt to go home urinating less freq cultures reviewed -REVIEW OF SYSTEMS- GENERAL: Negative for fever, chills, unexplained weight loss, and fatigueRESPIRATORY: Negative for short ness of breath, cough, chest congestion, wheezing, hemop tysis, and pleuritic painCARDIOVASCULAR: Negative for chest pain, palpitations, dyspnea on exertion, orthopnea, ed venancio and dizzinessGASTROINTESTINAL: Negative for abdomina l pain, nausea, vomiting, diarrhea, constipation, and anorexiaGENITOURINARY: Negative for dysuria, No gross hematuria.SKIN: Negative for rashes. No pruritus . -- OBJECTIVE -- VITALS (11/29 08:06 - 11/30 08:06): Temperature C: 36.7 (36.3 - 37.0)Temperature source: OralPul se Rate 111 (81 - 111)Respiratory rate: 22 (17 - 22)BP: 164/ 91 (103/58 - 164/91) -EXAM- GENERAL: Well developed, well n ourished, in no apparent distress.NECK: No masses, no thyr omegaly, no abnormal cervical nodes, trachea midline.LUNGS: Respirations unlabored, clear to auscultation bi laterally, no wheezing, no ronchi, no ralesHEART: Regular r ate and rhythm, normal S1, S2, no murmurs, no rubs, no g allops, no clicks.ABDOMEN: + BS soft, flat, nontender, the liver and spleen are not palpable, no palpable masses, no herniasEXTREMITIES: No clubbing, cyanosis or edemaNEUROLOGICAL: Alert and oriented to person, place, and time. no facial asymmetry, normal speech. Moves all extremities symmetrically, normal tone,PULSES: N ormal carotid pulses without bruits. Normal pulses delmy aterally at radial, dorsalis pedis and posterior tibial loca tions.SKIN: No pallor, no jaundice, no rash, normal turgorLY MPH NODES: None palpable cervical, axillary, supraclavicula r or inguinal locationsPSYCHIATRIC: Mood euthymic. Af fect congruent, Normal eye contact, normal speech. th ought process and thought content intact. -- DATA -- M EDICATIONS DEXTROSE 16 GM PO ASDIR (PRN)INSULIN LISPRO 0 UN ITS SUBQ AC HSGLUCAGON 1 MG IM ASDIRINSULIN GLARGINE 24 UNIT S SUBQ QAMcefTRIAXone with/in SODIUM CHLORIDE 0.9% 1000 MG IV DAILYOXYBUTYNIN CHLORIDE 5 MG PO TID LABS GLU BE D (11/29/21 21:33)GLUBED 96 GLU BED (11/29/21 16:09)GLUBED 3 77 H GLU BED (11/29/21 11:17)GLUBED 162 H GLU BED ( 08:34)GLUBED 36 *L Signed in PatientKeeper by Erasmo Cobos MD on 11/30/21 at 08:08 at 0808ATTENTION EDITS and/or ADDENDA must be ma de in Patient Keeper for this note. Edits and ammen dments created in [employer] are not visible in Patien t Keeper or the legal medical record (HPF). RPT #: [id number] OF REPORT PRProgress [id number]:06:[id number] Available for patient [id number]:08:5 9 2021-11-30 [id number]:50:00 [facility] [place] 06:50:00 [facility] ([facility])Family Med. History PhysicalREPORT #: [id number] REPORT STATUS: Signed DATE: 11/30/21 T EDUARDO: 0650 PATIENT: DANIELE HINKLE UNIT #: [id number] ROOM #: NC.6103 BED: 1 : 3 AGE: 71 SEX: F ATTEND: Erasmo Fay MD ADM DT: AUTHOR: Erasmo Fay MD ATTENTION EDITS and/or ADDENDA must be made i n Patient Keeper for this note. Edits and ammendments c reated in [facility] are not visible in Patient Keeper or the legal medical record (HPF). -- HISTORY -- ADMISSION DATE:11-29 PRIMARY CARE PROVIDER:Erasmo Fay MD IEF COMPLAINT:weak HPI:patient became weak , family brought her to ER< patient states that she has been taking h er insulin, daughter helping, has had urinary freq and incon t too feeling better this morning PAST MEDICAL HISTORY :DM type 1, HTN, CAD, myocardial infarction , neuropathy, retinopathy,hyperlipidemia, PAST SURGICAL HISTORY:hysterectomy, retinal surgery bilaterall y, -SOCIAL HISTORY- -TOBACCO USE- DETAILS/COMMENTS:former -VAPING/INHALED SOLVENTS- DETAILS/COMMENTS:none -ALCOHOL USE- DETAILS/COMMENTS:none -DRUG USE- DETAILS/CO MMENTS:none -- ALLERGIES/HOME MEDS -- ALLERGIES:codeine (Int ermediate - Allergy)lisinopril (Intermediate - Allergy) HOME MEDICATIONS:Aspirin Chewable Tab (Aspirin Chewab le Tab) 81 MG PO BEDTIMEAspirin EC Tab (Ecotrin Tab) 81 MG PO DAILYClopidogrel Tab (Plavix Tab) 75 MG PO DAILY Clopidogrel Tab (Plavix Tab) 75 MG PO DAILYDonepezil Tab (Ar icept Tab) 5 MG PO BEDTIMEEzetimibe Tab (Zetia Tab) 10 MG P O DAILYInsulin (Glargine) Inj (Lantus Inj) 20 UNIT S SUBQ QAMInsulin Lispro InJ (HumaLOG Inj) SUBQ AC HSIn sulin Lispro InJ (HumaLOG Inj) 0 UNITS SUBQ AC HSIsoso rbide Dinitrate Tab (Isordil Tab) 5 MG PO BID 9A 5PMet oprolol Succinate XL Tab (Toprol XL Tab) 25 MG PO DAILYM etoprolol Tartrate Tab (Lopressor Tab) 12.5 MG PO [id number] odrine Tab 5 mg(ProAmatine Tab 5mg) 5 MG PO TIDRanolazine E R Tab (Ranexa Tab) 1000 MG PO [id number] ER Tab ( Ranexa Tab) 1000 MG PO H93RHRgiazgc D3 Tab (Cholecalciferol Tab) 8000 UNIT PO QPM -- SUBJECTIVE -- -REVIEW OF SYSTEMS- GENERAL: Negative for fever, chills, unexplained weight l oss, and fatigueRESPIRATORY: Negative for shortness of br eath, cough, chest congestion, wheezing, hemoptysis, a nd pleuritic painCARDIOVASCULAR: Negative for chest pain, palpitations, dyspnea on exertion, orthopnea, ed venancio and dizzinessGASTROINTESTINAL: Negative for abdomina l pain, nausea, vomiting, diarrhea, constipation, and anorexiaGENITOURINARY: Negative for dysuria, No gross hematuria.SKIN: Negative for rashes. No pruritus . -- OBJECTIVE -- VITALS (11/29 06:50 - 11/30 06:50): Temperature C: 36.7 (36.3 - 37.0)Temperature source: OralPul se Rate 105 (76 - 105)Respiratory rate: 18 (17 - 20)BP: 136 /73 (103/58 - 143/83) -EXAM- GENERAL: Well developed, well n ourished, in no apparent distress.NECK: No masses, no thyr omegaly, no abnormal cervical nodes, trachea midline.LUNGS: Respirations unlabored, clear to auscultation bi laterally, no wheezing, no ronchi, no rales HEART: Regular rate and rhythm, normal S1, S2, no murmurs, no rubs, no g allops, no clicks.ABDOMEN: + BS soft, flat, nontender, the liver and spleen are not palpable, no palpable masses, no herniasEXTREMITIES: No clubbing, cyanosis or edemaNEUROLOGICAL: Alert and oriented to person, place, and time. no facial asymmetry, normal speech. Moves all extremities symmetrically, normal tone,PULSES: N ormal carotid pulses without bruits. Normal pulses delmy aterally at radial, dorsalis pedis and posterior tibial loca tions.SKIN: No pallor, no jaundice, no rash, normal turgorLY MPH NODES: None palpable cervical, axillary, supraclavicula r or inguinal locationsPSYCHIATRIC: Mood euthymic. Af fect congruent, Normal eye contact, normal speech. th ought process and thought content intact. -- DATA -- L ABS GLU BED (11/29/21 21:33)GLUBED 96 GLU BED (11/29/21 16:0 9)GLUBED 377 H GLU BED (11/29/21 11:17)GLUBED 162 H GLU BED (11/29/21 08:34)GLUBED 36 *L -- ASSESSMENT AND P RODRÍGUEZ -- PROBLEMS: 1: Type 1 diabetes mellitus with ketoa cidosis, uncontrolledA/P: likely due to missing medicatio ns or acute infection endocrine consultaotn 2: Type 1 diabet es mellitus with diabetic chronic kidney disease 3: Type 1 d iabetes mellitus with diabetic polyneuropathy 4: Diabeti c visual loss: better eye: profound vision impairment; le sser eye:near-total vision impairment, with macular e zaki, with retinopathy, associatedwith type 1 diabetes yuliet itus 5: Mixed hyperlipidemia 6: Hypertension 7: CAD (cor onary artery disease) 8: Peripheral arterial disease 9 : Chronic kidney disease, stage 3a A/P: due to DM 10: UTI (urinary tract infection)A/P: ceftriaxonefollow cultureox ybutinin Signed in PatientKeeper by Erasmo Fay MD on 11/30/21 at 06:53 at 0653ATTENTION EDITS and/or ADDENDA must be ma de in Patient Keeper for this note. Edits and ammen dments created in [employer] are not visible in Patie nt Keeper or the legal medical record (HPF). [facility] #: [id number] OF REPORT HPHistory and physical [id number]:50:[id number] lable for patient [id number] 6:54:16 2021-11-29 [id number]:11:00 [facility] [place] 09:11:00 [place] ([facility])Endocrinology Progress Note REPORT #: [id number] REPORT STATUS: Signed DATE: 11/29/21 T EDUARDO: 0911 PATIENT: DANIELE HINKLE UNIT #: [id number] ROOM #: NC.108 BED: 1 : 52 AGE: 71 SEX: F ATTEND: Erasmo Fay MD ADM DT: 0 11/29/21 AUTHOR: Nini Doan MD ATTENTION EDITS and/or ADDENDA must be made i n Patient Keeper for this note. Edits and ammendments c reated in [facility] are not visible in Patient Keeper or the legal medical record (HPF). -- ASSESSMENT AND PLAN -- PROBLEMS : 1: Type 1 diabetes mellitus with hyperglycemiaA/P: UNCONTR OLLED (HGBA1C>14.0%,HYPERGLYCEMIA) TYPE I DM EXACERBAT ED BYUTI,NON-COMPLIANCE WITH INSULIN WITH AM HYPOGL YCEMIA (FBS=36,70 ATGERJCYH=796). OBSERVE ON REVISED SQ BASAL/BOLUS INSULIN. MUST HAVE BEDTIMESNACK. DIS CUSSED WITH NURSE. -- SUBJECTIVE -- CHIEF COMPLAINT:HYPERGLY CEMIA HPI: EVENTS NOTED: HUNGRY. WANTS TO HAVE BREAKFAST. - REVIEW OF SYSTEMS- GENERAL: Negative for feverRESPIRATORY: Negative for dyspneaCARDIOVASCULAR: Negative for chest painGASTROINTESTINAL: Negative for abdominal tonia n or nausea. No emesis.ENDOCRINE: Negative for polydi psia, polyuria -- OBJECTIVE -- VITALS (11/28 09:11 - 0 11/29 09:11):Temperature F: 97.9Temperature C: 36.4 (3 6.4 - 36.6)Temperature source: OralPulse Rate 76 (76 - 80)Respiratory rate: 20 (12 - 20)BP: 128/70 (128 /70 - 153/82)Blood pressure source: Non-invasive monit or -EXAM- GENERAL: Well developed, THIN , in no apparent distress.HEAD: Normocephalic, atraumatic.NECK: trachea midline.CHEST: Grossly normal appearance.LUNGS: NORMAL CHEST WALL MOVEMENTHEART: NO TACHYCARDIAABDOMEN: NON-DISTENDED NEUROLOGICAL: NORMAL SPEECHPSYCHIA TRIC: Alert and oriented to time, person, place -- DATA -- M EDICATIONS DEXTROSE 16 GM PO ASDIR (PRN)INSULIN LISPRO 0 UN ITS SUBQ AC HSGLUCAGON 1 MG IM ASDIRINSULIN GLARGINE 24 UNIT S SUBQ QAMcefTRIAXone with/in SODIUM CHLORIDE 0.9% 1000 MG IV DAILYOXYBUTYNIN CHLORIDE 5 MG PO TID LABS GLU BE D (11/29/21 08:34)GLUBED 36 *L GLU BED (11/29/21 05:25)GLUBE D 70 GLU BED (11/28/21 21:38)GLUBED 299 H COVID 19 INH AG (11/28/21 17:37)COVID 19 INHOUSE AG NEGATIVE GLU BED (10/31 05/22 17:37)GLUBED 280 H HGBA1C - GLYCOSYLATED HGB ( 17:35)GLYCOSYLATED HEMOGLOBIN (HA1C) > 14.0 H GL U BED (11/28/21 14:53)GLUBED 380 H UA RFLX MICR amp;C ULT IF INDICATED (11/28/21 14:15)UA COLOR STRAWUA APPEA AQUILES Slightly-CloudyUA GLUCOSE DIPSTICK 3+ NATHALIE BILIRU BIN DIPSTICK NEGATIVEUA KETONE DIPSTICK 1+ NATHALIE SPECI FIC GRAVITY 1.025UA BLOOD DIPSTICK TRACE NATHALIE PH DIPSTICK 5.0 UA PROTEIN DIPSTICK NEGATIVEUA UROBILINOGEN DIPSTICK NEGATI VEUA NITRITE DIPSTICK NEGATIVEUA LEUKOCYTE ESTERASE D IPSTICK 3+ NATHALIE MICROSCOPIC NEEDED? YES NATHALIE WBC 51-100 NATHALIE RBC 3-5 NATHALIE BACTERIA RAREUA SQUAMOUS CELLS FewUA MUCUS OCCAS IONAL GLU BED (11/28/21 14:00)GLUBED 480 *H ISTAT BLOOD G VENOUS (11/28/21 12:31)IONIZED CALCIUM 1.12VENOUS BLOOD GAS PH 7.34VENOUS BLOOD GAS PCO2 42VENOUS BLOOD GAS PO2 64 HVBG HCO3 22 LVBG BASE EXCESS -3VENOUS BLOOD GAS O2 S AT 91 HTOTAL CO2 CONTENT 24.0HEMOGLOBIN POC 11.2 LHEMA TOCRIT POC 33.0 LSODIUM POC 134 LPOTASSIUM POC 4.8GLUCOSE P OC > 625 *H CBC W/AUTO DIFF (11/28/21 12:17)WHITE BLOOD CELL 3.3L LRED BLOOD CELL 3.45 LHEMOGLOBIN 10.7L LHEMATOCRIT 31 .6L LMEAN CELL VOLUME 92MEAN CELL HGB 31.0MEAN CELL HGB CONCENTRATION 33.9RED CELL DISTRIBUTION WIDTH 13 .7PLATELET COUNT 235MEAN PLATELET VOLUME 11.6NEUTROPHIL % 5 3.1IMMATURE GRANULOCYTE % 0.3LYMPHOCYTE % 33.1MONOCYTE % 10. 8EOSINOPHIL % 1.8BASOPHIL % 0.9NUCLEATED RBC % 0.0NEUTROPHIL # 1.76IMMATURE GRANULOCYTE # 0.010LYMPHOCYTE # 1.1 0 LMONOCYTE # 0.36EOSINOPHIL # 0.06BASOPHIL # 0.03NUCLEATED RBC # 0.000 BNP (11/28/21 12:17)B-TYPE NATRIURETIC PEP TIDE 197 H LACTIC ACID (11/28/21 12:17)LACTIC ACID 1.0 LIVE R FUNCTION PANEL (11/28/21 12:17)TOTAL PROTEIN 7.8ALBUMIN 3 .4GLOBULIN 4.4 HBILIRUBIN TOTAL 0.5BILIRUBIN DIRECT < 0. 1BILIRUBIN INDIRECT 0.4SGOT/AST 35SGPT/ALT 34ALKALINE PHOSP HATASE 109 ACETNQL (11/28/21 12:17)ACETONE QUAL SMALL H MAG (11/28/21 12:17)MAGNESIUM 2.1 BASIC METABOLIC PANEL (11/28 12:17)SODIUM 132L LPOTASSIUM 5.2H HCHLORIDE 100 CARBON DIOXIDE 20L LANION GAP 17.2 HGLUCOSE 671*H *HBLO OD UREA NITROGEN 27H HGLOMERULAR FILTRATION RATE 36 LCR EATININE 1.8D H D HBUN/CREATININE RATIO 15.0CALCIUM 8.9 T ROP-I HIGH SEN (11/28/21 12:17)TROP-I HIGH SENSITIVITY 44 L IPID PROFILE (CORONARY RISK) (11/28/21 12:00)TRIGLYCE RIDES 269 HCHOLESTEROL 303 HCHOLESTEROL/HDL RATIO 5HDL CHO LESTEROL 67 HLIPOPROTEIN LDL 178 H GLU BED (11/28/21 11:53) GLUBED 531 *H -- ATTESTATION -- TIME SPENT ON PATIENT CARE: - Direct 30 minutes CARE ACTIVITIES / CARE COORDINATION: - I have reviewed the history and repeated the ingram elemen ts - I have seen and examined this patient - I have reviewed the progress in the clinical course since the lastex amination - I have discussed the patient's condition with ot her members of the care team ADDITIONAL DETAIL:I HAVE SPENT 30 MINUTES IN THE EVALUATION AND TREATMENT OF THIS PATIENT. Signed in PatientKeeper by Nini Doan MD on 05/22 at 09:14 at 0914ATTENTION EDITS and/or ADDENDA must be ma de in Patient Keeper for this note. Edits and ammen dments created in [facility] are not visible in Patien t Keeper or the legal medical record ([facility]). RPT #: [id number] OF REPORT PRProgress [id number]:11:[id number] Available for patient [id number]:14:5 5 2021-11-28 [id number]:07:00 [facility] [place] 18:07:00 [facility] ([facility])Endocrinology Consultation REPORT #: [id number] REPORT STATUS: Signed DATE: 11/28/21 T EDUARDO: 1807 PATIENT: DANIELE HINKLE UNIT #: [id number] ROOM #: NC.108 BED: 1 : 3 AGE: 71 SEX: F ATTEND: Erasmo Fay MD ADM DT: AUTHOR: Nini Doan MD ATTENTION EDITS and/or ADDENDA must be made i n Patient Keeper for this note. Edits and ammendments c reated in [facility] are not visible in Patient Keeper o r the legal medical record ([facility]). -- ASSESSMENT AND PLAN -- PROBLEMS : 1: Type 1 diabetes mellitus with hyperglycemiaA/P: UNCONTR OLLED (HGBA1C>14.0%,HYPERGLYCEMIA) TYPE I DM EXACERBAT ED BYUTI,NON-COMPLIANCE WITH INSULIN. OBSERVE ON SQ BASAL/BOLUS INSULIN. THANK YOU.WILL FOLLOW WITH YOU. -- HISTORY -- CONSULT REQUESTED BY:YOVANA Lambert REASON FOR CONSULT:HYPERGLYCEMIA CHIEF COMPLAINT:HYPERG LYCEMIA HPI:PATIENT ADMITTED WITH HYPERGLYCEMIA. SHE COUCH S NOT REMEMBER IF SHE TOOK HERINSULIN. SHE DENIES NAUS EA, VOMITING OR ABDOMINAL PAIN. SHE DENIES DYSURIA. PAST MEDICAL HISTORY:DM type 1, HTN, CAD, myocardial infarction , neuropathy, retinopathy,hyperlipidemia, PAST S URGICAL HISTORY:hysterectomy, retinal surgery bilaterall y, -SOCIAL HISTORY- -TOBACCO USE- DETAILS/COMMENTS:former -VAPING/INHALED SOLVENTS- DETAILS/COMMENTS:none -ALCOHOL USE- DETAILS/COMMENTS:none -DRUG USE- DETAILS/CO MMENTS:none -- ALLERGIES/HOME MEDS -- ALLERGIES:codeine (Int ermediate - Allergy)lisinopril (Intermediate - Allergy) HOME MEDICATIONS COMMENTS:LANTUS 20 UNITS QAM SS SARA LOG -- SUBJECTIVE -- -REVIEW OF SYSTEMS- GENERAL: Negat mirtha for feverRESPIRATORY: Negative for dyspneaCARDIOVASC ULAR: Negative for chest painGASTROINTESTINAL: Negativ e for abdominal pain or nausea. No emesis.ENDOCRINE: N egative for polydipsia, polyuria -- OBJECTIVE -- VITALS ( 18:08 - 11/28 18:08):Temperature F: 97.9Temperature sour ce: OralPulse Rate 79Respiratory rate: 12BP: 140/79B lood pressure source: Monitor -EXAM- GENERAL: Well de veloped, THIN , in no apparent distress.HEAD: Normocephal ic, atraumatic.NECK: trachea midline.CHEST: Grossly normal appearance.LUNGS: NORMAL CHEST WALL MOVEMENTHEAR T: NO TACHYCARDIAABDOMEN: NON-DISTENDEDNEUROLOGICAL: N ORMAL SPEECHPSYCHIATRIC: Alert and oriented to time, p erson, place -- DATA -- MEDICATIONS DEXTROSE 16 GM PO A SDIR (PRN)INSULIN LISPRO 0 UNITS SUBQ AC HSGLUCAGON 1 MG IM ASDIRINSULIN GLARGINE 24 UNITS SUBQ QAM LABS GLU BED (11/28/21 17:37)GLUBED 280 H GLU BED (11/28/21 1 4:53)GLUBED 380 H UA RFLX MICR amp;CULT IF INDICATED ( 14:15)UA COLOR STRAWUA APPEARANCE Slightly-CloudyUA GLUCO SE DIPSTICK 3+ NATHALIE BILIRUBIN DIPSTICK NEGATIVEUA KETONE DIPS TICK 1+ NATHALIE SPECIFIC GRAVITY 1.025UA BLOOD DIPSTICK TRACE HU A PH DIPSTICK 5.0UA PROTEIN DIPSTICK NEGATIVEUA UROBI LINOGEN DIPSTICK NEGATIVEUA NITRITE DIPSTICK NEGATIVEUA LEUKOCYTE ESTERASE DIPSTICK 3+ NATHALIE MICROSCOPIC NEEDED? YES NATHALIE WBC 51-100 NATHALIE RBC 3-5 NATHALIE BACTERIA RAREUA SQUAMOUS CELLS FewUA MUCUS OCCASIONAL GLU BED (11/28/21 14:00)GLUBED 480 *H ISTAT BLOOD GAS VENOUS (11/28/21 12:31)IONIZED C ALCIUM 1.12VENOUS BLOOD GAS PH 7.34VENOUS BLOOD GAS PCO 2 42VENOUS BLOOD GAS PO2 64 HVBG HCO3 22 LVBG BASE EXCESS - 3VENOUS BLOOD GAS O2 SAT 91 HTOTAL CO2 CONTENT 24.0HEMOG LOBIN POC 11.2 LHEMATOCRIT POC 33.0 LSODIUM POC 134 LPOTAS SIUM POC 4.8GLUCOSE POC > 625 *H CBC W/AUTO DIFF ( 2 12:17)WHITE BLOOD CELL 3.3L LRED BLOOD CELL 3.45 LHEMOGLOBIN 10.7L LHEMATOCRIT 31.6L LMEAN CELL V OLUME 92MEAN CELL HGB 31.0MEAN CELL HGB CONCENTRATION 33.9RED CELL DISTRIBUTION WIDTH 13.7PLATELET COUNT 235ME AN PLATELET VOLUME 11.6NEUTROPHIL % 53.1IMMATURE GRANULOCYTE % 0.3LYMPHOCYTE % 33.1 MONOCYTE % 10.8EOSINOPHIL % 1.8BASOPHIL % 0.9NUCLEATED RBC % 0.0NEUTROPHIL # 1.76IMMATURE GRANULOCYTE # 0.010LYMPHOCYTE # 1.1 0 LMONOCYTE # 0.36EOSINOPHIL # 0.06BASOPHIL # 0.03NUCLEATED RBC # 0.000 BNP (11/28/21 12:17)B-TYPE NATRIURETIC PEPTIDE 1 97 H LACTIC ACID (11/28/21 12:17)LACTIC ACID 1.0 LIVER FUNCT ION PANEL (11/28/21 12:17)TOTAL PROTEIN 7.8ALBUMIN 3.4GLOB ULIN 4.4 HBILIRUBIN TOTAL 0.5BILIRUBIN DIRECT < 0.1BILIR UBIN INDIRECT 0.4SGOT/AST 35SGPT/ALT 34ALKALINE PHOSP HATASE 109 ACETNQL (11/28/21 12:17)ACETONE QUAL SMALL H MAG (11/28/21 12:17)MAGNESIUM 2.1 BASIC METABOLIC PANEL (11/28 12:17)SODIUM 132L LPOTASSIUM 5.2H HCHLORIDE 100 CARBON DIOXIDE 20L LANION GAP 17.2 HGLUCOSE 671*H *HBLO OD UREA NITROGEN 27H HGLOMERULAR FILTRATION RATE 36 LCR EATININE 1.8D H D HBUN/CREATININE RATIO 15.0CALCIUM 8.9 T ROP-I HIGH SEN (11/28/21 12:17)TROP-I HIGH SENSITIVITY 44 G WILMAN BED (11/28/21 11:53)GLUBED 531 *H -- ATTESTATION -- TIME SPENT ON PATIENT CARE: - Direct 50 minutes CARE ACTIVI TIES / CARE COORDINATION: - I have reviewed the history and repeated the nigram elements - I have seen and examined this patient - I have discussed the patient's condition with ot her members of the care team ADDITIONAL DETAIL:I HAVE SPENT >50 MINUTES IN THE EVALUATION AND TREATMENT OF THIS PATIENT. Signed in PatientKeeper by Nini Doan MD on 05/22 at 09:10 at 0910ATTENTION EDITS and/or ADDENDA must be ma de in Patient Keeper for this note. Edits and ammen dments created in [facility] are not visible in Patien t Keeper or the legal medical record (HPF). [facility] #: [id number] OF [id number]:07:00NC.[id number]- [id number] for patient [id number]:11:05 2021-11-28 [id number]:05:[id number] [facility] 13:05:00 [place] [id number] PATIENT NAME: DANIELE HINKLE ADMIT D ATE: 11/29/21ACCOUNT NO: [id number] ROOM NO: [facility] AGE: 71 REPORT TYPE: eELECTROCARDIOGRAM SEX: F ADMITTING PHYSICIAN:Fadumo Fay MD ATTENDING PHYSICIAN:Erasmo spann MD Order:[id number] Reason : Test Date/Time Stamp:Mellen Nov 28 2021 13:05:48Blood Pressure : / mmH GVent. Rate : 080 BPM Atrial Rate : 077 BPM P-R Int : 118 ms QRS Dur : 077 ms QT Int : 386 ms P-R-T Axes : 071 058 044 degrees QTc Int : 446 ms Sinus rhythm Confirmed by Camilla Ferro John ([id number]) on 11/29/2021 7:24:01 AM Referred By: Self Referred Confirmed by:Bal Ferro MD Electronically Sign ed by Bal Ferro MD on 11/29/21 at 0724 [place] [id number] PATIENT NAME: DANIELE HINKLE .[id number] 43AVAvailab le for patient [id number]:3 2:10 2021-11-28 [id number]:09:00 [facility] 12:09:00 [facility])EMERGENCY PROVIDER REPORTREPORT#:[id number] REPORT STATUS: SignedDAT E:11/28/21 TIME: 1209 PATIENT: DANIELE HINKLE UNIT #: [id number]#: [id number] ROOM: BED:AGE: 71 SEX: F PCP PHYS: Erasmo Fay MDSERVICE DT: 10/31 05/22 AUTHOR: Daniel Díaz MD * ALL edits or amendment s must be made on the electronic/computer document * HPI-G eneral Illness Free Text HPI NotesFree Text HPI Notes71 -year-old female history of blindness, hypertension, diabe susan, previous OR status post stent was brought in by family for evaluation of generalized body cramping. Patient was found to be hyperglycemic by EMS, with blood sugar mor e than 600. Patient denies any active chest pain, abdominal pain, nausea or vomiting. Denies any recent sickness. Denies any fever or chills, or diarrhea. Past medical histo ry hypertension, diabetes, previous OR Past surgica l history cardiac stent REVIEW OF SYSTEMS Constitutional: no fever, no chills; + tremblingEyes:+ blindnessENT: no so re throat, no change in voicesCV: no chest pain or palpitat ionResp: no cough, no SOBGI: no vomitting, no diarrheaGU: no dysuria, no abnormal genital dischargeMSK: no extremity p ainSkin: no rash, no lacerationHeme: no brusing, no recent w eight lossNeuro: no weakness, no change in mentation P HYSICAL EXAM Constitutional: Awake, alert, oriented, NAD Psych: nl judgement, linear thoughtsSkin: nl color, W/D/IE yes: blindnessResp: no wheezing or stridor, no ralesC V: nl rate, regular rhythm, no murmursAbd: soft, no TTP, no rebounce or guardingMSK: FROM UE and LE BLNeurologic: intact motor and sensory, 5/5 strength UEs and LEs GeneralInitial Greet Date/Time 11/28/21 1143 PresentationChief Compla int __ (BODY TREMBLE)Hx Obtained From Patient, Caretake rSudden in Onset? NoOnset Occurred TodaySymptom Duration Wa xes and wanesProgression since Onset Intermittent Review of Systems ROS StatementsComplete sys rev neg except as mar ked. Past Medical History - AdultStated Complaint HIGH BLO OD SUGARAllergiesCoded Allergies:codeine (Intermedi ate, RASH-HIVES 08/10/20)lisinopril (Intermediate, RA SH-RAISED 08/10/20) Home MedicationsActive ScriptsRanolazi ne Er (Ranexa) 1,000 MG PO Q12HR Ranolazine Er (Ranexa ) 1,000 MG PO Q12HR #180 TAB Prov: 08/12/20Cholecalciferol (Vitamin D3) (Vitamin D3) 8,000 UNIT PO QPM Cholecalcifer ol (Vitamin D3) (Vitamin D3) 8,000 UNIT PO QPM #90 TAB Prov: 11/09/21Donepezil (Aricept) 5 MG PO BEDTIME Done pezil (Aricept) 5 MG PO BEDTIME #90 TAB Prov: 11/09/21 Clopidogrel Bisulfate (Plavix) 75 MG PO DAILY Clopidogrel Bi sulfate (Plavix) 75 MG PO DAILY #30 TAB Ref 3 Prov: 04/09/21Clopidogrel Bisulfate (Plavix) 75 MG PO DAILY Clopidogrel Bisulfate (Plavix) 75 MG PO DAILY #3 0 TAB Ref 3 Prov: 11/09/21Metoprolol Tartrate (Lopressor) 12 .5 MG PO Q12HR Metoprolol Tartrate (Lopressor) 12.5 MG PO Q12HR #60 TAB Ref 3 Prov: 11/09/21Ezetimibe (Zetia) 10 MG PO DAILY Ezetimibe (Zetia) 10 MG PO DAILY #30 TAB Ref 3 P rov: 11/09/21Aspirin Ec 81 MG PO DAILY Aspirin Ec 81 MG PO DAILY #30 TAB Ref 3 Prov: 11/09/21Ranolazine Er (Ranex a) 1,000 MG PO Q12HR Ranolazine Er (Ranexa) 1,000 MG PO Q12H R #120 TAB Ref 3 Prov: 11/09/21Isosorbide Dinitrate (Isordi l) 5 MG PO BID 9A 5P Isosorbide Dinitrate (Isordil) 5 MG P O BID 9A 5P #60 TAB Ref 3 Prov: 11/09/21Midodrine (Proamatin e) 5 MG PO TID PRN sbp<100 Midodrine (Proamatine) 5 MG PO T ID PRN sbp<100 #90 TAB Ref 3 Prov: 11/09/21 Reported MedicationsMetoprolol Succ Xl (Toprol Xl) 25 MG PO DAILY Insulin Glargine (Lantus) 20 UNITS SUBQ QAM Aspi rin 81 MG PO BEDTIME Insulin Lispro (Humalog) Insulin Lisp ro (Humalog) 0 UNITS SUBQ AC HS Review of Nursing N otes Triage notes reviewedPast Medical History:Reports: Katina nary artery disease, Diabetes mellitus, Hypertension. Additi onal Medical HistoryMI Neuropathy Visual ImpairmentAl cohol Use Alcohol use (former)Drug Use Denies recreational drugs Physical Exam Vital SignsReview of Vital Signs R eviewed Interpretation Diagnostics Lab Results InterpretationResultsLaboratory Tests 11/28/21 1217:[Embedded Image Not Available]Laboratory Te sts: 11/28 11/28 11/28 11/28 1153 1217 1217 1217Chemistry S odium (135 - 145 mmol/L) 132 L Potassium (3.5 - 5.1 mmol/L) 5.2 H Chloride (98 - 107 mmol/L) 100 Carbon Dioxide (2 1 - 32 mmol/L) 20 L Anion Gap (2.0 - 16.0) 17.2 H BUN ( 4 - 23 mg/dL) 27 H Creatinine (0.6 - 1.5 mg/dL) 1.8 H G lomerular Filtr Rate (>60 ml/min) 36 L BUN/Creatinine Rati o (12.0 - 20.0) 15.0 Glucose (65 - 99 mg/dL) 671 *H POC Gl ucose (70 - 105 mg/dL) 531 *H Lactic Acid (0.4 - 2.0 mmol/L) 1.0 Calcium (8.5 - 10.1 mg/dL) 8.9 Magnesium (1.8 - 2.4 mg/dL) 2.1 Total Bilirubin (0.2 - 1.2 mg/dL) 0.5 Direct Bilirubin (0.0 - 0.3 mg/dL) < 0.1 Indirect Bilirubin (0.0 - 0.8 mg/dL) 0.4 AST (15 - 37 U/L) 35 ALT (6 - 50 U/L) 34 Total Alk Phosphatase (45 - 117 U/L) 109 Troponin I Hi gh Sens (0 - 53 pg/mL) 44 B-Natriuretic Peptide (0 - 100 pg /mL) 197 H Total Protein (6.4 - 8.2 g/dL) 7.8 Albumin (3.4 - 5.0 g/dL) 3.4 Globulin (2.3 - 3.5 g/dL) 4.4 HHematology WB C (4.5 - 11.0 10 3/uL) 3.3 L RBC (3.50 - 5.50 10 6/uL) 3. 45 L Hgb (12.0 - 16.0 g/dL) 10.7 L Hct (37.0 - 55.0 %) 31 .6 L MCV (81 - 102 fL) 92 MCH (26.0 - 34.0 pg) 31.0 MCHC (31.0 - 37.0 g/dL) 33.9 RDW (11.6 - 14.4 %) 13.7 Plt Cou nt (150 - 400 10 3/uL) 235 MPV (9.0 - 12.6 fL) 11.6 Neut % (Auto) (33.0 - 76.0 %) 53.1 Lymph % (Auto) (14.0 - 56.4 %) 33.1 Lanier % (Auto) (0.0 - 12.9 %) 10.8 Eos % (Auto) ( 0.0 - 7.0 %) 1.8 Baso % (Auto) (0 - 2.0 %) 0.9 Neut # (Aut o) (1.5 - 7.0 10 3/uL) 1.76 Lymph # (Auto) (1.50 - 4.00 10 3/uL) 1.10 L Lanier # (Auto) (0.20 - 0.80 10 3/uL) 0.36 Eos # (Auto) (0.0 - 0.5 10 3/uL) 0.06 Baso # (Auto) (0.0 - 0. 1 10 3/uL) 0.03 Abs Immat Gran (auto) (0.000 - 0.100 0.010x 10 3/uL) Immature Gran % (0.0 - 1.0 %) 0.3 Nucleated RBC % (0 - 0.2 %) 0.0 Nucleated RBCs # (0.000 - 0.012 10 3/uL) 0.000Toxicology Acetone, Qual (NEGATIVE) SMALL H 11/28 11/28 11/28 1231 1400 1453 Blood Gas Total CO2 ( 22 - 30 mmol/L) 24.0 VBG pH (7.32 - 7.42 pH) 7.34 VBG pC O2 (41 - 51 mmHg) 42 VBG pO2 (25 - 40 mmHg) 64 H VBG HCO3 ( 24 - 25 mmol/L) 22 L VBG O2 Sat (Calc) (70 - 75 %) 91 H VBG Base Excess (-5 - 5 mmol/L) -3 Ionized Calcium (1.12 - 1.32 mmol/L) 1.12 Chemistry POC Sodium (138 - 146 mmo l/L) 134 L POC Potassium (3.5 - 4.9 mmol/L) 4.8 POC Glucose (70 - 105 mg/dL) > 625 *H 480 *H 380 H Hematology POC Hgb (12 - 17 g/dL) 11.2 L POC Hct (38 - 51 %) 33.0 L Microbi ology: Date/Time Procedure - Status Source Growth 11/28 1210 Blood Culture - RECD BLOOD 11/28 1210 Blood Culture - RECD BLOOD 11/28 1200 Blood Culture - RECD BLOOD 11/28 120 0 Blood Culture - RECD BLOOD Recent Impressions:RADIOLOG Y - XR CHEST 1 V 11/28 1152 Report Impression - Stat us: SIGNED Entered: 11/28/2021 1210 IMPRESSION: No acute pu lmonary process.Impression By: Florencio - Som Villegas MD Lab Imaging StatementLaboratory radiographic studies reviewed and considered in the medical decision-making. P oint of Care TestingRhythm Strip Interpretation Time 135 0 Rate 76 Rhythm Strip Interpretation Interpreted by me, N ormal sinus rhythm ECG #1 InterpretationText/Dict NoteNormal rate, rhythm, axis. No QRS widening. No MAYO or STD. EK G reviewed and interpreted by me. Re-Evaluation MDM ED CourseMedication(s) OrderedMedication(s) Ordered:Electrolytic, Caloric, And Pablo Sig/Chris S tart time Last Medication Dose Route Stop Time Status Admi n Sodium Chloride 2,000 ML X1ED STA 11/28 1143 DC 11/28 I V 11/28 1242 1235 Hormones And Synthetic Substit Sig/Chris Start time Last Medication Dose Route Stop Time Status Adm in Insulin Human Regular 7 UNIT X1ED STA 11/28 1401 DC 10/31 1 IV 11/28 1402 1407 Insulin Human Regular 10 UNIT X1ED STA 11/28 1325 CAN IV 11/28 1326 Patient Discharge Departure Vi terra Signs/ConditionVital SignsAll vital signs availa ble at the time of this entry have been reviewed. Clinical ImpressionClinical ImpressionPrimary Impression: HyperglycemiaSecondary Impressions: Dehydration, Hyperkalemia, Hyponatremia Disposition DecisionA dmit Admit Physician Name Erasmo Fay MD Admit [facility] Hospitalist Request Time 1430 Request Date 11/28 )( Admission Accepts Yes )( Accepted Time 1506 )( A ccepted Date 11/28/21 Discharge/Care PlanCounseled Maria G magdaleno Diagnosis, Lab results, Imaging studies, Need fo r follow-up Critical CareTime Spent (minutes): 35Services Pe rformed Patient management by me, Time spent at bedside, Reviewing test results, Reviewing imaging, Discussing kayla ent care, Documentation in record, Time with fam/surrogate Separately billable procedures excluded from time.Patient w as critically ill due to:Severe hyperglycemia and m ultiple electrolyte derangement, severe dehydrationMy tr eatment and management were:Aggressive fluid and electrolyte resuscitation, endocrine consult CC Note 1Total critical care time 35 minutes. Total critical care time d ocumented does not include time spent on separately billed procedures or the services of residents, students, nurses o r physician assistants. I personally saw and examined the angel luis aguilar. I have reviewed all diagnostic interpretations and treatment plans as written. I was present for the ingram port ions of any proceduresperformed and the inclusive time noted in any critical care statement. Critical care time incl udes patient management by me, time spent at the [facility] ents bedside,time to review lab and imaging results, discussing patient care, documentation in the medical recor d, and time spent with the family or caregiver. Electronical ly Signed by Daniel Díaz MD on 11/28/21 at 1509RPT #:[id number] OF REPORTEDEmergency department [id number]:09:[id number] vailable for patient [id number]:09:1 4 2021-11-25 [id number]:50:00 [facility] [place] 09:50:00 [place] [facility]. Discharge Summary REPO RT #: [id number] REPORT STATUS: Signed DATE: 11/25/21 T EDUARDO: 0950 PATIENT: DANIELE HINKLE UNIT #: [id number] ROOM #: [place] [address] BED: 1 : 3 AGE: 71 SEX: F ATTEND: Erasmo aFy MD ADM DT: AUTHOR: Britney Winchester DO ATTENTION EDITS and/or ADDENDA must be made i n Patient Keeper for this note. Edits and ammendments c reated in [facility] are not visible in Patient Keeper or the legal medical record (HPF). -- PROBLEMS/PROCEDURES -- ADMISSIO N DATE:10/01/21 ADMITTING DIAGNOSES: - Urinary tra ct infection - DKA (diabetic ketoacidosis) DISCHARG E DATE:10/03/21 DISCHARGE DIAGNOSES: - Urinary tra ct infection - DKA (diabetic ketoacidosis) - Diabet ic visual loss: better eye: profound vision impairment; le sser eye:near-total vision impairment, with macular e zaki, with retinopathy, associatedwith type 1 diabetes yuliet itus - Type 1 diabetes mellitus with diabetic polyneuropathy - Hypertension - Peripheral arterial disease - CAD (coronary artery disease) -- HOSPITAL COURSE -- HOSPITAL C OURSE: 71yo BF with uncontrolled diabetes presented to ED wi th signs of elevatedsugars and DKA. Pt reports taking insuli n as given by her normallywithout missing doses. St ates over the last fewdays started feeling unwell withnaus ea, vomiting and weakness. Notes increased urination and some burning inthe last week but denies any fever/chi lls, , diarrhea but has someconstipation. Her a1c is >1 4. Pt was admitted to ICU for DKA with improvementof sympt oms over night. Pt with hx of significantly uncontrolled sugars. Shewas tolerating her diet on a basal/bolus insu janki regimen and was closelyfollowed by critical care and end ocrinology during her hosp stay. She was ableto be discharg ed on 10/03. -- DISCHARGE MEDICATIONS -- ALLERGIES:codeine (I ntermediate - Allergy)lisinopril (Intermediate - Allergy) -- DISCHARGE INSTRUCTIONS -- ADDTIONAL DISCHARGE INSTRUCTIONS :Emergency Instructions: The patient was instructed to pres ent to the nearestEmergency Department or call 911 should t heir symptoms return or worsen.; Signed in PatientKee per by Britney Winchester DO on 11/25/21 at 09:51 Electron miryam Signed by Britney Winchester DO on 11/25/21 at 0951ATTENTION EDITS and/or ADDENDA must be ma de in Patient Keeper for this note. Edits and ammen dments created in [employer] are not visible in Patien t Keeper or the legal medical record (HPF). [facility] #: [id number] OF REPORT DSDischarge [id number]:50:[id number] e for patient [id number]:52 :37 2021-11-12 [id number]:15:[id number] [facility] 16:15:00 [facility] [id number] [facility] [place] [id number] PATIENT NAME: DANIELE HINKLE ADMIT D ATE: 11/06/21ACCOUNT NO: [id number] ROOM NO: [facility] 7 AGE: 71 REPORT TYPE: 360 - QUERY RESPONSE DOCUMENT SEX: F ADMITTING PHYSICIAN:Erasmo Fay MD ATTENDING PHYSICIAN:Erasmo Fay MD Provider Query QUERY TEXT: Specificity Heart Failure 360MD Query related qu estions should be directed to: [facility] Coding Query Good landryine The medical record reflects the d iagnosis of ''heart failure'' (e.g. Congestive, left, etc.) in the Cardiology Progress Notes 11/09/2021, and pertin ent studies for type (e.g. echocardiogram, cardiac catheteri zation, abnormal EF) or pertinent clinical indicators fo r acuity (e.g. Elevated BNP, IV diuretics, abnormal imagi ng studies, etc.) Based on your clinical judgment, can you f urther clarify the type and acuity of the heart failure that represents the clinical indicators listed below? The patient's Clinical Indicators include:CHF (conge stive heart failure) - Cardiology Progress Notes 11/09/2021E jection Fraction = 40-45%.- ECHOCARDIOGRAM 2clo pidogreL 75 MG TABLET: MAROptions provided:-- Systolic, Plea se specify acuity.-- Diastolic, Please specify acuity.-- Sy stolic and diastolic, Please specify acuity.-- Left Ventric ular Failure-- Biventricular Heart Failure-- High Out put Heart Failure-- Right Heart Failure, Please specify ac uity and if it is due to left heart failure.-- End Stage Hea rt Failure-- Other - I will add my own diagnosis-- Dismiss - Not applicable / Not valid-- Dismiss - Clinicall y unable to determine / Unknown-- Assign to another provider QUERY RESPONSE: The patient has systolic (HFrEF) heart failure . chronic Query created by: Ivan Fisher on 10/29 4:42 AM QUERY TEXT: Sequencing Diagnosis Occasioning Admission 360MD Query related questions should be directed to: [facility] Coding Query Helpline Based o n your clinical judgment of the documented diagnoses an d clinical indicators listed below, please specify the cond ition(s), after study, that occasioned the admission to [facility].Type 1 diabetes mellitus with ketoacido sis, uncontrolled : Family Med. History and Physical 11/06/2021,NSTEMI (non-ST elevated myocardial in farction): Family Medicine Progress Note 11/09/2021 The pat ient's Clinical Indicators include:Type 1 diabetes yuliet itus with ketoacidosis, uncontrolled : Family Med. History and Physical 11/06/2021NSTEMI (non-ST elevated myoca rdial infarction): Family Medicine Progress Note 2Options provided:-- Multiple diagnoses , Please list the diagnoses occasioning the admission.-- Other - I will add my own diagnosis-- Dismiss - Not applic able / Not valid-- Dismiss - Clinically unable to determine / Unknown-- Assign to another provider QUERY RESPO NSE: The patient has multiple diagnoses occasioned the ad mission. type 1 DM with DKA and NSTEMI Query created by: Ivan Fisher on 11/12/2021 4:52 AM Electronically Sig rudi by Erasmo Fay MD on 11/12/21 at 1615 KAY[facility] ENT NAME: DANIELE HINKLE linical [id number] for patient [id number]:16:41 2021-11-09 [id number]:25:00 [facility] [place] 13:25:00 [place] ([facility])Med Order Sheet REPORT #: [id number] REPORT STATUS: Signed DATE: 11/09/21 TIME: 1325 PATIENT : DANIELE HINKLE UNIT #: [id number] # : [id number] ROOM #: [place].2107 BED: 1 : 3 AGE: 71 SEX: F ATTEND: Erasmo Fay MD ADM DT: AUTHOR: Erasmo Fay MD ATTENTION EDITS and/or ADDENDA must be made i n Patient Keeper for this note. Edits and ammendments c reated in [facility] are not visible in Patient Keeper or the legal medical record (HPF). Discharge Medication Reconciliatio n DISCHARGE MEDICATION LISTDonepezil Tab (Aricept Tab) Dose: 5MG PO BEDTIME, Disp: 90 tablet, Refills: 0Insulin (Gla rgine) Inj (Lantus Inj) Dose: 20UNITS SUBQ QAMInsulin Lispr o InJ (HumaLOG Inj) Dose: 0 UNITS SUBQ AC HSVitamin D3 Tab (Cholecalciferol Tab) Dose: 8000UNIT PO QPM, Dis p: 90 tablet, Refills: 0 STOPPED HOSPITAL MEDICATIONSD c'd: Dextrose Chewable Tab (Glucose Chewable Tab) 16G M PO ASDIR PRNhypoglycemia protocolDc'd: Glucagon Inj (Gluc agon Inj) 1MG IM ASDIR PRNhypoglycemia protocolDc'd: Magne sium Sulfate 1Gm IVPB (Magnesium Sulfate 1GmIVPB) 1GM 100 MLS/HR IV Q1H X 2 dosesDc'd: Mupirocin Ointment 2% (BactrobanOintment 2%) 1APPLIC NASAL BID X 10 doses Electronically Keila d by Erasmo Fay MD on 11/09/21 at 1325ATTENTION EDITS and/or ADDENDA must be ma de in Patient Keeper for this note. Edits and ammen dments created in [facility] are not visible in Patien t Keeper or the legal medical record (HPF). RPT #: [id number] OF REPORT CLClinical [id number]:25:[id number] Available for patient [id number]:25:4 7 2021-11-09 [id number]:24:00 [facility] [place] 13:24:00 [place] ([facility])Family Medicine Progress Note REPO RT #: [id number] REPORT STATUS: Signed DATE: 11/09/21 T EDUARDO: 1324 PATIENT: DANIELE HINKLE UNIT #: [id number] ROOM #: [place].[id number] BED: 1 : [birth year] 3 AGE: 71 SEX: F ATTEND: Erasmo Fay MD ADM DT: AUTHOR: Erasmo Fay MD ATTENTION EDITS and/or ADDENDA must be made i n Patient Keeper for this note. Edits and ammendments c reated in [employer] are not visible in Patient Keeper or the legal medical record (HPF). -- ASSESSMENT AND PLAN -- PROBLEMS : 1: Type 1 diabetes mellitus with ketoacidosis, uncontrolle dA/P: likely due to missing medicationsendocrine consultaotnhydrateinsulinanion gap resolvedre[la ce electrolyteshome healthPT OT eval DC home 2: Typ e 1 diabetes mellitus with diabetic chronic kidney d isease 3: Type 1 diabetes mellitus with diabetic polyneuro chucho 4: Diabetic visual loss: better eye: profound visio n impairment; lesser eye:near-total vision impairm ent, with macular edema, with retinopathy, associatedwith type 1 diabetes mellitus 5: Mixed hyperlipidemia 6: Hyp ertension 7: CAD (coronary artery disease) 8: Peripheral a rterial disease 9: Chronic kidney disease, stage 3aA/P: due to DM 10: NSTEMI (non-ST elevated myocardial infarctio n)A/P: troponin trending down, no chest painhas known d iffuse CAD that is not ammenable to revascularizationcardio logy following OK to DC home,no statin due to myalgia s 11: HypomagnesemiaA/P: replace -- SUBJECTIVE -- HPI: feeling better no new scomplaints. discussed PT luther estrella consideration ofSNF vs Home health, patient and family declined SNF -REVIEW OF SYSTEMS- GENERAL: Negat mirtha for fever, chills, unexplained weight loss, and fatigueRESPIRATORY: Negative for shortness of br eath, cough, chest congestion, wheezing, hemoptysis, a nd pleuritic painCARDIOVASCULAR: Negative for chest pain, palpitations, dyspnea on exertion, orthopnea, ed venancio and dizzinessGASTROINTESTINAL: Negative for abdomina l pain, nausea, vomiting, diarrhea, constipation, and anorexiaGENITOURINARY: Negative for dysuria, mulugeta quency, or urgency. No gross hematuria.SKIN: Negative for rashes. No pruritus. -- OBJECTIVE -- VITALS (11/08 13:24 - 11/09 13:24):Temperature C: 36.5 (36.5 - 37.1)Temperat ure source: OralPulse Rate 80 (74 - 89)Respiratory rate: 18 (17 - 18)BP: 151/77 (128/73 - 155/87) -EXAM- GENERAL: Well developed, well nourished, in no apparent distre ss.NECK: No masses, no thyromegaly, no abnormal cervical nodes, trachea midline.LUNGS: Respirations unlabored, c lear to auscultation bilaterally, no wheezing, no ronchi , no ralesHEART: Regular rate and rhythm, normal S1, S2, no murmurs, no rubs, no gallops, no clicks.ABDOMEN: + BS soft, flat, nontender, the liver and spleen are not pa lpable, no palpable masses, no herniasEXTREMITIES: No clubb ing, cyanosis or edemaNEUROLOGICAL: Alert and oriente d to person, place, and time. no facial asymmetry, no rmal speech. Moves all extremities symmetrically, nor mal tone,PULSES: Normal carotid pulses without bruit s. Normal pulses bilaterally at radial, dorsalis pedis and posterior tibial locations.SKIN: No pallor, no jaundice, n o rash, normal turgorLYMPH NODES: None palpable cervical , axillary, supraclavicular or inguinal locationsPSYCHIATRIC : Mood euthymic. Affect congruent, Normal eye contact, normal speech. thought process and thought content inta ct. -- DATA -- MEDICATIONS clopidogreL 75 MG PO DAILYRANOLAZ INE 1000 MG PO [id number] 81 MG PO DAILYDONEPEZIL HCL 5 MG PO BEDTIMEISOSORBIDE DINITRATE 5 MG PO BID 9A 5PMUP IROCIN 1 APPLIC NASAL BIDMETOPROLOL TARTRATE 12.5 MG PO Q 12HRINSULIN GLARGINE 20 UNITS SUBQ QAMDEXTROSE 16 GM PO ASDI R (PRN)MIDODRINE HCL 5 MG PO TID PRNGLUCAGON 1 MG IM ASDIR (PRN)CHOLECALCIFEROL (VITAMIN D3) 8000 UNIT PO Q PMEZETIMIBE 10 MG PO DAILYMAGNESIUM 1 GM IV [id number] LISPR O 0 UNITS SUBQ AC HS LABS GLU BED (11/09/21 11:16)GLUBED 345 H PHOS (11/09/21 05:14)PHOSPHOROUS 3.4 CBC W/AUTO DIFF (11/09/21 05:14)WHITE BLOOD CELL 3.3L LRED BLOOD CELL 3.02 LHEMOGLOBIN 9.2L LHEMATOCRIT 27.1L LMEAN CELL VO LUME 90MEAN CELL HGB 30.5MEAN CELL HGB CONCENTRATION 33.9RED CELL DISTRIBUTION WIDTH 13.5PLATELET COUNT 172MEAN PL ATELET VOLUME 11.1NEUTROPHIL % 48.7IMMATURE GRANULOCYTE % 0.6LYMPHOCYTE % 31.9MONOCYTE % 17.3 HEOSINOPHIL % 0.9BASOPHIL % 0.6NUCLEATED RBC % 0.0NEUTROPHIL # 1.60IMMATURE GRANULOCYTE # 0.020LYMPHOCYTE # 1.0 5 LMONOCYTE # 0.57EOSINOPHIL # 0.03BASOPHIL # 0.02NUCLEATED RBC # 0.000 BASIC METABOLIC PANEL (11/09/21 05:14)SODIUM 136 POTASSIUM 3.9CHLORIDE 102CARBON DIOXIDE 27ANION GAP 10.9 D GLUCOSE 177D H D HBLOOD UREA NITROGEN 19 GLOMERULAR FILT RATION RATE >=60 max estimateCREATININE 1.1BUN/CREATININE RA MARCELA 17.3CALCIUM 8.3 L MAG (11/09/21 05:14)MAGNESIUM 1.7 L GLU BED (11/09/21 04:40)GLUBED 168 H GLU BED ( 21:22)GLUBED 253 H GLU BED (11/08/21 15:44)GLUBE D 162 H Signed in PatientKeeper by Erasmo Fay MD on 11/09/21 at 13:26 at 1326ATTENTION EDITS and/or ADDENDA must be ma de in Patient Keeper for this note. Edits and ammen dments created in [facility] are not visible in Patien t Keeper or the legal medical record ([facility]). RPT #: [id number] OF REPORT PRProgress [id number] Available for patient [id number]:27:1 6 2021-11-09 [id number]:29:00 [facility] [place] 11:29:00 [place] ([facility])Med Order Sheet REPORT #: [id number] REPORT STATUS: Signed DATE: 11/09/21 TIME: 1129 PATIENT : DANIELE HINKLE UNIT #: [id number] # : [id number] ROOM #: NC.2107 BED: 1 : 3 AGE: 71 SEX: F ATTEND: Erasmo Fay MD ADM DT: AUTHOR: Andreina Oliva MD ATTENTION EDITS and/or ADDENDA must be made i n Patient Keeper for this note. Edits and ammendments c reated in [facility] are not visible in Patient Keeper or the legal medical record ([facility]). Discharge Medication Reconciliatio n DISCHARGE MEDICATION LISTMidodrine Tab 5 mg(ProAmatine Tab 5mg) Dose: 5MG PO TID PRN sbp<100, Disp: 90 tablet, R efills: 3 - Take only if SBP<100 The following Hospital Medi cations have not yet been reconciled:Dextrose Chewable T ab (Glucose Chewable Tab) 16GM PO ASDIR PRN hypoglycemiaprotocolDonepezil Tab (Aricept Tab) 5MG PO BEDTIMEGlucagon Inj (Glucagon Inj) 1MG IM ASDIR PRN hypoglycemia protocolInsulin (Glargine) Inj (Rodríguez tus Inj) 20UNITS SUBQ QAMInsulin Lispro InJ (HumaLOG Inj) 0 UNITS SUBQ AC HSMagnesium Sulfate 1Gm IVPB (Magnesium Sulfate 1Gm IVPB) 1 GM 100 MLS/HR IV Q1HX 2 doses (MAGNES IUM SULFATE 1 GM X 2 DOSES = 2 GM TOTAL DOSE)Magnesium Sul fate 1Gm IVPB (Magnesium Sulfate 1Gm IVPB) 1GM 100 MLS/HR IV Q1HX 2 dosesMupirocin Ointment 2% (Bactroban Ointment 2 %) 1APPLIC NASAL BID X 10 dosesVitamin D3 Tab (Cholecalcife rol Tab) 8000UNIT PO QPM Electronical ly Signed by Andreina Oliva MD on 11/09/21 at 1129ATTENTION EDITS and/or ADDENDA must be ma de in Patient Keeper for this note. Edits and ammen dments created in [facility] are not visible in Patie nt Keeper or the legal medical record ([facility]). RPT #: [id number] OF REPORT CLClinical [id number]:29:[id number] Available for patient [id number]:30:0 1 2021-11-09 [id number]:16:00 [facility] [place] 10:16:00 [place] ([facility])Med Order Sheet REPORT #: [id number] REPORT STATUS: Signed DATE: 11/09/21 TIME: 1016 PATIENT : DANIELE HINKLE UNIT #: [id number] # : [id number] ROOM #: NC.2107 BED: 1 : 3 AGE: 71 SEX: F ATTEND: Erasmo Fay MD ADM DT: AUTHOR: Andreina Oliva MD ATTENTION EDITS and/or ADDENDA must be made i n Patient Keeper for this note. Edits and ammendments c reated in [facility] are not visible in Patient Keeper or the legal medical record ([facility]). Discharge Medication Reconciliatio n DISCHARGE MEDICATION LISTAspirin EC Tab (Ecotrin Tab) Dose : 81MG PO DAILY, Disp: 30 tablet, Refills: 3Clopidogrel Ta b (Plavix Tab) Dose: 75MG PO DAILY, Disp: 30 tablet, Refil ls: 3Ezetimibe Tab (Zetia Tab) Dose: 10MG PO DAILY, Disp: 30 tablet, Refills: 3Isosorbide Dinitrate Tab (Isor dil Tab) Dose: 5MG PO BID 9A 5P, Disp: 60 tablet, Refills : 3 - Hold if SBP<110Metoprolol Tartrate Tab (Lopressor Tab ) Dose: 12.5MG PO Q12HR, Disp: 60 tablet, Refills: 3 - H old if SBP<110, HR<60Ranolazine ER Tab (Ranexa Tab) Dos e: 1000MG PO Q12HR, Disp: 120 tablet, Refills: 3 [facility] Medications have not yet been reconcile d:Dextrose Chewable Tab (Glucose Chewable Tab) 16GM PO ASD IR PRN hypoglycemiaprotocolDonepezil Tab (Aricept Tab) 5MG PO BEDTIMEGlucagon Inj (Glucagon Inj) 1MG IM ASDIR PRN hypoglycemia protocolInsulin (Glargine) Inj (Rodríguez tus Inj) 20UNITS SUBQ QAMInsulin Lispro InJ (HumaLOG Inj) 0 UNITS SUBQ AC HSMagnesium Sulfate 1Gm IVPB (Magnesium Sulfate 1Gm IVPB) 1 GM 100 MLS/HR IV Q1HX 2 doses (MAGNES IUM SULFATE 1 GM X 2 DOSES = 2 GM TOTAL DOSE)Midodrine Tab 5 mg(ProAmatine Tab 5mg) 5MG PO TID PRN sbp<100 47 .627 kgMupirocin Ointment 2% (Bactroban Ointment 2%) 1APPLIC NASAL BID X 10 dosesVitamin D3 Tab (Cholecalcife rol Tab) 8000UNIT PO QPM Electronical ly Signed by Andreina Oliva MD on 11/09/21 at 1016ATTENTION EDITS and/or ADDENDA must be ma de in Patient Keeper for this note. Edits and ammen dments created in [facility] are not visible in Patien t Keeper or the legal medical record ([facility]). RPT #: [id number] OF REPORT CLClinical [id number]:16:[id number] Available for patient [id number]:16:3 7 2021-11-09 [id number]:12:[id number] [facility] [place] 10:12:00 [facility] ([facility])Cardiology Progress Notes REPORT # : [id number] REPORT STATUS: Signed DATE: 11/09/21 TIME: 1012 PATIENT: DANIELE HINKLE UNIT #: [id number] #: [id number] ROOM #: NC.2107 BED: 1 : 3 AGE: 71 SEX: F ATTEND: Erasmo Fay MD ADM DT: AUTHOR: Andreina Oliva MD ATTENTION EDITS and/or ADDENDA must be made i n Patient Keeper for this note. Edits and ammendments c reated in [employer] are not visible in Patient Keeper or the legal medical record ([facility]PF). -- ASSESSMENT AND PLAN -- PROBLEMS : 1: NSTEMI (non-ST elevated myocardial infarction)A/P: - ei ther 2/2 CAD progression or 2/2 demand isch in setting of DKA- pt with known sev diffuse non-revascularizable CAD- Tn peaked at 4.8k 11/06/21 and is trending down- ECG - sinus rhythm w/o ischemic changes- ef down from 50% 04/08/21 to 40 % 11/07/21- iv hep gtt since 11/06 - continue until 11/08 11:00 pm- resume ASA 81/plavix 75- resume lopr/isordil if BP allo ws- h/o statin-induced myalgias; zetia 10 for now- poor px; cont with med mgmt- discussed above with pt and kandi hernandez, dtr kenrick and dominik gonzalez; all ?sanswered- ok to d/c home from cardiology standpoint 2: CHF (congestive he art failure)A/P: -newly doc shf: ?2/2 CAD progressio n vs 2/2 ac illness-ef down from 50% 04/08/21 to 40% 11/07/21- prn iv las-bb 3: HypotensionA/P: off levomidodrine 5 TI D PRN for SBP<100 4: CAD (coronary artery disease)A/P: - k nown sev diffuse non-revascularizable CAD- re medical mxm - given uncontrolled DM, would not opt for surg revascul arization- lopr/isord if BP allows- resume asp/plav/ranexa/ zet 5: Diabetic keto-acidosisA/P: - iv ins gtt- A1C 13 04/20 yet >14 10/20- rec strict glycemic control- no longer in DKA- compliance with meds encouraged- endo following 6: Non compliance w medication regimenA/P: - encouraged again strict compliance with all meds 7: Hyperlipidemi aA/P: - not on statin due to severe myalgias- c/w home zetia 10 qd- FLP 96/63/143 11/19 8: Severe protein-calorie malnutr itionA/P: nutrition csltBMI 17.6 -- SUBJECTIVE -- PATIENT NARRATIVE:No acute events. -- OBJECTIVE -- VITAL S (11/08 10:12 - 11/09 10:12):Temperature C: 36.5 (36.5 - 37.1)Temperature source: OralPulse Rate 74 (74 - 89)Respiratory rate: 18 (15 - 18)BP: 155/86 (98/ 51 - 155/87) -EXAM- GENERAL: Well developed, THINHEAD : Normocephalic, atraumatic.NECK: trachea midline .CHEST: Grossly normal appearance.LUNGS: NORMAL CHEST WA LL MOVEMENTHEART: NO TACHYCARDIAABDOMEN: NON-DISTENDEDNEUROLOGICAL: NORMAL SPEECHPSYCHIA TRIC: Alert and oriented to time, person, place -- DATA -- M EDICATIONS HEPARIN SODIUM,PORCINE/D5W 30584 UNIT IV TITRATE clopidogreL 75 MG PO DAILYRANOLAZINE 1000 MG PO [id number] 81 MG PO DAILYDONEPEZIL HCL 5 MG PO BEDTIMEISOSORBIDE DIN ITRATE 5 MG PO BID 9A 5PMUPIROCIN 1 APPLIC NASAL BIDMETOPROL OL TARTRATE 12.5 MG PO [id number] GLARGINE 20 UNITS SUBQ Q AMDEXTROSE 16 GM PO ASDIR (PRN)GLUCAGON 1 MG IM ASDIR (PRN) MIDODRINE HCL 5 MG PO TIDCHOLECALCIFEROL (VITAMIN D3) 8000 UNIT PO QPMINSULIN LISPRO 0 UNITS SUBQ AC HSEZETIMIBE 10 MG PO DAILY LABS PHOS (11/09/21 05:14)PHOSPHOROUS 3.4 CBC W/AUTO DIFF (11/09/21 05:14)WHITE BLOOD CELL 3.3L LRED BLOOD CELL 3.02 LHEMOGLOBIN 9.2L LHEMATOCRIT 27.1L LMEAN C ELL VOLUME 90MEAN CELL HGB 30.5MEAN CELL HGB CONCENTRATION 33.9RED CELL DISTRIBUTION WIDTH 13.5PLATELET COUNT 172ME AN PLATELET VOLUME 11.1NEUTROPHIL % 48.7IMMATURE GRANULOCYTE % 0.6LYMPHOCYTE % 31.9MONOCYTE % 17.3 HEOSINOPHIL % 0.9BASOPHIL % 0.6NUCLEATED RBC % 0.0NEUTROPHIL # 1.60IMMATURE GRANULOCYTE # 0.020LYMPHOCYTE # 1. 05 LMONOCYTE # 0.57EOSINOPHIL # 0.03BASOPHIL # 0.02 NUCLEATED RBC # 0.000 BASIC METABOLIC PANEL (11/09/21 05:1 4)SODIUM 136POTASSIUM 3.9CHLORIDE 102CARBON DIOXIDE 27ANI ON GAP 10.9 DGLUCOSE 177D H D HBLOOD UREA NITROGEN 19GLOMER ULAR FILTRATION RATE >=60 max estimateCREATININE 1.1BUN/CREATININE RATIO 17.3CALCIUM 8.3 L MAG ( 11/09/21 05:14)MAGNESIUM 1.7 L GLU BED (11/09/21 04:40)GL UBED 168 H GLU BED (11/08/21 21:22)GLUBED 253 H GLU BED (0 11/08/21 15:44)GLUBED 162 H GLU BED (11/08/21 11:06)GLUBE D 196 H Signed in PatientKeeper by Andreina Oliva MD on 11/09/21 at 11:28 at 1128ATTENTION EDITS and/or ADDENDA must be ma de in Patient Keeper for this note. Edits and ammen dments created in [facility] are not visible in Patien t Keeper or the legal medical record ([facility]). RPT #: [id number] OF REPORT PRProgress [id number]:12:[id number] Available for patient [id number]:29:0 1 2021-11-09 [id number]:27:00 [facility] [place] 09:27:00 [facility] ([facility])Endocrinology Progress Note REPORT #: [id number] REPORT STATUS: Signed DATE: 11/09/21 T EDUARDO: 0927 PATIENT: DANIELE HINKLE UNIT #: [id number] ROOM #: NC.2107 BED: 1 : 3 AGE: 71 SEX: F ATTEND: Erasmo Fay MD ADM DT: AUTHOR: Nini Doan MD ATTENTION EDITS and/or ADDENDA must be made i n Patient Keeper for this note. Edits and ammendments c reated in [facility] are not visible in Patient Keeper or the legal medical record (HPF). -- ASSESSMENT AND PLAN -- PROBLEMS : 1: Type 1 diabetes mellitus with ketoacidosis without coma A/P: UNCONTROLLED (HGBA1C>15.5%,HYPERGLYCEMIA) TYPE I DM IN DKA SECONDARY TONON-COMPLIANCE WITH INSULIN. DKA RES OLVED: DCM=876 HS TNQZCCW=222 AG=10.9 .OBSERVE ON PRESE NT SQ BASAL/BOLUS INSULIN. MUST HAVE A BEDTIME SNACK. 2: Vitamin D deficiencyA/P: 25-OH VIT D=18. OBSERVE ON LOAD ING DOSE OF VIT D3. -- SUBJECTIVE -- CHIEF COMPLAINT:HYPERGL YCEMIA, DKA HPI: EVENTS NOTED: OUT OF ICU. SITTING IN BED HAVINGBREAKFAST. MAY BE GOING HOME. -REVIEW OF S YSTEMS- GENERAL: Negative for feverRESPIRATORY: Negative for dyspneaCARDIOVASCULAR: Negative for chest painGASTROINTESTINAL: Negative for abdominal tonia n or nausea. No emesis.ENDOCRINE: Negative for polydi psia, polyuria -- OBJECTIVE -- VITALS (11/08 09:27 - 0 11/09 09:27):Temperature C: 36.5 (36.5 - 37.1)Temperat ure source: OralPulse Rate 74 (74 - 89)Respiratory rate: 18 (15 - 18)BP: 155/86 (98/51 - 155/87) -EXAM- GENERAL: W ell developed, THIN , in no apparent distress.HEAD: Normocephalic, atraumatic.NECK: trachea midline. CHEST: Grossly normal appearance.LUNGS: NORMAL CHEST WA LL MOVEMENTHEART: NO TACHYCARDIA ABDOMEN: NON-DISTENDEDNEUROLOGICAL: NORMAL SPEECHPSYCHIAT ALPESH: Alert and oriented to time, person, place -- DATA -- M EDICATIONS HEPARIN SODIUM,PORCINE/D5W 68281 UNIT IV TITRATE clopidogreL 75 MG PO DAILYRANOLAZINE 1000 MG PO [id number] SODIUM,PORCINE 2000 UNIT IV ASDIR (PRN)ASPIRIN 8 1 MG PO DAILYHEPARIN SODIUM,PORCINE 3500 UNIT IV ASDIR (PRN)DONEPEZIL HCL 5 MG PO BEDTIMEISOSORBIDE DIN ITRATE 5 MG PO BID 9A 5PMUPIROCIN 1 APPLIC NASAL BIDMETOPROL OL TARTRATE 12.5 MG PO [id number] GLARGINE 20 UNITS SUBQ Q AMDEXTROSE 16 GM PO ASDIR (PRN)GLUCAGON 1 MG IM ASDIR (PRN)CHOLECALCIFEROL (VITAMIN D3) 63069 UNIT PO QPMMIDODRINE HCL 5 MG PO TIDEZETIMIBE 10 MG PO D AILYINSULIN LISPRO 0 UNITS SUBQ AC HS LABS PHOS (11/09/21 05:14)PHOSPHOROUS 3.4 CBC W/AUTO DIFF (11/09/21 05:14)WHITE BLOOD CELL 3.3L LRED BLOOD CELL 3.02 LHEMOGLOBIN 9.2L LHEMATOCRIT 27.1L LMEAN CELL VOLUME 90MEAN CELL HGB 30.5MEAN CELL HGB CONCENTRATION 33.9RED CELL DIS TRIBUTION WIDTH 13.5PLATELET COUNT 172MEAN PLATELET VOLUME 11.1NEUTROPHIL % 48.7IMMATURE GRANULOCYTE % 0.6L YMPHOCYTE % 31.9MONOCYTE % 17.3 HEOSINOPHIL % 0.9BASOPHIL % 0.6NUCLEATED RBC % 0.0NEUTROPHIL # 1.60IMMATURE GRANULOCYTE # 0.020LYMPHOCYTE # 1.05 LMONOCYTE # 0.57EOSINOP HIL # 0.03BASOPHIL # 0.02NUCLEATED RBC # 0.000 BASIC M ETABOLIC PANEL (11/09/21 05:14)SODIUM 136POTASSIUM 3.9 CH LORIDE 102CARBON DIOXIDE 27ANION GAP 10.9 DGLUCOSE 177 D H D HBLOOD UREA NITROGEN 19GLOMERULAR FILTRATION RAT E >=60 max estimateCREATININE 1.1BUN/CREATININE RATIO 17.3C ALCIUM 8.3 L MAG (11/09/21 05:14)MAGNESIUM 1.7 L GLU BED (0 11/09/21 04:40)GLUBED 168 H GLU BED (11/08/21 21:22)GLUBE D 253 H GLU BED (11/08/21 15:44)GLUBED 162 H GLU BED ( 11:06)GLUBED 196 H -- ATTESTATION -- TIME SPENT ON PATIENT CARE: - Direct 30 minutes CARE ACTIVITIES / CARE COORDINATION: - I have reviewed the history and repeated the ingram elements - I have seen and examined this patient - I have reviewed the progress in the clinical cou rse since the lastexamination - I have discussed the patie nt's condition with other members of the care team AD DITIONAL DETAIL:I HAVE SPENT 30 MINUTES IN THE EVALUATION AND TREATMENT OF THIS PATIENT. Signed in [facility] er by Nini Doan MD on 11/09/21 at 09:30 at 0930ATTENTION EDITS and/or ADDENDA must be ma de in Patient Keeper for this note. Edits and ammen dments created in [facility] are not visible in Patien t Keeper or the legal medical record (HPF). RPT #: [id number] OF REPORT PRProgress [id number]:27:[id number] Available for patient [id number]:31:3 5 2021-11-08 [id number]:15:00 [facility] [place] 13:15:00 [facility] REPO RT #: [id number] REPORT STATUS: Signed DATE: 11/08/21 T EDUARDO: 1315 PATIENT: DANIELE HINKLE UNIT #: [id number] ROOM #: NC.2107 BED: 1 : 3 AGE: 71 SEX: F ATTEND: Erasmo Fay MD ADM DT: AUTHOR: Erasmo Fay MD ATTENTION EDITS and/or ADDENDA must be made i n Patient Keeper for this note. Edits and ammendments c reated in [employer] are not visible in Patient Keeper or the legal medical record ([facility]). -- ASSESSMENT AND PLAN -- PROBLEMS : 1: Type 1 diabetes mellitus with ketoacidosis, uncontrolle dA/P: likely due to missing medicationsendocrine consultaotnhydrateinsulinanion gap resolvedre[la ce electrolyteshome healthPT OT eval 2: Type 1 diab etes mellitus with diabetic chronic kidney disease 3: Type 1 diabetes mellitus with diabetic polyneuropathy 4 : Diabetic visual loss: better eye: profound vision impairm ent; lesser eye:near-total vision impairment, with macular e zaki, with retinopathy, associatedwith type 1 diabetes yuliet itus 5: Mixed hyperlipidemia 6: Hypertension 7: CAD (cor onary artery disease) 8: Peripheral arterial disease 9 : Chronic kidney disease, stage 3aA/P: due to DM 10: NSTEM I (non-ST elevated myocardial infarction)A/P: troponin jose alejandro nding down, no chest painhas known diffuse CAD that is not a mmenable to revascularizationcardiology followingstill on he yecenia -- SUBJECTIVE -- HPI: feeling better no new complai nts -REVIEW OF SYSTEMS- GENERAL: Negative for fever, chills, unexplained weight loss, and fatigueRESPIRATORY: Negative for shortness of breath, cough, chest congestion , wheezing, hemoptysis, and pleuritic painCARDIOVASCULAR: Ne gative for chest pain, palpitations, dyspnea on exertion, o rthopnea, edema and dizzinessGASTROINTESTINAL: Negative fo r abdominal pain, nausea, vomiting, diarrhea, constipation, and anorexiaGENITOURINARY: Negative for dysuria, mulugeta quency, or urgency. No gross hematuria.SKIN: Negative for r ashes. No pruritus. -- OBJECTIVE -- VITALS (11/07 13:15 - 11/08 13:15):Temperature F: 98.8Temperature C: 37.0 (3 6.7 - 37.2)Temperature source: OralPulse Rate 79 (79 - 103)Respiratory rate: 15 (11 - 41)BP: 98/51 (70/ 41 - 134/74)Blood pressure source: Monitor I/Os (10/29 0 07:00 - 11/08 07:00):Net 1,153.00Intake 1,753.00Output 6 00 -EXAM- GENERAL: Well developed, well nourished, in no a pparent distress.NECK: No masses, no thyromegaly, no abn ormal cervical nodes, trachea midline.LUNGS: Respirati ons unlabored, clear to auscultation bilaterally, no wheezing, no ronchi, no ralesHEART: Regular rate and rhyth m, normal S1, S2, no murmurs, no rubs, no gallops, no clic ks.ABDOMEN: + BS soft, flat, nontender, the liver and spleen are not palpable, no palpable masses, no herniasEXTREMIT IES: No clubbing, cyanosis or edemaNEUROLOGICAL: Alert a nd oriented to person, place, and time. no facial asymmetry, normal speech. Moves all extremities symmetrically, nor mal tone,PULSES: Normal carotid pulses without brui ts. Normal pulses bilaterally at radial, dorsalis pedis and posterior tibial locations.SKIN: No pallor, no jaundice, n o rash, normal turgorLYMPH NODES: None palpable cervical , axillary, supraclavicular or inguinal locationsPSYCHIATRIC : Mood euthymic. Affect congruent, Normal eye contact, normal speech. thought process and thought content inta ct. -- DATA -- MEDICATIONS HEPARIN SODIUM,PORCINE/D5W 73341 UNIT IV TITRATEclopidogreL 75 MG PO DAILYRANOLAZINE 1000 MG PO [id number] SODIUM,PORCINE 2000 UNIT IV ASDIR ( PRN)ASPIRIN 81 MG PO DAILYHEPARIN SODIUM,PORCINE 3500 UNIT I V ASDIR (PRN)DONEPEZIL HCL 5 MG PO BEDTIMEISOSORBIDE DIN ITRATE 5 MG PO BID 9A 5PMUPIROCIN 1 APPLIC NASAL BIDMETOPROL OL TARTRATE 12.5 MG PO [id number] GLARGINE 20 UNITS SUBQ Q AMGLUCAGON 1 MG IM ASDIR (PRN)CHOLECALCIFEROL (VITAMIN D3) 90901 UNIT PO QPMMIDODRINE HCL 5 MG PO TIDPHOSPHORUS 500 MG PO C MEALSEZETIMIBE 10 MG PO DAILYDEXTROSE 50%-WATER 50 ML IV ASDIRINSULIN LISPRO 0 UNITS SUBQ AC HSNOREPINEPH RINE BIT/0.9 % NACL 8 MG IV ASDIRDEXTROSE 50%-WATER 5 0 ML IV ASDIR LABS GLU BED (11/08/21 11:06)GLUBED 196 H LIPID PROFILE (CORONARY RISK) (11/08/21 05:43)TRIGLYCE RIDES 143CHOLESTEROL 179CHOLESTEROL/HDL RATIO 3HDL CH OLESTEROL 63 HLIPOPROTEIN LDL 96 MAG (11/08/21 05:43)MAGNE SIUM 1.8 PHOS (11/08/21 05:43)PHOSPHOROUS 2.2 L PTT (10/29 05/22 05:43)THROMBOPLASTIN TIME PARTIAL 65.5 H CBC W/A UTO DIFF (11/08/21 05:43)WHITE BLOOD CELL 5.2RED BLOOD CE LL 3.05 LHEMOGLOBIN 9.4L LHEMATOCRIT 27.1L LMEAN CELL VO LUME 89MEAN CELL HGB 30.8MEAN CELL HGB CONCENTRATION 34.7RED CELL DISTRIBUTION WIDTH 13.9PLATELET COUNT 191MEAN PL ATELET VOLUME 11.1NEUTROPHIL % 64.1IMMATURE GRANULOCYTE % 0.4LYMPHOCYTE % 21.1MONOCYTE % 12.6EOSINOPHIL % 1.2 BASOPHIL % 0.6NUCLEATED RBC % 0.0NEUTROPHIL # 3. 32IMMATURE GRANULOCYTE # 0.020LYMPHOCYTE # 1.09 LMONOCYTE # 0.65EOSINOPHIL # 0.06BASOPHIL # 0.03NUCLEATED RB C # 0.000 BASIC METABOLIC PANEL (11/08/21 05:43)SODIUM 137 POTASSIUM 3.4L LCHLORIDE 107CARBON DIOXIDE 25ANION GAP 8. 4GLUCOSE 96BLOOD UREA NITROGEN 19GLOMERULAR FILTRATION RA TE 57 LCREATININE 1.2BUN/CREATININE RATIO 15.8CALCIUM 7.8 L PHOS (11/07/21 22:30)PHOSPHOROUS 1.8 L BASIC METABOLI C PANEL (11/07/21 22:30)SODIUM 137POTASSIUM 4.1CHLORIDE 108H HCARBON DIOXIDE 22ANION GAP 11.1GLUCOSE 156D H D HBLOOD UREA NITROGEN 22GLOMERULAR FILTRATION RATE 48 LC REATININE 1.4BUN/CREATININE RATIO 15.7CALCIUM 7.9 L GLU BE D (11/07/21 21:02)GLUBED 166 H PTT (11/07/21 17:30)THROMBOPL ASTIN TIME PARTIAL 66.2 H GLU BED (11/07/21 16:47)GLUBED 24 8 H Signed in PatientKeeper by Erasmo Fay MD on 0 11/08/21 at 13:21 at 1321ATTENTION EDITS and/or ADDENDA must be ma de in Patient Keeper for this note. Edits and ammen dments created in [employer] are not visible in Patien t Keeper or the legal medical record (HPF). RPT #: [id number] OF REPORT PRProgress [id number] Available for patient [id number]:3 7 2021-11-08 [id number]:00 [facility], [place] 08:55:00 CENTER ([facility])Cardiology Progress Notes REPORT #: [id number] REPORT STATUS: Signed DATE: 11/08/21 T EDUARDO: [id number] PATIENT: DANIELE HINKLE UNIT #: [id number] ROOM #: [id number] BED: 1 : 3 AGE: 71 SEX: F ATTEND: Erasmo Fay MD ADM DT: AUTHOR: Andreina Oliva MD ATTENTION EDITS and/or ADDENDA must be made i n Patient Keeper for this note. Edits and ammendments c reated in [employer] are not visible in Patient Keeper or the legal medical record (HPF). -- ASSESSMENT AND PLAN -- PROBLEMS : 1: NSTEMI (non-ST elevated myocardial infarction)A/P: - ei ther 2/2 CAD progression or 2/2 demand isch in setting of DKA- pt with known sev diffuse non-revascularizable CAD- Tn peaked at 4.8k 11/06/21 and is trending down- ECG - sinus rhythm w/o ischemic changes- ef down from 50% 04/08/21 to 40 % 11/07/21- iv hep gtt since 11/06 - continue until 11/08 11:00 pm- resume ASA 81/plavix 77- resume lopr/isordil if BP allo ws- h/o statin-induced myalgias; zetia 10 for now- poor px; cont with med mgmt- discussed above with pt and kandi hernandez, lachelle choudhary and dominik gonzalez; all ?sansweredok to d/c home tomorrow if asymp 2: CHF (congestive heart failu re)A/P: -newly doc shf: ?2/2 CAD progression vs 2/2 ac i llness-ef down from 50% 04/08/21 to 40% 11/07/21-prn iv las- bb 3: HypotensionA/P: off levomidodrine 5 TID - hold i f SBP>130 4: CAD (coronary artery disease)A/P: - known sev diffuse non-revascularizable CAD- re medical mxm- given uncontrolled DM, would not opt for surg revascul arization- lopr/isord if BP allows- resume asp/plav/ranexa/ zet 5: Diabetic keto-acidosisA/P: - iv ins gtt- A1C 13 04/20 yet >14 10/20- rec strict glycemic control- no longer in DKA- compliance with meds encouraged- endo following 6: Non compliance w medication regimenA/P: - encouraged again strict compliance with all meds 7: Hyperlipidemi aA/P: - not on statin due to severe myalgias- c/w home zetia 10 qd- FLP 96/63/143 11/19 8: Severe protein-calorie malnutr itionA/P: nutrition csltBMI 17.6 -- SUBJECTIVE -- PATIENT NARRATIVE:No acute events. -- OBJECTIVE -- VITAL S (11/07 08:56 - 11/08 08:56):Temperature F: 98.8 (98.2 - 98.8)Temperature C: 37.1 (36.7 - 37.2)Temperatur e source: OralPulse Rate 89 (76 - 103)Respiratory rate: 18 (11 - 41)BP: 117/69 (70/41 - 134/74)Blood pressure cleve rce: Monitor I/Os (11/07 07:00 - 11/08 07:00):Net 1,1 53.00Intake 1,753.00Output 600 -EXAM- GENERAL: Well develop ed, THINHEAD: Normocephalic, atraumatic.NECK: trache a midline.CHEST: Grossly normal appearance.LUNGS: NORMAL CHEST WALL MOVEMENTHEART: NO TACHYCARDIAABDOMEN: NON-DISTENDEDNEUROLOGICAL: NORMAL SPEECHPSYCHIAT ALPESH: Alert and oriented to time, person, place -- DATA -- M EDICATIONS HEPARIN SODIUM,PORCINE/D5W 68338 UNIT IV TITRATE clopidogreL 75 MG PO DAILYRANOLAZINE 1000 MG PO [id number] SODIUM,PORCINE 2000 UNIT IV ASDIR (PRN)ASPIRIN 8 1 MG PO DAILYHEPARIN SODIUM,PORCINE 3500 UNIT IV ASDIR (PRN)DONEPEZIL HCL 5 MG PO BEDTIMEISOSORBIDE DIN ITRATE 5 MG PO BID 9A 5PMUPIROCIN 1 APPLIC NASAL BIDMETOPROL OL TARTRATE 12.5 MG PO Q12HR SODIUM PHOSPHATE with/in SODIUM CHLORIDE 0.9% 20 MM IV ASDIR (PRN)INSULIN GLARGINE 20 UNI TS SUBQ QAMGLUCAGON 1 MG IM ASDIR (PRN)MAGNESIUM 1 GM IV ASDIR (PRN)CHOLECALCIFEROL (VITAMIN D3) 05708 UNIT PO QPMPOTASSIUM BICARBONATE/CIT AC 20 MEQ PO ASDIRS OD BIPHOS/POT PHOSPHATE 1 PKT PO ASDIR (PRN)POTASSI UM CHLORIDE with/in SODIUM CHLORIDE 100 mL BAG 10 MEQ IV ASD IRMAGNESIUM 1 GM IV Q1H (PRN)MAGNESIUM 1 GM IV Q1H (PRN)SODI UM PHOSPHATE with/in SODIUM CHLORIDE 0.9% 15 MM IV ASDIR (PRN)DEXTROSE 50%-WATER 50 ML IV ASDIRPOTASSIUM CHLORIDE 20 MEQ IV ASDIRSODIUM PHOSPHATE with/in SODIUM CHLO RIDE 0.9% 30 MM IV ASDIR (PRN)INSULIN LISPRO 0 UNITS SUBQ AC HSPOTASSIUM BICARBONATE/CIT AC 20 MEQ PO ASDIR P RNMIDODRINE HCL 5 MG PO TIDNOREPINEPHRINE BIT/0.9 % NACL 8 M G IV ASDIRDEXTROSE 50%-WATER 50 ML IV ASDIR LABS LIPI D PROFILE (CORONARY RISK) (11/08/21 05:43)TRIGLYCERIDES 143CHOLESTEROL 179CHOLESTEROL/HDL RATIO 3HDL CHO LESTEROL 63 HLIPOPROTEIN LDL 96 PHOS (11/08/21 05:43)PHOSPHO JODIE 2.2 L PTT (11/08/21 05:43)THROMBOPLASTIN TIME PARTIAL 65.5 H CBC W/AUTO DIFF (11/08/21 05:43)WHITE BLOOD CELL 5.2 RED BLOOD CELL 3.05 LHEMOGLOBIN 9.4L LHEMATOCRIT 27.1L LME AN CELL VOLUME 89MEAN CELL HGB 30.8MEAN CELL HGB CONCENT RATION 34.7RED CELL DISTRIBUTION WIDTH 13.9PLATELET COU NT 191MEAN PLATELET VOLUME 11.1NEUTROPHIL % 64.1IMMATURE GR ANULOCYTE % 0.4LYMPHOCYTE % 21.1MONOCYTE % 12.6EOSINOPHIL % 1.2BASOPHIL % 0.6NUCLEATED RBC % 0.0NEUTROPHIL # 3.32IMMATUR E GRANULOCYTE # 0.020LYMPHOCYTE # 1.09 LMONOCYTE # 0.65EOSINOPHIL # 0.06BASOPHIL # 0.03NUCLEATED RB C # 0.000 BASIC METABOLIC PANEL (11/08/21 05:43)SODIUM 137 POTASSIUM 3.4L LCHLORIDE 107CARBON DIOXIDE 25ANION GAP 8. 4GLUCOSE 96BLOOD UREA NITROGEN 19GLOMERULAR FILTRATION RA TE 57 LCREATININE 1.2BUN/CREATININE RATIO 15.8CALCIUM 7.8 L PHOS (11/07/21 22:30)PHOSPHOROUS 1.8 L BASIC METABOLI C PANEL (11/07/21 22:30)SODIUM 137POTASSIUM 4.1CHLORIDE 108H HCARBON DIOXIDE 22ANION GAP 11.1GLUCOSE 156D H D HBLOOD UREA NITROGEN 22GLOMERULAR FILTRATION RATE 48 L CREATININE 1.4BUN/CREATININE RATIO 15.7CALCIUM 7.9 L GLU BE D (11/07/21 21:02)GLUBED 166 H PTT (11/07/21 17:30)THROMBOP LASTIN TIME PARTIAL 66.2 H GLU BED (11/07/21 16:47)GLUBED 24 8 H PTT (11/07/21 11:30)THROMBOPLASTIN TIME PARTIAL 67.7 D H GLU BED (11/07/21 11:30)GLUBED 216 H Signed in [facility] by Andreina Oliva MD on 11/08/21 at 12:27 Electron ically Signed by Andreina Oliva MD on 11/08/21 at 1227ATTENTION EDITS and/or ADDENDA must be ma de in Patient Keeper for this note. Edits and ammen dments created in [facility] are not visible in Patien t Keeper or the legal medical record (HPF). RPT #: [id number] OF REPORT PRProgress [id number] Available for patient [id number] 3 2021-11-08 [id number]:04:00 [facility] [place] 08:04:00 [facility] ([facility])Endocrinology Progress Note REPORT #: [id number] REPORT STATUS: Signed DATE: 11/08/21 T EDUARDO: 0804 PATIENT: DANIELE HINKLE UNIT #: [id number] ROOM #: NC.2107 BED: 1 : 3 AGE: 71 SEX: F ATTEND: Erasmo Fay MD ADM DT: AUTHOR: Nini Doan MD ATTENTION EDITS and/or ADDENDA must be made i n Patient Keeper for this note. Edits and ammendments c reated in [facility] are not visible in Patient Keeper or the legal medical record (HPF). -- ASSESSMENT AND PLAN -- PROBLEMS : 1: Type 1 diabetes mellitus with ketoacidosis without coma A/P: UNCONTROLLED (HGBA1C>15.5%,HYPERGLYCEMIA) TYPE I DM IN DKA SECONDARY TONON-COMPLIANCE WITH INSULIN. DKA RES OLVED: FBS=96 HS IYVMQYE=052 AG= AG=8.4.OBSERVE ON SQ B JORGE/BOLUS INSULIN. MUST HAVE A BEDTIME SNACK. 2: Vitamin D deficiencyA/P: 25-OH VIT D=18. OBSERVE ON LOADIN G DOSE OF VIT D3. -- SUBJECTIVE -- CHIEF COMPLAINT:HYPERGL YCEMIA, DKA HPI: EVENTS NOTED: OUT OF ICU. SITTING IN BED HAVINGBREAKFAST. -REVIEW OF SYSTEMS- GENERAL: Ne gative for feverRESPIRATORY: Negative for dyspneaCARDIOVASC ULAR: Negative for chest painGASTROINTESTINAL: Negativ e for abdominal pain or nausea. No emesis.ENDOCRINE: N egative for polydipsia, polyuria -- OBJECTIVE -- VITALS ( 08:05 - 11/08 08:05):Temperature F: 98.8 (98.2 - 98.8)Te mperature C: 36.7 (36.7 - 37.2)Temperature source: OralPul se Rate 93 (76 - 103)Respiratory rate: 18 (11 - 41)BP: 131/ 74 (70/41 - 180/79)Blood pressure source: Monitor I/Os (10/29 0 07:00 - 11/08 07:00):Net 1,153.00Intake 1,753.00Output 6 00 -EXAM- GENERAL: Well developed, THINHEAD: Normocephalic , atraumatic.NECK: trachea midline.CHEST: Grossly normal appearance.LUNGS: NORMAL CHEST WALL MOVEMENTHEAR T: NO TACHYCARDIAABDOMEN: NON-DISTENDEDNEUROLOGICAL: N ORMAL SPEECHPSYCHIATRIC: Alert and oriented to time, p erson, place -- DATA -- MEDICATIONS HEPARIN SODIUM,PORC INE/D5W 06198 UNIT IV TITRATEclopidogreL 75 MG PO DAILYR ANOLAZINE 1000 MG PO [id number] SODIUM,PORCINE 2000 UNIT IV ASDIR (PRN)ASPIRIN 81 MG PO DAILYHEPARIN SODIUM,PORCIN E 3500 UNIT IV ASDIR (PRN)ISOSORBIDE DINITRATE 5 MG PO BID 9 A 5PMUPIROCIN 1 APPLIC NASAL BIDMETOPROLOL TARTRAT E 12.5 MG PO [id number] PHOSPHATE with/in SODIUM CHLORIDE 0.9% 20 MM IV ASDIR (PRN)INSULIN GLARGINE 20 UNITS SUBQ QAM GLUCAGON 1 MG IM ASDIR (PRN)MAGNESIUM 1 GM IV ASDIR (PRN)CHOLECALCIFEROL (VITAMIN D3) 63430 UNIT PO QPMPOTASSIUM BICARBONATE/CIT AC 20 MEQ PO ASDIRS OD BIPHOS/POT PHOSPHATE 1 PKT PO ASDIR (PRN)POTASSI UM CHLORIDE with/in SODIUM CHLORIDE 100 mL BAG 10 MEQ IV ASD IRMAGNESIUM 1 GM IV Q1H (PRN)MAGNESIUM 1 GM IV Q1H (PRN)SODI UM PHOSPHATE with/in SODIUM CHLORIDE 0.9% 15 MM IV ASDIR (PRN)DEXTROSE 50%-WATER 50 ML IV ASDIRPOTASSIUM CHLORIDE 20 MEQ IV ASDIRSODIUM PHOSPHATE with/in SODIUM CHLO RIDE 0.9% 30 MM IV ASDIR (PRN)INSULIN LISPRO 0 UNITS SUBQ AC HSPOTASSIUM BICARBONATE/CIT AC 20 MEQ PO ASDIR P RNMIDODRINE HCL 5 MG PO TIDNOREPINEPHRINE BIT/0.9 % NACL 8 M G IV ASDIRDEXTROSE 50%-WATER 50 ML IV ASDIR LABS LIPI D PROFILE (CORONARY RISK) (11/08/21 05:43)TRIGLYCERIDES 143CHOLESTEROL 179CHOLESTEROL/HDL RATIO 3HDL CHO LESTEROL 63 HLIPOPROTEIN LDL 96 PHOS (11/08/21 05:43)PHOSPHO JODIE 2.2 L PTT (11/08/21 05:43)THROMBOPLASTIN TIME PARTIAL 65.5 H CBC W/AUTO DIFF (11/08/21 05:43) WHITE BLOOD CELL 5. 2RED BLOOD CELL 3.05 LHEMOGLOBIN 9.4L LHEMATOCRIT 27.1L LME AN CELL VOLUME 89MEAN CELL HGB 30.8MEAN CELL HGB CONCENT RATION 34.7RED CELL DISTRIBUTION WIDTH 13.9PLATELET COU NT 191MEAN PLATELET VOLUME 11.1NEUTROPHIL % 64.1IMMATURE G RANULOCYTE % 0.4LYMPHOCYTE % 21.1MONOCYTE % 12.6EOSINOPHIL % 1.2BASOPHIL % 0.6NUCLEATED RBC % 0.0NEUTROPHIL # 3.32IMMATURE GRANULOCYTE # 0.020LYMPHOCYTE # 1.0 9 LMONOCYTE # 0.65EOSINOPHIL # 0.06BASOPHIL # 0.03NUCLEATED RBC # 0.000 BASIC METABOLIC PANEL (11/08/21 05:43)SODI UM 137POTASSIUM 3.4L LCHLORIDE 107CARBON DIOXIDE 25 ANION GAP 8.4GLUCOSE 96BLOOD UREA NITROGEN 19GLOMERULAR FI LTRATION RATE 57 LCREATININE 1.2BUN/CREATININE RATIO 15.8 CALCIUM 7.8 L PHOS (11/07/21 22:30)PHOSPHOROUS 1.8 L BASIC METABOLIC PANEL (11/07/21 22:30)SODIUM 137POTASSIUM 4.1CHL ORIDE 108H HCARBON DIOXIDE 22ANION GAP 11.1GLUCOSE 156D H D HBLOOD UREA NITROGEN 22GLOMERULAR FILTRATION RATE 48 LC REATININE 1.4BUN/CREATININE RATIO 15.7CALCIUM 7.9 L GLU B ED (11/07/21 21:02)GLUBED 166 H PTT (11/07/21 17:30)THROMBOPLASTIN TIME PARTIAL 66.2 H GLU BED (11/07/21 16:47)GLUBED 248 H PTT (11/07/21 11:30)THROMBOPL ASTIN TIME PARTIAL 67.7 D H GLU BED (11/07/21 11:30)GLUBED 216 H -- ATTESTATION -- TIME SPENT ON PATIENT CARE: - Dir ect 30 minutes CARE ACTIVITIES / CARE COORDINATION: - I have reviewed the history and repeated the ingram elemen ts - I have seen and examined this patient - I have reviewed the progress in the clinical course since the lastex amination - I have discussed the patient's condition with ot her members of the care team ADDITIONAL DETAIL:I HAVE SPENT 30 MINUTES IN THE EVALUATION AND TREATMENT OF THIS PATIENT. Signed in PatientKeeper by Nini Doan MD on 03/22 at 08:09 at 0809ATTENTION EDITS and/or ADDENDA must be ma de in Patient Keeper for this note. Edits and ammen dments created in [facility] are not visible in Patie nt Keeper or the legal medical record ([facility]). RPT #: [id number] OF REPORT PRProgress [id number] Available for patient [id number] 1 2021-11-07 [id number] [facility] [place] 22:14:00 [place] ([facility])Family Medicine Progress Note REPO RT #: [id number] REPORT STATUS: Signed DATE: 11/07/21 T EDUARDO: 2214 PATIENT: DANIELE HINKLE UNIT #: [id number] ROOM #: NC.2107 BED: 1 : 3 AGE: 71 SEX: F ATTEND: Erasmo Fay MD ADM DT: AUTHOR: Erasmo Fay MD ATTENTION EDITS and/or ADDENDA must be made i n Patient Keeper for this note. Edits and ammendments c reated in [facility] are not visible in Patient Keeper or the legal medical record ([facility]). 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 4: Diabetic visual loss: better eye: profound visio n impairment; lesser eye:near-total vision impairm ent, with macular edema, with retinopathy, associatedwith type 1 diabetes mellitus 5: Mixed hyperlipidemia 6: Hyp ertension 7: CAD (coronary artery disease) 8: Peripheral a rterial disease 9: Chronic kidney disease, stage 3aA/P: due to DM 10: NSTEMI (non-ST elevated myocardial infarctio n)A/P: troponin trending down, no chest painhas known d iffuse CAD that is not ammenable to revascularizationcardio logy following -- SUBJECTIVE -- HPI:feeling better, h ad severee hypoglycemia early this morning,no chest pain no SOB daughter at bedside , she has noted that her mot hers memory has deteriorated -REVIEW OF SYSTEMS- GENERAL: Ne gative for fever, chills, unexplained weight loss, and fatigueRESPIRATORY: Negative for shortness of br eath, cough, chest congestion, wheezing, hemoptysis, a nd pleuritic painCARDIOVASCULAR: Negative for chest pain, palpitations, dyspnea on exertion, orthopnea, ed venancio and dizzinessGASTROINTESTINAL: Negative for abdomina l pain, nausea, vomiting, diarrhea, constipation, and anorexiaGENITOURINARY: Negative for dysuria, mulugeta quency, or urgency. No gross hematuria.SKIN: Negative for r ashes. No pruritus. -- OBJECTIVE -- VITALS (11/06 22:14 - 11/07 22:14):Temperature F: 98.8 (97.7 - 98.8)Temperat ure C: 37.2Temperature source: OralPulse Rate 83 (68 - 103)Respiratory rate: 18 (11 - 52)BP: 110/64 (7 0/41 - 181/98)Blood pressure source: Monitor I/Os (07/0 9 07:00 - 11/07 07:00):Net 358.00Intake 1,458.00Output 1,1 00 -EXAM- GENERAL: Well developed, well nourished, in no a pparent distress.NECK: No masses, no thyromegaly, no abn ormal cervical nodes, trachea midline.LUNGS: Respirati ons unlabored, clear to auscultation bilaterally, no wheezing, no ronchi, no ralesHEART: Regular rate and rhyth m, normal S1, S2, no murmurs, no rubs, no gallops, no clic ks.ABDOMEN: + BS soft, flat, nontender, the liver and spleen are not palpable, no palpable masses, no herniasEXTREMIT IES: No clubbing, cyanosis or edemaNEUROLOGICAL: Alert a nd oriented to person, place, and time. no facial asymmetry, normal speech. Moves all extremities symmetrically, nor mal tone,PULSES: Normal carotid pulses without bruit s. Normal pulses bilaterally at radial, dorsalis pedis and posterior tibial locations.SKIN: No pallor, no jaundice, n o rash, normal turgorLYMPH NODES: None palpable cervical , axillary, supraclavicular or inguinal locationsPSYCHIATRIC : Mood euthymic. Affect congruent, Normal eye contact, normal speech. thought process and thought content inta ct. -- DATA -- MEDICATIONS HEPARIN SODIUM,PORCINE/D5W 62298 UNIT IV TITRATEHEPARIN SODIUM,PORCINE 2000 UNIT IV ASDIR (PRN)HEPARIN SODIUM,PORCINE 3500 UNIT IV ASDIR ( PRN)SODIUM PHOSPHATE with/in SODIUM CHLORIDE 0.9% 20 MM IV ASDIR (PRN)INSULIN GLARGINE 20 UNITS SUBQ QAMGLUCAGON 1 MG IM ASDIR (PRN)CHOLECALCIFEROL (VITAMIN D3) 78820 UN IT PO QPMPOTASSIUM CHLORIDE with/in SODIUM CHLORIDE 10 0 mL BAG 10 MEQ IV ASDIRPOTASSIUM CHLORIDE 20 MEQ IV ASDIRSO DIUM PHOSPHATE with/in SODIUM CHLORIDE 0.9% 30 MM IV ASDIR (PRN)INSULIN LISPRO 0 UNITS SUBQ AC HSPOTASSIUM BICARBONATE/CIT AC 20 MEQ PO ASDIR PRNDEXTROSE 5 0%-WATER 50 ML IV ASDIRclopidogreL 75 MG PO DAILYRANOLAZINE 1000 MG PO [id number] 81 MG PO DAILYISOSORBIDE DINITRATE 5 MG PO BID 9A 5PMUPIROCIN 1 APPLIC NASAL BIDMETOPROLOL TART RATE 12.5 MG PO [id number] 1 GM IV ASDIR (PRN)POTASSIU M BICARBONATE/CIT AC 20 MEQ PO ASDIRSOD BIPHOS/POT PHOSPHATE 1 PKT PO ASDIR (PRN)MAGNESIUM 1 GM IV Q1H (PRN)M AGNESIUM 1 GM IV Q1H (PRN)SODIUM PHOSPHATE with/in SODIUM C HLORIDE 0.9% 15 MM IV ASDIR (PRN)DEXTROSE 50%-WATER 50 M L IV ASDIRMIDODRINE HCL 5 MG PO TIDNOREPINEPHRINE BIT /0.9 % NACL 8 MG IV ASDIR LABS GLU BED (11/07/21 21:02)GLUBE D 166 H PTT (11/07/21 17:30)THROMBOPLASTIN TIME PARTIAL 66.2 H GLU BED (11/07/21 16:47)GLUBED 248 H PTT (11/07/21 11:30)THROMBOPLASTIN TIME PARTIAL 67.7 D H GLU B ED (11/07/21 11:30)GLUBED 216 H GLU BED (11/07/21 0 7:58)GLUBED 171 H GLU BED (11/07/21 07:33)GLUBED 25 *L GLU B ED (11/07/21 07:31)GLUBED 27 *L PTT (11/07/21 03:55)THROMBOPLASTIN TIME PARTIAL 25.3 BASIC MET ABOLIC PANEL (11/07/21 03:55)SODIUM 143 POTASSIUM 3.8CH LORIDE 112H HCARBON DIOXIDE 25ANION GAP 9.8GLUCOSE 86BLOOD U JACQUE NITROGEN 29H HGLOMERULAR FILTRATION RATE 48 LCRE ATININE 1.4BUN/CREATININE RATIO 20.7 HCALCIUM 7.7 L PROT HROMBIN TIME (11/07/21 03:55)PROTHROMBIN TIME PATIENT 9.8INTERNATIONAL NORMAL RATIO 0.9 TROP-I HIGH SE N (11/07/21 03:55)TROP-I HIGH SENSITIVITY 4198 *H CBC W/AUTO DIFF (11/07/21 03:55)WHITE BLOOD CELL 7.6RED BLOOD CE LL 3.30 LHEMOGLOBIN 10.2L LHEMATOCRIT 29.7L LMEAN CELL V OLUME 90 DMEAN CELL HGB 30.9MEAN CELL HGB CONCENTRATION 3 4.3RED CELL DISTRIBUTION WIDTH 13.3PLATELET COUNT 237MEAN PL ATELET VOLUME 10.8NEUTROPHIL % 70.0IMMATURE GRANULOCYTE % 1.2 HLYMPHOCYTE % 15.9MONOCYTE % 11.8EOSINOPHIL % 0. 7BASOPHIL % 0.4NUCLEATED RBC % 0.0NEUTROPHIL # 5.35IMMATURE GRANULOCYTE # 0.090LYMPHOCYTE # 1.21 LMONOCYTE # 0.90 HEOSINOPHIL # 0.05BASOPHIL # 0.03NUCLEATED RBC # 0.000 PHOS (11/07/21 03:55)PHOSPHOROUS 2.2 L GLU BED (11/07 03:37)GLUBED 95 GLU BED (11/07/21 02:06)GLUBED 140 H GLU BED (11/07/21 01:26)GLUBED 154 H GLU BED ( 00:40)GLUBED 69 L GLU BED (11/06/21 23:28) GLUBE D 109 H GLU BED (11/06/21 22:39)GLUBED 132 H Signed in PatientKeeper by Erasmo Fay MD on 10/29 at 22:18 at 2218ATTENTION EDITS and/or ADDENDA must be ma de in Patient Keeper for this note. Edits and ammen dments created in [facility] are not visible in Patien t Keeper or the legal medical record ([facility]). [facility] #: [id number] OF REPORT PRProgress [id number] Available for patient [id number] 5 2021-11-07 [id number] [facility] [place] 14:24:00 [facility] ([facility])Intensive Care Progress Note REPOR T #: [id number] REPORT STATUS: Signed DATE: 11/07/21 T EDUARDO: 1424 PATIENT: DANIELE HINKLE UNIT #: [id number] ROOM #: TN.IC16 BED: A : 3 AGE: 71 SEX: F ATTEND: Erasmo Fay MD ADM DT: AUTHOR: Lilli Terrell MD ATTENTION EDITS and/or ADDENDA must be made i n Patient Keeper for this note. Edits and ammendments c reated in [facility] are not visible in Patient Keeper or the legal medical record ([facility]). -- ASSESSMENT AND PLAN -- GENERAL ASSESSMENT:[facility] AssessmentDKA, without comaAnion-gap metabolic acidosisAcute renal failurePseudohyponatremiaChronic normocytic anemiaDMHTNDyslipidemiaSevere protein calorie ma lnutrition, BMI 17.6NSTEMI Plan:Neurologic: Awake and alert. Pulmonary: Tolerating RA; supplemental O2 if needed to keep SpO2 > 92%CXR reviewed, No acute process Cardiovascular : Monitor HR, BP.Elevated troponin noted. Cardiology consu lted. Continue to trend troponin.Continue heparin drip .TTE with EF 40 to 45%.Cont home antihypertensives, ASA, P lavix. Hematologic: Monitor H/H, platelets. Transfuse t o keep Hgb > 7. Renal: Monitor UOP, BUN, Cr.Replace electro lytes as needed.Avoid nephrotoxins.ADOLFO improved with volu me resuscitation. Gastrointestinal: Restart diet.An tiemetics PRN Infectious disease: Trend WBC, fever curve F ollow-up cultures. Endocrine: Now off insulin drip. Marialuisa nue subcu insulin.Hgb a1c >14, will need diabetic educationEndocrinology consulted Dispo: ICUCode Status: FullVTE ppx: Heparin drip Will consider transfer from ICU If glucose remains stable and she stays offpress ors. D/w pt. All questions answered.D/w Dr. Fay.Dis cussed on multidisciplinary rounds. Subjective: Patient was briefly hypoglycemic this morning. Was also brie fly onnorepinephrine. Now glucose has improved, and now off norepinephrine. She ismore awake and alert today . HPI: Ms. Hinkle is a 71-year-old woman with a history of diabetes who presentswith nausea and vomiting for a few d ays. She is a poor historian, lethargic.She denies fevers or chills or cough or shortness of breath. When I asked herif she was skipping some of her medications, she stated teresa t she was not eatingdinner regularly. Found to be in DKA. Past medical history: HTN, DM, CAD, retinopathy, diab etic neuropathy,dyslipidemiaPSurgHx: Retinal surgery, hysterectomyFamily history: NoncontributorySocHx : Former smoker Review of systems: 14 point review system negative unless listed above Physical ExamGeneral: NAD, a wake and alertEyes: Anicteric sclerae.Mouth: MMMNeck: Sup ple.CV: Regular rate and rhythm. Normal S1 and S2.Pulm: Good effort, no wheezing or Rales appreciated.Abdomen : Soft, nontender.Extremities: No lower extremity edema. Skin: Warm, dry.Neuro: Awake and alert, no focal neurologica l deficit. Chronic vision loss.Psych: normal mood -- OBJECT MIRTHA -- VITALS (11/06 14:24 - 11/07 14:24):Temperature F : 98.2 (97.7 - 98.3)Temperature source: OralPulse Rate 88 (68 - 93)Respiratory rate: 17 (11 - 52)BP: 101/59 (71/ 45 - 181/98)Blood pressure source: Monitor I/Os ( 07:00 - 11/07 07:00):Net 358.00Intake 1,458.00Output 1,1 00 -- DATA -- MEDICATIONS HEPARIN SODIUM,PORCINE/D5W 88403 UNIT IV TITRATEHEPARIN SODIUM,PORCINE 2000 UNIT IV ASDIR (PRN)HEPARIN SODIUM,PORCINE 3500 UNIT IV ASDIR (PRN)ERGOCALCIFEROL (VITAMIN D2) 66859 UNIT PO ONCE@1015MUPIROCIN 1 APPLIC NASAL BIDSODIUM PHOS PHATE with/in SODIUM CHLORIDE 0.9% 20 MM IV ASDIR (PRN )INSULIN GLARGINE 20 UNITS SUBQ QAMGLUCAGON 1 MG IM ASDIR (PRN)MAGNESIUM 1 GM IV ASDIR (PRN)CHOLECALCIFERO L (VITAMIN D3) 83167 UNIT PO QPMPOTASSIUM BICARBONATE/CIT A C 20 MEQ PO ASDIRSOD BIPHOS/POT PHOSPHATE 1 PKT PO ASDIR (IA N)POTASSIUM CHLORIDE with/in SODIUM CHLORIDE 100 mL BAG 10 M EQ IV ASDIRMAGNESIUM 1 GM IV Q1H (PRN)MAGNESIUM 1 GM I V Q1H (PRN)SODIUM PHOSPHATE with/in SODIUM CHLORIDE 0. 9% 15 MM IV ASDIR (PRN)DEXTROSE 50%-WATER 50 ML IV ASDIRPOTA SSIUM CHLORIDE 20 MEQ IV ASDIR SODIUM PHOSPHATE with/i n SODIUM CHLORIDE 0.9% 30 MM IV ASDIR (PRN)INSULIN LISPRO 0 UNITS SUBQ AC HSPOTASSIUM BICARBONATE/CIT AC 20 MEQ PO ASDIR PRNNOREPINEPHRINE BIT/0.9 % NACL 8 MG IV ASDIRDE XTROSE 50%-WATER 50 ML IV ASDIR LABS PTT (11/07/21 11:30)THROMBOPLASTIN TIME PARTIAL 67.7 D H GLU B ED (11/07/21 11:30)GLUBED 216 H GLU BED (11/07/21 0 7:58)GLUBED 171 H GLU BED (11/07/21 07:33)GLUBED 25 *L GLU B ED (11/07/21 07:31)GLUBED 27 *L BASIC METABOLIC CAMACHO EL (11/07/21 03:55)SODIUM 143POTASSIUM 3.8CHLORIDE 112H HCARBON DIOXIDE 25ANION GAP 9.8GLUCOSE 86BLOOD U JACQUE NITROGEN 29H HGLOMERULAR FILTRATION RATE 48 LCR EATININE 1.4BUN/CREATININE RATIO 20.7 HCALCIUM 7.7 L PTT (11/07/21 03:55)THROMBOPLASTIN TIME PARTIAL 25.3 PROTHROMB IN TIME (11/07/21 03:55)PROTHROMBIN TIME PATIENT 9.8INTE RNATIONAL NORMAL RATIO 0.9 TROP-I HIGH SEN (11/07/21 03:55 )TROP-I HIGH SENSITIVITY 4198 *H CBC W/AUTO DIFF ( 03:55)WHITE BLOOD CELL 7.6RED BLOOD CELL 3.30 LH EMOGLOBIN 10.2L LHEMATOCRIT 29.7L LMEAN CELL VOLUME 90 DME AN CELL HGB 30.9MEAN CELL HGB CONCENTRATION 34.3RED CELL DIS TRIBUTION WIDTH 13.3PLATELET COUNT 237MEAN PLATELET VOLUME 10.8NEUTROPHIL % 70.0IMMATURE GRANULOCYTE % 1.2 HLYMPHOCYTE % 15.9 MONOCYTE % 11.8EOSINOPHIL % 0.7BASOPHIL % 0.4NUCLEATED RBC % 0.0NEUTROPHIL # 5.35IMMATURE GRANULOCYTE # 0.090LYMPHOCYTE # 1.21 LMONOCYTE # 0.90 HEOSIN OPHIL # 0.05BASOPHIL # 0.03NUCLEATED RBC # 0.000 PHOS (0 11/07/21 03:55)PHOSPHOROUS 2.2 L GLU BED (11/07/21 03:37) GLUBED 95 GLU BED (11/07/21 02:06)GLUBED 140 H GLU BED ( 01:26)GLUBED 154 H GLU BED (11/07/21 00:40)GLUBE D 69 L GLU BED (11/06/21 23:28)GLUBED 109 H GLU BED ( 22:39)GLUBED 132 H PHOS (11/06/21 21:30)PHOSPHOR OUS 2.3 L MAG (11/06/21 21:30)MAGNESIUM 1.8 TROP-I HIGH SE N (11/06/21 21:30)TROP-I HIGH SENSITIVITY 4881 *H BASIC META BOLIC PANEL (11/06/21 21:30)SODIUM 142POTASSIUM 4.3CHLORIDE 111H HCARBON DIOXIDE 25ANION GAP 10.3 DGLUCOSE 131H H BLOOD UREA NITROGEN 32H HGLOMERULAR FILTRATION RATE 38 LCRE ATININE 1.7H HBUN/CREATININE RATIO 18.8CALCIUM 7.7 L GLU BED (11/06/21 21:23)GLUBED 137 H GLU BED (11/06/21 2 0:11)GLUBED 152 H GLU BED (11/06/21 19:33)GLUBED 204 H GLU B ED (11/06/21 18:39)GLUBED 218 H BASIC METABOLIC CAMACHO EL (11/06/21 17:14)SODIUM 142POTASSIUM 4.3CHLORIDE 108H HCARBON DIOXIDE 20L LANION GAP 18.3 HGLUCOSE 293 H HBLOOD UREA NITROGEN 36H HGLOMERULAR FILTRATION RATE 38 LCREATININE 1.7H HBUN/CREATININE RATIO 21.2 HCA LCIUM 7.8 L TROP-I HIGH SEN (11/06/21 17:14)TROP-I HIGH SENS ITIVITY 3743 *H PHOS (11/06/21 17:14)PHOSPHOROUS 3.7 COV ID 19 INH AG (11/06/21 17:00)COVID 19 INHOUSE AG NEGATIVE GLU BED (11/06/21 16:33)GLUBED 352 H VENOUS BLOOD GAS (0 11/06/21 16:22)VENOUS BLOOD GAS PH 7.19 LVENOUS BLOOD GAS PCO2 37 LVENOUS BLOOD GAS PO2 45 HVBG HCO3 14 LVBG BASE EXCESS -14 LVENOUS BLOOD GAS TYPE VenousVENOUS BLOOD GAS FI O2 28.0VBG VENT MODE NCVENOUS BLOOD GAS SITE A-Line GLU BED (11/06/21 15:32)GLUBED 374 H GLU BED (11/06/21 14:27)GLUBE D 425 *H Signed in PatientKeeper by Lilli Terrell MD on at 15:03 Electronically Signed by Lilli Terrell MD o n 11/07/21 at 1503ATTENTION EDITS and/or ADDENDA must be ma de in Patient Keeper for this note. Edits and ammen dments created in Uniplaces are not visible in Patien t Keeper or the legal medical record (HPF). RPT #: [id number] OF REPORT PRProgress [id number] Available for patient [id number]:04:0 9 2021-11-07 [id number] [facility], [place] 09:43:00 [facility] ([facility])Endocrinology Progress Note REPORT #: [id number] REPORT STATUS: Signed DATE: 11/07/21 T EDUARDO: 0943 PATIENT: DANIELE HINKLE UNIT #: [id number] ROOM #: NC.IC16 BED: A : 3 AGE: 71 SEX: F ATTEND: Erasmo Fay MD ADM DT: AUTHOR: Nini Doan MD ATTENTION EDITS and/or ADDENDA must be made i n Patient Keeper for this note. Edits and ammendments c reated in Uniplaces are not visible in Patient Keeper or the legal medical record (HPF). -- ASSESSMENT AND PLAN -- PROBLEMS : 1: Type 1 diabetes mellitus with ketoacidosis without coma A/P: UNCONTROLLED (HGBA1C>14%,HYPERGLYCEMIA) TYPE I D M IN DKA SECONDARY TONON-COMPLIANCE WITH INSULIN. DKA RES OLVED: HSY=762,25,86 AG=9.8. OBSERVE ONREVISED SQ BASAL /BOLUS INSULIN. MUST HAVE A BEDTIME SNACK. 2: Vitamin D deficiencyA/P: 25-OH VIT D=18. OBSERVE ON LOADIN G DOSE OF VIT D. -- SUBJECTIVE -- CHIEF COMPLAINT:HYPERGLY CEMIA, DKA HPI: EVENTS NOTED: IN ICU. ON RA. OFF INSULIN IP. AMHYPOGLYCEMIA NOTED. SLEEPING COMFORTABLY IN HO SPITAL BED. -REVIEW OF SYSTEMS- GENERAL: UNABLE TO OBTAIN: A SLEEP -- OBJECTIVE -- VITALS (11/06 09:43 - 11/07 09:43): Temperature F: 98.2 (98.0 - 98.3)Temperature source: OralPul se Rate 80 (68 - 108)Respiratory rate: 14 (11 - 52)BP: 108/ 55 (71/45 - 133/76)Blood pressure source: Monitor I/Os (07/0 9 07:00 - 11/07 07:00):Net 358.00Intake 1,458.00Output 1, 100 -EXAM- GENERAL: Well developed, THINHEAD: Normocephalic , atraumatic.NECK: trachea midline.CHEST: Grossly normal appearance. LUNGS: NORMAL CHEST WALL MOVEMENTHEA RT: NO TACHYCARDIAABDOMEN: NON-DISTENDEDNEUROLOGICAL: ASLEEPPSYCHIATRIC: ASLEEP -- DATA -- MEDICATIONS HEPARIN SODIUM,PORCINE/D5W 37760 UNIT IV TITRATEHEPARIN SODIUM,PORCINE 2000 UNIT IV ASDIR (PRN)HEPARIN SODIUM,PORCINE 3500 UNIT IV ASDIR (PRN)SODIUM PH OSPHATE with/in SODIUM CHLORIDE 0.9% 20 MM IV ASDIR (PRN )INSULIN GLARGINE 20 UNITS SUBQ QAMGLUCAGON 1 MG IM ASDIR (PRN)CHOLECALCIFEROL (VITAMIN D3) 52438 UNIT PO QPMDEXTROSE 5%-0.45% SALINE 1000 ML IV .[id number] CHLO RIDE 20 MEQ IV ASDIR(DC'd) MAGNESIUM SULFATE 1 EACH IV ASDIR PRNSODIUM PHOSPHATE with/in SODIUM CHLORIDE 0.9% 30 MM IV ASDIR (PRN)INSULIN LISPRO 0 UNITS SUBQ AC HSPOTASSIUM BICARBONATE/CIT AC 20 MEQ PO ASDIR PRNDEXTROSE 5 0%-WATER 50 ML IV ASDIRMUPIROCIN 1 APPLIC NASAL BIDMAGNESIUM 1 GM IV ASDIR (PRN)POTASSIUM BICARBONATE/CIT AC 20 MEQ P O ASDIRSOD BIPHOS/POT PHOSPHATE 1 PKT PO ASDIR (PRN)MAGNESI UM 1 GM IV Q1H (PRN)MAGNESIUM 1 GM IV Q1H (PRN)SODIUM PHOSP HATE with/in SODIUM CHLORIDE 0.9% 15 MM IV ASDIR (PRN )DEXTROSE 50%-WATER 50 ML IV ASDIRNOREPINEPHRINE BIT/0.9 % NACL 8 MG IV ASDIR LABS GLU BED (11/07/21 07:58)GLUBED 171 H GLU BED (11/07/21 07:33)GLUBED 25 *L GLU BED (11/07/21 0 7:31)GLUBED 27 *L PHOS (11/07/21 03:55)PHOSPHOROUS 2.2 L BAS IC METABOLIC PANEL (11/07/21 03:55)SODIUM 143POTASS IUM 3.8CHLORIDE 112H HCARBON DIOXIDE 25ANION GAP 9.8 GLUCOSE 86BLOOD UREA NITROGEN 29H HGLOMERULAR FILTRATION RATE 48 LCREATININE 1.4BUN/CREATININE RATIO 20.7 HCALCIU M 7.7 L PTT (11/07/21 03:55)THROMBOPLASTIN TIME PARTIAL 25.3 PROTHROMBIN TIME (11/07/21 03:55)PROTHROMBIN MARY JO E PATIENT 9.8INTERNATIONAL NORMAL RATIO 0.9 TROP-I HIGH SE N (11/07/21 03:55)TROP-I HIGH SENSITIVITY 4198 *H CBC W/AUTO DIFF (11/07/21 03:55)WHITE BLOOD CELL 7.6RED BLOOD CE LL 3.30 LHEMOGLOBIN 10.2L LHEMATOCRIT 29.7L LMEAN CELL V OLUME 90 DMEAN CELL HGB 30.9MEAN CELL HGB CONCENTRATION 3 4.3RED CELL DISTRIBUTION WIDTH 13.3PLATELET COUNT 237MEAN PL ATELET VOLUME 10.8NEUTROPHIL % 70.0IMMATURE GRANULOCYT E % 1.2 HLYMPHOCYTE % 15.9MONOCYTE % 11.8EOSINOPHIL % 0. 7BASOPHIL % 0.4NUCLEATED RBC % 0.0NEUTROPHIL # 5.35IMMATURE GRANULOCYTE # 0.090LYMPHOCYTE # 1.21 LMONOCYTE # 0.90 HEOSIN OPHIL # 0.05BASOPHIL # 0.03NUCLEATED RBC # 0.000 GLU BED (11/07/21 03:37)GLUBED 95 GLU BED (11/07/21 02:06)GLUBED 1 40 H GLU BED (11/07/21 01:26)GLUBED 154 H GLU BED ( 00:40)GLUBED 69 L GLU BED (11/06/21 23:28)GLUBED 109 H GLU BED (11/06/21 22:39)GLUBED 132 H PHOS (11/06/21 21:30)PHOSPHOROUS 2.3 L MAG (11/06/21 21:30)MAGN ESIUM 1.8 TROP-I HIGH SEN (11/06/21 21:30)TROP-I HIGH SENS ITIVITY 4881 *H BASIC METABOLIC PANEL (11/06/21 21:30)SO DIUM 142POTASSIUM 4.3CHLORIDE 111H HCARBON DIOXIDE 25 ANION GAP 10.3 DGLUCOSE 131H HBLOOD UREA NITROGEN 32H HGLO MERULAR FILTRATION RATE 38 LCREATININE 1.7H HBUN/CREATI NINE RATIO 18.8CALCIUM 7.7 L GLU BED (11/06/21 21:23)GLUBED 137 H GLU BED (11/06/21 20:11)GLUBED 152 H GLU BED (11/06 19:33)GLUBED 204 H GLU BED (11/06/21 18:39)GLUBE D 218 H TROP-I HIGH SEN (11/06/21 17:14)TROP-I HIGH SENS ITIVITY 3743 *H PHOS (11/06/21 17:14)PHOSPHOROUS 3.7 BAS IC METABOLIC PANEL (11/06/21 17:14)SODIUM 142POTASS IUM 4.3CHLORIDE 108H HCARBON DIOXIDE 20L LANION GAP 18.3 HGLUCOSE 293H HBLOOD UREA NITROGEN 36H HGLOMERUL AR FILTRATION RATE 38 LCREATININE 1.7H HBUN/CREATIN INE RATIO 21.2 HCALCIUM 7.8 L COVID 19 INH AG (11/06/21 17 :00)COVID 19 INHOUSE AG NEGATIVE GLU BED (11/06/21 16:33) GLUBED 352 H VENOUS BLOOD GAS (11/06/21 16:22)VENOUS BLOOD GAS PH 7.19 LVENOUS BLOOD GAS PCO2 37 LVENOUS BLOOD GAS PO2 45 HVBG HCO3 14 LVBG BASE EXCESS -14 L VENOUS BLOOD GAS TYPE VenousVENOUS BLOOD GAS FIO2 28.0VBG VENT MODE NC VENOUS BLOOD GAS SITE A-Line GLU BED (11/06/21 15:32)GL UBED 374 H GLU BED (11/06/21 14:27)GLUBED 425 *H LACTIC ACI D (11/06/21 14:15)LACTIC ACID 1.8 VITB12 (11/06/21 14:15)VIT CERRATO B12 3945 H PHOS (11/06/21 14:15)PHOSPHOROUS 5.1 H BA SIC METABOLIC PANEL (11/06/21 14:15)SODIUM 135POTASS IUM 4.3CHLORIDE 103CARBON DIOXIDE 15L LANION GAP 21. 3 D HGLUCOSE 418*H *HBLOOD UREA NITROGEN 40H HGLOME RULAR FILTRATION RATE 34 LCREATININE 1.9H HBUN/CREATIN INE RATIO 21.1 HCALCIUM 7.7 L TSH (11/06/21 14:15)THYROID STIMULATING HORMONE 0.72 T3UP (11/06/21 14:15)T3 UPTAKE 35.0 T4 (11/06/21 14:15)T4 (THYROXINE) 4.6 L URI NALYSIS COMPLETE (11/06/21 13:30)UA COLOR STRAWUA APPEAR ANCE CLEARUA GLUCOSE DIPSTICK 3+ NATHALIE BILIRUBIN DIPSTI CK NEGATIVEUA KETONE DIPSTICK 2+ NATHALIE SPECIFIC GRAV ITY 1.017UA BLOOD DIPSTICK 1+ NATHALIE PH DIPSTICK 5.0UA PROTEIN DIPSTICK NEGATIVEUA UROBILINOGEN DIPSTICK NEGATIVEUA NITR ITE DIPSTICK NEGATIVEUA LEUKOCYTE ESTERASE DIPSTICK TRACE NATHALIE MICROSCOPIC NEEDED? YES NATHALIE WBC 51-100 NATHALIE RBC 0 -2UA BACTERIA NONE SEENUA SQUAMOUS CELLS RARE UA MUCU S OCCASIONAL GLU BED (11/06/21 12:42)GLUBED 483 *H GLU BED (11/06/21 11:03)GLUBED 593 *H ISTAT BLOOD GAS VE NOUS (11/06/21 10:23)IONIZED CALCIUM 1.13VENOUS BLOOD GAS PH 7.12 *LVENOUS BLOOD GAS PCO2 28 LVENOUS BLOOD GA S PO2 57 HVBG HCO3 9 LVBG BASE EXCESS -20 LVENOUS BLOOD G O2 SAT 79 HTOTAL CO2 CONTENT 10.0 *LHEMOGLOBIN POC 12. 2HEMATOCRIT POC 36.0 LSODIUM POC 128 LPOTASSIUM POC 5.3 HGLU COSE POC > 625 *H BASIC METABOLIC PANEL (11/06/21 10:15)SOD IUM 127L LPOTASSIUM 5.1CHLORIDE 93L LCARBON DIOXIDE 9L LA NION GAP 30.1 HGLUCOSE 680*H *HBLOOD UREA NITROGEN 45H HG LOMERULAR FILTRATION RATE 29 LCREATININE 2.2D H D HBUN/CRE ATININE RATIO 20.5 HCALCIUM 8.8 TROP-I HIGH SEN ( 10:15)TROP-I HIGH SENSITIVITY 289 *H ACETNQL ( 10:15)ACETONE QUAL LARGE H CK (11/06/21 10:15)CR EATINE KINASE (CK) 108 MINOO (11/06/21 10:15)AMYLASE 42 P HOS (11/06/21 10:15)PHOSPHOROUS 7.0 H CBC W/O DIFF ( 11/06/21 10:15)WHITE BLOOD CELL 10.3RED BLOOD CELL 3.60HE MOGLOBIN 11.3L LHEMATOCRIT 34.2L LMEAN CELL VOLUME 95MEAN CELL HGB 31.4MEAN CELL HGB CONCENTRATION 33.0RED CELL DIS TRIBUTION WIDTH 13.2 PLATELET COUNT 248 LIVER FUNCTION CAMACHO EL (11/06/21 10:15)TOTAL PROTEIN 7.3ALBUMIN 3.3 LG LOBULIN 4.0 HBILIRUBIN TOTAL 0.5BILIRUBIN DIRECT 0.2BILIRUBI N INDIRECT 0.3SGOT/AST 25SGPT/ALT 25ALKALINE PHOSPHATASE 9 1 VITD25 (11/06/21 10:15)VITAMIN D 25-HYDROXY 18 L PROTHR OMBIN TIME (11/06/21 10:15)PROTHROMBIN TIME PATIENT 9.9INTE RNATIONAL NORMAL RATIO 0.9 PTT (11/06/21 10:15)THROMBOPLAS TIN TIME PARTIAL 30.2 OSMO (11/06/21 10:15)OSMOLALITY SER UM 339 H GLU BED (11/06/21 10:12)GLUBED > 600 *H -- ATTES TATION -- TIME SPENT ON PATIENT CARE: - Direct 35 minutes CARE ACTIVITIES / CARE COORDINATION: - I have reviewe d the history and repeated the ingram elements - I have s een and examined this patient - I have reviewed the prog ress in the clinical course since the lastexamination - I reeves ve discussed the patient's condition with other mem bers of the care team ADDITIONAL DETAIL:I HAVE SPENT 35 DELIA SUSAN IN THE EVALUATION AND TREATMENT OF THIS PATIENT. Signed in PatientKeeper by Nini Doan MD on 02/19 at 09:49 at 0949ATTENTION EDITS and/or ADDENDA must be ma de in Patient Keeper for this note. Edits and ammen dments created in Uniplaces are not visible in Patien t Keeper or the legal medical record ([facility]). RPT #: [id number] OF REPORT PRProgress [id number] Available for patient [id number]:49:5 7 2021-11-07 [id number] [facility] 09:36:00 [place] [address] PATIENT NAME: DANIELE HINKLE ADMIT D ATE: 11/06/21ACCOUNT NO: [id number] ROOM NO: TN.IC1 6 AGE: 71 REPORT TYPE: eECHO CARDIOGRAM REPORT SEX: F ADMITTING PHYSICIAN:Erasmo spann MD ATTENDING PHYSICIAN:Erasmo Fay MD [id number] DDOP ECHO 2D COMPLETE W/[place] [address] Report o f EchocardiogramName: DANIELE HINKLE Study Date: 11/07/2021 09:36 AMMRN: [id number] Patient Locati on: TN.ICU TN.IC16 AAccount Number: [id number]: [id number] Gender: FemaleAge: 71 yrs Left Ventricle: The le ft ventricle is borderline dilated. There is normal leftventricular wall thickness. Ejection Fractio n = 40-45%. Left ventricularsystolic function is mild to mod erately reduced. There is mild to moderateglobal hypokin esis of the left ventricle. Right Ventricle: The right ventr icle is normal in size and function. Atria: The left atr ial size is normal. Mitral Valve: Calcified mitral apparatus . Mild mitral leaflet calcification.There is mild rey l regurgitation. Tricuspid Valve: RVSP31.2 mmHg. R ight ventricular systolic pressure is mildlyelevated. There is mild tricuspid regurgitation. Aortic Valve: The aortic valve is mildly calcified. The aortic valve istr ileaflet. The aortic valve opens well. No aortic regurgita tion is present. Pulmonic Valve: The pulmonic valve is n ot well visualized. There is nopulmonic valvular regurgi tation. Pericardium/Pleural: There is no pericardial eff usion. MMode/2D Measurements CalculationsIVSd: 1.0 cm L VIDd: 4.0 cm [place] [address] [facility] [place] [address] PATIENT NAME: DANIELE HINKLE LVIDs: 3.4 cm LVPWd: 1.1 cm FS: 16.4 % Ao root diam: 3.1 cmEDV(Teich): 71.4 mlESV(Teich): 46.5 ml Ao root area: 7.8 cm2EF(Teich): 34.9 % LVOT diam: 2.0 cm LVOT area: 3.1 cm2 Doppler Measurements CalculationsMV E max joana: 7 7.1 cm/sec MV V2 max: 82.1 cm/secMV A max joana: 73.9 cm/sec MV max P.7 mmHgMV E/A: 1.0 MV V2 mean: 61.0 cm/sec MV m kami P.6 mmHg MV V2 VTI: 20.2 cm MVA(VTI): 2.5 cm2 Ao V2 max: 106.2 cm/secMV d ec slope: 426.2 cm/sec2 Ao max P.5 mmHgMV dec time: 0. 18 sec Ao V2 mean: 75.2 cm/sec Ao mean P.5 mmHg Ao V2 VTI: 21.1 cm BRITTANIE(I,D): 2.4 cm2 BIRTTANIE(V,D): 2.1 cm2 LV V1 max P.2 mmHg MR max joana: 324.1 cm/secLV V1 mean P.3 mmHg MR max P.1 m mHgLV V1 max: 73.6 cm/secLV V1 mean: 53.3 cm/secLV V1 VTI : 16.5 cm SV(LVOT): 51.0 ml PA V2 max: 84.0 cm/sec PA max P.8 mmHg PA V2 mean: 62.9 cm/s ec PA mean P.7 mmHg PA V2 VTI: 16.5 cm PI end-d joana: 82.9 cm/sec TR max joana: 241.0 cm/sec TR max P.2 mmHg RVSP(TR): 31.2 mmHg [facility] [address] [facility] [address] PATIENT NAME: DANIELE HINKLE RAP systole: 8.0 mmHg RVSP.: 21.7 mmHg Interpretation SummaryThe left ventricle is bord larisa dilated.Left ventricular systolic function is mi ld to moderately reduced. EjectionFraction = 40-45%.Th ere is mild to moderate global hypokinesis of the left ventr icle.The left atrial size is normal.Mild anterior mitral valve leaflet calcification. There is mild mitralregurgitation.There is mild tricuspid regu rgitation. Right ventricular systolic pressure ismildly joselyn vated.The aortic valve is mildly calcified.There is no per icardial effusion. Electronically read by:Kenneth hogue MD 11/07/2021 01:20 PMOrdering Physician: Juvencio Joyferkathrine Physician: KNOW, DOES_NOT Electron ically Signed by Kenneth Gonzalez MD on 11/07/21 at 1 [address] [facility] [address] [address] PATIENT NAME: DANIELE HINKLE :20: 00TN.IZN997 [id number] for patient [id number]:20:46 2021-11-07 [id number] [facility] [place] 09:08:00 [place] [facility])Cardiology Consultation REPORT #: [id number] REPORT STATUS: Signed DATE: 11/07/21 TIME: 907 PATIENT: DANIELE HINKLE UNIT #: [id number] # : [id number] ROOM #: TN.IC16 BED: A : 3 AGE: 71 SEX: F ATTEND: Erasmo Fay MD ADM DT: AUTHOR: Kenneth Gonzalez MD ATTENTION EDITS and/or ADDENDA must be made i n Patient Keeper for this note. Edits and ammendments c reated in [facility] are not visible in Patient Keeper or the legal medical record (HPF). -- ASSESSMENT AND PLAN -- PROBLEMS : 1: NSTEMI (non-ST elevated myocardial infarction)A/P: - ei ther 2/2 CAD progression or 2/2 demand isch in setting of DKA- pt with known sev diffuse non-revascularizable CAD- Tn peaked at 4.8k and is trending down- ECG reviewed- ef d own from 50% 04/08/21 to 40% 11/07/21- iv hep gtt since 11/06 - resume ASA 81/plavix 75- resume lopr/isordil if BP allo ws- h/o statin-induced myalgias; zetial for now- poor px ; cont with med mgmt- discussed above with pt and kandi cervantes ce, dtr kenrick and dominik gonzalez; all ?sanswered 2: CHF ( congestive heart failure)A/P: -newly doc shf: ?2/2 CAD prog ression vs 2/2 ac illness-ef down from 50% 04/08/21 to 40% -prn iv las-bb 3: HypotensionA/P: off levomidodr if n eeded 4: CAD (coronary artery disease)A/P: - known sev di ffuse non-revascularizable CAD- re medical mxm- given uncontrolled DM, would not opt for surg revascul arization- lopr/isord if BP allows- resume asp/plav/ranexa/ zet 5: Diabetic keto-acidosisA/P: - iv ins gtt- A1C 13 04/20 yet >14 10/20- rec strict glycemic control- no longer in DKA- compliance with meds encouraged 6: Non complianc e w medication regimen A/P: - encouraged again stric t compliance with all meds 7: HyperlipidemiaA/P: - not on statin due to severe myalgias- c/w home zetia 10 qd- FLP 8: Severe protein-calorie malnutritionA/P: nutritio n csltBMI 17.6 -- HISTORY -- HPI:Ms. Hinkle is a 71-year-o ld woman with a history of brittle diabetes and nncmplian ce with meds who presents with nausea and vomiting for a few days. Asper dtr as well as patient, she is non complia nt with meds at least 2-3days aweek and she is legally b bashir. Her BS was way elevated and has h/o chrrecurrent CP. She denies fevers or chills or cough or shortness of breath . Wasfound to be in DKA. Had CP once yesterday, none today. Former smoker. Cardiaceval requested for elev trop. PAS T MEDICAL HISTORY:HTN, DM, CAD, retinopathy, diabetic neur opathy, dyslipidemia PAST SURGICAL HISTORY:Retinal surge ry, hysterectomy -- ALLERGIES/HOME MEDS -- ALLERGIES :codeine (Intermediate - Allergy)lisinopril (Intermediate - Allergy) HOME MEDICATIONS:Clopidogrel Tab (Plavix Tab) 75 MG PO DAILYGabapentin Cap (Neurontin Cap) 300 MG PO BEDTIMEInsulin (Glargine) Inj (Lantus Inj) 20 UN ITS SUBQ QAMInsulin Lispro InJ (HumaLOG Inj) SUBQ AC HSIn sulin Lispro InJ (HumaLOG Inj) SUBQ AC HSIsosorbide Mo nonitrate ER Tab (Imdur Tab) 30 MG PO SPECIAL INSTIsosorbi de Mononitrate ER Tab (Imdur Tab) 90 MG PO DAILYLos lucrecia Tab (Cozaar Tab) 25 MG PO DAILYNitroglycerin SL Tab (Nitrostat SL Tab) 0.4 MG SL [id number] Glycol Powder (Miralax Powder) 1 PKT PO DAILY -- SUBJECTIVE -- -REVIEW OF SYSTEMS- GENERAL: Negative for fever, malaise, fatigue.EY ES: Negative for blurry vision. No diplopia.EARS/NOS E/THROAT: Negative for sore throat. No otalgia. No rhinorr hea.BREAST: Negative for change in shape, swelling, masses, nipple discharge, pain, skin changes.RESPIRATORY: Negat mirtha for dyspnea or wheeze. No cough.CARDIOVASCULAR: Nega tive for chest pain or palpitations. No extremity swelling.GASTROINTESTINAL: Negative for abdomina l pain or nausea. No emesis. No diarrhea. GENITOURINARY: N egative for dysuria, frequency, or urgency. No gross hematuria.MUSCULOSKELETAL: Negative for joint st iffness, pain, or arthralgias.SKIN: Negative for rashes. No pruritus.NEUROLOGICAL: Negative for headache. No vertigo. Denies paresthesias.PSYCHIATRIC: Negative for s pecific complaints.ENDOCRINE: Negative for cold intolera nce, heat intolerance, polyphagia, polydipsia, polyuria, w eight change, fatigue.HEMATALOGIC / LYMPHORETICULAR: N egative for excessive bleeding, unusual masses.ALLERGIC / IM MUNOLOGIC: Negative for heat/cold intolerance, polydipsia, or polyuria. -- OBJECTIVE -- VITALS (11/06 09:08 - 11/07 09:08):Temperature F: 98.2 (98.0 - 98.3)Temperat ure source: OralPulse Rate 80 (68 - 108)Respiratory rate: 14 (11 - 52)BP: 108/55 (71/45 - 133/76)Blood pressure so urce: Monitor I/Os (11/06 07:00 - 11/07 07:00):Net 358 .00Intake 1,458.00Output 1,100 -EXAM- OTHER: General: Wel l developed, well nourished, in no apparent distre ss. Head: Normocephalic, atraumatic. Eyes: PERRL, EOM in tact, conjunctiva and sclera clear Chest: Grossly n ormal appearance. Lungs: Clear bilaterally with norm al respiratory effort. Heart: Regular rate and rh ythm, normal S1, S2, no murmurs, no rubs, no gallops Abdomen: Soft, non-tender, no organomegaly, no masses not ed Extremities: No clubbing, no cyanosis, no jonny a. Neurological: No focal deficits, normal muscle strength, normal tone. Pulses: Pulses normal in all ext remities. Skin: Intact without significant lesions, or r ashes -- DATA -- MEDICATIONS HEPARIN SODIUM,PORCINE/D5W 2 5000 UNIT IV TITRATEHEPARIN SODIUM,PORCINE 2000 UNIT IV DIR (PRN)HEPARIN SODIUM,PORCINE 3500 UNIT IV ASDIR (PRN)MUPIROCIN 1 APPLIC NASAL BIDINSULIN GLARGIN E 20 UNITS SUBQ QAMGLUCAGON 1 MG IM ASDIR (PRN)CHOLECALCIFE ROL (VITAMIN D3) 94058 UNIT PO QPMPOTASSIUM BICARBON ATE/CIT AC 20 MEQ PO ASDIRDEXTROSE 5%-0.45% SALINE 1000 ML IV .[id number] 50%-WATER 50 ML IV ASDIRPOTASSIU M CHLORIDE 20 MEQ IV ASDIRINSULIN LISPRO 0 UNITS SUBQ AC HSNOREPINEPHRINE BIT/0.9 % NACL 8 MG IV ASDIRDEX TROSE 50%-WATER 50 ML IV ASDIR LABS GLU BED (11/07/21 07:58)GLUBED 171 H GLU BED (11/07/21 07:33)GLUBE D 25 *L GLU BED (11/07/21 07:31)GLUBED 27 *L PHOS (11/07 03:55)PHOSPHOROUS 2.2 L BASIC METABOLIC PANEL (0 11/07/21 03:55)SODIUM 143POTASSIUM 3.8CHLORIDE 112H HCAR BON DIOXIDE 25ANION GAP 9.8GLUCOSE 86BLOOD UREA NITROGEN 29H HGLOMERULAR FILTRATION RATE 48 LCREATININE 1.4BUN/CREATININE RATIO 20.7 HCALCIUM 7.7 L PTT (11/07/21 03:55)THROMBOPLASTIN TIME PARTIAL 25.3 PROTHROMB IN TIME (11/07/21 03:55)PROTHROMBIN TIME PATIENT 9.8INTE RNATIONAL NORMAL RATIO 0.9 TROP-I HIGH SEN (11/07/21 03:55 )TROP-I HIGH SENSITIVITY 4198 *H CBC W/AUTO DIFF ( 03:55)WHITE BLOOD CELL 7.6RED BLOOD CELL 3.30 LH EMOGLOBIN 10.2L LHEMATOCRIT 29.7L LMEAN CELL VOLUME 90 DME AN CELL HGB 30.9MEAN CELL HGB CONCENTRATION 34.3RED CELL DIS TRIBUTION WIDTH 13.3PLATELET COUNT 237MEAN PLATELET VOLUME 10.8NEUTROPHIL % 70.0IMMATURE GRANULOCYTE % 1.2 HLYMPHOCYTE % 15.9MONOCYTE % 11.8EOSINOPHIL % 0.7BASOPHIL % 0.4NUCLEATED RBC % 0.0NEUTROPHIL # 5.35IMMATURE GRANULOCYTE # 0.090LYMPHOCYTE # 1.21 LMONOCYTE # 0.90 HEOSI NOPHIL # 0.05BASOPHIL # 0.03NUCLEATED RBC # 0.000 GLU BED (11/07/21 03:37)GLUBED 95 GLU BED (11/07/21 02:06) GLUBED 140 H GLU BED (11/07/21 01:26)GLUBED 154 H GLU BED ( 00:40)GLUBED 69 L GLU BED (11/06/21 23:28)GLUBED 109 H GLU BED (11/06/21 22:39)GLUBED 132 H PHOS (11/06/21 21:30)PHOSPHOROUS 2.3 L MAG (11/06/21 21:30)MAGN ESIUM 1.8 TROP-I HIGH SEN (11/06/21 21:30)TROP-I HIGH SENS ITIVITY 4881 *H BASIC METABOLIC PANEL (11/06/21 21:30)SO DIUM 142POTASSIUM 4.3CHLORIDE 111H HCARBON DIOXIDE 2 5ANION GAP 10.3 DGLUCOSE 131H HBLOOD UREA NITROGEN 32H HGLO MERULAR FILTRATION RATE 38 LCREATININE 1.7H HBUN/CREATIN INE RATIO 18.8CALCIUM 7.7 L GLU BED (11/06/21 21:23)GLUBED 137 H GLU BED (11/06/21 20:11)GLUBED 152 H GLU BED ( 19:33)GLUBED 204 H GLU BED (11/06/21 18:39)GLUBE D 218 H TROP-I HIGH SEN (11/06/21 17:14)TROP-I HIGH SENS ITIVITY 3743 *H PHOS (11/06/21 17:14)PHOSPHOROUS 3.7 BAS IC METABOLIC PANEL (11/06/21 17:14)SODIUM 142POTAS SIUM 4.3CHLORIDE 108H HCARBON DIOXIDE 20L LANION GAP 18.3 H GLUCOSE 293H HBLOOD UREA NITROGEN 36H HGLOMERULA R FILTRATION RATE 38 LCREATININE 1.7H HBUN/CREATIN INE RATIO 21.2 HCALCIUM 7.8 L COVID 19 INH AG (11/06/21 17 :00)COVID 19 INHOUSE AG NEGATIVE GLU BED (11/06/21 16:33)G LUBED 352 H VENOUS BLOOD GAS (11/06/21 16:22)VENOUS BLOOD GA S PH 7.19 LVENOUS BLOOD GAS PCO2 37 LVENOUS BLOOD GAS PO2 45 HVBG HCO3 14 LVBG BASE EXCESS -14 LVENOUS BLOOD GAS T YPE VenousVENOUS BLOOD GAS FIO2 28.0VBG VENT MODE NC VENOUS BLOOD GAS SITE A-Line GLU BED (11/06/21 15:32)GL UBED 374 H GLU BED (11/06/21 14:27)GLUBED 425 *H LACTIC AC ID (11/06/21 14:15)LACTIC ACID 1.8 VITB12 (11/06/21 14:15)VITAMIN B12 3945 H PHOS (11/06/21 14:15)PH OSPHOROUS 5.1 H BASIC METABOLIC PANEL (11/06/21 14:15)SODI UM 135POTASSIUM 4.3CHLORIDE 103CARBON DIOXIDE 15L L ANION GAP 21.3 D HGLUCOSE 418*H *HBLOOD UREA NITROGEN 40H HGLOMERULAR FILTRATION RATE 34 LCREATININE 1.9H HBUN/CREATIN INE RATIO 21.1 HCALCIUM 7.7 L TSH (11/06/21 14:15)THYROID STIMULATING HORMONE 0.72 T3UP (11/06/21 14:15)T3 UPTAKE 35.0 T4 (11/06/21 14:15)T4 (THYROXINE) 4.6 L URINALYSIS COMPLETE (11/06/21 13:30)UA COLOR STRAWUA APPEARANCE LALA ROQUE GLUCOSE DIPSTICK 3+ NATHALIE BILIRUBIN DIPSTICK NEGATIVEUA KE TONE DIPSTICK 2+ NATHALIE SPECIFIC GRAVITY 1.017UA BLOOD D IPSTICK 1+ NATHALIE PH DIPSTICK 5.0UA PROTEIN DIPSTICK NEGATIVE UA UROBILINOGEN DIPSTICK NEGATIVEUA NITRITE DIPSTIC K NEGATIVEUA LEUKOCYTE ESTERASE DIPSTICK TRACE NATHALIE MICROSCOPIC NEEDED? YES NATHALIE WBC 51-100 NATHALIE RBC 0 -2UA BACTERIA NONE SEENUA SQUAMOUS CELLS RAREUA MUCUS OCCASIONAL GLU BED (11/06/21 12:42)GLUBED 483 *H GLU BED ( 11/06/21 11:03)GLUBED 593 *H ISTAT BLOOD GAS VENOUS ( 01/20 10:23)IONIZED CALCIUM 1.13VENOUS BLOOD GAS PH 7. 12 *LVENOUS BLOOD GAS PCO2 28 LVENOUS BLOOD GAS PO2 57 HVBG HCO3 9 LVBG BASE EXCESS -20 LVENOUS BLOOD GAS O2 SAT 79 HTOT AL CO2 CONTENT 10.0 *LHEMOGLOBIN POC 12.2HEMATOCRIT POC 36.0 LSODIUM POC 128 LPOTASSIUM POC 5.3 HGLUCOSE POC > 625 *H BASIC METABOLIC PANEL (11/06/21 10:15)SODIUM 127 L LPOTASSIUM 5.1CHLORIDE 93L LCARBON DIOXIDE 9L LA NION GAP 30.1 HGLUCOSE 680*H *HBLOOD UREA NITROGEN 45H HG LOMERULAR FILTRATION RATE 29 LCREATININE 2.2D H D HBUN/CRE ATININE RATIO 20.5 HCALCIUM 8.8 TROP-I HIGH SEN (07/09/2 2 10:15)TROP-I HIGH SENSITIVITY 289 *H ACETNQL ( 10:15)ACETONE QUAL LARGE H CK (11/06/21 10:15)C REATINE KINASE (CK) 108 MINOO (11/06/21 10:15)AMYLASE 42 P HOS (11/06/21 10:15)PHOSPHOROUS 7.0 H CBC W/O DIFF ( 11/06/21 10:15)WHITE BLOOD CELL 10.3RED BLOOD CELL 3.60HE MOGLOBIN 11.3L LHEMATOCRIT 34.2L LMEAN CELL VOLUME 95MEAN CELL HGB 31.4MEAN CELL HGB CONCENTRATION 33.0RED CELL DIS TRIBUTION WIDTH 13.2PLATELET COUNT 248 L[address] FUN[address] PANE L (11/06/21 10:15)TOTAL PROTEIN 7.3ALBUMIN 3.3 LGLOBULIN 4. 0 HBILIRUBIN TOTAL 0.5BILIRUBIN DIRECT 0.2BILIRUBI N INDIRECT 0.3SGOT/AST 25SGPT/ALT 25ALKALINE PHOSPHATASE 91 VITD25 (11/06/21 10:15)VITAMIN D 25-HYDROXY 18 L PROTHR OMBIN TIME (11/06/21 10:15)PROTHROMBIN TIME PATIENT 9.9INTE RNATIONAL NORMAL RATIO 0.9 PTT (11/06/21 10:15)THROMBOPLAS TIN TIME PARTIAL 30.2 OSMO (11/06/21 10:15)OSMOLALITY SER UM 339 H GLU BED (11/06/21 10:12)GLUBED > 600 *H Signed i n PatientKeeper by Kenneth Gonzalez MD on at 18:47 Electronically Signed by Kenneth Gonzalez MD o n 11/07/21 at 1847ATTENTION EDITS and/or ADDENDA must be ma de in Patient Keeper for this note. Edits and ammen dments created in [facility] are not visible in Patien t Keeper or the legal medical record (HPF). [facility] #: [id number] OF [id number]:08:[id number].PK- [id number] for patient [id number]:48:30 2021-11-06 [id number] [facility] 22:19:[address] [address] PATIENT NAME: DANIELE HINKLE ADMIT D ATE: 11/06/21ACCOUNT NO: [id number] ROOM NO: TN.IC1 6 AGE: 71 REPORT TYPE: eELECTROCARDIOGRAM SEX: F ADMITTING PHYSICIAN:Fadumo Fay MD ATTENDING PHYSICIAN:Erasmo spann MD Order:[id number] Reason : ELEVATED TROPON IN Test Date/Time Stamp:MonNov 06 2021 22:19:37Blood Pr essure : / mmHGVent. Rate : 076 BPM Atrial Rate : 0 76 BPM P-R Int : 118 ms QRS Dur : 078 ms QT Int : 412 ms P- R-T Axes : 083 041 064 degrees QTc Int : 463 ms Sinus rhyth m with premature atrial complexesEarly R wave progressi onAbnormal ECG (RN requested EKG earlier instead of 2300)Co nfirmed by MD Margarita, Jas ([id number]) on 11/07/2021 6:41:23 PM Referred By: Erasmo Fay Confirmed by:Jas Avila MD at [address] [address] PATIENT NAME: GALEN HINKLE .[id number] 58AVAvailab le for patient [id number]:4 1:49 2021-11-06 [id number] [facility] 15:55:[address] [place] [address] PATIENT NAME: DANIELE HINKLE ADMIT D ATE: 11/06/21ACCOUNT NO: [id number] ROOM NO: TN.IC1 6 AGE: 71 REPORT TYPE: eELECTROCARDIOGRAM SEX: F ADMITTING PHYSICIAN:Camilla Fay MD ATTENDING PHYSICIAN:Erasmo spann MD Order:[id number] Reason : PROTOCOL Test D ate/Time Stamp:[facility] Nov 06 2021 15:55:36Blood Pressure : * / mmHGVent. Rate : 085 BPM Atrial Rate : 085 BPM P -R Int : 116 ms QRS Dur : 076 ms QT Int : 400 ms P-R-T Ax es : 082 050 073 degrees QTc Int : 476 ms Normal sinus rhythmNonspecific ST abnormalityAbnormal ECGConf irmed by MD Margarita, Jas ([id number]) on 11/06/2021 6:56:11 P M Referred By: Erasmo Fay Confirmed by:Jas Avila MD at [address] [place] [address] PATIENT NAME: GALEN HINKLE .[id number] 31AVAvailab le for patient [id number]:5 6:45 2021-11-06 [id number]:59:00 [facility] 13:59:00 [place] [facility]Intensive Care Consultation REPORT #: [id number] REPORT STATUS: Signed DATE: 11/06/21 T EDUARDO: 1359 PATIENT: DANIELE HINKLE UNIT #: [id number] ROOM #: NC.IC16 BED: A : 3 AGE: 71 SEX: F ATTEND: Erasmo Fay MD ADM DT: AUTHOR: Lilli Terrell MD ATTENTION EDITS and/or ADDENDA must be made i n Patient Keeper for this note. Edits and ammendments c reated in [employer] are not visible in Patient Keeper or the legal medical record (HPF). -- ASSESSMENT AND PLAN -- GENERAL ASSESSMENT:[facility] AssessmentDKA, without comaAnion-gap metabolic acidosisAcute renal failurePseudohyponatremiaChronic normocytic anemiaDMHTNDyslipidemiaSevere protein calorie ma lnutrition, BMI 17.6 Plan:Neurologic: Mildly lethargic but w akes up and answers questions. Pulmonary: Tolerating RA; sup plemental O2 if needed to keep SpO2 > 92%CXR reviewed, No acute processVBG shows pH 7.12, PCO2 28. Cardiovascula r: Monitor HR, BP.Tnl 7 Hematologic: Monitor H/H, platelets . Transfuse to keep Hgb > 7. Can restart antihypertensives o nce in the computer. Renal: Monitor UOP, BUN, Cr.Replace el ectrolytes as needed.Avoid nephrotoxins.Mild ADOLFO likely sec ondary to volume depletion and DKA. Continue IV fluids.Neptali lambert consider nephrology consultation if renal indices do not trend down Gastrointestinal: NPOAntiemetics PRN Infectious disease: Trend WBC, fever curve Follow-up cultures. Endoc rine: DKA insulin infusion protocolHgb a1c >14, will need diabetic educationEndocrinology consulted Dispo: ICUCode Status: FullVTE ppx; Heparin SQGi ppx: HPI: Ms. Hinkle is a 71-year-old woman with a history of diabetes who presentswith nausea and vomiting for a few days. She is a poor historian, lethargic.She denies fevers or c hills or cough or shortness of breath. When I asked herif she was skipping some of her medications, she stated teresa t she was not eatingdinner regularly. Found to be in DKA. Past medical history: HTN, DM, CAD, retinopathy, diab etic neuropathy,dyslipidemiaPSurgHx: Retinal surgery, hysterectomyFamily history: NoncontributorySocHx : Former smoker Review of systems: 14 point review system negative unless listed above Physical ExamGeneral: NAD, a wake and alert Eyes: Anicteric sclerae.Mouth: MMMNeck: Landin pple.CV: Regular rate and rhythm. Normal S1 and S2.Pulm: Good effort, no wheezing or Rales appreciated.Abdomen : Soft, nontender.Extremities: No lower extremity edema. Skin: Warm, dry.Neuro: Awake and alert, no focal neurologica l deficit. Chronic vision loss.Psych: normal mood I have pe rsonally provided 35 minutes of critical care time. Time includesreview of laboratory data, radiology res ults, discussion with consultants,family and staff and monitoring for potential decompensation. Interventionswere performed as documented above. This is exclusive of time s pent onseparately billable procedures. -- OBJECTIVE - - VITALS (11/05 13:59 - 11/06 13:59):Temperature F: 98.2 (98.1 - 98.2)Temperature source: OralPulse Rate 101 (101 - 108)Respiratory rate: 15 (14 - 18)BP: 113/68 (11 - 123/70)Blood pressure source: Monitor -- DATA -- MEDICATIONS SODIUM CHLORIDE 0.45% 1000 ML IV ASD IRSODIUM BICARBONATE 8.4% with/in WATER FOR INJECTION,MAYO RILE 100 MEQ IV ASDIRSODIUM CHLORIDE 0.9% 1000 ML IV ASDI RMUPIROCIN 1 APPLIC NASAL BIDGLUCAGON 1 MG IM ASDIR (PRN)PO TASSIUM BICARBONATE/CIT AC 20 MEQ PO ASDIRSODIUM BICARBO IRAIDA 8.4% with/in WATER FOR INJECTION,STERILE 50 MEQ IV DIRINSULIN GLARGINE 20 UNITS SUBQ QAMINSULIN REGULAR, HUMAN with/in SODIUM CHLORIDE 100 mL BAG 100 UNIT IV ASDIRDEXT KIM 50%-WATER 50 ML IV ASDIRPOTASSIUM CHLORIDE 20 ME Q IV ASDIRSODIUM CHLORIDE 0.45% 1000 ML IV ASDIRSODIU M CHLORIDE 0.9% 1000 ML IV ASDIRINSULIN LISPRO 0 UNITS SUBQ AC HSDEXTROSE 5%-0.45% SALINE 1000 ML IV ASDIRDEXTR OSE 50%-WATER 50 ML IV ASDIR LABS GLU BED (11/06/21 12:42)GLUBED 483 *H GLU BED (11/06/21 11:03)GLUB ED 593 *H ISTAT BLOOD GAS VENOUS (11/06/21 10:23)IONIZED C ALCIUM 1.13VENOUS BLOOD GAS PH 7.12 *LVENOUS BLOOD GAS PCO2 28 L VENOUS BLOOD GAS PO2 57 HVBG HCO3 9 LVBG BASE EX CESS -20 LVENOUS BLOOD GAS O2 SAT 79 HTOTAL CO2 CONTENT 1 0.0 *LHEMOGLOBIN POC 12.2HEMATOCRIT POC 36.0 LSODIUM POC 128 LPOTASSIUM POC 5.3 HGLUCOSE POC > 625 *H BASIC M ETABOLIC PANEL (11/06/21 10:15)SODIUM 127L LPOTASSIUM 5.1 CHLORIDE 93L LCARBON DIOXIDE 9L LANION GAP 30.1 HGLUCOSE 680*H *HBLOOD UREA NITROGEN 45H HGLOMERULAR FILTRATION RATE 29 LCREATININE 2.2D H D HBUN/CREATININE RATIO 20.5 HCALCIUM 8.8 CBC W/O DIFF (11/06/21 10:15)WHITE BLOOD DILIA L 10.3RED BLOOD CELL 3.60HEMOGLOBIN 11.3L LHEMATOCRIT 34.2 L LMEAN CELL VOLUME 95MEAN CELL HGB 31.4MEAN CELL HGB CO NCENTRATION 33.0RED CELL DISTRIBUTION WIDTH 13.2PLATELET COU NT 248 TROP-I HIGH SEN (11/06/21 10:15)TROP-I HIGH SENS ITIVITY 289 *H ACETNQL (11/06/21 10:15)ACETONE QUAL LARGE H PROTHROMBIN TIME (11/06/21 10:15)PROTHROMBIN TIME PATIENT 9.9INTERNATIONAL NORMAL RATIO 0.9 PTT (11/06/21 10:15)THROMBOPLASTIN TIME PARTIAL 30.2 OSMO (01/20 10:15)OSMOLALITY SERUM 339 H CK (11/06/21 10:15) CREATINE KINASE (CK) 108 LIVER FUNCTION PANEL (11/06/21 1 0:15)TOTAL PROTEIN 7.3ALBUMIN 3.3 LGLOBULIN 4.0 HBILIRUBIN TOTAL 0.5BILIRUBIN DIRECT 0.2 BILIRUBIN INDIRECT 0.3S GOT/AST 25SGPT/ALT 25ALKALINE PHOSPHATASE 91 MINOO ( 10:15)AMYLASE 42 PHOS (11/06/21 10:15)PHOSPHORO US 7.0 H GLU BED (11/06/21 10:12)GLUBED > 600 *H -- ATTES TATION -- TIME SPENT ON PATIENT CARE: - Direct - Counselin g - Coordination of care 36 minutes - > 50% of time spent on Counseling/Care Coordination CARE ACTIVITIES / C ARE COORDINATION: - I have reviewed the history and repeated the ingram elements - I have seen and examined this patient - I have reviewed the progress in the clinical cou rse since the lastexamination - I have discussed the patie nt's condition with other members of the care team Si gned in PatientKeeper by Lilli Terrell MD on 11/06/21 at 14:07 Electronically Signed by Lilli Terrell MD on 01/20 at 1407ATTENTION EDITS and/or ADDENDA must be ma de in Patient Keeper for this note. Edits and ammen dments created in [facility] are not visible in Patien t Keeper or the legal medical record (HPF). RPT #: [id number] OF [id number]:59:[id number].PK- [id number] for patient [id number]:08:43 2021-11-06 [id number]:28:00 [facility] [place] 11:28:00 [place] ([facility])Endocrinology Consultation REPORT #: [id number] REPORT STATUS: Signed DATE: 11/06/21 T EDUARDO: 1128 PATIENT: DANIELE HINKLE UNIT #: [id number] ROOM #: NC.IC16 BED: A : 3 AGE: 71 SEX: F ATTEND: Erasmo Fay MD ADM DT: AUTHOR: Nini Doan MD ATTENTION EDITS and/or ADDENDA must be made i n Patient Keeper for this note. Edits and ammendments c reated in [facility] are not visible in Patient Keeper or the legal medical record (HPF). -- ASSESSMENT AND PLAN -- PROBLEMS : 1: Type 1 diabetes mellitus with ketoacidosis without coma A/P: UNCONTROLLED (HGBA1C>14%,HYPERGLYCEMIA) TYPE I D M IN DKA SECONDARY TONON-COMPLIANCE WITH INSULIN. OBSERVE ON ICU DKA,INSULIN DRIP PROTOCOL THEN WHENAG CLOSES TRA NSITION TO SQ BASAL/BOLUS INSULIN. DISCUSSED WITH ICU NURSE . THANKYOU. WILL FOLLOW WITH YOU. -- HISTORY -- CONSULT REQU ESTED BY:Erasmo Fay MD REASON FOR CONSULT:DKA,HYPERGLYCEMIA CHIEF COMPLAINT:DKA HP I:PATIENT ADMITTED TO ICU IN DKA. ICU DKA,INSULIN DRIP PRO TOCOL INITIATED.PATIENT HAS BEEN FORGETTING TO TAKE HE R INSULIN. PAST MEDICAL HISTORY:DM type 1, HTN, CAD, myocar dial infarction , neuropathy, retinopathy,hyperlipide harmeet, PAST SURGICAL HISTORY:hysterectomy, retinal surgery b ilaterally, -SOCIAL HISTORY- -TOBACCO USE- DETAILS/COMMENTS: former -VAPING/INHALED SOLVENTS- DETAILS/COMMENTS:none -ALCOHOL USE- DETAILS/COMMENTS:none -DRUG USE- DETAILS/CO MMENTS:none -- ALLERGIES/HOME MEDS -- ALLERGIES:codeine (Int ermediate - Allergy)lisinopril (Intermediate - Allergy) HOME MEDICATIONS:Clopidogrel Tab (Plavix Tab) 75 MG P O DAILYGabapentin Cap (Neurontin Cap) 300 MG PO BEDTIMEInsulin (Glargine) Inj (Lantus Inj) 20 UN ITS SUBQ QAMInsulin Lispro InJ (HumaLOG Inj) SUBQ AC HSIn sulin Lispro InJ (HumaLOG Inj) SUBQ AC HSIsosorbide Mo nonitrate ER Tab (Imdur Tab) 30 MG PO SPECIAL INSTIsosorbi de Mononitrate ER Tab (Imdur Tab) 90 MG PO DAILYLos lucrecia Tab (Cozaar Tab) 25 MG PO DAILYNitroglycerin SL Tab (Nitrostat SL Tab) 0.4 MG SL Q7POzehnpcwvvin Glycol Powder (Miralax Powder) 1 PKT PO DAILY -- SUBJECTIVE -- -REVIEW OF SYSTEMS- GENERAL: Negative for feverRESPIRATORY: Negative for dyspneaCARDIOVASCULAR: Negative for chest painGASTROINTESTINAL: NAUSEA, ABDOMINAL PAINENDO CRINE: Negative for polydipsia, polyuria -- OBJECTIVE - - VITALS (11/05 11:28 - 11/06 11:28):Temperature F: 98.1T emperature source: OralPulse Rate 108Respiratory rate: 18BP : 111/65Blood pressure source: Monitor -EXAM- GENE RAL: Well developed, THINHEAD: Normocephalic, atraumatic. NECK: trachea midline.CHEST: Grossly normal appearance .LUNGS: NORMAL CHEST WALL MOVEMENTHEART: TACHYCARDIAABDO MEN: NON-DISTENDEDNEUROLOGICAL: NORMAL SPEECHPSYCHIAT ALPESH: Alert and oriented to time, person, place -- DATA -- M EDICATIONS INSULIN GLARGINE 30 UNITS SUBQ ONCESODIUM CHLORI DE 0.45% 1000 ML IV ASDIRDEXTROSE 50%-WATER 50 ML IV ASDI RINSULIN GLARGINE 20 UNITS SUBQ QAMINSULIN REGULAR, HUMAN with/in SODIUM CHLORIDE 100 mL BAG 100 UNIT IV ASDIRSODI UM BICARBONATE 8.4% with/in WATER FOR INJECTION,MAYO RILE 100 MEQ IV ASDIRSODIUM CHLORIDE 0.9% 1000 ML IV ASDI RMUPIROCIN 1 APPLIC NASAL BIDDEXTROSE 5%-0.45% SALINE 1000 ML IV ASDIRPOTASSIUM CHLORIDE 20 MEQ IV ASDIRPOTASSIUM BICARBONATE/CIT AC 20 MEQ PO ASDIRGLUCAGON 1 MG IM ASDIR (PRN)SODIUM BICARBONATE 8.4% with/in WATER FOR INJECTION,STERILE 50 MEQ IV ASDIR LABS GLU BED ( 11/06/21 11:03)GLUBED 593 *H ISTAT BLOOD GAS VENOUS (01/20 10:23)IONIZED CALCIUM 1.13VENOUS BLOOD GAS PH 7. 12 *LVENOUS BLOOD GAS PCO2 28 LVENOUS BLOOD GAS PO2 57 HVBG HCO3 9 LVBG BASE EXCESS -20 LVENOUS BLOOD GAS O2 SAT 79 HTOTAL CO2 CONTENT 10.0 *LHEMOGLOBIN POC 12.2HEMATOCRIT POC 36.0 LSODIUM POC 128 LPOTASSIUM POC 5.3 HGLUCOSE POC > 625 *H CBC W/O DIFF (11/06/21 10:15)WHITE BLOOD CELL 1 0.3RED BLOOD CELL 3.60HEMOGLOBIN 11.3L LHEMATOCRIT 34.2 L LMEAN CELL VOLUME 95MEAN CELL HGB 31.4MEAN CELL HGB CO NCENTRATION 33.0RED CELL DISTRIBUTION WIDTH 13.2PLATELET COU NT 248 PROTHROMBIN TIME (11/06/21 10:15)PROTHROMBIN MARY JO E PATIENT 9.9INTERNATIONAL NORMAL RATIO 0.9 PTT (11/06/21 10:15)THROMBOPLASTIN TIME PARTIAL 30.2 GLU BED ( 11/06/21 10:12)GLUBED > 600 *H -- ATTESTATION -- TIME SPE NT ON PATIENT CARE: - Direct 50 minutes CARE ACTIVITIE S / CARE COORDINATION: - I have reviewed the history and repeated the ingram elements - I have seen and examined this patient - I have discussed the patient's condition with ot her members of the care team ADDITIONAL DETAIL:I HAVE SPENT >50 MINUTES IN THE EVALUATION AND TREATMENT OF THIS PATIENT. Signed in PatientKeeper by Nini Doan MD on 01/20 at 13:31 at 1331ATTENTION EDITS and/or ADDENDA must be ma de in Patient Keeper for this note. Edits and ammen dments created in [facility] are not visible in Patien t Keeper or the legal medical record (HPF). [facility] #: [id number] OF [id number]:28:[id number].PK- [id number] for patient [id number]:32:01 2021-11-06 [id number]:45:00 [facility] [place] 10:45:00 [place] ([facility])Family Med. History PhysicalREPORT #: [id number] REPORT STATUS: Signed DATE: 11/06/21 T EDUARDO: 1045 PATIENT: DANIELE HINKLE UNIT #: [id number] ROOM #: TN.IC16 BED: A : 3 AGE: 71 SEX: F ATTEND: Erasmo Fay MD ADM DT: AUTHOR: Erasmo Fay MD ATTENTION EDITS and/or ADDENDA must be made i n Patient Keeper for this note. Edits and ammendments c reated in [facility] are not visible in Patient Keeper or the legal medical record (HPF). -- HISTORY -- ADMISSION DATE:11-06 PRIMARY CARE PROVIDER:Erasmo Fay MD IEF COMPLAINT:weak HPI:patient with hx of DM and mulugeta q episodes of DKA began feeling weak and nauseousyesterday, she had some nausea and vomiting, she does nto rmemeber if she has taken her insulin, she is dependent on herhusban d PAST MEDICAL HISTORY:DM type 1, HTN, CAD, myocardial infarction , neuropathy, retinopathy,hyperlipidemia, PAST S URGICAL HISTORY:hysterectomy, retinal surgery bilaterall y, -SOCIAL HISTORY- -TOBACCO USE- DETAILS/COMMENTS:former -VAPING/INHALED SOLVENTS- DETAILS/COMMENTS:none -ALCOHOL USE- DETAILS/COMMENTS:none -DRUG USE- DETAILS/CO MMENTS:none -- ALLERGIES/HOME MEDS -- ALLERGIES:codeine (Int ermediate - Allergy)lisinopril (Intermediate - Allergy) HOME MEDICATIONS:Clopidogrel Tab (Plavix Tab) 75 MG P O DAILYGabapentin Cap (Neurontin Cap) 300 MG PO BEDTIMEInsulin (Glargine) Inj (Lantus Inj) 20 UN ITS SUBQ QAMInsulin Lispro InJ (HumaLOG Inj) SUBQ AC HSIn sulin Lispro InJ (HumaLOG Inj) SUBQ AC HSIsosorbide Mo nonitrate ER Tab (Imdur Tab) 30 MG PO SPECIAL INSTIsosorbi de Mononitrate ER Tab (Imdur Tab) 90 MG PO DAILYLos lucrecia Tab (Cozaar Tab) 25 MG PO DAILYNitroglycerin SL Tab (Nitrostat SL Tab) 0.4 MG SL P5WSzkmcedoigrq Glycol Powder (Miralax Powder) 1 PKT PO DAILY -- SUBJECTIVE -- -REVIEW OF SYSTEMS- GENERAL: Negative for fever, chills, unexplained weight loss, and fatigueEYES: patientis legally blindEARS/NOSE/THROAT: Negative for sore throat. No otalgia. No rhinorrhea.RESPIRATORY: Negative for shortness of breath, cough, chest congestion, wheezing, he moptysis, and pleuritic painCARDIOVASCULAR: Negative for c hest pain, palpitations, dyspnea on exertion, orthopnea, e zaki and dizzinessGASTROINTESTINAL: Negative for abdomina l pain, nausea, vomiting, diarrhea, constipation, and anorexiaGENITOURINARY: Negative for dysuria, mulugeta quency, or urgency. No gross hematuria.MUSCULOSKELETAL: Neg ative for Back pain, joint pains and myalgiasSKIN: Negativ e for rashes. No pruritus.NEUROLOGICAL: Negative for h eadache, numbness, tingling, and weaknessPSYCHIATRIC: Den ies depression, anxiety, and suicidal thoughts -- OB JECTIVE -- VITALS (11/05 17:15 - 07/09 17:15):Temperature F : 98.2 (98.1 - 98.2)Temperature source: OralPulse Rate 86 (86 - 108)Respiratory rate: 15 (13 - 18)BP: 96/61 (91/ 55 - 130/70)Blood pressure source: Monitor -EXAM- GEN ERAL: Well developed, well nourished, in no apparent distre ss.HEAD: Normocephalic, atraumatic.EYES: R cornea is sca rred,EARS: External ears without deformity, erythema or toni maNOSE: No deformity, no discharge, no inflammation, no lesions.MOUTH: oropharynx moist and pink. no ton sillar hypertrophy, no exudate, no mucosal lesionsNECK: No masses, no thyromegaly, no abnormal cervical nodes, trac hea midline.CHEST: Grossly normal appearance.LUNGS: Respirations unlabored, clear to auscultation bi laterally, no wheezing, no ronchi, no ralesHEART: Regular r ate and rhythm, normal S1, S2, no murmurs, no rubs, no g allops, no clicks.ABDOMEN: + BS soft, flat, nontender, the liver and spleen are not palpable, no palpable masses, no herniasMUSCULOSKELETAL: No obvious deformitiesEX TREMITIES: No clubbing, cyanosis or edemaNEUROLOGICAL: Aler t and oriented to person, place, and time. no facial a symmetry, tongue and uvula are midline, normal speech. Mov es all extremities symmetrically, normal tone,PULSES: N ormal carotid pulses without bruits. Normal pulses delmy aterally at radial, dorsalis pedis and posterior tibial locations.SKIN: No pallor, no jaundice, no rash, normal turgorLYMPH NODES: None palpable cervical, axill amador, supraclavicular or inguinal locationsPSYCHIATRIC : Mood euthymic. Affect congruent, Normal eye contact, normal speech. thought process and thought content inta ct. -- DATA -- LABS GLU BED (11/06/21 16:33)GLUBED 352 H VE NOUS BLOOD GAS (11/06/21 16:22)VENOUS BLOOD GAS PH 7.19 LVE NOUS BLOOD GAS PCO2 37 LVENOUS BLOOD GAS PO2 45 HVBG HCO3 14 LVBG BASE EXCESS -14 LVENOUS BLOOD GAS TYPE VenousVEN OUS BLOOD GAS FIO2 28.0VBG VENT MODE NCVENOUS BLOOD GAS SI TE A-Line GLU BED (11/06/21 15:32)GLUBED 374 H GLU BED ( 14:27)GLUBED 425 *H LACTIC ACID (11/06/21 14:15) LACTIC ACID 1.8 VITB12 (11/06/21 14:15)VITAMIN B12 3945 H BA SIC METABOLIC PANEL (11/06/21 14:15) SODIUM 135POTAS SIUM 4.3CHLORIDE 103CARBON DIOXIDE 15L LANION GAP 21. 3 D HGLUCOSE 418*H *HBLOOD UREA NITROGEN 40H HGLOMER ULAR FILTRATION RATE 34 LCREATININE 1.9H HBUN/CREATIN INE RATIO 21.1 HCALCIUM 7.7 L TSH (11/06/21 14:15)THYROID STIMULATING HORMONE 0.72 T3UP (11/06/21 14:15)T3 UPTAKE 35. 0 PHOS (11/06/21 14:15)PHOSPHOROUS 5.1 H T4 (11/06/21 1 4:15)T4 (THYROXINE) 4.6 L URINALYSIS COMPLETE (11/06/21 13:30)UA COLOR STRAWUA APPEARANCE CLEARUA GLUCOSE DIPSTI CK 3+ NATHALIE BILIRUBIN DIPSTICK NEGATIVEUA KETONE DIPSTICK 2+ NATHALIE SPECIFIC GRAVITY 1.017UA BLOOD DIPSTICK 1+ NATHALIE P H DIPSTICK 5.0UA PROTEIN DIPSTICK NEGATIVEUA UROBILINOGEN D IPSTICK NEGATIVEUA NITRITE DIPSTICK NEGATIVEUA LEUKOCYTE ESTERASE DIPSTICK TRACE NATHALIE MICROSCOPIC NEEDED? YES NATHALIE W BC 51-100 NATHALIE RBC 0-2UA BACTERIA NONE SEENUA SQUAMOUS CELL S RAREUA MUCUS OCCASIONAL GLU BED (11/06/21 12:42)GLUBED 483 *H GLU BED (11/06/21 11:03)GLUBED 593 *H ISTAT BLOOD GA S VENOUS (11/06/21 10:23)IONIZED CALCIUM 1.13VENOUS BLOOD GAS PH 7.12 *LVENOUS BLOOD GAS PCO2 28 LVENOUS BLOOD GA S PO2 57 HVBG HCO3 9 LVBG BASE EXCESS -20 LVENOUS BLOOD GAS O2 SAT 79 HTOTAL CO2 CONTENT 10.0 *LHEMOGLOBIN POC 12.2 HEMATOCRIT POC 36.0 LSODIUM POC 128 LPOTASSIUM POC 5.3 HGL UCOSE POC > 625 *H BASIC METABOLIC PANEL (11/06/21 10:15)SOD IUM 127L LPOTASSIUM 5.1CHLORIDE 93L LCARBON DIOXIDE 9L LA NION GAP 30.1 HGLUCOSE 680*H *HBLOOD UREA NITROGEN 45H HG LOMERULAR FILTRATION RATE 29 LCREATININE 2.2D H D HBUN/CRE ATININE RATIO 20.5 HCALCIUM 8.8 TROP-I HIGH SEN ( 2 10:15)TROP-I HIGH SENSITIVITY 289 *H ACETNQL ( 10:15)ACETONE QUAL LARGE H CK (11/06/21 10:15)CR EATINE KINASE (CK) 108 MINOO (11/06/21 10:15)AMYLASE 42 P HOS (11/06/21 10:15)PHOSPHOROUS 7.0 H VITD25 ( 10:15)VITAMIN D 25-HYDROXY 18 L CBC W/O DIFF ( 10:15)WHITE BLOOD CELL 10.3RED BLOOD CELL 3.60HE MOGLOBIN 11.3L LHEMATOCRIT 34.2L LMEAN CELL VOLUME 95MEAN CELL HGB 31.4MEAN CELL HGB CONCENTRATION 33.0RED CELL DIS TRIBUTION WIDTH 13.2PLATELET COUNT 248 PROTHROMBIN TIME (0 11/06/21 10:15)PROTHROMBIN TIME PATIENT 9.9INTERNATIONAL NORMAL RATIO 0.9 PTT (11/06/21 10:15)THROMBOPLASTIN MARY JO E PARTIAL 30.2 OSMO (11/06/21 10:15)OSMOLALITY SERUM 339 H LIVER FUNCTION PANEL (11/06/21 10:15)TOTAL PROTEIN 7. 3ALBUMIN 3.3 L GLOBULIN 4.0 HBILIRUBIN TOTAL 0.5BILIRUBIN DIRECT 0.2BILIRUBIN INDIRECT 0.3SGOT/AST 25SGPT/ALT 25A LKALINE PHOSPHATASE 91 GLU BED (11/06/21 10:12)GLUBED > 600 *H -- ASSESSMENT AND PLAN -- PROBLEMS: 1: Type 1 diabe susan mellitus with ketoacidosis, uncontrolledA/P: lik rustam due to missing medicationsendocrine consultaotnhydratei nsulin 2: Type 1 diabetes mellitus with diabetic chronic k idney disease 3: Type 1 diabetes mellitus with diabeti c polyneuropathy 4: Diabetic visual loss: better e ye: profound vision impairment; lesser eye:near-tota l vision impairment, with macular edema, with retinopathy , associatedwith type 1 diabetes mellitus 5: Mixed hyperlipidemia 6: Hypertension 7: CAD (coronary artery disease) 8: Peripheral arterial disease 9: Chron ic kidney disease, stage 3aA/P: due to DM Signed in [facility] by Erasmo Fay MD on 11/06/21 at 17:21 Joselyn ctronically Signed by Erasmo Fay MD on 11/06/21 at 1721ATTENTION EDITS and/or ADDENDA must be ma de in Patient Keeper for this note. Edits and ammen dments created in [facility] are not visible in [facility] nt Keeper or the legal medical record (HPF). RPT #: [id number] OF REPORT HPHistory and physical [id number] lable for patient [id number] 7:21:50 2021-11-06 [id number] [facility] 10:24:00 [facility])EMERGENCY PROVIDER REPORTREPORT#:[id number] REPORT STATUS: SignedDAT E:11/06/21 TIME: 1024 PATIENT: DANIELE HINKLE UNIT #: [id number]#: [id number] ROOM: [address] D: AAGE: 71 SEX: F PCP PHYS: Erasmo Fay MDSERVICE D AUTHOR: Donya Haynes KNIFEMAN * ALL edits or amend ments must be made on the electronic/computer document * Donya Mcclellan 11/06/21 1024:HPI-General Illness GeneralIniti al Greet Date/Time 11/06/21 1012 PresentationChief Compla int __ (elevated bs), Weakness Past Medical History - A dultStated Complaint HIGH BLOOD SUGARAllergiesCoded Allergi es:codeine (Intermediate, RASH-HIVES 08/10/20)lisinopril (Intermediate, RASH-RAISED 08/10/20) Home Medica tionsActive ScriptsIsosorbide Mononitrate Sr (Imdur) 90 MG P O DAILY Isosorbide Mononitrate Sr (Imdur) 90 MG PO DAILY #90 TAB Ref 3 Prov: 08/12/20Ranolazine Er (Ranexa) 1,000 MG PO Q12HR Ranolazine Er (Ranexa) 1,000 MG PO Q12HR # 180 TAB Prov: 08/12/20Gabapentin (Neurontin) 300 MG PO B EDTIME Gabapentin (Neurontin) 300 MG PO BEDTIME #90 CAP Prov: 08/12/20Losartan (Cozaar) 25 MG PO DAILY Losarta n (Cozaar) 25 MG PO DAILY #90 TAB Prov: 08/12/20Cholecalcif shelby (Vitamin D3) (Vitamin D3) 4,000 UNIT PO QPM Chol ecalciferol (Vitamin D3) (Vitamin D3) 4,000 UNIT PO QPM #90 TAB Prov: 04/09/21Ezetimibe (Zetia) 10 MG PO DAILY Ezetim dave (Zetia) 10 MG PO DAILY #30 TAB Ref 3 Prov: 04/09/21Clopi dogrel Bisulfate (Plavix) 75 MG PO DAILY Clopidogrel Bi sulfate (Plavix) 75 MG PO DAILY #30 TAB Ref 3 Prov: 04/09/21Isosorbide Mononitrate Sr (Imdur) 30 MG PO SPECIAL INST Isosorbide Mononitrate Sr (Imdur) 30 MG PO SPECIAL INST #30 TAB Ref 3 Prov: 04/09/21Nitroglycerin ( Nitrostat) 0.4 MG SL Q5M PRN CHEST PAIN Nitroglycerin (Nitr ostat) 0.4 MG SL Q5M PRN CHEST PAIN #25 TAB Ref 1 Prov: 02/18 Reported MedicationsMetoprolol Succ Xl (Toprol X l) 25 MG PO DAILY Insulin Lispro (Humalog) Insulin Glargine (Lantus) 20 UNITS SUBQ QAM Aspirin 81 MG PO BEDTIME polyethy gloria glycoL 3350 (Miralax) 1 PKT PO DAILY Insulin Lispro (Hu malog) Jameel Viera 11/06/21 1103:HPI-General Illness Free Text HPI NotesFree Text HPI [id number] female p ast medical history diabetes with frequent admissions to the ICU for DKA presents emergency department with blood sugar r eading high at home. States she sometimes forgets to take he r insulin, she is unsure how many times she has had insulin over the last 7 days. Denies any acute medical complaint, polyuria or polydipsia, no abdominal pain or shortness of breath no fevers or urinary symptoms. PresentationChief Co mplaint __ (HIGH BG) Review of Systems Free Text ROS NotesF ree Text ROS NotesROS includes areas listed below and is negative except as stated in the HPI: - CONSTITUTIONAL: f ever or chills. - HEENT: changes in vision or hearing. - RESPIRATORY: SOB and cough. - CV: palpitations o r CP. - GI: abdominal pain, nausea, vomiting or diarrhea. - : Denies dysuria and urinary frequency. - SKIN: Denies ra sh and pruritus. - NEUROLOGICAL: numbness tingling or w eakness. - PSYCHIATRIC: hallucinations or suicidal thoughts . Past Medical History - AdultFree Text PMH NotesPatien t reports no additional medical, surgical, family, or soci al history relevant to the chief complaint other than as de scribed above or in the HPI. Physical Exam Vital SignsVi terra SignsFirst Documented: Result Date Time Pulse O x 92 11/06 1033 B/P 111/65 11/06 1033 B/P Mean 80 11/06 103 3 O2 Delivery Room air 11/06 1033 Temp 36.7 11/06 103 3 Pulse 108 11/06 1033 Resp 18 11/06 1033 Last Documented: R esult Date Time Pulse Ox 92 11/06 1033 B/P 111/65 11/06 103 3 B/P Mean 80 11/06 1033 O2 Delivery Room air 11/06 1033 Te mp 36.7 11/06 1033 Pulse 108 11/06 1033 Resp 18 11/06 1 033 Review of Vital Signs Reviewed Free Text PE NotesFree T ext PE NotesPHYSICAL EXAM: - GENERAL: Alert, conversant . No acute distress. - EYES: EOMI. Anicteric. - HENT: Moist mucous membranes. - LUNGS: Nonlabored breathing. No acc essory muscle use. Tachypneic, smells of ketones - CARD IOVASCULAR: Regular rate and rhythm. Warm, well-perfused. - ABDOMEN: Soft, non-tender and non-distended. - NEUROLOGIC : Moving extremities spontaneously. - PSYCHIATRIC: Lorenzo ative. Appropriate mood and affect. Interpretation Diag nostics Lab Results InterpretationResultsLaboratory Tests 1015:[Embedded Image Not Available]Laboratory Te sts: 11/06 11/06 11/06 1012 1015 1015 Chemistry Sodium (135 - 145 mmol/L) 127 L Potassium (3.5 - 5.1 mmol/L) 5.1 C hloride (98 - 107 mmol/L) 93 L Carbon Dioxide (21 - 32 mmol/ L) 9 L Anion Gap (2.0 - 16.0) 30.1 H BUN (4 - 23 mg/dL) 45 H Creatinine (0.6 - 1.5 mg/dL) 2.2 H Glomerular Fi ltr Rate (>60 ml/min) 29 L BUN/Creatinine Ratio (12.0 - 2 0.0) 20.5 H Glucose (65 - 99 mg/dL) 680 *H POC Glucose (70 - 105 mg/dL) > 600 *H Serum Osmolality (278 - 305 mOsm/kg) 33 9 H Calcium (8.5 - 10.1 mg/dL) 8.8 Phosphorus (2.5 - 4.9 mg /dL) 7.0 H Total Bilirubin (0.2 - 1.2 mg/dL) 0.5 Direct Delmy irubin (0.0 - 0.3 mg/dL) 0.2 Indirect Bilirubin (0.0 - 0.8 mg/dL) 0.3 AST (15 - 37 U/L) 25 ALT (6 - 50 U/L) 25 Total Alk Phosphatase (45 - 117 U/L) 91 Total Creatine Kin ase (26 - 308 U/L) 108 Troponin I High Sens (0 - 53 pg/mL) 289 *H Total Protein (6.4 - 8.2 g/dL) 7.3 Albumin (3.4 - 5.0 g/dL) 3.3 L Globulin (2.3 - 3.5 g/dL) 4.0 H Amylase (2 5 - 115 U/L) 42 Coagulation INR (0.8 - 1.1 RATIO) 0.9 A PTT (25.1 - 36.5 SECONDS) 30.2 PT Patient/Control Mix (9.4 - 12.5 SECONDS) 9.9 Hematology WBC (4.5 - 11.0 10 3/uL) 10.3 RBC (3.50 - 5.50 10 6/uL) 3.60 Hgb (12.0 - 16.0 g/dL ) 11.3 L Hct (37.0 - 55.0 %) 34.2 L MCV (81 - 102 fL) 95 MCH (26.0 - 34.0 pg) 31.4 MCHC (31.0 - 37.0 g/dL) 33.0 RDW (11.6 - 14.4 %) 13.2 Plt Count (150 - 400 10 3/uL) 248 T oxicology Acetone, Qual (NEGATIVE) LARGE H 11/06 1023 Bloo d Gas Total CO2 (22 - 30 mmol/L) 10.0 *L VBG pH (7.32 - 7.42 pH) 7.12 *L VBG pCO2 (41 - 51 mmHg) 28 L VBG pO2 (25 - 4 0 mmHg) 57 H VBG HCO3 (24 - 25 mmol/L) 9 L VBG O2 Sat (Calc ) (70 - 75 %) 79 H VBG Base Excess (-5 - 5 mmol/L) -20 L I onized Calcium (1.12 - 1.32 mmol/L) 1.13 Chemistry POC Sodium (138 - 146 mmol/L) 128 L POC Potassium (3.5 - 4.9 mmo l/L) 5.3 H POC Glucose (70 - 105 mg/dL) > 625 *H Hematology POC Hgb (12 - 17 g/dL) 12.2 POC Hct (38 - 51 %) 36.0 L E CG #1 InterpretationText/Dict NoteSinus rhythm rate [address] or T wave abnormality Re-Evaluat ion MDM Free Text MDM NotesFree Text MDM [id number]-[id number] d female presenting with elevated blood sugars found to b e in DKA likely from insulin noncompliance. No evidence o f infection on her work-up no indication for empiric antibio tics at this time. Will start insulin drip and DKA isak col, admit ICU ED CourseMedication(s) OrderedMedication(s) Ordered:Electrolytic, Caloric, And Pablo Sig/Chris S tart time Last Medication Dose Route Stop Time Status Admi n Dextrose/Sodium 1,000 ML ASDIR 11/06 1045 AC Chl oride IV 12/06 1046 Dextrose/Water 50 ML ASDIR 11/06 1045 DC IV 12/06 1046 Potassium 20 MEQ ASDIR 11/06 1045 CKD Bicarbonate/Citric PO 12/06 1046 Acid Potassium Chloride 100 ML ASDIR 11/06 1045 CKD IV 12/06 1046 Sodium Bicarbonate 100 MEQ ASDIR 11/06 1045 CKD Sterile Water 400 ML IV 12/06 1046 Sodium Bicarbonate 50 MEQ ASDI R 11/06 1045 CKD Sterile Water 200 ML IV 12/06 1046 Sodi um Chloride 1,500 ML ONCE ONE 11/06 1045 DC IV 11/06 1046 So dium Chloride 1,000 ML ASDIR 11/06 1045 AC IV 12/06 1 046 Sodium Chloride 1,000 ML ASDIR 11/06 1045 AC IV 12/06 1 046 Sodium Chloride 1,000 ML X1ED STA 11/06 1022 DC 11/06 IV 11/06 1121 1028 Hormones And Synthetic Substit Sig/Chris Start time Last Medication Dose Route Stop Time Status Adm in Glucagon 1 MG ASDIR PRN 11/06 1045 DC IM 12/06 1046 Insul in Human Regular 10 UNIT ONCE ONE 11/06 1045 DC IV 11/06 1046 Insulin Human Regular 100 UNIT ASDIR 11/06 1045 CKD Sodium Chloride 100 ML IV 12/06 1046 Insulin Glargine 15 UNITS X1ED STA 11/06 1037 DC 11/06 SUBQ 11/06 1038 111 8 Insulin Human Regular 10 UNIT X1ED STA 11/06 1022 DC IV 11/06 1023 1027 Skin And Mucous Membrane Agent Sig/Chris Start time Last Medication Dose Route Stop Time Status Admi n Mupirocin 1 APPLIC BID 11/06 1700 AC NASAL 11/11 0901 Pat ient Discharge Departure Vital Signs/ConditionVital S ignsFirst Documented: Result Date Time Pulse Ox 92 07/09 1 033 B/P 111/65 07/09 1033 B/P Mean 80 07/09 1033 O2 Deli very Room air 07/ 1033 Temp 36.7 07/ 1033 Pulse 108 0 7/ 1033 Resp 18 07/ 1033 Last Documented: Result Date Time Pulse Ox 92 07/09 1033 B/P 111/65 07/09 1033 B/P Mean 80 07/09 1033 O2 Delivery Room air 07/ 1033 Temp 36.7 07/09 1033 Pulse 108 07/09 1033 Resp 18 07/ 1033 All jen l signs available at the time of this entry have been re viewed. Clinical ImpressionClinical ImpressionPrimary Im pression: DKA (diabetic ketoacidosis) Disposition Decision Admit Admit Physician Name Erasmo Fay MD Admit [facility] Hospitalist Request Time 1123 Request Date 11/06 )( Admission Accepts Yes )( Accepted Time 1123 )( A ccepted Date 11/06/21 Call Information agrees with eval Critical CareTime Spent (minutes): 78Services Performed P atient management by me, Time spent at bedside, Reviewi ng test results, Reviewing imaging, Discussing patient c are, Documentation in record, Time with fam/surrogate Separately billable procedures excluded from time.Patient w as critically ill due to:DKAMy treatment and manage ment were:IV insulin bolus and drip, IV fluids, order ing review of labs and imaging, review of prior records, co ntinuous cardiac monitoring, continuous pulse oximetry, d iscussion with ICU and admitting providers CC Note 1Total critical care time [78] minutes. Total critical care time documented does not include time spent on separately billed procedures or the services of residents, students, nurses o r physician assistants. I personally saw and examined the angel luis aguilar. I have reviewed all diagnostic interpretations and treatment plans as written. I was present for the ingram port ions of any proceduresperformed and the inclusive time noted in any critical care statement. Critical care time incl udes patient management by me, time spent at the [facility] ents bedside,time to review lab and imaging results, discussing patient care, documentation in the medical recor d, and time spent with the family or caregiver. Electronical ly Signed by Donya Haynes NP on 11/06/21 at 1235Electro nically Signed by Jameel Viera MD on 11/06/21 at 1236R PT #:[id number] OF REPORTEDEmergency depart ment [id number]:24:[id number] vailable for patient [id number]:36:0 7 2021-11-06 [id number] [facility] 10:10:[address] [address] PATIENT NAME: DANIELE HINKLE ADMIT D ATE: 11/06/21ACCOUNT NO: [id number] ROOM NO: NC.IC1 6 AGE: 71 REPORT TYPE: eELECTROCARDIOGRAM SEX: F ADMITTING PHYSICIAN:Camilla Fay MD ATTENDING PHYSICIAN:Erasmo spann MD Order:[id number] Reason : DKA Test Date/T eduardo Stamp:Sat Nov 06 2021 10:10:01Blood Pressure : * / mmHGVent. Rate : 107 BPM Atrial Rate : 107 BPM P -R Int : 118 ms QRS Dur : 084 ms QT Int : 339 ms P-R-T Ax es : 090 081 071 degrees QTc Int : 453 ms Sinus tachycard iaProbable left atrial enlargementBorderline right axis deviationRepolarization abnormality, prob rate relatedAbnormal ECG Confirmed by MD Margarita, [facility] ([id number]) on 11/07/2021 6:11:39 PM Referred By: Erasmo whitman Confirmed by:Jas Avila MD Electronically Si gned by Jas Avila MD on 11/07/21 at 1811 [facility] [address] [facility] [address] PATIENT NAME: DANIELE HINKLE ACCOUN T #: [id number] 31AVAvailab le for patient [id number]:1 1:56 2021-10-03 [id number]:04:00 [facility] [place] 13:04:00 [place] ([facility])Med Order Sheet REPORT #: [id number] REPORT STATUS: Signed DATE: 10/03/21 TIME: 1304 PATIENT : DANIELE HINKLE UNIT #: [id number] # : [id number] ROOM #: NC.2302 BED: 1 : 3 AGE: 71 SEX: F ATTEND: Erasmo Fay MD ADM DT: AUTHOR: Britney Winchester DO ATTENTION EDITS and/or ADDENDA must be made i n Patient Keeper for this note. Edits and ammendments c reated in [facility] are not visible in Patient Keeper or the legal medical record (HPF). Discharge Medication Reconciliatio n DISCHARGE MEDICATION LISTNew: cefUROXime axetil tablet Dos e: 500 MG PO BID, Disp: 12 tablet, Refills: 0 STOPPED HOSP ITAL MEDICATIONSDc'd: 1/2NS (1/2NS) 1000ML 200 MLS/HR IV ASDIRDc'd: D5W-1/2NS (D5W-1/2NS)1000ML 150 MLS/H R IV ASDIRDc'd: Dextrose 50% Syringe (D50W Syringe) 5 0ML IVASDIRDc'd: Docusate Sodium Cap (Colace Cap) 10 0MG PO BIDDc'd: Glucagon Inj(Glucagon Inj) 1MG IM ASDIR Dc'd: Insulin (Glargine) Inj (Lantus Inj) 20UNITSSUBQ QAMDc'd: Insulin Lispro InJ (HumaLOG Inj) 0 UNITS SUBQ AC HSDc'd: InsulinRegular Inj (HumuLIN R Inj) 100UNIT TITRA TE IV ASDIRin Sodium Chloride 0.9%(NS) 99MLDc'd: Mupir ocin Ointment 2% (Bactroban Ointment 2%) 1APPLIC NASA L BID X 10dosesDc'd: Ondansetron Inj (Zofran Inj) 4MG IV Q6H PRN nausea andvomitingDc'd: Potassium Chloride 20mEq IVPB (KCL 20mEq IVPB) 20MEQ 50 MLS/HRIV ASDIRDc'd: Potassi um Effervescent Tab (Effer-K Tab Effervescent) 20ME Q POASDIRDc'd: Sodium Bicarbonate Drip (Sodium Bic arbonate Drip) 100MEQ 200 MLS/HRIV in {Sterile Water 1000 mL} ({Sterile Water 1000mL}) 400MLDc'd: Sodium Bicar bonate Drip (Sodium Bicarbonate Drip) 50MEQ 200 MLS/HR IV in {Sterile Water 1000mL} ({Sterile Water 1000mL}) 200MLDc'd : Sodium Chloride 0.9% (NS) 1000ML 200 MLS/HR IV ASDIRElectronicallySigned in PatientKeeper by RA KATYA LYLES on 10/03/21 13:03 Electronically Keila d by Britney Winchester DO on 10/03/21 at 1304ATTENTION EDITS and/or ADDENDA must be ma de in Patient Keeper for this note. Edits and ammen dments created in [facility] are not visible in Patien t Keeper or the legal medical record ([facility]). RPT #: [id number] OF REPORT CLClinical [id number]:04:[id number] Available for patient [id number]:04:3 8 2021-10-03 [id number]:42:00 [facility] [place] 10:42:00 [facility] ([facility])Endocrinology Progress Note REPORT #: [id number] REPORT STATUS: Signed DATE: 10/03/21 T EDUARDO: 1042 PATIENT: DANIELE HINKLE UNIT #: [id number] ROOM #: NC.2302 BED: 1 : 3 AGE: 71 SEX: F ATTEND: Erasmo Fay MD ADM DT: AUTHOR: Nini Doan MD ATTENTION EDITS and/or ADDENDA must be made i n Patient Keeper for this note. Edits and ammendments c reated in [facility] are not visible in Patient Keeper or the legal medical record ([facility]). -- ASSESSMENT AND PLAN -- PROBLEMS : 1: Type 1 diabetes mellitus with ketoacidosis, uncontrolle dA/P: UNCONTROLLED (HGBA1C=>14%,HYPERGLYCEMIA) TYPE I DM IN DKA. DKA RESOLVED:JYV=244, 195 HS JOQRHUF=936 AG=11.4 . OBSERVEON SQ BASAL/BOLUS INSULIN.DISCUSSED WITH CHARGE AIMEE LUCERO FROM ENDOCRINE STANDPOINT FOR DISCHARGE ONCURRENT INS ULIN REGIMEN. -- SUBJECTIVE -- CHIEF COMPLAINT:HYPERG LYCEMIA HPI: ON RA. OUT OF ICU. HAVING BREAKFAST. TOLERA TING DIET.WANTS TO GO HOME. -REVIEW OF SYSTEMS- GENER AL: Negative for feverRESPIRATORY: Negative for dyspneaCARDIOVASCULAR: Negative for chest painGASTROINTESTINAL: Negative for abdominal pa in or nausea. No emesis.ENDOCRINE: Negative for polydi psia, polyuria -- OBJECTIVE -- VITALS (10/02 10:42 - 0 10/03 10:42):Temperature F: 98.2Temperature C: 36.7 (3 6.7 - 36.9)Temperature source: OralPulse Rate 83 (74 - 86)Respiratory rate: 17 (11 - 25)BP: 114/78 (99/ 63 - 166/87)Blood pressure source: Monitor -EXAM- GEN ERAL: Well developed, well nourished, in no apparent distre ss.HEAD: Normocephalic, atraumatic.NECK: trachea midline. CHEST: Grossly normal appearance.LUNGS: NORMAL CHEST WA LL MOVEMENT HEART: NO TACHYCARDIAABDOMEN: NON-DISTENDEDNEURO LOGICAL: NORMAL SPEECHPSYCHIATRIC: Alert and oriented to time, person, place -- DATA -- MEDICATIONS GLUCAGON 1 MG IM ASDIRONDANSETRON HCL/PF 4 MG IV Q6H PRNINSULIN R EGULAR, HUMAN with/in SODIUM CHLORIDE 100 mL BAG 100 UNI T IV ASDIRSODIUM BICARBONATE 8.4% with/in WATER FOR INJECTION,STERILE 50 MEQ IV ASDIRcefTRIAXone wit h/in SODIUM CHLORIDE 0.9% 1000 MG IV BEDTIMEPOTASSIUM BICARB ANGELA/CIT AC 20 MEQ PO ASDIRMUPIROCIN 1 APPLIC NASAL BIDDE XTROSE 50%-WATER 50 ML IV ASDIRPOTASSIUM CHLORIDE 20 ME Q IV ASDIRSODIUM CHLORIDE 0.9% 1000 ML IV ASDIRINSULI N GLARGINE 20 UNITS SUBQ QAMDEXTROSE 5%-0.45% SALINE 1000 M L IV ASDIRINSULIN LISPRO 0 UNITS SUBQ AC HSSODIUM CHL ORIDE 0.45% 1000 ML IV ASDIRSODIUM BICARBONATE 8.4% with/in WATER FOR INJECTION,STERILE 100 MEQ IV ASDIRDOCUSATE SODIU M 100 MG PO BID LABS GLU BED (10/03/21 07:57)GLUBED 231 H BA SIC METABOLIC PANEL (10/03/21 02:07)SODIUM 137POTASS IUM 4.4CHLORIDE 104CARBON DIOXIDE 26ANION GAP 11.4G LUCOSE 195H HBLOOD UREA NITROGEN 24H HGLOMERULAR FILTRATION RATE 48 LCREATININE 1.4BUN/CREATININE RATIO 17.1CALCIUM 7.9 L PHOS (10/03/21 02:07)PHOSPHOROUS 2.8 PHOS (10/02/21 22:30)PHOSPHOROUS 2.7 BASIC METABOLIC PANEL ( 22:30)SODIUM 137POTASSIUM 4.4CHLORIDE 104CARBON DIOXIDE 24ANION GAP 13.4GLUCOSE 183H HBLOOD UREA NITROGE N 23GLOMERULAR FILTRATION RATE 48 LCREATININE 1.4 BUN/CREATININE RATIO 16.4CALCIUM 8.0 L GLU BED (10/02/21 19:32)GLUBED 213 H GLU BED (10/02/21 17:19)GLUBE D 129 H K (10/02/21 17:15)POTASSIUM 4.2 BASIC METABOLIC PA NASIMA (10/02/21 17:15)SODIUM 136POTASSIUM 4.2CHLORIDE 102CARBON DIOXIDE 26ANION GAP 12.2GLUCOSE 128H HBLOOD URE A NITROGEN 20GLOMERULAR FILTRATION RATE 52 LCREATININE 1.3BUN/CREATININE RATIO 15.4CALCIUM 8.5 PHOS ( 17:15)PHOSPHOROUS 2.6 LACTIC ACID (10/02/21 17:1 5)LACTIC ACID 1.2 MAG (10/02/21 14:40)MAGNESIUM 1.9 BASIC METABOLIC PANEL (10/02/21 14:40)SODIUM 136POTASSIUM 4.8CHL ORIDE 104CARBON DIOXIDE 26ANION GAP 10.8GLUCOSE 121H H BLOOD UREA NITROGEN 22GLOMERULAR FILTRATION RATE 52 LCREATI NINE 1.3BUN/CREATININE RATIO 16.9CALCIUM 7.9 L PHOS ( 10/02/21 14:40)PHOSPHOROUS 2.5 GLU BED (10/02/21 11:15)GL UBED 114 H -- ATTESTATION -- TIME SPENT ON PATIENT CARE: - Direct 30 minutes CARE ACTIVITIES / CARE COORDINATION: - I have reviewed the history and repeated the ingram elemen ts - I have seen and examined this patient - I have reviewed the progress in the clinical course since the lastex amination - I have discussed the patient's condition with ot her members of the care team ADDITIONAL DETAIL:I HAVE SPENT 30 MINUTES IN THE EVALUATION AND TREATMENT OF THIS PATIENT. Signed in PatientKeeper by Nini Doan MD on 09/19 at 10:46 at 1046ATTENTION EDITS and/or ADDENDA must be ma de in Patient Keeper for this note. Edits and ammen dments created in [employer] are not visible in Patien t Keeper or the legal medical record (HPF). [facility] #: [id number] OF REPORT PRProgress [id number] Available for patient [id number]:47:4 0 2021-10-02 [id number]:57:00 [facility] [place] 16:57:00 [place] ([facility])Family Med. History PhysicalREPORT #: [id number] REPORT STATUS: Signed DATE: 10/02/21 T EDUARDO: 1657 PATIENT: DANIELE HINKLE UNIT #: [id number] ROOM #: NC.2302 BED: 1 : 3 AGE: 71 SEX: F ATTEND: Erasmo Fay MD ADM DT: AUTHOR: Britney Winchester DO ATTENTION EDITS and/or ADDENDA must be made i n Patient Keeper for this note. Edits and ammendments c reated in [facility] are not visible in Patient Keeper or the legal medical record (HPF). -- HISTORY -- ADMISSION DATE:10-01 PRIMARY CARE PROVIDER:Erasmo Fay MD IEF COMPLAINT:hyperglycemia, altered mental status H PI:71yo BF with uncontrolled diabetes presented to ED with signs of elevatedsugars and DKA. Pt reports taking insuli n as given by her normallywithout missing doses. St ates over the last fewdays started feeling unwell withnaus ea, vomiting and weakness. Notes increased urination and some burning inthe last week but denies any fever/chi lls, , diarrhea but has someconstipation. Her a1c is >1 4. PAST MEDICAL HISTORY:DM, diabetic retinopathy, diabet ic nephropathy, diabetic neuropathy, visionloss, CA D, OR, HTN , hyperlipidemia, FAMILY HISTORY:NA -- ALLERGIES /HOME MEDS -- ALLERGIES:codeine (Intermediate - Allergy)lis inopril (Intermediate - Allergy) -- SUBJECTIVE -- -REVIE W OF SYSTEMS- GENERAL: Negative for fever, +malaise,+ fatigue.EYES: +chronic vision lossEARS/NOSE/THRO AT: Negative for sore throat. No otalgia. No rhinorrhea.RESPIRATORY: Negative for dyspnea or wheeze. No cough.CARDIOVASCULAR: Negative for chest pain or palpitations. No extremity swelling.GASTROINTEST INAL: Negative for abdominal ,+N/V, No diarrhea. +cons tipation GENITOURINARY: Negative for ,urgency. No gross h ematuria. +frequency/+dysuriaSKIN: Negative for rashes. No pruritus.ENDOCRINE: Negative for cold intoleranc e, heat intolerance, polyphagia, +polydipsia, +polyuria , +fatigue. -- OBJECTIVE -- VITALS (10/01 16:57 - 10/02 16:57):Temperature F: 98.2 (97.7 - 98.3)Temperat ure C: 36.7Temperature source: OralPulse Rate 77 (74 - 111)Respiratory rate: 20 (8 - 25)BP: 154/87 (107 /62 - 166/92)Blood pressure source: Monitor I/Os ( 3 07:00 - 10/02 07:00):Net 587.00Intake 1,287.00Output 70 0 -EXAM- GENERAL: Well developed, well nourished, in no a pparent distress, frail female, appears older than state d ageEYES: R eye with chronic vision loss, L eye with EOMI, PERRLAMOUTH: Oropharynx without deformities or l esions, normal mucosa..LUNGS: Clear bilaterally with nor mal respiratory effort.HEART: Regular rate and rhyth m, normal S1, S2, no murmurs, no rubs, no gallops, no clicks.ABDOMEN: Soft, non-tender, no organomegal y, no masses noted.MUSCULOSKELETAL: No deformity, no s coliosis noted of thoracic or lumbar spine, joint ROM regulo ssly normalNEUROLOGICAL: No focal deficits, cranial n erves II-XII grossly intact, normal sensation, normal coordination, normal muscle strength, normal ton e.SKIN: Intact without significant lesions, or rashes. - - DATA -- LABS MAG (10/02/21 14:40)MAGNESIUM 1.9 BASIC MET ABOLIC PANEL (10/02/21 14:40)SODIUM 136POTASSIUM 4.8CHL ORIDE 104CARBON DIOXIDE 26ANION GAP 10.8GLUCOSE 121H HBLOOD UREA NITROGEN 22GLOMERULAR FILTRATION RATE 52 LCREATI NINE 1.3 BUN/CREATININE RATIO 16.9CALCIUM 7.9 L PHOS ( 14:40)PHOSPHOROUS 2.5 GLU BED (10/02/21 11:15)GL UBED 114 H GLU BED (10/02/21 09:05)GLUBED 190 H MAG (10/02 08:09)MAGNESIUM 1.7 L PHOS (10/02/21 08:09)PHOSP HOROUS 2.5 BASIC METABOLIC PANEL (10/02/21 08:09)SODIUM 13 8POTASSIUM 4.0CHLORIDE 105CARBON DIOXIDE 24ANION GAP 13.0 D GLUCOSE 232H HBLOOD UREA NITROGEN 26H HGLOMERULAR FILTRA TION RATE 44 LCREATININE 1.5BUN/CREATININE RATIO 17.3CALCI UM 8.1 L GLU BED (10/02/21 08:06)GLUBED 227 H GLU BED ( 07:18)GLUBED 226 H GLU BED (10/02/21 06:13)GLUBE D 188 H GLU BED (10/02/21 05:14)GLUBED 257 H VENOUS BLOOD G (10/02/21 04:48)VENOUS BLOOD GAS PH 7.25 LVENOUS BLOOD GAS PCO2 40 LVENOUS BLOOD GAS PO2 36VBG HCO3 17 LVB G BASE EXCESS -10 LVENOUS BLOOD GAS O2 SAT 70VENOUS BLO OD GAS TYPE VenousVENOUS BLOOD GAS FIO2 21.0VBG VENT MODE Ro om Air LACTIC ACID (10/02/21 04:39)LACTIC ACID 2.2 H PH OS (10/02/21 04:10)PHOSPHOROUS 4.1 BASIC METABOLIC PANEL (10/02/21 04:10)SODIUM 138POTASSIUM 3.8CHLORIDE 104CARBON DIOXIDE 18L LANION GAP 19.8 D HGLUCOSE 309H HBLO OD UREA NITROGEN 29H HGLOMERULAR FILTRATION RATE 41 LCRE ATININE 1.6H HBUN/CREATININE RATIO 18.1CALCIUM 8.0 L GLU BED (10/02/21 03:59)GLUBED 286 H GLU BED (10/02/21 03:03)GLUBED 323 H GLU BED (10/02/21 02:07)GLUBE D 351 H UA RFLX MICR amp;CULT IF INDICATED (10/02/21 01:10) UA COLOR YELLOWUA APPEARANCE CLEARUA GLUCOSE DIPSTICK 3+ NATHALIE BILIRUBIN DIPSTICK NEGATIVEUA KETONE DIPSTICK 2+ NATHALIE SPECIFIC GRAVITY 1.016UA BLOOD DIPSTICK 1+ NATHALIE P H DIPSTICK 5.0UA PROTEIN DIPSTICK NEGATIVEUA UROBILINOGEN D IPSTICK NEGATIVEUA NITRITE DIPSTICK NEGATIVEUA LEUKOCYTE ESTERASE DIPSTICK NEGATIVEUA MICROSCOPIC NEEDED? YES NATHALIE WBC 0-2UA RBC 0-2UA BACTERIA NONE SEENUA SQUAMOUS CELLS N one seen GLU BED (10/02/21 00:57)GLUBED 438 *H GLU BED (0 10/02/21 00:13)GLUBED 459 *H GLU BED (10/02/21 00:06)GLUB ED 271 H VENOUS BLOOD GAS (10/01/21 23:39)VENOUS BLOOD GA S PH 7.02 *LVENOUS BLOOD GAS PCO2 41VENOUS BLOOD GAS PO2 4 4 HVBG HCO3 10 LVBG BASE EXCESS -20 LVENOUS BLOOD GAS O2 SAT 67 LVENOUS BLOOD GAS TYPE VenousVENOUS BLOOD GAS FIO2 21.0V BG VENT MODE Room Air CBC W/AUTO DIFF (10/01/21 22:54)W MEHRDAD BLOOD CELL 7.7RED BLOOD CELL 3.63HEMOGLOBIN 11.1L LHEM ATOCRIT 34.7L LMEAN CELL VOLUME 96MEAN CELL HGB 30.6MEAN CELL HGB CONCENTRATION 32.0RED CELL DISTRIBUTION WIDTH 12 .7PLATELET COUNT 193MEAN PLATELET VOLUME 11.5NEUTROPHIL % 8 4.9 HIMMATURE GRANULOCYTE % 1.2 HLYMPHOCYTE % 9.9 LM ONOCYTE % 3.4EOSINOPHIL % 0.1BASOPHIL % 0.5NUCLEATED RBC % 0.0NEUTROPHIL # 6.50IMMATURE GRANULOCYTE # 0.090 LYMPHOCYTE # 0.76 LMONOCYTE # 0.26EOSINOPHIL # 0.01BASOPHI L # 0.04NUCLEATED RBC # 0.000 ACETNQL (10/01/21 22:5 4)ACETONE QUAL MODERATE H OSMO (10/01/21 22:54)OSMOLALITY SERUM 326 H CK (10/01/21 22:54)CREATINE KINASE (CK) 235 PROT HROMBIN TIME (10/01/21 22:54)PROTHROMBIN TIME PATIENT 10.6INTERNATIONAL NORMAL RATIO 1.0 BASIC METABOL IC PANEL (10/01/21 22:54)SODIUM 133L LPOTASSIUM 4.3CHLORI DE 97L LCARBON DIOXIDE 13L LANION GAP 27.3 HGLUCOSE 52 5*H *HBLOOD UREA NITROGEN 33H HGLOMERULAR FILTRATION RATE 38 LCREATININE 1.7H HBUN/CREATININE RATIO 19.4CALCI UM 8.9 LACTIC ACID (10/01/21 22:54)LACTIC ACID 3.5 H PT T (10/01/21 22:54)THROMBOPLASTIN TIME PARTIAL 31.3 PHOS (07/20 22:54) PHOSPHOROUS 5.6 H MINOO (10/01/21 22:54)MINOO LASE 54 COVID 19 INH AG (10/01/21 21:07)COVID 19 INHOUSE AG NEGATIVE GLU BED (10/01/21 21:04)GLUBED 502 *H L ACTIC ACID (10/01/21 20:57)LACTIC ACID 2.3 H CBC W/AUTO DIF F (10/01/21 20:03)WHITE BLOOD CELL 5.2RED BLOOD CELL 3.38 LH EMOGLOBIN 10.3L LHEMATOCRIT 31.9L LMEAN CELL VOLUME 94MEAN CELL HGB 30.5MEAN CELL HGB CONCENTRATION 32.3RED CELL DIS TRIBUTION WIDTH 12.8PLATELET COUNT 180MEAN PLATELET VOLUME 12.0NEUTROPHIL % 69.6IMMATURE GRANULOCYTE % 1.0L YMPHOCYTE % 21.2MONOCYTE % 6.6EOSINOPHIL % 0.6BASOPHIL % 1.0 NUCLEATED RBC % 0.0NEUTROPHIL # 3.59IMMATURE GRANULOCYTE # 0.050LYMPHOCYTE # 1.09 LMONOCYTE # 0.34EOSINOPHI L # 0.03BASOPHIL # 0.05NUCLEATED RBC # 0.000 TROP-I HIGH SEN (10/01/21 20:03)TROP-I HIGH SENSITIVITY 7 LIVER FUNCTION PANEL (10/01/21 20:03)TOTAL PROTEIN 8.1ALBUMIN 4 .2GLOBULIN 3.9 HBILIRUBIN TOTAL 1.1BILIRUBIN DIRECT 0.2BILI [place] INDIRECT 0.9 HSGOT/AST 51 HSGPT/ALT 29ALKALINE PHOSPHATASE 83 MAG (10/01/21 20:03)MAGNESIUM 1.9 LIP ( 20:03)LIPASE 86 BASIC METABOLIC PANEL (10/01/21 20:03)SODIUM 129L LPOTASSIUM 5.5H HCHLORIDE 96L LCARBON DIOXIDE 13L LANION GAP 25.5 HGLUCOSE 510*H *HBLO OD UREA NITROGEN 31H HGLOMERULAR FILTRATION RATE 36 LCRE ATININE 1.8D H D HBUN/CREATININE RATIO 17.2CALCIUM 9.1 BNP (10/01/21 20:03)B-TYPE NATRIURETIC PEPTIDE 68 HG BA1C - GLYCOSYLATED HGB (10/01/21 20:03)GLYCOSYLATED HE MOGLOBIN (HA1C) > 14.0 H -- ASSESSMENT AND PLAN -- PROBLE MS: 1: Type 1 diabetes mellitus with ketoacidosis, uncontrol Austen/P: admitted to ICUcont dka protocolcritical care rosa grimm consultedgap closedtransition to PO intakestart basal/bolus insulinrestart home meds 2: Diabetic visual loss : better eye: profound vision impairment; lesser eye:near -total vision impairment, with macular edema, with reti nopathy, associatedwith type 1 diabetes mellitus 3: CAD ( coronary artery disease)A/P: cont home meds 4: Hypertensi Samy/P: cont home meds 5: Urinary tract infectionA/P: suspect edf/u cultures - not obtained in ED 6: Chronic kidney disease, stage 3aA/P: cont ivfdose for gfr Signed in Kayla entKeeper by BRITNEY WINCHESTER DO on 10/02/21 at 17:06 Elect ronically Signed by Britney Winchester DO on 10/02/21 at 1706ATTENTION EDITS and/or ADDENDA must be ma de in Patient Keeper for this note. Edits and ammen dments created in [employer] are not visible in Patie nt Keeper or the legal medical record ([facility]). RPT #: [id number] OF REPORT HPHistory and physical [id number] lable for patient [id number] 7:07:01 2021-10-02 [id number] [facility], [place] 09:46:00 CENTER ([facility])Endocrinology Consultation REPORT #: [id number] REPORT STATUS: Signed DATE: 10/02/21 T EDUARDO: 0946 PATIENT: DANIELE HINKLE UNIT #: [id number] ROOM #: NC.IC04 BED: A : 3 AGE: 71 SEX: F ATTEND: Erasmo Fay MD ADM DT: AUTHOR: Nini Doan MD ATTENTION EDITS and/or ADDENDA must be made i n Patient Keeper for this note. Edits and ammendments c reated in [employer] are not visible in Patient Keeper or the legal medical record ([facility]). -- ASSESSMENT AND PLAN -- PROBLEMS : 1: Type 1 diabetes mellitus with ketoacidosis, uncontrolle dA/P: UNCONTROLLED (HGBA1C=>14%,HYPERGLYCEMIA) TYPE I DM IN DKA. DKA RESOLVED:MMB=073 AG=13.0. TRANSITION OFF ICU INSULIN DRIP TO SQ BASAL/BOLUS INSULIN.DISCUSSED WITH IC U NURSE. MUST HAVE A BEDTIME SNACK. THANK YOU. WILL VALENTINE LAVON YOU. -- HISTORY -- CONSULT REQUESTED BY:ADIS FAY REASON FOR CONSULT:HYPERGLYCEMIA,DKA CHIEF COMPLAINT:HYPERGLYCEMICIA HPI:PATIENT ADMITTED T O ICU IN DKA. ICU DKA, INSULIN DRIP PROTOCOL INITIATED. A TPRESENT PATIENT DENIES NAUSEA, VOMITING OR ABDOMINAL TONIA N. SHE IS TOLERATINGLIQUIDS. PAST MEDICAL HISTORY:DM type 1, HTN, CAD, myocardial infarction , neuropathy, retinopathy,hyperlipidemia, PAST SURGICAL HISTORY:hysterectomy, retinal surgery bilaterall y, -SOCIAL HISTORY- -TOBACCO USE- DETAILS/COMMENTS:former -VAPING/INHALED SOLVENTS- DETAILS/COMMENTS: none -ALCOHOL USE- DETAILS/COMMENTS:none -DRUG USE- DETAILS/CO MMENTS:none -- ALLERGIES/HOME MEDS -- ALLERGIES:codeine (Int ermediate - Allergy)lisinopril (Intermediate - Allergy) URBANO RGIES COMMENTS:LANTUS HUMALOG -- SUBJECTIVE -- -REVIEW OF SYSTEMS- GENERAL: Negative for feverRESPIRATORY: Negative for dyspneaCARDIOVASCULAR: Negative for chest painGASTROINTESTINAL: Negative for abdominal tonia n or nausea. No emesis.ENDOCRINE: Negative for polyph agia, polydipsia, polyuria -- OBJECTIVE -- VITALS ( 09:46 - 10/02 09:46):Temperature F: 97.7 (97.7 - 98.3)T emperature source: OralPulse Rate 85 (85 - 111)Respiratory rate: 15 (14 - 20)BP: 117/66 (107/63 - 147/71)Blood press ure source: Monitor I/Os (10/01 07:00 - 10/02 07:00):Net 587 .00Intake 1,287.00Output 700 -EXAM- GENERAL: Well develope d, well nourished, in no apparent distress.HEAD: Normoc ephalic, atraumatic.NECK: trachea midline.CHEST: Grossly normal appearance.LUNGS: NORMAL CHEST WALL MOVEMENTHEAR T: NO TACHYCARDIAABDOMEN: NON-DISTENDEDNEUROLOGICAL: N ORMAL SPEECHPSYCHIATRIC: Alert and oriented to time, p erson, place -- DATA -- MEDICATIONS GLUCAGON 1 MG IM DIRINSULIN REGULAR, HUMAN with/in SODIUM CHLORIDE 100 mL BA G 100 UNIT IV ASDIRPOTASSIUM BICARBONATE/CIT AC 20 MEQ PO A SDIRSODIUM CHLORIDE 0.9% 1000 ML IV ASDIRINSULIN GLARGINE 2 0 UNITS SUBQ QAMDEXTROSE 5%-0.45% SALINE 1000 ML IV ASDI RSODIUM CHLORIDE 0.45% 1000 ML IV ASDIRSODIUM BICARBONAT E 8.4% with/in WATER FOR INJECTION,STERILE 100 MEQ IV ASDIRONDANSETRON HCL/PF 4 MG IV Q6H PRNSODIUM BI CARBONATE 8.4% with/in WATER FOR INJECTION,STERILE 50 MEQ IV ASDIRMUPIROCIN 1 APPLIC NASAL BIDDEXTROSE 50%-WA TER 50 ML IV ASDIRPOTASSIUM CHLORIDE 20 MEQ IV ASDIRINSULI N LISPRO 0 UNITS SUBQ AC HS LABS GLU BED (10/02/21 09:05)GL UBED 190 H MAG (10/02/21 08:09)MAGNESIUM 1.7 L PHOS ( 08:09)PHOSPHOROUS 2.5 BASIC METABOLIC PANEL ( 08:09)SODIUM 138POTASSIUM 4.0CHLORIDE 105CARBON DIOXIDE 24ANION GAP 13.0 DGLUCOSE 232H HBLOOD UREA NITR OGEN 26H HGLOMERULAR FILTRATION RATE 44 LCREATININE 1.5BUN/CREATININE RATIO 17.3CALCIUM 8.1 L GLU B ED (10/02/21 08:06)GLUBED 227 H GLU BED (10/02/21 0 7:18)GLUBED 226 H GLU BED (10/02/21 06:13)GLUBED 188 H GLU B ED (10/02/21 05:14)GLUBED 257 H VENOUS BLOOD GAS (0 10/02/21 04:48)VENOUS BLOOD GAS PH 7.25 LVENOUS BLOOD GAS PCO2 40 LVENOUS BLOOD GAS PO2 36VBG HCO3 17 LVBG BASE EX CESS -10 L VENOUS BLOOD GAS O2 SAT 70VENOUS BLOOD GAS TYPE VenousVENOUS BLOOD GAS FIO2 21.0VBG VENT MODE Ro om Air LACTIC ACID (10/02/21 04:39)LACTIC ACID 2.2 H PH OS (10/02/21 04:10)PHOSPHOROUS 4.1 BASIC METABOLIC PANEL (10/02/21 04:10)SODIUM 138POTASSIUM 3.8CHLORIDE 104CARBON DIOXIDE 18L LANION GAP 19.8 D HGLUCOSE 309H HBL OOD UREA NITROGEN 29H HGLOMERULAR FILTRATION RATE 41 LCRE ATININE 1.6H HBUN/CREATININE RATIO 18.1CALCIUM 8.0 L GLU BED (10/02/21 03:59)GLUBED 286 H GLU BED (10/02/21 0 3:03)GLUBED 323 H GLU BED (10/02/21 02:07)GLUBED 351 H UA RF LX MICR amp;CULT IF INDICATED (10/02/21 01:10)UA COLOR Y ELLOWUA APPEARANCE CLEARUA GLUCOSE DIPSTICK 3+ NATHALIE BILIR UBIN DIPSTICK NEGATIVEUA KETONE DIPSTICK 2+ NATHALIE SPECI FIC GRAVITY 1.016UA BLOOD DIPSTICK 1+ NATHALIE PH DIPSTICK 5.0UA PROTEIN DIPSTICK NEGATIVEUA UROBILINOGEN DIPSTICK NEGATI VEUA NITRITE DIPSTICK NEGATIVEUA LEUKOCYTE ESTERASE D IPSTICK NEGATIVEUA MICROSCOPIC NEEDED? YES NATHALIE WBC 0-2U A RBC 0-2UA BACTERIA NONE SEENUA SQUAMOUS CELLS None seen GL U BED (10/02/21 00:57)GLUBED 438 *H GLU BED (10/02/21 00:13)GLUBED 459 *H GLU BED (10/02/21 00:06)GLUB ED 271 H VENOUS BLOOD GAS (10/01/21 23:39)VENOUS BLOOD GA S PH 7.02 *LVENOUS BLOOD GAS PCO2 41VENOUS BLOOD GAS PO2 4 4 HVBG HCO3 10 LVBG BASE EXCESS -20 LVENOUS BLOOD GAS O2 SAT 67 LVENOUS BLOOD GAS TYPE VenousVENOUS BLOOD GAS FIO2 21.0V BG VENT MODE Room Air CBC W/AUTO DIFF (10/01/21 22:54)WH ITE BLOOD CELL 7.7RED BLOOD CELL 3.63HEMOGLOBIN 11.1L LHEM ATOCRIT 34.7L LMEAN CELL VOLUME 96MEAN CELL HGB 30.6MEAN CELL HGB CONCENTRATION 32.0RED CELL DISTRIBUTION WIDTH 12 .7PLATELET COUNT 193MEAN PLATELET VOLUME 11.5NEUTROPHIL % 8 4.9 HIMMATURE GRANULOCYTE % 1.2 HLYMPHOCYTE % 9.9 LM ONOCYTE % 3.4EOSINOPHIL % 0.1BASOPHIL % 0.5NUCLEATED RBC % 0.0NEUTROPHIL # 6.50IMMATURE GRANULOCYTE # 0.090 LYMPHOCYTE # 0.76 LMONOCYTE # 0.26EOSINOPHIL # 0.01BASOPHIL # 0.04NUCLEATED RBC # 0.000 ACETNQL (10/01/21 22:5 4)ACETONE QUAL MODERATE H OSMO (10/01/21 22:54)OSMOLALITY SERUM 326 H CK (10/01/21 22:54)CREATINE KINASE (CK) 235 PROT HROMBIN TIME (10/01/21 22:54)PROTHROMBIN TIME PATIENT 10.6INTERNATIONAL NORMAL RATIO 1.0 BASIC METABOL IC PANEL (10/01/21 22:54)SODIUM 133L LPOTASSIUM 4.3CHLOR LAN 97L LCARBON DIOXIDE 13L LANION GAP 27.3 HGLUCOSE 525 *H *HBLOOD UREA NITROGEN 33H HGLOMERULAR FILTRATION RATE 38 L CREATININE 1.7H HBUN/CREATININE RATIO 19.4CALCIU M 8.9 LACTIC ACID (10/01/21 22:54)LACTIC ACID 3.5 H P TT (10/01/21 22:54)THROMBOPLASTIN TIME PARTIAL 31.3 PHOS (10/01/21 22:54)PHOSPHOROUS 5.6 H MINOO (10/01/21 22:54)AMYLASE 54 COVID 19 INH AG (10/01/21 21:07 )COVID 19 INHOUSE AG NEGATIVE GLU BED (10/01/21 21:04)GLUB ED 502 *H LACTIC ACID (10/01/21 20:57)LACTIC ACID 2.3 H CB C W/AUTO DIFF (10/01/21 20:03)WHITE BLOOD CELL 5.2RED BLO OD CELL 3.38 LHEMOGLOBIN 10.3L LHEMATOCRIT 31.9L LMEAN C ELL VOLUME 94MEAN CELL HGB 30.5MEAN CELL HGB CONCENTRATION 32.3RED CELL DISTRIBUTION WIDTH 12.8PLATELET COUNT 180ME AN PLATELET VOLUME 12.0NEUTROPHIL % 69.6IMMATURE GRANULOCYTE % 1.0LYMPHOCYTE % 21.2MONOCYTE % 6.6EOSINOPHIL % 0 .6BASOPHIL % 1.0NUCLEATED RBC % 0.0NEUTROPHIL # 3.59IMMATU RE GRANULOCYTE # 0.050LYMPHOCYTE # 1.09 LMONOCYTE # 0.34EOSINOPHIL # 0.03BASOPHIL # 0.05NUCLEATED RB C # 0.000 TROP-I HIGH SEN (10/01/21 20:03)TROP-I HIGH SENS ITIVITY 7 LIVER FUNCTION PANEL (10/01/21 20:03)TOTAL PROTE IN 8.1ALBUMIN 4.2GLOBULIN 3.9 HBILIRUBIN TOTAL 1.1B ILIRUBIN DIRECT 0.2 BILIRUBIN INDIRECT 0.9 HSGOT/AST 51 H SGPT/ALT 29ALKALINE PHOSPHATASE 83 MAG (10/01/21 20:03)MA GNESIUM 1.9 LIP (10/01/21 20:03)LIPASE 86 BASIC METABOLIC PA NASIMA (10/01/21 20:03)SODIUM 129L LPOTASSIUM 5.5H HCHL ORIDE 96L LCARBON DIOXIDE 13L LANION GAP 25.5 HGLUCOSE 510 *H *HBLOOD UREA NITROGEN 31H HGLOMERULAR FILTRATION RATE 36 LCREATININE 1.8D H D HBUN/CREATININE RATIO 17.2 CALCIUM 9.1 BNP (10/01/21 20:03)B-TYPE NATRIURETIC PEPTIDE 6 8 HGBA1C - GLYCOSYLATED HGB (10/01/21 20:03)GLYCOSYLATED HE MOGLOBIN (HA1C) > 14.0 H -- ATTESTATION -- TIME SPENT ON PATIENT CARE: - Direct 45 minutes CARE ACTIVITIES / CARE COORDINATION: - I have reviewed the history and repeated the ingram elements - I have seen and examined this patient - I have discussed the patient's condition with ot her members of the care team ADDITIONAL DETAIL:I HAVE SPENT >45 MINUTES IN THE EVALUATION AND TREATMENT OF THIS PATIENT. Signed in PatientKeeper by Nini Doan MD on 08/20 at 09:52 at 0952ATTENTION EDITS and/or ADDENDA must be ma de in Patient Keeper for this note. Edits and ammen dments created in [facility] are not visible in Patie nt Keeper or the legal medical record ([facility]). RPT #: [id number] OF [id number] for patient [id number] 2021-10-02 [id number] [facility] [place] 06:52:00 CENTER ([facility])Intensive Care Progress Note REPOR T #: [id number] REPORT STATUS: Signed DATE: 10/02/21 T EDUARDO: 0652 PATIENT: DANIELE HINKLE UNIT #: [id number] ROOM #: NC.IC04 BED: A : 3 AGE: 71 SEX: F ATTEND: Erasmo Fay MD ADM DT: AUTHOR: Roland Reinoso APRN ATTENTION EDITS and/or ADDENDA must be made i n Patient Keeper for this note. Edits and ammendments c reated in [facility] are not visible in Patient Keeper or the legal medical record ([facility]). -- CO-SIGNATURE -- COMMENTS:Author ized and Performed by: Dheeraj Sanders MD I saw and eval uated on thepatient with the nurse practitioner. I person ally reviewed the HPI, PH, FH, SH,ROS and medications . I repeated pertinent portions of the examination a ndreviewed the relevant imaging and laboratory data. Total critical caretime(excluding KNIFEMAN time spent): 35 minutes DK A now resolvedADAT Signed in PatientKeeper by DHEERAJ FOUNTAIN MD on 10/02/21 at 12:04 -- ASSESSMENT AND PLAN -- G ENERAL ASSESSMENT:[facility] AssessmentDKA, without comaAGMAAKIlactic acidosisPseudohyponatremiaNorm ocytic anemiaDMHTN Plan:Neurologic: AAO x3, no acute p rocess Pulmonary: Tolerating RA; supplemental O2 if nee ded to keep SpO2 > 92%CXR reviewed, No acute processCOVID negative in ED Cardiovascular: Monitor HR, BP.Tnl 7 Hemat ologic: Monitor H/H, platelets. Transfuse to keep Hgb > 7. Renal: Monitor UOP, BUN, Cr.Replace electrolytes as nee ded.Avoid nephrotoxins.baseline sCr in March was 0. 9-1.8, on presentation 1.8Likely pre-renal 2/2 dehydration Aggressive fluid resuscitation, IVF per DKA protocolserial q4h chemistries while insulin infusingWill consider nephrology consultation if renal indices do not trend down Gastrointestinal: NPOAntiemetics PRN Infectious disease: Trend WBC, fever curveFollow cultures, UA w/ ref lauri micro pendingTrend lactic, 2.3Received 1L IVF in ED, a dditional 1L ordered upon ICU arrivalRocephin x 1 received in ER. lactic acidosis likely 2/2 dehydration/DKA. Lowt hreshold to continue abx. Will hold further for now pending UA. Endocrine: Monitor blood sugarkeep between 110-1 80On presentation glucose 510, CO2 13, AG 25.5, Moder ate serum ketones, VBG pH 7.0DKA insulin infusion protocol Hgb a1c >14, will need diabetic educationEndocrinology c onsulted Dispo: ICU Code Status: FullVTE ppx; Heparin SQG i ppx: Subjective:Overnigh t events notedTolerating RADKA insulin gtt infusingTmax 9 8.3 HPI: Ms Hinkle is a 71 year old female with past medical history significant asnoted below who presented to ED wi th weakness, fatigue, n/v over last week.Denies fev er, sob, diarrhea. Diagnostics in ED concerning for sodiu m 129, K5.5, glucose 515, CO2 13, AG 25.5, sCr 1.8, Hgb a1c >14, lactic 2.3, sOsmo 326,moderate serum ketones, an d on ICU arrival VBG performed and pH 7.0. [facility]. Thank you for this consultatio n. We will follow with you. Please call for anyconcerns. Angel Luis farley medical history: HTN, DM, CAD, retinopathy, diabetic neuropathyPSurgHx: Retinal surgery, hysterectomy SocHx: Former smoker Review of systems: 14 point review system negative unless listed above Physical ExamGenera l: NAD, awake and alertEyes: Anicteric sclerae.Mouth: MM MNeck: Supple.CV: Regular rate and rhythm. Normal S1 an d S2.Pulm: Good effort, no wheezing or Rales appreciated.Ab domen: Soft, nontender.BS+Extremities: No lower extremi ty edema.Skin: Warm, dry.Neuro: Awake and alert, no focal neurological deficitPsych: normal mood I have pe rsonally provided 35 minutes of critical care time. Time includesreview of laboratory data, radiology res ults, discussion with consultants,family and staff and monitoring for potential decompensation. Interventionswere performed as documented above. This is exclusive of time s pent onseparately billable procedures. -- OBJECTIVE - - VITALS (10/01 06:52 - 10/02 06:52):Temperature F: 97.7 (97.7 - 98.3)Temperature source: OralPulse Rate 85 (85 - 111)Respiratory rate: 15 (14 - 20)BP: 117/66 (10 7/63 - 147/71)Blood pressure source: Monitor -- DATA -- MEDICATIONS ONDANSETRON HCL/PF 4 MG IV Q6H PRNIN SULIN REGULAR, HUMAN with/in SODIUM CHLORIDE 100 mL BA G 100 UNIT IV ASDIRGLUCAGON 1 MG IM ASDIR (PRN)SODIUM BICAR BONATE 8.4% with/in WATER FOR INJECTION,STERILE 50 MEQ IV ASDIRPOTASSIUM BICARBONATE/CIT AC 20 MEQ PO ASDI RMUPIROCIN 1 APPLIC NASAL BIDPOTASSIUM CHLORIDE 20 MEQ IV A SDIRSODIUM CHLORIDE 0.9% 1000 ML IV ASDIRDEXTROSE 5%-0.45% SALINE 1000 ML IV ASDIRDEXTROSE 50%-WATER 50 ML IV ASDIRSODI UM CHLORIDE 0.45% 1000 ML IV ASDIRSODIUM BICARBONATE 8.4% wi th/in WATER FOR INJECTION,STERILE 100 MEQ IV ASDIR LABS GLU BED (10/02/21 06:13)GLUBED 188 H GLU BED (10/02/21 0 5:14)GLUBED 257 H VENOUS BLOOD GAS (10/02/21 04:48)VENOUS BL OOD GAS PH 7.25 LVENOUS BLOOD GAS PCO2 40 LVENOUS BLOOD GAS PO2 36VBG HCO3 17 LVBG BASE EXCESS -10 LVENOUS BLOOD GAS O 2 SAT 70VENOUS BLOOD GAS TYPE VenousVENOUS BLOOD GAS F IO2 21.0VBG VENT MODE Room Air LACTIC ACID (10/02/21 04:39)L ACTIC ACID 2.2 H PHOS (10/02/21 04:10)PHOSPHOROUS 4.1 BASIC METABOLIC PANEL (10/02/21 04:10)SODIUM 138POTASSIUM 3.8CHL ORIDE 104CARBON DIOXIDE 18L LANION GAP 19.8 D HGLUCOS E 309H HBLOOD UREA NITROGEN 29H HGLOMERULAR FILTRATION RATE 41 LCREATININE 1.6H HBUN/CREATININE RATIO 18.1CALCI UM 8.0 L GLU BED (10/02/21 03:59)GLUBED 286 H GLU BED ( 03:03)GLUBED 323 H GLU BED (10/02/21 02:07)GLUBE D 351 H UA RFLX MICR amp;CULT IF INDICATED (10/02/21 01:10) UA COLOR YELLOWUA APPEARANCE CLEARUA GLUCOSE DIPSTICK 3+ NATHALIE BILIRUBIN DIPSTICK NEGATIVEUA KETONE DIPSTICK 2+ NATHALIE SPECIFIC GRAVITY 1.016UA BLOOD DIPSTICK 1+ NATHALIE P H DIPSTICK 5.0UA PROTEIN DIPSTICK NEGATIVEUA UROBILINOGEN D IPSTICK NEGATIVEUA NITRITE DIPSTICK NEGATIVEUA LEUKOCYTE ESTERASE DIPSTICK NEGATIVEUA MICROSCOPIC NEEDED? YES NATHALIE WBC 0-2UA RBC 0-2UA BACTERIA NONE SEENUA SQUAMOUS CELLS No ne seen GLU BED (10/02/21 00:57)GLUBED 438 *H GLU BED (10/02 00:13)GLUBED 459 *H GLU BED (10/02/21 00:06)GLUB ED 271 H VENOUS BLOOD GAS (10/01/21 23:39)VENOUS BLOOD GA S PH 7.02 *LVENOUS BLOOD GAS PCO2 41VENOUS BLOOD GAS PO2 4 4 HVBG HCO3 10 LVBG BASE EXCESS -20 LVENOUS BLOOD GAS O2 SAT 67 LVENOUS BLOOD GAS TYPE VenousVENOUS BLOOD GAS FIO2 21.0V BG VENT MODE Room Air CBC W/AUTO DIFF (10/01/21 22:54)WH ITE BLOOD CELL 7.7RED BLOOD CELL 3.63HEMOGLOBIN 11.1L LHEM ATOCRIT 34.7L LMEAN CELL VOLUME 96MEAN CELL HGB 30.6MEAN CELL HGB CONCENTRATION 32.0RED CELL DISTRIBUTION WIDTH 12 .7PLATELET COUNT 193MEAN PLATELET VOLUME 11.5NEUTROPHIL % 8 4.9 HIMMATURE GRANULOCYTE % 1.2 HLYMPHOCYTE % 9.9 LM ONOCYTE % 3.4EOSINOPHIL % 0.1BASOPHIL % 0.5NUCLEATED RBC % 0.0 NEUTROPHIL # 6.50IMMATURE GRANULOCYTE # 0.090LY MPHOCYTE # 0.76 LMONOCYTE # 0.26EOSINOPHIL # 0.01BASOPHIL # 0.04NUCLEATED RBC # 0.000 ACETNQL (10/01/21 22:5 4)ACETONE QUAL MODERATE H OSMO (10/01/21 22:54)OSMOLALITY SERUM 326 H CK (10/01/21 22:54)CREATINE KINASE (CK) 235 PROT HROMBIN TIME (10/01/21 22:54)PROTHROMBIN TIME PATIENT 10.6INTERNATIONAL NORMAL RATIO 1.0 BASIC METABOL IC PANEL (10/01/21 22:54)SODIUM 133L LPOTASSIUM 4.3CHLOR LAN 97L LCARBON DIOXIDE 13L LANION GAP 27.3 HGLUCOSE 525 *H *HBLOOD UREA NITROGEN 33H HGLOMERULAR FILTRATION RATE 38 LCREATININE 1.7H HBUN/CREATININE RATIO 19.4CALCI UM 8.9 LACTIC ACID (10/01/21 22:54)LACTIC ACID 3.5 H PT T (10/01/21 22:54)THROMBOPLASTIN TIME PARTIAL 31.3 PHOS (07/20 22:54)PHOSPHOROUS 5.6 H MINOO (10/01/21 22:54)AMYL ASE 54 COVID 19 INH AG (10/01/21 21:07)COVID 19 INHOUSE AG NEGATIVE GLU BED (10/01/21 21:04)GLUBED 502 *H L ACTIC ACID (10/01/21 20:57)LACTIC ACID 2.3 H CBC W/AUTO DIF F (10/01/21 20:03)WHITE BLOOD CELL 5.2RED BLOOD CELL 3.38 LH EMOGLOBIN 10.3L LHEMATOCRIT 31.9L L MEAN CELL VOLUME 94ME AN CELL HGB 30.5MEAN CELL HGB CONCENTRATION 32.3RED CELL DIS TRIBUTION WIDTH 12.8PLATELET COUNT 180MEAN PLATELET VOLUME 12.0NEUTROPHIL % 69.6IMMATURE GRANULOCYTE % 1.0L YMPHOCYTE % 21.2MONOCYTE % 6.6EOSINOPHIL % 0.6BASOPHIL % 1. 0NUCLEATED RBC % 0.0NEUTROPHIL # 3.59IMMATURE GRANULOCYTE # 0.050LYMPHOCYTE # 1.09 LMONOCYTE # 0.34EOSINOPHI L # 0.03BASOPHIL # 0.05NUCLEATED RBC # 0.000 TROP-I HIGH SEN (10/01/21 20:03)TROP-I HIGH SENSITIVITY 7 LIVER FUNCTION PANEL (10/01/21 20:03)TOTAL PROTEIN 8.1ALBUMIN 4 .2GLOBULIN 3.9 HBILIRUBIN TOTAL 1.1BILIRUBIN DIRECT 0.2BILI PITTMAN INDIRECT 0.9 HSGOT/AST 51 HSGPT/ALT 29ALKALINE P HOSPHATASE 83 MAG (10/01/21 20:03)MAGNESIUM 1.9 LIP (10/01 20:03)LIPASE 86 BASIC METABOLIC PANEL (10/01/21 20:03)SODIUM 129L LPOTASSIUM 5.5H HCHLORIDE 96L LCARBON DIOXIDE 13L LANION GAP 25.5 HGLUCOSE 510*H *HBLO OD UREA NITROGEN 31H HGLOMERULAR FILTRATION RATE 36 LCRE ATININE 1.8D H D HBUN/CREATININE RATIO 17.2CALCIUM 9.1 B KNIFEMAN (10/01/21 20:03)B-TYPE NATRIURETIC PEPTIDE 68 HG BA1C - GLYCOSYLATED HGB (10/01/21 20:03)GLYCOSYLATED HE MOGLOBIN (HA1C) > 14.0 H Signed in PatientKeeper by Roland Reinoso APRN on 10/02/21 at 06:54 Cosigned by DHEERAJ SANDERS MD on 10/02/21 at 12:04 at 1204Electronically Sign ed by Dheeraj Sanders MD on 10/02/21 at 1204ATTENTION EDITS and/or ADDENDA must be ma de in Patient Keeper for this note. Edits and ammen dments created in [employer] are not visible in Patien t Keeper or the legal medical record ([facility]). RPT #: [id number] OF REPORT PRProgress [id number] Available for patient [id number] [id number] 2021-10-01 [id number]:[id number] [facility]Intensive Care Consultation REPORT #: [id number] REPORT STATUS: Signed DATE: 10/01/21 T EDUARDO: [id number] PATIENT: DANIELE HINKLE UNIT #: [id number] ROOM #: NC.2302 BED: 1 : 3 AGE: 71 SEX: F ATTEND: Erasmo Fay MD ADM DT: AUTHOR: Roland Reinoso APRN ATTENTION EDITS and/or ADDENDA must be made i n Patient Keeper for this note. Edits and ammendments c reated in [employer] are not visible in Patient Keeper or the legal medical record ([facility]). -- CO-SIGNATURE -- COMMENTS:Agree with assessment and plan. Signed in PatientKeeper by LANDRY MARQUES MD on 10/07/21 at 22:09 -- ASSESSMENT AND PLAN -- GENERAL ASSESSMENT:[facility] AssessmentDKA, without comaAGMAAKIlactic acidosisPseudohyponatremiaNorm ocytic anemiaDMHTN Plan:Neurologic: AAO x3, no acute pr ocess Pulmonary: Tolerating RA; supplemental O2 if nee ded to keep SpO2 > 92%CXR reviewed, No acute processCOVID ne gative in ED Cardiovascular: Monitor HR, BP.Tnl 7 Hematolo gic: Monitor H/H, platelets. Transfuse to keep Hgb > 7. Renal: Monitor UOP, BUN, Cr.Replace electrolytes as nee ded.Avoid nephrotoxins.baseline sCr in March was 0. 9-1.8, now on presentation 1.8Likely pre-renal 2/2 dehydrationAggressive fluid resuscitation, IVF p er DKA protocolserial q4h chemistries while insulin inf usingWill consider nephrology consultation if renal indice s do not trend down Gastrointestinal: NPOAntiemetics PRN Infectious disease: Trend WBC, fever curveFollow cultures, UA w/ reflex micro pendingTrend lactic, 2.3Received 1L IVF in ED, additional 1L ordered upon ICU arrivalRocephin x 1 received in ER. lactic acidosis likely 2/2 dehydration/DK A. Lowthreshold to continue abx. Will hold further for now pending UA. Endocrine: Monitor blood sugarkeep b etween 110-180On presentation glucose 510, CO2 13, AG 2 5.5, Moderate serum ketones, VBG pH 7.0DKA insulin in fusion protocolHgb a1c >14, will need diabetic educationEndocrinology consulted Dispo: ICUCode Status: FullVTE ppx; Heparin SQGi ppx: HPI: Ms Hinkle is a 71 year old female with past medical history significant asnoted below who presented to ED with weakness, fatigue , n/v over last week.Denies fever, sob, diarrhea. Diagnosti cs in ED concerning for sodium 129, K5.5, glucose 515, CO 2 13, AG 25.5, sCr 1.8, Hgb a1c >14, lactic 2.3, sOsmo 32 6, moderate serum ketones, and on ICU arrival VBG performed and pH 7.0. Acceptedto critical care services for HLOC and c lose monitoring on DKA insulin infusionprotocol. Than k you for this consultation. We will follow with you. Plea se call for anyconcerns. Past medical history: HTN, DM, CAD, retinopathy, diabetic neuropathyPSurgHx: Retinal surgery, hysterectomySocHx: Former smoker Review of syste ms: 14 point review system negative unless listed above Physical ExamGeneral: NAD, awake and alertEyes: Anicteric sclerae.Mouth: MMMNeck: Supple.CV: Regular rate and rhythm. Normal S1 and S2.Pulm: Good effort, no wheezing or Rales appreciated.Abdomen: Soft, nontender.BS+Extremit ies: No lower extremity edema.Skin: Warm, dry.Neuro: Camilla ke and alert, no focal neurological deficitPsych: shannan petra mood I have personally provided 35 minutes of critical care time. Time includesreview of laboratory data, radiolog y results, discussion with consultants,family and staff and monitoring for potential decompensation. Interventionswere performed as documented above. This is exclusive of time s pent onseparately billable procedures. -- HISTORY -- PAST MEDICAL HISTORY:As per note. PAST SURGICAL HISTO RY:As per note -- OBJECTIVE -- VITALS (09/30 23:52 - 10/01 23:52):Temperature F: 98.3Temperature source: Or alPulse Rate 99 (99 - 111)Respiratory rate: 17 (17 - 20) BP: 107/69 (107/69 - 129/71)Blood pressure source: Non-inva sive monitor -- DATA -- MEDICATIONS INSULIN REGULAR, HUMAN with/in SODIUM CHLORIDE 100 mL BAG 100 UNIT IV ASDIRGLUCAGON 1 MG IM ASDIR (PRN)SODIUM BICARBON ATE 8.4% with/in WATER FOR INJECTION,STERILE 50 MEQ IV DIRINSULIN REGULAR, HUMAN 5.4545 UNIT IV ONCEPOTASSIUM BICA RBONATE/CIT AC 20 MEQ PO ASDIRMUPIROCIN 1 APPLIC NASAL BID P OTASSIUM CHLORIDE 20 MEQ IV ASDIRSODIUM CHLORIDE 0.9% 100 0 ML IV ASDIRDEXTROSE 5%-0.45% SALINE 1000 ML IV ASDIRDE XTROSE 50%-WATER 50 ML IV ASDIRSODIUM CHLORIDE 0.45% 10 00 ML IV ASDIRSODIUM BICARBONATE 8.4% with/in WATER FOR INJECTION,STERILE 100 MEQ IV ASDIR LABS VENOUS B LOOD GAS (10/01/21 23:39)VENOUS BLOOD GAS PH 7.02 *LVENOU S BLOOD GAS PCO2 41VENOUS BLOOD GAS PO2 44 HVBG HCO3 10 LVB G BASE EXCESS -20 LVENOUS BLOOD GAS O2 SAT 67 LVENOUS B LOOD GAS TYPE VenousVENOUS BLOOD GAS FIO2 21.0VBG VENT MO DE Room Air CK (10/01/21 22:54)CREATINE KINASE (CK) 235 PROT HROMBIN TIME (10/01/21 22:54)PROTHROMBIN TIME PATIENT 10.6INTERNATIONAL NORMAL RATIO 1.0 CBC W/AUTO DI FF (10/01/21 22:54)WHITE BLOOD CELL 7.7RED BLOOD CE LL 3.63HEMOGLOBIN 11.1L LHEMATOCRIT 34.7L LMEAN DILIA L VOLUME 96MEAN CELL HGB 30.6MEAN CELL HGB CONCENTRATION 32.0RED CELL DISTRIBUTION WIDTH 12.7PLATELET COUNT 193ME AN PLATELET VOLUME 11.5NEUTROPHIL % 84.9 HIMMATURE GRANULOCY TE % 1.2 HLYMPHOCYTE % 9.9 LMONOCYTE % 3.4EOSINOPHIL % 0. 1BASOPHIL % 0.5NUCLEATED RBC % 0.0NEUTROPHIL # 6.50IMMATURE GRANULOCYTE # 0.090LYMPHOCYTE # 0.76 LMONOCYTE # 0.26EOSINOPHIL # 0.01BASOPHIL # 0.04NUCLEATED RB C # 0.000 ACETNQL (10/01/21 22:54)ACETONE QUAL MODERATE H OSMO (10/01/21 22:54)OSMOLALITY SERUM 326 H BASIC MET ABOLIC PANEL (10/01/21 22:54) SODIUM 133L LPOTASSIUM 4. 3CHLORIDE 97L LCARBON DIOXIDE 13L LANION GAP 27.3 HGLUCOSE 525*H *HBLOOD UREA NITROGEN 33H HGLOMERULAR FILTRATION RATE 38 LCREATININE 1.7H HBUN/CREATININE RATIO 19.4CALCI UM 8.9 LACTIC ACID (10/01/21 22:54)LACTIC ACID 3.5 H PT T (10/01/21 22:54)THROMBOPLASTIN TIME PARTIAL 31.3 PHOS (07/20 22:54)PHOSPHOROUS 5.6 H MINOO (10/01/21 22:54)AMYL ASE 54 COVID 19 INH AG (10/01/21 21:07)COVID 19 INHOUSE AG NEGATIVE GLU BED (10/01/21 21:04)GLUBED 502 *H L ACTIC ACID (10/01/21 20:57)LACTIC ACID 2.3 H CBC W/AUTO DIF F (10/01/21 20:03)WHITE BLOOD CELL 5.2RED BLOOD CELL 3.38 L HEMOGLOBIN 10.3L LHEMATOCRIT 31.9L LMEAN CELL VOLUME 94MEAN CELL HGB 30.5MEAN CELL HGB CONCENTRATION 32.3RED CELL DIS TRIBUTION WIDTH 12.8PLATELET COUNT 180MEAN PLATELET VOLUME 12.0NEUTROPHIL % 69.6IMMATURE GRANULOCYTE % 1.0L YMPHOCYTE % 21.2MONOCYTE % 6.6EOSINOPHIL % 0.6BASOPHIL % 1. 0NUCLEATED RBC % 0.0NEUTROPHIL # 3.59IMMATURE GRANULOCYTE # 0.050LYMPHOCYTE # 1.09 LMONOCYTE # 0.34EOSINOPHI L # 0.03BASOPHIL # 0.05NUCLEATED RBC # 0.000 BASIC METABOLIC PANEL (10/01/21 20:03) SODIUM 129L LPOTASSIUM 5. 5H HCHLORIDE 96L LCARBON DIOXIDE 13L LANION GAP 25. 5 HGLUCOSE 510*H *HBLOOD UREA NITROGEN 31H HGLOMERULAR FILT RATION RATE 36 LCREATININE 1.8D H D HBUN/CREATININE RATIO 17 .2CALCIUM 9.1 TROP-I HIGH SEN (10/01/21 20:03)TROP-I HIGH SENSITIVITY 7 LIVER FUNCTION PANEL (10/01/21 20:03)TOTAL PRO TEIN 8.1ALBUMIN 4.2GLOBULIN 3.9 HBILIRUBIN TOTAL 1.1B ILIRUBIN DIRECT 0.2BILIRUBIN INDIRECT 0.9 HSGOT/AST 51 H SGPT/ALT 29ALKALINE PHOSPHATASE 83 MAG (10/01/21 20:03)MA GNESIUM 1.9 HGBA1C - GLYCOSYLATED HGB (10/01/21 20:03)GLYCOS YLATED HEMOGLOBIN (HA1C) > 14.0 H LIP (10/01/21 20:03)L IPASE 86 Signed in PatientKeeper by Roland Reinoso APRN on 10/02/21 at 06:52 Cosigned by LANDRY MARQUES MD on 01/20 at 22:09 at 2209 at 2209ATTENTION EDITS and/or ADDENDA must be ma de in Patient Keeper for this note. Edits and ammen dments created in [facility] are not visible in Patien t Keeper or the legal medical record (HPF). RPT #: [id number] OF [id number]:52:[id number] for patient [id number]-21S93:09:40 2021-10-01 [id number]:11:00 [facility] 21:11:00 [facility])EMERGENCY PROVIDER REPORTREPORT#:[id number] REPORT STATUS: SignedDAT E:10/01/21 TIME: 2110 PATIENT: DANIELE HINKLE UNIT #: [id number]#: [id number] ROOM: [address] D: 1AGE: 71 SEX: F PCP PHYS: Erasmo Fay AUTHOR: Amauri Hess MD * ALL edits or amen dments must be made on the electronic/computer document * HP I-Abd Pain F 40 and Over GeneralInitial Greet Date/Time 07/20 PresentationChief Complaint Abdominal pain, Naus ea, Vomiting moderateHx Obtained From PatientSudden in Onset? YesOnset Occurred TodaySymptom Duration Since onsetProgression since Onset Gradually worsening Context of Onset POORLY CONTROLLED DMCaused by No trauma by historyLocation DiffuseQuality CrampingRadiation Does not radiate. Migration/Movement Chest to abdomenSeve rity: Onset MildSeverity: Current ModerateAssociated withRep orts: Nausea, Shortness of breath, Vomiting. Exacerbat ed by NothingRelieved by Nothing Risk-Abd Pain F 40 an d Over)( Abdominal Aortic Aneurysm Risk factors reviewed Review of Systems ROS StatementsAll systems rev neg except as marked. (as per hpi) Past Medical History - AdultStated Complaint CHEST AND ABD PAINAllergiesCoded Allergies:codei ne (Intermediate, RASH-HIVES 08/10/20)lisinopril (Intermediate, RASH-RAISED 08/10/20) Home Medica tionsActive ScriptsIsosorbide Mononitrate Sr (Imdur) 90 MG P O DAILY Isosorbide Mononitrate Sr (Imdur) 90 MG PO DAILY #90 TAB Ref 3 Prov: 08/12/20Ranolazine Er (Ranexa) 1,000 MG PO Q12HR Ranolazine Er (Ranexa) 1,000 MG PO Q12HR # 180 TAB Prov: 08/12/20Gabapentin (Neurontin) 300 MG PO B EDTIME Gabapentin (Neurontin) 300 MG PO BEDTIME #90 CAP Prov: 08/12/20Losartan (Cozaar) 25 MG PO DAILY Losarta n (Cozaar) 25 MG PO DAILY #90 TAB Prov: 08/12/20Cholecalcif shelby (Vitamin D3) (Vitamin D3) 4,000 UNIT PO QPM Chol ecalciferol (Vitamin D3) (Vitamin D3) 4,000 UNIT PO QPM #90 TAB Prov: 04/09/21Ezetimibe (Zetia) 10 MG PO DAILY Ezetim dave (Zetia) 10 MG PO DAILY #30 TAB Ref 3 Prov: 04/09/21Clopi dogrel Bisulfate (Plavix) 75 MG PO DAILY Clopidogrel Bi sulfate (Plavix) 75 MG PO DAILY #30 TAB Ref 3 Prov: 04/09/21Isosorbide Mononitrate Sr (Imdur) 30 MG PO SPECIAL INST Isosorbide Mononitrate Sr (Imdur) 30 MG PO SPECIAL INST #30 TAB Ref 3 Prov: 04/09/21Nitroglycerin ( Nitrostat) 0.4 MG SL Q5M PRN CHEST PAIN Nitroglycerin (Nitr ostat) 0.4 MG SL Q5M PRN CHEST PAIN #25 TAB Ref 1 Prov: 02/18 Discontinued ScriptsCefdinir (Omnicef) 300 MG PO Q12H Cefdinir (Omnicef) 300 MG PO Q12H #14 CAP Prov: 04/09/21 DC: 10/03/21 1355 DC prior to admitRanolazine Er (Ranexa) 1,000 MG PO Q12HR Ranolazine Er (Ranexa) 1,000 M G PO Q12HR #120 TAB Ref 3 Prov: 04/09/21 DC: 10/03/21 1355 Duplicate therapyAspirin Ec 81 MG PO DAILY Aspirin Ec 81 M G PO DAILY #30 TAB Ref 3 Prov: 04/09/21 DC: 10/03/21 1355 D uplicate therapyMetoprolol Succ Xl (Toprol Xl) 25 MG PO D AILY Metoprolol Succ Xl (Toprol Xl) 25 MG PO DAILY #3 0 TAB Ref 3 Prov: 04/09/21 DC: 10/03/21 1355 Duplicate thera py Reported MedicationsMetoprolol Succ Xl (Toprol Xl) 25 MG PO DAILY Insulin Lispro (Humalog) Insulin Glargine (Lantu s) 20 UNITS SUBQ QAM Aspirin 81 MG PO BEDTIME polyethylene g lycoL 3350 (Miralax) 1 PKT PO DAILY Insulin Lispro (Humalog ) Discontinued Reported MedicationsNitroglycerin ( Nitrostat) 0.4 MG SL Q5M PRN CHEST PAIN Ezetimibe (Zetia) 1 0 MG PO DAILY Clopidogrel Bisulfate (Plavix) 75 MG PO DA JEROME Calculated Suicide Risk (nurs) No riskPast Medic al History:Reports: Coronary artery disease, Diabet es mellitus, Hypertension. Additional Medical Histo ryMI Neuropathy Visual ImpairmentAlcohol Use Alcohol use (former)Drug Use Denies recreational drugsSmokin g status for patients 13 years old or older: Never Smoker Physical Exam Vital SignsVital SignsFirst Documented: Res ult Date Time Pulse Ox 100 10/02 2007 B/P 129/71 10/01 B/P Mean 90 10/02 2007 O2 Delivery Room air 10/02 19 08 Temp 36.8 10/02 2007 Pulse 111 10/02 2007 Resp 20 2007 Last Documented: Result Date Time Pulse Ox 100 0 10/02 2007 B/P 129/71 10/02 2007 B/P Mean 90 10/02 2007 O2 Delivery Room air 10/02 2007 Temp 36.8 10/02 2007 Pulse 111 10/02 2007 Resp 20 10/02 2007 Review of Vital Signs Re viewed Free Text PE NotesFree Text PE NotesBasic Physical Ex amBasic PE HEAD: Atraumatic/NC, EYES: PERRL, conj clear, EN T: Membranes moist, NECK: Supple, EXT: No gross abn ormality, SKIN: No rashes, warm/dry, NEURO: alert oriented , NEURO: gross movement NL, PSYCH: NL thought content Foc used PEGeneral/Const General/Const Awake, Well hyd rated Resp/Chest Respiratory/Chest Atraumatic, No r espiratory distress, No rales, No wheezingCardiovascular Cardiovascular Heart rate NL, Regular rhythm, Ca p refill not delayed, Peripheral circulation NLAbdomen/GI Abdomen/GI Atraumatic, abd nontender to palaptio nMS Back Back Atraumatic, Full range of motion, No midlin e vertebral tend, No paraspinal tenderness Interpretation Di agnostics Lab Results InterpretationConsiderations Indepen d review imaging, Reviewed prior recordsResultsLaboratory Tests 10/01/212002:[Embedded Image Not Available]Labo ratory Tests: 10/01 2003 Surve[employer] ry Sodium (135 - 145 mmol/L) 129 L Potassium (3.5 - 5.1 mm ol/L) 5.5 H Chloride (98 - 107 mmol/L) 96 L Carbon Dioxide ( 21 - 32 mmol/L) 13 L Anion Gap (2.0 - 16.0) 25.5 H BUN (4 - 23 mg/dL) 31 H Creatinine (0.6 - 1.5 mg/dL) 1.8 H G lomerular Filtr Rate (>60 ml/min) 36 L BUN/Creatinine Rati o (12.0 - 20.0) 17.2 Glucose (65 - 99 mg/dL) 510 *H Hemogl obin A1c (4.5 - 5.9 %) > 14.0 H Calcium (8.5 - 10.1 mg/dL ) 9.1 Magnesium (1.8 - 2.4 mg/dL) 1.9 Total Bilirubin (0.2 - 1.2 mg/dL) 1.1 Direct Bilirubin (0.0 - 0.3 mg/dL) 0. 2 Indirect Bilirubin (0.0 - 0.8 mg/dL) 0.9 H AST (15 - 37 U /L) 51 H ALT (6 - 50 U/L) 29 Total Alk Phosphatase (45 - 117 U/L) 83 Troponin I High Sens (0 - 53 pg/mL) 7 B-Natri uretic Peptide (0 - 100 pg/mL) 68 Total Protein (6.4 - 8.2 g/dL) 8.1 Albumin (3.4 - 5.0 g/dL) 4.2 Globulin (2.3 - 3.5 g/dL) 3.9 H Lipase (73 - 393 U/L) 86 Hematology WBC (4 .5 - 11.0 10 3/uL) 5.2 RBC (3.50 - 5.50 10 6/uL) 3.38 L Hg b (12.0 - 16.0 g/dL) 10.3 L Hct (37.0 - 55.0 %) 31.9 L MCV (81 - 102 fL) 94 MCH (26.0 - 34.0 pg) 30.5 MCHC (31.0 - 3 7.0 g/dL) 32.3 RDW (11.6 - 14.4 %) 12.8 Plt Count (150 - 4 00 10 3/uL) 180 MPV (9.0 - 12.6 fL) 12.0 Neut % (Auto) (33. 0 - 76.0 %) 69.6 Lymph % (Auto) (14.0 - 56.4 %) 21.2 Lanier % (Auto) (0.0 - 12.9 %) 6.6 Eos % (Auto) (0.0 - 7.0 %) 0.6 Bas o % (Auto) (0 - 2.0 %) 1.0 Neut # (Auto) (1.5 - 7.0 10 3/uL ) 3.59 Lymph # (Auto) (1.50 - 4.00 10 3/uL) 1.09 L Lanier # (Auto) (0.20 - 0.80 10 3/uL) 0.34 Eos # (Auto) (0.0 - 0 .5 10 3/uL) 0.03 Baso # (Auto) (0.0 - 0.1 10 3/uL) 0.05 Abs Immat Gran (auto) (0.000 - 0.100 x10 3/uL) 0.050 Immature G ran % (0.0 - 1.0 %) 1.0 Nucleated RBC % (0 - 0.2 %) 0.0 Nuc leated RBCs # (0.000 - 0.012 10 3/uL) 0.000 10/01 10/01 06/ 3 2056 2103 2106 Chemistry POC Glucose (70 - 105 mg/dL) 502 *H Lactic Acid (0.4 - 2.0 mmol/L) 2.3 H Serology SA RS-CoV-2 Ag (Rapid) (Negative) NEGATIVE Microbiology: Date/T eduardo Procedure - Status Source Growth 10/01 2106 Infl uenza Virus Type B Antigen - COMP NASAL 10/01 2106 Influenza Virus Type A Antigen - COMP NASAL 10/01 2056 Blood Culture - RES BLOOD 10/01 2056 Blood Culture - RES BLOOD 10/01 2056 Blood Culture - RES BLOOD 10/01 2056 Blood Culture - R ES BLOOD Recent Impressions:RADIOLOGY - XR CHEST 1 V 1952 Report Impression - Status: SIGNED Entered: 06/2021 IMPRESSION: 1. No acute cardiopulmonary process. Impression By: [email or web address] - Hector Roach MD Lab Imaging StatementLaboratory radiographic studies reviewe d and considered in the medical decision-making. Point of Care TestingRhythm Strip Interpretation Rate 102 Rhyt hm Strip Interpretation Interpreted by me, Sinus tachycar tati ECG #1 Interpretation ECG Interpretation NoteThe ECG interpretation was done contemporaneously by me. This is an adequate tracing. There is no acute ischemia; th e rhythm is sinus tachycardia; IA does not demonstrate AV he art block; QRS does not demonstrate a bundle branch block; ST and T waves do not show any ST elevation to suggest ac [place]; see [place] for details and measurements; agree with co mputer interpretation. Re-Evaluation MDM )( Re-Evaluati on/Progress #1)( Re-Eval Status Improved ED CourseMedication (s) OrderedMedication(s) Ordered:Anti-Infective Agen ts Sig/Chris Start time Last Medication Dose Route Stop Time Status Admin Ceftriaxone Sodium 1,000 MG X1ED STA 10/01 2025 DC 10/01 Sodium Chloride 10 ML IV 10/01 C entral Nervous System Agents Sig/Chris Start time Last M edication Dose Route Stop Time Status Admin Morphine Sulfa te 2 MG X1ED STA 10/02 2035 DC 10/01 IV 10/01 Aspirin 324 MG X1ED STA 10/01 1945 DC PO 10/01 1946 Elec trolytic, Caloric, And Pablo Sig/Chris Start time Last Medicat ion Dose Route Stop Time Status Admin Dextrose/Sodium 1,0 00 ML ASDIR 10/01 2199 AC Chloride IV 10/31 2200 Dextrose/Wa ter 50 ML ASDIR 10/01 2199 CKD IV 10/31 2200 Potassium 20 MEQ ASDIR 10/01 2199 CKD Bicarbonate/Citric PO 10/31 2200 Acid Potassium Chloride 100 ML ASDIR 10/01 2199 CKD I V 10/31 2200 Sodium Bicarbonate 100 MEQ ASDIR 10/01 2199 CKD Sterile Water 400 ML IV 10/31 2200 Sodium Bicar bonate 50 MEQ ASDIR 10/01 2199 CKD Sterile Water 200 ML IV 10/31 220 Sodium Chloride 818.175 ML ONCE ONE 10/01 2199 D C IV 10/01 220 Sodium Chloride 1,000 ML ASDIR 10/01 2200 A C IV 10/31 220 Sodium Chloride 1,000 ML ASDIR 10/01 2200 A C IV 10/31 220 Sodium Chloride 1,000 ML X1ED STA 10/01 202 6 DC IV 10/01 2125 Gastrointestinal Drugs Sig/Chris Start time Last Medication Dose Route Stop Time Status Admin On dansetron HCl 8 MG X1ED STA 10/01 2017 DC 10/01 IV 10/01 2 018 2029 Hormones And Synthetic Substit Sig/Chris Start ti me Last Medication Dose Route Stop Time Status Admin Glu cagon 1 MG ASDIR PRN 10/01 220 AC IM 10/31 2200 Insulin H uman Regular 5.4545 UNIT ONCE 10/01 2199 CKD IV 10/01 235 Insulin Human Regular 100 UNIT ASDIR 10/01 2199 CKD Sodium Chloride 99 ML IV 10/31 220 Skin And Mucous Mem brane Agent Sig/Chris Start time Last Medication Dose Route S top Time Status Admin Mupirocin 1 APPLIC BID 10/02 0900 A C NASAL 10/06 1701 Differential DiagnosisDifferential Di agnosis Abdominal aortic aneurysm, Acute abdominal pain, Acute coronary symndrome, Cholecystitis, Cholelithiasi s, Diabetic ketoacidosis Patient Discharge Departure Vital Signs/ConditionVital SignsFirst Documented: Resu lt Date Time Pulse Ox 100 10/02 2007 B/P 129/71 10/01 2 008 B/P Mean 90 10/02 2007 O2 Delivery Room air 10/01 20 08 Temp 36.8 10/02 2007 Pulse 111 10/02 2007 Resp 20 2007 Last Documented: Result Date Time Pulse Ox 100 10/02 2007 B/P 129/71 10/01 2008 B/P Mean 90 10/02 2007 O2 Delivery Room air 10/02 2007 Temp 36.8 10/01 2008 Pulse 1 11 10/02 2007 Resp 20 10/02 2007 All vital signs availabl e at the time of this entry have been reviewed. Condition Stable Clinical ImpressionClinical ImpressionPrimary Im pression: DKA (diabetic ketoacidosis) Disposition Decision Admit Request Time 2218 Request Date 10/01/21 )( Admis jamila Accepts Yes )( Accepted Time 2218 )( Accepted Da te 10/01/21 Call Information will see patient, agrees with e vincent, agrees with plan Discharge/Care PlanCounseled Regarding Diagnosis, Lab results, Imaging studies, Need for admission Admit NoteI have spoken with the patient and/or caregi vers. I have explained the patient'scondition, diagnoses and treatment plan based on the information availabl e to meat this time. I have answered the patient's and/or caregiver's questions and addressed any concerns. The patien t and/or caregivers have as good an understanding of the patient's diagnosis, condition and treatment plan as can b kirkxpected at this point. The patient has been stabilized w ithin the capability ofthe emergency department. The patie nt will be transported for further care and management or w ill be moved to an observation or inpatient service. I have communicated with the staff or medical practitio ner taking over this patient's care. Critical CareTime Spen t (minutes): 60Services Performed Patient manageme nt by me, Time spent at bedside, Reviewing test results, R eviewing imaging, Discussing patient care, Documentation in recordSeparately billable procedures excluded fr om time.Patient was critically ill due to:DKAMy jose alejandro atment and management were:IV fluids, cultures, antibiotics , insulin bolus and drip, admission, discussion with consu ltants CC Note 2The high probability of sudden, clinically significant deterioration in the patient's condi tion required the highest level of my preparedness to intervene urgently. The services I provided to this patien t were to treat and/or prevent clinically significant dete rioration that could result in severe disability or . Services included the following: chart data review, revie wing nursing notes and/or old charts, documentation t eduardo, technical assistance consultant collaboration regarding findings and treatment options, medication orders and management, direc t patient care, re-evaluations, vital sign assessments and ordering, interpreting and reviewing diagnostic studies/la b tests. Aggregate critical care time was [60] minutes, w hich includes only time during which I was engaged in work directly related to the patient's care, as natalio coreas, whether at the bedside or elsewhere in the Emerg ency Department. It did not include time spent perfor anish other reported procedures or the services of residents , students, nurses or physician assistants. Electronically S igned by Amauri Hess MD on 10/06/21 at 1046RPT #:[id number] OF REPORTEDEmergency depart [facility] [id number]:11:[id number] vailable for patient [id number]:46:2 4 2021-10-01 [id number] [facility] 19:56:[address] [place] [address] PATIENT NAME: DANIELE HINKLE ADMIT D ATE: 10/01/21ACCOUNT NO: [id number] ROOM NO: [place] [address] AGE: 71 REPORT TYPE: eELECTROCARDIOGRAM SEX: F ADMITTING PHYSICIAN:Fadumo Fay MD ATTENDING PHYSICIAN:Erasmo spann MD Order:[id number] Reason : DKA Test Date/T eduardo Stamp:MonOct 01 2021 19:56:37Blood Pressure : * / mmHGVent. Rate : 104 BPM Atrial Rate : 104 BPM P -R Int : 123 ms QRS Dur : 077 ms QT Int : 279 ms P-R-T Ax es : 063 045 022 degrees QTc Int : 367 ms Sinus tachycard iaProbable LVH with secondary repol abnrm Confirmed by NBA ANDREWS ([id number]) on 10/10/2021 7:01:33 PM Referred By: Self Referred Confirmed by:NBA HEATH at [address] [address] PATIENT NAME: DANIELE HINKLE .[id number] 21AVAvailab le for patient [id number]:0 2:31 2021-08-09 [id number]:45:00 [facility] 14:45:00 [place] [facility]Med Order Sheet REPORT #: [id number] REPORT STATUS: Signed DATE: 08/09/21 TIME: 1445 PATIENT : LIZZIE HINKLE UNIT #: [id number] #: [id number] ROOM #: NC.101 BED: 1 : 52 AGE: 71 SEX: F ATTEND: Parish Rudolph MD ADM AUTHOR: Ashleigh Hayes ATTENTION EDITS and/or ADDENDA must be made i n Patient Keeper for this note. Edits and ammendments c reated in [facility] are not visible in Patient Keeper or the legal medical record (HPF). Discharge Medication Reconciliatio n DISCHARGE MEDICATION LISTAspirin Chewable Tab (Aspirin Ashley wable Tab) Dose: 81 MG PO DAILYClopidogrel Tab (Plavix Tab) Dose: 75 MG PO DAILYEzetimibe Tab (Zetia Tab) Dose: 10 MG PO DAILYFolbee 2.5 mg-25 mg-1 mg tablet (folic acid -vit B6-vit B12) Dose: 1 TAB PO DAILYIsosorbide Mononitrate ER Tab (Imdur Tab) Dose: 30 MG PO DAILYMetoprolol Succi iraida XL Tab (Toprol XL Tab) Dose: 25 MG PO DAILYRanexa table t,extended release (ranolazine) Dose: 1000 MG PO BIDLantus Solostar 100 unit/mL (3 mL) subcutaneous insulin pen (ins ulin glargine) Dose: 18UNITS SUBQ QAM, Disp: 2 x 3 mL syringe, Refills: 0 - Inject 18 units every morning.Humal og KwikPen 100 unit/mL subcutaneous (insulin lispro) Dose: SUBQ AC HS, Disp: 1 x 3 mL syringe, Refills: 0 - Use sliding scale instructions on handout from hospital.Hosp: DME - GLUCOSE LANCETS Dose: 1 EACH MISC QID, Disp: 120 -, Refi lls: 0 - Glucose Lancets of ChoiceHosp: DME - GLUCOSE STR IPS Dose: 1 EACH MISC QID, Disp: 120 -, Refills: 0 - Glucose Strips of ChoiceHosp: DME - INSULIN PEN NEEDLES Dose: 1 EA CH MISC ASDIR, Disp: 120 -, Refills: 0 - Insulin Pen Nee dles of choice. STOPPED HOSPITAL MEDICATIONSDc'd: Acetam inophen Tab (Tylenol Tab) 650MG PO Q6H PRN pain 1-3/temp >100.5/headacheDc'd: Cyanocobalamin Tab (Vitamin B-12 Tab) 1000MCG PODAILYDc'd: Dextrose 50% Syringe (D50W Syringe) 50ML IV ASDIRDc'd: Folic AcidTab (Folvite Tab) 3 MG PO DAILYDc'd: Glucagon Inj (Glucagon Inj) 1MG IMASD IRDc'd: guaiFENesin Oral Liquid (Robitussin Sugar-Free O ral Liq) 100MG POQ4H PRN coughDc'd: heparin (porcine) 25, 000 unit/250 mLD5W (100unit/mL)[id number] TITRATE IV Dc'd: hydrALAZINE Inj (Apresoline Inj) 10MG IV Q6H PRN sbp>160Dc'd: Melatonin Tab 3MG PO BEDTIME PRN in somniaDc'd: MupirocinOintment 2% (Bactroban Ointment 2%) 1AP PLIC NASAL BID X 10 dosesDc'd:Ondansetron Inj (Zofran Inj) 4MG IV Q6H PRN nausea and vomitingDc'd:Polyethylene Glycol Powder (Miralax Powder) 1PKT PO DAILY PRNconstipationDc 'd: Pyridoxine Tab (Vitamin B-6 Tab) 50MG PO DAILYDc'd:Senna/Docusate Tab (Senokot S Tab) 1TA B PO BID PRNconstipationElectronically Signed in PatientK eeper by Ashleigh Hayes on08/09/21 14:43 Electronically Si gned by ANGEL LUIS Epperson on 08/09/21 at 1445ATTENTION EDITS and/or ADDENDA must be ma de in Patient Keeper for this note. Edits and ammen dments created in [employer] are not visible in Patien t Keeper or the legal medical record (HPF). RPT #: [id number] OF REPORT CLClinical [id number]:45:[id number] Available for patient [id number]:45:3 2 2021-08-09 [id number]:45:00 [facility] 14:45:00 [facility] ([facility])Hospitalist D/C Summary REPORT #: [id number] REPORT STATUS: Signed DATE: 08/09/21 TIME: 1445 PATIENT: LIZZIE HINKLE UNIT #: [id number] #: [id number] ROOM #: NC.101 BED: 1 : 52 AGE: 71 SEX: F ATTEND: Parish Rudolph MD ADM AUTHOR: Ashleigh Hayes ATTENTION EDITS and/or ADDENDA must be made i n Patient Keeper for this note. Edits and ammendments c reated in [facility] are not visible in Patient Keeper or the legal medical record (HPF). -- CO-SIGNATURE -- COMMENTS:Agree with the findings and plan as documented by ANGEL LUIS Dueñas. Patientdiscussed with PA. Signed in [facility] r by ANA MOODY MD on 08/10/21 at 06:50 -- PROBLEMS/PROC EDURES -- ADMISSION DATE:08/07/21 ADMITTING DIAGNOSES: - Atherosclerotic peripheral vascular disease of e xtremity - CAD (coronary artery disease) - DKA (diabetic ke toacidoses) - Elevated troponin - Noncompliance - NSTEMI (no n-ST elevated myocardial infarction) - Statin intoler ance - Type 1 diabetes mellitus with ketoacidosis, uncontrol led DISCHARGE DATE:08/09/21 DISCHARGE DIAGNOSES: - Atherosclerotic peripheral vascular disease of e xtremity - CAD (coronary artery disease) - DKA (diabetic ke toacidoses) - Elevated troponin - Noncompliance - NSTEMI (no n-ST elevated myocardial infarction) - Statin intoler ance - Type 1 diabetes mellitus with ketoacidosis, uncontrol led -- HOSPITAL COURSE -- HOSPITAL COURSE:HISTORY OF IA ESENT ILLNESS:71 y/o F with PMHx of blindness, CAD, PA D, HTN, HLD, T1DM, multiple DKAadmissions, and medicatio n noncompliance presented to the ED with c/ogenera lized weakness, polyuria, and hyperglycemia (BG 600s a t home for the last couple days). Denies fever, chest pain, palpitations, SOB, cough, abd pain,N/V/D, dysuri a, REEVES, or syncope. Pt lives at home with her . She statesshe's had inconsistent medication intake as she cannot see, and her isnot always there to give her meds in addition to sliding scale insulin. Perhusband at bedside, he puts her meds in front of her and asks her to take th jori front of him, but she refuses. They have been looking for a home healthnurse to assist with administration of med ications. In the ED, initialdiagnostics were c/w DKA and A KI and also revealed elevated troponin. Pt wasstarted on ins ulin gtt and heparin gtt and admitted to the ICU. Haile Little,Endocrinology, and Cardiology consulted. HO SPITAL COURSE:Pt was admitted for reasons below. Per RN , pt refused Heparin gtt last night. Pt was seen and examined on day ofdischarge. Pt states she's feeling well. D enies chest pain, SOB, abd pain, N/V,or any complaints. BG i mproving. Eager to go home. Pt stable for discharge hometo day. Cleared for DC by Endocrinology and Cardiology. Advised outpt f/u withPCP (referral given) and aforement ioned specialists. eRx sent for adjustedinsulin regime n and DME (lancets/strips/pen needles) and pt to continuecardioprotective meds as noted below. Co unseled on importance of medicationcompliance. CM consulted to arrange HH PT/OT and skilled nurse to assist withadminis tration of medications. Pt and at bedside expressedunderstanding and agreed to treatment p rodríguez. Answered all questions. Strict EDreturn precauti ons given. Type 1 DM with ketoacidosis, uncontrolledMetabol ic acidosis 2/2 above - resolved- A1c >14.0- s/p insulin gtt in ED- Lantus 18u qam, Humalog SSI- BG checks ac/hs, hy poglycemia protocol- Endocrinology following - D/w Dr. Franky banks, who has cleared pt for DC- Sider consulted fo r DM education NSTEMITriple vessel CADPAD of BLE- Den ies chest pain; hemodynamically stable- Serial Trop downtr ended with peak 7687- TTE (08/09/21): EF 55-60%, impaired LV relaxation, trace TR, mild MR- s/p Heparin gtt- Continue home ASA, Plavix, BB, Zetia- Reviewed previous c jimbo and d/w Dr. Oliva. Pt had LHC in 09/2020 thatshowed 3v CAD. Aortocoronary bypass was recommended as outpt af ter improvedglycemic control and medical compliance per CTS. However, pt declined invasiveprocedures and opte d for medical mgmt during her outpt f/u appts withCard iology. During this admission, pt were counseled again onoptions for CABG vs. PCI vs. medical mgmt. Pt is at high risk for postopcomplications d/t her inconsisten t medication intake and uncontrolled DM. Ptwas adv ised the risks of CABG can include sternotomy wound infec tion and poorhealing in setting of uncontrolled DM. Pt is also not an ideal candidate forPCI b/c she cannot reliabl y take DAPT, which poses high risk for in-stentrestenosis/thrombosis. Pt expres sed understanding. Pt againdeclined any procedures a s well and opted for medical mgmt.- Cardiology following - Cleared for DC ADOLFO likely prerenal in setting of DKA - resol simi- Last known Cr 0.9-1.0 (09/2020); may have possible CK D as well from DMnephropathy - Cr 1.5 on presentation -> d owntrended to WNL- DC IVF- Monitor renal function/I O, avoi d nephrotoxic agents, renally dose meds Hyponatrem ia - resolved- Na 129 on admission -> WNL now- DC IVF - Trend BMP HTN- Continue home BB, Imdur, Ranexa- PRN IV Hyd ralazine HLD- Continue home Zetia (intolerant to statin) Physical deconditioningLegally blind in both eyes- PT/OT- Fall precautions; supportive care- Pt has difficulty with med compliance d/t visual impairment- CM consulted f or HH PT/OT and skilled nurse DVT PPx: Heparin gttCODE STATU S: FullDispo: Home with and HHS -- DISCHARG E MEDICATIONS -- ALLERGIES:codeine (Unknown - Allergy)lisinopril (Severe - Allergy) DISCHARGE MEDICATIONS:Please refer to Discharge Medication list for a complete list of dischargemedicationsAspirin Ashley wable Tab (Aspirin Chewable Tab) 81 MG PO DAILYClopidogrel Tab (Plavix Tab) 75 MG PO DAILYDME - GLUCOSE LANCETS 1 EACH MISC QID (Glucose Lancets of Choice), Disp: 120- , Refills: 0DME - GLUCOSE STRIPS 1 EACH MISC QID (Glucose S trips of Choice), Disp: 120 -,Refills: 0DME - INSULIN PEN NEEDLES 1 EACH MISC ASDIR (Insulin Pen [place] of choice.) ,Disp: 120 -, Refills: 0Ezetimibe Tab (Zetia Tab) 10 MG PO DAILYFolbee 2.5 mg-25 mg-1 mg tablet (folic acid-vit B6-vit B12) 1 TAB PO DAILYHumalog KwikPen 100 unit/mL subcutaneous (insulin lispro) SUBQ AC HS (Usesliding scale instruction s on handout from hospital.), Disp: 1 x 3 mL syringe, Refills: 0Isosorbide Mononitrate ER Tab (Imdur Tab) 30 MG PO DAILYLantus Solostar 100 unit/mL (3 mL) subcutan eous insulin pen (insulin glargine)18UNITS SUBQ QAM ( Inject 18 units every morning.), Disp: 2 x 3 mL syringe,Re fills: 0Metoprolol Succinate XL Tab (Toprol XL Tab) 25 MG PO DAILYRanexa tablet,extended release (ranolazine) 1000 MG PO BID -- DISCHARGE INSTRUCTIONS -- ADMISSION ORDER S:Discharge Follow Up:ADT - Admission Orders In 1-2 weeks; I n 1-2 weeks; ANDREINA OLIAV MD; NINI DOAN MD; In 1-2 weeks; In 1-2 weeks; In 1-2weeks; CARMINE:Aleksandar Oliva MD; TOBY:Nini Doan MD Details: Order num reymundo: [id number]: ADT - Admission OrdersOrder s tatus: Transmitted Details:Consulting provider 1: CARMINE:Andreina Olivaonsult follow up timefra me: In 1-2 weeksConsulting provider 2: TOBY:Hill Doan MDConsult follow up timeframe: In 1-2 weeks Orde red by: Ashleigh Hayes Aug 09, 2021 2:45pmEntered by : Ashleigh Hayes Service date: Aug 09, 2021 2: 43pm PK DISCHARGE ORDERS:DC Order - No eCQM 2019.2 Detbradley ls: Details: Order number: [id number]: PKDC - PK Discharge OrdersOrder status: Transmitted Detail s:Discharge order: YesDischarge to: Home Health wPlan of Car eDiet: Diabetic CardiacActivity: As ToleratedPCP: [email or web address]:Juan Manuel Hernadez MDPCP phone: PCP follow up timeframe: In 1-2 weeksAdditional inst ructions: Comply with medication regimen including cardiop rotective medications, Lantus 18 units every morning, and sliding scale insulin (use handout from hospital).Additi onal Discharge Routines: PCP Follow-Up Ordered by: Ashleigh De La Vega Aug 09, 2021 2:45pmEntered by: Michael Hayes Service date: Aug 09, 2021 2:43pm Discharge w/Instructions:PKDC - PK Discharge Orders JUAN MANUEL HERNADEZ MD; ; In 1-2 weeks; WES Arshad CP Follow-Up ADDTIONAL DISCHARGE INSTRUCTIONS:Emerg ency Instructions: The patient was instructed to pres [facility] the [facility] or call 911 should t heir symptoms return or worsen.; -- OBJECTIVE -- JEN LS (08/08 18:20 - 08/09 18:20):Temperature C: 36.6 (36.6 - 36.8)Pulse Rate 77 (70 - 79) Respiratory rate: 17 (14 - 18) BP: 121/77 (117/63 - 147/86) I/Os (08/08 07:00 - 08/09 07:0 0):Net 155.00Intake 155.00 -EXAM- OTHER: General: Loom Tuner nically ill-appearing, thin, and elderly female in NAD. Head: Normocephalic, atraumatic. Eyes: Legally blind. Ears: grossly normal hearing. Nose: No deformity, no d ischarge, no inflammation, no lesions. Mouth: Oropharynx w ithout deformities or lesions, normal mucosa.. Neck: Landin pple. Chest: Grossly normal appearance. Lungs: Clear b ilaterally with normal respiratory effort. Heart: Regular r ate and rhythm. Abdomen: Soft, non-tender. Musculoskelet al: No deformity, joint ROM grossly normal. Extremities : No clubbing, no cyanosis, no edema. Neurological: N o focal deficits. Pulses: Pulses normal in all extremiti es. Skin: Warm, dry. Psychiatric: Alert and oriented to ti me, person, place. Normal mood and affect, intact judgment a nd insight. -- DATA -- LABS GLU BED (08/09/21 15:16 )GLUBED 192 H GLU BED (08/09/21 11:16)GLUBED 168 H GLU BED ( 08/09/21 07:52)GLUBED 89 PTT (08/09/21 04:05)THROMBOPLAST IN TIME PARTIAL 21.3 L CBC W/AUTO DIFF (08/09/21 04:05)W MEHRDAD BLOOD CELL 3.1L L RED BLOOD CELL 3.14 LHEMOGLOBIN 9.6L LHEMATOCRIT 27.9L LMEAN CELL VOLUME 89MEAN CELL HGB 30.6MEAN CELL HGB CONCENTRATION 34.4RED CELL DIS TRIBUTION WIDTH 13.7PLATELET COUNT 184MEAN PLATELET VOLUME 11.3NEUTROPHIL % 50.0IMMATURE GRANULOCYTE % 0.3L YMPHOCYTE % 36.0MONOCYTE % 10.2EOSINOPHIL % 2.9BASOPHIL % 0. 6NUCLEATED RBC % 0.0NEUTROPHIL # 1.57IMMATURE GRANULOCYTE # 0.010LYMPHOCYTE # 1.13 LMONOCYTE # 0.32EOSINOPHI L # 0.09BASOPHIL # 0.02NUCLEATED RBC # 0.000 MAG ( 04:05)MAGNESIUM 1.8 BASIC METABOLIC PANEL (08/09 04:05)SODIUM 136POTASSIUM 3.7CHLORIDE 105CARBON DIOXIDE 24ANION GAP 10.7GLUCOSE 135H HBLOOD UREA NITROGE N 18GLOMERULAR FILTRATION RATE >=60 max estimateCR EATININE 0.9BUN/CREATININE RATIO 20.0CALCIUM 8.3 L PHOS ( 08/09/21 04:05)PHOSPHOROUS 2.5 PTT (08/08/21 22:00)THROMB OPLASTIN TIME PARTIAL 36.9 H PHOS (08/08/21 22:00)PHOSPHO JODIE 2.5 BASIC METABOLIC PANEL (08/08/21 22:00)SODIUM 134 L LPOTASSIUM 3.9CHLORIDE 104CARBON DIOXIDE 24ANION GAP 9.9GLUCOSE 211H HBLOOD UREA NITROGEN 20GLOMERULA R FILTRATION RATE >=60 max estimateCREATININE 1.0BUN/CREATININE RATIO 20.0 CALCIUM 8.4 L GLU B ED (08/08/21 20:23)GLUBED 209 H GLU BED (08/08/21 1 9:33)GLUBED 206 H K (08/08/21 19:33)POTASSIUM 3.9 -- QUALITY -- -MEDICATIONS- - I attest that the foregoing medi cation list in the medical record is true,accurate, and comp lete to the best of my knowledge. -ADVANCED CARE PLAN >65- P ATIENT HAS AN ADVANCE CARE PLAN:Yes PATIENT HAS A SURROGATE DECISION MAKER:Yes -VTE PROPHYLAXIS -GENERAL- Yes TYPE OF VTEHeparin -- ATTESTATION -- TIME SPENT ON PATIENT CARE: - Discharge planning 45 minutes - > 50% of time spent on Counseling/Care Coordination CARE ACTIVITIES / C ARE COORDINATION: - I have reviewed the history and repeated the ingram elements - I have seen and examined this patient - I have reviewed the progress in the clinical cou rse since the lastexamination - I have discussed the patie nt's condition with other members of the care team Si gned in PatientKeeper by Ashleigh Hayes on 08/09/21 at 18:54 Cosigned by ANA MOODY MD on 08/10/21 at 06:50 at 0650 at 0650ATTENTION EDITS and/or ADDENDA must be ma de in Patient Keeper for this note. Edits and ammen dments created in [facility] are not visible in Patien t Keeper or the legal medical record ([facility]). RPT #: [id number] OF REPORT DSDischarge [id number]:[id number] 3AVAvagood choudhary for patient [id number] :28 2021-08-09 [id number]:00 [facility] 12:00:00 [place] [facility]Endocrinology Progress Note REPORT #: [id number] REPORT STATUS: Signed DATE: 08/09/21 T EDUARDO: 1200 PATIENT: LIZZIE HINKLE UNIT #: [id number] CCOUNT #: [id number] ROOM #: NC.101 BED: 1 : 52 AGE: 71 SEX: F ATTEND: Parish Rudolph MD ADM AUTHOR: Nini Doan MD ATTENTION EDITS and/or ADDENDA must be made i n Patient Keeper for this note. Edits and ammendments c reated in [facility] are not visible in Patient Keeper or the legal medical record ([facility]). -- ASSESSMENT AND PLAN -- PROBLEMS : 1: Type 1 diabetes mellitus with ketoacidosis, uncontrolle dA/P: UNCONTROLLED (HGBA1C=>14.0%,HYPERGLYCEMIA) TYPE I DM IN DKA. DKA RESOLVED:OJM=139 HS CPNYFLB=853 AG=10.7 . OBSERVE ON SQ BASAL/BOLUS INSULIN. MUST HAVE ABEDTIME SN ACK. -- SUBJECTIVE -- CHIEF COMPLAINT:HYPERGLYCEMIA HPI: EVENTS NOTED. ON RA. TOLERATING DIET. -REVIEW OF SYSTEM S- GENERAL: Negative for feverRESPIRATORY: Negative for dyspneaCARDIOVASCULAR: Negative for palpitations.GASTROINTESTINAL: Negative for abdo gabby pain or nauseaENDOCRINE: Negative for polyphagia, peter ydipsia, polyuria -- OBJECTIVE -- VITALS (08/08 12:01 - 0 08/09 12:01):Temperature C: 36.6 (36.4 - 36.8)Pulse Ra te 73 (60 - 81)Respiratory rate: 15 (12 - 18)BP: 126/86 (109 /63 - 147/86) I/Os (08/08 07:00 - 08/09 07:00):Net 155 .00Intake 155.00 -EXAM- GENERAL: Well developed, well nour ished, in no apparent distress, THINHEAD: Normocephalic, atraumatic.EYES: LEGALLY BLINDNECK: trachea midl ine.CHEST: Grossly normal appearance.LUNGS: NORMAL CHEST WA LL MOVEMENT HEART: NO TACHYCARDIAABDOMEN: NON-DISTENDEDNEURO LOGICAL: NORMAL SPEECHPSYCHIATRIC: Alert and oriented to time, person, place. -- DATA -- MEDICATIONS PYRIDOXINE HCL 50 MG PO DAILYMUPIROCIN 1 APPLIC NASAL BIDSENNA/DOCUSA TE SODIUM 1 TAB PO BID PRNHEPARIN SODIUM,PORCINE/D5W 04223 U NIT IV TITRATEpolyethylene glycoL 3350 1 PKT PO DAILY P RNGLUCAGON 1 MG IM ASDIRACETAMINOPHEN 650 MG PO Q6H PRNguai FENesin 100 MG PO Q4H PRNONDANSETRON HCL/PF 4 MG IV Q6H PRNM ELATONIN 3 MG PO BEDTIME PRNCYANOCOBALAMIN 1000 MCG PO WILMAN YASPIRIN 81 MG PO DAILYINSULIN LISPRO 0 UNITS SUBQ AC HShydr ALAZINE HCL 10 MG IV Q6H PRNRANOLAZINE 1000 MG PO [id number] IN GLARGINE 18 UNITS SUBQ 0800METOPROLOL SUCCINATE 25 MG PO DAILYISOSORBIDE MONONITRATE 30 MG PO DAILYDEXTRO SE 50%-WATER 50 ML IV ASDIREZETIMIBE 10 MG PO DAILY clopidogreL 75 MG PO DAILYFOLIC ACID 3 MG PO DAILY LABS GLU BED (08/09/21 11:16)GLUBED 168 H GLU BED (08/09/21 0 7:52)GLUBED 89 PTT (08/09/21 04:05)THROMBOPLASTIN TIME PARTI AL 21.3 L CBC W/AUTO DIFF (08/09/21 04:05)WHITE BLOOD CELL 3.1L LRED BLOOD CELL 3.14 LHEMOGLOBIN 9.6L LHEMATOCRIT 27. 9L LMEAN CELL VOLUME 89MEAN CELL HGB 30.6MEAN CELL HGB CONCENTRATION 34.4RED CELL DISTRIBUTION WIDTH 13 .7PLATELET COUNT 184MEAN PLATELET VOLUME 11.3NEUTROPHIL % 5 0.0IMMATURE GRANULOCYTE % 0.3LYMPHOCYTE % 36.0MONOCYTE % 10. 2EOSINOPHIL % 2.9BASOPHIL % 0.6 NUCLEATED RBC % 0.0NEUTROPH IL # 1.57IMMATURE GRANULOCYTE # 0.010LYMPHOCYTE # 1.1 3 LMONOCYTE # 0.32EOSINOPHIL # 0.09BASOPHIL # 0.02NUCLEATED RBC # 0.000 MAG (08/09/21 04:05)MAGNESIUM 1.8 BASIC METABOLI C PANEL (08/09/21 04:05)SODIUM 136POTASSIUM 3.7CHLORIDE 105CARBON DIOXIDE 24ANION GAP 10.7GLUCOSE 135H HBLOOD URE A NITROGEN 18GLOMERULAR FILTRATION RATE >=60 max estimateCR EATININE 0.9BUN/CREATININE RATIO 20.0CALCIUM 8.3 L PHOS ( 08/09/21 04:05)PHOSPHOROUS 2.5 PTT (08/08/21 22:00)THROMB OPLASTIN TIME PARTIAL 36.9 H PHOS (08/08/21 22:00)PHOSPHO JODIE 2.5 BASIC METABOLIC PANEL (08/08/21 22:00)SODIUM 134 L LPOTASSIUM 3.9CHLORIDE 104CARBON DIOXIDE 24ANION GAP 9.9GLUCOSE 211H HBLOOD UREA NITROGEN 20GLOMERULA R FILTRATION RATE >=60 max estimateCREATININE 1.0BUN/CREATININE RATIO 20.0CALCIUM 8.4 L GLU BE D (08/08/21 20:23)GLUBED 209 H GLU BED (08/08/21 19:33)GLUBE D 206 H K (08/08/21 19:33)POTASSIUM 3.9 GLU BED (08/08/21 15:52)GLUBED 279 H PTT (08/08/21 14:36) THROMBOP LASTIN TIME PARTIAL 49.9 D H TROP-I HIGH SEN (08/08/21 14:36 )TROP-I HIGH SENSITIVITY 4905 *H PHOS (08/08/21 14:36)PH OSPHOROUS 2.7 BASIC METABOLIC PANEL (08/08/21 14:36)SODIUM 134L LPOTASSIUM 4.1CHLORIDE 102CARBON DIOXIDE 27ANION GAP 9.1GLUCOSE 289D H D HBLOOD UREA NITROGEN 23GLOME RULAR FILTRATION RATE 57 LCREATININE 1.2BUN/CREATININ E RATIO 19.2CALCIUM 8.4 L GLU BED (08/08/21 13:51)GLUBED 258 H -- ATTESTATION -- TIME SPENT ON PATIENT CARE: - Dir ect 30 minutes CARE ACTIVITIES / CARE COORDINATION: - I have reviewed the history and repeated the ingram elemen ts - I have seen and examined this patient - I have reviewed the progress in the clinical course since the lastex amination - I have discussed the patient's condition with ot her members of the care team ADDITIONAL DETAIL:I HAVE SPENT 30 MINUTES IN THE EVALUATION AND TREATMENT OF THIS PATIENT. Signed in PatientKeeper by Nini Doan MD on 03/22 at 12:03 at 1203ATTENTION EDITS and/or ADDENDA must be ma de in Patient Keeper for this note. Edits and ammen dments created in [facility] are not visible in Patien t Keeper or the legal medical record ([facility]). RPT #: [id number] OF REPORT PRProgress [id number]:[id number] Available for patient [id number]:4 0 2021-08-09 [id number]:52:00 [facility] 08:52:00 [facility] ([facility])Cardiology Progress Notes REPORT # : [id number] REPORT STATUS: Signed DATE: 08/09/21 TIME: 851 PATIENT: LIZZIE HINKLE UNIT #: [id number] #: [id number] ROOM #: [place] BED: 1 : 52 AGE: 71 SEX: F ATTEND: Parish Rudolph MD ADM AUTHOR: Andreina Oliva MD ATTENTION EDITS and/or ADDENDA must be made i n Patient Keeper for this note. Edits and ammendments c reated in [facility] are not visible in Patient Keeper or the legal medical record ([facility]). -- ASSESSMENT AND PLAN -- PROBLEMS : 1: NSTEMI (non-ST elevated myocardial infarction)A/P: - EC G - SR, rate 84, no ischemic changes- Tn 2094 --> 7687; continue to trend- she has uncontrolled DM thus can be asymp tomatic for that reason- rec empiric treatment for NSTEMI wi th heparin gtt for 48 hours- TTE 04/08/21 - EF 50-55%, no WM As- driven by secondary phenomenon (DKA/ADOLFO); denies any CP or SOB- c/w ASA 81 mg QD, plavix 75 mg QD, toprol 25 mg QD, imdur 30, ranexa 1000 BID- not on statin due to severe myalgias, on zetia- limited echo pending- Given her NSTEMI , I discussed the options of CABG vs. PCI vs. medica l therapywith the patient and her Yon. I explained to her that she is highrisk for proced ure and surgery related complications given her inconsistentmedication intake and uncontrolled D M. I advised her that risks of CABG caninclude a seri ous sternotomy wound infection and poor wound healin g in thesetting of DM. She is also not an ideal dyan date for PCI given she cannotreliably take dual antiplate let therapy and has uncontrolled DM which would puther at hi gh risk for in-stent restenosis/thrombosis which would be fa terra. Giventhat she is asymptomatic, stable, would jose alejandro at with medical therapy for NSTEMIwith DAPT, therapeutic AC- the patient clearly stated that he puts medications in front of her to takeand she refuses to take them- ok to d /c from cardiology standpoint 2: CAD (coronary artery di sease)A/P: - [facility] 10/19: RCA mid 100% with lt-to-rt collater ,CX mid 60-70%, MOM prox8-0%, LAD prox and mid two conse cutive 60-70% stenoses with near-significantFFR of 0.81 , D2 ostial 70% then prox 80% sten, edp 3 --> eval for 4v ac b tolad, d2, mom, and distal RCA --> Dr Mueller need for ACB yet he wishes towait and do it on OP basis once a1c is lower and once compliance is documented- DKA/NSTEMI ad m 04/20; family opted for medical management- readmit for DKA/NSTEMI yet CP free- asp, plavix, lipitor, toprol, imdur , ranexa- check echo- TTE 04/08/21 - EF 50-55%, no WMA 3: D KA (diabetic ketoacidoses)A/P: - A1C >14.0% 08/20- s trict glycemic control - mxm per endo/primary- complia nce encouraged- c/w insulin 4: acute renal failureA/ P: ac d/t dehydration/DKAresolvedmonitor BMPavoid nephroto xinsCr 1.6 --> 1.3 --> 0.9 5: PADA/P: -80% sten ostial r t SFA on lted groin angio with [facility] 10/19-laus 10/19: Change from triphasic to monophasic waveforms in the right femoralartery and at the left lower leg below th e popliteal artery suggesting stenosis.-rec RO and poss well logging captain mud analysis in the future once compliance confirmed and improvement euB9H-dit, plav, better BS ctrl-avoid low BP 6: Statin into leranceA/P: - severe myalgias on lipitor- on zetia 7: Noncom plianceA/P: - encouraged compliance with meds -- SUBJECTIVE -- PATIENT NARRATIVE:No acute events. Notified by RN that p t refusing heparin last night. -- OBJECTIVE -- VITALS (07/30 0 08:52 - 08/09 08:52):Temperature C: 36.8 (36.4 - 36.8)Pu lse Rate 70 (60 - 81)Respiratory rate: 15 (12 - 18)BP: 131/7 6 (109/63 - 147/76) I/Os (08/08 07:00 - 08/09 07:00):Net 155 .00Intake 155.00 -EXAM- OTHER: General: Well developed, well nourished, in no apparent distress. Head: Nor mocephalic, atraumatic. Eyes: PERRL, EOM intact, conjuncti va and sclera clear Chest: Grossly normal appearance. Lungs: Clear bilaterally with normal respiratory effort . Heart: Regular rate and rhythm, normal S1, S2, no murmu rs, no rubs, no gallops Abdomen: Soft, non-tender, n o organomegaly, no masses noted Extremities: No clubbing, no cyanosis, no edema. Neurological: No focal deficits, normal muscle strength, normal tone. Pulses: Pulses normal in all extremities. Skin: Intact withou t significant lesions, or rashes -- DATA -- MEDIC ATIONS PYRIDOXINE HCL 50 MG PO DAILYMUPIROCIN 1 APPLIC NASAL BIDSENNA/DOCUSATE SODIUM 1 TAB PO BID PRNHEPARIN SODIUM,PORCINE/D5W 80458 UNIT IV TITRATESODIUM C HLORIDE 0.9% 1000 ML IV .[id number] glycoL 3350 1 PKT PO DAILY PRNGLUCAGON 1 MG IM ASDIR ACETAMINOPHEN 65 0 MG PO Q6H PRNguaiFENesin 100 MG PO Q4H PRNONDANSETRON HCL/ PF 4 MG IV Q6H PRNMELATONIN 3 MG PO BEDTIME PRNCYANOCOBALAM IN 1000 MCG PO DAILYASPIRIN 81 MG PO DAILYINSULIN LISPRO 0 U NITS SUBQ AC HShydrALAZINE HCL 10 MG IV Q6H PRNRANOLAZINE 1000 MG PO [id number] GLARGINE 18 UNITS SUBQ 0800METOPROL OL SUCCINATE 25 MG PO DAILYISOSORBIDE MONONITRATE 3 0 MG PO DAILYDEXTROSE 50%-WATER 50 ML IV ASDIREZETIMIBE 10 MG PO DAILYclopidogreL 75 MG PO DAILYFOLIC ACID 3 MG P O DAILY LABS GLU BED (08/09/21 07:52)GLUBED 89 PTT (07/30 05/22 04:05)THROMBOPLASTIN TIME PARTIAL 21.3 L CBC W/A UTO DIFF (08/09/21 04:05)WHITE BLOOD CELL 3.1L LRED BLOOD CELL 3.14 LHEMOGLOBIN 9.6L LHEMATOCRIT 27.9L LMEAN CELL VO LUME 89MEAN CELL HGB 30.6MEAN CELL HGB CONCENTRATION 34.4RED CELL DISTRIBUTION WIDTH 13.7PLATELET COUNT 184MEAN PL ATELET VOLUME 11.3NEUTROPHIL % 50.0IMMATURE GRANULOCYTE % 0.3LYMPHOCYTE % 36.0MONOCYTE % 10.2EOSINOPHIL % 2.9BASOPHIL % 0.6NUCLEATED RBC % 0.0NEUTROPHIL # 1.57IMMATUR E GRANULOCYTE # 0.010LYMPHOCYTE # 1.13 LMONOCYTE # 0.32EOSINOPHIL # 0.09BASOPHIL # 0.02NUCLEATED RB C # 0.000 MAG (08/09/21 04:05)MAGNESIUM 1.8 BASIC METABOLI C PANEL (08/09/21 04:05)SODIUM 136POTASSIUM 3.7CHLORIDE 105CARBON DIOXIDE 24ANION GAP 10.7 GLUCOSE 135H HBLOOD URE A NITROGEN 18GLOMERULAR FILTRATION RATE >=60 max estimateCR EATININE 0.9BUN/CREATININE RATIO 20.0CALCIUM 8.3 L PHOS ( 08/09/21 04:05)PHOSPHOROUS 2.5 PTT (08/08/21 22:00)THROMB OPLASTIN TIME PARTIAL 36.9 H PHOS (08/08/21 22:00)PHOSPHO JODIE 2.5 BASIC METABOLIC PANEL (08/08/21 22:00)SODIUM 134 L LPOTASSIUM 3.9CHLORIDE 104CARBON DIOXIDE 24ANION GAP 9.9GLUCOSE 211H HBLOOD UREA NITROGEN 20GLOMERULA R FILTRATION RATE >=60 max estimateCREATININE 1.0BUN/CREATININE RATIO 20.0CALCIUM 8.4 L GLU BE D (08/08/21 20:23)GLUBED 209 H GLU BED (08/08/21 19:33)GLUBE D 206 H K (08/08/21 19:33)POTASSIUM 3.9 GLU BED (08/08/21 15:52)GLUBED 279 H PTT (08/08/21 14:36)THROMBOPL ASTIN TIME PARTIAL 49.9 D H TROP-I HIGH SEN (08/08/21 14:36 )TROP-I HIGH SENSITIVITY 4905 *H PHOS (08/08/21 14:36)PH OSPHOROUS 2.7 BASIC METABOLIC PANEL (08/08/21 14:36)SODIUM 134L LPOTASSIUM 4.1CHLORIDE 102CARBON DIOXIDE 27ANION GAP 9.1GLUCOSE 289D H D HBLOOD UREA NITROGEN 23GLOME RULAR FILTRATION RATE 57 LCREATININE 1.2 BUN/CREATININ E RATIO 19.2CALCIUM 8.4 L GLU BED (08/08/21 13:51)GLUBE D 258 H LACTIC ACID (08/08/21 11:35)LACTIC ACID 0.6 TROP -I HIGH SEN (08/08/21 11:35)TROP-I HIGH SENSITIVITY 6983 *H PHOS (08/08/21 11:35)PHOSPHOROUS 2.8 BASIC METABOLIC PANEL (08/08/21 11:35)SODIUM 135POTASSIUM 4.1CHLORIDE 104CARBON DIOXIDE 25ANION GAP 10.1GLUCOSE 110H HBLOOD UREA NITROGEN 24H HGLOMERULAR FILTRATION RATE 57 LCREATININE 1.2BUN/CREATININE RATIO 20.0CALCIUM 9.2 GLU BED (08/08/21 11:11)GLUBED 80 Signed in PatientKeeper by Andreina Gonzalez MD on 08/09/21 at 13:34 at 1334ATTENTION EDITS and/or ADDENDA must be ma de in Patient Keeper for this note. Edits and ammen dments created in [facility] are not visible in Patien t Keeper or the legal medical record (HPF). [facility] #: [id number] OF REPORT PRProgress [id number] Available for patient [id number] [id number] 2021-08-09 [id number] [facility] Claudio kristen HCANC 08:32:00 [place] [id number] [facility] [id number] PATIENT NAME: LIZZIE HINKLE ADMIT DA TE: 08/07/21ACCOUNT NO: [id number] ROOM NO: [facility] AGE: 71 REPORT TYPE: eECHO CARDIOGRAM REPORT SEX: F ADMITTING PHYSICIAN:Parish Rudolph MD ATTENDING PHYSICIAN:Parish Rudolph MD [id number] ECHO2 DDOP ECHO 2D COMPLETE W/CF DOP [facility] [place] [address] Report o f EchocardiogramName: LIZZIE HINKLE Study D ate: 08/09/2021 08:32 AMMRN: [id number] Patient Location: [place] [address] 1Account Number: [id number]: [id number] Gender: FemaleAge: 71 yrs Left Ventricle: The left ventr icle is normal in size. There is normal leftventricular wall thickness. Left ventricular systolic function is normal.Ejection Fraction = 55-60%. The transmitr al spectral Doppler flow pattern issuggestive of impaired LV relaxation. Right Ventricle: The right ventricle is normal size. The right ventricularsystolic function is normal. Atria: The left atrial size is normal. Right atr ial size is normal. Theinteratrial septum is intact with no evidence for an atrial septal defect. Mitral Valve: The m itral valve leaflets appear thickened, but open well.Calcifi ed mitral apparatus. There is mild mitral regurgitation. T ricuspid Valve: The tricuspid valve is normal. There is t race tricuspidregurgitation. RVSP29.5 mmHg. Aortic Va lve: The aortic valve is trileaflet. The aortic valve is mild tomoderately calcified. No hemodynamically signi ficant valvular aortic stenosis.No aortic regurgitation is present. Pulmonic Valve: The pulmonic valve leaf lets are thin and pliable; valve motionis normal. There i s no pulmonic valvular regurgitation. Pericardium/Ple ural: There is no pericardial effusion. [facility] [address] PATIENT NAME: LIZZIE HINKLE 4 MMode/2D Measurements CalculationsIVSd: 0.84 cm LVIDd: 3. 8 cm LVIDs: 2.6 cm LVPWd: 0.85 cm FS: 31.5 % Ao root diam: 2.8 cmEDV(Teich): 63.5 mlESV(Teich): 25.3 ml Ao root area: 6.2 cm2EF(Teich): 60.1 % LA dimension: 2.8 cm LVOT diam: 1.8 cm LVOT area: 2.6 cm2 Doppler Measurements CalculationsMV E max joana: 6 2.5 cm/sec MV dec slope: 224.9 cm/sec2MV A max joana: 75.8 cm /sec MV dec time: 0.28 secMV E/A: 0.82 Ao V2 max: 93.6 cm/sec LV V1 max P.0 mmHgAo max P.5 mmHg LV V1 mean P.4 mmHgA o V2 mean: 62.3 cm/sec LV V1 max: 86.6 cm/secAo mean P. 8 mmHg LV V1 mean: 54.4 cm/secAo V2 VTI: 17.4 cm LV V1 VTI : 16.5 cmAVA(I,D): 2.5 cm2 BRITTANIE(V,D): 2.4 cm2 MR max joana: 483.1 cm/sec SV(L VOT): 43.1 mlMR max P.4 mmHg PA V2 max: 63.6 cm/sec TR max joana: 192.8 cm/secPA max P.6 mmHg TR max P.5 mmHg RVSP(TR): 29.5 mmHg RAP systole: 10.0 mmHg RVSP.: 25.3 mmHg Interpretation SummaryThere is normal left ventr icular wall thickness.Ejection Fraction = 55-60%.The transmi tral spectral Doppler flow pattern is suggestive of i mpaired LVrelaxation.The mitral valve leaflets appear th ickened, but open well.There is trace tricuspid regurgita tion.There is no pericardial effusion. [facility] [address] [facility] [address] PATIENT NAME: LIZZIE HINKLE 4 The right ventricular systolic function is normal.There is mild mitral regurgitation.The aortic valve is mild to moderately calcified. Electronically read by:Andreina Oliva MD 08/09/2021 03:18 PMOrdering Physician: Bebo Oliva Physician: Winter Holguin By: Ric Donald at [address] [facility] [address] [facility] [address] PATIENT NAME: LIZZIE HINKLE :19: [id number] for patient [id number]:19:34 2021-08-08 [id number]:30:00 [facility] 11:30:00 [place] [facility]Hospitalist Progress Note REPORT # : [id number] REPORT STATUS: Signed DATE: 08/08/21 TIME: 1130 PATIENT: LIZZIE HINKLE UNIT #: [id number] #: [id number] ROOM #: NC.101 BED: 1 : 52 AGE: 71 SEX: F ATTEND: Parish Rudolph MD ADM AUTHOR: Ashleigh Hayes ATTENTION EDITS and/or ADDENDA must be made i n Patient Keeper for this note. Edits and ammendments c reated in [facility] are not visible in Patient Keeper or the legal medical record (HPF). -- ASSESSMENT AND PLAN -- GENERAL ASSESSMENT:Type 1 DM with ketoacidosis, uncontrolledMetabolic acidosis 2/2 above - resol simi- A1c >14.0- s/p insulin gtt in ED- Lantus, Humalog SS I- BG checks ac/hs, hypoglycemia protocol- Endocrinolo gy on board; recs appreciated- Sider consulted for DM education NSTEMITriple vessel CADPAD of BLE- Den ies chest pain- Trop trend noted- f/u TTE- Heparin gtt- Re sume home ASA, Plavix, BB, Zetia- Cardiology on board; rec s appreciated- Reviewed previous charts and d/w Dr Duncan Oliva. Pt had LHC in 09/2020 thatshowed 3v CAD. Aortoco ronary bypass was recommended as outpt after improvedgl ycemic control and medical compliance per CTS. However, pt declined invasiveprocedures and opted for medica l mgmt during her outpt f/u appts withCardiology. Today , pt again declined any procedures and also has not beencom pliant with meds d/t visual impairment. Counseled on risks a nd pt expressedunderstanding. ADOLFO likely prerenal in s etting of DKA- Last known Cr 0.9-1.0 (09/2020); may have p ossible CKD as well from DMnephropathy- Cr 1.5 on presentati on -> improving- Continue IVF- Monitor renal function/ I O, avoid nephrotoxic agents, renally dose meds Hyponatrem ia - improving- Continue IVF- Trend BMP HTN- Resume h ome BB, Imdur, Ranexa- PRN IV Hydralazine HLD- Resume ho me Zetia Physical deconditioningLegally blind in both eye s- PT/OT- Fall precautions; supportive care- Pt has diffic ulty with med compliance d/t visual impairment. CM consult ed for skilled nurse to assist. CONSULTANTS:Critical Ca re MedicineCardiologyEndocrinology ADDITIONAL COMME NTS:DVT PPx: Heparin gttCODE STATUS: FullPlan: d/w pt, fady benavidez RN, Dr. Torres: Pending hospital course -- SUBJ ECTIVE -- PATIENT NARRATIVE:Events reviewed.Downgraded to IMCU as AG closed and off insulin gtt.Pt seen and examined eating breakfast this AM. In NAD. at bedside.Pt states she's feeling fine. Denies any chest pain, SOB, abd pain, N/V/D, orany other complaints.Pt reports she's l egally blind and lives at home w/ her , but he's nothome constantly w/ her, so she misses taking her meds including insulin. Theyhave been looking for home health nurse/caregiver to assist with this.Consulted CM .Evaluated and d/w Cardiology Dr. Oliva at bedside. -- OBJ ECTIVE -- VITALS (08/07 14:31 - 08/08 14:31):Temperature F : 98.3Temperature C: 36.4 (36.4 - 36.5)Temperatur e source: OralPulse Rate 81 (72 - 96)Respiratory rate: 12 (12 - 20)BP: 122/67 (101/63 - 150/87) -EXAM- OTHER: Ge neral: Chronically ill-appearing, thin, and elderly fem connor in NAD. Head: Normocephalic, atraumatic. Eyes: Legally b bashir. Ears: grossly normal hearing. Nose: No deformity, no d ischarge, no inflammation, no lesions. Mouth: Oropharynx w ithout deformities or lesions, normal mucosa.. Neck: Landin pple. Chest: Grossly normal appearance. Lungs: Clear bilaterally with normal respiratory effort. Heart: Regular r ate and rhythm. Abdomen: Soft, non-tender. Musculoskele terra: No deformity, joint ROM grossly normal. Extremities : No clubbing, no cyanosis, no edema. Neurological: No focal deficits. Pulses: Pulses normal in all extremiti es. Skin: Warm, dry. Psychiatric: Alert and oriented to ti me, person, place. Normal mood and affect, intact judgment a nd insight. -- DATA -- MEDICATIONS PYRIDOXINE HCL 50 MG PO D AILYSODIUM PHOSPHATE with/in SODIUM CHLORIDE 0.9% 20 MM IV ASDIR (PRN)HEPARIN SODIUM,PORCINE/D5W 13813 UNIT IV TITRATEGLUCAGON 1 MG IM ASDIRACETAMINOPHEN 650 M G PO Q6H PRNguaiFENesin 100 MG PO Q4H PRNONDANSETRON HCL/ PF 4 MG IV Q6H PRNMELATONIN 3 MG PO BEDTIME PRNCYANOCOBALAM IN 1000 MCG PO DAILYASPIRIN 81 MG PO DAILYhydrALAZINE HCL 10 MG IV Q6H PRNRANOLAZINE 1000 MG PO [id number] SUCCINA TE 25 MG PO DAILYISOSORBIDE MONONITRATE 30 MG PO DAILYDEXTRO SE 50%-WATER 50 ML IV ASDIREZETIMIBE 10 MG PO DAILY clopidogreL 75 MG PO DAILYSODIUM PHOSPHATE with/in SODIUM CH LORIDE 0.9% 15 MM IV ASDIR (PRN)MAGNESIUM 1 GM IV Q1H (PRN)M AGNESIUM 1 GM IV Q1H (PRN)SOD BIPHOS/POT PHOSPHATE 1 PKT PO ASDIR (PRN)MUPIROCIN 1 APPLIC NASAL BIDMAGNESIUM 1 GM IV ASDIR (PRN)SENNA/DOCUSATE SODIUM 1 TAB PO BID PRNpolye thylene glycoL 3350 1 PKT PO DAILY PRNPOTASSIUM BICARBON ATE/CIT AC 20 MEQ PO ASDIR PRNINSULIN LISPRO 0 UNITS SUBQ A C HSINSULIN GLARGINE 18 UNITS SUBQ 0800INSULIN GLARGINE 24 U NITS SUBQ ONCEINSULIN REGULAR, HUMAN with/in SODIUM CHLORI DE 100 mL BAG 100 UNIT IV ASDIRSODIUM PHOSPHATE with/in SO DIUM CHLORIDE 0.9% 30 MM IV ASDIR (PRN)SODIUM CHLORID E 0.45% 1000 ML IV ASDIRFOLIC ACID 3 MG PO DAILYSODIUM C HLORIDE 0.9% 1000 ML IV ASDIRDEXTROSE 5%-0.45% SALINE 10 00 ML IV ASDIR LABS GLU BED (08/08/21 13:51)GLUBED 258 H LACTIC ACID (08/08/21 11:35)LACTIC ACID 0.6 TROP-I HIGH SEN (08/08/21 11:35)TROP-I HIGH SENSITIVITY 6983 *H PHOS (07/30 11:35)PHOSPHOROUS 2.8 BASIC METABOLIC PANEL (02/19 11:35)SODIUM 135POTASSIUM 4.1CHLORIDE 104CARBON DIOXIDE 25ANION GAP 10.1GLUCOSE 110H HBLOOD UREA NITROG EN 24H HGLOMERULAR FILTRATION RATE 57 LCREATININE 1.2BUN/CREATININE RATIO 20.0CALCIUM 9.2 GLU BED (08/08/21 11:11)GLUBED 80 GLU BED (08/08/21 07:42)GLUBED 1 38 H PTT (08/08/21 05:10)THROMBOPLASTIN TIME PARTIAL 26.4 GLU BED (08/08/21 05:01)GLUBED 113 H TROP-I HIGH SEN ( 05:00)TROP-I HIGH SENSITIVITY 7687 *H K ( 2 05:00)POTASSIUM 3.7 BNP (08/08/21 02:51)B-TYPE NATRIURETIC PEPTIDE 159 H GLU BED (08/08/21 02:43)GLUBED 192 H MAG (08/08/21 02:34)MAGNESIUM 2.0 LIPID PROFILE (COR ONARY RISK) (08/08/21 02:34)TRIGLYCERIDES 172 HCHOLESTEROL 3 24 HCHOLESTEROL/HDL RATIO 4HDL CHOLESTEROL 76 H LIP OPROTEIN LDL 198 H PHOS (08/08/21 02:34)PHOSPHOROUS 2.9 C BC W/AUTO DIFF (08/08/21 02:34)WHITE BLOOD CELL 6.5RED BLO OD CELL 3.60HEMOGLOBIN 11.0L LHEMATOCRIT 32.1L LMEAN CE LL VOLUME 89MEAN CELL HGB 30.6MEAN CELL HGB CONCENTRATION 34.3RED CELL DISTRIBUTION WIDTH 13.2PLATELET COUNT 260ME AN PLATELET VOLUME 11.2NEUTROPHIL % 59.2IMMATURE GRANULOCYTE % 0.5LYMPHOCYTE % 29.9MONOCYTE % 8.4EOSINOPHIL % 1.4BASOPHIL % 0.6NUCLEATED RBC % 0.0NEUTROPHIL # 3.87IMMATUR E GRANULOCYTE # 0.030LYMPHOCYTE # 1.95MONOCYTE # 0.55EOSINOPHIL # 0.09BASOPHIL # 0.04NUCLEATED RB C # 0.000 OSMO (08/08/21 02:34)OSMOLALITY SERUM 307 H BASI C METABOLIC PANEL (08/08/21 02:34)SODIUM 136POTASSIUM 3.6CHL ORIDE 103CARBON DIOXIDE 25ANION GAP 11.6GLUCOSE 213H H BLOOD UREA NITROGEN 24H HGLOMERULAR FILTRATION RATE 52 LCRE ATININE 1.3BUN/CREATININE RATIO 18.5CALCIUM 9.0 ACETONE BL (08/08/21 02:34)ACETONE BLOOD NEGATIVE GLU BED ( 08/08/21 01:23)GLUBED 242 H BASIC METABOLIC PANEL (08/08 00:33)SODIUM 135POTASSIUM 4.0CHLORIDE 101CARBON DIOXIDE 27ANION GAP 11.0 DGLUCOSE 294H H BLOOD UREA NIT ROGEN 26H HGLOMERULAR FILTRATION RATE 41 LCREATININE 1.6H HBUN/CREATININE RATIO 16.3CALCIUM 9.1 PHOS (02/19 00:33)PHOSPHOROUS 3.4 GLU BED (08/08/21 00:17)GL UBED 288 H GLU BED (08/07/21 23:38)GLUBED 298 H GLU BED ( 22:48)GLUBED 327 H GLU BED (08/07/21 22:33)GLUBE D 360 H ARTERIAL BLOOD GAS (08/07/21 21:36)ARTERIAL BLOO D GAS PH 7.292 LARTERIAL BLOOD GAS PCO2 38.7ARTERIAL BLOO D GAS PO2 95.4BICARBONATE TOTAL HCO3 18.3 LBASE EXCESS -7. 7 LABG O2 SATURATION 97.2ABG TYPE ArterialARTERIAL FIO2 21 .0PaO2/FiO2 454.20ABG VENT MODE Room AirALLENS TEST YesTOTA L HGB 11.2 LTCO2 ARTERIAL 19.5 GLU BED (08/07/21 21:07)GLUB ED 392 H OSMO (08/07/21 21:07)OSMOLALITY SERUM 322 H COV ID 19 INH AG (08/07/21 20:20)COVID 19 INHOUSE AG NEGATIVE UA RFLX MICR amp;CULT IF INDICATED (08/07/21 19:55)UA CO JOHANN STRAWUA APPEARANCE CLEARUA GLUCOSE DIPSTICK 3+ NATHALIE BILI PITTMAN DIPSTICK NEGATIVEUA KETONE DIPSTICK 2+ NATHALIE SPECI FIC GRAVITY 1.022UA BLOOD DIPSTICK NEGATIVEUA PH DIPSTICK 5. 0UA PROTEIN DIPSTICK NEGATIVEUA UROBILINOGEN DIPSTICK NEGATI VEUA NITRITE DIPSTICK NEGATIVEUA LEUKOCYTE ESTERASE D IPSTICK NEGATIVEUA MICROSCOPIC NEEDED? NOUA WBC NONE SEE N UA RBC 0-2UA BACTERIA NONE SEENUA SQUAMOUS CELLS RAREUA MUCUS OCCASIONAL GLU BED (08/07/21 19:34)GLUBED 551 *H HGBA1C - GLYCOSYLATED HGB (08/07/21 19:21)GLYCOSYLATED HE MOGLOBIN (HA1C) > 14.0 H TROP-I HIGH SEN (08/07/21 19:10) TROP-I HIGH SENSITIVITY 2095 *H LIVER FUNCTION PANEL ( 19:10)TOTAL PROTEIN 8.1ALBUMIN 4.0GLOBULIN 4.1 H BILIRUBIN TOTAL 0.6BILIRUBIN DIRECT 0.2BILIRUBIN INDIRECT 0.4SGOT/AST 29SGPT/ALT 25ALKALINE PHOSPHATASE 114 PTT ( 01/20 19:10)THROMBOPLASTIN TIME PARTIAL 34.0 PROTHROMB IN TIME (08/07/21 19:10)PROTHROMBIN TIME PATIENT 10.0INT ERNATIONAL NORMAL RATIO 0.9 ACETNQL (08/07/21 19:10)ACETONE QUAL LARGE H CK (08/07/21 19:10)CREATINE KINASE (CK) 197 CB C W/O DIFF (08/07/21 19:10)WHITE BLOOD CELL 5.6RED BLOOD CE LL 3.98HEMOGLOBIN 12.3HEMATOCRIT 36.2L LMEAN CELL V OLUME 91MEAN CELL HGB 30.9MEAN CELL HGB CONCENTRATION 34.0RED CELL DISTRIBUTION WIDTH 13.2PLATELET COUNT 262 A MY (08/07/21 19:10)AMYLASE 39 BASIC METABOLIC PANEL (08/07/21 19:10)SODIUM 129L LPOTASSIUM 4.8CHLORIDE 93L LCA RBON DIOXIDE 19L LANION GAP 21.8 HGLUCOSE 617*H *HBLO OD UREA NITROGEN 27H H GLOMERULAR FILTRATION RATE 44 LC REATININE 1.5BUN/CREATININE RATIO 18.0CALCIUM 9.8 PHOS ( 19:10)PHOSPHOROUS 4.7 OSMO (08/07/21 19:10)OSMO LALITY SERUM 319 H -- QUALITY -- -MEDICATIONS- - I atte st that the foregoing medication list in the medical record is true,accurate, and complete to the best of my kn owledge. -ADVANCED CARE PLAN >65- PATIENT HAS AN ADVANCE CARE PLAN:Yes PATIENT HAS A SURROGATE DECISION MAKER: Yes -VTE PROPHYLAXIS -GENERAL- Yes TYPE OF VTEHeparin -- ATTESTATION -- TIME SPENT ON PATIENT CARE: - Direct 35 minut es - > 50% of time spent on Counseling/Care Coordination CA RE ACTIVITIES / CARE COORDINATION: - I have reviewe d the history and repeated the ingram elements - I have s een and examined this patient - I have reviewed the prog ress in the clinical course since the lastexamination - I reeves ve discussed the patient's condition with other mem bers of the care team Signed in PatientKeeper by Aisha Hayes on 08/08/21 at 15:43 Cosigned by FAIZA SHERMAN MD 08/08/21 at 23:36 at 2336 at 2336ATTENTION EDITS and/or ADDENDA must be ma de in Patient Keeper for this note. Edits and ammen dments created in [employer] are not visible in Patien t Keeper or the legal medical record (HPF). RPT #: [id number] OF REPORT PRProgress [id number]:[id number] Available for patient [id number]:37:2 6 2021-08-08 [id number]:02:00 [facility] 11:02:00 [place] [facility])Endocrinology Consultation REPORT #: [id number] REPORT STATUS: Signed DATE: 08/08/21 T EDUARDO: 1102 PATIENT: LIZZIE HINKLE UNIT #: [id number] CCOUNT #: [id number] ROOM #: NC.107 BED: 1 : 3 AGE: 71 SEX: F ATTEND: Parish Rudolph MD ADM AUTHOR: Nini Doan MD ATTENTION EDITS and/or ADDENDA must be made i n Patient Keeper for this note. Edits and ammendments c reated in [facility] are not visible in Patient Keeper or the legal medical record (HPF). -- ASSESSMENT AND PLAN -- PROBLEMS : 1: Type 1 diabetes mellitus with ketoacidosis, uncontrolle dA/P: UNCONTROLLED (HGBA1C=>14.0%,HYPERGLYCEMIA) TYPE I DM IN DKA. DKA RESOLVED:PVW=299 HS LLRFXNH=565 AG=11.6 . OBSERVE ON SQ BASAL/BOLUS INSULIN. MUST HAVE ABEDTIME SN ACK. THANK YOU. WILL FOLLOW WITH YOU. -- HISTORY -- CONSULT REQUESTED BY:PARISH RUDOLPH REASON FOR CONSULT:HYPERGLYCEMIA C HIEF COMPLAINT:HYPERGLYCEMIA HPI:PATIENT ADMITTED WT DKA. NOW OFF INSULIN DRIP. DENIES NAUSEA, VOMITING ORABDO GABBY PAIN. HUNGRY: WANTS TO EAT. SHE HAS KNOWN TYPE I DM ON BASAL/BOLUSINSULIN. PAST MEDICAL HISTORY:T1DM PA ST SURGICAL HISTORY:As noted above FAMILY HISTORY:reviewed a nd noncontributory for this Admission -SOCIAL HISTO RY- -TOBACCO USE- DETAILS/COMMENTS:reviewed and nonc ontributory for this Admission -VAPING/INHALED SOLVENTS- DETAILS/COMMENTS:reviewed and noncontributory fo r this Admission -ALCOHOL USE- DETAILS/COMMENTS:reviewe d and noncontributory for this Admission -DRUG USE- DETAILS/COMMENTS:reviewed and noncontributory fo r this Admission -- ALLERGIES/HOME MEDS -- ALLERGIES:co deine (Unknown - Allergy)lisinopril (Severe - Allergy) HOME MEDICATIONS:Aspirin Chewable Tab (Aspirin Chewab le Tab) 81 MG PO DAILYClopidogrel Tab (Plavix Tab) 75 MG PO DAILYEzetimibe Tab (Zetia Tab) 10 MG PO DAILYFol bee 2.5 mg-25 mg-1 mg tablet (folic acid-vit B6-vit B12) 1 TAB PO DAILYIsosorbide Mononitrate ER Tab (Imdur Tab) 3 0 MG PO DAILYMetoprolol Succinate XL Tab (Toprol XL Tab) 25 MG PO DAILYRanexa tablet,extended release (ranolazine) 1000 MG PO BID HOME MEDICATIONS COMMENTS:BASAL/BOLUS INSULI N -- SUBJECTIVE -- -REVIEW OF SYSTEMS- GENERAL: Negat mirtha for fever, malaise, fatigue.RESPIRATORY: Negative fo r dyspneaCARDIOVASCULAR: Negative for palpitations.GASTROINTESTINAL: Negative for abdo gabby pain or nauseaENDOCRINE: Negative for polyphagia, peter ydipsia, polyuria -- OBJECTIVE -- VITALS (08/07 11:02 - 0 08/08 11:02):Temperature F: 98.3Temperature C: 36.5Tem perature source: OralPulse Rate 72 (72 - 96)Respiratory r ate: 15 (12 - 20)BP: 150/83 (101/63 - 150/87) -EXAM- GENERAL : Well developed, well nourished, in no apparent distre ss, THINHEAD: Normocephalic, atraumatic.EYES: LEGALL Y BLINDNECK: trachea midline.CHEST: Grossly shannan l appearance.LUNGS: NORMAL CHEST WALL MOVEMENT HEA RT: NO TACHYCARDIAABDOMEN: NON-DISTENDEDNEUROLOGICAL: N ORMAL SPEECHPSYCHIATRIC: Alert and oriented to time, p erson, place. -- DATA -- MEDICATIONS PYRIDOXINE HCL 50 MG PO DAILYSODIUM PHOSPHATE with/in SODIUM CHLORIDE 0. 9% 20 MM IV ASDIR (PRN)HEPARIN SODIUM,PORCINE/D5W 83932 UNIT IV TITRATEGLUCAGON 1 MG IM ASDIRACETAMINOPHEN 650 M G PO Q6H PRNguaiFENesin 100 MG PO Q4H PRNONDANSETRON HCL/ PF 4 MG IV Q6H PRNMELATONIN 3 MG PO BEDTIME PRNCYANOCOBALAM IN 1000 MCG PO DAILYASPIRIN 81 MG PO DAILYhydrALAZINE HCL 10 MG IV Q6H PRNRANOLAZINE 1000 MG PO [id number] SUCCINA TE 25 MG PO DAILYISOSORBIDE MONONITRATE 30 MG PO DAILYDEXTRO SE 50%-WATER 50 ML IV ASDIREZETIMIBE 10 MG PO DAILY clopidogreL 75 MG PO DAILYSODIUM PHOSPHATE with/in SODIUM CH LORIDE 0.9% 15 MM IV ASDIR (PRN)MAGNESIUM 1 GM IV Q1H (PRN)M AGNESIUM 1 GM IV Q1H (PRN)SOD BIPHOS/POT PHOSPHATE 1 PKT PO ASDIR (PRN)MUPIROCIN 1 APPLIC NASAL BIDMAGNESIUM 1 GM IV ASDIR (PRN)SENNA/DOCUSATE SODIUM 1 TAB PO BID PRNpolye thylene glycoL 3350 1 PKT PO DAILY PRNPOTASSIUM BICARBON ATE/CIT AC 20 MEQ PO ASDIR PRNINSULIN LISPRO 0 UNITS SUBQ A C HSINSULIN GLARGINE 18 UNITS SUBQ 0800INSULIN REGULAR, SARA N with/in SODIUM CHLORIDE 100 mL BAG 100 UNIT IV ASDIRSODI UM PHOSPHATE with/in SODIUM CHLORIDE 0.9% 30 MM IV ASDIR (PRN)SODIUM CHLORIDE 0.45% 1000 ML IV ASDIRFOLIC ACID 3 MG PO DAILYSODIUM CHLORIDE 0.9% 1000 ML IV ASDIRDEX TROSE 5%-0.45% SALINE 1000 ML IV ASDIR LABS GLU BED (0 08/08/21 07:42)GLUBED 138 H PTT (08/08/21 05:10)THROMBOPL ASTIN TIME PARTIAL 26.4 GLU BED (08/08/21 05:01)GLUBED 113 H TROP-I HIGH SEN (08/08/21 05:00)TROP-I HIGH SENSITIVITY 7687 *H K (08/08/21 05:00)POTASSIUM 3.7 BNP (08/08/21 02:5 1)B-TYPE NATRIURETIC PEPTIDE 159 H GLU BED (08/08/21 02:4 3)GLUBED 192 H MAG (08/08/21 02:34)MAGNESIUM 2.0 LIPID IA OFILE (CORONARY RISK) (08/08/21 02:34)TRIGLYCERIDES 17 2 HCHOLESTEROL 324 HCHOLESTEROL/HDL RATIO 4HDL CHO LESTEROL 76 HLIPOPROTEIN LDL 198 H PHOS (08/08/21 02:34)PHOS PHOROUS 2.9 CBC W/AUTO DIFF (08/08/21 02:34)WHITE BLOOD CELL 6.5RED BLOOD CELL 3.60HEMOGLOBIN 11.0L LHEMATOCRIT 32.1 L LMEAN CELL VOLUME 89MEAN CELL HGB 30.6MEAN CELL HGB CO NCENTRATION 34.3RED CELL DISTRIBUTION WIDTH 13.2PLATELET COU NT 260MEAN PLATELET VOLUME 11.2NEUTROPHIL % 59.2IMMATURE GR ANULOCYTE % 0.5LYMPHOCYTE % 29.9MONOCYTE % 8.4EOSINOPHIL % 1 .4BASOPHIL % 0.6NUCLEATED RBC % 0.0NEUTROPHIL # 3.87IMMATU RE GRANULOCYTE # 0.030LYMPHOCYTE # 1.95MONOCYTE # 0.55EOSINOPHIL # 0.09BASOPHIL # 0.04NUCLEATED RB C # 0.000 OSMO (08/08/21 02:34)OSMOLALITY SERUM 307 H BASI C METABOLIC PANEL (08/08/21 02:34)SODIUM 136POTASSIUM 3.6CHL ORIDE 103CARBON DIOXIDE 25ANION GAP 11.6GLUCOSE 213H HBLOOD UREA NITROGEN 24H HGLOMERULAR FILTRATION RATE 52 LCRE ATININE 1.3BUN/CREATININE RATIO 18.5 CALCIUM 9.0 ACETONE BL (08/08/21 02:34)ACETONE BLOOD NEGATIVE GLU BED ( 08/08/21 01:23)GLUBED 242 H BASIC METABOLIC PANEL ( 00:33)SODIUM 135POTASSIUM 4.0CHLORIDE 101CARBON DIOXIDE 27ANION GAP 11.0 DGLUCOSE 294H HBLOOD UREA NITRO GEN 26H HGLOMERULAR FILTRATION RATE 41 LCREATININE 1.6H HBUN/CREATININE RATIO 16.3CALCIUM 9.1 PHOS (07/30 00:33)PHOSPHOROUS 3.4 GLU BED (08/08/21 00:17)GL UBED 288 H GLU BED (08/07/21 23:38)GLUBED 298 H GLU BED ( 22:48)GLUBED 327 H GLU BED (08/07/21 22:33)GLUB ED 360 H ARTERIAL BLOOD GAS (08/07/21 21:36)ARTERIAL BLOO D GAS PH 7.292 LARTERIAL BLOOD GAS PCO2 38.7ARTERIAL BLOO D GAS PO2 95.4BICARBONATE TOTAL HCO3 18.3 LBASE EXCESS -7. 7 LABG O2 SATURATION 97.2ABG TYPE ArterialARTERIAL FIO2 21 .0PaO2/FiO2 454.20ABG VENT MODE Room AirALLENS TEST YesTOTAL HGB 11.2 LTCO2 ARTERIAL 19.5 GLU BED (08/07/21 21:07)GLU BED 392 H OSMO (08/07/21 21:07)OSMOLALITY SERUM 322 H COVI D 19 INH AG (08/07/21 20:20)COVID 19 INHOUSE AG NEGATIVE UA RFLX MICR amp;CULT IF INDICATED (08/07/21 19:55)UA COLOR S TRAWUA APPEARANCE CLEARUA GLUCOSE DIPSTICK 3+ NATHALIE BILIR UBIN DIPSTICK NEGATIVEUA KETONE DIPSTICK 2+ NATHALIE SPECI FIC GRAVITY 1.022UA BLOOD DIPSTICK NEGATIVEUA PH DIPSTICK 5. 0UA PROTEIN DIPSTICK NEGATIVEUA UROBILINOGEN DIPSTICK NEGATI VEUA NITRITE DIPSTICK NEGATIVEUA LEUKOCYTE ESTERASE D IPSTICK NEGATIVEUA MICROSCOPIC NEEDED? NOUA WBC NONE SEE NUA RBC 0-2UA BACTERIA NONE SEENUA SQUAMOUS CELLS RAREUA MUCUS OCCASIONAL GLU BED (08/07/21 19:34)GLUBED 551 * H HGBA1C - GLYCOSYLATED HGB (08/07/21 19:21)GLYCOSYLATED HE MOGLOBIN (HA1C) > 14.0 H TROP-I HIGH SEN (08/07/21 19:10) TROP-I HIGH SENSITIVITY 2095 *H LIVER FUNCTION PANEL ( 19:10)TOTAL PROTEIN 8.1ALBUMIN 4.0GLOBULIN 4.1 H BILIRUBIN TOTAL 0.6BILIRUBIN DIRECT 0.2BILIRUBIN INDIRECT 0.4SGOT/AST 29SGPT/ALT 25ALKALINE PHOSPHATASE 114 PTT (08/07 19:10)THROMBOPLASTIN TIME PARTIAL 34.0 PROTHROMB IN TIME (08/07/21 19:10)PROTHROMBIN TIME PATIENT 10.0INT ERNATIONAL NORMAL RATIO 0.9 ACETNQL (08/07/21 19:10)ACETONE QUAL LARGE H CK (08/07/21 19:10)CREATINE KINASE (CK) 197 CB C W/O DIFF (08/07/21 19:10)WHITE BLOOD CELL 5.6RED BLOOD CE LL 3.98HEMOGLOBIN 12.3HEMATOCRIT 36.2L LMEAN CELL V OLUME 91MEAN CELL HGB 30.9 MEAN CELL HGB CONCENTRATION 34.0RED CELL DISTRIBUTION WIDTH 13.2PLATELET COUNT 262 A MY (08/07/21 19:10)AMYLASE 39 BASIC METABOLIC PANEL (08/07/21 19:10)SODIUM 129L LPOTASSIUM 4.8CHLORIDE 93L LCA RBON DIOXIDE 19L LANION GAP 21.8 HGLUCOSE 617*H *HBLO OD UREA NITROGEN 27H HGLOMERULAR FILTRATION RATE 44 LCRE ATININE 1.5BUN/CREATININE RATIO 18.0CALCIUM 9.8 PHOS ( 19:10)PHOSPHOROUS 4.7 OSMO (08/07/21 19:10)OSMOL ALITY SERUM 319 H -- ATTESTATION -- TIME SPENT ON PATIENT CA RE: - Direct 35 minutes CARE ACTIVITIES / CARE COORDIN ATION: - I have reviewed the history and repeated the ingram e lements - I have seen and examined this patient - I have dis cussed the patient's condition with other members of the ca re team ADDITIONAL DETAIL:I HAVE SPENT >35 MINUTES IN TH E EVALUATION AND TREATMENT OF THIS PATIENT. Signed in PatientKeeper by Nini Doan MD on 02/19 at 11:09 at 1109ATTENTION EDITS and/or ADDENDA must be ma de in Patient Keeper for this note. Edits and ammen dments created in [facility] are not visible in Patien t Keeper or the legal medical record ([facility]). RPT #: [id number] OF [id number]:02:00NC.PK- [id number] for patient [id number]:10:01 2021-08-08 [id number]:30:00 [facility] 09:30:00 [place] [facility]Med Order Sheet REPORT #: [id number] REPORT STATUS: Signed DATE: 08/08/21 TIME: 929 PATIENT : LIZZIE HINKLE UNIT #: [id number] #: [id number] ROOM #: NC.[id number] BED: 1 : 52 AGE: 71 SEX: F ATTEND: Parish Rudolph MD [facility] AUTHOR: Ashleigh Hayes ATTENTION EDITS and/or ADDENDA must be made i n Patient Keeper for this note. Edits and ammendments c reated in [facility] are not visible in Patient Keeper or the legal medical record ([facility]). Admission Medication Reconciliatio n -- CONTINUED / CHANGED HOME MEDICATIONS -- Home: As pirin Chewable Tab (Aspirin Chewable Tab) 81 MG PO [facility] LYHosp: Existing: Aspirin Chewable Tab (Aspirin Chewable Tab) 81MG PO DAILY Home: Clopidogrel Tab (Plavix Tab) 75 M G PO DAILYHosp: Existing: Clopidogrel Tab (Plavix Tab ) 75MG PO DAILY Home: Ezetimibe Tab (Zetia Tab) 10 MG PO D AILYHosp: Existing: Ezetimibe Tab (Zetia Tab) 10MG PO WILMAN Y Home: Folbee 2.5 mg-25 mg-1 mg tablet (folic acid-vit B6-vit B12) 1 TAB PODAILYHosp: Folbee 2.5 mg-25 mg-1 mg tabl et (folic acid-vit B6-vit B12) 1 TAB PODAILY Home: Isosorb lan Mononitrate ER Tab (Imdur Tab) 30 MG PO DAILYHos p: Existing: Isosorbide Mononitrate ER Tab (Imdur T ab) 30MG PO DAILY Home: Metoprolol Succinate XL Tab (Toprol XL Tab) 25 MG PO DAILYHosp: Existing: Metoprolol Succinate XL Tab (Toprol XL Tab) 25MG PO DAILY Home: Ranexa table t,extended release (ranolazine) 1000 MG PO BIDHosp: Existin g: Ranolazine ER Tab (Ranexa Tab) 1000MG PO Q12HR at 0930ATTENTION EDITS and/or ADDENDA must be ma de in Patient Keeper for this note. Edits and ammen dments created in [facility] are not visible in Patien t Keeper or the legal medical record (HPF). [facility] #: [id number] OF REPORT CLClinical [id number]:[id number] Available for patient [id number]:30:5 8 2021-08-08 [id number] [facility] 01:13:00 [place] ([facility])Cardiology Consultation REPORT #: [id number] REPORT STATUS: Signed DATE: 08/08/21 TIME: 0113 PATIENT: LIZZIE HINKLE UNIT #: [id number] #: [id number] ROOM #: NC.101 BED: 1 : 52 AGE: 71 SEX: F ATTEND: Parish Rudolph MD ADM AUTHOR: Andreina Oliva MD ATTENTION EDITS and/or ADDENDA must be made i n Patient Keeper for this note. Edits and ammendments c reated in [facility] are not visible in Patient Keeper or the legal medical record (HPF). -- ASSESSMENT AND PLAN -- PROBLEMS : 1: NSTEMI (non-ST elevated myocardial infarction)A/P: - EC G - SR, rate 84, no ischemic changes- Tn 2095 --> 7687; continue to trend- she has uncontrolled DM thus can be asymp tomatic for that reason- rec empiric treatment for NSTEMI wi th heparin gtt for 48 hours- TTE 04/08/21 - EF 50-55%, no WM As- driven by secondary phenomenon (DKA/ADOLFO); denies any CP or SOB- c/w ASA 81 mg QD, plavix 75 mg QD, toprol 25 mg QD, imdur 30, ranexa 1000 BID- not on statin due to severe myalgias, on zetia- Given her NSTEMI, I discussed the opti ons of CABG vs. PCI vs. medical therapywith the patient and her Yon. I explained to her that she is highrisk for procedure and surgery related complications give n her inconsistentmedication intake and uncontrolled D M. I advised her that risks of CABG caninclude a seri ous sternotomy wound infection and poor wound healin g in thesetting of DM. She is also not an ideal dyan date for PCI given she cannotreliably take dual antiplate let therapy and has uncontrolled DM which would puther at hi gh risk for in-stent restenosis/thrombosis which would be fa terra. Giventhat she is asymptomatic, stable, would jose alejandro at with medical therapy for NSTEMIwith DAPT, therapeutic AC- the patient clearly stated that he puts medications in front of her to takeand she refuses to take them 2: CAD ( coronary artery disease)A/P: - [facility] 10/19: RCA mid 100% wit h lt-to-rt collater ,CX mid 60-70%, MOM prox8-0%, LAD prox and mid two consecutive 60-70% stenoses with near-significan tFFR of 0.81, D2 ostial 70% then prox 80% sten, edp 3 -- > eval for 4v acb tolad, d2, mom, and distal RCA --> Dr Christopher diaz need for ACB yet he wishes towait and do it on O P basis once a1c is lower and once compliance is documen sarah beth- DKA/NSTEMI adm 04/20; family opted for medical m anagement- readmit for DKA/NSTEMI yet CP free- asp, plavix, lipitor, toprol, imdur, ranexa- check echo- TTE 04/08/21 - EF 50-55%, no WMA 3: DKA (diabetic ketoacidoses)A/P: - A1C >14.0% 08/20- strict glycemic control- mxm per endo/prim amador- compliance encouraged - c/w insulin 4: acute salvador al failureA/P: ac d/t dehydration/DKAnephro evalmon itor BMPavoid nephrotoxinsCr 1.6 --> 1.3 5: PADA/P: - 80% sten ostial rt SFA on lted groin angio with [facility] 10/19- laus 10/19: Change from triphasic to monophasic waveforms in the right femoralartery and at the left lower leg below th e popliteal artery suggesting stenosis.-rec RO and poss well logging captain mud analysis in the future once compliance confirmed and improvement [id number], plav, better BS ctrl-avoid low BP 6: Statin into leranceA/P: - severe myalgias on lipitor- on zetia 7: Noncom plianceA/P: - encouraged compliance with meds -- HISTORY -- REASON FOR CONSULT:NSTEMI HPI:Ms. Hinkle is a 71 yo F who p resented to the hospital with c/o high bloodsugar. Patient s tates she also feels weak and has polyuria. Patient denies anyfever, chills, chest pain, shortness of breath. Patient states her sugar hasbeen over 600 for the last couple of da ys. Patient states that she has been int hospital for DKA many times in the past. Cardiology was consulted forelevate d troponin. ECG showed SR, rate 87, no ischemic changes. Tn 2095 -->7687. A1C >14.0%, LDL 198. In the past she re ported intermittent chest burningbut currently asymptom tic. She has a hx of non-compliance. She was admitted on1 06/07/20 after c/o NV, lethargy and has baseline blindnes s/memory loss issues.She was Dx with DKA and sepsis 2/2 U TI/PNA. Her A1C is 13.7% at the time. Perpatient, she has reeves d inconsistent medication intake as she cannot see and herhusband is not always there to give her medic ations. Per , he putsmedications in front of her and asks her to take them in front of him and sherefuses. Her co moise was further complicated by a NSTEMI wich Tn rise fro m 133to 563 then 8569 then trended down. She denied any ches t pain, SOB. TTE on04/07/21 showed EF of 55-60%. She has prior known multivessel CAD and hadrefused prior CABG/PCI. P AST MEDICAL HISTORY:CAD/OR, blindness, HLD, DMI c/b multiple DKA admissions, statin intolerance, PAD -- ALLERGIES /HOME MEDS -- ALLERGIES:codeine (Unknown - Allergy)lisinopr il (Unknown - Allergy) HOME MEDICATIONS:Aspirin Chewable Tab (Aspirin Chewable Tab) 81 MG PO DAILY Atorvastatin Tab (L ipitor Tab) 80 MG PO DAILYMetoprolol Succinate XL Tab (Topro l XL Tab) 25 MG PO DAILY -- SUBJECTIVE -- -REVIEW OF SYSTE MS- GENERAL: Negative for fever, malaise, fatigue.EY ES: Negative for blurry vision. No diplopia.EARS/NOS E/THROAT: Negative for sore throat. No otalgia. No rhinorr hea.BREAST: Negative for change in shape, swelling, masses, nipple discharge, pain, skin changes.RESPIRATORY: Negat mirtha for dyspnea or wheeze. No cough.CARDIOVASCULAR: Nega tive for chest pain or palpitations. No extremity swelling.GASTROINTESTINAL: Negative for abdomina l pain or nausea. No emesis. No diarrhea.GENITOURINARY: Ne gative for dysuria, frequency, or urgency. No gross hematuria.MUSCULOSKELETAL: Negative for joint st iffness, pain, or arthralgias.SKIN: Negative for rashes. No pruritus.NEUROLOGICAL: Negative for headache. No vertigo. Denies paresthesias.PSYCHIATRIC: Negative for s pecific complaints.ENDOCRINE: Negative for cold intolera nce, heat intolerance, polyphagia, polydipsia, polyuria, w eight change, fatigue.HEMATALOGIC / LYMPHORETICULAR: N egative for excessive bleeding, unusual masses.ALLERGIC / IM MUNOLOGIC: Negative for heat/cold intolerance, polydipsia, or polyuria. -- OBJECTIVE -- VITALS (08/07 01:13 - 08/08 01:13):Temperature F: 98.3Temperature source: Or alPulse Rate 72 (72 - 96)Respiratory rate: 14 (12 - 20)B P: 118/64 (101/63 - 136/87) -EXAM- OTHER: General: Well developed, well nourished, in no apparent distress. Head: Normocephalic, atraumatic. Eyes: PERRL, EOM in tact, conjunctiva and sclera clear Chest: Grossly no rmal appearance. Lungs: Clear bilaterally with nor mal respiratory effort. Heart: Regular rate and r hythm, normal S1, S2, no murmurs, no rubs, no gallops Abdomen: Soft, non-tender, no organomegaly, no masses not ed Extremities: No clubbing, no cyanosis, no jonny a. Neurological: No focal deficits, normal muscle strength, normal tone. Pulses: Pulses normal in all extr emities. Skin: Intact without significant lesions, or r ashes -- DATA -- MEDICATIONS ASPIRIN 81 MG PO DAILYhydrAL AZINE HCL 10 MG IV Q6H PRNRANOLAZINE 1000 MG PO [id number] OSE 50%-WATER 50 ML IV ASDIR (PRN)METOPROLOL SUCCINA TE 25 MG PO DAILYISOSORBIDE MONONITRATE 30 MG PO DAILYINSULI N REGULAR, HUMAN with/in SODIUM CHLORIDE 100 mL BAG 100 UNI T IV ASDIREZETIMIBE 10 MG PO DAILYMUPIROCIN 1 APPLIC NASAL BIDclopidogreL 75 MG PO DAILYGLUCAGON 1 MG IM DIR (PRN) SODIUM CHLORIDE 0.45% 1000 ML IV ASDIRSODIUM BIC ARBONATE 8.4% with/in WATER FOR INJECTION,STERILE 50 MEQ IV ASDIRSODIUM CHLORIDE 0.9% 1000 ML IV ASDIRDEXTRO SE 5%-0.45% SALINE 1000 ML IV ASDIR LABS BASIC METABOLIC CAMACHO EL (08/08/21 00:33)SODIUM 135POTASSIUM 4.0CHLORIDE 101CARBON DIOXIDE 27ANION GAP 11.0 DGLUCOSE 294H HBLOOD UR EA NITROGEN 26H HGLOMERULAR FILTRATION RATE 41 LCREATININE 1 .6H HBUN/CREATININE RATIO 16.3CALCIUM 9.1 PHOS (02/19 00:33)PHOSPHOROUS 3.4 GLU BED (08/08/21 00:17)GL UBED 288 H GLU BED (08/07/21 23:38)GLUBED 298 H GLU BED (0 08/07/21 22:48)GLUBED 327 H GLU BED (08/07/21 22:33)GLUBE D 360 H ARTERIAL BLOOD GAS (08/07/21 21:36)ARTERIAL BLOO D GAS PH 7.292 LARTERIAL BLOOD GAS PCO2 38.7ARTERIAL BLOO D GAS PO2 95.4BICARBONATE TOTAL HCO3 18.3 LBASE EXCESS -7. 7 LABG O2 SATURATION 97.2ABG TYPE ArterialARTERIAL FIO2 21 .0PaO2/FiO2 454.20ABG VENT MODE Room AirALLENS TEST YesTOTAL HGB 11.2 LTCO2 ARTERIAL 19.5 OSMO (08/07/21 21:07)OSMOLAL ITY SERUM 322 H GLU BED (08/07/21 21:07)GLUBED 392 H COVID 19 INH AG (08/07/21 20:20)COVID 19 INHOUSE AG NEGATIVE UA RFLX MICR amp;CULT IF INDICATED (08/07/21 19:55) UA COLOR STRAWUA APPEARANCE CLEARUA GLUCOSE DIPSTICK 3+ NATHALIE BILIR UBIN DIPSTICK NEGATIVEUA KETONE DIPSTICK 2+ NATHALIE SPECI FIC GRAVITY 1.022UA BLOOD DIPSTICK NEGATIVEUA PH DIPSTICK 5 .0UA PROTEIN DIPSTICK NEGATIVEUA UROBILINOGEN DIPSTIC K NEGATIVEUA NITRITE DIPSTICK NEGATIVEUA LEUKOCYTE ESTERASE DIPSTICK NEGATIVEUA MICROSCOPIC NEEDED? NOUA WBC NONE SEENUA RBC 0-2UA BACTERIA NONE SEENUA SQUAMOUS C ELLS RAREUA MUCUS OCCASIONAL GLU BED (08/07/21 19:34)GLUBED 551 *H HGBA1C - GLYCOSYLATED HGB (08/07/21 19:21)GLYCOS YLATED HEMOGLOBIN (HA1C) > 14.0 H PTT (08/07/21 19:10)THROMBOPLASTIN TIME PARTIAL 34.0 PROTHROMB IN TIME (08/07/21 19:10)PROTHROMBIN TIME PATIENT 10.0INT ERNATIONAL NORMAL RATIO 0.9 ACETNQL (08/07/21 19:10)ACETONE QUAL LARGE H CK (08/07/21 19:10)CREATINE KINASE (CK) 197 CB C W/O DIFF (08/07/21 19:10)WHITE BLOOD CELL 5.6RED BLOOD CE LL 3.98HEMOGLOBIN 12.3HEMATOCRIT 36.2L LMEAN CELL V OLUME 91MEAN CELL HGB 30.9MEAN CELL HGB CONCENTRATION 34.0RED CELL DISTRIBUTION WIDTH 13.2PLATELET COUNT 262 MINOO (08/07/21 19:10)AMYLASE 39 PHOS (08/07/21 19:10) PHOSPHOROUS 4.7 BASIC METABOLIC PANEL (08/07/21 19:10)SODIUM 129L LPOTASSIUM 4.8CHLORIDE 93L LCARBON DIOXIDE 19L L ANION GAP 21.8 HGLUCOSE 617*H *HBLOOD UREA NITROGEN 27H HG LOMERULAR FILTRATION RATE 44 LCREATININE 1.5BUN/CREATININE RATIO 18.0CALCIUM 9.8 OSMO (08/07/21 19:10)OSMOLALITY SERUM 319 H TROP-I HIGH SEN (08/07/21 19:10)TROP-I HIGH SENS ITIVITY 2095 *H LIVER FUNCTION PANEL (08/07/21 19:10)TOT AL PROTEIN 8.1ALBUMIN 4.0GLOBULIN 4.1 HBILIRUBIN TOTAL 0.6 BILIRUBIN DIRECT 0.2BILIRUBIN INDIRECT 0.4SGOT/AST 29SGPT/ ALT 25ALKALINE PHOSPHATASE 114 Signed in PatientKeep er by Andreina Oliva MD on 08/08/21 at 16:13 Electron ically Signed by Andreina Oliva MD on 08/08/21 at 1613ATTENTION EDITS and/or ADDENDA must be ma de in Patient Keeper for this note. Edits and ammen dments created in [employer] are not visible in Patien t Keeper or the legal medical record (HPF). [facility] #: [id number] OF [id number]:[id number] for patient [id number]:49 2021-08-07 [id number]:00 [facility] 21:20:00 [facility] ([facility])Intensive Care Consultation REPORT #: [id number] REPORT STATUS: Signed DATE: 08/07/21 T EDUARDO: 2120 PATIENT: LIZZIE HINKLE UNIT #: [id number] CCOUNT #: [id number] ROOM #: NC.101 BED: 1 : 52 AGE: 71 SEX: F ATTEND: Parish Rudolph MD ADM AUTHOR: Can Vinson APRN ATTENTION EDITS and/or ADDENDA must be made i n Patient Keeper for this note. Edits and ammendments c reated in [facility] are not visible in Patient Keeper or the legal medical record (HPF). -- CO-SIGNATURE -- COMMENTS:Agree with the findings and plan as documented by ACNP. Patient was discussedat length. Patient's clinical data was personally reviewed by me and discussedwith ACNP. Assessmen t and orders reviewed at length. Clinical data reviewe d. Labs improved now. Patient was downgraded by primarys aguila while still in ER. No further acute critical car e or pulmonaryinterventions planned. Please contact a t any time with any questions, concerns,changes in patient status. Thank you for allowing the critical care service toparticipate in the care of this patient. Keila su in PatientKeeper by DARRIUS BAUMAN MD on 08/08/21 at 16:03 -- ASSESSMENT AND PLAN -- GENERAL ASSESSMENT:[facility], [facility] AssociatesCritical Care Note HPI:Lizzie Hinkle is a 71 y/o legally blind female with history as listed zaki guerin. Ptpresented to the ED with elevated glucose over the past 2 days. In ED, pt foundto be in DKA with elevated troponin. She was started on insulin gtt andadmitted to IC U for monitoring. ASSESSMENTDKAAnion gap metabolic aci dosis AG 65SRGYARQYI6, uncontrolledHTNHLDmultivessel CAD PLAN Neuro- neuro checks per unit protocol - fall precaution s Pulm- Sats high 90s on room air- keep SpO2 > 92% CV- k nown CAD, but pt opted for medical mgmt a year ago- monito r on telemetry- keep SBP < 160- isosorbide, Ranexa pe r cards- DAPT (ASA/Plavix), Zetia, BB- lipid panel in AM- cards following Renal- Monitor kidney function/UOP- monitor/correct lytes- Avoid nephrotoxins GI- no acute GI issues- bowel regimen Heme- Monitor H/H, PLT- Tr ansfuse to keep Hgb > 7 Endo- UA w/ +3 glucose, +ketones; h igh acetone level, A1c > 14- Insulin gtt per DKA protocol. t ransition to Lantus / SSI when AG < 12 x 2,glucose consist ently < 200 HCO3 appropriate- diabetic education endocrine c onsult when downgraded ID- normal WBC, afebrile- no indicati on for ABX- monitor WBC/fever curve ICU checklistLines: PIVD VT/GI ppx: heparin, SCDs / no indication for GI ppxCode sta tus: fullDispo: ICU Review of systems: negative except for stated Medical Hx: DMT1, HTN, HLD, CK D, multivessel CAD, PAD, legally blindSurgical Hx:S ocial Hx:Family Hx: Physical ExamGeneral: NAD, awake a nd alertEyes: Anicteric sclerae. Mouth: MMMNeck: Landin pple.CV: RRR. peripheral pulses difficult to appreciatePu lm: bilateral chest rise. unlabored respirations, ro om airAbdomen: Soft, nondistended. nontenderExtremi ties: No lower extremity edema.Skin: Warm, dry. Cap refil l < 3 secsNeuro: Awake, alert, no FNDsPsych: normal mo od -- HISTORY -- PAST MEDICAL HISTORY:As per note. PAS T SURGICAL HISTORY:As per note -- OBJECTIVE -- VITALS ( 8 21:21 - 08/07 21:21):Temperature F: 98.3Temperature sour ce: OralPulse Rate 83 (83 - 89)Respiratory rate: 12 (12 - 20)BP: 128/71 (128/71 - 136/87) -- DATA -- MEDIC ATIONS DEXTROSE 50%-WATER 50 ML IV ASDIR (PRN)INSULIN R EGULAR, HUMAN with/in SODIUM CHLORIDE 100 mL BAG 100 UNI T IV ASDIRMUPIROCIN 1 APPLIC NASAL BIDGLUCAGON 1 MG I M ASDIR (PRN)SODIUM CHLORIDE 0.45% 1000 ML IV ASDIRSODIU M BICARBONATE 8.4% with/in WATER FOR INJECTION,MAYO RILE 50 MEQ IV ASDIRSODIUM CHLORIDE 0.9% 1000 ML IV ASDIRDEX TROSE 5%-0.45% SALINE 1000 ML IV ASDIR LABS COVID 19 I NH AG (08/07/21 20:20)COVID 19 INHOUSE AG NEGATIVE UA RFLX MICR amp;CULT IF INDICATED (08/07/21 19:55)UA COLOR S TRAWUA APPEARANCE CLEARUA GLUCOSE DIPSTICK 3+ NATHALIE BILI PITTMAN DIPSTICK NEGATIVEUA KETONE DIPSTICK 2+ NATHALIE SPECI FIC GRAVITY 1.022UA BLOOD DIPSTICK NEGATIVEUA PH DIPSTICK 5. 0UA PROTEIN DIPSTICK NEGATIVEUA UROBILINOGEN DIPSTICK NEGATI VEUA NITRITE DIPSTICK NEGATIVEUA LEUKOCYTE ESTERASE D IPSTICK NEGATIVEUA MICROSCOPIC NEEDED? NOUA WBC NONE SEE N UA RBC 0-2UA BACTERIA NONE SEENUA SQUAMOUS CELLS RAREUA MUCUS OCCASIONAL GLU BED (08/07/21 19:34)GLUBED 551 *H PTT (08/07/21 19:10)THROMBOPLASTIN TIME PARTIAL 34.0 PROTHROMBIN TIME (08/07/21 19:10)PROTHROMBIN MARY JO E PATIENT 10.0INTERNATIONAL NORMAL RATIO 0.9 ACETNQL ( 01/20 19:10)ACETONE QUAL LARGE H TROP-I HIGH SEN ( 01/20 19:10)TROP-I HIGH SENSITIVITY 2095 *H CBC W/O DI FF (08/07/21 19:10)WHITE BLOOD CELL 5.6RED BLOOD CE LL 3.98HEMOGLOBIN 12.3HEMATOCRIT 36.2L LMEAN CELL V OLUME 91MEAN CELL HGB 30.9MEAN CELL HGB CONCENTRATION 34.0RED CELL DISTRIBUTION WIDTH 13.2PLATELET COUNT 262 B ASIC METABOLIC PANEL (08/07/21 19:10)SODIUM 129L LPOT ASSIUM 4.8CHLORIDE 93L LCARBON DIOXIDE 19L LANION GAP 2 1.8 HGLUCOSE 617*H *HBLOOD UREA NITROGEN 27H HGLOMER ULAR FILTRATION RATE 44 LCREATININE 1.5BUN/CREATININE RATIO 18.0CALCIUM 9.8 LIVER FUNCTION PANEL (08/07/21 1 9:10)TOTAL PROTEIN 8.1ALBUMIN 4.0GLOBULIN 4.1 HBILIRUBIN TO TERRA 0.6BILIRUBIN DIRECT 0.2BILIRUBIN INDIRECT 0.4SG OT/AST 29SGPT/ALT 25ALKALINE PHOSPHATASE 114 Signed in PatientKeeper by Can Vinson APRN on at 01:37 Cosigned by DARRIUS BAUMAN MD on 08/08/21 at 16 :03 at 1603 at 1603ATTENTION EDITS and/or ADDENDA must be ma de in Patient Keeper for this note. Edits and ammen dments created in [employer] are not visible in Patien t Keeper or the legal medical record (HPF). RPT #: [id number] OF [id number]:[id number] for patient [id number]:04:48 2021-08-07 [id number] [facility] 21:00:00 [place] ([facility])Hospitalist Fady Arshad REPORT #: [id number] REPORT STATUS: Signed DATE: 08/07/21 TIME: 2099 PATIENT : LIZZIE HINKLE UNIT #: [id number] #: [id number] ROOM #: NC.101 BED: 1 : 52 AGE: 71 SEX: F ATTEND: Parish Rudolph MD ADM AUTHOR: Britney Kearney ATTENTION EDITS and/or ADDENDA must be made i n Patient Keeper for this note. Edits and ammendments c reated in [facility] are not visible in Patient Keeper or the legal medical record (HPF). -- CO-SIGNATURE -- COMMENTS:Agree with the findings and plan as documented by Britney Kearney NP. Pt seenand examined. Moderate complexity. Signed in PatientKeeper by PARISH RUDOLPH MD on 08/12/21 at 14:44 -- HISTORY -- ADMISSION DATE:2021-08-07 PRIMARY CAR E PROVIDER:Primary or Family Physician, No CHIEF C OMPLAINT: Sleeping a lot recently, mechanical fall, poor d iabetes management HPI:Patient is a 71 years old female with past medical history significant forhyperlipidemia, C AD, blindness, DM2 currently being poorly managed. P atientwith no PCP managing her diabetes currently and also the patient not adequatelymanaging her blood sugar at home d ue to blindness limitation presents to ER s/pfall with outstretched hand with no residual injury noted. She is still able tomove her hands. She denies syncopal episode without preceding symptoms prior tofall. Patient was seen on bed awake with at the bedside. She en dorsedthat she has been sleeping a lot x1 month and has bee n very frustrated with herblindness. She endorsed that she has not been adequately managing her bloodsugar due to b lindness and her does not understand how to manag e herblood sugar either. According to the , patient blood sugar wassignificantly elevated today than usual. He a lso endorsed that patient does noteat or check her b lood sugar she is supposed. Patient denies any otherassocia sarah beth symptoms including shortness of breath, chest pa in, heartpalpitation, headache, dizziness, nausea, v omiting, abdominal pain or any othersymptoms PAST MEDICAL HISTORY:Hyperlipidemia, CAD, blindness, DM2 PAST SURGICAL HISTORY:Right eye retinal detachment surgery, hy sterectomy, FAMILY HISTORY:Noncontributory -SOCIAL HISTORY- -TOBACCO USE- DETAILS/COMMENTS:Denied -VAPING/INHALED ESTEFANY VENTS- DETAILS/COMMENTS:Denied -ALCOHOL USE- DETAILS/COMMENTS:Denied -DRUG USE- DETAILS/COMME NTS:Denied MARITAL STATUS: LIVING SITUATION:Lives wi th family -- ALLERGIES/HOME MEDS -- ALLERGIES:codeine (Unk nown - Allergy)lisinopril (Unknown - Allergy) HOME MEDICATIONS:Aspirin Chewable Tab (Aspirin Chewab le Tab) 81 MG PO DAILYAtorvastatin Tab (Lipitor Tab) 80 MG PO DAILYMetoprolol Succinate XL Tab (Toprol XL Tab) 25 MG PO DAILY -- SUBJECTIVE -- -REVIEW OF SYSTEMS- GENER AL: Negative for fever, malaise. Positive fatigue.EY ES: Negative for blurry vision. No diplopia.EARS/NOS E/THROAT: Negative for sore throat. No otalgia. No rhinorrhea.RESPIRATORY: Negative for dyspnea or wheeze. No cough.CARDIOVASCULAR: Negative for chest pain or palpitations. No extremity swelling.GASTROINTEST INAL: Negative for abdominal pain or nausea. No emesis . No diarrhea.GENITOURINARY: Negative for dysuria, fr equency, or urgency. No gross hematuria.MUSCULOSKELETAL: Neg ative for joint stiffness, pain, or arthralgias. Chronic g eneralized weaknessSKIN: Negative for rashes. No pruritus.NEUROLOGICAL: Negative for headache. No vertigo. Denies paresthesias. Chronic generalized weaknessPSYCHIATRIC: Negative for specific complaints.ENDOCRINE: Negative for cold intolera nce, heat intolerance, polyphagia, polydipsia, polyuria, w eight change, fatigue.HEMATALOGIC / LYMPHORETICULAR: N egative for excessive bleeding, unusual masses.ALLERGIC / IM MUNOLOGIC: Negative for heat/cold intolerance, polydipsia, or polyuria. -- OBJECTIVE -- VITALS (08/07 05:07 - 08/08 05:07):Temperature F: 98.3Temperature source: Or alPulse Rate 72 (72 - 96)Respiratory rate: 14 (12 - 20)B P: 118/64 (101/63 - 136/87) -EXAM- GENERAL: Well developed , not well nourished, in no apparent distress. Moderate gen eralized weaknessHEAD: Normocephalic, atraumatic.EYES: Bi lateral blindness , without nystagmus, lids normal.EARS: Grossly normal hearing.NOSE: No deformity, no discharge, no inflammation, no lesions.MOUTH: Oropharynx witho ut deformities or lesions, normal mucosa..NECK: Sup pleCHEST: Grossly normal appearance.LUNGS: Clear bilateral ly with normal respiratory effort.HEART: Regular rate an d rhythm, normal S1, S2, no murmurs, no rubs, no gallops, no clicks.ABDOMEN: Soft, non-tender, no organomegal y, no masses noted.MUSCULOSKELETAL: No deformity, no scoliosis noted of thoracic or lumbar spine, joint ROM regulo ssly normal, unable to assess given the due to modera te generalized weaknessEXTREMITIES: No clubbing, no cyanosis, no edema.NEUROLOGICAL: No focal deficits, crania l nerves II-XII not completely intact, normal sensation, normal reflexes, normal coordination, normal muscle st rength, normal tone.PULSES: Pulses normal in all extremi ties.SKIN: Intact without significant lesions, or rashes.LY MPH NODES: No significant cervical node adenopathy. No sign ificant axillary node adenopathy. No significant inguina l node adenopathy.PSYCHIATRIC: Alert and oriented to ti me, person, place. Normal mood and affect, intact judgment a nd insight. -- DATA -- LABS GLU BED (08/08/21 05:01)GLUBED 1 13 H GLU BED (08/08/21 02:43)GLUBED 192 H MAG (08/08/21 02:34)MAGNESIUM 2.0 LIPID PROFILE (CORONARY RISK ) (08/08/21 02:34)TRIGLYCERIDES 172 HCHOLESTEROL 324 HCHOLES TEROL/HDL RATIO 4HDL CHOLESTEROL 76 HLIPOPROTEIN LDL 198 H PHOS (08/08/21 02:34)PHOSPHOROUS 2.9 CBC W/AUTO DIFF (08/08/21 02:34)WHITE BLOOD CELL 6.5RED BLOOD CELL 3.60HEM OGLOBIN 11.0L LHEMATOCRIT 32.1L LMEAN CELL VOLUME 89MEAN CELL HGB 30.6MEAN CELL HGB CONCENTRATION 34.3RED CELL DIS TRIBUTION WIDTH 13.2PLATELET COUNT 260MEAN PLATELET VOLUME 11.2NEUTROPHIL % 59.2IMMATURE GRANULOCYTE % 0.5L YMPHOCYTE % 29.9MONOCYTE % 8.4EOSINOPHIL % 1.4BASOPHIL % 0. 6NUCLEATED RBC % 0.0NEUTROPHIL # 3.87IMMATURE GRANULOCYTE # 0.030LYMPHOCYTE # 1.95MONOCYTE # 0.55EOSINOPHIL # 0.09BASOPHIL # 0.04NUCLEATED RBC # 0.000 OSMO (0 08/08/21 02:34)OSMOLALITY SERUM 307 H BASIC METABOLIC CAMACHO EL (08/08/21 02:34)SODIUM 136POTASSIUM 3.6CHLORIDE 103CARBON DIOXIDE 25ANION GAP 11.6GLUCOSE 213H HBLOOD URE A NITROGEN 24H HGLOMERULAR FILTRATION RATE 52 LCREATININE 1.3BUN/CREATININE RATIO 18.5CALCIUM 9.0 ACETONE BL (08/08/21 02:34)ACETONE BLOOD NEGATIVE GLU BED ( 08/08/21 01:23)GLUBED 242 H BASIC METABOLIC PANEL ( 00:33)SODIUM 135POTASSIUM 4.0CHLORIDE 101CARBON DIOXIDE 27ANION GAP 11.0 DGLUCOSE 294H HBLOOD UREA NITRO GEN 26H HGLOMERULAR FILTRATION RATE 41 LCREATININE 1.6H HBUN/CREATININE RATIO 16.3CALCIUM 9.1 PHOS (07/30 00:33)PHOSPHOROUS 3.4 GLU BED (08/08/21 00:17)GL UBED 288 H GLU BED (08/07/21 23:38)GLUBED 298 H GLU BED ( 22:48)GLUBED 327 H GLU BED (08/07/21 22:33)GLUB ED 360 H ARTERIAL BLOOD GAS (08/07/21 21:36)ARTERIAL BLOO D GAS PH 7.292 LARTERIAL BLOOD GAS PCO2 38.7ARTERIAL BLOO D GAS PO2 95.4BICARBONATE TOTAL HCO3 18.3 LBASE EXCESS -7. 7 LABG O2 SATURATION 97.2ABG TYPE ArterialARTERIAL FIO2 21.0PaO2/FiO2 454.20ABG VENT MODE Room AirALLENS TEST YesTOTAL HGB 11.2 LTCO2 ARTERIAL 19.5 GLU BED ( 08/07/21 21:07)GLUBED 392 H OSMO (08/07/21 21:07)OSMOLALI TY SERUM 322 H COVID 19 INH AG (08/07/21 20:20)COVID 19 I NHOUSE AG NEGATIVE UA RFLX MICR amp;CULT IF INDICATED (01/20 19:55) UA COLOR STRAWUA APPEARANCE CLEARUA GLUCO SE DIPSTICK 3+ NATHALIE BILIRUBIN DIPSTICK NEGATIVEUA KETONE DIP STICK 2+ NATHALIE SPECIFIC GRAVITY 1.022UA BLOOD DIPSTICK NEGA TIVEUA PH DIPSTICK 5.0UA PROTEIN DIPSTICK NEGATIVEUA UROBI LINOGEN DIPSTICK NEGATIVEUA NITRITE DIPSTICK NEGATIVEUA LEUKOCYTE ESTERASE DIPSTICK NEGATIVEUA MICROSCOPIC NEEDED? NOUA WBC NONE SEENUA RBC 0-2UA BACTERIA NONE SEENUA SQUAM OUS CELLS RAREUA MUCUS OCCASIONAL GLU BED (08/07/21 19:34) GLUBED 551 *H HGBA1C - GLYCOSYLATED HGB (08/07/21 19:21)GLY COSYLATED HEMOGLOBIN (HA1C) > 14.0 H TROP-I HIGH SEN (0 08/07/21 19:10)TROP-I HIGH SENSITIVITY 2095 *H LIVER FUNC TION PANEL (08/07/21 19:10)TOTAL PROTEIN 8.1ALBUMIN 4.0GLOB ULIN 4.1 HBILIRUBIN TOTAL 0.6BILIRUBIN DIRECT 0.2BILIRUBI N INDIRECT 0.4SGOT/AST 29SGPT/ALT 25ALKALINE PHOSPHATASE 11 4 PTT (08/07/21 19:10)THROMBOPLASTIN TIME PARTIAL 34.0 PROTHROMBIN TIME (08/07/21 19:10)PROTHROMBIN MARY JO E PATIENT 10.0INTERNATIONAL NORMAL RATIO 0.9 ACETNQL ( 01/20 19:10)ACETONE QUAL LARGE H CK (08/07/21 19:10)CR EATINE KINASE (CK) 197 CBC W/O DIFF (08/07/21 19:10)WHI TE BLOOD CELL 5.6RED BLOOD CELL 3.98HEMOGLOBIN 12.3HEMATO CRIT 36.2L LMEAN CELL VOLUME 91MEAN CELL HGB 30.9MEAN CELL HGB CONCENTRATION 34.0 RED CELL DISTRIBUTION WIDTH 1 3.2PLATELET COUNT 262 MINOO (08/07/21 19:10)AMYLASE 39 BASIC M ETABOLIC PANEL (08/07/21 19:10)SODIUM 129L LPOTASSIUM 4.8 CHLORIDE 93L LCARBON DIOXIDE 19L LANION GAP 21.8 HGLUCOSE 617*H *HBLOOD UREA NITROGEN 27H HGLOMERULAR FILTRATION RATE 44 LCREATININE 1.5BUN/CREATININE RATIO 18.0CALCIUM 9.8 PHOS (08/07/21 19:10)PHOSPHOROUS 4.7 OSMO (08/07/21 19:10)OSMOLALITY SERUM 319 H -- ASSESSMENT AND P RODRÍGUEZ -- GENERAL ASSESSMENT: #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 Follow recommendationsContinue insulin drip and fingers tick per protocolMagnesium sulfate, sodium bicarbContinue IV fluid followEndocrinologist consulted. Follow recommen dationsCase medical case manager consulted for home health services to as sist patient at homeContinue to monitor #NSTEMITropon in ontinue to trend levelsCardiologist consult ed. Follow recommendationsContinue cardiac telemetry monito ringLipid panel, TSH, and E6nYxvmzjpu to monitor #Hyponatr emia 129IV fluid receivedContinue to monitor for improvemen t #Suspected acute on chronic CKDContinue IV hydra tion per DKA protocolAvoid nephrotoxinsRenally dose medicationsConsider icu staff nurse consult if late r indicated #Hyperlipidemia Continue home medications when r econciled #Significant physical deconditioningPositive delmy ateral eyes blindnessAssist patient with all activities #Venkatesh e medical case manager consult for nursing home service at homePatie nt and endorsed having difficulty managing kayla ent's blood sugarPatient also has no PCP currently Vital sig ns per unit protocol Daily lab Meds appropriateFamotidine fo r GI PPxSCDFull codeFurther treatment as clinical cou rse indicatesPatient to be discharged when clinicall y stable and cleared by the technical assistance consultant -- ATTESTATION -- TIME SPENT ON PATIENT CARE: - Coordination of Care 60 minut es CARE ACTIVITIES / CARE COORDINATION: - I have reviewe d the history and repeated the ingram elements - I have s een and examined this patient - I have discussed the pat ient's condition with other members of the care team Si gned in PatientKeeper by Britney Kearney on 07/30 at 05:35 Cosigned by PARISH RUDOLPH MD on 08/12/21 a t 14:44 at 1444 at 1444ATTENTION EDITS and/or ADDENDA must be ma de in Patient Keeper for this note. Edits and ammen dments created in [employer] are not visible in [facility] t Keeper or the legal medical record (HPF). RPT #: [id number] OF REPORT HPHistory and physical [id number]:00:[id number] -[id number] lable for patient yrcwKYWBUCXDGBJMLT0583-02-90B4 4:45:31 2021-08-07 [id number]:33:00 [facility] 20:33:00 [facility] ([facility])EMERGENCY PROVIDER REPORTREPORT#:[id number] REPORT STATUS: SignedDAT E:08/07/21 TIME: 2032 PATIENT: LIZZIE HINKLE UNIT #: [id number]#: [id number] ROOM: [facility] D: 1AGE: 71 SEX: F PCP PHYS: No Primary or Family PhysicianS ERVICE AUTHOR: José Spaulding Jr, MD * ALL edit s or amendments must be made on the electronic/comput er document * HPI-General Illness GeneralConfirmed Patient Y Silvio Greet Date/Time 08/07/21 184 PresentationChief Complaint high blood sugar Free Text HPI NotesFree Text HP I NotesPatient with a history of hypertension, hig h cholesterol, diabetes, CAD, not very compliant w ith her meds presents to the ER with high blood sugar. P atient states she also feels weak and has been peeing a lot. Patient denies any fever,chills, chest pain, cady rtness of breath. Patient states her sugar has been over60 0 for the last couple of days. Patient states that she has been in the hospital for DKA many times in the past. Rev iew of Systems ROS StatementsAll systems rev neg except as marked.Complete sys rev neg except as marked. Angel Luis farley Medical History - AdultStated Complaint HIGH BLOOD SUGARAllergiesCoded Allergies:codeine (UNKNOWN 09/29/20)lisinopril (UNKNOWN 09/29/20) Home MedicationsActive ScriptsAspirin 81 MG PO DAILY Aspirin 81 MG PO DAILY #90 TAB Prov: 10/02/20Atorvastatin ( Lipitor) 80 MG PO DAILY Atorvastatin (Lipitor) 80 MG PO WILMAN Y #90 TAB Prov: 10/02/20Clopidogrel Bisulfate (Plavix) 75 MG PO DAILY Clopidogrel Bisulfate (Plavix) 75 MG PO DAILY #9 0 TAB Prov: 10/02/20Metoprolol Succ Xl (Toprol Xl) 25 MG PO DAILY Metoprolol Succ Xl (Toprol Xl) 25 MG PO DAILY #9 0 TAB Prov: 10/02/20 Additional Medical HistoryDiabetes, hyp ertension, high cholesterol, neuropathy, CAD, legally blind Additional Surgical HistoryNone Physical Exam Vital SignsVi terra SignsFirst Documented: Result Date Time Pulse Ox 100 08/07 1906 B/P 136/87 08/07 1906 B/P Mean 103 08/07 1 907 O2 Delivery Room air 08/07 1906 Temp 36.8 08/07 190 7 Pulse 89 08/07 1906 Resp 20 08/07 1906 Last Documented: R esult Date Time Pulse Ox 100 08/07 1907 B/P 136/87 / 19 07 B/P Mean 103 08/07 1906 O2 Delivery Room air 08/07 1906 Temp 36.8 08/07 1906 Pulse 89 04/09 1907 Resp 20 08/07 190 7 Review of Vital Signs Reviewed Free Text PE NotesFree Text PE Notes GENERAL: Moderate distress HEAD: Normal with no signs of head trauma. EYES: EOMI, conjunctiva normal, no discharge. ENT: dry mucous membranes NECK: Normal range of motion, supple CHEST: Clear breath sounds bilaterally. N o wheezes, rales, or rhonchi. CARDIAC: Regular rate and rhy thm. S1 and S2, ABDOMEN: Normal and soft with no tenderness GENITOURINARY: Normal, No tenderness MUSCULOSKEL ETAL: Good range of motion of all major joints NEUROLOGICAL : Alert and oriented, gross movement normal Skin ; No rashes Interpretation Diagnostics Lab Results InterpretationResultsLaboratory Tests 08/07/211909:[Embedded Image Not Available]Laboratory Te sts: 08/07 Chemistry Sodium (13 5 - 145 mmol/L) 129 L Potassium (3.5 - 5.1 mmol/L) 4.8 Chloride (98 - 107 mmol/L) 93 L Carbon Dioxide (21 - 32 m mol/L) 19 L Anion Gap (2.0 - 16.0) 21.8 H BUN (4 - 23 mg/dL) 27 H Creatinine (0.6 - 1.5 mg/dL) 1.5 Glomerular Filt r Rate (>60 ml/min) 44 L BUN/Creatinine Ratio (12.0 - 20.0) 18.0 Glucose (65 - 99 mg/dL) 617 *H POC Glucose (70 - 105 mg/dL) 551 *H Calcium (8.5 - 10.1 mg/dL) 9.8 Total Delmy irubin (0.2 - 1.2 mg/dL) 0.6 Direct Bilirubin (0.0 - 0.3 mg/ dL) 0.2 Indirect Bilirubin (0.0 - 0.8 mg/dL) 0.4 AST (15 - 37 U/L) 29 ALT (6 - 50 U/L) 25 Total Alk Phosphatase (45 - 117 U/L) 114 Troponin I High Sens (0 - 53 pg/mL) 2095 *H Total Protein (6.4 - 8.2 g/dL) 8.1 Albumin (3.4 - 5.0 g/dL) 4.0 Globulin (2.3 - 3.5 g/dL) 4.1 H Coagulation INR (0.8 - 1.1 RATIO) 0.9 APTT (25.1 - 36.5 SECONDS) 34.0 PT Patient/Control Mix (9.4 - 12.5 SECONDS) 10.0 He matology WBC (4.5 - 11.0 10 3/uL) 5.6 RBC (3.50 - 5.50 10 6/uL) 3.98 Hgb (12.0 - 16.0 g/dL) 12.3 Hct (37.0 - 55.0 %) 36.2 L MCV (81 - 102 fL) 91 MCH (26.0 - 34.0 pg) 30.9 MCHC (31.0 - 37.0 g/dL) 34.0 RDW (11.6 - 14.4 %) 13.2 Plt Cou nt (150 - 400 10 3/uL) 262 Toxicology Acetone, Qual (NEGAT MIRTHA) LARGE H Urines Urine Color (YELLOW) STRAW Urine Appear ance (CLEAR) CLEAR Urine pH (5.0 - 8.0) 5.0 Ur Speci fic [place] (1.005 - 1.025) 1.022 Urine Protein (NEGATIVE) N EGATIVE Urine Glucose (UA) (NEGATIVE) 3+ H Urine Ketones (NEGATIVE) 2+ H Urine Blood (NEGATIVE) NEGATIVE Urine Nitr ite (NEGATIVE) NEGATIVE Urine Bilirubin (NEGATIVE) N EGATIVE Urine Urobilinogen (0.1 - 0.2 EU/dL) NEGATIVE U r Leukocyte Esterase (NEGATIVE) NEGATIVE Urine RBC (0 - 3 /h pf) 0-2 Urine WBC (0 - 3 /hpf) NONE SEEN Ur Squamous Epi th Cells (FEW /HPF) RARE Urine Bacteria (NEGATIVE /HPF) N ONE SEEN Urine Mucus (/lpf) OCCASIONAL 08/08 2019 Serolo gy SARS-CoV-2 Ag (Rapid) (Negative) NEGATIVE Microb iology: Date/Time Procedure - Status Source Growth 08/07 2032 MRSA Screen - COLB NASAL Point of Care TestingRhythm Strip Interpretation Time 2124 Rate 85 Rhythm Strip Interpretation Interpreted by me, Normal sinus r hythm ECG #1 InterpretationText/Dict NoteNormal sinus rhyt hm at 87, left atrial enlargement Re-Evaluation MDM Free T ext MDM NotesFree Text MDM NotesDifferential diagnostic considerations include but not limited to DKA, H HS, neuropathy, dehydration, weakness, medication noncompliance, NSTEMI Re-Evaluation/Progress #1T ext/Dict NotePatient in DKA, anion gap of 21, sugar of al most 600. Will start DKA protocol and admit to ICUPatient also has an elevated troponin, patient has known history of CAD, severe but is refused CABG in the past. Case discussed with cardiology, Dr. Oliva, recommend trend troponin Patient admitted to ICU in critical condition ED CourseMedication(s) OrderedMedication(s) Ordered:Electrolytic, Caloric, And Pablo Sig/Chris S tart time Last Medication Dose Route Stop Time Status Admi n Dextrose/Sodium 1,000 ML ASDIR 08/07 2029 AC Chl oride IV 09/06 2030 Dextrose/Water 50 ML ASDIR PRN 08/07 2029 CKD IV 09/06 2030 Sodium Bicarbonate 50 MEQ ASDIR 08/07 2029 CKD Sterile Water 200 ML IV 09/06 2030 Sodium Chlori de 852.27 ML ONCE ONE 08/07 2029 DC IV 08/07 2030 Sodium Chloride 1,000 ML ASDIR 08/07 2029 AC IV 09/06 2030 Sodiu m Chloride 1,000 ML ASDIR 08/07 2029 AC IV 09/06 2030 Sodiu m Chloride 1,000 ML X1ED STA 08/08 1939 DC 08/07 IV 08/07 Hormones And Synthetic Substit Sig/Chris Start mary jo e Last Medication Dose Route Stop Time Status Admin Gl ucagon 1 MG ASDIR PRN 08/07 2029 AC IM 09/06 2030 Insulin Hu man Regular 5.6818 UNIT ONCE ONE 08/07 2029 DC IV 08/07 2030 Insulin Human Regular 100 UNIT ASDIR 08/07 2029 CKD 04/0 9 Sodium Chloride 100 ML IV 09/06 2030 2141 Insulin Human Regular 14 UNIT X1ED STA 08/07 1940 DC 08/07 IV 08/07 Skin And Mucous Membrane Agent Sig/Chris Start time Las t Medication Dose Route Stop Time Status Admin Mup irocin 1 APPLIC BID 08/08 09 AC NASAL 08/12 1701 Free T ext MDM NotesFree Text MDM NotesCritical CareTime Spent (minutes): 80Services Performed Patient management by me, T eduardo spent at bedside, Reviewing test results, Reviewing im aging, Discussing patient care, Documentation in record , Time with fam/surrogateSeparately billable procedures excl uded from time.Patient was critically ill due to: DKA, NST EMIMy treatment and management were:IV fluids, IV insu janki bolus and drip Neuro checks, constant reassessment and monitoring CC Note 1Total critical care time [80] minutes. Total critical care time documented does not include t eduardo spent on separately billed procedures or the services of residents, students, nurses or physician assista nts. I personally saw and examined the patient. I have reviewed all diagnostic interpretations and treatment shravan ns as written. I was present for the ingram portions of a ny proceduresperformed and the inclusive time noted in any critical care statement. Critical care time incl udes patient management by me, time spent at the [facility] ents bedside,time to review lab and imaging results, discussing patient care, documentation in the medical recor d, and time spent with the family or caregiver. Patient Disc harge Departure Vital Signs/ConditionVital SignsFirst Documented: Result Date Time Pulse Ox 100 08/07 1907 B/P 13 6/87 08/07 1907 B/P Mean 103 08/07 1907 O2 Delivery Room a ir 08/07 1906 Temp 36.8 08/07 190 Pulse 89 08/07 1907 Re sp 20 08/07 1906 Last Documented: Result Date Time Pul se Ox 100 08/07 1907 B/P 136/87 / 1907 B/P Mean 103 1907 O2 Delivery Room air 08/07 1906 Temp 36.8 08/07 190 7 Pulse 89 08/07 1907 Resp 20 08/07 1906 All vital signs av ailable at the time of this entry have been reviewed. Condi tion Stable Clinical ImpressionClinical ImpressionPrimary Im pression: NSTEMI (non-ST elevated myocardial infarction)Se condary Impressions: DKA, type 2 Disposition DecisionAdm it Admit Physician Name Parish Rudolph MD )( Admission Acce pts Yes )( Accepted Time 2039 )( Accepted Date 08/07/21 Abhinav l Information will see patient Electronically Sign ed by José Spaulding Jr, MD on 08/07/21 at 2233RPT #:[id number] OF REPORTEDEmergency depart ment alzvke8119-77-12R74:33:00NC.[id number] vailable for patient gikyFVKLRGSXRSSTNE2661-47-42V56:33:2 9 2021-08-07 [id number]:27:[id number] PORFIRIO peterson [facility] 19:27:00 [place] [address] PATIENT NAME: LIZZIE HINKLE ADMIT DA TE: 08/07/21ACCOUNT NO: [id number] ROOM NO: [facility] AGE: 71 REPORT TYPE: eELECTROCARDIOGRAM SEX: F ADMITTING PHYSICIAN:Remberto Rudolph MD ATTENDING PHYSICIAN:Parish Rudolph MD Order:[id number] Reason : Test Date/Time Stamp:[facility] Aug 07 2021 19:27:49Blood Pressure : / mmH GVent. Rate : 087 BPM Atrial Rate : 087 BPM P-R Int : 119 ms QRS Dur : 076 ms QT Int : 371 ms P-R-T Axes : 074 065 059 degrees QTc Int : 447 ms Sinus rhythmProbable left atrial enlargementMinimal ST depression, anterolateral leads Confirmed by MD Kasie, Bal ([id number]) on 08/10/19 22 8:33:23 AM Referred By: Self Referred Confirmed by:Bal Ferro MD Electronically Signed by Bal Ferro MD on at [address] [place] [address] PATIENT NAME: DANNY HINKLE .[id number] le for patient [id number]:3 4:32 2021-04-09 [id number]:08:[id number] PORFIRIO peterson [facility] 04:08:00 [place] [address] PATIENT NAME: DANIELE HINKLE ADMIT D ATE: 04/06/21ACCOUNT NO: [id number] ROOM NO: [facility]31 01 AGE: 70 REPORT TYPE: eELECTROCARDIOGRAM SEX: F ADMITTING PHYSICIAN:Fadumo Fay MD ATTENDING PHYSICIAN:Erasmo spann MD Order:[id number] Reason : NSTEMI Test Landen e/Time Stamp:MonApr 09 2021 04:08:10Blood Pressure : * / mmHGVent. Rate : 075 BPM Atrial Rate : 073 BPM P -R Int : 117 ms QRS Dur : 070 ms QT Int : 386 ms P-R-T Ax es : 082 049 030 degrees QTc Int : 432 ms Sinus rhythm Co nfirmed by LISY KEENAN MD ([id number]) on 04/10/2021 10:17:13 PM Referred By: Self Referred Confirmed by:LISY KEENAN MD at [address] [place] [address] PATIENT NAME: GALEN HINKLE .[id number] le for patient pcrwPKCVXKISIGZHOQ0606-74-50Z61:1 7:45 2021-04-08 [id number] [facility] 17:16:[address] [address] PATIENT NAME: DANIELE HINKLE ADMIT D ATE: 04/06/21ACCOUNT NO: [id number] ROOM NO: TN.31 01 AGE: 70 REPORT TYPE: eELECTROCARDIOGRAM SEX: F ADMITTING PHYSICIAN:Fadumo Fay MD ATTENDING PHYSICIAN:Erasmo spann MD Order:[id number] Reason : NSTEMI Test Landen e/Time Stamp:MonApr 08 2021 17:16:52Blood Pressure : * / mmHGVent. Rate : 084 BPM Atrial Rate : 084 BPM P -R Int : 104 ms QRS Dur : 088 ms QT Int : 380 ms P-R-T Ax es : 066 024 -20 degrees QTc Int : 449 ms Sinus rhythm wi th short PRPossible Inferior infarct , age undeterminedAb normal ECGWhen compared with ECG of 06-APR-2021 12:51,P REVIOUS ECG IS PRESENTConfirmed by LISY KEENAN MD ([id number]) on 04/10/2021 10:08:11 PM Referred By: Self Referre d Confirmed by:LISY KEENAN MD at [address] [place] [address] PATIENT NAME: DANIELE HINKLE .[id number] for patient vqbwUYAASLUXLRSSQI2958-66-75D24:0 8:34 2021-04-08 [id number] [facility] 16:44:00 [place] [address] PATIENT NAME: DANIELE HINKLE ADMIT D ATE: 04/06/21ACCOUNT NO: [id number] ROOM NO: TN.310 1 AGE: 70 REPORT TYPE: eECHO CARDIOGRAM REPORT SEX: F ADMITTING PHYSICIAN:Erasmo spann MD ATTENDING PHYSICIAN:Erasmo Fay MD [id number] [id number] DLTD ECHO 2D W/WO M-MODE [facility] [address] [place] [address] Repor t of EchocardiogramName: DANIELE HINKLE Study Date: 04/08/2021 04:44 PMMRN: [id number] Patient Locatio n: [place].MS3 [place].3101 1Account Number: [id number]: 1950 Gender: FemaleAge: 70 yrs Left Ventricle: Ejecti on Fraction = 50-55%. Left ventricular systolic functionis l ow normal. The left ventricular wall motion is normal. Righ t Ventricle: The right ventricular systolic functi on is normal. Mitral Valve: Calcified mitral apparatus . Pericardium/Pleural: There is no pericardial eff usion. MMode/2D Measurements CalculationsIVSd: 1.1 cm L VIDd: 3.6 cm LVIDs: 2.7 cm LVPWd: 1.1 cm FS: 26.3 %EDV(Teich): 54.5 ml ESV(Teich): 25.9 mlEF(Teich): 52.5 % Interpretation SummaryT he left ventricular wall motion is normal.Ejection Fract ion = 50-55%.No regional wall motion abnormalities.The right ventricular systolic function is normal. [facility] [address] [place] [address] PATIENT NAME: DANIELE HINKLE There is no pericardial effusion. Electronically read by:Andreina Oliva MD 04/08/2021 06:55 PMOrdering Physician: Andreina OlivaReferrlior Physician: Winter Holguin By: Luanne Craig at [address] [facility] [address] [place] [address] PATIENT NAME: DANIELE HINKLE :55: 00NC.[id number] for patient qpscRIZXYIPHYHSYCO1350-99-51H67:55:56 2021-04-07 [id number]:20:[id number] [facility] Cl[facility] peterson [facility] 09:20:00 [facility] [address] [facility] [address] PATIENT NAME: DANIELE HINKLE ADMIT D ATE: 04/06/21ACCOUNT NO: [id number] ROOM NO: TN.31 AGE: 70 REPORT TYPE: eECHO CARDIOGRAM REPORT SEX: F ADMITTING PHYSICIAN:Erasmo spann MD ATTENDING PHYSICIAN:Erasmo Fay MD [id number] ECHO2 DDOP ECHO 2D COMPLETE W/CF DOP [facility] [address] [place] [address] Report o f EchocardiogramName: DANIELE HINKLE Study Date: 04/07/2021 09:20 AMMRN: [id number] Patient Locatio n: TN.ICU TN.IC04 AAccount Number: [id number]: 1950 Gender: FemaleAge: 70 yrs Left Ventricle: The le ft ventricle is normal in size. There is normal leftventricular wall thickness. Left ventricular systolic function is normal.Ejection Fraction = 55-60%. T he transmitral spectral Doppler flow pattern isnorm al for age. The left ventricular wall motion is normal. Righ t Ventricle: The right ventricle is normal in size and function. The rightventricular systolic function is normal. Atria: The left atrial size is normal. Right atr ial size is normal. Theinteratrial septum is intact with no evidence for an atrial septal defect. Mitral Valve: The m itral valve is normal. There is mild mitral regurgitation. T ricuspid Valve: The tricuspid valve is normal. There is m ild to moderatetricuspid regurgitation. Right ventricul ar systolic pressure is mildlyelevated. RVSP30.5 mmHg. Aorti c Valve: The aortic valve is trileaflet. No aortic regurg itation ispresent. Pulmonic Valve: The pulmonic valve le aflets are thin and pliable; valve motionis normal. Mild to moderate pulmonic valvular regurgitation. Pericardium/Ple ural: There is no pericardial effusion. [facility] [address] [facility] [address] PATIENT NAME: DANIELE HINKLE 96 MMode/2D Measurements CalculationsIVSd: 0.89 cm LVIDd: 3. 5 cm LVIDs: 2.8 cm LVPWd: 1.0 cm FS: 17.8 % Ao root diam: 2.8 cmEDV(Teich): 49.2 mlESV(Teich): 30.5 ml Ao root area: 6.1 cm2EF(Teich): 37.9 % LVOT diam: 1.6 cm LVOT area: 1.9 cm2 Doppler Measurements CalculationsMV E max joana: 8 2.2 cm/sec MV dec slope: 782.8 cm/sec2MV A max joana: 62.9 cm /sec MV dec time: 0.10 secMV E/A: 1.3 Ao V2 max: 118.2 cm/sec LV V1 max P.0 mmHgAo max P.6 mmHg LV V1 mean P.1 mmHgAo V2 mean: 66.9 cm/sec LV V1 max: 86.9 cm/secAo mean P.3 mmHg LV V1 mean: 47.1 cm/secAo V2 VTI: 21.6 cm L V V1 VTI: 14.1 cmAVA(I,D): 1.3 cm2 BRITTANIE(V,D): 1.4 cm2 MR max joana: 490.6 cm/sec SV(L VOT): 27.1 mlMR max P.3 mmHg PI end-d joana: 113.9 cm/sec TR max joana: 209.6 cm/sec TR max P.5 mmHg RVSP(TR): 30. 5 mmHg RAP systole: 10.0 mmHg RVSP. : 27.6 mmHg I WMSI = 2.00 % Normal = 0 Segments SizeX - Olivier ot 2 - 4 - 1-2 smallInterpret 1 - Normal Hypokinetic 3 - Ak inetic Dyskinetic 3-5 moderate5 - 6-14 largeAneurysmal 15-16 diffuse [place] [address] [address] [facility] [address] PATIENT NAME: DANIELE HINKLE Int erpretation SummaryThe left ventricle is normal in size. The re is normal left ventricular wallthickness. Left vent ricular systolic function is normal. Ejection Fraction = 55-60%. The transmitral spectral Doppler flow pattern is nor mal for age. Theleft ventricular wall motion is normal.T he right ventricle is normal in size and function. The ri ght ventricularsystolic function is normal.The rey l valve is normal. There is mild mitral regurgitation.There is mild to moderate tricuspid regurgitation.Right ventricul ar systolic pressure is mildly elevated.RVSP30.5 mmHg.Mild t o moderate pulmonic valvular regurgitation.There is no hailey cardial effusion. Electronically read by:MD Noelle Keenan MD 04/08/2021 10:00 AMOrdering Physician: Calvin SegalReferrlior Physician: Referred, SelfPerform ed By: Luanne Craig at [address] [facility] [place] [address] PATIENT NAME: DANIELE HINKLE :00: 00TN.[id number] for patient qwxsBIYGZHZVTAJCNX2786-71-17Y51:04:06 2021-04-07 [id number]:57:[id number] [facility] Claudio peterson [facility] 08:57:[address] [address] PATIENT NAME: DANIELE HINKLE ADMIT D ATE: 04/06/21ACCOUNT NO: [id number] ROOM NO: TN.310 1 AGE: 71 REPORT TYPE: CONS ULATION SEX: F ADMITTING PHYSICIAN:Erasmo Fay ATTENDING PHYSICIAN:Erasmo Fay MD CONSULTATION D ATE: 04/07/2021 CONSULTING PHYSICIAN: Calvin frias MD REASON FOR CONSULTATION: Elevated troponin. HIST ORY OF PRESENT ILLNESS: Ms. Daniele Hinkle, who has kno wn history ofdiabetes mellitus, is a 70-year-old female wit h type 1 diabetes mellitus, knownhistory of coronary chace ry disease, myocardial infarction in the past along withhype rtension, etc., was admitted primarily with what appears t o be sepsis,pneumonia, and diabetic ketoacidosis. She has no chest pains, etc. She hasbeen complaining of cady rtness of breath, generalized weakness, fatigue, andthese symptoms are progressively getting worse. Finally, EMS wa s called and herblood sugars were very high and family in dicated that she was not taking hermedications right. Th e patient was brought into the ICU where she has beenrecei ving treatment for pneumonia and diabetic ketoacidosi s. Her troponins areelevated as well. The patient is qu ite lethargic. Denies any chest pain,syncopal spell, loss of consciousness, etc. PAST MEDICAL HISTORY:1. Know n history of coronary artery disease, myocardial infarctio n in the past,details are unknown to me at the moment.2. History of insulin-dependent diabetes mellitus.3. History o f hypertension.4. Dyslipidemia. SOCIAL HISTORY: Th ere is no recent history of tobacco, alcohol, or drug abus e. FAMILY HISTORY: Negative for premature coronary artery disease. REVIEW OF SYSTEMS: The patient is quite lethargi c, weak. I am unable to obtainany review of systems from th e patient. She is seen in the ICU. PAST SURGICAL HISTORY: I ncludes hysterectomy and retinal surgery. PHYSICAL EXAMINATION:GENERAL: She is lethargic; however, arousable.VITAL SIGNS: Her blood pressure 123/75 , heart rate 87 and regular, normaltemperature and respi ratory rate.HEENT: There is no evidence of xanthelasmas on eye exam. Pupils are equal andreactive.NECK: Jugular venous pressure is mildly elevated. Carotid upstroke is 2+ PATIENT NAME: DANIELE HINKLE 89 without carotid bruits. There is no evidence of lymphade nopathy or thyromegaly. No evidence of clubbing or cyanosis .LUNGS: Show coarse crackles bilaterally.HEART: Regular rate and rhythm. I do not appreciate S3 gallop or loudreg urgitant or stenotic murmur.ABDOMEN: Soft, nontender. Bowel sounds are positive. No evidence ofvisceromegaly or abdomin al bruits.EXTREMITIES: Distal pulses are equal in f emoral and dorsalis pedis. Noevidence of significant depend ent edema or varicosity. No evidence of clearkyphosis or scoliosis.NEUROLOGIC: Again, a detailed neurolog ic exam cannot be done with her mentalstatus. LABORATORY DATA: Shows this morning, her sodium is 142, potassium has come downto 3.5, her creatinine of 1.6, and BUN is 41 . Her blood sugars initially weremore than 600s, now it has come down 130s or so. Her troponin was seemed to beelevate d at initially 133 and then 563. These are high sensi tivity troponins. WBC count is 14.2, hemoglobin 9.4, he matocrit 27.8, platelet count of 214. IMPRESSION:1. [place] sarah beth troponin, vdz-CI-tsdunjrvg myocardial infarction , question demandischemia with diabetic ketoacidosis and un derlying bilateral pneumonia.2. Known history of coronary artery disease, previous history of myocardialinfarctio n, stents, etc.3. History of hypertension.4. Dyslipidemia. RECOMMENDATIONS: At this point, from cardiac sta ndpoint, I will obtain anechocardiogram. This will evaluate left ventricular systolic function, etc. She needs to be on an aspirin as well as Lovenox, we will start her on that fornow. I will review all above and adjust cardi ovascular medications asnecessary. We will place her on in itial medical therapy and go from there. We will follo w with you. Once again, as always, thanks a lot for allowing myself, Dr. Avalos, Dr. Burks,Dr. Bernal, Dr. Keenan as wel l as Dr. Cano to participate in the care of nuzhate patient. Dictated By: Calvin Lopez MD WT: CON:NC.BAO/DIO./NTSDD: 04/07/2021 08:57:45DT : 04/07/2021 09:54:39Conf#: [id number]/DID#: [id number] Authenticated by Calvin Lopez MD On 05/10/2021 03:52:58 PM at 0352 PATIENT NAME: DANIELE HINKLE :54:00NC. [id number] for patient [id number]:53:34 2021-04-06 [id number] [facility] 19:13:[address] [address] PATIENT NAME: DANIELE HINKLE ADMIT D ATE: 04/06/21ACCOUNT NO: [id number] ROOM NO: NC.310 1 AGE: 70 REPORT TYPE: ANGELU LATJOSE J SEX: F ADMITTING PHYSICIAN:Erasmo Fay MD ATT ENDING PHYSICIAN:Erasmo Fay MD CONSULTATION DA TE: 04/06/2021 CONSULTING PHYSICIAN: Brad huertas MD ADMITTING PHYSICIAN: Erasmo Fay MD REASO N FOR CONSULTATION: Diabetic ketoacidosis, shortness o f breath. HISTORY OF PRESENT ILLNESS: The patient is a 70- year-old lady, medical historysignificant for type 1 diab etes mellitus, coronary artery disease, history ofmyo cardial infarction, hypertension, diabetic neuropathy, retinopathy,hyperlipidemia, basically according to the family, the patient has beenfatigued, tired, cady rt of breath, generalized weakness for several days an d thesymptoms were getting progressively worse. EM S was called. Blood sugar wasvery high, and according to the family, patient may not be taking hermedications properly. In the Emergency Room, she is very lethargic, ar ousable,but not answering appropriately at this time. Breath ing comfortably. I couldnot get any information from the patient. PAST MEDICAL HISTORY: As mentioned laury vaughn PAST SURGICAL HISTORY: She had a hysterectomy, retina l surgery. SOCIAL HISTORY: She is a former smoker. No alcoh ol use. ALLERGIES: ALLERGIC TO CODEINE, LISINOPRIL. REVI EW OF SYSTEMS: Unable to obtain. FAMILY HISTORY: Nonco ntributory at this time. CURRENT MEDICATIONS: She is on ins ulin drip, potassium, glucagon p.r.n. PHYSICAL EXAMINATION: VITAL SIGNS: Are not even recorded anywhere on the [facility] rt.HEENT: Oral mucosa is dry.NECK: Supple.HEART: S1 and S2 heard. No murmurs heard.LUNGS: Air entry is fair, bilatera lly symmetrical. Lungs are clear.ABDOMEN: Soft, nont trent. Bowel sounds present.EXTREMITIES: Trace pedal ed venancio. No calf tenderness.NEUROLOGIC: Very lethargic, arou sable, moving all 4 extremities. PATIENT NAME: Parag HINKLE DIAGNOSTIC DATA: T he chest x-ray, mild diffuse interstitial prominence, cou ldbe edema versus infection. LABORATORY DATA: Sodium is 133 , potassium 4.6, bicarbonate is 12. Glucose 647,anion gap 28 , BUN is 40, creatinine 1.8. BNP is 337. CPK 311. CK-MB 6 .9. Lactic acid 3.1. Troponin 563. WBC 10.9, hemoglobin 11. 5, platelets of 235. COVID test was negative. IMPRE SSION:1. Bilateral pneumonia.2. Diabetic ketoacidosis.3. Metabolic encephalopathy.4. Elevated troponin.5. Possible volume overload.6. History of hypertension.7. History o f type 1 diabetes mellitus.8. History of coronary artery disease. PLAN:1. Respiratory recinos, the patient is on room air, breathing fairly well.2. Blood cultures. Empiric antibiotics.3. Diabetic ketoacidosis protocol.4. IV insulin drip protocol.5. IV fluids per the protocol.6. M onitor respiratory status. Monitor urine output, electr olytes.7. If neuro status does not improve in next few claudio rs, we will consider CT ofthe head without contrast.8. Tropo nins are elevated. Plans per primary physician. Recommend cardiologyconsultation. The patient will be admi tted to the ICU for close monitoring. Dictated By: Brad Davalos MD WT: CON:NC.HIM/CHARLY/NTSDD: 04/06/2021 19:13:01D Conf#: [id number]/DID#: [id number] Authenticated by Brad Davalos MD On 05:46:15 PM at 0546 PATIENT NAME: DANIELE HINKLE :39:00NC. [id number] for patient [id number]:46:48 2021-04-06 [id number] [facility] 12:51:[address] [address] PATIENT NAME: DANIELE HINKLE ADMIT D ATE: 04/06/21ACCOUNT NO: [id number] ROOM NO: TN.IC0 4 AGE: 70 REPORT TYPE: eELECTROCARDIOGRAM SEX: F ADMITTING PHYSICIAN:Fadumo Fay MD ATTENDING PHYSICIAN:Erasmo spann MD Order:[id number] Reason : Test Date/Time Stamp:MonApr 06 2021 12:51:11Blood Pressure : / mmH GVent. Rate : 098 BPM Atrial Rate : 099 BPM P-R Int : 119 ms QRS Dur : 087 ms QT Int : 356 ms P-R-T Axes : 084 074 055 degrees QTc Int : 455 ms Sinus rhythmProbable LVH with secon leticia repol abnrmST depression, consider ischemia, diffuse l ds Confirmed by ROBERT BERNAL MD ([id number]) on 04/07/2021 8:14:49 PM Referred By: Self Referred Confirmed by:ROBERT BERNAL MD at 2014 [facility] are [facility] [address] [facility] [address] PATIENT NAME: DANIELE HINKLE .[id number] le for patient [id number]:4 9:30 2021-04-06 [id number]:28:[id number] [facility] 12:28:00 [facility] ([facility])EMERGENCY PROVIDER REPORTREPORT#:[id number] REPORT STATUS: SignedDAT E:04/06/21 TIME: 1228 PATIENT: DANIELE HINKLE UNIT #: [id number]#: [id number] ROOM: [facility] D: 3AGE: 70 SEX: F PCP PHYS: Erasmo Fay AUTHOR: Gray Marvin MD * ALL edits or amendments must be made on the electronic/computer document * HPI-F ever GeneralInitial Greet Date/Time 04/06/21 1220 PresentationChief Complaint Fever, intermittent) ( Onset Occurred Days agoSymptom Duration Waxes and wanesProgression since Onset Waxes and wanesLoca tion HeadQuality FullnessRadiation Does not radiate F ree Text HPI NotesFree Text HPI NotesPatient with a histo ry of renal dysfunction diabetes presenting with generalized weakness fatigue appears short of breath. Symptoms for th e past several days, progressively worsening, EMS was c genaro, they noted elevated blood glucose levels family suspe cts she may not have been taking her medications, also noted patient to be breathing fast, patient denies cough chest pa in abdominal pain vomiting diarrhea other symptoms Review of Systems Free Text ROS NotesFree Text ROS NotesConstitutional: no chills, no fever, report s generalized weakness fatigueEyes: no blurry visi on, no visual changesENTM: no sore throat, no ear painR espiratory: no cough, reports shortness of breathCardiovascu lar: no chest pain, no palpitationsGastrointestinal: no abdominal pain, no diarrhea, no nausea, no vomiting, no constipationGenitourinary: no dysuria, no hematu yamile, no flank painMusculoskeletal: no back pain, no extr emity swellingPsychiatric: no anxiety, no depressed thoughtsNeurological: no dizziness, no headache Past Medical History - AdultStated Complaint HYPOGLYCEMIAAllergiesCoded Allergies:codeine (In termediate, RASH-HIVES 08/10/20)lisinopril (Intermediate, RA SH-RAISED 08/10/20) Home MedicationsActive ScriptsIsosorbi de Mononitrate Sr (Imdur) 90 MG PO DAILY Isosorbide Mononitrate Sr (Imdur) 90 MG PO DAILY #90 TAB Re f 3 Prov: 08/12/20Ranolazine Er (Ranexa) 1,000 MG PO Q12HR Ranolazine Er (Ranexa) 1,000 MG PO Q12HR #180 TAB Prov: 08/12/20Gabapentin (Neurontin) 300 MG PO BEDTIME Gabapentin (Neurontin) 300 MG PO BEDTIME #90 CAP Prov: 08/12/20Losartan (Cozaar) 25 MG PO DAILY Losarta n (Cozaar) 25 MG PO DAILY #90 TAB Prov: 08/12/20 Reported MedicationsMetoprolol Succ Xl (Toprol Xl) 25 MG PO DAILY Nitroglycerin (Nitrostat) 0.4 MG SL Q5M PRN CHES T PAIN Ezetimibe (Zetia) 10 MG PO DAILY [Free Text Medi cation] 1 GRAM PO DAILY Insulin Glargine (Lantus) 24 UNITS SUBQ QAM Clopidogrel Bisulfate (Plavix) 75 MG PO DAILY [F ree Text Medication] Insulin Lispro (Humalog) Aspirin 81 MG PO BEDTIME polyethylene glycoL 3350 (Miralax) 1 PKT PO DAILY Pt reports no significant: Family history, Socia l historyPast Medical History:Reports: Coronary ar charlie disease, Diabetes mellitus, Hypertension. Additi onal Medical HistoryMI Neuropathy Visual ImpairmentPt reports no Fam Hx pert to chief complaint.Alcohol Use Alcoh ol use (former)Drug Use Denies recreational drugs Physi abhinav Exam Vital SignsReview of Vital Signs Reviewed Focuse d PEGeneral/Const General/Const Awake, Alert, N o acute distressMS Neck Neck Atraumatic, SuppleResp/C hest Respiratory/Chest Atraumatic, No respiratory dis tress, No retractionsCardiovascular Cardiovascular Hear t rate NL, Peripheral circulation NLSkin Skin Atraumatic , Color NL, No rash, Warm, DryNeurologic Neurologic Orien sarah beth X3, Speech NL, No motor deficits, CN II - XII intact Free Text PE NotesFree Text PE Notes HEENT: normocephalic, atraumatic, EOMI, nonicteric, moist mucous membr anes, normal external ENT inspectionGastrointestinal: abdomen nondistended, atraumaticMusculoskeletal: normal inspection, no swellingNeurologic: awake, alert, verbal spea shereen in full sentences, moving all extremitiesPsychiatri c: normal mood, normal affect Interpretation Diagnostics L ab Results InterpretationResultsLaboratory Tests 04/06/21 1237:[Embedded Image Not Available]Laboratory Te sts: 04/06 04/06 04/06 1237 1237 1237 Chemistry Sodium (135 - 145 mmol/L) 133 L Potassium (3.5 - 5.1 mmol/L) 4.6 C hloride (98 - 107 mmol/L) 97 L Carbon Dioxide (21 - 32 mmol/ L) 12 L Anion Gap (2.0 - 16.0) 28.6 H BUN (4 - 23 mg/dL) 40 H Creatinine (0.6 - 1.5 mg/dL) 1.8 H Glomerular Fi ltr Rate (>60 ml/min) 36 L BUN/Creatinine Ratio (12.0 - 2 0.0) 22.2 H Glucose (65 - 99 mg/dL) 647 *H Calcium (8.5 - 10 .1 mg/dL) 9.0 Total Bilirubin (0.2 - 1.2 mg/dL) 0.5 Direct Bilirubin (0.0 - 0.3 mg/dL) 0.2 Indirect Bilirubin (0.0 - 0.8 mg/dL) 0.3 AST (15 - 37 U/L) 31 ALT (6 - 50 U/L) 33 Tot al Alk Phosphatase (45 - 117 U/L) 112 Troponin I High S ens (0 - 53 pg/mL) 133 *H B-Natriuretic Peptide (0 - 100 pg/ mL) 337 H Total Protein (6.4 - 8.2 g/dL) 7.8 Albumin (3.4 - 5.0 g/dL) 3.7 Globulin (2.3 - 3.5 g/dL) 4.1 H Triglyceride s (0 - 149 mg/dL) 124 Cholesterol (0 - 200 mg/dL) 273 H LDL Cholesterol Measurd (0 - 100 mg/dL) 141 H HDL Ch olesterol (40 - 60 mg/dL) 88 H Cholesterol/HDL Ratio (1 - 6) 3 Amylase (25 - 115 U/L) 46 Lipase (73 - 393 U/L) 84 Hematology WBC (4.5 - 11.0 10 3/uL) 10.9 RBC (3. 50 - 5.50 10 6/uL) 3.89 Hgb (12.0 - 16.0 g/dL) 11.5 L Hct (37.0 - 55.0 %) 35.0 L MCV (81 - 102 fL) 90 MCH (26.0 - 34.0 pg) 29.6 MCHC (31.0 - 37.0 g/dL) 32.9 RDW (11.6 - 14 .4 %) 14.8 H Plt Count (150 - 400 10 3/uL) 235 MPV (9.0 - 1 2.6 fL) 11.5 Neut % (Auto) (33.0 - 76.0 %) 82.6 H Lymph % (Auto) (14.0 - 56.4 %) 10.2 L Lanier % (Auto) (0.0 - 12.9 %) 5.3 Eos % (Auto) (0.0 - 7.0 %) 0.0 Baso % (Auto) (0 - 2.0 %) 0.5 Neut # (Auto) (1.5 - 7.0 10 3/uL) 9.01 H Ly mph # (Auto) (1.50 - 4.00 10 3/uL) 1.11 L Lanier # (Auto ) (0.20 - 0.80 10 3/uL) 0.58 Eos # (Auto) (0.0 - 0.5 10 3/ uL) 0.00 Baso # (Auto) (0.0 - 0.1 10 3/uL) 0.05 Abs Immat Gran (auto) (0.000 - 0.100 x10 3/uL) 0.150 H Immature Gran % (0.0 - 1.0 %) 1.4 H Nucleated RBC % (0 - 0.2 %) 0.0 04/06 04/06 1238 1327 Chemistry POC Glucose (65 - 99 m g/dL) > 600 *H Serum Osmolality (278 - 305 mOsm/kg) 342 H Mi crobiology: Date/Time Procedure - Status Source Growth 04/06 1503 MRSA Screen - COLB NASAL 04/06 1237 Blood Culture - R INTEGRATION ARCHITECT BLOOD 04/06 1223 Blood Culture - COLB BLOOD Recent Impressions:RADIOLOGY - XR CHEST 1 V 04/06 1235* Report Impression - Status: SIGNED Entered: 04/06/2021 1301 IMPRESSION: 1. There is mild diffuse interstitia l prominence. This could berelated to edema or inf ection. Please correlate clinically.Impression By: Carlos CALHOUN - Randal Irizarry MD Lab Imaging StatementLaborator y radiographic studies reviewed and considered in the medical decision-making. ECG #1 InterpretationDate 04/06Time 1251Interpreted by and reviewed by me, ED physic ianNL ECG Interpretation Normal rate, Normal sinus rhythm, No acute ischemic changes, No STEMI, Normal axis, Normal intervalsRate 98ECG Q-T-ST - OR Non-specific ST changes Re-Evaluation MDM Free Text MDM NotesFree Text M DM NotesPatient with generalized weakness fatigue. Short of breath and elevated glucoselevelsAssess for acut e emergent cardiopulmonary metabolic infectious processes l abs EKG chest x-ray empiric antibiotic Re-Evaluation/ProgressRe-Evaluation/Progress Sesar t/Dict NoteNo new symptoms vital signs stable no acute distress POC glucose greater than 600, serum glucose 647, anion gap 28, bicarb 12Findings indicative of diabetic ket oacidosis, insulin drip orderedLactic acid 3.8, chest x-ray interstitial prominence edema versus infection, antibiotics orders as noted Given need for insulin drip will need ICU endorsed to provider on-call for pulmonary Also endorsed to PCP Dr. Fay will admit to their service Re sults diagnosis treatment plan discussed with patient, agreeable to further hospitalization Time of Re-Eval 1530 Re-Eval Status Improved ED CourseMedication(s) OrderedMe dication(s) Ordered:Anti-Infective Agents Sig/Chris Start time Last Medication Dose Route Stop Time Status Admin Cef triaxone Sodium 1,000 MG X1ED STA 04/06 1340 DC 04/06 Sod ium Chloride 10 ML IV 04/06 1342 1410 Electrolytic, Caloric, And Pablo Sig/Chris Start time Last Medication Dose Route Stop Time Status Admin Sodium Chloride 10 ML ASDIR IA N 04/06 1515 AC IV 04/07 0302 Lactated Ringer's 1,000 ML X1ED STA 04/06 1502 DC 04/06 IV 04/06 1503 1600 Sodium Ch loride 1,000 ML X1ED STA 04/06 1223 DC 04/06 IV 04/06 1 322 1300 Hormones And Synthetic Substit Sig/Chris Start mary jo e Last Medication Dose Route Stop Time Status Admin Ins ulin Human Regular 100 UNIT ONCE 04/06 1415 CKD 04/06 Sodiu m Chloride 99 ML IV 04/06 2000 1443 Insulin Human Regular 1 00 UNIT X1ED STA 04/06 1350 DC Sodium Chloride 100 ML IV 04/10 1849 Skin And Mucous Membrane Agent Sig/Chris Start mary jo e Last Medication Dose Route Stop Time Status Admin Mup irocin 1 APPLIC BID 04/06 1700 AC NASAL 04/11 0901 Other Sig/Chris Start time Last Medication Dose Route Stop Time Status Admin Sodium Chloride 100 ML .STK-MED ONE 04/06 1409 DC IV Differential DiagnosisDifferential Diagnosis Abs cess, Appendicitis, Bronchitis, Cellulitis, Cholecysti tis, Colitis, Diverticulitis, Encephalitis, Endocardi tis, Endometritis, Enteritis, Epididymitis, Erysipela s, Fasciitis, Influenza, Lymphadenitis, Lymphangiti s, Meningitis, Meningococcemia, MRSA skin infection , Otitis media, Pelvic inflam disease, Pericarditis, Hailey spinal abscess, Pharyngitis: viral, Pneumonia, Prostati tis, Retropharyngeal abscess, Sepsis?, Septic arthrit is, Septic shock?, Severe sepsis?, Sinusitis, Strep throat, Upper resp infection, Urinary tract infection, Viral syndro me Patient Discharge Departure Vital Signs/ConditionVital S ignsAll vital signs available at the time of this entry have been reviewed. Clinical ImpressionClinical Impression Primary Impression: DKA (diabetic ketoacidosis)Secondary Impressions: CKD (chronic kidney disease), [place] sarah beth troponin, Hyperglycemia, SOB (shortness of breat h)Ruled Out Impressions: Abdominal pain, Constipation, Diarr hea, Rash Disposition DecisionAdmit Admit Physician Name Rzasnicki,Erasmo C MD Admit Physician [facility] ist Request Time 1503 Request Date 04/06/21 )( Admission Acc epts Yes )( Accepted Time 1503 )( Accepted Date 04/06/21 Abhinav l Information will see patient, agrees with eval, agrees with plan Discharge/Care PlanCounseled Regarding Diag nosis, Lab results, Imaging studies, Need for admission Adm it NoteI have spoken with the patient and/or caregivers. I have explained the patient'scondition, diagnoses and treatment plan based on the information available to meat this time. I have answered the patient's and/or caregiver's questions and addressed any concerns. The patient and/or c aregivers have as good an understanding of the patient's d iagnosis, condition and treatment plan as can beexpected a t this point. The patient has been stabilized within th e capability ofthe emergency department. The patie nt will be transported for further care and management or w ill be moved to an observation or inpatient service. I have communicated with the staff or medical practitio ner taking over this patient's care. Critical CareTime Spen t (minutes): 50Services Performed Patient manageme nt by me, Time spent at bedside, Reviewing test results, R eviewing imaging, Discussing patient care, Documentation in record, Time with fam/surrogateSeparately billable proce dures excluded from time.Patient was critically ill du e to:Diabetic ketoacidosis, renal dysfunctionMy tr eatment and management were:Rapid assessment stabilization e mergent consultation insulin drip CC Note 1Total critica l care time 50 minutes. Total critical care time documented does not include time spent on separately billed procedur es or the services of residents, students, nurses or physi janet assistants. I personally saw and examined the angel luis aguilar. I have reviewed all diagnostic interpretations and treatment plans as written. I was present for the ingram port ions of any proceduresperformed and the inclusive time noted in any critical care statement. Critical care time incl udes patient management by me, time spent at the kayla ents bedside,time to review lab and imaging results, discussing patient care, documentation in the medical recor d, and time spent with the family or caregiver. CC Note 2The high probability of sudden, clinically significant de terioration in the patient's condition required the highest level of my preparedness to intervene urgently. The services I provided to this patient were to treat and/or prevent cli nically significant deterioration that could result in s evere disability or . Services included the valentine wing: chart data review, reviewing nursing notes and/or old charts, documentation time, technical assistance consultant collaboration reg arding findings and treatment options, medication order s and management, direct patient care, re-evaluations, vital sign assessments and ordering, interpreting and revie wing diagnostic studies/lab tests. Aggregate critical care time was 50 minutes, which includes only time during which I was engaged in work directly related to the patient' s care, as describedabove, whether at the bedside or elsew ere in the Emergency Department. It did not include time sp ent performing other reported procedures or the serv ices of residents, students, nurses or physician assista nts. Electronically Signed by Gray Marvin MD on 04/06 at 1836RPT #:[id number] OF REPORTEDEmergenc y department [id number]:28:00NC.[id number] vailable for patient [id number]:36:4 5 2020-12-22 [id number]:41:00 [facility] 11:41:00 [facility] ER REPORTREPORT#:[id number] REPORT STATUS: SignedDAT E:12/22/20 TIME: 1141 PATIENT: LIZZIE HINKLE UNIT #: [id number]#: [id number] ROOM: BED:AGE: 70 SEX: F PCP PHYS: No Primary or Family PhysicianSERVICE AUTHOR: Jameel Viera MD * ALL edits o r amendments must be made on the electronic/comput er document * HPI-Extremity Prob Upper Free Text HPI NotesFr ee Text HPI Ytssa42-coxc-vdi female past medical history hyp ertension CKD diabetes, presents withleft wrist pain. Had fall on outstretched hand while tripping backwards yeste rday and has had persistent pain and wrist swelling. Able to wiggle fingers, no color change numbness tingling or we akness. Denies syncope, no symptoms preceding her fall w hich was mechanical in nature, describes tripping over fe et. GeneralInitial Greet Date/Time 12/22/20 1121 PresentationChief Complaint Arm problem L Review of Systems Free Text ROS NotesFree Text ROS NotesROS includ es areas listed below and is negative except as stated in the HPI: - CONSTITUTIONAL: fever or chills. - HEENT: change s in vision or hearing. - RESPIRATORY: SOB and cough. - CV: palpitations or CP. - GI: abdominal pain, nausea , vomiting or diarrhea. - : Denies dysuria and urinary fr equency. - SKIN: Denies rash and pruritus. - NEUROLOGICAL: numbness tingling or weakness. - PSYCHIATRIC: hallucinati ons or suicidal thoughts. Past Medical History - AdultS tated Complaint FALL,LEFT WRIST SWELLING,EYE/NECK PAINAllergiesCoded Allergies:codeine (UNKNOWN 09/29/20)lisinopril (UNKNOWN 09/29/20) Home MedicationsActive ScriptsAspirin 81 MG PO DAILY Aspirin 81 MG PO DAILY #90 TAB Prov: 10/02/20Atorvastatin ( Lipitor) 80 MG PO DAILY Atorvastatin (Lipitor) 80 MG PO WILMAN Y #90 TAB Prov: 10/02/20Clopidogrel Bisulfate (Plavix) 75 MG PO DAILY Clopidogrel Bisulfate (Plavix) 75 MG PO DAILY #9 0 TAB Prov: 10/02/20Metoprolol Succ Xl (Toprol Xl) 25 MG PO DAILY Metoprolol Succ Xl (Toprol Xl) 25 MG PO DAILY #9 0 TAB Prov: 10/02/20 Smoking status: Smoking status for kayla ents 13 years old or older: Never SmokerFree Text PMH No tesAs detailed in HPI Physical Exam Vital SignsVital S ignsFirst Documented: Result Date Time Pulse Ox 99 12/22 1 136 B/P 147/79 12/22 1136 B/P Mean 101 12/22 1136 O2 Del christina Room air 12/22 1136 Temp 36.8 12/22 1136 Pulse 94 1136 Resp 20 12/22 1136 Last Documented: Result Date Time Pulse Ox 99 12/22 1136 B/P 147/79 12/22 1136 B/P Mean 101 12/22 1136 O2 Delivery Room air 12/22 1136 Temp 36.8 12/22 1136 Pulse 94 12/22 1136 Resp 20 12/22 1136 Review o f Vital Signs Reviewed Free Text PE NotesFree Text PE No tesPHYSICAL EXAM: - GENERAL: Alert, conversant. No acute dis tress. - EYES: EOMI. Anicteric. - HENT: Moist mucous memb ranes. - LUNGS: Nonlabored breathing. No accessory muscle use. - CARDIOVASCULAR: Regular rate and rhythm. Warm, well-perfused. - ABDOMEN: Soft, non-tender and non-distended. - NEUROLOGIC: Moving extremities spontaneously. - PSYCHIATRIC: Cooperative. Appro priate mood and affect. - MSK: Left wrist with edema and def ormity. Pain forms of motion at the wrist. 2+ radial pul se, detailed dermatomal myotome exam C5-C8 intact, n o overlying skin break. Interpretation Diagnostics Lab Resul ts InterpretationResultsRecent Impressions:RADIOLOG Y - XR ELBOW 2 VIEWS LT 12/22 1223 Report Impression - Status: SIGNED Entered: 12/22/2020 1303 IMPRESSION: 3 vi ews of the left elbow at 12:23 PM show no acute bone,joint or soft tissue abnormality.Impression By: Miracle Mitchell Jr,MDRADIOLOGY - XR FOREARM 2 VIEWS LT 0 12/22 1223 Report Impression - Status: SIGNED Enter ed: 12/22/2020 1304 IMPRESSION: Distal radius and ul carlotta fractures as described.Impression By: Miracle Mitchell Jr,MDRADIOLOGY - XR WRIST 3 + V LT 12/22 1223 Report Impression - Status: SIGNED Entered: 11/30 1302 IMPRESSION: Distal radius and ulnar fractures as described.Impression By: Miracle hernandez Jr,MDRADIOLOGY - XR WRIST 3 + V LT 12/22 1440 Report Impression - Status: SIGNED Entered: 12/22/2020 1508 IMPRESSION: 1. Interval splint placement for the left distal radius and ulnafracture.Impression By: rosana FORMANSI1 - Hector Roach MD Procedures Reduction FractureStart Time 0130Time Spent (minutes) 25Consent/Setup Informe d consent provided, Consent from patientNeurovascular Pre- Procedure Neurologic intact, Vascular intactAnesthetic Met hod/Agent Hematoma block, Lidocaine 1%Amount Needle Type 8 mL, 25g needleFracture Reduction by ED physicianReductio n Method/Location ManipulationType of Immobilizati on Ortho-glassImmobilization Applied by ED physicianPost-Procedure/Complications Improved a lignment, Reduction successful, Toleratedprocedure well Re -Evaluation MDM Free Text MDM NotesFree Text MDM Hhyye87-nvw r-old female with fall on outstretched hand with clini khloe apparent distal forearm fracture. X-ray confirms the above. Patient reduced at bedside under lidocaine hemat jakob block with improvement of alignment on postreduction x -ray. Closed, neurovascularly intact, splinted and dis charged with orthopedic follow-up. ED CourseMedication(s ) OrderedMedication(s) Ordered:Cardiovascular Drug s Sig/Chris Start time Last Medication Dose Route Stop Time Status Admin Lidocaine HCl 10 ML ONCE ONE 12/22 1145 DC 12/22 INFILTRAT 12/22 1146 1511 Central Nervous System Agents Sig/Chris Start time Last Medication Dose Route St op Time Status Admin Ibuprofen 600 MG X1ED STA 12/22 114 1 DC 12/22 PO 12/22 1142 1225 Oxycodone HCl 5 MG X1ED STA 0 12/22 1141 DC PO 12/22 1142 Acetaminophen 650 MG X1ED STA 12/22 1140 DC 12/22 PO 12/22 1141 1225 Local Anesthetics (P arenteral) Sig/Chris Start time Last Medication Dose Route St op Time Status Admin Bupivacaine HCl 30 ML X1ED STA 11/30 4 1141 DC INJ 12/22 1142 Patient Discharge Departure Vital Signs/ConditionVital SignsFirst Documented: Resu lt Date Time Pulse Ox 99 12/22 1136 B/P 147/79 12/22 11 36 B/P Mean 101 12/22 1136 O2 Delivery Room air 12/22 1136 T emp 36.8 12/22 1136 Pulse 94 12/22 1136 Resp 20 12/22 113 6 Last Documented: Result Date Time Pulse Ox 99 12/22 1 136 B/P 147/79 12/22 1136 B/P Mean 101 12/22 1136 O2 Del christina Room air 12/22 1136 Temp 36.8 12/22 1136 Pulse 94 1136 Resp 20 12/22 1136 All vital signs available at the time of this entry have been reviewed. Clinical Impressi onClinical ImpressionPrimary Impression: Distal radius frac sarah leftSecondary Impressions: Fracture of ulnar sty loid Disposition DecisionDischarge )( Discharged to ome Yes )( Time 1512 )( Date 12/22/20 Discharge/Care PlanPa tient Instructions ED Colles Fracture Reduction ...Add itional InstructionsWe pressed the broken bones of your left wrist back into place. You are now in a splint that wi ll hold the bones together while they begin to heal. Please follow-up within a week with an orthopedist in the area fo r repeat exam, they may take the splint off and put you i n a cast or recommend surgery at that time. Return to the em ergency department if you develop worsening pain or issu es withthe splint or blood flow to your hand like numbness tingling or color change. Take Tylenol as needed for pain, k eep the splint clean and dry.ReferralsTee Amador MD Electronically Signed by Jameel Viera MD on at 1854RPT #:[id number] OF REPORTEDEmerchi st. [facility] y department evvgpx8150-10-61Q02:41:00NC.[id number] vailable for patient bsqfLETVKHDOXEMQQN8206-37-78W14:54:1 9 2020-10-05 [id number]:49:00 [facility] 21:49:00 [facility] ([facility])EMERGENCY PROVID ER REPORTREPORT#:[id number] REPORT STATUS: SignedDAT E:10/05/20 TIME: 2148 PATIENT: LIZZIE HINKLE UNIT #: [id number]#: [id number] ROOM: [facility]510E D: 1AGE: 70 SEX: F PCP PHYS: Erasmo Fay AUTHOR: Rafy Sanders MD * ALL edits or amendm ents must be made on the electronic/computer document * HPI-Nausea/Vomit/Diarrhea Free Text HPI NotesFre e Text HPI Fsrep64-zyyz-pmh female with past medical histor y of diabetes presents to the ED for complaint of adrian sea and vomiting with elevated blood sugar, concerning f or DKA. Patient has been having symptoms for the last 2 to 3 days and has worsened. Shedenies any chest pain or sh ortness of breath. Vomiting episodes associated withstomach discomfort. She denies any focal locations of he r pain and describes itas diffuse. No aggravating or reliev ing factors. No other complaints. HPI limited second amador to patient being a poor historian. GeneralInitial G reet Date/Time 09/28/202234 PresentationChief Compla int Nausea, Vomiting, High blood sugar Review of Systems ROS StatementsAll systems rev neg except as marked. Free Text ROS NotesFree Text ROS NotesPertinent positives listed in HPI. ROS negative unless noted in HPI or otherwi senoted below. Constitutional: Denies: Chills, Fever, Le thargy ENT: Denies: earache bilat, nasal congestion, sore th roat Respiratory: Denies: Cough, SOB Cardiovascular: Denies: CP, syncope Skin: Denies: diaphoresis, rash Neur ologic: Denies: LOC, dizziness, focal weakness, REEVES, numb ness GI: Reports: abd pain, nausea, vomiting : Denies: dysuria, hematuria Hematologic: Denies: bleeding, history of bleeding disorder Musculoskeletal: Denies: extre mity swelling, myalgia Psych: Denies: SI, HI. Past M edical History - AdultStated Complaint DKA, N/V, ABD PAINAllergiesCoded Allergies:codeine (UNKNOWN 09/29/20)lisinopril (UNKNOWN 09/29/20) Pt report s no significant: Past surgical history, Family histo ry, Social historyAdditional Medical HistoryDiabetes, hypertensionSmoking status: Smoking status for p atients 13 years old or older: Never Smoker Physical Exam V ital SignsVital SignsFirst Documented: Result Date Ti me Pulse Ox 100 09/29 2239 B/P 120/61 09/29 2239 B/P Mean 80 09/29 2239 O2 Delivery Room air 09/29 2239 Temp 36.7 09/29 2239 Pulse 104 09/29 2239 Resp 19 09/29 2239 Last Documente d: Result Date Time Pulse Ox 96 09/30 51 B/P 124/76 06/0 1 0052 B/P Mean 92 09/29 005 O2 Delivery Room air 09/29 0 052 Pulse 115 09/30 51 Resp 18 09/30 51 Temp 36.7 2239 Review of Vital Signs Reviewed, Vital signs norm al Free Text PE NotesFree Text PE NotesGeneral/Const: Aw cici, Alert, appears uncomfortable. Ill-appearing but not tox ic. HE/ENT: Normocephalic, Atraumatic Eyes: PERRL, E REJI MS Neck: Supple, Full ROM Resp/Chest: Breath sounds NL, Breath sounds = bilat, No resp distress Cardiovascular : Heart rate NL, Regular Rhythm, Heart sounds NLAbd/ GI: soft, mild diffuse abdominal tenderness, no guarding, no re bound MS: inspection NL, full ROM, non-tender Skin: Warm, dry, intact Neurologic: oriented x3, speech NL, no mo tor deficits, no sensory deficits Psych: affect NL, mood NL Interpretation Diagnostics Lab Results InterpretationResultsLaboratory Tests 09/28/202255:[Embedded Image Not Available]Laboratory Te sts: 09/28 0115 Chemistry Sodium (135 - 145 mmo l/L) 130 L Potassium (3.5 - 5.1 mmol/L) 5.4 H Chloride (98 - 107 mmol/L) 94 L Carbon Dioxide (21 - 32 mmol/L) 12 L Anion Gap (2.0 - 16.0) 29.4 H BUN (4 - 23 mg/dL) 55 H Crea tinine (0.6 - 1.5 mg/dL) 2.4 H Glomerular Filtr Rate (>60 ml/min) 26 L BUN/Creatinine Ratio (12.0 - 20.0) 22.9 H Gluc ose (65 - 99 mg/dL) 639 *H Calcium (8.5 - 10.1 mg/dL) 8.6 Magnesium (1.8 - 2.4 mg/dL) 2.4 Total Bilirubin (0.2 - 1.2 mg/dL) 0.5 Direct Bilirubin (0.0 - 0.3 mg/dL) 0.1 Indirect Bilirubin (0.0 - 0.8 mg/dL) 0.4 AST (15 - 37 U/L) 28 ALT ( 6 - 50 U/L) 29 Total Alk Phosphatase (45 - 117 U/L) 124 H Tr oponin I (0.00 - 0.07 ng/mL) 0.09 *H Total Protein (6.4 - 8.2 g/dL) 8.0 Albumin (3.4 - 5.0 g/dL) 3.8 Globulin (2.3 - 3.5 g/dL) 4.2 H Hematology WBC (4.5 - 11.0 10 3/uL) 11.2 H RBC (3.50 - 5.50 10 6/uL) 3.83 Hgb (12.0 - 16.0 g/dL) 11.3 L Hct (37.0 - 55.0 %) 36.3 L MCV (81 - 102 fL) 95 MCH (26.0 - 34.0 pg) 29.5 MCHC (31.0 - 37.0 g/dL) 31.1 RDW ( 11.6 - 14.4 %) 13.1 Plt Count (150 - 400 10 3/uL) 239 Serolo gy SARS-CoV-2 Ag (Rapid) (Negative) NEGATIVE Toxico logy Acetone, Qual (NEGATIVE) LARGE H Lab Imaging StatementLaboratory radiographic studies reviewe d and considered in the medical decision-making. Point of Care TestingBlood Glucose Field fingerstick blood sug ar value: 553 Re-Evaluation MDM Free Text MDM NotesFree Te xt MDM NotesPatient diagnosed with DKA based on labs an d started on IV fluids and insulin drip. She will be admit sarah beth to the ICU for management. Patient Discharge Departure Vital Signs/ConditionVital SignsFirst Documented: Resu lt Date Time Pulse Ox 100 09/29 2239 B/P 120/61 09/28 21 40 B/P Mean 80 09/29 2239 O2 Delivery Room air 09/28 21 40 Temp 36.7 09/29 2239 Pulse 104 09/29 2239 Resp 2239 Last Documented: Result Date Time Pulse Ox 96 2 B/P 124/76 09/29 0052 B/P Mean 92 09/30 51 O2 Delivery Room air 06/01 0052 Pulse 115 06/01 0052 Resp 1 8 09/29 0052 Temp 36.7 09/28 2240 All vital signs availa ble at the time of this entry have been reviewed. Condition Stable Clinical ImpressionClinical ImpressionPrimary Im pression: DKA (diabetic ketoacidosis)Secondary Impressions : Dehydration Disposition DecisionAdmit Admit Audra srinivasan Name MarivelErasmo Rodriguez MD Admit Physician Hospitali [facility] Request Time 001 Request Date 09/29/20 )( Admission Acc epts Yes )( Accepted Time 9 )( Accepted Date 09/29/20 Abhinav l Information will see patient, agrees with eval, agrees with plan Discharge/Care Plan(Auto) PrescriptionsCurr ent Visit ScriptsAspirin 81 MG PO DAILY Aspirin 81 MG PO D AILY #90 TAB Atorvastatin (Lipitor) 80 MG PO DAILY Atorva statin (Lipitor) 80 MG PO DAILY #90 TAB Clopidogrel Bis ulfate (Plavix) 75 MG PO DAILY Clopidogrel Bisulfate (P lavix) 75 MG PO DAILY #90 TAB Metoprolol Succ Xl (Toprol X l) 25 MG PO DAILY Metoprolol Succ Xl (Toprol Xl) 25 MG PO DA JEROME #90 TAB Admit NoteI have spoken with the patient and/or caregivers. I have explained the patient'scondition, diagnos es and treatment plan based on the information availabl e to meat this time. I have answered the patient's and/or caregiver's questions and addressed any concerns. The patien t and/or caregivers have as good an understanding of the patient's diagnosis, condition and treatment plan as can b eexpected at this point. The patient has been stabilized w ithin the capability ofthe emergency department. The patie nt will be transported for further care and management or w ill be moved to an observation or inpatient service. I have communicated with the staff or medical practitio ner taking over this patient's care. Critical CareTime Spen t (minutes): 75Services Performed Patient manageme nt by me, Time spent at bedside, Reviewing test results, R eviewing imaging, Discussing patient care, Documentation in recordSeparately billable procedures excluded fr om time.Patient was critically ill due to:Severe hyperglycemia, diabetic ketoacidosis, severe deh ydrationMy treatment and management were:Continuous IV flui ds, continuous insulin infusion, admission to the [facility] CC Note 1Total critical care time [75] minutes. Total cr itical care time documented does not include time spent on s eparately billed procedures or the services of residents, students, nurses or physician assistants. I personally saw and examined the patient. I have reviewed all diagno stic interpretations and treatment plans as written. I was present for the ingram portions of any procedurespe rformed and the inclusive time noted in any critical care st atement. Critical care time includes patient management b y me, time spent at the patients bedside,time to review lab and imaging results, discussing patient care, docume ntation in the medical record, and time spent with the fami ly or caregiver. at 0135RPT #:[id number] OF REPORTCHRISTUS [facility] department tsykyc0497-49-29S13:49:00NC.[id number] [facility] qlnwQUOFPQNXLGJZUA4912-06-00H06:35:3 9 2020-09-30 [id number]:27:[id number] [facility] 20:27:[address] [address] PATIENT NAME: LIZZIE HINKLE ADMIT D ATE: 09/29/20ACCOUNT NO: [id number] ROOM NO: [place] [address] AGE: 70 REPORT TYPE: OPERA TIVE REPORT SEX: F ADMITTING PHYSICIAN:Britney Winchester DO ATT ENDING PHYSICIAN:Britney Winchester DO OPERATION DATE: 06/2020 INDICATIONS: A 70-year-old female patient with N STEMI in the setting of DKA. PREOPERATIVE DIAGNOSIS: POST OPERATIVE DIAGNOSIS: PROCEDURES PERFORMED:1. Left heart catheterization.2. FFR of the LAD.3. The 38 delia susan of sedation. SURGEON: ANTI TANK MISSILEMAN: ANESTHESIA: FINDIN GS:1. Opening aortic pressure of 81/35 with the closin g aortic pressure was 68/30. LVEDP was low at 3 mmHg, so she was given 2 L IV fluid bolus and Mynor-Synephrinewas i nitiated at 50 and her final aortic pressure was 112/64.2. S hort normal left main.3. LAD has an ostial 20% stenosis, the n mid two consecutive 60% to 70%calcified tortuous stenosi s, and the FFR across it was 0.81. Distal and apicalLAD seg ments are normal. There is a tiny caliber OM1 with an osti al 70%stenosis and is otherwise normal. There is a medium caliber second diagonalwith an ostial 70% and pr oximal focal 80% stenosis, and is otherwise normal.4. L eft circumflex has normal proximal and distal segmen ts, but the mid segmenthas a long 60% to 70% stenosis. It bi furcates into a tiny caliber normal OM1. There is a mediu m-caliber MOM with the proximal focal 80% stenosis and iso therwise normal. There is a medium-caliber PLOM with a pr oximal long 60%stenosis, and is otherwise normal.5. Augustine R CA has a proximal focal 80% stenosis, then mid focal 95% stenosis,then a distal 100% total chronic occlus ion, and there are extensive collateralsfrom the left cor onary arteries reconstituting a normal large caliber P DA andmedium caliber PLV branch free of disease. CO NCLUSION:1. Ooldxgyw-xi-rtkgna triple vessel CAD.2. RCA 100% chronic total occlusion with hxqr-hd-bzqjx collaterals. PATIENT NAME: LIZZIE HINKLE 8 3. Circumflex, mid 60% to 70% stenosis with MOM 80% stenosis.4. LAD has two consecutive 60% to 70% s tenosis with near significant FFR of0.81. RECOMMENDATION S:1. Evaluation for aortocoronary bypass.2. Aggressiv e hydration.3. Ostial right SFA 80% focal eccentri c stenosis noted on right common femoralangiogram. Laith su further evaluation with the leg arterial ultrasound.4. A ggressive CAD risk factor reduction. PROCEDURE IN DETAIL: Procedure, risks and benefits were discussed with thekaylaen t, all her questions were answered and informed consent was obtained. Sedation was done over 38 minutes using 1 mg of Versed and 12.5 mcg of fentanyl. Arterial access through th e right common femoral artery was obtained usingmodified Seldinger technique and a 5-Central African sheath was placed. A 5- Central African JL4and Tyrone right were advanced over the wir e and selective left and rightcoronary angiograms were obtained in standard projections. Next, pigtail wasadvanc ed over the wire into the left ventricular where EDP was 3 a nd pullbackgradient across the aortic valve was 0. She was given 2 liters IV fluid normalsaline bolus in tw o separate IVs, and because of persistent hypotension, she wasstarted on Mynor-Synephrine, but she kept on mentating wel l. Next, plan was toproceed with LAD FFR. Right common fe moral sheath angiogram was done, followedby exchanging the 5-Central African sheath for a 6-Central African sheath, and the l eft main wasengaged using a CLS 3.[address]. [address] IV [address] ip was initiated after IV bolusand I advanced the Comet wire to the distal LAD. Adenosine IV drip wasinitiated b y protocol and 2 minutes later, the FFR was 0.81. Adenosine drip wasstopped at 2 minutes for the worsening hypote nsion. Final left coronaryangiogram documented no wire tip or guide tip induced complications. Next,guide was removed over the wire and the arteriotomy site was succe ssfully closedusing a 6-Central African Angio-Seal device. The pa tient tolerated the procedure verywell. No immediate complications were noted. Dictated By: Kenneth Dawkins MD WT: OP:NC.BAO/ROYA/NTSDD: 09/30/2020 20:27:0 2DT: 09/30/2020 23:04:47Conf#: [id number]/DID#: [id number] Authenticated by Kenneth Gonzalez MD On 10/01/2020 06:47:40 PM at 1847 PATIENT NAME: LIZZIE HINKLE erative [id number]:04:00NC.[id number] ailable for patient pfxeSHQMXSZZDUNLBL0647-98-49M04:48:10 2020-09-29 [id number]:32:[id number] [facility] HCATN 22:32:00 [place] [address] PATIENT NAME: LIZZIE HINKLE ADMIT DA TE: 09/29/20ACCOUNT NO: [id number] ROOM NO: [place] [address] AGE: 70 REPORT TYPE: eELECTROCARDIOGRAM SEX: F ADMITTING PHYSICIAN:Ra katya Winchester DO ATTENDING PHYSICIAN:Britney Winchester DO Order:[id number] Reason : cp Test Date/Ti me Stamp:MonSep 29 2020 22:32:07Blood Pressure : * / mmHGVent. Rate : 080 BPM Atrial Rate : 080 BPM P -R Int : 102 ms QRS Dur : 076 ms QT Int : 380 ms P-R-T Ax es : 079 065 072 degrees QTc Int : 438 ms Sinus rhythm wi th short PRSeptal infarct , age undeterminedAbnormal ECGW hen compared with ECG of 29-SEP-2020 12:01, (Unconfi rmed)Septal infarct is now presentConfirmed by MD Rosemary, Priyanka ([id number]) on 09/30/2020 11:31:58 PM Re ferred By: Britney Winchester Confirmed by:Fransisca matson, at [address] [place] [address] PATIENT NAME: ILZZIE HINKLE .[id number] 98AVAvailab kane for patient qrlkYTVFIOSBLAQLRP2770-70-17K59:3 2:18 2020-09-29 [id number]:01:[id number] [facility] 12:01:[address] [address] PATIENT NAME: LIZZIE HINKLE ADMIT DA TE: 09/29/20ACCOUNT NO: [id number] ROOM NO: [place].510 4 AGE: 70 REPORT TYPE: eELECTROCARDIOGRAM SEX: F ADMITTING PHYSICIAN:Ra katya Winchester DO ATTENDING PHYSICIAN:Britney Winchester DO Order:[id number] Reason : ELEVATED TROPON IN Test Date/Time Stamp:MonSep 29 2020 12:01:42Blood Pr essure : / mmHGVent. Rate : 089 BPM Atrial Rate : 0 89 BPM P-R Int : 112 ms QRS Dur : 080 ms QT Int : 370 ms P- R-T Axes : 073 075 077 degrees QTc Int : 450 ms Normal sinu s rhythmMinimal voltage criteria for LVH, may be n ormal variantBorderline ECGWhen compared with ECG of 0 29-SEP-2020 00:44,PREVIOUS ECG IS PRESENTConfirmed by Zainab morton MD, Priyanka ([id number]) on 09/30/2020 11:28:18 P M Referred By: Self Referred Confirmed by:Fransisca haney, at [address] [place] [address] PATIENT NAME: LIZZIE HINKLE .[id number] 59AVAvailab for patient qfvoYWKONKNNKNVWEW1750-48-84R65:2 8:37 2020-09-29 [id number]:00:[id number] [facility] 12:00:00 [place] [address] PATIENT NAME: LIZZIE HINKLE ADMIT DA TE: 09/29/20ACCOUNT NO: [id number] ROOM NO: [place].IC0 2 AGE: 70 REPORT TYPE: eECHO CARDIOGRAM REPORT SEX: F ADMITTING PHYSICIAN:Britney Winchester DO ATTENDING PHYSICIAN:Britney Winchester DO [id number] DDOP ECHO 2D COMPLETE W/CF DOP [facility] [address] [place] [address] Report o f EchocardiogramName: LIZZIE HINKLE Study D ate: 09/29/2020 12:00 PMMRN: [id number] Patient Location: [place] [address] AAccount Number: [id number]: 1950 Gender: FemaleAge: 70 yrs Left Ventricle: The le ft ventricle is normal in size. There is normal leftventricular wall thickness. Left ventricular systolic function is normal. Thetransmitral spectral Dopp ler flow pattern is suggestive of impaired LVrelaxation. Ejection Fraction = 60-65%. Right Ventricle: The right ve ntricle is normal size. The right ventricularsystolic funct ion is normal. Atria: The left atrial size is normal. R ight atrial size is normal. Theinteratrial septum is intact with no evidence for an atrial septal defect. Mitral Vincent ve: The mitral valve is normal. There is trace mitral regurgitation. Tricuspid Valve: The tricuspid va lve is normal. There is mild tricuspidregurgitation. RV SP26.2 mmHg. Aortic Valve: The aortic valve is trileafl et. No aortic regurgitation ispresent. Pulmonic Valve: The pulmonic valve leaflets are thin and pliable; va lve motionis normal. There is no pulmonic valvular regurgitation. Pericardium/Pleural: There is no pericardial effusion. MMode/2D Measurements Calculations [address] [address] PATIENT NAME: LIZZIE HINKLE RVDd: 1.7 cm LVIDd: 3.4 cmIVSd: 1.0 cm LVIDs: 1.9 cm LVPWd: 1.0 cm FS: 44.4 % Ao root diam: 2.6 cmEDV(Teich): 47.9 mlESV(Teich): 11.1 ml Ao root area: 5.4 cm2EF(Teich): 76.7 % ACS: 1.8 cm LA dimension: 2.3 cm LVOT diam: 1.7 cmLVOT area: 2 .4 cm2 Doppler Measurements CalculationsMV E max joana: 7 8.6 cm/secMV A max joana: 62.6 cm/sec MV dec slope: 35 9.3 cm/sec2MV E/A: 1.3 MV dec time: 0.22 sec Ao V2 max: 125.0 cm/sec LV V1 max P.2 mmHgAo max P.3 mmHg LV V1 mean P.0 m mHgAo V2 mean: 83.3 cm/sec LV V1 max: 101.5 cm/secAo mean P.0 mmHg LV V1 mean: 67.0 cm/secAo V2 VTI: 23.0 cm L V V1 VTI: 18.2 cm BRITTANIE(I,D): 1.9 cm2AVA(V,D): 1.9 cm2 MR max joana: 311.6 cm/sec SV(L VOT): 43.5 mlMR max P.8 mmHg TR max joana: 172.1 cm/sec RAP systole: 10.0 mmHgTR max P.2 mmHgRVSP(TR): 26.2 mmHg RVSP.: 20.7 mmHg Interpretati on SummaryThere is normal left ventricular wall thi ckness.Left ventricular systolic function is normal.The díaz smitral spectral Doppler flow pattern is suggestive of i mpaired LVrelaxation.Ejection Fraction = 60-65%.There is trace mitral regurgitation.There is mild tricuspid regurgitation.There is no pericardial effusion. [place] [address] PATIENT NAME: LIZZIE HINKLE Elec tronically read by:Kenneth Gonzalez MD 09/29/2020 07:46 PMO rdering Physician: Endy Gonzalez Physician: Referred, SelfPerformed By: Ric Donald Electronical ly Signed by Kenneth Gonzalez MD on 09/29/20 at 1947 [address] [place] [address] PATIENT NAME: LIZZIE HINKLE :46: 00NC.VEE098 [id number] for patient sipmMVRFDQDUQLLKAI8148-45-79F41:47:27 2020-09-29 [id number]:44:[id number] [facility] 00:44:[address] [address] PATIENT NAME: LIZZIE HINKLE ADMIT DA TE: 09/29/20ACCOUNT NO: [id number] ROOM NO: [place] [address] AGE: 70 REPORT TYPE: eELECTROCARDIOGRAM SEX: F ADMITTING PHYSICIAN:Ra katya Winchester DO ATTENDING PHYSICIAN:Birtney Winchester DO Order:[id number] Reason : DKA Test Date/T eduardo Stamp:MonSep 29 2020 00:44:31Blood Pressure : * / mmHGVent. Rate : 106 BPM Atrial Rate : 106 BPM P -R Int : 116 ms QRS Dur : 085 ms QT Int : 334 ms P-R-T Ax es : 086 073 014 degrees QTc Int : 444 ms Sinus tachycard iaProbable left atrial enlargementProbable LVH with seconda ry repol abnrmST depr, consider ischemia, inferior leads Confirmed by MD Rosemary, Priyanka ([id number]) on 11:26:15 PM Referred By: Self Referred Confirmed by:Fransisca Riley, Electronically Keila d by Miguel Riley MD on 09/30/20 at [address] [address] PATIENT NAME: LIZZIE HINKLE .[id number] le for patient [id number]:2 6:46 2020-08-10 [id number]:36:[id number] [facility] 14:36:00 [place] [id number] PATIENT NAME: DANIELE HINKLE ADMIT D ATE: 08/10/20ACCOUNT NO: [id number] ROOM NO: [place] [address] AGE: 70 REPORT TYPE: eELECTROCARDIOGRAM SEX: F ADMITTING PHYSICIAN:Fadumo Fay MD ATTENDING PHYSICIAN:Erasmo spann MD Order:[id number] Reason : Test Date/Time Stamp:MonAug 10 2020 14:36:58Blood Pressure : / mmH GVent. Rate : 067 BPM Atrial Rate : 000 BPM P-R Int : 129 ms QRS Dur : 076 ms QT Int : 397 ms P-R-T Axes : 082 074 072 degrees QTc Int : 419 ms Sinus rhythmAtrial premature comple xConsider left ventricular hypertrophy Confirmed by ROBERT WISE ([id number]) on 08/12/2020 1:52:51 PM Referred By: Self Referred Confirmed by:ROBERT BERNAL MD Electroni khloe Signed by Robert Bernal MD on 08/12/20 at 135 3 [place] [address] PATIENT NAME: DANIELE HINKLE .[id number] for patient [id number]:5 3:18 2020-08-10 [id number]:17:00 [facility] 12:17:00 [facility] ([facility])EMERGENCY PROVID ER REPORTREPORT#:[id number] REPORT STATUS: SignedDAT E:08/10/20 TIME: 1217 PATIENT: DANIELE HINKLE UNIT #: [id number]#: [id number] ROOM: [address] D: 1AGE: 70 SEX: F PCP PHYS: Erasmo Fay MDSERVICE D AUTHOR: Holden Quesada MD * ALL edits or amen dments must be made on the electronic/computer document * HP I-Chest Pain 40 and Over GeneralInitial Greet Date/Time 08/10/20 1217 PresentationChief Complaint Chest painSudde n in Onset? YesOnset Occurred YesterdaySymptom Duration ConstantProgression since Onset Constant Free Te xt HPI NotesFree Text HPI NotesPatient is 70-year-old f nas comes emerge department complaint of chest pain starte d yesterday. Patient states she took a nitroglycer in after having chest pain. Patient states her chest pain is slightly improved but increased this morning. Angel Luis aguilar complained of slight shortness of breath. Patien t states thatchest pain was substernal did not radiate. T here are no alleviating or aggravating factors related to angel luis aguilar's pain. Patient denies other symptoms such as feve r cough or chills. Patient denies any abdominal pain nausea vomiting. There are no sick contacts there is no recent tr gil. Risk-Chest Pain 40 and Over Risk Stratification) ( Coronary Artery Disease Diabetes mellitus, Hypertension, Known CAD Review of Systems ROS StatementsAll systems rev neg except as marked. Basic Review of SystemsBasic ROS EYES : No redness, ENT: No sore throat, : No dysuria/mulugeta quency, HEM: No bleeding/bruising Focused Review of SystemsConstitutionalDenies: Chills, Fatigue, Fe carol, Lethargy, Malaise, Recent wt loss, Weakness - ge neralized. CardiovascularReports: Chest pain. Denies: Dyspn ea on exertion, Edema, Orthopnea, Palpitations, Parox nocturnal dyspnea, Syncope. GIDenies: Abdominal pain, Anor exia, Belching, Bloody/tarry stool, Constipation, Diar lita, Dysphagia, Hematemesis, Hematochezia, Mucousy st ool, Melena, Nausea, Rectal pain, Vomiting. MusculoskeletalDenies: Back pain, Extremity pain , Extremity swelling, Joint pain, Joint swelling, Lumbar tonia n, Myalgia, Neck pain, Thoracic pain. SkinDenies: Abrasion, Abscess, Burn, Contusion, Diaphoresis, Erythema, Itching, Jaundice, Laceration, Rash, Swelling, Ulceration. Neurolog icDenies: Abnormal movement, Bladder dysfunction, Bowel dy sfunction, Change LOC, Confusion, Dizziness, Focal weakness , Generalized weakness, Headache, Lightheaded, Num bness, Problem walking, Seizure, Shaking, Slurred speec h, Spinning sensation, Syncope, Tingling, Unable to speak, V ision change. Past Medical History - AdultStated Compl aint CHEST PAINAllergiesCoded Allergies:codeine (Intermedia te, RASH-HIVES 08/10/20)lisinopril (Intermediate, RA SH-RAISED 08/10/20) Home MedicationsActive ScriptsPolyethy gloria Glycol 3350 (Miralax) 1 PKT PO DAILY Polyethylene Glyco l 3350 (Miralax) 1 PKT PO DAILY #3 PACK Ref 2 Prov: 12/17 Reported MedicationsNitroglycerin (Nitrostat) 0. 4 MG SL Q5M PRN CHEST PAIN Clopidogrel Bisulfate (Plavix) 75 MG PO DAILY Metoprolol Succ Xl (Toprol Xl) 25 MG PO DA JEROME Ezetimibe (Zetia) 10 MG PO DAILY [Vascepa 1 gram capsu] 1 GRAM DAILY Isosorbide Mononitrate Sr (Imdur) 60 MG PO DAILY Insulin Aspart (Novolog Flexpen) Insulin Glargin e (Lantus) 30 UNITS SUBQ QAM Aspirin 81 MG PO BEDTIME Insul in Glargine (Lantus Solostar) [BD Ultra-Fine Esther P] Past Me dical History:Reports: Coronary artery disease, Diabet es mellitus, Hypertension. Physical Exam Vital Sign sVital SignsFirst Documented: Result Date Time Pulse Ox 100 08/10 1230 B/P 167/89 08/10 1230 B/P Mean 115 08/10 1 230 Pulse 80 04 1230 Resp 31 08/10 1230 Last Documented : Result Date Time Pulse Ox 100 04 1334 B/P 156/86 1334 B/P Mean 109 08/10 1334 Pulse 75 08/10 1334 Resp 19 08/10 1334 Review of Vital Signs Reviewed, Vital signs norm al Basic Physical ExamBasic PE HEAD: Atraumatic/NC, EYES: PERRL, conj clear, ENT: Membranes moist, NECK: Supple, EXT: No gross abnormality, SKIN: No rashes, warm/dry, NE URO: alert oriented, NEURO: gross movement NL, PSYCH: NL th ought content Focused PEResp/Chest Respiratory/Ches t Atraumatic, Breath sounds NL, Breath sounds = bi lat, No respiratory distress, No rales, No rhonchi, No w heezing, No retractions, No stridor, No chest tenderness, No chest wall deformity, No crepitusCardiovascular Cardiova scular Heart rate NL, Regular rhythm, Heart sounds NL, No gallop, No murmurs, No rubs, Cap refill not delayed, Per ipheral circulation NL, Pulses = bilaterally, No gross B P differentialAbdomen/GI Abdomen/GI Atraumatic, Soft, Non-tender, McBurney's non-tender, No guarding, No rebound, BS normoactive, No distention, No hernia, No pal pable mass, No pulsatile massMS Back Back Atraumatic, Inspec tion NL, Full range of motion, Painless range of motion, Non-tender, No midline vertebral tend, No paraspinal tendern ess, No muscle spasm, Straight leg raise neg, No CVA ten dernessMS Lower Extrem Lower Ext/Pelvis/MS Atraumatic, Ins pection NL, Full range of motion, No swelling, Non-tender, N o erythema, No deformity, Neurologic intact, Vascular intact , No ligamentous injury, Tendon function NL, No panda rtment syndrome, No circumferential injury, No edema, G ait NL, Pelvis stable, Pelvis non-tenderNeurologic Neuro logic Oriented X3, Speech NL, No motor deficits, No se nsory deficits, CNII - XII intact, Reflexes equal bila t, Cerebellar NL, Memory NL, Gait NL Interpretation Diagnostics Lab Results InterpretationResultsLab oratory Tests 08/10/20 1224:[Embedded Image Not Available]Laboratory Tests: 08/10 08/10 1224 122 4 Chemistry Sodium (135 - 145 mmol/L) 138 Potassium (3.5 - 5 .1 mmol/L) 3.5 Chloride (98 - 107 mmol/L) 106 Carbon Dioxid e (21 - 32 mmol/L) 28 Anion Gap (2.0 - 16.0) 7.5 BUN (4 - 2 3 mg/dL) 23 Creatinine (0.6 - 1.5 mg/dL) 1.1 Glomerular Filt r Rate (>60 ml/min) >=60 max estimate BUN/Creatinine Ratio ( 12.0 - 20.0) 20.9 H Glucose (65 - 99 mg/dL) 131 H Calc ium (8.5 - 10.1 mg/dL) 8.6 Magnesium (1.8 - 2.4 mg/dL) 1.9 Troponin I (0.00 - 0.07 ng/mL) < 0.02 Triglycerides (0 - 1 49 mg/dL) 81 Cholesterol (0 - 200 mg/dL) 209 H LDL Cholest shelby Measurd (0 - 100 mg/dL) 120 H HDL Cholesterol (4 0 - 60 mg/dL) 80 H Cholesterol/HDL Ratio (1 - 6) 3 Hem atology WBC (4.5 - 11.0 10 3/uL) 3.5 L RBC (3.50 - 5.50 10 6 /uL) 3.31 L Hgb (12.0 - 16.0 g/dL) 9.8 L Hct (37.0 - 55.0 % ) 29.7 L MCV (81 - 102 fL) 90 MCH (26.0 - 34.0 pg) 29.6 MCHC (31.0 - 37.0 g/dL) 33.0 RDW (11.6 - 14.4 %) 12.9 Plt C ount (150 - 400 10 3/uL) 203 MPV (9.0 - 12.6 fL) 11.2 Neut % (Auto) (33.0 - 76.0 %) 42.7 Lymph % (Auto) (14.0 - 56.4 %) 38.2 Lanier % (Auto) (0.0 - 12.9 %) 12.4 Eos % (Auto) ( 0.0 - 7.0 %) 5.5 Baso % (Auto) (0 - 2.0 %) 0.9 Neut # (Aut o) (1.5 - 7.0 10 3/uL) 1.49 L Lymph # (Auto) (1.50 - 4.00 10 3/uL) 1.33 L Lanier # (Auto) (0.20 - 0.80 10 3/uL) 0.43 Eos # (Auto) (0.0 - 0.5 10 3/uL) 0.19 Baso # (Auto) (0 .0 - 0.1 10 3/uL) 0.03 Abs Immat Gran (auto) (0.000 - 0.100 x10 3/uL) 0.010 Immature Gran % (0.0 - 1.0 %) 0.3 Nucleate d RBC % (0 - 0.2 %) 0.0 08/10 1404 Serology SARS-CoV-2 Ag (Rapid) (Negative) Negative Recent Impressions:RADIOLOGY - XR CHEST 1 V 08/10 1230 Report Impression - Status: SI GNED Entered: 08/10/2020 1246 Impression: No acute pu lmonary infiltrate.Impression By: [email or web address] - Mark lu MD Lab Imaging StatementLaboratory radiographic deysi dies reviewed and considered in the medical decision- making. ECG #1 InterpretationDate 08/10/20Time 1216Interpret ed by and reviewed by me, ED physicianNL ECG Interpretatio n Normal rate, Normal sinus rhythm, No acute ischemic kelsey nges, No STEMI, Normal QRS, Normal ST waves, Normal T wav es, Normal axis, Normal intervalsRate 67 ECG #2 Interpretat ionDate 08/10/20Time 1436Interpreted by and reviewed by me, ED physicianNL ECG Interpretation #2 Normal rate, N ormal sinus rhythm, No acute ischemic changes, No STEMI, Nor mal QRS, Normal ST waves, Normal T waves, Normal axis, No rmal intervals, No change from prior ECGs, Adequate t racingRate 67 Re-Evaluation MDM Re-Evaluation/Progress #1Re -Eval Status ImprovedPlan Post Re-Eval Plan admit ED CourseMedication(s) OrderedMedication(s) Ordered :Central Nervous System Agents Sig/Chris Start time Last M edication Dose Route Stop Time Status Admin Aspirin 324 MG X1ED STA 08/10 1218 DC PO 08/10 1219 Patient Discharge De parture Vital Signs/ConditionVital SignsFirst Documented : Result Date Time Pulse Ox 100 04 1230 B/P 167/89 1230 B/P Mean 115 08/10 1230 Pulse 80 08/10 1230 Res p 31 08/10 1230 Last Documented: Result Date Time Pulse Ox 100 08/10 1334 B/P 156/86 08/10 1334 B/P Mean 109 08/10 1 334 Pulse 75 08/10 1334 Resp 19 08/10 1334 All vital signs available at the time of this entry have been reviewed. Co ndition Stable Clinical ImpressionClinical ImpressionPri tyra Impression: Angina at rest Disposition DecisionA dmit Admit Physician Name Erasmo Fay MD Admit Phys ician Hospitalist Request Time 1356 Request Date 08/10 )( Admission Accepts Yes )( Accepted Time 1356 )( A ccepted Date 08/10/20 Call Information will see patient, agrees with eval, agrees with plan Discharge/Care PlanC ounseled Regarding Diagnosis, Lab results, Need for admis jamila Admit NoteI have spoken with the patient and/or caregi vers. I have explained the patient'scondition, diagnoses and treatment plan based on the information availabl e to meat this time. I have answered the patient's and/or caregiver's questions and addressed any concerns. The patien t and/or caregivers have as good an understanding of the patient's diagnosis, condition and treatment plan as can b eexpected at this point. The patient has been stabilized w ithin the capability ofthe emergency department. The patie nt will be transported for further care and management or w ill be moved to an observation or inpatient service. I have communicated with the staff or medical practitio ner taking over this patient's care. at 1757RPT #:[id number] OF REPORTEDEmergency depart [facility] [id number]:17:00NC.[id number] vailable for patient [id number]:57:2 6 2019-07-18 [id number]:12:00 [facility] 21:12:00 [facility] ([facility])EMERGENCY PROVID ER REPORTREPORT#:[id number] REPORT STATUS: SignedDAT E:07/18/19 TIME: 2111 PATIENT: DANIELE HINKLE UNIT #: [id number]#: [id number] ROOM: BED:AGE: 69 SEX: F PCP PHYS: Erasmo Fay MDSERVICE DT: 06/29 01/18 AUTHOR: Karo Johnson DO * ALL edits or amendments must be made on the electronic/computer document * HPI-G eneral Illness Free Text HPI NotesFree Text HPI Notes69 y/o female w/ PMHx of DM and kidney disease was brought to the ED via EMS b/cshe took too much insulin. Pt denies weak ness and lightheadedness. EMS states that she normally ta kes 5-6 units of insulin but pt took 24 units at 2000. P t's blood sugar is still very high despite taking all the insulin. She states that she ate a chocolate bar to try t o balance out her insulin levels. Pt and EMS otherwise rep orts no other complaints. GeneralConfirmed Patient YesPa tient Type New patientInitial Greet Date/Time 07/18/19 2100 PresentationChief Complaint __ (Took too much in sulin)Hx Obtained From Patient, EMSSudden in Onset? NoOns et Occurred Today, Just prior to arrivalSymptom Duration Sin ce onsetProgression since Onset IntermittentLocatio n GeneralQuality Unable to verbalize Portions of t his section were scribed by Brissa Contreras on 07/18/19 at 21 55 Review of Systems ROS StatementsAll systems rev neg exc ept as marked. Free Text ROS NotesFree Text ROS NotesConstitutional Denies: Chills, Fever, ENT: Denies: nasal congestion, sore throat Respiratory Denies : Cough, SOB Cardiovascular: Denies: CP, palpitations, ed venancio Skin: Denies: diaphoresis, rash Neurologic: Denies: LO C, REEVES, GI: Denies: abd pain, nausea, vomiting, diarrhea : Denies: dysuria, hematuria Hematologic: Denies: bleeding , bruising Musculoskeletal Denies: back pain, extremity tonai n, neck pain Eyes: Denies: blurred vision bilateral, vis ion loss bilateral Portions of this section were scribed by Brissa Contreras on 07/18/19 at 2155 Past Medical History - AdultStated Complaint BACK/ACCIDENTAL INSULIN OVERDOSEAllergiesCoded Allergies:codeine (Interm ediate, RASH-HIVES 03/14/19)lisinopril (Intermediate, RA SH-RAISED 03/14/19) Home MedicationsActive ScriptsPolyethy gloria Glycol 3350 (Miralax) 1 PKT PO DAILY Polyethylene Glyco l 3350 (Miralax) 1 PKT PO DAILY #3 PACK Ref 2 Prov: 12/17 Reported MedicationsNitroglycerin (Nitrostat) 0. 4 MG SL Q5M PRN CHEST PAIN Clopidogrel (Plavix) 75 MG PO TATIANA LY Metoprolol Succ Xl (Toprol Xl) 25 MG PO DAILY Ez etimibe (Zetia) 10 MG PO DAILY [Vascepa 1 gram capsu] 1 GRAM DAILY Isosorbide Mononitrate Sr (Imdur) 60 MG PO DAILY Insulin Aspart (Novolog Flexpen) Insulin Glargine (Lantu s) 30 UNITS SUBQ QAM Aspirin 81 MG PO BEDTIME Insulin Glargi ne (Lantus Solostar) [BD Ultra-Fine Esther P] Pt reports no s ignificant: Past surgical history, Family historyPast Medica l History:Reports: Diabetes mellitus, Hypertension , Kidney disease/stones (Disease), Dyslipidemia. 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 MS Neck - Supple, Full range of motion Resp/Chest - Breath sounds NL, Breath sounds = bilat, No respiratory distress Cardiovascular - Heart rate NL, Regular rhythm, Heart sounds NL, No gallop, No murmurs, No rubs Abdomen/GI - Soft, Non-tender, No guardi ng, No rebound MS Back - Inspection NL, Full range of m otion, Non-tender Skin - Warm, Dry, Intact Neurologic - Oriented X3, Speech NL, No motor deficits, No sensory def icits Psychiatric - Affect NL, Mood NL Portions of thi s section were scribed by Brissa Contreras on 07/18/19 at 21 55 Interpretation Diagnostics Lab Results InterpretationResultsLaboratory Tests 07/18/192141:[Embedded Image Not Available]Laboratory Te sts: 07/17 2222 2301Chemistry S odium (135 - 145 mmol/L) 137 Potassium (3.5 - 5.1 mmol/L) 3 .5 Chloride (98 - 107 mmol/L) 106 Carbon Dioxide (21 - 32 mm ol/L) 23 Anion Gap (2.0 - 16.0) 11.5 BUN (4 - 23 mg/dL) 2 8 H Creatinine (0.6 - 1.5 mg/dL) 1.6 H Glomerular Fi ltr Rate (>60 ml/min) 41 L BUN/Creatinine Ratio (12.0 - 2 0.0) 17.5 Glucose (65 - 99 mg/dL) 304 H POC Glucose (65 - 99 mg/dL) 309 H 237 H 150 H Calcium (8.5 - 10.1 mg/dL) 8.9 Total Bilirubin (0.2 - 1.2 mg/dL) 0.3 AST (15 - 37 U/L ) 24 ALT (6 - 50 U/L) 25 Total Alk Phosphatase (45 - 117 U/L ) 118 H Total Protein (6.4 - 8.2 g/dL) 7.9 Albumin (3.4 - 5.0 g/dL) 3.7Hematology WBC (4.5 - 11.0 10 3/uL) 4.2 L RBC (3.50 - 5.50 10 6/uL) 3.71 Hgb (12.0 - 16.0 g/dL) 11.1 L Hct (37.0 - 55.0 %) 31.8 L MCV (81 - 102 fL) 86 MCH (26.0 - 34.0 pg) 29.9 MCHC (31.0 - 37.0 %) 34.9 RDW (11.5 - 14.5 %) 12.5 Plt Count (150 - 400 10 3/uL) 197 MPV (9.0 - 12.6 fl ) 10.6 Neut % (Auto) (33.0 - 76.0 %) 54.7 Lymph % (Auto ) (14.0 - 56.4 %) 30.2 Lanier % (Auto) (0.0 - 12.9 %) 7.1 Eo s % (Auto) (0.0 - 7.0 %) 6.8 Baso % (Auto) (0 - 2.0 %) 0.7 Neut # (Auto) (1.5 - 7.0 10 3/uL) 2.32 Lymph # (Auto) ( 1.50 - 4.00 10 3/uL) 1.28 L Lanier # (Auto) (0.20 - 0.80 10 3/ uL) 0.30 Eos # (Auto) (0.0 - 0.5 10 3/uL) 0.29 Baso # (A uto) (0.0 - 0.1 10 3/uL) 0.03 Abs Immat Gran (auto) (0.000 - 0.100 0.020x10 3/uL) Immature Gran % (0.0 - 1.0 %) 0. 5 Nucleated RBC % (0 - 0.2 %) 0.0 07/17 2330 Chemistry POC Glucose (65 - 99 mg/dL) 133 H Lab StatementLaboratory studie s reviewed and considered in the medical decision-making. P ortions of this section were scribed by Brissa Contreras on 0 07/18/19 at 2155 Re-Evaluation [facility] ED CourseMedication(s) OrderedMedication(s) Ordered:Electrolytic, Calor ic, And Pablo Sig/Chris Start time Last Medication Dose Route S top Time Status Admin Sodium Chloride 1,000 ML X1ED STA 0 07/17 2101 DC IV 07/17 2200 Free Text MDM NotesFree Text M DM [id number] patient who accidentally took m ore than her usual insulin today. She was concerned that her glucose would go down too low. Before calling the ambula nce she ate a large Snickers bar. On arrival her glucose was greater [id number]. I gave her 1 L of normal saline. Her in itial blood sugar was 309. After the fluid bolus it came khoa n to less than 250. Believe this is safe for her to be dis charged at this time. She will follow-up with her PCP as ne eded. Strict return precautions given. Patient is aler t and oriented. Portions of this section were scribed by Brissa Contreras on 07/18/19 at 2112 Patient Disch arge Departure Vital Signs/ConditionVital SignsAll vi terra signs available at the time of this entry have been re viewed. Condition Improved, Stable Clinical ImpressionCl inical ImpressionPrimary Impression: Accidental overdos eTime of Impression 234 Disposition DecisionDischarge )( Discharged to Home Yes )( Time 234 )( Date 07/18/19 Discha rge/Care PlanCounseled Regarding Diagnosis, Lab results, Need for follow-up, When to return to ED Discharge NoteI have spoken with the patient and/or caregivers. I have expla ined the patient'scondition, diagnoses and treatment plan based on the information available to meat this time. I h ave answered the patient's and/or caregiver's questi ons and addressed any concerns. The patient and/or careg kiana have as good an understanding of the patient's diagno sis, condition and treatment plan as can beexpected a t this point. The vital signs have been stable. The pat alix's condition is stable and appropriate for discharg e from the emergency department. The patient will pursue fu rther outpatient evaluation with the primary care phys ician or other designated or consulting physician as outl ined in the discharge instructions. The patient and/or careg kiana are agreeable to this planof care and follow-up inst ructions have been explained in detail. The patient and/o r caregivers have received these instructions in w ritten format and have expressed an understanding of e discharge instructions. The patient and/or caregivers are aware that any significant change in condition or worsening of symptoms should prompt an immediate return to hospital for special surgery or the closest emergency department or a call to 911. Q uality MeasuresCurrent Medications Attest: Medication reviewTobacco Screening/Cessation Denies tobacco use Supervising Physician Note Scribe StatementBrissa Goins, 07/18/192154, scribing for and in the presence of [Dr. Johnson].Signed By: Brissa Contreras, 07/18/192154 Provider Scribed StatementI personally performed the serv ices described in this documentation and reviewedthe documentation that was dictated to the scribe(s) in my presence, and it accurately records my words and actions. ElizabethKaro DO, 07/18/19 Portions of this secti on were scribed by Brissa Contreras on 07/18/19 at 2155 Electronically Signed by ElizabethKaro DO on 07/17 at 2346RPT #:[id number] OF REPORTEDEmergenc y department [id number]:12:00NC.[id number] vailable for patient [id number]:46:5 2 2019-04-05 [id number] [facility] 11:44:00 [place] [address] PATIENT NAME: DANIELE HINKLE ADMIT D ATE: 04/05/19ACCOUNT NO: [id number] ROOM NO: [facility]230 4 AGE: 68 REPORT TYPE: eELECTROCARDIOGRAM SEX: F ADMITTING PHYSICIAN:Fadumo Fay MD ATTENDING PHYSICIAN:Erasmo spann MD Order:[id number] Reason : Test Date/Time Stamp:MonApr 05 2019 11:44:15Blood Pressure : / mmH GVent. Rate : 103 BPM Atrial Rate : 102 BPM P-R Int : 000 ms QRS Dur : 081 ms QT Int : 350 ms P-R-T Axes : 090 081 022 degrees QTc Int : 458 ms Sinus tachycardiaBorderline right a xis deviationConsider left ventricular hypertrophyNo nspecific T abnormalities, inferior leads Confirmed by LISY KEENAN MD ([id number]) on 04/07/2019 11:17:20 AM Referred By: lf Referred Confirmed by:LISY KEENAN MD Electronically Sign ed by Lisy Keenan MD on 04/07/19 at [address] [place] [address] PATIENT NAME: DANIELE HINKLE .[id number] le for patient [id number]:1 7:44 2019-04-05 [id number]:17:00 [facility] 11:17:00 [facility] ER REPORTREPORT#:[id number] REPORT STATUS: SignedDAT E:04/05/19 TIME: 1117 PATIENT: DANIELE HINKLE UNIT #: [id number]#: [id number] ROOM: BED:AGE: 68 SEX: F PCP PHYS: Erasmo Fay DT: 10/17 AUTHOR: Karo Johnson DO * ALL edits or amendments must be made on the electronic/computer document * HPI-Nausea/Vomit/Diarrhea GeneralDate/Time Seen by Provider 04/05/19 1054 PresentationChief Complaint Vomiti ng, Abd pain, crampingHx Obtained From Patient, Family, ParamedicOnset Occurred YesterdaySymptom Duratio n ConstantVomiting Vomiting 4-6 episodes Free Text HPI NotesFree Text HPI [id number] female who p resents to the emergency department by EMS with complaint o f nausea vomiting. She was discharged from the hospital y . She was admitted for numbness in the face and le ft arm. She did not receive anyintervention. Her head CT was negative on April 03. Patient not having any numbness o r weakness in that arm or face at this time. She went to [facility] after she was released yesterday she did not take any of her insulin since she was in the hospital. No meds t aken this morning. Spouse states that she has been vomitin g since 2:00 in the morning. Review of Systems ROS State mentsAll systems rev neg except as marked. Basic Review o f SystemsBasic ROS EYES: No redness, RESP: No SOB, CV: No chest pain, : No dysuria/frequency, MS: No ext swelling/pain, HEM: No bleeding/bruising, PSYCH: NL thought content Focused Review of SystemsGIReports: Abdo gabby pain, Diarrhea, Vomiting. Past Medical History - Adult Stated Complaint high BSAllergiesCoded Allergies:codein e (Intermediate, RASH-HIVES 03/14/19)lisinopril (Intermediate, RASH-RAISED 03/14/19) Home MedicationsReported MedicationsMetoprolol Succ X l (Toprol Xl) 25 MG PO DAILY Ezetimibe (Zetia) 10 MG PO DA JEROME [Vascepa 1 gram capsu] 1 GRAM DAILY Nitroglyceri n (Nitrostat) 0.4 MG SL Q5M PRN CHEST PAIN Isosorb lan Mononitrate Sr (Imdur) 60 MG PO DAILY Insulin As part (Novolog Flexpen) Insulin Glargine (Lantus) 30 U NITS SUBQ QAM Past Medical History:Reports: Diabetes melli tus, Hypertension, Kidney disease/stones (Disease), Dyslipidemia. Additional Medical HistoryMINeurop athyVisual ImpairmentAlcohol Use Alcohol use (former)Drug U se Denies recreational drugsSmoking status for patients 13 years old or older: Unknown,if ever smoked Physical Exam V ital SignsVital SignsFirst Documented: Result Date Ti me Pulse Ox 100 12/ 1104 B/P 127/68 12/ 1104 B/P Mean 87 12/06 1104 O2 Delivery Room air 12 1104 Temp 37.0 12 1104 Pulse 102 12/ 1104 Resp 17 12/ 1104 Last Documente d: Result Date Time Pulse Ox 100 12/ 1249 B/P 135/68 12/ 1249 B/P Mean 90 12/ 1249 O2 Delivery Room air 04/05 1 249 Pulse 99 04/05 1249 Resp 16 12 1249 Temp 37.0 12/0 6 1104 Review of Vital Signs Reviewed Basic Physical Ex amBasic PE HEAD: Atraumatic/NC, EYES: PERRL, conj clear, EN T: Membranes moist, NECK: Supple, RESP: No resp dis tress, CV: Reg rate rhythm, EXT: No gross abnormality, SKIN : No rashes, warm/dry, NEURO: alert oriented, NEURO: gross movement NL, PSYCH: NL thought content Focused PEGeneral/Const General/Const Alert Distress/ Hydration Distress mild, Dehydration moderate. Abdomen/GI Abdomen/GI Soft, Non-tender, No rebound, BS norm oactive, No distention Interpretation Diagnostics Lab Result s InterpretationResultsLaboratory Tests 04/05/19 1045:[Embedded Image Not Available] 04/05/19 110 8:[Embedded Image Not Available]Laboratory Tests: 04/05 1045 1054 1108 1116 Blood Gas VBG pH (7.32 - 7.42 pH) 7.16 *L VBG pCO2 (41 - 51 mmHg) 31 L VBG pO2 (2 5 - 40 mmHg) 42 H VBG HCO3 (24 - 25 mmol/L) 11 L VBG O2 Sat (Calc) (70 - 75 %) 79 H VBG Base Excess (-5 - 5 mmol/L) -16 L Chemistry Sodium (135 - 145 mmol/L) 137 Potassiu m (3.5 - 5.1 mmol/L) 4.8 Chloride (98 - 107 mmol/L) 102 Carbon Dioxide (21 - 32 mmol/L) 15 L BUN (4 - 23 mg/dL) 35 H Creatinine (0.6 - 1.5 mg/dL) 1.8 H Glomerular Fi ltr Rate (60 - 115 ml/min) 36 L BUN/Creatinine Ratio (12. 0 - 20.0) 19.4 Glucose (65 - 99 mg/dL) 496 *H POC Glucose (65 - 99 mg/dL) 477 *H Calcium (8.5 - 10.1 mg/dL) 9.4 Tot al Bilirubin (0.2 - 1.2 mg/dL) 0.6 AST (15 - 37 U/L ) 20 ALT (6 - 50 U/L) 24 Total Alk Phosphatase (45 - 117 U/L ) 103 Total Creatine Kinase (26 - 308 U/L) 155 Troponin I (0 .00 - 0.07 ng/mL) 0.05 Total Protein (6.4 - 8.2 g/dL) 7.9 Albumin (3.4 - 5.0 g/dL) 4.0 Lipase (73 - 393 U/L) 86 He matology WBC (4.5 - 11.0 10 3/uL) 6.3 RBC (3.50 - 5.50 10 6/uL) 3.87 Hgb (12.0 - 16.0 g/dL) 11.2 L Hct (37.0 - 55.0 % ) 33.9 L MCV (81 - 102 fL) 88 MCH (26.0 - 34.0 pg) 28.9 M CHC (31.0 - 37.0 %) 33.0 RDW (11.5 - 14.5 %) 13.4 POC RDW S td Deviation (36.4 - 46.3 fL) 43.0 Plt Count (150 - 400 10 3/uL) 205 MPV (9.0 - 12.6 fl) 12.1 Neut % (Auto ) (33.0 - 76.0 %) 85.1 H Lymph % (Auto) (14.0 - 56.4 %) 10 .6 L Lanier % (Auto) (0.0 - 12.9 %) 3.0 Eos % (Auto) (0.0 - 7. 0 %) 0.2 Baso % (Auto) (0 - 2.0 %) 0.5 Neut # (Auto) (1.5 - 7.0 10 3/uL) 5.32 Lymph # (Auto) (1.50 - 4.00 10 3/uL) 0.66 L Lanier # (Auto) (0.20 - 0.80 10 3/uL) 0.19 L Eos # (Aut o) (0.0 - 0.5 10 3/uL) 0.01 Baso # (Auto) (0.0 - 0.1 10 3/ uL) 0.03 Immature Gran % (0.0 - 1.0 %) 0.6 Nucleated RBC % (0 - 0.2 %) 0.0 Toxicology Acetone, Qual (NEGATIVE) SMALL H 12/ 1234 Chemistry POC Lactic Acid (0.36 - 1.70 mmol /L) 1.99 H Lab StatementLaboratory studies reviewed and con sidered in the medical decision-making. ECG #1 Interpretati onText/Dict NoteEKG done at 1144Read by Dr. Castillo 1146Sinus tachycardiaRate 103Ventricular hypertrophyAtrial enlargementNo ectopic beatsNormal axisNo acute i schemic changes Re-Evaluation MDM Re-Evaluation/Progress #1Time of Re-Eval 1301Re-Eval Status UnchangedEval Followi ng Treatment Condition unchanged, Nausea persistsPa in Re-Evaluation 08/08 ED CourseMedication(s) OrderedMedication(s) Ordered:Electrolytic, Calor ic, And Pablo Sig/Chris Start time Last Medication Dose Route S top Time Status Admin Dextrose/Sodium 1,000 ML ASDIR 12/0 6 1300 UNV Chloride IV 05/05 1301 Dextrose/Water 50 ML ASDI R 04/05 1300 UNV IV 05/05 1301 Dextrose/Water 50 ML ASDI R PRN 04/05 1300 UNV IV 05/05 1301 Potassium Chloride 20 MEQ ASDIR 04/05 1300 UNV PO 05/05 1301 Potassium Chloride 100 ML ASDIR 04/05 1300 UNV IV 05/05 1301 Sodium Bicarb angela 100 MEQ ASDIR 04/05 1300 UNV Sterile Water 400 ML I V 05/05 1301 Sodium Bicarbonate 50 MEQ ASDIR 04/05 1300 UNV Sterile Water 200 ML IV 05/05 1301 Sodium Chloride 750 M L ONCE ONE 04/05 1300 UNV IV 04/05 1301 Sodium Chloride 1,0 00 ML ASDIR 04/05 1300 UNV IV 05/05 1301 Sodium Chloride 1, 000 ML ASDIR 04/05 1300 UNV IV 05/05 1301 Gastrointesti nal Drugs Sig/Chris Start time Last Medication Dose Route St op Time Status Admin Ondansetron HCl 4 MG X1ED STA 04/05 1116 DC 04/05 IV 04/05 1117 1159 Hormones And Synthetic Substit Sig/Chris Start time Last Medication Dose Route S top Time Status Admin Glucagon 1 MG ASDIR PRN 04/05 1300 UNV IM 05/05 1301 Glucagon 1 MG ASDIR PRN 04/05 1300 U NV IM 05/05 1301 Insulin Human Regular 5 UNIT ONCE ONE 04/05 1300 UNV IV 04/05 1301 Insulin Human Regular 100 UNIT ASD IR 04/05 1300 UNV Sodium Chloride 99 ML IV 05/05 1301 Ins ulin Human Regular 100 UNIT X1ED STA 04/05 1252 CKD Sodium Chloride 99 ML IV 04/09 1651 Insulin Human Regular 10 UNIT X 1ED STA 04/05 1249 CANr IV 04/05 1250 Free Text MDM Note sFree Text MDM [id number] female who presents to the emergency department with nausea. Patient has not had her insulin for greater than 24 hours. Patient's anion gap is 20 . Bicarb 19. Insulin drip started. Will admit for ICU for further DKA management. Patient Discharge Departure Jen l Signs/ConditionVital SignsFirst Documented: Res ult Date Time Pulse Ox 100 04/05 1104 B/P 127/68 04/05 11 04 B/P Mean 87 04/05 1104 O2 Delivery Room air 04/05 1104 Te mp 37.0 04/05 1104 Pulse 102 04/05 1104 Resp 17 04/05 1 104 Last Documented: Result Date Time Pulse Ox 100 04/05 1249 B/P 135/68 04/05 1249 B/P Mean 90 04/05 1249 O2 Deli very Room air 04/05 1249 Pulse 99 04/05 1249 Resp 16 04/05 1249 Temp 37.0 04/05 1104 All vital signs available at the time of this entry have been reviewed. Condition Stable Clinical ImpressionClinical ImpressionPrimary Impression: Diabetic ketoacidosis associated with type 2 diabetes alex litus Disposition DecisionAdmit Admit Physician Name Erasmo Fay MD Admit Physician Primary C are Physician Request Time 1303 Request Date 9 )( Admission Accepts Yes )( Accepted Time 1303 )( A ccepted Date 04/05/19 Call Information will see patient, agrees with plan Discharge/Care PlanCounseled Regarding Diagnosis, Lab results, Need for admission Admit NoteI have spoken with the patient and/or caregivers. I have expla ined the patient'scondition, diagnoses and treatment plan based on the information available to meat this time. I h ave answered the patient's and/or caregiver's questi ons and addressed any concerns. The patient and/or careg kiana have as good an understanding of the patient's diagno sis, condition and treatment plan as can beexpected a t this point. The patient has been stabilized within th e capability ofthe emergency department. The patie nt will be transported for further care and management or w ill be moved to an observation or inpatient service. I have communicated with the staff or medical practitio ner taking over this patient's care. Critical CareTime Spen t (minutes): 40Services Performed Patient manageme nt by me, Time spent at bedside, Reviewing test results, R eviewing imaging, Discussing patient care, Documentation in record, Time with fam/surrogateSeparately billable proce dures excluded from time.Patient was critically ill du e to:DKA CC Note 1Total critical care time 40 minutes. Total critical care time documented does not include time spent on separately billed procedures or the services of residents, students, nurses or physician assistants. I pers onally saw and examined the patient. I have reviewed all di agnostic interpretations and treatment plans as written. I was present for the ingram portions of any procedurespe rformed and the inclusive time noted in any critical care st atement. Critical care time includes patient management b y me, time spent at the patients bedside,time to review lab and imaging results, discussing patient care, docume ntation in the medical record, and time spent with the fami ly or caregiver. Quality MeasuresBP F/U for HTN Patien t -Gyzs ECG for CP Performed documentedC urrent Medications Attest: Medication reviewTobacco Screening/Cessation Denies tobacco use Efrai khloe Signed by Karo Johnson DO on 04/05/19 at 1305RPT #:[id number] OF REPORTEDEmergency depart [facility] [id number]:17:00NC.[id number] vailable for patient [id number]:05:4 2 2019-04-02 [id number]:47:00 [facility] 23:47:00 [facility])EMERGENCY PROVID ER REPORTREPORT#:[id number] REPORT STATUS: SignedDAT E:04/02/19 TIME: 2347 PATIENT: DANIELE HINKLE UNIT #: [id number]#: [id number] ROOM: BED:AGE: 68 SEX: F PCP PHYS: Erasmo Fay MDSERVICE DT: 07/17 AUTHOR: Solomon Hammond MD * ALL edits or amendments mus t be made on the electronic/computer document * HPI-Genera l Illness Free Text HPI NotesFree Text HPI NotesThiparag is a 68 year old female with history of HTN, kidney disease, OR, and HLD that is presenting to the ED with 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 The pt states that she was s peaking when she began to feel a pain to her L adventism, F ollowing this, she began to feel tingling to her L arm an d hand. Pt reports chest pressyre and reports that both her REEVES and tingling are resolved. GeneralConfirmed Patient YesPatient Type New patientInitial Greet Date/Time 04/02/192323 PresentationChief Complaint Numbness, General ma laise, TinglingHx Obtained From PatientSudden in Onset? NoOnset Occurred Today, Hours agoSymptom Duration Since onset, ConstantProgression since Onset Unchanged, Const antCaused by No trauma by historyLocation Upper extremity LAssociated withReports: Headache, Numb extremities. Context Related HistoryReports: Diabetes mellitus. Similar Sx Pr evious No Portions of this section were scribed by Hal Soliz on 04/03/19 at 0333 Review of Systems ROS Statement Doris systems rev neg except as marked. Review of SystemsConstitutionalReports: Malaise. Denies: C hills, Fatigue, Fever, Lethargy, Recent wt loss, Weakne ss - generalized. EyesDenies: Blurred R, Blurred L, B lurred bilat, Diplopia, Discharge R, Discharge L,Discha rge bilat, Eye pain R, Eye pain L, Eye pain bilat, Photopho garertt, Redness R,Redness L, Redness bilat, Swelling R, Swelling L, Swelling bilat, Visual loss R,Visual loss L, Vis ual loss bilat, Yellow R, Yellow L, Yellow bilat. Ears/Nose/ThroatDenies: Ear drainage R, Ear drai nage L, Ear drainage bilat, Ear ringing R, Ear ringing L, Ea r ringing bilat, Earache R, Earache L, Earache bilat, Hear ing loss R, Hearing loss L, Hearing loss bilat, Mouth pain, Nasal congestion, Nose bleeding, Sinus problem, Sore t hroat, Throat pain, Throat swelling, Tongue pain,Tongue swelling, Toothache, Voice change. RespiratoryDenies: Coug h, non-productive, Cough, productive, Dyspnea on ex ertion, Hemoptysis, Parox nocturnal dyspnea, Pleuritic p ain, Shortness of breath, Wheezing. CardiovascularDen ies: Chest pain, Dyspnea on exertion, Edema, Orthopnea, Pal pitations, Parox nocturnal dyspnea, Syncope. GIDenies: Abdo gabby pain, Anorexia, Belching, Bloody/tarry stool, Constipa tion, Diarrhea, Dysphagia, Hematemesis, Hematochezia, Mucousy stool, Melena, Nausea, Rectal pain, Vomiting. FemaleDenies: Dysuria, Flank pain, Hematuria, In continence, Nocturia, Pelvic pain, , Urinary frequen cy, Urinary urgency, Urination decreased, Urination increase d, Vaginal bleeding - abnl, Vaginal discharge. Musculoskele talDenies: Back pain, Extremity pain, Extremity swelling, J oint pain, Joint swelling, Lumbar pain, Myalgia, Neck pain, Thoracic pain. SkinDenies: Abrasion, Abscess, Burn, Contu jamila, Diaphoresis, Erythema, Itching, Jaundice, Lacera tion, Rash, Swelling, Ulceration. NeurologicReports: Headach e, Numbness, Tingling. PsychiatricDenies: Agitation , Anxiety, Change mental status, Confusion, Delusional, Dep ression, Hallucinations, auditory, Hallucinations, visual , Homicidal ideation, Hostile, Insomnia, Stress, Suicidal id eation, Unable to control self. Portions of this section were scribed by Hal Soliz on 04/03/19 at 0029 P ast Medical History - AdultStated Complaint GENERAL MALAISEAllergiesCoded Allergies:codeine (Interme diate, RASH-HIVES 03/14/19)lisinopril (Intermediate, RA SH-RAISED 03/14/19) Home MedicationsReported MedicationsMe toprolol Succ Xl (Toprol Xl) 25 MG PO DAILY Ezetimibe (Ze tia) 10 MG PO DAILY [Vascepa 1 gram capsu] 1 GRAM DAILY Nit roglycerin (Nitrostat) 0.4 MG SL Q5M PRN CHEST PAIN Isosorb lan Mononitrate Sr (Imdur) 60 MG PO DAILY Insulin As part (Novolog Flexpen) Insulin Glargine (Lantus) 30 U NITS SUBQ QAM Past Medical History:Reports: Diabetes melli tus, Hypertension, Kidney disease/stones (Disease), Dyslipidemia. Additional Medical HistoryMINeurop athyVisual ImpairmentAlcohol Use Alcohol use (former)Drug U se Denies recreational drugsSmoking status for patients 13 years old or older: Former Smoker Portions of this section were scribed by Hal Soliz on 04/03/19 at 0029 P hysical Exam Vital SignsVital SignsFirst Documented: Re sult Date Time Pulse Ox 100 04/02 2330 B/P 152/78 04/02 B/P Mean 102 04/02 2330 O2 Delivery Room air 04/02 2330 Temp 36.8 04/02 2330 Pulse 78 04/02 2330 Resp 28 04/02 Last Documented: Result Date Time Pulse Ox 100 04/03 0326 B/P 115/74 04/03 326 B/P Mean 86 04/03 326 O2 Deli very Room air 04/03 326 Temp 36.8 04/03 326 Pulse 76 325 Resp 17 04/03 326 Review of Vital Signs Reviewe d Physical ExamGeneral/Const General/Const Awake, Alert, No acute distressMS Head Head Atraumatic, NormocephalicEy es Eyes Atraumatic, PERRL, EOMIEars/Nose/Throat Ears/Nos e/Throat Atraumatic, Mucous membranes moistMS Neck Neck Atraumatic, Supple, Full range of motionResp/Chest Respirato ry/Chest Atraumatic, Breath sounds NL, Breath sounds = bi lat, No respiratory distressCardiovascular Cardiovascula r Heart rate NL, Regular rhythm, Heart sounds NLAbdomen/ GI Abdomen/GI Atraumatic, Soft, Non-tenderSkin Skin Atraumatic, Color NLGenitourinary General Exam deferredRectum Rectum/Perineum Exam deferredNeur ologic Neurologic Oriented X3, Speech NLPsychiatric Psy chiatric Affect NL, Mood NL Portions of this section were scribed by Hal Soliz on 04/03/19 at 0333 Interpretati on Diagnostics Lab Results InterpretationResultsLab oratory Tests 04/03/19 0027:[Embedded Image Not Available]Laboratory Tests: 04/03 0027 0027 0120 0252 Chemistry Sodium (135 - 145 mmol/ L) 135 Potassium (3.5 - 5.1 mmol/L) 4.1 Chloride (98 - 107 mmol/L) 103 Carbon Dioxide (21 - 32 mmol/L) 26 A nion Gap (2.0 - 16.0) 10.1 BUN (4 - 23 mg/dL) 25 H Creat inine (0.6 - 1.5 mg/dL) 1.3 Glomerular Filtr Rate (60 - 115 ml/min) 53 L BUN/Creatinine Ratio (12.0 - 20.0) 19.2 Glucos e (65 - 99 mg/dL) 459 *H POC Glucose (65 - 99 mg/dL) 188 H Calcium (8.5 - 10.1 mg/dL) 8.4 L Troponin I (0.00 - 0.07 ng/mL) < 0.02 B-Natriuretic Peptide (0 - 100 pg/mL) 66 He matology WBC (4.5 - 11.0 10 3/uL) 2.6 L RBC (3.50 - 5.50 10 6/uL) 3.96 Hgb (12.0 - 16.0 g/dL) 11.4 L Hct (37.0 - 55.0 %) 33.4 L MCV (81 - 102 fL) 84 MCH (26.0 - 34.0 pg) 28.8 MCHC (31.0 - 37.0 %) 34.1 RDW (11.5 - 14.5 %) 13.2 PO C RDW Std Deviation (36.4 - 46.3 fL) 40.8 Plt Count (150 - 400 10 3/uL) 193 MPV (9.0 - 12.6 fl) 11.5 Neut % (Auto) (33.0 - 76.0 %) 48.8 Lymph % (Auto) (14.0 - 56.4 %) 32.0 Lanier % (Auto) (0.0 - 12.9 %) 11.3 Eos % (Auto) (0.0 - 7 .0 %) 6.3 Baso % (Auto) (0 - 2.0 %) 1.2 Neut # (Auto) (1.5 - 7.0 10 3/uL) 1.25 L Lymph # (Auto) (1.50 - 4.00 10 3/uL ) 0.82 L Lanier # (Auto) (0.20 - 0.80 10 3/uL) 0.29 Eos # ( Auto) (0.0 - 0.5 10 3/uL) 0.16 Baso # (Auto) (0.0 - 0.1 10 3/uL) 0.03 Immature Gran % (0.0 - 1.0 %) 0.4 Nucleated RBC % (0 - 0.2 %) 0.0 Toxicology Acetone, Qual (NEGATIVE) NEGAT MIRTHA Urines Urine Color (YELLOW) Straw Urine Appearance (BIMAL AR) CLEAR Urine pH (5.0 - 8.0) 7 Ur Specific [place] (1.00 5 - 1.025) 1.018 Urine Protein (NEGATIVE) NEGATIVE Urine Gl ucose (UA) (NEGATIVE) 3+ H Urine Ketones (NEGATIVE) NEGATIV E Urine Blood (NEGATIVE) 1+ H Urine Nitrite (NEGATIVE) NEGATIVE Urine Bilirubin (NEGATIVE) NEGATIVE Urine Urobil inogen (0.1 - 0.2 EU/dL) Negative Ur Leukocyte Esterase (NEG ATIVE) TRACE H Urine RBC (0 - 3 /hpf) 0-2 Urine WBC (0 - 3 /hpf) 3-5 H Ur Epithelial Cells (/lpf) FEW Urine Bacte yamile (NEGATIVE /HPF) NONE SEEN Urine Mucus (/lpf) OCC ASIONAL Recent Impressions:RADIOLOGY - XR CHEST 1 V 3 2330 Report Impression - Status: SIGNED Entered: 06/2018 2359 IMPRESSION: No active disease in the chest. Impr ession By: ANGLE Angeles SCAN - CT HEAD/BRA IN W/O CONT 04/03 0137 Report Impression - Status: SIGNED Entered: 04/03/2019 0221 IMPRESSION: 1. Stable CT brain. No intracranial hemorrhage or other acuteintracrani al abnormality.Impression By: [email or web address] - Mark grimes MD Lab Imaging StatementLaboratory radiographic studies reviewed and considered in the medical decision-making. P oint of Care TestingPulse Oximetry Pulse Ox % 100 On: Ro om air Interpretation Interpreted by me, Pulse oximetry normal Time 0326 ECG #1 InterpretationDate 04/02/19Time 2331Interpreted by ED physicianNL ECG Interpreta tion Normal rate, Normal sinus rhythm, No STEMIRate 81 Porti ons of this section were scribed by Hal Soliz on 04/03 at 0333 Re-Evaluation MDM Free Text MDM NotesFree Text M DM Notes03:26 Pt refused admission as she wants to go home. Additional TextPt reported feeling much better a fter fluid and Insulin. She declined admission. She was jamel d to follow up with her PCP in 1 day and to return to ED if worse. ED CourseMedication(s) OrderedMedication(s) Ordered:Electrolytic, Caloric, And Pablo Sig/Chris S tart time Last Medication Dose Route Stop Time Status Admi n Sodium Chloride 500 ML ONCE ONE 04/02 2330 DC 04/03 IV 04/02 2331 0121 Hormones And Synthetic Substit Sig/Chris Star t time Last Medication Dose Route Stop Time Status Admin In sulin Human Regular 8 UNIT X1ED STA 04/03 110 DC 04/03 IV 1 06/04 011 0121 ConsultationConsultation Referral/Consult N Britney Cheney DO Silhouette Artist Called Primary care physician Requested Call Time 015 Requested Call Date 08/17 Call Returned Call returned Call Returned Time 0202 C all Returned Date 04/03/19 Silhouette Artist Agrees with pl an Differential DiagnosisDifferential Diagnosis Sei zure disorder, Syncope, Urinary tract infection Porti ons of this section were scribed by Hal Soliz on 04/03 at 0325 Patient Discharge Departure Vital Signs/Conditio nVital SignsFirst Documented: Result Date Time Pulse Ox 100 04/02 2330 B/P 152/78 04/02 2330 B/P Mean 102 04/02 23 30 O2 Delivery Room air 04/02 2330 Temp 36.8 04/02 23 30 Pulse 78 04/02 2330 Resp 28 04/02 2330 Last Documented: Result Date Time Pulse Ox 100 04/03 326 B/P 115/74 04/03 B/P Mean 86 04/03 326 O2 Delivery Room air 04/03 326 Te mp 36.8 04/03 326 Pulse 76 04/03 326 Resp 17 04/03 All vital signs available at the time of this entry have been reviewed. Clinical ImpressionClinical Impression Primary Impression: HyperglycemiaSecondary Impressions: GENERAL MALAISERuled Out Impressions: UTI (urinary tract infection) Disposition DecisionDischarge )( Discharged to H ome Yes )( Time 0330 )( Date 04/03/19 Discharge/Care Plan D ischarge NoteI have spoken with the patient and/or caregi vers. I have explained the patient'scondition, diagnoses and treatment plan based on the information availabl e to meat this time. I have answered the patient's and/or caregiver's questions and addressed any concerns. The patien t and/or caregivers have as good an understanding of the patient's diagnosis, condition and treatment plan as can b eexpected at this point. The vital signs have been stable. The patient's condition is stable and appropriate fo r discharge from the emergency department. The patient will pursue further outpatient evaluation with the primary c are physician or other designated or consulting phys ician as outlined in the discharge instructions. The kayla ent and/or caregivers are agreeable to this planof care and follow-up instructions have been explained in detail. The patient and/or caregivers have received these instructio ns in written format and have expressed an understandi ng of the discharge instructions. The patient and/or careg kiana are aware that any significant change in condition o r worsening of symptoms should prompt an immediate return to this or the closest emergency department or a call to 91 1. Supervising Physician Note Scribe StatementHal Jimenez, 04/03/1933, scribing for and in the presence of Solomon Hammond MD.Signed By: Hal Soliz, 04/03/196 Pro vider Scribed StatementI personally performed the serv ices described in this documentation and reviewedthe documentation that was dictated to the scribe(s) in my presence, and it accurately records my words and actions. Solomon Hammond MD, 04/03/19 Portions of this section w ere scribed by Hal Soliz on 04/03/19 at 0333 Electroni khloe Signed by Solomon Hammond MD on 04/03/19 at 0720RPT #:[id number] OF REPORTEDEmergency depart ment [id number]:47:00NC.[id number] vailable for patient [id number]:21:0 6 2019-04-02 [id number] [facility] 23:31:[address] [address] PATIENT NAME: DANIELE HINKLE ADMIT D ATE: 04/02/19ACCOUNT NO: [id number] ROOM NO: MEDICA L RECORD NO: [id number] AGE: 68 REPORT TYPE: eELECTROCARD IOGRAM SEX: F ADMITTING PHYSICIAN: ATTENDING PHYSICIAN: Order:[id number] Reason : Test Date/Time Stamp:MonApr 02 2019 23:31:36Blood Pressure : / mmH GVent. Rate : 081 BPM Atrial Rate : 079 BPM P-R Int : 000 ms QRS Dur : 077 ms QT Int : 374 ms P-R-T Axes : 071 071 069 degrees QTc Int : 434 ms Sinus rhythm Confirmed by LISY KEENAN MD ([id number]) on 04/03/2019 6:27:10 PM Referred By: Ricco barnett Referred Confirmed by:LISY KEENAN MD Electronically Sign ed by Lisy Keenan MD on 04/03/19 at 18[address] [place] [address] PATIENT NAME: DANIELE HINKLE ACCOUN T #: [id number] le for patient [id number]:2 7:33 2019-03-14 [id number] [facility] 15:11:00 [place] [id number] PATIENT NAME: DANIELE HINKLE ADMIT D ATE: 03/14/19ACCOUNT NO: [id number] ROOM NO: NC.510 6 AGE: 68 REPORT TYPE: eELECTROCARDIOGRAM SEX: F ADMITTING PHYSICIAN:Fadumo Fay MD ATTENDING PHYSICIAN:Erasmo spann MD Order:[id number] Reason : Test Date/Time Stamp:MonMar 14 2019 15:11:47Blood Pressure : / mmH GVent. Rate : 068 BPM Atrial Rate : 061 BPM P-R Int : 000 ms QRS Dur : 084 ms QT Int : 410 ms P-R-T Axes : 072 072 052 degrees QTc Int : 437 ms Sinus arrhythmiaConsider left ventr icular hypertrophy Confirmed by LOLIS BURKS MD ([id number]) on 03/16/2019 7:46:43 AM Referred By: Erasmo alves Confirmed by:LOLIS BURKS MD Electronically Sig rudi by Lolis Burks MD on 03/16/19 at [address] [address] PATIENT NAME: DANIELE HINKLE .[id number] for patient [id number]:4 7:10 2019-03-14 [id number]:33:00 [facility] [place] [facility] 12:33:00 [facility] ([facility])EMERGENCY PROVID ER REPORTREPORT#:[id number] REPORT STATUS: SignedDAT E:03/14/19 TIME: 1233 PATIENT: DANIELE HINKLE UNIT #: [id number]#: [id number] [address]AGE: 68 SEX: F PCP PHYS: Erasmo Fay AUTHOR: Natalia Cary MD * ALL edits or amendments must be made on the electronic/computer document * HPI-General Illness Free Text HPI NotesFree Text HPI Notes 68 y/o female with hx of OR, HTN, DM, HLD, neuro chucho and renal disease presents to ED with complaint of w eakness. Per EMS, the pt reports she has had pain on and off since approximately 08:00. The pain began with RLE sti ffness (now resolved) then became LLE numbness (now resolved ). She then began to feel chest discomfort (which she states she has at baseline, however, today s was more severe.) whi ch has since resolved. Upon arrival of EMS, the pt repo rted shehad pain in her temporal region and pain in her righ t kidney, however both of these have since resolved. EMS n otes that her blood glucose was elevated at 471 mg/dL. Cur rently the pt reports no pain, but states she feels slightl y weak. GeneralConfirmed Patient YesPatient Type New pat ientInitial Greet Date/Time 03/14/19 1229 PresentationChief Complaint WeaknessHx Obtained From Patient, ParamedicSudde n in Onset? NoOnset Occurred TodaySymptom Duration Since ons et, Waxes and wanesProgression since Onset Intermittent, W axes and wanesCaused by No trauma by historyLocation Gene ralized weaknessAssociated withReports: Weakness. Denies : Abdominal pain, Chest pain, Cough, Difficulty breathing, F ever, Headache, Loss of consciousness, Pain, Pain on w alking, Syncope. ContextRelated HistoryReports: Diabetes mellitus. Recent Healthcare No recent doctor visit, No rec ent hospitalization Portions of this section were sc ribed by Yamile Figueroa on 03/14/19 at 1620 Review of System s ROS StatementsAll systems rev neg except as marked. Review of SystemsConstitutionalReports: Weakness - general ized. Denies: Chills, Fever. RespiratoryDenies: Cough, non-productive, Cough, productive, Shortness of breath. CardiovascularDenies: Chest pain, Palpitations, Syncope. MusculoskeletalDenies: Back pain, Extremity pain , Joint pain, Myalgia, Neck pain. NeurologicReports: Gen eralized weakness. Denies: Change LOC, Confusion, Dizzine ss, Focal weakness, Headache, Lightheaded, Numbness, Seizu re, Syncope, Tingling. Portions of this section were scribed by Yamile Figueroa on 03/14/19 at 1302 Past Medical His tory - AdultStated Complaint GENERAL WEAKNESSAllergiesC eulalia Allergies:codeine (Intermediate, RASH-HIVES 03/14/19)lisinopril (Intermediate, RASH-RAISED 1 05/14/18) Home MedicationsReported MedicationsMetoprolol S ucc Xl (Toprol Xl) 25 MG PO DAILY Ezetimibe (Zetia) 10 MG PO DAILY [VASCEPA] Nitroglycerin (Nitrostat) 0.4 MG SL Q5 M PRN PRN CHEST PAIN Isosorbide Mononitrate Sr (Imdur) 60 MG PO DAILY Insulin Aspart (Novolog Flexpen) Insulin Glargin e (Lantus Solostar) Pt reports no significant: Past surgic al history, Family history, Social historyPast Medical Histo ry:Reports: Diabetes mellitus, Hypertension, Kidney disease/ stones (Disease), Dyslipidemia. Additional Medical HistoryMINeuropathyVisual Impairment Portions of this section were scribed by Yamile Figueroa on 03/14/19 at 1302 Physical Exam Vital SignsVital SignsFirst Docume nted: Result Date Time Pulse Ox 100 03/14 1230 B/P 151 /81 03/14 1230 B/P Mean 104 03/14 1230 O2 Delivery Room ai r 03/14 1230 Temp 36.9 03/14 1230 Pulse 76 03/14 1230 R elisha 16 03/14 1230 Last Documented: Result Date Time Pul se Ox 99 03/14 1630 B/P 114/86 03/14 1630 B/P Mean 95 1630 O2 Delivery Room air 03/14 1630 Pulse 68 03/14 1630 Resp 16 03/14 1630 Temp 36.9 03/14 1230 Review of Vital Signs Reviewed Free Text PE NotesFree Text PE NotesConstitutional: Patient oriented to person, place and time.Patient appears well-developed and well-nou rished. In no apparent distress.HENT:Head: Normocephalic an d atraumatic. Mouth/throat: Oropharynx is clear mo ist. External ears normal.Eyes: Conjunctiva and EOM a re normal. Pupils are equal round and reactive to light. No discharge bilaterally. No scleral icterus.Neck: Normal ran ge of motion. Neck supple.Cardiovascular: Normal rate, regular rhythm, normal heart sounds and intact distal pu lses. No murmur heard.Pulmonary/chest: Normal effort and breath sounds normal. No respiratory distress.Abdominal : Soft. Bowel sounds are normal. No distention. No tende rness to palpation. No rebound or guarding.Musculoskeleta l: Normal range of motion. No edema or tenderness.Neurolog ical: Patient is alert and oriented to person, place a nd time. Normal strength and normal reflexes. No cranial nerve deficits. No sensory deficits. GCS: Eyes subscor e 4, verbal subscore 5, motor subscore 6.Skin: Skin is dry. Skin is not diaphoretic. No pallor.Psychiatric: Normal mood and affect. Normal behavior.Nursing note and vitals reviewed . Portions of this section were scribed by Yamile Figueroa on 1 05/14/18 at 1620 Interpretation Diagnostics Lab Results InterpretationResultsLaboratory Tests 03/14/19 1250:[Embedded Image Not Available]Laboratory Te sts: 03/14 03/14 03/14 1250 1250 1354 Chemistry Sodium (135 - 145 mmol/L) 133 L Potassium (3.5 - 5.1 mmol/L) 4.1 C hloride (98 - 107 mmol/L) 98 Carbon Dioxide (21 - 32 mmol/L) 27 Anion Gap (2.0 - 16.0) 12.1 BUN (4 - 23 mg/dL) 37 H Cr eatinine (0.6 - 1.5 mg/dL) 1.7 H Glomerular Filtr Rate (6 0 - 115 ml/min) 39 L BUN/Creatinine Ratio (12.0 - 20.0) 21.8 H Glucose (65 - 99 mg/dL) 415 *H Serum Osmolality (278 - 305 mOsm/kg) 313 H Calcium (8.5 - 10.1 mg/dL) 9.2 To terra Bilirubin (0.2 - 1.2 mg/dL) 0.7 Direct Bilirubin (0.0 - 0.3 mg/dL) 0.2 Indirect Bilirubin (0.0 - 0.8 mg/dL) 0.5 AST (15 - 37 U/L) 21 ALT (6 - 50 U/L) 31 Total Alk Phosp hatase (45 - 117 U/L) 140 H Troponin I (0.00 - 0.07 ng/mL) < 0.02 B-Natriuretic Peptide (0 - 100 pg/mL) 43 Total P rotein (6.4 - 8.2 g/dL) 8.6 H Albumin (3.4 - 5.0 g/dL) 4.2 Globulin (2.3 - 3.5 g/dL) 4.4 H Lipase (73 - 393 U/L) 216 TSH (0.36 - 3.74 mIU/mL) 2.11 Hematology WBC (4.5 - 11.0 1 0 3/uL) 3.3 L RBC (3.50 - 5.50 10 6/uL) 4.17 Hgb (12.0 - 16. 0 g/dL) 11.7 L Hct (37.0 - 55.0 %) 35.2 L MCV (81 - 102 fL) 84 MCH (26.0 - 34.0 pg) 28.1 MCHC (31.0 - 37.0 %) 33.2 RDW (11.5 - 14.5 %) 13.2 Plt Count (150 - 400 10 3/uL) 186 MPV (9.0 - 12.6 fl) 10.8 Neut % (Auto) (33.0 - 76.0 %) 57. 5 Lymph % (Auto) (14.0 - 56.4 %) 25.5 Lanier % (Auto) (0.0 - 12.9 %) 9.4 Eos % (Auto) (0.0 - 7.0 %) 5.8 Baso % (Auto ) (0 - 2.0 %) 1.2 Neut # (Auto) (1.5 - 7.0 10 3/uL) 1.90 Ly mph # (Auto) (1.50 - 4.00 10 3/uL) 0.84 L [place] # (Auto ) (0.20 - 0.80 10 3/uL) 0.31 Eos # (Auto) (0.0 - 0.5 10 3/ uL) 0.19 Baso # (Auto) (0.0 - 0.1 10 3/uL) 0.04 Immature Gran % (0.0 - 1.0 %) 0.6 Toxicology Acetone, Qual (NEGA TIVE) NEGATIVE Urines Urine Color (YELLOW) Straw Urin e Appearance (CLEAR) CLEAR Urine pH (5.0 - 8.0) 6 Ur Specific [place] (1.005 - 1.025) 1.017 Urine Protein (NE GATIVE) NEGATIVE Urine Glucose (UA) (NEGATIVE) 3+ H Urin e Ketones (NEGATIVE) NEGATIVE Urine Blood (NEGATIVE) NEGAT MIRTHA Urine Nitrite (NEGATIVE) NEGATIVE Urine Bilirubin (NEG ATIVE) NEGATIVE Urine Urobilinogen (0.1 - 0.2 EU/dL) Ne gative Ur Leukocyte Esterase (NEGATIVE) TRACE H Urine RBC (0 - 3 /hpf) 0-2 Urine WBC (0 - 3 /hpf) 3-5 H Ur Epithe lial Cells (/lpf) RARE Urine Bacteria (NEGATIVE /HPF) RARE Urine Mucus (/lpf) OCCASIONAL Recent Impressions:RADIOLOGY - XR CHEST 1 V 03/14 1310 Report Impression - Status: SIGN ED Entered: 03/14/2019 1324 IMPRESSION: No active disease in the chest. Impression By: [facility]al [facility], [facility] N - CT HEAD/BRAIN W/O CONT 03/14 1500 Report Impress ion - Status: SIGNED Entered: 03/14/2019 1532 IMPRESSI ON: 1. No acute intracranial abnormality. No acute hemorrh age, masslesion or infarct.2. Right-sided phthisis bu lbi.3. Inflammatory disease of bilateral maxillary sinu ses and ethmoidair cells.Impression By: Jeremy Jacinto MD Lab Imaging StatementLaboratory radiographic deysi dies reviewed and considered in the medical decision- making. Point of Care TestingPulse Oximetry Pulse Ox % 9 8 On: Room air Interpretation Interpreted by me, Pulse oxim etry normal Time 1330 ECG #1 InterpretationText/Dict NoteEKG interpreted by me, emergency physician at 1233. Normal sinus rhythm at 79. Normal axis. Normal interval s. No acute ischemic appearing ST-T changes. Leftventricular hypertrophy. Portions of this section were scrib ed by Yamile Figueroa on 03/14/19 at 1620 Re-Evaluation MD Zambrano Free Text MDM NotesFree Text MDM NotesPoorly controlled di abetic man with generalized weakness and paresthesias. Unre markable CT brain with normal neurological exam. Will admit for blood sugarcontrol. Patient also had chest pain earlie r, will require ACS eval. ED CourseMedication(s) OrderedMedication(s) Ordered:Central Nervous Sys tem Agents Sig/Chris Start time Last Medication Dose Route St op Time Status Admin Lorazepam 0 .STK-MED ONE 03/14 1534 DC .ROUTE Lorazepam 1 MG X1ED STA 03/14 1532 DC IV 03/14 1 533 Electrolytic, Caloric, And Pablo Sig/Chris Start mary jo e Last Medication Dose Route Stop Time Status Admin Sod ium Chloride 1,000 ML BOLUS 03/14 1445 AC IV 04/13 1 446 Sodium Chloride 1,000 ML X1ED STA 03/14 1235 DC IV 03/01 4 1334 Hormones And Synthetic Substit Sig/Chris Start mary jo e Last Medication Dose Route Stop Time Status Admin Ins ulin Human Lispro See Dose Q6HR 03/14 1800 AC Insts (1) SUB Q 04/13 1801 Insulin Human Regular 8 UNIT X1ED STA 03/14 1435 DC 03/14 IV 03/14 1436 1618 Dose Instructions:(1)In sulin Human Lispro: UNITS= Portions of this section were scr ibed by Yamile Figueroa on 03/14/19 at 1620 Patient Discharg e Departure Vital Signs/ConditionVital SignsFirst Documented : Result Date Time Pulse Ox 100 03/14 1230 B/P 151/81 1230 B/P Mean 104 03/14 1230 O2 Delivery Room air 03/14 1230 Temp 36.9 03/14 1230 Pulse 76 03/14 1230 Resp 16 03/01 4 1230 Last Documented: Result Date Time Pulse Ox 99 03/14 1 630 B/P 114/86 03/14 1630 B/P Mean 95 03/14 1630 O2 Deli very Room air 03/14 1630 Pulse 68 03/14 1630 Resp 16 03/14 1630 Temp 36.9 03/14 1230 All vital signs available at the time of this entry have been reviewed. Clinical Impressi onClinical ImpressionPrimary Impression: Uncontrolled diabe susan mellitusSecondary Impressions: Acute chest pain, Generalized weakness Disposition DecisionAdmit A dmit Physician Name Erasmo Fay MD Admit [facility] Primary Care Physician Request Time 1557 Request Date 03/14/19 )( Admission Accepts Yes )( Accepted Ti me 1557 )( Accepted Date 03/14/19 Call Information will see patient, agrees with eval, agrees with plan Discharge/Car e Plan Admit NoteI have spoken with the patient and/or caregivers. I have explained the patient'scondition, diagnos es and treatment plan based on the information availabl e to meat this time. I have answered the patient's and/or caregiver's questions and addressed any concerns. The patien t and/or caregivers have as good an understanding of the patient's diagnosis, condition and treatment plan as can b eexpected at this point. The patient has been stabilized w ithin the capability ofthe emergency department. The patie nt will be transported for further care and management or w ill be moved to an observation or inpatient service. I have communicated with the staff or medical practitio ner taking over this patient's care. Supervising Physician Note Scribe StatementYamile Figueroa, 03/14/19 1307, scribing fo r and in the presence of [Natalia Cary MD].Signed By: Yamile Figueroa, 03/14/19 1307 Provider Scribed Stat ementI personally performed the services described in t his documentation and reviewedthe documentation that was dictated to the scribe(s) in my presence, and it accurately records my words and actions. Taqueria Cary MD, 03/14/19 Portions of this section were scribed b Yamile Quigley on 03/14/19 at 1302 at 1858RPT #:[id number] OF REPORTEDEmergency depart [facility] [id number] vailable for patient [id number] 9 2019-03-14 [id number] [facility] 12:32:[address] [address] PATIENT NAME: DANIELE HINKLE ADMIT D ATE: 03/14/19ACCOUNT NO: [id number] ROOM NO: [id number] AGE: 68 REPORT TYPE: eELECTROCARDIOGRAM SEX: F ADMITTING PHYSICIAN:Fadumo Fay MD ATTENDING PHYSICIAN:Erasmo spann MD Order:[id number] Reason : Test Date/Time Stamp:MonMar 14 2019 12:32:47Blood Pressure : / mmH GVent. Rate : 079 BPM Atrial Rate : 082 BPM P-R Int : 000 ms QRS Dur : 090 ms QT Int : 388 ms P-R-T Axes : 076 074 059 degrees QTc Int : 445 ms Sinus rhythmConsider left ventricul ar hypertrophy Confirmed by VITALIY GRIGSBY, LOLIS ([id number]) on 03/16/2019 7:44:37 AM Referred By: Self Referred Confirmed by:LOLIS BURKS MD at [address] [place] [id number] PATIENT NAME: DANIELE HINKLE .[id number] 10AVAvakarthikeyanb kane for patient [id number] 5:10
[2023-03-24 13:48] LABS: Hematocrit 32.6 % (36.0-45.0); Lymphocytes % 17.3 % (15.3-44.8); MCV 90.8 fL (80-100); MPV 8.1 fL (7.6-11.3); Platelets 282 thou/uL (152-406); RBC Red Blood Cell Count 3.59 M/uL (3.86-4.86)
[2023-03-24 14:05] LABS: Albumin 2.7 g/dL (3.4-5.0); Bilirubin Total 0.2 mg/dL (0.2-1.0); Potassium 4.1 mEq/L (3.5-5.1)
--- NOTE | 2023-03-24 15:07 | EDPHYS ---
Physician Documentation [facility] Name: Lorenza Qiu Age: 72 yrs Sex: Female : 1950 Arrival Date: 03/24/2023 Time: 12:39 Bed 13 Private MD: ED Physician Maximo Helm HPI: 03/24 12:45 This 72 yrs old Female presents to ER via Unassigned with complaints of Hypoglycemia. ms3 12:45 72-year-old female with past medical history of diabetes, hypertension, hyperlipidemia ms3 presents to the emergency department via [facility] for low blood sugar that was noted this morning. Patient did not eat breakfast and did not take her a.m. medications. EMS notes patient was altered on their arrival with glucose of 30s. Patient was administered oral glucose without improvement of her glucose level. Patient was then administered a second tube of oral glucose and patient's blood sugar improved to 58. Patient denies pain at this time. Patient denies nausea, vomiting, fevers, chills. Historical: - Allergies: 12:52 Codeine; db 12:52 Lisinopril; db - PMHx: 12:52 HYPERCHOLESTEREMIA; Diabetes mellitus; db - Immunization history:: Adult Immunizations unknown. - Social history:: Smoking status: Patient denies any tobacco usage or history of. ROS: 12:45 Constitutional: Negative for fever, and chills. Neck: Negative for injury, pain, and ms3 swelling, Cardiovascular: Negative for chest pain, and palpitations. Respiratory: Negative for shortness of breath, cough, wheezing, and pleuritic chest pain, Abdomen/GI: Negative for abdominal pain, nausea, vomiting, diarrhea, and constipation, MS/Extremity: Negative for injury and deformity, Skin: Negative for injury, rash, and discoloration, 12:45 All other systems are negative, Exam: 12:45 Constitutional: This is a well developed, well nourished patient who is awake, alert, ms3 and in no acute distress. Head/Face: Normocephalic, atraumatic. Neck: Trachea midline, no cervical lymphadenopathy. Supple, full range of motion without nuchal rigidity, or vertebral point tenderness. No Meningismus. Chest/axilla: Normal chest wall appearance and motion. Nontender with no deformity. Cardiovascular: Regular rate and rhythm with a normal S1 and S2. No gallops, murmurs, or rubs. Normal PMI, no JVD. No pulse deficits. Respiratory: Lungs have equal breath sounds bilaterally, clear to auscultation and percussion. No rales, rhonchi or wheezes noted. No increased work of breathing, no retractions or nasal flaring. Abdomen/GI: Soft, non-tender, with normal bowel sounds. No distension or tympany. No guarding or rebound. No evidence of tenderness throughout. Skin: Warm, dry with normal turgor. Normal color with no rashes, no lesions, and no evidence of cellulitis. MS/ Extremity: Pulses equal, no cyanosis. Neurovascular intact. Full, normal range of motion. 13:44 ECG was reviewed by the Attending Physician. ms3 Vital Signs: 12:30 BP 161 / 91; Pulse 78; Resp 18; Temp 98(O); Pulse Ox 100% ; Weight 54.43 kg; Height 5 db ft. 2 in. ; 13:48 BP 146 / 84; Pulse 83; Resp 17; Pulse Ox 100% on R/A; ll1 14:00 BP 160 / 93; Pulse 88; Resp 16; Pulse Ox 100% on R/A; db 14:30 BP 150 / 93; Pulse 83; Resp 16; Pulse Ox 99% on R/A; db 15:00 BP 160 / 90; Pulse 87; Resp 16; Pulse Ox 100% on R/A; db 12:30 Body Mass Index 21.95 (54.43 kg, 157.48 cm) db MDM: 12:43 Patient medically screened. ms3 12:45 Differential Diagnosis Hypoglycemia vs Electrolyte abnormality vs UTI. ms3 15:07 Data reviewed: vital signs, nurses notes, lab test result(s), and as a result, I will ms3 discharge patient. Historians other than the Patient: EMS: [facility]. Care significantly affected by the following chronic conditions: Diabetes. Counseling: I had a detailed discussion with the patient and/or guardian regarding the historical points, exam findings, and any diagnostic results supporting the discharge/admit diagnosis, lab results, the need for outpatient follow up, to return to the emergency department if symptoms worsen or persist or if there are any questions or concerns that arise at home. Special discussion: I discussed with the patient/guardian in detail that at this point there is no indication for admission to the hospital. It is understood, however, that if the symptoms persist or worsen the patient needs to return immediately for re-evaluation. ED course: Patient's blood sugar remained stable in the emergency department. Patient's daughter and lexkqepi-ic-pml would like patient discharged. Patient will be discharged back to nursing facility. All questions were answered. Return precautions discussed include worsening symptoms, or any other concerns. On reevaluation patient is alert, no apparent distress, nontoxic-appearing, speaking full sentences. 03/24 12:44 Order name: Glucose ms3 03/24 12:44 Order name: CMP; Complete Time: 14:59 ms3 03/24 12:44 Order name: CBC with Diff; Complete Time: 14:59 ms3 03/24 13:20 Order name: Glucose, Ancillary Testing; Complete Time: 13:44 EDMS 03/24 15:15 Order name: Glucose, Ancillary Testing EDMS 03/24 13:32 Order name: IV Saline Lock; Complete Time: 13:32 ll1 EC:44 Rate is 83 beats/min. Rhythm is regular. QRS [place] is Normal. NH interval is normal. QRS ms3 interval is normal. Clinical impression: Normal ECG. Interpreted by me. Reviewed by me. Administered Medications: No medications were administered Point of Care Testing: Blood Glucose: 15:02 Blood Glucose: 184 mg/dL; db Ranges: Critical Glucose Levels:Adult <50 mg/dl or >400 mg/dl <40 mg/dl or >180 mg/dl Disposition Summary: 03/24/23 15:06 Discharge Ordered Notes: Location: Home ms3 Condition: Stable ms3 Diagnosis - Hypoglycemia, unspecified ms3 Followup: ms3 - With: Mehrdad Lara DO - When: 2 - 3 days - Reason: Recheck today's complaints Discharge Instructions: - Discharge Summary Sheet ms3 - Hypoglycemia ms3 Forms: - Medication Reconciliation Form ms3 - Thank You Letter ms3 - Antibiotic Education ms3 - Prescription Opioid Use ms3 - Patient Portal Instructions ms3 - Leadership Thank You Letter ms3 Signatures: Dispatcher [employer] Corinna Peng RN RN ll1 Maximo Helm DO DO ms3 Alma Rosa Dodson RN RN db
--- NOTE | 2023-03-24 15:07 | ER ---
Nurse's Notes [facility] Name: Lorenza Qiu Age: 72 yrs Sex: Female : 1950 Arrival Date: 03/24/2023 Time: 12:39 Bed 13 Private MD: Diagnosis: Hypoglycemia, unspecified Presentation: 03/24 12:30 Chief complaint: EMS states: PATIENT CONFUSED BGL 30. ORAL GLUCOSE 50 GM. BGL 58 POST db ORAL GLUCOSE. PT IS VISITING FROM OUT OF TOWN. LIVES AT [place]. Coronavirus screen: Client denies travel out of the [place] in the last 14 days. At this time, the client does not indicate any symptoms associated with coronavirus-19. Ebola Screen: Patient negative for fever greater than or equal to 101.5 degrees Fahrenheit, and additional compatible Ebola Virus Disease symptoms Patient denies exposure to infectious person. Patient denies travel to an Ebola-affected area in the 21 days before illness onset. No symptoms or risks identified at this time. Initial Sepsis Screen: Does the patient meet any 2 criteria? No. Patient's initial sepsis screen is negative. Does the patient have a suspected source of infection? No. Patient's initial sepsis screen is negative. Initial Sepsis Screen: Does the patient meet any 2 criteria?. Risk Assessment: Do you want to hurt yourself or someone else?. Risk Assessment: Do you want to hurt yourself or someone else? Patient reports no desire to harm self or others. Onset of symptoms was March 24, 2023. Care prior to arrival: Medication(s) given: Glucagon. 12:30 Method Of Arrival: EMS: [facility] db 12:30 Acuity: BETTYE 2 db Triage Assessment: 12:52 General: Appears in no apparent distress. comfortable, Behavior is calm, cooperative. db Pain: Denies pain. Neuro: Level of Consciousness is awake, alert, obeys commands, Oriented to person, place, time, situation, Speech is normal, Facial symmetry appears normal. Historical: - Allergies: 12:52 Codeine; db 12:52 Lisinopril; db - PMHx: 12:52 HYPERCHOLESTEREMIA; Diabetes mellitus; db - Immunization history:: Adult Immunizations unknown. - Social history:: Smoking status: Patient denies any tobacco usage or history of. Screenin:07 [facility] [place] ED Fall Risk Assessment (Adult) History of falling in the last 3 months, db including since admission No falls in past 3 months (0 pts) Confusion or Disorientation No (0 pts) Intoxicated or Sedated No (0 pts) Impaired Gait Yes (1 pt) Mobility Assist Device Used Yes (1 pt) Altered Elimination No (0 pt) Score/Fall Risk Level 0 - 2 = Low Risk Oriented to surroundings, Maintained a safe environment. Abuse screen: Denies threats or abuse. Denies injuries from another. Nutritional screening: No deficits noted. Tuberculosis screening: No symptoms or risk factors identified. Assessment: 13:32 Reassessment: No changes from previously documented assessment. Patient and/or family ll1 updated on plan of care and expected duration. Pain level reassessed. 14:50 Reassessment: Patient appears in no apparent distress at this time. PT STATES URINATED db IN BRIEF AND DOES NOT WANT TO PEE IN CUP. STATES IS READY TO GO. NOTIFIED DR. ROSENTHAL. PT SITTING UP AND TALKING WITH FAMILY AT BEDSIDE. General: Appears in no apparent distress. comfortable, Behavior is calm, cooperative. Neuro: Level of Consciousness is awake, alert, obeys commands, Oriented to person, place, time, situation. 15:31 Reassessment: Patient appears in no apparent distress at this time. Patient and/or db family updated on plan of care and expected duration. Pain level reassessed. Patient is alert, oriented x 3, equal unlabored respirations, skin warm/dry/pink. Patient states feeling better. Patient states symptoms have improved. Vital Signs: 12:30 BP 161 / 91; Pulse 78; Resp 18; Temp 98(O); Pulse Ox 100% ; Weight 54.43 kg; Height 5 db ft. 2 in. ; 13:48 BP 146 / 84; Pulse 83; Resp 17; Pulse Ox 100% on R/A; ll1 14:00 BP 160 / 93; Pulse 88; Resp 16; Pulse Ox 100% on R/A; db 14:30 BP 150 / 93; Pulse 83; Resp 16; Pulse Ox 99% on R/A; db 15:00 BP 160 / 90; Pulse 87; Resp 16; Pulse Ox 100% on R/A; db 12:30 Body Mass Index 21.95 (54.43 kg, 157.48 cm) db ED Course: 12:40 Patient arrived in ED. as 12:43 Maximo Rosenthal DO is Attending Physician. ms3 12:48 Alma Rosa Dodson, RN is Primary Nurse. db 12:52 Triage completed. db 12:53 Arm band placed on Patient placed in an exam room. db 13:00 Client placed on continuous cardiac and pulse oximetry monitoring. NIBP monitoring db applied. 13:29 Inserted saline lock: 22 gauge in right forearm, using aseptic technique. Blood ll1 collected. 13:32 CBC with Diff Sent. ll1 13:32 CMP Sent. ll1 13:32 Glucose Sent. ll1 15:06 Mehrdad Lara DO is Referral Physician. ms3 15:08 Patient has correct armband on for positive identification. Bed in low position. Call db light in reach. Side rails up X 1. 15:31 Provided Education on: DISCHARGE. Warm blanket given. db 15:31 No provider procedures requiring assistance completed. IV discontinued, intact, db bleeding controlled, No redness/swelling at site. Administered Medications: No medications were administered Medication: 15:31 VIS not applicable for this client. db Point of Care Testing: Blood Glucose: 15:02 Blood Glucose: 184 mg/dL; db Ranges: Outcome: 15:06 Discharge ordered by MD. ms3 15:31 Discharged to home via wheelchair, with family, db 15:31 Condition: stable 15:31 Discharge instructions given to patient, Instructed on discharge instructions, follow up and referral plans. 15:32 Patient left the ED. db Signatures: Jemma Beltre Lynsay, RN RN ll1 Maximo Rosenthal DO DO ms3 Alma Rosa Dodson, RN RN db
[2023-03-24 15:41] VITALS: BP 160/90; O2SAT 100
== END 2023-03-24 15:32 | disposition home or self-care (01) ==
LOC: ER 12:39
DX: E11.649 Type 2 diabetes mellitus with hypoglycemia without coma (principal); E78.5 Hyperlipidemia, unspecified; I10 Essential (primary) hypertension; Z88.5 Allergy status to narcotic agent; Z88.8 Allergy status to other drugs, medicaments and biological substances
CPT/HCPCS: 36415; 80053; 82947; 85025; 93005; 99284